=== PATIENT | female | born 1985 | race Caucasian/White ===

== ENCOUNTER → 2016-07-09 | Outpatient (CLI) | payer OTHER ==
[~2016-07-09] MED LIST: HYDR-5688 PO; NAPR1TAB9 PO; PRED20TA PO
[2016-07-09 14:32] LABS: BASO % 0.3 %; BASO ABS # 0.02 K/uL (0-0.2); COMPLETE YES; HEMATOCRIT 37.5 % (37-47); IG% 0.1 %; LYMPH % 30.1 %; LYMPH ABS # 2.18 K/uL (1.2-3.4); MEAN CELL VOLUME 82.8 fL (80-100); MEAN CORPUSCULAR HEMOGLOBIN 26.9 pg (25-34); MEAN CORPUSCULAR HGB CONC 32.5 g/dl (32-36); MEAN PLATELET VOLUME 9.8 fL (7.4-10.4); NEUT % 60.5 %; PLATELET COUNT 395 K/uL (130-400); RED BLOOD COUNT 4.53 M/uL (4.2-5.4); WHITE BLOOD COUNT 7.24 K/uL (4.8-10.8)
[2016-07-09 14:37] LABS: ALT/SGPT 26 U/L (12-78); AST/SGOT 19 U/L (15-37); BLOOD UREA NITROGEN 13 mg/dl (7-18); BUN/CREATININE RATIO 13.8 (10-20); CALCIUM 8.5 mg/dl (8.5-10.1); CARBON DIOXIDE 29 mmol/L (21-32); CHLORIDE 104 mmol/L (98-107); CREATININE 0.93 mg/dl (0.60-1.20); GLUCOSE 109 mg/dl (70-99); SODIUM 140 mmol/L (136-145)
[2016-07-09 14:40] LABS: ALB/GLOB RATIO 0.9 (0.9-2); ALKALINE PHOSPHATASE 74 U/L (45-117); C-REACTIVE PROTEIN 1.16 mg/dl (0-0.29); RHEUMATOID FACTOR < 10.0 U/mL (0-15)
[2016-07-09 19:06] LABS: LYME DISEASE AB IGG NEG (NEG); LYME DISEASE AB IGM NEG (NEG)
== END | disposition home or self-care (01) ==
LOC: C.LABPBG 11:41
PROVIDERS: ATTEND Family Medicine
DX: M25.50 Pain in unspecified joint (principal)

== ENCOUNTER 2021-08-02 03:23 | Observation (INO) ==
[2021-08-02] MEDS ORDERED: CEFEPIME 2,000 MG/20 ML VIAL IV STA (03:31)
--- NOTE | 2021-08-02 03:34 | Emergency Department Note ---
Impression & Plan Endocarditis ADMIT ED Provider Note HPI: The patient is a 35-year-old female with history of anxiety, bipolar disorder, history of recently diagnosed bacterial endocarditis, presents the emergency department complaining of generalized illness, weakness, and shortness of breath that has been worsening over the past 2 days since she left the [facility] AGAINST MEDICAL ADVICE where she was admitted for endocarditis and advised on a 6-week course of IV antibiotic therapy. Patient states that she became very anxious during her inpatient stay, states that she got "dope sick" and then left the hospital so that she could use IV narcotics. On arrival here to the ED the patient is anxious and tearful, she is saturating well on 2 L nasal cannula oxygen. Per EMS she was not hypoxic and this was placed for "comfort". Patient denies any current chest pain or shortness of breath, states that she got "sicker" over the past 2 days. States she was having some generalized body aches and a sensation of hot flash/subjective fever. On arrival here to the ED the patient is hypertensive, mildly tachycardic, she is otherwise in no acute distress on my initial evaluation. ROS: -General: Generalized illness, history of recently diagnosed endocarditis *10 point review systems was conducted and is otherwise negative unless stated above *Outpatient medications and allergy history reviewed PE: General: Alert HEENT: Normocephalic, atraumatic Eyes: Extraocular eye movement is intact, no scleral erythema Pulmonary: Clear to auscultation bilaterally, no wheezing Cardio: Tachycardic rate and regular rhythm GI: Abdomen is soft, nontender : No suprapubic tenderness MSK: No evidence of trauma or malformation of the extremities, no edema Skin: No evidence of rash Neuro: Alert, no focal deficits Psychiatric: Anxious/tearful cooperative cafeteria monitor: - An order was placed for continuous cardiac monitoring - Patient was noted to be in sinus rhythm with rate of 111 EKG: Rate: 102 Rhythm: Sinus tachycardia Intervals: Within normal limits ST changes: No ST elevation Time: 0336 CTA CHEST: Impression: There are small bilateral pleural effusions. Mild bilateral hilar lymphadenopathy Bilateral interlobular septal prominence suggestive of interstitial pulmonary edema 5.5 mm right upper lobe nodule seen on image 79, series 2. Radiologist: Jayme Jensen MD Medical Decision Making: Patient presented to the emergency department via EMS, she is anxious and tearful, states that she has felt unwell over the past 2 days since she signed out of [facility] AGAINST MEDICAL ADVICE where she was admitted for a prolonged course of antibiotics for endocarditis. Patient states that she does have a history of IV drug use, she left the hospital several days ago I do boys because she was feeling the need to use IV narcotics. Patient tells me her last use was earlier today when she used fentanyl via IV injection. On arrival here to the ED the patient is anxious and tearful, she is saturating well on 2 L nasal cannula oxygen. She denies any current chest pain or shortness of breath. IV was established, lab work ordered, IV fluids bolus ordered, patient was given a dose of IV Ativan for her anxiety. Lab work does not show any evidence of a significant leukocytosis, there is evidence of anemia with slightly low MCV at 78, unclear origin, patient denies any recent bleeding episodes, troponin is negative x1, EKG shows sinus tachycardia without acute ischemic changes. CT angiography of the chest does not show any evidence of pulmonary embolism or pulmonary infarct. Patient was initiated on broad-spectrum antibiotics with vancomycin and cefepime, blood cultures were drawn in the ED. Patient was given a liter of IV normal saline and none further secondary to hemodynamic stability. On my reassessment the patient is requesting methadone, this will be deferred to the inpatient service if determined appropriate. She tells me she does not have a prescription for this but she was previously on methadone at her last inpatient stay to [facility] she felt that this helped with her symptoms. I do feel that the patient should be admitted for IV antibiotics, she tells me she did have a diagnosis of endocarditis and had transesophageal echocardiogram that confirmed this at her outside hospital stay. Records will need to be obtained, patient will be admitted to the hospitalist service for IV antibiotics and cardiology consultation for further care. Patient was in agreement to the above plan she was admitted in stable condition. Diagnosis: 1. Endocarditis 2. Microcytic anemia 3. History of IV drug use 4. Anxiety Disposition: Admission Jean Serrato DO Emergency Medicine Past Med/Surg History Medical History (Updated 08/02/21 @ 05:57 by Jean Serrato DO) Anxiety History of bipolar disorder PCOS (polycystic ovarian syndrome) Surgical History History of section History of repair of ACL History of tubal ligation Family History Grandmother (Paternal) Breast cancer Grandfather (Maternal) Myocardial infarction Graves disease Grandfather (Paternal) Myocardial infarction Denies family history of Colon cancer Ovarian cancer Prostate cancer Social History Smoking Status: Current every day smoker packs per day: 1; Hx Alcohol Use: No Hx Substance Use: No marital status: Single Current Living Situation: Family Current Living Situation Comment: w/ children 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 Feels Safe at Home: Yes Dental Care, Regularly: No Physical Activity Frequency: Does not Exercise Seatbelt Use: sometimes Allergies Allergies Allergy/AdvReac Type Severity Reaction Status Date / Time No Known Allergies Allergy Unverified 03/11/19 18:48 Home Meds Home Medications Medication Instructions Recorded Confirmed No Known Home Medications 03/11/19 03/11/19 Results & Data (ED) Vital Signs Vital Signs - 24 hr 08/02/21 03:35 08/02/21 03:37 08/02/21 04:00 Temperature 37 C Temperature Source Oral Pulse Rate 89 101 H 97 H Pulse Rate from SpO2 Sensor 91 H 98 H Respiratory Rate 21 18 18 Respiratory Effort / Characteristics SOB on Exertion Respiratory Depth Shallow Blood Pressure 188/132 H Blood Pressure Mean 150 Pulse Oximetry 99 100 100 Oxygen Delivery Method Nasal Cannula Oxygen Flow Rate 2 Sepsis Recent Fever Within 48 Hours No Sepsis New/Unexplained Change in Mental Status Yes Sepsis Action Taken by Nursing No Action Required 08/02/21 04:30 08/02/21 05:30 08/02/21 05:35 Temperature Temperature Source Pulse Rate 96 H 103 H 107 H Pulse Rate from SpO2 Sensor Respiratory Rate 19 33 H 21 Respiratory Effort / Characteristics Respiratory Depth Blood Pressure 180/119 H Blood Pressure Mean 139 Pulse Oximetry Oxygen Delivery Method Oxygen Flow Rate Sepsis Recent Fever Within 48 Hours Sepsis New/Unexplained Change in Mental Status Sepsis Action Taken by Nursing 08/02/21 05:41 Temperature Temperature Source Pulse Rate Pulse Rate from SpO2 Sensor Respiratory Rate Respiratory Effort / Characteristics SOB on Exertion Respiratory Depth Blood Pressure Blood Pressure Mean Pulse Oximetry Oxygen Delivery Method Oxygen Flow Rate Sepsis Recent Fever Within 48 Hours Sepsis New/Unexplained Change in Mental Status Sepsis Action Taken by Nursing Laboratory Data Result diagrams: 08/02/21 03:30 08/02/21 03:30 Lab Results 08/02/21 08/02/21 08/02/21 Range/Units 03:30 03:30 03:30 WBC 6.53 (4.8-10.8) K/uL RBC 3.71 L (4.2-5.4) M/uL Hgb 8.4 L (12.0-16.0) g/dL Hct 29.2 L (37-47) % MCV 78.7 L (80-100) fL MCH 22.6 L (25-34) pg MCHC 28.8 L (32-36) g/dL RDW Std Deviation 48.5 H (36.4-46.3) fL RDW Coeff of Alexia 16.8 H (11.5-14.5) % Plt Count 525 H (130-400) K/uL MPV 8.8 (7.4-10.4) fL Immature Gran % (Auto) 0.3 % Neut % (Auto) 63.3 % Lymph % (Auto) 27.6 % [place] % (Auto) 5.7 % Eos % (Auto) 2.6 % Baso % (Auto) 0.5 % Neut # (Auto) 4.14 (1.4-6.5) K/uL Lymph # (Auto) 1.80 (1.2-3.4) K/uL [place] # (Auto) 0.37 (0.11-0.59) K/uL Eos # (Auto) 0.17 (0-0.5) K/uL Baso # (Auto) 0.03 (0-0.2) K/uL Immature Gran # (Auto) 0.02 (0.00-0.02) K/uL Hypochromasia Present PT 11.0 (9.0-12.0) Seconds INR 1.1 (0.9-1.1) APTT 21.0 (21.0-31.0) Seconds PTT Ratio 0.8 Sodium 137 (136-145) mmol/L Potassium 3.5 (3.5-5.1) mmol/L Chloride 102 (98-107) mmol/L Carbon Dioxide 28 (21-32) mmol/L Anion Gap 7 (3-11) BUN 17 (6-23) mg/dl Creatinine 0.75 (0.6-1.2) mg/dl Est Cr Clr Drug Dosing 151.1 ml/min Est GFR ( Amer) 120.5 ml/min Est GFR (Non-Af Amer) 104.0 ml/min BUN/Creatinine Ratio 22.7 H (10-20) Glucose 100 H (70-99(Fasting)) mg/dl Lactate (0.4-2.0) mmol/L Calcium 8.6 (8.5-10.1) mg/dl Magnesium 1.9 (1.7-2.4) mg/dl Total Bilirubin 0.5 (0.2-1.0) mg/dl AST 12 L (13-39) U/L ALT 7 (7-52) U/L Alkaline Phosphatase 56 (34-104) U/L Troponin I 0.03 (0-0.04) ng/ml Total Protein 6.7 (6.0-8.3) gm/dl Albumin 2.8 L (3.4-5.0) gm/dl Globulin 3.9 (2.5-4.0) gm/dl Albumin/Globulin Ratio 0.7 L (0.9-2) Procalcitonin (0-0.5) ng/ml SARS-CoV-2, RNA, NAAT (NEGATIVE) 08/02/21 08/02/21 08/02/21 Range/Units 03:30 03:50 04:20 WBC (4.8-10.8) K/uL RBC (4.2-5.4) M/uL Hgb (12.0-16.0) g/dL Hct (37-47) % MCV (80-100) fL MCH (25-34) pg MCHC (32-36) g/dL RDW Std Deviation (36.4-46.3) fL RDW Coeff of Alexia (11.5-14.5) % Plt Count (130-400) K/uL MPV (7.4-10.4) fL Immature Gran % (Auto) % Neut % (Auto) % Lymph % (Auto) % [place] % (Auto) % Eos % (Auto) % Baso % (Auto) % Neut # (Auto) (1.4-6.5) K/uL Lymph # (Auto) (1.2-3.4) K/uL [place] # (Auto) (0.11-0.59) K/uL Eos # (Auto) (0-0.5) K/uL Baso # (Auto) (0-0.2) K/uL Immature Gran # (Auto) (0.00-0.02) K/uL Hypochromasia PT (9.0-12.0) Seconds INR (0.9-1.1) APTT (21.0-31.0) Seconds PTT Ratio Sodium (136-145) mmol/L Potassium (3.5-5.1) mmol/L Chloride (98-107) mmol/L Carbon Dioxide (21-32) mmol/L Anion Gap (3-11) BUN (6-23) mg/dl Creatinine (0.6-1.2) mg/dl Est Cr Clr Drug Dosing ml/min Est GFR ( Amer) ml/min Est GFR (Non-Af Amer) ml/min BUN/Creatinine Ratio (10-20) Glucose (70-99(Fasting)) mg/dl Lactate 0.8 (0.4-2.0) mmol/L Calcium (8.5-10.1) mg/dl Magnesium (1.7-2.4) mg/dl Total Bilirubin (0.2-1.0) mg/dl AST (13-39) U/L ALT (7-52) U/L Alkaline Phosphatase (34-104) U/L Troponin I (0-0.04) ng/ml Total Protein (6.0-8.3) gm/dl Albumin (3.4-5.0) gm/dl Globulin (2.5-4.0) gm/dl Albumin/Globulin Ratio (0.9-2) Procalcitonin 0.19 (0-0.5) ng/ml SARS-CoV-2, RNA, NAAT NEGATIVE (NEGATIVE) Administered Medications Vancomycin HCl 2,000 mg/ (Sodium Chloride) 540 mls @ 200 mls/hr IV ONE STA Stop: 08/02/21 07:23 Last Admin: 08/02/21 05:33 Dose: 200 mls/hr Documented by: [id number] Discontinued Medications Sodium Chloride (Nss 1000ml) 1,000 mls @ 999 mls/hr IV .[id number] SHIRLEY Stop: 08/02/21 04:45 Last Admin: 08/02/21 05:35 Dose: 999 mls/hr Documented by: [id number] Cefepime HCl (Maxipime) 2,000 mg in 20 mls @ 5 mls/min IV NOW STA; Protocol Stop: 08/02/21 03:34 Last Admin: 08/02/21 04:04 Dose: 5 mls/min Documented by: [id number] Lorazepam (Ativan) 1 mg in 2 mls @ 2 mls/min IV NOW STA Stop: 08/02/21 05:21 Last Admin: 08/02/21 05:31 Dose: 2 mls/min Documented by: [id number] Ioversol (Optiray 320 125ml) 119 ml IV ONCE ONE Stop: 08/02/21 05:13 Last Admin: 08/02/21 05:12 Dose: 1 ml Documented by: [id number] Discharge Plan Visit Data Chief Complaint: Infection Stated Complaint: BREATHING DIFFICULTY ED Provider: Jean Serrato Discharge Problem: Endocarditis Forms Stand Alone Forms: [facility] Prescriptions Prescriptions: No Action No Known Home Medications RF: 0 Referrals Referrals: Stacey Arce MD [Primary Care Provider] - Discharge Problem: Endocarditis Qualifiers: Endocarditis type: infective Infective endocarditis organism: unspecified organism Chronicity: subacute Qualified Code(s): I33.0 - Acute and subacute infective endocarditis
[2021-08-02] MEDS ORDERED: SODIUM CHLORIDE 0.9% 1000ML 1,000 ML IV SCH (03:45)
[2021-08-02] MEDS ORDERED: VANCOMYCIN CONSULT ACTIVE PRN (03:52)
[2021-08-02 03:55] LABS: INR 1.1 (0.9-1.1); Partial Thromboplastin Ratio 0.8
[2021-08-02] MEDS ORDERED: VANCOMYCIN HCL 2,000 MG in SODIUM CHLORIDE 0.9% 500 ML IV SCH (04:00)
[2021-08-02 04:05] LABS: Troponin I 0.03 ng/ml (0-0.04)
[2021-08-02 04:16] LABS: Albumin Globulin Ratio 0.7 (0.9-2); Albumin Level 2.8 gm/dl (3.4-5.0); BUN Creatinine Ratio 22.7 (10-20); Bilirubin,Total 0.5 mg/dl (0.2-1.0); Calcium 8.6 mg/dl (8.5-10.1); Creatinine Clr Calc Pharmacy 151.1 ml/min; Est GFR (African American) 120.5 ml/min; Globulin 3.9 gm/dl (2.5-4.0); Magnesium 1.9 mg/dl (1.7-2.4); Total Protein 6.7 gm/dl (6.0-8.3)
[2021-08-02 04:19] LABS: Hematocrit (blood only) 29.2 % (37-47); Hemoglobin 8.4 g/dL (12.0-16.0); Mean Corpuscular Hemoglobin 22.6 pg (25-34); Mean Corpuscular Hgb Conc 28.8 g/dL (32-36); Mean Corpuscular Volume 78.7 fL (80-100); Mean Platelet Volume 8.8 fL (7.4-10.4); Platelet Count 525 K/uL (130-400); RDW Coefficient of Variation 16.8 % (11.5-14.5); RDW Standard Deviation 48.5 fL (36.4-46.3); Red Blood Count 3.71 M/uL (4.2-5.4); White Blood Count 6.53 K/uL (4.8-10.8)
[2021-08-02 04:22] LABS: Basophils # (auto) 0.03 K/uL (0-0.2); Basophils % (auto) 0.5 %; Eosinophils # (auto) 0.17 K/uL (0-0.5); Eosinophils % (auto) 2.6 %; Hypochromasia Present; Immature Granulocytes # (auto) 0.02 K/uL (0.00-0.02); Immature Granulocytes % (auto) 0.3 %; Lymphocytes % (auto) 27.6 %; Monocytes # (auto) 0.37 K/uL (0.11-0.59); Monocytes % (auto) 5.7 %; Neutrophils # (auto) 4.14 K/uL (1.4-6.5); Neutrophils % (auto) 63.3 %
[2021-08-02] MEDS ORDERED: VANCOMYCIN HCL 2,000 MG in SODIUM CHLORIDE 0.9% 500 ML IV STA (04:42)
[2021-08-02 05:01] LABS: Potassium 3.5 mmol/L (3.5-5.1)
[2021-08-02] MEDS ORDERED: OPTIRAY 320 125ml IV ONE (05:12)
[2021-08-02] MEDS ORDERED: LORazepam 1 MG/2 ML VIAL IV STA (05:20)
--- NOTE | 2021-08-02 06:26 | History & Physical Report ---
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 Patient has been to several other healthcare facilities and has left AMA due to opioid withdrawal symptoms. Uncertain at this time when she was first diagnosed and what treatment she has received. No conduction abnormalities. She does present with a complaint of worsening shortness of breath. Does not appear to be in overt cardiac failure. -Admit to medical with telemetry -Maintain contact precautions for presumed MRSA -Follow blood cultures obtained from ER -Check ESR and CRP -Request records from [facility] to better establish timeline of diagnosis and treatments given -Will repeat echocardiogram to assess for valve failure - no murmur, no overt evidence of failure but patient is complaining of significant SOB -Daily EKG to assess for conduction abnormalities that may develop with endocarditis -Vancomycin -ID Consultation to assist with management -Discussed with patient that deferring management of this issue could lead to permanent damage to her heart, valves or . Encouraged her to stay hospitalized as long as necessary to receive appropriate treatment. (2) Opioid withdrawal: Plan: Patient with history of IV Fentanyl use - states she injects every 4 hours. Has left multiple facilities secondary to opioid withdrawal symptoms -May benefit from starting Suboxone or Subutex -Will order Clonidine 0.1mg po BID to assist with withdrawal symptoms (3) Anemia: Plan: Patient with microcytic/hypochromic anemia with Hgb of 8.4, Hct=29.4. She denies active bleeding. Was told at another facility that her blood counts were low - she thought they were 7 at that time. States that her mother has a diagnosis of Thalassemia but she is unaware of any such diagnosis in herself. -Check iron studies -Monitor CBC - transfuse for active bleed, symptomatic anemia or Hgb <7 (4) History of bipolar disorder: Plan: Patient reports feeling anxious and depressed at present. Not on medication -Would benefit from ongoing Psychiatric treatment for dual diagnosis (5) Anxiety: Plan: Presently not on any medication for anxiety -Hydroxyzine 25mg po qid as needed for anxiety Plan: F/E/N - Heplock, monitor electrolytes, regular diet as tolerated Ppx - Lovenox 40 BID for weight, BMI=46 Code - Full per discussion with patient Dispo - Admit to medical with telemetry History of Present Illness Chief Complaint: sickness Primary Care Provider: Stacey Arce MD Michelle Salcido is a 35yo C female with history of IV opiate abuse, recently diagnosed with bacterial endocarditis. She was receiving care at [facility] as well as [facility] for this issue. Unfortunately, she has left the hospital against medical advice on multiple occasions due to feeling symptoms of opioid withdrawal. 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 Is uncertain which valve is involved. She denies WILL, visual changes, rashes, lesions, edema. She does have SOB that has been worsening over the last 2-3 days as well as feeling of weakness. Patient states that her problems began "a while ago" when she injected into her right foot. She developed severe pain in her right foot then her right knee. After that she began having fevers, chills, body aches and fatigue. 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 She was treated with Methadone for 10 years. She stopped her Methadone and started using IV Fentanyl 7 months ago. She reports injecting IV Fentanyl every 3-4 hours. Allergies Allergy/AdvReac Type Severity Reaction Status Date / Time No Known Allergies Allergy Unverified 03/11/19 18:48 Home Medications Medication Instructions Recorded Confirmed Type No Known Home Medications 03/11/19 03/11/19 History Past Med/Surg History Medical History (Updated 08/02/21 @ 06:53 by Leigha Poe DO) Anemia Anxiety History of bipolar disorder PCOS (polycystic ovarian syndrome) Surgical History History of section History of repair of ACL History of tubal ligation Family History Grandmother (Paternal) Breast cancer Grandfather (Maternal) Myocardial infarction Graves disease Grandfather (Paternal) Myocardial infarction Denies family history of Colon cancer Ovarian cancer Prostate cancer Social History Smoking Status: Current every day smoker packs per day: 1; Second Hand Exposure: No; Do You Dip or Chew Tobacco: No; Tobacco Cessation Education Requested by Patient: No Hx Alcohol Use: No Hx Substance Use: Yes Last Used Substance: Days (ago) Last Used Substance Other:: 1 Substance Use Type Other:: fentanyl Preferred Language: Pakistani Communication Ability: Effective Frame Feeder Required: No Beliefs That Will Affect Care: None marital status: Single Current Living Situation: Spouse Current Living Situation Comment: w/ children 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 Resting comfortably Skin: warm, dry, intact, no rashes or lesions, No [place] lesions or [place]ers nodes noted HEENT: NC/AT, PERRL, EOMI, anicteric sclera, conjunctiva without injection, external ear normal to inspection and nontender, nares patent, moist mucus membranes, dentures in place, no oropharyngeal lesions, neck supple, trachea midline, no LAD, no thyromegaly, no JVD Heart: +S1/S2, regular, tachycardic, no m/r/g Lungs: equal air entry bilaterally, no rales/rhonchi/wheezes Abd: +BS, soft, NT/ND, no masses/organomegaly/ascites Ext: warm, 2+ pulses in UE/LE bilaterally, no clubbing/cyanosis or edema Neuro: nonfocal, patient AA&O x 4, speech intact, no facial droop, moving all extremities on command with equal strength 5/5 Results & Data Results & Data ([facility]) Vital Signs (Past 12 Hours) Vital Signs Temp Pulse Resp BP Pulse Ox 08/02/21 05:35 107 H 21 180/119 H 08/02/21 05:30 103 H 33 H 08/02/21 04:30 96 H 19 08/02/21 04:00 97 H 18 100 08/02/21 03:37 37 C 101 H 18 188/132 H 100 08/02/21 03:35 89 21 99 Laboratory Results Laboratory Results WBC 6.53 K/uL (4.8-10.8) 08/02/21 03:30 RBC 3.71 M/uL (4.2-5.4) L 08/02/21 03:30 Hgb 8.4 g/dL (12.0-16.0) L 08/02/21 03:30 Hct 29.2 % (37-47) L 08/02/21 03:30 MCV 78.7 fL (80-100) L 08/02/21 03:30 MCH 22.6 pg (25-34) L 08/02/21 03:30 MCHC 28.8 g/dL (32-36) L 08/02/21 03:30 RDW Std Deviation 48.5 fL (36.4-46.3) H 08/02/21 03:30 RDW Coeff of Alexia 16.8 % (11.5-14.5) H 08/02/21 03:30 Plt Count 525 K/uL (130-400) H 08/02/21 03:30 MPV 8.8 fL (7.4-10.4) 08/02/21 03:30 Immature Gran % (Auto) 0.3 % 08/02/21 03:30 Neut % (Auto) 63.3 % 08/02/21 03:30 Lymph % (Auto) 27.6 % 08/02/21 03:30 [place] % (Auto) 5.7 % 08/02/21 03:30 Eos % (Auto) 2.6 % 08/02/21 03:30 Baso % (Auto) 0.5 % 08/02/21 03:30 Neut # (Auto) 4.14 K/uL (1.4-6.5) 08/02/21 03:30 Lymph # (Auto) 1.80 K/uL (1.2-3.4) 08/02/21 03:30 [place] # (Auto) 0.37 K/uL (0.11-0.59) 08/02/21 03:30 Eos # (Auto) 0.17 K/uL (0-0.5) 08/02/21 03:30 Baso # (Auto) 0.03 K/uL (0-0.2) 08/02/21 03:30 Immature Gran # (Auto) 0.02 K/uL (0.00-0.02) 08/02/21 03:30 Hypochromasia Present 08/02/21 03:30 PT 11.0 Seconds (9.0-12.0) 08/02/21 03:30 INR 1.1 (0.9-1.1) 08/02/21 03:30 APTT 21.0 Seconds (21.0-31.0) 08/02/21 03:30 PTT Ratio 0.8 08/02/21 03:30 Sodium 137 mmol/L (136-145) 08/02/21 03:30 Potassium 3.5 mmol/L (3.5-5.1) 08/02/21 03:30 Chloride 102 mmol/L (98-107) 08/02/21 03:30 Carbon Dioxide 28 mmol/L (21-32) 08/02/21 03:30 Anion Gap 7 (3-11) 08/02/21 03:30 BUN 17 mg/dl (6-23) 08/02/21 03:30 Creatinine 0.75 mg/dl (0.6-1.2) 08/02/21 03:30 Est Cr Clr Drug Dosing 151.1 ml/min 08/02/21 03:30 Est GFR ( Amer) 120.5 ml/min 08/02/21 03:30 Est GFR (Non-Af Amer) 104.0 ml/min 08/02/21 03:30 BUN/Creatinine Ratio 22.7 (10-20) H 08/02/21 03:30 Glucose 100 mg/dl (70-99(Fasting)) H 08/02/21 03:30 Lactate 0.8 mmol/L (0.4-2.0) 08/02/21 03:50 Calcium 8.6 mg/dl (8.5-10.1) 08/02/21 03:30 Magnesium 1.9 mg/dl (1.7-2.4) 08/02/21 03:30 Total Bilirubin 0.5 mg/dl (0.2-1.0) 08/02/21 03:30 AST 12 U/L (13-39) L 08/02/21 03:30 ALT 7 U/L (7-52) 08/02/21 03:30 Alkaline Phosphatase 56 U/L (34-104) 08/02/21 03:30 Troponin I 0.03 ng/ml (0-0.04) 08/02/21 03:30 Total Protein 6.7 gm/dl (6.0-8.3) 08/02/21 03:30 Albumin 2.8 gm/dl (3.4-5.0) L 08/02/21 03:30 Globulin 3.9 gm/dl (2.5-4.0) 08/02/21 03:30 Albumin/Globulin Ratio 0.7 (0.9-2) L 08/02/21 03:30 Procalcitonin 0.19 ng/ml (0-0.5) 08/02/21 03:30 SARS-CoV-2, RNA, NAAT NEGATIVE (NEGATIVE) 08/02/21 04:20 ECG Additional Comments: No conduction abnormality Code Status & VTE Plan VTE Prophylaxis Plan VTE Prophylaxis will be ordered: Yes PG Care Time/CCT Total # of Minutes Spent Total Time Spent with Patient: Total time spent is greater than 50% in coordination of care (as documented) at patient's floor/unit and/or counseling patient: Coding Level of Care Code 02147 Initial Inpt Care Lvl 3 Diagnoses Endocarditis I33.0 Chronicity: subacute Endocarditis type: infective Infective endocarditis organism: unspecified organism Opioid withdrawal F11.23 Anemia D64.9 History of bipolar disorder Z86.59 Anxiety F41.9 (1) Endocarditis Chronicity: subacute Endocarditis type: infective Infective endocarditis organism: unspecified organism Qualified Code(s): I33.0 - Acute and subacute infective endocarditis
--- NOTE | 2021-08-02 08:17 | CT Scan Report ---
CT angio chest PE protocol CLINICAL HISTORY: PE, history of endocarditis TECHNIQUE: Multidetector row helical CT of the chest was performed. Coronal and sagittal reformations were obtained. Coronal and sagittal MIPS were obtained from the axial data set and were submitted fo r review. Automated dose lowering techniques and/or adjustment according to patient size were utiliz ed for this exam. Comparison: None available at the time of this dictation. FINDINGS: Lungs and pleura: Small bilateral pleural effusions. Smooth interlobular septal thickening is seen. I ncidental note is made of a 5 mm nodule in the right upper lobe (series 4 image 195). Heart and pericardium: Heart size is normal. No pericardial effusion. Vessels: No evidence of pulmonary embolism. The pulmonary trunk measures 32 mm in diameter. Mediastinum and garth: Subcentimeter lymph nodes are seen. Chest wall and lower neck: Unremarkable. Abdomen: Unremarkable. Bones: Unremarkable. IMPRESSION: 1. No evidence of pulmonary embolism. 2. Moderate pulmonary edema with interlobular septal thickening and small bilateral pleural effusion s. 3. Enlarged pulmonary trunk compatible with pulmonary hypertension. ACT 112: Negative or not required by law. Electronically signed by: Hiro Santoyo M.D. 08/02/2021 8:16 AM
[2021-08-02] MEDS ORDERED: BUPRENORPHINE/NALOXONE 2/0.5MG 1 TAB PO ONE (08:45)
[2021-08-02] MEDS ORDERED: METHADONE HCL 5 MG TAB PO STA (09:45)
[2021-08-02] MEDS ORDERED: LORazepam 0.5 MG TAB PO PRN (11:26)
--- NOTE | 2021-08-02 16:46 | Med Student Discharge Summary ---
Date of Service August 02, 2021 Admission HPI Per Admitting Provider Michelle Salcido is a 35yo C female with history of IV opiate abuse, recently diagnosed with bacterial endocarditis. She was receiving care at [facility] as well as [facility] for this issue. Unfortunately, she has left the hospital against medical advice on multiple occasions due to feeling symptoms of opioid withdrawal. 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 Is uncertain which valve is involved. She denies WILL, visual changes, rashes, lesions, edema. She does have SOB that has been worsening over the last 2-3 days as well as feeling of weakness. Patient states that her problems began "a while ago" when she injected into her right foot. She developed severe pain in her right foot then her right knee. After that she began having fevers, chills, body aches and fatigue. 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 She was treated with Methadone for 10 years. She stopped her Methadone and started using IV Fentanyl 7 months ago. She reports injecting IV Fentanyl every 3-4 hours. Admission Exam (Per Admitting) Constitutional WD/WN, vitals as above Eyes PERRL, conjunctivae normal, anicteric sclerae Neck trachea midline, no thyromegaly Respiratory + respiratory distress Cardiovascular Rate/Rhythm: + tachycardic Psychiatric Affect: + anxious affect Discharge Data Consultations 08/02/21 05:51 ED Decision to Admit Stat 08/02/21 06:21 Consult Health Information Management Routine Hospital Course (1) Endocarditis: (2) Opioid withdrawal: (3) Anxiety: Michelle is a 35 year old woman with a history of anxiety disorder, bipolar type I, IV fentanyl use, and recent diagnosis of MRSA endocarditis who presented to the emergency department with shortness of breath. Michelle eloped around noon on 08/02/21. When her nurse went to check on her, she was not in her room or bathroom. Security searched the hospital and could not find her. There is concern that she left with her IV line in, charge nurse is aware. Shortness of breath - Chest CTA showed no evidence of PE, moderate pulmonary edema and small bilateral pleural effusions, pulmonary HTN MRSA endocarditis - Per [facility], patient has MRSA endocarditis - Patient was given 1 dose of cefepime/vancomycin Opioid withdrawal symptoms and anxiety - patient was very distressed by her withdrawal symptoms - Patient received 10 mg methadone and 1.5 mg of lorazepam; requested and then refused suboxone Discharge Plan Discharge Items Patient Disposition: Against Medical Advice Reason For Visit: ENDOCARDITIS Follow-up/Referrals: Stacey Arce MD [Primary Care Provider] - Stand-Alone Forms: My [facility] Improve Digital, Smoking Cessation Medications and DC Order Prescriptions: No Action No Known Home Medications RF: 0 Discharge Orders: Left Against Medical Advice (Routine); Ordered 08/02/21 Ordered By: Jean Kingston Admission Data Admit Date/Time: 08/02/21 06:21 Attending Provider: Chika Jensen Admit Provider: Leigha Poe Primary Care Provider: Stacey Arce Other Providers: Leigha Poe Supervising Attestation Medical Student Supervision Note: I was personally present during medical student patient encounter and independently interviewed and examined the patient and verified the rojo history and physical, reviewed labs and image studies, discussed the case with Jon Santiago and agree with the findings and care plan. Shortness of breath - with noted pleural effusion/pulmonary hypertension - ordered EChO - not done before patient eloped. MRSA Infective endocarditis- ? diastolic at tricuspid region. was kept on IV vanco while at the hospital Known h/o Nocturnal hypoxia with snoring - in setting of ?pulmonary HTN - should get sleep study when able. IVDU - Needs helps and aims to get clean but with strong withdrawal symptoms and eloped. Bipolar ds with anxiety - has been on multiple meds in past - didn't help much and some snowed her. Was given lorazepam to help with anxiety Results & Data Laboratory Data Result diagrams: 08/02/21 03:30 08/02/21 03:30 Lab Results 08/02/21 08/02/21 08/02/21 Range/Units 03:30 03:30 03:30 WBC 6.53 (4.8-10.8) K/uL RBC 3.71 L (4.2-5.4) M/uL Hgb 8.4 L (12.0-16.0) g/dL Hct 29.2 L (37-47) % MCV 78.7 L (80-100) fL MCH 22.6 L (25-34) pg MCHC 28.8 L (32-36) g/dL RDW Std Deviation 48.5 H (36.4-46.3) fL RDW Coeff of Alexia 16.8 H (11.5-14.5) % Plt Count 525 H (130-400) K/uL MPV 8.8 (7.4-10.4) fL Immature Gran % (Auto) 0.3 % Neut % (Auto) 63.3 % Lymph % (Auto) 27.6 % Wilkes % (Auto) 5.7 % Eos % (Auto) 2.6 % Baso % (Auto) 0.5 % Neut # (Auto) 4.14 (1.4-6.5) K/uL Lymph # (Auto) 1.80 (1.2-3.4) K/uL Wilkes # (Auto) 0.37 (0.11-0.59) K/uL Eos # (Auto) 0.17 (0-0.5) K/uL Baso # (Auto) 0.03 (0-0.2) K/uL Immature Gran # (Auto) 0.02 (0.00-0.02) K/uL Hypochromasia Present PT 11.0 (9.0-12.0) Seconds INR 1.1 (0.9-1.1) APTT 21.0 (21.0-31.0) Seconds PTT Ratio 0.8 Sodium 137 (136-145) mmol/L Potassium 3.5 (3.5-5.1) mmol/L Chloride 102 (98-107) mmol/L Carbon Dioxide 28 (21-32) mmol/L Anion Gap 7 (3-11) BUN 17 (6-23) mg/dl Creatinine 0.75 (0.6-1.2) mg/dl Est Cr Clr Drug Dosing 151.1 ml/min Est GFR ( Amer) 120.5 ml/min Est GFR (Non-Af Amer) 104.0 ml/min BUN/Creatinine Ratio 22.7 H (10-20) Glucose 100 H (70-99(Fasting)) mg/dl Lactate (0.4-2.0) mmol/L Calcium 8.6 (8.5-10.1) mg/dl Magnesium 1.9 (1.7-2.4) mg/dl Total Bilirubin 0.5 (0.2-1.0) mg/dl AST 12 L (13-39) U/L ALT 7 (7-52) U/L Alkaline Phosphatase 56 (34-104) U/L Troponin I 0.03 (0-0.04) ng/ml B-Natriuretic Peptide (0-100) pg/ml Total Protein 6.7 (6.0-8.3) gm/dl Albumin 2.8 L (3.4-5.0) gm/dl Globulin 3.9 (2.5-4.0) gm/dl Albumin/Globulin Ratio 0.7 L (0.9-2) Procalcitonin (0-0.5) ng/ml SARS-CoV-2, RNA, NAAT (NEGATIVE) 08/02/21 08/02/21 08/02/21 Range/Units 03:30 03:50 04:20 WBC (4.8-10.8) K/uL RBC (4.2-5.4) M/uL Hgb (12.0-16.0) g/dL Hct (37-47) % MCV (80-100) fL MCH (25-34) pg MCHC (32-36) g/dL RDW Std Deviation (36.4-46.3) fL RDW Coeff of Alexia (11.5-14.5) % Plt Count (130-400) K/uL MPV (7.4-10.4) fL Immature Gran % (Auto) % Neut % (Auto) % Lymph % (Auto) % Wilkes % (Auto) % Eos % (Auto) % Baso % (Auto) % Neut # (Auto) (1.4-6.5) K/uL Lymph # (Auto) (1.2-3.4) K/uL Wilkes # (Auto) (0.11-0.59) K/uL Eos # (Auto) (0-0.5) K/uL Baso # (Auto) (0-0.2) K/uL Immature Gran # (Auto) (0.00-0.02) K/uL Hypochromasia PT (9.0-12.0) Seconds INR (0.9-1.1) APTT (21.0-31.0) Seconds PTT Ratio Sodium (136-145) mmol/L Potassium (3.5-5.1) mmol/L Chloride (98-107) mmol/L Carbon Dioxide (21-32) mmol/L Anion Gap (3-11) BUN (6-23) mg/dl Creatinine (0.6-1.2) mg/dl Est Cr Clr Drug Dosing ml/min Est GFR ( Amer) ml/min Est GFR (Non-Af Amer) ml/min BUN/Creatinine Ratio (10-20) Glucose (70-99(Fasting)) mg/dl Lactate 0.8 (0.4-2.0) mmol/L Calcium (8.5-10.1) mg/dl Magnesium (1.7-2.4) mg/dl Total Bilirubin (0.2-1.0) mg/dl AST (13-39) U/L ALT (7-52) U/L Alkaline Phosphatase (34-104) U/L Troponin I (0-0.04) ng/ml B-Natriuretic Peptide (0-100) pg/ml Total Protein (6.0-8.3) gm/dl Albumin (3.4-5.0) gm/dl Globulin (2.5-4.0) gm/dl Albumin/Globulin Ratio (0.9-2) Procalcitonin 0.19 (0-0.5) ng/ml SARS-CoV-2, RNA, NAAT NEGATIVE (NEGATIVE) 08/02/21 Range/Units 11:58 WBC (4.8-10.8) K/uL RBC (4.2-5.4) M/uL Hgb (12.0-16.0) g/dL Hct (37-47) % MCV (80-100) fL MCH (25-34) pg MCHC (32-36) g/dL RDW Std Deviation (36.4-46.3) fL RDW Coeff of Alexia (11.5-14.5) % Plt Count (130-400) K/uL MPV (7.4-10.4) fL Immature Gran % (Auto) % Neut % (Auto) % Lymph % (Auto) % Wilkes % (Auto) % Eos % (Auto) % Baso % (Auto) % Neut # (Auto) (1.4-6.5) K/uL Lymph # (Auto) (1.2-3.4) K/uL Wilkes # (Auto) (0.11-0.59) K/uL Eos # (Auto) (0-0.5) K/uL Baso # (Auto) (0-0.2) K/uL Immature Gran # (Auto) (0.00-0.02) K/uL Hypochromasia PT (9.0-12.0) Seconds INR (0.9-1.1) APTT (21.0-31.0) Seconds PTT Ratio Sodium (136-145) mmol/L Potassium (3.5-5.1) mmol/L Chloride (98-107) mmol/L Carbon Dioxide (21-32) mmol/L Anion Gap (3-11) BUN (6-23) mg/dl Creatinine (0.6-1.2) mg/dl Est Cr Clr Drug Dosing ml/min Est GFR ( Amer) ml/min Est GFR (Non-Af Amer) ml/min BUN/Creatinine Ratio (10-20) Glucose (70-99(Fasting)) mg/dl Lactate (0.4-2.0) mmol/L Calcium (8.5-10.1) mg/dl Magnesium (1.7-2.4) mg/dl Total Bilirubin (0.2-1.0) mg/dl AST (13-39) U/L ALT (7-52) U/L Alkaline Phosphatase (34-104) U/L Troponin I (0-0.04) ng/ml B-Natriuretic Peptide 170 H (0-100) pg/ml Total Protein (6.0-8.3) gm/dl Albumin (3.4-5.0) gm/dl Globulin (2.5-4.0) gm/dl Albumin/Globulin Ratio (0.9-2) Procalcitonin (0-0.5) ng/ml SARS-CoV-2, RNA, NAAT (NEGATIVE) Chest CTA 08/02/21 03:32 CT angio chest PE protocol CLINICAL HISTORY: PE, history of endocarditis TECHNIQUE: Multidetector row helical CT of the chest was performed. Coronal and sagittal reformations were obtained. Coronal and sagittal MIPS were obtained from the axial data set and were submitted for review. Automated dose lowering techniques and/or adjustment according to patient size were utilized for this exam. Comparison: None available at the time of this dictation. FINDINGS: Lungs and pleura: Small bilateral pleural effusions. Smooth interlobular septal thickening is seen. Incidental note is made of a 5 mm nodule in the right upper lobe (series 4 image 195). Heart and pericardium: Heart size is normal. No pericardial effusion. Vessels: No evidence of pulmonary embolism. The pulmonary trunk measures 32 mm in diameter. Mediastinum and garth: Subcentimeter lymph nodes are seen. Chest wall and lower neck: Unremarkable. Abdomen: Unremarkable. Bones: Unremarkable. IMPRESSION: 1. No evidence of pulmonary embolism. 2. Moderate pulmonary edema with interlobular septal thickening and small bilateral pleural effusions. 3. Enlarged pulmonary trunk compatible with pulmonary hypertension. ACT 112: Negative or not required by law. Electronically signed by: Hiro Santoyo M.D. 08/02/2021 8:16 AM Administered Medications Discontinued Medications Buprenorphine/Naloxone (Buprenorphine/Naloxone 2/0.5mg 1 Tab) 2 tab PO 0845 ONE Stop: 08/02/21 08:46 Last Admin: 08/02/21 08:56 Dose: 2 tab Documented by: [id number] Sodium Chloride (Nss 1000ml) 1,000 mls @ 999 mls/hr IV .Q1H1M SHIRLEY Stop: 08/02/21 04:45 Last Infusion: 08/02/21 06:42 Dose: 0 mls/hr Documented by: [id number] Admin: 08/02/21 05:35 Dose: 999 mls/hr Documented by: [id number] Cefepime HCl (Maxipime) 2,000 mg in 20 mls @ 5 mls/min IV NOW STA; Protocol Stop: 08/02/21 03:34 Last Admin: 08/02/21 04:04 Dose: 5 mls/min Documented by: [id number] Vancomycin HCl 2,000 mg/ (Sodium Chloride) 540 mls @ 200 mls/hr IV ONE STA Stop: 08/02/21 07:23 Last Infusion: 08/02/21 06:37 Dose: 0 mls/hr Documented by: [id number] Admin: 08/02/21 05:33 Dose: 200 mls/hr Documented by: [id number] Lorazepam (Ativan) 1 mg in 2 mls @ 2 mls/min IV NOW STA Stop: 08/02/21 05:21 Last Admin: 08/02/21 05:31 Dose: 2 mls/min Documented by: [id number] Ioversol (Optiray 320 125ml) 119 ml IV ONCE ONE Stop: 08/02/21 05:13 Last Admin: 08/02/21 05:12 Dose: 1 ml Documented by: [id number] Lorazepam (Lorazepam 0.5 Mg Tab) 0.5 mg PO TID PRN PRN Reason: Anxiety Stop: 09/01/21 11:25 Last Admin: 08/02/21 11:42 Dose: 0.5 mg Documented by: [id number] Methadone HCl (Methadone Hcl 5 Mg Tab) 10 mg PO NOW STA Stop: 08/02/21 09:46 Last Admin: 08/02/21 09:53 Dose: 10 mg Documented by: [id number] Discharge Exam Constitutional WD/WN, vitals as above Eyes PERRL, conjunctivae normal, anicteric sclerae Neck trachea midline, no thyromegaly Respiratory + respiratory distress Cardiovascular Rate/Rhythm: + tachycardic Psychiatric Affect: + anxious affect
--- NOTE | 2021-08-03 23:50 | Electrocardiogram Report ---
Test Reason : Blood Pressure : / mmHG Vent. Rate : 102 BPM Atrial Rate : 102 BPM P-R Int : 128 ms QRS Dur : 084 ms QT Int : 354 ms P-R-T Axes : 070 058 025 degrees QTc Int : 461 ms Sinus tachycardia Otherwise normal ECG No previous ECGs available Confirmed by Leonard Tovar ([id number]) on 08/03/2021 11:50:44 PM Referred By: REFERRED SELF Confirmed By:Leonard Tovar
== END 2021-08-02 13:55 | disposition left against medical advice (07) ==
LOC: ED 03:23 → EDINP 06:21 → INTOOBSV 06:21 → SUATTDRO 06:21 → EDINP 06:40

== ENCOUNTER 2022-04-18 21:59 | Observation (INO) ==
[2022-04-18] MEDS ORDERED: LORazepam 1 MG TAB PO STA (23:18)
[2022-04-18] MEDS ORDERED: ACETAMINOPHEN 1,000 MG/100 ML VIAL IV STA (23:18)
[2022-04-18 23:31] LABS: Basophils # (auto) 0.06 K/uL (0-0.2); Basophils % (auto) 0.6 %; Eosinophils # (auto) 0.36 K/uL (0-0.50); Eosinophils % (auto) 3.7 %; Hematocrit (blood only) 32.7 % (34.1-44.9); Hemoglobin 9.9 g/dl (12.0-16.0); Immature Granulocytes # (auto) 0.03 K/uL (0.00-0.02); Immature Granulocytes % (auto) 0.3 %; Lymphocytes # (auto) 3.27 K/uL (1.2-3.4); Lymphocytes % (auto) 33.6 %; Mean Corpuscular Hgb Conc 30.3 g/dL (32.0-36.0); Mean Corpuscular Volume 79.4 fL (80.0-100.0); Mean Platelet Volume 8.9 fL (9.4-12.3); Monocytes # (auto) 0.48 K/uL (0.24-0.82); Monocytes % (auto) 4.9 %; Neutrophils # (auto) 5.52 K/uL (1.4-6.5); Neutrophils % (auto) 56.9 %; Platelet Count 623 K/uL (130-400); RDW Standard Deviation 37.2 fL (36.4-46.3); Red Blood Count 4.12 M/uL (3.93-5.22); White Blood Count 9.72 K/ul (4.8-10.8)
[2022-04-18 23:44] LABS: Partial Thromboplastin Time 27.7 Seconds (21.0-31.0); Prothrombin Time 10.4 Seconds (9.0-12.0)
[2022-04-18 23:53] LABS: Alanine Aminotransferase 22 U/L (7-52); Albumin Globulin Ratio 0.8 (0.9-2); Albumin Level 3.6 gm/dl (3.4-5.0); Alkaline Phosphatase 77 U/L (34-104); Anion Gap 6 (3-11); Aspartate Aminotransferase 17 U/L (13-39); BUN Creatinine Ratio 17.7 (10-20); Bilirubin,Total 0.2 mg/dl (0.2-1.0); Blood Urea Nitrogen 14 mg/dl (6-23); C Reactive Protein 3.25 mg/dl (0-0.5); Calcium 9.3 mg/dl (8.5-10.1); Carbon Dioxide 30 mmol/L (21-32); Chloride 101 mmol/L (98-107); Est GFR (African American) 112.4 ml/min; Globulin 4.8 gm/dl (2.5-4.0); Glucose 86 mg/dl (70-99(Fasting)); Sodium 137 mmol/L (136-145); Total Protein 8.4 gm/dl (6.0-8.3)
[2022-04-18] MEDS ORDERED: LORazepam 1 MG/1 ML SYR IV STA (23:54)
[2022-04-18 23:57] LABS: Troponin I High Sensitivity 2.8 pg/ml (0-14)
[2022-04-19 00:12] LABS: Appearance Urine Cloudy (Clear); Bacteria Urine Automated 1+ (Negative); Bilirubin Urine Negative (Negative); Blood Urine Negative (Negative); Color Urine Yellow; Epithelial Cell Urine Auto >30 /lpf (0-5); Glucose Urine UA Negative (Negative); Ketones Urine Trace (Negative); Leukocyte Esterase Urine Negative (Negative); Nitrite Urine Negative (Negative); Protein Urine Negative (Negative); RBC Urine Automated 0-4 /hpf (0-4); Specific Gravity Urine 1.024 (1.000-1.030); Urobilinogen Urine Negative (Negative)
[2022-04-19] MEDS ORDERED: GADOBUTROL 65ML VIAL IV ONE (00:18)
[2022-04-19 00:53] LABS: Amphetamines+Metham, Urine Neg (Neg); Barbiturates, Urine Neg (Neg); Benzodiazepine, Urine Neg (Neg); Cocaine, Urine Neg (Neg); MDMA (Ecstacy), Urine Pos (Neg); Methadone, Urine Pos (Neg); Opiate, Urine Neg (Neg); Phencyclidine, Urine Neg (Neg)
--- NOTE | 2022-04-19 04:41 | History & Physical Report ---
Date of Service April 19, 2022 Assessment & Plan (1) Stroke-like symptoms: Plan: 36 y/o female w/ PMHx of opioid use disorder, MRSA bacteremia and mitral valve endocarditis, pelvic abscess, L5-S1 discitis/osteomyelitis, L inferior cerebellar stroke, splenic abscess, and e faecalis bacteremia who was admitted to [facility] this summer for right MCA CVA 11/11 w/ residual R facial droop and dysarthria, and transferred to [facility], discharged end of December who presented w/ stroke like symptoms (slurred speech and facial droop w/o motor/sensory weakness) evening of 04/17/22. - at admission, no focal neuro deficits noted though patient was sleepy/not full y cooperative; limited exam - hx of bacterial endocarditis w/ CVA from possible septic emboli noted - will cover empirically w/ dapto/zosyn; will adequately cover MRSA and e faecalis. 81.6kg (ED) today vs 134kg 07/2021. repeat weight ordered, consider repeating weight after arrives on PCU floor - check TTE. consider cardiology consult regarding possible FARZANEH if indicated - blood cultures pending - MRI statrad reviewed; concern for superimposed stroke vs infection vs abscess. will f/u official read - patient was treated at [facility] as per HPI for endocarditis, bacteremic, and stroke. dayshift to reach out to [facility] team regarding current presentation (2) Drug abuse and dependence: Plan: - states takes methadone 80mg qam - no records in pdmp - patient states follows [facility] in [place] - pharmacy to verify by calling [facility] before methadone is ordered (3) History of bipolar disorder: Plan: - hold home regimen until mentation is still being assessed (4) Anxiety: Plan: - hold home regimen until mentation is still being assessed Plan FEN/GI: NPO. Maintenance fluids. ppx: scds code: full dispo: pcu History of Present Illness Chief Complaint: stroke-like symptoms Primary Care Provider: Stacey Arce MD 36 y/o female w/ PMHx of opioid use disorder, MRSA bacteremia and mitral valve endocarditis, pelvic abscess, L5-S1 discitis/osteomyelitis, L inferior cerebellar stroke, splenic abscess, and e faecalis bacteremia who was admitted to [facility] this summer for right MCA CVA 11/11 w/ residual R facial droop and dysarthria, and transferred to [facility], discharged end of December who presented w/ stroke like symptoms (slurred speech and facial droop w/o motor/sensory weakness) evening of 04/17/22. She went to [place] ED and had a head CT. The morning overread recommended MRI f/u. Patient had missed her slot at [place] and as a result presents to [facility] for workup. MRI statrad at [facility] shows possible subacute infarct vs infection superimposed on chronic right MCA territory infarct, less likely abscess. Patient complains of bilateral low back pain. History limited: she is a poor historian and is drowsy. She denies other complaints such as fever/chills, chest pain, SOB, or urinary symptoms. She denies recent substance use. She states her speech has improved. She denies headache or weakness. ED course: Ativan 1mg IV. Lorazepam 1mg. BP soft at 88/66 at time of exam. wbc 9.72. Hb 9.9. esr 68. BMP wnl. lactate 1.1. liver panel wnl. procal <0.05. UA 1+ bacteria. uds pos for methadone, mdma. bc pending. Allergies Allergy/AdvReac Type Severity Reaction Status Date / Time No Known Allergies Allergy Unverified 03/25/22 10:10 Home Medications Medication Instructions Recorded Confirmed Type acetaminophen 500 mg tablet 500 mg PO QID PRN 02/05/22 03/25/22 History (Tylenol Extra Strength) furosemide 20 mg tablet (Lasix) 20 mg PO DAILY 02/05/22 03/25/22 History polyethylene glycol 3350 17 17 g PO DAILY 02/05/22 03/25/22 History gram/dose oral powder (Miralax) potassium chloride 20 mEq 20 meq PO DAILY 02/05/22 03/25/22 History tablet,extended release sennosides 8.6 mg tablet 17.2 mg PO BID 02/05/22 03/25/22 History (Evac-U-Gen (sennosides)) Wheelchair (Manual) #1 ea 03/25/22 03/25/22 Rx sertraline 100 mg tablet 150 mg PO DAILY 90 days #135 tabs 03/25/22 03/25/22 Rx magnesium oxide 400 mg (241.3 mg 600 mg PO BID #270 tabs 03/27/22 Rx magnesium) tablet melatonin 3 mg capsule 6 mg PO HS PRN sleep #180 caps 03/27/22 Rx trazodone 50 mg tablet 50 mg PO HS #30 tabs 03/27/22 Rx baclofen 5 mg tablet 5 mg PO TID #90 tabs 04/10/22 Rx gabapentin 300 mg capsule 300 mg PO TID #90 caps 04/17/22 Rx Hospital Bed Homecare (Hospital #1 ea 04/18/22 04/18/22 Rx Bed) Wheelchair (Manual) (Manual #1 ea 04/18/22 04/18/22 Rx Wheelchair) miscellaneous medical supply 1 ea miscellaneous PRN #1 ea 04/18/22 04/18/22 Rx Past Med/Surg History Medical History Anemia Anxiety Drug abuse and dependence 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 History of bipolar disorder PCOS (polycystic ovarian syndrome) Surgical History History of section History of repair of ACL History of tubal ligation Family History Grandmother (Paternal) Breast cancer Grandfather (Maternal) Myocardial infarction Graves disease Grandfather (Paternal) Myocardial infarction Denies family history of Colon cancer Ovarian cancer Prostate cancer Social History Smoking Status: Current every day smoker packs per day: 1; Second Hand Exposure: No; Hx Alcohol Use: No Hx Substance Use: Yes Last Used Substance: Days (ago) Last Used Substance Other:: clean X 9 months per patient Substance Use Type Other:: fentanyl Preferred Language: Occitan Communication Ability: Effective Car Coupler Required: No Beliefs That Will Affect Care: None marital status: Single Current Living Situation: Family Current Living Situation Comment: boyfriend and her 3 daughters current occupational status: employed current occupation: [employer] Feels Safe at Home: Yes Dental Care, Regularly: No Physical Activity Frequency: Does not Exercise Seatbelt Use: sometimes Assistive Devices: Cane, Denture - Upper, Glasses, Walker and Wheelchair Review of Systems Review of Systems: All systems reviewed & are unremarkable except as noted in HPI & below (somewhat limited given sleepiness and lack of cooperation) Physical Exam Physical Exam: General: Grossly A&O. NAD. Droswy, Falls back asleep. HEENT: Atraumatic, normocephalic. Will not open eyes long enough for eye movements. Pupils symmetric in size. Pulm: CTAB. -wheezes, -rales, -rhonchi. No respiratory distress. Cardiac: RRR, no murmur noted. Integ: Poor hygiene. Dandruff noted. Neuro: No facial droop. Facial sensation and motor intact. Speech appears fluent. Normal strength and sensation of extrem. Results & Data Results & Data ([facility]) Vital Signs (Past 12 Hours) Vital Signs Temp Pulse Pulse Resp BP BP Pulse Ox 04/19/22 03:00 76 16 104/59 L 96 04/19/22 02:00 79 14 96/62 L 95 04/19/22 01:00 80 14 101/61 93 04/18/22 22:34 86 22 96 04/18/22 22:04 86 16 95 04/18/22 22:04 04/18/22 22:00 36.1 C L 84 20 124/79 97 O2 Del Method 04/19/22 03:00 Room Air 04/19/22 02:00 Room Air 04/19/22 01:00 Room Air 04/18/22 22:34 Room Air 04/18/22 22:04 04/18/22 22:04 Room Air 04/18/22 22:00 Room Air Laboratory Results Cardiac Enzymes 04/18/22 Range/Units 23:18 AST 17 (13-39) U/L Troponin I High Sens 2.8 (0-14) pg/ml Coagulation 04/18/22 Range/Units 23:18 PT 10.4 (9.0-12.0) Seconds APTT 27.7 (21.0-31.0) Seconds CBC 04/18/22 Range/Units 23:18 WBC 9.72 (4.8-10.8) K/ul RBC 4.12 (3.93-5.22) M/uL Hgb 9.9 L (12.0-16.0) g/dl Hct 32.7 L (34.1-44.9) % Plt Count 623 H (130-400) K/uL Neut # (Auto) 5.52 (1.4-6.5) K/uL Lymph # (Auto) 3.27 (1.2-3.4) K/uL Sherman # (Auto) 0.48 (0.24-0.82) K/uL Eos # (Auto) 0.36 (0-0.50) K/uL Baso # (Auto) 0.06 (0-0.2) K/uL Comprehensive Metabolic Panel 04/18/22 Range/Units 23:18 Sodium 137 (136-145) mmol/L Potassium 4.0 (3.5-5.1) mmol/L Chloride 101 (98-107) mmol/L Carbon Dioxide 30 (21-32) mmol/L BUN 14 (6-23) mg/dl Creatinine 0.79 (0.6-1.2) mg/dl Glucose 86 (70-99(Fasting)) mg/dl Calcium 9.3 (8.5-10.1) mg/dl AST 17 (13-39) U/L ALT 22 (7-52) U/L Alkaline Phosphatase 77 (34-104) U/L Total Protein 8.4 H (6.0-8.3) gm/dl Albumin 3.6 (3.4-5.0) gm/dl Intake and Output 04/18/22 04/18/22 04/19/22 14:59 22:59 06:59 Other: Weight 81.647 kg Patient Weight 04/19/22 06:59 Weight 81.647 kg Diagnostic Findings MRI brain statrad Preliminary Findings Only - See Final Report For Complete Findings Enhancement in right basal ganglia with peripherally enhancing ovoid component measuring 1.0x07x0.9 cm and additional thinner/linear enhancing coponent extending inferiorly. Probably minimal associated diffusion restriction at area of enhancement but not centrally. This is in region of chronic right MCA territory infarct and may represent subacute infarct, but cannot exclude cere britis/infection given history and clinical concern. Lack of central diffusion restriction makes abscess unlikely. Chronic right MCA territory infarct. Radiologist: Horacio Alexander MD. Study ready at 00:46 and initial results transmitted at 01:10. Code Status & VTE Plan Code Status full VTE Prophylaxis Plan VTE Prophylaxis will be ordered: Yes Supervising Physician Co-Signing Physician Notes Attending addendum: I have physically seen this patient, have supervised the medical residents activities, and agree with the H&P unless as otherwise noted. Assessment and Plan: Strokelike symptoms- CT of head neck [facility] reportedly demonstrated concern regarding new CVA with recommendation from that hospital to get MRI Patient's family unable to get patient to [facility] for [facility] and thus presents to the emergency department at [facility] MRI brain shows right basal ganglia infarct, chronic right MCA territory infarct, with subacute infarct versus cerebritis/infection as described History of endocarditis treatment with 8 weeks of antibiotics at [place] Empiric treatment with daptomycin IV and Zosyn IV until further records can be obtained Consult neurology Perform full infectious disease work-up, including echocardiogram and likely need for FARZANEH Daytime hospitalist team coordinate with [facility] History of drug abuse/dependence- She reports that she takes methadone 80 mg every morning Dosing will need to be confirmed with [facility] in [place] Bipolar disorder/anxiety- Will ask for psychiatry input, hold on current medications due to patient's altered mental status Remaining orders and notations as noted Resident Activity Tracking Resident Involvement: Resident Care Provided Care Provided: Adult Hospital Medicine
[2022-04-19] MEDS ORDERED: PIPERACILLIN/TAZOBACTAM 4.5 GM in DEXTROSE 5% 100 ML IV ONE (06:30)
[2022-04-19] MEDS ORDERED: DAPTOmycin 400 MG in SYRINGE 0 ML IV ONE (06:40)
--- NOTE | 2022-04-19 07:21 | Magnetic Resonance Report ---
MRI OF THE BRAIN COMBO CLINICAL HISTORY: History stroke. Headaches. History of IV drug use. Clinical concern for abscess. COMPARISON STUDY: No prior studies are available for comparison at the time of dictation. TECHNIQUE: MRI of the brain was performed utilizing various T1 and T2-weighted sequences in the axial , sagittal, and coronal planes. Contrast-enhanced sequences were acquired following the administratio n of 8 cc of Gadavist. FINDINGS: Brain parenchyma: Right MCA territory encephalomalacia is consistent with a prior infarct. There is n o hemorrhage or mass effect. There is no restricted diffusion typical for acute ischemia. There is a serpiginous focus of enhancement centered in the right basal ganglia. This measures approximately 2.5 x 0.9 x 0.7 cm as seen on axial image #14. No additional enhancing foci are identified on the postco ntrast images. No extra-axial fluid collection is seen. The cerebellar tonsils are normal in configur ation. Ventricles, sulci, and cisterns: Normal in configuration noting ex vacuo dilatation of the right late ral ventricle. Pituitary and sella: Unremarkable. Intracranial vasculature: Normal flow voids are maintained at the skull base. There is loss of the ri ght MCA flow void. Orbits: The bony orbits are grossly intact. Orbital contents are normal in appearance. Sinuses and mastoids: Clear. Calvarium: Unremarkable. Cervical cord: Partially visualized cervical spinal cord is normal in morphology and signal intensity . IMPRESSION: 1. There is no hemorrhage, midline shift, or evidence of acute ischemia. 2. Right MCA territory encephalomalacia is consistent with prior infarct. 3. There is a an indeterminate serpiginous focus of enhancement centered in the right basal ganglia. This is nonspecific, and likely related to subacute ischemia. An enhancing mass lesion or focus of in fection is considered much less likely. There is no restricted diffusion to indicate abscess. Clinica l correlation will be essential. Correlate with CT findings. A follow-up MRI in several weeks' time i s recommended for reassessment. ACT 112: Negative or not required by law. Electronically signed by: Gaudencio Phillips M.D. 04/19/2022 7:18 AM
[2022-04-19] MEDS: SODIUM CHLORIDE 0.9% 1000ML 1,000 ML IV SCH ×2 (08:23→16:04)
[2022-04-19] MEDS ORDERED: DAPTOmycin 250 MG in SYRINGE 0 ML IV STA (09:01)
[2022-04-19] MEDS ORDERED: PHARMACIST DISCHARGE MED REC CONSULT PRN (10:04)
--- NOTE | 2022-04-19 11:30 | Neurology Consultation ---
Date of Consultation April 19, 2022 Assessment & Plan (1) Dysarthria: (2) Homonymous hemianopsia due to recent cerebrovascular accident: (3) Left spastic hemiparesis: (4) Facial droop due to old stroke: (5) 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: (6) Drug abuse and dependence: (7) History of bipolar disorder: Plan this patient had an episode of acute dysarthria on April 17 now back to baseline after a few hours. On examination she has no new symptoms but left over symptoms from her embolic right middle cerebral artery stroke back in November of this year. She has been left with a significant left spastic alycia paresis, left facial droop, left homonymous hemianopsia, and some left-sided sensory deficits requiring gabapentin ( which helps ). She was septic with endocarditis and has a history of IV and other drug abuse , as well as significant psychiatric issues including depression and bipolar disorder. Her MRI shows no new stroke but the enhancement inside the old stroke is likely subacute stroke issues ( not a new stroke, not a hemorrhage, and not consistent with an abscess). Cerebritis or infection cannot totally be excluded. Patient has no fever or elevated white count. She does have an elevated CRP however. Currently, neurologically, she is stable Recommendations: 1. consider addition of 81 milligram aspirin tablet daily to prevent small vessel ischemic disease. even though her stroke was large, she should not be in a bleeding risk with this given the number of months of healing. 2.Consider CT angiography of the head and neck. 3. Consider echocardiogram. 4. control blood pressure, glucose, and lipids as you are doing 5. I will follow but I believe this patient wants to leave today and not stay for additional testing. She follows with Dr. Arce Overall, I spent a total of 90 minutes with this case including review of records, review of MRI films ( including reviewing with Dr. Phillips), direct evaluation the patient at bedside, and discussion of the case with the patient and RN at bedside and Patricia Lino PA-C History of Present Illness Reason for Consultation: Patient is a 36-year-old, who I was asked to see at the request of Dr. Garcia, for neurologic consultation regarding TIA versus stroke. Requesting Physician: Dr. Garcia Attending Physician: Yadiel Romeo MD History of Present Illness This patient started abusing drugs in her late teen years. This continued up until earlier this year when she had a large stroke. She would try to obtain fentanyl but she has done methamphetamine. She has a history of anxiety and depression. She was not on any antiplatelet medication prior to this admission. The patient had a positive echocardiogram earlier this year showing mitral valve vegetation and by October of 2021 she had an episode of left facial droop with slurred speech. Apparently there were infarcts in the left frontal, left temporal, and right insular cortex. In November of 2021, she was again admitted to [facility] with a large right middle cerebral artery stroke secondary to M1 occlusion with left alycia paresis and homonymous hemianopsia. She had MRSA sepsis and endocarditis. There was seating of her L5-S1 disc and she had a splenic infarct. She received 6-8 weeks of antibiotics finishing in January of this year. She has not had any fever or chills since. She was doing fairly well off illicit drugs and on gabapentin for the dysesthesias of the left arm and leg (which helped ) when she woke up on the morning of the , with slurred speech. She denied any new weakness. She went to the [facility] and the symptom cleared up. A CT scan of the head Showed the old right middle cerebral artery infarct but did not show any new infarct Or hemorrhage. There was an area of hypodensity and an abscess or infection could not be excluded. MRI was recommended. She did not want to wait overnight to get the MRI clear field, so she came to [facility]. She has had no further problems with speech, weakness, numbness, confusion, or vision problems. She feels back to her baseline. She is tired and wants to go home. MRI of the brain was obtained with without contrast, and I reviewed this with Dr. Phillips. The old right middle cerebral infarct of a large nature was noted. There was a linear enhancing region in the area of the infarct of uncertain etiology. It is likely left over from the stroke and it does not seem to be consistent with an abscess. Is not a new stroke (There was no evidence for a new stroke). cerebritis/ irritations /infection cannot entirely be excluded but whenever is present, seems old. There is no edema/mass effect. CBC showed anemia and Chem profile was unremarkable. CRP was elevated at 3.25. Urinalysis was unremarkable. urine drug screen was positive for methadone ( which she takes ). She is afebrile at 36.1 and blood pressure is 127/76 with a pulse of 70 some regular. Allergies Allergy/AdvReac Type Severity Reaction Status Date / Time No Known Allergies Allergy Unverified 03/25/22 10:10 Home Medications Medication Instructions Recorded Confirmed Type acetaminophen 500 mg tablet 500 mg PO QID PRN 02/05/22 03/25/22 History (Tylenol Extra Strength) furosemide 20 mg tablet (Lasix) 20 mg PO DAILY 02/05/22 03/25/22 History polyethylene glycol 3350 17 17 g PO DAILY 02/05/22 03/25/22 History gram/dose oral powder (Miralax) potassium chloride 20 mEq 20 meq PO DAILY 02/05/22 03/25/22 History tablet,extended release sennosides 8.6 mg tablet 17.2 mg PO BID 02/05/22 03/25/22 History (Evac-U-Gen (sennosides)) Wheelchair (Manual) #1 ea 03/25/22 03/25/22 Rx sertraline 100 mg tablet 150 mg PO DAILY 90 days #135 tabs 03/25/22 03/25/22 Rx magnesium oxide 400 mg (241.3 mg 600 mg PO BID #270 tabs 03/27/22 Rx magnesium) tablet melatonin 3 mg capsule 6 mg PO HS PRN sleep #180 caps 03/27/22 Rx trazodone 50 mg tablet 50 mg PO HS #30 tabs 03/27/22 Rx baclofen 5 mg tablet 5 mg PO TID #90 tabs 04/10/22 Rx gabapentin 300 mg capsule 300 mg PO TID #90 caps 04/17/22 Rx Hospital Bed Homecare (Hospital #1 ea 04/18/22 04/18/22 Rx Bed) Wheelchair (Manual) (Manual #1 ea 04/18/22 04/18/22 Rx Wheelchair) miscellaneous medical supply 1 ea miscellaneous PRN #1 ea 04/18/22 04/18/22 Rx Patient History Medical History Anemia Anxiety Drug abuse and dependence 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 History of bipolar disorder PCOS (polycystic ovarian syndrome) Surgical History History of section History of repair of ACL History of tubal ligation Family History Grandmother (Paternal) Breast cancer Grandfather (Maternal) Myocardial infarction Graves disease Grandfather (Paternal) Myocardial infarction Denies family history of Colon cancer Ovarian cancer Prostate cancer Social History Smoking Status: Current every day smoker packs per day: 1; Second Hand Exposure: No; Hx Alcohol Use: No Hx Substance Use: Yes Last Used Substance: Days (ago) Last Used Substance Other:: 1 Substance Use Type Other:: fentanyl Preferred Language: Danish Communication Ability: Effective 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 [employer] History Required: No Beliefs That Will Affect Care: None marital status: Single Current Living Situation: Spouse Current Living Situation Comment: w/ children 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 Feels Safe at Home: Yes Dental Care, Regularly: No Physical Activity Frequency: Does not Exercise Seatbelt Use: sometimes Assistive Devices: None Review of Systems Constitutional: + fatigue and + weakness; no fever Eyes: no diplopia, no eye pain and no worsening vision Ear, Nose, Mouth, Throat: no ear pain, no tinnitus, no hearing loss, no dizziness, no snoring, no hoarseness and no dysphagia Respiratory: no cough and no dyspnea Cardiovascular: no chest pain, no palpitations and no lightheadedness Gastrointestinal: no abdominal pain, no nausea and no vomiting Genitourinary: no dysuria, no urinary frequency and no urinary incontinence Musculoskeletal: + back pain; no neck pain, no radicular pain, no joint pain and no myalgia Integumentary: no rash and no lesions Neurologic: + gait abnormality, + localized weakness, + tingling, + numbness and + abnormal speech; no generalized weakness, no tremor(s), no abnormal movements, no headache(s), no confusion and no memory loss Psychiatric: + depression and + anxiety; no irritability, no difficulty concentrating, no confusion and no hallucinations Endocrine: no fatigue and no flushing Hematologic / Lymphatic: no easy bleeding and no easy bruising Allergy / Immunological: no urticaria and no problem reported Exam (Neuro) Physical Exam: The patient is right-handed. The patient is awake, alert, and attentive. Speech is normal without any obvious aphasia or dysarthria. The patient can name objects, repeat phrases, and has normal spontaneous speech. Mentation and thought processes are intact, with orientation to person, place and time, and normal fund of knowledge. Attention and concentration are normal. Mood and affect are normal and appropriate. General appearance and grooming are normal. Short and long-term memory are intact to conversation and testing. The discs are sharp with positive venous pulsations bilaterally. There are no exudates, hemorrhages, or blood vessel changes seen. Pupils are 4 mm bilaterally and reactive to light. Extraocular eye muscles are intact without nystagmus. Visual acuity and visual norwood seem normal grossly to confrontation. There are no deficits to sensation in the face in all 3 distributions of the fifth cranial nerve bilaterally. Corneal reflexes are positive bilaterally. there is a facial droop on the left and she does not move that side as well as the right.. Hearing seems normal bilaterally. Palate moves well without asymmetry. There is normal sternocleidomastoid and trapezius (shoulder shrug) strength bilaterally. Tongue is midline with good strength bilaterally. Neck has a full range of motion without discomfort. Gait Was not tested as she is bed-bound and stance sitting up was poor because of her left-sided weakness With outstretched right arm there is no drift. left upper extremity is very weak and has drift when outstretched. There are no resting, postural, or action tremors bilaterally. There is no ataxia with finger to nose testing On the right. The left had no obvious ataxia but was harder for her to do. the left hand was very clumsy compared to the right which was normal. Motor strength is 5/5 diffusely in the Right arm and leg both proximally and distally. The left arm and leg are 4/5 and spastic diffusely. Sensory examination is intact to touch and pin throughout all 4 limbs diffusely. Reflexes are 3/4 in the Left biceps, triceps, brachioradialis, quadriceps, and Achilles tendons. the right arm and leg reflexes are 1/4. There is no clonus bilaterally. Toes are downgoing with plantar stimulation On the right and upgoing with plantar stimulation on the left. Peripheral pulses are present and of normal quality distally in all 4 limbs. Results & Data ([facility]) Vital Signs (Past 12 Hours) Vital Signs Pulse Resp BP Pulse Ox O2 Del Method 10/28/22 09:00 76 18 127/76 97 Room Air 04/19/22 07:00 83 18 136/94 96 Room Air 04/19/22 05:00 64 16 96/66 L 96 Room Air 04/19/22 03:00 76 16 104/59 L 96 Room Air 04/19/22 02:00 79 14 96/62 L 95 Room Air 04/19/22 01:00 80 14 101/61 93 Room Air PG Care Time/CCT Total # of Minutes Spent Total Time Spent with Patient: Total time spent is greater than 50% in coordination of care (as documented) at patient's floor/unit and/or counseling patient: Coding Level of Care Code 35722 Inpt Consult Level 5 Diagnoses Dysarthria R47.1 Homonymous hemianopsia due to recent cerebrovascular accident I69.398; H53.469 Left spastic hemiparesis G81.14 Facial droop due to old stroke I69.392 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 I63.411 Drug abuse and dependence F19.20 History of bipolar disorder Z86.59 Time Spent (min) 90 Comment add modifiers as able
[2022-04-19] MEDS: ASPIRIN 81 MG ECTAB PO SCH (13:29)
[2022-04-19] MEDS ORDERED: OPTIRAY 320 500ml IV ONE (13:56)
--- NOTE | 2022-04-19 14:12 | CT Scan Report ---
CT ANGIOGRAM OF THE BRAIN CLINICAL HISTORY: Transient ischemic attack COMPARISON STUDY: MRI of the brain dated 04/18/2022. TECHNIQUE: Following the IV administration of 120 cc of Optiray 320, CT angiogram of the brain was pe rformed from the skull base to the vertex. Images are reviewed in the axial, sagittal, and coronal pl anes. 3-D MIPS images are created and assessed. IV contrast was administered without complication. A dose lowering technique was utilized adhering to the principles of ALARA. Note that interpretation i s significantly suboptimal without an unenhanced CT of the brain. CT DOSE: 487.34 mGy.cm FINDINGS: Brain parenchyma: Right MCA territory encephalomalacia is consistent with a previous infarct. There i s nonmass-like serpiginous enhancement in the right basal ganglia. There is no evidence of hemorrhage , mass effect, or acute territorial ischemia routine angiographic phase technique. No extra-axial flu id collection is seen. Ventricles, sulci, and cisterns: Normal in configuration. CT angiogram of the brain: The internal carotid arteries are patent at the skull base, as are the lef t middle cerebral artery and both anterior cerebral arteries. There is occlusion of the right middle cerebral artery. The vertebrobasilar system and posterior cerebral arteries are widely patent. The le ft vertebral artery is dominant. There is no aneurysm, high-grade stenosis, or focal vessel cutoff id entified throughout the intracranial circulation. Dural sinuses: Clear as visualized. Orbits: The bony orbits are intact. The orbital contents are normal as visualized. Sinuses and mastoids: The paranasal sinuses are clear. The mastoid air cells are well pneumatized. Calvarium: Unremarkable. IMPRESSION: 1. Occlusion of the right middle cerebral artery. 2. The remaining intracranial vessels are patent. 3. Right MCA territory encephalomalacia is consistent with a prior infarct. 4. Serpiginous nonmasslike enhancement is again seen in the right basal ganglia. This was better asse ssed on today's MRI of the brain. ACT 112: Negative or not required by law. Electronically signed by: Gaudencio Phillips M.D. 04/19/2022 2:10 PM
[2022-04-19] MEDS: GABAPENTIN 300 MG CAP PO SCH ×2 (14:21→20:47)
--- NOTE | 2022-04-19 14:33 | CT Scan Report ---
CT angio neck with con CLINICAL HISTORY: 36 years-old Female with tia. Acute stroke like symptoms COMPARISON STUDY: CTA head of same day, brain MRI 04/18/2022. TECHNIQUE: Following the IV administration of 1 20 mL of Optiray, CT angiogram of the neck was perfor med from the aortic arch to the skull base. Images are reviewed in the axial, sagittal, and coronal p lanes. 3-D MIPS images are created and assessed. IV contrast was administered without complication. A ll measurements were calculated based on NASCET criteria. A dose lowering technique was utilized adh ering to the principles of ALARA. CT DOSE: 545.11 mGy.cm FINDINGS: Three-vessel morphology of the thoracic aortic arch. There is patency of the innominate and imaged sanderson bclavian arteries. The common and internal carotid arteries are widely patent. There is occlusion of the right middle cerebral artery. Patent and codominant vertebral arteries. Basilar artery is patent. Intralobular septal thickening with groundglass densities of the lungs. No pneumothorax. Unremarkable soft tissues. Degenerative changes of the cervical spine. Chronic right MCA territory infarct. Enhan cement of the right basal ganglia is better characterized on the recent brain MRI. Degenerative galloway es of the cervical spine. IMPRESSION: 1. Unremarkable CTA of the neck. 2. Occlusion of the right MCA with old right MCA infarct. 3. Intralobular septal thickening with groundglass opacities of the lung apices suggestive of pulmona ry edema. ACT 112: Negative or not required by law. The above report was generated using voice recognition software. It may contain grammatical, syntax o r spelling errors. Electronically signed by: Alex Ibarra M.D. 04/19/2022 2:32 PM
--- NOTE | 2022-04-19 15:06 | XCELERA ---
[id number]
--- NOTE | 2022-04-19 15:18 | History & Physical Bridge Note ---
Date of Service April 19, 2022 History & Physical Bridge Note I have visited with patient, reviewed the History & Physical and in the interval since the performance of the History & Physical I have noted the following changes of clinical significance: Pt admitted with stroke-like symptoms. Recent R MCA infarct over the summer secondary to septic emboli, hospitalized at [facility]. Now with plans to have a mitral valve replacement due to endocarditis but specialists are waiting until she is far enough out from her stroke to undergo surgery. MRI showed an area of enhancement centered in the right basal ganglia which is felt to favor findings d/t subacute ischemia. Pt empirically started on Zosyn/Dapto. Neuro consulted, recommended echo, cta head/neck which have been ordered. Limited echo performed but pt refused further images and study was subsequently aborted. Pt currently up in room, she was NOT examined today. She is awake, alert and oriented. Will resume her home medications including her Methadone which was not ordered by admitting team d/t wanting it to be verified by pharmacy prior to ordering. Her other home meds were held until she was more awake/alert and also she was made NPO until swallowing screen completed. At this time, will stop her IVF. Diet ordered. Resume her Trazodone, Melatonin, and Sertraline as well as her Gabapentin and Methadone. Anticipate she should be able to be discharged tomorrow (04/20). D/w Dr. Quach.
[2022-04-19] MEDS ORDERED: MELATONIN 3 MG TAB PO PRN (15:50)
[2022-04-19] MEDS ORDERED: METHADONE ORAL SOLN 2 MG/ML PO SCH (16:00)
--- NOTE | 2022-04-19 20:32 | Communication Note ---
Date of Service: April 19, 2022 Reviewed omer's note. Patient was started on empiric dapto+zosyn at admission by me ~12 hours ago. I am resuming the zosyn as part of empiric coverage.
--- NOTE | 2022-04-19 20:38 | Billing Data ---
Date of Service April 19, 2022 Coding Level of Care Code 23522 Initial Inpt Care Lvl 3
[2022-04-19] MEDS: PIPERACILLIN/TAZOBACTAM 4.5 GM in DEXTROSE 5% 100 ML IV SCH (20:48)
[2022-04-19] MEDS ORDERED: traZODone HCL 50 MG TAB PO SCH (21:00)
--- NOTE | 2022-04-19 21:25 | Emergency Department Note ---
History of Present Illness General Chief complaint: Neuro Symptoms/Deficit Stated complaint: ABSCESS ON BRAIN, EMERGENCY MRI REQUEST Time Seen by Provider: 04/18/22 22:24 History of Present Illness This is a 36-year-old female presenting to the emergency department accompanied by family for evaluation of possible stroke versus brain abscess. The patient has a very complicated past medical history including IV drug abuse, bacterial endocarditis, embolic stroke, and chronic left-sided weakness. The patient's stroke was evaluated at [facility] earlier this year, where she had an extended hospitalization for drug and alcohol rehabilitation, occupational, and physical rehabilitation. Ultimately the patient is now home where she lives in the [place] area with her mother who is the primary caregiver. 2 days ago the patient began feeling unwell and expressed to mom that she had a feeling of impending doom. Family went to [facility] ER yesterday evening where CT scan was performed and was initially read as unremarkable by the overnight radiology team. This was evidently reread earlier today by additional radiology, who were concerned for abscess within the area of her chronic stroke. [facility] did reach out to family around 8 AM to have them come back for MRI services. [place] then reached out at 4:30 PM when this family did not return to the facility. [place] only has MRI available Friday through Friday from 8 AM to 5 PM. Ultimately rather than go to [facility] facility such as [place] where they would have records, mother elected to bring patient here for evaluation. She does have family practice care through [facility], but we do not have any of her old images. The family is essentially here for MRI to evaluate for possible abscess. The patient has not had fevers or chills. She does not have any reports of new deficits. Her discomfort is rated a 1/10. Home Medications Medication Instructions Recorded Confirmed Type acetaminophen 500 mg tablet 500 mg PO QID PRN 02/05/22 03/25/22 History (Tylenol Extra Strength) furosemide 20 mg tablet (Lasix) 20 mg PO DAILY 02/05/22 03/25/22 History polyethylene glycol 3350 17 17 g PO DAILY 02/05/22 03/25/22 History gram/dose oral powder (Miralax) potassium chloride 20 mEq 20 meq PO DAILY 02/05/22 03/25/22 History tablet,extended release sennosides 8.6 mg tablet 17.2 mg PO BID 02/05/22 03/25/22 History (Evac-U-Gen (sennosides)) Wheelchair (Manual) #1 ea 03/25/22 03/25/22 Rx sertraline 100 mg tablet 150 mg PO DAILY 90 days #135 tabs 03/25/22 03/25/22 Rx magnesium oxide 400 mg (241.3 mg 600 mg PO BID #270 tabs 03/27/22 Rx magnesium) tablet melatonin 3 mg capsule 6 mg PO HS PRN sleep #180 caps 03/27/22 Rx trazodone 50 mg tablet 50 mg PO HS #30 tabs 03/27/22 Rx baclofen 5 mg tablet 5 mg PO TID #90 tabs 04/10/22 Rx gabapentin 300 mg capsule 300 mg PO TID #90 caps 04/17/22 Rx Hospital Bed Homecare (Hospital #1 ea 04/18/22 04/18/22 Rx Bed) Wheelchair (Manual) (Manual #1 ea 04/18/22 04/18/22 Rx Wheelchair) miscellaneous medical supply 1 ea miscellaneous PRN #1 ea 04/18/22 04/18/22 Rx Allergies Allergy/AdvReac Type Severity Reaction Status Date / Time No Known Allergies Allergy Unverified 03/25/22 10:10 Past Med/Surg History Medical History Anemia Anxiety Drug abuse and dependence 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 History of bipolar disorder PCOS (polycystic ovarian syndrome) Surgical History History of section History of repair of ACL History of tubal ligation Family History Grandmother (Paternal) Breast cancer Grandfather (Maternal) Myocardial infarction Graves disease Grandfather (Paternal) Myocardial infarction Denies family history of Colon cancer Ovarian cancer Prostate cancer Social History Smoking Status: Current every day smoker packs per day: 1; Second Hand Exposure: No; Hx Alcohol Use: No Hx Substance Use: Yes Last Used Substance: Days (ago) Last Used Substance Other:: clean X 9 months per patient Substance Use Type Other:: fentanyl Preferred Language: Bruneian Communication Ability: Effective Membership Sales Advisor Required: No Beliefs That Will Affect Care: None marital status: Single Current Living Situation: Family Current Living Situation Comment: boyfriend and her 3 daughters current occupational status: employed current occupation: [employer] Feels Safe at Home: Yes Dental Care, Regularly: No Physical Activity Frequency: Does not Exercise Seatbelt Use: sometimes Assistive Devices: Cane, Denture - Upper, Glasses, Walker and Wheelchair Review of Systems A total of 10 systems reviewed and were otherwise negative Physical Exam Vital Signs Vital Signs - 24 hr 04/18/22 22:00 04/18/22 22:04 04/18/22 22:04 Temperature 36.1 C L Temperature Source Temporal Artery Scan Pulse Rate 84 Pulse Rate [Right Finger] 86 Pulse Rhythm Pulse Rhythm [Right Finger] Regular Pulse Strength [Right Finger] Normal Respiratory Rate 20 16 Respiratory Effort / Characteristics Non-Labored Spontaneous Non-Labored Respiratory Depth Normal Normal Respiratory Pattern Blood Pressure 124/79 Blood Pressure [Right Arm] Blood Pressure Mean 94 Blood Pressure Mean [Right Arm] Blood Pressure Position Sitting Pulse Oximetry 97 95 Oxygen Delivery Method Room Air Room Air Sepsis Recent Fever Within 48 Hours No Sepsis New/Unexplained Change in Mental Status N/A Sepsis Action Taken by Nursing No Action Required 04/18/22 22:34 04/19/22 01:00 04/19/22 02:00 Temperature Temperature Source Pulse Rate 86 Pulse Rate [Right Finger] 80 79 Pulse Rhythm Regular Pulse Rhythm [Right Finger] Regular Regular Pulse Strength [Right Finger] Normal Normal Respiratory Rate 22 14 14 Respiratory Effort / Characteristics Non-Labored Non-Labored Respiratory Depth Normal Normal Respiratory Pattern Regular Regular Blood Pressure Blood Pressure [Right Arm] 101/61 96/62 L Blood Pressure Mean Blood Pressure Mean [Right Arm] 74 73 Blood Pressure Position Pulse Oximetry 96 93 95 Oxygen Delivery Method Room Air Room Air Room Air Sepsis Recent Fever Within 48 Hours Sepsis New/Unexplained Change in Mental Status Sepsis Action Taken by Nursing 04/19/22 03:00 04/19/22 05:00 Temperature Temperature Source Pulse Rate Pulse Rate [Right Finger] 76 64 Pulse Rhythm Pulse Rhythm [Right Finger] Regular Regular Pulse Strength [Right Finger] Normal Normal Respiratory Rate 16 16 Respiratory Effort / Characteristics Non-Labored Non-Labored Respiratory Depth Normal Normal Respiratory Pattern Regular Blood Pressure Blood Pressure [Right Arm] 104/59 L 96/66 L Blood Pressure Mean Blood Pressure Mean [Right Arm] 74 76 Blood Pressure Position Pulse Oximetry 96 96 Oxygen Delivery Method Room Air Room Air Sepsis Recent Fever Within 48 Hours Sepsis New/Unexplained Change in Mental Status Sepsis Action Taken by Nursing VITALS: Vitals are noted on the nurse's note and reviewed by myself. Vital signs stable. GENERAL: Morbidly obese chronically ill-appearing white female HEAD: Normocephalic atraumatic. EYES: Pupils equal round and reactive to light and accommodation. Conjunctivae without injection, sclerae without icterus. Extraocular movements intact. NECK: Supple without nuchal rigidity. No lymphadenopathy. No thyromegaly. Cer vical spine is nontender. HEART: Regular rate and rhythm without murmurs gallops or rubs. LUNGS: Clear to auscultation bilaterally without wheezes, rales or rhonchi. No retractions or accessory muscle use. MUSCULOSKELETAL: No muscle atrophy, erythema, or edema noted. Full range of motion in all extremities. NEURO: Patient was alert and oriented to person place and time. GCS 15. Course Administered Medications Aspirin (Aspirin 81 Mg Ectab) 81 mg PO QAM [facility] Stop: 05/19/22 12:29 Last Admin: 04/19/22 13:29 Dose: 81 mg Documented By: JANELLE Gabapentin (Gabapentin 300 Mg Cap) 300 mg PO TID [facility] Stop: 05/19/22 13:59 Last Admin: 04/19/22 20:47 Dose: 300 mg Documented By: Admin: 04/19/22 14:21 Dose: 300 mg Documented By: JANELLE Piperacillin Sod/Tazobactam (Sod 4.5 gm/ Dextrose) 120 mls @ 30 mls/hr IV Q8H [facility]; Protocol Stop: 04/21/22 20:29 Last Admin: 04/19/22 20:48 Dose: 30 mls/hr Documented By: MICHELA Trazodone HCl (Trazodone Hcl 50 Mg Tab) 50 mg PO HS [facility] Stop: 05/19/22 20:59 Last Admin: 04/19/22 20:47 Dose: 50 mg Documented By: MICHELA Discontinued Medications Gadobutrol (Gadobutrol 65ml Vial) 8 ml IV ONCE ONE Stop: 04/19/22 00:19 Last Admin: 04/19/22 00:18 Dose: 8 ml Documented By: POLO Acetaminophen (Ofirmev) 1,000 mg in 100 mls @ 400 mls/hr IV NOW STA Stop: 04/18/22 23:32 Last Infusion: 04/19/22 07:12 Dose: 0 mls/hr Documented By: Admin: 04/18/22 23:26 Dose: 400 mls/hr Documented By: AMANDA Sodium Chloride (Nss 1000ml) 1,000 mls @ 125 mls/hr IV .Q8H [facility] Stop: 04/20/22 06:14 Last Admin: 04/19/22 16:04 Dose: Not Given Documented By: Infusion: 04/19/22 16:04 Dose: 0 mls/hr Documented By: Admin: 04/19/22 08:23 Dose: 125 mls/hr Documented By: MARY Daptomycin 400 mg/ Syringe 8 mls @ 4 mls/min IV ONE ONE; Protocol Stop: 04/19/22 06:41 Last Admin: 04/19/22 08:23 Dose: 4 mls/min Documented By: MARY Piperacillin Sod/Tazobactam (Sod 4.5 gm/ Dextrose) 120 mls @ 200 mls/hr IV NOW ONE; Protocol Stop: 04/19/22 07:05 Last Infusion: 04/19/22 10:33 Dose: 0 mls/hr Documented By: Admin: 04/19/22 08:23 Dose: 200 mls/hr Documented By: MARY Daptomycin 250 mg/ Syringe 5 mls @ 2.5 mls/min IV NOW STA; Protocol Stop: 04/19/22 09:02 Last Admin: 04/19/22 09:55 Dose: 2.5 mls/min Documented By: MARY Ioversol (Optiray 320 500ml) 120 ml IV ONCE ONE Stop: 04/19/22 13:57 Last Admin: 04/19/22 13:53 Dose: 120 ml Documented By: BRM Lorazepam (Lorazepam 1 Mg Tab) 1 mg PO NOW STA Stop: 04/18/22 23:19 Last Admin: 04/18/22 23:25 Dose: 1 mg Documented By: AMANDA Lorazepam (Lorazepam 2 Mg/2 Ml Syr) 1 mg IV NOW STA; Protocol Stop: 04/18/22 23:55 Last Admin: 04/19/22 01:01 Dose: Not Given Documented By: AMANDA Methadone HCl (Methadone Oral Soln 2 Mg/Ml) 80 mg PO TODAY@1630 [facility] Stop: 04/19/22 16:01 Last Admin: 04/19/22 16:15 Dose: 80 mg Documented By: SHON Medical Decision Making Differential Diagnosis Differential includes acute coronary syndrome, myocardial infarction, CVA, TIA, anemia, infection, pneumonia, UTI, pyelonephritis, poor nutrition, dehydration, electrolyte disturbance,hypoglycemia. Laboratory Data Result diagrams: 04/18/22 23:18 04/18/22 23:18 Lab Results 04/18/22 04/18/22 04/18/22 Range/Units 22:34 22:34 22:34 WBC (4.8-10.8) K/ul RBC (3.93-5.22) M/uL Hgb (12.0-16.0) g/dl Hct (34.1-44.9) % MCV (80.0-100.0) fL MCH (25.0-34.0) pg MCHC (32.0-36.0) g/dL RDW Std Deviation (36.4-46.3) fL RDW Coeff of Alexia (11.5-14.5) % Plt Count (130-400) K/uL MPV (9.4-12.3) fL Immature Gran % (Auto) % Neut % (Auto) % Lymph % (Auto) % Gregory % (Auto) % Eos % (Auto) % Baso % (Auto) % Neut # (Auto) (1.4-6.5) K/uL Lymph # (Auto) (1.2-3.4) K/uL Gregory # (Auto) (0.24-0.82) K/uL Eos # (Auto) (0-0.50) K/uL Baso # (Auto) (0-0.2) K/uL Immature Gran # (Auto) (0.00-0.02) K/uL ESR (0-20) mm/hr PT (9.0-12.0) Seconds INR (0.9-1.1) APTT (21.0-31.0) Seconds PTT Ratio Sodium (136-145) mmol/L Potassium (3.5-5.1) mmol/L Chloride (98-107) mmol/L Carbon Dioxide (21-32) mmol/L Anion Gap (3-11) BUN (6-23) mg/dl Creatinine (0.6-1.2) mg/dl Est Cr Clr Drug Dosing Est GFR ( Amer) ml/min Est GFR (Non-Af Amer) ml/min BUN/Creatinine Ratio (10-20) Glucose (70-99(Fasting)) mg/dl Lactate (0.4-2.0) mmol/L Calcium (8.5-10.1) mg/dl Total Bilirubin (0.2-1.0) mg/dl AST (13-39) U/L ALT (7-52) U/L Alkaline Phosphatase (34-104) U/L Troponin I High Sens (0-14) pg/ml C-Reactive Protein (0-0.5) mg/dl Total Protein (6.0-8.3) gm/dl Albumin (3.4-5.0) gm/dl Globulin (2.5-4.0) gm/dl Albumin/Globulin Ratio (0.9-2) Procalcitonin (0-0.5) ng/ml Urine Color Yellow Urine Appearance Cloudy A (Clear) Urine pH 6.0 (4.5-7.5) Ur Specific Alliance 1.024 (1.000-1.030) Urine Protein Negative (Negative) Urine Glucose (UA) Negative (Negative) Urine Ketones Trace H (Negative) Urine Blood Negative (Negative) Urine Nitrite Negative (Negative) Urine Bilirubin Negative (Negative) Urine Urobilinogen Negative (Negative) Ur Leukocyte Esterase Negative (Negative) Urine WBC (Auto) 1-5 (0-5) /hpf Urine RBC (Auto) 0-4 (0-4) /hpf U Hyaline Cast (Auto) 1-5 (0-5) /lpf U Epithel Cells (Auto) >30 H (0-5) /lpf Urine Bacteria (Auto) 1+ H (Negative) POC Ur Test NEG (NEG) Urine Opiates Screen Neg (Neg) Ur Methadone, Qual Pos H (Neg) Urine Barbiturates Neg (Neg) Ur Phencyclidine (PCP) Neg (Neg) U Amphetamin/Meth Scrn Neg (Neg) MDMA (Ecstasy) Screen Pos H (Neg) U Benzodiazepines Scrn Neg (Neg) Ur Cocaine Metabolite Neg (Neg) U Marijuana (THC) Screen Neg (Neg) 04/18/22 04/18/22 04/18/22 Range/Units 23:18 23:18 23:18 WBC 9.72 (4.8-10.8) K/ul RBC 4.12 (3.93-5.22) M/uL Hgb 9.9 L (12.0-16.0) g/dl Hct 32.7 L (34.1-44.9) % MCV 79.4 L (80.0-100.0) fL MCH 24.0 L (25.0-34.0) pg MCHC 30.3 L (32.0-36.0) g/dL RDW Std Deviation 37.2 (36.4-46.3) fL RDW Coeff of Alexia 13.0 (11.5-14.5) % Plt Count 623 H (130-400) K/uL MPV 8.9 L (9.4-12.3) fL Immature Gran % (Auto) 0.3 % Neut % (Auto) 56.9 % Lymph % (Auto) 33.6 % Gregory % (Auto) 4.9 % Eos % (Auto) 3.7 % Baso % (Auto) 0.6 % Neut # (Auto) 5.52 (1.4-6.5) K/uL Lymph # (Auto) 3.27 (1.2-3.4) K/uL Gregory # (Auto) 0.48 (0.24-0.82) K/uL Eos # (Auto) 0.36 (0-0.50) K/uL Baso # (Auto) 0.06 (0-0.2) K/uL Immature Gran # (Auto) 0.03 H (0.00-0.02) K/uL ESR 68 H (0-20) mm/hr PT (9.0-12.0) Seconds INR (0.9-1.1) APTT (21.0-31.0) Seconds PTT Ratio Sodium (136-145) mmol/L Potassium (3.5-5.1) mmol/L Chloride (98-107) mmol/L Carbon Dioxide (21-32) mmol/L Anion Gap (3-11) BUN (6-23) mg/dl Creatinine (0.6-1.2) mg/dl Est Cr Clr Drug Dosing Est GFR ( Amer) ml/min Est GFR (Non-Af Amer) ml/min BUN/Creatinine Ratio (10-20) Glucose (70-99(Fasting)) mg/dl Lactate 1.1 (0.4-2.0) mmol/L Calcium (8.5-10.1) mg/dl Total Bilirubin (0.2-1.0) mg/dl AST (13-39) U/L ALT (7-52) U/L Alkaline Phosphatase (34-104) U/L Troponin I High Sens (0-14) pg/ml C-Reactive Protein (0-0.5) mg/dl Total Protein (6.0-8.3) gm/dl Albumin (3.4-5.0) gm/dl Globulin (2.5-4.0) gm/dl Albumin/Globulin Ratio (0.9-2) Procalcitonin (0-0.5) ng/ml Urine Color Urine Appearance (Clear) Urine pH (4.5-7.5) Ur Specific Alliance (1.000-1.030) Urine Protein (Negative) Urine Glucose (UA) (Negative) Urine Ketones (Negative) Urine Blood (Negative) Urine Nitrite (Negative) Urine Bilirubin (Negative) Urine Urobilinogen (Negative) Ur Leukocyte Esterase (Negative) Urine WBC (Auto) (0-5) /hpf Urine RBC (Auto) (0-4) /hpf U Hyaline Cast (Auto) (0-5) /lpf U Epithel Cells (Auto) (0-5) /lpf Urine Bacteria (Auto) (Negative) POC Ur Test (NEG) Urine Opiates Screen (Neg) Ur Methadone, Qual (Neg) Urine Barbiturates (Neg) Ur Phencyclidine (PCP) (Neg) U Amphetamin/Meth Scrn (Neg) MDMA (Ecstasy) Screen (Neg) U Benzodiazepines Scrn (Neg) Ur Cocaine Metabolite (Neg) U Marijuana (THC) Screen (Neg) 04/18/22 04/18/22 04/18/22 Range/Units 23:18 23:18 23:18 WBC (4.8-10.8) K/ul RBC (3.93-5.22) M/uL Hgb (12.0-16.0) g/dl Hct (34.1-44.9) % MCV (80.0-100.0) fL MCH (25.0-34.0) pg MCHC (32.0-36.0) g/dL RDW Std Deviation (36.4-46.3) fL RDW Coeff of Alexia (11.5-14.5) % Plt Count (130-400) K/uL MPV (9.4-12.3) fL Immature Gran % (Auto) % Neut % (Auto) % Lymph % (Auto) % Gregory % (Auto) % Eos % (Auto) % Baso % (Auto) % Neut # (Auto) (1.4-6.5) K/uL Lymph # (Auto) (1.2-3.4) K/uL Gregory # (Auto) (0.24-0.82) K/uL Eos # (Auto) (0-0.50) K/uL Baso # (Auto) (0-0.2) K/uL Immature Gran # (Auto) (0.00-0.02) K/uL ESR (0-20) mm/hr PT 10.4 (9.0-12.0) Seconds INR 1.0 (0.9-1.1) APTT 27.7 (21.0-31.0) Seconds PTT Ratio 1.0 Sodium 137 (136-145) mmol/L Potassium 4.0 (3.5-5.1) mmol/L Chloride 101 (98-107) mmol/L Carbon Dioxide 30 (21-32) mmol/L Anion Gap 6 (3-11) BUN 14 (6-23) mg/dl Creatinine 0.79 (0.6-1.2) mg/dl Est Cr Clr Drug Dosing Not Reportable Est GFR ( Amer) 112.4 ml/min Est GFR (Non-Af Amer) 97.0 ml/min BUN/Creatinine Ratio 17.7 (10-20) Glucose 86 (70-99(Fasting)) mg/dl Lactate (0.4-2.0) mmol/L Calcium 9.3 (8.5-10.1) mg/dl Total Bilirubin 0.2 (0.2-1.0) mg/dl AST 17 (13-39) U/L ALT 22 (7-52) U/L Alkaline Phosphatase 77 (34-104) U/L Troponin I High Sens 2.8 (0-14) pg/ml C-Reactive Protein 3.25 H (0-0.5) mg/dl Total Protein 8.4 H (6.0-8.3) gm/dl Albumin 3.6 (3.4-5.0) gm/dl Globulin 4.8 H (2.5-4.0) gm/dl Albumin/Globulin Ratio 0.8 L (0.9-2) Procalcitonin < 0.05 (0-0.5) ng/ml Urine Color Urine Appearance (Clear) Urine pH (4.5-7.5) Ur Specific Alliance (1.000-1.030) Urine Protein (Negative) Urine Glucose (UA) (Negative) Urine Ketones (Negative) Urine Blood (Negative) Urine Nitrite (Negative) Urine Bilirubin (Negative) Urine Urobilinogen (Negative) Ur Leukocyte Esterase (Negative) Urine WBC (Auto) (0-5) /hpf Urine RBC (Auto) (0-4) /hpf U Hyaline Cast (Auto) (0-5) /lpf U Epithel Cells (Auto) (0-5) /lpf Urine Bacteria (Auto) (Negative) POC Ur Test (NEG) Urine Opiates Screen (Neg) Ur Methadone, Qual (Neg) Urine Barbiturates (Neg) Ur Phencyclidine (PCP) (Neg) U Amphetamin/Meth Scrn (Neg) MDMA (Ecstasy) Screen (Neg) U Benzodiazepines Scrn (Neg) Ur Cocaine Metabolite (Neg) U Marijuana (THC) Screen (Neg) Imaging Data Radiologist's Impression: Brain MRI 04/18/22 23:12 MRI OF THE BRAIN COMBO CLINICAL HISTORY: History stroke. Headaches. History of IV drug use. Clinical concern for abscess. COMPARISON STUDY: No prior studies are available for comparison at the time of dictation. TECHNIQUE: MRI of the brain was performed utilizing various T1 and T2-weighted sequences in the axial, sagittal, and coronal planes. Contrast-enhanced sequences were acquired following the administration of 8 cc of Gadavist. FINDINGS: Brain parenchyma: Right MCA territory encephalomalacia is consistent with a prior infarct. There is no hemorrhage or mass effect. There is no restricted diffusion typical for acute ischemia. There is a serpiginous focus of enhancement centered in the right basal ganglia. This measures approximately 2.5 x 0.9 x 0.7 cm as seen on axial image #14. No additional enhancing foci are identified on the postcontrast images. No extra-axial fluid collection is seen. The cerebellar tonsils are normal in configuration. Ventricles, sulci, and cisterns: Normal in configuration noting ex vacuo d ilatation of the right lateral ventricle. Pituitary and sella: Unremarkable. Intracranial vasculature: Normal flow voids are maintained at the skull base. There is loss of the right MCA flow void. Orbits: The bony orbits are grossly intact. Orbital contents are normal in appearance. Sinuses and mastoids: Clear. Calvarium: Unremarkable. Cervical cord: Partially visualized cervical spinal cord is normal in morphology and signal intensity. IMPRESSION: 1. There is no hemorrhage, midline shift, or evidence of acute ischemia. 2. Right MCA territory encephalomalacia is consistent with prior infarct. 3. There is a an indeterminate serpiginous focus of enhancement centered in the right basal ganglia. This is nonspecific, and likely related to subacute ischemia. An enhancing mass lesion or focus of infection is considered much less likely. There is no restricted diffusion to indicate abscess. Clinical correlation will be essential. Correlate with CT findings. A follow-up MRI in several weeks' time is recommended for reassessment. ACT 112: Negative or not required by law. Electronically signed by: Gaudencio Phillips M.D. 04/19/2022 7:18 AM ECG Data Additional Comments: Normal sinus rhythm @[address] elevation Prolonged QT Abnormal ECG When compared with ECG of 02-AUG-2021 03:36, No significant change was found MDM Narrative Physical exam and history were performed. Nursing notes, EMR, and Medication List were personally reviewed. Patient appears to have complicated history including IV drug abuse with subsequent embolic stroke. She did have a CT scan at another facility that suggested possibility of abscess. I did reach out to [facility] and was able to get records, and the story does seem accurate from what family is offering today. IV access was established and labs are obtained. Blood cultures were performed. Patient was given Ativan and sent to MRI for further evaluation. An order was placed for continuous cardiac monitoring. The monitor shows a rate of 76 with normal sinus rhythm. Patient's blood work is as above and was reviewed. She does not have a significantly elevated white blood cell count. She is mildly anemic at 9.9. She does not have significant electrolyte imbalance. Sed rate and CRP are both elevated. Lactic is negative with cultures pending. Troponin is negative. Urine is without distinct evidence of infection. Drug abuse screen is positive for methadone, which she takes on a daily basis. It is also positive for MDMA, however she is on mental health medications and this is likely a false positive. COVID is negative. MRI was reviewed by myself and radiology, and does seem to suggest more likely a subacute stroke or possibly cerebritis. I did discuss this with the on-call neurology team and they are comfortable monitoring this here. I did reach out to the on-call hospitalist team who agreed to evaluate the patient here in the ER. Please see their dictation for further patient course, plan, and disposition. The chart was completed utilizing [employer] Voice Recognition Software. Grammatical errors, random word insertions, pronoun errors, and incomplete sentences are an occasional consequence of this system due to software limitatio ns, ambient noise, and hardware issues. Any formal questions or concerns about the content, text, or information contained within the body of this dictation should be directly addressed to the provider for clarification. . 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
[2022-04-20] MEDS ORDERED: METHADONE HCL 10 MG TAB PO SCH
[2022-04-20] MEDS: PIPERACILLIN/TAZOBACTAM 4.5 GM in DEXTROSE 5% 100 ML IV SCH (05:06)
[2022-04-20 06:08] LABS: BUN Creatinine Ratio 21.9 (10-20); Calcium 9.1 mg/dl (8.5-10.1); Chol HDL Ratio 4.9 (0-5); Creatinine Clr Calc Pharmacy 136.7 ml/min; Est GFR (African American) 123.7 ml/min; Est GFR (Non-African American) 106.7 ml/min; Potassium 3.8 mmol/L (3.5-5.1)
[2022-04-20 06:13] LABS: Basophils # (auto) 0.05 K/uL (0-0.2); Basophils % (auto) 0.6 %; Eosinophils % (auto) 2.6 %; Hematocrit (blood only) 32.9 % (34.1-44.9); Hemoglobin 10.2 g/dl (12.0-16.0); Immature Granulocytes # (auto) 0.02 K/uL (0.00-0.02); Immature Granulocytes % (auto) 0.3 %; Lymphocytes # (auto) 2.93 K/uL (1.2-3.4); Lymphocytes % (auto) 37.8 %; Mean Corpuscular Hemoglobin 23.6 pg (25.0-34.0); Monocytes # (auto) 0.43 K/uL (0.24-0.82); Monocytes % (auto) 5.5 %; Neutrophils # (auto) 4.12 K/uL (1.4-6.5); Neutrophils % (auto) 53.2 %; Platelet Count 606 K/uL (130-400); RDW Coefficient of Variation 12.7 % (11.5-14.5); RDW Standard Deviation 34.7 fL (36.4-46.3); Red Blood Count 4.33 M/uL (3.93-5.22); White Blood Count 7.75 K/ul (4.8-10.8)
[2022-04-20] MEDS ORDERED: DAPTOmycin 650 MG in SYRINGE 0 ML IV SCH (07:00)
--- NOTE | 2022-04-20 08:33 | Neurology Progress Note ---
Date of Service April 20, 2022 Assessment & Plan (1) Dysarthria: (2) Homonymous hemianopsia due to recent cerebrovascular accident: (3) Left spastic hemiparesis: (4) Facial droop due to old stroke: (5) 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: (6) Drug abuse and dependence: (7) History of bipolar disorder: Plan This patient had an episode of acute dysarthria on April 17, and then back to baseline after a few hours. This could, overall, be consistent with a transient ischemic attack or nonspecific symptoms of a transient nature. On examination, she had no new symptoms but leftover symptoms from her embolic right middle cerebral artery stroke back in November of this year. She has been left with a significant left spastic alycia paresis, left facial droop, left homonymous hemianopsia, and some left-sided sensory deficits requiring gabapentin ( which helps ). She is unchanged today compared to admission. She was septic with endocarditis and has a history of IV and other drug abuse, as well as significant psychiatric issues including depression and bipolar disorder. Her MRI shows no new stroke but the enhancement inside the old stroke is likely subacute stroke issues ( not a new stroke, not a hemorrhage, and not consistent with an abscess). Cerebritis or infection cannot totally be excluded. Patient has no fever or elevated white count. She does have an elevated CRP however. Currently, neurologically, she is stable Echocardiogram shows some possible vegetations on the mitral valve with mitral regurgitation. CT angiography of the head neck showed only the right middle cerebral artery occlusion and no other vascular stenoses are anomalies. Recommendations: 1. Continue 81 milligram aspirin tablet daily to prevent small vessel ischemic disease. Even though her stroke was large, she should not have increased bleeding risk with this, given the number of months of healing. 2. Patient apparently is being considered for mitral valve replacement. 3. control blood pressure, glucose, and lipids as you are doing 4. I can follow up as an outpatient if needed/desired. She could return in 3-4 weeks with the PA in my office. Overall, I spent a total of 35 minutes with this case including review of records, direct evaluation the patient at bedside, and discussion of the case with the patient and RN at bedside and Patricia Lino PA-C Admission and Anticipated Discharge Date Admission Date: April 19, 2022 Subjective the patient has no new issues overnight. She does not have pain or headache and her speech is back to baseline. She has no vision issues. Nursing reports no incidence overnight. Blood pressure is 112/77. CBC showed an anemia but this was slightly improved compared to previous. Chem profile was unremarkable and lipid profile was normal. She has been in normal sinus rhythm in the 70s and 80s overnight. CT angiography of the head neck was unremarkable without any significant issues except for the right middle cerebral artery occlusion that resulted in her stroke earlier this summer. Echocardiogram shows moderate pulmonary hypertension and some questionable vegetations on the mitral valve with mitral regurgitation. The overall left ventricular size and function was otherwise unremarkable. Results & Data ([facility]) Vital Signs (Past 12 Hours) Vital Signs Temp Pulse Pulse Resp BP Pulse Ox O2 Del Method 04/20/22 08:06 36.5 C 73 16 112/77 94 Room Air 04/20/22 03:31 102/69 04/20/22 02:41 36.7 C 76 14 93/58 L 94 Room Air 04/19/22 22:46 36.3 C L 66 16 100/64 96 Room Air 04/19/22 22:41 71 Exam (Neuro) Physical Exam: She is awake and alert. Speech is without aphasia or dysarthria. Mood is normal and affect is appropriate. She is pleasant and cooperative. she has left-sided spastic alycia paresis as before. She has some left-sided facial droop as before. The right side is strong and there are no abnormal involuntary movements. PG Care Time/CCT Total # of Minutes Spent Total Time Spent with Patient: Total time spent is greater than 50% in coordination of care (as documented) at patient's floor/unit and/or counseling patient: Coding Level of Care Code 46813 Subseq Hosp Care Lvl 3 Diagnoses Dysarthria R47.1 Homonymous hemianopsia due to recent cerebrovascular accident I69.398; H53.469 Left spastic hemiparesis G81.14 Facial droop due to old stroke I69.392 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 I63.411 Drug abuse and dependence F19.20 History of bipolar disorder Z86.59 Time Spent (min) 35
[2022-04-20 08:51] LABS: Estimated Average Glucose 111 mg/dl; Hemoglobin A1C 5.5 % (4.5-5.6)
[2022-04-20] MEDS: GABAPENTIN 300 MG CAP PO SCH (08:53)
[2022-04-20] MEDS ORDERED: METHADONE ORAL SOLN 2 MG/ML PO SCH (09:00)
[2022-04-20] MEDS ORDERED: SERTRALINE HCL 50 MG TABLET PO SCH (09:00)
[2022-04-20] MEDS ORDERED: PATIENT'S OWN CONTROLLED MED 1 SCH (09:00)
[2022-04-20] MEDS ORDERED: hydrOXYzine HCl 25 MG TAB PO STA (09:50)
[2022-04-20] MEDS: ASPIRIN 81 MG ECTAB PO SCH (10:03)
--- NOTE | 2022-04-20 10:15 | Discharge Summary ---
Date of Service April 20, 2022 Admission HPI Per Admitting Provider 36 y/o female w/ PMHx of opioid use disorder, MRSA bacteremia and mitral valve endocarditis, pelvic abscess, L5-S1 discitis/osteomyelitis, L inferior cerebellar stroke, splenic abscess, and e faecalis bacteremia who was admitted to [facility] this summer for right MCA CVA 11/11 w/ residual R facial droop and dysarthria, and transferred to [facility], discharged end of December who presented w/ stroke like symptoms (slurred speech and facial droop w/o motor/sensory weakness) evening of 04/17/22. She went to [place] ED and had a head CT. The morning overread recommended MRI f/u. Patient had missed her slot at [place] and as a result presents to [facility] for workup. MRI statrad at [facility] shows possible subacute infarct vs infection superimposed on chronic right MCA territory infarct, less likely abscess. Patient complains of bilateral low back pain. History limited: she is a poor historian and is drowsy. She denies other complaints such as fever/chills, chest pain, SOB, or urinary symptoms. She denies recent substance use. She states her speech has improved. She denies headache or weakness. ED course: Ativan 1mg IV. Lorazepam 1mg. BP soft at 88/66 at time of exam. wbc 9.72. Hb 9.9. esr 68. BMP wnl. lactate 1.1. liver panel wnl. procal <0.05. UA 1+ bacteria. uds pos for methadone, mdma. bc pending. Principal Diagnosis Dysarthria-acute CVA ruled out Discharge Exam GENERAL: 36 yo Well-developed, well-nourished WF. NAD. LUNGS: Clear to auscultation bilaterally. No accessory muscle use. No W/R/R. CARDIOVASCULAR: Regular rate and rhythm. No M/G/R. No JVD. ABDOMEN: Soft, non-tender and non-distended. No palpable masses. Bowel sounds normoactive x 4 quad. EXTREMITIES: No edema. Non-tender. Peripheral pulses +2/4. NEUROLOGIC: A&O x3. L sided weakness appreciate in UE and LE. Very mild L facial droop. No dysarthria. PSYCHIATRIC: Cooperative. Appropriate mood and affect. SKIN: Warm, dry, intact. No rashes or lesions. Discharge Data Allergies Allergy/AdvReac Type Severity Reaction Status Date / Time No Known Allergies Allergy Unverified 03/25/22 10:10 Consultations 04/19/22 04:26 ED Decision to Admit Stat 04/19/22 10:04 Consult Neurology Routine Ordered Studies Brain MRI 04/18/22 23:12 MRI OF THE BRAIN COMBO CLINICAL HISTORY: History stroke. Headaches. History of IV drug use. Clinical concern for abscess. COMPARISON STUDY: No prior studies are available for comparison at the time of dictation. TECHNIQUE: MRI of the brain was performed utilizing various T1 and T2-weighted sequences in the axial, sagittal, and coronal planes. Contrast-enhanced sequences were acquired following the administration of 8 cc of Gadavist. FINDINGS: Brain parenchyma: Right MCA territory encephalomalacia is consistent with a prior infarct. There is no hemorrhage or mass effect. There is no restricted diffusion typical for acute ischemia. There is a serpiginous focus of enhancement centered in the right basal ganglia. This measures approximately 2.5 x 0.9 x 0.7 cm as seen on axial image #14. No additional enhancing foci are identified on the postcontrast images. No extra-axial fluid collection is seen. The cerebellar tonsils are normal in configuration. Ventricles, sulci, and cisterns: Normal in configuration noting ex vacuo dila tation of the right lateral ventricle. Pituitary and sella: Unremarkable. Intracranial vasculature: Normal flow voids are maintained at the skull base. There is loss of the right MCA flow void. Orbits: The bony orbits are grossly intact. Orbital contents are normal in appearance. Sinuses and mastoids: Clear. Calvarium: Unremarkable. Cervical cord: Partially visualized cervical spinal cord is normal in morphology and signal intensity. IMPRESSION: 1. There is no hemorrhage, midline shift, or evidence of acute ischemia. 2. Right MCA territory encephalomalacia is consistent with prior infarct. 3. There is a an indeterminate serpiginous focus of enhancement centered in the right basal ganglia. This is nonspecific, and likely related to subacute ischemia. An enhancing mass lesion or focus of infection is considered much less likely. There is no restricted diffusion to indicate abscess. Clinical correlation will be essential. Correlate with CT findings. A follow-up MRI in several weeks' time is recommended for reassessment. ACT 112: Negative or not required by law. Electronically signed by: Gaudencio Phillips M.D. 04/19/2022 7:18 AM Head CTA 04/19/22 12:26 CT ANGIOGRAM OF THE BRAIN CLINICAL HISTORY: Transient ischemic attack COMPARISON STUDY: MRI of the brain dated 04/18/2022. TECHNIQUE: Following the IV administration of 120 cc of Optiray 320, CT angiogram of the brain was performed from the skull base to the vertex. Images are reviewed in the axial, sagittal, and coronal planes. 3-D MIPS images are created and assessed. IV contrast was administered without complication. A dose lowering technique was utilized adhering to the principles of ALARA. Note that interpretation is significantly suboptimal without an unenhanced CT of the brain. CT DOSE: 487.34 mGy.cm FINDINGS: Brain parenchyma: Right MCA territory encephalomalacia is consistent with a previous infarct. There is nonmass-like serpiginous enhancement in the right basal ganglia. There is no evidence of hemorrhage, mass effect, or acute territorial ischemia routine angiographic phase technique. No extra-axial fluid collection is seen. Ventricles, sulci, and cisterns: Normal in configuration. CT angiogram of the brain: The internal carotid arteries are patent at the skull base, as are the left middle cerebral artery and both anterior cerebral arteries. There is occlusion of the right middle cerebral artery. The vertebrobasilar system and posterior cerebral arteries are widely patent. The left vertebral artery is dominant. There is no aneurysm, high-grade stenosis, or focal vessel cutoff identified throughout the intracranial circulation. Dural sinuses: Clear as visualized. Orbits: The bony orbits are intact. The orbital contents are normal as visualized. Sinuses and mastoids: The paranasal sinuses are clear. The mastoid air cells are well pneumatized. Calvarium: Unremarkable. IMPRESSION: 1. Occlusion of the right middle cerebral artery. 2. The remaining intracranial vessels are patent. 3. Right MCA territory encephalomalacia is consistent with a prior infarct. 4. Serpiginous nonmasslike enhancement is again seen in the right basal ganglia. This was better assessed on today's MRI of the brain. ACT 112: Negative or not required by law. Electronically signed by: Gaudencio Phillips M.D. 04/19/2022 2:10 PM Neck CTA 04/19/22 12:26 CT angio neck with con CLINICAL HISTORY: 36 years-old Female with tia. Acute stroke like symptoms COMPARISON STUDY: CTA head of same day, brain MRI 04/18/2022. TECHNIQUE: Following the IV administration of 1 20 mL of Optiray, CT angiogram of the neck was performed from the aortic arch to the skull base. Images are re viewed in the axial, sagittal, and coronal planes. 3-D MIPS images are created and assessed. IV contrast was administered without complication. All measurements were calculated based on NASCET criteria. A dose lowering technique was utilized adhering to the principles of ALARA. CT DOSE: 545.11 mGy.cm FINDINGS: Three-vessel morphology of the thoracic aortic arch. There is patency of the innominate and imaged subclavian arteries. The common and internal carotid arteries are widely patent. There is occlusion of the right middle cerebral artery. Patent and codominant vertebral arteries. Basilar artery is patent. Intralobular septal thickening with groundglass densities of the lungs. No pneumothorax. Unremarkable soft tissues. Degenerative changes of the cervical spine. Chronic right MCA territory infarct. Enhancement of the right basal ganglia is better characterized on the recent brain MRI. Degenerative changes of the cervical spine. IMPRESSION: 1. Unremarkable CTA of the neck. 2. Occlusion of the right MCA with old right MCA infarct. 3. Intralobular septal thickening with groundglass opacities of the lung apices suggestive of pulmonary edema. ACT 112: Negative or not required by law. The above report was generated using voice recognition software. It may contain grammatical, syntax or spelling errors. Electronically signed by: Alex Ibarra M.D. 04/19/2022 2:32 PM Hospital Course (1) Stroke-like symptoms: 36 y/o female w/ PMHx of opioid use disorder, MRSA bacteremia and mitral valve endocarditis, pelvic abscess, L5-S1 discitis/osteomyelitis, L inferior cerebellar stroke, splenic abscess, and e faecalis bacteremia who was admitted to [facility] this summer for right MCA CVA 11/11 w/ residual R facial droop and dysarthria, and transferred to [facility], discharged end of December who presented w/ stroke like symptoms (slurred speech and facial droop w/o motor/sensory weakness) evening of 04/17/22. - at admission, no focal neuro deficits noted though patient was sleepy/not fully cooperative; limited exam - hx of bacterial endocarditis w/ CVA from possible septic emboli noted - will cover empirically w/ dapto/zosyn; will adequately cover MRSA and e faecalis. 81.6kg (ED) today vs 134kg 07/2021. repeat weight ordered, consider repeating weight after arrives on PCU floor - Limited echo performed-mildly dilated left ventricle with grossly normal systolic function. EF 65-70%. Ill defined mobile echodensity involving the mitral valve, suspicious for vegetation, possibly significant mitral regurg however not fully investigated. Mod to severe pulm htn. Pt refuses further images. Previous [facility] echo 12/2021 reported MV vegetation with severe MR and moderate pulm htn. - blood cultures pending but thus far NGTD, procal neg, afebile and no leukocytosis - makes acute infection very unlikely, abx can be discontinued - MRI demonstrated area in R basal ganglia, neuro consulted, feels this is subacute related to old stroke - Will add daily ASA 81mg as recommended, no need to add statin given age and normal lipids (2) Drug abuse and dependence: - states takes methadone 80mg qam - no records in [facility] - patient states follows [facility] in [place] - resumed her methadone, will be given one dose to go home with as she will need it for Friday (clinic is closed) and can f/u on Friday (3) History of bipolar disorder: - home meds resumed (4) Anxiety: - home meds resumed (5) Endocarditis: - Was previously treated at [facility] - Will need to f/u with cardiology/cardiothoracic surgery to scheduled mitral valve replacement Plan Patient's dysarthria has resolved. No evidence of new stroke. Plan for d/c home today with only addition to current regimen being aspirin as above. Follow up with PA in neuro clinic in 3-4 weeks. f/u with pcp, [place] [facility], and methadone clinic. Plan d/w Dr. Patel who has also seen and evaluated this patient prior to discharge and agrees with aforementioned. Total Time Total Time Spent Total Time Spent (In Minutes): >30 minutes Discharge Plan Discharge Items Patient Disposition: Home - Self-Care Reason For Visit: STROKE LIKE SYMPTOMS Discharge Diagnosis: stroke-like symptoms, no new stroke Activity: Resume your previous activity Non-emergency contact: Primary Care Provider Call non-emergency contact if: you have any medication questions and your symptoms worsen Follow-up/Referrals: Stacey Arce MD [Primary Care Provider] - Amy Irizarry PA-C [Physician Industrial Machinery Mechanic] - (3-4 weeks) Diet: Heart Healthy Addtl Attending Provider Instructions: You were hospitalized due to stroke-like symptoms including slurred speech. Thankfully, the MRI of your brain did not show any new strokes. There is also no signs to suggest infection, but given your history, you were covered with antibiotics upon admission. Neurology was consulted, and felt that these antibiotics can be safely stopped. It was noted since your last stroke, that you were not started on any medications to help thin out your platelets (which are the part of your blood responsible for clotting) such as Aspirin. It is recommended by neurology that you are started on aspirin immediately and continue to take it once a day (81 mg). It is important that you follow up with your cardiothoracic specialists in [place] regarding your mitral valve which needs replaced sooner rather than later. You will be arranged for a follow up in our neurology clinic in 3-4 weeks. You are being given one dose of Methadone for your scheduled dose on 04/21/22. Please take as directed and follow up with the Methadone clinic that you are established with on Sunday 04/22. If you have any questions or concerns after you leave the hospital, please contact the nonemergency number listed on your discharge paperwork. In the event of a medical emergency, call 911. Pending Studies at Discharge: No Stand-Alone Forms: [facility], Sm[facility] Cessation Medications and DC Order Prescriptions: New aspirin 81 mg Tablet,Delayed Release (Dr/Ec) 81 mg PO QAM Qty: 30 0RF Continued acetaminophen [Tylenol Extra Strength] 500 mg tablet 500 mg PO QID PRN Rx Instructions: [facility] 8 furosemide [Lasix] 20 mg tablet 20 mg PO DAILY Rx Instructions: [facility] 8 polyethylene glycol 3350 [Miralax] 17 gram/dose powder 17 g PO DAILY potassium chloride 20 mEq tablet extended release 20 meq PO DAILY Rx Instructions: [facility] 8 sennosides [Evac-U-Gen (sennosides)] 8.6 mg tablet 17.2 mg PO BID Rx Instructions: [facility] 8 magnesium oxide 400 mg (241.3 mg magnesium) tablet 600 mg PO BID Qty: 270 3RF Rx Instructions: [facility] 815 melatonin 3 mg capsule 6 mg PO HS PRN (Reason: sleep) Qty: 180 3RF Rx Instructions: [facility] 815 trazodone 50 mg tablet 50 mg PO HS Qty: 30 0RF Rx Instructions: [facility] 8/15 baclofen 5 mg tablet 5 mg PO TID Qty: 90 2RF gabapentin 300 mg capsule 300 mg PO TID Qty: 90 3RF sertraline 100 mg tablet 150 mg PO DAILY 90 Days Qty: 135 1RF Rx Instructions: DC [facility] 815 (DME) Wheelchair (Manual) Device See Rx Instructions .Route Qty: 1 0RF Rx Instructions: As [id number] Z86.73 (DME) Hospital Bed Misc See Rx Instructions .Route Qty: 1 0RF Rx Instructions: As directed G81.9, I63.411 miscellaneous medical supply Misc 1 ea miscellaneous PRN Qty: 1 0RF Rx Instructions: "Roho" seat cushion Z86.73 (DME) Manual Wheelchair Device See Rx Instructions .Route Qty: 1 0RF Rx Instructions: alycia drive WC please G81.9 Discharge Orders: Discharge Order (Routine); Ordered 04/20/22 Ordered By: Abbi Lino Admission Data Admit Date/Time: 04/19/22 06:06 Attending Provider: Modesto Quach Admit Provider: Kimo Garcia Primary Care Provider: Stacey Arce Other Providers: Yadiel Romeo ; Cole Sheriff Other Interventions: Discharge Summary Assessment (RN) Last Done: 04/20/22 11:03 Supervising Physician Co-Signing Physician Notes Patient seen and examined, chart reviewed, case discussed with Abbi Lino PA-C and I agree with the assessment and plan as above except as otherwise noted Labs and images reviewed Patient is a 36-year-old female with complex past medical history including drug use, endocarditis, and septic emboli who presented for evaluation of strokelike symptoms. On admission patient did not have focal neuro symptoms, MRI did demonstrate right basal ganglia stroke which was reviewed by neurology who felt this was subacute related to old stroke and did not represent a new event. Aspirin was added daily, no statin was recommended based on age and lipids. MV with known vegetation, previously treated with antibiotic course with ongoing infectious symptoms and negative blood cultures who scheduled for CT surgery follow-up. Patient is on methadone, clinic is closed on Sundays. This was discussed with pharmacy, patient discharged with one-time dose of methadone 80 mg for 04/21 and will resume follow-up with her clinic on Friday. Patient seen at bedside and is very anxious for discharge, does not wish to have any further testing and feels comfortable at her normal level of health and feels her presenting symptoms have resolved. Return precautions discussed, methadone discussed. Patient does have systolic murmur, skin is warm and dry, lungs are clear. Coding Level of Care Code D/C DAY MANAGEMENT >30 MINS Diagnoses Stroke-like symptoms R29.90 Drug abuse and dependence F19.20 History of bipolar disorder Z86.59 Anxiety F41.9 Endocarditis I33.0 Chronicity: subacute Endocarditis type: infective Infective endocarditis organism: unspecified organism
--- NOTE | 2022-04-20 22:53 | Electrocardiogram Report ---
Test Reason : Blood Pressure : / mmHG Vent. Rate : 082 BPM Atrial Rate : 082 BPM P-R Int : 142 ms QRS Dur : 094 ms QT Int : 422 ms P-R-T Axes : 067 063 039 degrees QTc Int : 493 ms Normal sinus rhythm Prolonged QT Abnormal ECG When compared with ECG of 02-AUG-2021 03:36, QT has lengthened Confirmed by Leonard Tovar ([id number]) on 04/20/2022 10:53:09 PM Referred By: Stacey Arce Confirmed By:Leonard Tovar
[2022-04-24 14:01] LABS: MDA negative; MDEA negative; MDMA (Ecstasy) Urine, Confirm negative; Methadone, Ur Metabolite >10000 ng/mL (<100)
== END 2022-04-20 12:31 | disposition home or self-care (01) ==
LOC: ED 21:59 → SUATTDRO 04-19 06:06 → INTOOBSV 04-19 06:06 → EDINP 04-19 06:06 → 2S 04-19 10:03

== ENCOUNTER 2022-09-21 16:16 | Observation (INO) ==
[2022-09-21] MEDS ORDERED: ONDANSETRON INJ 2 MG/ML 2 ML VIAL IV STA (16:40)
[2022-09-21] MEDS ORDERED: SODIUM CHLORIDE 0.9% 1000ML 1,000 ML IV ONE (16:40)
--- NOTE | 2022-09-21 16:44 | Emergency Department Note ---
Impression & Plan Left-sided weakness, History of stroke, Nausea ED Provider Note Provider: Ge Zepeda MD DATE OF SERVICE: 09/21/2022 CHIEF COMPLAINT: Left leg issues HISTORY OF PRESENT ILLNESS: Patient is a 37-year-old female history of bipolar disorder, embolic stroke, PCOS, endocarditis status post mitral valve replacement this past June presenting here today with report of increased issues with her left leg since around 9 PM last night. Patient with an unfortunate history of stroke in November 2021 with resultant left-sided issues. However they state that since 9 PM last night she is having increased difficulty moving and lifting her left leg and is now having some urinary incontinence patient relays some of this is happening when she has been vomiting heart for the last day or 2. Seemed a bit pale and sweaty yesterday. Had some chest pain last evening but denies any today and denies any now. Denies abdominal pain at any point. No falls reported. Leg issues now causing her difficulty to use a couple steps she has to do at home. Reportedly did take her medications. Question if her speech is a little bit off and at times family states she seems to just stare a bit. No generalized seizure activity reported. PAST MEDICAL HISTORY: As noted above MEDICATIONS: Reviewed home medications and includes Elisonidois SOCIAL HISTORY: Lives at home, has home nursing come visit PHYSICAL EXAM: GENERAL: alert and oriented in no acute distress on stretcher Head: normocephalic and atraumatic EYES: No injection, discharge or icterus. PERRL, EOMI. NECK: Trachea midline. Supple. ENT: Mucous membranes pink and moist. LUNGS: Airway patent. No retractions. Breath sounds clear with good air entry bilaterally. HEART: Regular rate and rhythm. No chest wall tenderness ABDOMEN: Soft and non-tender, without guarding or rebound. SKIN: Acyanotic, warm, dry, without rashes EXTREMITIES: Without swelling, tenderness or deformity NEUROLOGICAL: Minimal movement of the left hand. Some slight antigravity of the left leg. Intact sensation left arm and leg as well as the right arm and leg. Good movement of the right arm and leg. Does appear somewhat generally fatigued but answering questions. No obvious severe facial droop or aphasia although occasionally a slight bit slow to respond. No gaze preference noted. Tongue midline. Assist of the toilet here and able to bear weight and transfer from wheelchair to toilet EK bpm normal sinus rhythm. No PVC or PAC. No acute ST segment elevation with a QTc of 396. Some anterior T wave flattening noted. CONTINUOUS CARDIAC MONITORING: was ordered and showed a heart rate of 80s bpm in normal sinus rhythm GCS 15. Patient's laboratory studies and imaging reviewed. Differential includes Infection, dehydration, metabolic abnormality, hypo/hyperglycemia, electrolyte disturbance, anemia, hypoxia, cardiac sources, neurologic, as well as other pathologies. IMPRESSION/MEDICAL DECISION MAKING: Patient with unfortunate history of right MCA CVA with resultant left-sided issues now with some worsening of this since last night and urinary incontinence. No new trauma reported. History of cardiac surgery just over 2 months ago as well. Symptoms reportedly started 9 PM last night 20 hours ago at this time since her last known well and does not candidate for thrombolytics. Unsure if symptoms represents new CVA or possible recrudescence. Will complete CTs and CT angiograms of the head and neck as well as basic blood work and urine sample here today. Not having active chest pain at this point with some last night. Anticoagulated by report. Lower suspicion for PE. Without active chest pain now complete EKG and troponin as well as chest x-ray. Benign abdomen although reports nausea. Does appear somewhat pale and slightly diaphoretic. Question possible infection. Does not report gross seizure activity family reports at times she seems to stare off a bit. Urine symptoms have been developing over the last several days with some urinary incontinence. Again the CT of the head will be completed. We will send cultures as she does have an infectious history distantly for abscesses last year just prior to her stroke. Off antibiotics finishing last week for sternal wound infection that is now healing okay. Blood work here does show a lactate of 2.6. Afebrile upon arrival and not tachycardic. Again does appear somewhat diaphoretic and given some IV fluids. Blood work with stable microcytic anemia and no leukocytosis. No significant electrolyte abnormality or signs of acute hepatitis or troponin elevation. Negative . Lipase sent but does not seem that classic for pancreatitis. No abdominal pain and doubt acute intra-abdominal pathology. Do not feel CT indicated at this time in light of mainly her leg issue. Chest x- ray per my review and radiology questions cardiomegaly and may be mild pulmonary edema state but no evidence of pneumonia or pneumothorax. Urinalysis not indica tive of infection. Discussed with patient and family at bedside findings. Concerns given her increased weakness and difficulty now moving around according to family of the patient. Patient was somewhat hesitant to stay, but discussed safety concerns and that we could still miss a small acute stroke not found on the CT. willing to stay and hospitalist was contacted for evaluation of the patient. Case discussed DIAGNOSIS: Left-sided weakness, history of CVA, nausea DISPOSITION: Hospitalist will evaluate Patient was agreeable with this plan. Past Med/Surg History Medical History (Updated 09/21/22 @ 21:41 by Ge Zepeda M.D.) Anemia Anxiety Bipolar disorder Drug abuse and dependence Endocarditis History of embolic stroke Rt MCA PCOS (polycystic ovarian syndrome) Surgical History (Updated 08/07/22 @ 13:12 by Stacey Arce MD) H/O mitral valve replacement History of section History of open heart surgery History of repair of ACL History of tubal ligation Family History Grandmother (Paternal) Breast cancer Grandfather (Maternal) Myocardial infarction Graves disease Grandfather (Paternal) Myocardial infarction Denies family history of Colon cancer Ovarian cancer Prostate cancer Social History (Updated 08/07/22 @ 12:07 by ROD Diaz) Smoking Status: Never smoker Tobacco Type: Cigarettes packs per day: 1; Second Hand Exposure: No; Hx Alcohol Use: No Hx Substance Use: No Preferred Language: Azerbaijani Communication Ability: Effective Visual Impairment: No Limitations Hearing Ability: Normal Body Mechanic Apprentice Required: No Beliefs That Will Affect Care: None marital status: Single Current Living Situation: Family Current Living Situation Comment: boyfriend and her 3 daughters 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 Feels Safe at Home: Yes Childhood Exposure to Second-Hand Smoke: No Diet Comment: regular Dental Care, Regularly: No Physical Activity Frequency: Does not Exercise Seatbelt Use: sometimes Sunscreen Use: No Assistive Devices: Cane, Denture - Upper, Glasses, Walker and Wheelchair Allergies Allergies Allergy/AdvReac Type Severity Reaction Status Date / Time atorvastatin AdvReac Muscle Pain Verified 09/21/22 18:21 Home Meds Home Medications Medication Instructions Recorded Confirmed acetaminophen 500 mg tablet 500 mg PO QID PRN Pain 02/05/22 09/21/22 (Tylenol Extra Strength) polyethylene glycol 3350 17 17 g PO DAILY PRN constipation 08/09/22 09/21/22 gram/dose oral powder (Miralax) sennosides 8.6 mg tablet 17.2 mg PO BID PRN constipation 08/09/22 09/21/22 (Evac-U-Gen (sennosides)) aripiprazole 15 mg tablet 15 mg PO DAILY 09/21/22 09/21/22 epinephrine 0.3 mg/0.3 mL 0.3 ml IM ONCE PRN Allergic 09/21/22 09/21/22 injection, auto-injector Reaction methadone 10 mg/mL oral concentrate 83 mg PO QAM 09/21/22 09/21/22 Previous Rx's Medication Instructions Recorded Wheelchair (Manual) #1 ea 03/25/22 magnesium oxide 400 mg (241.3 mg 600 mg PO BID #270 tabs 03/27/22 magnesium) tablet Hospital Bed [facility] (Hospital #1 ea 04/18/22 Bed) Wheelchair (Manual) (Manual #1 ea 04/18/22 Wheelchair) baclofen 5 mg tablet 5 mg PO TID #90 tabs 08/07/22 albuterol sulfate 90 mcg/actuation 1 inh inhalation QID PRN shortness 08/09/22 breath activated powder inhaler of breath or wheezing #1 ea furosemide 40 mg tablet 40 mg PO BID #60 tabs 08/09/22 melatonin 5 mg tablet 10 mg PO HS sleep #1 tab 08/09/22 nicotine 21 mg/24 hr daily 1 patch transdermal Q24H 6 weeks 08/09/22 transdermal patch (Nicoderm CQ) #45 ea metoprolol tartrate 50 mg tablet 25 mg PO BID #30 tabs 08/28/22 sertraline 100 mg tablet 200 mg PO DAILY 90 days #180 tabs 08/28/22 clonazepam 0.5 mg tablet 0.5 mg PO PM #30 tabs 09/04/22 gabapentin 600 mg tablet 600 mg PO TID #90 tabs 09/04/22 pantoprazole 40 mg tablet,delayed 40 mg PO DAILY #90 tabs 09/04/22 release potassium chloride 20 mEq 20 meq PO BID #60 tabs 09/04/22 tablet,extended release trazodone 50 mg tablet 50 mg PO HS #30 tabs 09/04/22 apixaban 2.5 mg tablet 2.5 mg PO BID #60 tabs 09/05/22 Results & Data (ED) Vital Signs Vital Signs - 24 hr 09/21/22 16:18 09/21/22 17:08 09/21/22 17:50 Temperature 36.8 C Temperature Source Temporal Artery Scan Pulse Rate 87 85 Pulse Rate [Right Brachial] 83 Pulse Rhythm [Right Brachial] Regular Pulse Strength [Right Brachial] Normal Respiratory Rate 18 18 Respiratory Effort / Characteristics Non-Labored Spontaneous Non-Labored Spontaneous Respiratory Depth Normal Normal Respiratory Pattern Regular Regular Blood Pressure 115/59 L Blood Pressure [Right Arm] 95/53 L Blood Pressure Mean 77 Blood Pressure Mean [Right Arm] 67 Blood Pressure Position [Right Arm] Lying Pulse Oximetry 95 94 Oxygen Delivery Method Room Air Nasal Cannula Oxygen Flow Rate 2 Sepsis Recent Fever Within 48 Hours No Sepsis New/Unexplained Change in Mental Status No Sepsis Action Taken by Nursing No Action Required 09/21/22 17:57 Temperature 36.9 C Temperature Source Oral Pulse Rate Pulse Rate [Right Brachial] 81 Pulse Rhythm [Right Brachial] Regular Pulse Strength [Right Brachial] Normal Respiratory Rate 19 Respiratory Effort / Characteristics Non-Labored Spontaneous Respiratory Depth Normal Respiratory Pattern Regular Blood Pressure Blood Pressure [Right Arm] 95/53 L Blood Pressure Mean Blood Pressure Mean [Right Arm] 67 Blood Pressure Position [Right Arm] Pulse Oximetry 95 Oxygen Delivery Method Room Air Oxygen Flow Rate Sepsis Recent Fever Within 48 Hours Sepsis New/Unexplained Change in Mental Status Sepsis Action Taken by Nursing Laboratory Data 09/21/22 17:02 09/21/22 17:02 Lab Results 09/21/22 09/21/22 09/21/22 Range/Units 03:34 16:32 17:00 WBC (4.8-10.8) K/ul RBC (4.20-5.40) M/uL Hgb (12.0-16.0) g/dl POC Hgb (12.0-16.0) g/dl Hct (37.0-47.0) % POC Hct (37-47) % MCV (80.0-100.0) fL MCH (25.0-34.0) pg MCHC (32.0-36.0) g/dL RDW Std Deviation (36.4-46.3) fL RDW Coeff of Alexia (11.5-14.5) % Plt Count (130-400) K/uL MPV (9.4-12.4) fL Immature Gran % (Auto) % Neut % (Auto) % Lymph % (Auto) % Harrison % (Auto) % Eos % (Auto) % Baso % (Auto) % Neut # (Auto) (1.40-6.50) K/uL Lymph # (Auto) (1.2-3.4) K/uL Harrison # (Auto) (0.11-0.59) K/uL Eos # (Auto) (0-0.50) K/uL Baso # (Auto) (0-0.2) K/uL Immature Gran # (Auto) (0.01-0.20) K/uL PT (9.0-12.0) Seconds INR (0.9-1.1) APTT (21.0-31.0) Seconds PTT Ratio POC Sodium (135-144) mmol/L Sodium (136-145) mmol/L POC Potassium (3.3-5.0) mmol/L Potassium (3.5-5.1) mmol/L POC Chloride (101-112) mmol/L Chloride (98-107) mmol/L Carbon Dioxide (21-32) mmol/L POC Total CO2 (24-31) mmol/L Anion Gap (3-11) POC Anion Gap (16-25) mmol/L POC BUN (7-18) mg/dl BUN (6-23) mg/dl Creatinine (0.6-1.2) mg/dl POC Creatinine (0.6-1.3) mg/dl Est Cr Clr Drug Dosing ml/min Est GFR ( Amer) ml/min Est GFR (Non-Af Amer) ml/min BUN/Creatinine Ratio (10-20) Glucose (70-99(Fasting)) mg/dl POC Glucose 130 H (70-99) mg/dl POC Glucose (other) (70-99) mg/dl Lactate 2.6 H* (0.4-2.0) mmol/L Calcium (8.6-10.3) mg/dl POC Ioniz Calcium Lucia (1.12-1.32) mmol/l Magnesium (1.7-2.4) mg/dl Total Bilirubin (0.2-1.0) mg/dl AST (13-39) U/L ALT (7-52) U/L Alkaline Phosphatase (34-104) U/L Troponin I High Sens (0-14) pg/ml Total Protein (6.0-8.3) gm/dl Albumin (3.4-5.0) gm/dl Globulin (2.5-4.0) gm/dl Albumin/Globulin Ratio (0.9-2) Lipase (11-82) U/L Procalcitonin (0-0.5) ng/ml HCG, Qual (Negative) Urine Color Yellow Urine Appearance Turbid A (Clear) Urine pH 7.5 (4.5-7.5) Ur Specific [place] 1.028 (1.000-1.030) Urine Protein Negative (Negative) Urine Glucose (UA) Negative (Negative) Urine Ketones Negative (Negative) Urine Blood Negative (Negative) Urine Nitrite Negative (Negative) Urine Bilirubin Negative (Negative) Urine Urobilinogen Negative (Negative) Ur Leukocyte Esterase Negative (Negative) Urine WBC (Auto) 1-5 (0-5) /hpf Urine RBC (Auto) 0-4 (0-4) /hpf U Hyaline Cast (Auto) 0 (0-5) /lpf U Epithel Cells (Auto) >30 H (0-5) /lpf Urine Bacteria (Auto) Negative (Negative) SARS-CoV-2, RNA, NAAT (NEGATIVE) Blood Type Antibody Screen 09/21/22 09/21/22 09/21/22 Range/Units 17:02 17:02 17:02 WBC 8.20 (4.8-10.8) K/ul RBC 4.89 (4.20-5.40) M/uL Hgb 10.7 L (12.0-16.0) g/dl POC Hgb (12.0-16.0) g/dl Hct 35.6 L (37.0-47.0) % POC Hct (37-47) % MCV 72.8 L (80.0-100.0) fL MCH 21.9 L (25.0-34.0) pg MCHC 30.1 L (32.0-36.0) g/dL RDW Std Deviation 39.8 (36.4-46.3) fL RDW Coeff of Alexia 15.4 H (11.5-14.5) % Plt Count 511 H (130-400) K/uL MPV 8.8 L (9.4-12.4) fL Immature Gran % (Auto) 0.2 % Neut % (Auto) 65.8 % Lymph % (Auto) 25.6 % Harrison % (Auto) 5.0 % Eos % (Auto) 3.2 % Baso % (Auto) 0.2 % Neut # (Auto) 5.39 (1.40-6.50) K/uL Lymph # (Auto) 2.10 (1.2-3.4) K/uL Harrison # (Auto) 0.41 (0.11-0.59) K/uL Eos # (Auto) 0.26 (0-0.50) K/uL Baso # (Auto) 0.02 (0-0.2) K/uL Immature Gran # (Auto) 0.02 (0.01-0.20) K/uL PT 10.6 (9.0-12.0) Seconds INR 1.0 (0.9-1.1) APTT 28.5 (21.0-31.0) Seconds PTT Ratio 1.0 POC Sodium (135-144) mmol/L Sodium (136-145) mmol/L POC Potassium (3.3-5.0) mmol/L Potassium (3.5-5.1) mmol/L POC Chloride (101-112) mmol/L Chloride (98-107) mmol/L Carbon Dioxide (21-32) mmol/L POC Total CO2 (24-31) mmol/L Anion Gap (3-11) POC Anion Gap (16-25) mmol/L POC BUN (7-18) mg/dl BUN (6-23) mg/dl Creatinine (0.6-1.2) mg/dl POC Creatinine (0.6-1.3) mg/dl Est Cr Clr Drug Dosing ml/min Est GFR ( Amer) ml/min Est GFR (Non-Af Amer) ml/min BUN/Creatinine Ratio (10-20) Glucose (70-99(Fasting)) mg/dl POC Glucose (70-99) mg/dl POC Glucose (other) (70-99) mg/dl Lactate (0.4-2.0) mmol/L Calcium (8.6-10.3) mg/dl POC Ioniz Calcium Lucia (1.12-1.32) mmol/l Magnesium (1.7-2.4) mg/dl Total Bilirubin (0.2-1.0) mg/dl AST (13-39) U/L ALT (7-52) U/L Alkaline Phosphatase (34-104) U/L Troponin I High Sens (0-14) pg/ml Total Protein (6.0-8.3) gm/dl Albumin (3.4-5.0) gm/dl Globulin (2.5-4.0) gm/dl Albumin/Globulin Ratio (0.9-2) Lipase (11-82) U/L Procalcitonin (0-0.5) ng/ml HCG, Qual (Negative) Urine Color Urine Appearance (Clear) Urine pH (4.5-7.5) Ur Specific [place] (1.000-1.030) Urine Protein (Negative) Urine Glucose (UA) (Negative) Urine Ketones (Negative) Urine Blood (Negative) Urine Nitrite (Negative) Urine Bilirubin (Negative) Urine Urobilinogen (Negative) Ur Leukocyte Esterase (Negative) Urine WBC (Auto) (0-5) /hpf Urine RBC (Auto) (0-4) /hpf U Hyaline Cast (Auto) (0-5) /lpf U Epithel Cells (Auto) (0-5) /lpf Urine Bacteria (Auto) (Negative) SARS-CoV-2, RNA, NAAT (NEGATIVE) Blood Type A Positive Antibody Screen NEGATIVE 09/21/22 09/21/22 09/21/22 Range/Units 17:02 17:02 17:02 WBC (4.8-10.8) K/ul RBC (4.20-5.40) M/uL Hgb (12.0-16.0) g/dl POC Hgb (12.0-16.0) g/dl Hct (37.0-47.0) % POC Hct (37-47) % MCV (80.0-100.0) fL MCH (25.0-34.0) pg MCHC (32.0-36.0) g/dL RDW Std Deviation (36.4-46.3) fL RDW Coeff of Alexia (11.5-14.5) % Plt Count (130-400) K/uL MPV (9.4-12.4) fL Immature Gran % (Auto) % Neut % (Auto) % Lymph % (Auto) % Harrison % (Auto) % Eos % (Auto) % Baso % (Auto) % Neut # (Auto) (1.40-6.50) K/uL Lymph # (Auto) (1.2-3.4) K/uL Harrison # (Auto) (0.11-0.59) K/uL Eos # (Auto) (0-0.50) K/uL Baso # (Auto) (0-0.2) K/uL Immature Gran # (Auto) (0.01-0.20) K/uL PT (9.0-12.0) Seconds INR (0.9-1.1) APTT (21.0-31.0) Seconds PTT Ratio POC Sodium (135-144) mmol/L Sodium 135 L (136-145) mmol/L POC Potassium (3.3-5.0) mmol/L Potassium 3.8 (3.5-5.1) mmol/L POC Chloride (101-112) mmol/L Chloride 100 (98-107) mmol/L Carbon Dioxide 28 (21-32) mmol/L POC Total CO2 (24-31) mmol/L Anion Gap 7 (3-11) POC Anion Gap (16-25) mmol/L POC BUN (7-18) mg/dl BUN 23 (6-23) mg/dl Creatinine 0.90 (0.6-1.2) mg/dl POC Creatinine (0.6-1.3) mg/dl Est Cr Clr Drug Dosing 122.0 ml/min Est GFR ( Amer) 95.3 ml/min Est GFR (Non-Af Amer) 82.3 ml/min BUN/Creatinine Ratio 25.6 H (10-20) Glucose 105 H (70-99(Fasting)) mg/dl POC Glucose (70-99) mg/dl POC Glucose (other) (70-99) mg/dl Lactate (0.4-2.0) mmol/L Calcium 9.2 (8.6-10.3) mg/dl POC Ioniz Calcium Lucia (1.12-1.32) mmol/l Magnesium 2.0 (1.7-2.4) mg/dl Total Bilirubin 0.3 (0.2-1.0) mg/dl AST 15 (13-39) U/L ALT 11 (7-52) U/L Alkaline Phosphatase 105 H (34-104) U/L Troponin I High Sens 3.5 (0-14) pg/ml Total Protein 9.0 H (6.0-8.3) gm/dl Albumin 4.0 (3.4-5.0) gm/dl Globulin 5.0 H (2.5-4.0) gm/dl Albumin/Globulin Ratio 0.8 L (0.9-2) Lipase 11 (11-82) U/L Procalcitonin 0.18 (0-0.5) ng/ml HCG, Qual Negative (Negative) Urine Color Urine Appearance (Clear) Urine pH (4.5-7.5) Ur Specific [place] (1.000-1.030) Urine Protein (Negative) Urine Glucose (UA) (Negative) Urine Ketones (Negative) Urine Blood (Negative) Urine Nitrite (Negative) Urine Bilirubin (Negative) Urine Urobilinogen (Negative) Ur Leukocyte Esterase (Negative) Urine WBC (Auto) (0-5) /hpf Urine RBC (Auto) (0-4) /hpf U Hyaline Cast (Auto) (0-5) /lpf U Epithel Cells (Auto) (0-5) /lpf Urine Bacteria (Auto) (Negative) SARS-CoV-2, RNA, NAAT (NEGATIVE) Blood Type Antibody Screen 09/21/22 09/21/22 09/21/22 Range/Units 17:04 19:08 19:25 WBC (4.8-10.8) K/ul RBC (4.20-5.40) M/uL Hgb (12.0-16.0) g/dl POC Hgb 12.9 (12.0-16.0) g/dl Hct (37.0-47.0) % POC Hct 38 (37-47) % MCV (80.0-100.0) fL MCH (25.0-34.0) pg MCHC (32.0-36.0) g/dL RDW Std Deviation (36.4-46.3) fL RDW Coeff of Alexia (11.5-14.5) % Plt Count (130-400) K/uL MPV (9.4-12.4) fL Immature Gran % (Auto) % Neut % (Auto) % Lymph % (Auto) % Harrison % (Auto) % Eos % (Auto) % Baso % (Auto) % Neut # (Auto) (1.40-6.50) K/uL Lymph # (Auto) (1.2-3.4) K/uL Harrison # (Auto) (0.11-0.59) K/uL Eos # (Auto) (0-0.50) K/uL Baso # (Auto) (0-0.2) K/uL Immature Gran # (Auto) (0.01-0.20) K/uL PT (9.0-12.0) Seconds INR (0.9-1.1) APTT (21.0-31.0) Seconds PTT Ratio POC Sodium 138 (135-144) mmol/L Sodium (136-145) mmol/L POC Potassium 3.9 (3.3-5.0) mmol/L Potassium (3.5-5.1) mmol/L POC Chloride 99 L (101-112) mmol/L Chloride (98-107) mmol/L Carbon Dioxide (21-32) mmol/L POC Total CO2 26 (24-31) mmol/L Anion Gap (3-11) POC Anion Gap 18.0 (16-25) mmol/L POC BUN 23 H (7-18) mg/dl BUN (6-23) mg/dl Creatinine (0.6-1.2) mg/dl POC Creatinine 0.9 (0.6-1.3) mg/dl Est Cr Clr Drug Dosing ml/min Est GFR ( Amer) ml/min Est GFR (Non-Af Amer) ml/min BUN/Creatinine Ratio (10-20) Glucose (70-99(Fasting)) mg/dl POC Glucose (70-99) mg/dl POC Glucose (other) 110 H (70-99) mg/dl Lactate 1.8 (0.4-2.0) mmol/L Calcium (8.6-10.3) mg/dl POC Ioniz Calcium Lucia 1.13 (1.12-1.32) mmol/l Magnesium (1.7-2.4) mg/dl Total Bilirubin (0.2-1.0) mg/dl AST (13-39) U/L ALT (7-52) U/L Alkaline Phosphatase (34-104) U/L Troponin I High Sens (0-14) pg/ml Total Protein (6.0-8.3) gm/dl Albumin (3.4-5.0) gm/dl Globulin (2.5-4.0) gm/dl Albumin/Globulin Ratio (0.9-2) Lipase (11-82) U/L Procalcitonin (0-0.5) ng/ml HCG, Qual (Negative) Urine Color Urine Appearance (Clear) Urine pH (4.5-7.5) Ur Specific [place] (1.000-1.030) Urine Protein (Negative) Urine Glucose (UA) (Negative) Urine Ketones (Negative) Urine Blood (Negative) Urine Nitrite (Negative) Urine Bilirubin (Negative) Urine Urobilinogen (Negative) Ur Leukocyte Esterase (Negative) Urine WBC (Auto) (0-5) /hpf Urine RBC (Auto) (0-4) /hpf U Hyaline Cast (Auto) (0-5) /lpf U Epithel Cells (Auto) (0-5) /lpf Urine Bacteria (Auto) (Negative) SARS-CoV-2, RNA, NAAT NEGATIVE (NEGATIVE) Blood Type Antibody Screen Administered Medications Discontinued Medications Sodium Chloride (Nss 1000ml) 1,000 mls @ 999 mls/hr IV .[id number] ONE Stop: 09/21/22 17:40 Last Infusion: 09/21/22 18:25 Dose: 0 mls/hr Documented By: Admin: 09/21/22 16:57 Dose: 999 mls/hr Documented By: ALPA Ioversol (Optiray 320 500ml) 112 ml IV ONCE ONE Stop: 09/21/22 18:57 Last Admin: 09/21/22 18:57 Dose: 112 ml Documented By: TRENA Ondansetron HCl (Ondansetron Inj 2 Mg/Ml 2 Ml Vial) 4 mg IV NOW STA Stop: 09/21/22 16:41 Last Admin: 09/21/22 16:57 Dose: 4 mg Documented By: ALPA Imaging Data Radiologist's Impression: Head CT 09/21/22 16:28 CT angio neck with con, CT angio head w con, CT head/brain wo con CLINICAL HISTORY: neuro deficit, acute stroke suspected L leg weake TECHNIQUE: Contiguous axial CT images of the head were acquired from the base of the skull to the vertex without intravenous contrast administration. CT angiography of the head and neck was performed following intravenous administration of iodinated contrast. Coronal and sagittal MIPS were obtained from the axial data set and were submitted for review. Automated dose lowering techniques and/or adjustment according to patient size were utilized for this examination. All measurements were calculated based on NASCET criteria. CT DOSE: 1498.88 mGy.cm Comparison: Comparison is made to CTA head 04/19/2022 FINDINGS: CT head: Encephalomalacia in the right MCA territory is again seen with compensatory enlargement of the lateral ventricle. No hemorrhage is seen. Pulmonary trunk measures 34 mm in diameter. CTA Neck: A 3 vessel aortic arch is shown. There is no significant atherosclerotic plaque in the aortic arch or the origins of the innominate, left common carotid, and left subclavian arteries. The common carotid, external carotid, cervical segments of the internal carotid arteries, and the cervical segments of the vertebral arteries are patent without hemodynamically significant stenosis. The left vertebral artery is dominant. CTA Head: Again noted is occlusion of the right MCA. A small amount of collateral vasculature is noted. IMPRESSION: 1. 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 No intracranial hemorrhage is seen. 2. No occlusion, hemodynamically significant stenosis, or dissection in the major cervical arteries. Assessment of stenosis of the internal carotid arteries is based on NASCET criteria. ACT 112: Negative or not required by law. Electronically signed by: Hiro Santoyo M.D. 09/21/2022 7:25 PM Head CTA 09/21/22 16:28 CT angio neck with con, CT angio head w con, CT head/brain wo con CLINICAL HISTORY: neuro deficit, acute stroke suspected L leg weake TECHNIQUE: Contiguous axial CT images of the head were acquired from the base of the skull to the vertex without intravenous contrast administration. CT angiography of the head and neck was performed following intravenous administration of iodinated contrast. Coronal and sagittal MIPS were obtained from the axial data set and were submitted for review. Automated dose lowering techniques and/or adjustment according to patient size were utilized for this examination. All measurements were calculated based on NASCET criteria. CT DOSE: 1498.88 mGy.cm Comparison: Comparison is made to CTA head 04/19/2022 FINDINGS: CT head: Encephalomalacia in the right MCA territory is again seen with compensatory enlargement of the lateral ventricle. No hemorrhage is seen. Pulmonary trunk measures 34 mm in diameter. CTA Neck: A 3 vessel aortic arch is shown. There is no significant at herosclerotic plaque in the aortic arch or the origins of the innominate, left common carotid, and left subclavian arteries. The common carotid, external carotid, cervical segments of the internal carotid arteries, and the cervical segments of the vertebral arteries are patent without hemodynamically significant stenosis. The left vertebral artery is dominant. CTA Head: Again noted is occlusion of the right MCA. A small amount of collateral vasculature is noted. IMPRESSION: 1. 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 No intracranial hemorrhage is seen. 2. No occlusion, hemodynamically significant stenosis, or dissection in the major cervical arteries. Assessment of stenosis of the internal carotid arteries is based on NASCET criteria. ACT 112: Negative or not required by law. Electronically signed by: Hiro Santoyo M.D. 09/21/2022 7:25 PM Neck CTA 09/21/22 16:28 CT angio neck with con, CT angio head w con, CT head/brain wo con CLINICAL HISTORY: neuro deficit, acute stroke suspected L leg weake TECHNIQUE: Contiguous axial CT images of the head were acquired from the base of the skull to the vertex without intravenous contrast administration. CT angiography of the head and neck was performed following intravenous administration of iodinated contrast. Coronal and sagittal MIPS were obtained from the axial data set and were submitted for review. Automated dose lowering techniques and/or adjustment according to patient size were utilized for this examination. All measurements were calculated based on NASCET criteria. CT DOSE: 1498.88 mGy.cm Comparison: Comparison is made to CTA head 04/19/2022 FINDINGS: CT head: Encephalomalacia in the right MCA territory is again seen with compensatory enlargement of the lateral ventricle. No hemorrhage is seen. Pulmonary trunk measures 34 mm in diameter. CTA Neck: A 3 vessel aortic arch is shown. There is no significant atherosclerotic plaque in the aortic arch or the origins of the innominate, left common carotid, and left subclavian arteries. The common carotid, external carotid, cervical segments of the internal carotid arteries, and the cervical segments of the vertebral arteries are patent without hemodynamically significant stenosis. The left vertebral artery is dominant. CTA Head: Again noted is occlusion of the right MCA. A small amount of collateral vasculature is noted. IMPRESSION: 1. 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 No intracranial hemorrhage is seen. 2. No occlusion, hemodynamically significant stenosis, or dissection in the major cervical arteries. Assessment of stenosis of the internal carotid arteries is based on NASCET criteria. ACT 112: Negative or not required by law. Electronically signed by: Hiro Santoyo M.D. 09/21/2022 7:25 PM Chest X-Ray 09/21/22 16:41 XR chest 1V portable CLINICAL HISTORY: chest pain, recent valv replacement TECHNIQUE: Single frontal radiograph of the chest was obtained. Comparison: Comparison is made to CT abdomen pelvis 08/02/2021 FINDINGS: Median sternotomy wires are unchanged. Cardiomegaly is noted. Prominence and cephalization of the vasculature is seen. No evidence of pleural effusion or pneumothorax. IMPRESSION: Cardiomegaly and mild pulmonary edema. ACT 112: Negative or not required by law. Electronically signed by: Hiro Santoyo M.D. 09/21/2022 6:05 PM Discharge Plan Visit Data Chief Complaint: Stroke/CVA Symptoms Stated Complaint: UNABLE TO WALK, SLURRED SPEECH, LEFT VISION GONE ED Provider: Ge Zepeda Discharge Problem: Left-sided weakness, History of stroke, Nausea Patient Disposition: Being Evaluated by Hospitalist Forms Stand Alone Forms: [facility] Prescriptions Prescriptions: No Action acetaminophen [Tylenol Extra Strength] 500 mg tablet 500 mg PO QID PRN (Reason: Pain) Rx Instructions: [facility] 02/04 magnesium oxide 400 mg (241.3 mg magnesium) tablet 600 mg PO BID Qty: 270 3RF Rx Instructions: [facility] 02/04 albuterol sulfate 90 mcg/actuation aerosol powdr breath activated 1 inh inhalation QID PRN (Reason: shortness of breath or wheezing) Qty: 1 0RF furosemide 40 mg tablet 40 mg PO BID Qty: 60 2RF polyethylene glycol 3350 [Miralax] 17 gram/dose powder 17 g PO DAILY PRN (Reason: constipation) sennosides [Evac-U-Gen (sennosides)] 8.6 mg tablet 17.2 mg PO BID PRN (Reason: constipation) Rx Instructions: [facility] 8/15 melatonin 5 mg tablet 10 mg PO HS Qty: 1 0RF nicotine [Nicoderm CQ] 21 mg/24 hr patch 24 hour 1 patch transdermal Q24H 42 Days Qty: 45 0RF Rx Instructions: has not started yet metoprolol tartrate 50 mg tablet 25 mg PO BID Qty: 30 2RF sertraline 100 mg tablet 200 mg PO DAILY 90 Days Qty: 180 3RF Rx Instructions: [facility] 8/15 apixaban 2.5 mg tablet 2.5 mg PO BID Qty: 60 1RF gabapentin 600 mg tablet 600 mg PO TID Qty: 90 5RF clonazepam 0.5 mg tablet 0.5 mg PO PM Qty: 30 0RF pantoprazole 40 mg tablet,delayed release (DR/EC) 40 mg PO DAILY Qty: 90 2RF potassium chloride 20 mEq tablet extended release 20 meq PO BID Qty: 60 3RF trazodone 50 mg tablet 50 mg PO HS Qty: 30 5RF (DME) Wheelchair (Manual) Device See Rx Instructions .Route Qty: 1 0RF Rx Instructions: As [id number] Z86.73 (DME) Hospital Bed Mis See Rx Instructions .Route Qty: 1 0RF Rx Instructions: As directed G81.9, I63.411 (DME) Manual Wheelchair Device See Rx Instructions .Route Qty: 1 0RF Rx Instructions: alycia drive WC please G81.9 baclofen 5 mg tablet 5 mg PO TID Qty: 90 2RF epinephrine 0.3 mg/0.3 mL auto-injector 0.3 ml IM ONCE PRN (Reason: Allergic Reaction) aripiprazole 15 mg tablet 15 mg PO DAILY methadone 10 mg/mL concentrate 83 mg PO QAM Rx Instructions: BEING MANAGED BY [facility] [place] Referrals Referrals: Stacey Arce MD [Primary Care Provider] -
[2022-09-21 17:16] LABS: iSTAT Creatinine 0.9 mg/dl (0.6-1.3); iSTAT Hemoglobin 12.9 g/dl (12.0-16.0); iSTAT Ionized Calcium 1.13 mmol/l (1.12-1.32); iSTAT Potassium 3.9 mmol/L (3.3-5.0)
[2022-09-21 17:41] LABS: Basophils # (auto) 0.02 K/uL (0-0.2); Basophils % (auto) 0.2 %; Eosinophils # (auto) 0.26 K/uL (0-0.50); Eosinophils % (auto) 3.2 %; Hematocrit (blood only) 35.6 % (37.0-47.0); Hemoglobin 10.7 g/dl (12.0-16.0); Immature Granulocytes # (auto) 0.02 K/uL (0.01-0.20); Immature Granulocytes % (auto) 0.2 %; Lymphocytes % (auto) 25.6 %; Mean Corpuscular Hemoglobin 21.9 pg (25.0-34.0); Mean Corpuscular Hgb Conc 30.1 g/dL (32.0-36.0); Mean Corpuscular Volume 72.8 fL (80.0-100.0); Mean Platelet Volume 8.8 fL (9.4-12.4); Monocytes # (auto) 0.41 K/uL (0.11-0.59); Neutrophils # (auto) 5.39 K/uL (1.40-6.50); Neutrophils % (auto) 65.8 %; Platelet Count 511 K/uL (130-400); RDW Coefficient of Variation 15.4 % (11.5-14.5); RDW Standard Deviation 39.8 fL (36.4-46.3); Red Blood Count 4.89 M/uL (4.20-5.40)
[2022-09-21 17:57] LABS: Albumin Globulin Ratio 0.8 (0.9-2); BUN Creatinine Ratio 25.6 (10-20); Bilirubin,Total 0.3 mg/dl (0.2-1.0); Calcium 9.2 mg/dl (8.6-10.3); Est GFR (African American) 95.3 ml/min; Est GFR (Non-African American) 82.3 ml/min; Potassium 3.8 mmol/L (3.5-5.1); Pregnancy Test, Serum Negative (Negative)
[2022-09-21 18:04] LABS: Troponin I High Sensitivity 3.5 pg/ml (0-14)
--- NOTE | 2022-09-21 18:06 | XRay Report ---
XR chest 1V portable CLINICAL HISTORY: chest pain, recent valv replacement TECHNIQUE: Single frontal radiograph of the chest was obtained. Comparison: Comparison is made to CT abdomen pelvis 08/02/2021 FINDINGS: Median sternotomy wires are unchanged. Cardiomegaly is noted. Prominence and cephalization of the vas culature is seen. No evidence of pleural effusion or pneumothorax. IMPRESSION: Cardiomegaly and mild pulmonary edema. ACT 112: Negative or not required by law. Electronically signed by: Hiro Santoyo M.D. 09/21/2022 6:05 PM
[2022-09-21 18:07] LABS: Partial Thromboplastin Time 28.5 Seconds (21.0-31.0); Prothrombin Time 10.6 Seconds (9.0-12.0)
[2022-09-21 18:16] LABS: Appearance Urine Turbid (Clear); Bacteria Urine Automated Negative (Negative); Bilirubin Urine Negative (Negative); Blood Urine Negative (Negative); Cast Urine Automated 0 /lpf (0-5); Color Urine Yellow; Epithelial Cell Urine Auto >30 /lpf (0-5); Glucose Urine UA Negative (Negative); Ketones Urine Negative (Negative); Leukocyte Esterase Urine Negative (Negative); Nitrite Urine Negative (Negative); Protein Urine Negative (Negative); RBC Urine Automated 0-4 /hpf (0-4); Specific Gravity Urine 1.028 (1.000-1.030); Urobilinogen Urine Negative (Negative); pH Urine 7.5 (4.5-7.5)
[2022-09-21] MEDS ORDERED: OPTIRAY 320 500ml IV ONE (18:56)
--- NOTE | 2022-09-21 19:27 | CT Scan Report ---
CT angio neck with con, CT angio head w con, CT head/brain wo con CLINICAL HISTORY: neuro deficit, acute stroke suspected L leg weake TECHNIQUE: Contiguous axial CT images of the head were acquired from the base of the skull to the sanjiv sterling without intravenous contrast administration. CT angiography of the head and neck was performed f ollowing intravenous administration of iodinated contrast. Coronal and sagittal MIPS were obtained fr om the axial data set and were submitted for review. Automated dose lowering techniques and/or adjus tment according to patient size were utilized for this examination. All measurements were calculated based on NASCET criteria. CT DOSE: 1498.88 mGy.cm Comparison: Comparison is made to CTA head 04/19/2022 FINDINGS: CT head: Encephalomalacia in the right MCA territory is again seen with compensatory enlargement of t he lateral ventricle. No hemorrhage is seen. Pulmonary trunk measures 34 mm in diameter. CTA Neck: A 3 vessel aortic arch is shown. There is no significant atherosclerotic plaque in the aor tic arch or the origins of the innominate, left common carotid, and left subclavian arteries. The co mmon carotid, external carotid, cervical segments of the internal carotid arteries, and the cervical segments of the vertebral arteries are patent without hemodynamically significant stenosis. The left vertebral artery is dominant. CTA Head: Again noted is occlusion of the right MCA. A small amount of collateral vasculature is note d. IMPRESSION: 1. 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 No intracranial hemorrhage is seen. 2. No occlusion, hemodynamically significant stenosis, or dissection in the major cervical arteries. Assessment of stenosis of the internal carotid arteries is based on NASCET criteria. ACT 112: Negative or not required by law. Electronically signed by: Hiro Santoyo M.D. 09/21/2022 7:25 PM
--- NOTE | 2022-09-21 21:14 | History & Physical Report ---
Date of Service September 21, 2022 Assessment & Plan (1) Chronic right arterial ischemic stroke, MCA (middle cerebral artery): (2) Left-sided weakness: (3) H/O mitral valve replacement: (4) Bipolar disorder: (5) Drug abuse in remission: (6) Homonymous hemianopsia due to recent cerebrovascular accident: (7) Anxiety: (8) Anemia: Plan Chronic left hemiplegia/chronic right MCA embolic CVA- Patient is experiencing gradual worsening of left-sided weakness affecting her ability to ambulate CT head, CTA head neck did not show any acute findings Consult PT/OT, for consideration of rehab inpatient versus outpatient Continue all of her present medications On apixaban for DVT prophylaxis Hypertension- Continue furosemide, metoprolol tartrate and potassium chloride Bipolar disorder- Continue aripiprazole, clonazepam, gabapentin, melatonin, trazodone and sertraline GERD/constipation- Continue pantoprazole, Senokot and MiraLAX Tobacco abuse disorder- Continue NicoDerm History of Present Illness Chief Complaint: The patient was reportedly brought to the emergency department due to concerns regarding some worsening of chronic left leg weakness from previous stroke, since around 9:00 the previous evening. Primary Care Provider: Stacey Arce MD The patient is a 37-year-old female with a past medical history including mitral valve replacement, bipolar disorder, drug abuse in remission, left spastic hemiparesis, homonymous hemianopsia due to CVA, dysphagia, decubitus skin ulcer, history of CVA, anemia, anxiety and morbid obesity. The patient was brought into the emergency department due to concerns regarding more difficulty with ambulation and functioning in general due to some mild worsening of left sided w eakness. However, upon my questioning, patient reports that there has not been and acute change that she can tell, but there has been some gradual weakening, and she has been trying to get PT and OT scheduled for the outpatient setting Allergies Allergy/AdvReac Type Severity Reaction Status Date / Time atorvastatin AdvReac Muscle Pain Verified 09/21/22 18:21 Home Medications Medication Instructions Recorded Confirmed Type acetaminophen 500 mg tablet 500 mg PO QID PRN Pain 02/05/22 09/21/22 History (Tylenol Extra Strength) Wheelchair (Manual) #1 ea 03/25/22 09/21/22 Rx magnesium oxide 400 mg (241.3 mg 600 mg PO BID #270 tabs 03/27/22 09/21/22 Rx magnesium) tablet Hospital Bed Homecare (Hospital #1 ea 04/18/22 09/21/22 Rx Bed) Wheelchair (Manual) (Manual #1 ea 04/18/22 09/21/22 Rx Wheelchair) baclofen 5 mg tablet 5 mg PO TID #90 tabs 08/07/22 09/21/22 Rx albuterol sulfate 90 mcg/actuation 1 inh inhalation QID PRN shortness 08/09/22 09/21/22 Rx breath activated powder inhaler of breath or wheezing #1 ea furosemide 40 mg tablet 40 mg PO BID #60 tabs 08/09/22 09/21/22 Rx melatonin 5 mg tablet 10 mg PO HS sleep #1 tab 08/09/22 09/21/22 Rx nicotine 21 mg/24 hr daily 1 patch transdermal Q24H 6 weeks 08/09/22 09/21/22 Rx transdermal patch (Nicoderm CQ) #45 ea polyethylene glycol 3350 17 17 g PO DAILY PRN constipation 08/09/22 09/21/22 History gram/dose oral powder (Miralax) sennosides 8.6 mg tablet 17.2 mg PO BID PRN constipation 08/09/22 09/21/22 History (Evac-U-Gen (sennosides)) metoprolol tartrate 50 mg tablet 25 mg PO BID #30 tabs 08/28/22 09/21/22 Rx sertraline 100 mg tablet 200 mg PO DAILY 90 days #180 tabs 08/28/22 09/21/22 Rx clonazepam 0.5 mg tablet 0.5 mg PO PM #30 tabs 09/04/22 09/21/22 Rx gabapentin 600 mg tablet 600 mg PO TID #90 tabs 09/04/22 09/21/22 Rx pantoprazole 40 mg tablet,delayed 40 mg PO DAILY #90 tabs 09/04/22 09/21/22 Rx release potassium chloride 20 mEq 20 meq PO BID #60 tabs 09/04/22 09/21/22 Rx tablet,extended release trazodone 50 mg tablet 50 mg PO HS #30 tabs 09/04/22 09/21/22 Rx apixaban 2.5 mg tablet 2.5 mg PO BID #60 tabs 09/05/22 09/21/22 Rx aripiprazole 15 mg tablet 15 mg PO DAILY 09/21/22 09/21/22 History epinephrine 0.3 mg/0.3 mL 0.3 ml IM ONCE PRN Allergic 09/21/22 09/21/22 History injection, auto-injector Reaction methadone 10 mg/mL oral concentrate 83 mg PO QAM 09/21/22 09/21/22 History Past Med/Surg History Medical History (Updated 09/21/22 @ 22:07 by Yadiel Romeo MD) Anemia Anxiety Bipolar disorder Chronic right arterial ischemic stroke, MCA (middle cerebral artery) Drug abuse and dependence Endocarditis History of embolic stroke Rt MCA PCOS (polycystic ovarian syndrome) Surgical History (Updated 08/07/22 @ 13:12 by Stacey Arce MD) H/O mitral valve replacement History of section History of open heart surgery History of repair of ACL History of tubal ligation Family History Grandmother (Paternal) Breast cancer Grandfather (Maternal) Myocardial infarction Graves disease Grandfather (Paternal) Myocardial infarction Denies family history of Colon cancer Ovarian cancer Prostate cancer Social History (Updated 08/07/22 @ 12:07 by ROD Diaz) Smoking Status: Never smoker Tobacco Type: Cigarettes packs per day: 1; Second Hand Exposure: No; Hx Alcohol Use: No Hx Substance Use: No Preferred Language: Slovak Communication Ability: Effective Visual Impairment: No Limitations Hearing Ability: Normal Airplane First Officer Required: No Beliefs That Will Affect Care: None marital status: Single Current Living Situation: Family Current Living Situation Comment: boyfriend and her 3 daughters 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 Feels Safe at Home: Yes Childhood Exposure to Second-Hand Smoke: No Diet Comment: regular Dental Care, Regularly: No Physical Activity Frequency: Does not Exercise Seatbelt Use: sometimes Sunscreen Use: No Assistive Devices: Cane, Denture - Upper, Glasses, Walker and Wheelchair Review of Systems Review of Systems: The patient denies chest pain, palpitations, shortness of breath, dyspnea on exertion, cough, lower extremity swelling, sore throat, fevers, chills, sweats, weight change, fatigue, nausea, vomiting, diarrhea , constipation, abdominal pain, pelvic pain, blood in urine or stool, dysuria, urinary frequency or urgency, lightheadedness, dizziness, headache, memory loss, loss of consciousness, rash, abnormal bruising or bleeding, focal or generalized weakness, numbness or tingling in right arm or leg, generalized arthralgias or myalgias, back or neck pain, or night sweats. The review of systems is otherwise negative other than for that already noted above, and at least 10 systems have been reviewed. Physical Exam Physical Exam: The patient is awake, alert and oriented 3, well developed and well nourished, normocephalic and atraumatic, lying in bed and in no acute distress. HEENT--PERRL, EOMI, mucous membranes and oropharynx dry. Neck--supple. No JVD. No bruits. Thyroid normal, trachea midline, no adenopathy. Heart--normal S1 and S2. No murmurs, rubs or gallops. Lungs--clear bilaterally, no respiratory distress, no accessory muscle use. Abdomen--normal bowel sounds and soft. Nontender. Nondistended, no hernias or masses, no organomegaly. Extremities--left paraplegia, with decreased muscle tone in the left Dermatologic--normal skin turgor, normal color, no abnormal lymph nodes, no rash. Neurologic--cranial nerves II through XII grossly intact. Left paraplegia Rheumatologic--left paraplegia Psychiatric--flat affect. Results & Data Results & Data Vital Signs (Past 12 Hours) Vital Signs Temp Pulse Pulse Resp BP BP Pulse Ox 09/21/22 17:57 36.9 C 81 19 95/53 L 95 09/21/22 17:50 83 18 95/53 L 94 09/21/22 17:08 85 09/21/22 16:18 36.8 C 87 18 115/59 L 95 O2 Del Method O2 Flow Rate 09/21/22 17:57 Room Air 09/21/22 17:50 Nasal Cannula 2 09/21/22 17:08 09/21/22 16:18 Room Air Laboratory Results Laboratory Results WBC 8.20 K/ul (4.8-10.8) 09/21/22 17:02 RBC 4.89 M/uL (4.20-5.40) 09/21/22 17:02 Hgb 10.7 g/dl (12.0-16.0) L 09/21/22 17:02 POC Hgb 12.9 g/dl (12.0-16.0) 09/21/22 17:04 Hct 35.6 % (37.0-47.0) L 09/21/22 17:02 POC Hct 38 % (37-47) 09/21/22 17:04 MCV 72.8 fL (80.0-100.0) L 09/21/22 17:02 MCH 21.9 pg (25.0-34.0) L 09/21/22 17:02 MCHC 30.1 g/dL (32.0-36.0) L 09/21/22 17:02 RDW Std Deviation 39.8 fL (36.4-46.3) 09/21/22 17:02 RDW Coeff of Alexia 15.4 % (11.5-14.5) H 09/21/22 17:02 Plt Count 511 K/uL (130-400) H 09/21/22 17:02 MPV 8.8 fL (9.4-12.4) L 09/21/22 17:02 Immature Gran % (Auto) 0.2 % 09/21/22 17:02 Neut % (Auto) 65.8 % 09/21/22 17:02 Lymph % (Auto) 25.6 % 09/21/22 17:02 Boyle % (Auto) 5.0 % 09/21/22 17:02 Eos % (Auto) 3.2 % 09/21/22 17:02 Baso % (Auto) 0.2 % 09/21/22 17:02 Neut # (Auto) 5.39 K/uL (1.40-6.50) 09/21/22 17:02 Lymph # (Auto) 2.10 K/uL (1.2-3.4) 09/21/22 17:02 Boyle # (Auto) 0.41 K/uL (0.11-0.59) 09/21/22 17:02 Eos # (Auto) 0.26 K/uL (0-0.50) 09/21/22 17:02 Baso # (Auto) 0.02 K/uL (0-0.2) 09/21/22 17:02 Immature Gran # (Auto) 0.02 K/uL (0.01-0.20) 09/21/22 17:02 PT 10.6 Seconds (9.0-12.0) 09/21/22 17:02 INR 1.0 (0.9-1.1) 09/21/22 17:02 APTT 28.5 Seconds (21.0-31.0) 09/21/22 17:02 PTT Ratio 1.0 09/21/22 17:02 POC Sodium 138 mmol/L (135-144) 09/21/22 17:04 Sodium 135 mmol/L (136-145) L 09/21/22 17:02 POC Potassium 3.9 mmol/L (3.3-5.0) 09/21/22 17:04 Potassium 3.8 mmol/L (3.5-5.1) 09/21/22 17:02 POC Chloride 99 mmol/L (101-112) L 09/21/22 17:04 Chloride 100 mmol/L (98-107) 09/21/22 17:02 Carbon Dioxide 28 mmol/L (21-32) 09/21/22 17:02 POC Total CO2 26 mmol/L (24-31) 09/21/22 17:04 Anion Gap 7 (3-11) 09/21/22 17:02 POC Anion Gap 18.0 mmol/L (16-25) 09/21/22 17:04 POC BUN 23 mg/dl (7-18) H 09/21/22 17:04 BUN 23 mg/dl (6-23) 09/21/22 17:02 Creatinine 0.90 mg/dl (0.6-1.2) 09/21/22 17:02 POC Creatinine 0.9 mg/dl (0.6-1.3) 09/21/22 17:04 Est Cr Clr Drug Dosing 122.0 ml/min 09/21/22 17:02 Est GFR ( Amer) 95.3 ml/min 09/21/22 17:02 Est GFR (Non-Af Amer) 82.3 ml/min 09/21/22 17:02 BUN/Creatinine Ratio 25.6 (10-20) H 09/21/22 17:02 Glucose 105 mg/dl (70-99(Fasting)) H 09/21/22 17:02 POC Glucose 130 mg/dl (70-99) H 09/21/22 16:32 POC Glucose (other) 110 mg/dl (70-99) H 09/21/22 17:04 Lactate 1.8 mmol/L (0.4-2.0) 09/21/22 19:08 Calcium 9.2 mg/dl (8.6-10.3) 09/21/22 17:02 POC Ioniz Calcium Lucia 1.13 mmol/l (1.12-1.32) 09/21/22 17:04 Magnesium 2.0 mg/dl (1.7-2.4) 09/21/22 17:02 Total Bilirubin 0.3 mg/dl (0.2-1.0) 09/21/22 17:02 AST 15 U/L (13-39) 09/21/22 17:02 ALT 11 U/L (7-52) 09/21/22 17:02 Alkaline Phosphatase 105 U/L (34-104) H 09/21/22 17:02 Troponin I High Sens 3.5 pg/ml (0-14) 09/21/22 17:02 Total Protein 9.0 gm/dl (6.0-8.3) H 09/21/22 17:02 Albumin 4.0 gm/dl (3.4-5.0) 09/21/22 17:02 Globulin 5.0 gm/dl (2.5-4.0) H 09/21/22 17:02 Albumin/Globulin Ratio 0.8 (0.9-2) L 09/21/22 17:02 Lipase 11 U/L (11-82) 09/21/22 17:02 Procalcitonin 0.18 ng/ml (0-0.5) 09/21/22 17:02 HCG, Qual Negative (Negative) 09/21/22 17:02 Urine Color Yellow 09/21/22 17:00 Urine Appearance Turbid (Clear) A 09/21/22 17:00 Urine pH 7.5 (4.5-7.5) 09/21/22 17:00 Ur Specific Humphrey 1.028 (1.000-1.030) 09/21/22 17:00 Urine Protein Negative (Negative) 09/21/22 17:00 Urine Glucose (UA) Negative (Negative) 09/21/22 17:00 Urine Ketones Negative (Negative) 09/21/22 17:00 Urine Blood Negative (Negative) 09/21/22 17:00 Urine Nitrite Negative (Negative) 09/21/22 17:00 Urine Bilirubin Negative (Negative) 09/21/22 17:00 Urine Urobilinogen Negative (Negative) 09/21/22 17:00 Ur Leukocyte Esterase Negative (Negative) 09/21/22 17:00 Urine WBC (Auto) 1-5 /hpf (0-5) 09/21/22 17:00 Urine RBC (Auto) 0-4 /hpf (0-4) 09/21/22 17:00 U Hyaline Cast (Auto) 0 /lpf (0-5) 09/21/22 17:00 U Epithel Cells (Auto) >30 /lpf (0-5) H 09/21/22 17:00 Urine Bacteria (Auto) Negative (Negative) 09/21/22 17:00 SARS-CoV-2, RNA, NAAT NEGATIVE (NEGATIVE) 09/21/22 19:25 Blood Type A Positive 09/21/22 17:02 Antibody Screen NEGATIVE 09/21/22 17:[address] 09/21/22 16:28 CT angio neck with con, CT angio head w con, CT head/brain wo con CLINICAL HISTORY: neuro deficit, acute stroke suspected L leg weake TECHNIQUE: Contiguous axial CT images of the head were acquired from the base of the skull to the vertex without intravenous contrast administration. CT angiography of the head and neck was performed following intravenous administration of iodinated contrast. Coronal and sagittal MIPS were obtained from the axial data set and were submitted for review. Automated dose lowering techniques and/or adjustment according to patient size were utilized for this examination. All measurements were calculated based on NASCET criteria. CT DOSE: 1498.88 mGy.cm Comparison: Comparison is made to CTA head 04/19/2022 FINDINGS: CT head: Encephalomalacia in the right MCA territory is again seen with compensatory enlargement of the lateral ventricle. No hemorrhage is seen. Pulmonary trunk measures 34 mm in diameter. CTA Neck: A 3 vessel aortic arch is shown. There is no significant atherosclerotic plaque in the aortic arch or the origins of the innominate, left common carotid, and left subclavian arteries. The common carotid, external carotid, cervical segments of the internal carotid arteries, and the cervical segments of the vertebral arteries are patent without hemodynamically significant stenosis. The left vertebral artery is dominant. CTA Head: Again noted is occlusion of the right MCA. A small amount of collateral vasculature is noted. IMPRESSION: 1. 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 No intracranial hemorrhage is seen. 2. No occlusion, hemodynamically significant stenosis, or dissection in the major cervical arteries. Assessment of stenosis of the internal carotid arteries is based on NASCET criteria. ACT 112: Negative or not required by law. Electronically signed by: Hiro Santoyo M.D. 09/21/2022 7:25 PM Head CTA 09/21/22 16:28 CT angio neck with con, CT angio head w con, CT head/brain wo con CLINICAL HISTORY: neuro deficit, acute stroke suspected L leg weake TECHNIQUE: Contiguous axial CT images of the head were acquired from the base of the skull to the vertex without intravenous contrast administration. CT angiography of the head and neck was performed following intravenous administration of iodinated contrast. Coronal and sagittal MIPS were obtained from the axial data set and were submitted for review. Automated dose lowering techniques and/or adjustment according to patient size were utilized for this examination. All measurements were calculated based on NASCET criteria. CT DOSE: 1498.88 mGy.cm Comparison: Comparison is made to CTA head 04/19/2022 FINDINGS: CT head: Encephalomalacia in the right MCA territory is again seen with compensatory enlargement of the lateral ventricle. No hemorrhage is seen. Pulmonary trunk measures 34 mm in diameter. CTA Neck: A 3 vessel aortic arch is shown. There is no significant atherosclerotic plaque in the aortic arch or the origins of the innominate, left common carotid, and left subclavian arteries. The common carotid, external carotid, cervical segments of the internal carotid arteries, and the cervical segments of the vertebral arteries are patent without hemodynamically significant stenosis. The left vertebral artery is dominant. CTA Head: Again noted is occlusion of the right MCA. A small amount of collateral vasculature is noted. IMPRESSION: 1. 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 No intracranial hemorrhage is seen. 2. No occlusion, hemodynamically significant stenosis, or dissection in the major cervical arteries. Assessment of stenosis of the internal carotid arteries is based on NASCET criteria. ACT 112: Negative or not required by law. Electronically signed by: Hiro Santoyo M.D. 09/21/2022 7:25 PM Neck CTA 09/21/22 16:28 CT angio neck with con, CT angio head w con, CT head/brain wo con CLINICAL HISTORY: neuro deficit, acute stroke suspected L leg weake TECHNIQUE: Contiguous axial CT images of the head were acquired from the base of the skull to the vertex without intravenous contrast administration. CT angiography of the head and neck was performed following intravenous administration of iodinated contrast. Coronal and sagittal MIPS were obtained from the axial data set and were submitted for review. Automated dose lowering techniques and/or adjustment according to patient size were utilized for this examination. All measurements were calculated based on NASCET criteria. CT DOSE: 1498.88 mGy.cm Comparison: Comparison is made to CTA head 04/19/2022 FINDINGS: CT head: Encephalomalacia in the right MCA territory is again seen with compensatory enlargement of the lateral ventricle. No hemorrhage is seen. Pulmonary trunk measures 34 mm in diameter. CTA Neck: A 3 vessel aortic arch is shown. There is no significant atherosclerotic plaque in the aortic arch or the origins of the innominate, left common carotid, and left subclavian arteries. The common carotid, external carotid, cervical segments of the internal carotid arteries, and the cervical segments of the vertebral arteries are patent without hemodynamically significant stenosis. The left vertebral artery is dominant. CTA Head: Again noted is occlusion of the right MCA. A small amount of collateral vasculature is noted. IMPRESSION: 1. 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 No intracranial hemorrhage is seen. 2. No occlusion, hemodynamically significant stenosis, or dissection in the major cervical arteries. Assessment of stenosis of the internal carotid arteries is based on NASCET criteria. ACT 112: Negative or not required by law. Electronically signed by: Hiro Santoyo M.D. 09/21/2022 7:25 PM Chest X-Ray 09/21/22 16:41 XR chest 1V portable CLINICAL HISTORY: chest pain, recent valv replacement TECHNIQUE: Single frontal radiograph of the chest was obtained. Comparison: Comparison is made to CT abdomen pelvis 08/02/2021 FINDINGS: Median sternotomy wires are unchanged. Cardiomegaly is noted. Prominence and cephalization of the vasculature is seen. No evidence of pleural effusion or pneumothorax. IMPRESSION: Cardiomegaly and mild pulmonary edema. ACT 112: Negative or not required by law. Electronically signed by: Hiro Santoyo M.D. 09/21/2022 6:05 PM Code Status & VTE Plan Code Status Full code VTE Prophylaxis Plan VTE Prophylaxis will be ordered: Yes PG Care Time/CCT Total # of Minutes Spent Total Time Spent with Patient: Total time spent is greater than 50% in coordination of care (as documented) at patient's floor/unit and/or counseling patient: Coding Level of Care Code 18479 INT INP/OBS CARE 3/75MIN Diagnoses Chronic right arterial ischemic stroke, MCA (middle cerebral artery) I69.30 Left-sided weakness R53.1 H/O mitral valve replacement Z95.2 Bipolar disorder F31.9 Drug abuse in remission F19.11 Homonymous hemianopsia due to recent cerebrovascular accident I69.398; H53.469 Anxiety F41.9 Anemia D64.9
[2022-09-21] MEDS ORDERED: SENNA 8.6 MG TAB PO PRN (22:59)
[2022-09-21] MEDS ORDERED: ONDANSETRON INJ 2 MG/ML 2 ML VIAL IV PRN (22:59)
[2022-09-21] MEDS ORDERED: traZODone HCL 50 MG TAB PO SCH (22:59)
[2022-09-21] MEDS ORDERED: clonazePAM 0.5 MG TAB PO SCH (22:59)
[2022-09-21] MEDS ORDERED: NON-FORMULARY MEDICATION (Melatonin 5 mg tablet) PO SCH (22:59)
[2022-09-21] MEDS ORDERED: FUROSEMIDE 40 MG TAB PO SCH (22:59)
[2022-09-21] MEDS ORDERED: POLYETHYLENE (MIRALAX) 17 GM PACK PO PRN (22:59)
[2022-09-21] MEDS: MAGNESIUM OXIDE 400 MG TAB PO SCH (23:15)
[2022-09-21] MEDS: METOPROLOL TARTRATE 25 MG TAB PO SCH (23:16)
[2022-09-21] MEDS: POTASSIUM CHLORIDE CRTAB 20 MEQ TABCR PO SCH (23:16)
[2022-09-21] MEDS ORDERED: ALBUTEROL HFA 8 GM INHALER INH PRN (23:30)
[2022-09-22] MEDS: BACLOFEN 10 MG TAB PO SCH ×4 (00:04→21:11)
[2022-09-22] MEDS: APIXABAN 2.5 MG TAB PO SCH ×3 (00:05→21:10)
[2022-09-22] MEDS: GABAPENTIN 600 MG TAB PO SCH ×3 (00:05→13:49)
[2022-09-22] MEDS: ARIPiprazole 15 MG TAB PO SCH (08:31)
[2022-09-22] MEDS: SERTRALINE HCL 100 MG TABLET PO SCH (08:32)
[2022-09-22] MEDS: NICOTINE 21 MG/24 HR TDSY TD SCH (08:32)
[2022-09-22] MEDS: POTASSIUM CHLORIDE CRTAB 20 MEQ TABCR PO SCH ×2 (08:33→21:15)
[2022-09-22] MEDS: PANTOprazole 40 MG TAB PO SCH (08:33)
[2022-09-22] MEDS: METOPROLOL TARTRATE 25 MG TAB PO SCH ×2 (08:33→21:14)
[2022-09-22] MEDS: MAGNESIUM OXIDE 400 MG TAB PO SCH ×2 (08:33→22:34)
[2022-09-22] MEDS: PATIENT'S OWN CONTROLLED MED 3 PO SCH (08:35)
--- NOTE | 2022-09-22 08:36 | Electrocardiogram Report ---
Test Reason : Blood Pressure : / mmHG Vent. Rate : 088 BPM Atrial Rate : 088 BPM P-R Int : 144 ms QRS Dur : 090 ms QT Int : 328 ms P-R-T Axes : 046 031 079 degrees QTc Int : 396 ms Normal sinus rhythm Left atrial enlargement Diffuse Minor Nonspecific T wave abnormality Abnormal ECG When compared with ECG of 19-APR-2022 01:28, Nonspecific T wave abnormality now evident in Anterolateral leads QT has shortened Confirmed by Shankar Johnson ([id number]) on 09/22/2022 8:35:48 AM Referred By: REFERRED SELF Confirmed By:Shankar Johnson
[2022-09-22] MEDS: ACETAMINOPHEN 500 MG TAB PO PRN ×2 (08:43→13:50)
--- NOTE | 2022-09-22 09:37 | Hospitalist Progress Note ---
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 eval for metabolic causes at this time urine cultures pending CT head, CTA head neck did not show any acute findings Consult PT/OT, for consideration of rehab inpatient versus outpatient Continue all of her present medications On apixaban for DVT prophylaxis and post valve replacement (2) H/O mitral valve replacement: Plan: chronic stable 07/23/22 33 mm medronic epic, discharged on asa apixiban, amiodarone metoprolol lasix chronic HFpEF, from (3) Bipolar disorder: Plan: chrnoic stable on clonazepam, sertraline and trazasone (4) Drug abuse in remission: Plan: remains on methadone (5) Homonymous hemianopsia due to recent cerebrovascular accident: (6) Anemia: Admission and Anticipated Discharge Date Admission Date: September 21, 2022 Subjective Patient is awake and conversant. She states that she is in her normal state. She does have left-sided weakness and is very sleepy during my exam closing her eyes and resting her eyes during speaking and occasionally tilting her head to the right. No focal distress. Spoke with the patient's mother says that prehospital she is at increasing difficulty with ambulation where normally she is able to assist quite a bit even to the point where she can climb stairs. The patient also has been with increased urination at home Physical Exam Physical Exam: Patient is awake alert falls asleep easily does know where she is she is oriented to person place and time Card exam is regular with a systolic murmur she is a healing sternotomy scar in her mid chest Lungs are clear with diminished at the bases Left hemiplegia is present but this is chronic Results & Data Results & Data Vital Signs (Past 12 Hours) Vital Signs Temp Pulse Pulse Pulse Resp BP Pulse Ox 09/22/22 07:41 80 09/22/22 06:03 75 09/22/22 02:54 98.1 F 83 16 117/75 93 09/21/22 23:17 09/21/22 23:17 83 09/21/22 23:17 98.1 F 86 16 126/72 95 09/21/22 22:17 O2 Del Method O2 Flow Rate 09/22/22 07:41 09/22/22 06:03 09/22/22 02:54 Nasal Cannula 2 09/21/22 23:17 Nasal Cannula 2 09/21/22 23:17 09/21/22 23:17 Nasal Cannula 2 09/21/22 22:17 Room Air PG Care Time/CCT Total # of Minutes Spent Total Time Spent with Patient: Total time spent is greater than 50% in coordination of care (as documented) at patient's floor/unit and/or counseling patient: Coding Level of Care Code 45840 SUB INP/OBS CARE 3/50MIN Diagnoses Chronic right arterial ischemic stroke, MCA (middle cerebral artery) I69.30 H/O mitral valve replacement Z95.2 Bipolar disorder F31.9 Drug abuse in remission F19.11 Homonymous hemianopsia due to recent cerebrovascular accident I69.398; H53.469 Anemia D64.9
[2022-09-22] MEDS: METHADONE ORAL SOLN 2 MG/ML PO SCH (11:07)
[2022-09-22] MEDS: FUROSEMIDE 40 MG TAB PO SCH ×2 (11:41→17:30)
[2022-09-22] MEDS ORDERED: FUROSEMIDE 40 MG/4 ML VIAL IV ONE (16:28)
[2022-09-22] MEDS ORDERED: LORazepam 0.5 MG TAB PO STA (18:35)
--- NOTE | 2022-09-22 20:10 | Magnetic Resonance Report ---
MR brain wo con CLINICAL HISTORY: leg weakness previous stroke TECHNIQUE: Multiplanar and multisequence MR images of the brain were obtained without intravenous con trast. Comparison: Comparison is made to MRI brain 04/18/2022 FINDINGS: No abnormal restricted diffusion is identified. Foci of T2 and FLAIR hyperintensity are noted in the paraventricular areas consistent with chronic small vessel ischemic disease. Right MCA territory ence phalomalacia is seen. Ex vacuo ventriculomegaly and sulcal enlargement is noted compatible with diffu se encephalomalacia. No mass is seen. There is no mass effect or midline shift. There is no evidence of acute intraparenchymal hemorrhage. No extra axial fluid collections are seen. The corpus callosum, pituitary gland, and cerebellar tonsils appear grossly unremarkable. Flow voids of the major intracranial arterial vessels are identified. The imaged portions of the para nasal sinuses, mastoid air cells, and orbits are unremarkable. IMPRESSION: No acute abnormality and in particular no evidence of acute infarct. Right MCA territory encephalomal acia is again noted. ACT 112: Negative or not required by law. Electronically signed by: Hiro Santoyo M.D. 09/22/2022 8:08 PM
[2022-09-22] MEDS ORDERED: MELATONIN 3 MG TAB PO SCH (21:00)
[2022-09-22] MEDS: GABAPENTIN 300 MG CAP PO SCH (21:13)
[2022-09-22] MEDS: MELATONIN 3 MG TAB PO SCH (21:14)
[2022-09-22] MEDS: clonazePAM 0.25 MG TAB PO SCH (21:38)
[2022-09-23] MEDS: ACETAMINOPHEN 500 MG TAB PO PRN (03:29)
[2022-09-23] MEDS: METHADONE ORAL SOLN 2 MG/ML PO SCH (08:51)
[2022-09-23] MEDS: MAGNESIUM OXIDE 400 MG TAB PO SCH ×2 (08:51→20:50)
[2022-09-23] MEDS: POTASSIUM CHLORIDE CRTAB 20 MEQ TABCR PO SCH ×2 (08:51→20:50)
[2022-09-23] MEDS: METOPROLOL TARTRATE 25 MG TAB PO SCH ×2 (08:52→20:50)
[2022-09-23] MEDS: GABAPENTIN 300 MG CAP PO SCH ×2 (08:52→13:49)
[2022-09-23] MEDS: BACLOFEN 10 MG TAB PO SCH ×2 (08:53→20:50)
[2022-09-23] MEDS: APIXABAN 2.5 MG TAB PO SCH ×2 (08:54→20:50)
[2022-09-23] MEDS: NICOTINE 21 MG/24 HR TDSY TD SCH (08:54)
[2022-09-23] MEDS: PANTOprazole 40 MG TAB PO SCH ×2 (08:55→20:50)
[2022-09-23] MEDS: ARIPiprazole 15 MG TAB PO SCH (08:55)
[2022-09-23] MEDS: SERTRALINE HCL 100 MG TABLET PO SCH (08:56)
[2022-09-23] MEDS: PATIENT'S OWN CONTROLLED MED 3 PO SCH (08:56)
[2022-09-23] MEDS: FUROSEMIDE 40 MG TAB PO SCH ×2 (08:56→16:58)
[2022-09-23] MEDS ORDERED: ALUMINUM/MAGNESIUM/SIMETH (MAALOX MAX) 30 ML UDC PO STA (16:07)
[2022-09-23] MEDS ORDERED: ALUMINUM/MAGNESIUM/SIMETH (MAALOX MAX) 30 ML UDC PO PRN (16:07)
--- NOTE | 2022-09-23 16:15 | Hospitalist Progress Note ---
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 eval for metabolic causes at this time urine cultures pending CT head, CTA head neck did not show any acute findings Consult PT/OT, for consideration of rehab inpatient versus outpatient Continue all of her present medications On apixaban for DVT prophylaxis and post valve replacement (2) H/O mitral valve replacement: Plan: chronic stable 07/23/22 33 mm medronic epic, discharged on asa apixiban, amiodarone metoprolol lasix chronic HFpEF, from (3) Bipolar disorder: Plan: chronic stable on clonazepam, sertraline and trazasone , doses will be eval by psychiatry and hopefully reduced (4) Drug abuse in remission: Plan: remains on methadone, pt states she wishes to try to get off of this eventually (5) Homonymous hemianopsia due to recent cerebrovascular accident: (6) Anemia: Admission and Anticipated Discharge Date Admission Date: September 21, 2022 Subjective Patient is awake and conversant. She does admit that she is depressed and is willing to have a medicine overhall. she agrees to speak to psychiatry and pastoral care . She does have left-sided weakness and is very sleepy during my exam closing her eyes and resting her eyes during speaking and occasionally tilting her head to the right. Physical Exam Physical Exam: Patient is awake alert falls asleep easily does know where she is she is oriented to person place and time Card exam is regular with a systolic murmur she is a healing sternotomy scar in her mid chest Lungs are clear with diminished at the bases Left hemiplegia is present but this is chronic Results & Data Results & Data Vital Signs (Past 12 Hours) Vital Signs Temp Pulse Pulse Pulse Resp BP Pulse Ox 09/23/22 15:41 87 18 118/75 95 09/23/22 15:00 97.9 F 97 H 18 109/75 90 09/23/22 14:01 84 09/23/22 11:00 98.4 F 77 18 109/61 90 09/23/22 07:10 09/23/22 07:30 98.6 F 87 20 113/70 94 09/23/22 07:00 86 09/23/22 06:03 76 O2 Del Method 09/23/22 15:41 Room Air 09/23/22 15:00 Room Air 09/23/22 14:01 09/23/22 11:00 Room Air 09/23/22 07:10 Room Air 09/23/22 07:30 Room Air 09/23/22 07:00 09/23/22 06:03 PG Care Time/CCT Total # of Minutes Spent Total Time Spent with Patient: Total time spent is greater than 50% in coordination of care (as documented) at patient's floor/unit and/or counseling patient: Coding Level of Care Code 72580 SUB INP/OBS CARE 235MIN Diagnoses Chronic right arterial ischemic stroke, MCA (middle cerebral artery) I69.30 H/O mitral valve replacement Z95.2 Bipolar disorder F31.9 Drug abuse in remission F19.11 Homonymous hemianopsia due to recent cerebrovascular accident I69.398; H53.469 Anemia D64.9
[2022-09-23] MEDS: clonazePAM 0.25 MG TAB PO SCH (20:50)
[2022-09-23] MEDS: MELATONIN 3 MG TAB PO SCH (20:50)
[2022-09-23] MEDS: GABAPENTIN 100 MG CAP PO SCH (20:50)
[2022-09-24] MEDS: NICOTINE 21 MG/24 HR TDSY TD SCH (09:09)
[2022-09-24] MEDS: MAGNESIUM OXIDE 400 MG TAB PO SCH ×2 (09:10→20:01)
[2022-09-24] MEDS: METOPROLOL TARTRATE 25 MG TAB PO SCH ×2 (09:10→20:02)
[2022-09-24] MEDS: BACLOFEN 10 MG TAB PO SCH ×2 (09:11→20:01)
[2022-09-24] MEDS: POTASSIUM CHLORIDE CRTAB 20 MEQ TABCR PO SCH ×2 (09:12→20:03)
[2022-09-24] MEDS: APIXABAN 2.5 MG TAB PO SCH ×2 (09:12→20:03)
[2022-09-24] MEDS: GABAPENTIN 100 MG CAP PO SCH ×2 (09:12→20:04)
[2022-09-24] MEDS: ARIPiprazole 15 MG TAB PO SCH (09:13)
[2022-09-24] MEDS: PANTOprazole 40 MG TAB PO SCH ×2 (09:13→20:03)
[2022-09-24] MEDS: SERTRALINE HCL 100 MG TABLET PO SCH (09:14)
[2022-09-24] MEDS: FUROSEMIDE 40 MG TAB PO SCH ×2 (09:14→16:42)
[2022-09-24] MEDS: METHADONE ORAL SOLN 2 MG/ML PO SCH (09:18)
[2022-09-24] MEDS: PATIENT'S OWN CONTROLLED MED 3 PO SCH (09:19)
--- NOTE | 2022-09-24 10:34 | Electrocardiogram Report ---
Test Reason : Blood Pressure : / mmHG Vent. Rate : 087 BPM Atrial Rate : 087 BPM P-R Int : 146 ms QRS Dur : 090 ms QT Int : 434 ms P-R-T Axes : 045 033 075 degrees QTc Int : 522 ms Normal sinus rhythm Diffuse Minor Nonspecific T wave abnormality Prolonged QT Abnormal ECG When compared with ECG of 21-SEP-2022 16:35, QT has lengthened Confirmed by Shankar Johnson ([id number]) on 09/24/2022 10:34:02 AM Referred By: REFERRED SELF Confirmed By:Shankar Johnson
--- NOTE | 2022-09-24 11:54 | Psychiatric Consultation ---
Date of Consultation September 24, 2022 Impression / Recommendations Impression 37 yo woman with history of opioid use disorder in sustained remission, s/p ischemic stroke with hemiparesis d/t septic emboli from endocarditis and s/p mitral valve replacement admitted medically for worsening weakness. Psychiatry consulted for depression, anxiety and medication recommendations. Diagnostically consistent with major depressive disorder with anxious distress. She reports history of bipolar affective disorder but no evidence for past episodes of nancy nor emergence of any nancy symptoms while on monotherapy sertraline so suspect BPAD diagnosis is inaccurate. Given excessive sedation during the day and prolonged QTC and history more consistent with MDD would discontinue abilify (and appears she may not have been on this prior to admission). Given her substance use history caution should be used with benzodiazepines however given that her mother manages her medications and worsening of her symptoms reasonable to consider use of BID Klonopin until an alternative SSRI can be tried. Especially since prolonged QTC limits other psychotropic options for anxiety. While she has anxiety symptoms these seem to be largely driven by worsening major depression for which low energy is her biggest compliant so once QTc improves and if felt to be safe from cardiac standpoint would consider augmentation with Wellbutrin XL 150mg daily for major depression. If anxiety worsens could then consider discontinuation and cross-taper from sertraline to escitalopram or fluoxetine. Imminent risk of harm to self is low given denial of SI, future oriented and with strong reasons for living and no history of prior attempts. (1) Major depressive disorder, recurrent episode, moderate with anxious distress: (2) MENDEZ (generalized anxiety disorder): (3) Chronic right arterial ischemic stroke, MCA (middle cerebral artery): (4) Opioid use disorder, severe, in sustained remission: Plan -Discontinue abilify -For anxiety until mood improves would use Klonopin 0.25mg BID prn (with caution for respiratory suppression given concurrent use of Methadone) -Consider reducing sertraline to 100mg daily if elevated QTc persists -Once QTc improves (<500ms) would: * Consider augmentation with Wellbutrin XL 150mg daily if felt to be safe from cardiac standpoint * If Wellbutrin worsens anxiety then would discontinue and cross-taper from sertraline to escitalopram or fluoxetine; if second SSRI trial is ineffective would then try SNRI like duloxetine (given she also experiences nerve pain issues) * Start Vistaril 25mg QID prn for anxiety * Consider use of mirtazapine 7.5mg HS for insomnia and to help with depression and anxiety Psych History Identifying Data 37 yo woman with history of opioid use disorder in sustained remission, s/p ischemic stroke with hemiparesis d/t septic emboli from endocarditis and s/p mitral valve replacement admitted medically for worsening weakness. Psychiatry consulted for depression, anxiety and medication recommendations. Chief Complaint "I've spent the last year of my life in the hospital, that's why I'm depressed and anxious". History of Present Illness Michelle was admitted for worsening weakness and endorsed increased depression and anxiety in recent weeks. Per review of her outpatient PCP notes she was seen in mid-August and expressed severe anxiety and apparently had been calling her mom up to every 5 minutes at times, not sleeping well at night, excessive fatigue during the day and periods of restlessness. She cannot give a full history of her past psychiatric medications or current medications but recalls trials of Geodone in the past (made her tired) and Wellbutrin. For awhile she was on sertraline monotherapy which had been started at [facility] following her stroke. Review of those records notable for history of BPAD, which she reports to me as well, but never with periods of elevated mood or decreased need for sleep not in the context of substance use. For many months was on sertraline monotherapy without any signs of nancy and denies to me any history of nancy or hospitalizations in the family for nancy. Endorses depression and anxiety due to prolonged hospitalizations and medical issues noting to the liason "I am a 36 year old who had a stroke of course I'm depresed". PHQ-9 score of 10 with highest score for low energy and 0 on Q9. Admantly denies any SI, nor history of attempts, and can speak to reasons for living including her daughters and black lab dog and desire to get back home and stay out of the hospital. She feels her anxiety worsens when her depression does. Denies panic attacks but notes she will feel very restless and overwhelmed. No recent substance use. Has an outpatient therapist through [facility]. Medication review: -Klonopin 0.5mg HS added mid august for extreme anxiety with her mother managing this given hx of substance use and abilify discontinued (though unclear when this was started as not listed on prior hospital records or PCP visits) -Seroquel 25mg HS started in Jul for mood stabilization and to help with insomnia and sertraline increased from 150mg daily to 200mg daily Allergies Allergy/AdvReac Type Severity Reaction Status Date / Time atorvastatin AdvReac Muscle Pain Verified 09/21/22 18:21 Home Medications Medication Instructions Recorded Confirmed Type acetaminophen 500 mg tablet 500 mg PO QID PRN Pain 02/05/22 09/21/22 History (Tylenol Extra Strength) Wheelchair (Manual) #1 ea 03/25/22 09/21/22 Rx magnesium oxide 400 mg (241.3 mg 600 mg PO BID #270 tabs 03/27/22 09/21/22 Rx magnesium) tablet Hospital Bed Homecare (Hospital #1 ea 04/18/22 09/21/22 Rx Bed) Wheelchair (Manual) (Manual #1 ea 04/18/22 09/21/22 Rx Wheelchair) baclofen 5 mg tablet 5 mg PO TID #90 tabs 08/07/22 09/21/22 Rx albuterol sulfate 90 mcg/actuation 1 inh inhalation QID PRN shortness 08/09/22 09/21/22 Rx breath activated powder inhaler of breath or wheezing #1 ea furosemide 40 mg tablet 40 mg PO BID #60 tabs 08/09/22 09/21/22 Rx melatonin 5 mg tablet 10 mg PO HS sleep #1 tab 08/09/22 09/21/22 Rx nicotine 21 mg/24 hr daily 1 patch transdermal Q24H 6 weeks 08/09/22 09/21/22 Rx transdermal patch (Nicoderm CQ) #45 ea polyethylene glycol 3350 17 17 g PO DAILY PRN constipation 08/09/22 09/21/22 History gram/dose oral powder (Miralax) sennosides 8.6 mg tablet 17.2 mg PO BID PRN constipation 08/09/22 09/21/22 History (Evac-U-Gen (sennosides)) metoprolol tartrate 50 mg tablet 25 mg PO BID #30 tabs 08/28/22 09/21/22 Rx sertraline 100 mg tablet 200 mg PO DAILY 90 days #180 tabs 08/28/22 09/21/22 Rx clonazepam 0.5 mg tablet 0.5 mg PO PM #30 tabs 03/15/23 04/01/23 Rx gabapentin 600 mg tablet 600 mg PO TID #90 tabs 09/04/22 09/21/22 Rx pantoprazole 40 mg tablet,delayed 40 mg PO DAILY #90 tabs 09/04/22 09/21/22 Rx release potassium chloride 20 mEq 20 meq PO BID #60 tabs 09/04/22 09/21/22 Rx tablet,extended release trazodone 50 mg tablet 50 mg PO HS #30 tabs 09/04/22 09/21/22 Rx apixaban 2.5 mg tablet 2.5 mg PO BID #60 tabs 09/05/22 09/21/22 Rx aripiprazole 15 mg tablet 15 mg PO DAILY 09/21/22 09/21/22 History epinephrine 0.3 mg/0.3 mL 0.3 ml IM ONCE PRN Allergic 09/21/22 09/21/22 History injection, auto-injector Reaction methadone 10 mg/mL oral concentrate 83 mg PO QAM 09/21/22 09/21/22 History Patient History Medical History Anemia Anxiety Bipolar disorder Chronic right arterial ischemic stroke, MCA (middle cerebral artery) Drug abuse and dependence Endocarditis History of embolic stroke Rt MCA PCOS (polycystic ovarian syndrome) Surgical History H/O mitral valve replacement History of section History of open heart surgery History of repair of ACL History of tubal ligation Family History Grandmother (Paternal) Breast cancer Grandfather (Maternal) Myocardial infarction Graves disease Grandfather (Paternal) Myocardial infarction Denies family history of Colon cancer Ovarian cancer Prostate cancer Social History Smoking Status: Current every day smoker Tobacco Type: Cigarettes packs per day: 1; Second Hand Exposure: No; Hx Alcohol Use: No Hx Substance Use: Yes Last Used Substance: Unknown Substance Use Type Other:: fentanyl Preferred Language: Tamaz[place] Communication Ability: Effective Visual Impairment: No Limitations Hearing Ability: Normal Revenue Agent Required: No Beliefs That Will Affect Care: Spiritual marital status: Single Current Living Situation: Alone Current Living Situation Comment: boyfriend and her 3 daughters current occupational status: employed current occupation: [employer] Feels Safe at Home: Yes Childhood Exposure to Second-Hand Smoke: No Diet Comment: regular Dental Care, Regularly: No Physical Activity Frequency: Does not Exercise Seatbelt Use: sometimes Sunscreen Use: No Assistive Devices: Walker and Wheelchair Physical Exam Psychiatric: Orientation: alert and oriented x 3 Apperance: appropriately dressed and appropriately groomed Eye Contact: + fair eye contact Motor Behavior: no abnormal motor movements (lying in bed, has hemiplegia) Speech: normal rate/rhythm/volume of speech Affect: + depressed affect and + constricted affect Mood: + depressed mood and + anxious mood Thought Process: goal directed thought process Thought Content: reality based without delusions Suicidal Thoughts: denies suicidal thoughts Homicidal Thoughts: denies homicidal thoughts Hallucinations: no auditory hallucinations and no visual hallucinations Cognition: attention grossly intact and language grossly intact Estimated Intelligence: consistent with education level Insight: + fair insight Judgment: + limited judgement Vital Signs (Past 24 Hours): Last Vital Signs Temp 37.0 C 09/24/22 11:19 Pulse 94 H 09/24/22 11:19 Resp 20 09/24/22 11:19 BP 113/73 09/24/22 11:19 Pulse Ox 94 09/24/22 11:19 O2 Del Method Room Air 09/24/22 11:19 O2 Flow Rate 2 09/23/22 01:03 Review of Systems All systems reviewed & are unremarkable except as noted in HPI & below Results & Data (PSY) Laboratory Results QTc 522 ms on EKG on 09/23/2022 decreased Na+ 135 Medications Administered Acetaminophen (Acetaminophen 500 Mg Tab) 500 mg PO QID PRN PRN Reason: Pain Stop: 10/21/22 22:58 Last Admin: 09/23/22 03:29 Dose: 500 mg Documented By: Admin: 09/22/22 13:50 Dose: 500 mg Documented By: Admin: 09/22/22 08:43 Dose: 500 mg Documented By: DYANA Apixaban (Apixaban 2.5 Mg Tab) 2.5 mg PO BID [facility] Stop: 10/21/22 22:58 Last Admin: 09/24/22 09:12 Dose: 2.5 mg Documented By: [id number] Admin: 09/23/22 20:50 Dose: 2.5 mg Documented By: Admin: 09/23/22 08:54 Dose: 2.5 mg Documented By: Admin: 09/22/22 21:10 Dose: 2.5 mg Documented By: Admin: 09/22/22 08:31 Dose: 2.5 mg Documented By: Admin: 09/22/22 00:05 Dose: 2.5 mg Documented By: ANTONY Aripiprazole (Aripiprazole 15 Mg Tab) 15 mg PO DAILY [facility] Stop: 10/22/22 08:59 Last Admin: 09/24/22 09:13 Dose: 15 mg Documented By: [id number] Admin: 09/23/22 08:55 Dose: 15 mg Documented By: Admin: 09/22/22 08:31 Dose: 15 mg Documented By: DYANA Baclofen (Baclofen 10 Mg Tab) 5 mg PO BID [facility] Stop: 10/22/22 20:59 Last Admin: 09/24/22 09:11 Dose: 5 mg Documented By: [id number] Admin: 09/23/22 20:50 Dose: 5 mg Documented By: Admin: 09/23/22 08:53 Dose: 5 mg Documented By: Admin: 09/22/22 21:11 Dose: 5 mg Documented By: CJ Clonazepam (Clonazepam 0.25 Mg Tab) 0.25 mg PO PM [facility]LEY Stop: 10/22/22 20:59 Last Admin: 09/23/22 20:50 Dose: 0.25 mg Documented By: Admin: 09/22/22 21:38 Dose: 0.25 mg Documented By: CJ Furosemide (Furosemide 40 Mg Tab) 40 mg PO BID17 [facility] Stop: 10/21/22 22:58 Last Admin: 09/24/22 09:14 Dose: 40 mg Documented By: [id number] Admin: 09/23/22 16:58 Dose: 40 mg Documented By: Admin: 09/23/22 08:56 Dose: 40 mg Documented By: Admin: 09/22/22 17:30 Dose: 40 mg Documented By: Admin: 09/22/22 11:41 Dose: 40 mg Documented By: DYANA Gabapentin (Gabapentin 100 Mg Cap) 200 mg PO BID [facility] Stop: 10/23/22 20:59 Last Admin: 09/24/22 09:12 Dose: 200 mg Documented By: [id number] Admin: 09/23/22 20:50 Dose: 200 mg Documented By: ABHISHEK Magnesium Oxide (Magnesium Oxide 400 Mg Tab) 600 mg PO BID [facility] Stop: 10/21/22 22:58 Last Admin: 09/24/22 09:10 Dose: 600 mg Documented By: [id number] Admin: 09/23/22 20:50 Dose: 600 mg Documented By: Admin: 09/23/22 08:51 Dose: 600 mg Documented By: Admin: 09/22/22 22:34 Dose: 600 mg Documented By: Admin: 09/22/22 08:33 Dose: 600 mg Documented By: Admin: 09/21/22 23:15 Dose: Not Given Documented By: ANTONY Melatonin (Melatonin 3 Mg Tab) 3 mg PO HS [facility] Stop: 10/22/22 20:59 Last Admin: 09/23/22 20:50 Dose: 3 mg Documented By: Admin: 09/22/22 21:14 Dose: 3 mg Documented By: CJ Methadone HCl (Methadone Oral Soln 2 Mg/Ml) [facility] [place] Stop: 10/08/22 08:59 Last Admin: 09/24/22 09:18 Dose: 72 mg Documented By: [id number] Metoprolol Tartrate (Metoprolol Tartrate 25 Mg Tab) 25 mg PO BID [facility] Stop: 10/21/22 22:58 Last Admin: 09/24/22 09:10 Dose: 25 mg Documented By: [id number] Admin: 09/23/22 20:50 Dose: 25 mg Documented By: Admin: 09/23/22 08:52 Dose: 25 mg Documented By: Admin: 09/22/22 21:14 Dose: 25 mg Documented By: Admin: 09/22/22 08:33 Dose: 25 mg Documented By: Admin: 09/21/22 23:16 Dose: Not Given Documented By: ANTONY Miscellaneous (Remove Nicoderm Patch) 1 each N/A DAILY@0859 [facility] Stop: 10/22/22 08:58 Last Admin: 09/24/22 09:09 Dose: 1 each Documented By: [id number] Admin: 09/23/22 08:53 Dose: 1 each Documented By: Admin: 09/22/22 06:49 Dose: Not Given Documented By: DYANA Nicotine (Nicotine 21 Mg/24 Hr Tdsy) 21 mg TD DAILY@0900 [facility] Stop: 10/22/22 08:59 Last Admin: 09/24/22 09:09 Dose: 21 mg Documented By: [id number] Admin: 09/23/22 08:54 Dose: 21 mg Documented By: Admin: 09/22/22 08:32 Dose: 21 mg Documented By: DYANA Non-Formulary Medication (Patient's Own Controlled Med 3) 1 ea PO QAM [facility] Stop: 10/06/22 08:59 Last Admin: 09/24/22 09:19 Dose: 1 each Documented By: [id number] Admin: 09/23/22 08:56 Dose: 1 each Documented By: Admin: 09/22/22 08:35 Dose: Not Given Documented By: DYANA Pantoprazole Sodium (Pantoprazole 40 Mg Tab) 40 mg PO BID [facility] Stop: 10/23/22 20:59 Last Admin: 09/24/22 09:13 Dose: 40 mg Documented By: [id number] Admin: 09/23/22 20:50 Dose: 40 mg Documented By: ABHISHEK Potassium Chloride (Potassium Chloride Crtab 20 Meq Tabcr) 20 meq PO BID [facility] Stop: 10/21/22 22:58 Last Admin: 09/24/22 09:12 Dose: 20 meq Documented By: [id number] Admin: 09/23/22 20:50 Dose: 20 meq Documented By: Admin: 09/23/22 08:51 Dose: 20 meq Documented By: Admin: 09/22/22 21:15 Dose: 20 meq Documented By: Admin: 09/22/22 08:33 Dose: 20 meq Documented By: Admin: 09/21/22 23:16 Dose: Not Given Documented By: ANTONY Sennosides (Senna 8.6 Mg Tab) 17.2 mg PO BID PRN PRN Reason: constipation Stop: 10/21/22 22:58 Last Admin: 09/23/22 08:54 Dose: 17.2 mg Documented By: DYANA Sertraline HCl (Sertraline Hcl 100 Mg Tablet) 200 mg PO DAILY [facility] Stop: 10/22/22 08:59 Last Admin: 09/24/22 09:14 Dose: 200 mg Documented By: [id number] Admin: 09/23/22 08:56 Dose: 200 mg Documented By: Admin: 09/22/22 08:32 Dose: 200 mg Documented By: DYANA Coding Level of Care Code 68545 IN/OBS CONSULT LVL 4,60M Diagnoses Major depressive disorder, recurrent episode, moderate with anxious distress F33.1 MENDEZ (generalized anxiety disorder) F41.1 Chronic right arterial ischemic stroke, MCA (middle cerebral artery) I69.30 Opioid use disorder, severe, in sustained remission F11.21 Time Spent (min) 65
[2022-09-24] MEDS: ACETAMINOPHEN 500 MG TAB PO PRN (13:14)
--- NOTE | 2022-09-24 17:03 | Hospitalist Progress Note ---
Date of Service September 24, 2022 Assessment & Plan (1) Chronic right arterial ischemic stroke, MCA (middle cerebral artery): Plan: acute symptoms with h/o Chronic left hemiplegia/chronic right MCA embolic CVA- moderate risk initial issues were related to ivda enterococcus endocarditis and embolic injury to R MCA eval for metabolic causes at this time urine cultures pending CT head, CTA head neck did not show any acute findings Consult PT/OT, for consideration of rehab inpatient versus outpatient Continue all of her present medications On apixaban for DVT prophylaxis and post valve replacement (2) H/O mitral valve replacement: Plan: chronic stable 07/23/22 33 mm medronic epic, discharged on asa apixiban, amiodarone metoprolol lasix chronic HFpEF, from (3) Bipolar disorder: Plan: Bipolar disorder may be unstable given the fact of complaints of increased depression did agree to a psychiatric evaluation with direct following recommendations Discontinue abilify -For anxiety until mood improves would use Klonopin 0.25mg BID prn (with caution for respiratory suppression given concurrent use of Methadone) -Consider reducing sertraline to 100mg daily if elevated QTc persists -Once QTc improves (<500ms) would: * Consider augmentation with Wellbutrin XL 150mg daily if felt to be safe from cardiac standpoint * If Wellbutrin worsens anxiety then would discontinue and cross-taper from sertraline to escitalopram or fluoxetine; if second SSRI trial is ineffective would then try SNRI like duloxetine (given she also experiences nerve pain issues) * Start Vistaril 25mg QID prn for anxiety * Consider use of mirtazapine 7.5mg HS for insomnia and to help with depression and anxiety * * Will start by discontinuing Abilify using Vistaril as needed and reducing sertraline to 101/10/13 (4) Drug abuse in remission: Plan: remains on methadone, pt states she wishes to try to get off of this eventually Reduced dose of methadone on 09/23/2022 from 83 mg to 72 mg (5) Homonymous hemianopsia due to recent cerebrovascular accident: (6) Anemia: Plan Hopeful placement for rehabilitation Admission and Anticipated Discharge Date Admission Date: September 21, 2022 Subjective Patient is awake and conversant. Seems improved over 09/23 with some medication reductions she does admit that she is depressed and had a good visit with her inpatient psychiatrist and pastoral care counselor Is encouraged to have her medications reconciled . She does have left-sided weakness and is less sleepy today on 09/24/2022 Physical Exam Physical Exam: Patient is awake alert is oriented to person place and time Card exam is regular with a systolic murmur she is a healing sternotomy scar in her mid chest Lungs are clear with diminished at the bases Left hemiplegia is present but this is chronic with worsening performance status per physical and Occupational Therapy evaluations Results & Data Results & Data Vital Signs (Past 12 Hours) Vital Signs Temp Pulse Pulse Resp BP Pulse Ox O2 Del Method 09/24/22 16:51 74 09/24/22 16:51 Room Air 09/24/22 15:53 98.4 F 73 18 114/71 94 Room Air 09/24/22 14:31 Room Air 09/24/22 11:19 98.6 F 94 H 20 113/73 94 Room Air 09/24/22 10:01 79 09/24/22 08:03 97.7 F 82 18 129/71 91 Room Air Laboratory Results Urine culture suggest contaminated specimen PG Care Time/CCT Total # of Minutes Spent Total Time Spent with Patient: Total time spent is greater than 50% in coordination of care (as documented) at patient's floor/unit and/or counseling patient: Coding Level of Care Code 34416 SUB INP/OBS CARE 235MIN Diagnoses Chronic right arterial ischemic stroke, MCA (middle cerebral artery) I69.30 H/O mitral valve replacement Z95.2 Bipolar disorder F31.9 Drug abuse in remission F19.11 Homonymous hemianopsia due to recent cerebrovascular accident I69.398; H53.469 Anemia D64.9
[2022-09-24] MEDS: clonazePAM 0.25 MG TAB PO SCH (20:02)
[2022-09-24] MEDS: MELATONIN 3 MG TAB PO SCH (20:04)
[2022-09-25] MEDS: PANTOprazole 40 MG TAB PO SCH ×2 (09:16→20:49)
[2022-09-25] MEDS: BACLOFEN 10 MG TAB PO SCH ×2 (09:16→20:52)
[2022-09-25] MEDS: METOPROLOL TARTRATE 25 MG TAB PO SCH ×2 (09:17→20:49)
[2022-09-25] MEDS: MAGNESIUM OXIDE 400 MG TAB PO SCH ×2 (09:17→20:53)
[2022-09-25] MEDS: GABAPENTIN 100 MG CAP PO SCH ×2 (09:17→20:49)
[2022-09-25] MEDS: SERTRALINE HCL 100 MG TABLET PO SCH (09:18)
[2022-09-25] MEDS: APIXABAN 2.5 MG TAB PO SCH ×2 (09:18→20:51)
[2022-09-25] MEDS: POTASSIUM CHLORIDE CRTAB 20 MEQ TABCR PO SCH ×2 (09:18→20:51)
[2022-09-25] MEDS: FUROSEMIDE 40 MG TAB PO SCH ×2 (09:20→16:40)
[2022-09-25] MEDS: NICOTINE 21 MG/24 HR TDSY TD SCH (09:20)
[2022-09-25] MEDS: PATIENT'S OWN CONTROLLED MED 3 PO SCH (09:24)
[2022-09-25] MEDS: METHADONE ORAL SOLN 2 MG/ML PO SCH (09:25)
[2022-09-25] MEDS: hydrOXYzine HCl 25 MG TAB PO PRN ×2 (09:25→17:51)
--- NOTE | 2022-09-25 17:25 | Hospitalist Progress Note ---
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 eval for metabolic causes at this time urine cultures pending CT head, CTA head neck did not show any acute findings Consult PT/OT, for consideration of rehab inpatient versus outpatient Continue all of her present medications On apixaban for DVT prophylaxis and post valve replacement (2) H/O mitral valve replacement: Plan: chronic stable 07/23/22 33 mm medronic epic, discharged on asa apixiban, amiodarone metoprolol lasix chronic HFpEF, from (3) Bipolar disorder: Plan: Bipolar disorder may be unstable given the fact of complaints of increased depression did agree to a psychiatric evaluation with direct following recommendations Discontinue abilify -For anxiety until mood improves would use Klonopin 0.25mg BID prn (with caution for respiratory suppression given concurrent use of Methadone) -Consider reducing sertraline to 100mg daily if elevated QTc persists -Once QTc improves (<500ms) would: * Consider augmentation with Wellbutrin XL 150mg daily if felt to be safe from cardiac standpoint * If Wellbutrin worsens anxiety then would discontinue and cross-taper from sertraline to escitalopram or fluoxetine; if second SSRI trial is ineffective would then try SNRI like duloxetine (given she also experiences nerve pain issues) * Start Vistaril 25mg QID prn for anxiety * Consider use of mirtazapine 7.5mg HS for insomnia and to help with depression and anxiety * * Will start by discontinuing Abilify using Vistaril as needed and reducing sertraline to 101/10/13 (4) Drug abuse in remission: Plan: remains on methadone, pt states she wishes to try to get off of this eventually Reduced dose of methadone on 09/23/2022 from 83 mg to 72 mg (5) Homonymous hemianopsia due to recent cerebrovascular accident: (6) Anemia: Plan Patient was denied rehab on a physician to physician appeal on 09/25/2022. Patient wants to go home mother says she can care for her. Mother states she is going to do a family appeal to the insurance company. Patient became completely angry and threw a tray table in her room. At this point time without a good caregiver at home given the patient's dense left hemiparesis we cannot discharge the patient Admission and Anticipated Discharge Date Admission Date: September 21, 2022 Subjective Patient is awake and conversant. Seems improved over 09/23 with some medication reductions she does admit that she is depressed and had a good visit with her inpatient psychiatrist and pastoral care counselor Is encouraged to have her medications reconciled . She does have left-sided weakness and is less sleepy today on 09/24/2022 Physical Exam Physical Exam: Patient is awake alert is oriented to person place and time Card exam is regular with a systolic murmur she is a healing sternotomy scar in her mid chest Lungs are clear with diminished at the bases Left hemiplegia is present but this is chronic with worsening performance status per physical and Occupational Therapy evaluations Results & Data Results & Data Vital Signs (Past 12 Hours) Vital Signs Temp Pulse Pulse Resp BP Pulse Ox O2 Del Method 09/25/22 16:07 88 09/25/22 11:05 97.9 F 79 18 102/69 93 Room Air 09/25/22 09:00 Room Air 09/25/22 06:45 80 09/25/22 07:12 98.2 F 80 16 120/77 99 Room Air PG Care Time/CCT Total # of Minutes Spent Total Time Spent with Patient: Total time spent is greater than 50% in coordination of care (as documented) at patient's floor/unit and/or counseling patient: Coding Level of Care Code 47952 SUB INP/OBS CARE 2/35MIN Diagnoses Chronic right arterial ischemic stroke, MCA (middle cerebral artery) I69.30 H/O mitral valve replacement Z95.2 Bipolar disorder F31.9 Drug abuse in remission F19.11 Homonymous hemianopsia due to recent cerebrovascular accident I69.398; H53.469 Anemia D64.9
[2022-09-25] MEDS: clonazePAM 0.25 MG TAB PO SCH (20:49)
[2022-09-25] MEDS: MELATONIN 3 MG TAB PO SCH (20:50)
[2022-09-26] MEDS: MAGNESIUM OXIDE 400 MG TAB PO SCH ×2 (07:55→20:55)
[2022-09-26] MEDS: BACLOFEN 10 MG TAB PO SCH ×2 (07:56→20:57)
[2022-09-26] MEDS: APIXABAN 2.5 MG TAB PO SCH ×2 (07:56→20:53)
[2022-09-26] MEDS: POTASSIUM CHLORIDE CRTAB 20 MEQ TABCR PO SCH ×2 (07:57→20:53)
[2022-09-26] MEDS: FUROSEMIDE 40 MG TAB PO SCH ×2 (07:57→17:44)
[2022-09-26] MEDS: NICOTINE 21 MG/24 HR TDSY TD SCH (07:57)
[2022-09-26] MEDS: PANTOprazole 40 MG TAB PO SCH ×2 (07:58→20:55)
[2022-09-26] MEDS: SERTRALINE HCL 100 MG TABLET PO SCH (07:58)
[2022-09-26] MEDS: GABAPENTIN 100 MG CAP PO SCH ×2 (07:58→20:54)
[2022-09-26] MEDS: METOPROLOL TARTRATE 25 MG TAB PO SCH ×2 (07:58→20:58)
[2022-09-26] MEDS: PATIENT'S OWN CONTROLLED MED 3 PO SCH (08:04)
[2022-09-26] MEDS: METHADONE ORAL SOLN 2 MG/ML PO SCH (08:04)
[2022-09-26] MEDS: ACETAMINOPHEN 500 MG TAB PO PRN (13:37)
[2022-09-26] MEDS: hydrOXYzine HCl 25 MG TAB PO PRN (17:58)
[2022-09-26] MEDS: clonazePAM 0.25 MG TAB PO SCH (20:54)
[2022-09-26] MEDS: MELATONIN 3 MG TAB PO SCH (20:58)
--- NOTE | 2022-09-26 22:30 | Hospitalist Progress Note ---
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 eval for metabolic causes at this time urine cultures pending CT head, CTA head neck did not show any acute findings Consult PT/OT, for consideration of rehab inpatient versus outpatient Continue all of her present medications On apixaban for DVT prophylaxis and post valve replacement (2) H/O mitral valve replacement: Plan: chronic stable 07/23/22 33 mm medronic epic, discharged on asa apixiban, amiodarone metoprolol lasix chronic HFpEF, from (3) Bipolar disorder: Plan: Bipolar disorder may be unstable given the fact of complaints of increased depression did agree to a psychiatric evaluation with direct following recommendations Discontinue abilify -For anxiety until mood improves would use Klonopin 0.25mg BID prn (with caution for respiratory suppression given concurrent use of Methadone) -Consider reducing sertraline to 100mg daily if elevated QTc persists -Once QTc improves (<500ms) would: * Consider augmentation with Wellbutrin XL 150mg daily if felt to be safe from cardiac standpoint * If Wellbutrin worsens anxiety then would discontinue and cross-taper from sertraline to escitalopram or fluoxetine; if second SSRI trial is ineffective would then try SNRI like duloxetine (given she also experiences nerve pain issues) * Start Vistaril 25mg QID prn for anxiety * Consider use of mirtazapine 7.5mg HS for insomnia and to help with depression and anxiety * * Will start by discontinuing Abilify using Vistaril as needed and reducing sertraline to 101// (4) Drug abuse in remission: Plan: remains on methadone, pt states she wishes to try to get off of this eventually Reduced dose of methadone on 09/23/2022 from 83 mg to 72 mg (5) Homonymous hemianopsia due to recent cerebrovascular accident: (6) Anemia: Plan Patient was denied rehab on a physician to physician appeal on 09/25/2022. Patient wants to go home mother says she can care for her. Mother states she is going to do a family appeal to the insurance company. Family appeal denied. At this point time without a good caregiver at home given the patient's dense left hemiparesis we cannot discharge the patient Plan to discharge on home health on 09/27 Admission and Anticipated Discharge Date Admission Date: September 21, 2022 Subjective Patient is requesting to be discharged. Review of Systems Review of Systems: All systems reviewed & are unremarkable except as noted in HPI & below Physical Exam Physical Exam: Patient is awake alert is oriented to person place and time Card exam is regular with a systolic murmur she is a healing sternotomy scar in her mid chest Lungs are clear with diminished at the bases Left hemiplegia is present but this is chronic with worsening performance status per physical and Occupational Therapy evaluations Results & Data Results & Data Vital Signs (Past 12 Hours) Vital Signs Temp Pulse Pulse Resp BP BP Pulse Ox 09/26/22 20:00 36.6 C 87 20 136/81 98 09/26/22 16:35 36.8 C 84 20 122/68 95 09/26/22 14:16 99 H 09/26/22 12:02 36.8 C 74 20 110/73 91 O2 Del Method 09/26/22 20:00 Room Air 09/26/22 16:35 Room Air 09/26/22 14:16 09/26/22 12:02 Room Air PG Care Time/CCT Total # of Minutes Spent Total Time Spent with Patient: Total time spent is greater than 50% in coordination of care (as documented) at patient's floor/unit and/or counseling patient: Coding Level of Care Code 26034 SUB INP/OBS CARE 2/35MIN Diagnoses Chronic right arterial ischemic stroke, MCA (middle cerebral artery) I69.30 H/O mitral valve replacement Z95.2 Bipolar disorder F31.9 Drug abuse in remission F19.11 Homonymous hemianopsia due to recent cerebrovascular accident I69.398; H53.469 Anemia D64.9
[2022-09-27] MEDS: METOPROLOL TARTRATE 25 MG TAB PO SCH (08:38)
[2022-09-27] MEDS: BACLOFEN 10 MG TAB PO SCH (08:39)
[2022-09-27] MEDS: FUROSEMIDE 40 MG TAB PO SCH (08:40)
[2022-09-27] MEDS: MAGNESIUM OXIDE 400 MG TAB PO SCH (08:41)
[2022-09-27] MEDS: SERTRALINE HCL 100 MG TABLET PO SCH (08:42)
[2022-09-27] MEDS: PANTOprazole 40 MG TAB PO SCH (08:42)
[2022-09-27] MEDS: GABAPENTIN 100 MG CAP PO SCH (08:43)
[2022-09-27] MEDS: POTASSIUM CHLORIDE CRTAB 20 MEQ TABCR PO SCH (08:45)
[2022-09-27] MEDS: APIXABAN 2.5 MG TAB PO SCH (08:45)
[2022-09-27] MEDS: METHADONE ORAL SOLN 2 MG/ML PO SCH (08:55)
[2022-09-27] MEDS: NICOTINE 21 MG/24 HR TDSY TD SCH (08:55)
[2022-09-27] MEDS: PATIENT'S OWN CONTROLLED MED 3 PO SCH (08:56)
--- NOTE | 2022-09-27 13:16 | Discharge Summary ---
Date of Service September 27, 2022 Admission HPI Per Admitting Provider The patient is a 37-year-old female with a past medical history including mitral valve replacement, bipolar disorder, drug abuse in remission, left spastic hemiparesis, homonymous hemianopsia due to CVA, dysphagia, decubitus skin ulcer, history of CVA, anemia, anxiety and morbid obesity. The patient was brought into the emergency department due to concerns regarding more difficulty with ambulation and functioning in general due to some mild worsening of left sided weakness. However, upon my questioning, patient reports that there has not been and acute change that she can tell, but there has been some gradual weakening, and she has been trying to get PT and OT scheduled for the outpatient setting Principal Diagnosis Problem 1 Discharge Exam Patient is awake alert is oriented to person place and time Card exam is regular with a systolic murmur she is a healing sternotomy scar in her mid chest Lungs are clear with diminished at the bases Left hemiplegia is present but this is chronic Discharge Data Allergies Allergy/AdvReac Type Severity Reaction Status Date / Time atorvastatin AdvReac Muscle Pain Verified 09/21/22 18:21 Consultations 09/21/22 19:58 ED Decision to Admit Stat 09/23/22 13:04 Consult Psychiatry Routine Ordered Studies 09/21/22 16:28 CT angio head w con Stat CT angio neck with con Stat CT head/brain wo con Stat 09/22/22 16:33 MRI Brain [MR brain wo con] Routine Hospital Course (1) Chronic right arterial ischemic stroke, MCA (middle cerebral artery): acute symptoms with h/o Chronic left hemiplegia/chronic right MCA embolic CVA- moderate risk initial issues were 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 Continue all of her present medications On apixaban for DVT prophylaxis and post valve replacement (2) H/O mitral valve replacement: chronic stable 07/23/22 33 mm medronic epic, discharged on asa apixiban, amiodarone metoprolol lasix chronic HFpEF, from (3) Bipolar disorder: Major depressive disorder, recurrent, moderate likely the cause of pt's presenting symptoms Bipolar disorder may be unstable given the fact of complaints of increased depression did agree to a psychiatric evaluation with direct following recommendations Discontinue abilify -For anxiety until mood improves would use Klonopin 0.25mg BID prn (with caution for respiratory suppression given concurrent use of Methadone) -Consider reducing sertraline to 100mg daily if elevated QTc persists -Once QTc improves (<500ms) would: * Consider augmentation with Wellbutrin XL 150mg daily if felt to be safe from cardiac standpoint * If Wellbutrin worsens anxiety then would discontinue and cross-taper from sertraline to escitalopram or fluoxetine; if second SSRI trial is ineffective would then try SNRI like duloxetine (given she also experiences nerve pain issues) * Start Vistaril 25mg QID prn for anxiety * Consider use of mirtazapine 7.5mg HS for insomnia and to help with depression and anxiety * * Will start by discontinuing Abilify using Vistaril as needed and reducing sertraline to (4) Drug abuse in remission: remains on methadone, pt states she wishes to try to get off of this eventually Reduced dose of methadone on 09/23/2022 from 83 mg to 72 mg (5) Homonymous hemianopsia due to recent cerebrovascular accident: (6) Anemia: Plan Patient was denied rehab on a physician to physician appeal on 09/25/2022. Patient wants to go home mother says she can care for her. Mother states she is going to do a family appeal to the insurance company. Family appeal denied. At this point time without a good caregiver at home given the patient's dense left hemiparesis we cannot discharge the patient Plan to discharge on home health on 09/27 Total Time Total Time Spent Total Time Spent (In Minutes): 32 Discharge Plan Discharge Items Patient Disposition: Home - Home Health Services Reason For Visit: left side weakness, hemiplegia Discharge Diagnosis: depression Activity: Resume your previous activity Non-emergency contact: Primary Care Provider Call non-emergency contact if: you have any medication questions Follow-up/Referrals: Stacey Arce MD [Primary Care Provider] - 10/04/22 4:00 pm Diet: Regular Addtl Attending Provider Instructions: You have been hospitalized for an acute medical problem. During your stay at [facility], we have made an effort to correct the problem that brought you to the hospital while keeping you as comfortable as possible. Medications were used to bring your condition under control and your discharge instructions will include directions for any medications you should take after leaving the hospital. Please make sure you see your Primary Care Provider as part of your follow up plan. Pending Studies at Discharge: No Stand-Alone Forms: My [facility], Smoking Cessation Medications and DC Order Prescriptions: New hydroxyzine HCl 25 mg Tablet 25 mg PO Q6H PRN (Reason: anxiety or itch) Qty: 30 0RF clonazepam 0.5 mg Tablet 0.25 mg PO BID PRN (Reason: anxiety) Qty: 20 0RF Continued acetaminophen [Tylenol Extra Strength] 500 mg tablet 500 mg PO QID PRN (Reason: Pain) Rx Instructions: [facility] 815 magnesium oxide 400 mg (241.3 mg magnesium) tablet 600 mg PO BID Qty: 270 3RF Rx Instructions: [facility] 8/15 albuterol sulfate 90 mcg/actuation aerosol powdr breath activated 1 inh inhalation QID PRN (Reason: shortness of breath or wheezing) Qty: 1 0RF furosemide 40 mg tablet 40 mg PO BID Qty: 60 2RF polyethylene glycol 3350 [Miralax] 17 gram/dose powder 17 g PO DAILY PRN (Reason: constipation) sennosides [Evac-U-Gen (sennosides)] 8.6 mg tablet 17.2 mg PO BID PRN (Reason: constipation) Rx Instructions: [facility] 815 nicotine [Nicoderm CQ] 21 mg/24 hr patch 24 hour 1 patch transdermal Q24H 42 Days Qty: 45 0RF Rx Instructions: has not started yet metoprolol tartrate 50 mg tablet 25 mg PO BID Qty: 30 2RF apixaban 2.5 mg tablet 2.5 mg PO BID Qty: 60 1RF pantoprazole 40 mg tablet,delayed release (DR/EC) 40 mg PO DAILY Qty: 90 2RF potassium chloride 20 mEq tablet extended release 20 meq PO BID Qty: 60 3RF (DME) Wheelchair (Manual) Device See Rx Instructions .Route Qty: 1 0RF Rx Instructions: As [id number] Z86.73 (DME) Hospital Bed Misc See Rx Instructions .Route Qty: 1 0RF Rx Instructions: As directed G81.9, I63.411 (DME) Manual Wheelchair Device See Rx Instructions .Route Qty: 1 0RF Rx Instructions: [address] WC please G81.9 epinephrine 0.3 mg/0.3 mL auto-injector 0.3 ml IM ONCE PRN (Reason: Allergic Reaction) Changed melatonin 5 mg tablet 5 mg PO HS Qty: 1 0RF baclofen 5 mg tablet 5 mg PO BID Qty: 90 2RF sertraline 100 mg tablet 100 mg PO DAILY 90 Days Qty: 180 3RF Rx Instructions: [facility] 02/04 methadone 10 mg/mL concentrate 72 mg PO QAM Qty: 10 0RF Rx Instructions: BEING MANAGED BY THE [facility] IN [place] [facility] gabapentin 600 mg tablet 600 mg PO TID Qty: 90 5RF clonazepam 0.5 mg tablet 0.5 mg PO PM Qty: 30 0RF trazodone 50 mg tablet 50 mg PO HS Qty: 30 5RF aripiprazole 15 mg tablet 15 mg PO DAILY No Action gabapentin 600 mg tablet 600 mg PO TID Qty: 90 5RF Discharge Orders: Discharge Order (Routine); Ordered 09/27/22 Ordered By: Kvng Monroe Admission Data Admit Date/Time: 09/21/22 21:13 Attending Provider: Kvng Monroe Admit Provider: Yadiel Romeo Primary Care Provider: Stacey Arce Other Providers: Yadiel Romeo ; Carolann Trujillo ; Jocelyne Nagy ; Jean [place] ; [facility] Other Interventions: Discharge Summary Assessment (RN) Last Done: 09/27/22 15:12 Coding Level of Care Code 45928 INP/OBS DISCH >30 MIN Diagnoses Chronic right arterial ischemic stroke, MCA (middle cerebral artery) I69.30 H/O mitral valve replacement Z95.2 Bipolar disorder F31.9 Drug abuse in remission F19.11 Homonymous hemianopsia due to recent cerebrovascular accident I69.398; H53.469 Anemia D64.9
--- NOTE | 2022-09-27 17:12 | Electrocardiogram Report ---
Test Reason : Blood Pressure : / mmHG Vent. Rate : 081 BPM Atrial Rate : 081 BPM P-R Int : 154 ms QRS Dur : 090 ms QT Int : 432 ms P-R-T Axes : 078 064 081 degrees QTc Int : 501 ms Normal sinus rhythm Prolonged QT Abnormal ECG When compared with ECG of 23-SEP-2022 15:43, Nonspecific T wave abnormality no longer evident in Inferior leads Nonspecific T wave abnormality has replaced inverted T waves in Anterior leads Confirmed by Shankar Johnson ([id number] on 09/27/2022 5:12:29 PM Referred By: REFERRED SELF Confirmed By:Shankar Johnson
== END 2022-09-27 15:35 | disposition home health service (06) ==
LOC: ED 16:16 → INTOOBSV 21:13 → 2W 21:13 → SUATTDRO 21:13 → 2W 22:17

== ENCOUNTER 2022-11-19 14:08 | Inpatient (IN) ==
--- NOTE | 2022-11-19 14:39 | Emergency Department Note ---
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 Mother reports that since yesterday the patient has had an extremely foul smell to her urine. She states that she has been having difficulties urinating. She reports that she was incontinent. She reports that she had a fever of Tmax 103. She reports that she has been weak and tired. She reports a cough. Home Medications Medication Instructions Recorded Confirmed Type acetaminophen 500 mg tablet 500 mg PO QID PRN Pain 02/05/22 11/19/22 History (Tylenol Extra Strength) Wheelchair (Manual) #1 ea 03/25/22 11/19/22 Rx magnesium oxide 400 mg (241.3 mg 600 mg PO BID #270 tabs 03/27/22 11/19/22 Rx magnesium) tablet Hospital Bed Homecare (Hospital #1 ea 04/18/22 11/19/22 Rx Bed) Wheelchair (Manual) (Manual #1 ea 04/18/22 11/19/22 Rx Wheelchair) albuterol sulfate 90 mcg/actuation 1 inh inhalation QID PRN shortness 08/09/22 11/19/22 Rx breath activated powder inhaler of breath or wheezing #1 ea polyethylene glycol 3350 17 17 g PO DAILY PRN constipation 08/09/22 11/19/22 History gram/dose oral powder (Miralax) sennosides 8.6 mg tablet 17.2 mg PO BID PRN constipation 08/09/22 11/19/22 History (Evac-U-Gen (sennosides)) metoprolol tartrate 50 mg tablet 25 mg PO BID #30 tabs 08/28/22 11/19/22 Rx potassium chloride 20 mEq 20 meq PO BID #60 tabs 09/04/22 11/19/22 Rx tablet,extended release apixaban 2.5 mg tablet 2.5 mg PO BID #60 tabs 09/05/22 11/19/22 Rx epinephrine 0.3 mg/0.3 mL 0.3 ml IM ONCE PRN Allergic 09/21/22 11/19/22 History injection, auto-injector Reaction baclofen 5 mg tablet 5 mg PO BID #90 tabs 09/27/22 11/19/22 Rx hydroxyzine HCl 25 mg tablet 25 mg PO Q6H PRN anxiety or itch 09/27/22 11/19/22 Rx #30 tabs melatonin 5 mg tablet 5 mg PO HS sleep #1 tab 09/27/22 11/19/22 Rx methadone 10 mg/mL oral concentrate 72 mg (7.2 mL) PO QAM #10 mL 09/27/22 11/19/22 Rx gabapentin 600 mg tablet 600 mg PO TID #90 tabs 09/30/22 11/19/22 Rx cetirizine 10 mg capsule (Zyrtec) 10 mg PO DAILY PRN allergy 10/08/22 11/19/22 Rx symptoms #30 caps Lift Chair #1 ea 10/09/22 11/19/22 Rx miscellaneous medical supply #1 ea 10/16/22 11/19/22 Rx furosemide 40 mg tablet 40 mg PO BID #60 tabs 10/22/22 11/19/22 Rx clonazepam 0.5 mg tablet 0.5 mg PO PM 11/19/22 11/19/22 History ketoconazole 2 % topical cream 1 applic topical BID 4 weeks #15 11/19/22 11/19/22 Rx grams nicotine 21 mg/24 hr daily 1 patch transdermal Q24H PRN at 11/19/22 11/19/22 History transdermal patch (Nicoderm CQ) request pantoprazole 40 mg tablet,delayed 40 mg PO DAILYBB 11/19/22 11/19/22 History release sertraline 100 mg tablet 200 mg PO QAM 11/19/22 11/19/22 History Allergies Allergy/AdvReac Type Severity Reaction Status Date / Time sulfamethoxazole Allergy Severe Anaphylaxis Verified 11/19/22 12:56 [From Bactrim] trimethoprim [From Bactrim] Allergy Severe Anaphylaxis Verified 11/19/22 12:56 atorvastatin AdvReac Muscle Pain Verified 11/19/22 12:56 Past Med/Surg History Medical History Anemia Anxiety Bipolar disorder Chronic right arterial ischemic stroke, MCA (middle cerebral artery) Drug abuse and dependence Endocarditis History of embolic stroke Rt MCA PCOS (polycystic ovarian syndrome) Surgical History H/O mitral valve replacement History of section History of open heart surgery History of repair of ACL History of tubal ligation Family History Grandmother (Paternal) Breast cancer Grandfather (Maternal) Myocardial infarction Graves disease Grandfather (Paternal) Myocardial infarction Denies family history of Colon cancer Ovarian cancer Prostate cancer Social History Smoking Status: Current every day smoker Tobacco Type: Cigarettes packs per day: 1; Second Hand Exposure: No; Do You Dip or Chew Tobacco: No; Hx Alcohol Use: No Hx Substance Use: Yes Last Used Substance: Unknown Substance Use Type Other:: fentanyl Preferred Language: Gu[place]ian Communication Ability: Effective Visual Impairment: No Limitations Hearing Ability: Normal Order Expediter Required: No Beliefs That Will Affect Care: Spiritual marital status: Single Current Living Situation: Alone Current Living Situation Comment: boyfriend and her 3 daughters 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 Feels Safe at Home: Yes Childhood Exposure to Second-Hand Smoke: No Diet: regular Diet Comment: regular Dental Care, Regularly: No Physical Activity Frequency: Does not Exercise Seatbelt Use: sometimes Sunscreen Use: No Assistive Devices: Walker and Wheelchair Physical Exam Vital Signs Vital Signs - 24 hr 11/19/22 14:15 11/19/22 14:32 11/19/22 14:49 Temperature 36.7 C Temperature Source Temporal Artery Scan Pulse Rate 92 H 90 86 Pulse Rate [Apical] Pulse Rate from SpO2 Sensor Respiratory Rate 18 16 Respiratory Effort / Characteristics Non-Labored Respiratory Depth Normal Blood Pressure 123/73 Blood Pressure [Right Arm] Blood Pressure Mean 89 Blood Pressure Mean [Right Arm] Blood Pressure Position Sitting Blood Pressure Position [Right Arm] Pulse Oximetry 95 93 Oxygen Delivery Method Room Air Room Air Oxygen Flow Rate Sepsis Recent Fever Within 48 Hours Yes Sepsis New/Unexplained Change in Mental Status No Sepsis Action Taken by Nursing No Action Required Oxygen Flow Rate - Titration Pulse Oximetry Post Tiitration 11/19/22 15:44 11/19/22 15:55 11/19/22 16:00 Temperature Temperature Source Pulse Rate Pulse Rate [Apical] 83 85 Pulse Rate from SpO2 Sensor Respiratory Rate 18 16 Respiratory Effort / Characteristics Respiratory Depth Blood Pressure Blood Pressure [Right Arm] 93/54 L 81/57 L Blood Pressure Mean Blood Pressure Mean [Right Arm] 67 65 Blood Pressure Position Blood Pressure Position [Right Arm] Lying Lying Pulse Oximetry 96 88 L 97 Oxygen Delivery Method Nasal Cannula Room Air Nasal Cannula Nasal Cannula Oxygen Flow Rate 2 2 Sepsis Recent Fever Within 48 Hours Sepsis New/Unexplained Change in Mental Status Sepsis Action Taken by Nursing Oxygen Flow Rate - Titration 2 Pulse Oximetry Post Tiitration 97 11/19/22 16:45 11/19/22 17:10 11/19/22 18:36 Temperature Temperature Source Pulse Rate 79 Pulse Rate [Apical] 81 81 Pulse Rate from SpO2 Sensor 79 Respiratory Rate 16 18 18 Respiratory Effort / Characteristics Respiratory Depth Blood Pressure 108/65 Blood Pressure [Right Arm] 105/68 83/60 L Blood Pressure Mean 79 Blood Pressure Mean [Right Arm] 80 67 Blood Pressure Position Blood Pressure Position [Right Arm] Lying Lying Pulse Oximetry 98 97 94 Oxygen Delivery Method Nasal Cannula Nasal Cannula Nasal Cannula Oxygen Flow Rate 2 2 2 Sepsis Recent Fever Within 48 Hours Sepsis New/Unexplained Change in Mental Status Sepsis Action Taken by Nursing Oxygen Flow Rate - Titration Pulse Oximetry Post Tiitration 11/19/22 18:36 11/19/22 18:39 11/19/22 18:59 Temperature Temperature Source Pulse Rate 83 Pulse Rate [Apical] 79 Pulse Rate from SpO2 Sensor Respiratory Rate 18 Respiratory Effort / Characteristics Respiratory Depth Blood Pressure Blood Pressure [Right Arm] 93/70 L 98/56 L Blood Pressure Mean Blood Pressure Mean [Right Arm] 77 70 Blood Pressure Position Blood Pressure Position [Right Arm] Lying Pulse Oximetry 97 Oxygen Delivery Method Nasal Cannula Oxygen Flow Rate 2 Sepsis Recent Fever Within 48 Hours Sepsis New/Unexplained Change in Mental Status Sepsis Action Taken by Nursing Oxygen Flow Rate - Titration Pulse Oximetry Post Tiitration 11/19/22 20:01 11/19/22 20:30 11/19/22 21:00 Temperature Temperature Source Pulse Rate Pulse Rate [Apical] 79 78 78 Pulse Rate from SpO2 Sensor Respiratory Rate 18 18 18 Respiratory Effort / Characteristics Respiratory Depth Blood Pressure Blood Pressure [Right Arm] 104/76 97/64 L 101/70 Blood Pressure Mean Blood Pressure Mean [Right Arm] 85 75 80 Blood Pressure Position Blood Pressure Position [Right Arm] Pulse Oximetry 98 98 98 Oxygen Delivery Method Nasal Cannula Nasal Cannula Nasal Cannula Oxygen Flow Rate 2 2 2 Sepsis Recent Fever Within 48 Hours Sepsis New/Unexplained Change in Mental Status Sepsis Action Taken by Nursing Oxygen Flow Rate - Titration Pulse Oximetry Post Tiitration 11/19/22 22:00 11/19/22 22:15 11/19/22 22:27 Temperature Temperature Source Pulse Rate 78 Pulse Rate [Apical] 77 78 Pulse Rate from SpO2 Sensor Respiratory Rate 18 18 Respiratory Effort / Characteristics Respiratory Depth Blood Pressure Blood Pressure [Right Arm] 92/63 L 95/63 L Blood Pressure Mean Blood Pressure Mean [Right Arm] 72 73 Blood Pressure Position Blood Pressure Position [Right Arm] Pulse Oximetry 98 97 Oxygen Delivery Method Nasal Cannula Nasal Cannula Oxygen Flow Rate 2 2 Sepsis Recent Fever Within 48 Hours Sepsis New/Unexplained Change in Mental Status Sepsis Action Taken by Nursing Oxygen Flow Rate - Titration Pulse Oximetry Post Tiitration Physical Exam HENT: Exam performed. -Head: Normocephalic and atraumatic. -Right Ear: External ear normal. No mastoid erythema -Left Ear: External ear normal. No mastoid erythema EYES: Conjunctivae and EOM are normal. Pupils are equal, round, and reactive to light. Right eye exhibits no discharge. Left eye exhibits no discharge. No scleral icterus. NECK: Normal range of motion. Neck supple. No JVD present. No tracheal deviation and normal range of motion present. CV: Normal rate, regular rhythm. Heart murmur present. Intact distal pulses. There is no peripheral edema. Palpable radial pulses bue. PULM/CHEST: Rhonchi bilaterally. ABD: The abdomen is soft and obese there is no tenderness. There is no rebound, no guarding NEURO: Left-sided weakness which is baseline for the patient. Course Course 1421: The patient was evaluated in room C6. A complete history and physical exam was performed Cardiac monitoring: An order was placed for continuous cardiac monitoring. The monitor shows a rate of 90 with sinus rhythm interpreted by me 1600: Patient became hypoxic on room air. Supplemental oxygen was applied which improved the patient's oxygen saturation. 2000: Vital signs stable on supplemental oxygen via nasal cannula. Labs show white blood cell count of 8.82. Hemoglobin 10.8. Coagulation studies within normal limits. Initial lactic acid was 2.3. Patient received 30 cc/kg bolus based off of her ideal body weight which improved her lactic acid to 1.2. Procalcitonin urinalysis negative. CT head chest x-ray negative. MRI of the lumbar spine was an incomplete examination because the patient would not tolerate any more and the results of the MRI did not show any signs spinal cord compression no cauda equina. CT of the abdomen pelvis showed an 11 cm fluid collection/cystic lesion identified within the spleen. It was thought to be pathologically indeterminant but could have represented a complex abscess. An ultrasound was recommended to provide further information. Ultrasound of the spleen was conducted which showed splenomegaly but the appearance of the lesion on ultrasound appeared relatively heterogeneous and isointense with the splenic parenchyma. Patient was treated with broad-spectrum antibiotics Zosyn and vancomycin. Given the patient's history of IVDA and significant comorbidities, it was thought that the patient would be best admitted to the hospital service and continued IV antibiotics until blood cultures come back and until a possible echo could be conducted. Discussed the case with [facility] hospitalist Dr. Haney [phone] who states he will be down to assess the patient. Administered Medications Discontinued Medications Sodium Chloride (Nss 1000ml) 1,000 mls @ 999 mls/hr IV .Q1H1M SHIRLEY Stop: 11/19/22 15:45 Last Infusion: 11/19/22 18:20 Dose: 0 mls/hr Documented By: Admin: 11/19/22 15:36 Dose: 999 mls/hr Documented By: QGV Sodium Chloride (Nss 1000ml) 1,000 mls @ 999 mls/hr IV .Q1H1M ONE Stop: 11/19/22 16:44 Last Infusion: 11/19/22 18:20 Dose: 0 mls/hr Documented By: Admin: 11/19/22 15:51 Dose: 999 mls/hr Documented By: WCS Piperacillin Sod/Tazobactam Sod (Zosyn) 4.5 gm in 120 mls @ 240 mls/hr IV NOW ONE Stop: 11/19/22 20:11 Last Infusion: 11/19/22 20:48 Dose: 0 mls/hr Documented By: Admin: 11/19/22 20:06 Dose: 240 mls/hr Documented By: COREEN Vancomycin HCl 2,750 mg/ (Sodium Chloride) 555 mls @ 200 mls/hr IV NOW ONE Stop: 11/19/22 22:28 Last Admin: 11/19/22 20:06 Dose: 200 mls/hr Documented By: COREEN Ketorolac Tromethamine (Ketorolac Tromethamine 15 Mg/Ml Vial) 15 mg IV NOW STA Stop: 11/19/22 16:15 Last Admin: 11/19/22 16:45 Dose: 15 mg Documented By: ALETA Lorazepam (Lorazepam 2 Mg/1 Ml Vial) 0.5 mg IV NOW STA Stop: 11/19/22 16:15 Last Admin: 11/19/22 17:23 Dose: 0.5 mg Documented By: ALETA Medical Decision Making Laboratory Data Attestation: I reviewed the patient's lab results. 11/19/22 14:49 11/19/22 14:49 Lab Results 11/19/22 11/19/22 11/19/22 Range/Units 14:49 14:49 14:49 WBC 8.82 (4.8-10.8) K/ul RBC 4.96 (4.20-5.40) M/uL Hgb 10.8 L (12.0-16.0) g/dl Hct 36.9 L (37.0-47.0) % MCV 74.4 L (80.0-100.0) fL MCH 21.8 L (25.0-34.0) pg MCHC 29.3 L (32.0-36.0) g/dL RDW Std Deviation 43.1 (36.4-46.3) fL RDW Coeff of Alexia 16.2 H (11.5-14.5) % Plt Count 557 H (130-400) K/uL MPV 9.7 (9.4-12.4) fL Immature Gran % (Auto) 0.3 % Neut % (Auto) 71.9 % Lymph % (Auto) 20.3 % [place] % (Auto) 5.0 % Eos % (Auto) 1.7 % Baso % (Auto) 0.8 % Neut # (Auto) 6.34 (1.40-6.50) K/uL Lymph # (Auto) 1.79 (1.2-3.4) K/uL [place] # (Auto) 0.44 (0.11-0.59) K/uL Eos # (Auto) 0.15 (0-0.50) K/uL Baso # (Auto) 0.07 (0-0.2) K/uL Immature Gran # (Auto) 0.03 (0.01-0.20) K/uL PT 10.6 (9.0-12.0) Seconds INR 1.0 (0.9-1.1) APTT 27.1 (21.0-31.0) Seconds PTT Ratio 1.0 Sodium 136 (136-145) mmol/L Potassium 3.9 (3.5-5.1) mmol/L Chloride 100 (98-107) mmol/L Carbon Dioxide 28 (21-32) mmol/L Anion Gap 8 (3-11) BUN 16 (6-23) mg/dl Creatinine 1.06 (0.6-1.2) mg/dl Est Cr Clr Drug Dosing Not Reportable Est GFR ( Amer) 78.2 ml/min Est GFR (Non-Af Amer) 67.5 ml/min BUN/Creatinine Ratio 15.1 (10-20) Glucose 108 H (70-99(Fasting)) mg/dl Lactate (0.4-2.0) mmol/L Calcium 9.0 (8.6-10.3) mg/dl Magnesium 2.0 (1.7-2.4) mg/dl Total Bilirubin 0.3 (0.2-1.0) mg/dl Direct Bilirubin 0.0 (0-0.2) mg/dl AST 14 (13-39) U/L ALT 15 (7-52) U/L Alkaline Phosphatase 118 H (34-104) U/L Troponin I High Sens 2.4 (0-14) pg/ml Total Protein 9.0 H (6.0-8.3) gm/dl Albumin 3.7 (3.4-5.0) gm/dl Procalcitonin (0-0.5) ng/ml Urine Color Urine Appearance (Clear) Urine pH (4.5-7.5) Ur Specific [place] (1.000-1.030) Urine Protein (Negative) Urine Glucose (UA) (Negative) Urine Ketones (Negative) Urine Blood (Negative) Urine Nitrite (Negative) Urine Bilirubin (Negative) Urine Urobilinogen (Negative) Ur Leukocyte Esterase (Negative) SARS-CoV-2 (PCR) (Negative) Influenza Type A (PCR) (Neg) Influenza Type B (PCR) (Neg) RSV (RT-PCR) (Neg) 11/19/22 11/19/22 11/19/22 Range/Units 14:49 14:49 17:27 WBC (4.8-10.8) K/ul RBC (4.20-5.40) M/uL Hgb (12.0-16.0) g/dl Hct (37.0-47.0) % MCV (80.0-100.0) fL MCH (25.0-34.0) pg MCHC (32.0-36.0) g/dL RDW Std Deviation (36.4-46.3) fL RDW Coeff of Alexia (11.5-14.5) % Plt Count (130-400) K/uL MPV (9.4-12.4) fL Immature Gran % (Auto) % Neut % (Auto) % Lymph % (Auto) % [place] % (Auto) % Eos % (Auto) % Baso % (Auto) % Neut # (Auto) (1.40-6.50) K/uL Lymph # (Auto) (1.2-3.4) K/uL [place] # (Auto) (0.11-0.59) K/uL Eos # (Auto) (0-0.50) K/uL Baso # (Auto) (0-0.2) K/uL Immature Gran # (Auto) (0.01-0.20) K/uL PT (9.0-12.0) Seconds INR (0.9-1.1) APTT (21.0-31.0) Seconds PTT Ratio Sodium (136-145) mmol/L Potassium (3.5-5.1) mmol/L Chloride (98-107) mmol/L Carbon Dioxide (21-32) mmol/L Anion Gap (3-11) BUN (6-23) mg/dl Creatinine (0.6-1.2) mg/dl Est Cr Clr Drug Dosing Est GFR ( Amer) ml/min Est GFR (Non-Af Amer) ml/min BUN/Creatinine Ratio (10-20) Glucose (70-99(Fasting)) mg/dl Lactate 2.3 H* 1.2 (0.4-2.0) mmol/L Calcium (8.6-10.3) mg/dl Magnesium (1.7-2.4) mg/dl Total Bilirubin (0.2-1.0) mg/dl Direct Bilirubin (0-0.2) mg/dl AST (13-39) U/L ALT (7-52) U/L Alkaline Phosphatase (34-104) U/L Troponin I High Sens (0-14) pg/ml Total Protein (6.0-8.3) gm/dl Albumin (3.4-5.0) gm/dl Procalcitonin < 0.05 (0-0.5) ng/ml Urine Color Urine Appearance (Clear) Urine pH (4.5-7.5) Ur Specific [place] (1.000-1.030) Urine Protein (Negative) Urine Glucose (UA) (Negative) Urine Ketones (Negative) Urine Blood (Negative) Urine Nitrite (Negative) Urine Bilirubin (Negative) Urine Urobilinogen (Negative) Ur Leukocyte Esterase (Negative) SARS-CoV-2 (PCR) (Negative) Influenza Type A (PCR) (Neg) Influenza Type B (PCR) (Neg) RSV (RT-PCR) (Neg) 11/19/22 11/19/22 Range/Units 20:15 Unknown WBC (4.8-10.8) K/ul RBC (4.20-5.40) M/uL Hgb (12.0-16.0) g/dl Hct (37.0-47.0) % MCV (80.0-100.0) fL MCH (25.0-34.0) pg MCHC (32.0-36.0) g/dL RDW Std Deviation (36.4-46.3) fL RDW Coeff of Alexia (11.5-14.5) % Plt Count (130-400) K/uL MPV (9.4-12.4) fL Immature Gran % (Auto) % Neut % (Auto) % Lymph % (Auto) % [place] % (Auto) % Eos % (Auto) % Baso % (Auto) % Neut # (Auto) (1.40-6.50) K/uL Lymph # (Auto) (1.2-3.4) K/uL [place] # (Auto) (0.11-0.59) K/uL Eos # (Auto) (0-0.50) K/uL Baso # (Auto) (0-0.2) K/uL Immature Gran # (Auto) (0.01-0.20) K/uL PT (9.0-12.0) Seconds INR (0.9-1.1) APTT (21.0-31.0) Seconds PTT Ratio Sodium (136-145) mmol/L Potassium (3.5-5.1) mmol/L Chloride (98-107) mmol/L Carbon Dioxide (21-32) mmol/L Anion Gap (3-11) BUN (6-23) mg/dl Creatinine (0.6-1.2) mg/dl Est Cr Clr Drug Dosing Est GFR ( Amer) ml/min Est GFR (Non-Af Amer) ml/min BUN/Creatinine Ratio (10-20) Glucose (70-99(Fasting)) mg/dl Lactate (0.4-2.0) mmol/L Calcium (8.6-10.3) mg/dl Magnesium (1.7-2.4) mg/dl Total Bilirubin (0.2-1.0) mg/dl Direct Bilirubin (0-0.2) mg/dl AST (13-39) U/L ALT (7-52) U/L Alkaline Phosphatase (34-104) U/L Troponin I High Sens (0-14) pg/ml Total Protein (6.0-8.3) gm/dl Albumin (3.4-5.0) gm/dl Procalcitonin (0-0.5) ng/ml Urine Color Yellow Urine Appearance Clear (Clear) Urine pH 5.5 (4.5-7.5) Ur Specific [place] 1.012 (1.000-1.030) Urine Protein Negative (Negative) Urine Glucose (UA) Negative (Negative) Urine Ketones Negative (Negative) Urine Blood Negative (Negative) Urine Nitrite Negative (Negative) Urine Bilirubin Negative (Negative) Urine Urobilinogen Negative (Negative) Ur Leukocyte Esterase Negative (Negative) SARS-CoV-2 (PCR) NEGATIVE (Negative) Influenza Type A (PCR) Negative (Neg) Influenza Type B (PCR) Negative (Neg) RSV (RT-PCR) Negative (Neg) Imaging Data Radiologist's Impression: Abdomen/Pelvis CT 11/19/22 14:31 CT SCAN OF THE ABDOMEN AND PELVIS WITHOUT IV CONTRAST CLINICAL HISTORY: Fever. Dysuria. COMPARISON STUDY: Pelvic ultrasound dated 08/27/2012. Chest CT dated 08/02/2021. TECHNIQUE: CT scan of the abdomen and pelvis is performed from the lung bases to the proximal femora. Images are reviewed in the axial, sagittal, and coronal planes. IV contrast was not administered for this examination. A dose lowering technique was utilized adhering to the principles of ALARA. The examination is degraded by large body habitus, and by streak artifact from the body wall abutting the CT gantry. CT DOSE: 1879.99 mGy.cm FINDINGS: Lung bases: The patient is status post midline sternotomy. Question previous mitral valve surgery. The heart is normal in size and without pericardial effusion. The lung bases are clear noting dependent atelectasis. Liver: The unenhanced liver is enlarged, measuring 24 cm in length. The liver demonstrates diffusely diminished attenuation indicating steatosis. Fatty sparing is seen adjacent to the gallbladder fossa. There is no intrahepatic biliary ductal dilatation. Gallbladder: Suspect cholelithiasis. There is no CT evidence of cholecystitis. Spleen: The spleen is enlarged measuring 16.2 cm in length. There is an 11 cm fluid collection versus cystic lesion identified in the spleen. Pancreas: The unenhanced pancreas is mildly atrophic and grossly unremarkable. Adrenal glands: Unremarkable. Kidneys: The unenhanced kidneys are normal in size and without hydronephrosis. There are no renal calculi identified. There is no evidence of contour deforming renal mass lesion. Abdominal vasculature: The abdominal aorta is normal in course and caliber. Bowel: There is no bowel obstruction. The appendix is well-visualized and tanvir l. Peritoneum: There is no intraperitoneal free air or abdominal ascites. There is a fat-containing umbilical hernia. Lymphadenopathy: None. Pelvic viscera: The bladder, uterus, and adnexa are normal as visualized. Skeletal structures: Sclerotic change is noted in the sacroiliac joints. There is mild lumbosacral spondylosis. No lytic or blastic lesions are seen. IMPRESSION: 1. Hepatomegaly and hepatic steatosis. 2. Splenomegaly. 3. There is an 11 cm fluid collection/cystic lesion identified within the spleen. This is pathologically indeterminate, but represents a significant change from a [address] A complex collection such as abscess is not excluded. Clinical correlation will be essential. An ultrasound of the spleen may provide further information. 4. Suspect cholelithiasis. 5. Additional findings as above. ACT 112: Negative or not required by law. Electronically signed by: Gaudencio Phillips M.D. 11/19/2022 4:00 PM Chest X-Ray 11/19/22 14:31 XR chest 1V portable CLINICAL HISTORY: Sepsis. COMPARISON STUDY: Chest CT August 02, 2021. Chest radiograph October 08, 2022. FINDINGS: There are median sternotomy wires. Cardiomediastinal silhouette is stable. No pneumothorax or pleural effusion. Mild interstitial prominence is noted. No definite consolidation to suggest pneumonia. IMPRESSION: Mild interstitial prominence. This may reflect pulmonary vascular congestion. No definite consolidation. ACT 112: Negative or not required by law. Electronically signed by: Justin Valle M.D. 11/19/2022 4:[address] 11/19/22 14:[address] DOSE: 547.75 mGy.cm HISTORY: weakness TECHNIQUE: Multiaxial CT images of the head were performed without the use of intravenous contrast. Automated exposure control was utilized for this study. A dose lowering technique was utilized adhering to the principles of ALARA. Comparison: Head CT 09/21/2022. Findings: The paranasal sinuses and mastoid air cells are clear. No change in the old right MCA territory infarct with ex vacuo dilatation of the right lateral ventricle. There is no mass, hematoma, or acute infarct identified. Right midline shift remains stable. Impression: 1. 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 2. No acute infarct or intracranial hemorrhage identified. ACT 112: Negative or not required by law. Electronically signed by: Mauricio Matos M.D. 11/19/2022 3:38 PM Lumbar Spine MRI 11/19/22 14:54 MRI OF THE LUMBAR SPINE WITHOUT IV CONTRAST CLINICAL HISTORY: Low back pain. Fever. Incontinence. COMPARISON STUDY: Abdominal CT was performed on the same day, 11/19/2022. TECHNIQUE: MRI of the lumbar spine was attempted. Sagittal T2-weighted sequences and axial T2-weighted sequences were obtained. The patient declined further imaging and contrast was not administered. The examination is degraded by large body habitus and motion artifact. FINDINGS: Vertebral body height and alignment are maintained throughout the lumbar spine. Tiny anterior osteophytes are seen throughout. The spinous processes appear intact. There is no evidence of spondylolysis. Chronic degenerative endplate change is noted at L5-S1. There is no marrow edema. Disc desiccation is seen throughout the lumbar spine. There is moderate loss of height at L1-L2 and L5-S1. The imaged spinal cord is normal in morphology and signal intensity. The conus medullaris terminates at the level of L1. The nerve roots of the cauda equina are normal in morphology. The central canal is clear. There is no evidence of high-grade neuroforaminal stenosis throughout the lumbar region. There is fatty atrophy of the paraspinous musculature. The paraspinous soft tissues are otherwise normal in appearance. The visualized retroperitoneal structures are grossly unremarkable but incompletely evaluated. IMPRESSION: 1. Incomplete and degraded examination. The patient declined further imaging or contrast administration. 2. No acute bony abnormality is identified. 3. There is no central canal stenosis. 4. Chronic degenerative endplate change is noted at L5-S1. Dictated: 11/19/2022 6:10 PM Transcribed: 11/19/2022 6:23 PM Jb [id number] [email or web address] Electronically signed by: Gaudencio Phillips M.D. 11/19/2022 7:23 PM Abdomen Ultrasound 11/19/22 16:35 Exam(s): US ABDOMEN LIMITED EXAM: US Abdomen Limited, Right Upper Quadrant CLINICAL HISTORY: Reason for exam: splenic us ro abscess. TECHNIQUE: Real-time ultrasound of the right upper quadrant with image documentation. COMPARISON: CT 11/19/22. FINDINGS: Limited due to body habitus and patient condition. Spleen: Splenomegaly, spleen measures 18.4 cm. The lesion demonstrated on CT is poorly characterized in demonstrated on ultrasound, appears relatively heterogeneous and nearly isointense with the splenic parenchyma, measures roughly 6.1 x 8.4 x 6.8 cm. IMPRESSION: Splenomegaly, spleen measures 18.4 cm. The lesion demonstrated on CT is poorly characterized in demonstrated on ultrasound, appears relatively heterogeneous and nearly isointense with the splenic parenchyma, measures roughly 6.1 x 8.4 x 6.8 cm. Electronically signed by: Job Davis M.D. 11/19/22 19:13 PM ECG Data Attestation: I personally reviewed and interpreted this ECG as follows: Rate (beats per minute): 86 Rhythm: + normal sinus ECG Intervals/blocks: + Normal QRS, + Normal VT and + Normal QT-c ECG ST segments: + Normal ST segments [facility] Narrative 1421: The patient was evaluated in room C6. A complete history and physical exam was performed Cardiac monitoring: An order was placed for continuous cardiac monitoring. The monitor shows a rate of 90 with sinus rhythm interpreted by me 1600: Patient became hypoxic on room air. Supplemental oxygen was applied which improved the patient's oxygen saturation. 2000: Vital signs stable on supplemental oxygen via nasal cannula. Labs show white blood cell count of 8.82. Hemoglobin 10.8. Coagulation studies within normal limits. Initial lactic acid was 2.3. Patient received 30 cc/kg bolus based off of her ideal body weight which improved her lactic acid to 1.2. Procalcitonin urinalysis negative. CT head chest x-ray negative. MRI of the lumbar spine was an incomplete examination because the patient would not tolerate any more and the results of the MRI did not show any signs spinal cord compression no cauda equina. CT of the abdomen pelvis showed an 11 cm fluid collection/cystic lesion identified within the spleen. It was thought to be pathologically indeterminant but could have represented a complex abscess. An ultrasound was recommended to provide further information. Ultrasound of the spleen was conducted which showed splenomegaly but the appearance of the lesion on ultrasound appeared relatively heterogeneous and isointense with the splenic parenchyma. Patient was treated with broad-spectrum antibiotics Zosyn and vancomycin. Given the patient's history of IVDA and significant comorbidities, it was thought that the patient would be best admitted to the hospital service and continued IV antibiotics until blood cultures come back and until a possible echo could be conducted. Discussed the case with [facility] hospitalist Dr. Haney [phone] who states he will be down to assess the patient. Impression & Plan Hypoxia, Lactic acidemia Discharge Plan Visit Data Chief Complaint: Back Injury/Pain Stated Complaint: SEVERE BACK PAIN, UNABLE TO URINATE ED Provider: [place] Discharge Problem: Hypoxia, Lactic acidemia Patient Disposition: Admitted As Inpatient Forms Stand Alone Forms: My [facility] Prescriptions Prescriptions: No Action acetaminophen [Tylenol Extra Strength] 500 mg tablet 500 mg PO QID PRN (Reason: Pain) Rx Instructions: [facility] 02/04 magnesium oxide 400 mg (241.3 mg magnesium) tablet 600 mg PO BID Qty: 270 3RF Rx Instructions: [facility] 02/04 albuterol sulfate 90 mcg/actuation aerosol powdr breath activated 1 inh inhalation QID PRN (Reason: shortness of breath or wheezing) Qty: 1 0RF polyethylene glycol 3350 [Miralax] 17 gram/dose powder 17 g PO DAILY PRN (Reason: constipation) sennosides [Evac-U-Gen (sennosides)] 8.6 mg tablet 17.2 mg PO BID PRN (Reason: constipation) Rx Instructions: [facility] 02/04 metoprolol tartrate 50 mg tablet 25 mg PO BID Qty: 30 2RF apixaban 2.5 mg tablet 2.5 mg PO BID Qty: 60 1RF gabapentin 600 mg tablet 600 mg PO TID Qty: 90 5RF ([facility]) Lift Chair Misc See Rx Instructions .Route Qty: 1 0RF Rx Instructions: As directed ([facility] [place]) miscellaneous medical supply [facility] See Rx Instructions .ROUTE .MEDSUPPLY Qty: 1 0RF Rx Instructions: Left wrist splint Dx: lt spastic hemiparesis furosemide 40 mg tablet 40 mg PO BID Qty: 60 2RF potassium chloride 20 mEq tablet extended release 20 meq PO BID Qty: 60 3RF Zyrtec 10 mg capsule 10 mg PO DAILY PRN (Reason: allergy symptoms) Qty: 30 0RF ([facility] [place]) Wheelchair (Manual) Device See Rx Instructions .Route Qty: 1 0RF Rx Instructions: As [id number] Z86.73 ([facility] [place]) Hospital Bed Misc See Rx Instructions .Route Qty: 1 0RF Rx Instructions: As directed G81.9, I63.411 ([facility] [place]) Manual Wheelchair Device See Rx Instructions .Route Qty: 1 0RF Rx Instructions: [address] WC please G81.9 sertraline 100 mg tablet 200 mg PO QAM Rx Instructions: [facility] 02/04 ketoconazole 2 % cream 1 applic topical BID 28 Days Qty: 15 0RF epinephrine 0.3 mg/0.3 mL auto-injector 0.3 ml IM ONCE PRN (Reason: Allergic Reaction) hydroxyzine HCl 25 mg Tablet 25 mg PO Q6H PRN (Reason: anxiety or itch) Qty: 30 0RF melatonin 5 mg tablet 5 mg PO HS Qty: 1 0RF baclofen 5 mg tablet 5 mg PO BID Qty: 90 2RF methadone 10 mg/mL concentrate 72 mg PO QAM Qty: 10 0RF Rx Instructions: BEING MANAGED BY [facility] IN [place] clonazepam 0.5 mg tablet 0.5 mg PO PM pantoprazole 40 mg tablet,delayed release (DR/EC) 40 mg PO DAILYBB nicotine [Nicoderm CQ] 21 mg/24 hr patch 24 hour 1 patch transdermal Q24H PRN (Reason: at request) Referrals Referrals: Stacey Arce MD [Primary Care Provider] -
[2022-11-19] MEDS ORDERED: SODIUM CHLORIDE 0.9% 1000ML 1,000 ML IV SCH (14:45)
[2022-11-19 15:24] LABS: Basophils # (auto) 0.07 K/uL (0-0.2); Basophils % (auto) 0.8 %; Eosinophils # (auto) 0.15 K/uL (0-0.50); Eosinophils % (auto) 1.7 %; Hematocrit (blood only) 36.9 % (37.0-47.0); Hemoglobin 10.8 g/dl (12.0-16.0); Immature Granulocytes # (auto) 0.03 K/uL (0.01-0.20); Immature Granulocytes % (auto) 0.3 %; Lymphocytes # (auto) 1.79 K/uL (1.2-3.4); Lymphocytes % (auto) 20.3 %; Mean Corpuscular Hemoglobin 21.8 pg (25.0-34.0); Mean Corpuscular Hgb Conc 29.3 g/dL (32.0-36.0); Mean Corpuscular Volume 74.4 fL (80.0-100.0); Mean Platelet Volume 9.7 fL (9.4-12.4); Monocytes # (auto) 0.44 K/uL (0.11-0.59); Neutrophils # (auto) 6.34 K/uL (1.40-6.50); Neutrophils % (auto) 71.9 %; Platelet Count 557 K/uL (130-400); RDW Coefficient of Variation 16.2 % (11.5-14.5); RDW Standard Deviation 43.1 fL (36.4-46.3); Red Blood Count 4.96 M/uL (4.20-5.40); White Blood Count 8.82 K/ul (4.8-10.8)
[2022-11-19 15:35] LABS: Alanine Aminotransferase 15 U/L (7-52); Albumin Level 3.7 gm/dl (3.4-5.0); Alkaline Phosphatase 118 U/L (34-104); Anion Gap 8 (3-11); Aspartate Aminotransferase 14 U/L (13-39); BUN Creatinine Ratio 15.1 (10-20); Bilirubin,Total 0.3 mg/dl (0.2-1.0); Blood Urea Nitrogen 16 mg/dl (6-23); Carbon Dioxide 28 mmol/L (21-32); Chloride 100 mmol/L (98-107); Est GFR (African American) 78.2 ml/min; Est GFR (Non-African American) 67.5 ml/min; Glucose 108 mg/dl (70-99(Fasting)); Potassium 3.9 mmol/L (3.5-5.1); Sodium 136 mmol/L (136-145)
--- NOTE | 2022-11-19 15:39 | CT Scan Report ---
HEAD CT NONCONTRAST CT DOSE: 547.75 mGy.cm HISTORY: weakness TECHNIQUE: Multiaxial CT images of the head were performed without the use of intravenous contrast. A utomated exposure control was utilized for this study. A dose lowering technique was utilized adheri ng to the principles of ALARA. Comparison: Head CT 09/21/2022. Findings: The paranasal sinuses and mastoid air cells are clear. No change in the old right MCA brad tory infarct with ex vacuo dilatation of the right lateral ventricle. There is no mass, hematoma, or acute infarct identified. Right midline shift remains stable. Impression: 1. 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 2. No acute infarct or intracranial hemorrhage identified. ACT 112: Negative or not required by law. Electronically signed by: Mauricio Matos M.D. 11/19/2022 3:38 PM
[2022-11-19 15:42] LABS: Troponin I High Sensitivity 2.4 pg/ml (0-14)
[2022-11-19] MEDS ORDERED: SODIUM CHLORIDE 0.9% 1000ML 1,000 ML IV ONE (15:44)
[2022-11-19 15:59] LABS: Partial Thromboplastin Time 27.1 Seconds (21.0-31.0); Prothrombin Time 10.6 Seconds (9.0-12.0)
--- NOTE | 2022-11-19 16:02 | CT Scan Report ---
CT SCAN OF THE ABDOMEN AND PELVIS WITHOUT IV CONTRAST CLINICAL HISTORY: Fever. Dysuria. COMPARISON STUDY: Pelvic ultrasound dated 08/27/2012. Chest CT dated 08/02/2021. TECHNIQUE: CT scan of the abdomen and pelvis is performed from the lung bases to the proximal femora. Images are reviewed in the axial, sagittal, and coronal planes. IV contrast was not administered for this examination. A dose lowering technique was utilized adhering to the principles of ALARA. The ex amination is degraded by large body habitus, and by streak artifact from the body wall abutting the C T gantry. CT DOSE: 1879.99 mGy.cm FINDINGS: Lung bases: The patient is status post midline sternotomy. Question previous mitral valve surgery. Th e heart is normal in size and without pericardial effusion. The lung bases are clear noting dependent atelectasis. Liver: The unenhanced liver is enlarged, measuring 24 cm in length. The liver demonstrates diffusely diminished attenuation indicating steatosis. Fatty sparing is seen adjacent to the gallbladder fossa. There is no intrahepatic biliary ductal dilatation. Gallbladder: Suspect cholelithiasis. There is no CT evidence of cholecystitis. Spleen: The spleen is enlarged measuring 16.2 cm in length. There is an 11 cm fluid collection versus cystic lesion identified in the spleen. Pancreas: The unenhanced pancreas is mildly atrophic and grossly unremarkable. Adrenal glands: Unremarkable. Kidneys: The unenhanced kidneys are normal in size and without hydronephrosis. There are no renal inga culi identified. There is no evidence of contour deforming renal mass lesion. Abdominal vasculature: The abdominal aorta is normal in course and caliber. Bowel: There is no bowel obstruction. The appendix is well-visualized and normal. Peritoneum: There is no intraperitoneal free air or abdominal ascites. There is a fat-containing umbi lical hernia. Lymphadenopathy: None. Pelvic viscera: The bladder, uterus, and adnexa are normal as visualized. Skeletal structures: Sclerotic change is noted in the sacroiliac joints. There is mild lumbosacral sp ondylosis. No lytic or blastic lesions are seen. IMPRESSION: 1. Hepatomegaly and hepatic steatosis. 2. Splenomegaly. 3. There is an 11 cm fluid collection/cystic lesion identified within the spleen. This is pathologica lly indeterminate, but represents a significant change from a [address] A complex collection suc h as abscess is not excluded. Clinical correlation will be essential. An ultrasound of the spleen may provide further information. 4. Suspect cholelithiasis. 5. Additional findings as above. ACT 112: Negative or not required by law. Electronically signed by: Gaudencio Phillips M.D. 11/19/2022 4:00 PM
[2022-11-19] MEDS ORDERED: LORazepam 2 MG/1 ML VIAL IV STA (16:14)
[2022-11-19] MEDS ORDERED: KETOROLAC TROMETHAMINE 15 MG/ML VIAL IV STA (16:14)
--- NOTE | 2022-11-19 16:18 | Electrocardiogram Report ---
Test Reason : Blood Pressure : / mmHG Vent. Rate : 086 BPM Atrial Rate : 086 BPM P-R Int : 152 ms QRS Dur : 088 ms QT Int : 414 ms P-R-T Axes : 055 054 070 degrees QTc Int : 495 ms Normal sinus rhythm Low voltage QRS Diffuse Minor Nonspecific T wave abnormality Abnormal ECG When compared with ECG of 27-SEP-2022 14:08, Nonspecific T wave abnormality now evident in Inferior leads Confirmed by Shankar Johnson ([id number]) on 11/19/2022 4:17:46 PM Referred By: Stacey Arce Confirmed By:Shankar Johnson
--- NOTE | 2022-11-19 16:21 | XRay Report ---
XR chest 1V portable CLINICAL HISTORY: Sepsis. COMPARISON STUDY: Chest CT August 02, 2021. Chest radiograph October 08, 2022. FINDINGS: There are median sternotomy wires. Cardiomediastinal silhouette is stable. No pneumothorax or pleural effusion. Mild interstitial prominence is noted. No definite consolidation to suggest pneu monia. IMPRESSION: Mild interstitial prominence. This may reflect pulmonary vascular congestion. No definite consolidation. ACT 112: Negative or not required by law. Electronically signed by: Justin Valle M.D. 11/19/2022 4:19 PM
[2022-11-19 16:27] LABS: Appearance Urine Clear (Clear); Bilirubin Urine Negative (Negative); Blood Urine Negative (Negative); Color Urine Yellow; Glucose Urine UA Negative (Negative); Ketones Urine Negative (Negative); Leukocyte Esterase Urine Negative (Negative); Nitrite Urine Negative (Negative); Protein Urine Negative (Negative); Specific Gravity Urine 1.012 (1.000-1.030); Urobilinogen Urine Negative (Negative); pH Urine 5.5 (4.5-7.5)
--- NOTE | 2022-11-19 19:14 | Ultrasound Report ---
Exam(s): US ABDOMEN LIMITED EXAM: US Abdomen Limited, Right Upper Quadrant CLINICAL HISTORY: Reason for exam: splenic us ro abscess. TECHNIQUE: Real-time ultrasound of the right upper quadrant with image documentation. COMPARISON: CT 11/19/22. FINDINGS: Limited due to body habitus and patient condition. Spleen: Splenomegaly, spleen measures 18.4 cm. The lesion demonstrated on CT is poorly characterized in demonstrated on ultrasound, appears relatively heterogeneous and nearly isointense with the splenic parenchyma, measures roughly 6.1 x 8.4 x 6.8 cm. IMPRESSION: Splenomegaly, spleen measures 18.4 cm. The lesion demonstrated on CT is poorly characterized in demonstrated on ultrasound, appears relatively heterogeneous and nearly isointense with the splenic parenchyma, measures roughly 6.1 x 8.4 x 6.8 cm. Electronically signed by: Job Davis M.D. 11/19/22 19:13 PM
--- NOTE | 2022-11-19 19:25 | Magnetic Resonance Report ---
MRI OF THE LUMBAR SPINE WITHOUT IV CONTRAST CLINICAL HISTORY: Low back pain. Fever. Incontinence. COMPARISON STUDY: Abdominal CT was performed on the same day, 11/19/2022. TECHNIQUE: MRI of the lumbar spine was attempted. Sagittal T2-weighted sequences and axial T2-weighte d sequences were obtained. The patient declined further imaging and contrast was not administered. Th e examination is degraded by large body habitus and motion artifact. FINDINGS: Vertebral body height and alignment are maintained throughout the lumbar spine. Tiny anteri or osteophytes are seen throughout. The spinous processes appear intact. There is no evidence of spon dylolysis. Chronic degenerative endplate change is noted at L5-S1. There is no marrow edema. Disc kendal iccation is seen throughout the lumbar spine. There is moderate loss of height at L1-L2 and L5-S1. Th e imaged spinal cord is normal in morphology and signal intensity. The conus medullaris terminates at the level of L1. The nerve roots of the cauda equina are normal in morphology. The central canal is clear. There is no evidence of high-grade neuroforaminal stenosis throughout the lumbar region. There is fatty atrophy of the paraspinous musculature. The paraspinous soft tissues are otherwise normal i n appearance. The visualized retroperitoneal structures are grossly unremarkable but incompletely teddy luated. IMPRESSION: 1. Incomplete and degraded examination. The patient declined further imaging or contrast administrati on. 2. No acute bony abnormality is identified. 3. There is no central canal stenosis. 4. Chronic degenerative endplate change is noted at L5-S1. Dictated: 11/19/2022 6:10 PM Transcribed: 11/19/2022 6:23 PM Jb [id number] [email or web address] Electronically signed by: Gaudencio Phillips M.D. 11/19/2022 7:23 PM
[2022-11-19] MEDS ORDERED: VANCOMYCIN HCL 2,750 MG in SODIUM CHLORIDE 0.9% 500 ML IV ONE (19:42)
[2022-11-19] MEDS ORDERED: VANCOMYCIN CONSULT ACTIVE PRN (19:42)
[2022-11-19] MEDS ORDERED: PIPERACILLIN/TAZOBACTAM 4.5 GM/120 ML BAG IV ONE (19:42)
[2022-11-19 21:15] LABS: Influenza A virus by PCR Negative (Neg); Influenza B virus by PCR Negative (Neg); RSV by PCR Negative (Neg); SARS CoV2 RNA(COVID-19) Ceph NEGATIVE (Negative)
[2022-11-19] MEDS ORDERED: SODIUM CHLORIDE 0.9% 1000ML 1,000 ML IV STA (23:56)
[2022-11-20] MEDS ORDERED: SODIUM CHLORIDE 0.9% 1000ML 1,000 ML IV SCH (01:09)
[2022-11-20] MEDS ORDERED: ACETAMINOPHEN 500 MG TAB PO PRN (01:09)
[2022-11-20] MEDS ORDERED: POLYETHYLENE (MIRALAX) 17 GM PACK PO PRN (01:09)
[2022-11-20] MEDS ORDERED: NICOTINE 21 MG/24 HR TDSY TD PRN (01:09)
[2022-11-20] MEDS ORDERED: ALBUTEROL HFA 8 GM INHALER INH PRN (01:24)
[2022-11-20] MEDS: MELATONIN 3 MG TAB PO PRN (01:56)
[2022-11-20 05:21] LABS: A calco-baum cmplx NotReported Not Detected (NotDetected); Bact fragilis Not Reported Not Detected (NotDetected); C auris Not Reported Not Detected (NotDetected); Calbicans Not Reported Not Detected (NotDetected); Candida glabrata Not Reported Not Detected (NotDetected); Candida krusei Not Reported Not Detected (NotDetected); Cneoformans/gatti Not Reported Not Detected (NotDetected); Cparapsilosis Not Reported Not Detected (NotDetected); Ctropicalis Not Reported Not Detected (NotDetected); E cloacae compx Not Reported Not Detected (NotDetected); Efaecalis Not Reported Not Detected (NotDetected); Efaecium Not Reported Not Detected (NotDetected); Enterobacterales Not Reported Not Detected (NotDetected); Escherichia coli Not Reported Not Detected (NotDetected); H influenzae Not Reported Not Detected (NotDetected); K aerogenes Not Reported Not Detected (NotDetected); Koxytoca Not Reported Not Detected (NotDetected); Kpneumoniae grp Not Reported Not Detected (NotDetected); Lmonocyt Not Reported Not Detected (NotDetected); N meningitidis Not Reported Not Detected (NotDetected); P aeruginosa Not Reported Not Detected (NotDetected); Proteus spp Not Reported Not Detected (NotDetected); Salmonella spp Not Reported Not Detected (NotDetected); Smarcescens Not Reported Not Detected (NotDetected); Staph lugdunensis Not Reported Not Detected (NotDetected); Staph spp. Not Reported Not Detected (NotDetected); Staphaureus Not Reported Not Detected (NotDetected); Staphepi Not Reported Not Detected (NotDetected); Stenmaltophilia Not Reported Not Detected (NotDetected); Strep agal(GrpB) Not Reported Not Detected (NotDetected); Strep pneum Not Reported Not Detected (NotDetected); Strep pyog (GrpA) Not Reported Not Detected (NotDetected); Strep spp Not Reported Not Detected (NotDetected)
--- NOTE | 2022-11-20 05:53 | History & Physical Report ---
Date of Service November 19, 2022 Assessment & Plan (1) Lactic acidemia: Plan: Patient presents to ED with initial lactic acid level of 2.3 and reported subjective fever. Patient had reported increasing generalized weakness associated fever and foul- smelling urine. Initial hemodynamic evaluation reveals systolic blood pressure in the 90s. Patient was given IV fluid boluses in the ED at a rate of 30 cc/kg bolus based on ideal body weight and subsequent lactic acid had improved to 1.2 in the ED. Continue IV fluid boluses with close monitoring of hemodynamics CT of the abdomen shows 11 cm fluid collection/cystic lesion that was reported to be pathologically indeterminant and suspected to be a complex abscess but a further ultrasound showed splenomegaly and The mass was described as relatively heterogeneous and isointense within the spleen parenchyma. Patient started on IV antibiotic therapy with Zosyn and vancomycin in the ED. Blood culture sent prior to IV antibiotics will need to be followed to adjust IV antibiotics based on sensitivity studies. Patient has a prior history of IVDA with infective endocarditis and hence obtain transthoracic echo to rule out vegetations. (2) Urinary retention with incomplete bladder emptying: Plan: Patient presents with urinary incontinence alternating with urinary retention symptoms. Patient is a prior history of CVA reported as well and Monique catheter placed draining clear urine in the ED. Further imaging including CT of the head shows no evidence of acute ischemia or bleed. MRI of the lumbar spine did not show any evidence of spinal cord compression or cauda equina symptoms. CT of the abdomen shows 11 cm fluid collection/cystic lesion that was reported to be pathologically indeterminant and suspected to be a complex abscess but a further ultrasound showed splenomegaly and The mass was described as relatively heterogeneous and isointense within the spleen parenchyma. (3) Hypoxia: Plan: Patient hypoxic upon initial presentation requiring oxygen supplementation in the ED. Chest x-ray does not show any infiltrates. Continue pulse oximetry monitoring with oxygen supplementation to keep sats over 90 (4) Chronic right arterial ischemic stroke, MCA (middle cerebral artery): Plan: Patient has a prior history of CVA with residual hemiparesis. CT of the head shows no acute bleed or infarction. MRI of the lumbar spine does not show any evidence of cord compression. Neurology input (5) Drug abuse in remission: Plan: patient's home medications reveal methadone but given patient's lethargy we will hold off on any opioids at this time Reassess need for opiate supplementation once mental status improves (6) Bipolar disorder: Plan: Continue home dose of sertraline 100 mg daily Admission and Anticipated Discharge Date Admission Date: November 19, 2022 History of Present Illness Chief Complaint: Patient brought into ED with complaints of worsening back pain and urinary retention Primary Care Provider: Stacey Arce MD This is a 37-year-old female with past medical history significant history of IV drug abuse presently on remission on methadone history of bipolar disorder, history of MCA ischemic stroke with facial droop and residual left-sided hemiparalysis, 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 Patient was reported to have complaints of urinary incontinence alternating with urinary retention symptoms. As per mother who provided majority of the history patient has also been having foul-smelling urine and has been having worsening back pain and has been less responsive. Patient is a very challenging historian majority history is obtained from mother and chart review. Patient was reported to have low systolic blood pressure in the 90s upon initial arrival and was given IV boluses in the ED. initial labs that showed that her lactic acid was elevated and patient was also reported to be hypoxic requiring oxygen supplementation. Patient had a Monique catheter placed in the ED. Patient reports feeling weak and also has back pain and reports that she has been laying in the bed for extended periods of time. Patient also has been evaluated about a month ago for complaints of progressive generalized weakness and had a neurology work-up at that time as well. Allergies Allergy/AdvReac Type Severity Reaction Status Date / Time sulfamethoxazole Allergy Severe Anaphylaxis Verified 11/19/22 12:56 [From Bactrim] trimethoprim [From Bactrim] Allergy Severe Anaphylaxis Verified 11/19/22 12:56 atorvastatin AdvReac Muscle Pain Verified 11/19/22 12:56 Home Medications Medication Instructions Recorded Confirmed Type acetaminophen 500 mg tablet 500 mg PO QID PRN Pain 02/05/22 11/19/22 History (Tylenol Extra Strength) Wheelchair (Manual) #1 ea 03/25/22 11/19/22 Rx magnesium oxide 400 mg (241.3 mg 600 mg PO BID #270 tabs 03/27/22 11/19/22 Rx magnesium) tablet Hospital Bed Homecare (Hospital #1 ea 04/18/22 11/19/22 Rx Bed) Wheelchair (Manual) (Manual #1 ea 04/18/22 11/19/22 Rx Wheelchair) albuterol sulfate 90 mcg/actuation 1 inh inhalation QID PRN shortness 08/09/22 11/19/22 Rx breath activated powder inhaler of breath or wheezing #1 ea polyethylene glycol 3350 17 17 g PO DAILY PRN constipation 08/09/22 11/19/22 History gram/dose oral powder (Miralax) sennosides 8.6 mg tablet 17.2 mg PO BID PRN constipation 08/09/22 11/19/22 History (Evac-U-Gen (sennosides)) metoprolol tartrate 50 mg tablet 25 mg PO BID #30 tabs 08/28/22 11/19/22 Rx potassium chloride 20 mEq 20 meq PO BID #60 tabs 09/04/22 11/19/22 Rx tablet,extended release apixaban 2.5 mg tablet 2.5 mg PO BID #60 tabs 09/05/22 11/19/22 Rx epinephrine 0.3 mg/0.3 mL 0.3 ml IM ONCE PRN Allergic 09/21/22 11/19/22 History injection, auto-injector Reaction baclofen 5 mg tablet 5 mg PO BID #90 tabs 09/27/22 11/19/22 Rx hydroxyzine HCl 25 mg tablet 25 mg PO Q6H PRN anxiety or itch 09/27/22 11/19/22 Rx #30 tabs melatonin 5 mg tablet 5 mg PO HS sleep #1 tab 09/27/22 11/19/22 Rx methadone 10 mg/mL oral concentrate 72 mg (7.2 mL) PO QAM #10 mL 09/27/22 11/19/22 Rx gabapentin 600 mg tablet 600 mg PO TID #90 tabs 09/30/22 11/19/22 Rx cetirizine 10 mg capsule (Zyrtec) 10 mg PO DAILY PRN allergy 10/08/22 11/19/22 Rx symptoms #30 caps Lift Chair #1 ea 10/09/22 11/19/22 Rx miscellaneous medical supply #1 ea 10/16/22 11/19/22 Rx furosemide 40 mg tablet 40 mg PO BID #60 tabs 10/22/22 11/19/22 Rx clonazepam 0.5 mg tablet 0.5 mg PO PM 11/19/22 11/19/22 History ketoconazole 2 % topical cream 1 applic topical BID 4 weeks #15 11/19/22 11/19/22 Rx grams nicotine 21 mg/24 hr daily 1 patch transdermal Q24H PRN at 11/19/22 11/19/22 History transdermal patch (Nicoderm CQ) request pantoprazole 40 mg tablet,delayed 40 mg PO DAILYBB 11/19/22 11/19/22 History release sertraline 100 mg tablet 200 mg PO QAM 11/19/22 11/19/22 History Past Med/Surg History Medical History Anemia Anxiety Bipolar disorder Chronic right arterial ischemic stroke, MCA (middle cerebral artery) Drug abuse and dependence Endocarditis History of embolic stroke Rt MCA PCOS (polycystic ovarian syndrome) Surgical History H/O mitral valve replacement History of section History of open heart surgery History of repair of ACL History of tubal ligation Family History Grandmother (Paternal) Breast cancer Grandfather (Maternal) Myocardial infarction Graves disease Grandfather (Paternal) Myocardial infarction Denies family history of Colon cancer Ovarian cancer Prostate cancer Social History Smoking Status: Current every day smoker Tobacco Type: Cigarettes packs per day: 1; Second Hand Exposure: No; Do You Dip or Chew Tobacco: No; Tobacco Cessation Education Requested by Patient: No Hx Alcohol Use: No Hx Substance Use: Yes Last Used Substance: Unknown Substance Use Type Other:: clean for 10 months Preferred Language: Russian Communication Ability: Effective Visual Impairment: No Limitations Hearing Ability: Normal Commercial Lease Administrator Required: No Beliefs That Will Affect Care: None marital status: Single Current Living Situation: Alone Current Living Situation Comment: boyfriend and her 3 daughters 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 Feels Safe at Home: Yes Safety Concerns: Feels Safe At This Time Childhood Exposure to Second-Hand Smoke: No Diet: regular Diet Comment: regular Dental Care, Regularly: No Physical Activity Frequency: Does not Exercise Seatbelt Use: sometimes Sunscreen Use: No Assistive Devices: Cane, Hospital Bed, Lift Chair, Mechanical Lift, Walker and Wheelchair Review of Systems Review of Systems: ROS obtained from mother and ED report Constitutional- pt reported to have fever ENT- no epistaxis Respiratory- No wheezing Cardiac- no chest pain, GI-no vomiting, - pt presents with urinary retention and urinary incontinence Physical Exam Physical Exam: Head and ENT no thyroid enlargement trachea midline Cardiovascular S1-S2 are normal no S3 Lungs bilateral air entry decreased at bases no wheezing Abdomen soft nondistended positive bowel sounds no rebound tenderness Monique placed in the ED Extremity shows trace edema Neurologically-patient is with residual left-sided hemiparesis, gait not tested due to lack of patient cooperation Skin shows no cyanosis Results & Data Results & Data Vital Signs (Past 12 Hours) Vital Signs Temp Pulse Pulse Resp BP Pulse Ox O2 Del Method 11/20/22 03:39 36.7 C 77 18 106/67 97 Room Air 11/20/22 02:00 78 11/20/22 01:36 Nasal Cannula 11/20/22 01:21 36.7 C 79 20 103/70 95 Nasal Cannula 11/20/22 00:00 76 18 92/69 L 99 Nasal Cannula 11/19/22 23:31 76 18 84/56 L 98 Nasal Cannula 11/19/22 23:16 77 16 89/56 L 98 Nasal Cannula 11/19/22 22:27 78 11/19/22 22:15 78 18 95/63 L 97 Nasal Cannula 11/19/22 22:00 77 18 92/63 L 98 Nasal Cannula 11/19/22 21:00 78 18 101/70 98 Nasal Cannula 11/19/22 20:30 78 18 97/64 L 98 Nasal Cannula 11/19/22 20:01 79 18 104/76 98 Nasal Cannula 11/19/22 18:59 79 18 98/56 L 97 Nasal Cannula 11/19/22 18:39 93/70 L 11/19/22 18:36 83 11/19/22 18:36 81 18 83/60 L 94 Nasal Cannula O2 Flow Rate 11/20/22 03:39 11/20/22 02:00 11/20/22 01:36 3 11/20/22 01:21 3 11/20/22 00:00 2 11/19/22 23:31 2 11/19/22 23:16 2 11/19/22 22:27 11/19/22 22:15 2 11/19/22 22:00 2 11/19/22 21:00 2 11/19/22 20:30 2 11/19/22 20:01 2 11/19/22 18:59 2 11/19/22 18:39 11/19/22 18:36 11/19/22 18:36 2 Laboratory Results Short CBC 11/19/22 Range/Units 14:49 WBC 8.82 (4.8-10.8) K/ul Hgb 10.8 L (12.0-16.0) g/dl Hct 36.9 L (37.0-47.0) % Plt Count 557 H (130-400) K/uL BMP 11/19/22 14:49 Sodium 136 Potassium 3.9 Chloride 100 Carbon Dioxide 28 BUN 16 Creatinine 1.06 Glucose 108 H Calcium 9.0 Liver Function 11/19/22 Range/Units 14:49 Total Bilirubin 0.3 (0.2-1.0) mg/dl Direct Bilirubin 0.0 (0-0.2) mg/dl AST 14 (13-39) U/L ALT 15 (7-52) U/L Alkaline Phosphatase 118 H (34-104) U/L Albumin 3.7 (3.4-5.0) gm/dl Urine 11/19/22 Range/Units Unknown Urine Color Yellow Urine Appearance Clear (Clear) Urine pH 5.5 (4.5-7.5) Ur Specific Sproul 1.012 (1.000-1.030) Urine Protein Negative (Negative) Urine Glucose (UA) Negative (Negative) Diagnostic Findings Abdomen/Pelvis CT 11/19/22 14:31 CT SCAN OF THE ABDOMEN AND PELVIS WITHOUT IV CONTRAST CLINICAL HISTORY: Fever. Dysuria. COMPARISON STUDY: Pelvic ultrasound dated 08/27/2012. Chest CT dated 08/02/2021. TECHNIQUE: CT scan of the abdomen and pelvis is performed from the lung bases to the proximal femora. Images are reviewed in the axial, sagittal, and coronal planes. IV contrast was not administered for this examination. A dose lowering technique was utilized adhering to the principles of ALARA. The examination is degraded by large body habitus, and by streak artifact from the body wall abutting the CT gantry. CT DOSE: 1879.99 mGy.cm FINDINGS: Lung bases: The patient is status post midline sternotomy. Question previous mitral valve surgery. The heart is normal in size and without pericardial effusion. The lung bases are clear noting dependent atelectasis. Liver: The unenhanced liver is enlarged, measuring 24 cm in length. The liver demonstrates diffusely diminished attenuation indicating steatosis. Fatty sparing is seen adjacent to the gallbladder fossa. There is no intrahepatic biliary ductal dilatation. Gallbladder: Suspect cholelithiasis. There is no CT evidence of cholecystitis. Spleen: The spleen is enlarged measuring 16.2 cm in length. There is an 11 cm fluid collection versus cystic lesion identified in the spleen. Pancreas: The unenhanced pancreas is mildly atrophic and grossly unremarkable. Adrenal glands: Unremarkable. Kidneys: The unenhanced kidneys are normal in size and without hydronephrosis. There are no renal calculi identified. There is no evidence of contour deforming renal mass lesion. Abdominal vasculature: The abdominal aorta is normal in course and caliber. Bowel: There is no bowel obstruction. The appendix is well-visualized and normal. Peritoneum: There is no intraperitoneal free air or abdominal ascites. There is a fat-containing umbilical hernia. Lymphadenopathy: None. Pelvic viscera: The bladder, uterus, and adnexa are normal as visualized. Skeletal structures: Sclerotic change is noted in the sacroiliac joints. There is mild lumbosacral spondylosis. No lytic or blastic lesions are seen. IMPRESSION: 1. Hepatomegaly and hepatic steatosis. 2. Splenomegaly. 3. There is an 11 cm fluid collection/cystic lesion identified within the spleen. This is pathologically indeterminate, but represents a significant change from a [address] A complex collection such as abscess is not excluded. Clinical correlation will be essential. An ultrasound of the spleen may provide further information. 4. Suspect cholelithiasis. 5. Additional findings as above. ACT 112: Negative or not required by law. Electronically signed by: Gaudencio Phillips M.D. 11/19/2022 4:00 PM Chest X-Ray 11/19/22 14:31 XR chest 1V portable CLINICAL HISTORY: Sepsis. COMPARISON STUDY: Chest CT August 02, 2021. Chest radiograph October 08, 2022. FINDINGS: There are median sternotomy wires. Cardiomediastinal silhouette is stable. No pneumothorax or pleural effusion. Mild interstitial prominence is noted. No definite consolidation to suggest pneumonia. IMPRESSION: Mild interstitial prominence. This may reflect pulmonary vascular congestion. No definite consolidation. ACT 112: Negative or not required by law. Electronically signed by: Justin Valle M.D. 11/19/2022 4:[address] 11/19/22 14:[address] DOSE: 547.75 mGy.cm HISTORY: weakness TECHNIQUE: Multiaxial CT images of the head were performed without the use of intravenous contrast. Automated exposure control was utilized for this study. A dose lowering technique was utilized adhering to the principles of ALARA. Comparison: Head CT 09/21/2022. Findings: The paranasal sinuses and mastoid air cells are clear. No change in the old right MCA territory infarct with ex vacuo dilatation of the right latera l ventricle. There is no mass, hematoma, or acute infarct identified. Right midline shift remains stable. Impression: 1. 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 2. No acute infarct or intracranial hemorrhage identified. ACT 112: Negative or not required by law. Electronically signed by: Mauricio Matos M.D. 11/19/2022 3:38 PM Lumbar Spine MRI 11/19/22 14:54 MRI OF THE LUMBAR SPINE WITHOUT IV CONTRAST CLINICAL HISTORY: Low back pain. Fever. Incontinence. COMPARISON STUDY: Abdominal CT was performed on the same day, 11/19/2022. TECHNIQUE: MRI of the lumbar spine was attempted. Sagittal T2-weighted sequences and axial T2-weighted sequences were obtained. The patient declined further imaging and contrast was not administered. The examination is degraded by large body habitus and motion artifact. FINDINGS: Vertebral body height and alignment are maintained throughout the lumbar spine. Tiny anterior osteophytes are seen throughout. The spinous processes appear intact. There is no evidence of spondylolysis. Chronic degenerative endplate change is noted at L5-S1. There is no marrow edema. Disc desiccation is seen throughout the lumbar spine. There is moderate loss of height at L1-L2 and L5-S1. The imaged spinal cord is normal in morphology and signal intensity. The conus medullaris terminates at the level of L1. The nerve roots of the cauda equina are normal in morphology. The central canal is clear. There is no evidence of high-grade neuroforaminal stenosis throughout the lumbar region. There is fatty atrophy of the paraspinous musculature. The paraspinous soft tissues are otherwise normal in appearance. The visualized retroperitoneal structures are grossly unremarkable but incompletely evaluated. IMPRESSION: 1. Incomplete and degraded examination. The patient declined further imaging or contrast administration. 2. No acute bony abnormality is identified. 3. There is no central canal stenosis. 4. Chronic degenerative endplate change is noted at L5-S1. Dictated: 11/19/2022 6:10 PM Transcribed: 11/19/2022 6:23 PM [id number] Electronically signed by: Gaudencio Phillips M.D. 11/19/2022 7:23 PM Abdomen Ultrasound 11/19/22 16:35 Exam(s): US ABDOMEN LIMITED EXAM: US Abdomen Limited, Right Upper Quadrant CLINICAL HISTORY: Reason for exam: splenic us ro abscess. TECHNIQUE: Real-time ultrasound of the right upper quadrant with image documentation. COMPARISON: CT 11/19/22. FINDINGS: Limited due to body habitus and patient condition. Spleen: Splenomegaly, spleen measures 18.4 cm. The lesion demonstrated on CT is poorly characterized in demonstrated on ultrasound, appears relatively heterogeneous and nearly isointense with the splenic parenchyma, measures roughly 6.1 x 8.4 x 6.8 cm. IMPRESSION: Splenomegaly, spleen measures 18.4 cm. The lesion demonstrated on CT is poorly characterized in demonstrated on ultrasound, appears relatively heterogeneous and nearly isointense with the splenic parenchyma, measures roughly 6.1 x 8.4 x 6.8 cm. Electronically signed by: Job Davis M.D. 11/19/22 19:13 PM Code Status & VTE Plan VTE Prophylaxis Plan VTE Prophylaxis will be ordered: Yes PG Care Time/CCT Total # of Minutes Spent Total Time Spent with Patient: Total time spent is greater than 50% in coordination of care (as documented) at patient's floor/unit and/or counseling patient: Coding Level of Care Code None Diagnoses Lactic acidemia E87.20 Urinary retention with incomplete bladder emptying R33.9 Hypoxia R09.02 Chronic right arterial ischemic stroke, MCA (middle cerebral artery) I69.30 Drug abuse in remission F19.11 Bipolar disorder F31.9
[2022-11-20] MEDS: PANTOprazole 40 MG TAB PO SCH (06:13)
--- NOTE | 2022-11-20 08:11 | Hospitalist Progress Note ---
Date of Service November 20, 2022 Assessment & Plan (1) Splenomegaly: Plan Ms. Salcido is a 37 y/o F with PMHX of MCA stroke with residual L-sided hemiparesis, IVDU on methadone, infective endocarditis s/p MV repair, anxiety and bipolar disorder who presented to the ED with 1-day history of L-sided flank pain and urinary incontinence. #back pain, left flank #splenomegaly #splenic mass Workup: Afebrile without leukocytosis, hypotensive on presentation, required fluid resuscitation in ED CRP 2.37, procalcitonin <0.05 Blood cx pending, urine culture pending CT abd/pelvis without contrast and abd US: splenomegaly 18.4cm. Splenic mass is 11cm, poorly see on US but heterogeneous and isointense compared to spleen. On empiric vancomycin, Pip/Tazo Impression: etiology unclear at this point, spoke to radiology, recommend f/u CT with contrast #family history thalassemia Iron studies revealed microcytic, hypochromic anemia. Brings into question if there is underlying thalassemia contributing to splenomegaly. Hgb 9.5, Hct 33.1, MCV 75.7, MCHC 28.7, MCH 21.7, iron 40, TIBC 383, ferritin 13.1, Mother has thalassemia and is s/p splenectomy, she is unsure what type #history of bacterial endocarditis BNP 49 TTE: new MV prosthesis, no new vegetation on mitral valve, severe MR no longer present, moderate pulm HTN resolved, EF 55-60% #urinary retention, acute Alternated between 1 episode of urinary incontinence and now urinary retention No dysuria, improved with Monique catheter in place UA initially clean, repeat showed dark cloudy urine with trace leukocyte esterase, negative nitrite, RBC >30, WBC >30, hyaline casts and epithelial cells Urine cx pending #hypoxia, acute 1 episode of SpO2 at 88%, she is without SOB Saturating well on nasal cannula 3.0 L No oxygen requirement at home CXR no consolidation with mild interstitial prominence #history of MCA stroke Residual left-sided hemiparesis and facial droop No new deficits Head CT noncontrast was stable with no acute infarct or hemorrhage #history of IVDU on methadone No recreational drug use in past 10 months Methadone dosage is 7.2mg Methadone clinic: [facility] in [place]. #bipolar disorder Sertraline 200mg po qam SUE: heart healthy, carb consistent, NSS DVT ppx: at-home Eliquis 2.5 mg PO BID Full code Admission and Anticipated Discharge Date Admission Date: November 19, 2022 Supervising Physician Co-Signing Physician Notes Medical Student Supervision Note: I was personally present during medical student patient encounter and independently interviewed and examined the patient and verified the rojo history and physical, reviewed labs and image studies, discussed the case with Modesto Chavez and agree with the findings and care plan. Left flank pain with abnormal UA and possible early sepsis - Follow cultures and continue IV antibiotics. Splenomegaly with area of heterogenicity - consulted surgery. has h/o abscess drainage Subjective Ms. Salcido reports L-sided back/flank pain and the inability to urinate for 1 day. At worse her back pain was 8-9/10, currently it's 4/10. Prior to her inability to urinate she had 1 episode of incontinence with foul-smelling urine. She lives at home with help from her mother. No urinary catheter use at home. She ambulates with a wheelchair and walker. No loss of sensation to the genital region. She does not have fevers or chills. During my interview she was eating her breakfast without issues. Yesterday she had a bowel movement without diarrhea. She has not used any IV recreational drugs in 10 months and she is on MAT (methadone). Review of Systems Review of Systems: All systems reviewed & are unremarkable except as noted in HPI & below Physical Exam Physical Exam: Appearance: sitting upright in bed with nasal cannula, NAD Respiratory: on 3L nasal cannula, no conversational dyspnea, decreased air entry BL, no r ales/rhonchi/wheezing Cardiovascular: normal S1, S2, no appreciable murmurs Gastrointestinal (Abdomen): normal bowel sounds, +splenomegaly, no tenderness to palpation to abdominal quadrants, no rebound/guarding Neurologic: Answering questions appropriately but did appear fatigued during our interview. Closed eyes occasionally mid-conversation Left-sided hemiparesis, head turned to the right side Results & Data Results & Data Vital Signs (Past 12 Hours) Vital Signs Temp Pulse Pulse Resp BP Pulse Ox O2 Del Method 11/20/22 08:07 36.6 C 80 20 119/72 97 Nasal Cannula 11/20/22 03:39 36.7 C 77 18 106/67 97 Room Air 11/20/22 02:00 78 11/20/22 01:36 Nasal Cannula 11/20/22 01:21 36.7 C 79 20 103/70 95 Nasal Cannula 11/20/22 00:00 76 18 92/69 L 99 Nasal Cannula 11/19/22 23:31 76 18 84/56 L 98 Nasal Cannula 11/19/22 23:16 77 16 89/56 L 98 Nasal Cannula 11/19/22 22:27 78 11/19/22 22:15 78 18 95/63 L 97 Nasal Cannula 11/19/22 22:00 77 18 92/63 L 98 Nasal Cannula 11/19/22 21:00 78 18 101/70 98 Nasal Cannula 11/19/22 20:30 78 18 97/64 L 98 Nasal Cannula O2 Flow Rate 11/20/22 08:07 3.0 11/20/22 03:39 11/20/22 02:00 11/20/22 01:36 3 11/20/22 01:21 3 11/20/22 00:00 2 11/19/22 23:31 2 11/19/22 23:16 2 11/19/22 22:27 11/19/22 22:15 2 11/19/22 22:00 2 11/19/22 21:00 2 11/19/22 20:30 2 Laboratory Results Laboratory Results WBC 5.41 K/ul (4.8-10.8) 11/20/22 08:03 RBC 4.37 M/uL (4.20-5.40) 11/20/22 08:03 Hgb 9.5 g/dl (12.0-16.0) L 11/20/22 08:03 Hct 33.1 % (37.0-47.0) L 11/20/22 08:03 MCV 75.7 fL (80.0-100.0) L 11/20/22 08:03 MCH 21.7 pg (25.0-34.0) L 11/20/22 08:03 MCHC 28.7 g/dL (32.0-36.0) L 11/20/22 08:03 RDW Std Deviation 44.2 fL (36.4-46.3) 11/20/22 08:03 RDW Coeff of Alexia 16.2 % (11.5-14.5) H 11/20/22 08:03 Plt Count 430 K/uL (130-400) H 11/20/22 08:03 MPV 9.2 fL (9.4-12.4) L 11/20/22 08:03 Immature Gran % (Auto) 0.2 % 11/20/22 08:03 Neut % (Auto) 63.9 % 11/20/22 08:03 Lymph % (Auto) 25.0 % 11/20/22 08:03 Hitchcock % (Auto) 5.5 % 11/20/22 08:03 Eos % (Auto) 4.8 % 11/20/22 08:03 Baso % (Auto) 0.6 % 11/20/22 08:03 Neut # (Auto) 3.46 K/uL (1.40-6.50) 11/20/22 08:03 Lymph # (Auto) 1.35 K/uL (1.2-3.4) 11/20/22 08:03 Hitchcock # (Auto) 0.30 K/uL (0.11-0.59) 11/20/22 08:03 Eos # (Auto) 0.26 K/uL (0-0.50) 11/20/22 08:03 Baso # (Auto) 0.03 K/uL (0-0.2) 11/20/22 08:03 Immature Gran # (Auto) 0.01 K/uL (0.01-0.20) 11/20/22 08:03 Polychromasia 1+ 11/20/22 08:03 Tear Drop Cells 1+ 11/20/22 08:03 Ovalocytes 1+ 11/20/22 08:03 PT 10.6 Seconds (9.0-12.0) 11/19/22 14:49 INR 1.0 (0.9-1.1) 11/19/22 14:49 APTT 27.1 Seconds (21.0-31.0) 11/19/22 14:49 PTT Ratio 1.0 11/19/22 14:49 Sodium 136 mmol/L (136-145) 11/19/22 14:49 Potassium 3.9 mmol/L (3.5-5.1) 11/19/22 14:49 Chloride 100 mmol/L (98-107) 11/19/22 14:49 Carbon Dioxide 28 mmol/L (21-32) 11/19/22 14:49 Anion Gap 8 (3-11) 11/19/22 14:49 BUN 16 mg/dl (6-23) 11/19/22 14:49 Creatinine 1.06 mg/dl (0.6-1.2) 11/19/22 14:49 Est Cr Clr Drug Dosing Not Reportable 11/19/22 14:49 Est GFR ( Amer) 78.2 ml/min 11/19/22 14:49 Est GFR (Non-Af Amer) 67.5 ml/min 11/19/22 14:49 BUN/Creatinine Ratio 15.1 (10-20) 11/19/22 14:49 Glucose 108 mg/dl (70-99(Fasting)) H 11/19/22 14:49 Lactate 0.9 mmol/L (0.4-2.0) 11/20/22 08:03 Calcium 9.0 mg/dl (8.6-10.3) 11/19/22 14:49 Magnesium 2.0 mg/dl (1.7-2.4) 11/19/22 14:49 Iron 40 mcg/dl (35-150) 11/20/22 08:03 TIBC 383 mcg/dl (250-450) 11/20/22 08:03 Unsaturated IBC 343 mcg/dl (155-355) 11/20/22 08:03 Transferrin % Sat 10 % (15-50) L 11/20/22 08:03 Total Bilirubin 0.3 mg/dl (0.2-1.0) 11/19/22 14:49 Direct Bilirubin 0.0 mg/dl (0-0.2) 11/19/22 14:49 AST 14 U/L (13-39) 11/19/22 14:49 ALT 15 U/L (7-52) 11/19/22 14:49 Alkaline Phosphatase 118 U/L (34-104) H 11/19/22 14:49 Troponin I High Sens 2.4 pg/ml (0-14) 11/19/22 14:49 C-Reactive Protein 2.37 mg/dl (0-0.5) H 11/20/22 08:03 Total Protein 9.0 gm/dl (6.0-8.3) H 11/19/22 14:49 Albumin 3.7 gm/dl (3.4-5.0) 11/19/22 14:49 Vitamin B12 193 pg/ml (180-914) 11/20/22 08:15 Folate 16.37 ng/ml (>5.38) 11/20/22 08:15 Procalcitonin < 0.05 ng/ml (0-0.5) 11/20/22 08:15 Urine Color Yellow 11/19/22 Unknown Urine Appearance Clear (Clear) 11/19/22 Unknown Urine pH 5.5 (4.5-7.5) 11/19/22 Unknown Ur Specific Start 1.012 (1.000-1.030) 11/19/22 Unknown Urine Protein Negative (Negative) 11/19/22 Unknown Urine Glucose (UA) Negative (Negative) 11/19/22 Unknown Urine Ketones Negative (Negative) 11/19/22 Unknown Urine Blood Negative (Negative) 11/19/22 Unknown Urine Nitrite Negative (Negative) 11/19/22 Unknown Urine Bilirubin Negative (Negative) 11/19/22 Unknown Urine Urobilinogen Negative (Negative) 11/19/22 Unknown Ur Leukocyte Esterase Negative (Negative) 11/19/22 Unknown SARS-CoV-2 (PCR) NEGATIVE (Negative) 11/19/22 20:15 Influenza Type A (PCR) Negative (Neg) 11/19/22 20:15 Influenza Type B (PCR) Negative (Neg) 11/19/22 20:15 RSV (RT-PCR) Negative (Neg) 11/19/22 20:15 Bld Cult ID Panel PCR PCR Panel Negative (NotDetected) 11/19/22 15:07 Impressions Abdomen/Pelvis CT 11/19/22 14:31 CT SCAN OF THE ABDOMEN AND PELVIS WITHOUT IV CONTRAST CLINICAL HISTORY: Fever. Dysuria. COMPARISON STUDY: Pelvic ultrasound dated 08/27/2012. Chest CT dated 08/02/2021. TECHNIQUE: CT scan of the abdomen and pelvis is performed from the lung bases to the proximal femora. Images are reviewed in the axial, sagittal, and coronal planes. IV contrast was not administered for this examination. A dose lowering technique was utilized adhering to the principles of ALARA. The examination is degraded by large body habitus, and by streak artifact from the body wall abutting the CT gantry. CT DOSE: 1879.99 mGy.cm FINDINGS: Lung bases: The patient is status post midline sternotomy. Question previous mitral valve surgery. The heart is normal in size and without pericardial effusion. The lung bases are clear noting dependent atelectasis. Liver: The unenhanced liver is enlarged, measuring 24 cm in length. The liver demonstrates diffusely diminished attenuation indicating steatosis. Fatty sparing is seen adjacent to the gallbladder fossa. There is no intrahepatic biliary ductal dilatation. Gallbladder: Suspect cholelithiasis. There is no CT evidence of cholecystitis. Spleen: The spleen is enlarged measuring 16.2 cm in length. There is an 11 cm fluid collection versus cystic lesion identified in the spleen. Pancreas: The unenhanced pancreas is mildly atrophic and grossly unremarkable. Adrenal glands: Unremarkable. Kidneys: The unenhanced kidneys are normal in size and without hydronephrosis. There are no renal calculi identified. There is no evidence of contour deforming renal mass lesion. Abdominal vasculature: The abdominal aorta is normal in course and caliber. Bowel: There is no bowel obstruction. The appendix is well-visualized and normal. Peritoneum: There is no intraperitoneal free air or abdominal ascites. There is a fat-containing umbilical hernia. Lymphadenopathy: None. Pelvic viscera: The bladder, uterus, and adnexa are normal as visualized. Skeletal structures: Sclerotic change is noted in the sacroiliac joints. There is mild lumbosacral spondylosis. No lytic or blastic lesions are seen. IMPRESSION: 1. Hepatomegaly and hepatic steatosis. 2. Splenomegaly. 3. There is an 11 cm fluid collection/cystic lesion identified within the spleen. This is pathologically indeterminate, but represents a significant change from a [address] A complex collection such as abscess is not excluded. Clinical correlation will be essential. An ultrasound of the spleen may provide further information. 4. Suspect cholelithiasis. 5. Additional findings as above. ACT 112: Negative or not required by law. Electronically signed by: Gaudencio Phillips M.D. 11/19/2022 4:00 PM Chest X-Ray 11/19/22 14:31 XR chest 1V portable CLINICAL HISTORY: Sepsis. COMPARISON STUDY: Chest CT August 02, 2021. Chest radiograph October 08, 2022. FINDINGS: There are median sternotomy wires. Cardiomediastinal silhouette is stable. No pneumothorax or pleural effusion. Mild interstitial prominence is noted. No definite consolidation to suggest pneumonia. IMPRESSION: Mild interstitial prominence. This may reflect pulmonary vascular congestion. No definite consolidation. ACT 112: Negative or not required by law. Electronically signed by: Justin Valle M.D. 11/19/2022 4:[address] 11/19/22 14:[address] DOSE: 547.75 mGy.cm HISTORY: weakness TECHNIQUE: Multiaxial CT images of the head were performed without the use of intravenous contrast. Automated exposure control was utilized for this study. A dose lowering technique was utilized adhering to the principles of ALARA. Comparison: Head CT 09/21/2022. Findings: The paranasal sinuses and mastoid air cells are clear. No change in the old right MCA territory infarct with ex vacuo dilatation of the right lateral ventricle. There is no mass, hematoma, or acute infarct identified. Right midline shift remains stable. Impression: 1. 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 2. No acute infarct or intracranial hemorrhage identified. ACT 112: Negative or not required by law. Electronically signed by: Mauricio Matos M.D. 11/19/2022 3:38 PM Lumbar Spine MRI 11/19/22 14:54 MRI OF THE LUMBAR SPINE WITHOUT IV CONTRAST CLINICAL HISTORY: Low back pain. Fever. Incontinence. COMPARISON STUDY: Abdominal CT was performed on the same day, 11/19/2022. TECHNIQUE: MRI of the lumbar spine was attempted. Sagittal T2-weighted sequences and axial T2-weighted sequences were obtained. The patient declined further imaging and contrast was not administered. The examination is degraded by large body habitus and motion artifact. FINDINGS: Vertebral body height and alignment are maintained throughout the lumbar spine. Tiny anterior osteophytes are seen throughout. The spinous processes appear intact. There is no evidence of spondylolysis. Chronic degenerative endplate change is noted at L5-S1. There is no marrow edema. Disc desiccation is seen throughout the lumbar spine. There is moderate loss of h eight at L1-L2 and L5-S1. The imaged spinal cord is normal in morphology and signal intensity. The conus medullaris terminates at the level of L1. The nerve roots of the cauda equina are normal in morphology. The central canal is clear. There is no evidence of high-grade neuroforaminal stenosis throughout the lumbar region. There is fatty atrophy of the paraspinous musculature. The paraspinous soft tissues are otherwise normal in appearance. The visualized retroperitoneal structures are grossly unremarkable but incompletely evaluated. IMPRESSION: 1. Incomplete and degraded examination. The patient declined further imaging or contrast administration. 2. No acute bony abnormality is identified. 3. There is no central canal stenosis. 4. Chronic degenerative endplate change is noted at L5-S1. Dictated: 11/19/2022 6:10 PM Transcribed: 11/19/2022 6:23 PM [id number] Electronically signed by: Gaudencio Phillips M.D. 11/19/2022 7:23 PM Abdomen Ultrasound 11/19/22 16:35 Exam(s): US ABDOMEN LIMITED EXAM: US Abdomen Limited, Right Upper Quadrant CLINICAL HISTORY: Reason for exam: splenic us ro abscess. TECHNIQUE: Real-time ultrasound of the right upper quadrant with image documentation. COMPARISON: CT 11/19/22. FINDINGS: Limited due to body habitus and patient condition. Spleen: Splenomegaly, spleen measures 18.4 cm. The lesion demonstrated on CT is poorly characterized in demonstrated on ultrasound, appears relatively heterogeneous and nearly isointense with the splenic parenchyma, measures roughly 6.1 x 8.4 x 6.8 cm. IMPRESSION: Splenomegaly, spleen measures 18.4 cm. The lesion demonstrated on CT is poorly characterized in demonstrated on ultrasound, appears relatively heterogeneous and nearly isointense with the splenic parenchyma, measures roughly 6.1 x 8.4 x 6.8 cm. Electronically signed by: Job Davis M.D. 11/19/22 19:13 PM Medications Administered Current Inpatient Medications Acetaminophen (Acetaminophen 500 Mg Tab) 500 mg PO QID PRN PRN Reason: Pain Stop: 12/20/22 01:08 Albuterol (Albuterol Hfa 8 Gm Inhaler) 1 puffs INH QID PRN PRN Reason: shortness of breath or wheezing Stop: 12/20/22 01:23 Apixaban (Apixaban 2.5 Mg Tab) 2.5 mg PO BID [facility] Stop: 12/20/22 08:59 Last Admin: 11/20/22 08:32 Dose: 2.5 mg Gabapentin (Gabapentin 600 Mg Tab) 600 mg PO TID [facility] Stop: 12/20/22 08:59 Last Admin: 11/20/22 08:30 Dose: 600 mg Vancomycin HCl 1,250 mg/ (Sodium Chloride) 275 mls @ 200 mls/hr IV Q12H [facility]; Protocol Stop: 11/22/22 08:59 Last Admin: 11/20/22 08:30 Dose: 200 mls/hr Melatonin (Melatonin 3 Mg Tab) 6 mg PO HSZ PRN PRN Reason: Sleep Stop: 12/20/22 01:21 Last Admin: 11/20/22 01:56 Dose: 6 mg Metoprolol Tartrate (Metoprolol Tartrate 25 Mg Tab) 25 mg PO BID [facility] Stop: 12/20/22 08:59 Last Admin: 11/20/22 08:31 Dose: 25 mg Miscellaneous (Remove Nicoderm Patch) 1 each N/A DAILY@0859 [facility] Stop: 12/20/22 08:58 Last Admin: 11/20/22 08:48 Dose: Not Given Miscellaneous Information (Vancomycin Consult Active) 1 each N/A UD PRN PRN Reason: Consult Stop: 12/19/22 19:41 Nicotine (Nicotine 21 Mg/24 Hr Tdsy) 21 mg TD Q24H PRN PRN Reason: at request Stop: 12/20/22 01:08 Pantoprazole Sodium (Pantoprazole 40 Mg Tab) 40 mg PO DAILYBB [facility] Stop: 12/20/22 06:29 Last Admin: 11/20/22 06:13 Dose: 40 mg Polyethylene Glycol (Polyethylene (Miralax) 17 Gm Pack) 17 gm PO DAILY PRN PRN Reason: constipation Stop: 12/20/22 01:08 Sertraline HCl (Sertraline Hcl 100 Mg Tablet) 200 mg PO QAM [facility] Stop: 12/20/22 08:59 Last Admin: 11/20/22 08:31 Dose: 200 mg
[2022-11-20] MEDS: VANCOMYCIN HCL 1,250 MG in SODIUM CHLORIDE 0.9% 250 ML IV SCH ×2 (08:30→21:08)
[2022-11-20] MEDS: GABAPENTIN 600 MG TAB PO SCH ×3 (08:30→20:55)
[2022-11-20] MEDS: SERTRALINE HCL 100 MG TABLET PO SCH (08:31)
[2022-11-20] MEDS: APIXABAN 2.5 MG TAB PO SCH ×2 (08:32→20:54)
[2022-11-20 08:58] LABS: Hematocrit (blood only) 33.1 % (37.0-47.0); Hemoglobin 9.5 g/dl (12.0-16.0); Mean Corpuscular Hemoglobin 21.7 pg (25.0-34.0); Mean Corpuscular Hgb Conc 28.7 g/dL (32.0-36.0); Mean Corpuscular Volume 75.7 fL (80.0-100.0); Mean Platelet Volume 9.2 fL (9.4-12.4); Platelet Count 430 K/uL (130-400); RDW Coefficient of Variation 16.2 % (11.5-14.5); RDW Standard Deviation 44.2 fL (36.4-46.3); Red Blood Count 4.37 M/uL (4.20-5.40); White Blood Count 5.41 K/ul (4.8-10.8)
[2022-11-20 08:59] LABS: Basophils # (auto) 0.03 K/uL (0-0.2); Basophils % (auto) 0.6 %; Eosinophils # (auto) 0.26 K/uL (0-0.50); Eosinophils % (auto) 4.8 %; Immature Granulocytes # (auto) 0.01 K/uL (0.01-0.20); Immature Granulocytes % (auto) 0.2 %; Lymphocytes # (auto) 1.35 K/uL (1.2-3.4); Monocytes % (auto) 5.5 %; Neutrophils # (auto) 3.46 K/uL (1.40-6.50); Neutrophils % (auto) 63.9 %; Ovalocytes 1+; Polychromasia 1+; Tear Drop Cells 1+
[2022-11-20] MEDS ORDERED: METOPROLOL TARTRATE 25 MG TAB PO SCH (09:00)
[2022-11-20] MEDS ORDERED: ASPIRIN 81 MG ECTAB PO SCH (09:00)
[2022-11-20 09:06] LABS: C Reactive Protein 2.37 mg/dl (0-0.5)
[2022-11-20 11:12] LABS: Creatinine Clr Calc Pharmacy 116.4 ml/min; Est GFR (African American) 77.3 ml/min; Est GFR (Non-African American) 66.7 ml/min
[2022-11-20] MEDS: SODIUM CHLORIDE 0.9% 1000ML 1,000 ML IV SCH (11:20)
[2022-11-20 11:33] LABS: Ferritin 13.1 ng/ml (8-388)
[2022-11-20] MEDS ORDERED: METHADONE ORAL SOLN 2 MG/ML PO SCH ×2 (12:30→12:45)
--- NOTE | 2022-11-20 13:38 | XCELERA ---
[id number]
[2022-11-20] MEDS: PATIENT'S OWN CONTROLLED MED 1 PO SCH (14:00)
--- NOTE | 2022-11-20 14:08 | Pharmacy Report ---
Pharmacy PK ABX Note - Date of Service November 20, 2022 - Assessment and Plan Assessment 37 year old F receiving empiric vancomycin for treatment of febrile illness in context of prior infective endocarditis. Patient with complicated PMH including IV drug abuse, history of MCA ischemic stroke, history of endocarditis w/ history of mitral valve replacement. TTE does not reveal vegetation. Blood cultures x 2 ordered/pending. No overt leukocytosis, negative procalcitonin, afebrile over past 24 hours. Day # 2 of antimicrobial therapy. Plan Vancomycin * Loading dose: 2750 mg IV x 1 * Maintenance dose: 1250 mg IV every 12 hours * Regimen is predicted to achieve target AUC/SHEREE of 400-600 mg/L.hr * Will obtain random level once at steady-state if patient remains on vancomycin Pharmacy will continue to follow and will adjust dose/frequency as necessary. Thank you. Pharmacy has transitioned to AUC monitoring for vancomycin. AUC/SHEREE is the preferred PK/PD target and is associated with decreased risk of nephrotoxicity compared to traditional trough targets.
[2022-11-20 15:54] LABS: Appearance Urine Cloudy (Clear); Bacteria Urine Automated Negative (Negative); Bilirubin Urine Negative (Negative); Blood Urine 3+ (Negative); Color Urine Dark Yellow; Epithelial Cell Urine Auto >30 /lpf (0-5); Glucose Urine UA Negative (Negative); Ketones Urine Trace (Negative); Leukocyte Esterase Urine Trace (Negative); Nitrite Urine Negative (Negative); Protein Urine 1+ (Negative); RBC Urine Automated >30 /hpf (0-4); Specific Gravity Urine 1.035 (1.000-1.030); Urobilinogen Urine Negative (Negative); WBC Urine Automated >30 /hpf (0-5)
[2022-11-20] MEDS ORDERED: OPTIRAY 320 500ml IV ONE (16:08)
[2022-11-20 16:26] LABS: Amphetamines+Metham, Urine Neg (Neg); Barbiturates, Urine Neg (Neg); Benzodiazepine, Urine Pos (Neg); Cocaine, Urine Neg (Neg); MDMA (Ecstacy), Urine Neg (Neg); Methadone, Urine Pos (Neg); Opiate, Urine Neg (Neg); Phencyclidine, Urine Neg (Neg)
--- NOTE | 2022-11-20 16:33 | CT Scan Report ---
ABDOMEN AND PELVIS CT WITH IV CONTRAST CT DOSE: 2091.85 mGy.cm HISTORY: splenic mass, difficult to characterize on CTAP/US TECHNIQUE: Multiaxial CT images of the abdomen and pelvis were performed following the use of intrave nous contrast. A dose lowering technique was utilized adhering to the principles of ALARA. COMPARISON STUDY: Abdomen and pelvis CT 11/19/2022. Abdominal ultrasound 11/19/2022. FINDINGS: There is again noted 11 x 9 cm hypodense splenic lesion. And compared to the noncontrast st udy this may demonstrate diffuse subtle enhancement. However, this could be artifactual. Mild hepatic steatosis. The main portal vein and splenic vein appear patent. Normal gallbladder and adrenal gland s. No hydronephrosis. Normal pancreas. Subcentimeter retroperitoneal lymph nodes remain stable. The s pleen is enlarged measuring 18 cm in length. This remains unchanged. No pelvic free fluid. The bladde r is decompressed by Monique catheter. The uterus and adnexa are unremarkable. No bowel wall thickening or obstruction. Normal appendix. Mild dependent changes seen at the lung bases. No pneumoperitoneum. No pneumatosis. No suspicious lytic or blastic osseous lesions. The liver remains mildly enlarged. A mitral valve ring is noted. IMPRESSION: 1. Redemonstration of the 11 x 9 cm hypodense splenic lesion. This appears to demonstrate mild diffus e enhancement. However, this could be artifactual. Therefore, this lesion remains indeterminate. A de dicated abdominal MRI should be considered for definitive diagnosis. 2. Hepatomegaly and hepatic steatosis again noted. 3. Stable splenomegaly. ACT 112: Negative or not required by law. Electronically signed by: Mauricio Matos M.D. 11/20/2022 4:31 PM
[2022-11-20] MEDS ORDERED: PIPERACILLIN/TAZOBACTAM 4.5 GM in DEXTROSE 5% 100 ML IV ONE (16:45)
[2022-11-20] MEDS ORDERED: IRON SUCROSE 200 MG in 0.9 % SODIUM CHLORIDE 100 ML IV ONE (16:45)
--- NOTE | 2022-11-20 16:46 | Communication Note ---
Date of Service: November 20, 2022 Went up to see and evaluate patient earlier this afternoon. Also spoke w/ Mom. BPs continue on the softer side, but peripheral perfusion is good, other VSS. Held metoprolol. She c/o ongoing LEFT flank pain, more anterior around the midaxillary line, with appreciable splenomegaly. She shared with me that her mother had an idiopathic splenic rupture. Mom later informed me that both she and her have thalassemia, though type unclear at this time. Nursing also informed me that her urine has been dark, pus-like. About 200cc out over the last 8 hours. Bladder scan negative for retention. Repeat UA ordered, demonstrating notable >30 WBCs, >30 RBCs, 5-10 hyaline casts in the setting of trace LE and mild proteinuria. Supplemental Update re/ A&P UTI / Pyuria / Hematuria -- Notable hematuria and pyuria on urine microscopy despite receiving nearly 4000cc since arrival. Bladder scan negative. Send for culture. -- CT-A/P with contrast above will give better visualization of the kidneys compared to prior, special attention on left near splenic mass -- Continue ABX for now Hypotension -- Noted since arrival. Cause for this is still somewhat unclear, though reassuringly her perfusion is good on exam. Her metoprolol has now been discontinued while admitted and is likely contributing to some degree. Suspect there is also a good degree of hypovolemia contributing too. Otherwise: she does have a concerning UA and symptoms for UTI for which ABX are ongoing, though work-up otherwise really doesn't seem to form a septic-like picture at this time; will await BCX. Her TTE was normal. She has no clinical signs of a PE and she is on chronic AC. -- Continue mIVF, can bolus with 500cc PRN Non-Transfusion Dependent Thalassemia, Iron Deficiency Anemia -- Per Mom, patient holds formal diagnosis. Type/subtype unknown at this time. -- Iron panel and CBC consistent with concurrent iron-deficiency pattern; Venofer 200mg IV x 1 ordered, will require recheck in ~6 weeks as an outpatient and consider more Splenomegaly (Mom's history of idiopathic splenic rupture noted) -- Discussed US and nCT-A/P with radiology, will pursue CT-A/P with contrast to further characterize splenomegaly and lesion initially seen on CT-A/P. -- On further questioning - Has h/o spleen abscess drainage. Likely during admission at [facility]. Will discuss further with general surgery and follow -- Will likely require activity precautions moving forward / after discharge -- Continue ABX until situation clarifies
[2022-11-20] MEDS ORDERED: SODIUM CHLORIDE 0.9% 1000ML 500 ML IV ONE (18:11)
[2022-11-20] MEDS ORDERED: LORazepam 2 MG/1 ML VIAL IV PRN (18:20)
--- NOTE | 2022-11-20 20:43 | Surgery Consultation ---
Date of Consultation November 20, 2022 Assessment & Plan (1) Splenomegaly: assessment: pt is a 37 year-old female who was admitted to hospital for 2 weeks history left back pain and urine retention with low bp 90, pt's BP is better after iv fluid. CT scan and U/S- splenomegaly, spleen fluid collection 11cm, pt had spleen drainage at other hospital last year. Plan, based on pt's H/P, labs and CT scans, U/S study, no spleen rupture signs now, no emergent surgery indication now, recommend to transfer to [facility] for further diagnosis and treatment, D/W benefits, risks and alternatives of the transfer, pt understood, pt wants to transfer to [facility]. D/W hospitalist. 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 pt's mother brought pt to Er yesterday for 2 weeks history left back pain with weakness and urine retention, foul- smelling urine. with low bp 90, with iv fluid, pt's bp above 100mmhg. pt denies fever, no dizziness, no diarrhea, pt had mitral valve replacement at [facility] early this year. pt has family history for splenomegaly. now pt said she feels much better, less left back pain, no abdominal pain, HGb stable 10.3 to 9.5, WBC 5.4. pt is on Eliquis. pt had CT scan ( 11/19/22, and today)IMPRESSION: 1. Redemonstration of the 11 x 9 cm hypodense splenic lesion. This appears to demonstrate mild diffuse enhancement. However, this could be artifactual. Therefore, this lesion remains indeterminate. A dedicated abdominal MRI should be considered for definitive diagnosis. 2. Hepatomegaly and hepatic steatosis again noted. 3. Stable splenomegaly. Allergies Allergy/AdvReac Type Severity Reaction Status Date / Time sulfamethoxazole Allergy Severe Anaphylaxis Verified 11/19/22 12:56 [From Bactrim] trimethoprim [From Bactrim] Allergy Severe Anaphylaxis Verified 11/19/22 12:56 atorvastatin AdvReac Muscle Pain Verified 11/19/22 12:56 Home Medications Medication Instructions Recorded Confirmed Type acetaminophen 500 mg tablet 500 mg PO QID PRN Pain 02/05/22 11/19/22 History (Tylenol Extra Strength) Wheelchair (Manual) #1 ea 03/25/22 11/19/22 Rx magnesium oxide 400 mg (241.3 mg 600 mg PO BID #270 tabs 03/27/22 11/19/22 Rx magnesium) tablet Hospital Bed Homecare (Hospital #1 ea 04/18/22 11/19/22 Rx Bed) Wheelchair (Manual) (Manual #1 ea 04/18/22 11/19/22 Rx Wheelchair) albuterol sulfate 90 mcg/actuation 1 inh inhalation QID PRN shortness 08/09/22 11/19/22 Rx breath activated powder inhaler of breath or wheezing #1 ea polyethylene glycol 3350 17 17 g PO DAILY PRN constipation 08/09/22 11/19/22 History gram/dose oral powder (Miralax) sennosides 8.6 mg tablet 17.2 mg PO BID PRN constipation 08/09/22 11/19/22 History (Evac-U-Gen (sennosides)) metoprolol tartrate 50 mg tablet 25 mg PO BID #30 tabs 08/28/22 11/19/22 Rx potassium chloride 20 mEq 20 meq PO BID #60 tabs 09/04/22 11/19/22 Rx tablet,extended release apixaban 2.5 mg tablet 2.5 mg PO BID #60 tabs 09/05/22 11/19/22 Rx epinephrine 0.3 mg/0.3 mL 0.3 ml IM ONCE PRN Allergic 09/21/22 11/19/22 History injection, auto-injector Reaction baclofen 5 mg tablet 5 mg PO BID #90 tabs 09/27/22 11/19/22 Rx hydroxyzine HCl 25 mg tablet 25 mg PO Q6H PRN anxiety or itch 09/27/22 11/19/22 Rx #30 tabs melatonin 5 mg tablet 5 mg PO HS sleep #1 tab 09/27/22 11/19/22 Rx methadone 10 mg/mL oral concentrate 72 mg (7.2 mL) PO QAM #10 mL 09/27/22 11/19/22 Rx gabapentin 600 mg tablet 600 mg PO TID #90 tabs 09/30/22 11/19/22 Rx cetirizine 10 mg capsule (Zyrtec) 10 mg PO DAILY PRN allergy 10/08/22 11/19/22 Rx symptoms #30 caps Lift Chair #1 ea 10/09/22 11/19/22 Rx miscellaneous medical supply #1 ea 10/16/22 11/19/22 Rx furosemide 40 mg tablet 40 mg PO BID #60 tabs 10/22/22 11/19/22 Rx clonazepam 0.5 mg tablet 0.5 mg PO PM 11/19/22 11/19/22 History ketoconazole 2 % topical cream 1 applic topical BID 4 weeks #15 11/19/22 11/19/22 Rx grams nicotine 21 mg/24 hr daily 1 patch transdermal Q24H PRN at 11/19/22 11/19/22 History transdermal patch (Nicoderm CQ) request pantoprazole 40 mg tablet,delayed 40 mg PO DAILYBB 11/19/22 11/19/22 History release sertraline 100 mg tablet 200 mg PO QAM 11/19/22 11/19/22 History Patient History Medical History Anemia Anxiety Bipolar disorder Chronic right arterial ischemic stroke, MCA (middle cerebral artery) Drug abuse and dependence Endocarditis History of embolic stroke Rt MCA PCOS (polycystic ovarian syndrome) Surgical History H/O mitral valve replacement History of section History of open heart surgery History of repair of ACL History of tubal ligation Family History (Updated 11/20/22 @ 16:28 by Modesto Chavez) Grandmother (Paternal) Breast cancer Grandfather (Maternal) Myocardial infarction Graves disease Grandfather (Paternal) Myocardial infarction Other Thalassemia Denies family history of Colon cancer Ovarian cancer Prostate cancer Social History Smoking Status: Current every day smoker Tobacco Type: Cigarettes packs per day: 1; Second Hand Exposure: No; Do You Dip or Chew Tobacco: No; Tobacco Cessation Education Requested by Patient: No Hx Alcohol Use: No Hx Substance Use: Yes Last Used Substance: Unknown Substance Use Type Other:: clean for 10 months Preferred Language: Montenegrin Communication Ability: Effective Visual Impairment: No Limitations Hearing Ability: Normal Director Sales Support Required: No Beliefs That Will Affect Care: None marital status: Single Current Living Situation: Alone Current Living Situation Comment: boyfriend and her 3 daughters 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 Feels Safe at Home: Yes Safety Concerns: Feels Safe At This Time Childhood Exposure to Second-Hand Smoke: No Diet: regular Diet Comment: regular Dental Care, Regularly: No Physical Activity Frequency: Does not Exercise Seatbelt Use: sometimes Sunscreen Use: No Assistive Devices: Cane, Hospital Bed, Lift Chair, Mechanical Lift, Walker and Wheelchair Review of Systems Constitutional: as per Subjective / HPI no distress Eyes: as per Subjective / HPI Respiratory: as per Subjective / HPI Cardiovascular: Additional Comments: MVR Gastrointestinal: as per Subjective / HPI Genitourinary: as per Subjective / HPI Neurologic: CVA, left paralyzed Psychiatric: major depression, bipolar disorder Endocrine: as per Subjective / HPI Hematologic / Lymphatic: splenomegaly Physical Exam Constitutional: WD/WN, vitals as above no distress Eyes: PERRL, conjunctivae normal, anicteric sclerae Neck: trachea midline, no thyromegaly Respiratory: normal respiratory effort, lungs clear to auscultation Cardiovascular: RRR, no murmur, no edema Gastrointestinal (Abdomen): soft, mild tenderness at LUQ, no rebound pain, no distend, BS +. Musculoskeletal: left paralyzed Neurologic: patellar DTR's 2+ bilat, sensation intact Psychiatric: A+Ox3, euthymic affect Results & Data Vital Signs (Past 12 Hours) Vital Signs Temp Pulse Pulse Resp BP Pulse Ox Pulse Ox 11/20/22 19:43 36.9 C 76 18 109/71 97 11/20/22 14:15 80 11/20/22 14:49 36.3 C L 75 18 96/54 L 96 11/20/22 14:31 97 11/20/22 10:53 36.8 C 76 18 94/55 L 96 11/20/22 08:49 O2 Del Method O2 Del Method O2 Flow Rate 11/20/22 19:43 Nasal Cannula 2 11/20/22 14:15 11/20/22 14:49 Room Air 11/20/22 14:31 Room Air 11/20/22 10:53 Nasal Cannula 3.0 11/20/22 08:49 Nasal Cannula 3 Laboratory Results Abnormal lab results 11/20/22 11/20/22 11/20/22 Range/Units 08:03 08:03 14:43 Hgb 9.5 L (12.0-16.0) g/dl Hct 33.1 L (37.0-47.0) % MCV 75.7 L (80.0-100.0) fL MCH 21.7 L (25.0-34.0) pg MCHC 28.7 L (32.0-36.0) g/dL RDW Coeff of Alexia 16.2 H (11.5-14.5) % Plt Count 430 H (130-400) K/uL MPV 9.2 L (9.4-12.4) fL Transferrin % Sat 10 L (15-50) % C-Reactive Protein 2.37 H (0-0.5) mg/dl Urine Appearance (Clear) Ur Specific [place] (1.000-1.030) Urine Protein (Negative) Urine Ketones (Negative) Urine Blood (Negative) Ur Leukocyte Esterase (Negative) Urine WBC (Auto) (0-5) /hpf Urine RBC (Auto) (0-4) /hpf U Hyaline Cast (Auto) (0-5) /lpf U Epithel Cells (Auto) (0-5) /lpf Ur Methadone, Qual Pos H (Neg) U Benzodiazepines Scrn Pos H (Neg) 11/20/22 Range/Units 14:43 Hgb (12.0-16.0) g/dl Hct (37.0-47.0) % MCV (80.0-100.0) fL MCH (25.0-34.0) pg MCHC (32.0-36.0) g/dL RDW Coeff of Alexia (11.5-14.5) % Plt Count (130-400) K/uL MPV (9.4-12.4) fL Transferrin % Sat (15-50) % C-Reactive Protein (0-0.5) mg/dl Urine Appearance Cloudy A (Clear) Ur Specific [place] 1.035 H (1.000-1.030) Urine Protein 1+ H (Negative) Urine Ketones Trace H (Negative) Urine Blood 3+ H (Negative) Ur Leukocyte Esterase Trace H (Negative) Urine WBC (Auto) >30 H (0-5) /hpf Urine RBC (Auto) >30 H (0-4) /hpf U Hyaline Cast (Auto) 5-10 H (0-5) /lpf U Epithel Cells (Auto) >30 H (0-5) /lpf Ur Methadone, Qual (Neg) U Benzodiazepines Scrn (Neg) Diagnostic Findings ABDOMEN AND PELVIS CT WITH IV CONTRAST CT DOSE: 2091.85 mGy.cm HISTORY: splenic mass, difficult to characterize on CTAP/US TECHNIQUE: Multiaxial CT images of the abdomen and pelvis were performed fo llowing the use of intravenous contrast. A dose lowering technique was utilized adhering to the principles of ALARA. COMPARISON STUDY: Abdomen and pelvis CT 11/19/2022. Abdominal ultrasound 11/19/2022. FINDINGS: There is again noted 11 x 9 cm hypodense splenic lesion. And compared to the noncontrast study this may demonstrate diffuse subtle enhancement. However, this could be artifactual. Mild hepatic steatosis. The main portal vein and splenic vein appear patent. Normal gallbladder and adrenal glands. No hydronephrosis. Normal pancreas. Subcentimeter retroperitoneal lymph nodes remain stable. The spleen is enlarged measuring 18 cm in length. This remains unchanged. No pelvic free fluid. The bladder is decompressed by Monique catheter. The uterus and adnexa are unremarkable. No bowel wall thickening or obstruction. Normal appendix. Mild dependent changes seen at the lung bases. No pneumoperitoneum. No pneumatosis. No suspicious lytic or blastic osseous lesions. The liver remains mildly enlarged. A mitral valve ring is noted. IMPRESSION: 1. Redemonstration of the 11 x 9 cm hypodense splenic lesion. This appears to demonstrate mild diffuse enhancement. However, this could be artifactual. Therefore, this lesion remains indeterminate. A dedicated abdominal MRI should be considered for definitive diagnosis. 2. Hepatomegaly and hepatic steatosis again noted. 3. Stable splenomegaly. Exam(s): US ABDOMEN LIMITED EXAM: US Abdomen Limited, Right Upper Quadrant CLINICAL HISTORY: Reason for exam: splenic us ro abscess. TECHNIQUE: Real-time ultrasound of the right upper quadrant with image documentation. COMPARISON: CT 11/19/22. FINDINGS: Limited due to body habitus and patient condition. Spleen: Splenomegaly, spleen measures 18.4 cm. The lesion demonstrated on CT is poorly characterized in demonstrated on ultrasound, appears relatively heterogeneous and nearly isointense with the splenic parenchyma, measures roughly 6.1 x 8.4 x 6.8 cm. IMPRESSION: Splenomegaly, spleen measures 18.4 cm. The lesion demonstrated on CT is poorly characterized in demonstrated on ultrasound, appears relatively heterogeneous and nearly isointense with the splenic parenchyma, measures roughly 6.1 x 8.[address] SCAN OF THE ABDOMEN AND PELVIS WITHOUT IV CONTRAST CLINICAL HISTORY: Fever. Dysuria. COMPARISON STUDY: Pelvic ultrasound dated 08/27/2012. Chest CT dated 08/02/2021. TECHNIQUE: CT scan of the abdomen and pelvis is performed from the lung bases to the proximal femora. Images are reviewed in the axial, sagittal, and coronal planes. IV contrast was not administered for this examination. A dose lowering technique was utilized adhering to the principles of ALARA. The examination is degraded by large body habitus, and by streak artifact from the body wall abutting the CT gantry. CT DOSE: 1879.99 mGy.cm FINDINGS: Lung bases: The patient is status post midline sternotomy. Question previous mitral valve surgery. The heart is normal in size and without pericardial effusion. The lung bases are clear noting dependent atelectasis. Liver: The unenhanced liver is enlarged, measuring 24 cm in length. The liver demonstrates diffusely diminished attenuation indicating steatosis. Fatty sparing is seen adjacent to the gallbladder fossa. There is no intrahepatic biliary ductal dilatation. Gallbladder: Suspect cholelithiasis. There is no CT evidence of cholecystitis. Spleen: The spleen is enlarged measuring 16.2 cm in length. There is an 11 cm fluid collection versus cystic lesion identified in the spleen. Pancreas: The unenhanced pancreas is mildly atrophic and grossly unremarkable. Adrenal glands: Unremarkable. Kidneys: The unenhanced kidneys are normal in size and without hydronephrosis. There are no renal calculi identified. There is no evidence of contour deforming renal mass lesion. Abdominal vasculature: The abdominal aorta is normal in course and caliber. Bowel: There is no bowel obstruction. The appendix is well-visualized and normal. Peritoneum: There is no intraperitoneal free air or abdominal ascites. There is a fat-containing umbilical hernia. Lymphadenopathy: None. Pelvic viscera: The bladder, uterus, and adnexa are normal as visualized. Skeletal structures: Sclerotic change is noted in the sacroiliac joints. There is mild lumbosacral spondylosis. No lytic or blastic lesions are seen. IMPRESSION: 1. Hepatomegaly and hepatic steatosis. 2. Splenomegaly. 3. There is an 11 cm fluid collection/cystic lesion identified within the spleen. This is pathologically indeterminate, but represents a significant change from a [address] A complex collection such as abscess is not excluded. Clinical correlation will be essential. An ultrasound of the spleen may provide further information. 4. Suspect cholelithiasis. 5. Additional findings as above.
[2022-11-20] MEDS: BACLOFEN 10 MG TAB PO SCH (20:55)
[2022-11-20] MEDS: clonazePAM 0.5 MG TAB PO SCH (21:29)
[2022-11-20] MEDS: PIPERACILLIN/TAZOBACTAM 4.5 GM in DEXTROSE 5% 100 ML IV SCH (23:00)
--- NOTE | 2022-11-20 23:02 | Communication Note ---
Date of Service: November 20, 2022 After my discussion with consulted general surgeon Dr. Mcclain, the decision was made to pursue transfer to tertiary care facility for potential IR percutaneous drainage of suspected splenic abscess. The pt did express a desire to be transferred to [facility] where she had previously undergone splenic abscess drainage and mitral valve repair. I contacted [facility] to facilitate transfer and pt was accepted for transfer under the care of accepting physician Dr. Sin Ray MD. Bed availability pending at this time, transfer paperwork otherwise complete.
[2022-11-21] MEDS: SODIUM CHLORIDE 0.9% 1000ML 1,000 ML IV SCH ×3 (01:00→20:25)
[2022-11-21] MEDS: PANTOprazole 40 MG TAB PO SCH (05:38)
[2022-11-21] MEDS: PIPERACILLIN/TAZOBACTAM 4.5 GM in DEXTROSE 5% 100 ML IV SCH ×3 (05:38→22:30)
--- NOTE | 2022-11-21 07:05 | Discharge Summary ---
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 Patient was reported to have complaints of urinary incontinence alternating with urinary retention symptoms. As per mother who provided majority of the history patient has also been having foul-smelling urine and has been having worsening back pain and has been less responsive. Patient is a very challenging historian majority history is obtained from mother and chart review. Patient was reported to have low systolic blood pressure in the 90s upon initial arrival and was gi sena IV boluses in the ED. initial labs that showed that her lactic acid was elevated and patient was also reported to be hypoxic requiring oxygen supplementation. Patient had a Monique catheter placed in the ED. Patient reports feeling weak and also has back pain and reports that she has been laying in the bed for extended periods of time. Patient also has been evaluated about a month ago for comp laints of progressive generalized weakness and had a neurology work-up at that time as well. Admission Exam Per Admitting Provider Head and ENT no thyroid enlargement trachea midline Cardiovascular S1-S2 are normal no S3 Lungs bilateral air entry decreased at bases no wheezing Abdomen soft nondistended positive bowel sounds no rebound tenderness Monique placed in the ED Extremity shows trace edema Neurologically-patient is with residual left-sided hemiparesis, gait not tested due to lack of patient cooperation Skin shows no cyanosis Principal Diagnosis suspected splenic abscess Discharge Exam as per HPI Discharge Data Allergies Allergy/AdvReac Type Severity Reaction Status Date / Time sulfamethoxazole Allergy Severe Anaphylaxis Verified 11/19/22 12:56 [From Bactrim] trimethoprim [From Bactrim] Allergy Severe Anaphylaxis Verified 11/19/22 12:56 atorvastatin AdvReac Muscle Pain Verified 11/19/22 12:56 Consultations 11/19/22 19:35 ED Decision to Admit Stat 11/20/22 18:11 Consult General Surgery Routine -- Excerpted from Dr. Mcclain on 11/20/22 "assessment: pt is a 37 year-old female who was admitted to hospital for 2 weeks history left back pain and urine retention with low bp 90, pt's BP is better after iv fluid. CT scan and U/S- splenomegaly, spleen fluid collection 11cm, pt had spleen drainage at other hospital last year. Plan, based on pt's H/P, labs and CT scans, U/S study, no spleen rupture signs now, no emergent surgery indication now, recommend to transfer to higher level care [facility] for further diagnosis and treatment, D/W benefits, risks and alternatives of the transfer, pt understood, pt wants to transfer to [facility]. D/W hospitalist." Ordered Studies 11/19/22 14:31 CT abd pelvis wo con Stat "CT SCAN OF THE ABDOMEN AND PELVIS WITHOUT IV CONTRAST CLINICAL HISTORY: Fever. Dysuria. COMPARISON STUDY: Pelvic ultrasound dated 08/27/2012. Chest CT dated 08/02/2021. TECHNIQUE: CT scan of the abdomen and pelvis is performed from the lung bases to the proximal femora. Images are reviewed in the axial, sagittal, and coronal planes. IV contrast was not administered for this examination. A dose lowering technique was utilized adhering to the principles of ALARA. The examination is degraded by large body habitus, and by streak artifact from the body wall abutting the CT gantry. CT DOSE: 1879.99 mGy.cm FINDINGS: Lung bases: The patient is status post midline sternotomy. Question previous mitral valve surgery. The heart is normal in size and without pericardial effusion. The lung bases are clear noting dependent atelectasis. Liver: The unenhanced liver is enlarged, measuring 24 cm in length. The liver demonstrates diffusely diminished attenuation indicating steatosis. Fatty sparing is seen adjacent to the gallbladder fossa. There is no intrahepatic biliary ductal dilatation. Gallbladder: Suspect cholelithiasis. There is no CT evidence of cholecystitis. Spleen: The spleen is enlarged measuring 16.2 cm in length. There is an 11 cm fluid collection versus cystic lesion identified in the spleen. Pancreas: The unenhanced pancreas is mildly atrophic and grossly unremarkable. Adrenal glands: Unremarkable. Kidneys: The unenhanced kidneys are normal in size and without hydronephrosis. There are no renal calculi identified. There is no evidence of contour deforming renal mass lesion. Abdominal vasculature: The abdominal aorta is normal in course and caliber. Bowel: There is no bowel obstruction. The appendix is well-visualized and normal. Peritoneum: There is no intraperitoneal free air or abdominal ascites. There is a fat-containing umbilical hernia. Lymphadenopathy: None. Pelvic viscera: The bladder, uterus, and adnexa are normal as visualized. Skeletal structures: Sclerotic change is noted in the sacroiliac joints. There is mild lumbosacral spondylosis. No lytic or blastic lesions are seen. IMPRESSION: 1. Hepatomegaly and hepatic steatosis. 2. Splenomegaly. 3. There is an 11 cm fluid collection/cystic lesion identified within the spleen. This is pathologically indeterminate, but represents a significant change from a [address] A complex collection such as abscess is not excluded. Clinical correlation will be essential. An ultrasound of the spleen may provide further information. 4. Suspect cholelithiasis." 11/19/22 14:32 CT head/brain wo con Stat "HEAD CT NONCONTRAST CT DOSE: 547.75 mGy.cm HISTORY: weakness TECHNIQUE: Multiaxial CT images of the head were performed without the use of intravenous contrast. Automated exposure control was utilized for this study. A dose lowering technique was utilized adhering to the principles of ALARA. Comparison: Head CT 09/21/2022. Findings: The paranasal sinuses and mastoid air cells are clear. No change in the old right MCA territory infarct with ex vacuo dilatation of the right lateral ventricle. There is no mass, hematoma, or acute infarct identified. Right midline shift remains stable. Impression: 1. 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 2. No acute infarct or intracranial hemorrhage identified." 11/19/22 14:54 MR lumbar spine wo con Stat "MRI OF THE LUMBAR SPINE WITHOUT IV CONTRAST CLINICAL HISTORY: Low back pain. Fever. Incontinence. COMPARISON STUDY: Abdominal CT was performed on the same day, 11/19/2022. TECHNIQUE: MRI of the lumbar spine was attempted. Sagittal T2-weighted sequences and axial T2-weighted sequences were obtained. The patient declined further imaging and contrast was not administered. The examination is degraded by large body habitus and motion artifact. FINDINGS: Vertebral body height and alignment are maintained throughout the lumbar spine. Tiny anterior osteophytes are seen throughout. The spinous processes appear intact. There is no evidence of spondylolysis. Chronic degenerative endplate change is noted at L5-S1. There is no marrow edema. Disc desiccation is seen throughout the lumbar spine. There is moderate loss of height at L1-L2 and L5-S1. The imaged spinal cord is normal in morphology and signal intensity. The conus medullaris terminates at the level of L1. The nerve roots of the cauda equina are normal in morphology. The central canal is clear. There is no evidence of high-grade neuroforaminal stenosis throughout the lumbar region. There is fatty atrophy of the paraspinous musculature. The paraspinous soft tissues are otherwise normal in appearance. The visualized retroperitoneal structures are grossly unremarkable but incompletely evaluated. IMPRESSION: 1. Incomplete and degraded examination. The patient declined further imaging or contrast administration. 2. No acute bony abnormality is identified. 3. There is no central canal stenosis. 4. Chronic degenerative endplate change is noted at L5-S1." 11/19/22 16:35 US abdomen limited Stat "Exam(s): US ABDOMEN LIMITED EXAM: US Abdomen Limited, Right Upper Quadrant CLINICAL HISTORY: Reason for exam: splenic us ro abscess. TECHNIQUE: Real-time ultrasound of the right upper quadrant with image documentation. COMPARISON: CT 11/19/22. FINDINGS: Limited due to body habitus and patient condition. Spleen: Splenomegaly, spleen measures 18.4 cm. The lesion demonstrated on CT is poorly characterized in demonstrated on ultrasound, appears relatively heterogeneous and nearly isointense with the splenic parenchyma, measures roughly 6.1 x 8.4 x 6.8 cm. IMPRESSION: Splenomegaly, spleen measures 18.4 cm. The lesion demonstrated on CT is poorly characterized in demonstrated on ultrasound, appears relatively heterogeneous and nearly isointense with the splenic parenchyma, measures roughly 6.1 x 8.4 x 6.8 cm." 11/20/22 14:47 CT Abd and Pelvis [CT abd pelvis IV con only] Routine "ABDOMEN AND PELVIS CT WITH IV CONTRAST CT DOSE: 2091.85 mGy.cm HISTORY: splenic mass, difficult to characterize on CTAP/US TECHNIQUE: Multiaxial CT images of the abdomen and pelvis were performed following the use of intravenous contrast. A dose lowering technique was utilized adhering to the principles of ALARA. COMPARISON STUDY: Abdomen and pelvis CT 11/19/2022. Abdominal ultrasound 11/19/2022. FINDINGS: There is again noted 11 x 9 cm hypodense splenic lesion. And compared to the noncontrast study this may demonstrate diffuse subtle enhancement. However, this could be artifactual. Mild hepatic steatosis. The main portal vein and splenic vein appear patent. Normal gallbladder and adrenal glands. No hydronephrosis. Normal pancreas. Subcentimeter retroperitoneal lymph nodes remain stable. The spleen is enlarged measuring 18 cm in length. This remains unchanged. No pelvic free fluid. The bladder is decompressed by Monique catheter. The uterus and adnexa are unremarkable. No bowel wall thickening or obstruction. Normal appendix. Mild dependent changes seen at the lung bases. No pneumoperit oneum. No pneumatosis. No suspicious lytic or blastic osseous lesions. The liver remains mildly enlarged. A mitral valve ring is noted. IMPRESSION: 1. Redemonstration of the 11 x 9 cm hypodense splenic lesion. This appears to demonstrate mild diffuse enhancement. However, this could be artifactual. Therefore, this lesion remains indeterminate. A dedicated abdominal MRI should be considered for definitive diagnosis. 2. Hepatomegaly and hepatic steatosis again noted. 3. Stable splenomegaly. " 11/20/22 18:17 MRI Abdomen [MR abdomen wo/w con] Routine Hospital Course (1) Splenic abscess: Ms. Salcido is a 37 y/o F with PMHX of prior splenic abscess requiring >2L drainage at [facility] in 11/2021, thalassemia, MCA stroke with residual L-sided hemiparesis, OUD w/ prior IVDU on methadone, infective endocarditis s/p MV repair, anxiety, bipolar disorder who presented to the ED with 1 week of fevers at home (Tm 103), progressive weakness, L flank pain, and urinary retention, subsequently found to have an 11x9 splenic collection most concerning for an abscess, as well as abnormal UA without CT-A/P urological findings. She requires transfer for further monitoring in the setting of her splenic findings, and possible drainage of her abscess vs. splenectomy. #Splenic Mass, Concerning for Recurrent Abscess -- s/p drainage at [facility] in 11/2021 per family - Presented with 1 week of fevers at home (Tm 103), L flank pain, progressive weakness, as wel as urinary findings - Workup: Patient with noted history of thalassemia (+strong family history) Has h/o bacterial endocarditis. H/O splenic abscess requiring drainage in 11/2021 BCX demonstrating NGx24h as of AM of 11/21 Hypotensive on arrival with concurrent lactic acidosis requiring >3L fluid resuscitation to maintain MAPs >65 Interestingly, afebrile w/o leukocytosis, admitting PCT <0.05, CRP 2.37 CT-A/P and US demonstratinx9cm mildly, but diffusely enhancing splenic mass - Evaluated by Surgery: Concern for abscess, recommending transfer to tertiary facility for drainage evaluation vs. splenectomy - Maintained on Zosyn/Vanc while here #Hypotension - Presented with systolic BPs in 80s, no concurrent tachycardia though on metoprolol - In context of fevers at home, weakness, abdominal pain, ?oliguria/anuria vs. retention - Unclear etiology. Suspect component of hypovolemia and possibly infectious contribution (see above), though laboratory work-up is surprisingly bland for this - Otherwise: TTE without failure, not hypervolemic. No obvious findings to suggest PE and on Eliquis b.i.d. CT-H without acute findings, no new neurologic deficits - Received >30cc/kg while here in resuscitation, continued mIVF alongside ABX - Hold metoprolol #Non-transfusion Dependent Thalassemia, Concurrent Iron Deficiency Anemia - Strong family history of thalassemia, patient has been formally diagnosed/worked-up - Iron studies here demonstrating microcytic anemia with concurrent iron deficiency - Given Venofer 200mg x 1 while here prior to transfer #History of Bacterial Endocarditis, Mitral Valve Repair - In context of former IVDU, now in remission - No evidence of hypervolemia while here. BNP 49. Repeat TTE (11/20) with stable MV prosthesis, resolved pHTN, LVEF 55-60% - Continue Eliquis 2.5mg b.i.d. - Continue metoprolol #Reported Urinary Retention vs. Oliguria/Anuria - Reported several days' worth of poor UOP, difficult to elucidate retention vs. oliguria/anuria -- says she was able to void some, but was not producing much urine - Monique catheter placed on arrival: UA demonstrating dark cloudy urine with trace leukocyte esterase, negative nitrite, RBC >30, WBC >30, hyaline casts and epithelial cells --> initial UA was "clean", however, appearance of urine since admission (and reports of urine at home) raise question if there may have been a lab error; this UCX is negative but considered unreliable given this concern - Repeat UCX pending as of AM 11/21 - Possible this may be contributing to her admitting symptoms -- however, given normal CT-A/P with and without contrast without any pyelo or cystitis-like findings, the severity of her reported symptoms seem to fit better with suspecte d splenic abscess, as above - Limited spinal imaging (lumbar MRI -- could not tolerate full scan) without acute findings to suggest neurogenic etiology - ABX ongoing, as above #Desaturation / Transient Hypoxia - Intermittent episodes of brief desaturations noted while here - Mild prominence of vasculature on CXR; no overt hypervolemia. No e/o PNA. On Eliquis. - Monitor. Consider outpatient CARINA work-up. #History of MCA CVA - Residual left-sided hemiparesis and facial droop -- no changes on admission - Head CT noncontrast was stable with no acute infarct or hemorrhage # OUD with History of IVDU on Methadone - Has remained abstinent of substance use for >10 months -- commended her while here - Home methadone dosing is 72mg/qAM (confirmed with [employer]) - Continue #Bipolar disorder, Anxiety - Sertraline 200mg po qam - Klonopin 0.5mg qHS continued Code: FULL CODE (2) Splenomegaly: (3) S/P mitral valve replacement with bioprosthetic valve: (4) Urinary retention with incomplete bladder emptying: (5) Opioid use disorder, severe, in sustained remission: (6) Chronic right arterial ischemic stroke, MCA (middle cerebral artery): (7) Left-sided weakness: (8) H/O mitral valve replacement: (9) Drug abuse in remission: Total Time Total Time Spent Total Time Spent (In Minutes): 35 Discharge Plan Discharge Items Patient Disposition: Transfer Acute Care Hospital Reason For Visit: URINARY RETENTION Discharge Diagnosis: suspected splenic abscess Activity: Per Instructions section Non-emergency contact: Primary Care Provider Call non-emergency contact if: your symptoms worsen, your pain is worsening, your pain is unusual for you and your temperature is above 101 Follow-up/Referrals: Stacey Arce MD [Primary Care Provider] - Diet: Regular Addtl Attending Provider Instructions: Ms. Salcido is a 37 y/o F with PMHX of prior splenic abscess requiring >2L drainage at [facility] in 11/2021, thalassemia, MCA stroke with residual L-sided hemiparesis, OUD w/ prior IVDU on methadone, infective endocarditis s/p MV repair, anxiety, bipolar disorder who presented to the ED with 1 week of fevers at home (Tm 103), progressive weakness, L flank pain, and urinary retention, subsequently found to have an 11x9 splenic collection most concerning for an abscess, as well as abnormal UA without CT-A/P urological findings. She requires transfer for further monitoring in the setting of her splenic findings, and possible drainage of her abscess vs. splenectomy. #Splenic Mass, Concerning for Recurrent Abscess -- s/p drainage at [facility] in 11/2021 per family - Presented with 1 week of fevers at home (Tm 103), L flank pain, progressive weakness, as wel as urinary findings - Workup: Patient with noted history of thalassemia (+strong family history) H/O splenic abscess requiring drainage in 11/2021 BCX demonstrating NGx24h as of AM of 11/21 Hypotensive on arrival with concurrent lactic acidosis requiring >3L fluid resuscitation to maintain MAPs >65 Interestingly, afebrile w/o leukocytosis, admitting PCT <0.05, CRP 2.37 CT-A/P and US demonstratinx9cm mildly, but diffusely enhancing splenic mass - Evaluated by Surgery: Concern for abscess, recommending transfer to tertiary facility for drainage evaluation vs. splenectomy - Maintained on Zosyn/Vanc while here #Hypotension - Presented with systolic BPs in 80s, no concurrent tachycardia though on metoprolol - In context of fevers at home, weakness, abdominal pain, ?oliguria/anuria vs. retention - Unclear etiology. Suspect component of hypovolemia and possibly infectious contribution (see above), though laboratory work-up is surprisingly bland for this - Otherwise: TTE without failure, not hypervolemic. No obvious findings to suggest PE and on Eliquis b.i.d. CT-H without acute findings, no new neurologic deficits - Received >30cc/kg while here in resuscitation, continued mIVF alongside ABX - Hold metoprolol #Non-transfusion Dependent Thalassemia, Concurrent Iron Deficiency Anemia - Strong family history of thalassemia, patient has been formally diagnosed/worked-up - Iron studies here demonstrating microcytic anemia with concurrent iron deficiency - Given Venofer 200mg x 1 while here prior to transfer #History of Bacterial Endocarditis, Mitral Valve Repair - In context of former IVDU, now in remission - No evidence of hypervolemia while here. BNP 49. Repeat TTE (05/31) with stable MV prosthesis, resolved pHTN, LVEF 55-60% - Continue Eliquis 2.5mg b.i.d. - Continue metoprolol #Reported Urinary Retention vs. Oliguria/Anuria - Reported several days' worth of poor UOP, difficult to elucidate retention vs. oliguria/anuria -- says she was able to void some, but was not producing much urine - Monique catheter placed on arrival: UA demonstrating dark cloudy urine with trace leukocyte esterase, negative nitrite, RBC >30, WBC >30, hyaline casts and epithelial cells --> initial UA was "clean", however, appearance of urine since admission (and reports of urine at home) raise question if there may have been a lab error; this UCX is negative but considered unreliable given this concern - Repeat UCX pending as of AM 11/21 - Possible this may be contributing to her admitting symptoms -- however, given normal CT-A/P with and without contrast without any pyelo or cystitis-like findings, the severity of her reported symptoms seem to fit better with suspected splenic abscess, as above - Limited spinal imaging (lumbar MRI -- could not tolerate full scan) without acute findings to suggest neurogenic etiology - ABX ongoing, as above #Desaturation / Transient Hypoxia - Intermittent episodes of brief desaturations noted while here - Mild prominence of vasculature on CXR; no overt hypervolemia. No e/o PNA. On Eliquis. - Monitor. Consider outpatient CARINA work-up. #History of MCA CVA - Residual left-sided hemiparesis and facial droop -- no changes on admission - Head CT noncontrast was stable with no acute infarct or hemorrhage # OUD with History of IVDU on Methadone - Has remained abstinent of substance use for >10 months -- commended her while here - Home methadone dosing is 72mg/qAM (confirmed with [employer]) - Continue #Bipolar disorder, Anxiety - Sertraline 200mg po qam - Klonopin 0.5mg qHS continued Code: FULL CODE Pending Studies at Discharge: No (unable to perform abdominal MRI (liver combo protocol) prior to d/c) Stand-Alone Forms: My [facility] Skilled Items Patient informed of condition?: Yes DNR: No Discharge Level of Care: Other Communicable Disease: No Discharge Prognosis: Stable Lines: Peripheral IV Urinary Catheter: Yes Medications and DC Order Prescriptions: Continued acetaminophen [Tylenol Extra Strength] 500 mg tablet 500 mg PO QID PRN (Reason: Pain) Rx Instructions: [facility] 02/04 magnesium oxide 400 mg (241.3 mg magnesium) tablet 600 mg PO BID Qty: 270 3RF Rx Instructions: [facility] 02/04 albuterol sulfate 90 mcg/actuation aerosol powdr breath activated 1 inh inhalation QID PRN (Reason: shortness of breath or wheezing) Qty: 1 0RF polyethylene glycol 3350 [Miralax] 17 gram/dose powder 17 g PO DAILY PRN (Reason: constipation) sennosides [Evac-U-Gen (sennosides)] 8.6 mg tablet 17.2 mg PO BID PRN (Reason: constipation) Rx Instructions: [facility] 02/04 metoprolol tartrate 50 mg tablet 25 mg PO BID Qty: 30 2RF apixaban 2.5 mg tablet 2.5 mg PO BID Qty: 60 1RF gabapentin 600 mg tablet 600 mg PO TID Qty: 90 5RF ([facility] [place]) Lift Chair Misc See Rx Instructions .Route Qty: 1 0RF Rx Instructions: As directed (DME) miscellaneous medical supply Misc See Rx Instructions .ROUTE .MEDSUPPLY Qty: 1 0RF Rx Instructions: Left wrist splint Dx: lt spastic hemiparesis furosemide 40 mg tablet 40 mg PO BID Qty: 60 2RF potassium chloride 20 mEq tablet extended release 20 meq PO BID Qty: 60 3RF Zyrtec 10 mg capsule 10 mg PO DAILY PRN (Reason: allergy symptoms) Qty: 30 0RF (DME) Wheelchair (Manual) Device See Rx Instructions .Route Qty: 1 0RF Rx Instructions: As [id number] Z86.73 (DME) Hospital Bed Misc See Rx Instructions .Route Qty: 1 0RF Rx Instructions: As directed G81.9, I63.411 (DME) Manual Wheelchair Device See Rx Instructions .Route Qty: 1 0RF Rx Instructions: [address] drive WC please G81.9 sertraline 100 mg tablet 200 mg PO QAM Rx Instructions: [facility] 02/04 ketoconazole 2 % cream 1 applic topical BID 28 Days Qty: 15 0RF epinephrine 0.3 mg/0.3 mL auto-injector 0.3 ml IM ONCE PRN (Reason: Allergic Reaction) hydroxyzine HCl 25 mg Tablet 25 mg PO Q6H PRN (Reason: anxiety or itch) Qty: 30 0RF melatonin 5 mg tablet 5 mg PO HS Qty: 1 0RF baclofen 5 mg tablet 5 mg PO BID Qty: 90 2RF methadone 10 mg/mL concentrate 72 mg PO QAM Qty: 10 0RF Rx Instructions: BEING MANAGED BY [facility] IN [place] clonazepam 0.5 mg tablet 0.5 mg PO PM pantoprazole 40 mg tablet,delayed release (DR/EC) 40 mg PO DAILYBB nicotine [Nicoderm CQ] 21 mg/24 hr patch 24 hour 1 patch transdermal Q24H PRN (Reason: at request) Admission Data Admit Date/Time: 11/19/22 23:42 Attending Provider: Chika Jensen Admit Provider: Franck Diamond Primary Care Provider: Stacey Arce Other Providers: Franck Diamond ; Kostas Patel ; Sagar Bryant Supervising Physician Co-Signing Physician Notes Resident Physician Supervision Note: I independently interviewed and examined the patient and verified the rojo history and physical, reviewed labs and image studies and agree with resident findings and care plan. Resident Activity Tracking Resident Involvement: Resident Care Provided Care Provided: Adult Hospital Medicine
[2022-11-21 07:40] LABS: Basophils # (auto) 0.03 K/uL (0-0.2); Basophils % (auto) 0.6 %; Eosinophils # (auto) 0.26 K/uL (0-0.50); Eosinophils % (auto) 5.2 %; Hematocrit (blood only) 30.5 % (37.0-47.0); Hemoglobin 8.9 g/dl (12.0-16.0); Immature Granulocytes # (auto) 0.01 K/uL (0.01-0.20); Immature Granulocytes % (auto) 0.2 %; Lymphocytes # (auto) 1.77 K/uL (1.2-3.4); Lymphocytes % (auto) 35.3 %; Mean Corpuscular Hemoglobin 21.5 pg (25.0-34.0); Mean Corpuscular Hgb Conc 29.2 g/dL (32.0-36.0); Mean Corpuscular Volume 73.8 fL (80.0-100.0); Mean Platelet Volume 9.6 fL (9.4-12.4); Monocytes # (auto) 0.32 K/uL (0.11-0.59); Monocytes % (auto) 6.4 %; Neutrophils # (auto) 2.63 K/uL (1.40-6.50); Neutrophils % (auto) 52.3 %; Platelet Count 410 K/uL (130-400); RDW Coefficient of Variation 15.9 % (11.5-14.5); RDW Standard Deviation 42.7 fL (36.4-46.3); Red Blood Count 4.13 M/uL (4.20-5.40); White Blood Count 5.02 K/ul (4.8-10.8)
[2022-11-21 08:06] LABS: Albumin Globulin Ratio 0.7 (0.9-2); Albumin Level 3.1 gm/dl (3.4-5.0); BUN Creatinine Ratio 14.4 (10-20); Bilirubin,Total 0.2 mg/dl (0.2-1.0); C Reactive Protein 2.4 mg/dl (0-0.5); Calcium 8.6 mg/dl (8.6-10.3); Creatinine Clr Calc Pharmacy 128.4 ml/min; Est GFR (African American) 87.1 ml/min; Est GFR (Non-African American) 75.1 ml/min; Globulin 4.2 gm/dl (2.5-4.0); Potassium 3.7 mmol/L (3.5-5.1); Total Protein 7.3 gm/dl (6.0-8.3)
[2022-11-21] MEDS ORDERED: METHADONE ORAL SOLN 2 MG/ML PO SCH (09:00)
[2022-11-21] MEDS: APIXABAN 2.5 MG TAB PO SCH ×2 (09:17→20:26)
[2022-11-21] MEDS: BACLOFEN 10 MG TAB PO SCH ×2 (09:17→20:26)
[2022-11-21] MEDS: SERTRALINE HCL 100 MG TABLET PO SCH (09:17)
[2022-11-21] MEDS: GABAPENTIN 600 MG TAB PO SCH ×3 (09:17→20:26)
[2022-11-21] MEDS: PATIENT'S OWN CONTROLLED MED 1 PO SCH (09:33)
[2022-11-21] MEDS: METHADONE ORAL SOLN 2 MG/ML PO SCH (09:33)
[2022-11-21] MEDS: VANCOMYCIN HCL 1,250 MG in SODIUM CHLORIDE 0.9% 250 ML IV SCH ×2 (10:20→20:26)
--- NOTE | 2022-11-21 18:15 | Hospitalist Progress Note ---
Date of Service November 21, 2022 Assessment & Plan (1) Splenic abscess: Plan: Ms. Salcido is a 37 y/o F with PMHX of prior splenic abscess requiring >2L drainage at [facility] in 11/2021, thalassemia, MCA stroke with residual L-sided hemiparesis, OUD w/ prior IVDU on methadone, infective endocarditis s/p MV repair, anxiety, bipolar disorder who presented to the ED with 1 week of fevers at home (Tm 103), progressive weakness, L flank pain, and urinary retention, subsequently found to have an 11x9 splenic collection most concerning for an abscess, as well as abnormal UA without CT-A/P urological findings. She requires transfer for further monitoring in the setting of her splenic findings, and possible drainage of her abscess vs. splenectomy. #Splenic Mass, Concerning for Recurrent Abscess -- s/p drainage at [facility] in 11/2021 per family - Presented with 1 week of fevers at home (Tm 103), L flank pain, progressive weakness, as wel as urinary findings - Workup: Patient with noted history of thalassemia (+strong family history) Has h/o bacterial endocarditis. H/O splenic abscess requiring drainage in 11/2021 BCX demonstrating NGx24h as of AM of 11/21 Hypotensive on arrival with concurrent lactic acidosis requiring >3L fluid resuscitation to maintain MAPs >65 Interestingly, afebrile w/o leukocytosis, admitting PCT <0.05, CRP 2.37 CT-A/P and US demonstratinx9cm mildly, but diffusely enhancing splenic mass - Evaluated by Surgery: Concern for abscess, recommending transfer to tertiary facility for drainage evaluation vs. splenectomy - Maintained on Zosyn/Vanc while here #Hypotension - Presented with systolic BPs in 80s, no concurrent tachycardia though on metoprolol - In context of fevers at home, weakness, abdominal pain, ?oliguria/anuria vs. retention - Unclear etiology. Suspect component of hypovolemia and possibly infectious contribution (see above), though laboratory work-up is surprisingly bland for this - Otherwise: TTE without failure, not hypervolemic. No obvious findings to suggest PE and on Eliquis b.i.d. CT-H without acute findings, no new neurologic deficits - Received >30cc/kg while here in resuscitation, continued mIVF alongside ABX - Hold metoprolol #Non-transfusion Dependent Thalassemia, Concurrent Iron Deficiency Anemia - Strong family history of thalassemia, patient has been formally diagnosed/worked-up - Iron studies here demonstrating microcytic anemia with concurrent iron deficiency - Given Venofer 200mg x 1 while here prior to transfer #History of Bacterial Endocarditis, Mitral Valve Repair - In context of former IVDU, now in remission - No evidence of hypervolemia while here. BNP 49. Repeat TTE (11/20) with stable MV prosthesis, resolved pHTN, LVEF 55-60% - Continue Eliquis 2.5mg b.i.d. - Continue metoprolol #Reported Urinary Retention vs. Oliguria/Anuria - Reported several days' worth of poor UOP, difficult to elucidate retention vs. oliguria/anuria -- says she was able to void some, but was not producing much urine - Monique catheter placed on arrival: UA demonstrating dark cloudy urine with trace leukocyte esterase, negative nitrite, RBC >30, WBC >30, hyaline casts and epithelial cells --> initial UA was "clean", however, appearance of urine since admission (and reports of urine at home) raise question if there may have been a lab error; this UCX is negative but considered unreliable given this concern - Repeat UCX pending as of AM 11/21 - Possible this may be contributing to her admitting symptoms -- however, given normal CT-A/P with and without contrast without any pyelo or cystitis-like findings, the severity of her reported symptoms seem to fit better with suspected splenic abscess, as above - Limited spinal imaging (lumbar MRI -- could not tolerate full scan) without acute findings to suggest neurogenic etiology - ABX ongoing, as above #Desaturation / Transient Hypoxia - Intermittent episodes of brief desaturations noted while here - Mild prominence of vasculature on CXR; no overt hypervolemia. No e/o PNA. On Eliquis. - Monitor. Consider outpatient CARINA work-up. #History of MCA CVA - Residual left-sided hemiparesis and facial droop -- no changes on admission - Head CT noncontrast was stable with no acute infarct or hemorrhage # OUD with History of IVDU on Methadone - Has remained abstinent of substance use for >10 months -- commended her while here - Home methadone dosing is 72mg/qAM (confirmed with [employer]) - Continue #Bipolar disorder, Anxiety - Sertraline 200mg po qam - Klonopin 0.5mg qHS continued Code: FULL CODE (2) Splenomegaly: (3) S/P mitral valve replacement with bioprosthetic valve: (4) Urinary retention with incomplete bladder emptying: (5) Opioid use disorder, severe, in sustained remission: (6) Chronic right arterial ischemic stroke, MCA (middle cerebral artery): (7) Left-sided weakness: (8) H/O mitral valve replacement: (9) Drug abuse in remission: Admission and Anticipated Discharge Date Admission Date: November 19, 2022 Supervising Physician Co-Signing Physician Notes Resident Physician Supervision Note: I independently interviewed and examined the patient and verified the rojo history and physical, reviewed labs and image studies and agree with resident findings and care plan. Subjective 11/21: Patient seen and examined at bedside. No acute events overnight. Patient states she is feeling "fine" today, has been eating and drinking without issue. Denies chest pain, shortness of breath, abdominal pain or urinary symptoms. Denies dizziness or lightheadedness. Notes an occasional dry cough. Patient is in agreement with plan to transfer to [facility]. Review of Systems Review of Systems: As per above Physical Exam Constitutional: + obese; no acute distress Eyes: Anicteric sclerae ENMT: External nose and ears normal. Moist mucous membranes Respiratory: normal respiratory effort, lungs clear to auscultation Cardiovascular: Rate/Rhythm: regular rate and regular rhythm No lower extremtiy edema. Gastrointestinal (Abdomen): Inspection/Auscultation: abdomen not distended +Bowel sounds Musculoskeletal: Moves limbs independently, left side with residual deficits Skin: no rashes, warm and dry Psychiatric: A+Ox3, euthymic affect Results & Data Results & Data Vital Signs (Past 12 Hours) Vital Signs Temp Pulse Pulse Resp BP Pulse Ox O2 Del Method 11/21/22 15:09 36.7 C 74 18 120/74 96 Room Air 11/21/22 16:37 67 11/21/22 08:00 70 11/21/22 11:22 36.7 C 78 16 106/66 97 Room Air 11/21/22 08:00 70 11/21/22 07:22 36.7 C 74 16 125/77 95 Nasal Cannula O2 Flow Rate 11/21/22 15:09 11/21/22 16:37 11/21/22 08:00 11/21/22 11:22 11/21/22 08:00 11/21/22 07:22 1.0 Resident Activity Tracking Resident Involvement: Resident Care Provided Care Provided: Adult Hospital Medicine
[2022-11-21] MEDS: clonazePAM 0.5 MG TAB PO SCH (20:26)
[2022-11-21] MEDS: MELATONIN 3 MG TAB PO PRN (20:39)
[2022-11-22] MEDS ORDERED: diphenhydrAMINE Capsule 25 MG CAP PO ONE (05:32)
[2022-11-22] MEDS: PANTOprazole 40 MG TAB PO SCH (05:39)
[2022-11-22] MEDS: PIPERACILLIN/TAZOBACTAM 4.5 GM in DEXTROSE 5% 100 ML IV SCH (05:39)
[2022-11-22 06:16] LABS: Basophils # (auto) 0.04 K/uL (0-0.2); Basophils % (auto) 0.7 %; Eosinophils # (auto) 0.23 K/uL (0-0.50); Eosinophils % (auto) 4.1 %; Hematocrit (blood only) 30.6 % (37.0-47.0); Immature Granulocytes # (auto) 0.02 K/uL (0.01-0.20); Immature Granulocytes % (auto) 0.4 %; Lymphocytes # (auto) 2.11 K/uL (1.2-3.4); Lymphocytes % (auto) 37.9 %; Mean Corpuscular Hemoglobin 21.5 pg (25.0-34.0); Mean Corpuscular Hgb Conc 29.4 g/dL (32.0-36.0); Mean Corpuscular Volume 73.2 fL (80.0-100.0); Mean Platelet Volume 9.4 fL (9.4-12.4); Monocytes % (auto) 7.2 %; Neutrophils # (auto) 2.77 K/uL (1.40-6.50); Neutrophils % (auto) 49.7 %; Platelet Count 390 K/uL (130-400); RDW Coefficient of Variation 16.1 % (11.5-14.5); RDW Standard Deviation 41.6 fL (36.4-46.3); Red Blood Count 4.18 M/uL (4.20-5.40); White Blood Count 5.57 K/ul (4.8-10.8)
[2022-11-22 06:36] LABS: BUN Creatinine Ratio 11.8 (10-20); Calcium 8.9 mg/dl (8.6-10.3); Creatinine Clr Calc Pharmacy 137.8 ml/min; Est GFR (African American) 91.6 ml/min; Est GFR (Non-African American) 79.1 ml/min
--- NOTE | 2022-11-22 07:16 | Hospitalist Progress Note ---
Date of Service November 22, 2022 Assessment & Plan (1) Splenic abscess: Plan: Ms. Salcido is a 37 y/o F with PMHX of prior splenic abscess requiring >2L drainage at [facility] in 11/2021, thalassemia, MCA stroke with residual L-sided hemiparesis, OUD w/ prior IVDU on methadone, infective endocarditis s/p MV repair, anxiety, bipolar disorder who presented to the ED with 1 week of fevers at home (Tm 103), progressive weakness, L flank pain, and urinary retention, subsequently found to have an 11x9 splenic collection most concerning for an abscess, as well as abnormal UA without CT-A/P urological findings. She requires transfer for further monitoring in the setting of her splenic findings, and possible drainage of her abscess vs. splenectomy. #Splenic Mass, Concerning for Recurrent Abscess -- s/p drainage at [facility] in 11/2021 per family - Presented with 1 week of fevers at home (Tm 103), L flank pain, progressive weakness, as wel as urinary findings - Workup: Patient with noted history of thalassemia (+strong family history) Has h/o bacterial endocarditis. H/O splenic abscess requiring drainage in 11/2021 BCX demonstrating NGx24h as of AM of 11/21 Hypotensive on arrival with concurrent lactic acidosis requiring >3L fluid resuscitation to maintain MAPs >65 Interestingly, afebrile w/o leukocytosis, admitting PCT <0.05, CRP 2.37 CT-A/P and US demonstratinx9cm mildly, but diffusely enhancing splenic mass - Evaluated by Surgery: Concern for abscess, recommending transfer to tertiary facility for drainage evaluation vs. splenectomy - Maintained on Zosyn/Vanc while here #Hypotension - Presented with systolic BPs in 80s, no concurrent tachycardia though on metoprolol - In context of fevers at home, weakness, abdominal pain, ?oliguria/anuria vs. retention - Unclear etiology. Suspect component of hypovolemia and possibly infectious contribution (see above), though laboratory work-up is surprisingly bland for this - Otherwise: TTE without failure, not hypervolemic. No obvious findings to suggest PE and on Eliquis b.i.d. CT-H without acute findings, no new neurologic deficits - Received >30cc/kg while here in resuscitation, continued mIVF alongside ABX - Hold metoprolol #Non-transfusion Dependent Thalassemia, Concurrent Iron Deficiency Anemia - Strong family history of thalassemia, patient has been formally diagnosed/worked-up - Iron studies here demonstrating microcytic anemia with concurrent iron deficiency - Given Venofer 200mg x 1 while here prior to transfer #History of Bacterial Endocarditis, Mitral Valve Repair - In context of former IVDU, now in remission - No evidence of hypervolemia while here. BNP 49. Repeat TTE (11/20) with stable MV prosthesis, resolved pHTN, LVEF 55-60% - Continue Eliquis 2.5mg b.i.d. - Continue metoprolol #Reported Urinary Retention vs. Oliguria/Anuria - Reported several days' worth of poor UOP, difficult to elucidate retention vs. oliguria/anuria -- says she was able to void some, but was not producing much urine - Monique catheter placed on arrival: UA demonstrating dark cloudy urine with trace leukocyte esterase, negative nitrite, RBC >30, WBC >30, hyaline casts and epithelial cells --> initial UA was "clean", however, appearance of urine since admission (and reports of urine at home) raise question if there may have been a lab error; this UCX is negative but considered unreliable given this concern - Repeat UCX pending as of AM 11/21 - Possible this may be contributing to her admitting symptoms -- however, given normal CT-A/P with and without contrast without any pyelo or cystitis-like findings, the severity of her reported symptoms seem to fit better with suspected splenic abscess, as above - Limited spinal imaging (lumbar MRI -- could not tolerate full scan) without acute findings to suggest neurogenic etiology - ABX ongoing, as above #Desaturation / Transient Hypoxia - Intermittent episodes of brief desaturations noted while here - Mild prominence of vasculature on CXR; no overt hypervolemia. No e/o PNA. On Eliquis. - Monitor. Consider outpatient CARINA work-up. #History of MCA CVA - Residual left-sided hemiparesis and facial droop -- no changes on admission - Head CT noncontrast was stable with no acute infarct or hemorrhage # OUD with History of IVDU on Methadone - Has remained abstinent of substance use for >10 months -- commended her while here - Home methadone dosing is 72mg/qAM (confirmed with [email or web address]) - Continue #Bipolar disorder, Anxiety - Sertraline 200mg po qam - Klonopin 0.5mg qHS continued Code: FULL CODE (2) Splenomegaly: (3) S/P mitral valve replacement with bioprosthetic valve: (4) Urinary retention with incomplete bladder emptying: (5) Opioid use disorder, severe, in sustained remission: (6) Chronic right arterial ischemic stroke, MCA (middle cerebral artery): (7) Left-sided weakness: (8) H/O mitral valve replacement: (9) Drug abuse in remission: Admission and Anticipated Discharge Date Admission Date: November 19, 2022 Review of Systems Review of Systems: As per above Physical Exam Constitutional: + obese; no acute distress Respiratory: normal respiratory effort, lungs clear to auscultation Cardiovascular: Rate/Rhythm: regular rate and regular rhythm Gastrointestinal (Abdomen): Inspection/Auscultation: abdomen not distended Skin: no rashes, warm and dry Psychiatric: A+Ox3, euthymic affect Results & Data Results & Data Vital Signs (Past 12 Hours) Vital Signs Temp Pulse Pulse Resp BP Pulse Ox O2 Del Method 11/22/22 03:14 36.9 C 84 16 135/74 93 Room Air 11/21/22 23:59 77 11/21/22 23:12 36.6 C 69 16 120/79 98 Room Air 11/21/22 19:44 36.7 C 84 20 122/76 96 Room Air 11/21/22 19:37 Room Air Resident Activity Tracking Resident Involvement: Resident Care Provided Care Provided: Adult Hospital Medicine
[2022-11-22] MEDS ORDERED: VANCOMYCIN HCL 1,500 MG in SODIUM CHLORIDE 0.9% 500 ML IV SCH (08:00)
[2022-11-22] MEDS: GABAPENTIN 600 MG TAB PO SCH (08:40)
[2022-11-22] MEDS: APIXABAN 2.5 MG TAB PO SCH (08:40)
[2022-11-22] MEDS: SERTRALINE HCL 100 MG TABLET PO SCH (08:40)
[2022-11-22] MEDS: BACLOFEN 10 MG TAB PO SCH (08:40)
[2022-11-22] MEDS: METHADONE ORAL SOLN 2 MG/ML PO SCH (08:44)
[2022-11-22] MEDS: SODIUM CHLORIDE 0.9% 1000ML 1,000 ML IV SCH (08:46)
[2022-11-22] MEDS: PATIENT'S OWN CONTROLLED MED 1 PO SCH (08:47)
--- NOTE | 2022-11-22 10:42 | Pharmacy Report ---
Pharmacy PK ABX Note - Date of Service November 22, 2022 - Assessment and Plan Assessment 11/22: - Patient is pending transfer to Replaced by [facility] for potential IR percutaneous drainage of suspected splenic abscess - Continues on empiric broad-spectrum vancomycin/Zosyn - Blood cultures show no growth at 48 hours, patient remains afebrile w/ no overt leukocytosis 11/20: - 37 year old F receiving empiric vancomycin for treatment of febrile illness in context of prior infective endocarditis. Patient with complicated PMH including IV drug abuse, history of MCA ischemic stroke, history of endocarditis w/ history of mitral valve replacement. TTE does not reveal vegetation. Blood cultures x 2 ordered/pending. No overt leukocytosis, negative procalcitonin, afebrile over past 24 hours. Day # 4 of antimicrobial therapy. Plan Vancomycin * Current regimen: 1250 mg IV every 12 hours * Random level obtained 11/22/22 resulted as 15.3 mcg/mL. This is predicted to achieve target AUC/SHEREE of 400-600 mg/L.hr. However, will increase regimen to increase probability of AUC/SHEREE target attainment * Change to 1500 mg IV every 12 hours * Will repeat level in the next 48-72 hours if therapy is continued and/or change in patient clinical status Zosyn * 4.5 g IV q8h - appropriate, no change Pharmacy will continue to follow and will adjust dose/frequency as necessary. Thank you. Pharmacy has transitioned to AUC monitoring for vancomycin. AUC/SHEREE is the preferred PK/PD target and is associated with decreased risk of nephrotoxicity compared to traditional trough targets.
[2022-11-23 13:53] LABS: 7-Aminoclonaz, Confirm 850 ng/mL (<25); Hydro-Alp Ur, GC/MS NEGATIVE ng/mL (<25); Hydroxyethylflurazepam, Conf NEGATIVE ng/mL (<50); Hydroxymidazolam Ur, GC/MS NEGATIVE ng/mL (<50); Hydroxytriazolam NEGATIVE ng/mL (<50); Lorazepam, Ur GC/MS 161 ng/mL (<50); Methadone, Ur Metabolite >10000 ng/mL (<100); Nordiazepam, Confirm NEGATIVE ng/mL (<50); Oxazepam Ur, GC/MS NEGATIVE ng/mL (<50); Temazepam, Confirm NEGATIVE ng/mL (<50)
== END 2022-11-22 12:30 | disposition short-term general hospital (02) | DRG 872 ==
LOC: ED 14:08 → 2S 23:42 → SUATTDRO 23:42 → 2S 11-20 00:23

== ENCOUNTER 2022-12-16 15:38 | Inpatient (IN) ==
[2022-12-16 17:06] LABS: Basophils # (auto) 0.04 K/uL (0-0.2); Basophils % (auto) 0.7 %; Eosinophils # (auto) 0.29 K/uL (0-0.50); Eosinophils % (auto) 5.2 %; Hematocrit (blood only) 30.6 % (37.0-47.0); Hemoglobin 9.1 g/dl (12.0-16.0); Immature Granulocytes # (auto) 0.01 K/uL (0.01-0.20); Immature Granulocytes % (auto) 0.2 %; Lymphocytes # (auto) 2.13 K/uL (1.2-3.4); Lymphocytes % (auto) 38.1 %; Mean Corpuscular Hemoglobin 22.9 pg (25.0-34.0); Mean Corpuscular Hgb Conc 29.7 g/dL (32.0-36.0); Mean Corpuscular Volume 76.9 fL (80.0-100.0); Mean Platelet Volume 8.8 fL (9.4-12.4); Monocytes # (auto) 0.38 K/uL (0.11-0.59); Monocytes % (auto) 6.8 %; Neutrophils # (auto) 2.74 K/uL (1.40-6.50); Platelet Count 381 K/uL (130-400); RDW Coefficient of Variation 17.5 % (11.5-14.5); RDW Standard Deviation 49.1 fL (36.4-46.3); Red Blood Count 3.98 M/uL (4.20-5.40); White Blood Count 5.59 K/ul (4.8-10.8)
--- NOTE | 2022-12-16 17:16 | Emergency Department Note ---
Impression & Plan Edema, peripheral, Generalized muscle weakness ED Provider Note NAME: TWILA RADER AGE: 37 SEX: F : 1985 ARRIVES VIA: Ambulance INFORMANT: Patient, ED PROVIDER(S): Marco Pappas DO CHIEF COMPLAINT: Altered mental status HPI: The patient is a 37-year-old female who presented to the emergency department by ambulance for an evaluation of altered mental status. The patient has a long past medical history that includes history of IV drug abuse. She currently takes methadone as well as benzodiazepines prescribed. She had a problem with a cardiac valve infection. She had a stroke because of this. She also has a history of a splenic abscess. She was transferred to [facility] for this. She was discharged and went through [facility] for rehab. She is currently not taking any antibiotics. Over the last 3 to 4 days her mother is noticed that she has had lower extremity swelling and decreased mental status. She is also had decrease in her activity. She has noticed decreased urine output. She has been diaphoretic. She is also felt very warm but she had no fever. The patient's been compliant with her outpatient medications. Her mother has been giving her extra Lasix because of the lower extremity swelling. ROS: See above HPI for pertinent positives & negatives. A total of 10 systems reviewed and were otherwise negative. PAST MEDICAL HISTORY: See Below PAST SURGICAL HISTORY: See Below FAMILY HISTORY: See Below SOCIAL HISTORY: See Below HOME MEDICATIONS: See Below ALLERGIES: See Below VITALS: See Below PHYSICAL EXAMINATION: GENERAL: The patient is listless. She responds to verbal commands but goes asleep easily after that. She does follow commands slowly. EYES: The conjunctivae are clear. The pupils are dilated and reactive. EARS, NOSE, MOUTH AND THROAT: The nose is without any evidence of any deformity. Mucous membranes are dry NECK: The neck is nontender and supple. RESPIRATORY: Shallow respirations were noted. Diminished breath sounds are noted throughout. CARDIOVASCULAR: Regular rate and rhythm noted there no murmurs rubs or gallops normal S1 normal S2. GASTROINTESTINAL: The abdomen is soft. Abdomen is nontender. MUSCULOSKELETAL/EXTREMITIES: There is no evidence of gross deformity full range of motion is noted in the hips and shoulders. SKIN: The skin was warm and dry. Pedal edema was noted bilaterally. There is erythema in both lower extremities. NEUROLOGIC: Patient is awake to verbal commands. She is oriented to person and place. She recognizes her family members. Strength was symmetric but diminished bilaterally. MEDICAL DECISION MAKING: The patient is a 37-year-old female who presented to the emergency department for an evaluation of lower extremity swelling and altered mental status. The patient has a history of IV drug abuse in the past. She also has a history of a cerebral infarct as well as valve replacement. The patient also had most recently an abscess in her spleen which was treated with antibiotics. She recently was a patient at inpatient rehab. She has been home being cared for by her family. The patient presented to the emergency department today with multiple complaints including peripheral edema. The patient has a history of valve replacement. I discussed the patient's laboratory and radiographic studies with her. This does not appear to be consistent with infection based on the patient's laboratory studies. She was observed in the emergency department and on reevaluation her mental status was significantly improved. I am unsure if she is having reactions to her medications. Given her overall condition I would like to discuss her condition with the on-call hospitalist. Triage Nursing notes reviewed. Prior medical records reviewed Vital Signs: reviewed and remarkable for hypotension. Differential diagnosis: Infection, hypoglycemia, electrolyte abnormalities, overdose, toxicologic, cardiac sources, intracerebral event, neurologic, trauma, as well as other pa thologies. ER treatment provided: See below Diagnostics interpreted by me: ECG: EKG was obtained in the emergency department. My interpretation is normal sinus rhythm at 80 bpm. There is no ectopy. There is no acute ST segment abnormalities noted. This was compared to a tracing from November 19, 2022. No changes were noted. Cardiac Monitoring: An order was placed for continuous cardiac monitoring. The monitor shows a rate of 79 bpm with sinus rhythm. Laboratory studies: As stated above and show below. Imaging studies: See below. Radiographic imaging was reviewed by myself Consultation(s): Dr. Poe with the [facility] hospitalist group was notified about the patient. Past Med/Surg History Medical History Anemia Anxiety Bipolar disorder Chronic right arterial ischemic stroke, MCA (middle cerebral artery) Drug abuse and dependence Endocarditis History of embolic stroke Rt MCA PCOS (polycystic ovarian syndrome) Surgical History H/O mitral valve replacement History of section History of open heart surgery History of repair of ACL History of tubal ligation Family History Grandmother (Paternal) Breast cancer Grandfather (Maternal) Myocardial infarction Graves disease Grandfather (Paternal) Myocardial infarction Other Thalassemia Denies family history of Colon cancer Ovarian cancer Prostate cancer Social History Smoking Status: Current every day smoker Tobacco Type: Cigarettes packs per day: 1; Second Hand Exposure: No; Do You Dip or Chew Tobacco: No; Hx Alcohol Use: No Hx Substance Use: Yes Last Used Substance: Unknown Substance Use Type Other:: clean for 10 months Preferred Language: Burkinan Communication Ability: Effective Visual Impairment: No Limitations Hearing Ability: Normal General Production Manager Required: No Beliefs That Will Affect Care: None marital status: Single Current Living Situation: Alone Current Living Situation Comment: boyfriend and her 3 daughters 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 Feels Safe at Home: Yes Childhood Exposure to Second-Hand Smoke: No Diet: regular Diet Comment: regular Dental Care, Regularly: No Physical Activity Frequency: Does not Exercise Seatbelt Use: sometimes Sunscreen Use: No Assistive Devices: Cane, Hospital Bed, Lift Chair, Mechanical Lift, Walker and Wheelchair Allergies Allergies Allergy/AdvReac Type Severity Reaction Status Date / Time sulfamethoxazole Allergy Severe Anaphylaxis Verified 12/16/22 17:56 [From Bactrim] trimethoprim [From Bactrim] Allergy Severe Anaphylaxis Verified 12/16/22 17:56 atorvastatin AdvReac Intermediate Muscle Pain Verified 12/16/22 17:56 Home Meds Home Medications Medication Instructions Recorded Confirmed aspirin 81 mg chewable tablet 81 mg PO DAILY 12/16/22 12/16/22 baclofen 10 mg tablet 10 mg PO BID 12/16/22 12/16/22 clonazepam 0.5 mg tablet 0.5 mg PO 12/16/22 12/16/22 gabapentin 600 mg tablet 600 mg PO Q8H 12/16/22 12/16/22 ipratropium 20 mcg-albuterol 100 1 puff inhalation TID 12/16/22 12/16/22 mcg/actuation mist for inhalation (Combivent Respimat) melatonin 3 mg tablet 3 mg PO 12/16/22 12/16/22 methadone 10 mg tablet 10 mg PO DAILY 12/16/22 12/16/22 multivitamin with minerals 1 tab PO DAILY 12/16/22 12/16/22 sertraline 100 mg tablet 100 mg PO QAM 12/16/22 12/16/22 Previous Rx's Medication Instructions Recorded Wheelchair (Manual) #1 ea 03/25/22 Hospital Bed Home[facility] (Hospital #1 ea 04/18/22 Bed) Wheelchair (Manual) (Manual #1 ea 04/18/22 Wheelchair) Lift Chair #1 ea 10/09/22 miscellaneous medical supply #1 ea 10/16/22 ketoconazole 2 % topical cream 1 applic topical BID 4 weeks #15 11/19/22 grams apixaban 5 mg tablet 5 mg PO BID #30 tabs 12/13/22 furosemide 40 mg tablet 40 mg PO BID #60 tabs 12/13/22 fluticasone propionate 100 1 inh inhalation BID #60 ea 12/16/22 mcg/actuation blister powder for inhalation (Flovent Diskus) metoprolol tartrate 50 mg tablet 25 mg PO BID #30 tabs 12/16/22 trazodone 50 mg tablet 50 mg PO HS #30 tabs 12/16/22 Results & Data (ED) Vital Signs Vital Signs - 24 hr 12/16/22 15:40 12/16/22 15:40 12/16/22 15:54 Temperature 37.1 C 37.1 C Temperature Source Oral Oral Pulse Rate 82 82 Pulse Rate [Apical] 82 Pulse Rhythm [Apical] Pulse Strength [Apical] Respiratory Rate 18 Respiratory Effort / Characteristics Respiratory Depth Blood Pressure 106/42 L Blood Pressure [Right Radial Artery] 106/42 L Blood Pressure Mean 63 Blood Pressure Mean [Right Radial Artery] 63 Blood Pressure Position Lying Blood Pressure Position [Right Radial Artery] Lying Pulse Oximetry 95 Oxygen Delivery Method Room Air Sepsis Recent Fever Within 48 Hours No Sepsis New/Unexplained Change in Mental Status No Sepsis Action Taken by Nursing No Action Required 12/16/22 18:17 Temperature Temperature Source Pulse Rate Pulse Rate [Apical] 79 Pulse Rhythm [Apical] Regular Pulse Strength [Apical] Normal Respiratory Rate 20 Respiratory Effort / Characteristics Non-Labored Spontaneous Respiratory Depth Normal Blood Pressure Blood Pressure [Right Radial Artery] 101/57 L Blood Pressure Mean Blood Pressure Mean [Right Radial Artery] 71 Blood Pressure Position Blood Pressure Position [Right Radial Artery] Pulse Oximetry 95 Oxygen Delivery Method Room Air Sepsis Recent Fever Within 48 Hours Sepsis New/Unexplained Change in Mental Status Sepsis Action Taken by [facility] Medications Current Medication List: was personally reviewed by me Laboratory Data Attestation: I reviewed the patient's lab results. 12/16/22 16:13 12/16/22 16:13 Lab Results 12/16/22 12/16/22 12/16/22 Range/Units 16:13 16:13 16:13 WBC 5.59 (4.8-10.8) K/ul RBC 3.98 L (4.20-5.40) M/uL Hgb 9.1 L (12.0-16.0) g/dl Hct 30.6 L (37.0-47.0) % MCV 76.9 L (80.0-100.0) fL MCH 22.9 L (25.0-34.0) pg MCHC 29.7 L (32.0-36.0) g/dL RDW Std Deviation 49.1 H (36.4-46.3) fL RDW Coeff of Alexia 17.5 H (11.5-14.5) % Plt Count 381 (130-400) K/uL MPV 8.8 L (9.4-12.4) fL Immature Gran % (Auto) 0.2 % Neut % (Auto) 49.0 % Lymph % (Auto) 38.1 % [place] % (Auto) 6.8 % Eos % (Auto) 5.2 % Baso % (Auto) 0.7 % Neut # (Auto) 2.74 (1.40-6.50) K/uL Lymph # (Auto) 2.13 (1.2-3.4) K/uL [place] # (Auto) 0.38 (0.11-0.59) K/uL Eos # (Auto) 0.29 (0-0.50) K/uL Baso # (Auto) 0.04 (0-0.2) K/uL Immature Gran # (Auto) 0.01 (0.01-0.20) K/uL PT 10.7 (9.0-12.0) Seconds INR 1.0 (0.9-1.1) APTT 29.0 (21.0-31.0) Seconds PTT Ratio 1.0 VBG pH (7.36-7.41) VBG pCO2 (38-50) mmHg VBG pO2 mmHg VBG HCO3 mmol/L VBG O2 Saturation % VBG Base Excess mEq/L Sodium 138 (136-145) mmol/L Potassium 3.9 (3.5-5.1) mmol/L Chloride 102 (98-107) mmol/L Carbon Dioxide 31 (21-32) mmol/L Anion Gap 5 (3-11) BUN 12 (6-23) mg/dl Creatinine 0.94 (0.6-1.2) mg/dl Est Cr Clr Drug Dosing 138.2 ml/min Est GFR ( Amer) 90.5 ml/min Est GFR (Non-Af Amer) 78.1 ml/min BUN/Creatinine Ratio 12.8 (10-20) Glucose 78 (70-99(Fasting)) mg/dl Lactate (0.4-2.0) mmol/L Calcium 8.5 L (8.6-10.3) mg/dl Magnesium 1.8 (1.7-2.4) mg/dl Total Bilirubin 0.2 (0.2-1.0) mg/dl AST 14 (13-39) U/L ALT 10 (7-52) U/L Alkaline Phosphatase 82 (34-104) U/L Ammonia (18-72) umol/L Troponin I High Sens 2.4 (0-14) pg/ml C-Reactive Protein 1.76 H (0-0.5) mg/dl B-Natriuretic Peptide (0-100) pg/ml Total Protein 7.6 (6.0-8.3) gm/dl Albumin 3.3 L (3.4-5.0) gm/dl Globulin 4.3 H (2.5-4.0) gm/dl Albumin/Globulin Ratio 0.8 L (0.9-2) Procalcitonin (0-0.5) ng/ml HCG, Qual (Negative) Urine Color Urine Appearance (Clear) Urine pH (4.5-7.5) Ur Specific [place] (1.000-1.030) Urine Protein (Negative) Urine Glucose (UA) (Negative) Urine Ketones (Negative) Urine Blood (Negative) Urine Nitrite (Negative) Urine Bilirubin (Negative) Urine Urobilinogen (Negative) Ur Leukocyte Esterase (Negative) 12/16/22 12/16/22 12/16/22 Range/Units 16:13 16:13 16:13 WBC (4.8-10.8) K/ul RBC (4.20-5.40) M/uL Hgb (12.0-16.0) g/dl Hct (37.0-47.0) % MCV (80.0-100.0) fL MCH (25.0-34.0) pg MCHC (32.0-36.0) g/dL RDW Std Deviation (36.4-46.3) fL RDW Coeff of Alexia (11.5-14.5) % Plt Count (130-400) K/uL MPV (9.4-12.4) fL Immature Gran % (Auto) % Neut % (Auto) % Lymph % (Auto) % [place] % (Auto) % Eos % (Auto) % Baso % (Auto) % Neut # (Auto) (1.40-6.50) K/uL Lymph # (Auto) (1.2-3.4) K/uL [place] # (Auto) (0.11-0.59) K/uL Eos # (Auto) (0-0.50) K/uL Baso # (Auto) (0-0.2) K/uL Immature Gran # (Auto) (0.01-0.20) K/uL PT (9.0-12.0) Seconds INR (0.9-1.1) APTT (21.0-31.0) Seconds PTT Ratio VBG pH (7.36-7.41) VBG pCO2 (38-50) mmHg VBG pO2 mmHg VBG HCO3 mmol/L VBG O2 Saturation % VBG Base Excess mEq/L Sodium (136-145) mmol/L Potassium (3.5-5.1) mmol/L Chloride (98-107) mmol/L Carbon Dioxide (21-32) mmol/L Anion Gap (3-11) BUN (6-23) mg/dl Creatinine (0.6-1.2) mg/dl Est Cr Clr Drug Dosing ml/min Est GFR ( Amer) ml/min Est GFR (Non-Af Amer) ml/min BUN/Creatinine Ratio (10-20) Glucose (70-99(Fasting)) mg/dl Lactate (0.4-2.0) mmol/L Calcium (8.6-10.3) mg/dl Magnesium (1.7-2.4) mg/dl Total Bilirubin (0.2-1.0) mg/dl AST (13-39) U/L ALT (7-52) U/L Alkaline Phosphatase (34-104) U/L Ammonia (18-72) umol/L Troponin I High Sens (0-14) pg/ml C-Reactive Protein (0-0.5) mg/dl B-Natriuretic Peptide 53 (0-100) pg/ml Total Protein (6.0-8.3) gm/dl Albumin (3.4-5.0) gm/dl Globulin (2.5-4.0) gm/dl Albumin/Globulin Ratio (0.9-2) Procalcitonin < 0.05 (0-0.5) ng/ml HCG, Qual Negative (Negative) Urine Color Urine Appearance (Clear) Urine pH (4.5-7.5) Ur Specific [place] (1.000-1.030) Urine Protein (Negative) Urine Glucose (UA) (Negative) Urine Ketones (Negative) Urine Blood (Negative) Urine Nitrite (Negative) Urine Bilirubin (Negative) Urine Urobilinogen (Negative) Ur Leukocyte Esterase (Negative) 12/16/22 12/16/22 12/16/22 Range/Units 17:10 17:10 17:10 WBC (4.8-10.8) K/ul RBC (4.20-5.40) M/uL Hgb (12.0-16.0) g/dl Hct (37.0-47.0) % MCV (80.0-100.0) fL MCH (25.0-34.0) pg MCHC (32.0-36.0) g/dL RDW Std Deviation (36.4-46.3) fL RDW Coeff of Alexia (11.5-14.5) % Plt Count (130-400) K/uL MPV (9.4-12.4) fL Immature Gran % (Auto) % Neut % (Auto) % Lymph % (Auto) % [place] % (Auto) % Eos % (Auto) % Baso % (Auto) % Neut # (Auto) (1.40-6.50) K/uL Lymph # (Auto) (1.2-3.4) K/uL [place] # (Auto) (0.11-0.59) K/uL Eos # (Auto) (0-0.50) K/uL Baso # (Auto) (0-0.2) K/uL Immature Gran # (Auto) (0.01-0.20) K/uL PT (9.0-12.0) Seconds INR (0.9-1.1) APTT (21.0-31.0) Seconds PTT Ratio VBG pH 7.41 (7.36-7.41) VBG pCO2 51 H (38-50) mmHg VBG pO2 57 mmHg VBG HCO3 32 mmol/L VBG O2 Saturation 90.2 % VBG Base Excess 6.3 mEq/L Sodium (136-145) mmol/L Potassium (3.5-5.1) mmol/L Chloride (98-107) mmol/L Carbon Dioxide (21-32) mmol/L Anion Gap (3-11) BUN (6-23) mg/dl Creatinine (0.6-1.2) mg/dl Est Cr Clr Drug Dosing ml/min Est GFR ( Amer) ml/min Est GFR (Non-Af Amer) ml/min BUN/Creatinine Ratio (10-20) Glucose (70-99(Fasting)) mg/dl Lactate 1.3 (0.4-2.0) mmol/L Calcium (8.6-10.3) mg/dl Magnesium (1.7-2.4) mg/dl Total Bilirubin (0.2-1.0) mg/dl AST (13-39) U/L ALT (7-52) U/L Alkaline Phosphatase (34-104) U/L Ammonia 29.0 (18-72) umol/L Troponin I High Sens (0-14) pg/ml C-Reactive Protein (0-0.5) mg/dl B-Natriuretic Peptide (0-100) pg/ml Total Protein (6.0-8.3) gm/dl Albumin (3.4-5.0) gm/dl Globulin (2.5-4.0) gm/dl Albumin/Globulin Ratio (0.9-2) Procalcitonin (0-0.5) ng/ml HCG, Qual (Negative) Urine Color Urine Appearance (Clear) Urine pH (4.5-7.5) Ur Specific [place] (1.000-1.030) Urine Protein (Negative) Urine Glucose (UA) (Negative) Urine Ketones (Negative) Urine Blood (Negative) Urine Nitrite (Negative) Urine Bilirubin (Negative) Urine Urobilinogen (Negative) Ur Leukocyte Esterase (Negative) 12/16/22 Range/Units 18:15 WBC (4.8-10.8) K/ul RBC (4.20-5.40) M/uL Hgb (12.0-16.0) g/dl Hct (37.0-47.0) % MCV (80.0-100.0) fL MCH (25.0-34.0) pg MCHC (32.0-36.0) g/dL RDW Std Deviation (36.4-46.3) fL RDW Coeff of Alexia (11.5-14.5) % Plt Count (130-400) K/uL MPV (9.4-12.4) fL Immature Gran % (Auto) % Neut % (Auto) % Lymph % (Auto) % [place] % (Auto) % Eos % (Auto) % Baso % (Auto) % Neut # (Auto) (1.40-6.50) K/uL Lymph # (Auto) (1.2-3.4) K/uL [place] # (Auto) (0.11-0.59) K/uL Eos # (Auto) (0-0.50) K/uL Baso # (Auto) (0-0.2) K/uL Immature Gran # (Auto) (0.01-0.20) K/uL PT (9.0-12.0) Seconds INR (0.9-1.1) APTT (21.0-31.0) Seconds PTT Ratio VBG pH (7.36-7.41) VBG pCO2 (38-50) mmHg VBG pO2 mmHg VBG HCO3 mmol/L VBG O2 Saturation % VBG Base Excess mEq/L Sodium (136-145) mmol/L Potassium (3.5-5.1) mmol/L Chloride (98-107) mmol/L Carbon Dioxide (21-32) mmol/L Anion Gap (3-11) BUN (6-23) mg/dl Creatinine (0.6-1.2) mg/dl Est Cr Clr Drug Dosing ml/min Est GFR ( Amer) ml/min Est GFR (Non-Af Amer) ml/min BUN/Creatinine Ratio (10-20) Glucose (70-99(Fasting)) mg/dl Lactate (0.4-2.0) mmol/L Calcium (8.6-10.3) mg/dl Magnesium (1.7-2.4) mg/dl Total Bilirubin (0.2-1.0) mg/dl AST (13-39) U/L ALT (7-52) U/L Alkaline Phosphatase (34-104) U/L Ammonia (18-72) umol/L Troponin I High Sens (0-14) pg/ml C-Reactive Protein (0-0.5) mg/dl B-Natriuretic Peptide (0-100) pg/ml Total Protein (6.0-8.3) gm/dl Albumin (3.4-5.0) gm/dl Globulin (2.5-4.0) gm/dl Albumin/Globulin Ratio (0.9-2) Procalcitonin (0-0.5) ng/ml HCG, Qual (Negative) Urine Color Dark Yellow Urine Appearance Clear (Clear) Urine pH 6.0 (4.5-7.5) Ur Specific [place] 1.028 (1.000-1.030) Urine Protein Negative (Negative) Urine Glucose (UA) Negative (Negative) Urine Ketones Trace H (Negative) Urine Blood Negative (Negative) Urine Nitrite Negative (Negative) Urine Bilirubin Negative (Negative) Urine Urobilinogen Negative (Negative) Ur Leukocyte Esterase Negative (Negative) Imaging Data Attestation: I personally reviewed and interpreted this imaging study as follows: My Impression: 1 view chest x-ray was obtained in the emergency department. My interpretation is no free air or definite for trait, final report below. Radiologist's Impression: Chest X-Ray 12/16/22 16:50 XR chest 1V portable CLINICAL HISTORY: Dyspnea TECHNIQUE: Single frontal radiograph of the chest was obtained. Comparison: Comparison is made to chest radiograph 11/19/2022 FINDINGS: Exam is limited by underpenetration. Cardiomegaly is noted. Prominence and cephalization of the vasculature is seen. No evidence of pleural effusion or pneumothorax. IMPRESSION: Cardiomegaly and mild pulmonary edema. ACT 112: Negative or not required by law. Electronically signed by: Hiro Santoyo M.D. 12/16/2022 6:[address] 12/16/22 18:05 CT head/brain wo con CLINICAL HISTORY: ams Technique: Contiguous axial CT images of the head were acquired from the base of the skull to the vertex without intravenous contrast administration. Images were viewed in brain, subdural and bone windows. Automated dose lowering techniques and/or adjustment according to patient size were utilized for this exam. Comparison: Comparison is made to CT head 533 Findings: The ventricles, basal cisterns, and cerebral sulci are normal. There is no acute intracranial hemorrhage or evidence of acute territorial infarction. Neither mass effect, shift of the midline structures, nor abnormal extra-axial fluid collections are shown. Chronic encephalomalacia from old right MCA infarct is unchanged in appearance. Imaged portions of the paranasal sinuses and mastoid air cells are clear. The orbits appear normal. There are no acute fractures of the calvaria or scalp swelling. Impression: No acute intracranial hemorrhage, no evidence of acute territorial infarction or other acute intracranial disease process. ACT 112: Negative or not required by law. Electronically signed by: Hiro Santoyo M.D. 12/16/2022 6:54 PM Discharge Plan Visit Data Chief Complaint: Swelling/Edema to Extremity Stated Complaint: INCREASED SWELLING, DECREASED OUTPUT ED Provider: Marco Pappas Discharge Problem: Edema, peripheral, Generalized muscle weakness Patient Disposition: Being Evaluated by Hospitalist Forms Stand Alone Forms: [facility] Prescriptions Prescriptions: No Action (DME) Lift Chair Misc See Rx Instructions .Route Qty: 1 0RF Rx Instructions: As directed (DME) miscellaneous medical supply Misc See Rx Instructions .ROUTE .MEDSUPPLY Qty: 1 0RF Rx Instructions: Left wrist splint Dx: lt spastic hemiparesis furosemide 40 mg tablet 40 mg PO BID Qty: 60 2RF apixaban 5 mg tablet 5 mg PO BID Qty: 30 1RF metoprolol tartrate 50 mg tablet 25 mg PO BID Qty: 30 2RF Flovent Diskus 100 mcg/actuation blister with device 1 inh inhalation BID Qty: 60 2RF trazodone 50 mg tablet 50 mg PO HS Qty: 30 2RF (DME) Wheelchair (Manual) Device See Rx Instructions .Route Qty: 1 0RF Rx Instructions: As [id number] Z86.73 (DME) Hospital Bed Mis See Rx Instructions .Route Qty: 1 0RF Rx Instructions: As directed G81.9, I63.411 (DME) Manual Wheelchair Device See Rx Instructions .Route Qty: 1 0RF Rx Instructions: aly[address] drive WC please G81.9 ketoconazole 2 % cream 1 applic topical BID 28 Days Qty: 15 0RF methadone 10 mg Tablet 10 mg PO DAILY melatonin 3 mg Tablet 3 mg PO HS baclofen 10 mg tablet 10 mg PO BID aspirin 81 mg Tablet,Chewable 81 mg PO DAILY multivitamin with minerals Tablet 1 tab PO DAILY Combivent Respimat 20-100 mcg/actuation Mist 1 puff INHALATION TID gabapentin 600 mg tablet 600 mg PO Q8H clonazepam 0.5 mg tablet 0.5 mg PO HS sertraline 100 mg tablet 100 mg PO QAM Referrals Referrals: Stacey Arce MD [Primary Care Provider] -
[2022-12-16 17:20] LABS: Pregnancy Test, Serum Negative (Negative)
[2022-12-16 17:22] LABS: Albumin Globulin Ratio 0.8 (0.9-2); Albumin Level 3.3 gm/dl (3.4-5.0); BUN Creatinine Ratio 12.8 (10-20); Bilirubin,Total 0.2 mg/dl (0.2-1.0); C Reactive Protein 1.76 mg/dl (0-0.5); Calcium 8.5 mg/dl (8.6-10.3); Creatinine Clr Calc Pharmacy 138.2 ml/min; Est GFR (African American) 90.5 ml/min; Est GFR (Non-African American) 78.1 ml/min; Globulin 4.3 gm/dl (2.5-4.0); Magnesium 1.8 mg/dl (1.7-2.4); Potassium 3.9 mmol/L (3.5-5.1); Total Protein 7.6 gm/dl (6.0-8.3)
[2022-12-16 17:22] LABS: Base Excess VBG 6.3 mEq/L; HCO3 VBG 32 mmol/L; Oxygen Saturation VBG 90.2 %; PCO2 VBG 51 mmHg (38-50); PO2 VBG 57 mmHg; pH VBG 7.41 (7.36-7.41)
[2022-12-16 17:28] LABS: Troponin I High Sensitivity 2.4 pg/ml (0-14)
[2022-12-16 17:35] LABS: Prothrombin Time 10.7 Seconds (9.0-12.0)
[2022-12-16 18:32] LABS: Appearance Urine Clear (Clear); Bilirubin Urine Negative (Negative); Blood Urine Negative (Negative); Color Urine Dark Yellow; Glucose Urine UA Negative (Negative); Ketones Urine Trace (Negative); Leukocyte Esterase Urine Negative (Negative); Nitrite Urine Negative (Negative); Protein Urine Negative (Negative); Specific Gravity Urine 1.028 (1.000-1.030); Urobilinogen Urine Negative (Negative)
--- NOTE | 2022-12-16 18:40 | XRay Report ---
XR chest 1V portable CLINICAL HISTORY: Dyspnea TECHNIQUE: Single frontal radiograph of the chest was obtained. Comparison: Comparison is made to chest radiograph 11/19/2022 FINDINGS: Exam is limited by underpenetration. Cardiomegaly is noted. Prominence and cephalization of the vascu lature is seen. No evidence of pleural effusion or pneumothorax. IMPRESSION: Cardiomegaly and mild pulmonary edema. ACT 112: Negative or not required by law. Electronically signed by: Hiro Santoyo M.D. 12/16/2022 6:38 PM
--- NOTE | 2022-12-16 18:55 | CT Scan Report ---
CT head/brain wo con CLINICAL HISTORY: ams Technique: Contiguous axial CT images of the head were acquired from the base of the skull to the sanjiv sterling without intravenous contrast administration. Images were viewed in brain, subdural and bone windo ws. Automated dose lowering techniques and/or adjustment according to patient size were utilized for this exam. Comparison: Comparison is made to CT head 533 Findings: The ventricles, basal cisterns, and cerebral sulci are normal. There is no acute intracranial hemorrh age or evidence of acute territorial infarction. Neither mass effect, shift of the midline structures , nor abnormal extra-axial fluid collections are shown. Chronic encephalomalacia from old right MCA i nfarct is unchanged in appearance. Imaged portions of the paranasal sinuses and mastoid air cells are clear. The orbits appear normal. There are no acute fractures of the calvaria or scalp swelling. Impression: No acute intracranial hemorrhage, no evidence of acute territorial infarction or other acute intracra nial disease process. ACT 112: Negative or not required by law. Electronically signed by: Hiro Santoyo M.D. 12/16/2022 6:54 PM
[2022-12-16 19:07] LABS: Amphetamines+Metham, Urine Neg (Neg); Barbiturates, Urine Neg (Neg); Benzodiazepine, Urine Pos (Neg); Cocaine, Urine Neg (Neg); MDMA (Ecstacy), Urine Pos (Neg); Methadone, Urine Pos (Neg); Opiate, Urine Neg (Neg); Phencyclidine, Urine Neg (Neg)
[2022-12-16] MEDS ORDERED: FUROSEMIDE 40 MG/4 ML VIAL IV ONE (20:00)
[2022-12-16 20:09] LABS: Influenza A virus by PCR Negative (Neg); Influenza B virus by PCR Negative (Neg); RSV by PCR Negative (Neg); SARS CoV2 RNA(COVID-19) Ceph NEGATIVE (Negative)
--- NOTE | 2022-12-16 20:13 | History & Physical Report ---
Date of Service December 16, 2022 Assessment & Plan (1) Edema, peripheral: Plan: 37yo female presenting with 4 days of progressive bilateral LE edema as well as reported swelling of her hands and feet. Patient denies cough, SOB or worsening orthopnea. She is 96% on room air. Possibly dependent edema? She has been at [facility] since 11/29/22 - likely sleeping in a bed? She reports she has been sleeping in her recliner chair upon returning home. Her renal function, liver appear at baseline. No proteinuria on UA. -Observation to medical with telemetry -Check TSH -Check 2D echo - confirm appropriate MV position and function -Lasix 40mg IV x 1 now - monitor output -Continue Lasix 40mg po BID -Daily weights -Monitor I/Os -PT/OT evaluation for possible home PT (2) S/P mitral valve replacement with bioprosthetic valve: Plan: Noted. Patient had Medtronic valve placed 07/23/22 -Check 2D echo -Continue Apixaban (3) Opioid use disorder, severe, in sustained remission: Plan: Patient with opioid use disorder in remission x > 10 months. She is on chronic methadone therapy which she receives from [facility] -Continue Methadone 10mg po daily (4) MENDEZ (generalized anxiety disorder): Plan: Chronic. Controlled -Continue Clonazepam -Continue Sertraline -Continue Trazodone (5) Anemia: Plan: With history of thalassemia. H/H near baseline. No active bleed -Monitor F/E/N - Heplock. Electrolytes WNL. 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 Patient was admitted to [facility] on 11/19/22 after presenting with fever and generalized weakness as well as fever and urinary retention. Patient found to have an 11cm heterogenous fluid collection in the spleen concerning for cyst vs abscess. She was treated with Vancomycin and Zosyn. Patient was transferred to [facility] on 11/22/22 for further evaluation and possible drainage of her splenic collection. At [facility] she was evaluated by General Surgery. No surgical intervention was performed as patient was afebrile, stable and did not appear to have an infection. Her blood cultures were POSITIVE for staph hemolyticus consistent with contamination. She was discharged on Augmentin x 7 days. She was discharged to [facility] facility on 11/29/22. Patient reports she did well at [facility]. Steady gains in therapy noted. She was able to walk 100 feet with minimal assistance. She was discharged home on 12/12/22. Since being home, patient reports she has not been doing well. She reports progressive edema involving her bilateral LE as well as thighs, abdominal wall, hands and face. She reports she can only walk 5 feet at home and her mobility is limited secondary to her edema as well as pain and weakness in her legs and feet. She also states that her legs turn purple if they are left down. She denies fever, chills, cough, SOB, palpitations, dizziness or syncope. Denies abdominal pain, nausea, vomiting, diarrhea or constipation. She reports decrease in UOP - she has been taking Lasix twice daily with minimal UOP. No dysuria or hematuria noted. No flank pain. She reports stable orthopnea since having her valvular surgery in June 2022. Unchanged. She sleeps in a recliner chair. In the ER she is afebrile, HD stable. ER Course: Cultres obtained Allergies Allergy/AdvReac Type Severity Reaction Status Date / Time sulfamethoxazole Allergy Severe Anaphylaxis Verified 12/16/22 17:56 [From Bactrim] trimethoprim [From Bactrim] Allergy Severe Anaphylaxis Verified 12/16/22 17:56 atorvastatin AdvReac Intermediate Muscle Pain Verified 12/16/22 17:56 Home Medications Medication Instructions Recorded Confirmed Type Wheelchair (Manual) #1 ea 03/25/22 12/13/22 Rx Hospital Bed Homecare (Hospital #1 ea 04/18/22 12/13/22 Rx Bed) Wheelchair (Manual) (Manual #1 ea 04/18/22 12/13/22 Rx Wheelchair) Lift Chair #1 ea 10/09/22 12/13/22 Rx miscellaneous medical supply #1 ea 10/16/22 12/13/22 Rx ketoconazole 2 % topical cream 1 applic topical BID 4 weeks #15 11/19/22 12/16/22 Rx grams apixaban 5 mg tablet 5 mg PO BID #30 tabs 12/13/22 12/16/22 Rx furosemide 40 mg tablet 40 mg PO BID #60 tabs 12/13/22 12/16/22 Rx aspirin 81 mg chewable tablet 81 mg PO DAILY 12/16/22 12/16/22 History baclofen 10 mg tablet 10 mg PO BID 12/16/22 12/16/22 History clonazepam 0.5 mg tablet 0.5 mg PO HS 12/16/22 12/16/22 History fluticasone propionate 100 1 inh inhalation BID #60 ea 12/16/22 12/16/22 Rx mcg/actuation blister powder for inhalation (Flovent Diskus) gabapentin 600 mg tablet 600 mg PO Q8H 12/16/22 12/16/22 History ipratropium 20 mcg-albuterol 100 1 puff inhalation TID 12/16/22 12/16/22 History mcg/actuation mist for inhalation (Combivent Respimat) melatonin 3 mg tablet 3 mg PO HS 12/16/22 12/16/22 History methadone 10 mg tablet 10 mg PO DAILY 12/16/22 12/16/22 History metoprolol tartrate 50 mg tablet 25 mg PO BID #30 tabs 12/16/22 12/16/22 Rx multivitamin with minerals 1 tab PO DAILY 12/16/22 12/16/22 History sertraline 100 mg tablet 100 mg PO QAM 12/16/22 12/16/22 History trazodone 50 mg tablet 50 mg PO HS #30 tabs 12/16/22 12/16/22 Rx Past Med/Surg History Medical History (Updated 12/16/22 @ 20:08 by Leigha Poe DO) Anemia Anxiety Bipolar disorder Chronic right arterial ischemic stroke, MCA (middle cerebral artery) Drug abuse and dependence Endocarditis History of embolic stroke Rt MCA PCOS (polycystic ovarian syndrome) Splenic abscess Thalassemia Surgical History (Updated 12/16/22 @ 20:08 by Leigha Poe DO) H/O mitral valve replacement History of section History of repair of ACL History of tubal ligation Family History Grandmother (Paternal) Breast cancer Grandfather (Maternal) Myocardial infarction Graves disease Grandfather (Paternal) Myocardial infarction Other Thalassemia Denies family history of Colon cancer Ovarian cancer Prostate cancer Social History Smoking Status: Current every day smoker Tobacco Type: Cigarettes packs per day: 1; Second Hand Exposure: No; Do You Dip or Chew Tobacco: No; Hx Alcohol Use: No Hx Substance Use: Yes Last Used Substance: Unknown Substance Use Type Other:: clean for 10 months Preferred Language: Niuean Communication Ability: Effective Visual Impairment: No Limitations Hearing Ability: Normal Coal Trammer Required: No Beliefs That Will Affect Care: None marital status: Single Current Living Situation: Alone Current Living Situation Comment: boyfriend and her 3 daughters 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 Feels Safe at Home: Yes Childhood Exposure to Second-Hand Smoke: No Diet: regular Diet Comment: regular Dental Care, Regularly: No Physical Activity Frequency: Does not Exercise Seatbelt Use: sometimes Sunscreen Use: No Assistive Devices: Cane, Hospital Bed, Lift Chair, Mechanical Lift, Walker and Wheelchair Review of Systems Review of Systems: All systems reviewed & are unremarkable except as noted in HPI & below Physical Exam Physical Exam: General: obese female patient resting comfortably, NAD, non-toxic in appearance, AA&O x 4, chronically ill in appearance Skin: warm, dry, intact, no rashes or lesions HEENT: NC/AT, PERRL, EOMI, anicteric sclera, conjunctiva without injection, external ear normal to inspection and nontender, nares patent, moist mucus membranes, dentition intact, no oropharyngeal lesions, neck supple, trachea midline, no LAD, no thyromegaly, no JVD Heart: +S1/S2, regular, no m/r/g Lungs: equal air entry bilaterally, no rales/rhonchi/wheezes Abd: +BS, soft, NT/ND, no masses/organomegaly/ascites Ext: warm, 2+ pulses in UE/LE bilaterally, no clubbing/cyanosis, +edema, non-pitting - hands and bilateral LE to thighs Neuro: chronic left sided spastic paresis Results & Data Results & Data Vital Signs (Past 12 Hours) Vital Signs Temp Pulse Pulse Resp BP BP BP 12/16/22 19:07 76 14 110/59 L 12/16/22 18:17 79 20 101/57 L 12/16/22 15:54 82 12/16/22 15:40 37.1 C 82 106/42 L 12/16/22 15:40 37.1 C 82 18 106/42 L Pulse Ox O2 Del Method 12/16/22 19:07 96 Room Air 12/16/22 18:17 95 Room Air 12/16/22 15:54 12/16/22 15:40 12/16/22 15:40 95 Room Air Laboratory Results Laboratory Results WBC 5.59 K/ul (4.8-10.8) 12/16/22 16:13 RBC 3.98 M/uL (4.20-5.40) L 12/16/22 16:13 Hgb 9.1 g/dl (12.0-16.0) L 12/16/22 16:13 Hct 30.6 % (37.0-47.0) L 12/16/22 16:13 MCV 76.9 fL (80.0-100.0) L 12/16/22 16:13 MCH 22.9 pg (25.0-34.0) L 12/16/22 16:13 MCHC 29.7 g/dL (32.0-36.0) L 12/16/22 16:13 RDW Std Deviation 49.1 fL (36.4-46.3) H 12/16/22 16:13 RDW Coeff of Alexia 17.5 % (11.5-14.5) H 12/16/22 16:13 Plt Count 381 K/uL (130-400) 12/16/22 16:13 MPV 8.8 fL (9.4-12.4) L 12/16/22 16:13 Immature Gran % (Auto) 0.2 % 12/16/22 16:13 Neut % (Auto) 49.0 % 12/16/22 16:13 Lymph % (Auto) 38.1 % 12/16/22 16:13 Walsh % (Auto) 6.8 % 12/16/22 16:13 Eos % (Auto) 5.2 % 12/16/22 16:13 Baso % (Auto) 0.7 % 12/16/22 16:13 Neut # (Auto) 2.74 K/uL (1.40-6.50) 12/16/22 16:13 Lymph # (Auto) 2.13 K/uL (1.2-3.4) 12/16/22 16:13 Walsh # (Auto) 0.38 K/uL (0.11-0.59) 12/16/22 16:13 Eos # (Auto) 0.29 K/uL (0-0.50) 12/16/22 16:13 Baso # (Auto) 0.04 K/uL (0-0.2) 12/16/22 16:13 Immature Gran # (Auto) 0.01 K/uL (0.01-0.20) 12/16/22 16:13 PT 10.7 Seconds (9.0-12.0) 12/16/22 16:13 INR 1.0 (0.9-1.1) 12/16/22 16:13 APTT 29.0 Seconds (21.0-31.0) 12/16/22 16:13 PTT Ratio 1.0 12/16/22 16:13 VBG pH 7.41 (7.36-7.41) 12/16/22 17:10 VBG pCO2 51 mmHg (38-50) H 12/16/22 17:10 VBG pO2 57 mmHg 12/16/22 17:10 VBG HCO3 32 mmol/L 12/16/22 17:10 VBG O2 Saturation 90.2 % 12/16/22 17:10 VBG Base Excess 6.3 mEq/L 12/16/22 17:10 Sodium 138 mmol/L (136-145) 12/16/22 16:13 Potassium 3.9 mmol/L (3.5-5.1) 12/16/22 16:13 Chloride 102 mmol/L (98-107) 12/16/22 16:13 Carbon Dioxide 31 mmol/L (21-32) 12/16/22 16:13 Anion Gap 5 (3-11) 12/16/22 16:13 BUN 12 mg/dl (6-23) 12/16/22 16:13 Creatinine 0.94 mg/dl (0.6-1.2) 12/16/22 16:13 Est Cr Clr Drug Dosing 138.2 ml/min 12/16/22 16:13 Est GFR ( Amer) 90.5 ml/min 12/16/22 16:13 Est GFR (Non-Af Amer) 78.1 ml/min 12/16/22 16:13 BUN/Creatinine Ratio 12.8 (10-20) 12/16/22 16:13 Glucose 78 mg/dl (70-99(Fasting)) 12/16/22 16:13 Lactate 1.3 mmol/L (0.4-2.0) 12/16/22 17:10 Calcium 8.5 mg/dl (8.6-10.3) L 12/16/22 16:13 Magnesium 1.8 mg/dl (1.7-2.4) 12/16/22 16:13 Total Bilirubin 0.2 mg/dl (0.2-1.0) 12/16/22 16:13 AST 14 U/L (13-39) 12/16/22 16:13 ALT 10 U/L (7-52) 12/16/22 16:13 Alkaline Phosphatase 82 U/L (34-104) 12/16/22 16:13 Ammonia 29.0 umol/L (18-72) 12/16/22 17:10 Troponin I High Sens 2.4 pg/ml (0-14) 12/16/22 16:13 C-Reactive Protein 1.76 mg/dl (0-0.5) H 12/16/22 16:13 B-Natriuretic Peptide 53 pg/ml (0-100) 12/16/22 16:13 Total Protein 7.6 gm/dl (6.0-8.3) 12/16/22 16:13 Albumin 3.3 gm/dl (3.4-5.0) L 12/16/22 16:13 Globulin 4.3 gm/dl (2.5-4.0) H 12/16/22 16:13 Albumin/Globulin Ratio 0.8 (0.9-2) L 12/16/22 16:13 Procalcitonin < 0.05 ng/ml (0-0.5) 12/16/22 16:13 HCG, Qual Negative (Negative) 12/16/22 16:13 Urine Color Dark Yellow 12/16/22 18:15 Urine Appearance Clear (Clear) 12/16/22 18:15 Urine pH 6.0 (4.5-7.5) 12/16/22 18:15 Ur Specific [place] 1.028 (1.000-1.030) 12/16/22 18:15 Urine Protein Negative (Negative) 12/16/22 18:15 Urine Glucose (UA) Negative (Negative) 12/16/22 18:15 Urine Ketones Trace (Negative) H 12/16/22 18:15 Urine Blood Negative (Negative) 12/16/22 18:15 Urine Nitrite Negative (Negative) 12/16/22 18:15 Urine Bilirubin Negative (Negative) 12/16/22 18:15 Urine Urobilinogen Negative (Negative) 12/16/22 18:15 Ur Leukocyte Esterase Negative (Negative) 12/16/22 18:15 Urine Opiates Screen Neg (Neg) 12/16/22 18:15 Ur Methadone, Qual Pos (Neg) H 12/16/22 18:15 Urine Barbiturates Neg (Neg) 12/16/22 18:15 Ur Phencyclidine (PCP) Neg (Neg) 12/16/22 18:15 U Amphetamin/Meth Scrn Neg (Neg) 12/16/22 18:15 MDMA (Ecstasy) Screen Pos (Neg) H 12/16/22 18:15 U Benzodiazepines Scrn Pos (Neg) H 12/16/22 18:15 Ur Cocaine Metabolite Neg (Neg) 12/16/22 18:15 U Marijuana (THC) Screen Neg (Neg) 12/16/22 18:15 SARS-CoV-2 (PCR) NEGATIVE (Negative) 12/16/22 19:20 Influenza Type A (PCR) Negative (Neg) 12/16/22 19:20 Influenza Type B (PCR) Negative (Neg) 12/16/22 19:20 RSV (RT-PCR) Negative (Neg) 12/16/22 19:20 Impressions Chest X-Ray 12/16/22 16:50 XR chest 1V portable CLINICAL HISTORY: Dyspnea TECHNIQUE: Single frontal radiograph of the chest was obtained. Comparison: Comparison is made to chest radiograph 11/19/2022 FINDINGS: Exam is limited by underpenetration. Cardiomegaly is noted. Prominence and cephalization of the vasculature is seen. No evidence of pleural effusion or pneumothorax. IMPRESSION: Cardiomegaly and mild pulmonary edema. ACT 112: Negative or not required by law. Electronically signed by: Hiro Santoyo M.D. 12/16/2022 6:[address] 12/16/22 18:05 CT head/brain wo con CLINICAL HISTORY: ams Technique: Contiguous axial CT images of the head were acquired from the base of the skull to the vertex without intravenous contrast administration. Images were viewed in brain, subdural and bone windows. Automated dose lowering techniques and/or adjustment according to patient size were utilized for this exam. Comparison: Comparison is made to CT head 533 Findings: The ventricles, basal cisterns, and cerebral sulci are normal. There is no acute intracranial hemorrhage or evidence of acute territorial infarction. Neither mass effect, shift of the midline structures, nor abnormal extra-axial fluid collections are shown. Chronic encephalomalacia from old right MCA infarct is unchanged in appearance. Imaged portions of the paranasal sinuses and mastoid air cells are clear. The orbits appear normal. There are no acute fractures of the calvaria or scalp swe lling. Impression: No acute intracranial hemorrhage, no evidence of acute territorial infarction or other acute intracranial disease process. ACT 112: Negative or not required by law. Electronically signed by: Hiro Santoyo M.D. 12/16/2022 6:54 PM Code Status & VTE Plan VTE Prophylaxis Plan VTE Prophylaxis will be ordered: Yes PG Care Time/CCT Total # of Minutes Spent Total Time Spent with Patient: Total time spent is greater than 50% in coordination of care (as documented) at patient's floor/unit and/or counseling patient: Coding Level of Care Code 27783 INT INP/OBS CARE 3/75MIN Diagnoses Edema, peripheral R60.9 S/P mitral valve replacement with bioprosthetic valve Z95.3 Opioid use disorder, severe, in sustained remission F11.21 MENDEZ (generalized anxiety disorder) F41.1 Anemia D64.9
--- NOTE | 2022-12-16 20:54 | Pharmacy Report ---
Pharmacy Progress Note - Date of Service December 16, 2022 - Progress Note Methadone Dose Clarification: Patient receives methadone from [facility] - Dose: 72 mg daily - Last clinic visit: 12/13/22 - Additional doses obtained from clinic: two for 12/14 and 12/15 - Next clinic visit: 12/16/22 Thank you for engaging the clinical pharmacy consult service in the care of this patient. Please let us know if we can be of further assistance.
[2022-12-16] MEDS ORDERED: METHADONE ORAL SOLN 2 MG/ML PO STA ×2 (21:02→21:58)
[2022-12-16] MEDS ORDERED: PATIENT'S OWN CONTROLLED MED 1 PO SCH (21:30)
[2022-12-16] MEDS ORDERED: IPRATROPIUM BROMIDE/ALBUTEROL respimat INH INH SCH (21:36)
[2022-12-16] MEDS ORDERED: METHADONE HCL 10 MG TAB PO SCH (21:36)
[2022-12-16] MEDS ORDERED: ONDANSETRON INJ 2 MG/ML 2 ML VIAL IV PRN (21:36)
[2022-12-16] MEDS ORDERED: PATIENT'S OWN CONTROLLED MED 1 PO STA (21:58)
[2022-12-16] MEDS: traZODone HCL 50 MG TAB PO SCH (22:55)
[2022-12-16] MEDS: clonazePAM 0.5 MG TAB PO SCH (22:55)
[2022-12-16] MEDS: MELATONIN 3 MG TAB PO SCH (22:55)
[2022-12-16] MEDS: KETOCONAZOLE 2% CR 15 GM TUBE EXT SCH (22:55)
[2022-12-16] MEDS: APIXABAN 5 MG TABLET PO SCH (22:56)
[2022-12-16] MEDS: GABAPENTIN 600 MG TAB PO SCH (22:56)
[2022-12-16] MEDS: BACLOFEN 10 MG TAB PO SCH (22:56)
[2022-12-16] MEDS: METOPROLOL TARTRATE 25 MG TAB PO SCH (22:57)
[2022-12-16] MEDS: NICOTINE 7 MG/24 HR TDSY TD SCH (22:58)
[2022-12-16] MEDS: Albuterol HFA 8 GM Inhaler (Combivent Respimat P&T Subs) INH SCH (23:24)
[2022-12-16] MEDS: Ipratropium HFA Inhaler (Combivent Respimat P&T Subs) INH SCH (23:24)
[2022-12-17] MEDS: GABAPENTIN 600 MG TAB PO SCH ×3 (05:49→20:57)
[2022-12-17] MEDS: ACETAMINOPHEN 325 MG TAB PO PRN (05:51)
[2022-12-17] MEDS ORDERED: PERFLUTREN LIPID MICROSPHERE (DEFINITY) IV ONE (07:02)
[2022-12-17] MEDS: Ipratropium HFA Inhaler (Combivent Respimat P&T Subs) INH SCH ×3 (07:25→19:26)
[2022-12-17] MEDS: Albuterol HFA 8 GM Inhaler (Combivent Respimat P&T Subs) INH SCH ×3 (07:25→19:25)
[2022-12-17 08:07] LABS: Hematocrit (blood only) 34.7 % (37.0-47.0); Hemoglobin 9.8 g/dl (12.0-16.0); Mean Corpuscular Hemoglobin 22.8 pg (25.0-34.0); Mean Corpuscular Hgb Conc 28.2 g/dL (32.0-36.0); Mean Corpuscular Volume 80.9 fL (80.0-100.0); Mean Platelet Volume 8.9 fL (9.4-12.4); Platelet Count 378 K/uL (130-400); RDW Coefficient of Variation 17.5 % (11.5-14.5); Red Blood Count 4.29 M/uL (4.20-5.40); White Blood Count 4.88 K/ul (4.8-10.8)
[2022-12-17 08:18] LABS: Calcium 8.7 mg/dl (8.6-10.3); Potassium 4.1 mmol/L (3.5-5.1)
[2022-12-17 08:24] LABS: BUN Creatinine Ratio 13.3 (10-20); Est GFR (Non-African American) 74.2 ml/min
[2022-12-17 08:55] LABS: Thyroid Stimulating Hormone 8.846 uIu/ml (0.300-4.500)
[2022-12-17 08:59] LABS: T4 Free Thyroxine 0.6 ng/dl (0.61-1.60)
[2022-12-17] MEDS ORDERED: FUROSEMIDE 40 MG TAB PO SCH (09:00)
--- NOTE | 2022-12-17 09:12 | XCELERA ---
[id number]
[2022-12-17] MEDS: FUROSEMIDE 40 MG/4 ML VIAL IV SCH ×2 (10:18→20:55)
[2022-12-17] MEDS: ASPIRIN 81 MG ECTAB PO SCH (10:19)
[2022-12-17] MEDS: KETOCONAZOLE 2% CR 15 GM TUBE EXT SCH ×2 (10:19→20:55)
[2022-12-17] MEDS: SERTRALINE HCL 100 MG TABLET PO SCH (10:19)
[2022-12-17] MEDS: BACLOFEN 10 MG TAB PO SCH ×2 (10:20→20:55)
[2022-12-17] MEDS: APIXABAN 5 MG TABLET PO SCH ×2 (10:20→20:55)
[2022-12-17] MEDS: ' INH SCH (10:20)
[2022-12-17] MEDS: NICOTINE 7 MG/24 HR TDSY TD SCH (10:22)
[2022-12-17] MEDS: METOPROLOL TARTRATE 25 MG TAB PO SCH ×2 (10:22→20:56)
--- NOTE | 2022-12-17 10:51 | Electrocardiogram Report ---
Test Reason : Blood Pressure : / mmHG Vent. Rate : 080 BPM Atrial Rate : 080 BPM P-R Int : 146 ms QRS Dur : 090 ms QT Int : 412 ms P-R-T Axes : 056 052 046 degrees QTc Int : 475 ms Normal sinus rhythm Low voltage QRS Borderline ECG When compared with ECG of 19-NOV-2022 15:41, No significant change was found Confirmed by Shankar Johnson ([id number]) on 12/17/2022 10:51:31 AM Referred By: REFERRED SELF Confirmed By:Shankar Johnson
--- NOTE | 2022-12-17 12:10 | Hospitalist Progress Note ---
Date of Service December 17, 2022 Assessment & Plan (1) Edema, peripheral: Plan: This appears to be due to acute diastolic CHF. She is now on intravenous Lasix. Cardiac echo will be repeated and is pending. She had a previous cardiac echo done November 20 which revealed normal ejection fraction. She has a known bioprosthetic mitral valve replacement due to previous endocarditis and is now on Eliquis therapy. She has been admitted from observation. (2) S/P mitral valve replacement with bioprosthetic valve: Plan: Patient had Medtronic valve placed 07/23/22. Check 2D echo. Continue Apixaban (3) Opioid use disorder, severe, in sustained remission: Plan: Patient with opioid use disorder in remission x > 10 months. She is on chronic methadone therapy which she receives from [facility]. Continue Methadone 10mg po daily (4) MENDEZ (generalized anxiety disorder): Plan: Chronic. Controlled. Continue Clonazepam, Sertraline, Trazodone (5) Anemia: Plan: With history of thalassemia. H/H near baseline. No active bleed. Serial labs (6) Primary hypothyroidism: Plan: TSH is elevated and free T4 is low. Thyroid replacement therapy has been started Plan She will probably need to return to [facility] at discharge. OT and PT evaluations have been ordered Admission and Anticipated Discharge Date Admission Date: December 17, 2022 Subjective Alert and oriented. No acute distress. She appears to have acute diastolic CHF. She is now on parenteral Lasix therapy. Echo will be repeated. We will repeat chest x-ray again tomorrow, December 18. She appears to have primary hypothyroidism and levothyroxine has been started. She probably will need to return to [facility] at discharge Review of Systems Review of Systems: Constitutional-no fever or chills ENT-no blurred vision, no double vision, no epistaxis, no sore throat Respiratory-no cough, no wheezing. Shortness of breath with exertion Cardiac-no palpitations, no chest pain, no syncope GI-no nausea, vomiting, diarrhea, melena, hematochezia -no urinary retention, no urinary incontinence, no dysuria, no hematuria Musculoskeletal-significant edema bilateral lower extremities below the knees Skin-no bruising, no rashes, no pruritus Neuro-no isolated weakness, no paresthesia Psych-flat affect Physical Exam Physical Exam: General-alert and oriented x3, no fevers, no chills. Morbidly obese HEENT-head atraumatic and normocephalic, pupils equal and reactive to light, extraocular muscles intact Neck-no lymphadenopathy or thyromegaly, trachea midline Chest-bibasilar inspiratory rales. No wheezing Cardiac-regular rate and rhythm, normal S1 and S2, distant heart tones Abdomen-normal bowel sounds, nontender, no hepatosplenomegaly Extremities-2+ pitting edema bilateral lower extremities below the knees Neuro-cranial nerves II through XII intact, chronic left hemiparesis from previous CVA Psych-flat affect Results & Data Results & Data Vital Signs (Past 12 Hours) Vital Signs Temp Pulse Pulse Resp BP BP Pulse Ox 12/17/22 11:25 36.5 C 83 18 103/61 94 12/17/22 10:23 108/76 12/17/22 08:13 12/17/22 08:09 36.8 C 67 16 90/61 L 105/61 97 12/17/22 07:27 78 16 90 12/17/22 06:00 79 12/17/22 03:36 36.7 C 90 18 135/85 93 O2 Del Method 12/17/22 11:25 Room Air 12/17/22 10:23 12/17/22 08:13 Room Air 12/17/22 08:09 Room Air 12/17/22 07:27 Room Air 12/17/22 06:00 12/17/22 03:36 Room Air PG Care Time/CCT Total # of Minutes Spent Total Time Spent with Patient: Total time spent is greater than 50% in coordination of care (as documented) at patient's floor/unit and/or counseling patient: Coding Level of Care Code 85183 SUB INP/OBS CARE 3/50MIN Diagnoses Edema, peripheral R60.9 S/P mitral valve replacement with bioprosthetic valve Z95.3 Opioid use disorder, severe, in sustained remission F11.21 MENDEZ (generalized anxiety disorder) F41.1 Anemia D64.9 Primary hypothyroidism E03.9
[2022-12-17] MEDS: LEVOTHYROXINE SODIUM 100 MCG TABLET PO SCH (12:18)
[2022-12-17 12:48] LABS: A calco-baum cmplx NotReported Not Detected (NotDetected); Bact fragilis Not Reported Not Detected (NotDetected); C auris Not Reported Not Detected (NotDetected); Calbicans Not Reported Not Detected (NotDetected); Candida glabrata Not Reported Not Detected (NotDetected); Candida krusei Not Reported Not Detected (NotDetected); Cneoformans/gatti Not Reported Not Detected (NotDetected); Cparapsilosis Not Reported Not Detected (NotDetected); Ctropicalis Not Reported Not Detected (NotDetected); E cloacae compx Not Reported Not Detected (NotDetected); Efaecalis Not Reported Not Detected (NotDetected); Efaecium Not Reported Not Detected (NotDetected); Enterobacterales Not Reported Not Detected (NotDetected); Escherichia coli Not Reported Not Detected (NotDetected); H influenzae Not Reported Not Detected (NotDetected); K aerogenes Not Reported Not Detected (NotDetected); Koxytoca Not Reported Not Detected (NotDetected); Kpneumoniae grp Not Reported Not Detected (NotDetected); Lmonocyt Not Reported Not Detected (NotDetected); N meningitidis Not Reported Not Detected (NotDetected); P aeruginosa Not Reported Not Detected (NotDetected); Proteus spp Not Reported Not Detected (NotDetected); Salmonella spp Not Reported Not Detected (NotDetected); Smarcescens Not Reported Not Detected (NotDetected); Staph lugdunensis Not Reported Not Detected (NotDetected); Staph spp. Not Reported DETECTED (NotDetected); Staphaureus Not Reported Not Detected (NotDetected); Staphepi Not Reported DETECTED (NotDetected); Staphylococcus spp. DETECTED (NotDetected); Stenmaltophilia Not Reported Not Detected (NotDetected); Strep agal(GrpB) Not Reported Not Detected (NotDetected); Strep pneum Not Reported Not Detected (NotDetected); Strep pyog (GrpA) Not Reported Not Detected (NotDetected); Strep spp Not Reported Not Detected (NotDetected); mecAC Resistant Gene Not Detected (NotDetected)
[2022-12-17 12:56] LABS: Staphylococcus epidermidis DETECTED (NotDetected)
[2022-12-17] MEDS: hydrOXYzine HCl 25 MG TAB PO PRN (16:29)
[2022-12-17] MEDS: clonazePAM 0.5 MG TAB PO SCH (20:55)
[2022-12-17] MEDS: METHADONE ORAL SOLN 2 MG/ML PO SCH (20:56)
[2022-12-17] MEDS: MELATONIN 3 MG TAB PO SCH (20:56)
[2022-12-17] MEDS: PATIENT'S OWN CONTROLLED MED 1 PO SCH (20:56)
[2022-12-17] MEDS: traZODone HCL 50 MG TAB PO SCH (20:57)
[2022-12-18] MEDS: LEVOTHYROXINE SODIUM 100 MCG TABLET PO SCH (06:07)
[2022-12-18] MEDS: GABAPENTIN 600 MG TAB PO SCH ×3 (06:07→21:27)
--- NOTE | 2022-12-18 07:25 | XRay Report ---
XR chest 1V portable CLINICAL HISTORY: Congestive heart failure. COMPARISON STUDY: Chest radiograph December 16, 2022. FINDINGS: There are median sternotomy wires. Mild enlargement of the cardiac silhouette is unchanged. There is pulmonary vascular congestion with possible mild pulmonary edema. This is unchanged. Consol idation to suggest pneumonia. There is no pneumothorax or pleural effusion. IMPRESSION: No significant change in pulmonary vascular congestion with possible mild pulmonary deepa a. ACT 112: Negative or not required by law. Electronically signed by: Justin Valle M.D. 12/18/2022 7:24 AM
[2022-12-18] MEDS: Ipratropium HFA Inhaler (Combivent Respimat P&T Subs) INH SCH ×3 (07:34→19:40)
[2022-12-18] MEDS: Albuterol HFA 8 GM Inhaler (Combivent Respimat P&T Subs) INH SCH ×3 (07:35→19:40)
[2022-12-18] MEDS: KETOCONAZOLE 2% CR 15 GM TUBE EXT SCH ×2 (08:02→21:26)
[2022-12-18 08:08] LABS: BUN Creatinine Ratio 16.5 (10-20); Calcium 9.1 mg/dl (8.6-10.3); Creatinine Clr Calc Pharmacy 107.5 ml/min; Est GFR (African American) 75.6 ml/min; Est GFR (Non-African American) 65.3 ml/min; Potassium 3.9 mmol/L (3.5-5.1)
[2022-12-18] MEDS: ' INH SCH (08:12)
[2022-12-18] MEDS: NICOTINE 7 MG/24 HR TDSY TD SCH ×2 (08:12→08:16)
[2022-12-18] MEDS: APIXABAN 5 MG TABLET PO SCH ×2 (08:12→21:26)
[2022-12-18] MEDS: FUROSEMIDE 40 MG/4 ML VIAL IV SCH ×2 (08:12→21:28)
[2022-12-18] MEDS: METOPROLOL TARTRATE 25 MG TAB PO SCH ×2 (08:12→21:27)
[2022-12-18] MEDS: ASPIRIN 81 MG ECTAB PO SCH (08:13)
[2022-12-18] MEDS: SERTRALINE HCL 100 MG TABLET PO SCH (08:13)
[2022-12-18] MEDS: BACLOFEN 10 MG TAB PO SCH ×2 (08:13→21:25)
[2022-12-18] MEDS: ACETAMINOPHEN 325 MG TAB PO PRN (11:47)
[2022-12-18] MEDS: hydrOXYzine HCl 25 MG TAB PO PRN (11:49)
--- NOTE | 2022-12-18 14:44 | Hospitalist Progress Note ---
Date of Service December 18, 2022 Assessment & Plan (1) S/P mitral valve replacement with bioprosthetic valve: Plan: Stable. Continue Eliquis therapy (2) Opioid use disorder, severe, in sustained remission: Plan: Stable. Continue current medical management (3) MENDEZ (generalized anxiety disorder): Plan: Stable. Continue current medical management (4) Anemia: Plan: Chronic. Known history of thalassemia. No evidence of GI bleeding (5) Primary hypothyroidism: Plan: New diagnosis. She is now on Synthroid replacement therapy (6) Acute diastolic CHF (congestive heart failure): Plan: Continue Lasix diuresis. Monitor intake and output. Serial chest x-ray (7) Morbid obesity: Plan: BMI greater than 40. Weight loss recommended (8) Thalassemia: Plan: Causing chronic anemia. Plan Case management working on swing bed placement. Parenteral Lasix will be switched to oral dosing at the time of discharge Admission and Anticipated Discharge Date Admission Date: December 17, 2022 Subjective Somnolent at the time of my rounds but easily awakened and oriented. Good diuretic response with parenteral Lasix. Recent cardiac echo reveals normal ejection fraction. Placement is becoming a problem. She was denied at [facility]. Case management is pursuing swing bed placement at [facility]. She is now on room air Review of Systems Review of Systems: Constitutional-no fever or chills ENT-no blurred vision, no double vision, no epistaxis, no sore throat Respiratory-no cough, no wheezing, no shortness of breath Cardiac-no palpitations, no chest pain, no syncope GI-no nausea, vomiting, diarrhea, melena, hematochezia -no urinary retention, no urinary incontinence, no dysuria, no hematuria Musculoskeletal-no joint pain, no muscle tenderness Skin-no bruising, no rashes, no pruritus Neuro-no isolated weakness, no paresthesia, no weakness Psych-no depression, no anxiety Physical Exam Physical Exam: General-alert and oriented x3, no fevers, no chills. Morbidly obese HEENT-head atraumatic and normocephalic, pupils equal and reactive to light, extraocular muscles intact Neck-no lymphadenopathy or thyromegaly, trachea midline Chest-diminished breath sounds bilaterally. No wheezing or rhonchi Cardiac-regular rate and rhythm, normal S1 and S2 Abdomen-normal bowel sounds, nontender, no hepatosplenomegaly Extremities-no cyanosis, clubbing Neuro-cranial nerves II through XII intact, motor and sensory function within normal limits, strength symmetrical , no focal deficits Psych-flat affect Results & Data Results & Data Vital Signs (Past 12 Hours) Vital Signs Temp Pulse Pulse Resp BP Pulse Ox O2 Del Method 12/18/22 12:15 84 18 Room Air 12/18/22 12:01 37.4 C 84 18 103/70 93 Room Air 12/18/22 11:52 37.4 C 84 18 103/70 93 Room Air 12/18/22 13:03 37.2 C 12/18/22 07:54 36.9 C 85 20 111/75 92 Room Air 12/18/22 07:35 16 94 Room Air 12/18/22 05:57 83 12/18/22 03:00 36.8 C 77 14 102/63 92 Room Air Laboratory Results 12/17/22 07:46 12/18/22 06:44 PG Care Time/CCT Total # of Minutes Spent Total Time Spent with Patient: Total time spent is greater than 50% in coordination of care (as documented) at patient's floor/unit and/or counseling patient: Coding Level of Care Code 50400 SUB INP/OBS CARE 3/50MIN Diagnoses S/P mitral valve replacement with bioprosthetic valve Z95.3 Opioid use disorder, severe, in sustained remission F11.21 MENDEZ (generalized anxiety disorder) F41.1 Anemia D64.9 Primary hypothyroidism E03.9 Acute diastolic CHF (congestive heart failure) I50.31 Morbid obesity E66.01 Thalassemia D56.9
[2022-12-18] MEDS: METHADONE ORAL SOLN 2 MG/ML PO SCH (21:25)
[2022-12-18] MEDS: clonazePAM 0.5 MG TAB PO SCH (21:25)
[2022-12-18] MEDS: traZODone HCL 50 MG TAB PO SCH (21:26)
[2022-12-18] MEDS: MELATONIN 3 MG TAB PO SCH (21:26)
[2022-12-18] MEDS: PATIENT'S OWN CONTROLLED MED 1 PO SCH (21:27)
[2022-12-19] MEDS: LEVOTHYROXINE SODIUM 100 MCG TABLET PO SCH (05:40)
[2022-12-19] MEDS: GABAPENTIN 600 MG TAB PO SCH ×3 (05:40→22:22)
[2022-12-19] MEDS: FUROSEMIDE 40 MG/4 ML VIAL IV SCH ×2 (07:36→22:22)
[2022-12-19] MEDS: APIXABAN 5 MG TABLET PO SCH ×2 (07:37→20:17)
[2022-12-19] MEDS: ASPIRIN 81 MG ECTAB PO SCH (07:37)
[2022-12-19] MEDS: SERTRALINE HCL 100 MG TABLET PO SCH (07:37)
[2022-12-19] MEDS: ' INH SCH (07:38)
[2022-12-19] MEDS: NICOTINE 7 MG/24 HR TDSY TD SCH (07:38)
[2022-12-19] MEDS: KETOCONAZOLE 2% CR 15 GM TUBE EXT SCH ×2 (07:38→20:16)
[2022-12-19] MEDS: BACLOFEN 10 MG TAB PO SCH ×2 (07:41→20:17)
[2022-12-19] MEDS: Albuterol HFA 8 GM Inhaler (Combivent Respimat P&T Subs) INH SCH ×3 (08:10→19:05)
[2022-12-19] MEDS: Ipratropium HFA Inhaler (Combivent Respimat P&T Subs) INH SCH ×3 (08:11→19:06)
[2022-12-19 08:34] LABS: BUN Creatinine Ratio 17.9 (10-20); Blood Urea Nitrogen 19 mg/dl (6-23); Carbon Dioxide 30 mmol/L (21-32); Chloride 99 mmol/L (98-107); Creatinine Clr Calc Pharmacy 114.6 ml/min; Est GFR (African American) 78.2 ml/min; Est GFR (Non-African American) 67.5 ml/min; Glucose 81 mg/dl (70-99(Fasting))
[2022-12-19] MEDS: METOPROLOL TARTRATE 25 MG TAB PO SCH ×2 (09:59→20:18)
[2022-12-19 10:24] LABS: Potassium 3.6 mmol/L (3.5-5.1)
--- NOTE | 2022-12-19 12:55 | Hospitalist Progress Note ---
Date of Service December 19, 2022 Assessment & Plan (1) S/P mitral valve replacement with bioprosthetic valve: Plan: Stable. Continue Eliquis therapy (2) Opioid use disorder, severe, in sustained remission: Plan: Stable. Continue current medical management (3) MENDEZ (generalized anxiety disorder): Plan: Stable. Continue current medical management (4) Anemia: Plan: Chronic. Known history of thalassemia. No evidence of GI bleeding (5) Primary hypothyroidism: Plan: New diagnosis. She is now on Synthroid replacement therapy (6) Acute diastolic CHF (congestive heart failure): Plan: Continue Lasix diuresis. Monitor intake and output. Serial chest x-ray (7) Morbid obesity: Plan: BMI greater than 40. Weight loss recommended (8) Thalassemia: Plan: Causing chronic anemia. Plan Case management working on swing bed placement. Parenteral Lasix will be switched to oral dosing at the time of discharge Admission and Anticipated Discharge Date Admission Date: December 17, 2022 Subjective No distress. Flat affect. She remains on low-flow oxygen. Continued brisk diuresis with IV Lasix. We will repeat chest x-ray again tomorrow Review of Systems Review of Systems: Constitutional-no fever or chills ENT-no blurred vision, no double vision, no epistaxis, no sore throat Respiratory-no cough, no wheezing, no shortness of breath Cardiac-no palpitations, no chest pain, no syncope GI-no nausea, vomiting, diarrhea, melena, hematochezia -no urinary retention, no urinary incontinence, no dysuria, no hematuria Musculoskeletal-no joint pain, no muscle tenderness Skin-no bruising, no rashes, no pruritus Neuro-no isolated weakness, no paresthesia, no weakness Psych-no depression, no anxiety Physical Exam Physical Exam: General-alert and oriented x3, no fevers, no chills. Morbidly obese HEENT-head atraumatic and normocephalic, pupils equal and reactive to light, extraocular muscles intact Neck-no lymphadenopathy or thyromegaly, trachea midline Chest-diminished breath sounds bilaterally. No wheezing or rhonchi Cardiac-regular rate and rhythm, normal S1 and S2 Abdomen-normal bowel sounds, nontender, no hepatosplenomegaly Extremities-no cyanosis, clubbing Neuro-cranial nerves II through XII intact, motor and sensory function within normal limits, strength symmetrical , no focal deficits Psych-flat affect Results & Data Results & Data Vital Signs (Past 12 Hours) Vital Signs Temp Pulse Resp BP Pulse Ox O2 Del Method O2 Flow Rate 12/19/22 08:00 Nasal Cannula 2 12/19/22 08:04 36.7 C 78 18 95/58 L 92 Room Air 12/19/22 08:03 75 18 98 Nasal Cannula 2 12/19/22 08:12 98 Nasal Cannula 2 12/19/22 05:01 36.6 C 80 20 105/66 95 Room Air Laboratory Results 12/17/22 07:46 12/19/22 09:40 PG Care Time/CCT Total # of Minutes Spent Total Time Spent with Patient: Total time spent is greater than 50% in coordination of care (as documented) at patient's floor/unit and/or counseling patient: Coding Level of Care Code 89973 SUB INP/OBS CARE 3/50MIN Diagnoses S/P mitral valve replacement with bioprosthetic valve Z95.3 Opioid use disorder, severe, in sustained remission F11.21 MENDEZ (generalized anxiety disorder) F41.1 Anemia D64.9 Primary hypothyroidism E03.9 Acute diastolic CHF (congestive heart failure) I50.31 Morbid obesity E66.01 Thalassemia D56.9
[2022-12-19] MEDS: NICOTINE POLACRILEX 2 MG GUM MT PRN (16:44)
[2022-12-19] MEDS: clonazePAM 0.5 MG TAB PO SCH (20:16)
[2022-12-19] MEDS: MELATONIN 3 MG TAB PO SCH (20:17)
[2022-12-19] MEDS: METHADONE ORAL SOLN 2 MG/ML PO SCH (20:17)
[2022-12-19] MEDS: traZODone HCL 50 MG TAB PO SCH (20:18)
[2022-12-19] MEDS: PATIENT'S OWN CONTROLLED MED 1 PO SCH (20:20)
[2022-12-20] MEDS: LEVOTHYROXINE SODIUM 100 MCG TABLET PO SCH (06:09)
[2022-12-20] MEDS: GABAPENTIN 600 MG TAB PO SCH ×3 (06:09→21:53)
[2022-12-20] MEDS: Ipratropium HFA Inhaler (Combivent Respimat P&T Subs) INH SCH ×3 (07:25→19:25)
[2022-12-20] MEDS: Albuterol HFA 8 GM Inhaler (Combivent Respimat P&T Subs) INH SCH ×3 (07:26→19:25)
[2022-12-20 07:46] LABS: BUN Creatinine Ratio 21.1 (10-20); Calcium 9.1 mg/dl (8.6-10.3); Creatinine Clr Calc Pharmacy 115.9 ml/min; Est GFR (African American) 75.6 ml/min; Est GFR (Non-African American) 65.3 ml/min; Potassium 3.8 mmol/L (3.5-5.1)
--- NOTE | 2022-12-20 07:50 | XRay Report ---
XR chest 1V portable CLINICAL HISTORY: Congestive heart failure. COMPARISON STUDY: Chest radiograph December 18, 2022. FINDINGS: Cardiomegaly and median sternotomy wires are noted. Interstitial thickening has slightly in creased. No consolidation is identified. No pneumothorax or pleural effusion is identified. IMPRESSION: Mild interstitial pulmonary edema, slightly increased since prior study. ACT 112: Negative or not required by law. Electronically signed by: Justin Valle M.D. 12/20/2022 7:49 AM
[2022-12-20] MEDS: BACLOFEN 10 MG TAB PO SCH ×2 (09:06→20:19)
[2022-12-20] MEDS: ASPIRIN 81 MG ECTAB PO SCH (09:06)
[2022-12-20] MEDS: METOPROLOL TARTRATE 25 MG TAB PO SCH ×2 (09:06→20:20)
[2022-12-20] MEDS: ' INH SCH (09:07)
[2022-12-20] MEDS: SERTRALINE HCL 100 MG TABLET PO SCH (09:07)
[2022-12-20] MEDS: NICOTINE 7 MG/24 HR TDSY TD SCH (09:08)
[2022-12-20] MEDS: APIXABAN 5 MG TABLET PO SCH ×2 (09:08→20:19)
[2022-12-20] MEDS: FUROSEMIDE 40 MG/4 ML VIAL IV SCH ×2 (09:08→20:19)
[2022-12-20] MEDS: KETOCONAZOLE 2% CR 15 GM TUBE EXT SCH ×2 (09:09→20:20)
[2022-12-20] MEDS: NICOTINE POLACRILEX 2 MG GUM MT PRN (09:19)
--- NOTE | 2022-12-20 12:14 | Hospitalist Progress Note ---
Date of Service December 20, 2022 Assessment & Plan (1) S/P mitral valve replacement with bioprosthetic valve: Plan: Stable. Continue Eliquis therapy (2) Opioid use disorder, severe, in sustained remission: Plan: Stable. Continue current medical management (3) MENDEZ (generalized anxiety disorder): Plan: Stable. Continue current medical management (4) Anemia: Plan: Chronic. Known history of thalassemia. No evidence of GI bleeding (5) Primary hypothyroidism: Plan: New diagnosis. She is now on Synthroid replacement therapy (6) Acute diastolic CHF (congestive heart failure): Plan: Continue Lasix diuresis. Monitor intake and output. Serial chest x-ray (7) Morbid obesity: Plan: BMI greater than 40. Weight loss recommended (8) Thalassemia: Plan: Causing chronic anemia. Plan Case management working on swing bed placement. Parenteral Lasix will be switched to oral dosing at the time of discharge Admission and Anticipated Discharge Date Admission Date: December 17, 2022 Subjective Alert. Flat affect. No new problems. She continues on intravenous Lasix. Chest x-ray today, December 20, was read as mild pulmonary edema. She is on room air. We will continue IV Lasix while hospitalized then switch to oral dosing at discharge Review of Systems Review of Systems: Constitutional-no fever or chills ENT-no blurred vision, no double vision, no epistaxis, no sore throat Respiratory-no cough, no wheezing, no shortness of breath Cardiac-no palpitations, no chest pain, no syncope GI-no nausea, vomiting, diarrhea, melena, hematochezia -no urinary retention, no urinary incontinence, no dysuria, no hematuria Musculoskeletal-no joint pain, no muscle tenderness Skin-no bruising, no rashes, no pruritus Neuro-no isolated weakness, no paresthesia, no weakness Psych-no depression, no anxiety Physical Exam Physical Exam: General-alert and oriented x3, no fevers, no chills. Morbidly obese HEENT-head atraumatic and normocephalic, pupils equal and reactive to light, extraocular muscles intact Neck-no lymphadenopathy or thyromegaly, trachea midline Chest-diminished breath sounds bilaterally. No wheezing or rhonchi Cardiac-regular rate and rhythm, normal S1 and S2 Abdomen-normal bowel sounds, nontender, no hepatosplenomegaly Extremities-no cyanosis, clubbing Neuro-cranial nerves II through XII intact, motor and sensory function within normal limits, strength symmetrical , no focal deficits Psych-flat affect Results & Data Results & Data Vital Signs (Past 12 Hours) Vital Signs Temp Pulse Pulse Resp BP Pulse Ox O2 Del Method 12/20/22 11:48 36.8 C 77 18 97/58 L 92 Room Air 12/20/22 08:00 Room Air 12/20/22 08:00 79 12/20/22 07:29 36.7 C 83 20 116/79 94 Room Air 12/20/22 07:26 85 18 97 Room Air 12/20/22 02:32 36.7 C 76 18 110/69 91 Room Air Laboratory Results 12/17/22 07:46 12/20/22 07:02 PG Care Time/CCT Total # of Minutes Spent Total Time Spent with Patient: Total time spent is greater than 50% in coordination of care (as documented) at patient's floor/unit and/or counseling patient: Coding Level of Care Code 40585 SUB INP/OBS CARE 2/35MIN Diagnoses S/P mitral valve replacement with bioprosthetic valve Z95.3 Opioid use disorder, severe, in sustained remission F11.21 MENDEZ (generalized anxiety disorder) F41.1 Anemia D64.9 Primary hypothyroidism E03.9 Acute diastolic CHF (congestive heart failure) I50.31 Morbid obesity E66.01 Thalassemia D56.9
[2022-12-20] MEDS: hydrOXYzine HCl 25 MG TAB PO PRN (18:28)
[2022-12-20] MEDS: clonazePAM 0.5 MG TAB PO SCH (20:19)
[2022-12-20] MEDS: MELATONIN 3 MG TAB PO SCH (20:20)
[2022-12-20] MEDS: METHADONE ORAL SOLN 2 MG/ML PO SCH (20:20)
[2022-12-20] MEDS: PATIENT'S OWN CONTROLLED MED 1 PO SCH (20:21)
[2022-12-20] MEDS: traZODone HCL 50 MG TAB PO SCH (20:21)
[2022-12-21] MEDS: GABAPENTIN 600 MG TAB PO SCH ×3 (05:22→23:21)
[2022-12-21] MEDS: LEVOTHYROXINE SODIUM 100 MCG TABLET PO SCH (05:35)
[2022-12-21 07:27] LABS: BUN Creatinine Ratio 21.6 (10-20); Calcium 9.1 mg/dl (8.6-10.3); Creatinine Clr Calc Pharmacy 118.1 ml/min; Est GFR (Non-African American) 70.7 ml/min; Potassium 3.3 mmol/L (3.5-5.1)
[2022-12-21] MEDS: Albuterol HFA 8 GM Inhaler (Combivent Respimat P&T Subs) INH SCH ×3 (07:27→19:19)
[2022-12-21] MEDS: Ipratropium HFA Inhaler (Combivent Respimat P&T Subs) INH SCH ×3 (07:28→19:20)
[2022-12-21] MEDS: ASPIRIN 81 MG ECTAB PO SCH (08:44)
[2022-12-21] MEDS: ' INH SCH (08:44)
[2022-12-21] MEDS: NICOTINE 7 MG/24 HR TDSY TD SCH (08:44)
[2022-12-21] MEDS: BACLOFEN 10 MG TAB PO SCH ×2 (08:59→20:44)
[2022-12-21] MEDS: APIXABAN 5 MG TABLET PO SCH ×2 (08:59→20:44)
[2022-12-21] MEDS: METOPROLOL TARTRATE 25 MG TAB PO SCH ×2 (08:59→20:45)
[2022-12-21] MEDS: SERTRALINE HCL 100 MG TABLET PO SCH (08:59)
[2022-12-21] MEDS: KETOCONAZOLE 2% CR 15 GM TUBE EXT SCH ×2 (09:00→20:45)
[2022-12-21] MEDS: FUROSEMIDE 40 MG/4 ML VIAL IV SCH ×2 (09:00→20:44)
[2022-12-21] MEDS: POTASSIUM CHLORIDE 10 MEQ TABCR PO SCH ×2 (10:49→20:46)
--- NOTE | 2022-12-21 12:52 | Hospitalist Progress Note ---
Date of Service December 21, 2022 Assessment & Plan (1) S/P mitral valve replacement with bioprosthetic valve: Plan: Stable. Continue Eliquis therapy (2) Opioid use disorder, severe, in sustained remission: Plan: Stable. Continue current medical management (3) MENDEZ (generalized anxiety disorder): Plan: Stable. Continue current medical management (4) Anemia: Plan: Chronic. Known history of thalassemia. No evidence of GI bleeding (5) Primary hypothyroidism: Plan: New diagnosis. She is now on Synthroid replacement therapy (6) Acute diastolic CHF (congestive heart failure): Plan: Continue Lasix diuresis. Monitor intake and output. Serial chest x-ray (7) Morbid obesity: Plan: BMI greater than 40. Weight loss recommended (8) Thalassemia: Plan: Causing chronic anemia. (9) Hypokalemia: Plan: Oral replacement ordered. Serial labs Plan Case management working on swing bed placement. [facility] remains a possibility. Parenteral Lasix will be switched to oral dosing at the time of discharge Admission and Anticipated Discharge Date Admission Date: December 17, 2022 Subjective Awake and alert. No new problems. Placement at [facility] remains a possibility. Oral potassium supplementation started for hypokalemia. Review of Systems Review of Systems: Constitutional-no fever or chills. Morbidly obese ENT-no blurred vision, no double vision, no epistaxis, no sore throat Respiratory-no cough, no wheezing, no shortness of breath Cardiac-no palpitations, no chest pain, no syncope GI-no nausea, vomiting, diarrhea, melena, hematochezia -no urinary retention, no urinary incontinence, no dysuria, no hematuria Musculoskeletal-no joint pain, no muscle tenderness Skin-no bruising, no rashes, no pruritus Neuro-no isolated weakness, no paresthesia, no weakness Psych-no depression, no anxiety Physical Exam Physical Exam: General-alert and oriented x3, no fevers, no chills. Morbidly obese HEENT-head atraumatic and normocephalic, pupils equal and reactive to light, extraocular muscles intact Neck-no lymphadenopathy or thyromegaly, trachea midline Chest-diminished breath sounds bilaterally. No wheezing or rhonchi Cardiac-regular rate and rhythm, normal S1 and S2 Abdomen-normal bowel sounds, nontender, no hepatosplenomegaly Extremities-no cyanosis, clubbing Neuro-cranial nerves II through XII intact, motor and sensory function within normal limits, strength symmetrical , no focal deficits Psych-flat affect Results & Data Results & Data Vital Signs (Past 12 Hours) Vital Signs Temp Pulse Pulse Resp BP Pulse Ox O2 Del Method 12/21/22 11:39 36.4 C L 73 18 96/61 L 96 Room Air 12/21/22 09:53 Room Air 12/21/22 07:35 36.8 C 73 20 108/67 95 Room Air 12/21/22 07:42 85 12/21/22 07:29 83 16 94 Room Air 12/21/22 03:09 36.6 C 64 18 128/74 93 Room Air 12/21/22 01:11 Room Air 12/21/22 01:11 79 Laboratory Results 12/17/22 07:46 12/21/22 06:49 PG Care Time/CCT Total # of Minutes Spent Total Time Spent with Patient: Total time spent is greater than 50% in coordination of care (as documented) at patient's floor/unit and/or counseling patient: Coding Level of Care Code 14448 SUB INP/OBS CARE 3/50MIN Diagnoses S/P mitral valve replacement with bioprosthetic valve Z95.3 Opioid use disorder, severe, in sustained remission F11.21 MENDEZ (generalized anxiety disorder) F41.1 Anemia D64.9 Primary hypothyroidism E03.9 Acute diastolic CHF (congestive heart failure) I50.31 Morbid obesity E66.01 Thalassemia D56.9 Hypokalemia E87.6
[2022-12-21] MEDS: hydrOXYzine HCl 25 MG TAB PO PRN (13:32)
[2022-12-21] MEDS: clonazePAM 0.5 MG TAB PO SCH (20:44)
[2022-12-21] MEDS: METHADONE ORAL SOLN 2 MG/ML PO SCH (20:45)
[2022-12-21] MEDS: MELATONIN 3 MG TAB PO SCH (20:45)
[2022-12-21] MEDS: PATIENT'S OWN CONTROLLED MED 1 PO SCH (20:46)
[2022-12-21] MEDS: traZODone HCL 50 MG TAB PO SCH (20:46)
[2022-12-22] MEDS: GABAPENTIN 600 MG TAB PO SCH ×3 (05:28→21:31)
[2022-12-22] MEDS: LEVOTHYROXINE SODIUM 100 MCG TABLET PO SCH (05:30)
[2022-12-22 07:26] LABS: BUN Creatinine Ratio 21.7 (10-20); Calcium 9.1 mg/dl (8.6-10.3); Creatinine Clr Calc Pharmacy 113.7 ml/min; Est GFR (African American) 78.2 ml/min; Est GFR (Non-African American) 67.5 ml/min; Potassium 3.4 mmol/L (3.5-5.1)
[2022-12-22] MEDS: Albuterol HFA 8 GM Inhaler (Combivent Respimat P&T Subs) INH SCH ×3 (07:28→19:18)
[2022-12-22] MEDS: Ipratropium HFA Inhaler (Combivent Respimat P&T Subs) INH SCH ×3 (07:28→19:18)
[2022-12-22] MEDS: KETOCONAZOLE 2% CR 15 GM TUBE EXT SCH ×2 (08:30→21:29)
[2022-12-22] MEDS: BACLOFEN 10 MG TAB PO SCH ×2 (08:33→21:29)
[2022-12-22] MEDS: METOPROLOL TARTRATE 25 MG TAB PO SCH ×2 (08:34→21:30)
[2022-12-22] MEDS: ASPIRIN 81 MG ECTAB PO SCH (08:34)
[2022-12-22] MEDS: APIXABAN 5 MG TABLET PO SCH ×2 (08:34→21:29)
[2022-12-22] MEDS: FUROSEMIDE 40 MG/4 ML VIAL IV SCH (08:34)
[2022-12-22] MEDS: POTASSIUM CHLORIDE 10 MEQ TABCR PO SCH ×2 (08:34→21:30)
[2022-12-22] MEDS: ' INH SCH (08:35)
[2022-12-22] MEDS: NICOTINE 7 MG/24 HR TDSY TD SCH (08:35)
[2022-12-22] MEDS: SERTRALINE HCL 100 MG TABLET PO SCH (08:35)
[2022-12-22] MEDS: hydrOXYzine HCl 25 MG TAB PO PRN (13:15)
--- NOTE | 2022-12-22 15:07 | Hospitalist Progress Note ---
Date of Service December 22, 2022 Assessment & Plan (1) S/P mitral valve replacement with bioprosthetic valve: Plan: Stable. Continue Eliquis therapy (2) Opioid use disorder, severe, in sustained remission: Plan: Stable. Continue current medical management (3) MENDEZ (generalized anxiety disorder): Plan: Stable. Continue current medical management (4) Anemia: Plan: Chronic. Known history of thalassemia. No evidence of GI bleeding (5) Primary hypothyroidism: Plan: New diagnosis. She is now on Synthroid replacement therapy (6) Acute diastolic CHF (congestive heart failure): Plan: Continue Lasix diuresis. Switched from parenteral to oral dosing today, December 22 . Monitor intake and output. Serial chest x-ray (7) Morbid obesity: Plan: BMI greater than 40. Weight loss recommended (8) Thalassemia: Plan: Causing chronic anemia. (9) Hypokalemia: Plan: Oral replacement ordered. Serial labs Plan Case management working on swing bed placement. [facility] remains a poss ibility. Admission and Anticipated Discharge Date Admission Date: December 17, 2022 Subjective Awake and alert. Talkative this morning. Parenteral Lasix switched to oral dosing. Potassium improved to 3.4. She remains on room air. Review of Systems Review of Systems: Constitutional-no fever or chills. Morbidly obese ENT-no blurred vision, no double vision, no epistaxis, no sore throat Respiratory-no cough, no wheezing, no shortness of breath Cardiac-no palpitations, no chest pain, no syncope GI-no nausea, vomiting, diarrhea, melena, hematochezia -no urinary retention, no urinary incontinence, no dysuria, no hematuria Musculoskeletal-no joint pain, no muscle tenderness Skin-no bruising, no rashes, no pruritus Neuro-no isolated weakness, no paresthesia, no weakness Psych-no depression, no anxiety Physical Exam Physical Exam: General-alert and oriented x3, no fevers, no chills. Morbidly obese HEENT-head atraumatic and normocephalic, pupils equal and reactive to light, ex traocular muscles intact Neck-no lymphadenopathy or thyromegaly, trachea midline Chest-diminished breath sounds bilaterally. No wheezing or rhonchi Cardiac-regular rate and rhythm, normal S1 and S2 Abdomen-normal bowel sounds, nontender, no hepatosplenomegaly Extremities-no cyanosis, clubbing Neuro-cranial nerves II through XII intact, motor and sensory function within normal limits, strength symmetrical , no focal deficits Psych-flat affect Results & Data Results & Data Vital Signs (Past 12 Hours) Vital Signs Temp Pulse Pulse Pulse Resp BP Pulse Ox 12/22/22 15:01 37.4 C 77 20 109/57 L 94 12/22/22 13:33 72 16 96 12/22/22 11:08 36.7 C 75 17 122/73 91 12/22/22 09:18 12/22/22 07:46 36.6 C 79 18 110/68 92 12/22/22 07:29 80 16 93 12/22/22 07:14 80 O2 Del Method 12/22/22 15:01 Room Air 12/22/22 13:33 Room Air 12/22/22 11:08 Room Air 12/22/22 09:18 Room Air 12/22/22 07:46 Room Air 12/22/22 07:29 Room Air 12/22/22 07:14 Laboratory Results 12/17/22 07:46 12/22/22 06:43 PG Care Time/CCT Total # of Minutes Spent Total Time Spent with Patient: Total time spent is greater than 50% in coordination of care (as documented) at patient's floor/unit and/or counseling patient: Coding Level of Care Code 85528 SUB INP/OBS CARE 2/35MIN Diagnoses S/P mitral valve replacement with bioprosthetic valve Z95.3 Opioid use disorder, severe, in sustained remission F11.21 MENDEZ (generalized anxiety disorder) F41.1 Anemia D64.9 Primary hypothyroidism E03.9 Acute diastolic CHF (congestive heart failure) I50.31 Morbid obesity E66.01 Thalassemia D56.9 Hypokalemia E87.6
[2022-12-22] MEDS: FUROSEMIDE 40 MG TAB PO SCH (16:53)
[2022-12-22] MEDS: MELATONIN 3 MG TAB PO SCH (21:29)
[2022-12-22] MEDS: clonazePAM 0.5 MG TAB PO SCH (21:29)
[2022-12-22] MEDS: PATIENT'S OWN CONTROLLED MED 1 PO SCH (21:30)
[2022-12-22] MEDS: METHADONE ORAL SOLN 2 MG/ML PO SCH (21:30)
[2022-12-22] MEDS: traZODone HCL 50 MG TAB PO SCH (21:31)
[2022-12-23] MEDS: GABAPENTIN 600 MG TAB PO SCH ×3 (06:24→19:52)
[2022-12-23] MEDS: LEVOTHYROXINE SODIUM 100 MCG TABLET PO SCH (06:24)
[2022-12-23] MEDS: Albuterol HFA 8 GM Inhaler (Combivent Respimat P&T Subs) INH SCH ×4 (07:28→20:06)
[2022-12-23] MEDS: Ipratropium HFA Inhaler (Combivent Respimat P&T Subs) INH SCH ×4 (07:28→20:06)
[2022-12-23] MEDS: METOPROLOL TARTRATE 25 MG TAB PO SCH ×2 (08:02→19:52)
[2022-12-23] MEDS: BACLOFEN 10 MG TAB PO SCH ×2 (08:02→19:51)
[2022-12-23] MEDS: ASPIRIN 81 MG ECTAB PO SCH (08:02)
[2022-12-23] MEDS: FUROSEMIDE 40 MG TAB PO SCH ×2 (08:03→16:47)
[2022-12-23] MEDS: APIXABAN 5 MG TABLET PO SCH ×2 (08:06→19:53)
[2022-12-23] MEDS: POTASSIUM CHLORIDE 10 MEQ TABCR PO SCH ×2 (08:06→19:53)
[2022-12-23] MEDS: KETOCONAZOLE 2% CR 15 GM TUBE EXT SCH ×2 (08:07→19:50)
[2022-12-23] MEDS: NICOTINE 7 MG/24 HR TDSY TD SCH (08:07)
[2022-12-23] MEDS: SERTRALINE HCL 100 MG TABLET PO SCH (08:07)
[2022-12-23] MEDS: ' INH SCH (08:07)
[2022-12-23 08:46] LABS: Calcium 9.1 mg/dl (8.6-10.3); Creatinine Clr Calc Pharmacy 119.9 ml/min; Est GFR (African American) 79.1 ml/min; Est GFR (Non-African American) 68.3 ml/min; Potassium 3.7 mmol/L (3.5-5.1)
[2022-12-23 09:33] LABS: 7-Aminoclonaz, Confirm 699 ng/mL (<25); Hydro-Alp Ur, GC/MS NEGATIVE ng/mL (<25); Hydroxyethylflurazepam, Conf NEGATIVE ng/mL (<50); Hydroxymidazolam Ur, GC/MS NEGATIVE ng/mL (<50); Hydroxytriazolam NEGATIVE ng/mL (<50); Lorazepam, Ur GC/MS NEGATIVE ng/mL (<50); MDA negative; MDEA negative; MDMA (Ecstasy) Urine, Confirm negative; Methadone, Ur Metabolite >10000 ng/mL (<100); Nordiazepam, Confirm NEGATIVE ng/mL (<50); Oxazepam Ur, GC/MS NEGATIVE ng/mL (<50); Temazepam, Confirm NEGATIVE ng/mL (<50)
[2022-12-23] MEDS: ACETAMINOPHEN 325 MG TAB PO PRN (10:44)
--- NOTE | 2022-12-23 12:55 | Hospitalist Progress Note ---
Date of Service December 23, 2022 Assessment & Plan (1) S/P mitral valve replacement with bioprosthetic valve: Plan: Stable. Continue Eliquis therapy (2) Opioid use disorder, severe, in sustained remission: Plan: Stable. Continue current medical management (3) MENDEZ (generalized anxiety disorder): Plan: Stable. Continue current medical management (4) Anemia: Plan: Chronic. Known history of thalassemia. No evidence of GI bleeding (5) Primary hypothyroidism: Plan: New diagnosis. She is now on Synthroid replacement therapy (6) Acute diastolic CHF (congestive heart failure): Plan: Continue Lasix diuresis. Switched from parenteral to oral dosing on December 22 . Monitor intake and output. Serial chest x-ray (7) Morbid obesity: Plan: BMI greater than 40. Weight loss recommended (8) Thalassemia: Plan: Causing chronic anemia. (9) Hypokalemia: Plan: Oral replacement ordered. Now corrected. Serial labs Plan The patient states that she now just wants to go home with her mother. Admission and Anticipated Discharge Date Admission Date: December 17, 2022 Subjective Alert and oriented. She now states that she might just go home with her mother rather than to wait for placement. Hypokalemia has been corrected. Synthroid is new for newly diagnosed primary hypothyroidism. She is now on oral Lasix therapy. Review of Systems Review of Systems: Constitutional-no fever or chills. Morbidly obese ENT-no blurred vision, no double vision, no epistaxis, no sore throat Respiratory-no cough, no wheezing, no shortness of breath Cardiac-no palpitations, no chest pain, no syncope GI-no nausea, vomiting, diarrhea, melena, hematochezia -no urinary retention, no urinary incontinence, no dysuria, no hematuria Musculoskeletal-no joint pain, no muscle tenderness Skin-no bruising, no rashes, no pruritus Neuro-no isolated weakness, no paresthesia, no weakness Psych-no depression, no anxiety Physical Exam 2 Physical Exam: General-alert and oriented x3, no fevers, no chills. Morbidly obese HEENT-head atraumatic and normocephalic, pupils equal and reactive to light, extraocular muscles intact Neck-no lymphadenopathy or thyromegaly, trachea midline Chest-diminished breath sounds bilaterally. No wheezing or rhonchi Cardiac-regular rate and rhythm, normal S1 and S2 Abdomen-normal bowel sounds, nontender, no hepatosplenomegaly Extremities-no cyanosis, clubbing Neuro-cranial nerves II through XII intact, motor and sensory function within normal limits, strength symmetrical , no focal deficits Psych-flat affect Results & Data Results & Data Vital Signs (Past 12 Hours) Vital Signs Temp Pulse Pulse Resp BP Pulse Ox O2 Del Method 12/23/22 10:55 36.4 C L 83 20 113/67 96 Room Air 12/23/22 08:59 Room Air 12/23/22 08:13 36.6 C 70 17 116/71 98 Room Air 12/23/22 07:29 84 16 92 Room Air 12/23/22 07:15 72 12/23/22 04:42 36.6 C 71 18 98/65 L 96 Room Air Laboratory Results 12/17/22 07:46 12/23/22 07:31 PG Care Time/CCT Total # of Minutes Spent Total Time Spent with Patient: Total time spent is greater than 50% in coordination of care (as documented) at patient's floor/unit and/or counseling patient: Coding Level of Care Code 01573 SUB INP/OBS CARE 2/35MIN Diagnoses S/P mitral valve replacement with bioprosthetic valve Z95.3 Opioid use disorder, severe, in sustained remission F11.21 MENDEZ (generalized anxiety disorder) F41.1 Anemia D64.9 Primary hypothyroidism E03.9 Acute diastolic CHF (congestive heart failure) I50.31 Morbid obesity E66.01 Thalassemia D56.9 Hypokalemia E87.6
[2022-12-23 17:16] LABS: Appearance Urine Cloudy (Clear); Bacteria Urine Automated 2+ (Negative); Bilirubin Urine Negative (Negative); Blood Urine 1+ (Negative); Color Urine Yellow; Epithelial Cell Urine Auto 20-30 /lpf (0-5); Glucose Urine UA Negative (Negative); Ketones Urine Trace (Negative); Leukocyte Esterase Urine 2+ (Negative); Nitrite Urine Negative (Negative); Protein Urine Negative (Negative); RBC Urine Automated 0-4 /hpf (0-4); Specific Gravity Urine 1.021 (1.000-1.030); Urobilinogen Urine Negative (Negative); WBC Urine Automated >30 /hpf (0-5)
[2022-12-23] MEDS: METHADONE ORAL SOLN 2 MG/ML PO SCH (19:47)
[2022-12-23] MEDS: clonazePAM 0.5 MG TAB PO SCH (19:48)
[2022-12-23] MEDS: MELATONIN 3 MG TAB PO SCH (19:51)
[2022-12-23] MEDS: traZODone HCL 50 MG TAB PO SCH (19:52)
[2022-12-23] MEDS: CIPROFLOXACIN 500 MG TAB PO SCH (19:55)
[2022-12-23] MEDS: PATIENT'S OWN CONTROLLED MED 1 PO SCH (19:56)
[2022-12-24] MEDS: GABAPENTIN 600 MG TAB PO SCH ×3 (05:54→22:18)
[2022-12-24] MEDS: LEVOTHYROXINE SODIUM 100 MCG TABLET PO SCH (05:54)
[2022-12-24] MEDS: Ipratropium HFA Inhaler (Combivent Respimat P&T Subs) INH SCH ×3 (07:27→20:02)
[2022-12-24] MEDS: Albuterol HFA 8 GM Inhaler (Combivent Respimat P&T Subs) INH SCH ×3 (07:27→20:01)
[2022-12-24] MEDS: APIXABAN 5 MG TABLET PO SCH ×2 (08:12→20:18)
[2022-12-24] MEDS: ' INH SCH (08:13)
[2022-12-24] MEDS: BACLOFEN 10 MG TAB PO SCH ×2 (08:13→20:19)
[2022-12-24] MEDS: SERTRALINE HCL 100 MG TABLET PO SCH (08:13)
[2022-12-24] MEDS: FUROSEMIDE 40 MG TAB PO SCH ×2 (08:13→16:44)
[2022-12-24] MEDS: NICOTINE 7 MG/24 HR TDSY TD SCH (08:14)
[2022-12-24] MEDS: CIPROFLOXACIN 500 MG TAB PO SCH ×2 (08:14→20:19)
[2022-12-24] MEDS: ASPIRIN 81 MG ECTAB PO SCH (08:14)
[2022-12-24] MEDS: METOPROLOL TARTRATE 25 MG TAB PO SCH ×2 (08:14→20:20)
[2022-12-24] MEDS: KETOCONAZOLE 2% CR 15 GM TUBE EXT SCH ×2 (08:15→20:20)
[2022-12-24] MEDS: POTASSIUM CHLORIDE 10 MEQ TABCR PO SCH ×2 (08:21→20:21)
[2022-12-24] MEDS: CYANOCOBALAMIN (B-12) 500 MCG TABLET PO SCH (09:18)
[2022-12-24 09:43] LABS: BUN Creatinine Ratio 21.6 (10-20); Blood Urea Nitrogen 22 mg/dl (6-23); Calcium 9.3 mg/dl (8.6-10.3); Carbon Dioxide 29 mmol/L (21-32); Chloride 100 mmol/L (98-107); Creatinine Clr Calc Pharmacy 124.8 ml/min; Est GFR (Non-African American) 70.7 ml/min; Glucose 197 mg/dl (70-99(Fasting))
[2022-12-24 10:09] LABS: Magnesium 1.9 mg/dl (1.7-2.4)
[2022-12-24 11:15] LABS: Appearance Urine Cloudy (Clear); Bilirubin Urine Negative (Negative); Blood Urine 3+ (Negative); Color Urine Yellow; Epithelial Cell Urine Auto >30 /lpf (0-5); Glucose Urine UA Negative (Negative); Ketones Urine Negative (Negative); Leukocyte Esterase Urine Trace (Negative); Nitrite Urine Negative (Negative); Protein Urine Negative (Negative); Specific Gravity Urine 1.021 (1.000-1.030); Urobilinogen Urine Negative (Negative); pH Urine 5.5 (4.5-7.5)
[2022-12-24 11:30] LABS: RBC Urine Automated >30 /hpf (0-4)
[2022-12-24 11:31] LABS: Bacteria Urine Automated 1+ (Negative)
[2022-12-24] MEDS: clonazePAM 0.5 MG TAB PO SCH (20:19)
[2022-12-24] MEDS: METHADONE ORAL SOLN 2 MG/ML PO SCH (20:20)
[2022-12-24] MEDS: MELATONIN 3 MG TAB PO SCH (20:20)
[2022-12-24] MEDS: traZODone HCL 50 MG TAB PO SCH (20:21)
[2022-12-24] MEDS: PATIENT'S OWN CONTROLLED MED 1 PO SCH (20:21)
--- NOTE | 2022-12-24 20:35 | Hospitalist Progress Note ---
Date of Service December 24, 2022 Assessment & Plan (1) Edema: Plan: Possibly 2nd to hypothyroidism (new diagnosis). Albumin 3.3 thus hypoalbuminemia causing such unlikely. u/a without proteinuria. no cirrhosis. Echo wnl with normal valve function and preserved EF; doubt her edema was due to diastolic dysfunction. Abilify + gabapentin can cause edema as well. Edema much improved s/p IV/PO lasix. Cont lasix 40mg BID. Trend BMP to ensure no over-diuresis. (2) S/P mitral valve replacement with bioprosthetic valve: Plan: Stable. Echo this admission with normal valve function. (3) Opioid use disorder, severe, in sustained remission: Plan: Cont methadone 72mg daily. (4) MENDEZ (generalized anxiety disorder): Plan: Cont usual meds (5) Anemia: Plan: Known history of thalassemia. No evidence of GI bleeding (6) Primary hypothyroidism: Plan: New diagnosis. TSH 8-11. FT4 is low. start synthroid 50mcg daily. repeat TSH 6 weeks. could have been contributing to edema. (7) Morbid obesity: Plan: BMI 57 (8) Thalassemia: Plan: with resulting chronic anemia. no Rx. (9) Hypokalemia: Plan: replaced resolved (10) Splenic abscess: Plan: Dx 11/19/22 after presenting with fever and generalized weakness to [facility]. CT a/p - 11cm heterogenous fluid collection in the spleen concerning for cyst vs abscess. She was treated with Vancomycin and Zosyn. [facility]. At [facility] she was evaluated by General Surgery. No surgical intervention was performed She was discharged on Augmentin x 7 days on 11/29/22; went to [facility] following Critical access hospital. No abdominal complaints today. No fevers. 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 will confirm with social work Admission and Anticipated Discharge Date Admission Date: December 17, 2022 Subjective patient reports that she ultimately will live with her mother but they need a ramp to be built as there is a steep set of steps to get into the home apparently a gentleman came to evaluate the house/property - going to build the ramp next 1-2 weeks??? she would be ok with rehab while awaiting the ramp to be built no other acute issues overnight tele overnight wnl she reports her edema is better moving bowels eating well Review of Systems Review of Systems: gen - no fevers cv - no chest pain pulm - no dyspnea GI - no pain Physical Exam Physical Exam: gen - morbidly obese, NAD neck - no obvious JVD mouth - MMM heart - RRR, s1 s2, no obvious murmur lungs - CTA b/l, decreased BS bases abd - soft NT ND BS+ ext - 1+ edema LLE; trace edema RLE; dependent edema left arm/hand; pulses feet 2+ b/l neuro - hemiparesis of LUE/LLE Results & Data Results & Data Vital Signs (Past 12 Hours) Vital Signs Temp Pulse Pulse Resp BP Pulse Ox O2 Del Method 12/24/22 19:29 36.9 C 88 16 110/69 94 Room Air 12/24/22 20:04 86 18 96 Room Air 12/24/22 15:39 78 12/24/22 15:28 36.5 C 77 18 110/68 97 Room Air 12/24/22 13:38 76 18 95 Room Air 12/24/22 11:18 36.4 C L 76 20 101/64 96 Room Air Laboratory Results Laboratory Results - last 48 hr 12/16/22 12/23/22 12/24/22 18:15 Unknown 08:42 Sodium TNP Potassium TNP Chloride 100 Carbon Dioxide 29 Anion Gap TNP BUN 22 Creatinine 1.02 Est Cr Clr Drug Dosing 124.8 Est GFR ( Amer) 82.0 Est GFR (Non-Af Amer) 70.7 BUN/Creatinine Ratio 21.6 H Glucose 197 H Calcium 9.3 Magnesium TNP Urine Color Yellow Urine Appearance Cloudy A Urine pH 7.0 Ur Specific [place] 1.021 Urine Protein Negative Urine Glucose (UA) Negative Urine Ketones Trace H Urine Blood 1+ H Urine Nitrite Negative Urine Bilirubin Negative Urine Urobilinogen Negative Ur Leukocyte Esterase 2+ H Urine WBC (Auto) >30 H Urine RBC (Auto) 0-4 U Hyaline Cast (Auto) 1-5 U Epithel Cells (Auto) 20-30 H Urine Bacteria (Auto) 2+ H U Methadone Metabolites >54210 H Ur Methadone Confirm 5320 H Urine MDEA negative MDMA negative Urine MDMA negative U OH-Alprazolam Confrm NEGATIVE 7-Amino Clonazepam 699 H Ur Nordiazepam Confirm NEGATIVE U OH-ethylflurazepam NEGATIVE U Lorazepam Cnf GC/MS NEGATIVE U Oxazepam Confm GC/MS NEGATIVE Ur Temazepam Confirm NEGATIVE U OH-Triazolam Confirm NEGATIVE U OH-Midazolam Confirm NEGATIVE Drug Screen Comment SEE NOTE 12/24/22 12/24/22 09:45 11:00 Sodium 139 Potassium 4.0 Chloride Carbon Dioxide Anion Gap BUN Creatinine Est Cr Clr Drug Dosing Est GFR ( Amer) Est GFR (Non-Af Amer) BUN/Creatinine Ratio Glucose Calcium Magnesium 1.9 Urine Color Yellow Urine Appearance Cloudy A Urine pH 5.5 Ur Specific [place] 1.021 Urine Protein Negative Urine Glucose (UA) Negative Urine Ketones Negative Urine Blood 3+ H Urine Nitrite Negative Urine Bilirubin Negative Urine Urobilinogen Negative Ur Leukocyte Esterase Trace H Urine WBC (Auto) 5-10 H Urine RBC (Auto) >30 H U Hyaline Cast (Auto) 1-5 U Epithel Cells (Auto) >30 H Urine Bacteria (Auto) 1+ H U Methadone Metabolites Ur Methadone Confirm Urine MDEA MDMA Urine MDMA U OH-Alprazolam Confrm 7-Amino Clonazepam Ur Nordiazepam Confirm U OH-ethylflurazepam U Lorazepam Cnf GC/MS U Oxazepam Confm GC/MS Ur Temazepam Confirm U OH-Triazolam Confirm U OH-Midazolam Confirm Drug Screen Comment PG Care Time/CCT Total # of Minutes Spent Total Time Spent with Patient: Total time spent is greater than 50% in coordination of care (as documented) at patient's floor/unit and/or counseling patient: Coding Level of Care Code 38930 SUB INP/OBS CARE 3/50MIN Diagnoses Edema R60.9 S/P mitral valve replacement with bioprosthetic valve Z95.3 Opioid use disorder, severe, in sustained remission F11.21 MENDEZ (generalized anxiety disorder) F41.1 Anemia D64.9 Primary hypothyroidism E03.9 Morbid obesity E66.01 Thalassemia D56.9 Hypokalemia E87.6 Splenic abscess D73.3 History of embolic stroke Z86.73 Bipolar disorder F31.9 Left spastic hemiparesis G81.14 B12 deficiency E53.8 Tobacco dependence F17.200 UTI (urinary tract infection) N39.0
[2022-12-25] MEDS: GABAPENTIN 600 MG TAB PO SCH ×3 (05:55→21:08)
[2022-12-25] MEDS: LEVOTHYROXINE SODIUM 50 MCG TABLET PO SCH (05:55)
[2022-12-25] MEDS: Albuterol HFA 8 GM Inhaler (Combivent Respimat P&T Subs) INH SCH ×3 (07:12→19:07)
[2022-12-25] MEDS: Ipratropium HFA Inhaler (Combivent Respimat P&T Subs) INH SCH ×3 (07:12→19:08)
[2022-12-25 07:37] LABS: BUN Creatinine Ratio 18.5 (10-20); Calcium 8.9 mg/dl (8.6-10.3); Creatinine Clr Calc Pharmacy 117.2 ml/min; Est GFR (African American) 76.5 ml/min; Potassium 3.6 mmol/L (3.5-5.1)
[2022-12-25] MEDS: APIXABAN 5 MG TABLET PO SCH ×2 (08:12→21:08)
[2022-12-25] MEDS: METOPROLOL TARTRATE 25 MG TAB PO SCH ×2 (08:12→21:07)
[2022-12-25] MEDS: FUROSEMIDE 40 MG TAB PO SCH ×2 (08:12→17:11)
[2022-12-25] MEDS: ASPIRIN 81 MG ECTAB PO SCH (08:12)
[2022-12-25] MEDS: CYANOCOBALAMIN (B-12) 500 MCG TABLET PO SCH (08:12)
[2022-12-25] MEDS: SERTRALINE HCL 100 MG TABLET PO SCH (08:12)
[2022-12-25] MEDS: POTASSIUM CHLORIDE 10 MEQ TABCR PO SCH ×2 (08:12→21:08)
[2022-12-25] MEDS: BACLOFEN 10 MG TAB PO SCH ×2 (08:13→21:08)
[2022-12-25] MEDS: ' INH SCH (08:13)
[2022-12-25] MEDS: CIPROFLOXACIN 500 MG TAB PO SCH (08:13)
[2022-12-25] MEDS: KETOCONAZOLE 2% CR 15 GM TUBE EXT SCH ×2 (08:20→21:09)
[2022-12-25] MEDS: NICOTINE 7 MG/24 HR TDSY TD SCH (08:22)
[2022-12-25 09:31] LABS: Estimated Average Glucose 114 mg/dl; Hemoglobin A1C 5.6 % (4.5-5.6)
[2022-12-25] MEDS ORDERED: ARIPiprazole 15 MG TAB PO SCH (09:45)
[2022-12-25] MEDS: ACETAMINOPHEN 325 MG TAB PO PRN (12:45)
[2022-12-25] MEDS: hydrOXYzine HCl 25 MG TAB PO PRN (12:48)
[2022-12-25] MEDS: AMOXICILLIN 500 MG CAP PO SCH (21:07)
[2022-12-25] MEDS: MELATONIN 3 MG TAB PO SCH (21:07)
[2022-12-25] MEDS: traZODone HCL 50 MG TAB PO SCH (21:07)
--- NOTE | 2022-12-25 21:10 | Hospitalist Progress Note ---
Date of Service December 25, 2022 Assessment & Plan (1) Edema: Plan: Possibly 2nd to hypothyroidism (new diagnosis). Albumin 3.3 thus hypoalbuminemia causing such unlikely. u/a without proteinuria. no cirrhosis. Echo wnl with normal valve function and preserved EF; doubt her edema was due to diastolic dysfunction. Abilify + gabapentin can cause edema as well. Edema much improved s/p IV/PO lasix. Cont lasix 40mg BID. Trend BMP to ensure no over-diuresis. (2) S/P mitral valve replacement with bioprosthetic valve: Plan: Stable. Echo this admission with normal valve function. (3) Opioid use disorder, severe, in sustained remission: Plan: Cont methadone 72mg daily. This is chronic and confirmed per pharmacy. (4) MENDEZ (generalized anxiety disorder): Plan: Cont usual meds (5) Anemia: Plan: Known history of thalassemia. No evidence of GI bleeding (6) Primary hypothyroidism: Plan: New diagnosis. TSH 8-11. FT4 is low. start synthroid 50mcg daily. repeat TSH 6 weeks. could have been contributing to edema. (7) Morbid obesity: Plan: BMI 57 (8) Thalassemia: Plan: with resulting chronic anemia. no Rx. (9) Hypokalemia: Plan: replaced resolved (10) Splenic abscess: Plan: Dx 11/19/22 after presenting with fever and generalized weakness to [facility]. CT a/p - 11cm heterogenous fluid collection in the spleen concerning for cyst vs abscess. She was treated with Vancomycin and Zosyn. Transferred to [facility] on 11/22/22. At [facility] she was evaluated by General Surgery. No surgical intervention was performed She was discharged on Augmentin x 7 days on 11/29/22; went to [facility] following [facility]. No abdominal complaints again today. 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 (12) Bipolar disorder: Plan: was supposed to be on abilify 15mg daily per records last refill was early November 2022 will resume this am cont gabapentin 600mg TID (13) Left spastic hemiparesis: Plan: 2nd to R MCA territory CVA in the past PT, OT (14) B12 deficiency: Plan: recent level <200 start oral b12 1000mcg daily (15) Tobacco dependence: Plan: nicoderm patch (16) UTI (urinary tract infection): Plan: lactobacillus usually I would not Rx such but she is symptomatic (Dysuria, etc) stop cipro start amoxicillin 500mg TID x 3 days then stop all abx Plan DVT proph - eliquis 5mg BID dispo - SNF for rehab then home with mother ultimately ?? Admission and Anticipated Discharge Date Admission Date: December 17, 2022 Subjective patient w/o any complaints except mild dysuria eating well no dyspnea no issues with edema she states that her mother told her today that the ramp at her mother's house will take 2 months to build still agreeable to rehab Review of Systems Review of Systems: pulm - no cough gi - no pain or nausea cv - no chest pain Physical Exam Physical Exam: gen - morbidly obese, NAD, sitting in recliner chair neck - no obvious JVD mouth - MMM heart - RRR, s1 s2, no murmur lungs - CTA b/l, decreased BS bases abd - soft NT ND BS+ ext - <1+ edema LLE; no edema RLE; dependent edema left arm/hand improved today; pulses feet 2+ b/l neuro - hemiparesis of LUE/LLE - strength about 3/5 LUE/LLE Results & Data Results & Data Vital Signs (Past 12 Hours) Vital Signs Temp Pulse Pulse Resp BP Pulse Ox O2 Del Method 12/25/22 19:37 36.5 C 79 18 100/64 95 Room Air 12/25/22 19:08 78 18 92 Room Air 12/25/22 17:18 77 12/25/22 15:43 36.9 C 71 18 101/64 93 Room Air 12/25/22 11:39 37.0 C 77 18 104/60 98 Room Air Laboratory Results Laboratory Results - last 24 hr 12/25/22 12/25/22 07:05 07:05 Sodium 139 Potassium 3.6 Chloride 101 Carbon Dioxide 34 H Anion Gap 4 BUN 20 Creatinine 1.08 Est Cr Clr Drug Dosing 117.2 Est GFR ( Amer) 76.5 Est GFR (Non-Af Amer) 66.0 BUN/Creatinine Ratio 18.5 Glucose 126 H Estimat Average Glucose 114 Hemoglobin A1c 5.6 Calcium 8.9 PG Care Time/CCT Total # of Minutes Spent Total Time Spent with Patient: Total time spent is greater than 50% in coordination of care (as documented) at patient's floor/unit and/or counseling patient: Coding Level of Care Code 18300 SUB INP/OBS CARE 2/35MIN Diagnoses Edema R60.9 S/P mitral valve replacement with bioprosthetic valve Z95.3 Opioid use disorder, severe, in sustained remission F11.21 MENDEZ (generalized anxiety disorder) F41.1 Anemia D64.9 Primary hypothyroidism E03.9 Morbid obesity E66.01 Thalassemia D56.9 Hypokalemia E87.6 Splenic abscess D73.3 History of embolic stroke Z86.73 Bipolar disorder F31.9 Left spastic hemiparesis G81.14 B12 deficiency E53.8 Tobacco dependence F17.200 UTI (urinary tract infection) N39.0
[2022-12-25] MEDS: clonazePAM 0.5 MG TAB PO SCH (21:12)
[2022-12-25] MEDS: METHADONE ORAL SOLN 2 MG/ML PO SCH (21:13)
[2022-12-25] MEDS: PATIENT'S OWN CONTROLLED MED 1 PO SCH (21:15)
[2022-12-26] MEDS: LEVOTHYROXINE SODIUM 50 MCG TABLET PO SCH (05:31)
[2022-12-26] MEDS: GABAPENTIN 600 MG TAB PO SCH ×3 (05:31→21:14)
[2022-12-26] MEDS ORDERED: HYDROCORTISONE 1% CRM 30 GM TUBE EXT PRN (06:30)
[2022-12-26] MEDS: Ipratropium HFA Inhaler (Combivent Respimat P&T Subs) INH SCH ×3 (07:16→19:37)
[2022-12-26] MEDS: Albuterol HFA 8 GM Inhaler (Combivent Respimat P&T Subs) INH SCH ×3 (07:16→19:37)
[2022-12-26] MEDS: ACETAMINOPHEN 325 MG TAB PO PRN (07:59)
[2022-12-26] MEDS: AMOXICILLIN 500 MG CAP PO SCH ×3 (09:14→21:15)
[2022-12-26] MEDS: POTASSIUM CHLORIDE 10 MEQ TABCR PO SCH ×2 (09:14→21:14)
[2022-12-26] MEDS: BACLOFEN 10 MG TAB PO SCH ×2 (09:14→21:15)
[2022-12-26] MEDS: APIXABAN 5 MG TABLET PO SCH (09:14)
[2022-12-26] MEDS: METOPROLOL TARTRATE 25 MG TAB PO SCH ×2 (09:15→21:18)
[2022-12-26] MEDS: KETOCONAZOLE 2% CR 15 GM TUBE EXT SCH ×2 (09:16→21:13)
[2022-12-26 09:17] LABS: BUN Creatinine Ratio 24.2 (10-20); Creatinine Clr Calc Pharmacy 133.2 ml/min; Est GFR (African American) 89.3 ml/min; Est GFR (Non-African American) 77.1 ml/min; Potassium 4.2 mmol/L (3.5-5.1)
[2022-12-26] MEDS: FUROSEMIDE 40 MG TAB PO SCH ×2 (09:17→17:03)
[2022-12-26] MEDS: ASPIRIN 81 MG ECTAB PO SCH (09:17)
[2022-12-26] MEDS: CYANOCOBALAMIN (B-12) 500 MCG TABLET PO SCH (09:17)
[2022-12-26] MEDS: ARIPiprazole 15 MG TAB PO SCH (09:17)
[2022-12-26] MEDS: SERTRALINE HCL 100 MG TABLET PO SCH (09:18)
[2022-12-26] MEDS: NICOTINE 7 MG/24 HR TDSY TD SCH (09:18)
[2022-12-26] MEDS: ' INH SCH (09:19)
[2022-12-26] MEDS ORDERED: MICONAZOLE NITRATE POWDER 85 GM EXT PRN (10:46)
[2022-12-26] MEDS: METHADONE ORAL SOLN 2 MG/ML PO SCH (21:13)
[2022-12-26] MEDS: clonazePAM 0.5 MG TAB PO SCH (21:13)
[2022-12-26] MEDS: MELATONIN 3 MG TAB PO SCH (21:14)
[2022-12-26] MEDS: traZODone HCL 50 MG TAB PO SCH (21:14)
[2022-12-26] MEDS: APIXABAN 2.5 MG TAB PO SCH (21:15)
[2022-12-26] MEDS: PATIENT'S OWN CONTROLLED MED 1 PO SCH (21:16)
--- NOTE | 2022-12-26 23:45 | Hospitalist Progress Note ---
Date of Service December 26, 2022 Assessment & Plan (1) Edema: Plan: Possibly 2nd to hypothyroidism (new diagnosis). Albumin 3.3 thus hypoalbuminemia causing such unlikely. u/a without proteinuria. no cirrhosis. Echo wnl with normal valve function and preserved EF; doubt her edema was due to diastolic dysfunction but can't rule it out 100%. Was she off her eliquis recently because of splenic abscess? Uncertain. Abilify + gabapentin can cause edema as well. Could patient have had DVT(s) in either leg? Will obtain venous duplex study of each leg. Edema much improved s/p IV/PO lasix this admission. Cont lasix 40mg BID. BMPs remain stable. (2) S/P mitral valve replacement with bioprosthetic valve: Plan: Stable. Echo this admission with normal valve function. (3) Opioid use disorder, severe, in sustained remission: Plan: Cont methadone 72mg daily. This is chronic and confirmed per pharmacy. (4) MENDEZ (generalized anxiety disorder): Plan: Cont usual meds (5) Anemia: Plan: Known history of thalassemia. No evidence of GI bleeding Last Hb was on 12/17 - 9.8. Repeat CBC am. Recheck a ferritin in am - give IV iron if needed. Replace low B12. (6) Primary hypothyroidism: Plan: New diagnosis. TSH 8-11. FT4 is low. started synthroid 50mcg daily. repeat TSH 6 weeks. could have been contributing to edema. (7) Morbid obesity: Plan: BMI 57 (8) Thalassemia: Plan: with resulting chronic anemia. no Rx. (9) Hypokalemia: Plan: replaced resolved (10) Splenic abscess: Plan: Dx 11/19/22 after presenting with fever and generalized weakness to [facility]. CT a/p - 11cm heterogenous fluid collection in the spleen concerning for cyst vs abscess. She was treated with Vancomycin and Zosyn. Transferred to [facility] on 11/22/22. At [facility] she was evaluated by General Surgery. No surgical intervention was performed She was discharged on Augmentin x 7 days on 11/29/22; went to [facility] following [facility]. Still No abdominal complaints. 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 (12) Bipolar disorder: Plan: cont abilify 15mg daily cont gabapentin 600mg TID (13) Left spastic hemiparesis: Plan: 2nd to R MCA territory CVA in the past PT, OT (14) B12 deficiency: Plan: recent level <200 start oral b12 1000mcg daily (15) Tobacco dependence: Plan: nicoderm patch (16) UTI (urinary tract infection): Plan: lactobacillus day #2 of 3 of amoxicillin 500mg TID (17) Iron deficiency: Plan: previous ferritin was very low at 13 (11/20/22) repeat a ferritin in am; give additional IV venofer if needed (18) Snoring: Plan: history highly concerning for severe CARINA will give 2 L NC O2 at HS while here - but needs formal sleep study after d/c Plan DVT proph - eliquis 2.5mg BID dispo - SNF for rehab then home with mother ultimately (but mom's house needs a ramp built) pt's mother updated at bedside Admission and Anticipated Discharge Date Admission Date: December 17, 2022 Subjective no issues overnight main complaint is that of severe fatigue this has been a problem for some time pt's mother was at bedside during the visit pt's mother reports that Michelle snores VERY LOUDLY every night and indeed has apneas never has had sleep study she wakes up each am feeling exhausted despite sleeping 8+ hours Review of Systems Review of Systems: cv - no chest pain, no orthopnea GI - no abd pain, no N/V pulm - no dyspnea at rest Physical Exam Physical Exam: gen - morbidly obese, NAD, laying in bed, very tired neck - noJVD mouth - MMM heart - RRR, s1 s2, 2/6 systolic murmur lungs - CTA b/l abd - soft NT ND BS+ ext - trace edema LLE; no edema RLE; dependent edema left arm/hand improved; pulses feet 2+ b/l neuro - hemiparesis of LUE/LLE Results & Data Results & Data Vital Signs (Past 12 Hours) Vital Signs Temp Pulse Pulse Resp BP Pulse Ox O2 Del Method 12/26/22 22:52 36.8 C 77 18 113/75 94 Room Air 12/26/22 21:59 Room Air 12/26/22 21:18 73 105/68 12/26/22 19:38 73 16 95 Room Air 12/26/22 19:27 36.9 C 76 16 95/63 L 96 Room Air 12/26/22 15:35 69 12/26/22 14:52 36.4 C L 69 18 116/72 96 Room Air 12/26/22 13:30 68 16 91 Room Air Laboratory Results Laboratory Results - last 24 hr 12/26/22 08:23 Sodium 138 Potassium 4.2 Chloride 103 Carbon Dioxide 30 Anion Gap 5 BUN 23 Creatinine 0.95 Est Cr Clr Drug Dosing 133.2 Est GFR ( Amer) 89.3 Est GFR (Non-Af Amer) 77.1 BUN/Creatinine Ratio 24.2 H Glucose 137 H Calcium 9.0 PG Care Time/CCT Total # of Minutes Spent Total Time Spent with Patient: Total time spent is greater than 50% in coordination of care (as documented) at patient's floor/unit and/or counseling patient: Coding Level of Care Code 08646 SUB INP/OBS CARE 3/50MIN Diagnoses Edema R60.9 S/P mitral valve replacement with bioprosthetic valve Z95.3 Opioid use disorder, severe, in sustained remission F11.21 MENDEZ (generalized anxiety disorder) F41.1 Anemia D64.9 Primary hypothyroidism E03.9 Morbid obesity E66.01 Thalassemia D56.9 Hypokalemia E87.6 Splenic abscess D73.3 History of embolic stroke Z86.73 Bipolar disorder F31.9 Left spastic hemiparesis G81.14 B12 deficiency E53.8 Tobacco dependence F17.200 UTI (urinary tract infection) N39.0 Iron deficiency E61.1 Snoring R06.83
[2022-12-27] MEDS: LEVOTHYROXINE SODIUM 50 MCG TABLET PO SCH (05:55)
[2022-12-27] MEDS: GABAPENTIN 600 MG TAB PO SCH ×3 (05:56→20:35)
[2022-12-27 07:10] LABS: Hematocrit (blood only) 32.5 % (37.0-47.0); Hemoglobin 9.6 g/dl (12.0-16.0); Mean Corpuscular Hemoglobin 22.6 pg (25.0-34.0); Mean Corpuscular Hgb Conc 29.5 g/dL (32.0-36.0); Mean Corpuscular Volume 76.7 fL (80.0-100.0); Platelet Count 493 K/uL (130-400); RDW Coefficient of Variation 15.9 % (11.5-14.5); RDW Standard Deviation 44.7 fL (36.4-46.3); Red Blood Count 4.24 M/uL (4.20-5.40); White Blood Count 5.78 K/ul (4.8-10.8)
[2022-12-27 07:30] LABS: BUN Creatinine Ratio 21.6 (10-20); Calcium 8.9 mg/dl (8.6-10.3); Creatinine Clr Calc Pharmacy 130.5 ml/min; Est GFR (African American) 87.1 ml/min; Est GFR (Non-African American) 75.1 ml/min; Potassium 3.9 mmol/L (3.5-5.1)
[2022-12-27] MEDS: Ipratropium HFA Inhaler (Combivent Respimat P&T Subs) INH SCH ×3 (07:31→19:14)
[2022-12-27] MEDS: Albuterol HFA 8 GM Inhaler (Combivent Respimat P&T Subs) INH SCH ×3 (07:32→19:15)
--- NOTE | 2022-12-27 07:42 | Ultrasound Report ---
BILATERAL LOWER EXTREMITY VENOUS DOPPLER CLINICAL HISTORY: edema, immobility; evaluate for DVT COMPARISON STUDY: No previous studies for comparison. TECHNIQUE: Sonography of the deep venous system of the bilateral lower extremities was performed. Co mpression and augmentation were evaluated. FINDINGS: This exam is compromised due to suboptimal penetration. The bilateral common femoral, supe rficial femoral and popliteal veins were compressible. Augmentation was normal. Flow was shown within the deep calf vessels. IMPRESSION: Technically compromised exam but no evidence of deep venous thrombus within the bilateral lower extremities. ACT 112: Negative or not required by law. Electronically signed by: Justin Valle M.D. 12/27/2022 7:40 AM
[2022-12-27 07:50] LABS: Ferritin 138.9 ng/ml (8-388)
[2022-12-27] MEDS: METOPROLOL TARTRATE 25 MG TAB PO SCH ×2 (08:17→20:35)
[2022-12-27] MEDS: ' INH SCH (08:17)
[2022-12-27] MEDS: POTASSIUM CHLORIDE 10 MEQ TABCR PO SCH ×2 (08:18→20:35)
[2022-12-27] MEDS: BACLOFEN 10 MG TAB PO SCH ×2 (08:18→20:36)
[2022-12-27] MEDS: AMOXICILLIN 500 MG CAP PO SCH ×3 (08:18→20:36)
[2022-12-27] MEDS: APIXABAN 2.5 MG TAB PO SCH ×2 (08:18→20:35)
[2022-12-27] MEDS: ASPIRIN 81 MG ECTAB PO SCH (08:19)
[2022-12-27] MEDS: ARIPiprazole 15 MG TAB PO SCH (08:19)
[2022-12-27] MEDS: CYANOCOBALAMIN (B-12) 500 MCG TABLET PO SCH (08:19)
[2022-12-27] MEDS: FUROSEMIDE 40 MG TAB PO SCH ×2 (08:19→17:25)
[2022-12-27] MEDS: SERTRALINE HCL 100 MG TABLET PO SCH (08:20)
[2022-12-27] MEDS: NICOTINE 7 MG/24 HR TDSY TD SCH (08:23)
[2022-12-27] MEDS: clonazePAM 0.5 MG TAB PO SCH (20:34)
[2022-12-27] MEDS: METHADONE ORAL SOLN 2 MG/ML PO SCH (20:34)
[2022-12-27] MEDS: MELATONIN 3 MG TAB PO SCH (20:35)
[2022-12-27] MEDS: traZODone HCL 50 MG TAB PO SCH (20:35)
[2022-12-27] MEDS: PATIENT'S OWN CONTROLLED MED 1 PO SCH (20:36)
--- NOTE | 2022-12-27 21:31 | Hospitalist Progress Note ---
Date of Service December 27, 2022 Assessment & Plan (1) Edema: Plan: Possibly 2nd to hypothyroidism (new diagnosis). Albumin 3.3 thus hypoalbuminemia causing such unlikely. u/a without proteinuria. no cirrhosis. Echo wnl with normal valve function and preserved EF; doubt her edema was due to diastolic dysfunction but can't rule it out 100%. No DVT on b/l LE dopplers. Abilify + gabapentin can cause edema as well. Edema much improved s/p IV/PO lasix this admission. IV stopped; now on PO lasix 40mg BID and doing well on such with stable creatinine. Cont K supplementation BID. (2) S/P mitral valve replacement with bioprosthetic valve: Plan: Stable. Echo this admission with normal valve function. (3) Opioid use disorder, severe, in sustained remission: Plan: Cont methadone 72mg daily. This is chronic and confirmed per pharmacy. (4) MENDEZ (generalized anxiety disorder): Plan: Cont usual meds (5) Anemia: Plan: Known history of thalassemia. No evidence of GI bleeding Hb on 12/17 - 9.8. Today - 9.6 - stable. Baseline Hb 9-10 range? Rechecked ferritin today - 138. No iron replacement needed at this time. Replace low B12. (6) Primary hypothyroidism: Plan: New diagnosis. TSH 8-11. FT4 is low. started synthroid 50mcg daily. repeat TSH 6 weeks. could have been contributing to edema. (7) Morbid obesity: Plan: BMI 57 (8) Thalassemia: Plan: with resulting chronic anemia. no Rx. (9) Hypokalemia: Plan: replaced resolved cont K supplementation due to chronic lasix use (10) Splenic abscess: Plan: Dx 11/19/22 after presenting with fever and generalized weakness to [facility]. CT a/p - 11cm heterogenous fluid collection in the spleen concerning for cyst vs abscess. She was treated with Vancomycin and Zosyn. Transferred to [facility] on 11/22/22. At [facility] she was evaluated by General Surgery. No surgical intervention was performed She was discharged on Augmentin x 7 days on 11/29/22; went to [facility] following [facility]. Still No abdominal complaints. clinically resolved. etiology of this issue uncertain. 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 (12) Bipolar disorder: Plan: cont abilify 15mg daily cont gabapentin 600mg TID (13) Left spastic hemiparesis: Plan: 2nd to R MCA territory CVA in the past PT, OT (14) B12 deficiency: Plan: recent level <200 cont oral b12 1000mcg daily x 6 months (15) Tobacco dependence: Plan: nicoderm patch (16) UTI (urinary tract infection): Plan: lactobacillus day #3 of 3 of amoxicillin 500mg TID symptoms resolved (17) Iron deficiency: Plan: previous ferritin was very low at 13 (11/20/22) now >100 H/H stable (18) Snoring: Plan: history highly concerning for severe CARINA will give 2 L NC O2 at HS while here - but needs formal sleep study after d/c Plan DVT proph - eliquis 2.5mg BID dispo - SNF for rehab then home with mother ultimately (but mom's house needs a ramp built) pt's mother updated at bedside yesterday appreciate social work assistance Admission and Anticipated Discharge Date Admission Date: December 17, 2022 Subjective tele overnight wnl LE venous dopplers legs neg pt w/o any new complaints today was watching cartoons on TV during the visit eating well we discussed that case management has numerous referrals out to rehab facilities for post-d/c Review of Systems Review of Systems: gen - feels well cv - no cp pulm - no dyspnea GI - moving bowels Physical Exam Physical Exam: gen - morbidly obese, NAD, laying in bed, watching TV neck - no JVD mouth - MMM heart - RRR, s1 s2, 1-2/6 systolic murmur LUSB lungs - CTA b/l abd - soft NT ND BS+ ext - trace edema LLE; no edema RLE; dependent edema left arm/hand same as yesterday; pulses feet 2+ b/l neuro - hemiparesis of LUE/LLE - baseline psych - a/o x 3 Results & Data Results & Data Vital Signs (Past 12 Hours) Vital Signs Temp Pulse Pulse Resp BP Pulse Ox O2 Del Method 12/27/22 19:34 36.7 C 77 20 118/73 94 Room Air 12/27/22 19:15 76 17 89 L Room Air 12/27/22 16:46 72 12/27/22 15:28 36.9 C 72 20 103/61 93 Room Air 12/27/22 13:19 73 16 98 Room Air 12/27/22 11:10 36.9 C 69 20 107/65 96 Room Air Laboratory Results Laboratory Results - last 24 hr 12/27/22 12/27/22 06:51 06:51 WBC 5.78 RBC 4.24 Hgb 9.6 L Hct 32.5 L MCV 76.7 L MCH 22.6 L MCHC 29.5 L RDW Std Deviation 44.7 RDW Coeff of Alexia 15.9 H Plt Count 493 H MPV 9.0 L Sodium 138 Potassium 3.9 Chloride 101 Carbon Dioxide 32 Anion Gap 5 BUN 21 Creatinine 0.97 Est Cr Clr Drug Dosing 130.5 Est GFR ( Amer) 87.1 Est GFR (Non-Af Amer) 75.1 BUN/Creatinine Ratio 21.6 H Glucose 137 H Calcium 8.9 Ferritin 138.9 Diagnostic Findings Venous Doppler Study 12/26/22 19:16 BILATERAL LOWER EXTREMITY VENOUS DOPPLER CLINICAL HISTORY: edema, immobility; evaluate for DVT COMPARISON STUDY: No previous studies for comparison. TECHNIQUE: Sonography of the deep venous system of the bilateral lower extremities was performed. Compression and augmentation were evaluated. FINDINGS: This exam is compromised due to suboptimal penetration. The bilateral common femoral, superficial femoral and popliteal veins were compressible. Augmentation was normal. Flow was shown within the deep calf vessels. IMPRESSION: Technically compromised exam but no evidence of deep venous thrombus within the bilateral lower extremities. ACT 112: Negative or not required by law. Electronically signed by: Justin Valle M.D. 12/27/2022 7:40 AM PG Care Time/CCT Total # of Minutes Spent Total Time Spent with Patient: Total time spent is greater than 50% in coordination of care (as documented) at patient's floor/unit and/or counseling patient: Coding Level of Care Code 91953 SUB INP/OBS CARE 1/25MIN Diagnoses Edema R60.9 S/P mitral valve replacement with bioprosthetic valve Z95.3 Opioid use disorder, severe, in sustained remission F11.21 MENDEZ (generalized anxiety disorder) F41.1 Anemia D64.9 Primary hypothyroidism E03.9 Morbid obesity E66.01 Thalassemia D56.9 Hypokalemia E87.6 Splenic abscess D73.3 History of embolic stroke Z86.73 Bipolar disorder F31.9 Left spastic hemiparesis G81.14 B12 deficiency E53.8 Tobacco dependence F17.200 UTI (urinary tract infection) N39.0 Iron deficiency E61.1 Snoring R06.83
[2022-12-28] MEDS: GABAPENTIN 600 MG TAB PO SCH ×3 (05:22→20:19)
[2022-12-28] MEDS: LEVOTHYROXINE SODIUM 50 MCG TABLET PO SCH (05:22)
[2022-12-28] MEDS: ACETAMINOPHEN 325 MG TAB PO PRN ×3 (05:43→17:06)
[2022-12-28] MEDS: Albuterol HFA 8 GM Inhaler (Combivent Respimat P&T Subs) INH SCH ×3 (07:07→19:20)
[2022-12-28] MEDS: Ipratropium HFA Inhaler (Combivent Respimat P&T Subs) INH SCH ×4 (07:08→19:20)
[2022-12-28] MEDS: NICOTINE 7 MG/24 HR TDSY TD SCH (08:13)
[2022-12-28] MEDS: ARIPiprazole 15 MG TAB PO SCH (08:14)
[2022-12-28] MEDS: METOPROLOL TARTRATE 25 MG TAB PO SCH ×2 (08:14→20:19)
[2022-12-28] MEDS: ASPIRIN 81 MG ECTAB PO SCH (08:14)
[2022-12-28] MEDS: CYANOCOBALAMIN (B-12) 500 MCG TABLET PO SCH (08:14)
[2022-12-28] MEDS: SERTRALINE HCL 100 MG TABLET PO SCH (08:14)
[2022-12-28] MEDS: FUROSEMIDE 40 MG TAB PO SCH ×2 (08:15→17:06)
[2022-12-28] MEDS: BACLOFEN 10 MG TAB PO SCH ×2 (08:15→20:18)
[2022-12-28] MEDS: AMOXICILLIN 500 MG CAP PO SCH ×2 (08:15→13:51)
[2022-12-28] MEDS: APIXABAN 2.5 MG TAB PO SCH ×2 (08:15→20:18)
[2022-12-28] MEDS: POTASSIUM CHLORIDE 10 MEQ TABCR PO SCH ×2 (08:15→20:17)
[2022-12-28] MEDS: ' INH SCH (09:49)
[2022-12-28] MEDS: NICOTINE POLACRILEX 2 MG GUM MT PRN (12:17)
[2022-12-28] MEDS: MELATONIN 3 MG TAB PO SCH (20:17)
[2022-12-28] MEDS: clonazePAM 0.5 MG TAB PO SCH (20:17)
[2022-12-28] MEDS: METHADONE ORAL SOLN 2 MG/ML PO SCH (20:17)
[2022-12-28] MEDS: PATIENT'S OWN CONTROLLED MED 1 PO SCH (20:17)
[2022-12-28] MEDS: traZODone HCL 50 MG TAB PO SCH (20:18)
--- NOTE | 2022-12-28 21:42 | Hospitalist Progress Note ---
Date of Service December 28, 2022 Assessment & Plan (1) Edema: Plan: Possibly 2nd to hypothyroidism (new diagnosis). Albumin 3.3 thus hypoalbuminemia causing such unlikely. u/a without proteinuria. no cirrhosis. Echo wnl with normal valve function and preserved EF; doubt her edema was due to diastolic dysfunction but can't rule it out 100%. No DVT on b/l LE dopplers. Abilify + gabapentin can cause edema as well. Edema much improved s/p IV/PO lasix this admission. IV stopped; now on PO lasix 40mg BID and doing well on such with stable creatinine on 12/28 Cont K supplementation BID. (2) S/P mitral valve replacement with bioprosthetic valve: Plan: Stable. Echo this admission with normal valve function. (3) Opioid use disorder, severe, in sustained remission: Plan: Cont methadone 72mg daily. This is chronic and confirmed per pharmacy. (4) MENDEZ (generalized anxiety disorder): Plan: Cont usual meds (5) Anemia: Plan: Known history of thalassemia. No evidence of GI bleeding Hb on 12/17 - 9.8. Today - 9.6 - stable. Baseline Hb 9-10 range? Rechecked ferritin today - 138. No iron replacement needed at this time. Replaced low B12. (6) Primary hypothyroidism: Plan: New diagnosis. TSH 8-11. FT4 is low. started synthroid 50mcg daily. repeat TSH 6 weeks. could have been contributing to edema. (7) Morbid obesity: Plan: BMI 57 (8) Thalassemia: Plan: with resulting chronic anemia. no Rx. (9) Hypokalemia: Plan: replaced resolved cont K supplementation due to chronic lasix use (10) Splenic abscess: Plan: Dx 11/19/22 after presenting with fever and generalized weakness to [facility]. CT a/p - 11cm heterogenous fluid collection in the spleen concerning for cyst vs abscess. She was treated with Vancomycin and Zosyn. Transferred to [facility] on 11/22/22. At [facility] she was evaluated by General Surgery. No surgical intervention was performed She was discharged on Augmentin x 7 days on 11/29/22; went to [facility] following [facility]. Still No abdominal complaints. clinically resolved. etiology of this issue uncertain. 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 (12) Bipolar disorder: Plan: cont abilify 15mg daily cont gabapentin 600mg TID (13) Left spastic hemiparesis: Plan: 2nd to R MCA territory CVA in the past PT, OT (14) B12 deficiency: Plan: recent level <200 cont oral b12 1000mcg daily x 6 months (15) Tobacco dependence: Plan: nicoderm patch (16) UTI (urinary tract infection): Plan: lactobacillus day #3 of 3 of amoxicillin 500mg TID symptoms resolved (17) Iron deficiency: Plan: previous ferritin was very low at 13 (11/20/22) now >100 H/H stable (18) Snoring: Plan: history highly concerning for severe CARINA will give 2 L NC O2 at HS while here - but needs formal sleep study after d/c Plan DVT proph - eliquis 2.5mg BID dispo - SNF for rehab then home with mother ultimately (but mom's house needs a ramp built) appreciate social work assistance Admission and Anticipated Discharge Date Admission Date: December 17, 2022 Subjective 37 yo female Review of Systems Review of Systems: All systems reviewed & are unremarkable except as noted in HPI & below Physical Exam Physical Exam: gen - morbidly obese, NAD, laying in bed, watching TV neck - no JVD mouth - MMM heart - RRR, s1 s2, 1-2/6 systolic murmur LUSB lungs - CTA b/l abd - soft NT ND BS+ ext - trace edema LLE; no edema RLE; dependent edema left arm/hand same as yesterday; pulses feet 2+ b/l neuro - hemiparesis of LUE/LLE - baseline psych - a/o x 3 Results & Data Results & Data Vital Signs (Past 12 Hours) Vital Signs Temp Pulse Pulse Resp BP Pulse Ox O2 Del Method 12/28/22 19:43 36.8 C 73 20 110/63 97 Room Air 12/28/22 19:21 102 H 18 94 Room Air 12/28/22 15:31 36.7 C 69 20 99/62 L 95 Room Air 12/28/22 14:52 73 12/28/22 12:27 71 18 95 Room Air 12/28/22 11:07 36.6 C 67 20 96/67 L 93 Room Air PG Care Time/CCT Total # of Minutes Spent Total Time Spent with Patient: Total time spent is greater than 50% in coordination of care (as documented) at patient's floor/unit and/or counseling patient: Coding Level of Care Code 52519 SUB INP/OBS CARE 2/35MIN Diagnoses Edema R60.9 S/P mitral valve replacement with bioprosthetic valve Z95.3 Opioid use disorder, severe, in sustained remission F11.21 MENDEZ (generalized anxiety disorder) F41.1 Anemia D64.9 Primary hypothyroidism E03.9 Morbid obesity E66.01 Thalassemia D56.9 Hypokalemia E87.6 Splenic abscess D73.3 History of embolic stroke Z86.73 Bipolar disorder F31.9 Left spastic hemiparesis G81.14 B12 deficiency E53.8 Tobacco dependence F17.200 UTI (urinary tract infection) N39.0 Iron deficiency E61.1 Snoring R06.83
[2022-12-29] MEDS: LEVOTHYROXINE SODIUM 50 MCG TABLET PO SCH (05:43)
[2022-12-29] MEDS: GABAPENTIN 600 MG TAB PO SCH ×3 (05:43→20:23)
[2022-12-29] MEDS: ACETAMINOPHEN 325 MG TAB PO PRN (05:45)
[2022-12-29] MEDS: Ipratropium HFA Inhaler (Combivent Respimat P&T Subs) INH SCH ×3 (07:04→19:31)
[2022-12-29] MEDS: Albuterol HFA 8 GM Inhaler (Combivent Respimat P&T Subs) INH SCH ×3 (07:04→19:31)
[2022-12-29] MEDS: NICOTINE 7 MG/24 HR TDSY TD SCH (08:03)
[2022-12-29] MEDS: FUROSEMIDE 40 MG TAB PO SCH ×2 (08:03→15:47)
[2022-12-29] MEDS: ASPIRIN 81 MG ECTAB PO SCH (08:03)
[2022-12-29] MEDS: SERTRALINE HCL 100 MG TABLET PO SCH (08:03)
[2022-12-29] MEDS: ARIPiprazole 15 MG TAB PO SCH (08:04)
[2022-12-29] MEDS: APIXABAN 2.5 MG TAB PO SCH ×2 (08:04→20:24)
[2022-12-29] MEDS: BACLOFEN 10 MG TAB PO SCH ×2 (08:04→20:22)
[2022-12-29] MEDS: METOPROLOL TARTRATE 25 MG TAB PO SCH ×2 (08:04→20:22)
[2022-12-29] MEDS: CYANOCOBALAMIN (B-12) 500 MCG TABLET PO SCH (08:04)
[2022-12-29] MEDS: POTASSIUM CHLORIDE 10 MEQ TABCR PO SCH ×2 (08:04→20:21)
[2022-12-29] MEDS: ' INH SCH (08:05)
--- NOTE | 2022-12-29 08:10 | Hospitalist Progress Note ---
Date of Service December 29, 2022 Assessment & Plan (1) Edema: Plan: Possibly 2nd to hypothyroidism (new diagnosis). Albumin 3.3 thus hypoalbuminemia causing such unlikely. u/a without proteinuria. no cirrhosis. Echo wnl with normal valve function and preserved EF; doubt her edema was due to diastolic dysfunction but can't rule it out 100%. No DVT on b/l LE dopplers. Abilify + gabapentin can cause edema as well. Edema much improved s/p IV/PO lasix this admission. IV stopped; now on PO lasix 40mg BID and doing well on such with stable creatinine on 12/28 Cont K supplementation BID. (2) S/P mitral valve replacement with bioprosthetic valve: Plan: Stable. Echo this admission with normal valve function. (3) Opioid use disorder, severe, in sustained remission: Plan: Cont methadone 72mg daily. This is chronic and confirmed per pharmacy. (4) MENDEZ (generalized anxiety disorder): Plan: Cont usual meds (5) Anemia: Plan: Known history of thalassemia. No evidence of GI bleeding Hb on 12/17 - 9.8. Today - 9.6 - stable. Baseline Hb 9-10 range? Rechecked ferritin today - 138. No iron replacement needed at this time. Replaced low B12. (6) Primary hypothyroidism: Plan: New diagnosis. TSH 8-11. FT4 is low. started synthroid 50mcg daily. repeat TSH 6 weeks. could have been contributing to edema. (7) Morbid obesity: Plan: BMI 57 (8) Thalassemia: Plan: with resulting chronic anemia. no Rx. (9) Hypokalemia: Plan: replaced resolved cont K supplementation due to chronic lasix use (10) Splenic abscess: Plan: Dx 11/19/22 after presenting with fever and generalized weakness to [facility]. CT a/p - 11cm heterogenous fluid collection in the spleen concerning for cyst vs abscess. She was treated with Vancomycin and Zosyn. Transferred to [facility] on 11/22/22. At [facility] she was evaluated by General Surgery. No surgical intervention was performed She was discharged on Augmentin x 7 days on 11/29/22; went to [facility] following [facility]. Still No abdominal complaints. clinically resolved. etiology of this issue uncertain. 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 (12) Bipolar disorder: Plan: cont abilify 15mg daily cont gabapentin 600mg TID (13) Left spastic hemiparesis: Plan: 2nd to R MCA territory CVA in the past PT, OT (14) B12 deficiency: Plan: recent level <200 cont oral b12 1000mcg daily x 6 months (15) Tobacco dependence: Plan: nicoderm patch (16) UTI (urinary tract infection): Plan: lactobacillus day #3 of 3 of amoxicillin 500mg TID symptoms resolved (17) Iron deficiency: Plan: previous ferritin was very low at 13 (11/20/22) now >100 H/H stable (18) Snoring: Plan: history highly concerning for severe CARINA will give 2 L NC O2 at HS while here - but needs formal sleep study after d/c Plan DVT proph - eliquis 2.5mg BID dispo - SNF for rehab then home with mother ultimately (but mom's house needs a ramp built) appreciate social work assistance Awaiting placement. Admission and Anticipated Discharge Date Admission Date: December 17, 2022 Subjective Patient reports no new symptoms. Review of Systems Review of Systems: All systems reviewed & are unremarkable except as noted in HPI & below Physical Exam Physical Exam: gen - morbidly obese, NAD, sitting in chair, watching TV neck - no JVD mouth - MMM heart - RRR, s1 s2, 1-2/6 systolic murmur LUSB lungs - CTA b/l abd - soft NT ND BS+ ext - trace edema LLE; no edema RLE; dependent edema left arm/hand same as yesterday; pulses feet 2+ b/l neuro - hemiparesis of LUE/LLE - baseline psych - a/o x 3 Results & Data Results & Data Vital Signs (Past 12 Hours) Vital Signs Temp Pulse Pulse Resp BP Pulse Ox O2 Del Method 12/29/22 07:50 36.4 C L 87 20 112/72 98 Room Air 12/29/22 07:05 78 18 96 Room Air 12/29/22 06:54 74 12/29/22 02:31 36.6 C 72 20 108/67 95 Room Air 12/29/22 01:26 75 07/08/23 23:21 36.7 C 76 18 118/74 94 Room Air 12/28/22 21:36 Room Air PG Care Time/CCT Total # of Minutes Spent Total Time Spent with Patient: Total time spent is greater than 50% in coordination of care (as documented) at patient's floor/unit and/or counseling patient: Coding Level of Care Code 37601 SUB INP/OBS CARE 07/17MIN Diagnoses Edema R60.9 S/P mitral valve replacement with bioprosthetic valve Z95.3 Opioid use disorder, severe, in sustained remission F11.21 MENDEZ (generalized anxiety disorder) F41.1 Anemia D64.9 Primary hypothyroidism E03.9 Morbid obesity E66.01 Thalassemia D56.9 Hypokalemia E87.6 Splenic abscess D73.3 History of embolic stroke Z86.73 Bipolar disorder F31.9 Left spastic hemiparesis G81.14 B12 deficiency E53.8 Tobacco dependence F17.200 UTI (urinary tract infection) N39.0 Iron deficiency E61.1 Snoring R06.83
[2022-12-29] MEDS: hydrOXYzine HCl 25 MG TAB PO PRN (17:30)
[2022-12-29] MEDS: MELATONIN 3 MG TAB PO SCH (20:23)
[2022-12-29] MEDS: traZODone HCL 50 MG TAB PO SCH (20:23)
[2022-12-29] MEDS: PATIENT'S OWN CONTROLLED MED 1 PO SCH (20:26)
[2022-12-29] MEDS: METHADONE ORAL SOLN 2 MG/ML PO SCH (20:26)
[2022-12-29] MEDS: clonazePAM 0.5 MG TAB PO SCH (20:26)
[2022-12-30] MEDS ORDERED: POLYETHYLENE (MIRALAX) 17 GM PACK PO PRN (04:49)
[2022-12-30] MEDS: LEVOTHYROXINE SODIUM 50 MCG TABLET PO SCH (06:14)
[2022-12-30] MEDS: GABAPENTIN 600 MG TAB PO SCH ×2 (06:14→13:52)
[2022-12-30] MEDS: Ipratropium HFA Inhaler (Combivent Respimat P&T Subs) INH SCH ×3 (07:20→19:15)
[2022-12-30] MEDS: Albuterol HFA 8 GM Inhaler (Combivent Respimat P&T Subs) INH SCH ×3 (07:21→19:15)
[2022-12-30] MEDS: FUROSEMIDE 40 MG TAB PO SCH (08:24)
[2022-12-30] MEDS: METOPROLOL TARTRATE 25 MG TAB PO SCH ×2 (08:24→20:42)
[2022-12-30] MEDS: SERTRALINE HCL 100 MG TABLET PO SCH (08:25)
[2022-12-30] MEDS: NICOTINE 7 MG/24 HR TDSY TD SCH (08:25)
[2022-12-30] MEDS: APIXABAN 2.5 MG TAB PO SCH ×2 (08:25→20:37)
[2022-12-30] MEDS: ASPIRIN 81 MG ECTAB PO SCH (08:25)
[2022-12-30] MEDS: CYANOCOBALAMIN (B-12) 500 MCG TABLET PO SCH (08:25)
[2022-12-30] MEDS: ARIPiprazole 15 MG TAB PO SCH (08:25)
[2022-12-30] MEDS: POTASSIUM CHLORIDE 10 MEQ TABCR PO SCH ×2 (08:25→20:37)
[2022-12-30] MEDS: BACLOFEN 10 MG TAB PO SCH ×2 (08:25→20:38)
[2022-12-30] MEDS: ' INH SCH (08:26)
[2022-12-30] MEDS: hydrOXYzine HCl 25 MG TAB PO PRN (14:50)
[2022-12-30] MEDS ORDERED: FUROSEMIDE 40 MG/4 ML VIAL IV ONE (14:50)
[2022-12-30] MEDS: ACETAMINOPHEN 325 MG TAB PO PRN (15:07)
--- NOTE | 2022-12-30 18:26 | Hospitalist Progress Note ---
Date of Service December 30, 2022 Assessment & Plan (1) Edema: Plan: Possibly 2nd to hypothyroidism (new diagnosis), but also could be side effect of recently increased dose of gabapentin She also likely received copious IV fluids during admission 1 month ago for sepsis Albumin 3.3 thus hypoalbuminemia causing such unlikely. u/a without proteinuria. no cirrhosis. Echo wnl with normal valve function and preserved EF; doubt her edema was due to diastolic dysfunction but can't rule it out 100%. No DVT on b/l LE dopplers. Edema previously improved s/p IV/PO lasix this admission, However on 12/30 is significantly increased and her weight is up -Restart Lasix 40 Mg IV twice daily -Monitor for improvement of edema -Decrease gabapentin to 400 Mg p.o. 3 times daily as increased leg swelling seem to come on with increased dose of gabapentin -Cont K supplementation BID. -check BMP in the morning (2) S/P mitral valve replacement with bioprosthetic valve: Plan: Stable. Echo this admission with normal valve function. (3) Opioid use disorder, severe, in sustained remission: Plan: Cont methadone 72mg daily. This is chronic and confirmed per pharmacy. (4) MENDEZ (generalized anxiety disorder): Plan: Her sertraline is supposed to be 200 mg daily and has been getting 100 mg daily here-increase back to 200 mg daily Continue hydroxyzine as needed (5) Anemia: Plan: Known history of thalassemia. No evidence of GI bleeding Hb- 9.6 - stable. Baseline Hb 9-10 range Rechecked ferritin 138. No iron replacement needed at this time. Replaced low B12. (6) Primary hypothyroidism: Plan: New diagnosis. TSH 8-11. FT4 is low. started synthroid 50mcg daily. repeat TSH 6 weeks. could have been contributing to edema. (7) Morbid obesity: Plan: BMI 58 (8) Thalassemia: Plan: with resulting chronic anemia. no Rx. (9) Hypokalemia: Plan: replaced resolved cont K supplementation due to chronic lasix use (10) Splenic abscess: Plan: Dx 11/19/22 after presenting with fever and generalized weakness to [facility]. CT a/p - 11cm heterogenous fluid collection in the spleen concerning for cyst vs abscess. She was treated with Vancomycin and Zosyn. Transferred to [facility] on 11/22/22. At [facility] she was evaluated by General Surgery. No surgical intervention was performed She was discharged on Augmentin x 7 days on 11/29/22; went to [facility] following [facility] [place]. Still No abdominal complaints. clinically resolved. etiology of this issue uncertain. 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 3 times daily Her baclofen dose is supposed to only be 5 Mg p.o. twice daily-was ordered here as 10 mg twice daily-decrease back to 5 Mg and this may be causing her current drowsiness Continue Eliquis at preventative dose 2.5 Mg p.o. twice daily --of note, she does not recall ever having atrial fibrillation. Her stroke was caused by septic emboli but she reports she is on Eliquis as a preventative (12) Bipolar disorder: Plan: cont abilify 15mg daily cont gabapentin for reduced dose to 400mg TID (13) Left spastic hemiparesis: Plan: 2nd to R MCA territory CVA in the past PT, OT (14) B12 deficiency: Plan: recent level <200 cont oral b12 1000mcg daily x 6 months (15) Tobacco dependence: Plan: nicoderm patch (16) UTI (urinary tract infection): Plan: lactobacillus Completed 3 days of amoxicillin 500mg TID symptoms resolved (17) Iron deficiency: Plan: previous ferritin was very low at 13 (11/20/22) now >100 H/H stable (18) Snoring: Plan: history highly concerning for severe CARINA will give 2 L NC O2 at HS while here - but needs formal sleep study after d/c Plan DVT proph - eliquis 2.5mg BID dispo - SNF for rehab then home with mother ultimately (but mom's house needs a ramp built)-awaiting placement discussed care with mother on the phone on 12/30 Admission and Anticipated Discharge Date Admission Date: December 17, 2022 Subjective Patient reports significant increase in leg swelling. Denies shortness of breath. Feels very drowsy. She is moving her bowels and eating. I discussed her care with her mother on the phone and clarified her medication list-her sertraline and baclofen doses were incorrect. Patient and her mother report that her gabapentin dose was increased to 600 mg 3 times daily about 2 or 3 months ago but then was decreased for a month during her last admission but then recently increased back again to 600 mg. Physical Exam Constitutional: WD/WN, vitals as above Neck: trachea midline, no thyromegaly Respiratory: normal respiratory effort, lungs clear to auscultation Cardiovascular: Rate/Rhythm: regular rate and regular rhythm Heart Sounds: + murmur (2/6 systolic at the apex) Extremities: + edema (2-3+ pitting edema to the knees bilaterally) Chest (Breasts): Chest: + abnormal inspection of chest (Incisional sternotomy scar) Gastrointestinal (Abdomen): normal bowel sounds, soft, nontender, no hepatosplenomegaly Musculoskeletal: Extremities: no cyanosis and no clubbing Skin: no rashes, warm and dry Neurologic: moves all extremities and awake; no focal motor deficits Psychiatric: A+Ox3, euthymic affect Results & Data Results & Data Vital Signs (Past 12 Hours) Vital Signs Temp Pulse Resp BP Pulse Ox O2 Del Method 12/30/22 15:08 36.5 C 84 20 99/63 L 95 Room Air 12/30/22 13:00 82 18 93 Room Air 12/30/22 07:22 104 H 20 97 Room Air 12/30/22 07:00 36.4 C L 74 16 117/73 98 Room Air PG Care Time/CCT Total # of Minutes Spent Total Time Spent with Patient: Total time spent is greater than 50% in coordination of care (as documented) at patient's floor/unit and/or counseling patient: Coding Level of Care Code 27727 SUB INP/OBS CARE 3/50MIN Diagnoses Edema R60.9 S/P mitral valve replacement with bioprosthetic valve Z95.3 Opioid use disorder, severe, in sustained remission F11.21 MENDEZ (generalized anxiety disorder) F41.1 Anemia D64.9 Primary hypothyroidism E03.9 Morbid obesity E66.01 Thalassemia D56.9 Hypokalemia E87.6 Splenic abscess D73.3 History of embolic stroke Z86.73 Bipolar disorder F31.9 Left spastic hemiparesis G81.14 B12 deficiency E53.8 Tobacco dependence F17.200 UTI (urinary tract infection) N39.0 Iron deficiency E61.1 Snoring R06.83
[2022-12-30] MEDS: PATIENT'S OWN CONTROLLED MED 1 PO SCH (20:36)
[2022-12-30] MEDS: METHADONE ORAL SOLN 2 MG/ML PO SCH (20:36)
[2022-12-30] MEDS: clonazePAM 0.5 MG TAB PO SCH (20:37)
[2022-12-30] MEDS: traZODone HCL 50 MG TAB PO SCH (20:37)
[2022-12-30] MEDS: MELATONIN 3 MG TAB PO SCH (20:38)
[2022-12-30] MEDS: GABAPENTIN 400 MG CAP PO SCH (20:38)
[2022-12-31] MEDS: GABAPENTIN 400 MG CAP PO SCH ×3 (06:32→21:00)
[2022-12-31] MEDS: LEVOTHYROXINE SODIUM 50 MCG TABLET PO SCH (06:32)
[2022-12-31] MEDS: Ipratropium HFA Inhaler (Combivent Respimat P&T Subs) INH SCH ×3 (07:16→19:11)
[2022-12-31] MEDS: Albuterol HFA 8 GM Inhaler (Combivent Respimat P&T Subs) INH SCH ×3 (07:16→19:11)
[2022-12-31 07:32] LABS: Basophils # (auto) 0.06 K/uL (0-0.2); Basophils % (auto) 1.1 %; Eosinophils # (auto) 0.36 K/uL (0-0.50); Eosinophils % (auto) 6.3 %; Hemoglobin 9.7 g/dl (12.0-16.0); Immature Granulocytes # (auto) 0.01 K/uL (0.01-0.20); Immature Granulocytes % (auto) 0.2 %; Lymphocytes # (auto) 2.18 K/uL (1.2-3.4); Lymphocytes % (auto) 38.2 %; Mean Corpuscular Hemoglobin 22.7 pg (25.0-34.0); Mean Corpuscular Hgb Conc 29.4 g/dL (32.0-36.0); Mean Corpuscular Volume 77.3 fL (80.0-100.0); Mean Platelet Volume 8.9 fL (9.4-12.4); Monocytes # (auto) 0.33 K/uL (0.11-0.59); Monocytes % (auto) 5.8 %; Neutrophils # (auto) 2.77 K/uL (1.40-6.50); Neutrophils % (auto) 48.4 %; Platelet Count 512 K/uL (130-400); RDW Coefficient of Variation 15.8 % (11.5-14.5); RDW Standard Deviation 43.8 fL (36.4-46.3); Red Blood Count 4.27 M/uL (4.20-5.40); White Blood Count 5.71 K/ul (4.8-10.8)
[2022-12-31 07:56] LABS: BUN Creatinine Ratio 20.2 (10-20); Calcium 8.9 mg/dl (8.6-10.3); Creatinine Clr Calc Pharmacy 123.6 ml/min; Est GFR (Non-African American) 69.1 ml/min; Magnesium 1.9 mg/dl (1.7-2.4); Potassium 3.5 mmol/L (3.5-5.1)
[2022-12-31] MEDS: SERTRALINE HCL 100 MG TABLET PO SCH (08:00)
[2022-12-31] MEDS: POTASSIUM CHLORIDE 10 MEQ TABCR PO SCH ×2 (08:00→21:01)
[2022-12-31] MEDS: APIXABAN 2.5 MG TAB PO SCH ×2 (08:00→21:01)
[2022-12-31] MEDS: BACLOFEN 10 MG TAB PO SCH ×2 (08:01→21:00)
[2022-12-31] MEDS: METOPROLOL TARTRATE 25 MG TAB PO SCH ×2 (08:01→21:01)
[2022-12-31] MEDS: CYANOCOBALAMIN (B-12) 500 MCG TABLET PO SCH (08:02)
[2022-12-31] MEDS: ARIPiprazole 15 MG TAB PO SCH (08:02)
[2022-12-31] MEDS: NICOTINE 7 MG/24 HR TDSY TD SCH (08:02)
[2022-12-31] MEDS: ASPIRIN 81 MG ECTAB PO SCH (08:02)
[2022-12-31] MEDS: ' INH SCH (08:03)
[2022-12-31] MEDS: FUROSEMIDE 40 MG/4 ML VIAL IV SCH ×2 (08:04→16:32)
[2022-12-31] MEDS: PATIENT'S OWN CONTROLLED MED 1: Methadone PO SCH (21:00)
[2022-12-31] MEDS: METHADONE ORAL SOLN 2 MG/ML PO SCH (21:00)
[2022-12-31] MEDS: MELATONIN 3 MG TAB PO SCH (21:00)
[2022-12-31] MEDS: traZODone HCL 50 MG TAB PO SCH (21:00)
[2022-12-31] MEDS: clonazePAM 0.5 MG TAB PO SCH (21:02)
[2022-12-31] MEDS ORDERED: NON-FORMULARY PATIENT'S OWN MED SCH (21:50)
--- NOTE | 2022-12-31 22:39 | Hospitalist Progress Note ---
Date of Service December 31, 2022 Assessment & Plan (1) Edema: Plan: Possibly 2nd to hypothyroidism (new diagnosis), but also could be side effect of recently increased dose of gabapentin She also likely received copious IV fluids during admission 1 month ago for sepsis Albumin 3.3 thus hypoalbuminemia causing such unlikely. u/a without proteinuria. no cirrhosis. Echo wnl with normal valve function and preserved EF; doubt her edema was due to diastolic dysfunction but can't rule it out 100%. No DVT on b/l LE dopplers. Edema previously improved s/p IV/PO lasix this admission, However on 12/30 is significantly increased and her weight is up -Restart Lasix 40 Mg IV twice daily -Monitor for improvement of edema -Decrease gabapentin to 400 Mg p.o. 3 times daily as increased leg swelling seem to come on with increased dose of gabapentin -Cont K supplementation BID. (2) S/P mitral valve replacement with bioprosthetic valve: Plan: Stable. Echo this admission with normal valve function. (3) Opioid use disorder, severe, in sustained remission: Plan: Cont methadone 72mg daily. This is chronic and confirmed per pharmacy. (4) MENDEZ (generalized anxiety disorder): Plan: Her sertraline is supposed to be 200 mg daily and has been getting 100 mg daily here-increase back to 200 mg daily Continue hydroxyzine as needed (5) Anemia: Plan: Known history of thalassemia. No evidence of GI bleeding Hb- 9.6 - stable. Baseline Hb 9-10 range Rechecked ferritin 138. No iron replacement needed at this time. Replaced low B12. (6) Primary hypothyroidism: Plan: New diagnosis. TSH 8-11. FT4 is low. started synthroid 50mcg daily. repeat TSH 6 weeks. could have been contributing to edema. (7) Morbid obesity: Plan: BMI 58 (8) Thalassemia: Plan: with resulting chronic anemia. no Rx. (9) Hypokalemia: Plan: replaced resolved cont K supplementation due to chronic lasix use (10) Splenic abscess: Plan: Dx 11/19/22 after presenting with fever and generalized weakness to [facility]. CT a/p - 11cm heterogenous fluid collection in the spleen concerning for cyst vs abscess. She was treated with Vancomycin and Zosyn. Transferred to [facility] on 11/22/22. At [facility] she was evaluated by General Surgery. No surgical intervention was performed She was discharged on Augmentin x 7 days on 11/29/22; went to [facility] following [facility]. Still No abdominal complaints. clinically resolved. etiology of this issue uncertain. 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 3 times daily Her baclofen dose is supposed to only be 5 Mg p.o. twice daily-was ordered here as 10 mg twice daily-decrease back to 5 Mg and this may be causing her current drowsiness Continue Eliquis at preventative dose 2.5 Mg p.o. twice daily --of note, she does not recall ever having atrial fibrillation. Her stroke was caused by septic emboli but she reports she is on Eliquis as a preventative (12) Bipolar disorder: Plan: cont abilify 15mg daily cont gabapentin for reduced dose to 400mg TID (13) Left spastic hemiparesis: Plan: 2nd to R MCA territory CVA in the past PT, OT left lower extremity edema: will place lisa wrap on leg. DVT imaging negative, has been ongoing since admission. (14) B12 deficiency: Plan: recent level <200 cont oral b12 1000mcg daily x 6 months (15) Tobacco dependence: Plan: nicoderm patch (16) UTI (urinary tract infection): Plan: lactobacillus Completed 3 days of amoxicillin 500mg TID symptoms resolved (17) Iron deficiency: Plan: previous ferritin was very low at 13 (11/20/22) now >100 H/H stable (18) Snoring: Plan: history highly concerning for severe CARINA will give 2 L NC O2 at HS while here - but needs formal sleep study after d/c Plan DVT proph - eliquis 2.5mg BID dispo - SNF for rehab then home with mother ultimately (but mom's house needs a ramp built)-awaiting placement Admission and Anticipated Discharge Date Admission Date: December 17, 2022 Subjective 37 yo female reports no new symptoms. Review of Systems Review of Systems: All systems reviewed & are unremarkable except as noted in HPI & below Physical Exam Physical Exam: gen - morbidly obese, NAD, sitting in chair, watching TV neck - no JVD mouth - MMM heart - RRR, s1 s2, 1-2/6 systolic murmur LUSB lungs - CTA b/l abd - soft NT ND BS+ ext - trace edema LLE; no edema RLE; dependent edema left arm/hand same as yesterday; pulses feet 2+ b/l neuro - hemiparesis of LUE/LLE - baseline psych - a/o x 3 Results & Data Results & Data Vital Signs (Past 12 Hours) Vital Signs Temp Pulse Resp BP Pulse Ox O2 Del Method 12/31/22 19:12 81 16 93 Room Air 12/31/22 16:24 37.1 C 79 16 104/67 97 Room Air 12/31/22 13:35 73 16 96 Room Air PG Care Time/CCT Total # of Minutes Spent Total Time Spent with Patient: Total time spent is greater than 50% in coordination of care (as documented) at patient's floor/unit and/or counseling patient: Coding Level of Care Code 06153 SUB INP/OBS CARE 2/35MIN Diagnoses Edema R60.9 S/P mitral valve replacement with bioprosthetic valve Z95.3 Opioid use disorder, severe, in sustained remission F11.21 MENDEZ (generalized anxiety disorder) F41.1 Anemia D64.9 Primary hypothyroidism E03.9 Morbid obesity E66.01 Thalassemia D56.9 Hypokalemia E87.6 Splenic abscess D73.3 History of embolic stroke Z86.73 Bipolar disorder F31.9 Left spastic hemiparesis G81.14 B12 deficiency E53.8 Tobacco dependence F17.200 UTI (urinary tract infection) N39.0 Iron deficiency E61.1 Snoring R06.83
[2023-01-01] MEDS: GABAPENTIN 400 MG CAP PO SCH ×3 (05:56→21:55)
[2023-01-01] MEDS: LEVOTHYROXINE SODIUM 50 MCG TABLET PO SCH (05:56)
[2023-01-01] MEDS: Ipratropium HFA Inhaler (Combivent Respimat P&T Subs) INH SCH ×3 (07:09→19:21)
[2023-01-01] MEDS: Albuterol HFA 8 GM Inhaler (Combivent Respimat P&T Subs) INH SCH ×3 (07:09→19:21)
[2023-01-01] MEDS: BACLOFEN 10 MG TAB PO SCH ×2 (08:08→21:54)
[2023-01-01] MEDS: SERTRALINE HCL 100 MG TABLET PO SCH (08:08)
[2023-01-01] MEDS: METOPROLOL TARTRATE 25 MG TAB PO SCH ×2 (08:10→21:56)
[2023-01-01] MEDS: ARIPiprazole 15 MG TAB PO SCH (08:10)
[2023-01-01] MEDS: APIXABAN 2.5 MG TAB PO SCH ×2 (08:10→21:56)
[2023-01-01] MEDS: POTASSIUM CHLORIDE 10 MEQ TABCR PO SCH ×2 (08:10→21:55)
[2023-01-01] MEDS: CYANOCOBALAMIN (B-12) 500 MCG TABLET PO SCH (08:11)
[2023-01-01] MEDS: ASPIRIN 81 MG ECTAB PO SCH (08:11)
[2023-01-01] MEDS: FUROSEMIDE 40 MG/4 ML VIAL IV SCH ×2 (08:11→16:14)
[2023-01-01] MEDS: NICOTINE 7 MG/24 HR TDSY TD SCH (08:11)
[2023-01-01] MEDS: ' INH SCH (12:11)
--- NOTE | 2023-01-01 16:01 | Hospitalist Progress Note ---
Date of Service January 01, 2023 Assessment & Plan (1) Edema: Plan: Related to morbid obesity and associated chronic venous insufficiency and a component of diastolic CHF. Continue Lasix diuresis. Monitor intake and output. No DVT on b/l LE dopplers. (2) S/P mitral valve replacement with bioprosthetic valve: Plan: Stable. Echo this admission with normal valve function. History of bacterial endocarditis prompted mitral valve replacement (3) Opioid use disorder, severe, in sustained remission: Plan: Cont methadone 72mg daily. (4) MENDEZ (generalized anxiety disorder): Plan: Her sertraline is supposed to be 200 mg daily and had been getting 100 mg daily here- increased back to 200 mg daily. Continue hydroxyzine as needed (5) Anemia: Plan: Known history of thalassemia. No evidence of GI bleeding. Serial labs (6) Primary hypothyroidism: Plan: New diagnosis. TSH 8-11. FT4 is low. Now on synthroid 50mcg daily. Repeat TSH 6 weeks. (7) Morbid obesity: Plan: BMI 58. Significant weight loss recommended (8) Thalassemia: Plan: with resulting chronic anemia. No intervention necessary at this time (9) Hypokalemia: Plan: Oral replacement. Serial labs (10) Splenic abscess: Plan: Dx 11/19/22 after presenting with fever and generalized weakness to [facility]. CT a/p - 11cm heterogenous fluid collection in the spleen concerning for cyst vs abscess. She was treated with Vancomycin and Zosyn. Transferred to [facility] on 11/22/22. At [facility] she was evaluated by General Surgery. No surgical intervention was performed. She was discharged on Augmentin x 7 days on 11/29/22; went to [facility] following [facility]. Clinically resolved. 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 Stable. Medical management (12) Bipolar disorder: Plan: cont abilify 15mg daily . Cont gabapentin (13) Left spastic hemiparesis: Plan: 2nd to R MCA territory CVA in the past . Med management. Stable (14) B12 deficiency: Plan: recent level <200. Cont oral b12 1000mcg daily x 6 months (15) Tobacco dependence: Plan: nicoderm patch. Smoking cessation recommended (16) UTI (urinary tract infection): Plan: lactobacillus isolated. Completed 3 days of amoxicillin 500mg TID (17) Iron deficiency: Plan: previous ferritin was very low at 13 (11/20/22). Now >100. H/H stable (18) Snoring: Plan: Possible CARINA. Consider formal sleep study after d/c Plan DVT proph - eliquis 2.5mg BID dispo - SNF for rehab then home with mother ultimately (but mom's house needs a ramp built)-awaiting placement Admission and Anticipated Discharge Date Admission Date: December 17, 2022 Subjective Alert and oriented. No new problems. She is on room air. Will check potassium level again tomorrow, January 02. She remains on parenteral Lasix therapy Review of Systems Review of Systems: Constitutional-no fever or chills. Morbidly obese ENT-no blurred vision, no double vision, no epistaxis, no sore throat Respiratory-no cough, no wheezing. Easily short of breath with exertion Cardiac-no palpitations, no chest pain, no syncope GI-no nausea, vomiting, diarrhea, melena, hematochezia -no urinary retention, no urinary incontinence, no dysuria, no hematuria Musculoskeletal-no joint pain, no muscle tenderness Skin-no bruising, no rashes, no pruritus Neuro-no isolated weakness, no paresthesia, no weakness Psych-no depression, no anxiety Physical Exam Physical Exam: General-alert and oriented x3, no fevers, no chills. Morbidly obese HEENT-head atraumatic and normocephalic, pupils equal and reactive to light, extraocular muscles intact Neck-no lymphadenopathy or thyromegaly, trachea midline Chest-diminished breath sounds bilaterally. No wheezing or rhonchi Cardiac-regular rate and rhythm, normal S1 and S2 Abdomen-normal bowel sounds, nontender, no hepatosplenomegaly Extremities-no cyanosis, clubbing. Neuro-cranial nerves II through XII intact, motor and sensory function within normal limits, strength symmetrical , no focal deficits Psych-flat affect Results & Data Results & Data Vital Signs (Past 12 Hours) Vital Signs Temp Pulse Resp BP Pulse Ox O2 Del Method 01/01/23 15:16 36.3 C L 73 20 108/71 93 Room Air 01/01/23 11:41 69 18 90 Room Air 01/01/23 08:00 Room Air 01/01/23 07:49 36.6 C 73 20 104/70 91 Room Air 01/01/23 07:10 72 16 90 Room Air Laboratory Results 12/31/22 07:07 12/31/22 07:07 PG Care Time/CCT Total # of Minutes Spent Total Time Spent with Patient: Total time spent is greater than 50% in coordination of care (as documented) at patient's floor/unit and/or counseling patient: Coding Level of Care Code 59867 SUB INP/OBS CARE 3/50MIN Diagnoses Edema R60.9 S/P mitral valve replacement with bioprosthetic valve Z95.3 Opioid use disorder, severe, in sustained remission F11.21 MENDEZ (generalized anxiety disorder) F41.1 Anemia D64.9 Primary hypothyroidism E03.9 Morbid obesity E66.01 Thalassemia D56.9 Hypokalemia E87.6 Splenic abscess D73.3 History of embolic stroke Z86.73 Bipolar disorder F31.9 Left spastic hemiparesis G81.14 B12 deficiency E53.8 Tobacco dependence F17.200 UTI (urinary tract infection) N39.0 Iron deficiency E61.1 Snoring R06.83
[2023-01-01] MEDS ORDERED: METHADONE HCL 5 MG TAB PO SCH (21:00)
[2023-01-01] MEDS: clonazePAM 0.5 MG TAB PO SCH (21:53)
[2023-01-01] MEDS: METHADONE ORAL SOLN 2 MG/ML PO SCH (21:53)
[2023-01-01] MEDS: MELATONIN 3 MG TAB PO SCH (21:54)
[2023-01-01] MEDS: traZODone HCL 50 MG TAB PO SCH (21:55)
[2023-01-01] MEDS: PATIENT'S OWN CONTROLLED MED 1: Methadone PO SCH (21:55)
[2023-01-02] MEDS: LEVOTHYROXINE SODIUM 50 MCG TABLET PO SCH (06:11)
[2023-01-02] MEDS: GABAPENTIN 400 MG CAP PO SCH ×2 (06:11→14:42)
[2023-01-02] MEDS: Albuterol HFA 8 GM Inhaler (Combivent Respimat P&T Subs) INH SCH ×3 (07:10→19:46)
[2023-01-02] MEDS: Ipratropium HFA Inhaler (Combivent Respimat P&T Subs) INH SCH ×3 (07:10→19:46)
[2023-01-02] MEDS: SERTRALINE HCL 100 MG TABLET PO SCH (08:52)
[2023-01-02] MEDS: POTASSIUM CHLORIDE 10 MEQ TABCR PO SCH ×2 (08:52→22:24)
[2023-01-02] MEDS: NICOTINE 7 MG/24 HR TDSY TD SCH (08:52)
[2023-01-02] MEDS: METOPROLOL TARTRATE 25 MG TAB PO SCH ×2 (08:52→22:29)
[2023-01-02] MEDS: CYANOCOBALAMIN (B-12) 500 MCG TABLET PO SCH (08:52)
[2023-01-02] MEDS: ASPIRIN 81 MG ECTAB PO SCH (08:52)
[2023-01-02] MEDS: FUROSEMIDE 40 MG/4 ML VIAL IV SCH (08:52)
[2023-01-02] MEDS: APIXABAN 2.5 MG TAB PO SCH ×2 (08:52→22:27)
[2023-01-02] MEDS: ' INH SCH (08:52)
[2023-01-02] MEDS: BACLOFEN 10 MG TAB PO SCH ×2 (08:52→22:27)
[2023-01-02] MEDS: ARIPiprazole 15 MG TAB PO SCH (08:52)
[2023-01-02 09:28] LABS: BUN Creatinine Ratio 23.8 (10-20); Creatinine Clr Calc Pharmacy 122.4 ml/min; Est GFR (African American) 79.1 ml/min; Est GFR (Non-African American) 68.3 ml/min; Potassium 3.6 mmol/L (3.5-5.1)
--- NOTE | 2023-01-02 14:17 | Hospitalist Progress Note ---
Date of Service January 02, 2023 Assessment & Plan (1) Edema: Plan: Related to morbid obesity and associated chronic venous insufficiency and a component of diastolic CHF. Continue Lasix diuresis. IV Lasix switched to oral dosing today, January 02 . Monitor intake and output. No DVT on b/l LE dopplers. (2) S/P mitral valve replacement with bioprosthetic valve: Plan: Stable. Echo this admission with normal valve function. History of bacterial endocarditis prompted mitral valve replacement (3) Opioid use disorder, severe, in sustained remission: Plan: Cont methadone 72mg daily. (4) MENDEZ (generalized anxiety disorder): Plan: Her sertraline is supposed to be 200 mg daily and had been getting 100 mg daily here- increased back to 200 mg daily. Continue hydroxyzine as needed (5) Anemia: Plan: Known history of thalassemia. No evidence of GI bleeding. Serial labs (6) Primary hypothyroidism: Plan: New diagnosis. TSH 8-11. FT4 is low. Now on synthroid 50mcg daily. Repeat TSH 6 weeks. (7) Morbid obesity: Plan: BMI 58. Significant weight loss recommended (8) Thalassemia: Plan: with resulting chronic anemia. No intervention necessary at this time (9) Hypokalemia: Plan: Oral replacement. Serial labs (10) Splenic abscess: Plan: Dx 11/19/22 after presenting with fever and generalized weakness to [facility]. CT a/p - 11cm heterogenous fluid collection in the spleen concerning for cyst vs abscess. She was treated with Vancomycin and Zosyn. Transferred to [facility] on 11/22/22. At [facility] she was evaluated by General Surgery. No surgical intervention was performed. She was discharged on Augmentin x 7 days on 11/29/22; went to [facility] following [facility]. Clinically resolved. 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 Stable. Medical management (12) Bipolar disorder: Plan: cont abilify 15mg daily . Cont gabapentin . Gabapentin dosage uptitrated to her usual home dosage on January 02 (13) Left spastic hemiparesis: Plan: 2nd to R MCA territory CVA in the past . Med management. Stable (14) B12 deficiency: Plan: recent level <200. Cont oral b12 1000mcg daily x 6 months (15) Tobacco dependence: Plan: nicoderm patch. Smoking cessation recommended (16) UTI (urinary tract infection): Plan: lactobacillus isolated. Completed 3 days of amoxicillin 500mg TID (17) Iron deficiency: Plan: previous ferritin was very low at 13 (11/20/22). Now >100. H/H stable (18) Snoring: Plan: Possible CARINA. Consider formal sleep study after d/c Plan DVT proph - eliquis 2.5mg BID dispo - placement pending Admission and Anticipated Discharge Date Admission Date: December 17, 2022 Subjective Alert and oriented. The patient has requested her gabapentin be returned to her usual 600 mg 3 times a day dosage. Parenteral Lasix switched to oral Lasix today. Potassium 3.6. Stable overall Review of Systems Review of Systems: Constitutional-no fever or chills. Morbidly obese ENT-no blurred vision, no double vision, no epistaxis, no sore throat Respiratory-no cough, no wheezing. Easily short of breath with exertion Cardiac-no palpitations, no chest pain, no syncope GI-no nausea, vomiting, diarrhea, melena, hematochezia -no urinary retention, no urinary incontinence, no dysuria, no hematuria Musculoskeletal-no joint pain, no muscle tenderness Skin-no bruising, no rashes, no pruritus Neuro-no isolated weakness, no paresthesia, no weakness Psych-no depression, no anxiety Physical Exam Physical Exam: General-alert and oriented x3, no fevers, no chills. Morbidly obese HEENT-head atraumatic and normocephalic, pupils equal and reactive to light, extraocular muscles intact Neck-no lymphadenopathy or thyromegaly, trachea midline Chest-diminished breath sounds bilaterally. No wheezing or rhonchi Cardiac-regular rate and rhythm, normal S1 and S2 Abdomen-normal bowel sounds, nontender, no hepatosplenomegaly Extremities-no cyanosis, clubbing. Neuro-cranial nerves II through XII intact, motor and sensory function within normal limits, strength symmetrical , no focal deficits Psych-flat affect Results & Data Results & Data Vital Signs (Past 12 Hours) Vital Signs Temp Pulse Resp BP Pulse Ox O2 Del Method 01/02/23 12:50 78 16 96 Room Air 01/02/23 11:26 36.4 C L 77 18 106/67 96 Room Air 01/02/23 07:48 36.4 C L 73 18 125/74 95 Room Air 01/02/23 07:10 68 16 94 Room Air Laboratory Results 12/31/22 07:07 01/02/23 08:30 PG Care Time/CCT Total # of Minutes Spent Total Time Spent with Patient: Total time spent is greater than 50% in coordination of care (as documented) at patient's floor/unit and/or counseling patient: Coding Level of Care Code 43158 SUB INP/OBS CARE 3/50MIN Diagnoses Edema R60.9 S/P mitral valve replacement with bioprosthetic valve Z95.3 Opioid use disorder, severe, in sustained remission F11.21 MENDEZ (generalized anxiety disorder) F41.1 Anemia D64.9 Primary hypothyroidism E03.9 Morbid obesity E66.01 Thalassemia D56.9 Hypokalemia E87.6 Splenic abscess D73.3 History of embolic stroke Z86.73 Bipolar disorder F31.9 Left spastic hemiparesis G81.14 B12 deficiency E53.8 Tobacco dependence F17.200 UTI (urinary tract infection) N39.0 Iron deficiency E61.1 Snoring R06.83
[2023-01-02] MEDS: FUROSEMIDE 80 MG TAB PO SCH (17:14)
[2023-01-02] MEDS: GABAPENTIN 300 MG CAP PO SCH (22:26)
[2023-01-02] MEDS: clonazePAM 0.5 MG TAB PO SCH (22:27)
[2023-01-02] MEDS: METHADONE ORAL SOLN 2 MG/ML PO SCH (22:27)
[2023-01-02] MEDS: traZODone HCL 50 MG TAB PO SCH (22:27)
[2023-01-02] MEDS: PATIENT'S OWN CONTROLLED MED 1: Methadone PO SCH (22:29)
[2023-01-02] MEDS: MELATONIN 3 MG TAB PO SCH (22:29)
[2023-01-03] MEDS: LEVOTHYROXINE SODIUM 50 MCG TABLET PO SCH ×2 (06:32→07:30)
[2023-01-03] MEDS: GABAPENTIN 300 MG CAP PO SCH ×4 (06:33→21:06)
[2023-01-03] MEDS: Albuterol HFA 8 GM Inhaler (Combivent Respimat P&T Subs) INH SCH ×3 (06:58→19:52)
[2023-01-03] MEDS: Ipratropium HFA Inhaler (Combivent Respimat P&T Subs) INH SCH ×3 (06:59→19:52)
[2023-01-03] MEDS: ASPIRIN 81 MG ECTAB PO SCH (08:18)
[2023-01-03] MEDS: FUROSEMIDE 80 MG TAB PO SCH ×2 (08:18→16:23)
[2023-01-03] MEDS: BACLOFEN 10 MG TAB PO SCH ×2 (08:18→21:08)
[2023-01-03] MEDS: CYANOCOBALAMIN (B-12) 500 MCG TABLET PO SCH (08:18)
[2023-01-03] MEDS: ARIPiprazole 15 MG TAB PO SCH (08:18)
[2023-01-03] MEDS: APIXABAN 2.5 MG TAB PO SCH ×2 (08:18→21:07)
[2023-01-03] MEDS: NICOTINE 7 MG/24 HR TDSY TD SCH (08:19)
[2023-01-03] MEDS: SERTRALINE HCL 100 MG TABLET PO SCH (08:19)
[2023-01-03] MEDS: METOPROLOL TARTRATE 25 MG TAB PO SCH ×2 (08:19→21:04)
[2023-01-03] MEDS: POTASSIUM CHLORIDE 10 MEQ TABCR PO SCH ×2 (08:19→21:05)
[2023-01-03] MEDS: ' INH SCH (09:15)
--- NOTE | 2023-01-03 12:51 | Hospitalist Progress Note ---
Date of Service January 03, 2023 Assessment & Plan (1) Edema: Plan: Related to morbid obesity and associated chronic venous insufficiency and a component of diastolic CHF. Continue Lasix diuresis. IV Lasix switched to oral dosing on January 02 . Monitor intake and output. No DVT on b/l LE dopplers. (2) S/P mitral valve replacement with bioprosthetic valve: Plan: Stable. Echo this admission with normal valve function. History of bacterial endocarditis prompted mitral valve replacement (3) Opioid use disorder, severe, in sustained remission: Plan: Cont methadone 72mg daily. (4) MENDEZ (generalized anxiety disorder): Plan: Her sertraline is supposed to be 200 mg daily and had been getting 100 mg daily here- increased back to 200 mg daily. Continue hydroxyzine as needed (5) Anemia: Plan: Known history of thalassemia. No evidence of GI bleeding. Serial labs (6) Primary hypothyroidism: Plan: New diagnosis. TSH 8-11. FT4 is low. Now on synthroid 50mcg daily. Repeat TSH 6 weeks. (7) Morbid obesity: Plan: BMI 58. Significant weight loss recommended (8) Thalassemia: Plan: with resulting chronic anemia. No intervention necessary at this time (9) Hypokalemia: Plan: Oral replacement. Serial labs (10) Splenic abscess: Plan: Dx 11/19/22 after presenting with fever and generalized weakness to [facility]. CT a/p - 11cm heterogenous fluid collection in the spleen concerning for cyst vs abscess. She was treated with Vancomycin and Zosyn. [facility] At [facility] she was evaluated by General Surgery. No surgical intervention was performed. She was discharged on Augmentin x 7 days on 11/29/22; [facility]. Clinically resolved. 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 Stable. Medical management (12) Bipolar disorder: Plan: cont abilify 15mg daily . Cont gabapentin . Gabapentin dosage uptitrated to her usual home dosage on January 02 (13) Left spastic hemiparesis: Plan: 2nd to R MCA territory CVA in the past . Med management. Stable (14) B12 deficiency: Plan: recent level <200. Cont oral b12 1000mcg daily x 6 months (15) Tobacco dependence: Plan: nicoderm patch. Smoking cessation recommended (16) UTI (urinary tract infection): Plan: lactobacillus isolated. Completed 3 days of amoxicillin 500mg TID (17) Iron deficiency: Plan: previous ferritin was very low at 13 (11/20/22). Now >100. H/H stable (18) Snoring: Plan: Possible CARINA. Consider formal sleep study after d/c Plan DVT proph - eliquis 2.5mg BID dispo -plan discharge to [facility] in [facility] tomorrow, January 04 Admission and Anticipated Discharge Date Admission Date: December 17, 2022 Subjective Alert and oriented. Sitting in a chair. She is feeling better overall she says. Case management has arranged for her to go to [facility] in [facility]. The patient is hesitant to go that far away but there is really no other choice because she is on methadone which limits her ability to go anywhere else. Overall, she is clinically stable and should be able to leave this hospital tomorrow, January 04 Review of Systems Review of Systems: Constitutional-no fever or chills. Morbidly obese ENT-no blurred vision, no double vision, no epistaxis, no sore throat Respiratory-no cough, no wheezing. Easily short of breath with exertion Cardiac-no palpitations, no chest pain, no syncope GI-no nausea, vomiting, diarrhea, melena, hematochezia -no urinary retention, no urinary incontinence, no dysuria, no hematuria Musculoskeletal-no joint pain, no muscle tenderness Skin-no bruising, no rashes, no pruritus Neuro-no isolated weakness, no paresthesia, no weakness Psych-no depression, no anxiety Physical Exam Physical Exam: General-alert and oriented x3, no fevers, no chills. Morbidly obese HEENT-head atraumatic and normocephalic, pupils equal and reactive to light, extraocular muscles intact Neck-no lymphadenopathy or thyromegaly, trachea midline Chest-diminished breath sounds bilaterally. No wheezing or rhonchi Cardiac-regular rate and rhythm, normal S1 and S2 Abdomen-normal bowel sounds, nontender, no hepatosplenomegaly Extremities-no cyanosis, clubbing. Neuro-cranial nerves II through XII intact, motor and sensory function within normal limits, strength symmetrical , no focal deficits Psych-flat affect Results & Data Results & Data Vital Signs (Past 12 Hours) Vital Signs Temp Pulse Resp BP Pulse Ox O2 Del Method 01/03/23 11:46 36.6 C 74 18 104/66 95 Room Air 01/03/23 09:49 Room Air 01/03/23 08:00 36.7 C 79 18 119/80 94 Room Air 01/03/23 07:02 70 16 92 Room Air Laboratory Results 12/31/22 07:07 01/02/23 08:30 PG Care Time/CCT Total # of Minutes Spent Total Time Spent with Patient: Total time spent is greater than 50% in coordination of care (as documented) at patient's floor/unit and/or counseling patient: Coding Level of Care Code 01187 SUB INP/OBS CARE 2/35MIN Diagnoses Edema R60.9 S/P mitral valve replacement with bioprosthetic valve Z95.3 Opioid use disorder, severe, in sustained remission F11.21 MENDEZ (generalized anxiety disorder) F41.1 Anemia D64.9 Primary hypothyroidism E03.9 Morbid obesity E66.01 Thalassemia D56.9 Hypokalemia E87.6 Splenic abscess D73.3 History of embolic stroke Z86.73 Bipolar disorder F31.9 Left spastic hemiparesis G81.14 B12 deficiency E53.8 Tobacco dependence F17.200 UTI (urinary tract infection) N39.0 Iron deficiency E61.1 Snoring R06.83
[2023-01-03] MEDS: clonazePAM 0.5 MG TAB PO SCH (21:02)
[2023-01-03] MEDS: METHADONE ORAL SOLN 2 MG/ML PO SCH (21:03)
[2023-01-03] MEDS: MELATONIN 3 MG TAB PO SCH (21:04)
[2023-01-03] MEDS: traZODone HCL 50 MG TAB PO SCH (21:05)
[2023-01-03] MEDS: PATIENT'S OWN CONTROLLED MED 1: Methadone PO SCH (21:09)
[2023-01-04] MEDS: GABAPENTIN 300 MG CAP PO SCH ×3 (06:29→21:57)
[2023-01-04] MEDS: LEVOTHYROXINE SODIUM 50 MCG TABLET PO SCH ×2 (06:30→08:03)
[2023-01-04] MEDS: Albuterol HFA 8 GM Inhaler (Combivent Respimat P&T Subs) INH SCH ×3 (07:30→19:32)
[2023-01-04] MEDS: Ipratropium HFA Inhaler (Combivent Respimat P&T Subs) INH SCH ×3 (07:30→19:32)
[2023-01-04] MEDS: CYANOCOBALAMIN (B-12) 500 MCG TABLET PO SCH (08:04)
[2023-01-04] MEDS: BACLOFEN 10 MG TAB PO SCH ×2 (08:04→21:53)
[2023-01-04] MEDS: APIXABAN 2.5 MG TAB PO SCH ×2 (08:04→21:55)
[2023-01-04] MEDS: ARIPiprazole 15 MG TAB PO SCH (08:04)
[2023-01-04] MEDS: FUROSEMIDE 80 MG TAB PO SCH ×2 (08:04→17:05)
[2023-01-04] MEDS: ASPIRIN 81 MG ECTAB PO SCH (08:04)
[2023-01-04] MEDS: METOPROLOL TARTRATE 25 MG TAB PO SCH ×2 (08:05→21:59)
[2023-01-04] MEDS: ' INH SCH (08:05)
[2023-01-04] MEDS: POTASSIUM CHLORIDE 10 MEQ TABCR PO SCH ×2 (08:05→21:57)
[2023-01-04] MEDS: SERTRALINE HCL 100 MG TABLET PO SCH (08:05)
[2023-01-04] MEDS: NICOTINE 7 MG/24 HR TDSY TD SCH (08:05)
--- NOTE | 2023-01-04 11:44 | Hospitalist Progress Note ---
Date of Service January 04, 2023 Assessment & Plan (1) Edema: Plan: Related to morbid obesity and associated chronic venous insufficiency and a component of diastolic CHF. Continue Lasix diuresis. IV Lasix switched to oral dosing on January 02 . Monitor intake and output. No DVT on b/l LE dopplers. (2) S/P mitral valve replacement with bioprosthetic valve: Plan: Stable. Echo this admission with normal valve function. History of bacterial endocarditis prompted mitral valve replacement (3) Opioid use disorder, severe, in sustained remission: Plan: Cont methadone 72mg daily. (4) MENDEZ (generalized anxiety disorder): Plan: Her sertraline is supposed to be 200 mg daily and had been getting 100 mg daily here- increased back to 200 mg daily. Continue hydroxyzine as needed (5) Anemia: Plan: Known history of thalassemia. No evidence of GI bleeding. Serial labs (6) Primary hypothyroidism: Plan: New diagnosis. TSH 8-11. FT4 is low. Now on synthroid 50mcg daily. Repeat TSH 6 weeks. (7) Morbid obesity: Plan: BMI 58. Significant weight loss recommended (8) Thalassemia: Plan: with resulting chronic anemia. No intervention necessary at this time (9) Hypokalemia: Plan: Oral replacement. Serial labs (10) Splenic abscess: Plan: Dx 11/19/22 after presenting with fever and generalized weakness to [facility]. CT a/p - 11cm heterogenous fluid collection in the spleen concerning for cyst vs abscess. She was treated with Vancomycin and Zosyn. Transferred to [facility] on 11/22/22. At [facility] she was evaluated by General Surgery. No surgical intervention was performed. She was discharged on Augmentin x 7 days on 11/29/22; went to [facility] following [facility]. Clinically resolved. 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 Stable. Medical management (12) Bipolar disorder: Plan: cont abilify 15mg daily . Cont gabapentin . Gabapentin dosage uptitrated to her usual home dosage on January 02 (13) Left spastic hemiparesis: Plan: 2nd to R MCA territory CVA in the past . Med management. Stable (14) B12 deficiency: Plan: recent level <200. Cont oral b12 1000mcg daily x 6 months (15) Tobacco dependence: Plan: nicoderm patch. Smoking cessation recommended (16) UTI (urinary tract infection): Plan: lactobacillus isolated. Completed 3 days of amoxicillin 500mg TID (17) Iron deficiency: Plan: previous ferritin was very low at 13 (11/20/22). Now >100. H/H stable (18) Snoring: Plan: Possible CARINA. Consider formal sleep study after d/c Plan DVT proph - eliquis 2.5mg BID dispo -plan to discharge to either to [facility] rehabilitation in [facility] or to home. Case management will clarify the matter with the patient's mother Admission and Anticipated Discharge Date Admission Date: December 17, 2022 Subjective Stable overall. The patient is stating that she is going to go home this coming Friday and her mother is in agreement. Case management is trying to reach the mother to confirm this. No new problems at this time. Continue current medical management Review of Systems Review of Systems: Constitutional-no fever or chills. Morbidly obese ENT-no blurred vision, no double vision, no epistaxis, no sore throat Respiratory-no cough, no wheezing. Easily short of breath with exertion Cardiac-no palpitations, no chest pain, no syncope GI-no nausea, vomiting, diarrhea, melena, hematochezia -no urinary retention, no urinary incontinence, no dysuria, no hematuria Musculoskeletal-no joint pain, no muscle tenderness Skin-no bruising, no rashes, no pruritus Neuro-no isolated weakness, no paresthesia, no weakness Psych-no depression, no anxiety Physical Exam Physical Exam: General-alert and oriented x3, no fevers, no chills. Morbidly obese HEENT-head atraumatic and normocephalic, pupils equal and reactive to light, extraocular muscles intact Neck-no lymphadenopathy or thyromegaly, trachea midline Chest-diminished breath sounds bilaterally. No wheezing or rhonchi Cardiac-regular rate and rhythm, normal S1 and S2 Abdomen-normal bowel sounds, nontender, no hepatosplenomegaly Extremities-no cyanosis, clubbing. Neuro-cranial nerves II through XII intact, motor and sensory function within normal limits, strength symmetrical , no focal deficits Psych-flat affect Results & Data Results & Data Vital Signs (Past 12 Hours) Vital Signs Temp Pulse Resp BP Pulse Ox O2 Del Method FiO2 07/15/23 08:10 36.6 C 84 16 124/75 96 Room Air 01/04/23 07:21 79 16 91 Room Air 21 Laboratory Results 12/31/22 07:07 01/02/23 08:30 PG Care Time/CCT Total # of Minutes Spent Total Time Spent with Patient: Total time spent is greater than 50% in coordination of care (as documented) at patient's floor/unit and/or counseling patient: Coding Level of Care Code 40561 SUB INP/OBS CARE 2/35MIN Diagnoses Edema R60.9 S/P mitral valve replacement with bioprosthetic valve Z95.3 Opioid use disorder, severe, in sustained remission F11.21 MENDEZ (generalized anxiety disorder) F41.1 Anemia D64.9 Primary hypothyroidism E03.9 Morbid obesity E66.01 Thalassemia D56.9 Hypokalemia E87.6 Splenic abscess D73.3 History of embolic stroke Z86.73 Bipolar disorder F31.9 Left spastic hemiparesis G81.14 B12 deficiency E53.8 Tobacco dependence F17.200 UTI (urinary tract infection) N39.0 Iron deficiency E61.1 Snoring R06.83
[2023-01-04] MEDS: clonazePAM 0.5 MG TAB PO SCH (21:53)
[2023-01-04] MEDS: MELATONIN 3 MG TAB PO SCH (21:53)
[2023-01-04] MEDS: traZODone HCL 50 MG TAB PO SCH (21:53)
[2023-01-04] MEDS: METHADONE ORAL SOLN 2 MG/ML PO SCH (21:53)
[2023-01-04] MEDS: PATIENT'S OWN CONTROLLED MED 1: Methadone PO SCH (21:54)
[2023-01-05] MEDS: GABAPENTIN 300 MG CAP PO SCH ×3 (06:05→22:06)
[2023-01-05] MEDS: LEVOTHYROXINE SODIUM 50 MCG TABLET PO SCH (06:05)
[2023-01-05] MEDS: Ipratropium HFA Inhaler (Combivent Respimat P&T Subs) INH SCH ×3 (07:25→20:07)
[2023-01-05] MEDS: Albuterol HFA 8 GM Inhaler (Combivent Respimat P&T Subs) INH SCH ×3 (07:25→20:07)
[2023-01-05] MEDS: APIXABAN 2.5 MG TAB PO SCH ×2 (08:09→20:43)
[2023-01-05] MEDS: BACLOFEN 10 MG TAB PO SCH ×2 (08:10→20:52)
[2023-01-05] MEDS: CYANOCOBALAMIN (B-12) 500 MCG TABLET PO SCH (08:10)
[2023-01-05] MEDS: ARIPiprazole 15 MG TAB PO SCH (08:10)
[2023-01-05] MEDS: FUROSEMIDE 80 MG TAB PO SCH ×2 (08:10→17:16)
[2023-01-05] MEDS: NICOTINE 7 MG/24 HR TDSY TD SCH (08:10)
[2023-01-05] MEDS: ASPIRIN 81 MG ECTAB PO SCH (08:10)
[2023-01-05] MEDS: METOPROLOL TARTRATE 25 MG TAB PO SCH ×2 (08:10→20:43)
[2023-01-05] MEDS: ' INH SCH (08:10)
[2023-01-05] MEDS: SERTRALINE HCL 100 MG TABLET PO SCH (08:10)
[2023-01-05] MEDS: POTASSIUM CHLORIDE 10 MEQ TABCR PO SCH ×2 (08:16→22:06)
--- NOTE | 2023-01-05 14:29 | Hospitalist Progress Note ---
Date of Service January 05, 2023 Assessment & Plan (1) Edema: Plan: Related to morbid obesity and associated chronic venous insufficiency and a component of diastolic CHF. Continue Lasix diuresis. IV Lasix switched to oral dosing on January 02 . Monitor intake and output. No DVT on b/l LE dopplers. (2) S/P mitral valve replacement with bioprosthetic valve: Plan: Stable. Echo this admission with normal valve function. History of bacterial endocarditis prompted mitral valve replacement (3) Opioid use disorder, severe, in sustained remission: Plan: Cont methadone 72mg daily. (4) MENDEZ (generalized anxiety disorder): Plan: Stable on sertraline. Continue hydroxyzine as needed (5) Anemia: Plan: Known history of thalassemia. No evidence of GI bleeding. Serial labs (6) Primary hypothyroidism: Plan: New diagnosis. TSH 8-11. FT4 is low. Now on synthroid 50mcg daily. Repeat TSH 6 weeks. (7) Morbid obesity: Plan: BMI 58. Significant weight loss recommended (8) Thalassemia: Plan: with resulting chronic anemia. No intervention necessary at this time (9) Hypokalemia: Plan: Oral replacement. Serial labs . Corrected (10) Splenic abscess: Plan: Dx 11/19/22 after presenting with fever and generalized weakness to [facility]. CT a/p - 11cm heterogenous fluid collection in the spleen concerning for cyst vs abscess. She was treated with Vancomycin and Zosyn. Transferred to [facility] on 11/22/22. At [facility] she was evaluated by General Surgery. No surgical intervention was performed. She was discharged on Augmentin x 7 days on 11/29/22; went to [facility] following [facility]. Clinically resolved. 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 Stable. Medical management (12) Bipolar disorder: Plan: cont abilify 15mg daily . Cont gabapentin . Gabapentin dosage uptitrated to her usual home dosage on January 02 (13) Left spastic hemiparesis: Plan: 2nd to R MCA territory CVA in the past . Med management. Stable (14) B12 deficiency: Plan: recent level <200. Cont oral b12 1000mcg daily x 6 months (15) Tobacco dependence: Plan: nicoderm patch. Smoking cessation recommended (16) UTI (urinary tract infection): Plan: lactobacillus isolated. Completed 3 days of amoxicillin 500mg TID (17) Iron deficiency: Plan: previous ferritin was very low at 13 (11/20/22). Now >100. H/H stable (18) Snoring: Plan: Possible CARINA. Consider formal sleep study after d/c Plan DVT proph - eliquis 2.5mg BID dispo -plan to discharge to either to [facility] or to home. Case management will clarify the matter with the patient's mother on January 06 Admission and Anticipated Discharge Date Admission Date: December 17, 2022 Subjective Alert. No new problems. She continues to states she is going home this Friday. Case management will discuss discharge plans with the patient's mother on Friday, tomorrow Review of Systems Review of Systems: Constitutional-no fever or chills. Morbidly obese ENT-no blurred vision, no double vision, no epistaxis, no sore throat Respiratory-no cough, no wheezing. Easily short of breath with exertion Cardiac-no palpitations, no chest pain, no syncope GI-no nausea, vomiting, diarrhea, melena, hematochezia -no urinary retention, no urinary incontinence, no dysuria, no hematuria Musculoskeletal-no joint pain, no muscle tenderness Skin-no bruising, no rashes, no pruritus Neuro-no isolated weakness, no paresthesia, no weakness Psych-no depression, no anxiety Physical Exam Physical Exam: General-alert and oriented x3, no fevers, no chills. Morbidly obese HEENT-head atraumatic and normocephalic, pupils equal and reactive to light, extraocular muscles intact Neck-no lymphadenopathy or thyromegaly, trachea midline Chest-diminished breath sounds bilaterally. No wheezing or rhonchi Cardiac-regular rate and rhythm, normal S1 and S2 Abdomen-normal bowel sounds, nontender, no hepatosplenomegaly Extremities-no cyanosis, clubbing. Neuro-cranial nerves II through XII intact, motor and sensory function within normal limits, strength symmetrical , no focal deficits Psych-flat affect Results & Data Results & Data Vital Signs (Past 12 Hours) Vital Signs Temp Pulse Resp BP Pulse Ox O2 Del Method FiO2 01/05/23 13:15 83 14 93 Room Air 21 01/05/23 08:00 Room Air 01/05/23 07:30 36.8 C 92 H 16 115/71 97 Room Air 01/05/23 07:25 88 15 97 Room Air 21 Laboratory Results 12/31/22 07:07 01/02/23 08:30 PG Care Time/CCT Total # of Minutes Spent Total Time Spent with Patient: Total time spent is greater than 50% in coordination of care (as documented) at patient's floor/unit and/or counseling patient: Coding Level of Care Code 83793 SUB INP/OBS CARE 2/35MIN Diagnoses Edema R60.9 S/P mitral valve replacement with bioprosthetic valve Z95.3 Opioid use disorder, severe, in sustained remission F11.21 MENDEZ (generalized anxiety disorder) F41.1 Anemia D64.9 Primary hypothyroidism E03.9 Morbid obesity E66.01 Thalassemia D56.9 Hypokalemia E87.6 Splenic abscess D73.3 History of embolic stroke Z86.73 Bipolar disorder F31.9 Left spastic hemiparesis G81.14 B12 deficiency E53.8 Tobacco dependence F17.200 UTI (urinary tract infection) N39.0 Iron deficiency E61.1 Snoring R06.83
[2023-01-05] MEDS: PATIENT'S OWN CONTROLLED MED 1: Methadone PO SCH (20:52)
[2023-01-05] MEDS: METHADONE ORAL SOLN 2 MG/ML PO SCH (20:52)
[2023-01-05] MEDS: traZODone HCL 50 MG TAB PO SCH (20:52)
[2023-01-05] MEDS: clonazePAM 0.5 MG TAB PO SCH (20:52)
[2023-01-05] MEDS: MELATONIN 3 MG TAB PO SCH (20:52)
[2023-01-06] MEDS: LEVOTHYROXINE SODIUM 50 MCG TABLET PO SCH (05:29)
[2023-01-06] MEDS: GABAPENTIN 300 MG CAP PO SCH ×3 (05:30→21:49)
[2023-01-06] MEDS: Albuterol HFA 8 GM Inhaler (Combivent Respimat P&T Subs) INH SCH ×3 (07:31→19:21)
[2023-01-06] MEDS: Ipratropium HFA Inhaler (Combivent Respimat P&T Subs) INH SCH ×3 (07:31→19:22)
[2023-01-06] MEDS: APIXABAN 2.5 MG TAB PO SCH ×2 (08:41→21:48)
[2023-01-06] MEDS: CYANOCOBALAMIN (B-12) 500 MCG TABLET PO SCH (08:41)
[2023-01-06] MEDS: METOPROLOL TARTRATE 25 MG TAB PO SCH ×2 (08:41→21:49)
[2023-01-06] MEDS: ASPIRIN 81 MG ECTAB PO SCH (08:42)
[2023-01-06] MEDS: FUROSEMIDE 80 MG TAB PO SCH ×2 (08:42→16:52)
[2023-01-06] MEDS: SERTRALINE HCL 100 MG TABLET PO SCH (08:42)
[2023-01-06] MEDS: NICOTINE 7 MG/24 HR TDSY TD SCH (08:43)
[2023-01-06] MEDS: ARIPiprazole 15 MG TAB PO SCH (08:43)
[2023-01-06] MEDS: ' INH SCH (08:44)
[2023-01-06] MEDS: BACLOFEN 10 MG TAB PO SCH ×2 (08:51→21:48)
[2023-01-06] MEDS: POTASSIUM CHLORIDE 10 MEQ TABCR PO SCH ×2 (08:51→21:51)
--- NOTE | 2023-01-06 11:25 | Hospitalist Progress Note ---
Date of Service January 06, 2023 Assessment & Plan (1) Edema: Plan: Related to morbid obesity and associated chronic venous insufficiency and a component of diastolic CHF. Continue Lasix diuresis. IV Lasix switched to oral dosing on January 02 . Monitor intake and output. No DVT on b/l LE dopplers. (2) S/P mitral valve replacement with bioprosthetic valve: Plan: Stable. Echo this admission with normal valve function. History of bacterial endocarditis prompted mitral valve replacement (3) Opioid use disorder, severe, in sustained remission: Plan: Cont methadone 72mg daily. (4) MENDEZ (generalized anxiety disorder): Plan: Stable on sertraline. Continue hydroxyzine as needed (5) Anemia: Plan: Known history of thalassemia. No evidence of GI bleeding. Serial labs (6) Primary hypothyroidism: Plan: New diagnosis. TSH 8-11. FT4 is low. Now on synthroid 50mcg daily. Repeat TSH 6 weeks. (7) Morbid obesity: Plan: BMI 58. Significant weight loss recommended (8) Thalassemia: Plan: with resulting chronic anemia. No intervention necessary at this time (9) Hypokalemia: Plan: Oral replacement. Serial labs . Corrected (10) Splenic abscess: Plan: Dx 11/19/22 after presenting with fever and generalized weakness to [facility]. CT a/p - 11cm heterogenous fluid collection in the spleen concerning for cyst vs abscess. She was treated with Vancomycin and Zosyn. Transferred to [facility] on 11/22/22. At [facility] she was evaluated by General Surgery. No surgical intervention was performed. She was discharged on Augmentin x 7 days on 11/29/22; went to [facility] following [facility]. Clinically resolved. 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 Stable. Medical management (12) Bipolar disorder: Plan: cont abilify 15mg daily . Cont gabapentin . Gabapentin dosage uptitrated to her usual home dosage on January 02 (13) Left spastic hemiparesis: Plan: 2nd to R MCA territory CVA in the past . Med management. Stable (14) B12 deficiency: Plan: recent level <200. Cont oral b12 1000mcg daily x 6 months (15) Tobacco dependence: Plan: nicoderm patch. Smoking cessation recommended (16) UTI (urinary tract infection): Plan: lactobacillus isolated. Completed 3 days of amoxicillin 500mg TID (17) Iron deficiency: Plan: previous ferritin was very low at 13 (11/20/22). Now >100. H/H stable (18) Snoring: Plan: Possible CARINA. Consider formal sleep study after d/c Plan DVT proph - eliquis 2.5mg BID dispo -anticipate discharge to home on January 08 . Discharged to [facility] is no longer an option due to i nsurance non-coverage Admission and Anticipated Discharge Date Admission Date: December 17, 2022 Subjective Alert and oriented. No new problems. Case management states that her insurance did not cover placement at [facility]. Apparently she will be discharged to her home on Friday this week Review of Systems Review of Systems: Constitutional-no fever or chills. Morbidly obese ENT-no blurred vision, no double vision, no epistaxis, no sore throat Respiratory-no cough, no wheezing. Easily short of breath with exertion Cardiac-no palpitations, no chest pain, no syncope GI-no nausea, vomiting, diarrhea, melena, hematochezia -no urinary retention, no urinary incontinence, no dysuria, no hematuria Musculoskeletal-no joint pain, no muscle tenderness Skin-no bruising, no rashes, no pruritus Neuro-no isolated weakness, no paresthesia, no weakness Psych-no depression, no anxiety Physical Exam Physical Exam: General-alert and oriented x3, no fevers, no chills. Morbidly obese HEENT-head atraumatic and normocephalic, pupils equal and reactive to light, extraocular muscles intact Neck-no lymphadenopathy or thyromegaly, trachea midline Chest-diminished breath sounds bilaterally. No wheezing or rhonchi Cardiac-regular rate and rhythm, normal S1 and S2 Abdomen-normal bowel sounds, nontender, no hepatosplenomegaly Extremities-no cyanosis, clubbing. Neuro-cranial nerves II through XII intact, motor and sensory function within normal limits, strength symmetrical , no focal deficits Psych-flat affect Results & Data Results & Data Vital Signs (Past 12 Hours) Vital Signs Temp Pulse Resp BP Pulse Ox O2 Del Method FiO2 01/06/23 07:32 71 15 91 Room Air 21 01/06/23 07:27 36.7 C 76 18 101/63 93 Room Air 01/06/23 05:37 74 18 95 Room Air Laboratory Results 12/31/22 07:07 01/02/23 08:30 PG Care Time/CCT Total # of Minutes Spent Total Time Spent with Patient: Total time spent is greater than 50% in coordination of care (as documented) at patient's floor/unit and/or counseling patient: Coding Level of Care Code 47027 SUB INP/OBS CARE 2/35MIN Diagnoses Edema R60.9 S/P mitral valve replacement with bioprosthetic valve Z95.3 Opioid use disorder, severe, in sustained remission F11.21 MENDEZ (generalized anxiety disorder) F41.1 Anemia D64.9 Primary hypothyroidism E03.9 Morbid obesity E66.01 Thalassemia D56.9 Hypokalemia E87.6 Splenic abscess D73.3 History of embolic stroke Z86.73 Bipolar disorder F31.9 Left spastic hemiparesis G81.14 B12 deficiency E53.8 Tobacco dependence F17.200 UTI (urinary tract infection) N39.0 Iron deficiency E61.1 Snoring R06.83
[2023-01-06] MEDS: hydrOXYzine HCl 25 MG TAB PO PRN (14:37)
[2023-01-06] MEDS: METHADONE ORAL SOLN 2 MG/ML PO SCH (21:48)
[2023-01-06] MEDS: MELATONIN 3 MG TAB PO SCH (21:48)
[2023-01-06] MEDS: clonazePAM 0.5 MG TAB PO SCH (21:48)
[2023-01-06] MEDS: PATIENT'S OWN CONTROLLED MED 1: Methadone PO SCH (21:49)
[2023-01-06] MEDS: traZODone HCL 50 MG TAB PO SCH (21:49)
[2023-01-07] MEDS: LEVOTHYROXINE SODIUM 50 MCG TABLET PO SCH (06:19)
[2023-01-07] MEDS: GABAPENTIN 300 MG CAP PO SCH ×3 (06:19→22:05)
[2023-01-07] MEDS: Albuterol HFA 8 GM Inhaler (Combivent Respimat P&T Subs) INH SCH ×3 (07:27→18:28)
[2023-01-07] MEDS: Ipratropium HFA Inhaler (Combivent Respimat P&T Subs) INH SCH ×3 (07:27→18:28)
[2023-01-07] MEDS: NICOTINE 7 MG/24 HR TDSY TD SCH (08:49)
[2023-01-07] MEDS: ' INH SCH (08:51)
[2023-01-07] MEDS: METOPROLOL TARTRATE 25 MG TAB PO SCH ×2 (08:51→20:21)
[2023-01-07] MEDS: ARIPiprazole 15 MG TAB PO SCH (08:51)
[2023-01-07] MEDS: APIXABAN 2.5 MG TAB PO SCH ×2 (08:51→20:19)
[2023-01-07] MEDS: SERTRALINE HCL 100 MG TABLET PO SCH (08:51)
[2023-01-07] MEDS: ASPIRIN 81 MG ECTAB PO SCH (08:52)
[2023-01-07] MEDS: FUROSEMIDE 80 MG TAB PO SCH ×2 (08:52→17:50)
[2023-01-07] MEDS: CYANOCOBALAMIN (B-12) 500 MCG TABLET PO SCH (08:52)
[2023-01-07] MEDS: POTASSIUM CHLORIDE 10 MEQ TABCR PO SCH (09:01)
[2023-01-07] MEDS: BACLOFEN 10 MG TAB PO SCH ×2 (09:01→20:18)
[2023-01-07] MEDS: NICOTINE POLACRILEX 2 MG GUM MT PRN ×2 (09:41→17:50)
[2023-01-07] MEDS ORDERED: clonazePAM 0.5 MG TAB PO STA (09:52)
[2023-01-07 10:32] LABS: Hematocrit (blood only) 32.3 % (37.0-47.0); Hemoglobin 9.8 g/dl (12.0-16.0); Mean Corpuscular Hemoglobin 22.4 pg (25.0-34.0); Mean Corpuscular Hgb Conc 30.3 g/dL (32.0-36.0); Mean Corpuscular Volume 73.7 fL (80.0-100.0); Platelet Count 580 K/uL (130-400); RDW Standard Deviation 39.9 fL (36.4-46.3); Red Blood Count 4.38 M/uL (4.20-5.40); White Blood Count 6.78 K/ul (4.8-10.8)
[2023-01-07 10:45] LABS: BUN Creatinine Ratio 23.2 (10-20); Calcium 9.1 mg/dl (8.6-10.3); Creatinine Clr Calc Pharmacy 133.8 ml/min; Est GFR (African American) 89.3 ml/min; Est GFR (Non-African American) 77.1 ml/min; Magnesium 1.8 mg/dl (1.7-2.4); Potassium 3.1 mmol/L (3.5-5.1)
[2023-01-07] MEDS ORDERED: POTASSIUM CHLORIDE CRTAB 20 MEQ TABCR PO STA (11:39)
[2023-01-07] MEDS: POTASSIUM CHLORIDE CRTAB 20 MEQ TABCR PO SCH ×2 (13:58→20:18)
--- NOTE | 2023-01-07 19:05 | Hospitalist Progress Note ---
Date of Service January 07, 2023 Assessment & Plan (1) Edema: Plan: Possibly 2nd to hypothyroidism (new diagnosis). Albumin 3.3 thus hypoalbuminemia causing such unlikely. u/a without proteinuria. no cirrhosis. Echo wnl with normal valve function and preserved EF; doubt her edema was due to diastolic dysfunction but can't rule it out 100%. No DVT on b/l LE dopplers. Abilify + gabapentin can cause edema and weight gain. untreated CARINA may be contributing to edema as well (see below). was taking lasix 40mg BID at home this dose did not keep edema at bay was increased to 80mg BID last week edema now improved BUN and Cr remain stable with increased dose of lasix supplement/replace K repeat BMP in am if she goes home on 80mg BID will need to watch her labs & volume status cautiously (2) S/P mitral valve replacement with bioprosthetic valve: Plan: Stable. Echo this admission with normal valve function. (3) Opioid use disorder, severe, in sustained remission: Plan: Cont methadone 72mg daily. This is chronic and confirmed per our pharmacy. (4) MENDEZ (generalized anxiety disorder): Plan: Cont usual meds she requested an additional klonipin today - gave 0.5mg po x 1 this am (5) Anemia: Plan: Known history of thalassemia. No evidence of GI bleeding Hb on 12/17 - 9.8. Today - 9.8 - stable. Baseline Hb 9-10 range? Recent ferritin - 138. No iron replacement needed at this time. Replace low B12. (6) Primary hypothyroidism: Plan: New diagnosis. TSH 8-11. FT4 is low. started synthroid 50mcg daily. replacement started in late November. thus, repeat TSH in early January and adjust as needed. could have been contributing to edema. (7) Morbid obesity: Plan: BMI 57 (8) Thalassemia: Plan: with resulting chronic anemia. no Rx. (9) Hypokalemia: Plan: replaced resolved now low again due to increased lasix dose increase K supplementation to 20meq TID repeat BMP am mag level wnl (10) Splenic abscess: Plan: Dx 11/19/22 after presenting with fever and generalized weakness to [facility]. CT a/p - 11cm heterogenous fluid collection in the spleen concerning for cyst vs abscess. She was treated with Vancomycin and Zosyn. Transferred to [facility] on 11/22/22. At [facility] she was evaluated by General Surgery. No surgical intervention was performed She was discharged on Augmentin x 7 days on 11/29/22; went to [facility] following [facility]. Still No abdominal complaints. clinically resolved. etiology of this issue was uncertain. 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 (12) Bipolar disorder: Plan: cont abilify 15mg daily cont gabapentin 600mg TID stable (13) Left spastic hemiparesis: Plan: 2nd to R MCA territory CVA in the past PT, OT (14) B12 deficiency: Plan: recent level <200 cont oral b12 1000mcg daily x 6 months (15) Tobacco dependence: Plan: nicoderm patch (16) UTI (urinary tract infection): Plan: 2nd lactobacillus s/p abx resolved (17) Iron deficiency: Plan: previous ferritin was very low at 13 (11/20/22) now >100 H/H stable (18) Snoring: Plan: history highly concerning for severe CARINA overnight oximetry study tonight NC O2 at d/c if she qualifies then needs formal sleep study as outpatient could be contributing to edema issues Plan DVT proph - eliquis 2.5mg BID dispo - home with mother tomorrow Admission and Anticipated Discharge Date Admission Date: December 17, 2022 Subjective no issues overnight anxious for d/c home tomorrow the ramp at her mother's house has not been built, but the rest of her home has been modified to accommodate her staff report ongoing desats and witnessed apneas with sleep edema resolved she feels well Review of Systems Review of Systems: cv - no cp pulm - no dyspnea GI - no abd pain, no diarrhea, no constipation Physical Exam Physical Exam: gen - morbidly obese, NAD, laying in bed, watching TV neck - no JVD mouth - MMM heart - RRR, s1 s2, 1-2/6 systolic murmur LUSB lungs - CTA b/l; modestly decreased BS bases abd - soft NT ND BS+ ext - no edema b/l legs; pulses feet 2+ b/l neuro - hemiparesis of LUE/LLE - baseline psych - a/o x 3 Results & Data Results & Data Vital Signs (Past 12 Hours) Vital Signs Temp Pulse Resp BP Pulse Ox O2 Del Method 01/07/23 18:29 78 16 93 Room Air 01/07/23 17:52 111/78 01/07/23 16:20 36.6 C 77 16 98/53 L 94 Room Air 01/07/23 11:59 80 16 95 Nasal Cannula 01/07/23 07:25 Room Air 01/07/23 07:25 36.6 C 83 18 115/71 96 Room Air 01/07/23 07:30 82 16 92 Room Air Laboratory Results Laboratory Results - last 24 hr 01/07/23 01/07/23 10:04 10:04 WBC 6.78 RBC 4.38 Hgb 9.8 L Hct 32.3 L MCV 73.7 L MCH 22.4 L MCHC 30.3 L RDW Std Deviation 39.9 RDW Coeff of Alexia 15.0 H Plt Count 580 H MPV 9.0 L Sodium 136 Potassium 3.1 L Chloride 98 Carbon Dioxide 31 Anion Gap 7 BUN 22 Creatinine 0.95 Est Cr Clr Drug Dosing 133.8 Est GFR ( Amer) 89.3 Est GFR (Non-Af Amer) 77.1 BUN/Creatinine Ratio 23.2 H Glucose 147 H Calcium 9.1 Magnesium 1.8 PG Care Time/CCT Total # of Minutes Spent Total Time Spent with Patient: Total time spent is greater than 50% in coordination of care (as documented) at patient's floor/unit and/or counseling patient: Coding Level of Care Code 04892 SUB INP/OBS CARE 2/35MIN Diagnoses Edema R60.9 S/P mitral valve replacement with bioprosthetic valve Z95.3 Opioid use disorder, severe, in sustained remission F11.21 MENDEZ (generalized anxiety disorder) F41.1 Anemia D64.9 Primary hypothyroidism E03.9 Morbid obesity E66.01 Thalassemia D56.9 Hypokalemia E87.6 Splenic abscess D73.3 History of embolic stroke Z86.73 Bipolar disorder F31.9 Left spastic hemiparesis G81.14 B12 deficiency E53.8 Tobacco dependence F17.200 UTI (urinary tract infection) N39.0 Iron deficiency E61.1 Snoring R06.83
[2023-01-07] MEDS: PATIENT'S OWN CONTROLLED MED 1: Methadone PO SCH (20:17)
[2023-01-07] MEDS: METHADONE ORAL SOLN 2 MG/ML PO SCH (20:28)
[2023-01-07] MEDS: clonazePAM 0.5 MG TAB PO SCH (20:28)
[2023-01-07] MEDS: traZODone HCL 50 MG TAB PO SCH (20:28)
[2023-01-07] MEDS: MELATONIN 3 MG TAB PO SCH (20:28)
[2023-01-08] MEDS: GABAPENTIN 300 MG CAP PO SCH (06:10)
[2023-01-08] MEDS: LEVOTHYROXINE SODIUM 50 MCG TABLET PO SCH (06:10)
[2023-01-08] MEDS: Ipratropium HFA Inhaler (Combivent Respimat P&T Subs) INH SCH (07:12)
[2023-01-08] MEDS: Albuterol HFA 8 GM Inhaler (Combivent Respimat P&T Subs) INH SCH (07:13)
[2023-01-08] MEDS: BACLOFEN 10 MG TAB PO SCH (08:46)
[2023-01-08] MEDS: ARIPiprazole 15 MG TAB PO SCH (08:46)
[2023-01-08] MEDS: SERTRALINE HCL 100 MG TABLET PO SCH (08:47)
[2023-01-08] MEDS: NICOTINE 7 MG/24 HR TDSY TD SCH (08:47)
[2023-01-08] MEDS: METOPROLOL TARTRATE 25 MG TAB PO SCH (08:51)
[2023-01-08] MEDS: ASPIRIN 81 MG ECTAB PO SCH (08:52)
[2023-01-08] MEDS: FUROSEMIDE 80 MG TAB PO SCH (08:52)
[2023-01-08] MEDS: POTASSIUM CHLORIDE CRTAB 20 MEQ TABCR PO SCH (08:52)
[2023-01-08] MEDS: CYANOCOBALAMIN (B-12) 500 MCG TABLET PO SCH (08:53)
[2023-01-08] MEDS: APIXABAN 2.5 MG TAB PO SCH (08:53)
[2023-01-08] MEDS: ' INH SCH (08:54)
[2023-01-08] MEDS: NICOTINE POLACRILEX 2 MG GUM MT PRN (08:55)
[2023-01-08 09:07] LABS: BUN Creatinine Ratio 23.5 (10-20); Calcium 9.4 mg/dl (8.6-10.3); Creatinine Clr Calc Pharmacy 129.1 ml/min; Est GFR (Non-African American) 74.2 ml/min; Potassium 3.6 mmol/L (3.5-5.1)
--- NOTE | 2023-01-08 11:03 | Discharge Summary ---
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 Patient was admitted to [facility] on 11/19/22 after presenting with fever and generalized weakness as well as fever and urinary retention. Patient found to have an 11cm heterogenous fluid collection in the spleen concerning for cyst vs abscess. She was treated with Vancomycin and Zosyn. Patient was transferred to [facility] on 11/22/22 for further evaluation and possible drainage of her splenic collection. At [facility] she was evaluated by General Surgery. No surgical intervention was performed as patient was afebrile, stable and did not appear to have an infection. Her blood cultures were POSITIVE for staph hemolyticus consistent with contamination. She was discharged on Augmentin x 7 days. She was discharged to [facility] facility on 11/29/22. Patient reports she did well at [facility]. Steady gains in therapy noted. She was able to walk 100 feet with minimal assistance. She was discharged home on 12/12/22. Since being home, patient reports she has not been doing well. She reports progressive edema involving her bilateral LE as well as thighs, abdominal wall, hands and face. She reports she can only walk 5 feet at home and her mobility is limited secondary to her edema as well as pain and weakness in her legs and feet. She also states that her legs turn purple if they are left down. She denies fever, chills, cough, SOB, palpitations, dizziness or syncope. Denies abdominal pain, nausea, vomiting, diarrhea or constipation. She reports decrease in UOP - she has been taking Lasix twice daily with minimal UOP. No dysuria or hematuria noted. No flank pain. She reports stable orthopnea since having her valvular surgery in June 2022. Unchanged. She sleeps in a recliner chair. In the ER she is afebrile, HD stable. ER Course: Cultres obtained Discharge Exam gen - morbidly obese, NAD, sitting in chair, watching TV neck - no JVD mouth - MMM heart - RRR, s1 s2, 1-2/6 systolic murmur LUSB lungs - CTA b/l abd - soft NT ND BS+ ext - trace edema LLE; no edema RLE; dependent edema left arm/hand same as yesterday; pulses feet 2+ b/l neuro - hemiparesis of LUE/LLE - baseline psych - a/o x 3 Discharge Data Allergies Allergy/AdvReac Type Severity Reaction Status Date / Time sulfamethoxazole Allergy Severe Anaphylaxis Verified 12/16/22 17:56 [From Bactrim] trimethoprim [From Bactrim] Allergy Severe Anaphylaxis Verified 12/16/22 17:56 atorvastatin AdvReac Intermediate Muscle Pain Verified 12/16/22 17:56 Consultations 12/16/22 19:05 ED Decision to Admit Stat Ordered Studies 12/16/22 18:05 CT head/brain wo con Stat 12/26/22 19:16 US venous doppler LE BI Routine Hospital Course (1) Edema: Possibly 2nd to hypothyroidism (new diagnosis). Albumin 3.3 thus hypoalbuminemia causing such unlikely. u/a without proteinuria. no cirrhosis. Echo wnl with normal valve function and preserved EF; doubt her edema was due to diastolic dysfunction but can't rule it out 100%. No DVT on b/l LE dopplers. Abilify + gabapentin can cause edema and weight gain. untreated CARINA may be contributing to edema as well (see below). was taking lasix 40mg BID at home this dose did not keep edema at bay was increased to 80mg BID last week edema now improved BUN and Cr remain stable with increased dose of lasix supplement/replace K repeat BMP in am if she goes home on 80mg BID will need to watch her labs & volume status cautiously (2) S/P mitral valve replacement with bioprosthetic valve: Stable. Echo this admission with normal valve function. (3) Opioid use disorder, severe, in sustained remission: Cont methadone 72mg daily. This is chronic and confirmed per our pharmacy. (4) MENDEZ (generalized anxiety disorder): Cont usual meds she requested an additional klonipin today - gave 0.5mg po x 1 this am (5) Anemia: Known history of thalassemia. No evidence of GI bleeding Hb on 12/17 - 9.8. Today - 9.8 - stable. Baseline Hb 9-10 range? Recent ferritin - 138. No iron replacement needed at this time. Replace low B12. (6) Primary hypothyroidism: New diagnosis. TSH 8-11. FT4 is low. started synthroid 50mcg daily. replacement started in late November. thus, repeat TSH in early January and adjust as needed. could have been contributing to edema. (7) Morbid obesity: BMI 57 (8) Thalassemia: with resulting chronic anemia. no Rx. (9) Hypokalemia: replaced resolved now low again due to increased lasix dose increase K supplementation to 20meq TID repeat BMP am mag level wnl (10) Splenic abscess: Dx 11/19/22 after presenting with fever and generalized weakness to [facility]. CT a/p - 11cm heterogenous fluid collection in the spleen concerning for cyst vs abscess. She was treated with Vancomycin and Zosyn. Transferred to [facility] on 11/22/22. At [facility] she was evaluated by General Surgery. No surgical intervention was performed She was discharged on Augmentin x 7 days on 11/29/22; went to [facility] following [facility]. Still No abdominal complaints. clinically resolved. etiology of this issue was uncertain. 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 (12) Bipolar disorder: cont abilify 15mg daily cont gabapentin 600mg TID stable (13) Left spastic hemiparesis: 2nd to R MCA territory CVA in the past PT, OT (14) B12 deficiency: recent level <200 cont oral b12 1000mcg daily x 6 months (15) Tobacco dependence: nicoderm patch (16) UTI (urinary tract infection): 2nd lactobacillus s/p abx resolved (17) Iron deficiency: previous ferritin was very low at 13 (11/20/22) now >100 H/H stable (18) Snoring: history highly concerning for severe CARINA overnight oximetry study tonight NC O2 at d/c if she qualifies then needs formal sleep study as outpatient could be contributing to edema issues Plan DVT proph - eliquis 2.5mg BID dispo - home with mother tomorrow Discharge Plan Discharge Items Patient Disposition: Home - Home Health Services Reason For Visit: EDEMA, WEAKNESS Discharge Diagnosis: 1. edema - likely due to combination of new-onset hypothyroidism, side effects from medications, undiagnosed/untreated sleep apnea, etc 2. hypothyroidism 3. snoring; concern for undiagnosed sleep apnea 4. vitamin B12 deficiency 5. chronic methadone use Activity: Resume your previous activity Non-emergency contact: Primary Care Provider Call non-emergency contact if: you have any medication questions and your symptoms worsen Follow-up/Referrals: Stacey Arce MD [Primary Care Provider] - (within 1 week) Diet: Low Sodium (2gm) Fluids: 1800ml (7 cups) Addtl Attending Provider Instructions: Ms Salcido, You were hospitalized due to worsening edema/fluid retention. You received IV diuretics (furosemide) during your stay for the fluid retention with good results. We performed various tests to determine the cause of your edema. Your heart ultrasound (echocardiogram) was normal. Your artificial valve is working well. Dopplers of your legs did not show any DVT blood clots. We did discover that you have hypothyroidism, or underactive thyroid (see handout). This can worsen edema issues. It is also possible that some of your medications (gabapentin, aripiprazole) are worsening your edema & leading to weight gain. Further, we are very suspicious for undiagnosed sleep apnea. Untreated sleep apnea can theoretically cause increased swelling. You have been started on thyroid medication for the hypothyroidism. We have also increase your diuretic - furosemide - to 80mg twice daily. Previously you took 40mg twice daily. During the stay you were noted to have anemia. Your red cell number, or hemoglobin, runs about 9-10. By report you have an inherited form of anemia called thalaseemia. There is nothing to do for thalaseemia. You previously had low iron levels and your iron stores were replenished with IV iron. Your most recent iron levels were normal. We discovered that you have low Vitamin B12 levels. Your B12 level was 193. Most young people have B12 levels in the 400-500 range. Recommendations - 1. INCREASE your furosemide to 80mg twice daily. Take your morning dose about 8am and your evening dose about 4-5pm. This is your diuretic to keep the fluid/edema off. The larger dose prescription was sent to [facility] 2. Take a potassium supplement twice daily. This prescription was sent to [facility] 3. Take a magnesium supplement daily. This prescription was sent to [facility] 4. Take thyroid medication. This is called levothyroxine. Take 50mcg each morning on empty stomach. Prescription sent to [facility] for you. 5. Take an dnbc-set-upjfwfk vitamin B12 supplement daily x 6 months. Take 1000mcg (1mg) each day. 6. If you wish to remain smoke-free please use nicoderm patch 7mg once a day for 30 additional days. If you go back to smoking please discontinue the patch right away. Prescription sent to [facility] for you. 7. If possible check your weight each morning upon awakening. If you notice any weight gain of more than 3 pounds over 1-2 days this may be a sign of fluid weight gain. If you are noticing progressive weight gains please contact your doctors right away. In most cases we can manage this via phone or in the office by making adjustments to your diuretics. Again check your weight each day on the same scale. Keep a tally of your weights in a notebook. 8. Please talk to your family doctor about getting a formal sleep study to diagnose sleep apnea. Pending Studies at Discharge: No Stand-Alone Forms: My [facility], Smoking Cessation Medications and DC Order Prescriptions: New nicotine 7 mg/24 hr Patch 24 Hour 7 mg transdermal QAM Qty: 30 0RF aripiprazole [Abilify] 15 mg Tablet 15 mg PO DAILY Qty: 30 0RF levothyroxine [Synthroid] 50 mcg Tablet 50 mcg PO DAILYBB Qty: 30 2RF cyanocobalamin (vitamin B-12) 1,000 mcg tablet 1,000 mcg PO DAILY Qty: 90 1RF Rx Instructions: purchase [id number]. potassium chloride 20 mEq tablet extended release 20 meq PO BID Qty: 60 2RF magnesium oxide 400 mg (241.3 mg magnesium) tablet 400 mg PO DAILY Qty: 30 2RF Continued (DME) Lift Chair Misc See Rx Instructions .Route Qty: 1 0RF Rx Instructions: As directed (DME) miscellaneous medical supply Misc See Rx Instructions .ROUTE .MEDSUPPLY Qty: 1 0RF Rx Instructions: Left wrist splint Dx: lt spastic hemiparesis metoprolol tartrate 50 mg tablet 25 mg PO BID Qty: 30 2RF Flovent Diskus 100 mcg/actuation blister with device 1 inh inhalation BID Qty: 60 2RF trazodone 50 mg tablet 50 mg PO HS Qty: 30 2RF sertraline 100 mg tablet 200 mg PO DAILY Qty: 60 2RF epinephrine 0.3 mg/0.3 mL auto-injector 0.3 mg IM .COMPLEX PRN (Reason: anaphylaxis) Qty: 2 1RF Rx Instructions: 0.3 mg intramuscularly once but repeat dose x1 in 5-15min if needed PRN; After first injection, proceed to the ER (DME) Wheelchair (Manual) Device See Rx Instructions .Route Qty: 1 0RF Rx Instructions: As [id number] Z86.73 (DME) Hospital Bed Misc See Rx Instructions .Route Qty: 1 0RF Rx Instructions: As directed G81.9, I63.411 (DME) Manual Wheelchair Device See Rx Instructions .Route Qty: 1 0RF Rx Instructions: [address] drive WC please G81.9 ketoconazole 2 % cream 1 applic topical BID 28 Days Qty: 15 0RF methadone 10 mg Tablet 72 mg PO DAILY Rx Instructions: confirmed via patients clinic melatonin 3 mg Tablet 3 mg PO HS aspirin 81 mg Tablet,Chewable 81 mg PO DAILY multivitamin with minerals Tablet 1 tab PO DAILY Combivent Respimat 20-100 mcg/actuation Mist 1 puff INHALATION TID gabapentin 600 mg tablet 600 mg PO Q8H clonazepam 0.5 mg tablet 0.5 mg PO HS Changed furosemide 80 mg tablet 80 mg PO BID Qty: 60 2RF Rx Instructions: take in AM and about 4-5pm each day. apixaban 2.5 mg tablet 2.5 mg PO BID Qty: 60 0RF baclofen 10 mg tablet 10 mg PO BID Qty: 60 0RF Discharge Orders: Discharge Order (Routine); Ordered 01/08/23 Ordered By: Kvng Schwab/Other Patient Handouts: ED Hypothyroidism Admission Data Admit Date/Time: 12/17/22 08:09 Attending Provider: Kvng Monroe Admit Provider: Leigha Peo Primary Care Provider: Stacey Arce Other Providers: Leigha Poe Coding Diagnoses Edema R60.9 S/P mitral valve replacement with bioprosthetic valve Z95.3 Opioid use disorder, severe, in sustained remission F11.21 MENDEZ (generalized anxiety disorder) F41.1 Anemia D64.9 Primary hypothyroidism E03.9 Morbid obesity E66.01 Thalassemia D56.9 Hypokalemia E87.6 Splenic abscess D73.3 History of embolic stroke Z86.73 Bipolar disorder F31.9 Left spastic hemiparesis G81.14 B12 deficiency E53.8 Tobacco dependence F17.200 UTI (urinary tract infection) N39.0 Iron deficiency E61.1 Snoring R06.83
== END 2023-01-08 12:06 | disposition home health service (06) | DRG 643 ==
LOC: 2N 15:38 → ED 15:38 → SUATTDRO 19:42 → 2N 20:49 → SUATTDRO 12-17 08:09 → 3W 01-03 21:36

== ENCOUNTER 2023-01-17 14:45 | Inpatient (IN) ==
[2023-01-17 16:01] LABS: Basophils # (auto) 0.04 K/uL (0-0.2); Basophils % (auto) 0.5 %; Eosinophils # (auto) 0.25 K/uL (0-0.50); Eosinophils % (auto) 3.3 %; Hematocrit (blood only) 31.9 % (37.0-47.0); Hemoglobin 9.4 g/dl (12.0-16.0); Immature Granulocytes # (auto) 0.02 K/uL (0.01-0.20); Immature Granulocytes % (auto) 0.3 %; Lymphocytes # (auto) 1.41 K/uL (1.2-3.4); Lymphocytes % (auto) 18.5 %; Mean Corpuscular Hemoglobin 22.4 pg (25.0-34.0); Mean Corpuscular Hgb Conc 29.5 g/dL (32.0-36.0); Mean Corpuscular Volume 76.1 fL (80.0-100.0); Mean Platelet Volume 9.4 fL (9.4-12.4); Monocytes # (auto) 0.45 K/uL (0.11-0.59); Monocytes % (auto) 5.9 %; Neutrophils # (auto) 5.46 K/uL (1.40-6.50); Neutrophils % (auto) 71.5 %; Platelet Count 394 K/uL (130-400); RDW Coefficient of Variation 14.5 % (11.5-14.5); RDW Standard Deviation 39.4 fL (36.4-46.3); Red Blood Count 4.19 M/uL (4.20-5.40); White Blood Count 7.63 K/ul (4.8-10.8)
--- NOTE | 2023-01-17 16:06 | Electrocardiogram Report ---
Test Reason : Blood Pressure : / mmHG Vent. Rate : 097 BPM Atrial Rate : 097 BPM P-R Int : 148 ms QRS Dur : 092 ms QT Int : 398 ms P-R-T Axes : 053 037 035 degrees QTc Int : 505 ms Normal sinus rhythm Low voltage QRS Prolonged QT Abnormal ECG When compared with ECG of 16-DEC-2022 15:47, No significant change was found Confirmed by Shankar Johnson ([id number]) on 01/17/2023 4:06:19 PM Referred By: Confirmed By:Shankar Johnson
[2023-01-17 16:19] LABS: Alanine Aminotransferase 8 U/L (7-52); Albumin Globulin Ratio 0.8 (0.9-2); Albumin Level 3.8 gm/dl (3.4-5.0); Alkaline Phosphatase 104 U/L (34-104); Anion Gap 8 (3-11); Aspartate Aminotransferase 13 U/L (13-39); Bilirubin,Total 0.2 mg/dl (0.2-1.0); Blood Urea Nitrogen 13 mg/dl (6-23); Carbon Dioxide 32 mmol/L (21-32); Chloride 100 mmol/L (98-107); Creatinine Clr Calc Pharmacy 143.9 ml/min; Est GFR (African American) 91.6 ml/min; Est GFR (Non-African American) 79.1 ml/min; Globulin 4.5 gm/dl (2.5-4.0); Glucose 87 mg/dl (70-99(Fasting)); Magnesium 2.2 mg/dl (1.7-2.4); Potassium 4.1 mmol/L (3.5-5.1); Sodium 140 mmol/L (136-145); Total Protein 8.3 gm/dl (6.0-8.3)
[2023-01-17 16:24] LABS: Troponin I High Sensitivity < 2.3 pg/ml (0-14)
--- NOTE | 2023-01-17 17:00 | XRay Report ---
XR chest 1V portable HISTORY: Dyspnea COMPARISON: Chest 12/20/2022. FINDINGS: No pneumothorax. No pleural effusions. There are poststernotomy changes. The heart remains mildly enlarged. There is mild central pulmonary vascular congestion without overt edema. No new foca l lung consolidations to suggest pneumonia. IMPRESSION: Cardiomegaly with mild congestive change. This has slightly improved. ACT 112: Negative or not required by law. Electronically signed by: Mauricio Matos M.D. 01/17/2023 4:59 PM
[2023-01-17] MEDS ORDERED: FUROSEMIDE 40 MG/4 ML VIAL IV ONE (17:21)
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
[2023-01-17] MEDS ORDERED: NICOTINE 14 MG/24 HR PATCH TD PRN (19:55)
[2023-01-17 20:11] LABS: Appearance Urine Clear (Clear); Bilirubin Urine Negative (Negative); Blood Urine Negative (Negative); Color Urine Yellow; Glucose Urine UA Negative (Negative); Ketones Urine Negative (Negative); Leukocyte Esterase Urine Negative (Negative); Nitrite Urine Negative (Negative); Protein Urine Negative (Negative); Specific Gravity Urine 1.011 (1.000-1.030); Urobilinogen Urine Negative (Negative)
[2023-01-17] MEDS ORDERED: APIXABAN 2.5 MG TAB PO STA (20:59)
[2023-01-17] MEDS ORDERED: METOPROLOL TARTRATE 25 MG TAB PO STA (20:59)
[2023-01-17] MEDS ORDERED: clonazePAM 0.5 MG TAB PO STA (21:00)
[2023-01-17] MEDS ORDERED: traZODone HCL 50 MG TAB PO STA (21:02)
[2023-01-17] MEDS ORDERED: METHADONE ORAL SOLN 2 MG/ML PO STA (21:26)
[2023-01-17] MEDS ORDERED: IPRATROPIUM BROMIDE/ALBUTEROL respimat INH INH SCH (22:10)
--- NOTE | 2023-01-17 22:12 | Communication Note ---
Date of Service: January 17, 2023 Patient seen by behavioral health liaison. Overall appears to be more with depression and adjustment, and thoughts of wanting her illness to be over and fr ustration but does not have current active SI, has not had plan or herself behavior, and overall while appears acutely depressed lowmoderate risk for SI. Patient reports feels she would reach out if thoughts of suicide worsen or become active will switch to q15-30 minute checks with direct line of sight
--- NOTE | 2023-01-17 22:14 | Emergency Department Note ---
Impression & Plan History of stroke, Hypoxia, Left-sided weakness ED Provider Note CHIEF COMPLAINT: Shortness of breath HISTORY OF PRESENT ILLNESS: This 37-year-old female patient past medical history of depression, morbid obesity, congestive heart failure, hepatitis C, splenic abscess, thalassemia, right MCA stroke with residual left-sided weakness, opioid use disorder mitral valve replacement, hypothyroidism presents to the emergency department by ambulance for complaints of a sore throat and shortness of breath. The patient states her mother called the ambulance today she is not sure why. In discussions with the patient's mother and aunt at the bedside, the patient has been much less mobile lately. She is refusing to ambulate at home and they take a two-person lift to get her onto the bedside commode. Last night the patient mention to her mother that she should just "let her go." She has not been able to make her outpatient appointments for both the splenic abscess, PCP and the methadone clinic. REVIEW OF SYSTEMS: A review of systems was performed with positives and pertinent negatives listed in the history of present illness. 10 systems were reviewed and are otherwise negative. ALLERGIES: see below MEDICATIONS: see below PMH: see below SOCIAL HISTORY: see below DDx:Reactive airway disease, pneumonia, obesity related CO2 retention, CHF, cardiac ischemia, pulmonary embolism, musculoskeletal, gastrointestinal, as well as other pathologies. PHYSICAL EXAM: Vital signs reviewed. General: Chronically ill appearing 37-year-old female, in no significant distress. HEENT: No scleral icterus, PERRLA, neck supple. Posterior oropharynx is clear, no erythema Cardiovascular: Regular rate and rhythm, no extra sounds. Pulmonary: Clear to auscultation bilaterally, normal work of breathing. On room air. Abdomen: Soft, obese, nontender, nondistended, positive bowel sounds. Musculoskeletal: Atraumatic, 1-2+ peripheral edema. Neurologic: Patient awake alert and oriented x 3, speech is clear. Left upper and lower extremity hemiplegia Skin: Warm, dry, no rash EMERGENCY DEPARTMENT COURSE/MDM: This patient was evaluated and appeared to be in no significant distress. External medical records were reviewed. IV access was obtained and laboratory work was drawn. 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 Chest x-ray was performed and reveals posterior anatomy changes, cardiomegaly and mild congestion. Patient was on nasal cannula oxygen. Laboratory work is fairly reassuring. UA is negative for infection. I did reevaluate the patient and order an ambulatory trial. Per nursing staff, the patient does not have significant motivation and does require assistance. I did discuss the disposition with the patient's aunt who is at the bedside. Her mother then arrived in the emergency department and stated she did not feel she could take the patient home. She is concerned about the patient's lack of motivation for living. She does have 3 daughters that live with them. Given the mother's concerns about taking her home and her ability to care for her, patient was discussed with the hospitalist service who will evaluate her for further management. MONITORING: An order for cardiac monitoring was placed and the patient is noted to be in a NSR 96 beats per minute. RADIOLOGY: Chest x-ray to my interpretation reveals poststernotomy changes, cardiomegaly with congestive change. Otherwise defer to radiology EKG: To my interpretation reveals normal sinus rhythm at 97 bpm. Low voltage QRS, prolonged QTC at 505. No PVC, no PAC. Normal ST segments. No significant change was found from previous dated December 16, 2022 DISPOSITION: Admission Past Med/Surg History Medical History (Updated 01/21/23 @ 20:52 by Ines Fan MD) Anemia Anxiety Bipolar disorder Chronic right arterial ischemic stroke, MCA (middle cerebral artery) Drug abuse and dependence Endocarditis History of embolic stroke Rt MCA Hypoxia PCOS (polycystic ovarian syndrome) Splenic abscess Thalassemia Surgical History (Updated 12/16/22 @ 20:08 by Leigha Poe DO) H/O mitral valve replacement History of section History of repair of ACL History of tubal ligation Family History Grandmother (Paternal) Breast cancer Grandfather (Maternal) Myocardial infarction Graves disease Grandfather (Paternal) Myocardial infarction Other Thalassemia Denies family history of Colon cancer Ovarian cancer Prostate cancer Social History Smoking Status: Current every day smoker Tobacco Type: Cigarettes packs per day: 1; Second Hand Exposure: Yes; Do You Dip or Chew Tobacco: No; Hx Alcohol Use: No Hx Substance Use: No Preferred Language: Estonian Communication Ability: Effective Visual Impairment: No Limitations Hearing Ability: Normal Crop Duster Helper Required: No Beliefs That Will Affect Care: Spiritual marital status: Single Current Living Situation: Parent Current Living Situation Comment: boyfriend and her 3 daughters 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 Feels Safe at Home: Yes Childhood Exposure to Second-Hand Smoke: No Diet: regular Diet Comment: regular Dental Care, Regularly: No Physical Activity Frequency: Does not Exercise Seatbelt Use: sometimes Sunscreen Use: No Assistive Devices: None Allergies Allergies Allergy/AdvReac Type Severity Reaction Status Date / Time sulfamethoxazole Allergy Severe Anaphylaxis Verified 12/16/22 17:56 [From Bactrim] trimethoprim [From Bactrim] Allergy Severe Anaphylaxis Verified 12/16/22 17:56 atorvastatin AdvReac Intermediate Muscle Pain Verified 12/16/22 17:56 Home Meds Home Medications Medication Instructions Recorded Confirmed aspirin 81 mg chewable tablet 81 mg PO DAILY 12/16/22 01/17/23 gabapentin 600 mg tablet 600 mg PO TID 12/16/22 01/17/23 ipratropium 20 mcg-albuterol 100 1 puff inhalation TID 12/16/22 01/17/23 mcg/actuation mist for inhalation (Combivent Respimat) melatonin 3 mg tablet 3 mg PO HS 12/16/22 01/17/23 methadone 10 mg tablet 72 mg PO DAILY 12/16/22 01/17/23 multivitamin with minerals 1 tab PO DAILY 12/16/22 01/17/23 Previous Rx's Medication Instructions Recorded Wheelchair (Manual) #1 ea 03/25/22 Hospital Bed Home[facility] (Hospital #1 ea 04/18/22 Bed) Wheelchair (Manual) (Manual #1 ea 04/18/22 Wheelchair) Lift Chair #1 ea 10/09/22 miscellaneous medical supply #1 ea 10/16/22 ketoconazole 2 % topical cream 1 applic topical BID 4 weeks #15 11/19/22 grams fluticasone propionate 100 1 inh inhalation BID #60 ea 12/16/22 mcg/actuation blister powder for inhalation (Flovent Diskus) metoprolol tartrate 50 mg tablet 25 mg PO BID #30 tabs 12/16/22 trazodone 50 mg tablet 50 mg PO HS #30 tabs 12/16/22 sertraline 100 mg tablet 200 mg PO DAILY #60 tabs 12/17/22 epinephrine 0.3 mg/0.3 mL 0.3 mg (0.3 mL) IM .COMPLEX PRN 12/26/22 injection, auto-injector anaphylaxis #2 ea apixaban 2.5 mg tablet 2.5 mg PO BID #60 tabs 01/08/23 aripiprazole 15 mg tablet (Abilify) 15 mg PO DAILY #30 tabs 01/08/23 baclofen 10 mg tablet 10 mg PO BID #60 tabs 01/08/23 clonazepam 0.5 mg tablet 0.5 mg PO HS #30 tabs 01/08/23 cyanocobalamin (vitamin B-12) 1,000 mcg PO DAILY #90 tabs 01/08/23 1,000 mcg tablet furosemide 80 mg tablet 80 mg PO BID #60 tabs 01/08/23 levothyroxine 50 mcg tablet 50 mcg PO DAILYBB #30 tabs 01/08/23 (Synthroid) magnesium oxide 400 mg (241.3 mg 400 mg PO DAILY #30 tabs 01/08/23 magnesium) tablet nicotine 7 mg/24 hr daily 7 mg transdermal QAM #30 ea 01/08/23 transdermal patch potassium chloride 20 mEq 20 meq PO BID #60 tabs 01/08/23 tablet,extended release Results & Data (ED) Vital Signs Vital Signs - 24 hr 01/17/23 15:02 01/17/23 14:55 01/17/23 14:55 Temperature 37.1 C Temperature Source Oral Pulse Rate 98 H Pulse Rate [Finger] Respiratory Rate 22 Respiratory Effort / Characteristics Non-Labored Non-Labored Spontaneous Respiratory Depth Normal Normal Respiratory Pattern Regular Regular Blood Pressure 117/77 Blood Pressure [Right Arm] Blood Pressure Mean 90 Blood Pressure Mean [Right Arm] Blood Pressure Position Lying Pulse Oximetry 93 Oxygen Delivery Method Room Air Room Air Room Air Sepsis Recent Fever Within 48 Hours No Sepsis New/Unexplained Change in Mental Status N/A Sepsis Action Taken by Nursing No Action Required 01/17/23 14:55 01/17/23 16:32 01/17/23 18:32 Temperature Temperature Source Pulse Rate Pulse Rate [Finger] 86 Respiratory Rate 23 22 Respiratory Effort / Characteristics Non-Labored Non-Labored Spontaneous Respiratory Depth Normal Normal Respiratory Pattern Regular Regular Blood Pressure Blood Pressure [Right Arm] 130/77 130/71 Blood Pressure Mean Blood Pressure Mean [Right Arm] 94 90 Blood Pressure Position Pulse Oximetry 93 92 96 Oxygen Delivery Method Room Air Room Air Sepsis Recent Fever Within 48 Hours Sepsis New/Unexplained Change in Mental Status Sepsis Action Taken by Retirement Medications Current Medication List: was personally reviewed by me Laboratory Data Attestation: I reviewed the patient's lab results. 01/17/23 15:33 01/17/23 15:33 Lab Results 01/17/23 01/17/23 01/17/23 Range/Units 15:22 15:33 15:33 WBC 7.63 (4.8-10.8) K/ul RBC 4.19 L (4.20-5.40) M/uL Hgb 9.4 L (12.0-16.0) g/dl Hct 31.9 L (37.0-47.0) % MCV 76.1 L (80.0-100.0) fL MCH 22.4 L (25.0-34.0) pg MCHC 29.5 L (32.0-36.0) g/dL RDW Std Deviation 39.4 (36.4-46.3) fL RDW Coeff of Alexia 14.5 (11.5-14.5) % Plt Count 394 (130-400) K/uL MPV 9.4 (9.4-12.4) fL Immature Gran % (Auto) 0.3 % Neut % (Auto) 71.5 % Lymph % (Auto) 18.5 % [place] % (Auto) 5.9 % Eos % (Auto) 3.3 % Baso % (Auto) 0.5 % Neut # (Auto) 5.46 (1.40-6.50) K/uL Lymph # (Auto) 1.41 (1.2-3.4) K/uL [place] # (Auto) 0.45 (0.11-0.59) K/uL Eos # (Auto) 0.25 (0-0.50) K/uL Baso # (Auto) 0.04 (0-0.2) K/uL Immature Gran # (Auto) 0.02 (0.01-0.20) K/uL Sodium 140 (136-145) mmol/L Potassium 4.1 (3.5-5.1) mmol/L Chloride 100 (98-107) mmol/L Carbon Dioxide 32 (21-32) mmol/L Anion Gap 8 (3-11) BUN 13 (6-23) mg/dl Creatinine 0.93 (0.6-1.2) mg/dl Est Cr Clr Drug Dosing 143.9 ml/min Est GFR ( Amer) 91.6 ml/min Est GFR (Non-Af Amer) 79.1 ml/min BUN/Creatinine Ratio 14.0 (10-20) Glucose 87 (70-99(Fasting)) mg/dl Calcium 9.0 (8.6-10.3) mg/dl Magnesium 2.2 (1.7-2.4) mg/dl Total Bilirubin 0.2 (0.2-1.0) mg/dl AST 13 (13-39) U/L ALT 8 (7-52) U/L Alkaline Phosphatase 104 (34-104) U/L Troponin I High Sens < 2.3 (0-14) pg/ml Total Protein 8.3 (6.0-8.3) gm/dl Albumin 3.8 (3.4-5.0) gm/dl Globulin 4.5 H (2.5-4.0) gm/dl Albumin/Globulin Ratio 0.8 L (0.9-2) Urine Color Urine Appearance (Clear) Urine pH (4.5-7.5) Ur Specific [place] (1.000-1.030) Urine Protein (Negative) Urine Glucose (UA) (Negative) Urine Ketones (Negative) Urine Blood (Negative) Urine Nitrite (Negative) Urine Bilirubin (Negative) Urine Urobilinogen (Negative) Ur Leukocyte Esterase (Negative) SARS-CoV-2, RNA, NAAT NEGATIVE (NEGATIVE) 01/17/23 Range/Units 19:35 WBC (4.8-10.8) K/ul RBC (4.20-5.40) M/uL Hgb (12.0-16.0) g/dl Hct (37.0-47.0) % MCV (80.0-100.0) fL MCH (25.0-34.0) pg MCHC (32.0-36.0) g/dL RDW Std Deviation (36.4-46.3) fL RDW Coeff of Alexia (11.5-14.5) % Plt Count (130-400) K/uL MPV (9.4-12.4) fL Immature Gran % (Auto) % Neut % (Auto) % Lymph % (Auto) % [place] % (Auto) % Eos % (Auto) % Baso % (Auto) % Neut # (Auto) (1.40-6.50) K/uL Lymph # (Auto) (1.2-3.4) K/uL [place] # (Auto) (0.11-0.59) K/uL Eos # (Auto) (0-0.50) K/uL Baso # (Auto) (0-0.2) K/uL Immature Gran # (Auto) (0.01-0.20) K/uL Sodium (136-145) mmol/L Potassium (3.5-5.1) mmol/L Chloride (98-107) mmol/L Carbon Dioxide (21-32) mmol/L Anion Gap (3-11) BUN (6-23) mg/dl Creatinine (0.6-1.2) mg/dl Est Cr Clr Drug Dosing ml/min Est GFR ( Amer) ml/min Est GFR (Non-Af Amer) ml/min BUN/Creatinine Ratio (10-20) Glucose (70-99(Fasting)) mg/dl Calcium (8.6-10.3) mg/dl Magnesium (1.7-2.4) mg/dl Total Bilirubin (0.2-1.0) mg/dl AST (13-39) U/L ALT (7-52) U/L Alkaline Phosphatase (34-104) U/L Troponin I High Sens (0-14) pg/ml Total Protein (6.0-8.3) gm/dl Albumin (3.4-5.0) gm/dl Globulin (2.5-4.0) gm/dl Albumin/Globulin Ratio (0.9-2) Urine Color Yellow Urine Appearance Clear (Clear) Urine pH 8.0 H (4.5-7.5) Ur Specific [place] 1.011 (1.000-1.030) Urine Protein Negative (Negative) Urine Glucose (UA) Negative (Negative) Urine Ketones Negative (Negative) Urine Blood Negative (Negative) Urine Nitrite Negative (Negative) Urine Bilirubin Negative (Negative) Urine Urobilinogen Negative (Negative) Ur Leukocyte Esterase Negative (Negative) SARS-CoV-2, RNA, NAAT (NEGATIVE) Administered Medications Acetaminophen (Acetaminophen 325 Mg Tab) 650 mg PO Q4H PRN PRN Reason: Pain or Fever Stop: 02/16/23 22:09 Last Admin: 01/19/23 12:35 Dose: 650 mg Documented By: Admin: 01/18/23 16:15 Dose: 650 mg Documented By: JESSIE Albuterol (Albuterol Hfa 8 Gm Inhaler (Combivent Respimat P&T Subs)) 1 puffs INH TIDR SHIRLEY; Protocol Stop: 02/17/23 06:59 Last Admin: 01/21/23 12:57 Dose: 1 puffs Documented By: EAAbiola Admin: 01/21/23 07:36 Dose: 1 puffs Documented By: Admin: 01/20/23 19:32 Dose: 1 puffs Documented By: Admin: 01/20/23 14:10 Dose: 1 puffs Documented By: Admin: 01/20/23 07:03 Dose: 1 puffs Documented By: Admin: 01/19/23 19:30 Dose: 1 puffs Documented By: Admin: 01/19/23 13:08 Dose: 1 puffs Documented By: Admin: 01/19/23 07:38 Dose: 1 puffs Documented By: Admin: 01/18/23 18:10 Dose: 1 puffs Documented By: Admin: 01/18/23 13:21 Dose: 1 puffs Documented By: ОЛЬГА Admin: 01/18/23 06:40 Dose: 1 puffs Documented By: ОЛЬГА Albuterol (Albut/Ipratrop 3mg/0.5mg Neb 3 Ml Vial) 3 ml NEB QIDR SHIRLEY; Protocol Stop: 02/20/23 18:59 Last Admin: 01/21/23 19:44 Dose: 3 ml Documented By: GABO Apixaban (Apixaban 2.5 Mg Tab) 2.5 mg PO BID SH[facility] Stop: 02/17/23 08:59 Last Admin: 01/21/23 20:24 Dose: 2.5 mg Documented By: Admin: 01/21/23 08:37 Dose: 2.5 mg Documented By: Admin: 01/20/23 21:14 Dose: 2.5 mg Documented By: Admin: 01/20/23 09:58 Dose: 2.5 mg Documented By: Admin: 01/19/23 21:53 Dose: 2.5 mg Documented By: Admin: 01/19/23 07:29 Dose: 2.5 mg Documented By: Admin: 01/18/23 21:00 Dose: 2.5 mg Documented By: Admin: 01/18/23 08:19 Dose: 2.5 mg Documented By: AWA Aripiprazole (Aripiprazole 15 Mg Tab) 15 mg PO DAILY SH[facility]LEY Stop: 02/17/23 08:59 Last Admin: 01/21/23 08:36 Dose: 15 mg Documented By: Admin: 01/20/23 09:57 Dose: 15 mg Documented By: Admin: 01/19/23 07:31 Dose: 15 mg Documented By: Admin: 01/18/23 08:19 Dose: 15 mg Documented By: AWA Aspirin (Aspirin 81 Mg Ectab) 81 mg PO DAILY [facility] Stop: 02/17/23 08:59 Last Admin: 01/21/23 08:37 Dose: 81 mg Documented By: Admin: 01/20/23 09:55 Dose: 81 mg Documented By: Admin: 01/19/23 07:27 Dose: 81 mg Documented By: Admin: 01/18/23 08:18 Dose: 81 mg Documented By: AWA Baclofen (Baclofen 10 Mg Tab) 10 mg PO BID SH[facility]LEY Stop: 02/16/23 22:09 Last Admin: 01/21/23 20:28 Dose: 10 mg Documented By: TarikG Admin: 01/21/23 08:37 Dose: 10 mg Documented By: Admin: 01/20/23 21:11 Dose: 10 mg Documented By: Admin: 01/20/23 09:56 Dose: 10 mg Documented By: Admin: 01/19/23 21:52 Dose: 10 mg Documented By: Admin: 01/19/23 07:29 Dose: 10 mg Documented By: Admin: 01/18/23 20:59 Dose: 10 mg Documented By: Admin: 01/18/23 08:20 Dose: 10 mg Documented By: Admin: 01/18/23 00:16 Dose: 10 mg Documented By: ALB Clonazepam (Clonazepam 0.5 Mg Tab) 0.5 mg PO HS SH[facility]LEY Stop: 02/17/23 20:59 Last Admin: 01/21/23 20:22 Dose: 0.5 mg Documented By: Admin: 01/20/23 21:12 Dose: 0.5 mg Documented By: Admin: 01/19/23 21:50 Dose: 0.5 mg Documented By: Admin: 01/18/23 20:59 Dose: 0.5 mg Documented By: YAMIL Clonazepam (Clonazepam 0.5 Mg Tab) 0.5 mg PO Q8 PRN PRN Reason: Anxiety or restless Stop: 02/18/23 14:52 Last Admin: 01/19/23 15:05 Dose: 0.5 mg Documented By: JESSIE Cyanocobalamin (Cyanocobalamin (B-12) 500 Mcg Tablet) 1,000 mcg PO DAILY SH[facility]LEY Stop: 02/17/23 08:59 Last Admin: 01/21/23 08:37 Dose: 1,000 mcg Documented By: Admin: 01/20/23 09:57 Dose: 1,000 mcg Documented By: Admin: 01/19/23 07:31 Dose: 1,000 mcg Documented By: Admin: 01/18/23 08:20 Dose: 1,000 mcg Documented By: AWA Furosemide (Furosemide Inj 20 Mg/2 Ml Vial) 60 mg IV BID17 [facility] Stop: 02/17/23 08:59 Last Admin: 01/21/23 16:59 Dose: 60 mg Documented By: Admin: 01/21/23 08:37 Dose: 60 mg Documented By: Admin: 01/20/23 17:59 Dose: 60 mg Documented By: Admin: 01/20/23 09:55 Dose: 60 mg Documented By: Admin: 01/19/23 17:38 Dose: 60 mg Documented By: Admin: 01/19/23 07:30 Dose: 60 mg Documented By: Admin: 01/18/23 16:43 Dose: 60 mg Documented By: Admin: 01/18/23 09:00 Dose: 60 mg Documented By: AWA Gabapentin (Gabapentin 600 Mg Tab) 600 mg PO TID SH[facility] Stop: 02/16/23 22:09 Last Admin: 01/21/23 20:23 Dose: 600 mg Documented By: Admin: 01/21/23 14:07 Dose: 600 mg Documented By: Admin: 01/21/23 08:37 Dose: 600 mg Documented By: Admin: 01/20/23 21:14 Dose: 600 mg Documented By: Admin: 01/20/23 14:11 Dose: 600 mg Documented By: Admin: 01/20/23 09:57 Dose: 600 mg Documented By: Admin: 01/19/23 21:52 Dose: 600 mg Documented By: Admin: 01/19/23 14:45 Dose: 600 mg Documented By: Admin: 01/19/23 07:29 Dose: 600 mg Documented By: Admin: 01/18/23 21:00 Dose: 600 mg Documented By: Admin: 01/18/23 13:29 Dose: 600 mg Documented By: JOSE J Admin: 01/18/23 08:20 Dose: 600 mg Documented By: Admin: 01/18/23 00:16 Dose: 600 mg Documented By: ALB Guaifenesin (Guaifenesin 600 Mg Tabcr) 1,200 mg PO Q12 [facility] Stop: 02/20/23 20:59 Last Admin: 01/21/23 20:24 Dose: 1,200 mg Documented By: QG Methylprednisolone 40 mg/ (Syringe) 0.64 mls @ 1.5 mls/min IV Q12H [facility] Stop: 02/20/23 17:59 Last Admin: 01/21/23 18:46 Dose: 1.5 mls/min Documented By: NNEKA Ipratropium Jeannette (Ipratropium Hfa Inhaler (Combivent Respimat P&T Subs)) 1 puffs INH TIDR SHIRLEY; Protocol Stop: 02/17/23 06:59 Last Admin: 01/21/23 12:57 Dose: 1 puffs Documented By: Admin: 01/21/23 07:36 Dose: 1 puffs Documented By: Admin: 01/20/23 19:32 Dose: 1 puffs Documented By: Admin: 01/20/23 14:08 Dose: 1 puffs Documented By: Admin: 01/20/23 07:02 Dose: 1 puffs Documented By: Admin: 01/19/23 19:30 Dose: 1 puffs Documented By: Admin: 01/19/23 13:08 Dose: 1 puffs Documented By: Admin: 01/19/23 07:38 Dose: 1 puffs Documented By: Admin: 01/18/23 18:10 Dose: 1 puffs Documented By: Admin: 01/18/23 13:21 Dose: 1 puffs Documented By: ОЛЬГА Admin: 01/18/23 06:40 Dose: 1 puffs Documented By: ОЛЬГА Magnesium Oxide (Magnesium Oxide 400 Mg Tab) 400 mg PO DAILY [facility] Stop: 02/17/23 08:59 Last Admin: 01/21/23 08:37 Dose: 400 mg Documented By: Admin: 01/20/23 09:57 Dose: 400 mg Documented By: Admin: 01/19/23 07:30 Dose: 400 mg Documented By: Admin: 01/18/23 08:21 Dose: 400 mg Documented By: AWA Melatonin (Melatonin 3 Mg Tab) 3 mg PO HS [facility] Stop: 02/16/23 22:09 Last Admin: 01/21/23 20:22 Dose: 3 mg Documented By: Admin: 01/20/23 21:11 Dose: 3 mg Documented By: Admin: 01/19/23 21:50 Dose: 3 mg Documented By: Admin: 01/18/23 20:59 Dose: 3 mg Documented By: Admin: 01/18/23 00:16 Dose: 3 mg Documented By: ALB Methadone HCl (Methadone Oral Soln 2 Mg/Ml) 72 mg PO HS SH[facility]LEY Stop: 02/01/23 20:59 Last Admin: 01/21/23 20:22 Dose: 72 mg Documented By: Admin: 01/20/23 21:11 Dose: 72 mg Documented By: Admin: 01/19/23 21:51 Dose: 72 mg Documented By: Admin: 01/18/23 20:59 Dose: 72 mg Documented By: YAMIL Metoprolol Tartrate (Metoprolol Tartrate 25 Mg Tab) 25 mg PO BID SH[facility]LEY Stop: 02/17/23 08:59 Last Admin: 01/21/23 20:23 Dose: 25 mg Documented By: Admin: 01/21/23 08:37 Dose: 25 mg Documented By: Admin: 01/20/23 21:18 Dose: Not Given Documented By: Admin: 01/20/23 10:03 Dose: 25 mg Documented By: Admin: 01/19/23 21:52 Dose: Not Given Documented By: Admin: 01/19/23 07:32 Dose: 25 mg Documented By: Admin: 01/18/23 21:46 Dose: Not Given Documented By: Admin: 01/18/23 08:17 Dose: 25 mg Documented By: AWA Miscellaneous (Remove Nicoderm Patch) 1 each N/A DAILY@0859 [facility] Stop: 02/17/23 08:58 Last Admin: 01/21/23 08:37 Dose: 1 each Documented By: Admin: 01/20/23 09:55 Dose: 1 each Documented By: Admin: 01/19/23 07:27 Dose: 1 each Documented By: Admin: 01/18/23 13:29 Dose: Not Given Documented By: CAW Non-Formulary Medication (Patient's Own Controlled Med 1) 1 each PO HS SHIRLEY Stop: 02/01/23 20:59 Last Admin: 01/21/23 20:24 Dose: 1 btl Documented By: Admin: 01/20/23 21:15 Dose: 1 btl Documented By: Admin: 01/19/23 21:53 Dose: Not Given Documented By: Admin: 01/18/23 21:01 Dose: 1 btl Documented By: YAMIL Potassium Chloride (Potassium Chloride Crtab 20 Meq Tabcr) 20 meq PO TID SH[facility]LEY Stop: 02/20/23 13:59 Last Admin: 01/21/23 20:22 Dose: 20 meq Documented By: Admin: 01/21/23 14:07 Dose: 20 meq Documented By: NNEKA Sertraline HCl (Sertraline Hcl 100 Mg Tablet) 200 mg PO DAILY [facility] Stop: 02/17/23 08:59 Last Admin: 01/21/23 08:37 Dose: 200 mg Documented By: Admin: 01/20/23 09:56 Dose: 200 mg Documented By: Admin: 01/19/23 07:28 Dose: 200 mg Documented By: Admin: 01/18/23 08:22 Dose: 200 mg Documented By: AWA Trazodone HCl (Trazodone Hcl 50 Mg Tab) 50 mg PO HS SH[facility]LEY Stop: 02/17/23 20:59 Last Admin: 01/21/23 20:28 Dose: 50 mg Documented By: Admin: 01/20/23 21:18 Dose: 50 mg Documented By: Admin: 01/19/23 21:50 Dose: 50 mg Documented By: Admin: 01/18/23 20:59 Dose: 50 mg Documented By: JHONB Discontinued Medications Apixaban (Apixaban 2.5 Mg Tab) 2.5 mg PO ONE STA Stop: 01/17/23 21:00 Last Admin: 01/17/23 21:58 Dose: 2.5 mg Documented By: ALB Bisacodyl (Bisacodyl 10 Mg Supp) 10 mg SD NOW STA Stop: 01/20/23 14:38 Last Admin: 01/20/23 15:10 Dose: Not Given Documented By: KJL Clonazepam (Clonazepam 0.5 Mg Tab) 0.5 mg PO ONE STA Stop: 01/17/23 21:01 Last Admin: 01/17/23 21:57 Dose: 0.5 mg Documented By: ALB Furosemide (Furosemide 40 Mg/4 Ml Vial) 60 mg IV ONE ONE Stop: 01/17/23 17:22 Last Admin: 01/17/23 18:47 Dose: 60 mg Documented By: NMS Levothyroxine Sodium (Levothyroxine Sodium 50 Mcg Tablet) 50 mcg PO DAILYBB [facility] Stop: 02/17/23 06:29 Last Admin: 01/21/23 05:35 Dose: 50 mcg Documented By: Admin: 01/20/23 06:18 Dose: 50 mcg Documented By: Admin: 01/19/23 06:30 Dose: 50 mcg Documented By: Admin: 01/18/23 06:37 Dose: 50 mcg Documented By: ALB Methadone HCl (Methadone Oral Soln 2 Mg/Ml) 72 mg PO ONE STA Stop: 01/17/23 21:27 Last Admin: 01/17/23 22:04 Dose: 72 mg Documented By: ALB Metoprolol Tartrate (Metoprolol Tartrate 25 Mg Tab) 25 mg PO ONE STA Stop: 01/17/23 21:00 Last Admin: 01/17/23 21:57 Dose: 25 mg Documented By: ALB Potassium Chloride (Potassium Chloride Crtab 20 Meq Tabcr) 20 meq PO BID SH[facility]LEY Stop: 02/16/23 22:09 Last Admin: 01/21/23 08:37 Dose: 20 meq Documented By: Admin: 01/20/23 21:18 Dose: 20 meq Documented By: Admin: 01/20/23 09:56 Dose: 20 meq Documented By: Admin: 01/19/23 21:50 Dose: 20 meq Documented By: Admin: 01/19/23 07:28 Dose: 20 meq Documented By: Admin: 01/18/23 21:01 Dose: 20 meq Documented By: Admin: 01/18/23 08:22 Dose: 20 meq Documented By: Admin: 01/18/23 00:16 Dose: 20 meq Documented By: ALB Trazodone HCl (Trazodone Hcl 50 Mg Tab) 50 mg PO ONE STA Stop: 01/17/23 21:03 Last Admin: 01/17/23 21:58 Dose: 50 mg Documented By: ALB Imaging Data Radiologist's Impression: Chest X-Ray 01/17/23 00:00 XR chest 1V portable HISTORY: Dyspnea COMPARISON: Chest 12/20/2022. FINDINGS: No pneumothorax. No pleural effusions. There are poststernotomy changes. The heart remains mildly enlarged. There is mild central pulmonary vascular congestion without overt edema. No new focal lung consolidations to suggest pneumonia. IMPRESSION: Cardiomegaly with mild congestive change. This has slightly improved. ACT 112: Negative or not required by law. Electronically signed by: Mauricio Matos M.D. 01/17/2023 4:59 PM Discharge Plan Visit Data Chief Complaint: Shortness of Breath/Dyspnea ED Provider: Ines Fan Discharge Problem: History of stroke, Hypoxia, Left-sided weakness Patient Disposition: Admitted As Inpatient Discharge Instructions Interventions: ED Discharge Assessment Last Done: 01/18/23 15:12
[2023-01-18] MEDS: GABAPENTIN 600 MG TAB PO SCH ×4 (00:16→21:00)
[2023-01-18] MEDS: BACLOFEN 10 MG TAB PO SCH ×3 (00:16→20:59)
[2023-01-18] MEDS: MELATONIN 3 MG TAB PO SCH ×2 (00:16→20:59)
[2023-01-18] MEDS: POTASSIUM CHLORIDE CRTAB 20 MEQ TABCR PO SCH ×3 (00:16→21:01)
[2023-01-18 05:39] LABS: Basophils # (auto) 0.04 K/uL (0-0.2); Basophils % (auto) 0.5 %; Eosinophils # (auto) 0.44 K/uL (0-0.50); Hematocrit (blood only) 31.2 % (37.0-47.0); Hemoglobin 9.2 g/dl (12.0-16.0); Immature Granulocytes # (auto) 0.02 K/uL (0.01-0.20); Immature Granulocytes % (auto) 0.2 %; Lymphocytes # (auto) 1.52 K/uL (1.2-3.4); Lymphocytes % (auto) 17.1 %; Mean Corpuscular Hemoglobin 22.3 pg (25.0-34.0); Mean Corpuscular Hgb Conc 29.5 g/dL (32.0-36.0); Mean Corpuscular Volume 75.7 fL (80.0-100.0); Monocytes # (auto) 0.59 K/uL (0.11-0.59); Monocytes % (auto) 6.7 %; Neutrophils # (auto) 6.26 K/uL (1.40-6.50); Neutrophils % (auto) 70.5 %; Platelet Count 382 K/uL (130-400); RDW Coefficient of Variation 14.5 % (11.5-14.5); RDW Standard Deviation 39.7 fL (36.4-46.3); Red Blood Count 4.12 M/uL (4.20-5.40); White Blood Count 8.87 K/ul (4.8-10.8)
[2023-01-18 05:58] LABS: Albumin Globulin Ratio 0.8 (0.9-2); Albumin Level 3.6 gm/dl (3.4-5.0); BUN Creatinine Ratio 13.3 (10-20); Bilirubin,Total 0.3 mg/dl (0.2-1.0); Calcium 9.1 mg/dl (8.6-10.3); Creatinine Clr Calc Pharmacy 127.5 ml/min; Est GFR (African American) 79.1 ml/min; Est GFR (Non-African American) 68.3 ml/min; Globulin 4.5 gm/dl (2.5-4.0); Total Protein 8.1 gm/dl (6.0-8.3)
[2023-01-18] MEDS: LEVOTHYROXINE SODIUM 50 MCG TABLET PO SCH (06:37)
[2023-01-18] MEDS: Albuterol HFA 8 GM Inhaler (Combivent Respimat P&T Subs) INH SCH ×3 (06:40→18:10)
[2023-01-18] MEDS: Ipratropium HFA Inhaler (Combivent Respimat P&T Subs) INH SCH ×3 (06:40→18:10)
[2023-01-18] MEDS: METOPROLOL TARTRATE 25 MG TAB PO SCH ×2 (08:17→21:46)
[2023-01-18] MEDS: ASPIRIN 81 MG ECTAB PO SCH (08:18)
[2023-01-18] MEDS: ARIPiprazole 15 MG TAB PO SCH (08:19)
[2023-01-18] MEDS: APIXABAN 2.5 MG TAB PO SCH ×2 (08:19→21:00)
[2023-01-18] MEDS: CYANOCOBALAMIN (B-12) 500 MCG TABLET PO SCH (08:20)
[2023-01-18] MEDS: MAGNESIUM OXIDE 400 MG TAB PO SCH (08:21)
[2023-01-18] MEDS: SERTRALINE HCL 100 MG TABLET PO SCH (08:22)
[2023-01-18] MEDS ORDERED: METHADONE HCL 10 MG TAB PO SCH (09:00)
[2023-01-18] MEDS: FUROSEMIDE INJ 20 MG/2 ML VIAL IV SCH ×2 (09:00→16:43)
[2023-01-18] MEDS: ACETAMINOPHEN 325 MG TAB PO PRN (16:15)
[2023-01-18] MEDS: traZODone HCL 50 MG TAB PO SCH (20:59)
[2023-01-18] MEDS: METHADONE ORAL SOLN 2 MG/ML PO SCH (20:59)
[2023-01-18] MEDS: clonazePAM 0.5 MG TAB PO SCH (20:59)
[2023-01-18] MEDS: PATIENT'S OWN CONTROLLED MED 1 PO SCH (21:01)
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
--- NOTE | 2023-01-19 05:52 | Hospitalist Progress Note ---
Date of Service January 18, 2023 DOS 01/18/2023 late entry technical Assessment & Plan (1) Depression: Plan: Edema, ?AoC CHFpEF - 15lbs weight gain over 4 days, no dietary salt loads per pt. Chest x-ray: Cardiomegaly with mild congestive change slightly improved from p rior. Central pulmonary vascular congestion without overt edema is noted, no consolidations EKG: Normal sinus rhythm, QT is prolonged at 505 Due to extreme weight gain with alternative explanation and no prior diastolic dysfunction noted we will repeat limited echo for wall motion assess Clinically volume overloaded on admit No leukocytosis Hemoglobin 9.4, baseline 910.8 MCV 76 Sodium, potassium normal Creatinine 0.93 on admission Magnesium 2.2 High sensitive troponin is undetectable Depression. Multifactorial with underlying depression/anxiety and adjustment disorder with burden of chronic illness Patient reports that she wanted to "just be done with everything "and be DNR/DNI so she could go home. She feels like she might drown in her lung fluid, and feels hopeless and like she will never make it out of the hospital for any length of time. Denies active SI/plan/HI Would not make DNR/DNI in the setting of absence of future oriented thoughts, depression episode, concern for methadone withdrawal. 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 Patient has not taken this in 5 days, likely some element of tachycardia and sweating from withdrawal. Resumed on admission MENDEZ Continue home medications Anemia, history of thalassemia Hypothyroidism With recent undertreatment suspected to contribute to her edema Continue Synthroid History of splenic abscess Diagnosed 11/19/2022. Was transferred to [place] 11/22/2022 and was discharged on 7 days of oral antibiotics, surgical intervention was not performed/recommended. 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 Paco while inpatient History of snoring, suspected occult CARINA CPAP nightly as needed DVT prophylaxis: Continue Eliquis Diet: Heart healthy, low-salt Disposition: Medical/surgical;'s suicide precaution CODE STATUS:Patient has been full code on prior admits. Currently with suicidal ideation, full code is continued (2) Iron deficiency: (3) History of embolic stroke: (4) Acute diastolic CHF (congestive heart failure): (5) Morbid obesity: (6) S/P mitral valve replacement with bioprosthetic valve: (7) Left spastic hemiparesis: Admission and Anticipated Discharge Date Admission Date: January 17, 2023 Subjective Patient seen on hospitalist rounds following her admission to the medical service last night. She had a discussion with the ER at attending and staff regarding wanting to be downgraded to DNR/DNI. Insomuch as she is being treated for depression, there is a concern that this may be a way of her saying that I do not want to live. Now appearing to floor she is a full code but it appears to be appropriate based on what she is telling me now. She is saying that I do not want to be paralyzed and debilitated and incapacitated if I have another stroke. So in essence she is saying that I would want to be a DNR if I have another stroke that is debilitating and incapacitating. Otherwise it is okay to treat me for other problems. This brings us back to the fact that she is a full code. Up Here on the floor she already feels better with diuresis and she has a pure wick external catheter. Physical Exam Physical Exam: Appears ill Constitutional: Mildly diaphoretic but not febrile Eyes: PERRL, conjunctivae normal, anicteric sclerae ENMT: external ear and nose normal, oropharynx normal Neck: trachea midline, no thyromegaly Respiratory: Good inspiration expiration sounds Cardiovascular: Regular Gastrointestinal (Abdomen): Positive bowel sounds Neurologic: Left somatic deficit Psychiatric: Thought processes and communication well intact Her mother Merary Ortiz is her power of tourist information assistant Results & Data Results & Data Vital Signs (Past 12 Hours) Vital Signs Temp Pulse Pulse Resp BP Pulse Ox O2 Del Method 01/19/23 04:04 36.6 C 80 20 136/82 99 Nasal Cannula 01/18/23 21:59 105 H 01/19/23 00:16 37.8 C H 102 H 20 116/72 92 Nasal Cannula 01/18/23 20:00 Nasal Cannula 01/18/23 19:55 37.4 C 103 H 20 102/57 L 92 Nasal Cannula 01/18/23 18:11 103 H 18 90 Nasal Cannula O2 Flow Rate 01/19/23 04:04 2 01/18/23 21:59 01/19/23 00:16 2 01/18/23 20:00 5 01/18/23 19:55 2 01/18/23 18:11 5 PG Care Time/CCT Total # of Minutes Spent Total Time Spent with Patient: Total time spent is greater than 50% in coordination of care (as documented) at patient's floor/unit and/or counseling patient: Coding Level of Care Code 30770 SUB INP/OBS CARE 2/35MIN Diagnoses Depression F32.A Iron deficiency E61.1 History of embolic stroke Z86.73 Acute diastolic CHF (congestive heart failure) I50.31 Morbid obesity E66.01 S/P mitral valve replacement with bioprosthetic valve Z95.3 Left spastic hemiparesis G81.14 Time Spent (min) 35
[2023-01-19 06:23] LABS: Basophils # (auto) 0.05 K/uL (0-0.2); Basophils % (auto) 0.6 %; Eosinophils # (auto) 0.41 K/uL (0-0.50); Eosinophils % (auto) 4.7 %; Hematocrit (blood only) 33.5 % (37.0-47.0); Hemoglobin 9.7 g/dl (12.0-16.0); Immature Granulocytes # (auto) 0.02 K/uL (0.01-0.20); Immature Granulocytes % (auto) 0.2 %; Lymphocytes # (auto) 1.12 K/uL (1.2-3.4); Lymphocytes % (auto) 12.7 %; Mean Corpuscular Hemoglobin 22.1 pg (25.0-34.0); Mean Corpuscular Volume 76.3 fL (80.0-100.0); Mean Platelet Volume 9.2 fL (9.4-12.4); Monocytes # (auto) 0.47 K/uL (0.11-0.59); Monocytes % (auto) 5.3 %; Neutrophils # (auto) 6.73 K/uL (1.40-6.50); Neutrophils % (auto) 76.5 %; Platelet Count 373 K/uL (130-400); RDW Coefficient of Variation 14.6 % (11.5-14.5); RDW Standard Deviation 40.2 fL (36.4-46.3); Red Blood Count 4.39 M/uL (4.20-5.40)
[2023-01-19] MEDS: LEVOTHYROXINE SODIUM 50 MCG TABLET PO SCH (06:30)
[2023-01-19] MEDS: ASPIRIN 81 MG ECTAB PO SCH (07:27)
[2023-01-19] MEDS: SERTRALINE HCL 100 MG TABLET PO SCH (07:28)
[2023-01-19] MEDS: POTASSIUM CHLORIDE CRTAB 20 MEQ TABCR PO SCH ×2 (07:28→21:50)
[2023-01-19] MEDS: GABAPENTIN 600 MG TAB PO SCH ×3 (07:29→21:52)
[2023-01-19] MEDS: APIXABAN 2.5 MG TAB PO SCH ×2 (07:29→21:53)
[2023-01-19] MEDS: BACLOFEN 10 MG TAB PO SCH ×2 (07:29→21:52)
[2023-01-19] MEDS: MAGNESIUM OXIDE 400 MG TAB PO SCH (07:30)
[2023-01-19] MEDS: FUROSEMIDE INJ 20 MG/2 ML VIAL IV SCH ×2 (07:30→17:38)
[2023-01-19] MEDS: CYANOCOBALAMIN (B-12) 500 MCG TABLET PO SCH (07:31)
[2023-01-19] MEDS: ARIPiprazole 15 MG TAB PO SCH (07:31)
[2023-01-19] MEDS: METOPROLOL TARTRATE 25 MG TAB PO SCH ×2 (07:32→21:52)
[2023-01-19] MEDS: Ipratropium HFA Inhaler (Combivent Respimat P&T Subs) INH SCH ×3 (07:38→19:30)
[2023-01-19] MEDS: Albuterol HFA 8 GM Inhaler (Combivent Respimat P&T Subs) INH SCH ×3 (07:38→19:30)
[2023-01-19] MEDS: ACETAMINOPHEN 325 MG TAB PO PRN (12:35)
[2023-01-19] MEDS: clonazePAM 0.5 MG TAB PO PRN (15:05)
[2023-01-19] MEDS: traZODone HCL 50 MG TAB PO SCH (21:50)
[2023-01-19] MEDS: clonazePAM 0.5 MG TAB PO SCH (21:50)
[2023-01-19] MEDS: MELATONIN 3 MG TAB PO SCH (21:50)
[2023-01-19] MEDS: METHADONE ORAL SOLN 2 MG/ML PO SCH (21:51)
[2023-01-19] MEDS: PATIENT'S OWN CONTROLLED MED 1 PO SCH ×2 (21:53)
--- NOTE | 2023-01-20 00:01 | Hospitalist Progress Note ---
Date of Service January 19, 2023 DOS December Assessment & Plan (1) Depression: (2) Iron deficiency: (3) History of embolic stroke: (4) Acute diastolic CHF (congestive heart failure): (5) Morbid obesity: (6) S/P mitral valve replacement with bioprosthetic valve: (7) Left spastic hemiparesis: Admission and Anticipated Discharge Date Admission Date: January 17, 2023 Subjective Today no complaints. She is witnessed to be coughing, sounds productive No sample has been obtained. Previously, patient seen on hospitalist rounds following her admission to the medical service last night. She had a discussion with the ER at attending and staff regarding wanting to be downgraded to DNR/DNI. Insomuch as she is being treated for depression, there is a concern that this may be a way of her saying that I do not want to live. Now appearing to floor she is a full code but it appears to be appropriate based on what she is telling me now. She is saying that I do not want to be paralyzed and debilitated and incapacitated if I have another stroke. So in essence she is saying that I would want to be a DNR if I have another stroke that is debilitating and incapacitating. Otherwise it is okay to treat me for other problems. This brings us back to the fact that she is a full code. Up Here on the floor she already feels better with diuresis and she has a pure wick external catheter. Physical Exam Constitutional: WD/WN, vitals as above Eyes: PERRL, conjunctivae normal, anicteric sclerae Respiratory: normal respiratory effort, lungs clear to auscultation Cardiovascular: RRR, no murmur, no edema Gastrointestinal (Abdomen): normal bowel sounds, soft, nontender, no hepatosplenomegaly Results & Data Results & Data Vital Signs (Past 12 Hours) Vital Signs Temp Pulse Pulse Resp BP Pulse Ox O2 Del Method 01/19/23 21:59 92 H 01/19/23 23:43 36.9 C 86 18 96/60 L 97 Nasal Cannula 01/19/23 19:34 85 18 95 Nasal Cannula 01/19/23 19:13 36.8 C 81 16 98/67 L 99 Nasal Cannula 01/19/23 16:17 98 H 01/19/23 16:12 37.3 C 86 18 112/77 92 Nasal Cannula 01/19/23 13:51 98 01/19/23 13:08 100 H 18 95 Nasal Cannula 01/19/23 12:25 37.8 C H 100 H 18 113/80 96 Nasal Cannula O2 Flow Rate 01/19/23 21:59 01/19/23 23:43 3 01/19/23 19:34 3 01/19/23 19:13 5 01/19/23 16:17 01/19/23 16:12 5 01/19/23 13:51 01/19/23 13:08 5 01/19/23 12:25 5 PG Care Time/CCT Total # of Minutes Spent Total Time Spent with Patient: Total time spent is greater than 50% in coordination of care (as documented) at patient's floor/unit and/or counseling patient: Coding Level of Care Code 26039 SUB INP/OBS CARE 2/35MIN Diagnoses Depression F32.A Iron deficiency E61.1 History of embolic stroke Z86.73 Acute diastolic CHF (congestive heart failure) I50.31 Morbid obesity E66.01 S/P mitral valve replacement with bioprosthetic valve Z95.3 Left spastic hemiparesis G81.14 Time Spent (min) 35
[2023-01-20] MEDS: LEVOTHYROXINE SODIUM 50 MCG TABLET PO SCH (06:18)
[2023-01-20] MEDS: Ipratropium HFA Inhaler (Combivent Respimat P&T Subs) INH SCH ×3 (07:02→19:32)
[2023-01-20] MEDS: Albuterol HFA 8 GM Inhaler (Combivent Respimat P&T Subs) INH SCH ×3 (07:03→19:32)
[2023-01-20] MEDS: ASPIRIN 81 MG ECTAB PO SCH (09:55)
[2023-01-20] MEDS: FUROSEMIDE INJ 20 MG/2 ML VIAL IV SCH ×2 (09:55→17:59)
[2023-01-20] MEDS: POTASSIUM CHLORIDE CRTAB 20 MEQ TABCR PO SCH ×2 (09:56→21:18)
[2023-01-20] MEDS: BACLOFEN 10 MG TAB PO SCH ×2 (09:56→21:11)
[2023-01-20] MEDS: SERTRALINE HCL 100 MG TABLET PO SCH (09:56)
[2023-01-20] MEDS: ARIPiprazole 15 MG TAB PO SCH (09:57)
[2023-01-20] MEDS: GABAPENTIN 600 MG TAB PO SCH ×3 (09:57→21:14)
[2023-01-20] MEDS: CYANOCOBALAMIN (B-12) 500 MCG TABLET PO SCH (09:57)
[2023-01-20] MEDS: MAGNESIUM OXIDE 400 MG TAB PO SCH (09:57)
[2023-01-20] MEDS: APIXABAN 2.5 MG TAB PO SCH ×2 (09:58→21:14)
[2023-01-20] MEDS: METOPROLOL TARTRATE 25 MG TAB PO SCH ×2 (10:03→21:18)
[2023-01-20 12:10] LABS: Hematocrit (blood only) 32.6 % (37.0-47.0); Hemoglobin 9.4 g/dl (12.0-16.0); Mean Corpuscular Hemoglobin 22.1 pg (25.0-34.0); Mean Corpuscular Hgb Conc 28.8 g/dL (32.0-36.0); Mean Corpuscular Volume 76.7 fL (80.0-100.0); Mean Platelet Volume 9.4 fL (9.4-12.4); Platelet Count 371 K/uL (130-400); RDW Coefficient of Variation 14.4 % (11.5-14.5); RDW Standard Deviation 39.9 fL (36.4-46.3); Red Blood Count 4.25 M/uL (4.20-5.40); White Blood Count 7.09 K/ul (4.8-10.8)
[2023-01-20 12:11] LABS: Basophils # (auto) 0.04 K/uL (0-0.2); Basophils % (auto) 0.6 %; Eosinophils # (auto) 0.51 K/uL (0-0.50); Eosinophils % (auto) 7.2 %; Immature Granulocytes # (auto) 0.02 K/uL (0.01-0.20); Immature Granulocytes % (auto) 0.3 %; Lymphocytes # (auto) 1.32 K/uL (1.2-3.4); Lymphocytes % (auto) 18.6 %; Monocytes # (auto) 0.45 K/uL (0.11-0.59); Monocytes % (auto) 6.3 %; Neutrophils # (auto) 4.75 K/uL (1.40-6.50); Polychromasia 1+
[2023-01-20] MEDS ORDERED: POLYETHYLENE (MIRALAX) 17 GM PACK PO PRN (14:36)
[2023-01-20] MEDS ORDERED: bisacodyL 10 MG SUPP PR STA (14:37)
[2023-01-20] MEDS ORDERED: bisacodyL 10 MG SUPP PR PRN (18:12)
[2023-01-20] MEDS: METHADONE ORAL SOLN 2 MG/ML PO SCH (21:11)
[2023-01-20] MEDS: MELATONIN 3 MG TAB PO SCH (21:11)
[2023-01-20] MEDS: clonazePAM 0.5 MG TAB PO SCH (21:12)
[2023-01-20] MEDS: PATIENT'S OWN CONTROLLED MED 1 PO SCH (21:15)
[2023-01-20] MEDS: traZODone HCL 50 MG TAB PO SCH (21:18)
[2023-01-21] MEDS: LEVOTHYROXINE SODIUM 50 MCG TABLET PO SCH (05:35)
[2023-01-21] MEDS: Ipratropium HFA Inhaler (Combivent Respimat P&T Subs) INH SCH ×2 (07:36→12:57)
[2023-01-21] MEDS: Albuterol HFA 8 GM Inhaler (Combivent Respimat P&T Subs) INH SCH ×2 (07:36→12:57)
[2023-01-21] MEDS: ARIPiprazole 15 MG TAB PO SCH (08:36)
[2023-01-21] MEDS: POTASSIUM CHLORIDE CRTAB 20 MEQ TABCR PO SCH ×3 (08:37→20:22)
[2023-01-21] MEDS: BACLOFEN 10 MG TAB PO SCH ×2 (08:37→20:28)
[2023-01-21] MEDS: SERTRALINE HCL 100 MG TABLET PO SCH (08:37)
[2023-01-21] MEDS: APIXABAN 2.5 MG TAB PO SCH ×2 (08:37→20:24)
[2023-01-21] MEDS: MAGNESIUM OXIDE 400 MG TAB PO SCH (08:37)
[2023-01-21] MEDS: METOPROLOL TARTRATE 25 MG TAB PO SCH ×2 (08:37→20:23)
[2023-01-21] MEDS: ASPIRIN 81 MG ECTAB PO SCH (08:37)
[2023-01-21] MEDS: FUROSEMIDE INJ 20 MG/2 ML VIAL IV SCH ×2 (08:37→16:59)
[2023-01-21] MEDS: GABAPENTIN 600 MG TAB PO SCH ×3 (08:37→20:23)
[2023-01-21] MEDS: CYANOCOBALAMIN (B-12) 500 MCG TABLET PO SCH (08:37)
[2023-01-21 10:44] LABS: BUN Creatinine Ratio 22.7 (10-20); Calcium 9.6 mg/dl (8.6-10.3); Creatinine Clr Calc Pharmacy 148.9 ml/min; Est GFR (Non-African American) 84.5 ml/min; Magnesium 2.1 mg/dl (1.7-2.4); Potassium 3.5 mmol/L (3.5-5.1)
--- NOTE | 2023-01-21 13:04 | Hospitalist Progress Note ---
Date of Service January 20, 2023 DOS is 01/20/2023 Assessment & Plan (1) Depression: (2) Iron deficiency: (3) History of embolic stroke: (4) Acute diastolic CHF (congestive heart failure): (5) Morbid obesity: (6) S/P mitral valve replacement with bioprosthetic valve: (7) Left spastic hemiparesis: Admission and Anticipated Discharge Date Admission Date: January 17, 2023 Subjective Today no complaints. No new problems. She is witnessed to be coughing, sounds productive No sample has been obtained. Previously, patient seen on hospitalist rounds following her admission to the medical service last night. She had a discussion with the ER at attending and staff regarding wanting to be downgraded to DNR/DNI. Insomuch as she is being treated for depression, there is a concern that this may be a way of her saying that I do not want to live. Now appearing to floor she is a full code but it appears to be appropriate based on what she is telling me now. She is saying that I do not want to be paralyzed and debilitated and incapacitated if I have another stroke. So in essence she is saying that I would want to be a DNR if I have another stroke that is debilitating and incapacitating. Otherwise it is okay to treat me for other problems. This brings us back to the fact that she is a full code. Up Here on the floor she already feels better with diuresis and she has a pure wick external catheter. Results & Data Results & Data Vital Signs (Past 12 Hours) Vital Signs Temp Pulse Resp BP Pulse Ox O2 Del Method O2 Flow Rate 01/21/23 12:57 77 16 94 Nasal Cannula 01/21/23 10:49 Nasal Cannula 3 01/21/23 08:07 36.4 C L 83 18 114/74 95 Nasal Cannula 3 01/21/23 07:36 74 15 95 Nasal Cannula 3 01/21/23 03:00 36.7 C 68 18 104/67 95 Nasal Cannula 3 PG Care Time/CCT Total # of Minutes Spent Total Time Spent with Patient: Total time spent is greater than 50% in coordination of care (as documented) at patient's floor/unit and/or counseling patient: Coding Level of Care Code 86876 SUB INP/OBS CARE 25MIN Diagnoses Depression F32.A Iron deficiency E61.1 History of embolic stroke Z86.73 Acute diastolic CHF (congestive heart failure) I50.31 Morbid obesity E66.01 S/P mitral valve replacement with bioprosthetic valve Z95.3 Left spastic hemiparesis G81.14
--- NOTE | 2023-01-21 15:15 | Cardiology Consultation ---
Date of Consultation January 21, 2023 Assessment & Plan (1) Acute on chronic heart failure with preserved ejection fraction (HFpEF): (2) Edema: (3) Hypervolemia: (4) S/P mitral valve replacement with bioprosthetic valve: (5) Tobacco dependence: Plan ASSESSMENT/PLAN: 1. Hypervolemia/edema: Based on her description, consistent with heart failure with preserved EF. BNP was ordered and remains negative, although BNP can be artificially low in the setting of obesity. Regardless, she is improving with diuretics. Continue current diuretic. Continue net negative fluid balance given that her BUN and creatinine remained stable. Monitor electrolytes carefully. Strict I's and O's while hospitalized. Daily weights. Less than 2000 mg of sodium daily. Recommend heart failure program. High risk for readmission as she has been admitted several times this year and according to some available records, has demonstrated noncompliance in the past (although this may have been while still abusing IV drugs). Given high dose of Lasix leading up to this hospitalization, on discharge, would consider Bumex (2 or 3 mg twice daily depending on clinical course). 2. 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 She has had multiple limited echoes recently. Slightly elevated transvalvular gradient in November 2022. SBE prophylaxis. Monitor as an outpatient. 3. Depression: As per primary hospitalist service. 4. Anticoagulation: No cardiac indication for chronic anticoagulation therapy known at this time. According to records, was initiated in July 2022 when discharged from mitral valve replacement hospitalization for DVT prophylaxis. Will defer ongoing use to primary hospitalist service. 5. Tobacco abuse: Recommend smoking cessation. 6. Disposition: Cardiology will continue to follow along. Patient care discussed earlier in the day with Dr. Taylor of the primary hospitalist service. She requested that when she is discharged, that she follow with [facility] cardiology. We will help arrange. She was agreeable to be entered into the heart failure program. Close follow-up very important given multiple readmissions. Highly complex medical issues. Thank you for allowing me to participate in the care of your patient. Please call for any other questions or concerns. Sincerely, Jayy Tovar M.D. History of Present Illness Reason for Consultation: Question acute/chronic CHF; history of mitral valve replacement Requesting Physician: Kurt Taylor MD Attending Physician: Kurt Taylor MD History of Present Illness Ms. 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 She has had the following studies/procedures: 1. Echo 04/19/2022: Mildly dilated LV. EF 65 to 70%. LV not fully visualized. Ill-defined mobile echodensity involving the mitral valve, suspicious for vegetation and possibly significant MR, but not fully investigated on this limited echo. Moderate to severe pulmonary hypertension (RVSP > 55 mmHg). Patient refused further images. 2. Mitral valve replacement 07/23/2022 [facility]: Performed due to mitral valve endocarditis and severe mitral regurgitation. Underwent #33 epic Biocor porcine bioprosthesis. Exclusion of the left atrial appendage. She had been seen/followed with [facility] cardiology in the [place] area. She reports that she has not been seen recently by [facility] cardiology and does not know of any follow-up pending. She was admitted here on 01/17/2023 with increased edema and approximately 15 pound weight gain. She has been hospitalized frequently in 2022, including mitral valve replacement with [facility] on 07/23/2022. She also was discharged on 01/08/2023 from this facility after being treated for edema. According to the discharge summary, her home dose of Lasix was increased from 40 mg twice daily to 80 mg daily on discharge. Despite more aggressive diuresis, her renal function remained stable. She was also newly diagnosed with hypothyroidism and there was concern that untreated sleep apnea was contributing to her edema by the hospitalist service. Medical therapy was also considered (Abilify and gabapentin). After returning home, she gained approximately 15 pounds over the next 4 to 10 days and noted increased lower extremity edema. She also developed a cough that is productive of green sputum over the past 3 to 4 days, but this is now improving. She denies shortness of breath initially. She then stated that she has had orthopnea since mitral valve replacement and has been sleeping in a recliner. She mostly uses a wheelchair but is able to walk very short distances following her stroke. While sitting, throughout most of the day, she states that she does elevate legs. She does not add salt to food and her mother prepares food. She states that her mother typically prepares frozen or fresh food, keeping with a low-sodium diet. She also weighs herself daily. She has been using supplemental oxygen 2 L via nasal cannula nightly and when she was seen this morning, she was using 3 L. While here she has been receiving Lasix 60 mg IV twice daily and has been diuresing. She has noted improvement in her lower extremity edema. She denies angina, syncope, near syncope, palpitations, melena, hematochezia, or hematuria. Review of systems: As above. Review of systems otherwise negative/unremarkable. Family history: Grandfathers had PA. Social history: She had smoked for approximately 16 pack years and is now vaping in an attempt to quit using cigarettes. History of IV drug abuse but none for the past 10 months (2021). Denies alcohol abuse. Lives at home with her mother and 3 daughters. She was unaccompanied in her hospital room. Allergies Allergy/AdvReac Type Severity Reaction Status Date / Time sulfamethoxazole Allergy Severe Anaphylaxis Verified 12/16/22 17:56 [From Bactrim] trimethoprim [From Bactrim] Allergy Severe Anaphylaxis Verified 12/16/22 17:56 atorvastatin AdvReac Intermediate Muscle Pain Verified 12/16/22 17:56 Home Medications Medication Instructions Recorded Confirmed Type Wheelchair (Manual) #1 ea 03/25/22 01/17/23 Rx Hospital Bed Homecare (Hospital #1 ea 04/18/22 01/17/23 Rx Bed) Wheelchair (Manual) (Manual #1 ea 04/18/22 01/17/23 Rx Wheelchair) Lift Chair #1 ea 10/09/22 01/17/23 Rx miscellaneous medical supply #1 ea 10/16/22 01/17/23 Rx ketoconazole 2 % topical cream 1 applic topical BID 4 weeks #15 11/19/22 Rx grams aspirin 81 mg chewable tablet 81 mg PO DAILY 12/16/22 01/17/23 History fluticasone propionate 100 1 inh inhalation BID #60 ea 12/16/22 01/17/23 Rx mcg/actuation blister powder for inhalation (Flovent Diskus) gabapentin 600 mg tablet 600 mg PO TID 12/16/22 01/17/23 History ipratropium 20 mcg-albuterol 100 1 puff inhalation TID 12/16/22 01/17/23 History mcg/actuation mist for inhalation (Combivent Respimat) melatonin 3 mg tablet 3 mg PO HS 12/16/22 01/17/23 History methadone 10 mg tablet 72 mg PO DAILY 12/16/22 01/17/23 History metoprolol tartrate 50 mg tablet 25 mg PO BID #30 tabs 12/16/22 01/17/23 Rx multivitamin with minerals 1 tab PO DAILY 12/16/22 01/17/23 History trazodone 50 mg tablet 50 mg PO HS #30 tabs 12/16/22 01/17/23 Rx sertraline 100 mg tablet 200 mg PO DAILY #60 tabs 12/17/22 01/17/23 Rx epinephrine 0.3 mg/0.3 mL 0.3 mg (0.3 mL) IM .COMPLEX PRN 12/26/22 01/17/23 Rx injection, auto-injector anaphylaxis #2 ea apixaban 2.5 mg tablet 2.5 mg PO BID #60 tabs 01/08/23 01/17/23 Rx aripiprazole 15 mg tablet (Abilify) 15 mg PO DAILY #30 tabs 01/08/23 01/17/23 Rx baclofen 10 mg tablet 10 mg PO BID #60 tabs 01/08/23 01/17/23 Rx clonazepam 0.5 mg tablet 0.5 mg PO HS #30 tabs 01/08/23 01/17/23 Rx cyanocobalamin (vitamin B-12) 1,000 mcg PO DAILY #90 tabs 01/08/23 01/17/23 Rx 1,000 mcg tablet furosemide 80 mg tablet 80 mg PO BID #60 tabs 01/08/23 01/17/23 Rx levothyroxine 50 mcg tablet 50 mcg PO DAILYBB #30 tabs 01/08/23 01/17/23 Rx (Synthroid) magnesium oxide 400 mg (241.3 mg 400 mg PO DAILY #30 tabs 01/08/23 01/17/23 Rx magnesium) tablet nicotine 7 mg/24 hr daily 7 mg transdermal QAM #30 ea 01/08/23 01/17/23 Rx transdermal patch potassium chloride 20 mEq 20 meq PO BID #60 tabs 01/08/23 01/17/23 Rx tablet,extended release Patient History Medical History Anemia Anxiety Bipolar disorder Chronic right arterial ischemic stroke, MCA (middle cerebral artery) Drug abuse and dependence Endocarditis History of embolic stroke Rt MCA Hypoxia PCOS (polycystic ovarian syndrome) Splenic abscess Thalassemia Surgical History H/O mitral valve replacement History of section History of repair of ACL History of tubal ligation Family History Grandmother (Paternal) Breast cancer Grandfather (Maternal) Myocardial infarction Graves disease Grandfather (Paternal) Myocardial infarction Other Thalassemia Denies family history of Colon cancer Ovarian cancer Prostate cancer Social History Smoking Status: Current every day smoker Tobacco Type: Cigarettes packs per day: 1; Second Hand Exposure: Yes; Do You Dip or Chew Tobacco: No; Hx Alcohol Use: No Hx Substance Use: No Preferred Language: German Communication Ability: Effective Visual Impairment: No Limitations Hearing Ability: Normal Director [employer] Required: No Beliefs That Will Affect Care: Spiritual marital status: Single Current Living Situation: Parent Current Living Situation Comment: boyfriend and her 3 daughters 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 Alert. HEENT: Anicteric sclera. Neck: Thick neck. No bruits. Normal carotid upstrokes bilaterally. Cardiac: No ventricular heave. Regular. Distant S1-S2. No murmurs, rubs, or gallops. Pulmonary: Coarse breath signs bilaterally. Abdomen: Soft, nontender, nondistended, with normoactive bowel sounds. No bruits noted. Extremities: 2+ radial pulses bilaterally. 2+ posterior tibialis pulses bilaterally. No sniffing and pitting edema or cyanosis. Results & Data Vital Signs (Past 12 Hours) Vital Signs Temp Pulse Resp BP Pulse Ox O2 Del Method O2 Flow Rate 01/21/23 12:57 77 16 94 Nasal Cannula 01/21/23 10:49 Nasal Cannula 3 01/21/23 08:07 36.4 C L 83 18 114/74 95 Nasal Cannula 3 01/21/23 07:36 74 15 95 Nasal Cannula 3 01/21/23 03:00 36.7 C 68 18 104/67 95 Nasal Cannula 3 Intake & Output 01/19/23 01/20/23 01/21/23 01/22/23 06:59 06:59 06:59 06:59 Intake Total 600 / 600 2120 / 2120 600 / 600 Output Total 1425 / 1425 900 / 900 1102 / 1102 Balance -825 / -825 1220 / 1220 -502 / -502 Weight 375 lb 14.21 oz 376 lb 12.32 oz 376 lb 15.847 oz Laboratory Results Laboratory Results - last 24 hr 01/21/23 01/21/23 01/21/23 10:00 10:00 11:07 Sodium 137 Potassium 3.5 Chloride 94 L Carbon Dioxide 34 H Anion Gap 9 BUN 20 Creatinine 0.88 Est Cr Clr Drug Dosing 148.9 Est GFR ( Amer) 98.0 Est GFR (Non-Af Amer) 84.5 BUN/Creatinine Ratio 22.7 H Glucose 122 H Calcium 9.6 Magnesium 2.1 B-Natriuretic Peptide 44 TSH 7.463 H SARS-CoV-2 (PCR) Influenza Type A (PCR) Influenza Type B (PCR) RSV (RT-PCR) 01/21/23 Unknown Sodium Potassium Chloride Carbon Dioxide Anion Gap BUN Creatinine Est Cr Clr Drug Dosing Est GFR ( Amer) Est GFR (Non-Af Amer) BUN/Creatinine Ratio Glucose Calcium Magnesium B-Natriuretic Peptide TSH SARS-CoV-2 (PCR) NEGATIVE Influenza Type A (PCR) Negative Influenza Type B (PCR) Negative RSV (RT-PCR) Negative Diagnostic Findings Echo images reviewed personally from 12/17/2022 and 01/18/2023: Normal LV systolic function. There appears to be mild mitral regurgitation involving the bioprosthetic mitral valve. On the 12/17/2022 study, the mean gradient was slightly elevated at 6 mmHg at a heart rate of 75 bpm. Echo 01/18/2023 report: Normal LV systolic function. No regional wall motion abnormalities. At least mild mitral regurgitation. Telemetry personally reviewed sinus rhythm. No significant arrhythmia. ECG personally reviewed 01/18/2023: Sinus rhythm 97 bpm. Chest x-ray 01/17/2023: Mild central pulmonary vascular congestion per radiology, without overt edema. Venous Doppler 12/26/2022: No DVT bilateral lower extremities. Medications Administered Current Inpatient Medications Acetaminophen (Acetaminophen 325 Mg Tab) 650 mg PO Q4H PRN PRN Reason: Pain or Fever Stop: 02/16/23 22:09 Last Admin: 01/19/23 12:35 Dose: 650 mg Albuterol (Albuterol Hfa 8 Gm Inhaler (Combivent Respimat P&T Subs)) 1 puffs INH TIDR [facility]; Protocol Stop: 02/17/23 06:59 Last Admin: 01/21/23 12:57 Dose: 1 puffs Albuterol (Albut/Ipratrop 3mg/0.5mg Neb 3 Ml Vial) 3 ml NEB QIDR [facility]; Protocol Stop: 02/20/23 18:59 Last Admin: 01/21/23 19:44 Dose: 3 ml Apixaban (Apixaban 2.5 Mg Tab) 2.5 mg PO BID [facility] Stop: 02/17/23 08:59 Last Admin: 01/21/23 20:24 Dose: 2.5 mg Aripiprazole (Aripiprazole 15 Mg Tab) 15 mg PO DAILY [facility] Stop: 02/17/23 08:59 Last Admin: 01/21/23 08:36 Dose: 15 mg Aspirin (Aspirin 81 Mg Ectab) 81 mg PO DAILY [facility] Stop: 02/17/23 08:59 Last Admin: 01/21/23 08:37 Dose: 81 mg Baclofen (Baclofen 10 Mg Tab) 10 mg PO BID [facility] Stop: 02/16/23 22:09 Last Admin: 01/21/23 20:28 Dose: 10 mg Bisacodyl (Bisacodyl 10 Mg Supp) 10 mg MT DAILY PRN PRN Reason: Constipation Stop: 02/19/23 18:11 Clonazepam (Clonazepam 0.5 Mg Tab) 0.5 mg PO HS [facility] Stop: 02/17/23 20:59 Last Admin: 01/21/23 20:22 Dose: 0.5 mg Clonazepam (Clonazepam 0.5 Mg Tab) 0.5 mg PO Q8 PRN PRN Reason: Anxiety or restless Stop: 02/18/23 14:52 Last Admin: 01/19/23 15:05 Dose: 0.5 mg Cyanocobalamin (Cyanocobalamin (B-12) 500 Mcg Tablet) 1,000 mcg PO DAILY [facility] Stop: 02/17/23 08:59 Last Admin: 01/21/23 08:37 Dose: 1,000 mcg Furosemide (Furosemide Inj 20 Mg/2 Ml Vial) 60 mg IV BID17 [facility] Stop: 02/17/23 08:59 Last Admin: 01/21/23 16:59 Dose: 60 mg Gabapentin (Gabapentin 600 Mg Tab) 600 mg PO TID [facility] Stop: 02/16/23 22:09 Last Admin: 01/21/23 20:23 Dose: 600 mg Guaifenesin (Guaifenesin 600 Mg Tabcr) 1,200 mg PO Q12 [facility] Stop: 02/20/23 20:59 Last Admin: 01/21/23 20:24 Dose: 1,200 mg Methylprednisolone 40 mg/ (Syringe) 0.64 mls @ 1.5 mls/min IV Q12H [facility] Stop: 02/20/23 17:59 Last Admin: 01/21/23 18:46 Dose: 1.5 mls/min Ipratropium [place] (Ipratropium Hfa Inhaler (Combivent Respimat P&T Subs)) 1 puffs INH TIDR [facility]; Protocol Stop: 02/17/23 06:59 Last Admin: 01/21/23 12:57 Dose: 1 puffs Levothyroxine Sodium (Levothyroxine Sodium 75 Mcg Tablet) 75 mcg PO DAILYBB [facility] Stop: 02/21/23 06:29 Magnesium Oxide (Magnesium Oxide 400 Mg Tab) 400 mg PO DAILY [facility] Stop: 02/17/23 08:59 Last Admin: 01/21/23 08:37 Dose: 400 mg Melatonin (Melatonin 3 Mg Tab) 3 mg PO HS [facility] Stop: 02/16/23 22:09 Last Admin: 01/21/23 20:22 Dose: 3 mg Methadone HCl (Methadone Oral Soln 2 Mg/Ml) 72 mg PO HS [facility] Stop: 02/01/23 20:59 Last Admin: 01/21/23 20:22 Dose: 72 mg Metoprolol Tartrate (Metoprolol Tartrate 25 Mg Tab) 25 mg PO BID [facility] Stop: 02/17/23 08:59 Last Admin: 01/21/23 20:23 Dose: 25 mg Miscellaneous (Remove Nicoderm Patch) 1 each N/A DAILY@0859 [facility] Stop: 02/17/23 08:58 Last Admin: 01/21/23 08:37 Dose: 1 each Nicotine (Nicotine 14 Mg/24 Hr Patch) 7 mg TD QAM PRN PRN Reason: craving Stop: 02/16/23 19:59 Non-Formulary Medication (Patient's Own Controlled Med 1) 1 each PO HS [facility] Stop: 02/01/23 20:59 Last Admin: 01/21/23 20:24 Dose: 1 btl Polyethylene Glycol (Polyethylene (Miralax) 17 Gm Pack) 17 gm PO DAILY PRN PRN Reason: Constipation Stop: 02/19/23 14:35 Potassium Chloride (Potassium Chloride Crtab 20 Meq Tabcr) 20 meq PO TID [facility] Stop: 02/20/23 13:59 Last Admin: 01/21/23 20:22 Dose: 20 meq Sertraline HCl (Sertraline Hcl 100 Mg Tablet) 200 mg PO DAILY [facility] Stop: 02/17/23 08:59 Last Admin: 01/21/23 08:37 Dose: 200 mg Trazodone HCl (Trazodone Hcl 50 Mg Tab) 50 mg PO [facility] Stop: 02/17/23 20:59 Last Admin: 01/21/23 20:28 Dose: 50 mg PG Care Time/CCT Total # of Minutes Spent Total Time Spent with Patient: Total time spent is greater than 50% in coordination of care (as documented) at patient's floor/unit and/or counseling patient: Coding Level of Care Code 53075 INT INP/OBS CARE 3/75MIN Diagnoses Acute on chronic heart failure with preserved ejection fraction (HFpEF) I50.33 Edema R60.9 Hypervolemia E87.70 S/P mitral valve replacement with bioprosthetic valve Z95.3 Tobacco dependence F17.200
[2023-01-21] MEDS: methylPREDNISolone 40 MG in SYRINGE 0 ML IV SCH (18:46)
[2023-01-21] MEDS: ALBUT/IPRATROP 3MG/0.5MG NEB 3 ML VIAL NEB SCH (19:44)
[2023-01-21] MEDS: METHADONE ORAL SOLN 2 MG/ML PO SCH (20:22)
[2023-01-21] MEDS: clonazePAM 0.5 MG TAB PO SCH (20:22)
[2023-01-21] MEDS: MELATONIN 3 MG TAB PO SCH (20:22)
[2023-01-21] MEDS: PATIENT'S OWN CONTROLLED MED 1 PO SCH (20:24)
[2023-01-21] MEDS: guaiFENesin 600 MG TABCR PO SCH (20:24)
[2023-01-21 20:27] LABS: Influenza A virus by PCR Negative (Neg); Influenza B virus by PCR Negative (Neg); RSV by PCR Negative (Neg); SARS CoV2 RNA(COVID-19) Ceph NEGATIVE (Negative)
[2023-01-21] MEDS: traZODone HCL 50 MG TAB PO SCH (20:28)
[2023-01-22] MEDS: methylPREDNISolone 40 MG in SYRINGE 0 ML IV SCH ×2 (05:59→19:32)
[2023-01-22] MEDS: LEVOTHYROXINE SODIUM 75 MCG TABLET PO SCH (05:59)
[2023-01-22 06:41] LABS: Calcium 9.7 mg/dl (8.6-10.3); Potassium 4.6 mmol/L (3.5-5.1)
[2023-01-22 06:46] LABS: BUN Creatinine Ratio 27.5 (10-20); Est GFR (African American) 94.1 ml/min; Est GFR (Non-African American) 81.2 ml/min
[2023-01-22] MEDS: ALBUT/IPRATROP 3MG/0.5MG NEB 3 ML VIAL NEB SCH ×4 (07:05→19:36)
[2023-01-22] MEDS: APIXABAN 2.5 MG TAB PO SCH ×2 (09:37→21:21)
[2023-01-22] MEDS: METOPROLOL TARTRATE 25 MG TAB PO SCH ×2 (09:38→21:21)
[2023-01-22] MEDS: GABAPENTIN 600 MG TAB PO SCH ×3 (09:38→21:22)
[2023-01-22] MEDS: guaiFENesin 600 MG TABCR PO SCH ×2 (09:38→21:21)
[2023-01-22] MEDS: POTASSIUM CHLORIDE CRTAB 20 MEQ TABCR PO SCH ×2 (09:38→21:23)
[2023-01-22] MEDS: ASPIRIN 81 MG ECTAB PO SCH (09:38)
[2023-01-22] MEDS: CYANOCOBALAMIN (B-12) 500 MCG TABLET PO SCH (09:38)
[2023-01-22] MEDS: ARIPiprazole 15 MG TAB PO SCH (09:38)
[2023-01-22] MEDS: MAGNESIUM OXIDE 400 MG TAB PO SCH (09:38)
--- NOTE | 2023-01-22 09:38 | Hospitalist Progress Note ---
Date of Service January 21, 2023 Assessment & Plan (1) Acute diastolic CHF (congestive heart failure): Plan: during previous admission was volume overloaded and diuresed her volume overload was thought to be 2nd to new-onset hypothyroidism, medications, untreated CARINA, etc returns with volume overload cardiology consulted - they feel that this is indeed diastolic CHF will treat as such cont IV lasix BID salt restriction BMP daily treat hypothyroidism CHF clinic post-d/c (2) Depression: Plan: cont all previous outpatient meds (3) Iron deficiency: Plan: s/p venofer last admission H/H stable has known h/o thalaseemia as well (4) History of embolic stroke: (5) Morbid obesity: Plan: BMI >50 (6) S/P mitral valve replacement with bioprosthetic valve: Plan: serial echos 2022 with intact valve function (7) Left spastic hemiparesis: Plan: 2nd to prior stroke previous stroke likely was due to left-sided endocarditis remains on aspirin for secondary prophylaxis (8) Primary hypothyroidism: Plan: started on synthroid about 6 weeks ago TSH still high titrate synthroid to 75mcg daily repeat TSH again 6 weeks (9) Acute bronchitis: Plan: likely viral in etiology COVID/flu/RSV negative add solumedrol scheduled duonebs QID mucinex flutter valve O2 as needed suspect underlying COPD from chronic tobacco use Plan DVT proph - eliquis 2.5mg BID appreciate cardiology eval Admission and Anticipated Discharge Date Admission Date: January 17, 2023 Subjective pt reports cough, congestion, wheezing, some sputum her daughter was recently sick with URI pt reports getting "bronchitis" frequently with URIs dyspnea is improved from time of admission eating ok did have fever at home prior to coming to hospital but none here does confirm when she fell her left leg "went behind her" but she denies any pain in either leg Review of Systems Review of Systems: cv - no chest pain or tightness pulm - dyspnea improved GI - no abd pain/nausea/vomiting Physical Exam Physical Exam: gen - morbidly obese, NAD, bronchial cough present neck - difficult to assess JVD due to neck size mouth - MMM heart - RRR, s1 s2, no murmur lungs - diffuse wheezing ant and posteriorly; rales bases; no increased work of breathing abd - soft NT ND BS+ ext - 1+ edema b/l legs, mild edema left arm, none on right arm; pulses feet 2+ b/l Results & Data Results & Data Vital Signs (Past 12 Hours) Vital Signs Temp Pulse Pulse Pulse Resp BP Pulse Ox 01/21/23 15:42 36.6 C 73 18 114/65 97 01/21/23 12:57 77 16 94 01/21/23 10:49 O2 Del Method O2 Flow Rate 01/21/23 15:42 Nasal Cannula 3 01/21/23 12:57 Nasal Cannula 01/21/23 10:49 Nasal Cannula 3 Laboratory Results Laboratory Results - last 48 hr 01/20/23 01/21/23 01/21/23 11:11 10:00 10:00 WBC 7.09 RBC 4.25 Hgb 9.4 L Hct 32.6 L MCV 76.7 L MCH 22.1 L MCHC 28.8 L RDW Std Deviation 39.9 RDW Coeff of Alexia 14.4 Plt Count 371 MPV 9.4 Immature Gran % (Auto) 0.3 Neut % (Auto) 67.0 Lymph % (Auto) 18.6 [place] % (Auto) 6.3 Eos % (Auto) 7.2 Baso % (Auto) 0.6 Neut # (Auto) 4.75 Lymph # (Auto) 1.32 [place] # (Auto) 0.45 Eos # (Auto) 0.51 H Baso # (Auto) 0.04 Immature Gran # (Auto) 0.02 Polychromasia 1+ Sodium 137 Potassium 3.5 Chloride 94 L Carbon Dioxide 34 H Anion Gap 9 BUN 20 Creatinine 0.88 Est Cr Clr Drug Dosing 148.9 Est GFR ( Amer) 98.0 Est GFR (Non-Af Amer) 84.5 BUN/Creatinine Ratio 22.7 H Glucose 122 H Calcium 9.6 Magnesium 2.1 B-Natriuretic Peptide TSH 7.463 H SARS-CoV-2 (PCR) Influenza Type A (PCR) Influenza Type B (PCR) RSV (RT-PCR) 01/21/23 01/21/23 11:07 Unknown WBC RBC Hgb Hct MCV MCH MCHC RDW Std Deviation RDW Coeff of Alexia Plt Count MPV Immature Gran % (Auto) Neut % (Auto) Lymph % (Auto) [place] % (Auto) Eos % (Auto) Baso % (Auto) Neut # (Auto) Lymph # (Auto) [place] # (Auto) Eos # (Auto) Baso # (Auto) Immature Gran # (Auto) Polychromasia Sodium Potassium Chloride Carbon Dioxide Anion Gap BUN Creatinine Est Cr Clr Drug Dosing Est GFR ( Amer) Est GFR (Non-Af Amer) BUN/Creatinine Ratio Glucose Calcium Magnesium B-Natriuretic Peptide 44 TSH SARS-CoV-2 (PCR) NEGATIVE Influenza Type A (PCR) Negative Influenza Type B (PCR) Negative RSV (RT-PCR) Negative PG Care Time/CCT Total # of Minutes Spent Total Time Spent with Patient: Total time spent is greater than 50% in coordination of care (as documented) at patient's floor/unit and/or counseling patient: Coding Level of Care Code 47261 SUB INP/OBS CARE 3/50MIN Diagnoses Acute diastolic CHF (congestive heart failure) I50.31 Depression F32.A Iron deficiency E61.1 History of embolic stroke Z86.73 Morbid obesity E66.01 S/P mitral valve replacement with bioprosthetic valve Z95.3 Left spastic hemiparesis G81.14 Primary hypothyroidism E03.9 Acute bronchitis J20.9
[2023-01-22] MEDS: BACLOFEN 10 MG TAB PO SCH ×2 (09:39→21:22)
[2023-01-22] MEDS: FUROSEMIDE INJ 20 MG/2 ML VIAL IV SCH (09:39)
[2023-01-22] MEDS: SERTRALINE HCL 100 MG TABLET PO SCH (09:39)
--- NOTE | 2023-01-22 12:02 | Cardiology Progress Note ---
Date of Service January 22, 2023 Assessment & Plan (1) Acute on chronic heart failure with preserved ejection fraction (HFpEF): (2) Edema: (3) Hypervolemia: (4) S/P mitral valve replacement with bioprosthetic valve: (5) Tobacco dependence: Plan ASSESSMENT/PLAN: 1. Hypervolemia/edema: Based on her description, consistent with heart failure with preserved EF. BNP was ordered and remains negative, although BNP can be artificially low in the setting of obesity. BUN trending upward, suggesting mild azotemia. We will discontinue intravenous Lasix. Start Bumex 2 mg p.o. twice daily. Monitor electrolytes carefully. Strict I's and O's while hospitalized. Daily weights. Less than 2000 mg of sodium daily. Recommend heart failure program. High risk for readmission as she has been admitted several times this year and according to some available records, has demonstrat ed noncompliance in the past (although this may have been while still abusing IV drugs). 2. 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 Slightly elevated transvalvular gradient in November 2022. SBE prophylaxis. Monitor as an outpatient. 3. Depression: As per primary hospitalist service. 4. Anticoagulation: No cardiac indication for chronic anticoagulation therapy known at this time. According to records, was initiated in July 2022 when discharged from mitral valve replacement hospitalization for DVT prophylaxis. Will defer ongoing use to primary hospitalist service. 5. Tobacco abuse: Smoke cessation. 6. Disposition: Cardiology will continue to follow along. Patient care discussed with Dr. Taylor of the primary hospitalist service. She requested that when she is discharged, that she follow with [facility]. We will help arrange. She was agreeable to be entered into the heart failure program. Close follow-up very important given multiple readmissions. Admission and Anticipated Discharge Date Admission Date: January 17, 2023 Subjective She is feeling better overall today. She denies shortness of breath. She has been weaned off of supplemental oxygen. She denies chest pain. Coughing has improved with nebulizer treatments and steroids. Her daughter had recent upper respiratory infection as well. She denies syncope, near syncope, palpitations. Edema has improved. She was seated at the bedside in a chair. She expressed motivation in managing her volume status from home to hopefully avoid recurrent hospitalization. She was alone in her hospital room. Physical Exam Physical Exam: Gen.: No acute distress. Alert. HEENT: Anicteric sclera. Neck: Thick neck. Cardiac: No ventricular heave. Regular. Distant S1-S2. 1/6 systolic murmur. No rubs or gallops. Pulmonary: Significantly improved breath sounds. Occasional coarse breath sound but otherwise clear bilaterally. Abdomen: Soft, nontender, nondistended, with normoactive bowel sounds. No bruits noted. Extremities: 2+ radial pulses bilaterally. 2+ posterior tibialis pulses bilaterally. No significant pitting edema. No cyanosis. Results & Data Vital Signs (Past 12 Hours) Vital Signs Temp Pulse Pulse Resp BP Pulse Ox O2 Del Method 01/22/23 10:52 86 18 92 Room Air 01/22/23 08:04 36.8 C 81 15 116/74 92 Room Air 01/22/23 07:06 68 18 93 Room Air Intake & Output 01/20/23 01/21/23 01/22/23 01/23/23 06:59 06:59 06:59 06:59 Intake Total 2120 / 2120 600 / 600 300 / 300 Output Total 900 / 900 1102 / 1102 Balance 1220 / 1220 -502 / -502 300 / 300 Weight 376 lb 12.32 oz 376 lb 15.847 oz There are reported unmeasured voids as well to factor into intake and output. Laboratory Results Laboratory Results - last 24 hr 01/21/23 01/22/23 Unknown 06:03 Sodium 137 Potassium 4.6 D Chloride 96 L Carbon Dioxide 35 H Anion Gap 6 BUN 25 H Creatinine 0.91 Est Cr Clr Drug Dosing 144.0 Est GFR ( Amer) 94.1 Est GFR (Non-Af Amer) 81.2 BUN/Creatinine Ratio 27.5 H Glucose 123 H Calcium 9.7 SARS-CoV-2 (PCR) NEGATIVE Influenza Type A (PCR) Negative Influenza Type B (PCR) Negative RSV (RT-PCR) Negative Diagnostic Findings Telemetry personally reviewed: Sinus rhythm. No arrhythmia. Labs reviewed and notable for normal potassium, stable renal function but BUN slightly trending upward. Medications Administered Current Inpatient Medications Acetaminophen (Acetaminophen 325 Mg Tab) 650 mg PO Q4H PRN PRN Reason: Pain or Fever Stop: 02/16/23 22:09 Last Admin: 01/19/23 12:35 Dose: 650 mg Albuterol (Albuterol Hfa 8 Gm Inhaler (Combivent Respimat P&T Subs)) 1 puffs INH TIDR [facility]; Protocol Stop: 02/17/23 06:59 Last Admin: 01/21/23 12:57 Dose: 1 puffs Albuterol (Albut/Ipratrop 3mg/0.5mg Neb 3 Ml Vial) 3 ml NEB QIDR [facility]; Protocol Stop: 02/20/23 18:59 Last Admin: 01/22/23 10:52 Dose: 3 ml Apixaban (Apixaban 2.5 Mg Tab) 2.5 mg PO BID [facility] Stop: 02/17/23 08:59 Last Admin: 01/22/23 09:37 Dose: 2.5 mg Aripiprazole (Aripiprazole 15 Mg Tab) 15 mg PO DAILY [facility] Stop: 02/17/23 08:59 Last Admin: 01/22/23 09:38 Dose: 15 mg Aspirin (Aspirin 81 Mg Ectab) 81 mg PO DAILY [facility] Stop: 02/17/23 08:59 Last Admin: 01/22/23 09:38 Dose: 81 mg Baclofen (Baclofen 10 Mg Tab) 10 mg PO BID [facility] Stop: 02/16/23 22:09 Last Admin: 01/22/23 09:39 Dose: 10 mg Bisacodyl (Bisacodyl 10 Mg Supp) 10 mg [place] DAILY PRN PRN Reason: Constipation Stop: 02/19/23 18:11 Clonazepam (Clonazepam 0.5 Mg Tab) 0.5 mg PO HS [facility] Stop: 02/17/23 20:59 Last Admin: 01/21/23 20:22 Dose: 0.5 mg Clonazepam (Clonazepam 0.5 Mg Tab) 0.5 mg PO Q8 PRN PRN Reason: Anxiety or restless Stop: 02/18/23 14:52 Last Admin: 01/19/23 15:05 Dose: 0.5 mg Cyanocobalamin (Cyanocobalamin (B-12) 500 Mcg Tablet) 1,000 mcg PO DAILY [facility] Stop: 02/17/23 08:59 Last Admin: 01/22/23 09:38 Dose: 1,000 mcg Furosemide (Furosemide Inj 20 Mg/2 Ml Vial) 60 mg IV BID17 [facility] Stop: 02/17/23 08:59 Last Admin: 01/22/23 09:39 Dose: 60 mg Gabapentin (Gabapentin 600 Mg Tab) 600 mg PO TID [facility] Stop: 02/16/23 22:09 Last Admin: 01/22/23 09:38 Dose: 600 mg Guaifenesin (Guaifenesin 600 Mg Tabcr) 1,200 mg PO Q12 [facility] Stop: 02/20/23 20:59 Last Admin: 01/22/23 09:38 Dose: 1,200 mg Methylprednisolone 40 mg/ (Syringe) 0.64 mls @ 1.5 mls/min IV Q12H [facility] Stop: 02/20/23 17:59 Last Admin: 01/22/23 05:59 Dose: 1.5 mls/min Ipratropium [place] (Ipratropium Hfa Inhaler (Combivent Respimat P&T Subs)) 1 puffs INH TIDR [facility]; Protocol Stop: 02/17/23 06:59 Last Admin: 01/21/23 12:57 Dose: 1 puffs Levothyroxine Sodium (Levothyroxine Sodium 75 Mcg Tablet) 75 mcg PO DAILYBB [facility] Stop: 02/21/23 06:29 Last Admin: 01/22/23 05:59 Dose: 75 mcg Magnesium Oxide (Magnesium Oxide 400 Mg Tab) 400 mg PO DAILY [facility] Stop: 02/17/23 08:59 Last Admin: 01/22/23 09:38 Dose: 400 mg Melatonin (Melatonin 3 Mg Tab) 3 mg PO [facility] Stop: 02/16/23 22:09 Last Admin: 01/21/23 20:22 Dose: 3 mg Methadone HCl (Methadone Oral Soln 2 Mg/Ml) 72 mg PO [facility] Stop: 02/01/23 20:59 Last Admin: 01/21/23 20:22 Dose: 72 mg Metoprolol Tartrate (Metoprolol Tartrate 25 Mg Tab) 25 mg PO BID [facility] Stop: 02/17/23 08:59 Last Admin: 01/22/23 09:38 Dose: 25 mg Miscellaneous (Remove Nicoderm Patch) 1 each N/A DAILY@0859 [facility] Stop: 02/17/23 08:58 Last Admin: 01/22/23 09:39 Dose: Not Given Nicotine (Nicotine 14 Mg/24 Hr Patch) 7 mg TD QAM PRN PRN Reason: craving Stop: 02/16/23 19:59 Non-Formulary Medication (Patient's Own Controlled Med 1) 1 each PO HS [facility] Stop: 02/01/23 20:59 Last Admin: 01/21/23 20:24 Dose: 1 btl Polyethylene Glycol (Polyethylene (Miralax) 17 Gm Pack) 17 gm PO DAILY PRN PRN Reason: Constipation Stop: 02/19/23 14:35 Potassium Chloride (Potassium Chloride Crtab 20 Meq Tabcr) 20 meq PO BID [facility] Stop: 02/21/23 20:59 Sertraline HCl (Sertraline Hcl 100 Mg Tablet) 200 mg PO DAILY [facility] Stop: 02/17/23 08:59 Last Admin: 01/22/23 09:39 Dose: 200 mg Trazodone HCl (Trazodone Hcl 50 Mg Tab) 50 mg PO HS [facility] Stop: 02/17/23 20:59 Last Admin: 01/21/23 20:28 Dose: 50 mg PG Care Time/CCT Total # of Minutes Spent Total Time Spent with Patient: Total time spent is greater than 50% in coordination of care (as documented) at patient's floor/unit and/or counseling patient: Coding Level of Care Code 97913 SUB INP/OBS CARE 3/50MIN Diagnoses Acute on chronic heart failure with preserved ejection fraction (HFpEF) I50.33 Edema R60.9 Hypervolemia E87.70 S/P mitral valve replacement with bioprosthetic valve Z95.3 Tobacco dependence F17.200
--- NOTE | 2023-01-22 20:48 | Hospitalist Progress Note ---
Date of Service January 22, 2023 Assessment & Plan (1) Acute diastolic CHF (congestive heart failure): Plan: during previous admission was volume overloaded and diuresed her volume overload was thought to be 2nd to new-onset hypothyroidism, medications, untreated [facility], etc returns with volume overload cardiology consulted - they feel that this is indeed diastolic CHF volume status much improved lasix d/c today changing to bumex 2mg BID salt restriction BMP daily treat hypothyroidism CHF clinic with Ms Emy Malone post-d/c (2) Depression: Plan: cont all previous outpatient meds (3) Iron deficiency: Plan: s/p venofer last admission H/H stable has known h/o thalaseemia as well (4) History of embolic stroke: Plan: 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 with resulting left sided hemiparesis (5) Morbid obesity: Plan: BMI >50 (6) S/P mitral valve replacement with bioprosthetic valve: Plan: serial echos 2022 with intact valve function (7) Left spastic hemiparesis: Plan: 2nd to prior stroke previous stroke likely was due to left-sided endocarditis remains on aspirin for secondary prophylaxis (8) Primary hypothyroidism: Plan: started on synthroid about 6 weeks ago TSH still high titrated synthroid to 75mcg daily this admission repeat TSH again 6 weeks (9) Acute bronchitis: Plan: improved today likely viral in etiology COVID/flu/RSV negative on BID IV solumedrol and scheduled duonebs QID mucinex flutter valve stop solumedrol; change to PO prednisone 40mg daily starting in am then taper over 5-7 days defer on abx for now suspect underlying COPD from chronic tobacco use Plan DVT proph - eliquis 2.5mg BID appreciate cardiology eval home next 1-2 days Admission and Anticipated Discharge Date Admission Date: January 17, 2023 Subjective patient feeling MUCH better today can take deeper breaths wheezing/cough improved dyspnea resolved edema improving she was out to the chair during the visit family was visiting she offered no new complaints Review of Systems Review of Systems: gen - no fevers, no chills cv - no chest pain pulm - all symptoms improved GI - no nausea/emesis/pain Physical Exam Physical Exam: gen - morbidly obese, NAD, sitting in chair, looks much better today neck - no JVD mouth - MMM heart - RRR, s1 s2, 1/6 systolic murmur LUSB lungs - wheezing significantly improved today; just scattered wheezes post eriorly; no rales; no increased work of breathing abd - soft NT ND BS+ ext - <1+ edema b/l legs, edema left arm improved, none on right arm; pulses feet 2+ b/l Results & Data Results & Data Vital Signs (Past 12 Hours) Vital Signs Temp Pulse Pulse Pulse Resp BP BP 01/22/23 20:00 36.8 C 92 H 20 136/76 01/22/23 19:36 73 16 01/22/23 14:02 79 01/22/23 15:32 36.7 C 83 18 112/68 01/22/23 14:33 88 16 01/22/23 13:21 01/22/23 11:19 36.7 C 86 18 97/66 L 01/22/23 10:52 86 18 Pulse Ox O2 Del Method 01/22/23 20:00 92 Room Air 01/22/23 19:36 94 Room Air 01/22/23 14:02 01/22/23 15:32 95 Room Air 01/22/23 14:33 96 Room Air 01/22/23 13:21 Room Air 01/22/23 11:19 93 Room Air 01/22/23 10:52 92 Room Air Laboratory Results Laboratory Results - last 24 hr 01/22/23 06:03 Sodium 137 Potassium 4.6 D Chloride 96 L Carbon Dioxide 35 H Anion Gap 6 BUN 25 H Creatinine 0.91 Est Cr Clr Drug Dosing 144.0 Est GFR ( Amer) 94.1 Est GFR (Non-Af Amer) 81.2 BUN/Creatinine Ratio 27.5 H Glucose 123 H Calcium 9.7 PG Care Time/CCT Total # of Minutes Spent Total Time Spent with Patient: Total time spent is greater than 50% in coordination of care (as documented) at patient's floor/unit and/or counseling patient: Coding Level of Care Code 89530 SUB INP/OBS CARE 2/35MIN Diagnoses Acute diastolic CHF (congestive heart failure) I50.31 Depression F32.A Iron deficiency E61.1 History of embolic stroke Z86.73 Morbid obesity E66.01 S/P mitral valve replacement with bioprosthetic valve Z95.3 Left spastic hemiparesis G81.14 Primary hypothyroidism E03.9 Acute bronchitis J20.9
[2023-01-22] MEDS: BUMETANIDE 1 MG TAB PO SCH (21:21)
[2023-01-22] MEDS: METHADONE ORAL SOLN 2 MG/ML PO SCH (21:22)
[2023-01-22] MEDS: MELATONIN 3 MG TAB PO SCH (21:22)
[2023-01-22] MEDS: traZODone HCL 50 MG TAB PO SCH (21:22)
[2023-01-22] MEDS: PATIENT'S OWN CONTROLLED MED 1 PO SCH (21:23)
[2023-01-22] MEDS: clonazePAM 0.5 MG TAB PO SCH (21:25)
[2023-01-23] MEDS: LEVOTHYROXINE SODIUM 75 MCG TABLET PO SCH (06:34)
[2023-01-23] MEDS: ALBUT/IPRATROP 3MG/0.5MG NEB 3 ML VIAL NEB SCH ×4 (06:58→19:27)
[2023-01-23] MEDS: POTASSIUM CHLORIDE CRTAB 20 MEQ TABCR PO SCH ×2 (07:51→21:13)
[2023-01-23] MEDS: guaiFENesin 600 MG TABCR PO SCH ×2 (07:51→21:12)
[2023-01-23] MEDS: APIXABAN 2.5 MG TAB PO SCH ×2 (07:52→21:11)
[2023-01-23] MEDS: BUMETANIDE 1 MG TAB PO SCH ×2 (07:52→21:15)
[2023-01-23] MEDS: predniSONE 20 MG TAB PO SCH (07:52)
[2023-01-23] MEDS: GABAPENTIN 600 MG TAB PO SCH ×3 (07:52→21:13)
[2023-01-23] MEDS: ARIPiprazole 15 MG TAB PO SCH (07:53)
[2023-01-23] MEDS: SERTRALINE HCL 100 MG TABLET PO SCH (07:53)
[2023-01-23] MEDS: ASPIRIN 81 MG ECTAB PO SCH (07:53)
[2023-01-23] MEDS: MAGNESIUM OXIDE 400 MG TAB PO SCH (07:53)
[2023-01-23] MEDS: METOPROLOL TARTRATE 25 MG TAB PO SCH ×2 (07:53→21:12)
[2023-01-23] MEDS: CYANOCOBALAMIN (B-12) 500 MCG TABLET PO SCH (07:53)
[2023-01-23] MEDS: BACLOFEN 10 MG TAB PO SCH ×2 (07:54→21:17)
[2023-01-23 12:14] LABS: BUN Creatinine Ratio 26.6 (10-20); Calcium 9.5 mg/dl (8.6-10.3); Creatinine Clr Calc Pharmacy 139.4 ml/min; Est GFR (African American) 90.5 ml/min; Est GFR (Non-African American) 78.1 ml/min; Potassium 3.9 mmol/L (3.5-5.1)
--- NOTE | 2023-01-23 12:58 | Cardiology Progress Note ---
Date of Service January 23, 2023 Assessment & Plan (1) Acute on chronic heart failure with preserved ejection fraction (HFpEF): (2) Edema: (3) Hypervolemia: (4) S/P mitral valve replacement with bioprosthetic valve: (5) Tobacco dependence: (6) Sleep apnea: Plan ASSESSMENT/PLAN: 1. Heart failure with preserved EF: Based on her description, consistent with heart failure with preserved EF. BNP was negative, although BNP can be artificially low in the setting of obesity. Continue Bumex 2 mg p.o. twice daily. Monitor electrolytes carefully. Strict I's and O's while hospitalized. Daily weights. Less than 2000 mg of sodium daily. Recommend heart failure program. High risk for readmission as she has been admitted several times this year and according to some available records, has demonstrated noncompliance in the past (although this may have been while still abusing IV drugs). SGLT2 inhibitor not initiated due to history of recurrent UTI. 2. 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 Slightly elevated transvalvular gradient in November 2022. SBE prophylaxis. Monitor as an outpatient. 3. Depression: As per primary hospitalist service. 4. Anticoagulation: No cardiac indication for chronic anticoagulation therapy known at this time. According to records, was initiated in July 2022 when discharged from mitral valve replacement hospitalization for DVT prophylaxis. Will defer ongoing use to primary hospitalist service. 5. Tobacco abuse: Smoke cessation. 6. Sleep apnea/somnolence: During visit this morning, she was easily arousable to verbal stimuli but would fall asleep at times. Apnea was witnessed while asleep. Recommend formal sleep study and treatment as appropriate. 7. Disposition: From a cardiac perspective, can be discharged when other issues appropriate for discharge from hospitalist perspective. Patient care communicated with Dr. Taylor of the primary hospitalist service. She met Margie Malone today of the heart failure program. Close follow-up very important given multiple readmissions. Admission and Anticipated Discharge Date Admission Date: January 17, 2023 Subjective Patient seen this morning. She denies shortness of breath. Her edema and cough has improved. She feels sleepy today. She denies chest pain, syncope, or palpitations. She was alone in her hospital room. Physical Exam Physical Exam: Gen.: No acute distress. Somnolent but easily arousable with verbal stimuli. HEENT: Anicteric sclera. Neck: Thick neck. No appreciable JVD. Cardiac: No ventricular heave. Regular. Distant S1-S2. No audible murmur. No rubs or gallops. Pulmonary: Relatively clear to auscultation bilaterally. Abdomen: Soft, nontender, nondistended, with normoactive bowel sounds. No bruits noted. Extremities: 2+ radial pulses bilaterally. 2+ posterior tibialis pulses bilaterally. No significant pitting edema. No cyanosis. Results & Data Vital Signs (Past 12 Hours) Vital Signs Temp Pulse Pulse Pulse Resp BP Pulse Ox 01/23/23 11:11 70 16 94 01/23/23 11:06 36.5 C 73 16 140/80 95 01/23/23 07:00 75 01/23/23 08:00 01/23/23 07:43 36.5 C 79 16 138/79 94 01/23/23 07:00 76 18 92 01/23/23 04:04 36.7 C 70 18 124/72 98 O2 Del Method O2 Flow Rate 01/23/23 11:11 Room Air 01/23/23 11:06 Room Air 01/23/23 07:00 01/23/23 08:00 Room Air 01/23/23 07:43 Room Air 01/23/23 07:00 Room Air 01/23/23 04:04 Nasal Cannula 2 Intake & Output 01/21/23 01/22/23 01/23/23 01/24/23 06:59 06:59 06:59 06:59 Intake Total 600 / 600 300 / 300 865 / 865 Output Total 1102 / 1102 Balance -502 / -502 300 / 300 865 / 865 Weight 376 lb 15.847 oz 376 lb 15.847 oz Laboratory Results Laboratory Results - last 24 hr 01/23/23 11:15 Sodium 137 Potassium 3.9 Chloride 96 L Carbon Dioxide 33 H Anion Gap 8 BUN 25 H Creatinine 0.94 Est Cr Clr Drug Dosing 139.4 Est GFR ( Amer) 90.5 Est GFR (Non-Af Amer) 78.1 BUN/Creatinine Ratio 26.6 H Glucose 111 H Calcium 9.5 Diagnostic Findings Telemetry personally reviewed: Sinus rhythm. No arrhythmia. Labs reviewed and notable for normal potassium, stable renal function. Medications Administered Current Inpatient Medications Acetaminophen (Acetaminophen 325 Mg Tab) 650 mg PO Q4H PRN PRN Reason: Pain or Fever Stop: 02/16/23 22:09 Last Admin: 01/19/23 12:35 Dose: 650 mg Albuterol (Albuterol Hfa 8 Gm Inhaler (Combivent Respimat P&T Subs)) 1 puffs INH TIDR [facility]; Protocol Stop: 02/17/23 06:59 Last Admin: 01/21/23 12:57 Dose: 1 puffs Albuterol (Albut/Ipratrop 3mg/0.5mg Neb 3 Ml Vial) 3 ml NEB QIDR [facility]; Protocol Stop: 02/20/23 18:59 Last Admin: 01/23/23 11:10 Dose: 3 ml Apixaban (Apixaban 2.5 Mg Tab) 2.5 mg PO BID [facility] Stop: 02/17/23 08:59 Last Admin: 01/23/23 07:52 Dose: 2.5 mg Aripiprazole (Aripiprazole 15 Mg Tab) 15 mg PO DAILY [facility] Stop: 02/17/23 08:59 Last Admin: 01/23/23 07:53 Dose: 15 mg Aspirin (Aspirin 81 Mg Ectab) 81 mg PO DAILY [facility] Stop: 02/17/23 08:59 Last Admin: 01/23/23 07:53 Dose: 81 mg Baclofen (Baclofen 10 Mg Tab) 10 mg PO BID [facility] Stop: 02/16/23 22:09 Last Admin: 01/23/23 07:54 Dose: 10 mg Bisacodyl (Bisacodyl 10 Mg Supp) 10 mg [place] DAILY PRN PRN Reason: Constipation Stop: 02/19/23 18:11 Bumetanide (Bumetanide 1 Mg Tab) 2 mg PO BID [facility] Stop: 02/21/23 20:59 Last Admin: 01/23/23 07:52 Dose: 2 mg Clonazepam (Clonazepam 0.5 Mg Tab) 0.5 mg PO HS [facility] Stop: 02/17/23 20:59 Last Admin: 01/22/23 21:25 Dose: 0.5 mg Clonazepam (Clonazepam 0.5 Mg Tab) 0.5 mg PO Q8 PRN PRN Reason: Anxiety or restless Stop: 02/18/23 14:52 Last Admin: 01/19/23 15:05 Dose: 0.5 mg Cyanocobalamin (Cyanocobalamin (B-12) 500 Mcg Tablet) 1,000 mcg PO DAILY [facility] Stop: 02/17/23 08:59 Last Admin: 01/23/23 07:53 Dose: 1,000 mcg Gabapentin (Gabapentin 600 Mg Tab) 600 mg PO TID [facility] Stop: 02/16/23 22:09 Last Admin: 01/23/23 07:52 Dose: 600 mg Guaifenesin (Guaifenesin 600 Mg Tabcr) 1,200 mg PO Q12 [facility] Stop: 02/20/23 20:59 Last Admin: 01/23/23 07:51 Dose: 1,200 mg Ipratropium [place] (Ipratropium Hfa Inhaler (Combivent Respimat P&T Subs)) 1 puffs INH TIDR [facility]; Protocol Stop: 02/17/23 06:59 Last Admin: 01/21/23 12:57 Dose: 1 puffs Levothyroxine Sodium (Levothyroxine Sodium 75 Mcg Tablet) 75 mcg PO DAILYBB [facility] Stop: 02/21/23 06:29 Last Admin: 01/23/23 06:34 Dose: 75 mcg Magnesium Oxide (Magnesium Oxide 400 Mg Tab) 400 mg PO DAILY [facility] Stop: 02/17/23 08:59 Last Admin: 01/23/23 07:53 Dose: 400 mg Melatonin (Melatonin 3 Mg Tab) 3 mg PO [facility] Stop: 02/16/23 22:09 Last Admin: 01/22/23 21:22 Dose: 3 mg Methadone HCl (Methadone Oral Soln 2 Mg/Ml) 72 mg PO [facility] Stop: 02/01/23 20:59 Last Admin: 01/22/23 21:22 Dose: 72 mg Metoprolol Tartrate (Metoprolol Tartrate 25 Mg Tab) 25 mg PO BID [facility] Stop: 02/17/23 08:59 Last Admin: 01/23/23 07:53 Dose: 25 mg Miscellaneous (Remove Nicoderm Patch) 1 each N/A DAILY@0859 [facility] Stop: 02/17/23 08:58 Last Admin: 01/23/23 07:24 Dose: Not Given Nicotine (Nicotine 14 Mg/24 Hr Patch) 7 mg TD QAM PRN PRN Reason: craving Stop: 02/16/23 19:59 Non-Formulary Medication (Patient's Own Controlled Med 1) 1 each PO HS [facility] Stop: 02/01/23 20:59 Last Admin: 01/22/23 21:23 Dose: Not Given Polyethylene Glycol (Polyethylene (Miralax) 17 Gm Pack) 17 gm PO DAILY PRN PRN Reason: Constipation Stop: 02/19/23 14:35 Potassium Chloride (Potassium Chloride Crtab 20 Meq Tabcr) 20 meq PO BID [facility] Stop: 02/21/23 20:59 Last Admin: 01/23/23 07:51 Dose: 20 meq Prednisone (Prednisone 20 Mg Tab) 40 mg PO QAM [facility] Stop: 02/22/23 08:59 Last Admin: 01/23/23 07:52 Dose: 40 mg Sertraline HCl (Sertraline Hcl 100 Mg Tablet) 200 mg PO DAILY [facility] Stop: 02/17/23 08:59 Last Admin: 01/23/23 07:53 Dose: 200 mg Trazodone HCl (Trazodone Hcl 50 Mg Tab) 50 mg PO HS [facility] Stop: 02/17/23 20:59 Last Admin: 01/22/23 21:22 Dose: 50 mg PG Care Time/CCT Total # of Minutes Spent Total Time Spent with Patient: Total time spent is greater than 50% in coordination of care (as documented) at patient's floor/unit and/or counseling patient: Coding Level of Care Code 89603 SUB INP/OBS CARE 3/50MIN Diagnoses Acute on chronic heart failure with preserved ejection fraction (HFpEF) I50.33 Edema R60.9 Hypervolemia E87.70 S/P mitral valve replacement with bioprosthetic valve Z95.3 Tobacco dependence F17.200 Sleep apnea G47.30
--- NOTE | 2023-01-23 21:04 | Hospitalist Progress Note ---
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 on asa/eliquis for secondary prevention (5) Morbid obesity: Plan: BMI >50 staff to attempt a standing scale weight today for better accuracy (6) S/P mitral valve replacement with bioprosthetic valve: Plan: serial echos 2022 with intact valve function (7) Left spastic hemiparesis: Plan: 2nd to prior stroke previous stroke likely was due to left-sided endocarditis remains on aspirin for secondary prophylaxis (8) Primary hypothyroidism: Plan: started on synthroid about 6 weeks ago TSH still high at 7.4 titrated synthroid to 75mcg daily this admission repeat TSH again 6 weeks (9) Acute bronchitis: Plan: cont to improve likely viral in etiology COVID/flu/RSV negative cont PO prednisone 40mg daily taper every 48 hours cont nebs cont pulmonary toilet suspect underlying COPD from chronic tobacco use Plan DVT proph - eliquis 2.5mg BID no discharge today given the concerns from Michelle's mother regarding their home, not enough caregivers in place, etc social work assisting with this complicated situation Michelle aware there is not discharge to home today Admission and Anticipated Discharge Date Admission Date: January 17, 2023 Subjective patient lying in bed during the visit she had a good night she feels well she is eating well has some stuffy nose but cough/wheezing improved no dyspnea pt's mother called into the hospital and spoke with social work mother expressed multiple concerns - it is very, very difficult to get Michelle into the house through the main doorway; she is alone for much of the day while the mom works; very difficult to get Michelle to the methadone clinic on daily basis; etc mother did not feel she could come home at this time they are attempting to arrange caregivers and also equip the house to ensure Michelle can get in safely (ramp, etc) patient aware of the above Review of Systems Review of Systems: cv - no cp, no orthopnea pulm - all symptoms improved; no sputum GI - no pain/nausea - voiding w/o difficulty Physical Exam Physical Exam: gen - morbidly obese, NAD, looks good, affect full today neck - no JVD mouth - MMM heart - RRR, s1 s2, 1/6 systolic murmur LUSB lungs - occasional scattered wheeze b/l; airation fair-good; no rales; no increased work of breathing abd - soft NT ND BS+ ext - trace edema b/l legs, edema left arm at baseline; pulses feet 2+ b/l psych - affect full today Results & Data Results & Data Vital Signs (Past 12 Hours) Vital Signs Temp Pulse Pulse Pulse Resp BP Pulse Ox 01/23/23 20:10 36.6 C 80 18 114/67 93 01/23/23 19:28 52 L 18 92 01/23/23 15:47 36.7 C 84 17 105/57 L 93 01/23/23 15:22 73 18 97 01/23/23 15:15 88 01/23/23 11:11 70 16 94 01/23/23 11:06 36.5 C 73 16 140/80 95 O2 Del Method 01/23/23 20:10 Room Air 01/23/23 19:28 Room Air 01/23/23 15:47 Room Air 01/23/23 15:22 Room Air 01/23/23 15:15 01/23/23 11:11 Room Air 01/23/23 11:06 Room Air Laboratory Results Laboratory Results - last 24 hr 01/23/23 11:15 Sodium 137 Potassium 3.9 Chloride 96 L Carbon Dioxide 33 H Anion Gap 8 BUN 25 H Creatinine 0.94 Est Cr Clr Drug Dosing 139.4 Est GFR ( Amer) 90.5 Est GFR (Non-Af Amer) 78.1 BUN/Creatinine Ratio 26.6 H Glucose 111 H Calcium 9.5 PG Care Time/CCT Total # of Minutes Spent Total Time Spent with Patient: Total time spent is greater than 50% in coordination of care (as documented) at patient's floor/unit and/or counseling patient: Coding Level of Care Code 03696 SUB INP/OBS CARE 2/35MIN Diagnoses Acute diastolic CHF (congestive heart failure) I50.31 Depression F32.A Iron deficiency E61.1 History of embolic stroke Z86.73 Morbid obesity E66.01 S/P mitral valve replacement with bioprosthetic valve Z95.3 Left spastic hemiparesis G81.14 Primary hypothyroidism E03.9 Acute bronchitis J20.9
[2023-01-23] MEDS: clonazePAM 0.5 MG TAB PO SCH (21:10)
[2023-01-23] MEDS: MELATONIN 3 MG TAB PO SCH (21:10)
[2023-01-23] MEDS: METHADONE ORAL SOLN 2 MG/ML PO SCH (21:10)
[2023-01-23] MEDS: traZODone HCL 50 MG TAB PO SCH (21:10)
[2023-01-23] MEDS: PATIENT'S OWN CONTROLLED MED 1 PO SCH (21:10)
[2023-01-24] MEDS: LEVOTHYROXINE SODIUM 75 MCG TABLET PO SCH (05:22)
[2023-01-24] MEDS: ALBUT/IPRATROP 3MG/0.5MG NEB 3 ML VIAL NEB SCH ×4 (06:59→19:45)
[2023-01-24] MEDS: SERTRALINE HCL 100 MG TABLET PO SCH (08:38)
[2023-01-24] MEDS: POTASSIUM CHLORIDE CRTAB 20 MEQ TABCR PO SCH ×2 (08:39→21:18)
[2023-01-24] MEDS: METOPROLOL TARTRATE 25 MG TAB PO SCH ×2 (08:39→21:19)
[2023-01-24] MEDS: ASPIRIN 81 MG ECTAB PO SCH (08:39)
[2023-01-24] MEDS: predniSONE 20 MG TAB PO SCH (08:39)
[2023-01-24] MEDS: MAGNESIUM OXIDE 400 MG TAB PO SCH (08:39)
[2023-01-24] MEDS: BUMETANIDE 1 MG TAB PO SCH ×2 (08:39→21:40)
[2023-01-24] MEDS: CYANOCOBALAMIN (B-12) 500 MCG TABLET PO SCH (08:39)
[2023-01-24] MEDS: BACLOFEN 10 MG TAB PO SCH ×2 (08:39→21:35)
[2023-01-24] MEDS: GABAPENTIN 600 MG TAB PO SCH ×3 (08:39→21:19)
[2023-01-24] MEDS: ARIPiprazole 15 MG TAB PO SCH (08:39)
[2023-01-24] MEDS: guaiFENesin 600 MG TABCR PO SCH ×2 (08:39→21:20)
[2023-01-24] MEDS: APIXABAN 2.5 MG TAB PO SCH ×2 (08:40→21:22)
--- NOTE | 2023-01-24 10:52 | Cardiology Progress Note ---
Date of Service January 24, 2023 Assessment & Plan (1) Acute on chronic heart failure with preserved ejection fraction (HFpEF): (2) Edema: (3) Hypervolemia: (4) S/P mitral valve replacement with bioprosthetic valve: (5) Tobacco dependence: (6) Sleep apnea: Plan ASSESSMENT/PLAN: 1. Heart failure with preserved EF: Based on her description, consistent with heart failure with preserved EF. BNP was negative, although BNP can be artificially low in the setting of obesity. She has been stable on oral Bumex for the past 2 days, but did refuse a dose according to EMR. Continue Bumex 2 mg p.o. twice daily. Monitor electrolytes carefully. Strict I's and O's while hospitalized. Daily weights. Less than 2000 mg of sodium daily. Recommend heart failure program. High risk for readmission as she has been admitted several times this year and according to some available records, has demonstrated noncompliance in the past (although this may have been while still abusing IV drugs). SGLT2 inhibitor not initiated due to history of recurrent UTI. 2. 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 Slightly elevated transvalvular gradient in November 2022. SBE prophylaxis. Monitor as an outpatient. 3. Depression: As per primary hospitalist service. 4. Anticoagulation: No cardiac indication for chronic anticoagulation therapy known at this time. According to records, was initiated in July 2022 when discharged from mitral valve replacement hospitalization for DVT prophylaxis. Will defer ongoing use to primary hospitalist service. 5. Tobacco abuse: Smoke cessation. 6. Sleep apnea/somnolence: Next sleep apnea earlier this hospital stay while at the bedside. Recommend formal evaluation as an outpatient and treatment as appropriate. 7. Disposition: From a cardiac perspective, can be discharged when other issues appropriate for discharge from hospitalist perspective. Cardiology will sign off at this time. Please call on-call silverlight developer for any questions or concerns. Patient care communicated with Dr. Taylor of the primary hospitalist service. Follow-up in the heart failure program next week. Admission and Anticipated Discharge Date Admission Date: January 17, 2023 Subjective Patient was seen this morning. She denies shortness of breath, chest pain, syncope, near syncope, or bleeding. She has not noted any worsening edema and overall feels well. She states that she is likely going home in the next couple of days when arrangements are made at home for her. She was alone in her hospital room. Physical Exam Physical Exam: Gen.: No acute distress. Alert. HEENT: Anicteric sclera. Neck: Thick neck. No appreciable JVD. Cardiac: No ventricular heave. Regular. Distant S1-S2. No audible murmur. No rubs or gallops. Pulmonary: Clear to auscultation bilaterally. Abdomen: Soft, nontender, nondistended, with normoactive bowel sounds. No bruits noted. Extremities: 2+ radial pulses bilaterally. 2+ posterior tibialis pulses bilaterally. No significant pitting edema. No cyanosis. Results & Data Vital Signs (Past 12 Hours) Vital Signs Temp Pulse Resp BP Pulse Ox O2 Del Method O2 Flow Rate 01/24/23 08:13 36.3 C L 69 20 122/72 96 Room Air 01/24/23 06:59 67 18 91 Room Air 01/24/23 04:58 36.9 C 67 18 117/72 93 Nasal Cannula 2 01/23/23 23:28 36.9 C 70 18 97/60 L 96 Nasal Cannula 2 Intake & Output 01/22/23 01/23/23 01/24/23 01/25/23 06:59 06:59 06:59 06:59 Intake Total 300 / 300 865 / 865 Output Total 1400 / 1400 Balance 300 / 300 865 / 865 -1400 / -1400 Weight 376 lb 15.847 oz 367 lb 15.224 oz Laboratory Results Laboratory Results - last 24 hr 01/23/23 11:15 Sodium 137 Potassium 3.9 Chloride 96 L Carbon Dioxide 33 H Anion Gap 8 BUN 25 H Creatinine 0.94 Est Cr Clr Drug Dosing 139.4 Est GFR ( Amer) 90.5 Est GFR (Non-Af Amer) 78.1 BUN/Creatinine Ratio 26.6 H Glucose 111 H Calcium 9.5 Diagnostic Findings Telemetry personally reviewed: Sinus rhythm. No arrhythmia. Hospitalist note from 01/23/2023 reviewed. Medications Administered Current Inpatient Medications Acetaminophen (Acetaminophen 325 Mg Tab) 650 mg PO Q4H PRN PRN Reason: Pain or Fever Stop: 02/16/23 22:09 Last Admin: 01/19/23 12:35 Dose: 650 mg Albuterol (Albuterol Hfa 8 Gm Inhaler (Combivent Respimat P&T Subs)) 1 puffs INH TIDR [facility]; Protocol Stop: 02/17/23 06:59 Last Admin: 01/21/23 12:57 Dose: 1 puffs Albuterol (Albut/Ipratrop 3mg/0.5mg Neb 3 Ml Vial) 3 ml NEB QIDR [facility]; Protocol Stop: 02/20/23 18:59 Last Admin: 01/24/23 06:59 Dose: 3 ml Apixaban (Apixaban 2.5 Mg Tab) 2.5 mg PO BID [facility] Stop: 02/17/23 08:59 Last Admin: 01/24/23 08:40 Dose: 2.5 mg Aripiprazole (Aripiprazole 15 Mg Tab) 15 mg PO DAILY [facility] Stop: 02/17/23 08:59 Last Admin: 01/24/23 08:39 Dose: 15 mg Aspirin (Aspirin 81 Mg Ectab) 81 mg PO DAILY [facility] Stop: 02/17/23 08:59 Last Admin: 01/24/23 08:39 Dose: 81 mg Baclofen (Baclofen 10 Mg Tab) 10 mg PO BID [facility] Stop: 02/16/23 22:09 Last Admin: 01/24/23 08:39 Dose: 10 mg Bisacodyl (Bisacodyl 10 Mg Supp) 10 mg UT DAILY PRN PRN Reason: Constipation Stop: 02/19/23 18:11 Bumetanide (Bumetanide 1 Mg Tab) 2 mg PO BID [facility] Stop: 02/21/23 20:59 Last Admin: 01/24/23 08:39 Dose: 2 mg Clonazepam (Clonazepam 0.5 Mg Tab) 0.5 mg PO HS [facility] Stop: 02/17/23 20:59 Last Admin: 01/23/23 21:10 Dose: 0.5 mg Clonazepam (Clonazepam 0.5 Mg Tab) 0.5 mg PO Q8 PRN PRN Reason: Anxiety or restless Stop: 02/18/23 14:52 Last Admin: 01/19/23 15:05 Dose: 0.5 mg Cyanocobalamin (Cyanocobalamin (B-12) 500 Mcg Tablet) 1,000 mcg PO DAILY [facility] Stop: 02/17/23 08:59 Last Admin: 01/24/23 08:39 Dose: 1,000 mcg Gabapentin (Gabapentin 600 Mg Tab) 600 mg PO TID [facility] Stop: 02/16/23 22:09 Last Admin: 01/24/23 08:39 Dose: 600 mg Guaifenesin (Guaifenesin 600 Mg Tabcr) 1,200 mg PO Q12 [facility] Stop: 02/20/23 20:59 Last Admin: 01/24/23 08:39 Dose: 1,200 mg Ipratropium [place] (Ipratropium Hfa Inhaler (Combivent Respimat P&T Subs)) 1 puffs INH TIDR [facility]; Protocol Stop: 02/17/23 06:59 Last Admin: 01/21/23 12:57 Dose: 1 puffs Levothyroxine Sodium (Levothyroxine Sodium 75 Mcg Tablet) 75 mcg PO DAILYBB [facility] Stop: 02/21/23 06:29 Last Admin: 01/24/23 05:22 Dose: 75 mcg Magnesium Oxide (Magnesium Oxide 400 Mg Tab) 400 mg PO DAILY [facility] Stop: 02/17/23 08:59 Last Admin: 01/24/23 08:39 Dose: 400 mg Melatonin (Melatonin 3 Mg Tab) 3 mg PO [facility] Stop: 02/16/23 22:09 Last Admin: 01/23/23 21:10 Dose: 3 mg Methadone HCl (Methadone Oral Soln 2 Mg/Ml) 72 mg PO [facility] Stop: 02/01/23 20:59 Last Admin: 01/23/23 21:10 Dose: 72 mg Metoprolol Tartrate (Metoprolol Tartrate 25 Mg Tab) 25 mg PO BID [facility] Stop: 02/17/23 08:59 Last Admin: 01/24/23 08:39 Dose: 25 mg Miscellaneous (Remove Nicoderm Patch) 1 each N/A DAILY@0859 [facility] Stop: 02/17/23 08:58 Last Admin: 01/24/23 08:40 Dose: 1 each Nicotine (Nicotine 14 Mg/24 Hr Patch) 7 mg TD QAM PRN PRN Reason: craving Stop: 02/16/23 19:59 Non-Formulary Medication (Patient's Own Controlled Med 1) 1 each PO HS [facility] Stop: 02/01/23 20:59 Last Admin: 01/23/23 21:10 Dose: 1 btl Polyethylene Glycol (Polyethylene (Miralax) 17 Gm Pack) 17 gm PO DAILY PRN PRN Reason: Constipation Stop: 02/19/23 14:35 Last Admin: 01/24/23 05:27 Dose: 17 gm Potassium Chloride (Potassium Chloride Crtab 20 Meq Tabcr) 20 meq PO BID [facility] Stop: 02/21/23 20:59 Last Admin: 01/24/23 08:39 Dose: 20 meq Prednisone (Prednisone 20 Mg Tab) 40 mg PO QAM [facility] Stop: 02/22/23 08:59 Last Admin: 01/24/23 08:39 Dose: 40 mg Sertraline HCl (Sertraline Hcl 100 Mg Tablet) 200 mg PO DAILY [facility] Stop: 02/17/23 08:59 Last Admin: 01/24/23 08:38 Dose: 200 mg Trazodone HCl (Trazodone Hcl 50 Mg Tab) 50 mg PO HS [facility] Stop: 02/17/23 20:59 Last Admin: 01/23/23 21:10 Dose: 50 mg PG Care Time/CCT Total # of Minutes Spent Total Time Spent with Patient: Total time spent is greater than 50% in coordination of care (as documented) at patient's floor/unit and/or counseling patient: Coding Level of Care Code 20487 SUB INP/OBS CARE 2/35MIN Diagnoses Acute on chronic heart failure with preserved ejection fraction (HFpEF) I50.33 Edema R60.9 Hypervolemia E87.70 S/P mitral valve replacement with bioprosthetic valve Z95.3 Tobacco dependence F17.200 Sleep apnea G47.30
[2023-01-24] MEDS: clonazePAM 0.5 MG TAB PO PRN (12:37)
--- NOTE | 2023-01-24 21:07 | Hospitalist Progress Note ---
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 with resulting left sided hemiparesis on asa/eliquis for secondary prevention (5) Morbid obesity: Plan: BMI >50 (6) S/P mitral valve replacement with bioprosthetic valve: Plan: serial echos in 2022 with intact valve function (7) Left spastic hemiparesis: Plan: 2nd to prior stroke previous stroke likely was due to mitral valve endocarditis remains on aspirin for secondary prophylaxis (8) Primary hypothyroidism: Plan: started on synthroid about 6 weeks ago TSH still high at 7.4 titrated synthroid to 75mcg daily this admission repeat TSH again 6 weeks (9) Acute bronchitis: Plan: cont to improve likely viral in etiology COVID/flu/RSV negative cont PO prednisone 40mg today and tomorrow, then wean to 30mg after that cont nebs cont pulmonary toilet add tessalon pearles cont mucinex suspect underlying COPD from chronic tobacco use Plan DVT proph - eliquis 2.5mg BID modifications to Michelle's home to allow safe passage into the house apparently will happen tomorrow once those structural changes occur she can d/c home Admission and Anticipated Discharge Date Admission Date: January 17, 2023 Subjective pt states that someone is coming to her home tomorrow to build a structure to allow her to get into the main door into the home she is hoping to be home by Friday? c/o cough but no dyspnea mild wheeze no dyspnea eating well denies any other complaints Review of Systems Review of Systems: gen - no fevers cv - no cp pulm - no dyspnea GI - no abd pain Physical Exam Physical Exam: gen - morbidly obese, NAD neck - no JVD mouth - MMM heart - RRR, s1 s2, 1/6 systolic murmur LUSB lungs - scattered wheezes b/l; airation wnl; no rales; no increased work of breathing abd - soft NT ND BS+ ext - trace edema b/l legs, trace edema left arm at baseline; pulses feet 2+ b/l Results & Data Results & Data Vital Signs (Past 12 Hours) Vital Signs Temp Pulse Pulse Pulse Resp BP Pulse Ox 01/24/23 19:47 36.7 C 73 20 107/69 97 01/24/23 19:45 80 18 93 01/24/23 18:00 83 01/24/23 16:00 72 01/24/23 14:10 83 01/24/23 15:22 77 16 93 01/24/23 14:37 36.7 C 79 18 118/68 95 01/24/23 11:20 72 18 93 O2 Del Method 01/24/23 19:47 Room Air 01/24/23 19:45 Room Air 01/24/23 18:00 01/24/23 16:00 01/24/23 14:10 01/24/23 15:22 Room Air 01/24/23 14:37 Room Air 01/24/23 11:20 Room Air PG Care Time/CCT Total # of Minutes Spent Total Time Spent with Patient: Total time spent is greater than 50% in coordination of care (as documented) at patient's floor/unit and/or counseling patient: Coding Level of Care Code 92198 SUB INP/OBS CARE 25MIN Diagnoses Acute diastolic CHF (congestive heart failure) I50.31 Depression F32.A Iron deficiency E61.1 History of embolic stroke Z86.73 Morbid obesity E66.01 S/P mitral valve replacement with bioprosthetic valve Z95.3 Left spastic hemiparesis G81.14 Primary hypothyroidism E03.9 Acute bronchitis J20.9
[2023-01-24] MEDS: BENZONATATE 100 MG CAPSULE PO SCH (21:18)
[2023-01-24] MEDS: clonazePAM 0.5 MG TAB PO SCH (21:18)
[2023-01-24] MEDS: MELATONIN 3 MG TAB PO SCH (21:18)
[2023-01-24] MEDS: traZODone HCL 50 MG TAB PO SCH (21:18)
[2023-01-24] MEDS: METHADONE ORAL SOLN 2 MG/ML PO SCH (21:42)
[2023-01-24] MEDS: PATIENT'S OWN CONTROLLED MED 2 PO SCH (21:42)
[2023-01-25] MEDS: LEVOTHYROXINE SODIUM 75 MCG TABLET PO SCH (05:51)
[2023-01-25] MEDS: ALBUT/IPRATROP 3MG/0.5MG NEB 3 ML VIAL NEB SCH ×4 (07:15→19:18)
[2023-01-25 08:14] LABS: BUN Creatinine Ratio 25.5 (10-20); Calcium 9.6 mg/dl (8.6-10.3); Est GFR (African American) 90.5 ml/min; Est GFR (Non-African American) 78.1 ml/min; Potassium 3.4 mmol/L (3.5-5.1)
[2023-01-25] MEDS: predniSONE 20 MG TAB PO SCH (09:15)
[2023-01-25] MEDS: SERTRALINE HCL 100 MG TABLET PO SCH (09:15)
[2023-01-25] MEDS: GABAPENTIN 600 MG TAB PO SCH ×3 (09:15→20:30)
[2023-01-25] MEDS: APIXABAN 2.5 MG TAB PO SCH ×2 (09:15→20:29)
[2023-01-25] MEDS: ARIPiprazole 15 MG TAB PO SCH (09:16)
[2023-01-25] MEDS: POTASSIUM CHLORIDE CRTAB 20 MEQ TABCR PO SCH ×2 (09:16→20:32)
[2023-01-25] MEDS: BUMETANIDE 1 MG TAB PO SCH ×2 (09:16→18:33)
[2023-01-25] MEDS: guaiFENesin 600 MG TABCR PO SCH ×2 (09:16→20:31)
[2023-01-25] MEDS: METOPROLOL TARTRATE 25 MG TAB PO SCH ×2 (09:16→20:29)
[2023-01-25] MEDS: ASPIRIN 81 MG ECTAB PO SCH (09:16)
[2023-01-25] MEDS: CYANOCOBALAMIN (B-12) 500 MCG TABLET PO SCH (09:17)
[2023-01-25] MEDS: MAGNESIUM OXIDE 400 MG TAB PO SCH (09:17)
[2023-01-25] MEDS: BENZONATATE 100 MG CAPSULE PO SCH ×3 (09:20→20:29)
[2023-01-25] MEDS: BACLOFEN 10 MG TAB PO SCH ×2 (10:57→20:28)
[2023-01-25] MEDS: clonazePAM 0.5 MG TAB PO PRN (14:23)
--- NOTE | 2023-01-25 19:43 | Hospitalist Progress Note ---
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 with resulting left sided hemiparesis on asa/eliquis for secondary prevention (5) Morbid obesity: Plan: BMI >50 (6) S/P mitral valve replacement with bioprosthetic valve: Plan: serial echos in 2022 with intact valve function (7) Left spastic hemiparesis: Plan: 2nd to prior stroke previous stroke likely was due to mitral valve endocarditis remains on aspirin for secondary prophylaxis (8) Primary hypothyroidism: Plan: started on synthroid about 6 weeks ago TSH still high at 7.4 this admission titrated synthroid to 75mcg daily repeat TSH again 6 weeks (9) Acute bronchitis: Plan: cont to improve likely viral in etiology COVID/flu/RSV negative cont PO prednisone - 40mg today, then wean to 30mg tomorrow wean every 3 days cont nebs cont pulmonary toilet cont tessalon pearles cont mucinex suspect underlying COPD from chronic tobacco use would benefit from PFTs she also has elevated eosinophils - eosinophilic asthma? other etiology? Plan DVT proph - eliquis 2.5mg BID modifications to Michelle's home to allow safe passage into the house did occur today she should be ready for d/c home on Friday left message for Michelle's mother on her voicemail this evening Admission and Anticipated Discharge Date Admission Date: January 17, 2023 Subjective pt with mild cough/wheeze but no worse than prior eating well sat in chair today was able to get on the standing scale for a weight making copious urine Michelle confirms that the work done on the front steps into her mother's home was completed today and that her mom can bring her home tomorrow no other new issues Review of Systems Review of Systems: pulm - no dyspnea at rest GI - no N/V CV - no chest pain Physical Exam Physical Exam: gen - morbidly obese, NAD, laying comfortably in bed neck - no JVD mouth - MMM heart - RRR, s1 s2, 1/6 systolic murmur LUSB lungs - CTA b/l today; no wheezes or rales today; no increased work of breathing abd - soft NT ND BS+ ext - trace edema b/l legs, trace edema left arm at baseline; pulses feet 2+ b/l psych - a/o x 3 Results & Data Results & Data Vital Signs (Past 12 Hours) Vital Signs Temp Pulse Pulse Pulse Resp BP Pulse Ox 01/25/23 16:10 80 01/25/23 15:49 36.8 C 83 19 135/73 95 01/25/23 15:11 83 16 95 01/25/23 11:46 36.7 C 71 19 114/70 95 01/25/23 11:03 74 18 95 01/25/23 08:00 68 01/25/23 08:04 36.6 C 72 18 145/92 H 92 O2 Del Method O2 Flow Rate 01/25/23 16:10 01/25/23 15:49 Room Air 01/25/23 15:11 Room Air 01/25/23 11:46 Nasal Cannula 1 01/25/23 11:03 Room Air 01/25/23 08:00 01/25/23 08:04 Room Air Laboratory Results Laboratory Results 01/25/23 06:57 Sodium 136 Potassium 3.4 L Chloride 96 L Carbon Dioxide 34 H Anion Gap 6 BUN 24 H Creatinine 0.94 Est Cr Clr Drug Dosing 138.0 Est GFR ( Amer) 90.5 Est GFR (Non-Af Amer) 78.1 BUN/Creatinine Ratio 25.5 H Glucose 77 Calcium 9.6 PG Care Time/CCT Total # of Minutes Spent Total Time Spent with Patient: Total time spent is greater than 50% in coordination of care (as documented) at patient's floor/unit and/or counseling patient: Coding Level of Care Code 58324 SUB INP/OBS CARE 2/35MIN Diagnoses Acute diastolic CHF (congestive heart failure) I50.31 Depression F32.A Iron deficiency E61.1 History of embolic stroke Z86.73 Morbid obesity E66.01 S/P mitral valve replacement with bioprosthetic valve Z95.3 Left spastic hemiparesis G81.14 Primary hypothyroidism E03.9 Acute bronchitis J20.9
[2023-01-25] MEDS: MELATONIN 3 MG TAB PO SCH (20:28)
[2023-01-25] MEDS: clonazePAM 0.5 MG TAB PO SCH (20:28)
[2023-01-25] MEDS: METHADONE ORAL SOLN 2 MG/ML PO SCH (20:28)
[2023-01-25] MEDS: traZODone HCL 50 MG TAB PO SCH (20:28)
[2023-01-25] MEDS: PATIENT'S OWN CONTROLLED MED 2 PO SCH (20:32)
[2023-01-26] MEDS: LEVOTHYROXINE SODIUM 75 MCG TABLET PO SCH (06:15)
[2023-01-26 07:39] LABS: Hematocrit (blood only) 31.2 % (37.0-47.0); Hemoglobin 8.9 g/dl (12.0-16.0); Mean Corpuscular Hgb Conc 28.5 g/dL (32.0-36.0); Mean Platelet Volume 9.2 fL (9.4-12.4); Platelet Count 486 K/uL (130-400); RDW Coefficient of Variation 14.6 % (11.5-14.5); RDW Standard Deviation 40.1 fL (36.4-46.3); Red Blood Count 4.05 M/uL (4.20-5.40); White Blood Count 10.86 K/ul (4.8-10.8)
[2023-01-26] MEDS: ALBUT/IPRATROP 3MG/0.5MG NEB 3 ML VIAL NEB SCH ×2 (07:41→11:42)
[2023-01-26 07:55] LABS: BUN Creatinine Ratio 26.6 (10-20); Calcium 8.9 mg/dl (8.6-10.3); Creatinine Clr Calc Pharmacy 142.7 ml/min; Est GFR (African American) 90.5 ml/min; Est GFR (Non-African American) 78.1 ml/min; Magnesium 2.2 mg/dl (1.7-2.4); Potassium 3.9 mmol/L (3.5-5.1)
[2023-01-26] MEDS: CYANOCOBALAMIN (B-12) 500 MCG TABLET PO SCH (08:48)
[2023-01-26] MEDS: BUMETANIDE 1 MG TAB PO SCH (08:49)
[2023-01-26] MEDS: SERTRALINE HCL 100 MG TABLET PO SCH (08:49)
[2023-01-26] MEDS: GABAPENTIN 600 MG TAB PO SCH (08:49)
[2023-01-26] MEDS: ARIPiprazole 15 MG TAB PO SCH (08:49)
[2023-01-26] MEDS: BENZONATATE 100 MG CAPSULE PO SCH (08:49)
[2023-01-26] MEDS: METOPROLOL TARTRATE 25 MG TAB PO SCH (08:49)
[2023-01-26] MEDS: APIXABAN 2.5 MG TAB PO SCH (08:49)
[2023-01-26] MEDS: guaiFENesin 600 MG TABCR PO SCH (08:50)
[2023-01-26] MEDS: ASPIRIN 81 MG ECTAB PO SCH (08:50)
[2023-01-26] MEDS: POTASSIUM CHLORIDE CRTAB 20 MEQ TABCR PO SCH (08:50)
[2023-01-26] MEDS: MAGNESIUM OXIDE 400 MG TAB PO SCH (08:50)
[2023-01-26] MEDS ORDERED: predniSONE 10 MG TABLET PO SCH (09:00)
[2023-01-26] MEDS: BACLOFEN 10 MG TAB PO SCH (11:38)
--- NOTE | 2023-01-26 13:32 | Discharge Summary ---
Date of Service January 26, 2023 Discharge Exam gen - morbidly obese, NAD, laying comfortably in bed neck - no JVD mouth - MMM heart - RRR, s1 s2, 1/6 systolic murmur LUSB lungs - CTA b/l today; no wheezes or rales today; no increased work of breathing abd - soft NT ND BS+ ext - trace edema b/l legs, trace edema left arm at baseline; pulses feet 2+ b/l psych - a/o x 3 Discharge Data Allergies Allergy/AdvReac Type Severity Reaction Status Date / Time sulfamethoxazole Allergy Severe Anaphylaxis Verified 12/16/22 17:56 [From Bactrim] trimethoprim [From Bactrim] Allergy Severe Anaphylaxis Verified 12/16/22 17:56 atorvastatin AdvReac Intermediate Muscle Pain Verified 12/16/22 17:56 Consultations 01/17/23 19:47 Consult Behavioral Health Liaison Routine 01/21/23 09:26 Consult Cardiology Routine Hospital Course (1) Acute diastolic CHF (congestive heart failure): decompensation resolved appreciate [facility] assistance cont bumex 2mg BID cont salt restriction BMP today wnl replace mildly low K patient will establish care with CHF clinic - Ms Emy Malone - post-d/c cont daily standing scale weights, etc (2) Depression: cont all previous outpatient meds (3) Iron deficiency: s/p venofer last admission H/H stable has known h/o thalaseemia as well repeat cbc am (4) 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 on asa/eliquis for secondary prevention (5) Morbid obesity: BMI >50 (6) S/P mitral valve replacement with bioprosthetic valve: serial echos in 2022 with intact valve function (7) Left spastic hemiparesis: 2nd to prior stroke previous stroke likely was due to mitral valve endocarditis remains on aspirin for secondary prophylaxis (8) Primary hypothyroidism: started on synthroid about 6 weeks ago TSH still high at 7.4 this admission titrated synthroid to 75mcg daily repeat TSH again 6 weeks (9) Acute bronchitis: cont to improve likely viral in etiology COVID/flu/RSV negative cont PO prednisone - 40mg today, then wean to 30mg tomorrow wean every 3 days cont nebs cont pulmonary toilet cont tessalon pearles cont mucinex suspect underlying COPD from chronic tobacco use would benefit from PFTs she also has elevated eosinophils - eosinophilic asthma? other etiology? Plan DVT proph - eliquis 2.5mg BID modifications to Michelle's home to allow safe passage into the house did occur today she should be ready for d/c home on Friday left message for Michelle's mother on her voicemail this evening Home Health Attestation I certify that this patient is under my care and that I, or a physicians housing assistant property manager working with me, had a face to-face encounter that meets the home health [id number] encounter requirements with this patient. The encounter with the patient was in whole, or in part, for the following medical condition, which is the primary reason for home health care (list medical condition): I certify that, based on my findings, the following services are medically necessary home health services: My clinical findings support the need for the above services because: Further, I certify that my clinical findings support that this patient is homebound (i.e. absences from home require considerable and taxing effort and are for medical reasons or mandaeism services or infrequently or of short dur ation when for other reasons) because: Certification for Home Health Services: Based on the above findings, I certify that this patient is confined to the home and needs intermittent long term care, physical therapy and/or speech therapy or continues to need occupational therapy. The patient is under my care, and I have initiated the establishment of the plan of care. This patient will be followed by a physician who will periodically review the plan of care. Discharge Plan Discharge Items Patient Disposition: Home - Home Health Services Reason For Visit: EDEMA/FLUID RETENTION Discharge Diagnosis: 1. edema/fluid retention - due to "diastolic dysfunction" or "diastolic congestive heart failure" ("stiff heart") - much improved 2. acute bronchitis 3. hypothyroidism 4. asthma 5. suspected sleep apnea Activity: Resume your previous activity Non-emergency contact: Primary Care Provider Call non-emergency contact if: you have any medication questions, your symptoms worsen and you have a fever Follow-up/Referrals: Stacey Arce MD [Primary Care Provider] - 02/04/23 10:20 am (1 week) Margie Malone PA-C [Physician Promotional Model] - 01/28/23 2:00 pm (Congestive Heart Failure Program Appointment Information Early follow up is essential to managing your heart failure. An appointment has been scheduled for you with the [facility] within 7 days of discharge. Anticipate this visit to be 30-60 minutes long. Please expect a brim curler phone call from one of our nurses approximately 48 hours from discharge. They will also be placing an order for lab work to be completed 1-2 days prior to your heart failure follow up appointment. Please be sure to have this done so we can go over the results when you come in. Office Location The cardiology office building is located in front of the hospital at [address] Bring the following with you to your follow-up doctor appointments: Please bring your daily weight log any discharge paperwork all of your medication bottles with you to this visit. ) Diet: Low Sodium (2gm) Fluids: 1800ml (7 cups) Addtl Attending Provider Instructions: Michelle, You were hospitalized for fluid retention and bronchitis. The fluid retention improved with IV diuretics. [facility] saw you in consult and did diagnose you with diastolic dysfunction or diastolic congestive heart failure (CHF). Various things can cause the fluid retention when you have diastolic dysfunction including too much salt in the diet, too much fluid, high blood pressure, untreated sleep apnea, and a host of other factors. The bronchitis was treated with IV then oral steroids along with breathing treatments. About 90-95% of bronchitis cases are caused by viruses. We found that your thyroid levels are improving but you still need a bit more thyroid medication. Therefore, we increased your thyroid medication from 50mcg to 75mcg every day. When the thyroid levels are off this can contribute to fluid retention as well. Recommendations - 1. discontinue your furosemide. 2. change to bumetanide diuretic - 2mg every morning and 2mg each afternoon. Take your first dose upon arrival home today. 3. check your weight every morning on the same scale. Call your doctors right away if you are seeing fluid weight gains (see below). 4. for bronchitis - * prednisone taper - start this tomorrow, 01/27/23; remember that prednisone can sometimes cause fluid retention * benzonatate pearles - 100mg every 8 hours as needed for cough * for the next 4-5 days please use the nebulizer treatments I have prescribed (albuterol-ipratropium bromide) -- take 1 treatment 4 times a day * after 4-5 days you can start to use these neb treatments on an as needed basis * know that these neb treatments are the SAME thing as Combivent inhaler - thus, do not take both at the same time * continue your flutter valve that we gave you for a few more days * you can also take [id number] Mucinex up to 1200mg twice daily; this helps with cough and congestion 5. continue your oxygen 2 liters any time you sleep. 6. we have increased your thyroid pill to 75mcg daily. Start this tomorrow morning. You will need a repeat blood test for your thyroid in about 4-6 weeks. 7. limit total salt intake to no more than 2000mg in a 24 hour period; see handouts. 8. limit total fluid intake to no more than 1800-2000ml in a 24 hour period. 9. ask your family doctor about a sleep study to diagnose and treat the sleep apnea. 10. ask you family doctor about a referral to see a lung doctor (teacher aide) due to you long-standing asthma. Follow-up - see separate section Return to [facility] if - * you have fevers over 100 degrees * you have worsening shortness of breath * you have severe fluid weight gain * any other concerns It was our pleasure to care for you! -Dr Taylor Addtl Ton Container Filler Provider Instructions: Call your cloth doffer or primary care doctor if any of the following symptoms or problems start or get worse: * Shortness of breath or difficulty breathing * Wake up at night short of breath * Chest pain * Cough * Swelling of your hands, feet, or legs * More fatigued or tired with your normal activity * Palpitations - sudden fast heart beats WEIGHT * Weigh yourself every morning after using the bathroom. * Use the same scale. * Wear the same amount of clothing. * Write your weight down on a chart. * Call your doctor if you gain more than 3 pounds in 1-2 days. This is usually the first sign of fluid retention from heart problems. MEDICATIONS * Use this discharge instruction sheet for medication instructions. * Take your medications at the time your doctor ordered. * Do not skip a dose of your medicines. * If you miss a dose of medicine, take it as soon as possible, but DO NOT DOUBLE A DOSE. * Read your medicine information when you get home. * Know all of the side effects of your medicine. If in doubt, ask your pharmacist * Call your Primary Care doctor's office if you have any side effects. * Be sure all of your doctors know what medicine and herbs you take (including cold, flu, and herbal medicine). Take the following with you to your follow-up doctor appointments: * Weight Chart * Medication List * List of questions Do not drink excessive alcohol, beer or wine. Pending Studies at Discharge: No Stand-Alone Forms: [facility], Smoking Cessation Medications and DC Order Prescriptions: New ipratropium-albuterol 0.5 mg-3 mg(2.5 mg base)/3 mL Solution For Nebulization 3 ml NEB Q6H PRN (Reason: cough/wheezing/shortness of breath) Qty: 1 0RF Rx Instructions: dx: J45.901 benzonatate 100 mg Capsule 100 mg PO TID PRN (Reason: cough) Qty: 20 0RF bumetanide 2 mg tablet 2 mg PO BID Qty: 60 2RF Rx Instructions: take at 7am and 4pm. prednisone 10 mg tablet 10 mg PO DIRECTED Qty: 12 0RF Rx Instructions: start 01/27/23, take w/ food. 3 tabs PO QD x 2 days; 2 tabs PO QD x 2 days; 1 tab PO QD x 2 days. (DME) Oxygen Home Liters Per Minute See Rx Instructions .ROUTE .MEDSUPPLY Qty: 1 0RF Rx Instructions: 2 liters NC O2 with sleep. Continued (DME) Lift Chair Misc See Rx Instructions .Route Qty: 1 0RF Rx Instructions: As directed (DME) miscellaneous medical [facility] See Rx Instructions .ROUTE .MEDSUPPLY Qty: 1 0RF Rx Instructions: Left wrist splint Dx: lt spastic hemiparesis metoprolol tartrate 50 mg tablet 25 mg PO BID Qty: 30 2RF Flovent Diskus 100 mcg/actuation blister with device 1 inh inhalation BID Qty: 60 2RF trazodone 50 mg tablet 50 mg PO HS Qty: 30 2RF sertraline 100 mg tablet 200 mg PO DAILY Qty: 60 2RF epinephrine 0.3 mg/0.3 mL auto-injector 0.3 mg IM .COMPLEX PRN (Reason: anaphylaxis) Qty: 2 1RF Rx Instructions: 0.3 mg intramuscularly once but repeat dose x1 in 5-15min if needed PRN; After first injection, proceed to the ER clonazepam 0.5 mg tablet 0.5 mg PO HS Qty: 30 0RF aripiprazole [Abilify] 15 mg tablet 15 mg PO DAILY Qty: 30 0RF (DME) Wheelchair (Manual) Device See Rx Instructions .Route Qty: 1 0RF Rx Instructions: As [id number] Z86.73 (DME) Hospital Bed Misc See Rx Instructions .Route Qty: 1 0RF Rx Instructions: As directed G81.9, I63.411 (DME) Manual Wheelchair Device See Rx Instructions .Route Qty: 1 0RF Rx Instructions: [address] drive WC please G81.9 ketoconazole 2 % cream 1 applic topical BID 28 Days Qty: 15 0RF methadone 10 mg Tablet 72 mg PO DAILY melatonin 3 mg Tablet 3 mg PO HS aspirin 81 mg Tablet,Chewable 81 mg PO DAILY multivitamin with minerals Tablet 1 tab PO DAILY gabapentin 600 mg tablet 600 mg PO TID nicotine 7 mg/24 hr Patch 24 Hour 7 mg transdermal QAM Qty: 30 0RF cyanocobalamin (vitamin B-12) 1,000 mcg tablet 1,000 mcg PO DAILY Qty: 90 1RF Rx Instructions: purchase timp-[id number]. baclofen 10 mg tablet 10 mg PO BID Qty: 60 0RF potassium chloride 20 mEq tablet extended release 20 meq PO BID Qty: 60 2RF magnesium oxide 400 mg (241.3 mg magnesium) tablet 400 mg PO DAILY Qty: 30 2RF apixaban 2.5 mg tablet 2.5 mg PO BID Qty: 60 0RF Changed levothyroxine 75 mcg capsule 75 mcg PO DAILY Qty: 30 2RF Rx Instructions: note increased dose Combivent Respimat 20-100 mcg/actuation Mist 1 puff INHALATION TID PRN (Reason: cough/wheezing/shortness of breath) Qty: 1 0RF Discontinued furosemide 80 mg tablet 80 mg PO BID Qty: 60 2RF Rx Instructions: take in AM and about 4-5pm each day. Discharge Orders: Discharge Order (Routine); Ordered 01/26/23 Ordered By: Kurt Schwab/Other Patient Handouts: Tips for Using Less Salt, Low-Salt Choices, ED Low-Salt Diet Admission Data Admit Date/Time: 01/17/23 20:10 Attending Provider: Kurt Taylor Admit Provider: Kostas Patel Primary Care Provider: Stacey Arce Other Providers: Leonard Tovar Coding Diagnoses Acute diastolic CHF (congestive heart failure) I50.31 Depression F32.A Iron deficiency E61.1 History of embolic stroke Z86.73 Morbid obesity E66.01 S/P mitral valve replacement with bioprosthetic valve Z95.3 Left spastic hemiparesis G81.14 Primary hypothyroidism E03.9 Acute bronchitis J20.9
== END 2023-01-26 13:49 | disposition home health service (06) | DRG 292 ==
LOC: ED 14:45 → EDINP 20:10 → SUATTDRO 20:10 → 2W 01-18 15:12 → 2N 01-24 15:16

== ENCOUNTER 2023-02-18 10:54 | Observation (INO) ==
--- NOTE | 2023-02-18 11:10 | Emergency Department Note ---
Impression & Plan Acute on chronic heart failure with preserved ejection fraction (HFpEF), History of stroke, Left-sided weakness, Lethargy ED Provider Note NAME: TWILA RADER AGE: 37 SEX: F : 1985 ARRIVES VIA: Ambulance INFORMANT: Patient, ED PROVIDER(S): Toi Paez MD CHIEF COMPLAINT: Confusion, shortness of breath MEDICAL DECISION MAKING: Patient presents with the above symptoms. The patient does have a complicated past medical history. IV was established and blood work is obtained along with a CT of the head chest x-ray urinalysis procalcitonin and CXR. Patient supportive care kidney function which showed a normal potassium. The patient was ordered IV Bumex 4 mg. Patient has a normal white count chronic and stable anemia hemoglobin 9.3. Platelet count is slightly elevated at 427 although the patient has had thrombocytosis in the past. Patient's VBG shows normal VBG pH with chronic hypercarbia with a PCO2 of 66. This is consistent with the patient's bicarb of 33. Electrolytes are otherwise unremarkable. Troponin and BNP are not elevated. The patient did have a pneumonia completed which was not elevated. Procalcitonin is not elevated. Urinalysis without evidence of obvious infection. COVID-negative CT of the head shows prior right MCA territory infarct. Chest x-ray shows possible mild right basilar opacity which could be atelectatic versus pneumonia. The patient has not had cough and has a normal white count. CT lumbar spine does not show any acute fracture. I did speak the on-call hospitalist service Amelia Powell PA-C and the patient was admitted by Dr. Ortez. Prior /Outside records reviewed: I did review most recent heart failure visit from Margie madison. The patient does have a known history of acute on chronic heart failure with preserved ejection fraction and mitral valve replacement tobacco dependence. Patient reportedly at the time of this visit was having increased coughing and fatigue. Chest x-ray showed mild pulmonary edema and trace pleural effusions. Patient was advised to increase her Bumex to 4 mg twice daily. Patient's dry weight is 370 pounds Differential diagnosis: Reactive airway disease, pneumonia, pneumothorax, pneumonitis, COPD, CHF, infect ions, ACS, pulmonary embolism, musculoskeletal as well as other pathologies were considered. Diagnostics, as interpreted by me: ECG: Normal sinus rhythm, rate 75, normal CT and QRS, normal axis, prolonged QT. Cardiac monitoring: An order was placed for continuous cardiac monitoring. The monitor shows a rate of 72 with sinus rhythm. Patient was placed on pulse oximetry Medical decision rules: Heart score Imaging studies: See below I informally reviewed the patient's CT of the head which does show encephalomalacia in the right hemisphere. No obvious ICH. HPI: Patient presents due to concern for confusion as well as associated shortness of breath. The patient does have a known history of CHF and does follow with Margie madison. Patient has some low back pain. Patient denies any cough or fever. The patient is wearing off 4 L of oxygen at nighttime. The patient did not take her medication this morning. Patient denies any falls or trauma. No headache. The patient does have a history of CVA for which she does take the Eliquis per patient the patient does have left lower extremity and left upper extremity deficits. Patient states that she does walk with assistance. Patient does complain of some lower back discomfort. No dysuria or hematuria. The patient denies any falls or trauma. PAST MEDICAL HISTORY: See Below PAST SURGICAL HISTORY: See Below SOCIAL HISTORY: See Below HOME MEDICATIONS: See Below ALLERGIES: See Below VITALS: See Below PHYSICAL EXAMINATION: GENERAL: NAD, non-toxic. EYE EXAM: Normal conjunctiva. PERRL, no anisocoria and EOM's grossly intact w/o pain. OROPHARYNX: Moist mucus membranes, grossly normal dentition. NECK: Supple, no nuchal rigidity, no adenopathy, non-tender. No signs of meningismus. FROM of the neck with good chin to chest and neck extension. No stridor. Chest: Midline incisional scar well-healed LUNGS: Clear to auscultation. Normal chest wall mechanics. HEART: NSR, no MRG. ABDOMEN: Abdomen soft, non-tender, no masses, no rebound or guarding. BACK: No CVA TTP. SKIN: No rashes and no bruising. UPPER EXTREMITIES: Upper extremities are grossly normal. LOWER EXTREMITIES: Grossly normal, nonpitting lower extremity edema noted NEURO EXAM: GCS of 14, opens eyes to voice, cranial nerves II-XII grossly intact, normal speech, weakness of the left upper and left lower extremity Past Med/Surg History Medical History Anemia Anxiety B12 deficiency Bipolar disorder Chronic right arterial ischemic stroke, MCA (middle cerebral artery) Drug abuse and dependence Edema, peripheral Endocarditis MENDEZ (generalized anxiety disorder) History of embolic stroke Rt MCA Hypokalemia Hypoxia Iron deficiency Left spastic hemiparesis Morbid obesity Opioid use disorder, severe, in sustained remission on maintenance therapy Methadone PCOS (polycystic ovarian syndrome) Primary hypothyroidism Snoring Splenic abscess Thalassemia Tobacco dependence Surgical History H/O mitral valve replacement History of section History of repair of ACL History of tubal ligation S/P mitral valve replacement with bioprosthetic valve (06/2022) Family History Grandmother (Paternal) Breast cancer Grandfather (Maternal) Myocardial infarction Graves disease Grandfather (Paternal) Myocardial infarction Other Thalassemia Denies family history of Colon cancer Ovarian cancer Prostate cancer Social History Smoking Status: Current every day smoker Tobacco Type: Cigarettes packs per day: 1; Second Hand Exposure: Yes; Do You Dip or Chew Tobacco: No; Hx Alcohol Use: No Hx Substance Use: No Preferred Language: Czech Communication Ability: Effective Visual Impairment: No Limitations Hearing Ability: Normal Consignee Required: No Beliefs That Will Affect Care: Spiritual marital status: Single Current Living Situation: Parent Current Living Situation Comment: boyfriend and her 3 daughters 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 Feels Safe at Home: Yes Childhood Exposure to Second-Hand Smoke: No Diet: regular Diet Comment: regular Dental Care, Regularly: No Physical Activity Frequency: Does not Exercise Seatbelt Use: sometimes Sunscreen Use: No Assistive Devices: None Allergies Allergies Allergy/AdvReac Type Severity Reaction Status Date / Time sulfamethoxazole Allergy Severe Anaphylaxis Verified 02/18/23 15:02 [From Bactrim] trimethoprim [From Bactrim] Allergy Severe Anaphylaxis Verified 02/18/23 15:02 atorvastatin AdvReac Intermediate Muscle Pain Verified 02/18/23 15:02 Home Meds Home Medications Medication Instructions Recorded Confirmed aspirin 81 mg chewable tablet 81 mg PO DAILY 12/16/22 02/18/23 gabapentin 600 mg tablet 600 mg PO TID 12/16/22 02/18/23 melatonin 3 mg tablet 3 mg PO HS 12/16/22 02/18/23 methadone 10 mg tablet 72 mg PO DAILY 12/16/22 02/18/23 multivitamin with minerals 1 tab PO DAILY 12/16/22 02/18/23 levothyroxine 75 mcg tablet 75 mcg PO DAILY 01/27/23 02/18/23 Previous Rx's Medication Instructions Recorded Wheelchair (Manual) #1 ea 03/25/22 Hospital Bed Homecare (Hospital #1 ea 04/18/22 Bed) Wheelchair (Manual) (Manual #1 ea 04/18/22 Wheelchair) Lift Chair #1 ea 10/09/22 miscellaneous medical supply #1 ea 10/16/22 ketoconazole 2 % topical cream 1 applic topical BID 4 weeks #15 11/19/22 grams fluticasone propionate 100 1 inh inhalation BID #60 ea 12/16/22 mcg/actuation blister powder for inhalation (Flovent Diskus) metoprolol tartrate 50 mg tablet 25 mg PO BID #30 tabs 12/16/22 trazodone 50 mg tablet 50 mg PO HS #30 tabs 12/16/22 sertraline 100 mg tablet 200 mg PO DAILY #60 tabs 12/17/22 epinephrine 0.3 mg/0.3 mL 0.3 mg (0.3 mL) IM .COMPLEX PRN 12/26/22 injection, auto-injector anaphylaxis #2 ea apixaban 2.5 mg tablet 2.5 mg PO BID #60 tabs 01/08/23 cyanocobalamin (vitamin B-12) 1,000 mcg PO DAILY #90 tabs 01/08/23 1,000 mcg tablet magnesium oxide 400 mg (241.3 mg 400 mg PO DAILY #30 tabs 01/08/23 magnesium) tablet nicotine 7 mg/24 hr daily 7 mg transdermal QAM #30 ea 01/08/23 transdermal patch potassium chloride 20 mEq 20 meq PO BID #60 tabs 01/08/23 tablet,extended release aripiprazole 15 mg tablet (Abilify) 15 mg PO DAILY #30 tabs 01/24/23 Oxygen Home #1 ea 01/26/23 benzonatate 100 mg capsule 100 mg PO TID PRN cough #20 caps 01/26/23 ipratropium 0.5 mg-albuterol 3 mg 3 ml NEB Q6H PRN 01/26/23 (2.5 mg base)/3 mL nebulization cough/wheezing/shortness of breath soln #1 box ipratropium 20 mcg-albuterol 100 1 puff inhalation TID PRN 01/26/23 mcg/actuation mist for inhalation cough/wheezing/shortness of breath (Combivent Respimat) #1 g clonazepam 0.5 mg tablet 0.5 mg PO HS #30 tabs 02/10/23 bumetanide 2 mg tablet 4 mg PO BID #120 tabs 02/11/23 baclofen 10 mg tablet 10 mg PO BID #60 tabs 02/12/23 Results & Data (ED) Vital Signs Vital Signs - 24 hr 02/18/23 11:05 02/18/23 11:10 02/18/23 11:27 Temperature 37.1 C Temperature Source Oral Pulse Rate 77 79 Pulse Rate [Apical] 73 Pulse Rate from SpO2 Sensor Pulse Rhythm [Apical] Regular Respiratory Rate 16 18 Blood Pressure 120/74 Blood Pressure [Right Arm] Blood Pressure Mean 89 Blood Pressure Mean [Right Arm] Blood Pressure Position [Right Arm] Pulse Oximetry 97 98 Oxygen Delivery Method Nasal Cannula Nasal Cannula Oxygen Flow Rate 2 2 Sepsis Recent Fever Within 48 Hours No Sepsis New/Unexplained Change in Mental Status No Sepsis Action Taken by Nursing No Action Required 02/18/23 11:58 02/18/23 13:38 02/18/23 15:30 Temperature Temperature Source Pulse Rate 73 Pulse Rate [Apical] 79 Pulse Rate from SpO2 Sensor Pulse Rhythm [Apical] Respiratory Rate 20 Blood Pressure Blood Pressure [Right Arm] 135/90 Blood Pressure Mean Blood Pressure Mean [Right Arm] 105 Blood Pressure Position [Right Arm] Lying Pulse Oximetry 98 97 Oxygen Delivery Method Nasal Cannula Room Air Oxygen Flow Rate 2 Sepsis Recent Fever Within 48 Hours Sepsis New/Unexplained Change in Mental Status Sepsis Action Taken by Nursing 02/18/23 11:00 02/18/23 12:30 02/18/23 13:30 Temperature Temperature Source Pulse Rate 78 79 80 Pulse Rate [Apical] Pulse Rate from SpO2 Sensor Pulse Rhythm [Apical] Respiratory Rate 16 16 16 Blood Pressure 120/74 128/81 135/90 Blood Pressure [Right Arm] Blood Pressure Mean 89 96 105 Blood Pressure Mean [Right Arm] Blood Pressure Position [Right Arm] Pulse Oximetry 96 96 96 Oxygen Delivery Method Nasal Cannula Nasal Cannula Nasal Cannula Oxygen Flow Rate 2 2 2 Sepsis Recent Fever Within 48 Hours Sepsis New/Unexplained Change in Mental Status Sepsis Action Taken by Nursing 02/18/23 15:00 02/18/23 15:30 02/18/23 16:00 Temperature Temperature Source Pulse Rate 71 75 74 Pulse Rate [Apical] Pulse Rate from SpO2 Sensor Pulse Rhythm [Apical] Respiratory Rate 22 16 16 Blood Pressure 122/67 128/86 154/66 H Blood Pressure [Right Arm] Blood Pressure Mean 85 100 95 Blood Pressure Mean [Right Arm] Blood Pressure Position [Right Arm] Pulse Oximetry 93 97 97 Oxygen Delivery Method Nasal Cannula Nasal Cannula Nasal Cannula Oxygen Flow Rate 2 2 2 Sepsis Recent Fever Within 48 Hours Sepsis New/Unexplained Change in Mental Status Sepsis Action Taken by Nursing 02/18/23 16:40 02/18/23 18:45 Temperature Temperature Source Pulse Rate 81 Pulse Rate [Apical] Pulse Rate from SpO2 Sensor 81 Pulse Rhythm [Apical] Respiratory Rate 12 Blood Pressure Blood Pressure [Right Arm] Blood Pressure Mean Blood Pressure Mean [Right Arm] Blood Pressure Position [Right Arm] Pulse Oximetry 95 Oxygen Delivery Method Nasal Cannula Oxygen Flow Rate 2 Sepsis Recent Fever Within 48 Hours Sepsis New/Unexplained Change in Mental Status Sepsis Action Taken by [facility] Medications Current Medication List: was personally reviewed by me Laboratory Data Attestation: I reviewed the patient's lab results. 02/18/23 11:48 02/18/23 11:48 Lab Results 02/18/23 02/18/23 02/18/23 Range/Units 11:48 11:48 11:48 WBC 6.01 (4.8-10.8) K/ul RBC 4.40 (4.20-5.40) M/uL Hgb 9.3 L (12.0-16.0) g/dl POC Hgb (12.0-16.0) g/dl Hct 32.5 L (37.0-47.0) % POC Hct (37-47) % MCV 73.9 L (80.0-100.0) fL MCH 21.1 L (25.0-34.0) pg MCHC 28.6 L (32.0-36.0) g/dL RDW Std Deviation 38.2 (36.4-46.3) fL RDW Coeff of Alexia 14.1 (11.5-14.5) % Plt Count 427 H (130-400) K/uL MPV 9.2 L (9.4-12.4) fL Immature Gran % (Auto) 0.3 % Neut % (Auto) 64.2 % Lymph % (Auto) 23.5 % [place] % (Auto) 6.0 % Eos % (Auto) 5.2 % Baso % (Auto) 0.8 % Neut # (Auto) 3.86 (1.40-6.50) K/uL Lymph # (Auto) 1.41 (1.20-3.40) K/uL [place] # (Auto) 0.36 (0.11-0.59) K/uL Eos # (Auto) 0.31 (0.00-0.50) K/uL Baso # (Auto) 0.05 (0.00-0.20) K/uL Immature Gran # (Auto) 0.02 (0.01-0.20) K/uL RBC Morphology Unremarkable ABG pH (7.35-7.45) ABG pCO2 (35-46) mmHg ABG pO2 (80-95) mmHg ABG HCO3 (19-24) mmol/L ABG O2 Saturation (90-95) % ABG Base Excess (-9-1.8) mEq/L Mike Test (Pos) VBG pH (7.36-7.41) VBG pCO2 (38-50) mmHg VBG pO2 mmHg VBG HCO3 mmol/L VBG O2 Saturation % VBG Base Excess mEq/L Oxygen Given POC Sodium (135-144) mmol/L Sodium 138 (136-145) mmol/L POC Potassium (3.3-5.0) mmol/L Potassium 3.8 (3.5-5.1) mmol/L POC Chloride (101-112) mmol/L Chloride 98 (98-107) mmol/L Carbon Dioxide 33 H (21-32) mmol/L POC Total CO2 (24-31) mmol/L Anion Gap 7 (3-11) POC Anion Gap (16-25) mmol/L POC BUN (7-18) mg/dl BUN 12 (6-23) mg/dl Creatinine 0.90 (0.6-1.2) mg/dl POC Creatinine (0.6-1.3) mg/dl Est Cr Clr Drug Dosing Not Reportable Est GFR ( Amer) 95.3 ml/min Est GFR (Non-Af Amer) 82.3 ml/min BUN/Creatinine Ratio 13.3 (10-20) Glucose 90 (70-99(Fasting)) mg/dl POC Glucose (other) (70-99) mg/dl Calcium 9.3 (8.6-10.3) mg/dl POC Ioniz Calcium Lucia (1.12-1.32) mmol/l Magnesium 2.1 (1.7-2.4) mg/dl Total Bilirubin 0.2 (0.2-1.0) mg/dl AST 13 (13-39) U/L ALT 9 (7-52) U/L Alkaline Phosphatase 108 H (34-104) U/L Ammonia 36.0 (18-72) umol/L Troponin I High Sens 2.5 (0-14) pg/ml B-Natriuretic Peptide (0-100) pg/ml Total Protein 8.1 (6.0-8.3) gm/dl Albumin 3.7 (3.4-5.0) gm/dl Globulin 4.4 H (2.5-4.0) gm/dl Albumin/Globulin Ratio 0.8 L (0.9-2) Procalcitonin (0-0.5) ng/ml TSH (0.300-4.500) uIu/ml Free T4 (0.61-1.60) ng/dl Urine Color Urine Appearance (Clear) Urine pH (4.5-7.5) Ur Specific [place] (1.000-1.030) Urine Protein (Negative) Urine Glucose (UA) (Negative) Urine Ketones (Negative) Urine Blood (Negative) Urine Nitrite (Negative) Urine Bilirubin (Negative) Urine Urobilinogen (Negative) Ur Leukocyte Esterase (Negative) Lyme Disease IgG Ab (Negative) Lyme Disease IgM Ab (Negative) SARS-CoV-2, RNA, NAAT (NEGATIVE) 02/18/23 02/18/23 02/18/23 Range/Units 11:48 11:48 11:48 WBC (4.8-10.8) K/ul RBC (4.20-5.40) M/uL Hgb (12.0-16.0) g/dl POC Hgb (12.0-16.0) g/dl Hct (37.0-47.0) % POC Hct (37-47) % MCV (80.0-100.0) fL MCH (25.0-34.0) pg MCHC (32.0-36.0) g/dL RDW Std Deviation (36.4-46.3) fL RDW Coeff of Alexia (11.5-14.5) % Plt Count (130-400) K/uL MPV (9.4-12.4) fL Immature Gran % (Auto) % Neut % (Auto) % Lymph % (Auto) % [place] % (Auto) % Eos % (Auto) % Baso % (Auto) % Neut # (Auto) (1.40-6.50) K/uL Lymph # (Auto) (1.20-3.40) K/uL [place] # (Auto) (0.11-0.59) K/uL Eos # (Auto) (0.00-0.50) K/uL Baso # (Auto) (0.00-0.20) K/uL Immature Gran # (Auto) (0.01-0.20) K/uL RBC Morphology ABG pH (7.35-7.45) ABG pCO2 (35-46) mmHg ABG pO2 (80-95) mmHg ABG HCO3 (19-24) mmol/L ABG O2 Saturation (90-95) % ABG Base Excess (-9-1.8) mEq/L Mike Test (Pos) VBG pH 7.37 (7.36-7.41) VBG pCO2 66 H (38-50) mmHg VBG pO2 39 mmHg VBG HCO3 38 mmol/L VBG O2 Saturation 68.0 % VBG Base Excess 10.2 mEq/L Oxygen Given POC Sodium (135-144) mmol/L Sodium (136-145) mmol/L POC Potassium (3.3-5.0) mmol/L Potassium (3.5-5.1) mmol/L POC Chloride (101-112) mmol/L Chloride (98-107) mmol/L Carbon Dioxide (21-32) mmol/L POC Total CO2 (24-31) mmol/L Anion Gap (3-11) POC Anion Gap (16-25) mmol/L POC BUN (7-18) mg/dl BUN (6-23) mg/dl Creatinine (0.6-1.2) mg/dl POC Creatinine (0.6-1.3) mg/dl Est Cr Clr Drug Dosing Est GFR ( Amer) ml/min Est GFR (Non-Af Amer) ml/min BUN/Creatinine Ratio (10-20) Glucose (70-99(Fasting)) mg/dl POC Glucose (other) (70-99) mg/dl Calcium (8.6-10.3) mg/dl POC Ioniz Calcium Lucia (1.12-1.32) mmol/l Magnesium (1.7-2.4) mg/dl Total Bilirubin (0.2-1.0) mg/dl AST (13-39) U/L ALT (7-52) U/L Alkaline Phosphatase (34-104) U/L Ammonia (18-72) umol/L Troponin I High Sens (0-14) pg/ml B-Natriuretic Peptide 71 (0-100) pg/ml Total Protein (6.0-8.3) gm/dl Albumin (3.4-5.0) gm/dl Globulin (2.5-4.0) gm/dl Albumin/Globulin Ratio (0.9-2) Procalcitonin (0-0.5) ng/ml TSH 6.711 H (0.300-4.500) uIu/ml Free T4 0.62 (0.61-1.60) ng/dl Urine Color Urine Appearance (Clear) Urine pH (4.5-7.5) Ur Specific [place] (1.000-1.030) Urine Protein (Negative) Urine Glucose (UA) (Negative) Urine Ketones (Negative) Urine Blood (Negative) Urine Nitrite (Negative) Urine Bilirubin (Negative) Urine Urobilinogen (Negative) Ur Leukocyte Esterase (Negative) Lyme Disease IgG Ab (Negative) Lyme Disease IgM Ab (Negative) SARS-CoV-2, RNA, NAAT (NEGATIVE) 02/18/23 02/18/23 02/18/23 Range/Units 11:48 12:10 12:18 WBC (4.8-10.8) K/ul RBC (4.20-5.40) M/uL Hgb (12.0-16.0) g/dl POC Hgb 12.6 (12.0-16.0) g/dl Hct (37.0-47.0) % POC Hct 37 (37-47) % MCV (80.0-100.0) fL MCH (25.0-34.0) pg MCHC (32.0-36.0) g/dL RDW Std Deviation (36.4-46.3) fL RDW Coeff of Alexia (11.5-14.5) % Plt Count (130-400) K/uL MPV (9.4-12.4) fL Immature Gran % (Auto) % Neut % (Auto) % Lymph % (Auto) % [place] % (Auto) % Eos % (Auto) % Baso % (Auto) % Neut # (Auto) (1.40-6.50) K/uL Lymph # (Auto) (1.20-3.40) K/uL [place] # (Auto) (0.11-0.59) K/uL Eos # (Auto) (0.00-0.50) K/uL Baso # (Auto) (0.00-0.20) K/uL Immature Gran # (Auto) (0.01-0.20) K/uL RBC Morphology ABG pH (7.35-7.45) ABG pCO2 (35-46) mmHg ABG pO2 (80-95) mmHg ABG HCO3 (19-24) mmol/L ABG O2 Saturation (90-95) % ABG Base Excess (-9-1.8) mEq/L Mike Test (Pos) VBG pH (7.36-7.41) VBG pCO2 (38-50) mmHg VBG pO2 mmHg VBG HCO3 mmol/L VBG O2 Saturation % VBG Base Excess mEq/L Oxygen Given POC Sodium 140 (135-144) mmol/L Sodium (136-145) mmol/L POC Potassium 4.1 (3.3-5.0) mmol/L Potassium (3.5-5.1) mmol/L POC Chloride 96 L (101-112) mmol/L Chloride (98-107) mmol/L Carbon Dioxide (21-32) mmol/L POC Total CO2 33 H (24-31) mmol/L Anion Gap (3-11) POC Anion Gap 16.0 (16-25) mmol/L POC BUN 12 (7-18) mg/dl BUN (6-23) mg/dl Creatinine (0.6-1.2) mg/dl POC Creatinine 1.0 (0.6-1.3) mg/dl Est Cr Clr Drug Dosing Est GFR ( Amer) ml/min Est GFR (Non-Af Amer) ml/min BUN/Creatinine Ratio (10-20) Glucose (70-99(Fasting)) mg/dl POC Glucose (other) 94 (70-99) mg/dl Calcium (8.6-10.3) mg/dl POC Ioniz Calcium Lucia 1.15 (1.12-1.32) mmol/l Magnesium (1.7-2.4) mg/dl Total Bilirubin (0.2-1.0) mg/dl AST (13-39) U/L ALT (7-52) U/L Alkaline Phosphatase (34-104) U/L Ammonia (18-72) umol/L Troponin I High Sens (0-14) pg/ml B-Natriuretic Peptide (0-100) pg/ml Total Protein (6.0-8.3) gm/dl Albumin (3.4-5.0) gm/dl Globulin (2.5-4.0) gm/dl Albumin/Globulin Ratio (0.9-2) Procalcitonin < 0.05 (0-0.5) ng/ml TSH (0.300-4.500) uIu/ml Free T4 (0.61-1.60) ng/dl Urine Color Urine Appearance (Clear) Urine pH (4.5-7.5) Ur Specific [place] (1.000-1.030) Urine Protein (Negative) Urine Glucose (UA) (Negative) Urine Ketones (Negative) Urine Blood (Negative) Urine Nitrite (Negative) Urine Bilirubin (Negative) Urine Urobilinogen (Negative) Ur Leukocyte Esterase (Negative) Lyme Disease IgG Ab (Negative) Lyme Disease IgM Ab (Negative) SARS-CoV-2, RNA, NAAT NEGATIVE (NEGATIVE) 02/18/23 02/18/23 02/18/23 Range/Units 16:53 16:53 17:09 WBC (4.8-10.8) K/ul RBC (4.20-5.40) M/uL Hgb (12.0-16.0) g/dl POC Hgb (12.0-16.0) g/dl Hct (37.0-47.0) % POC Hct (37-47) % MCV (80.0-100.0) fL MCH (25.0-34.0) pg MCHC (32.0-36.0) g/dL RDW Std Deviation (36.4-46.3) fL RDW Coeff of Alexia (11.5-14.5) % Plt Count (130-400) K/uL MPV (9.4-12.4) fL Immature Gran % (Auto) % Neut % (Auto) % Lymph % (Auto) % [place] % (Auto) % Eos % (Auto) % Baso % (Auto) % Neut # (Auto) (1.40-6.50) K/uL Lymph # (Auto) (1.20-3.40) K/uL [place] # (Auto) (0.11-0.59) K/uL Eos # (Auto) (0.00-0.50) K/uL Baso # (Auto) (0.00-0.20) K/uL Immature Gran # (Auto) (0.01-0.20) K/uL RBC Morphology ABG pH 7.44 (7.35-7.45) ABG pCO2 52 H (35-46) mmHg ABG pO2 84 (80-95) mmHg ABG HCO3 35 H (19-24) mmol/L ABG O2 Saturation 97.6 H (90-95) % ABG Base Excess 9.4 H (-9-1.8) mEq/L Mike Test Pos (Pos) VBG pH (7.36-7.41) VBG pCO2 (38-50) mmHg VBG pO2 mmHg VBG HCO3 mmol/L VBG O2 Saturation % VBG Base Excess mEq/L Oxygen Given 2 POC Sodium (135-144) mmol/L Sodium (136-145) mmol/L POC Potassium (3.3-5.0) mmol/L Potassium (3.5-5.1) mmol/L POC Chloride (101-112) mmol/L Chloride (98-107) mmol/L Carbon Dioxide (21-32) mmol/L POC Total CO2 (24-31) mmol/L Anion Gap (3-11) POC Anion Gap (16-25) mmol/L POC BUN (7-18) mg/dl BUN (6-23) mg/dl Creatinine (0.6-1.2) mg/dl POC Creatinine (0.6-1.3) mg/dl Est Cr Clr Drug Dosing Est GFR ( Amer) ml/min Est GFR (Non-Af Amer) ml/min BUN/Creatinine Ratio (10-20) Glucose (70-99(Fasting)) mg/dl POC Glucose (other) (70-99) mg/dl Calcium (8.6-10.3) mg/dl POC Ioniz Calcium Lucia (1.12-1.32) mmol/l Magnesium (1.7-2.4) mg/dl Total Bilirubin (0.2-1.0) mg/dl AST (13-39) U/L ALT (7-52) U/L Alkaline Phosphatase (34-104) U/L Ammonia 40.0 (18-72) umol/L Troponin I High Sens (0-14) pg/ml B-Natriuretic Peptide (0-100) pg/ml Total Protein (6.0-8.3) gm/dl Albumin (3.4-5.0) gm/dl Globulin (2.5-4.0) gm/dl Albumin/Globulin Ratio (0.9-2) Procalcitonin (0-0.5) ng/ml TSH (0.300-4.500) uIu/ml Free T4 (0.61-1.60) ng/dl Urine Color Urine Appearance (Clear) Urine pH (4.5-7.5) Ur Specific [place] (1.000-1.030) Urine Protein (Negative) Urine Glucose (UA) (Negative) Urine Ketones (Negative) Urine Blood (Negative) Urine Nitrite (Negative) Urine Bilirubin (Negative) Urine Urobilinogen (Negative) Ur Leukocyte Esterase (Negative) Lyme Disease IgG Ab Negative (Negative) Lyme Disease IgM Ab Negative (Negative) SARS-CoV-2, RNA, NAAT (NEGATIVE) 02/18/23 Range/Units 18:30 WBC (4.8-10.8) K/ul RBC (4.20-5.40) M/uL Hgb (12.0-16.0) g/dl POC Hgb (12.0-16.0) g/dl Hct (37.0-47.0) % POC Hct (37-47) % MCV (80.0-100.0) fL MCH (25.0-34.0) pg MCHC (32.0-36.0) g/dL RDW Std Deviation (36.4-46.3) fL RDW Coeff of Alexia (11.5-14.5) % Plt Count (130-400) K/uL MPV (9.4-12.4) fL Immature Gran % (Auto) % Neut % (Auto) % Lymph % (Auto) % [place] % (Auto) % Eos % (Auto) % Baso % (Auto) % Neut # (Auto) (1.40-6.50) K/uL Lymph # (Auto) (1.20-3.40) K/uL [place] # (Auto) (0.11-0.59) K/uL Eos # (Auto) (0.00-0.50) K/uL Baso # (Auto) (0.00-0.20) K/uL Immature Gran # (Auto) (0.01-0.20) K/uL RBC Morphology ABG pH (7.35-7.45) ABG pCO2 (35-46) mmHg ABG pO2 (80-95) mmHg ABG HCO3 (19-24) mmol/L ABG O2 Saturation (90-95) % ABG Base Excess (-9-1.8) mEq/L Mike Test (Pos) VBG pH (7.36-7.41) VBG pCO2 (38-50) mmHg VBG pO2 mmHg VBG HCO3 mmol/L VBG O2 Saturation % VBG Base Excess mEq/L Oxygen Given POC Sodium (135-144) mmol/L Sodium (136-145) mmol/L POC Potassium (3.3-5.0) mmol/L Potassium (3.5-5.1) mmol/L POC Chloride (101-112) mmol/L Chloride (98-107) mmol/L Carbon Dioxide (21-32) mmol/L POC Total CO2 (24-31) mmol/L Anion Gap (3-11) POC Anion Gap (16-25) mmol/L POC BUN (7-18) mg/dl BUN (6-23) mg/dl Creatinine (0.6-1.2) mg/dl POC Creatinine (0.6-1.3) mg/dl Est Cr Clr Drug Dosing Est GFR ( Amer) ml/min Est GFR (Non-Af Amer) ml/min BUN/Creatinine Ratio (10-20) Glucose (70-99(Fasting)) mg/dl POC Glucose (other) (70-99) mg/dl Calcium (8.6-10.3) mg/dl POC Ioniz Calcium Lucia (1.12-1.32) mmol/l Magnesium (1.7-2.4) mg/dl Total Bilirubin (0.2-1.0) mg/dl AST (13-39) U/L ALT (7-52) U/L Alkaline Phosphatase (34-104) U/L Ammonia (18-72) umol/L Troponin I High Sens (0-14) pg/ml B-Natriuretic Peptide (0-100) pg/ml Total Protein (6.0-8.3) gm/dl Albumin (3.4-5.0) gm/dl Globulin (2.5-4.0) gm/dl Albumin/Globulin Ratio (0.9-2) Procalcitonin (0-0.5) ng/ml TSH (0.300-4.500) uIu/ml Free T4 (0.61-1.60) ng/dl Urine Color Yellow Urine Appearance Clear (Clear) Urine pH 8.0 H (4.5-7.5) Ur Specific [place] 1.009 (1.000-1.030) Urine Protein Negative (Negative) Urine Glucose (UA) Negative (Negative) Urine Ketones Negative (Negative) Urine Blood Negative (Negative) Urine Nitrite Negative (Negative) Urine Bilirubin Negative (Negative) Urine Urobilinogen Negative (Negative) Ur Leukocyte Esterase Negative (Negative) Lyme Disease IgG Ab (Negative) Lyme Disease IgM Ab (Negative) SARS-CoV-2, RNA, NAAT (NEGATIVE) Administered Medications Discontinued Medications Aspirin (Aspirin 81 Mg Ectab) 81 mg PO NOW STA Stop: 02/18/23 15:06 Last Admin: 02/18/23 15:43 Dose: 81 mg Documented By: ARNOLD Bumetanide 4 mg/ Syringe 16 mls @ 4 mls/min IV ONE ONE Stop: 02/18/23 12:25 Last Admin: 02/18/23 14:33 Dose: 4 mls/min Documented By: SLChristian Levalbuterol HCl (Levalbuterol 1.25 Mg/3 Ml Neb) 1.25 mg NEB NOW STA; Protocol Stop: 02/18/23 11:17 Last Admin: 02/18/23 11:53 Dose: 1.25 mg Documented By: YAMIL Metoprolol Tartrate (Metoprolol Tartrate 25 Mg Tab) 25 mg PO NOW STA Stop: 02/18/23 15:10 Last Admin: 02/18/23 15:43 Dose: 25 mg Documented By: ARNOLD Imaging Data Radiologist's Impression: Chest X-Ray 02/18/23 11:16 XR chest 1V portable CLINICAL HISTORY: weakness COMPARISON STUDY: Chest radiograph February 11, 2023. FINDINGS: There are median sternotomy wires. Mild cardiomegaly is unchanged. Pulmonary vascular congestion is similar to prior exam. There may be mild right basilar opacity. There is no pneumothorax or pleural effusion. IMPRESSION: 1. Stable cardiomegaly and pulmonary vascular congestion. 2. Possible mild right basilar opacity. This could reflect atelectasis or a focus of pneumonia. ACT 112: Negative or not required by law. Electronically signed by: Justin Valle M.D. 02/18/2023 11:[address] 02/18/23 11:16 CT SCAN OF THE BRAIN WITHOUT IV CONTRAST CLINICAL HISTORY: Change in mental status. COMPARISON STUDY: CT of the brain dated 12/16/2022. TECHNIQUE: Unenhanced axial CT scan of the brain is performed from the vertex to the skull base. A dose lowering technique was utilized adhering to the principles of ALARA. FINDINGS: Brain parenchyma: Right MCA territory encephalomalacia is consistent with a remote infarct. There is ex vacuo dilatation of the right lateral ventricle. Wallerian degeneration is noted in the right aspect of the marlon. There is no hemorrhage, mass effect, or evidence of acute territorial ischemia by CT criteria. Ch-white matter differentiation is preserved. No extra-axial fluid collection is seen. Ventricles, sulci, cisterns: Normal in configuration. Intracranial vasculature: The visualized intracranial vasculature at the skull base is normal in appearance. Calvarium: Unremarkable. Sinuses and mastoids: The visualized paranasal sinuses are clear. The mastoid air cells are well pneumatized. Orbits: The bony orbits are grossly intact. IMPRESSION: 1. There is no hemorrhage, mass effect, or evidence of acute territorial ischemia by CT criteria. 2. Remote right MCA territory infarct. ACT 112: Negative or not required by law. Electronically signed by: Gaudencio Phillips M.D. 02/18/2023 1:[address] 02/18/23 11:16 CT OF THE LUMBAR SPINE CLINICAL HISTORY: Low back pain. COMPARISON STUDY: Lumbar spine MRI and CT of the abdomen and pelvis November 19, 2022. TECHNIQUE: Helical axial images of the lumbar spine were obtained. Sagittal and coronal reconstructions were viewed. Automated exposure control was utilized for the study. A dose lowering technique was utilized adhering to the principles of ALARA. FINDINGS: Alignment of the lumbar spine is anatomic. Slight concavity of the superior endplate of L1 is unchanged. No lumbar spine fracture is present. No osseous lesions are identified. There is moderate disc space narrowing with mild osteophytosis at L5-S1. This is unchanged since prior CT. Facet joints are intact. There is mild to moderate multilevel facet arthrosis. Mild multilevel degenerative disc disease is present. Central canal and neural foramen are suboptimally assessed given CT technique. No central canal stenosis is identified. IMPRESSION: No acute lumbar spine fracture or subluxation. No significant change in appearance of the lumbar spine. ACT 112: Negative or not required by law. Electronically signed by: Justin Valle M.D. 02/18/2023 1:[address] 02/18/23 17:03 CT SCAN OF THE CHEST WITHOUT IV CONTRAST CLINICAL HISTORY: Dyspnea. Hypoxia. COMPARISON STUDY: Chest x-ray dated 02/18/2023. Chest CT dated 08/02/2021. Abdominal CT dated 11/20/2022. TECHNIQUE: CT scan of the thorax was performed from the thoracic inlet to the upper abdomen. Images are reviewed in the axial, sagittal, and coronal planes. IV contrast was not administered for this examination as per the referring clinician. A dose lowering technique was utilized adhering to the principles of ALARA. The examination is degraded by large body habitus, and by streak artifact from the body wall abutting the CT gantry. There is also motion artifact. CT DOSE: 1216.68 mGy.cm FINDINGS: Thyroid: Imaged portions of the thyroid gland are normal in size and attenuation. Thoracic aorta: The thoracic aorta is normal in caliber and demonstrates standard 3-vessel arch anatomy. Heart: The patient is status post midline sternotomy. There is evidence of previous mitral valve surgery appear The heart is top normal in size and without pericardial effusion. Lungs and pleural spaces: Evaluation of the lung parenchyma is degraded by motion artifact. Foci of linear scarring/atelectasis are seen throughout both lungs, greatest in the right upper lobe and at both lung bases. There is no airspace consolidation typical for pneumonia or pleural effusion. Minimal secretions are noted in the trachea. There is mild intralobular septal thicken ing. Mediastinum: There is no mediastinal lymphadenopathy. Rylie: Not well assessed without IV contrast. Axillae: There is no axillary lymphadenopathy. Upper abdomen: The spleen is enlarged measuring 14.6 cm in length. A 6.5 cm cystic lesion in the spleen seen on image #211 is indeterminate. This is unchanged from 11/20/2022 but new from 08/02/2021. The liver appears enlarged and steatotic. Skeletal structures: No lytic or blastic bony lesions are seen. IMPRESSION: 1. There is no airspace consolidation typical for pneumonia or pleural effusion. 2. Mild intralobular septal thickening could represent acute versus chronic congestive change. Clinical correlation will be required. 3. Splenomegaly. 4. An indeterminate 6.5 cm cystic lesion in the spleen is unchanged from 11/20/2022 but new from 08/02/2021. 5. Additional findings as above. ACT 112: Negative or not required by law. Electronically signed by: Gaudencio Phillips M.D. 02/18/2023 6:43 PM Discharge Plan Visit Data Chief Complaint: Illness ED Provider: Toi Paez Discharge Problem: Acute on chronic heart failure with preserved ejection fraction (HFpEF), History of stroke, Left-sided weakness, Lethargy Patient Disposition: Admitted As Inpatient Discharge Instructions Interventions: ED Discharge Assessment Last Done: 02/18/23 18:45 Prescriptions Prescriptions: No Action (DME) Lift Chair Misc See Rx Instructions .Route Qty: 1 0RF Rx Instructions: As directed (DME) miscellaneous medical supply Misc See Rx Instructions .ROUTE .MEDSUPPLY Qty: 1 0RF Rx Instructions: Left wrist splint Dx: lt spastic hemiparesis metoprolol tartrate 50 mg tablet 25 mg PO BID Qty: 30 2RF Flovent Diskus 100 mcg/actuation blister with device 1 inh inhalation BID Qty: 60 2RF trazodone 50 mg tablet 50 mg PO HS Qty: 30 2RF sertraline 100 mg tablet 200 mg PO DAILY Qty: 60 2RF epinephrine 0.3 mg/0.3 mL auto-injector 0.3 mg IM .COMPLEX PRN (Reason: anaphylaxis) Qty: 2 1RF Rx Instructions: 0.3 mg intramuscularly once but repeat dose x1 in 5-15min if needed PRN; After first injection, proceed to the ER aripiprazole [Abilify] 15 mg tablet 15 mg PO DAILY Qty: 30 0RF clonazepam 0.5 mg tablet 0.5 mg PO HS Qty: 30 0RF bumetanide 2 mg tablet 4 mg PO BID Qty: 120 2RF baclofen 10 mg tablet 10 mg PO BID Qty: 60 0RF levothyroxine 75 mcg tablet 75 mcg PO DAILY (DME) Wheelchair (Manual) Device See Rx Instructions .Route Qty: 1 0RF Rx Instructions: As [id number] Z86.73 (DME) Hospital Bed [facility] [place] See Rx Instructions .Route Qty: 1 0RF Rx Instructions: As directed G81.9, I63.411 (DME) Manual Wheelchair Device See Rx Instructions .Route Qty: 1 0RF Rx Instructions: [address] drive WC please G81.9 ketoconazole 2 % cream 1 applic topical BID 28 Days Qty: 15 0RF methadone 10 mg Tablet 72 mg PO DAILY melatonin 3 mg Tablet 3 mg PO HS aspirin 81 mg Tablet,Chewable 81 mg PO DAILY multivitamin with minerals Tablet 1 tab PO DAILY gabapentin 600 mg tablet 600 mg PO TID nicotine 7 mg/24 hr Patch 24 Hour 7 mg transdermal QAM Qty: 30 0RF cyanocobalamin (vitamin B-12) 1,000 mcg tablet 1,000 mcg PO DAILY Qty: 90 1RF Rx Instructions: purchase [id number]. potassium chloride 20 mEq tablet extended release 20 meq PO BID Qty: 60 2RF magnesium oxide 400 mg (241.3 mg magnesium) tablet 400 mg PO DAILY Qty: 30 2RF apixaban 2.5 mg tablet 2.5 mg PO BID Qty: 60 0RF ipratropium-albuterol 0.5 mg-3 mg(2.5 mg base)/3 mL Solution For Nebulization 3 ml NEB Q6H PRN (Reason: cough/wheezing/shortness of breath) Qty: 1 0RF Rx Instructions: dx: J45.901 benzonatate 100 mg Capsule 100 mg PO TID PRN (Reason: cough) Qty: 20 0RF Combivent Respimat 20-100 mcg/actuation Mist 1 puff INHALATION TID PRN (Reason: cough/wheezing/shortness of breath) Qty: 1 0RF (DME) Oxygen Home Liters Per Minute See Rx Instructions .ROUTE .MEDSUPPLY Qty: 1 0RF Rx Instructions: 2 liters NC O2 with sleep.
[2023-02-18] MEDS ORDERED: LEVALBUTEROL 1.25 MG/3 ML NEB NEB STA (11:16)
--- NOTE | 2023-02-18 11:44 | XRay Report ---
XR chest 1V portable CLINICAL HISTORY: weakness COMPARISON STUDY: Chest radiograph February 11, 2023. FINDINGS: There are median sternotomy wires. Mild cardiomegaly is unchanged. Pulmonary vascular conge stion is similar to prior exam. There may be mild right basilar opacity. There is no pneumothorax or pleural effusion. IMPRESSION: 1. Stable cardiomegaly and pulmonary vascular congestion. 2. Possible mild right basilar opacity. This could reflect atelectasis or a focus of pneumonia. ACT 112: Negative or not required by law. Electronically signed by: Justin Valle M.D. 02/18/2023 11:43 AM
[2023-02-18] MEDS ORDERED: BUMETANIDE 4 MG in SYRINGE 0 ML IV ONE (12:22)
[2023-02-18 12:30] LABS: iSTAT Hemoglobin 12.6 g/dl (12.0-16.0); iSTAT Ionized Calcium 1.15 mmol/l (1.12-1.32); iSTAT Potassium 4.1 mmol/L (3.3-5.0)
[2023-02-18 12:38] LABS: Troponin I High Sensitivity 2.5 pg/ml (0-14)
[2023-02-18 12:49] LABS: Basophils # (auto) 0.05 K/uL (0.00-0.20); Basophils % (auto) 0.8 %; Eosinophils # (auto) 0.31 K/uL (0.00-0.50); Eosinophils % (auto) 5.2 %; Hematocrit (blood only) 32.5 % (37.0-47.0); Hemoglobin 9.3 g/dl (12.0-16.0); Immature Granulocytes # (auto) 0.02 K/uL (0.01-0.20); Immature Granulocytes % (auto) 0.3 %; Lymphocytes # (auto) 1.41 K/uL (1.20-3.40); Lymphocytes % (auto) 23.5 %; Mean Corpuscular Hemoglobin 21.1 pg (25.0-34.0); Mean Corpuscular Hgb Conc 28.6 g/dL (32.0-36.0); Mean Corpuscular Volume 73.9 fL (80.0-100.0); Mean Platelet Volume 9.2 fL (9.4-12.4); Monocytes # (auto) 0.36 K/uL (0.11-0.59); Neutrophils # (auto) 3.86 K/uL (1.40-6.50); Neutrophils % (auto) 64.2 %; Platelet Count 427 K/uL (130-400); RBC Morphology Unremarkable; RDW Coefficient of Variation 14.1 % (11.5-14.5); RDW Standard Deviation 38.2 fL (36.4-46.3); White Blood Count 6.01 K/ul (4.8-10.8)
[2023-02-18 12:56] LABS: Albumin Level 3.7 gm/dl (3.4-5.0); Anion Gap 7 (3-11); Bilirubin,Total 0.2 mg/dl (0.2-1.0); Calcium 9.3 mg/dl (8.6-10.3); Carbon Dioxide 33 mmol/L (21-32); Chloride 98 mmol/L (98-107); Magnesium 2.1 mg/dl (1.7-2.4); Potassium 3.8 mmol/L (3.5-5.1); Sodium 138 mmol/L (136-145)
[2023-02-18 13:02] LABS: Alanine Aminotransferase 9 U/L (7-52); Albumin Globulin Ratio 0.8 (0.9-2); Alkaline Phosphatase 108 U/L (34-104); Aspartate Aminotransferase 13 U/L (13-39); BUN Creatinine Ratio 13.3 (10-20); Blood Urea Nitrogen 12 mg/dl (6-23); Est GFR (African American) 95.3 ml/min; Est GFR (Non-African American) 82.3 ml/min; Globulin 4.4 gm/dl (2.5-4.0); Glucose 90 mg/dl (70-99(Fasting)); Total Protein 8.1 gm/dl (6.0-8.3)
[2023-02-18 13:16] LABS: Base Excess VBG 10.2 mEq/L; HCO3 VBG 38 mmol/L; PCO2 VBG 66 mmHg (38-50); PO2 VBG 39 mmHg; pH VBG 7.37 (7.36-7.41)
--- NOTE | 2023-02-18 13:17 | CT Scan Report ---
CT OF THE LUMBAR SPINE CLINICAL HISTORY: Low back pain. COMPARISON STUDY: Lumbar spine MRI and CT of the abdomen and pelvis November 19, 2022. TECHNIQUE: Helical axial images of the lumbar spine were obtained. Sagittal and coronal reconstruct ions were viewed. Automated exposure control was utilized for the study. A dose lowering technique was utilized adhering to the principles of ALARA. FINDINGS: Alignment of the lumbar spine is anatomic. Slight concavity of the superior endplate of L1 is unchanged. No lumbar spine fracture is present. No osseous lesions are identified. There is modera te disc space narrowing with mild osteophytosis at L5-S1. This is unchanged since prior CT. Facet hugo nts are intact. There is mild to moderate multilevel facet arthrosis. Mild multilevel degenerative di sc disease is present. Central canal and neural foramen are suboptimally assessed given CT technique. No central canal stenosis is identified. IMPRESSION: No acute lumbar spine fracture or subluxation. No significant change in appearance of the lumbar spine. ACT 112: Negative or not required by law. Electronically signed by: Justin Valle M.D. 02/18/2023 1:16 PM
--- NOTE | 2023-02-18 13:20 | CT Scan Report ---
CT SCAN OF THE BRAIN WITHOUT IV CONTRAST CLINICAL HISTORY: Change in mental status. COMPARISON STUDY: CT of the brain dated 12/16/2022. TECHNIQUE: Unenhanced axial CT scan of the brain is performed from the vertex to the skull base. A d ose lowering technique was utilized adhering to the principles of ALARA. FINDINGS: Brain parenchyma: Right MCA territory encephalomalacia is consistent with a remote infarct. There is ex vacuo dilatation of the right lateral ventricle. Wallerian degeneration is noted in the right aspe ct of the marlon. There is no hemorrhage, mass effect, or evidence of acute territorial ischemia by CT criteria. Ch-white matter differentiation is preserved. No extra-axial fluid collection is seen. Ventricles, sulci, cisterns: Normal in configuration. Intracranial vasculature: The visualized intracranial vasculature at the skull base is normal in appe arance. Calvarium: Unremarkable. Sinuses and mastoids: The visualized paranasal sinuses are clear. The mastoid air cells are well pneu matized. Orbits: The bony orbits are grossly intact. IMPRESSION: 1. There is no hemorrhage, mass effect, or evidence of acute territorial ischemia by CT criteria. 2. Remote right MCA territory infarct. ACT 112: Negative or not required by law. Electronically signed by: Gaudencio Phillips M.D. 02/18/2023 1:19 PM
[2023-02-18 13:23] LABS: Thyroid Stimulating Hormone 6.711 uIu/ml (0.300-4.500)
[2023-02-18 14:12] LABS: T4 Free Thyroxine 0.62 ng/dl (0.61-1.60)
[2023-02-18] MEDS ORDERED: ASPIRIN 81 MG ECTAB PO STA (15:05)
[2023-02-18] MEDS ORDERED: METOPROLOL TARTRATE 25 MG TAB PO STA (15:09)
--- NOTE | 2023-02-18 15:14 | History & Physical Report ---
Date of Service February 18, 2023 Assessment & Plan (1) Lethargy: Plan: recent admissions for similar episodes, however possible UTI vs PNA on top of acute on chronic heart failure with preserved ejection fraction Admit PCU, monitor on telemetry -suspect combination CO2 retention in setting of untreated sleep apnea and progressive weight gain in patient with acute on chronic CHF and recently switched to bumex and increased to 4mg BID with continued weight gain VBG w/ elevated CO2 Will obtain ABG, RT to place on BiPAP for elevated CO2, suspect contributing to lethargy, also medications can be contributing, ESPECIALLY sedating meds/clonazepam/trazodone in setting of untreated sleep apnea Can check ABG in AM on BiPAP/see if qualify for such at discharge if able to tolerate Hold PM trazodone for tonight, will continue clonazepam as she will be on BiPAP. Will hold baclofen to prevent sedation as well. Consultation w/ psych to see about adjustment of meds/likely depression Unclear if home oxygen unit not working -- mom reports yellow light on, getting new unit. Also working on getting patient moved with her permanently Check ammonia, lyme, b1 (start replacement tomorrow given hx) CHF/possible pneumonia * CXR noting mild right basilar opacity, possible pneumonia vs atelectasis * Duonebs as needed, hypertonic saline/Mucinex for mucus congestion * Incentive spirometer/flutter valve * Check blood cultures, then ordered Rocephin/Azithro. check MRSA nares * Check CT Chest for further eval * Bumex 4mg IV BID for now, monitor I&O, AHA diet with 1500mL fluid restriction * Cardiology consulted, appreciate assistance * ?switching to metoprolol succinate, addition of SGLT2i Also consulted nephrology for assistance w/ diuresis given continued issues despite uptitration, mom reports patient has been compliant w/ medications at home ?bumex gtt Urinary Symptoms - reports of foul smelling urine/incontinence. CT lumbar spine without acute process checked by ER provider - blood cultures as above - check UA/cx, abx as above *Of note, internal med note from [facility] during her formerly [facility] hospitalization notes splenic collection concerning for abscess however eval by surgery and felt stable/improved from prior and felt less likely infectious and decision for no intervention adn was dc on Augmentin x 7 days to [facility] for rehab. Noting if symptoms recurred, reasonable to have IR aspirate lesion. Noting hx of thalassemia listed. ?contributing to overall picture. check LDH/retic/haptoglobin/peripheral smear. consider c/w hematology (2) Acute on chronic heart failure with preserved ejection fraction (HFpEF): Plan: Progressive weight gain despite increase in outpatient diuretic regimen to bumex 4mg BID, weight 393lb (dry weight "370lb"). Noting Abilify and gabapentin can also cause edema Continue metoprolol BID , ?switching to succinate Continue ASA 81mg daily also appears on reduced dose eliquis 2.5mg BID, likely for DVT proph in immobilized state/hx CVA Given bumex 4mg IV, will continue IV BID. Consider switching to bumex gtt. Monitor weights/I&Os Nephrology consulted for diuretic assistance as well as cardiology Last A1c 5.6, however suspect benefit from SGLT2 in morbidly obese patient (3) Hypothyroidism: Plan: Recently started thyroid replacement this summer, currently on 75mcg daily. Reports compliance and takes in AM on empty stomach TSH remains elevated, Ft4 wnl but low normal --> will increase to 88mcg daily. repeat TFT in 6 weeks w/ PCP. (4) Sleep apnea: Plan: suspected, not treated. uses 4L HS outpt sleep study should be arranged (5) Hypervolemia: Plan: IV diuretics as above (6) Chronic right arterial ischemic stroke, MCA (middle cerebral artery): Plan: hx of such from endocarditis (from IVDU), on eliquis/aspirin for secondary prevention CT head noting remote infarct but not acute monitor response to abx/diuresis as above, can consider MRI brain if needed (7) Left-sided weakness: Plan: from hx CVA as above, continue eliquis/aspirin (8) H/O mitral valve replacement: Plan: noted, 2nd to IVDU/endocarditis. continue home meds of note, hx lists Hep C, ?ever treated likely needing outpt f/u. no prior hx cirrhosis noted (9) Anxiety: Plan: home meds clonazepam 0,5mg HS, gabapentin 600mg TID, sertraline 200mg daily, trazodone 50mg HS. hx bipolar in chart holding baclofen, gabapentin reduce to 300mg TID to prevent over sedation methadone 72mg daily, nicotine patch consult psych for assistance/possible changes to medications to prevent sedation (10) Iron deficiency: Plan: hx thalassemia, prior IV venofer infusions. Hgb stable compared to priors at 9.3. Check iron labs/replacement as indicated, can check LDH/retic/haptoglobin w/ AM labs/consult hematology if needed. Splenomegaly on imaging, ?sphreocytosis CBC in AM/monitor for any bleeding Plan DVT proph: continues on low dose eliquis 2.5mg BID History of Present Illness Primary Care Provider: Stacey Arce MD 37yo female with PMHx significant for endocarditis (prior IVDU hx), s/p mitral valve replacement, hx CVA (MCA region) from embolic CVA 2nd to endocarditis (L sided hemiparesis, ASA/Eliquis for 2ndary prevention, hypothyroidism, thalassemia, snoring, MENDEZ, bipolar, anxiety presented with complaints of shortness of breath. Recent hospitalization for such last month with 15lb weight gain, where she was recently diagnosed with hypothyroidism as well as possibility underlying untreated sleep apnea. Per CHF note, after discharge, weight gain 15lb in 4-10 days with increased LE edema and was switched to Bumex 2mg BID and increased to 4mg BID most recently. Patient evaluated in B3B, mom and daughter at bedside. Patient very sleep/fatigued, will open eyes, answering questions quickly, falling back asleep. Denies chest pain, abdominal pain/nausea. Wanting something to drink/eat, fatigue/sleepy appearing. Per mom, reports patient yesterday starting more fatigue/sleepy, not much of an appetite for dinner. Ate another bite during evening but fell back asleep.Reports feeling off/in a daze, eyes rolling in back of head on occasion. Sleeps in recliner chair in the living room, and mom stays up with her. Has been very fatigued/sleepy over the past couple of days. Typically wears O2, 2L HS. Having period of apnea on exam. Reports doesn't get good sleep. Per mom, home unit oxygen had yellow light, unclear if was actually using. Complaints of sinus congestion/dry mouth with oxygen, does not use humidification. Mom is working on getting new unit at home Mom reports this morning, patient went to bathroom this morning and said she didn't pee, but family noticied she had. Reports darkened yellow in color/foul smelling reported by daughter at bedside. Patient states she does not want to get up to go to the bathroom at present, assisted nursing w/ purewick for now. Discussed possible purewick at home if needed. Reports compliance with the bumex. Regarding her hypothyroidism, mother reports she had been compliant with her Synthroid, taking on empty stomach before eating. TSH elevated and will adjust/increase. Regarding suspected sleep apnea, mom states she had been working on more pertinent issues w/ edema/swelling and not arranged formal sleep study yet outpatient. They are in the middle of getting patient moved back into their house so someone is with her all the time. Volume overloaded on exam with recorded weight 179kg (393lb) , dry weight to be "370lb for now" per CHF notes. Prior discussion about possible starting SGLT2i in the future and likely benefit from such. Discussed w/ mom, clonazepam not ideal w/ untreated CARINA/sedation/hypercapnea. CXR w/ cardiomegaly/pulmonary vascular congestion. Does note possible mild R basilar opacity could reflect atelectasis vs focus of pneumonia Given bumex 4mg IV x 1, On 2L presently, wet/moist cough, difficulty bringing up phlegm but appears to have mucus. Will order nebs/hypertonic saline. Patient on methadone, 72mg at night - per mom, will need tonight Allergies Allergy/AdvReac Type Severity Reaction Status Date / Time sulfamethoxazole Allergy Severe Anaphylaxis Verified 02/18/23 15:02 [From Bactrim] trimethoprim [From Bactrim] Allergy Severe Anaphylaxis Verified 02/18/23 15:02 atorvastatin AdvReac Intermediate Muscle Pain Verified 02/18/23 15:02 Home Medications Medication Instructions Recorded Confirmed Type Wheelchair (Manual) #1 ea 03/25/22 02/11/23 Rx Hospital Bed Homecare (Hospital #1 ea 04/18/22 02/11/23 Rx Bed) Wheelchair (Manual) (Manual #1 ea 04/18/22 02/11/23 Rx Wheelchair) Lift Chair #1 ea 10/09/22 02/11/23 Rx miscellaneous medical supply #1 ea 10/16/22 02/11/23 Rx ketoconazole 2 % topical cream 1 applic topical BID 4 weeks #15 11/19/22 02/18/23 Rx grams aspirin 81 mg chewable tablet 81 mg PO DAILY 12/16/22 02/18/23 History fluticasone propionate 100 1 inh inhalation BID #60 ea 12/16/22 02/18/23 Rx mcg/actuation blister powder for inhalation (Flovent Diskus) gabapentin 600 mg tablet 600 mg PO TID 12/16/22 02/18/23 History melatonin 3 mg tablet 3 mg PO HS 12/16/22 02/18/23 History methadone 10 mg tablet 72 mg PO DAILY 12/16/22 02/18/23 History metoprolol tartrate 50 mg tablet 25 mg PO BID #30 tabs 12/16/22 02/18/23 Rx multivitamin with minerals 1 tab PO DAILY 12/16/22 02/18/23 History trazodone 50 mg tablet 50 mg PO HS #30 tabs 12/16/22 02/18/23 Rx sertraline 100 mg tablet 200 mg PO DAILY #60 tabs 12/17/22 02/18/23 Rx epinephrine 0.3 mg/0.3 mL 0.3 mg (0.3 mL) IM .COMPLEX PRN 12/26/22 02/18/23 Rx injection, auto-injector anaphylaxis #2 ea apixaban 2.5 mg tablet 2.5 mg PO BID #60 tabs 01/08/23 02/18/23 Rx cyanocobalamin (vitamin B-12) 1,000 mcg PO DAILY #90 tabs 01/08/23 02/18/23 Rx 1,000 mcg tablet magnesium oxide 400 mg (241.3 mg 400 mg PO DAILY #30 tabs 01/08/23 02/18/23 Rx magnesium) tablet nicotine 7 mg/24 hr daily 7 mg transdermal QAM #30 ea 01/08/23 02/18/23 Rx transdermal patch potassium chloride 20 mEq 20 meq PO BID #60 tabs 01/08/23 02/18/23 Rx tablet,extended release aripiprazole 15 mg tablet (Abilify) 15 mg PO DAILY #30 tabs 01/24/23 02/18/23 Rx Oxygen Home #1 ea 01/26/23 02/11/23 Rx benzonatate 100 mg capsule 100 mg PO TID PRN cough #20 caps 01/26/23 02/18/23 Rx ipratropium 0.5 mg-albuterol 3 mg 3 ml NEB Q6H PRN 01/26/23 02/18/23 Rx (2.5 mg base)/3 mL nebulization cough/wheezing/shortness of breath soln #1 box ipratropium 20 mcg-albuterol 100 1 puff inhalation TID PRN 01/26/23 02/18/23 Rx mcg/actuation mist for inhalation cough/wheezing/shortness of breath (Combivent Respimat) #1 g levothyroxine 75 mcg tablet 75 mcg PO DAILY 01/27/23 02/18/23 History clonazepam 0.5 mg tablet 0.5 mg PO HS #30 tabs 02/10/23 02/18/23 Rx bumetanide 2 mg tablet 4 mg PO BID #120 tabs 02/11/23 02/18/23 Rx baclofen 10 mg tablet 10 mg PO BID #60 tabs 02/12/23 02/18/23 Rx Past Med/Surg History Medical History Anemia Anxiety B12 deficiency Bipolar disorder Chronic right arterial ischemic stroke, MCA (middle cerebral artery) Drug abuse and dependence Edema, peripheral Endocarditis MENDEZ (generalized anxiety disorder) History of embolic stroke Rt MCA Hypokalemia Hypoxia Iron deficiency Left spastic hemiparesis Morbid obesity Opioid use disorder, severe, in sustained remission on maintenance therapy Methadone PCOS (polycystic ovarian syndrome) Primary hypothyroidism Snoring Splenic abscess Thalassemia Tobacco dependence Surgical History H/O mitral valve replacement History of section History of repair of ACL History of tubal ligation S/P mitral valve replacement with bioprosthetic valve (06/2022) Family History Grandmother (Paternal) Breast cancer Grandfather (Maternal) Myocardial infarction Graves disease Grandfather (Paternal) Myocardial infarction Other Thalassemia Denies family history of Colon cancer Ovarian cancer Prostate cancer Social History Smoking Status: Current every day smoker Tobacco Type: Cigarettes packs per day: 1; Second Hand Exposure: Yes; Do You Dip or Chew Tobacco: No; Tobacco Cessation Education Requested by Patient: No Hx Alcohol Use: Yes Hx Substance Use: Yes Last Used Substance: Days (ago) Substance Use Type Other:: clean for 10 months Preferred Language: Qatari Communication Ability: Effective Visual Impairment: No Limitations Hearing Ability: Normal Social Media Marketer Required: No Beliefs That Will Affect Care: None marital status: Single Current Living Situation: Parent Current Living Situation Comment: boyfriend and her 3 daughters 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 Other Information That Helps Us Care for You: No Feels Safe at Home: Yes Safety Concerns: Feels Safe At This Time Childhood Exposure to Second-Hand Smoke: No Diet: regular Diet Comment: regular Dental Care, Regularly: No Physical Activity Frequency: Does not Exercise Seatbelt Use: sometimes Sunscreen Use: No Assistive Devices: Hospital Bed and Oxygen - Continuous Review of Systems Review of Systems: All systems reviewed & are unremarkable except as noted in HPI & below Physical Exam Physical Exam: General: chronically ill appearing, morbidly obese female sleepy/lethargic in bed, opens eyes to stimuli/name, answering questions at times/falling back asleep quickly, NAD, wet cough HEENT: head atraumatic, ?thrush appearance to tongue, lips cracked but mm not significantly dry, trachea midline, THICK NECK, +JVD Resp: no tachypnea, periods of apnea witnessed on 2L NC, coarse breath sounds throughout, expiratory wheezing, rales to mid/upper lung [place], on 2L NC CV: regular rhythm/rates in the 70s, +murmur, bilateral LE edema, not significantly pitting, pulses palpable but difficult due to body habitus GI: +BS, obese, large pannus, no overt tenderness to palpable, : no horowitz -- purewick now in place MSK/Neuro: chronic L hemiparesis from prior stroke, following commands as able but very sleepy/difficult exam. pupils equal in size/reactive Psych: alert to person, knows in hospital, very drowsy Results & Data Results & Data Vital Signs (Past 12 Hours) Vital Signs Temp Pulse Pulse Resp BP BP Pulse Ox 02/18/23 13:38 79 20 135/90 97 02/18/23 11:58 98 02/18/23 11:27 79 02/18/23 11:10 73 18 98 02/18/23 11:05 37.1 C 77 16 120/74 97 O2 Del Method O2 Flow Rate 02/18/23 13:38 Room Air 02/18/23 11:58 Nasal Cannula 2 02/18/23 11:27 02/18/23 11:10 Nasal Cannula 2 02/18/23 11:05 Nasal Cannula 2 Laboratory Results 02/18/23 02/18/23 02/18/23 Range/Units 12:18 12:10 11:48 WBC (4.8-10.8) K/ul RBC (4.20-5.40) M/uL Hgb (12.0-16.0) g/dl POC Hgb 12.6 (12.0-16.0) g/dl Hct (37.0-47.0) % POC Hct 37 (37-47) % MCV (80.0-100.0) fL MCH (25.0-34.0) pg MCHC (32.0-36.0) g/dL RDW Std Deviation (36.4-46.3) fL RDW Coeff of Alexia (11.5-14.5) % Plt Count (130-400) K/uL MPV (9.4-12.4) fL Immature Gran % (Auto) % Neut % (Auto) % Lymph % (Auto) % [place] % (Auto) % Eos % (Auto) % Baso % (Auto) % Neut # (Auto) (1.40-6.50) K/uL Lymph # (Auto) (1.20-3.40) K/uL [place] # (Auto) (0.11-0.59) K/uL Eos # (Auto) (0.00-0.50) K/uL Baso # (Auto) (0.00-0.20) K/uL Immature Gran # (Auto) (0.01-0.20) K/uL RBC Morphology VBG pH (7.36-7.41) VBG pCO2 (38-50) mmHg VBG pO2 mmHg VBG HCO3 mmol/L VBG O2 Saturation % VBG Base Excess mEq/L POC Sodium 140 (135-144) mmol/L Sodium (136-145) mmol/L POC Potassium 4.1 (3.3-5.0) mmol/L Potassium (3.5-5.1) mmol/L POC Chloride 96 L (101-112) mmol/L Chloride (98-107) mmol/L Carbon Dioxide (21-32) mmol/L POC Total CO2 33 H (24-31) mmol/L Anion Gap (3-11) POC Anion Gap 16.0 (16-25) mmol/L POC BUN 12 (7-18) mg/dl BUN (6-23) mg/dl Creatinine (0.6-1.2) mg/dl POC Creatinine 1.0 (0.6-1.3) mg/dl Est Cr Clr Drug Dosing Est GFR ( Amer) ml/min Est GFR (Non-Af Amer) ml/min BUN/Creatinine Ratio (10-20) Glucose (70-99(Fasting)) mg/dl POC Glucose (other) 94 (70-99) mg/dl Calcium (8.6-10.3) mg/dl POC Ioniz Calcium Lucia 1.15 (1.12-1.32) mmol/l Magnesium (1.7-2.4) mg/dl Total Bilirubin (0.2-1.0) mg/dl AST (13-39) U/L ALT (7-52) U/L Alkaline Phosphatase (34-104) U/L Ammonia (18-72) umol/L Troponin I High Sens (0-14) pg/ml B-Natriuretic Peptide (0-100) pg/ml Total Protein (6.0-8.3) gm/dl Albumin (3.4-5.0) gm/dl Globulin (2.5-4.0) gm/dl Albumin/Globulin Ratio (0.9-2) Procalcitonin < 0.05 (0-0.5) ng/ml TSH (0.300-4.500) uIu/ml Free T4 (0.61-1.60) ng/dl SARS-CoV-2, RNA, NAAT NEGATIVE (NEGATIVE) 02/18/23 02/18/23 02/18/23 Range/Units 11:48 11:48 11:48 WBC (4.8-10.8) K/ul RBC (4.20-5.40) M/uL Hgb (12.0-16.0) g/dl POC Hgb (12.0-16.0) g/dl Hct (37.0-47.0) % POC Hct (37-47) % MCV (80.0-100.0) fL MCH (25.0-34.0) pg MCHC (32.0-36.0) g/dL RDW Std Deviation (36.4-46.3) fL RDW Coeff of Alexia (11.5-14.5) % Plt Count (130-400) K/uL MPV (9.4-12.4) fL Immature Gran % (Auto) % Neut % (Auto) % Lymph % (Auto) % [place] % (Auto) % Eos % (Auto) % Baso % (Auto) % Neut # (Auto) (1.40-6.50) K/uL Lymph # (Auto) (1.20-3.40) K/uL [place] # (Auto) (0.11-0.59) K/uL Eos # (Auto) (0.00-0.50) K/uL Baso # (Auto) (0.00-0.20) K/uL Immature Gran # (Auto) (0.01-0.20) K/uL RBC Morphology VBG pH 7.37 (7.36-7.41) VBG pCO2 66 H (38-50) mmHg VBG pO2 39 mmHg VBG HCO3 38 mmol/L VBG O2 Saturation 68.0 % VBG Base Excess 10.2 mEq/L POC Sodium (135-144) mmol/L Sodium (136-145) mmol/L POC Potassium (3.3-5.0) mmol/L Potassium (3.5-5.1) mmol/L POC Chloride (101-112) mmol/L Chloride (98-107) mmol/L Carbon Dioxide (21-32) mmol/L POC Total CO2 (24-31) mmol/L Anion Gap (3-11) POC Anion Gap (16-25) mmol/L POC BUN (7-18) mg/dl BUN (6-23) mg/dl Creatinine (0.6-1.2) mg/dl POC Creatinine (0.6-1.3) mg/dl Est Cr Clr Drug Dosing Est GFR ( Amer) ml/min Est GFR (Non-Af Amer) ml/min BUN/Creatinine Ratio (10-20) Glucose (70-99(Fasting)) mg/dl POC Glucose (other) (70-99) mg/dl Calcium (8.6-10.3) mg/dl POC Ioniz Calcium Lucia (1.12-1.32) mmol/l Magnesium (1.7-2.4) mg/dl Total Bilirubin (0.2-1.0) mg/dl AST (13-39) U/L ALT (7-52) U/L Alkaline Phosphatase (34-104) U/L Ammonia (18-72) umol/L Troponin I High Sens (0-14) pg/ml B-Natriuretic Peptide 71 (0-100) pg/ml Total Protein (6.0-8.3) gm/dl Albumin (3.4-5.0) gm/dl Globulin (2.5-4.0) gm/dl Albumin/Globulin Ratio (0.9-2) Procalcitonin (0-0.5) ng/ml TSH 6.711 H (0.300-4.500) uIu/ml Free T4 0.62 (0.61-1.60) ng/dl SARS-CoV-2, RNA, NAAT (NEGATIVE) 02/18/23 02/18/23 02/18/23 Range/Units 11:48 11:48 11:48 WBC 6.01 (4.8-10.8) K/ul RBC 4.40 (4.20-5.40) M/uL Hgb 9.3 L (12.0-16.0) g/dl POC Hgb (12.0-16.0) g/dl Hct 32.5 L (37.0-47.0) % POC Hct (37-47) % MCV 73.9 L (80.0-100.0) fL MCH 21.1 L (25.0-34.0) pg MCHC 28.6 L (32.0-36.0) g/dL RDW Std Deviation 38.2 (36.4-46.3) fL RDW Coeff of Alexia 14.1 (11.5-14.5) % Plt Count 427 H (130-400) K/uL MPV 9.2 L (9.4-12.4) fL Immature Gran % (Auto) 0.3 % Neut % (Auto) 64.2 % Lymph % (Auto) 23.5 % [place] % (Auto) 6.0 % Eos % (Auto) 5.2 % Baso % (Auto) 0.8 % Neut # (Auto) 3.86 (1.40-6.50) K/uL Lymph # (Auto) 1.41 (1.20-3.40) K/uL [place] # (Auto) 0.36 (0.11-0.59) K/uL Eos # (Auto) 0.31 (0.00-0.50) K/uL Baso # (Auto) 0.05 (0.00-0.20) K/uL Immature Gran # (Auto) 0.02 (0.01-0.20) K/uL RBC Morphology Unremarkable VBG pH (7.36-7.41) VBG pCO2 (38-50) mmHg VBG pO2 mmHg VBG HCO3 mmol/L VBG O2 Saturation % VBG Base Excess mEq/L POC Sodium (135-144) mmol/L Sodium 138 (136-145) mmol/L POC Potassium (3.3-5.0) mmol/L Potassium 3.8 (3.5-5.1) mmol/L POC Chloride (101-112) mmol/L Chloride 98 (98-107) mmol/L Carbon Dioxide 33 H (21-32) mmol/L POC Total CO2 (24-31) mmol/L Anion Gap 7 (3-11) POC Anion Gap (16-25) mmol/L POC BUN (7-18) mg/dl BUN 12 (6-23) mg/dl Creatinine 0.90 (0.6-1.2) mg/dl POC Creatinine (0.6-1.3) mg/dl Est Cr Clr Drug Dosing Not Reportable Est GFR ( Amer) 95.3 ml/min Est GFR (Non-Af Amer) 82.3 ml/min BUN/Creatinine Ratio 13.3 (10-20) Glucose 90 (70-99(Fasting)) mg/dl POC Glucose (other) (70-99) mg/dl Calcium 9.3 (8.6-10.3) mg/dl POC Ioniz Calcium Lucia (1.12-1.32) mmol/l Magnesium 2.1 (1.7-2.4) mg/dl Total Bilirubin 0.2 (0.2-1.0) mg/dl AST 13 (13-39) U/L ALT 9 (7-52) U/L Alkaline Phosphatase 108 H (34-104) U/L Ammonia 36.0 (18-72) umol/L Troponin I High Sens 2.5 (0-14) pg/ml B-Natriuretic Peptide (0-100) pg/ml Total Protein 8.1 (6.0-8.3) gm/dl Albumin 3.7 (3.4-5.0) gm/dl Globulin 4.4 H (2.5-4.0) gm/dl Albumin/Globulin Ratio 0.8 L (0.9-2) Procalcitonin (0-0.5) ng/ml TSH (0.300-4.500) uIu/ml Free T4 (0.61-1.60) ng/dl SARS-CoV-2, RNA, NAAT (NEGATIVE) Diagnostic Findings Chest X-Ray 02/18/23 11:16 XR chest 1V portable CLINICAL HISTORY: weakness COMPARISON STUDY: Chest radiograph February 11, 2023. FINDINGS: There are median sternotomy wires. Mild cardiomegaly is unchanged. Pulmonary vascular congestion is similar to prior exam. There may be mild right basilar opacity. There is no pneumothorax or pleural effusion. IMPRESSION: 1. Stable cardiomegaly and pulmonary vascular congestion. 2. Possible mild right basilar opacity. This could reflect atelectasis or a f ocus of pneumonia. ACT 112: Negative or not required by law. Electronically signed by: Justin Valle M.D. 02/18/2023 11:[address] 02/18/23 11:16 CT SCAN OF THE BRAIN WITHOUT IV CONTRAST CLINICAL HISTORY: Change in mental status. COMPARISON STUDY: CT of the brain dated 12/16/2022. TECHNIQUE: Unenhanced axial CT scan of the brain is performed from the vertex to the skull base. A dose lowering technique was utilized adhering to the principles of ALARA. FINDINGS: Brain parenchyma: Right MCA territory encephalomalacia is consistent with a r emote infarct. There is ex vacuo dilatation of the right lateral ventricle. Wallerian degeneration is noted in the right aspect of the marlon. There is no hemorrhage, mass effect, or evidence of acute territorial ischemia by CT criteria. Ch-white matter differentiation is preserved. No extra-axial fluid collection is seen. Ventricles, sulci, cisterns: Normal in configuration. Intracranial vasculature: The visualized intracranial vasculature at the skull base is normal in appearance. Calvarium: Unremarkable. Sinuses and mastoids: The visualized paranasal sinuses are clear. The mastoid a ir cells are well pneumatized. Orbits: The bony orbits are grossly intact. IMPRESSION: 1. There is no hemorrhage, mass effect, or evidence of acute territorial ischemia by CT criteria. 2. Remote right MCA territory infarct. ACT 112: Negative or not required by law. Electronically signed by: Gaudencio Phillips M.D. 02/18/2023 1:[address] 02/18/23 11:16 CT OF THE LUMBAR SPINE CLINICAL HISTORY: Low back pain. COMPARISON STUDY: Lumbar spine MRI and CT of the abdomen and pelvis November 19, 2022. TECHNIQUE: Helical axial images of the lumbar spine were obtained. Sagittal and coronal reconstructions were viewed. Automated exposure control was utilized for the study. A dose lowering technique was utilized adhering to the principles of ALARA. FINDINGS: Alignment of the lumbar spine is anatomic. Slight concavity of the superior endplate of L1 is unchanged. No lumbar spine fracture is present. No osseous lesions are identified. There is moderate disc space narrowing with mild osteophytosis at L5-S1. This is unchanged since prior CT. Facet joints are intact. There is mild to moderate multilevel facet arthrosis. Mild multilevel degenerative disc disease is present. Central canal and neural foramen are suboptimally assessed given CT technique. No central canal stenosis is identified. IMPRESSION: No acute lumbar spine fracture or subluxation. No significant change in appearance of the lumbar spine. ACT 112: Negative or not required by law. Electronically signed by: Justin Valle M.D. 02/18/2023 1:16 PM Supervising Physician Co-Signing Physician Notes I personally saw and examined the patient. I verified all rojo points and agree with Amelia Kapadia PA-C with the following exceptions and/or additions: 37 year old female with complex history as noted above. Presents to the ER with weight gain, shortness of breath, lower extremity edema and altered mental state. O/E Chronically ill appearing, morbidly obese, using accessory muscles, HS RRR, systolic murmur loudest in apex, rhonchi b/l, no wheezing, Abdomen SNT A/P Acute on chronic heart failure with preserved ejection fraction - Bumex 4mg IV BID, strict I&Os, daily weights, Low Na diet Altered mental state - unclear how far from her baseline she is. No acute intracranial abnormality on CT head. Possible polypharmacy. No definitive infective etiology found but will cover for pneumonia empirically, likely can be discontinue if procalcitonin does not increase as suspect CT findings more likely pulmonary edema alone. UA does not appear infected. No cellulitis seen on exam. PG Care Time/CCT Total # of Minutes Spent Total Time Spent with Patient: Total time spent is greater than 50% in coordination of care (as documented) at patient's floor/unit and/or counseling patient: Coding Level of Care Code 46577 INT INP/OBS CARE 3/75MIN Diagnoses Lethargy R53.83 Acute on chronic heart failure with preserved ejection fraction (HFpEF) I50.33 Hypothyroidism E03.9 Sleep apnea G47.30 Hypervolemia E87.70 Chronic right arterial ischemic stroke, MCA (middle cerebral artery) I69.30 Left-sided weakness R53.1 H/O mitral valve replacement Z95.2 Anxiety F41.9 Iron deficiency E61.1
[2023-02-18 17:19] LABS: Base Excess ABG 9.4 mEq/L (-9-1.8); HCO3 ABG 35 mmol/L (19-24); Oxygen Saturation ABG 97.6 % (90-95); PCO2 ABG 52 mmHg (35-46); PO2 ABG 84 mmHg (80-95); pH ABG 7.44 (7.35-7.45)
[2023-02-18 17:41] LABS: Allen Test Pos (Pos)
[2023-02-18 17:52] LABS: Lyme Ab IgG w/WB Rflx Negative (Negative)
[2023-02-18 18:34] LABS: Lyme Ab IgM w/WB Rflx Negative (Negative)
--- NOTE | 2023-02-18 18:44 | CT Scan Report ---
CT SCAN OF THE CHEST WITHOUT IV CONTRAST CLINICAL HISTORY: Dyspnea. Hypoxia. COMPARISON STUDY: Chest x-ray dated 02/18/2023. Chest CT dated 08/02/2021. Abdominal CT dated 3. TECHNIQUE: CT scan of the thorax was performed from the thoracic inlet to the upper abdomen. Images are reviewed in the axial, sagittal, and coronal planes. IV contrast was not administered for this ex amination as per the referring clinician. A dose lowering technique was utilized adhering to the juliana pablo of [employer]. The examination is degraded by large body habitus, and by streak artifact from the body wall abutting the CT gantry. There is also motion artifact. CT DOSE: 1216.68 mGy.cm FINDINGS: Thyroid: Imaged portions of the thyroid gland are normal in size and attenuation. Thoracic aorta: The thoracic aorta is normal in caliber and demonstrates standard 3-vessel arch anato my. Heart: The patient is status post midline sternotomy. There is evidence of previous mitral valve surg malina appear The heart is top normal in size and without pericardial effusion. Lungs and pleural spaces: Evaluation of the lung parenchyma is degraded by motion artifact. Foci of l inear scarring/atelectasis are seen throughout both lungs, greatest in the right upper lobe and at farzaneh th lung bases. There is no airspace consolidation typical for pneumonia or pleural effusion. Minimal secretions are noted in the trachea. There is mild intralobular septal thickening. Mediastinum: There is no mediastinal lymphadenopathy. Rylie: Not well assessed without IV contrast. Axillae: There is no axillary lymphadenopathy. Upper abdomen: The spleen is enlarged measuring 14.6 cm in length. A 6.5 cm cystic lesion in the sple en seen on image #211 is indeterminate. This is unchanged from 11/20/2022 but new from 08/02/2021. The liver appears enlarged and steatotic. Skeletal structures: No lytic or blastic bony lesions are seen. IMPRESSION: 1. There is no airspace consolidation typical for pneumonia or pleural effusion. 2. Mild intralobular septal thickening could represent acute versus chronic congestive change. Clinic al correlation will be required. 3. Splenomegaly. 4. An indeterminate 6.5 cm cystic lesion in the spleen is unchanged from 11/20/2022 but new from 2021. 5. Additional findings as above. ACT 112: Negative or not required by law. Electronically signed by: Gaudencio Phillips M.D. 02/18/2023 6:43 PM
[2023-02-18 18:50] LABS: Appearance Urine Clear (Clear); Bilirubin Urine Negative (Negative); Blood Urine Negative (Negative); Color Urine Yellow; Glucose Urine UA Negative (Negative); Ketones Urine Negative (Negative); Leukocyte Esterase Urine Negative (Negative); Nitrite Urine Negative (Negative); Protein Urine Negative (Negative); Specific Gravity Urine 1.009 (1.000-1.030); Urobilinogen Urine Negative (Negative)
[2023-02-18] MEDS ORDERED: MAGNESIUM HYDROXIDE SUSP 30 ML UDC PO PRN (19:44)
[2023-02-18] MEDS ORDERED: AZITHROMYCIN 500 MG in DEXTROSE 5% 250 ML IV SCH (19:44)
[2023-02-18] MEDS ORDERED: ALBUT/IPRATROP 3MG/0.5MG NEB 3 ML VIAL NEB PRN (19:44)
[2023-02-18] MEDS ORDERED: ACETAMINOPHEN 325 MG TAB PO PRN (19:44)
[2023-02-18] MEDS ORDERED: ALUMINUM/MAGNESIUM SUSP 30 ML UDC PO PRN (19:44)
[2023-02-18] MEDS: SODIUM CHLOR 7% 4 ML NEB NEB SCH (20:22)
[2023-02-18] MEDS: BUMETANIDE 4 MG in SYRINGE 0 ML IV SCH (20:52)
[2023-02-18] MEDS ORDERED: METHADONE HCL 10 MG TAB PO SCH (21:00)
[2023-02-18] MEDS: cefTRIAXone SODIUM 2,000 MG in DEXTROSE 5% 50 ML IV SCH (21:30)
[2023-02-18] MEDS: DOXYCYCLINE HYCLATE 100 MG in DEXTROSE 5% 100 ML IV SCH (21:30)
[2023-02-18] MEDS: APIXABAN 2.5 MG TAB PO SCH (21:37)
[2023-02-18] MEDS: guaiFENesin 600 MG TABCR PO SCH (21:38)
[2023-02-18] MEDS: GABAPENTIN 300 MG CAP PO SCH (21:38)
[2023-02-18] MEDS: FLUTICASONE FUROATE 100MCG 14 PUFFS/INHALER INH SCH (21:38)
[2023-02-18] MEDS: clonazePAM 0.5 MG TAB PO SCH (21:38)
[2023-02-18] MEDS: MELATONIN 3 MG TAB PO SCH (21:39)
[2023-02-18] MEDS: POTASSIUM CHLORIDE CRTAB 20 MEQ TABCR PO SCH (21:41)
[2023-02-18] MEDS: traZODone HCL 50 MG TAB PO SCH (21:41)
[2023-02-18] MEDS: NYSTATIN SUSP 500,000 U/5 ML UDC PO SCH (21:41)
[2023-02-18] MEDS: METOPROLOL TARTRATE 25 MG TAB PO SCH (21:48)
[2023-02-19] MEDS ORDERED: MELATONIN 3 MG TAB PO ONE (02:28)
[2023-02-19] MEDS: LEVOTHYROXINE SODIUM 88 MCG TABLET PO SCH (06:10)
[2023-02-19 06:56] LABS: Basophils # (auto) 0.04 K/uL (0.00-0.20); Basophils % (auto) 0.6 %; Eosinophils # (auto) 0.36 K/uL (0.00-0.50); Eosinophils % (auto) 5.4 %; Hematocrit (blood only) 31.2 % (37.0-47.0); Hemoglobin 9.1 g/dl (12.0-16.0); Immature Granulocytes # (auto) 0.02 K/uL (0.01-0.20); Immature Granulocytes % (auto) 0.3 %; Lymphocytes # (auto) 2.03 K/uL (1.20-3.40); Lymphocytes % (auto) 30.6 %; Mean Corpuscular Hemoglobin 21.3 pg (25.0-34.0); Mean Corpuscular Hgb Conc 29.2 g/dL (32.0-36.0); Mean Corpuscular Volume 72.9 fL (80.0-100.0); Mean Platelet Volume 9.5 fL (9.4-12.4); Monocytes # (auto) 0.44 K/uL (0.11-0.59); Monocytes % (auto) 6.6 %; Neutrophils # (auto) 3.74 K/uL (1.40-6.50); Neutrophils % (auto) 56.5 %; Platelet Count 433 K/uL (130-400); RDW Coefficient of Variation 14.3 % (11.5-14.5); Red Blood Count 4.28 M/uL (4.20-5.40); Reticulocyte % 1.7 % (0.5-2.0); Reticulocytes # 0.07 10^6/uL (0.02-0.10); White Blood Count 6.63 K/ul (4.8-10.8)
[2023-02-19 07:06] LABS: Albumin Globulin Ratio 0.8 (0.9-2); Albumin Level 3.6 gm/dl (3.4-5.0); BUN Creatinine Ratio 15.3 (10-20); Bilirubin,Total 0.3 mg/dl (0.2-1.0); Calcium 9.2 mg/dl (8.6-10.3); Creatinine Clr Calc Pharmacy 138.2 ml/min; Est GFR (Non-African American) 74.2 ml/min; Globulin 4.3 gm/dl (2.5-4.0); Potassium 3.6 mmol/L (3.5-5.1); Total Protein 7.9 gm/dl (6.0-8.3)
--- OUTSIDE RECORDS SUMMARY | 2023-02-19 07:12 | External Medical Summary ---
Author Name Unknown Address Unknown Organization [id number][facility] [address] [place] [address] Laboratory Report Ordering Provider Test Date Status MYA PEÑA 12/01/2022 07:13:55 Final Observation Date Value Abnormality Reference (Units ) Status WBC, Total 12/01/2022 07:13:55 6.68 4.00-10.8 0 (K/uL) Final RBC 12/01/2022 07:13:55 4.33 3.85-5.15 (M/uL) Final Hemoglobin 12/01/2022 07:13:55 9.8 Below low normal 12 .0-15.3 (g/dL) Final HCT 12/01/2022 07:13:55 33.5 Below low normal 36. 0-45.2 (%) Final MCV 12/01/2022 07:13:55 77.4 81.5-97.5 (fL) Final MCH 12/01/2022 07:13:55 22.6 27.0-34.0 (pg) Final MCHC 12/01/2022 07:13:55 29.3 32.0-36.0 (g/dL) Final RDW 12/01/2022 07:13:55 18.0 11.5-15.5 (%) Final Platelets 12/01/2022 07:13:55 471 Above high normal 14 0-400 (K/uL) Final MPV 12/01/2022 07:13:55 9.2 6.6-11.1 ( fL) Final Performing Location [facility] [address] [place] [id number]
--- OUTSIDE RECORDS SUMMARY | 2023-02-19 07:12 | External Medical Summary | Summary of Care ---
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 Name Role Phone Stacey Arce MD Primary Care Provider Encounter Details Date Type Department Care Team Description 04/25/2021 Scan Encounter Family Medicine [address] [phone] Caitlin Lloyd PA-C [address] [place] [address] [place] [address] <No scans attached> Allergies No Known Active Allergiesdocumented as of this encounter (statuses as of 04/26/2021) Medications Medication Sig Dispensed Refills Start Date End Date Status TRAMADOL HCL 50 MG PO TABSIndications:Carpal tunnel syndrome one pill 4 times a day as needed 100 0 02/24/2009 Active SULINDAC 200 MG PO TABSIndications:Backac he,Myalgia and myositis,Joint pain, knee one pill two times daily 60 5 03/16/2009 Active documented as of this encounter (statuses as of 04/26/2021) Active Problems Problem Noted Date Backache 03/16/2009 Carpal tunnel syndrome 01/07/2009 Bipolar I disorder, most recent episode mixed, moderate 04/10/2007 Major depressive disorder Overview: ICD-10 update of inactive term documented as of this encounter (statuses as of 04/26/2021) Resolved Problems Problem Noted Date Resolved Date Routine child health exam 12/06/20022008 documented as of this encounter (statuses as of 04/26/2021) Immunizations Name Administration Dates Next Due Hepatitis B, 0-19 yrs 02/12/1999,05/16/1998 Pneumococcal Polysaccharide PPV23 (Pneumovax) 02/03/2009(Deferred: Patient Refused) TD - Tetanus/Diptheria (ADULT) 02/12/1999 Varicella Vaccine (Chicken Pox) 05/16/1998 documented as of this encounter Social History Tobacco Use Types Packs/Day Years Used Date Current Every Day Smoker Cigarettes 1.5 7 Comments:age 16 Alcohol Use Drinks/Week oz/Week Comments Yes occasionally Sex Assigned at Date Recorded Not on file Job Start Date Occupation Industry Not on file Not on file Not on file documented as of this encounter Plan of Treatment Upcoming Encounters Date Type Specialty Care Team Description 04/26/2021 Office Visit Family Medicine Caitlin Lloyd, PAAnuradha [address] [place] [address] ISATU Kauffman [phone] Health Maintenance Due Date Last Done Comments Pneumococcal Vaccine: Pediatrics (0 to 5 Years) and At-Risk Patients (6 to 64 Years) (1 of 2 - PPSV23) 1992 DTaP,Tdap,and Td Vaccines (2 - Tdap) 1997 02/12/1999 COVID-19 Vaccine (1) 1998 PAP SMEAR-EVERY 3 YRS,AGES 21-65 06/20/2011 06/20/2008, 10/22/2007 (Done elsewhere) Influenza Vaccine (FLU shot) (#1) 2021 MENINGOCOCCAL (MENACTRA/MENVEO) Aged Out No longer eligible b ased on patient's age to complete this topic documented as of this encounter Implants Not on filedocumented as of this encounter Advance Directives Documents on File Type Date Recorded 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
--- OUTSIDE RECORDS SUMMARY | 2023-02-19 07:12 | External Medical Summary ---
Author Name Unknown Address Unknown Organization [id number]:[facility] [place] [address] Laboratory Report Ordering Provider Test Date Status JOE ESCAMILLA 12/10/2022 05:50:00 Final Observation Date Value Abnormality Reference (Units ) Status BUN 12/10/2022 05:50:00 13 6-20 (mg/dL) Final Creatinine 12/10/2022 05:50:00 0.9 0.5-1.0 (mg/dL) Final Glomerular filtration rate/1.73 sq M.predicted [Volume Rate/Area] in Serum, Plasma or Blood by Creatinine-based formula (CKD-EPI) 12/10/2022 05:50:00 87 >=60 (mL/min) Final Performing Location [facility] [place] [address]
--- OUTSIDE RECORDS SUMMARY | 2023-02-19 07:12 | External Medical Summary ---
Author Name Unknown Address Unknown Organization [id number]:[facility] [address] [place] [address] Laboratory Report Ordering Provider Test Date Status MYA PEÑA 12/01/2022 07:13:55 Final Observation Date Value Abnormality Reference (Units ) Status BUN 12/01/2022 07:13:55 19 6-20 (mg/dL) Final Creatinine 12/01/2022 07:13:55 1.0 0.5-1.0 (mg/dL) Final Glomerular filtration rate/1.73 sq M.predicted [Volume Rate/Area] in Serum, Plasma or Blood by Creatinine-based formula (CKD-EPI) 12/01/2022 07:13:55 72 >=60 (mL/min) Final Performing Location [facility] [address] [place] [id number]
[2023-02-19 07:22] LABS: Polychromasia 1+; Tear Drop Cells 1+
[2023-02-19 07:24] LABS: Ferritin 12.8 ng/ml (8-388)
[2023-02-19] MEDS: SODIUM CHLOR 7% 4 ML NEB NEB SCH ×2 (07:47→19:14)
[2023-02-19] MEDS ORDERED: NICOTINE 14 MG/24 HR PATCH TD SCH (09:00)
[2023-02-19] MEDS: METOPROLOL TARTRATE 25 MG TAB PO SCH ×2 (09:10→20:41)
[2023-02-19] MEDS: THIAMINE HCL 100 MG TAB PO SCH ×2 (09:13→20:42)
[2023-02-19] MEDS: MULTIVITAMIN TAB PO SCH (09:13)
[2023-02-19] MEDS: ASPIRIN 81 MG CHEW PO SCH (09:13)
[2023-02-19] MEDS: MAGNESIUM OXIDE 400 MG TAB PO SCH (09:13)
[2023-02-19] MEDS: ARIPiprazole 15 MG TAB PO SCH (09:13)
[2023-02-19] MEDS: FLUTICASONE FUROATE 100MCG 14 PUFFS/INHALER INH SCH (09:13)
[2023-02-19] MEDS: POTASSIUM CHLORIDE CRTAB 20 MEQ TABCR PO SCH ×2 (09:13→20:41)
[2023-02-19] MEDS: SERTRALINE HCL 100 MG TABLET PO SCH (09:13)
[2023-02-19] MEDS: guaiFENesin 600 MG TABCR PO SCH ×2 (09:14→20:39)
[2023-02-19] MEDS: GABAPENTIN 300 MG CAP PO SCH ×3 (09:14→20:39)
[2023-02-19] MEDS: APIXABAN 2.5 MG TAB PO SCH ×2 (09:14→20:38)
[2023-02-19] MEDS: NYSTATIN SUSP 500,000 U/5 ML UDC PO SCH ×4 (09:14→20:41)
[2023-02-19] MEDS: BUMETANIDE 4 MG in SYRINGE 0 ML IV SCH ×2 (09:14→16:14)
[2023-02-19] MEDS: NICOTINE 7 MG/24 HR TDSY TD SCH (09:15)
[2023-02-19] MEDS: DOXYCYCLINE HYCLATE 100 MG in DEXTROSE 5% 100 ML IV SCH ×2 (09:17→20:29)
[2023-02-19 09:40] LABS: Creatinine Clr Calc Pharmacy 138.2 ml/min; Est GFR (Non-African American) 74.2 ml/min
--- NOTE | 2023-02-19 17:19 | Cardiology Consultation ---
Date of Consultation February 19, 2023 Assessment & Plan (1) Acute on chronic heart failure with preserved ejection fraction (HFpEF): (2) Edema: (3) Hypervolemia: (4) S/P mitral valve replacement with bioprosthetic valve: (5) Tobacco dependence: Plan ASSESSMENT/PLAN: 1. Heart failure with preserved EF: Likely acute on chronic. Difficult exam but improved with diuresis. Continue current regimen. Monitor renal function and electrolytes. Noncompliance likely playing a role as she missed doses of Bumex as an outpatient. We discussed the importance of very close follow-up as she is high risk for continued hospitalization. She is agreeable to weekly meetings (every other in person alternating weekly with telehealth). Continue net negative fluid balance. Strict I's and O's while hospitalized. Daily weights. Less than 2000 mg of sodium daily. Continue heart failure program. High risk for readmission as she has been admitted several times this year and according to some available records, has demonstrated noncompliance. In regards to admitting note, beta-jyoti is not part of HFpEF therapy and therefore no need for metoprolol succinate. Also, SGLT2 inhibitor has not been initiated due to issues with recurrent UTI. 2. 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 She has had multiple limited echoes recently. Slightly elevated transvalvular gradient in November 2022. SBE prophylaxis. Monitor as an outpatient. 3. Depression: Have correspondence from home health nursing requesting for comfort measures, reportedly coming from patient in the outpatient setting. She does not recall this. Psychiatric consultation is pending. As per primary hospitalist service. 4. Anticoagulation: No cardiac indication for chronic anticoagulation therapy k nown at this time. According to records, was initiated in July 2022 when discharged from mitral valve replacement hospitalization for DVT prophylaxis. Will defer ongoing use to primary hospitalist service. 5. Tobacco abuse: Recommend smoking cessation. 6. Disposition: Cardiology will continue to follow along. Patient care discussed earlier in the day with Dr. Taylor of the primary hospitalist service. History of Present Illness Reason for Consultation: HF Requesting Physician: Amelia Kapadia Attending Physician: Kurt Taylor MD History of Present Illness Ms. Salcido is a pleasant 37-year-old female with a history significant for mitral valve endocarditis (diagnosed July 2021) and IV drug abuse, severe mitral regurgitation (diagnosed November 2021) s/p bioprosthetic mitral valve replacement (07/23/2022 [facility]), stroke (septic emboli October 2021) with left hemiparesis, thalassemia, splenic abscess drainage, bipolar disorder, and polycystic ovarian syndrome. She has had the following studies/procedures: 1. Echo 04/19/2022: Mildly dilated LV. EF 65-70%. LV not fully visualized. Ill-defined mobile echodensity involving the mitral valve, suspicious for vegetation and possibly significant MR, but not fully investigated on this limited echo. Moderate to severe pulmonary hypertension (RVSP > 55 mmHg). Patient refused further images. 2. Mitral valve replacement 07/23/2022 [facility]: Performed due to mitral valve endocarditis and severe mitral regurgitation. Underwent #33 epic Biocor porcine bioprosthesis. Exclusion of the left atrial appendage. 3. Echo 01/18/2023 [facility]: Limited study. Normal left ventricular size and systolic function. No obvious regional wall motion abnormalities. RV probably normal in size with hypokinesis. At least mild MR. She was admitted on 02/18/2023 after presenting to the emergency department for confusion and shortness of breath. She has been followed in the heart failure program but unfortunately is not able to come on a weekly basis due to difficulty with travel per her report. She has had episodes of significant fatigue and states that she has been disoriented. She admits that she has not been compliant with Bumex on a regular basis and has missed a few doses. Had received a message in the outpatient setting that home health nurses on 02/13/2023 stating that she had been more fatigued, falling as leep during eating but her blood pressure and heart rate were normal. There was no increase in edema and that she was refusing to go back to the emergency department and was requesting comfort measures. I refused to write for comfort measures as she had not been seen in the office by me and when last evaluated, there have been concerns for depression. When discussing this today, she does not recall requesting comfort measures. She does not have a scale at home that suits her with her hemiparesis but she states that her mother has ordered 1. She had noted increased edema and worsening shortness of breath. She maintains a low-sodium diet. She states that she felt feverish just before she presented. Since here, she has received IV Bumex 4 mg x 3 doses. She has diuresed approximately 2 L net negative fluid balance. She feels much better. She believes that her shortness of breath is significantly improved but not yet back to baseline. She denies chest pain, syncope, palpitations, melena, hematochezia, or hematuria. Review of systems:As above. Review of systems otherwise negative/unremarkable. Family history:Grandfathers had MS. Social history: Smoking 2 cigarettes daily while trying to quit completely. She had smoked for approximately 16 pack years. History of IV drug abuse but sober since 2021. Denies alcohol abuse. Lives at home with her mother and 3 daughters. She was unaccompanied in her hospital room. Allergies Allergy/AdvReac Type Severity Reaction Status Date / Time sulfamethoxazole Allergy Severe Anaphylaxis Verified 02/18/23 15:02 [From Bactrim] trimethoprim [From Bactrim] Allergy Severe Anaphylaxis Verified 02/18/23 15:02 atorvastatin AdvReac Intermediate Muscle Pain Verified 02/18/23 15:02 Home Medications Medication Instructions Recorded Confirmed Type Wheelchair (Manual) #1 ea 03/25/22 02/11/23 Rx Hospital Bed Homecare (Hospital #1 ea 04/18/22 02/11/23 Rx Bed) Wheelchair (Manual) (Manual #1 ea 04/18/22 02/11/23 Rx Wheelchair) Lift Chair #1 ea 10/09/22 02/11/23 Rx miscellaneous medical supply #1 ea 10/16/22 02/11/23 Rx ketoconazole 2 % topical cream 1 applic topical BID 4 weeks #15 11/19/22 Rx grams aspirin 81 mg chewable tablet 81 mg PO DAILY 12/16/22 02/18/23 History fluticasone propionate 100 1 inh inhalation BID #60 ea 12/16/22 02/18/23 Rx mcg/actuation blister powder for inhalation (Flovent Diskus) gabapentin 600 mg tablet 600 mg PO TID 12/16/22 02/18/23 History melatonin 3 mg tablet 3 mg PO HS 12/16/22 02/18/23 History methadone 10 mg tablet 72 mg PO DAILY 12/16/22 02/18/23 History metoprolol tartrate 50 mg tablet 25 mg PO BID #30 tabs 12/16/22 02/18/23 Rx multivitamin with minerals 1 tab PO DAILY 12/16/22 02/18/23 History trazodone 50 mg tablet 50 mg PO HS #30 tabs 12/16/22 02/18/23 Rx sertraline 100 mg tablet 200 mg PO DAILY #60 tabs 12/17/22 02/18/23 Rx epinephrine 0.3 mg/0.3 mL 0.3 mg (0.3 mL) IM .COMPLEX PRN 12/26/22 02/18/23 Rx injection, auto-injector anaphylaxis #2 ea apixaban 2.5 mg tablet 2.5 mg PO BID #60 tabs 01/08/23 02/18/23 Rx cyanocobalamin (vitamin B-12) 1,000 mcg PO DAILY #90 tabs 01/08/23 02/18/23 Rx 1,000 mcg tablet magnesium oxide 400 mg (241.3 mg 400 mg PO DAILY #30 tabs 01/08/23 02/18/23 Rx magnesium) tablet nicotine 7 mg/24 hr daily 7 mg transdermal QAM #30 ea 01/08/23 02/18/23 Rx transdermal patch potassium chloride 20 mEq 20 meq PO BID #60 tabs 01/08/23 02/18/23 Rx tablet,extended release aripiprazole 15 mg tablet (Abilify) 15 mg PO DAILY #30 tabs 01/24/23 02/18/23 Rx Oxygen Home #1 ea 01/26/23 02/11/23 Rx benzonatate 100 mg capsule 100 mg PO TID PRN cough #20 caps 01/26/23 02/18/23 Rx ipratropium 0.5 mg-albuterol 3 mg 3 ml NEB Q6H PRN 01/26/23 02/18/23 Rx (2.5 mg base)/3 mL nebulization cough/wheezing/shortness of breath soln #1 box ipratropium 20 mcg-albuterol 100 1 puff inhalation TID PRN 01/26/23 02/18/23 Rx mcg/actuation mist for inhalation cough/wheezing/shortness of breath (Combivent Respimat) #1 g levothyroxine 75 mcg tablet 75 mcg PO DAILY 01/27/23 02/18/23 History clonazepam 0.5 mg tablet 0.5 mg PO HS #30 tabs 02/10/23 02/18/23 Rx bumetanide 2 mg tablet 4 mg PO BID #120 tabs 02/11/23 02/18/23 Rx baclofen 10 mg tablet 10 mg PO BID #60 tabs 02/12/23 02/18/23 Rx Patient History Medical History Anemia Anxiety B12 deficiency Bipolar disorder Chronic right arterial ischemic stroke, MCA (middle cerebral artery) Drug abuse and dependence Edema, peripheral Endocarditis MENDEZ (generalized anxiety disorder) History of embolic stroke Rt MCA Hypokalemia Hypoxia Iron deficiency Left spastic hemiparesis Morbid obesity Opioid use disorder, severe, in sustained remission on maintenance therapy Methadone PCOS (polycystic ovarian syndrome) Primary hypothyroidism Snoring Splenic abscess Thalassemia Tobacco dependence Surgical History H/O mitral valve replacement History of section History of repair of ACL History of tubal ligation S/P mitral valve replacement with bioprosthetic valve (06/2022) Family History Grandmother (Paternal) Breast cancer Grandfather (Maternal) Myocardial infarction Graves disease Grandfather (Paternal) Myocardial infarction Other Thalassemia Denies family history of Colon cancer Ovarian cancer Prostate cancer Social History Smoking Status: Current every day smoker Tobacco Type: Cigarettes packs per day: 1; Second Hand Exposure: Yes; Do You Dip or Chew Tobacco: No; Tobacco Cessation Education Requested by Patient: No Hx Alcohol Use: Yes Hx Substance Use: Yes Last Used Substance: Days (ago) Substance Use Type Other:: clean for 10 months Preferred Language: Georgian Communication Ability: Effective Visual Impairment: No Limitations Hearing Ability: Normal Ointment Mill Tender Required: No Beliefs That Will Affect Care: None marital status: Single Current Living Situation: Parent Current Living Situation Comment: boyfriend and her 3 daughters 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 Alert. HEENT: Anicteric sclera. Neck: Thick neck. No appreciable JVD. Cardiac: No ventricular heave. Regular. No ectopy. Normal S1-S2. No audible murmur. No rubs or gallops. Pulmonary: Clear to auscultation bilaterally. Abdomen: Soft, nontender, nondistended, with normoactive bowel sounds. No bruits noted. Extremities: 2+ radial pulses bilaterally. 2+ posterior tibialis pulses bilaterally. No significant pitting edema. No cyanosis. Results & Data Vital Signs (Past 12 Hours) Vital Signs Temp Pulse Pulse Resp BP Pulse Ox O2 Del Method 02/19/23 16:47 81 02/19/23 16:10 36.8 C 74 19 124/79 97 Nasal Cannula 02/19/23 11:30 37.0 C 71 20 99/68 L 95 Nasal Cannula 02/19/23 09:00 71 02/19/23 09:00 Nasal Cannula 02/19/23 09:10 76 97/63 L 02/19/23 07:48 74 18 96 Nasal Cannula 02/19/23 07:44 37.0 C 72 20 91/62 L 96 Nasal Cannula O2 Flow Rate 02/19/23 16:47 02/19/23 16:10 2 02/19/23 11:30 2 02/19/23 09:00 02/19/23 09:00 1.5 02/19/23 09:10 02/19/23 07:48 1.5 02/19/23 07:44 Intake & Output 02/17/23 02/18/23 02/19/23 02/20/23 06:59 06:59 06:59 06:59 Intake Total 610 / 610 590 / 590 Output Total 2200 / 2200 1000 / 1000 Balance -1590 / -1590 -410 / -410 Weight 396 lb 13.313 oz Laboratory Results Laboratory Results - last 24 hr 02/18/23 02/18/23 02/18/23 16:53 17:09 18:30 WBC RBC Hgb Hct MCV MCH MCHC RDW Std Deviation RDW Coeff of Alexia Plt Count MPV Immature Gran % (Auto) Neut % (Auto) Lymph % (Auto) [place] % (Auto) Eos % (Auto) Baso % (Auto) Reticulocyte % (Auto) Neut # (Auto) Lymph # (Auto) [place] # (Auto) Eos # (Auto) Baso # (Auto) Reticulocyte # Immature Gran # (Auto) Polychromasia Tear Drop Cells Peripher Smr Path Cons Haptoglobin Mike Test Pos Oxygen Given 2 Sodium Potassium Chloride Carbon Dioxide Anion Gap BUN Creatinine Est Cr Clr Drug Dosing Est GFR ( Amer) Est GFR (Non-Af Amer) BUN/Creatinine Ratio Glucose Calcium Magnesium Iron TIBC Unsaturated IBC Transferrin % Sat Ferritin Total Bilirubin AST ALT Alkaline Phosphatase Lactate Dehydrogenase Total Protein Albumin Globulin Albumin/Globulin Ratio Vitamin B1 Urine Color Yellow Urine Appearance Clear Urine pH 8.0 H Ur Specific [place] 1.009 Urine Protein Negative Urine Glucose (UA) Negative Urine Ketones Negative Urine Blood Negative Urine Nitrite Negative Urine Bilirubin Negative Urine Urobilinogen Negative Ur Leukocyte Esterase Negative Nasal Screen MRSA (PCR) Lyme Disease IgG Ab Negative Lyme Disease IgM Ab Negative 02/18/23 02/19/23 02/19/23 22:50 05:49 05:49 WBC 6.63 RBC 4.28 Hgb 9.1 L Hct 31.2 L MCV 72.9 L MCH 21.3 L MCHC 29.2 L RDW Std Deviation 38.0 RDW Coeff of Alexia 14.3 Plt Count 433 H MPV 9.5 Immature Gran % (Auto) 0.3 Neut % (Auto) 56.5 Lymph % (Auto) 30.6 [place] % (Auto) 6.6 Eos % (Auto) 5.4 Baso % (Auto) 0.6 Reticulocyte % (Auto) 1.7 Neut # (Auto) 3.74 Lymph # (Auto) 2.03 [place] # (Auto) 0.44 Eos # (Auto) 0.36 Baso # (Auto) 0.04 Reticulocyte # 0.07 Immature Gran # (Auto) 0.02 Polychromasia 1+ Tear Drop Cells 1+ Peripher Smr Path Cons Haptoglobin Pending Mike Test Oxygen Given Sodium Potassium Chloride Carbon Dioxide Anion Gap BUN Creatinine Est Cr Clr Drug Dosing Est GFR ( Amer) Est GFR (Non-Af Amer) BUN/Creatinine Ratio Glucose Calcium Magnesium Iron TIBC Unsaturated IBC Transferrin % Sat Ferritin Total Bilirubin AST ALT Alkaline Phosphatase Lactate Dehydrogenase Total Protein Albumin Globulin Albumin/Globulin Ratio Vitamin B1 Pending Urine Color Urine Appearance Urine pH Ur Specific [place] Urine Protein Urine Glucose (UA) Urine Ketones Urine Blood Urine Nitrite Urine Bilirubin Urine Urobilinogen Ur Leukocyte Esterase Nasal Screen MRSA (PCR) Negative Lyme Disease IgG Ab Lyme Disease IgM Ab 02/19/23 02/19/23 05:49 08:57 WBC RBC Hgb Hct MCV MCH MCHC RDW Std Deviation RDW Coeff of Alexia Plt Count MPV Immature Gran % (Auto) Neut % (Auto) Lymph % (Auto) [place] % (Auto) Eos % (Auto) Baso % (Auto) Reticulocyte % (Auto) Neut # (Auto) Lymph # (Auto) [place] # (Auto) Eos # (Auto) Baso # (Auto) Reticulocyte # Immature Gran # (Auto) Polychromasia Tear Drop Cells Peripher Smr Path Cons Haptoglobin Mike Test Oxygen Given Sodium 136 Potassium 3.6 Chloride 95 L Carbon Dioxide 33 H Anion Gap 8 BUN 15 Creatinine 0.98 0.98 Est Cr Clr Drug Dosing 138.2 138.2 Est GFR ( Amer) 86.0 86.0 Est GFR (Non-Af Amer) 74.2 74.2 BUN/Creatinine Ratio 15.3 Glucose 97 Calcium 9.2 Magnesium 2.0 Iron 35 TIBC 383 Unsaturated IBC 348 Transferrin % Sat 9 L Ferritin 12.8 Total Bilirubin 0.3 AST 13 ALT 8 Alkaline Phosphatase 100 Lactate Dehydrogenase 231 Total Protein 7.9 Albumin 3.6 Globulin 4.3 H Albumin/Globulin Ratio 0.8 L Vitamin B1 Urine Color Urine Appearance Urine pH Ur Specific [place] Urine Protein Urine Glucose (UA) Urine Ketones Urine Blood Urine Nitrite Urine Bilirubin Urine Urobilinogen Ur Leukocyte Esterase Nasal Screen MRSA (PCR) Lyme Disease IgG Ab Lyme Disease IgM Ab Diagnostic Findings History and physical report reviewed. Labs reviewed and notable for chronic and stable anemia, normal renal function, normal potassium, normal BNP, normal high-sensitivity troponin. Telemetry personally reviewed: Sinus rhythm. CT chest noncontrast 02/18/2023: No airspace consolidation typical for pneumonia. Mild intralobular septal thickening. Splenomegaly. 6.5 cm cystic lesion in th e spleen unchanged from 11/20/2022. Medications Administered Current Inpatient Medications Acetaminophen (Acetaminophen 325 Mg Tab) 650 mg PO Q4H PRN PRN Reason: Pain or Fever Stop: 03/20/23 19:43 Al Hydrox/Mg Hydrox/Simethicone (Aluminum/Magnesium Susp 30 Ml Udc) 15 ml PO Q4H PRN PRN Reason: Dyspepsia Stop: 03/20/23 19:43 Albuterol (Albut/Ipratrop 3mg/0.5mg Neb 3 Ml Vial) 3 ml NEB Q4H PRN; Protocol PRN Reason: cough/wheezing/shortness of breath Stop: 03/20/23 19:43 Last Admin: 02/18/23 20:19 Dose: 3 ml Apixaban (Apixaban 2.5 Mg Tab) 2.5 mg PO BID [facility] Stop: 03/20/23 20:59 Last Admin: 02/19/23 09:14 Dose: 2.5 mg Aripiprazole (Aripiprazole 15 Mg Tab) 15 mg PO DAILY SHIRLEY Stop: 03/21/23 08:59 Last Admin: 02/19/23 09:13 Dose: 15 mg Aspirin (Aspirin 81 Mg Chew) 81 mg PO DAILY SHIRLEY Stop: 03/21/23 08:59 Last Admin: 02/19/23 09:13 Dose: 81 mg Clonazepam (Clonazepam 0.5 Mg Tab) 0.5 mg PO HS SHIRLEY Stop: 03/20/23 20:59 Last Admin: 02/18/23 21:38 Dose: 0.5 mg Fluticasone Furoate (Fluticasone Furoate 100mcg 14 Puffs/Inhaler) 1 puffs INH DAILY [facility]; Protocol Stop: 03/20/23 20:59 Last Admin: 02/19/23 09:13 Dose: 1 puffs Gabapentin (Gabapentin 300 Mg Cap) 300 mg PO TID SHIRLEY Stop: 03/20/23 20:59 Last Admin: 02/19/23 13:16 Dose: 300 mg Guaifenesin (Guaifenesin 600 Mg Tabcr) 600 mg PO Q12 [facility]LEY Stop: 03/20/23 20:59 Last Admin: 02/19/23 09:14 Dose: 600 mg Ceftriaxone Sodium 2,000 mg/ (Dextrose) 70 mls @ 100 mls/hr IV Q24H SHIRLEY; Protocol Stop: 02/25/23 20:14 Last Infusion: 02/18/23 22:26 Dose: Infused Bumetanide 4 mg/ Syringe 16 mls @ 4 mls/min IV BID@0900,1700 SHIRLEY Stop: 03/20/23 19:43 Last Admin: 02/19/23 16:14 Dose: 4 mls/min Doxycycline Hyclate 100 mg/ (Dextrose) 110 mls @ 55 mls/hr IV Q12H SH[facility]LEY Stop: 02/25/23 20:29 Last Infusion: 02/19/23 11:17 Dose: Infused Levothyroxine Sodium (Levothyroxine Sodium 88 Mcg Tablet) 88 mcg PO DAILYBB SH[facility]LEY Stop: 03/21/23 06:29 Last Admin: 02/19/23 06:10 Dose: 88 mcg Magnesium Hydroxide (Magnesium Hydroxide Susp 30 Ml Udc) 30 ml PO Q12H PRN PRN Reason: Constipation Stop: 03/20/23 19:43 Magnesium Oxide (Magnesium Oxide 400 Mg Tab) 400 mg PO DAILY SHIRLEY Stop: 03/21/23 08:59 Last Admin: 02/19/23 09:13 Dose: 400 mg Melatonin (Melatonin 3 Mg Tab) 3 mg PO HS SHIRLEY Stop: 03/20/23 20:59 Last Admin: 02/18/23 21:39 Dose: 3 mg Methadone HCl (Methadone Oral Soln 2 Mg/Ml) 72 mg PO QPM SH[facility]LEY Stop: 03/05/23 20:59 Metoprolol Tartrate (Metoprolol Tartrate 25 Mg Tab) 25 mg PO BID SH[facility]LEY Stop: 03/20/23 20:59 Last Admin: 02/19/23 09:10 Dose: Not Given Miscellaneous (Remove Nicoderm Patch) 1 each N/A DAILY@0859 SH[facility]LEY Stop: 03/21/23 08:58 Last Admin: 02/19/23 09:15 Dose: Not Given Multivitamins (Multivitamin Tab) 1 tab PO DAILY SHIRLEY Stop: 03/21/23 08:59 Last Admin: 02/19/23 09:13 Dose: 1 tab Nicotine (Nicotine 7 Mg/24 Hr Tdsy) 7 mg TD QAM [facility]LEY Stop: 03/21/23 08:59 Last Admin: 02/19/23 09:15 Dose: Not Given Non-Formulary Medication (Patient's Own Controlled Med 3) 1 ea PO QPM SHIRLEY Stop: 03/05/23 20:59 Nystatin (Nystatin Susp 500,000 U/5 Ml Udc) 5 ml PO QID SHIRLEY Stop: 02/28/23 20:59 Last Admin: 08/30/23 16:14 Dose: 5 ml Potassium Chloride (Potassium Chloride Crtab 20 Meq Tabcr) 20 meq PO BID SH[facility]LEY Stop: 03/20/23 20:59 Last Admin: 02/19/23 09:13 Dose: 20 meq Sertraline HCl (Sertraline Hcl 100 Mg Tablet) 200 mg PO DAILY SH[facility]LEY Stop: 03/21/23 08:59 Last Admin: 02/19/23 09:13 Dose: 200 mg Sodium Chloride (Sodium Chlor 7% 4 Ml Neb) 4 ml NEB BIDR SHIRLEY Stop: 03/20/23 18:59 Last Admin: 02/19/23 07:47 Dose: 4 ml Thiamine HCl (Thiamine Hcl 100 Mg Tab) 200 mg PO BID [facility]LEY Stop: 03/21/23 06:59 Last Admin: 02/19/23 09:13 Dose: 200 mg Trazodone HCl (Trazodone Hcl 50 Mg Tab) 50 mg PO HS [facility] Stop: 03/20/23 20:59 Last Admin: 02/18/23 21:41 Dose: 50 mg PG Care Time/CCT Total # of Minutes Spent Total Time Spent with Patient: Total time spent is greater than 50% in coordination of care (as documented) at patient's floor/unit and/or counseling patient: Coding Level of Care Code 03100 INT INP/OBS CARE 3/75MIN Diagnoses Acute on chronic heart failure with preserved ejection fraction (HFpEF) I50.33 Edema R60.9 Hypervolemia E87.70 S/P mitral valve replacement with bioprosthetic valve Z95.3 Tobacco dependence F17.200
[2023-02-19] MEDS: cefTRIAXone SODIUM 2,000 MG in DEXTROSE 5% 50 ML IV SCH (20:29)
[2023-02-19] MEDS: clonazePAM 0.5 MG TAB PO SCH (20:39)
[2023-02-19] MEDS: MELATONIN 3 MG TAB PO SCH (20:39)
[2023-02-19] MEDS: METHADONE ORAL SOLN 2 MG/ML PO SCH (20:40)
[2023-02-19] MEDS: traZODone HCL 50 MG TAB PO SCH (20:42)
[2023-02-19] MEDS ORDERED: KETOROLAC 30 MG/ML VIAL IV ONE (20:44)
--- NOTE | 2023-02-19 20:48 | Hospitalist Progress Note ---
Date of Service February 19, 2023 Assessment & Plan (1) Acute on chronic heart failure with preserved ejection fraction (HFpEF): Plan: she is about 12kg in weight higher than the prior hospitalization in early January 2023. cont bumex 4mg IV BID. appreciate cardiology consultation and recs. noncompliance with diuretics at home? noncompliance with diet? hypothyroidism contributing to decompensation? does she have underlying cirrhosis due to known HepC infection? cont diuresis. liver u/s. BMP am. (2) Sleep apnea: Plan: highly suspected to have such likely severe qualified for nocturnal O2 on prior hospital overnight oximetry study cont NC O2 2 liters needs formal sleep study in future (3) Hypothyroidism: Plan: TSH slowly improving but not at goal Increase synthroid to 88mcg daily with repeat TSH 6 weeks (4) Iron deficiency: Plan: Fe studies this admission c/w iron deficiency. consider IV venofer. Despite the low Fe her H/H are stable. (5) Hepatitis C: Plan: previous HepC testing was positive. check liver u/s - r/o cirrhosis - contributing to volume issues. (6) Depression: Plan: cont all home meds she denies any current depression (7) Splenomegaly: Plan: 2nd to cirrhosis? other etiology? 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 Looking less and less like infection but rather CHF/inflammation. can likely d/c abx tomorrow if no signs of pneumonia or clinical worsening. Admission and Anticipated Discharge Date Admission Date: February 18, 2023 Subjective tele overnight - NSR pt resting comfortably in bed during the visit states breathing is better in comparison to yesterday when she arrived some cough appetite fair c/o back pain denies feeling depressed I offered psych to see her in consult - declined such Review of Systems Review of Systems: gen - no fevers; very weak, fatigued prior to coming in hospital cv - no chest pain pulm - cough/congestion/wheeze GI - no abd pain Physical Exam Physical Exam: gen - morbidly obese, NAD, lying nearly flat in bed today mouth - MMM neck - no obvious JVD heart - RRR, s1 s2, 1/6 VARGAS LUSB lungs - mild rales bases abd - soft, mildly distended, BS+, NT, no HSM ext - 1+ edema b/l, pulses 2+ b/l psych - I have seen Michelle on multiple past admissions and her affect & mentation are similar to previous visits neuro - left sided hemiplegia Results & Data Results & Data Vital Signs (Past 12 Hours) Vital Signs Temp Pulse Pulse Resp BP Pulse Ox O2 Del Method 02/19/23 19:36 36.6 C 78 18 106/70 95 Nasal Cannula 02/19/23 19:17 76 16 95 Nasal Cannula 02/19/23 16:47 81 02/19/23 16:10 36.8 C 74 19 124/79 97 Nasal Cannula 02/19/23 11:30 37.0 C 71 20 99/68 L 95 Nasal Cannula 02/19/23 09:00 71 02/19/23 09:00 Nasal Cannula 02/19/23 09:10 76 97/63 L O2 Flow Rate 02/19/23 19:36 2 02/19/23 19:17 2 02/19/23 16:47 02/19/23 16:10 2 02/19/23 11:30 2 02/19/23 09:00 02/19/23 09:00 1.5 02/19/23 09:10 Laboratory Results Laboratory Results - last 24 hr 02/19/23 02/19/23 02/19/23 05:49 05:49 05:49 WBC 6.63 RBC 4.28 Hgb 9.1 L Hct 31.2 L MCV 72.9 L MCH 21.3 L MCHC 29.2 L RDW Std Deviation 38.0 RDW Coeff of Alexia 14.3 Plt Count 433 H MPV 9.5 Immature Gran % (Auto) 0.3 Neut % (Auto) 56.5 Lymph % (Auto) 30.6 Mclennan % (Auto) 6.6 Eos % (Auto) 5.4 Baso % (Auto) 0.6 Reticulocyte % (Auto) 1.7 Neut # (Auto) 3.74 Lymph # (Auto) 2.03 Mclennan # (Auto) 0.44 Eos # (Auto) 0.36 Baso # (Auto) 0.04 Reticulocyte # 0.07 Immature Gran # (Auto) 0.02 Polychromasia 1+ Tear Drop Cells 1+ Peripher Smr Path Cons Haptoglobin Pending Sodium 136 Potassium 3.6 Chloride 95 L Carbon Dioxide 33 H Anion Gap 8 BUN 15 Creatinine 0.98 Est Cr Clr Drug Dosing 138.2 Est GFR ( Amer) 86.0 Est GFR (Non-Af Amer) 74.2 BUN/Creatinine Ratio 15.3 Glucose 97 Calcium 9.2 Magnesium 2.0 Iron 35 TIBC 383 Unsaturated IBC 348 Transferrin % Sat 9 L Ferritin 12.8 Total Bilirubin 0.3 AST 13 ALT 8 Alkaline Phosphatase 100 Lactate Dehydrogenase 231 Total Protein 7.9 Albumin 3.6 Globulin 4.3 H Albumin/Globulin Ratio 0.8 L Vitamin B1 Pending 02/19/23 08:57 WBC RBC Hgb Hct MCV MCH MCHC RDW Std Deviation RDW Coeff of Alexia Plt Count MPV Immature Gran % (Auto) Neut % (Auto) Lymph % (Auto) Mclennan % (Auto) Eos % (Auto) Baso % (Auto) Reticulocyte % (Auto) Neut # (Auto) Lymph # (Auto) Mclennan # (Auto) Eos # (Auto) Baso # (Auto) Reticulocyte # Immature Gran # (Auto) Polychromasia Tear Drop Cells Peripher Smr Path Cons Haptoglobin Sodium Potassium Chloride Carbon Dioxide Anion Gap BUN Creatinine 0.98 Est Cr Clr Drug Dosing 138.2 Est GFR ( Amer) 86.0 Est GFR (Non-Af Amer) 74.2 BUN/Creatinine Ratio Glucose Calcium Magnesium Iron TIBC Unsaturated IBC Transferrin % Sat Ferritin Total Bilirubin AST ALT Alkaline Phosphatase Lactate Dehydrogenase Total Protein Albumin Globulin Albumin/Globulin Ratio Vitamin B1 PG Care Time/CCT Total # of Minutes Spent Total Time Spent with Patient: Total time spent is greater than 50% in coordination of care (as documented) at patient's floor/unit and/or counseling patient: Coding Level of Care Code 40668 SUB INP/OBS CARE 2/35MIN Diagnoses Acute on chronic heart failure with preserved ejection fraction (HFpEF) I50.33 Sleep apnea G47.30 Hypothyroidism E03.9 Iron deficiency E61.1 Hepatitis C B19.20 Depression F32.A Splenomegaly R16.1 H/O mitral valve replacement Z95.2 History of stroke Z86.73 Back pain M54.9
[2023-02-19] MEDS: PATIENT'S OWN CONTROLLED MED 3 PO SCH (20:57)
[2023-02-19] MEDS: ACETAMINOPHEN 500 MG TAB PO SCH (21:02)
[2023-02-20] MEDS: ACETAMINOPHEN 500 MG TAB PO SCH ×3 (05:50→21:33)
[2023-02-20] MEDS: LEVOTHYROXINE SODIUM 88 MCG TABLET PO SCH (05:51)
[2023-02-20] MEDS: SODIUM CHLOR 7% 4 ML NEB NEB SCH ×2 (07:46→19:11)
[2023-02-20 08:15] LABS: Anion Gap 11 (3-11); BUN Creatinine Ratio 13.1 (10-20); Blood Urea Nitrogen 27 mg/dl (6-23); Calcium 9.4 mg/dl (8.6-10.3); Carbon Dioxide 28 mmol/L (21-32); Chloride 96 mmol/L (98-107); Creatinine Clr Calc Pharmacy 65.7 ml/min; Est GFR (Non-African American) 30.2 ml/min; Glucose 75 mg/dl (70-99(Fasting)); Sodium 135 mmol/L (136-145)
--- NOTE | 2023-02-20 09:00 | Ultrasound Report ---
ULTRASOUND RIGHT UPPER QUADRANT ABDOMEN CLINICAL HISTORY: Hepatitis C. COMPARISON STUDY: Abdominal CT dated 11/20/2022. TECHNIQUE: Real-time, grayscale, and color flow sonography of the right upper quadrant of the abdomen was performed. Images are reviewed in the transverse and longitudinal planes. FINDINGS: Liver: The liver is enlarged, measuring 27 cm in length. The liver demonstrates heterogeneously incre ased echotexture indicating steatosis. Nodularity of the surface contour suggests early morphologic c hange of cirrhosis. Fatty sparing is seen adjacent to gallbladder fossa. There is no intrahepatic beverley iary ductal dilatation. The main portal vein is patent. Gallbladder: There are shadowing calcified gallstones. There is no gallbladder wall thickening or per icholecystic fluid. A sonographic Chavez's sign is reportedly absent. The common bile duct measures u p to 0.7 cm in diameter. Pancreas: Visualized portions of the pancreatic head and body are normal in appearance. The splenic v ein is patent. Right kidney: Survey images of the right kidney demonstrate normal size and echotexture. There is no hydronephrosis. Ascites: None. IMPRESSION: 1. The liver is enlarged and steatotic. 2. Nodularity of the hepatic surface contour suggests early morphologic change of cirrhosis. 3. Cholelithiasis without sonographic evidence of acute cholecystitis. ACT 112: Negative or not required by law. Electronically signed by: Gaudencio Phillips M.D. 02/20/2023 8:59 AM
[2023-02-20] MEDS: DOXYCYCLINE HYCLATE 100 MG in DEXTROSE 5% 100 ML IV SCH ×2 (09:04→20:22)
[2023-02-20] MEDS: BUMETANIDE 4 MG in SYRINGE 0 ML IV SCH (09:04)
[2023-02-20] MEDS: THIAMINE HCL 100 MG TAB PO SCH ×2 (09:04→20:23)
[2023-02-20] MEDS: POTASSIUM CHLORIDE CRTAB 20 MEQ TABCR PO SCH ×2 (09:04→20:24)
[2023-02-20] MEDS: ASPIRIN 81 MG CHEW PO SCH (09:05)
[2023-02-20] MEDS: NYSTATIN SUSP 500,000 U/5 ML UDC PO SCH ×4 (09:05→20:22)
[2023-02-20] MEDS: MULTIVITAMIN TAB PO SCH (09:05)
[2023-02-20] MEDS: ARIPiprazole 15 MG TAB PO SCH (09:05)
[2023-02-20] MEDS: APIXABAN 2.5 MG TAB PO SCH ×2 (09:05→20:23)
[2023-02-20] MEDS: MAGNESIUM OXIDE 400 MG TAB PO SCH (09:05)
[2023-02-20] MEDS: METOPROLOL TARTRATE 25 MG TAB PO SCH ×2 (09:05→20:24)
[2023-02-20] MEDS: guaiFENesin 600 MG TABCR PO SCH ×2 (09:05→20:25)
[2023-02-20] MEDS: FLUTICASONE FUROATE 100MCG 14 PUFFS/INHALER INH SCH (09:05)
[2023-02-20] MEDS: GABAPENTIN 300 MG CAP PO SCH ×3 (09:05→20:24)
[2023-02-20] MEDS: NICOTINE 7 MG/24 HR TDSY TD SCH (10:09)
--- NOTE | 2023-02-20 10:27 | Cardiology Progress Note ---
Date of Service February 20, 2023 Assessment & Plan (1) Acute on chronic heart failure with preserved ejection fraction (HFpEF): (2) Edema: (3) Hypervolemia: (4) S/P mitral valve replacement with bioprosthetic valve: (5) Tobacco dependence: Plan ASSESSMENT/PLAN: 1. Heart failure with preserved EF: Likely acute on chronic. Much better clinically and labs suggest azotemia. Discontinued Bumex for now. Monitor renal function and electrolytes. Noncompliance likely playing a role as she missed doses of Bumex as an outpatient. We discussed the importance of very close follow-up as she is high risk for continued hospitalization. She is agreeable to weekly meetings (every other in person alternating weekly with telehealth). Strict I's and O's while hospitalized. Daily weights. Less than 2000 mg of sodium daily. Continue heart failure program. High risk for readmi ssion as she has been admitted several times this year and according to some available records, has demonstrated noncompliance. SGLT2 inhibitor has not been initiated due to issues with recurrent UTI. 2. 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 She has had multiple limited echoes 2022. Slightly elevated transvalvular gradient in November 2022. SBE prophylaxis. Monitor as an outpatient. 3. Depression: Have correspondence from home health nursing requesting for comfort measures, reportedly coming from patient in the outpatient setting. She does not recall this. Psychiatric consultation is pending. As per primary hospitalist service. 4. Anticoagulation: No cardiac indication for chronic anticoagulation therapy known at this time. According to records, was initiated in July 2022 when discharged from mitral valve replacement hospitalization for DVT prophylaxis. Will defer ongoing use to primary hospitalist service. 5. Tobacco abuse: Smoking cessation. 6. Disposition: Cardiology will continue to follow along. Patient care communicated with Dr. Taylor of the primary hospitalist service. Admission and Anticipated Discharge Date Admission Date: February 18, 2023 Subjective Patient seen this afternoon. She denies chest pain, shortness of breath, syncope, near syncope, palpitations. She was hoping to go home soon. She was alone in her hospital room. Physical Exam Physical Exam: Gen.: No acute distress. Alert. HEENT: Anicteric sclera. Neck: Thick neck. No appreciable JVD. Cardiac: No ventricular heave. Regular. No ectopy. Normal S1-S2. No audible murmur. No rubs or gallops. Pulmonary: Clear to auscultation bilaterally. Abdomen: Soft, nontender, nondistended, with normoactive bowel sounds. No bruits noted. Extremities: 2+ radial pulses bilaterally. 2+ posterior tibialis pulses bilaterally. No pitting edema. No cyanosis. Results & Data Vital Signs (Past 12 Hours) Vital Signs Temp Pulse Pulse Resp BP Pulse Ox O2 Del Method 02/20/23 08:12 36.9 C 85 18 115/75 97 Room Air 02/20/23 07:00 66 02/19/23 22:30 76 02/20/23 02:28 36.8 C 70 18 102/59 L 98 Nasal Cannula 02/19/23 22:36 36.6 C 80 18 102/59 L 98 Nasal Cannula O2 Flow Rate 02/20/23 08:12 02/20/23 07:00 02/19/23 22:30 02/20/23 02:28 2 02/19/23 22:36 Intake & Output 02/18/23 02/19/23 02/20/23 02/21/23 06:59 06:59 06:59 06:59 Intake Total 610 / 610 890 / 890 Output Total 2200 / 2200 2400 / 2400 Balance -1590 / -1590 -1510 / -1510 Weight 396 lb 13.313 oz 396 lb 6.258 oz Laboratory Results Laboratory Results - last 24 hr 02/19/23 02/20/23 05:49 07:14 Peripher Smr Path Cons Sodium 135 L Potassium TNP Chloride 96 L Carbon Dioxide 28 Anion Gap 11 BUN 27 H Creatinine 2.06 H D Est Cr Clr Drug Dosing 65.7 Est GFR ( Amer) 35.0 Est GFR (Non-Af Amer) 30.2 BUN/Creatinine Ratio 13.1 Glucose 75 Calcium 9.4 Diagnostic Findings Labs reviewed and notable for abnormal renal function, suggesting azotemia. Telemetry personally reviewed: Sinus rhythm. No arrhythmia. Medications Administered Current Inpatient Medications Acetaminophen (Acetaminophen 500 Mg Tab) 1,000 mg PO Q8 [facility] Stop: 03/21/23 20:59 Last Admin: 02/20/23 05:50 Dose: 1,000 mg Al Hydrox/Mg Hydrox/Simethicone (Aluminum/Magnesium Susp 30 Ml Udc) 15 ml PO Q4H PRN PRN Reason: Dyspepsia Stop: 03/20/23 19:43 Albuterol (Albut/Ipratrop 3mg/0.5mg Neb 3 Ml Vial) 3 ml NEB Q4H PRN; Protocol PRN Reason: cough/wheezing/shortness of breath Stop: 03/20/23 19:43 Last Admin: 02/18/23 20:19 Dose: 3 ml Apixaban (Apixaban 2.5 Mg Tab) 2.5 mg PO BID [facility] Stop: 03/20/23 20:59 Last Admin: 02/20/23 09:05 Dose: 2.5 mg Aripiprazole (Aripiprazole 15 Mg Tab) 15 mg PO DAILY [facility] Stop: 03/21/23 08:59 Last Admin: 02/20/23 09:05 Dose: 15 mg Aspirin (Aspirin 81 Mg Chew) 81 mg PO DAILY [facility] Stop: 03/21/23 08:59 Last Admin: 02/20/23 09:05 Dose: 81 mg Clonazepam (Clonazepam 0.5 Mg Tab) 0.5 mg PO HS [facility] Stop: 03/20/23 20:59 Last Admin: 02/19/23 20:39 Dose: 0.5 mg Fluticasone Furoate (Fluticasone Furoate 100mcg 14 Puffs/Inhaler) 1 puffs INH DAILY [facility]; Protocol Stop: 03/20/23 20:59 Last Admin: 02/20/23 09:05 Dose: 1 puffs Gabapentin (Gabapentin 300 Mg Cap) 300 mg PO TID [facility] Stop: 03/20/23 20:59 Last Admin: 02/20/23 09:05 Dose: 300 mg Guaifenesin (Guaifenesin 600 Mg Tabcr) 600 mg PO Q12 [facility] Stop: 03/20/23 20:59 Last Admin: 02/20/23 09:05 Dose: 600 mg Ceftriaxone Sodium 2,000 mg/ (Dextrose) 70 mls @ 100 mls/hr IV Q24H [facility]; Protocol Stop: 02/25/23 20:14 Last Infusion: 02/19/23 21:53 Dose: Infused Bumetanide 4 mg/ Syringe 16 mls @ 4 mls/min IV BID@0900,1700 [facility] Stop: 03/20/23 19:43 Last Admin: 02/20/23 09:04 Dose: 4 mls/min Doxycycline Hyclate 100 mg/ (Dextrose) 110 mls @ 55 mls/hr IV Q12H [facility] Stop: 02/25/23 20:29 Last Admin: 02/20/23 09:04 Dose: 55 mls/hr Levothyroxine Sodium (Levothyroxine Sodium 88 Mcg Tablet) 88 mcg PO DAILYBB [facility] Stop: 03/21/23 06:29 Last Admin: 02/20/23 05:51 Dose: 88 mcg Magnesium Hydroxide (Magnesium Hydroxide Susp 30 Ml Udc) 30 ml PO Q12H PRN PRN Reason: Constipation Stop: 03/20/23 19:43 Magnesium Oxide (Magnesium Oxide 400 Mg Tab) 400 mg PO DAILY [facility] Stop: 03/21/23 08:59 Last Admin: 02/20/23 09:05 Dose: 400 mg Melatonin (Melatonin 3 Mg Tab) 3 mg PO HS [facility] Stop: 03/20/23 20:59 Last Admin: 02/19/23 20:39 Dose: 3 mg Methadone HCl (Methadone Oral Soln 2 Mg/Ml) 72 mg PO QPM [facility] Stop: 03/05/23 20:59 Last Admin: 02/19/23 20:40 Dose: 72 mg Metoprolol Tartrate (Metoprolol Tartrate 25 Mg Tab) 25 mg PO BID [facility] Stop: 03/20/23 20:59 Last Admin: 02/20/23 09:05 Dose: 25 mg Miscellaneous (Remove Nicoderm Patch) 1 each N/A DAILY@0859 [facility] Stop: 03/21/23 08:58 Last Admin: 02/20/23 09:06 Dose: Not Given Multivitamins (Multivitamin Tab) 1 tab PO DAILY [facility] Stop: 03/21/23 08:59 Last Admin: 02/20/23 09:05 Dose: 1 tab Nicotine (Nicotine 7 Mg/24 Hr Tdsy) 7 mg TD QAM [facility] Stop: 03/21/23 08:59 Last Admin: 02/20/23 10:09 Dose: Not Given Non-Formulary Medication (Patient's Own Controlled Med 3) 1 ea PO QPM [facility] Stop: 03/05/23 20:59 Last Admin: 02/19/23 20:57 Dose: Not Given Nystatin (Nystatin Susp 500,000 U/5 Ml Udc) 5 ml PO QID [facility] Stop: 02/28/23 20:59 Last Admin: 02/20/23 09:05 Dose: 5 ml Potassium Chloride (Potassium Chloride Crtab 20 Meq Tabcr) 20 meq PO BID [facility] Stop: 03/20/23 20:59 Last Admin: 02/20/23 09:04 Dose: 20 meq Sertraline HCl (Sertraline Hcl 100 Mg Tablet) 200 mg PO DAILY [facility] Stop: 03/21/23 08:59 Last Admin: 02/19/23 09:13 Dose: 200 mg Sodium Chloride (Sodium Chlor 7% 4 Ml Neb) 4 ml NEB BIDR [facility] Stop: 03/20/23 18:59 Last Admin: 02/20/23 07:46 Dose: Not Given Thiamine HCl (Thiamine Hcl 100 Mg Tab) 200 mg PO BID [facility] Stop: 03/21/23 06:59 Last Admin: 02/20/23 09:04 Dose: 200 mg Trazodone HCl (Trazodone Hcl 50 Mg Tab) 50 mg PO HS [facility] Stop: 03/20/23 20:59 Last Admin: 02/19/23 20:42 Dose: 50 mg PG Care Time/CCT Total # of Minutes Spent Total Time Spent with Patient: Total time spent is greater than 50% in coordination of care (as documented) at patient's floor/unit and/or counseling patient: Coding Level of Care Code 54843 SUB INP/OBS CARE 2/35MIN Diagnoses Acute on chronic heart failure with preserved ejection fraction (HFpEF) I50.33 Edema R60.9 Hypervolemia E87.70 S/P mitral valve replacement with bioprosthetic valve Z95.3 Tobacco dependence F17.200
--- NOTE | 2023-02-20 10:35 | Psychiatric Consultation ---
Date of Consultation February 20, 2023 Impression / Recommendations Impression 37 y/o F with a history of mood disorder (previously characterized as bipolar disorder but Dr. Trujillo found no evidence of a history of nancy), anxiety, opioid use disorder on methadone who had a right MCA ischemic stroke and takes multiple potentially-sedating drugs. While it cannot be ruled out that some of her lethargy might represent depressive symptoms despite her report that she doesn't feel depressed, she has so many clear medical contributors and potentially sedating medications that in my opinion this would not be a fruitful avenue to explore. I'm very concerned about the untreated sleep apnea. This is not only likely to cause lethargy but also is likely to impair cognition and alter mood. Blowing oxygen on her face if she's not actually breathing it (as is essentially the case with her use of oxygen without xPAP while sleeping) isn't very likely to do much good in terms of oxygenating end organs including her brain. Some of her sedating medications probably cannot be stopped due to medical necessity. Others probably should not be stopped due to a high risk of relapse of significant problems, such as the methadone. Some, such as the aripiprazole, are being used for reasons that aren't entirely clear and possibly could be stopped. It's likely pt has reported depression to whomever prescribed it, but her ability to function is impaired by her degree of somnolence likely to a g reater degree than it might be by depression. Like you, I'm very concerned about the use of clonazepam at night in a patient with untreated sleep apnea. (1) Major depressive disorder, recurrent episode, moderate with anxious distress: (2) Opioid use disorder, severe, in sustained remission: Plan * I recommend stopping clonazepam, which seems to pose a disproportionate risk of harm vs. benefit. * It would appear highly advisable for pt to treat her sleep apnea, though it's by no means clear that she will do this. * I really am not convinced that she needs the aripiprazole enough to warrant the sedation risk and recommend it be stopped. * I believe the methadone must be continued despite sedation risk due to near- certain withdrawal risk if stopped. Psych History Identifying Data TWILA RADER is a 37-year-old F with a history of thrombotic right MCA stroke, admitted on 02/18/2023 for lethargy. Consult is by the hospitalist service for "lethargy, recs for med changes". Chief Complaint "I'm actually not depressed". History of Present Illness As part of a thorough review of the available medical records, I have read and confirmed the following note by the ED physician: "Patient presents due to concern for confusion as well as associated shortness of breath. The patient does have a known history of CHF and does follow with Margie madison. Patient has some low back pain. Patient denies any cough or fever. The patient is wearing off 4 L of oxygen at nighttime. The patient did not take her medication this morning. Patient denies any falls or trauma. No headache. The patient does have a history of CVA for which she does take the Eliquis per patient the patient does have left lower extremity and left upper extremity deficits. Patient states that she does walk with assistance. Patient does complain of some lower back discomfort. No dysuria or hematuria. 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 Recent hospitalization for such last month with 15lb weight gain, where she was recently diagnosed with hypothyroidism as well as possibility underlying untreated sleep apnea. Per CHF note, after discharge, weight gain 15lb in 4-10 days with increased LE edema and was switched to Bumex 2mg BID and increased to 4mg BID most recently. Patient evaluated in B3B, mom and daughter at bedside. Patient very sleep/fatigued, will open eyes, answering questions quickly, falling back asleep. Denies chest pain, abdominal pain/nausea. Wanting something to drink/eat, fatigue/sleepy appearing. Per mom, reports patient yesterday starting more fatigue/sleepy, not much of an appetite for dinner. Ate another bite during evening but fell back asleep.Reports feeling off/in a daze, eyes rolling in back of head on occasion. Sleeps in recliner chair in the living room, and mom stays up with her. Has been very fatigued/sleepy over the past couple of days. Typically wears O2, 2L HS. Having period of apnea on exam. Reports doesn't get good sleep. Per mom, home unit oxygen had yellow light, unclear if was actually using. Complaints of sinus congestion/dry mouth with oxygen, does not use humidification. Mom is working on getting new unit at home Mom reports this morning, patient went to bathroom this morning and said she didn't pee, but family noticied she had. Reports darkened yellow in color/foul smelling reported by daughter at bedside. Patient states she does not want to get up to go to the bathroom at present, assisted nursing w/ purewick for now. Discussed possible purewick at home if needed. Reports compliance with the bumex. Regarding her hypothyroidism, mother reports she had been compliant with her Synthroid, taking on empty stomach before eating. TSH elevated and will adjust/increase. Regarding suspected sleep apnea, mom states she had been working on more pertinent issues w/ edema/swelling and not arranged formal sleep study yet outpatient. They are in the middle of getting patient moved back into their house so someone is with her all the time. Volume overloaded on exam with recorded weight 179kg (393lb) , dry weight to be "370lb for now" per CHF notes. Prior discussion about possible starting SGLT2i in the future and likely benefit from such. Discussed w/ mom, clonazepam not ideal w/ untreated CARINA/sedation/hypercapnea." Review of the medical record reveals a previous psychiatric consultation by Dr. Trujillo in September of this year with similar concerns. Among other recommendations she suggested stopping aripiprazole. Pt. carries diagnosis of major depression, opioid use disorder. Complicated medical problems including right MCA ischemic stroke, untreated sleep apnea, heart failure, hypothyroidism. She is on multiple potentially- sedating drugs including aripiprazole, clonazepam, gabapentin, and methadone. Dose of aripiprazole appears to have trebled to 15 mg from the 5 mg she was taking in September and which Dr. Trujillo recommended be stop, but reasons for this are unclear. Pt says she's not feeling depressed recently but is often tired. We discussed her untreated sleep apnea (for which, according to her, she's never had a sleep medicine consult or sleep study). She is pleasant and cooperative with very constricted affect and little spontaneous movement. Allergies Allergy/AdvReac Type Severity Reaction Status Date / Time sulfamethoxazole Allergy Severe Anaphylaxis Verified 02/18/23 15:02 [From Bactrim] trimethoprim [From Bactrim] Allergy Severe Anaphylaxis Verified 02/18/23 15:02 atorvastatin AdvReac Intermediate Muscle Pain Verified 02/18/23 15:02 Home Medications Medication Instructions Recorded Confirmed Type Wheelchair (Manual) #1 ea 03/25/22 02/11/23 Rx Hospital Bed Homecare (Hospital #1 ea 04/18/22 02/11/23 Rx Bed) Wheelchair (Manual) (Manual #1 ea 04/18/22 02/11/23 Rx Wheelchair) Lift Chair #1 ea 10/09/22 02/11/23 Rx miscellaneous medical supply #1 ea 10/16/22 02/11/23 Rx ketoconazole 2 % topical cream 1 applic topical BID 4 weeks #15 11/19/22 02/18/23 Rx grams aspirin 81 mg chewable tablet 81 mg PO DAILY 12/16/22 02/18/23 History fluticasone propionate 100 1 inh inhalation BID #60 ea 12/16/22 02/18/23 Rx mcg/actuation blister powder for inhalation (Flovent Diskus) gabapentin 600 mg tablet 600 mg PO TID 12/16/22 02/18/23 History melatonin 3 mg tablet 3 mg PO HS 12/16/22 02/18/23 History methadone 10 mg tablet 72 mg PO DAILY 12/16/22 02/18/23 History metoprolol tartrate 50 mg tablet 25 mg PO BID #30 tabs 12/16/22 02/18/23 Rx multivitamin with minerals 1 tab PO DAILY 12/16/22 02/18/23 History trazodone 50 mg tablet 50 mg PO HS #30 tabs 12/16/22 02/18/23 Rx sertraline 100 mg tablet 200 mg PO DAILY #60 tabs 12/17/22 02/18/23 Rx epinephrine 0.3 mg/0.3 mL 0.3 mg (0.3 mL) IM .COMPLEX PRN 12/26/22 02/18/23 Rx injection, auto-injector anaphylaxis #2 ea apixaban 2.5 mg tablet 2.5 mg PO BID #60 tabs 01/08/23 02/18/23 Rx cyanocobalamin (vitamin B-12) 1,000 mcg PO DAILY #90 tabs 01/08/23 02/18/23 Rx 1,000 mcg tablet magnesium oxide 400 mg (241.3 mg 400 mg PO DAILY #30 tabs 01/08/23 02/18/23 Rx magnesium) tablet nicotine 7 mg/24 hr daily 7 mg transdermal QAM #30 ea 01/08/23 02/18/23 Rx transdermal patch potassium chloride 20 mEq 20 meq PO BID #60 tabs 01/08/23 02/18/23 Rx tablet,extended release aripiprazole 15 mg tablet (Abilify) 15 mg PO DAILY #30 tabs 01/24/23 02/18/23 Rx Oxygen Home #1 ea 01/26/23 02/11/23 Rx benzonatate 100 mg capsule 100 mg PO TID PRN cough #20 caps 01/26/23 02/18/23 Rx ipratropium 0.5 mg-albuterol 3 mg 3 ml NEB Q6H PRN 01/26/23 02/18/23 Rx (2.5 mg base)/3 mL nebulization cough/wheezing/shortness of breath soln #1 box ipratropium 20 mcg-albuterol 100 1 puff inhalation TID PRN 01/26/23 02/18/23 Rx mcg/actuation mist for inhalation cough/wheezing/shortness of breath (Combivent Respimat) #1 g levothyroxine 75 mcg tablet 75 mcg PO DAILY 01/27/23 02/18/23 History clonazepam 0.5 mg tablet 0.5 mg PO HS #30 tabs 02/10/23 02/18/23 Rx bumetanide 2 mg tablet 4 mg PO BID #120 tabs 02/11/23 02/18/23 Rx baclofen 10 mg tablet 10 mg PO BID #60 tabs 02/12/23 02/18/23 Rx Patient History Medical History (Updated 02/20/23 @ 22:30 by Jean Washington MD) Anemia Anxiety B12 deficiency Bipolar disorder Chronic right arterial ischemic stroke, MCA (middle cerebral artery) Drug abuse and dependence Edema, peripheral Endocarditis MENDEZ (generalized anxiety disorder) History of embolic stroke Rt MCA Hypokalemia Hypoxia Iron deficiency Left spastic hemiparesis Morbid obesity Opioid use disorder, severe, in sustained remission on maintenance therapy Methadone PCOS (polycystic ovarian syndrome) Primary hypothyroidism Snoring Splenic abscess Thalassemia Tobacco dependence Surgical History H/O mitral valve replacement History of section History of repair of ACL History of tubal ligation S/P mitral valve replacement with bioprosthetic valve (06/2022) Family History Grandmother (Paternal) Breast cancer Grandfather (Maternal) Myocardial infarction Graves disease Grandfather (Paternal) Myocardial infarction Other Thalassemia Denies family history of Colon cancer Ovarian cancer Prostate cancer Social History Smoking Status: Current every day smoker Tobacco Type: Cigarettes packs per day: 1; Second Hand Exposure: Yes; Do You Dip or Chew Tobacco: No; Tobacco Cessation Education Requested by Patient: No Hx Alcohol Use: Yes Hx Substance Use: Yes Last Used Substance: Days (ago) Substance Use Type Other:: clean for 10 months Preferred Language: Greenlandic Communication Ability: Effective Visual Impairment: No Limitations Hearing Ability: Normal Texture Artist Required: No Beliefs That Will Affect Care: None marital status: Single Current Living Situation: Parent Current Living Situation Comment: boyfriend and her 3 daughters 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 Other Information That Helps Us Care for You: No Feels Safe at Home: Yes Safety Concerns: Feels Safe At This Time Childhood Exposure to Second-Hand Smoke: No Diet: regular Diet Comment: regular Dental Care, Regularly: No Physical Activity Frequency: Does not Exercise Seatbelt Use: sometimes Sunscreen Use: No Assistive Devices: Oxygen - at Night and Wheelchair Physical Exam Psychiatric: Orientation: alert, oriented to person, oriented to place, oriented to time and cooperative Apperance: appropriately dressed and appro priately groomed Eye Contact: + fair eye contact Motor Behavior: + psychomotor retardation Speech: normal rate/rhythm/volume of speech Affect: + constricted affect Mood: + anxious mood Thought Process: linear/logical thought process and thought association intact Thought Content: reality based without delusions and + loneliness Suicidal Thoughts: denies suicidal thoughts, denies suicidal plan and denies suicidal intent Homicidal Thoughts: denies homicidal thoughts Hallucinations: no auditory hallucinations and no visual hallucinations Cognition: recent memory grossly intact, remote memory grossly intact, attention grossly intact and language grossly intact Estimated Intelligence: average estimated intelligence Insight: + fair insight Judgment: + fair judgement Vital Signs (Past 24 Hours): Last Vital Signs Temp 36.9 C 02/20/23 08:12 Pulse 85 02/20/23 08:12 Resp 18 02/20/23 08:12 BP 115/75 02/20/23 08:12 Pulse Ox 97 02/20/23 08:12 O2 Del Method Room Air 02/20/23 08:12 O2 Flow Rate 2 02/20/23 02:28 Review of Systems Psychiatric: + anhedonia, + abnormal sleep pattern and + anxiety; no depression, no hopelessness, no suicidal ideation and no hallucinations Results & Data (PSY) Medications Administered Acetaminophen (Acetaminophen 500 Mg Tab) 1,000 mg PO Q8 SHIRLEY Stop: 03/21/23 20:59 Last Admin: 02/20/23 05:50 Dose: 1,000 mg Documented By: Admin: 02/19/23 21:02 Dose: 1,000 mg Documented By: MAEGAN Albuterol (Albut/Ipratrop 3mg/0.5mg Neb 3 Ml Vial) 3 ml NEB Q4H PRN; Protocol PRN Reason: cough/wheezing/shortness of breath Stop: 03/20/23 19:43 Last Admin: 02/18/23 20:19 Dose: 3 ml Documented By: JAROCHO Apixaban (Apixaban 2.5 Mg Tab) 2.5 mg PO BID SHIRLEY Stop: 03/20/23 20:59 Last Admin: 02/20/23 09:05 Dose: 2.5 mg Documented By: Admin: 02/19/23 20:38 Dose: 2.5 mg Documented By: Admin: 02/19/23 09:14 Dose: 2.5 mg Documented By: Admin: 02/18/23 21:37 Dose: 2.5 mg Documented By: MAEGAN Aripiprazole (Aripiprazole 15 Mg Tab) 15 mg PO DAILY SHIRLEY Stop: 03/21/23 08:59 Last Admin: 02/20/23 09:05 Dose: 15 mg Documented By: Admin: 02/19/23 09:13 Dose: 15 mg Documented By: ROSARIO Aspirin (Aspirin 81 Mg Chew) 81 mg PO DAILY SHIRLEY Stop: 03/21/23 08:59 Last Admin: 02/20/23 09:05 Dose: 81 mg Documented By: Admin: 02/19/23 09:13 Dose: 81 mg Documented By: DLF Clonazepam (Clonazepam 0.5 Mg Tab) 0.5 mg PO HS SHIRLEY Stop: 03/20/23 20:59 Last Admin: 02/19/23 20:39 Dose: 0.5 mg Documented By: Admin: 02/18/23 21:38 Dose: 0.5 mg Documented By: CLC Fluticasone Furoate (Fluticasone Furoate 100mcg 14 Puffs/Inhaler) 1 puffs INH DAILY SHIRLEY; Protocol Stop: 03/20/23 20:59 Last Admin: 02/20/23 09:05 Dose: 1 puffs Documented By: Admin: 02/19/23 09:13 Dose: 1 puffs Documented By: Admin: 02/18/23 21:38 Dose: 1 puffs Documented By: MAEGAN Gabapentin (Gabapentin 300 Mg Cap) 300 mg PO TID SHIRLEY Stop: 03/20/23 20:59 Last Admin: 02/20/23 09:05 Dose: 300 mg Documented By: Admin: 02/19/23 20:39 Dose: 300 mg Documented By: Admin: 02/19/23 13:16 Dose: 300 mg Documented By: Admin: 02/19/23 09:14 Dose: 300 mg Documented By: Admin: 02/18/23 21:38 Dose: 300 mg Documented By: MAEGAN Guaifenesin (Guaifenesin 600 Mg Tabcr) 600 mg PO Q12 SHIRLEY Stop: 03/20/23 20:59 Last Admin: 02/20/23 09:05 Dose: 600 mg Documented By: Admin: 02/19/23 20:39 Dose: 600 mg Documented By: Admin: 02/19/23 09:14 Dose: 600 mg Documented By: Admin: 02/18/23 21:38 Dose: 600 mg Documented By: MAEGAN Ceftriaxone Sodium 2,000 mg/ (Dextrose) 70 mls @ 100 mls/hr IV Q24H SHIRLEY; Protocol Stop: 02/25/23 20:14 Last Infusion: 02/19/23 21:53 Dose: 0 mls/hr Documented By: Admin: 02/19/23 20:29 Dose: 100 mls/hr Documented By: Infusion: 02/18/23 22:26 Dose: 0 mls/hr Documented By: Admin: 02/18/23 21:30 Dose: 100 mls/hr Documented By: CLC Bumetanide 4 mg/ Syringe 16 mls @ 4 mls/min IV BID@0900,1700 SHIRLEY Stop: 03/20/23 19:43 Last Admin: 02/20/23 09:04 Dose: 4 mls/min Documented By: Admin: 02/19/23 16:14 Dose: 4 mls/min Documented By: Admin: 02/19/23 09:14 Dose: 4 mls/min Documented By: Admin: 02/18/23 20:52 Dose: 4 mls/min Documented By: CLC Doxycycline Hyclate 100 mg/ (Dextrose) 110 mls @ 55 mls/hr IV Q12H SHIRLEY Stop: 02/25/23 20:29 Last Admin: 02/20/23 09:04 Dose: 55 mls/hr Documented By: Infusion: 02/19/23 22:34 Dose: 0 mls/hr Documented By: Admin: 02/19/23 20:29 Dose: 55 mls/hr Documented By: Infusion: 02/19/23 11:17 Dose: 0 mls/hr Documented By: Admin: 02/19/23 09:17 Dose: 55 mls/hr Documented By: Infusion: 02/18/23 23:43 Dose: 0 mls/hr Documented By: Admin: 02/18/23 21:30 Dose: 55 mls/hr Documented By: CLC Levothyroxine Sodium (Levothyroxine Sodium 88 Mcg Tablet) 88 mcg PO DAILYBB SHIRLEY Stop: 03/21/23 06:29 Last Admin: 02/20/23 05:51 Dose: 88 mcg Documented By: Admin: 02/19/23 06:10 Dose: 88 mcg Documented By: CLC Magnesium Oxide (Magnesium Oxide 400 Mg Tab) 400 mg PO DAILY SHIRLEY Stop: 03/21/23 08:59 Last Admin: 02/20/23 09:05 Dose: 400 mg Documented By: Admin: 02/19/23 09:13 Dose: 400 mg Documented By: DLF Melatonin (Melatonin 3 Mg Tab) 3 mg PO HS SHIRLEY Stop: 03/20/23 20:59 Last Admin: 02/19/23 20:39 Dose: 3 mg Documented By: Admin: 02/18/23 21:39 Dose: 3 mg Documented By: CLC Methadone HCl (Methadone Oral Soln 2 Mg/Ml) 72 mg PO QPM SHIRLEY Stop: 03/05/23 20:59 Last Admin: 02/19/23 20:40 Dose: 72 mg Documented By: CLC Metoprolol Tartrate (Metoprolol Tartrate 25 Mg Tab) 25 mg PO BID SHIRLEY Stop: 03/20/23 20:59 Last Admin: 02/20/23 09:05 Dose: 25 mg Documented By: Admin: 02/19/23 20:41 Dose: 25 mg Documented By: Admin: 02/19/23 09:10 Dose: Not Given Documented By: Admin: 02/18/23 21:48 Dose: 25 mg Documented By: MAEGAN Miscellaneous (Remove Nicoderm Patch) 1 each N/A DAILY@0859 SHIRLEY Stop: 03/21/23 08:58 Last Admin: 02/20/23 09:06 Dose: Not Given Documented By: Admin: 02/19/23 09:15 Dose: Not Given Documented By: ROSARIO Multivitamins (Multivitamin Tab) 1 tab PO DAILY SHIRLEY Stop: 03/21/23 08:59 Last Admin: 02/20/23 09:05 Dose: 1 tab Documented By: Admin: 02/19/23 09:13 Dose: 1 tab Documented By: DLZoe Nicotine (Nicotine 7 Mg/24 Hr Tdsy) 7 mg TD QAM SHIRLEY Stop: 03/21/23 08:59 Last Admin: 02/20/23 10:09 Dose: Not Given Documented By: Admin: 02/19/23 09:15 Dose: Not Given Documented By: DLF Non-Formulary Medication (Patient's Own Controlled Med 3) 1 ea PO QPM SHIRLEY Stop: 03/05/23 20:59 Last Admin: 02/19/23 20:57 Dose: Not Given Documented By: MAEGAN Nystatin (Nystatin Susp 500,000 U/5 Ml Udc) 5 ml PO QID SHIRLEY Stop: 02/28/23 20:59 Last Admin: 02/20/23 09:05 Dose: 5 ml Documented By: Admin: 02/19/23 20:41 Dose: 5 ml Documented By: Admin: 02/19/23 16:14 Dose: 5 ml Documented By: Admin: 02/19/23 13:16 Dose: 5 ml Documented By: Admin: 02/19/23 09:14 Dose: 5 ml Documented By: Admin: 02/18/23 21:41 Dose: 5 ml Documented By: CLC Potassium Chloride (Potassium Chloride Crtab 20 Meq Tabcr) 20 meq PO BID SHIRLEY Stop: 03/20/23 20:59 Last Admin: 02/20/23 09:04 Dose: 20 meq Documented By: Admin: 02/19/23 20:41 Dose: 20 meq Documented By: Admin: 02/19/23 09:13 Dose: 20 meq Documented By: Admin: 02/18/23 21:41 Dose: 20 meq Documented By: CLC Sertraline HCl (Sertraline Hcl 100 Mg Tablet) 200 mg PO DAILY SHIRLEY Stop: 03/21/23 08:59 Last Admin: 02/19/23 09:13 Dose: 200 mg Documented By: ROSARIO Sodium Chloride (Sodium Chlor 7% 4 Ml Neb) 4 ml NEB BIDR SHIRLEY Stop: 03/20/23 18:59 Last Admin: 02/20/23 07:46 Dose: Not Given Documented By: Admin: 02/19/23 19:14 Dose: 4 ml Documented By: Admin: 02/19/23 07:47 Dose: 4 ml Documented By: EAAbiola Admin: 02/18/23 20:22 Dose: 4 ml Documented By: JAROCHO Thiamine HCl (Thiamine Hcl 100 Mg Tab) 200 mg PO BID SHIRLEY Stop: 03/21/23 06:59 Last Admin: 02/20/23 09:04 Dose: 200 mg Documented By: Admin: 02/19/23 20:42 Dose: 200 mg Documented By: Admin: 02/19/23 09:13 Dose: 200 mg Documented By: ORSARIO Trazodone HCl (Trazodone Hcl 50 Mg Tab) 50 mg PO HS SHIRLEY Stop: 03/20/23 20:59 Last Admin: 02/19/23 20:42 Dose: 50 mg Documented By: Admin: 02/18/23 21:41 Dose: 50 mg Documented By: MAEGAN Coding Level of Care Code 37328 U Intl Hosp Care Lvl 3 Diagnoses Major depressive disorder, recurrent episode, moderate with anxious distress F33.1 Opioid use disorder, severe, in sustained remission F11.21 Time Spent (min) 81
[2023-02-20] MEDS: SERTRALINE HCL 100 MG TABLET PO SCH (10:52)
[2023-02-20 11:35] LABS: BUN Creatinine Ratio 14.5 (10-20); Calcium 9.4 mg/dl (8.6-10.3); Creatinine Clr Calc Pharmacy 70.1 ml/min; Est GFR (African American) 37.9 ml/min; Est GFR (Non-African American) 32.7 ml/min; Potassium 3.7 mmol/L (3.5-5.1)
--- NOTE | 2023-02-20 12:18 | Hospitalist Progress Note ---
Date of Service February 20, 2023 Assessment & Plan (1) Acute on chronic heart failure with preserved ejection fraction (HFpEF): Plan: per the chart she is about 11-12kg in weight higher than the prior hospitalization in early January 2023. she had escalating doses of bumex in the outpatient setting and despite such continued with weight gain. she is now on bumex 4mg IV BID. this am she has evidence of ANTWAN presumably due to over-diuresis. bumex placed on hold after this am's dose was given. noncompliance with diet? hypothyroidism contributing to decompensation? other factors? does have very mild cirrhosis on liver u/s today but doubt it is playing a large role in her volume status. appreciate cardiology consultation. hold bumex due to ANTWAN. serial BMPs. (2) ANTWAN (acute kidney injury): Plan: over-diuresis the likely culprit place bumex on hold repeat BMP later in the day shows creatinine is already coming down was 2, then 1.9, now 1.6 BMP in am obviously no obstruction given the presence of her horowitz (3) Sleep apnea: Plan: highly suspected to have such likely severe qualified for nocturnal O2 on prior hospital overnight oximetry study cont NC O2 2 liters needs formal sleep study in future - will contact Dr Escamilla with [facility] to see if we can fast-track a nocturnal split study yusra (4) Hypothyroidism: Plan: TSH slowly improving but not at goal Increased synthroid to 88mcg daily with repeat TSH 6 weeks (5) Iron deficiency: Plan: Fe studies this admission c/w iron deficiency. will give 300mg of IV venofer tomorrow. Despite the low Fe her H/H are stable. (6) Hepatitis C: Plan: previous HepC testing was positive. liver u/s with evidence of severe fatty liver and some anatomical features of early cirrhosis. but doubt it is contributing heavily to volume issues. given the early cirrhotic findings will refer to ID post-discharge for consideration of Rx of the HepC. consider vitamin E for fatty liver. 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 remains on asa 81mg daily for secondary prevention (11) Back pain: Plan: no complaints of such today (12) Fatty liver: Plan: see #6 above consider Vitamin E supplementation (13) Cirrhosis: Plan: see #6 above Plan DVT proph - Eliquis 2.5mg BID Pt is on rocephin/doxy blood cx's neg no evidence of pulmonary infection d/c abx PT,OT evals when she is out of bed try to obtain standing scale weight pt's mother extensively updated by phone late this evening care d/w cardiology as well Admission and Anticipated Discharge Date Admission Date: February 18, 2023 Subjective tele overnight wnl saw Michelle mid-morning she was sleeping soundly when I arrived as usual was hard to get her awake but ultimately, once awake, was able to answer questions she asked about her liver u/s she reported her dyspnea was essentially resolved having issues with constipation - last BM was at home and was very, very hard and she had to strain has not been out of bed in 5+ days Review of Systems Review of Systems: gen - no fevers cv - no chest pain, no orthopnea pulm - no cough GI - bloated; but no nausea or emesis Physical Exam Physical Exam: gen - morbidly obese, NAD, very sleepy - fell asleep multiple times during the visit mouth - MMM neck - no obvious JVD heart - RRR, s1 s2, 1/6 VARGAS LUSB lungs - no wheeze, essentially resolved rales bases, mildly decreased BS bases abd - soft, mildly distended, BS+, NT, no HSM ext - trace edema b/l, pulses 2+ b/l neuro - left sided hemiplegia - baseline Results & Data Results & Data Vital Signs (Past 12 Hours) Vital Signs Temp Pulse Pulse Resp BP Pulse Ox O2 Del Method 02/20/23 08:12 36.9 C 85 18 115/75 97 Room Air 02/20/23 07:00 66 02/20/23 02:28 36.8 C 70 18 102/59 L 98 Nasal Cannula O2 Flow Rate 02/20/23 08:12 02/20/23 07:00 02/20/23 02:28 2 Laboratory Results Laboratory Results - last 24 hr 02/19/23 02/20/23 02/20/23 05:49 07:14 10:30 Peripher Smr Path Cons Sodium 135 L 137 Potassium TNP 3.7 Chloride 96 L 94 L Carbon Dioxide 28 35 H Anion Gap 11 8 BUN 27 H 28 H Creatinine 2.06 H D 1.93 H Est Cr Clr Drug Dosing 65.7 70.1 Est GFR ( Amer) 35.0 37.9 Est GFR (Non-Af Amer) 30.2 32.7 BUN/Creatinine Ratio 13.1 14.5 Glucose 75 95 Calcium 9.4 9.4 Diagnostic Findings Liver Ultrasound 02/20/23 00:00 ULTRASOUND RIGHT UPPER QUADRANT ABDOMEN CLINICAL HISTORY: Hepatitis C. COMPARISON STUDY: Abdominal CT dated 11/20/2022. TECHNIQUE: Real-time, grayscale, and color flow sonography of the right upper quadrant of the abdomen was performed. Images are reviewed in the transverse and longitudinal planes. FINDINGS: Liver: The liver is enlarged, measuring 27 cm in length. The liver demonstrates heterogeneously increased echotexture indicating steatosis. Nodularity of the surface contour suggests early morphologic change of cirrhosis. Fatty sparing is seen adjacent to gallbladder fossa. There is no intrahepatic biliary ductal dila tation. The main portal vein is patent. Gallbladder: There are shadowing calcified gallstones. There is no gallbladder wall thickening or pericholecystic fluid. A sonographic Chavez's sign is report edly absent. The common bile duct measures up to 0.7 cm in diameter. Pancreas: Visualized portions of the pancreatic head and body are normal in appearance. The splenic vein is patent. Right kidney: Survey images of the right kidney demonstrate normal size and echotexture. There is no hydronephrosis. Ascites: None. IMPRESSION: 1. The liver is enlarged and steatotic. 2. Nodularity of the hepatic surface contour suggests early morphologic change of cirrhosis. 3. Cholelithiasis without sonographic evidence of acute cholecystitis. ACT 112: Negative or not required by law. Electronically signed by: Gaudencio Phillips M.D. 02/20/2023 8:59 AM PG Care Time/CCT Total # of Minutes Spent Total Time Spent with Patient: Total time spent is greater than 50% in coordination of care (as documented) at patient's floor/unit and/or counseling patient: Coding Level of Care Code 21703 SUB INP/OBS CARE 3/50MIN Diagnoses Acute on chronic heart failure with preserved ejection fraction (HFpEF) I50.33 ANTWAN (acute kidney injury) N17.9 Sleep apnea G47.30 Hypothyroidism E03.9 Iron deficiency E61.1 Hepatitis C B19.20 Depression F32.A Splenomegaly R16.1 H/O mitral valve replacement Z95.2 History of stroke Z86.73 Back pain M54.9 Fatty liver K76.0 Cirrhosis K74.60
[2023-02-20 16:06] LABS: Potassium 4.1 mmol/L (3.5-5.1)
[2023-02-20 16:11] LABS: Est GFR (African American) 47.6 ml/min
[2023-02-20 16:12] LABS: BUN Creatinine Ratio 18.1 (10-20); Creatinine Clr Calc Pharmacy 84.6 ml/min
[2023-02-20] MEDS: clonazePAM 0.5 MG TAB PO SCH (20:22)
[2023-02-20] MEDS: cefTRIAXone SODIUM 2,000 MG in DEXTROSE 5% 50 ML IV SCH (20:22)
[2023-02-20] MEDS: METHADONE ORAL SOLN 2 MG/ML PO SCH (20:23)
[2023-02-20] MEDS: MELATONIN 3 MG TAB PO SCH (20:24)
[2023-02-20] MEDS: traZODone HCL 50 MG TAB PO SCH (20:24)
[2023-02-20] MEDS: PATIENT'S OWN CONTROLLED MED 3 PO SCH ×2 (20:25→21:33)
[2023-02-21] MEDS: ACETAMINOPHEN 500 MG TAB PO SCH ×3 (06:09→21:11)
[2023-02-21] MEDS: LEVOTHYROXINE SODIUM 88 MCG TABLET PO SCH (06:10)
[2023-02-21] MEDS ORDERED: bisacodyL 5 MG TABEC PO ONE (07:08)
[2023-02-21] MEDS ORDERED: IRON SUCROSE 300 MG in SODIUM CHLORIDE 0.9% 250 ML IV ONE (07:24)
[2023-02-21] MEDS: SODIUM CHLOR 7% 4 ML NEB NEB SCH ×2 (07:31→19:27)
[2023-02-21] MEDS: ASPIRIN 81 MG CHEW PO SCH (08:42)
[2023-02-21] MEDS: POLYETHYLENE (MIRALAX) 17 GM PACK PO SCH ×2 (08:42→21:08)
[2023-02-21] MEDS: FLUTICASONE FUROATE 100MCG 14 PUFFS/INHALER INH SCH (08:43)
[2023-02-21] MEDS: guaiFENesin 600 MG TABCR PO SCH ×2 (08:43→21:09)
[2023-02-21] MEDS: POTASSIUM CHLORIDE CRTAB 20 MEQ TABCR PO SCH ×2 (08:43→21:10)
[2023-02-21] MEDS: GABAPENTIN 300 MG CAP PO SCH ×3 (08:43→21:11)
[2023-02-21] MEDS: THIAMINE HCL 100 MG TAB PO SCH ×2 (08:43→21:08)
[2023-02-21] MEDS: APIXABAN 2.5 MG TAB PO SCH ×2 (08:43→21:10)
[2023-02-21] MEDS: SERTRALINE HCL 100 MG TABLET PO SCH (08:43)
[2023-02-21] MEDS: MAGNESIUM OXIDE 400 MG TAB PO SCH (08:43)
[2023-02-21] MEDS: MULTIVITAMIN TAB PO SCH (08:43)
[2023-02-21] MEDS: METOPROLOL TARTRATE 25 MG TAB PO SCH ×2 (08:43→21:09)
[2023-02-21] MEDS: NICOTINE 7 MG/24 HR TDSY TD SCH (08:44)
[2023-02-21] MEDS: NYSTATIN SUSP 500,000 U/5 ML UDC PO SCH ×4 (08:44→21:11)
[2023-02-21 13:48] LABS: BUN Creatinine Ratio 24.8 (10-20); Blood Urea Nitrogen 31 mg/dl (6-23); Carbon Dioxide 27 mmol/L (21-32); Chloride 96 mmol/L (98-107); Creatinine Clr Calc Pharmacy 108.3 ml/min; Est GFR (African American) 64.1 ml/min; Est GFR (Non-African American) 55.3 ml/min; Glucose 77 mg/dl (70-99(Fasting))
[2023-02-21 15:22] LABS: Potassium 4.3 mmol/L (3.5-5.1)
--- NOTE | 2023-02-21 15:31 | Cardiology Progress Note ---
Date of Service February 21, 2023 Assessment & Plan (1) Acute on chronic heart failure with preserved ejection fraction (HFpEF): (2) Edema: (3) Hypervolemia: (4) S/P mitral valve replacement with bioprosthetic valve: (5) Tobacco dependence: Plan ASSESSMENT/PLAN: 1. Heart failure with preserved EF: Likely acute on chronic. Significant improvement after approximately -3 L, but then became azotemic. Start Bumex 2 mg p.o. twice daily tomorrow. If weight trends up or other signs or symptoms of heart failure, would increase to 3 mg twice daily. Monitor renal function and electrolytes. Noncompliance likely playing a role in presentation as she missed doses of Bumex as an outpatient. We discussed the importance of very close follow-up as she is high risk for continued hospitalization. She is agreeable to weekly meetings (every other in person alternating weekly with telehealth). Strict I's and O's while hospitalized. Daily weights. Less than 2000 mg of sodium daily. Continue heart failure program. High risk for readmission as she has been admitted several times this year and according to some available records, has demonstrated noncompliance. SGLT2 inhibitor has not been initiated due to issues with recurrent UTI. 2. 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 She has had multiple limited echoes 2022. Slightly elevated transvalvular gradient in November 2022. SBE prophylaxis. Monitor as an outpatient. 3. Anticoagulation: No cardiac indication for chronic anticoagulation therapy known at this time. According to records, was initiated in July 2022 when discharged from mitral valve replacement hospitalization for DVT prophylaxis. Will defer ongoing use to primary hospitalist service. 4. Tobacco abuse: Smoking cessation. 5. Disposition: Cardiology will sign off at this time. Please call with any further questions or concerns. Patient care communicated with Dr. Taylor of the primary hospitalist service. Follow-up in 1 week with heart failure program. Admission and Anticipated Discharge Date Admission Date: February 18, 2023 Subjective Patient was seen this afternoon. She denies shortness of breath, chest pain, syncope, near syncope, palpitations, edema, or bleeding. She is hoping to go ho me soon. She was alone in her hospital room. Physical Exam Physical Exam: Gen.: No acute distress. Alert. HEENT: Anicteric sclera. Neck: Thick neck. No appreciable JVD. Cardiac: No ventricular heave. Regular without ectopy. Normal S1-S2. No audible murmur. No rubs or gallops. Pulmonary: Clear to auscultation bilaterally. Abdomen: Soft, nontender, nondistended, with normoactive bowel sounds. No bruits noted. Extremities: 2+ radial pulses bilaterally. 2+ posterior tibialis pulses bilaterally. No pitting edema. No cyanosis. Results & Data Vital Signs (Past 12 Hours) Vital Signs Temp Pulse Pulse Resp BP Pulse Ox O2 Del Method 02/21/23 11:52 36.8 C 75 17 109/67 95 Nasal Cannula 02/21/23 08:28 36.4 C L 61 18 107/66 95 Nasal Cannula 02/21/23 07:00 62 02/21/23 07:32 87 16 95 Nasal Cannula O2 Flow Rate 02/21/23 11:52 1.0 02/21/23 08:28 1.0 02/21/23 07:00 02/21/23 07:32 1 Intake & Output 02/19/23 02/20/23 02/21/23 02/22/23 06:59 06:59 06:59 06:59 Intake Total 610 / 610 890 / 890 490 / 490 665 / 665 Output Total 2200 / 2200 2400 / 2400 950 / 950 600 / 600 Balance -1590 / -1590 -1510 / -1510 -460 / -460 65 / 65 Weight 396 lb 13.313 oz 396 lb 6.258 oz 396 lb 6.258 oz Laboratory Results Laboratory Results - last 24 hr 02/20/23 02/21/23 02/21/23 15:15 07:47 14:43 Sodium 136 TNP 135 L Potassium 4.1 TNP 4.3 Chloride 97 L 96 L Carbon Dioxide 32 27 Anion Gap 7 TNP BUN 29 H 31 H Creatinine 1.60 H D 1.25 H D Est Cr Clr Drug Dosing 84.6 108.3 Est GFR ( Amer) 47.6 64.1 Est GFR (Non-Af Amer) 41.0 55.3 BUN/Creatinine Ratio 18.1 24.8 H Glucose 105 H 77 Calcium 9.0 9.0 Diagnostic Findings Telemetry personally reviewed: Sinus rhythm. No arrhythmia. Labs reviewed and notable for improving renal function, nearly to baseline. Medications Administered Current Inpatient Medications Acetaminophen (Acetaminophen 500 Mg Tab) 1,000 mg PO Q8 SHIRLEY Stop: 03/21/23 20:59 Last Admin: 02/21/23 15:15 Dose: 1,000 mg Al Hydrox/Mg Hydrox/Simethicone (Aluminum/Magnesium Susp 30 Ml Udc) 15 ml PO Q4H PRN PRN Reason: Dyspepsia Stop: 03/20/23 19:43 Albuterol (Albut/Ipratrop 3mg/0.5mg Neb 3 Ml Vial) 3 ml NEB Q4H PRN; Protocol PRN Reason: cough/wheezing/shortness of breath Stop: 03/20/23 19:43 Last Admin: 02/18/23 20:19 Dose: 3 ml Apixaban (Apixaban 2.5 Mg Tab) 2.5 mg PO BID SHIRLEY Stop: 03/20/23 20:59 Last Admin: 02/21/23 08:43 Dose: 2.5 mg Aripiprazole (Aripiprazole 15 Mg Tab) 15 mg PO DAILY SHIRLEY Stop: 03/21/23 08:59 Last Admin: 02/20/23 09:05 Dose: 15 mg Aspirin (Aspirin 81 Mg Chew) 81 mg PO DAILY SHIRLEY Stop: 03/21/23 08:59 Last Admin: 02/21/23 08:42 Dose: 81 mg Clonazepam (Clonazepam 0.25 Mg Tab) 0.25 mg PO HS SHIRLEY Stop: 03/23/23 20:59 Fluticasone Furoate (Fluticasone Furoate 100mcg 14 Puffs/Inhaler) 1 puffs INH DAILY SHIRLEY; Protocol Stop: 03/20/23 20:59 Last Admin: 02/21/23 08:43 Dose: 1 puffs Gabapentin (Gabapentin 300 Mg Cap) 300 mg PO TID SHIRLEY Stop: 03/20/23 20:59 Last Admin: 02/21/23 15:15 Dose: 300 mg Guaifenesin (Guaifenesin 600 Mg Tabcr) 600 mg PO Q12 SHIRLEY Stop: 03/20/23 20:59 Last Admin: 02/21/23 08:43 Dose: 600 mg Bumetanide 4 mg/ Syringe 16 mls @ 4 mls/min IV BID@0900,1700 SHIRLEY Stop: 03/20/23 19:43 Last Admin: 02/20/23 09:04 Dose: 4 mls/min Levothyroxine Sodium (Levothyroxine Sodium 88 Mcg Tablet) 88 mcg PO DAILYBB SHIRLEY Stop: 03/21/23 06:29 Last Admin: 02/21/23 06:10 Dose: 88 mcg Magnesium Hydroxide (Magnesium Hydroxide Susp 30 Ml Udc) 30 ml PO Q12H PRN PRN Reason: Constipation Stop: 03/20/23 19:43 Magnesium Oxide (Magnesium Oxide 400 Mg Tab) 400 mg PO DAILY SHIRLEY Stop: 03/21/23 08:59 Last Admin: 02/21/23 08:43 Dose: 400 mg Melatonin (Melatonin 3 Mg Tab) 3 mg PO HS SHIRLEY Stop: 03/20/23 20:59 Last Admin: 02/20/23 20:24 Dose: 3 mg Methadone HCl (Methadone Oral Soln 2 Mg/Ml) 72 mg PO QPM SHIRLEY Stop: 03/05/23 20:59 Last Admin: 02/20/23 20:23 Dose: 72 mg Metoprolol Tartrate (Metoprolol Tartrate 25 Mg Tab) 25 mg PO BID SHIRLEY Stop: 03/20/23 20:59 Last Admin: 02/21/23 08:43 Dose: 25 mg Miscellaneous (Remove Nicoderm Patch) 1 each N/A DAILY@0859 [facility] Stop: 03/21/23 08:58 Last Admin: 02/21/23 08:44 Dose: Not Given Multivitamins (Multivitamin Tab) 1 tab PO DAILY SHIRLEY Stop: 03/21/23 08:59 Last Admin: 02/21/23 08:43 Dose: 1 tab Nicotine (Nicotine 7 Mg/24 Hr Tdsy) 7 mg TD QAM SHIRLEY Stop: 03/21/23 08:59 Last Admin: 02/21/23 08:44 Dose: Not Given Non-Formulary Medication (Patient's Own Controlled Med 3) 1 ea PO QPM SHIRLEY Stop: 03/05/23 20:59 Last Admin: 02/20/23 21:33 Dose: Not Given Nystatin (Nystatin Susp 500,000 U/5 Ml Udc) 5 ml PO QID SHIRLEY Stop: 02/28/23 20:59 Last Admin: 02/21/23 14:07 Dose: Not Given Polyethylene Glycol (Polyethylene (Miralax) 17 Gm Pack) 17 gm PO BID SHIRLEY Stop: 03/23/23 08:59 Last Admin: 02/21/23 08:42 Dose: 17 gm Potassium Chloride (Potassium Chloride Crtab 20 Meq Tabcr) 20 meq PO BID SHIRLEY Stop: 03/20/23 20:59 Last Admin: 02/21/23 08:43 Dose: 20 meq Sertraline HCl (Sertraline Hcl 100 Mg Tablet) 200 mg PO DAILY SHIRLEY Stop: 03/21/23 08:59 Last Admin: 02/21/23 08:43 Dose: 200 mg Sodium Chloride (Sodium Chlor 7% 4 Ml Neb) 4 ml NEB BIDR SHIRLEY Stop: 03/20/23 18:59 Last Admin: 02/21/23 07:31 Dose: 4 ml Thiamine HCl (Thiamine Hcl 100 Mg Tab) 200 mg PO BID SHIRLEY Stop: 03/21/23 06:59 Last Admin: 02/21/23 08:43 Dose: 200 mg Trazodone HCl (Trazodone Hcl 50 Mg Tab) 50 mg PO HS SHIRLEY Stop: 03/20/23 20:59 Last Admin: 02/20/23 20:24 Dose: 50 mg PG Care Time/CCT Total # of Minutes Spent Total Time Spent with Patient: Total time spent is greater than 50% in coordination of care (as documented) at patient's floor/unit and/or counseling patient: Coding Level of Care Code 10863 SUB INP/OBS CARE 2/35MIN Diagnoses Acute on chronic heart failure with preserved ejection fraction (HFpEF) I50.33 Edema R60.9 Hypervolemia E87.70 S/P mitral valve replacement with bioprosthetic valve Z95.3 Tobacco dependence F17.200
[2023-02-21] MEDS: traZODone HCL 50 MG TAB PO SCH (21:09)
--- NOTE | 2023-02-21 21:11 | Hospitalist Progress Note ---
Date of Service February 21, 2023 Assessment & Plan (1) Acute on chronic heart failure with preserved ejection fraction (HFpEF): Plan: per the chart she is about 11-12kg in weight higher than the prior hospitalization in early January 2023. she had escalating doses of bumex in the outpatient setting and despite such continued with weight gain. she was diuresed with bumex 4mg IV BID and developed ANTWAN with such. bumex now on hold. fortunately ANTWAN is just about resolved. Spoke with Dr Tovar - will resume bumex tomorrow but at lower dose of 2mg BID. noncompliance with diet? hypothyroidism contributing to decompensation? other factors? does have very mild cirrhosis on liver u/s but doubt it is playing a large role in her volume status. appreciate cardiology consultation. recheck BMP am. (2) ANTWAN (acute kidney injury): Plan: cause - over-diuresis cont to hold bumex peak Cr 2 now 1.2 resume bumex tomorrow bmp am (3) Sleep apnea: Plan: highly suspected to have such likely severe qualified for nocturnal O2 on prior hospital overnight oximetry study cont NC O2 2 liters needs formal sleep study in future - I contacted Dr Escamilla with [facility] who will try to see her after d/c yusra will ask nurse navigator to set f/u appt with Dr Escamilla (4) Hypothyroidism: Plan: TSH slowly improving but not at goal Increased synthroid to 88mcg daily with repeat TSH 6 weeks (5) Iron deficiency: Plan: Fe studies this admission c/w iron deficiency. will give 300mg of IV venofer today then repeat again tomorrow. plan 3 doses in total. ferritin - 12.8. check fecal occult. if negative consider celiac testing. (6) Hepatitis C: Plan: previous HepC testing was positive. liver u/s with evidence of severe fatty liver and some anatomical features of early cirrhosis. but doubt it is contributing heavily to volume issues at this time. given the early cirrhotic findings will refer to ID post-discharge for consideration of Rx of the HepC. consider vitamin E for fatty liver. (7) Depression: Plan: appreciate psych consultation. they recommend d/c of abilify. I spoke with Michelle about her comfort level with that and she is ok with discontinuation of abilify. psych also advised weaning off klonipin. to that end will cut dose to 0.25mg at HS and wean over next couple of weeks. 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 remains on asa 81mg daily for secondary prevention (11) Back pain: Plan: chronic toradol x 1 again today (12) Fatty liver: Plan: see #6 above consider Vitamin E supplementation (13) Cirrhosis: Plan: see #6 above (14) Morbid obesity: Plan: BMI 60 (15) Opioid use disorder, severe, in sustained remission: Plan: cont methadone 72mg daily she follows with local methadone clinic for such Plan DVT proph - Eliquis 2.5mg BID PT,OT evals when she is out of bed try to obtain standing scale weight pt's mother extensively updated by phone yesterday evening care d/w cardiology constipation - dulcolax PO x 1 today cont miralax BID patient to remain hospitalized until Friday due to needing her home O2 machine fixed, etc Admission and Anticipated Discharge Date Admission Date: February 18, 2023 Subjective no events overnight she is breathing comfortably no dyspnea sleeping ok tele overnight wnl has some back pain - chronic eating well minimal cough heard from pt's mother that the home oxygen supplier needs to come to their house to fix the oxygen machine Review of Systems Review of Systems: gen - no fever or chills cv - no chest pain pulm - no wheezing GI - ongoing constipation Physical Exam Physical Exam: gen - morbidly obese, NAD, looks better today mouth - MMM neck - no obvious JVD heart - RRR, s1 s2, 1/6 VARGAS LUSB lungs - mildly decreased BS bases; otherwise CTA b/l; no rales; no wheeze abd - soft, mildly distended, BS+, NT, no HSM, hernia present R abdomen - reducible ext - no edema b/l, pulses 2+ b/l neuro - left sided hemiplegia - baseline psych - flat affect Results & Data Results & Data Vital Signs (Past 12 Hours) Vital Signs Temp Pulse Resp BP Pulse Ox O2 Del Method O2 Flow Rate 02/21/23 19:56 36.8 C 76 18 108/66 98 Room Air 02/21/23 19:27 76 16 95 Room Air 02/21/23 15:37 36.8 C 83 17 109/57 L 93 Room Air 02/21/23 11:52 36.8 C 75 17 109/67 95 Nasal Cannula 1.0 Laboratory Results Laboratory Results - last 24 hr 02/21/23 02/21/23 07:47 14:43 Sodium TNP 135 L Potassium TNP 4.3 Chloride 96 L Carbon Dioxide 27 Anion Gap TNP BUN 31 H Creatinine 1.25 H D Est Cr Clr Drug Dosing 108.3 Est GFR ( Amer) 64.1 Est GFR (Non-Af Amer) 55.3 BUN/Creatinine Ratio 24.8 H Glucose 77 Calcium 9.0 PG Care Time/CCT Total # of Minutes Spent Total Time Spent with Patient: Total time spent is greater than 50% in coordination of care (as documented) at patient's floor/unit and/or counseling patient: Coding Level of Care Code 85569 SUB INP/OBS CARE 3/50MIN Diagnoses Acute on chronic heart failure with preserved ejection fraction (HFpEF) I50.33 ANTWAN (acute kidney injury) N17.9 Sleep apnea G47.30 Hypothyroidism E03.9 Iron deficiency E61.1 Hepatitis C B19.20 Depression F32.A Splenomegaly R16.1 H/O mitral valve replacement Z95.2 History of stroke Z86.73 Back pain M54.9 Fatty liver K76.0 Cirrhosis K74.60 Morbid obesity E66.01 Opioid use disorder, severe, in sustained remission F11.21
[2023-02-21] MEDS: PATIENT'S OWN CONTROLLED MED 3 PO SCH (21:13)
[2023-02-21] MEDS: METHADONE ORAL SOLN 2 MG/ML PO SCH (21:13)
[2023-02-21] MEDS: MELATONIN 3 MG TAB PO SCH (21:14)
[2023-02-21] MEDS: clonazePAM 0.25 MG TAB PO SCH (21:24)
[2023-02-22] MEDS: ACETAMINOPHEN 500 MG TAB PO SCH ×3 (05:42→21:19)
[2023-02-22] MEDS: LEVOTHYROXINE SODIUM 88 MCG TABLET PO SCH (05:42)
[2023-02-22 06:32] LABS: Hematocrit (blood only) 32.4 % (37.0-47.0); Hemoglobin 9.4 g/dl (12.0-16.0); Mean Corpuscular Hemoglobin 21.4 pg (25.0-34.0); Mean Corpuscular Volume 73.6 fL (80.0-100.0); Mean Platelet Volume 9.7 fL (9.4-12.4); Nucleated RBC % (auto) 1.4 %; Platelet Count 500 K/uL (130-400); RDW Coefficient of Variation 14.4 % (11.5-14.5); White Blood Count 7.22 K/ul (4.8-10.8)
[2023-02-22 07:10] LABS: Calcium 9.1 mg/dl (8.6-10.3); Potassium 4.5 mmol/L (3.5-5.1)
--- NOTE | 2023-02-22 07:10 | Electrocardiogram Report ---
Test Reason : Blood Pressure : / mmHG Vent. Rate : 075 BPM Atrial Rate : 075 BPM P-R Int : 160 ms QRS Dur : 086 ms QT Int : 430 ms P-R-T Axes : 053 044 031 degrees QTc Int : 480 ms Normal sinus rhythm Prolonged QT Abnormal ECG When compared with ECG of 17-JAN-2023 14:57, No significant change was found Confirmed by Leonard Tovar ([id number]) on 02/22/2023 7:10:21 AM Referred By: REFERRED SELF Confirmed By:Leonard Tovar
[2023-02-22 07:16] LABS: BUN Creatinine Ratio 25.3 (10-20); Creatinine Clr Calc Pharmacy 136.7 ml/min; Est GFR (Non-African American) 73.3 ml/min
[2023-02-22] MEDS: SODIUM CHLOR 7% 4 ML NEB NEB SCH ×2 (07:16→19:34)
[2023-02-22] MEDS ORDERED: BUMETANIDE 1 MG TAB PO SCH (09:00)
[2023-02-22] MEDS: SERTRALINE HCL 100 MG TABLET PO SCH (09:35)
[2023-02-22] MEDS: POLYETHYLENE (MIRALAX) 17 GM PACK PO SCH ×2 (09:35→20:12)
[2023-02-22] MEDS: POTASSIUM CHLORIDE CRTAB 20 MEQ TABCR PO SCH ×2 (09:36→20:21)
[2023-02-22] MEDS: MULTIVITAMIN TAB PO SCH (09:36)
[2023-02-22] MEDS: APIXABAN 2.5 MG TAB PO SCH ×2 (09:36→20:20)
[2023-02-22] MEDS: METOPROLOL TARTRATE 25 MG TAB PO SCH ×2 (09:36→20:20)
[2023-02-22] MEDS: ASPIRIN 81 MG CHEW PO SCH (09:36)
[2023-02-22] MEDS: MAGNESIUM OXIDE 400 MG TAB PO SCH (09:36)
[2023-02-22] MEDS: NYSTATIN SUSP 500,000 U/5 ML UDC PO SCH ×5 (09:37→20:21)
[2023-02-22] MEDS: THIAMINE HCL 100 MG TAB PO SCH ×2 (09:37→20:20)
[2023-02-22] MEDS: guaiFENesin 600 MG TABCR PO SCH ×2 (09:37→20:12)
[2023-02-22] MEDS: GABAPENTIN 300 MG CAP PO SCH ×3 (09:37→20:19)
[2023-02-22] MEDS: NICOTINE 7 MG/24 HR TDSY TD SCH (09:37)
[2023-02-22] MEDS: FLUTICASONE FUROATE 100MCG 14 PUFFS/INHALER INH SCH (09:38)
[2023-02-22] MEDS ORDERED: IRON SUCROSE 300 MG in SODIUM CHLORIDE 0.9% 250 ML IV ONE (10:29)
[2023-02-22] MEDS ORDERED: hydrOXYzine HCl 25 MG TAB PO STA (14:22)
[2023-02-22] MEDS: BUMETANIDE 1 MG TAB PO SCH (18:03)
[2023-02-22] MEDS: MELATONIN 3 MG TAB PO SCH (20:19)
[2023-02-22] MEDS: clonazePAM 0.25 MG TAB PO SCH (20:19)
[2023-02-22] MEDS: traZODone HCL 50 MG TAB PO SCH (20:20)
[2023-02-22] MEDS: METHADONE ORAL SOLN 2 MG/ML PO SCH (20:35)
[2023-02-22] MEDS: PATIENT'S OWN CONTROLLED MED 3 PO SCH (20:35)
--- NOTE | 2023-02-22 21:28 | Hospitalist Progress Note ---
Date of Service February 22, 2023 Assessment & Plan (1) Acute on chronic heart failure with preserved ejection fraction (HFpEF): Plan: decompensation resolved. ANTWAN (due to over-diuresis) resolved. resume bumex at lower dose of 2mg BID. still need a standing scale weight. cause of decompensation at time of admission -- noncompliance with diet? hypothyroidism contributing to decompensation? other factors? does have very mild cirrhosis on liver u/s but doubt it is playing a large role in her volume status. appreciate cardiology consultation. recheck BMP am. (2) ANTWAN (acute kidney injury): Plan: cause - over-diuresis peak Cr 2 now 0.99 resolved resume bumex today - 2mg BID bmp am (3) Sleep apnea: Plan: highly suspected to have such likely severe qualified for nocturnal O2 on prior hospital overnight oximetry study cont NC O2 2 liters while awaiting a formal sleep study nurse velma for out team working on referral for sleep study (4) Hypothyroidism: Plan: TSH slowly improving but not at goal Increased synthroid to 88mcg daily with repeat TSH 6 weeks (5) Iron deficiency: Plan: Fe studies this admission c/w iron deficiency. s/p venofer 300mg IV x 1 02/21 will give 2nd dose today then another dose tomorrow ferritin - 12.8. check fecal occult. if negative consider celiac testing. (6) Hepatitis C: Plan: previous HepC testing was positive. liver u/s with evidence of severe fatty liver and some anatomical features of early cirrhosis. but doubt it is contributing heavily to volume issues at this time. given the early cirrhotic findings will refer to ID post-discharge for consideration of Rx of the HepC. consider vitamin E for fatty liver. (7) Depression: Plan: appreciate psych consultation. they recommend d/c of abilify. I spoke with Michelle about her comfort level with that and she is ok with discontinuation of abilify. psych also advised weaning off klonipin. to that end have changed klonipin to 0.25mg at HS and wean over next couple of weeks. 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 remains on asa 81mg daily for secondary prevention (11) Back pain: Plan: chronic no issues today (12) Fatty liver: Plan: see #6 above consider Vitamin E supplementation (13) Cirrhosis: Plan: see #6 above (14) Morbid obesity: Plan: BMI 60 (15) Opioid use disorder, severe, in sustained remission: Plan: cont methadone 72mg daily she follows with local methadone clinic for such (16) Right knee pain: Plan: 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 as well as DJD from morbid obesity start voltaren gel 4gm QID Plan DVT proph - Eliquis 2.5mg BID PT,OT when able when she is out of bed try to obtain standing scale weight pt's mother extensively updated by phone late last week constipation - cont miralax BID patient to remain hospitalized until Friday due to needing her home O2 machine fixed, etc Admission and Anticipated Discharge Date Admission Date: February 18, 2023 Subjective had anxiety this afternoon requiring a dose of atarax this was effective for her anxiety she also c/o right knee pain chronic had torn ACL while in high school - s/p repair has had pain ever since has never tried voltaren gel for such breathing comfortably no other complaints Review of Systems Review of Systems: gen - no fever cv - no chest pain or orthopnea pulm - no dyspnea at rest GI - no abd pain Physical Exam Physical Exam: gen - morbidly obese, NAD, looks good mouth - MMM neck - no obvious JVD heart - RRR, s1 s2, 1/6 VARGAS LUSB lungs - CTA b/l today abd - soft, ND, BS+, NT, no HSM, hernia present R abdomen - reducible ext - no edema b/l, pulses 2+ b/l neuro - left sided hemiplegia - baseline psych - flat affect Results & Data Results & Data Vital Signs (Past 12 Hours) Vital Signs Temp Pulse Resp BP Pulse Ox O2 Del Method O2 Del Method 02/22/23 19:56 Nasal Cannula 02/22/23 19:56 Nasal Cannula 02/22/23 19:19 36.5 C 69 19 108/67 100 Nasal Cannula 02/22/23 10:59 36.8 C 74 18 102/64 96 Nasal Cannula O2 Flow Rate O2 Flow Rate 02/22/23 19:56 1 02/22/23 19:56 1 02/22/23 19:19 2 02/22/23 10:59 2.0 Laboratory Results Laboratory Results - last 24 hr 02/22/23 02/22/23 05:48 06:19 WBC 7.22 RBC 4.40 Hgb 9.4 L Hct 32.4 L MCV 73.6 L MCH 21.4 L MCHC 29.0 L RDW Std Deviation 38.0 RDW Coeff of Alexia 14.4 Plt Count 500 H MPV 9.7 Absolute Nucleated RBC 0.10 Nucleated RBC % (auto) 1.4 Sodium 136 Potassium 4.5 Chloride 101 Carbon Dioxide 27 Anion Gap 8 BUN 25 H Creatinine 0.99 Est Cr Clr Drug Dosing 136.7 Est GFR ( Amer) 85.0 Est GFR (Non-Af Amer) 73.3 BUN/Creatinine Ratio 25.3 H Glucose 92 Calcium 9.1 PG Care Time/CCT Total # of Minutes Spent Total Time Spent with Patient: Total time spent is greater than 50% in coordination of care (as documented) at patient's floor/unit and/or counseling patient: Coding Level of Care Code 20875 SUB INP/OBS CARE 2/35MIN Diagnoses Acute on chronic heart failure with preserved ejection fraction (HFpEF) I50.33 ANTWAN (acute kidney injury) N17.9 Sleep apnea G47.30 Hypothyroidism E03.9 Iron deficiency E61.1 Hepatitis C B19.20 Depression F32.A Splenomegaly R16.1 H/O mitral valve replacement Z95.2 History of stroke Z86.73 Back pain M54.9 Fatty liver K76.0 Cirrhosis K74.60 Morbid obesity E66.01 Opioid use disorder, severe, in sustained remission F11.21 Right knee pain M25.561
[2023-02-22] MEDS: DICLOFENAC SOD 1% GEL 100 GM TUBE EXT SCH (21:41)
[2023-02-23] MEDS: LEVOTHYROXINE SODIUM 88 MCG TABLET PO SCH (06:02)
[2023-02-23] MEDS: ACETAMINOPHEN 500 MG TAB PO SCH ×3 (06:02→21:31)
[2023-02-23 08:08] LABS: Calcium 9.3 mg/dl (8.6-10.3); Potassium 4.3 mmol/L (3.5-5.1)
[2023-02-23 08:14] LABS: BUN Creatinine Ratio 21.3 (10-20); Creatinine Clr Calc Pharmacy 147.4 ml/min; Est GFR (African American) 96.6 ml/min; Est GFR (Non-African American) 83.4 ml/min
[2023-02-23] MEDS: BUMETANIDE 1 MG TAB PO SCH ×2 (08:23→16:30)
[2023-02-23] MEDS: NYSTATIN SUSP 500,000 U/5 ML UDC PO SCH ×4 (08:23→20:11)
[2023-02-23] MEDS: POTASSIUM CHLORIDE CRTAB 20 MEQ TABCR PO SCH ×2 (08:24→20:09)
[2023-02-23] MEDS: THIAMINE HCL 100 MG TAB PO SCH ×2 (08:24→20:10)
[2023-02-23] MEDS: GABAPENTIN 300 MG CAP PO SCH ×3 (08:24→20:10)
[2023-02-23] MEDS: POLYETHYLENE (MIRALAX) 17 GM PACK PO SCH ×2 (08:24→20:05)
[2023-02-23] MEDS: APIXABAN 2.5 MG TAB PO SCH ×2 (08:24→20:12)
[2023-02-23] MEDS: SERTRALINE HCL 100 MG TABLET PO SCH (08:24)
[2023-02-23] MEDS: NICOTINE 7 MG/24 HR TDSY TD SCH (08:25)
[2023-02-23] MEDS: guaiFENesin 600 MG TABCR PO SCH ×2 (08:25→20:05)
[2023-02-23] MEDS: ASPIRIN 81 MG CHEW PO SCH (08:25)
[2023-02-23] MEDS: METOPROLOL TARTRATE 25 MG TAB PO SCH ×2 (08:25→20:13)
[2023-02-23] MEDS: MAGNESIUM OXIDE 400 MG TAB PO SCH (08:25)
[2023-02-23] MEDS: MULTIVITAMIN TAB PO SCH (08:25)
[2023-02-23] MEDS: FLUTICASONE FUROATE 100MCG 14 PUFFS/INHALER INH SCH (08:26)
[2023-02-23] MEDS: DICLOFENAC SOD 1% GEL 100 GM TUBE EXT SCH ×4 (08:26→20:05)
[2023-02-23 08:30] LABS: Basophils # (auto) 0.05 K/uL (0.00-0.20); Basophils % (auto) 0.7 %; Eosinophils # (auto) 0.36 K/uL (0.00-0.50); Eosinophils % (auto) 5.2 %; Hematocrit (blood only) 36.1 % (37.0-47.0); Hemoglobin 10.6 g/dl (12.0-16.0); Immature Granulocytes # (auto) 0.05 K/uL (0.01-0.20); Immature Granulocytes % (auto) 0.7 %; Lymphocytes # (auto) 2.36 K/uL (1.20-3.40); Lymphocytes % (auto) 34.3 %; Mean Corpuscular Hemoglobin 21.5 pg (25.0-34.0); Mean Corpuscular Hgb Conc 29.4 g/dL (32.0-36.0); Mean Corpuscular Volume 73.1 fL (80.0-100.0); Mean Platelet Volume 9.7 fL (9.4-12.4); Monocytes # (auto) 0.39 K/uL (0.11-0.59); Monocytes % (auto) 5.7 %; Neutrophils # (auto) 3.67 K/uL (1.40-6.50); Neutrophils % (auto) 53.4 %; Platelet Count 465 K/uL (130-400); RDW Coefficient of Variation 14.7 % (11.5-14.5); RDW Standard Deviation 38.1 fL (36.4-46.3); Red Blood Count 4.94 M/uL (4.20-5.40); White Blood Count 6.88 K/ul (4.8-10.8)
[2023-02-23] MEDS ORDERED: IRON SUCROSE 300 MG in SODIUM CHLORIDE 0.9% 250 ML IV ONE (09:00)
[2023-02-23] MEDS ORDERED: hydrOXYzine HCl 25 MG TAB PO STA (16:16)
[2023-02-23] MEDS: clonazePAM 0.25 MG TAB PO SCH (20:09)
[2023-02-23] MEDS: METHADONE ORAL SOLN 2 MG/ML PO SCH (20:09)
[2023-02-23] MEDS: PATIENT'S OWN CONTROLLED MED 3 PO SCH (20:11)
[2023-02-23] MEDS: MELATONIN 3 MG TAB PO SCH (20:11)
[2023-02-23] MEDS: traZODone HCL 50 MG TAB PO SCH (20:12)
[2023-02-23] MEDS ORDERED: TRIAMCINOLONE ACET 0.025% CR 15 GM TUBE EXT PRN (20:12)
--- NOTE | 2023-02-23 21:16 | Hospitalist Progress Note ---
Date of Service February 23, 2023 Assessment & Plan (1) Acute on chronic heart failure with preserved ejection fraction (HFpEF): Plan: decompensation resolved. ANTWAN (due to over-diuresis) resolved. cont bumex 2mg BID. consider low-dose aldactone. standing scale weight today is near baseline dry weight. cause of decompensation at time of admission -- noncompliance with diet? hypothyroidism contributing to decompensation? other factors? does have very mild cirrhosis on liver u/s but doubt it is playing a large role in her volume status. appreciate cardiology consultation. recheck BMP am for stability. (2) ANTWAN (acute kidney injury): Plan: cause - over-diuresis peak Cr 2 now 0.89 resolved bmp am (3) Sleep apnea: Plan: highly suspected to have such likely severe qualified for nocturnal O2 on prior hospital overnight oximetry study cont NC O2 2 liters while awaiting a formal sleep study nurse velma for out team working on referral for sleep study (4) Hypothyroidism: Plan: TSH slowly improving but not at goal Increased synthroid to 88mcg daily with repeat TSH 6 weeks (5) Iron deficiency: Plan: Fe studies this admission c/w iron deficiency. s/p venofer 300mg IV x 3 doses - 3rd dose today. tolerated each w/o difficulty. ferritin - 12.8. check fecal occult. if negative consider celiac testing. (6) Hepatitis C: Plan: previous HepC testing was positive. liver u/s with evidence of severe fatty liver and some anatomical features of early cirrhosis. but doubt it is contributing heavily to volume issues at this time. given the early cirrhotic findings will refer to ID post-discharge for consideration of Rx of the HepC. consider vitamin E for fatty liver. (7) Depression: Plan: appreciate psych consultation. they recommend d/c of abilify. I spoke with Michelle about her comfort level with that and she is ok with disc ontinuation of abilify. psych also advised weaning off klonipin. to that end have changed klonipin to 0.25mg at HS and wean over next couple of weeks. 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 remains on asa 81mg daily for secondary prevention (11) Back pain: Plan: chronic no issues today she did not mention any pain to met during the visit (12) Fatty liver: Plan: see #6 above consider Vitamin E supplementation (13) Cirrhosis: Plan: see #6 above consider adding low-dose aldactone in addition to bumex (14) Morbid obesity: Plan: BMI 57 (15) Opioid use disorder, severe, in sustained remission: Plan: cont methadone 72mg daily she follows with local methadone clinic for such (16) Right knee pain: Plan: 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 as well as DJD from morbid obesity voltaren gel 4gm QID Plan DVT proph - Eliquis 2.5mg BID PT,OT constipation - cont miralax BID and add senna d/c home tomorrow w/ her mother Admission and Anticipated Discharge Date Admission Date: February 18, 2023 Subjective tele wnl overnight feeling well offered to take horowitz out - she was agreeable was out of bed today did a little walking eating well had some anxiety requiring hydroxyzine which was effective anxious to get home tomorrow - mother coming in AM with her wheelchair Review of Systems Review of Systems: gen - feels good, chronic fatigue/sleepiness unchanged cv - no chest pain, no orthopnea pulm - occasional cough; no dyspnea at rest; no GUZMAN today GI - no N/V Physical Exam Physical Exam: gen - morbidly obese, NAD, looks good again today mouth - MMM neck - no obvious JVD heart - RRR, s1 s2, 1/6 VARGAS LUSB lungs - CTA b/l today; no rales; no wheeze abd - soft, ND, BS+, NT, no HSM, hernia present R abdomen - reducible ext - no edema b/l, pulses 2+ b/l neuro - left sided hemiplegia - baseline / unchanged psych - affect slightly more full today Results & Data Results & Data Vital Signs (Past 12 Hours) Vital Signs Temp Pulse Resp BP Pulse Ox O2 Del Method 02/23/23 20:14 36.7 C 77 16 116/69 93 Room Air 02/23/23 19:38 Room Air 02/23/23 16:36 36.7 C 69 18 111/64 96 Room Air 02/23/23 10:51 37.0 C 69 18 119/71 94 Room Air Laboratory Results Laboratory Results - last 24 hr 02/23/23 02/23/23 07:44 07:44 WBC 6.88 RBC 4.94 Hgb 10.6 L Hct 36.1 L MCV 73.1 L MCH 21.5 L MCHC 29.4 L RDW Std Deviation 38.1 RDW Coeff of Alexia 14.7 H Plt Count 465 H MPV 9.7 Immature Gran % (Auto) 0.7 Neut % (Auto) 53.4 Lymph % (Auto) 34.3 Burke % (Auto) 5.7 Eos % (Auto) 5.2 Baso % (Auto) 0.7 Neut # (Auto) 3.67 Lymph # (Auto) 2.36 Burke # (Auto) 0.39 Eos # (Auto) 0.36 Baso # (Auto) 0.05 Immature Gran # (Auto) 0.05 Sodium 136 Potassium 4.3 Chloride 102 Carbon Dioxide 28 Anion Gap 6 BUN 19 Creatinine 0.89 Est Cr Clr Drug Dosing 147.4 Est GFR ( Amer) 96.6 Est GFR (Non-Af Amer) 83.4 BUN/Creatinine Ratio 21.3 H Glucose 94 Calcium 9.3 PG Care Time/CCT Total # of Minutes Spent Total Time Spent with Patient: Total time spent is greater than 50% in coordination of care (as documented) at patient's floor/unit and/or counseling patient: Coding Level of Care Code 92846 SUB INP/OBS CARE 2/35MIN Diagnoses Acute on chronic heart failure with preserved ejection fraction (HFpEF) I50.33 ANTWAN (acute kidney injury) N17.9 Sleep apnea G47.30 Hypothyroidism E03.9 Iron deficiency E61.1 Hepatitis C B19.20 Depression F32.A Splenomegaly R16.1 H/O mitral valve replacement Z95.2 History of stroke Z86.73 Back pain M54.9 Fatty liver K76.0 Cirrhosis K74.60 Morbid obesity E66.01 Opioid use disorder, severe, in sustained remission F11.21 Right knee pain M25.561
[2023-02-24] MEDS: ACETAMINOPHEN 500 MG TAB PO SCH (06:01)
[2023-02-24] MEDS: LEVOTHYROXINE SODIUM 88 MCG TABLET PO SCH (06:01)
[2023-02-24 06:41] LABS: Calcium 8.9 mg/dl (8.6-10.3); Potassium 4.4 mmol/L (3.5-5.1)
[2023-02-24 06:47] LABS: Creatinine Clr Calc Pharmacy 138.2 ml/min; Est GFR (African American) 89.3 ml/min; Est GFR (Non-African American) 77.1 ml/min
[2023-02-24] MEDS ORDERED: SENNA 8.6 MG TAB PO SCH (09:00)
[2023-02-24] MEDS: NICOTINE 7 MG/24 HR TDSY TD SCH (09:21)
[2023-02-24] MEDS: ASPIRIN 81 MG CHEW PO SCH (09:33)
[2023-02-24] MEDS: APIXABAN 2.5 MG TAB PO SCH (09:33)
[2023-02-24] MEDS: GABAPENTIN 300 MG CAP PO SCH (09:34)
[2023-02-24] MEDS: DICLOFENAC SOD 1% GEL 100 GM TUBE EXT SCH ×2 (09:34→13:07)
[2023-02-24] MEDS: BUMETANIDE 1 MG TAB PO SCH (09:34)
[2023-02-24] MEDS: FLUTICASONE FUROATE 100MCG 14 PUFFS/INHALER INH SCH (09:34)
[2023-02-24] MEDS: POLYETHYLENE (MIRALAX) 17 GM PACK PO SCH (09:35)
[2023-02-24] MEDS: MULTIVITAMIN TAB PO SCH (09:35)
[2023-02-24] MEDS: MAGNESIUM OXIDE 400 MG TAB PO SCH (09:35)
[2023-02-24] MEDS: NYSTATIN SUSP 500,000 U/5 ML UDC PO SCH ×2 (09:35→13:07)
[2023-02-24] MEDS: guaiFENesin 600 MG TABCR PO SCH (09:35)
[2023-02-24] MEDS: METOPROLOL TARTRATE 25 MG TAB PO SCH (09:35)
[2023-02-24] MEDS: THIAMINE HCL 100 MG TAB PO SCH (09:36)
[2023-02-24] MEDS: SERTRALINE HCL 100 MG TABLET PO SCH (09:36)
[2023-02-24] MEDS: POTASSIUM CHLORIDE CRTAB 20 MEQ TABCR PO SCH (09:36)
--- NOTE | 2023-02-24 13:04 | Discharge Summary ---
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 Recent hospitalization for such last month with 15lb weight gain, where she was recently diagnosed with hypothyroidism as well as possibility underlying untreated sleep apnea. Per CHF note, after discharge, weight gain 15lb in 4-10 days with increased LE edema and was switched to Bumex 2mg BID and increased to 4mg BID most recently. Patient evaluated in B3B, mom and daughter at bedside. Patient very sleep/fatigued, will open eyes, answering questions quickly, falling back asleep. Denies chest pain, abdominal pain/nausea. Wanting something to drink/eat, fatigue/sleepy appearing. Per mom, reports patient yesterday starting more fatigue/sleepy, not much of an appetite for dinner. Ate another bite during evening but fell back asleep.Reports feeling off/in a daze, eyes rolling in back of head on occasion. Sleeps in recliner chair in the living room, and mom stays up with her. Has been very fatigued/sleepy over the past couple of days. Typically wears O2, 2L HS. Having period of apnea on exam. Reports doesn't get good sleep. Per mom, home unit oxygen had yellow light, unclear if was actually using. Complaints of sinus congestion/dry mouth with oxygen, does not use humidification. Mom is working on getting new unit at home Mom reports this morning, patient went to bathroom this morning and said she didn't pee, but family noticied she had. Reports darkened yellow in color/foul smelling reported by daughter at bedside. Patient states she does not want to get up to go to the bathroom at present, assisted nursing w/ purewick for now. Discussed possible purewick at home if needed. Reports compliance with the bumex. Regarding her hypothyroidism, mother reports she had been compliant with her Synthroid, taking on empty stomach before eating. TSH elevated and will adjust/increase. Regarding suspected sleep apnea, mom states she had been working on more pertinent issues w/ edema/swelling and not arranged formal sleep study yet outpatient. They are in the middle of getting patient moved back into their house so someone is with her all the time. Volume overloaded on exam with recorded weight 179kg (393lb) , dry weight to be "370lb for now" per CHF notes. Prior discussion about possible starting SGLT2i in the future and likely benefit from such. Discussed w/ mom, clonazepam not ideal w/ untreated CARINA/sedation/hypercapnea. CXR w/ cardiomegaly/pulmonary vascular congestion. Does note possible mild R basilar opacity could reflect atelectasis vs focus of pneumonia Given bumex 4mg IV x 1, On 2L presently, wet/moist cough, difficulty bringing up phlegm but appears to have mucus. Will order nebs/hypertonic saline. Patient on methadone, 72mg at night - per mom, will need tonight Discharge Exam gen - morbidly obese, NAD, looks good again today mouth - MMM neck - no obvious JVD heart - RRR, s1 s2, 1/6 VARGAS LUSB lungs - CTA b/l today; no rales; no wheeze abd - soft, ND, BS+, NT, no HSM, hernia present R abdomen - reducible ext - no edema b/l, pulses 2+ b/l neuro - left sided hemiplegia - baseline / unchanged psych - affect slightly more full today Discharge Data Allergies Allergy/AdvReac Type Severity Reaction Status Date / Time sulfamethoxazole Allergy Severe Anaphylaxis Verified 02/18/23 15:02 [From Bactrim] trimethoprim [From Bactrim] Allergy Severe Anaphylaxis Verified 02/18/23 15:02 atorvastatin AdvReac Intermediate Muscle Pain Verified 02/18/23 15:02 Consultations 02/18/23 13:35 ED Decision to Admit Stat 02/18/23 19:44 Consult Cardiology Routine Consult Psychiatry Routine [facility] CHF Program Referral Routine Ordered Studies 02/18/23 11:16 CT head/brain wo con Stat CT lumbar spine wo con Stat 02/18/23 17:03 CT chest diagnostic wo con Urgent 02/20/23 US liver Routine Hospital Course (1) Acute on chronic heart failure with preserved ejection fraction (HFpEF): decompensation resolved. ANTWAN (due to over-diuresis) resolved. cont bumex 2mg BID. consider low-dose aldactone. standing scale weight today is near baseline dry weight. cause of decompensation at time of admission -- noncompliance with diet? hypothyroidism contributing to decompensation? other factors? does have very mild cirrhosis on liver u/s but doubt it is playing a large role in her volume status. appreciate cardiology consultation. recheck BMP am for stability. (2) ANTWAN (acute kidney injury): cause - over-diuresis peak Cr 2 now 0.89 resolved bmp am (3) Sleep apnea: highly suspected to have such likely severe qualified for nocturnal O2 on prior hospital overnight oximetry study cont NC O2 2 liters while awaiting a formal sleep study nurse velma for out team working on referral for sleep study (4) Hypothyroidism: TSH slowly improving but not at goal Increased synthroid to 88mcg daily with repeat TSH 6 weeks (5) Iron deficiency: Fe studies this admission c/w iron deficiency. s/p venofer 300mg IV x 3 doses - 3rd dose today. tolerated each w/o difficulty. ferritin - 12.8. check fecal occult. if negative consider celiac testing. (6) Hepatitis C: previous HepC testing was positive. liver u/s with evidence of severe fatty liver and some anatomical features of early cirrhosis. but doubt it is contributing heavily to volume issues at this time. given the early cirrhotic findings will refer to ID post-discharge for consideration of Rx of the HepC. consider vitamin E for fatty liver. (7) Depression: appreciate psych consultation. they recommend d/c of abilify. I spoke with Michelle about her comfort level with that and she is ok with discontinuation of abilify. psych also advised weaning off klonipin. to that end have changed klonipin to 0.25mg at HS and wean over next couple of weeks. (8) Splenomegaly: suspect 2nd to early cirrhosis (9) H/O mitral valve replacement: bioprosthetic, and most recent echos with preserved function of her MV replacement (10) History of stroke: 2nd to endocarditis with resulting severe left-side hemiplegia remains on asa 81mg daily for secondary prevention (11) Back pain: chronic no issues today she did not mention any pain to met during the visit (12) Fatty liver: see #6 above consider Vitamin E supplementation (13) Cirrhosis: see #6 above consider adding low-dose aldactone in addition to bumex (14) Morbid obesity: BMI 57 (15) Opioid use disorder, severe, in sustained remission: cont methadone 72mg daily she follows with local methadone clinic for such (16) Right knee pain: 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 The encounter with the patient was in whole, or in part, for the following medical condition, which is the primary reason for home health care (list medical condition): volume overload-lethargy I certify that, based on my findings, the following services are medically necessary home health services: My clinical findings support the need for the above services because: OT Assess ADL Status and Restore Function w ADLs PT Assessment for Endurance / Balance / Strength PT Eval for Safety and Mobility PT Eval for Safety, Gait Training, Assistive Devices PT Gait and Balance Training, Strengthening and Safety Further, I certify that my clinical findings support that this patient is homebound (i.e. absences from home require considerable and taxing effort and are for medical reasons or evangelical services or infrequently or of short duration when for other reasons) because: Supportive Aid - Wheelchair Transportation Assistance/Unable to Leave Home Unassisted Certification for Home Health Services: Based on the above findings, I certify that this patient is confined to the home and needs intermittent mcfp care, physical therapy and/or speech therapy or continues to need occupational therapy. The patient is under my care, and I have initiated the establishment of the plan of care. This patient will be followed by a physician who will periodically review the plan of care. Discharge Plan Discharge Items Patient Disposition: Home - Home Health Services Reason For Visit: VOLUME OVERLOAD, LETHARGY Discharge Diagnosis: 1. edema/fluid retention - due to diastolic congestive heart failure - much improved; discharge weight 378 pounds 2. iron deficiency anemia - 3 iron infusions given - follow-up with your family doctor needed for this 3. hypothyroidism - dose adjustment of your medication performed 4. asthma 5. suspected sleep apnea - sleep study needed 6. early cirrhosis of the liver 7. hepatitis C 8. history of stroke 9. chronic back pain 10. chronic right knee pain 11. lethargy - sleepiness - due to multiple problems including sleep apnea, various medications (methadone, Abilify, gabapentin, others), etc Activity: Resume your previous activity Non-emergency contact: Primary Care Provider and Metal Finish Inspector Call non-emergency contact if: you have any medication questions and your symptoms worsen Follow-up/Referrals: Canelo Escamilla MD [Physician] - (we will help to set up an appointment for you to address the sleep apnea) Stacey Arce MD [Primary Care Provider] - (1-2 weeks) Margie Malone PA-C [Physician Parts Counter Associate] - 03/03/23 1:00 pm (Congestive heart failure clinic ) Nikhil Shearer DO [Physician] - (Dr Shearer is an infectious disease doctor who may be able to treat the hepatitis C. She has an office in [employer]. We will try to set up an appointment for you. ) Diet: Heart Healthy Fluids: 1800ml (7 cups) Addtl Attending Provider Instructions: Ms Loly, You were hospitalized for fluid in the lungs as a result of your diastolic congestive heart failure/diastolic heart dysfunction. You received IV bumex with good results. Your weight came down nicely with the bumex and is approaching your baseline or "dry" weight. You required oxygen during the daytime and as the fluid in the lungs improved the daytime oxygen was no longer needed. [facility] assisted in your care while here. Additionally, you were very sleepy/lethargic when you came to the hospital. This was due to a combination of factors including medication side effects, elevated carbon dioxide levels from your suspected sleep apnea, and other causes. The lethargy improved. Psychiatry saw you in consult and made a variety of recommendations to help with the sleepiness. Finally, we performed a liver ultrasound and this shows the very beginnings of cirrhosis. Since you have hepatitis C this should be treated to prevent any further damage to the liver from hepC. You also have fatty liver which could be contributing to the early cirrhosis. Recommendations - 1. resume your bumetanide diuretic - take 2 mg each morning, and 2 mg each afternoon. 2. weigh yourself every morning on the same scale. Do this after you have voided in the toilet upon awakening. Write your weights down on paper so you can track it. if you gain more than 3 pounds over 1-2 days please let Ms Malone know from the CHF clinic with [facility]. 3. INCREASE your thyroid medication to 88mcg once daily. Start this tomorrow, 02/25/23. new prescription sent to your pharmacy for you. You will need a repeat thyroid level in 6 weeks. 4. psychiatry recommended the following - * STOP your aripiprazole * REDUCE your gabapentin from 600mg three times daily to 300mg three times daily * REDUCE your clonazepm from 0.5mg at bedtime to 0.25mg at bedtime; ultimately it would be best to wean fully off of this medication but, for now, just reduce the dose and stay on that 0.25mg dose until you follow-up with your family doctor, etc * CHANGE your baclofen to NEEDED use rather than taking it twice daily scheduled; baclofen can cause significant sedation / tiredness 5. for constipation please take both of the following to keep your bowels regular - * senna/senokot - 2 tablets daily * miralax once daily * both medications are hrmi-fsz-nnxrixr 6. for back pain you can take - * tylenol kfdr-lgc-memtqsx 650mg every 8 hours as needed * diclofenac gel - 4gm to the back (or right knee) up to 4 times a day as needed 7. limit total salt intake to no more than 2000mg in a 24 hour period 8. limit total fluid intake to about 1800ml in a 24 hour period 9. continue your oxygen with sleep as previous 10. follow-up appointments - see separate section Return to [facility] if * you have worsening shortness of breath * you have chest pains * you have fevers over 100 degrees * any other concerns Take care! -Dr Taylor Pending Studies at Discharge: Yes Studies:: vitamin B1 level Stand-Alone Forms: My [employer], Smoking Cessation Medications and DC Order Prescriptions: New diclofenac sodium [Voltaren Arthritis Pain] 1 % Gel 4 g EXT QID PRN (Reason: right knee pain OR back pain) Qty: 1 0RF Rx Instructions: this can be purchased mteh-kyr-ktmicws sennosides [Senokot] 8.6 mg Tablet 17.2 mg PO QAM Qty: 60 0RF Rx Instructions: qijc-gjd-nwyqwuu polyethylene glycol 3350 [Miralax] 17 gram Powder In Packet 17 g PO DAILY Qty: 30 0RF Rx Instructions: you can purchase daily, individual packets OR a bottle; both are oxxa-dbl-hrlxkxd. acetaminophen [Tylenol 8 Hour] 650 mg tablet extended release 650 mg PO Q8H PRN (Reason: fever or pain) Qty: 1 0RF Rx Instructions: roza-xdb-rkoghaz Continued (DME) Lift Chair [facility] See Rx Instructions .Route Qty: 1 0RF Rx Instructions: As directed ([facility] [place]) miscellaneous medical supply [facility] See Rx Instructions .ROUTE .MEDSUPPLY Qty: 1 0RF Rx Instructions: Left wrist splint Dx: lt spastic hemiparesis metoprolol tartrate 50 mg tablet 25 mg PO BID Qty: 30 2RF Flovent Diskus 100 mcg/actuation blister with device 1 inh inhalation BID Qty: 60 2RF trazodone 50 mg tablet 50 mg PO HS Qty: 30 2RF sertraline 100 mg tablet 200 mg PO DAILY Qty: 60 2RF epinephrine 0.3 mg/0.3 mL auto-injector 0.3 mg IM .COMPLEX PRN (Reason: anaphylaxis) Qty: 2 1RF Rx Instructions: 0.3 mg intramuscularly once but repeat dose x1 in 5-15min if needed PRN; After first injection, proceed to the ER (DME) Wheelchair (Manual) Device See Rx Instructions .Route Qty: 1 0RF Rx Instructions: As [id number] Z86.73 (DME) Hospital Bed [facility] [place] [facility] See Rx Instructions .Route Qty: 1 0RF Rx Instructions: As directed G81.9, I63.411 (DME) Manual Wheelchair Device See Rx Instructions .Route Qty: 1 0RF Rx Instructions: [address] drive WC please G81.9 ketoconazole 2 % cream 1 applic topical BID 28 Days Qty: 15 0RF methadone 10 mg Tablet 72 mg PO DAILY melatonin 3 mg Tablet 3 mg PO HS aspirin 81 mg Tablet,Chewable 81 mg PO DAILY multivitamin with minerals Tablet 1 tab PO DAILY nicotine 7 mg/24 hr Patch 24 Hour 7 mg transdermal QAM Qty: 30 0RF cyanocobalamin (vitamin B-12) 1,000 mcg tablet 1,000 mcg PO DAILY Qty: 90 1RF Rx Instructions: purchase eape-lfr-aaxekyd. potassium chloride 20 mEq tablet extended release 20 meq PO BID Qty: 60 2RF magnesium oxide 400 mg (241.3 mg magnesium) tablet 400 mg PO DAILY Qty: 30 2RF apixaban 2.5 mg tablet 2.5 mg PO BID Qty: 60 0RF ipratropium-albuterol 0.5 mg-3 mg(2.5 mg base)/3 mL Solution For Nebulization 3 ml NEB Q6H PRN (Reason: cough/wheezing/shortness of breath) Qty: 1 0RF Rx Instructions: dx: J45.901 Combivent Respimat 20-100 mcg/actuation Mist 1 puff INHALATION TID PRN (Reason: cough/wheezing/shortness of breath) Qty: 1 0RF (DME) Oxygen Home Liters Per Minute See Rx Instructions .ROUTE .MEDSUPPLY Qty: 1 0RF Rx Instructions: 2 liters NC O2 with sleep. Changed gabapentin 600 mg tablet 300 mg PO TID Qty: 1 0RF bumetanide 2 mg tablet 2 mg PO BID Qty: 120 2RF Rx Instructions: take 7-8am each morning and about 3-4pm in the afternoon every day. clonazepam 0.5 mg tablet 0.25 mg PO HS Qty: 30 0RF baclofen 10 mg tablet 10 mg PO BID PRN (Reason: muscle stiffness/spasm) Qty: 60 0RF levothyroxine 88 mcg capsule 88 mcg PO DAILY Qty: 30 1RF Discontinued aripiprazole [Abilify] 15 mg tablet 15 mg PO DAILY Qty: 30 0RF benzonatate 100 mg Capsule 100 mg PO TID PRN (Reason: cough) Qty: 20 0RF Discharge Orders: Discharge Order (Routine); Ordered 02/24/23 Ordered By: Kurt Taylor Admission Data Admit Date/Time: 02/18/23 16:02 Attending Provider: Kurt Taylor Admit Provider: Kurt Ortez Primary Care Provider: Stacey Arce Other Providers: Kurt Ortez ; Leonard Tovar ; Carolann Trujillo ; Jocelyne Nagy ; Jean Washington ; Margie Malone Coding Diagnoses Acute on chronic heart failure with preserved ejection fraction (HFpEF) I50.33 ANTWAN (acute kidney injury) N17.9 Sleep apnea G47.30 Hypothyroidism E03.9 Iron deficiency E61.1 Hepatitis C B19.20 Depression F32.A Splenomegaly R16.1 H/O mitral valve replacement Z95.2 History of stroke Z86.73 Back pain M54.9 Fatty liver K76.0 Cirrhosis K74.60 Morbid obesity E66.01 Opioid use disorder, severe, in sustained remission F11.21 Right knee pain M25.561
[2023-02-24] MEDS ORDERED: Nursing to Pharmacy Communication SCH (13:30)
[2023-02-24] MEDS: METHADONE ORAL SOLN 2 MG/ML PO SCH (14:09)
[2023-02-24 17:07] LABS: Haptoglobin 247 mg/dL (43-212)
== END 2023-02-24 14:29 | disposition home health service (06) ==
LOC: ED 10:54 → INTOOBSV 16:02 → SUATTDRO 16:02 → 4W 16:02

== ENCOUNTER 2023-05-01 11:17 | Inpatient (IN) ==
--- NOTE | 2023-05-01 11:33 | Emergency Department Note ---
Impression & Plan CHF (congestive heart failure), Acute dyspnea, Leg swelling, Anemia ED Provider Note NAME: TWILA RADER AGE: 37 SEX: F : 1985 ARRIVES VIA: Ambulance INFORMANT: Patient, ED PROVIDER(S): Toi Paez MD CHIEF COMPLAINT: Shortness of breath, leg swelling MEDICAL DECISION MAKING: Patient presents to the above symptoms in the known setting of known history of CHF. The patient does feel as though her legs have gotten more swollen and is compliant with her medications. IV was established blood work was obtained along with an EKG chest x-ray BNP. Patient's weight is increased approximate 20 kg from last visit. Chest x-ray does show cardiomegaly with ill-defined left lung opacities could be from summation density versus asymmetric pulmonary edema. Blood work shows a normal white count with mild anemia which is proved from prior. Platelet count of 433 kidney function unremarkable with troponin normal BNP normal. Given the patient's weight gain and prior history of concerned about CHF. Patient was ordered IV Bumex 2 mg. I subsequently did speak with the on-call hospitalist Dr. Patel and the patient was admitted to the medicine service Discussion w/ other healthcare providers: Dr. Patel inpatient medicine service Prior /Outside records reviewed: I reviewed a heart failure visit for Margie Malone PA-C from March 10, 2023. Patient has a known history of mitral valve replacement with bioprosthetic valve sleep apnea and CHF. Patient does have a preserved ejection fraction. Patient is to be on Bumex 4 mg twice daily. Patient was advised to notify heart failure program if she has a 2+ pound weight gain overnight or 5 pounds in 1 week recommended low-sodium diet. Patient also with known history of MENDEZ. Also history of stroke. Differential diagnosis: Reactive airway disease, pneumonia, pneumothorax, COPD, CHF, ACS, pulmonary embolism, musculoskeletal, GERD as well as other pathologies were considered. Diagnostics, as interpreted by me: ECG: Sinus rhythm, rate of 79, normal intervals, normal axis no obvious ST elevations T wave flattening noted. Cardiac monitoring: An order was placed for continuous cardiac monitoring. The monitor shows a rate of 82 with sinus rhythm. Patient was placed on pulse oximetry Medical decision rules: Heart score Imaging studies: I informally interpreted the patient's chest x-ray which shows possible pulmonary edema without evidence of pneumothorax with formal report to follow. Of note sternotomy wires noted HPI: Patient presents due to concern for shortness of breath lower extremity swelling. The patient believes that her bilateral lower extremities have an worsening associated edema to where it is causing ambulatory dysfunction. The patient believes that she has had decreased urine output even though she states she is taking her medications. Patient did take her Bumex 4 mg this morning. The patient does have worsening GUZMAN. The patient does suffer from orthopnea which is chronic but may be worse. Patient states that she can never lie flat. Patient denies any falls or trauma. Patient does believe that her left lower extremity may be slightly larger than the right but that this is typical for her to have the left be slightly larger. Patient is anticoagulated on blood thinners. The patient denies any falls or trauma. Patient does have some cough but believes that this is related to fluid buildup. The patient does wear oxygen as needed. Patient does not use any processed food and does not use any salt in any cooking at her mother did provide some additional history. The patient does occasionally use Mrs. Lin. PAST MEDICAL HISTORY: See Below PAST SURGICAL HISTORY: See Below SOCIAL HISTORY: See Below HOME MEDICATIONS: See Below ALLERGIES: See Below VITALS: See Below PHYSICAL EXAMINATION: GENERAL: NAD, non-toxic. Nasal cannula in place EYE EXAM: Normal conjunctiva. PERRL, no anisocoria and EOM's grossly intact w/o pain. OROPHARYNX: Moist mucus membranes, grossly normal dentition. NECK: Supple, no nuchal rigidity, no adenopathy, non-tender. No signs of meningismus. FROM of the neck with good chin to chest and neck extension. No stridor. LUNGS: Clear to auscultation. Normal chest wall mechanics. HEART: NSR, no MRG. ABDOMEN: Abdomen soft, non-tender, no masses, no rebound or guarding. BACK: No CVA TTP. SKIN: No rashes and no bruising. UPPER EXTREMITIES: Upper extremities are grossly normal. LOWER EXTREMITIES: Grossly normal, bilateral lower extremity edema without obvious pitting. No calf pain. NEURO EXAM: A&O x3, cranial nerves II-XII grossly intact, normal speech, moves all 4 extremities. Past Med/Surg History Medical History Sleep apnea Primary hypothyroidism Hepatitis C Left spastic hemiparesis Right knee pain Cirrhosis Fatty liver ANTWAN (acute kidney injury) Back pain Hypothyroidism Acute on chronic heart failure with preserved ejection fraction (HFpEF) Snoring Iron deficiency Tobacco dependence B12 deficiency Hypokalemia Morbid obesity Thalassemia Edema, peripheral Splenic abscess Splenomegaly Hypoxia Opioid use disorder, severe, in sustained remission on maintenance therapy Methadone MENDEZ (generalized anxiety disorder) Major depressive disorder, recurrent episode, moderate with anxious distress Chronic right arterial ischemic stroke, MCA (middle cerebral artery) Left-sided weakness Bipolar disorder History of embolic stroke Rt MCA History of stroke Drug abuse and dependence Anemia Endocarditis Anxiety PCOS (polycystic ovarian syndrome) Surgical History S/P mitral valve replacement with bioprosthetic valve (06/2022) H/O mitral valve replacement History of repair of ACL History of section History of tubal ligation Family History Grandmother (Paternal) Breast cancer Grandfather (Maternal) Myocardial infarction Graves disease Grandfather (Paternal) Myocardial infarction Other Thalassemia Denies family history of Colon cancer Ovarian cancer Prostate cancer Social History Smoking Status: Current every day smoker Tobacco Type: Cigarettes packs per day: 1; Second Hand Exposure: Yes; Do You Dip or Chew Tobacco: No; Hx Alcohol Use: Yes Hx Substance Use: Yes Last Used Substance: Days (ago) Substance Use Type Other:: clean for 10 months Preferred Language: Korean Communication Ability: Effective Visual Impairment: No Limitations Hearing Ability: Normal Manager Office Required: No Beliefs That Will Affect Care: None marital status: Single Current Living Situation: Parent Current Living Situation Comment: boyfriend and her 3 daughters 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 Feels Safe at Home: Yes Childhood Exposure to Second-Hand Smoke: No Diet: regular Diet Comment: regular Dental Care, Regularly: No Physical Activity Frequency: Does not Exercise Seatbelt Use: sometimes Sunscreen Use: No Assistive Devices: Oxygen - at Night and Wheelchair Allergies Allergies Allergy/AdvReac Type Severity Reaction Status Date / Time sulfamethoxazole Allergy Severe Anaphylaxis Verified 04/01/23 13:35 [From Bactrim] trimethoprim [From Bactrim] Allergy Severe Anaphylaxis Verified 04/01/23 13:35 atorvastatin AdvReac Intermediate Muscle Pain Verified 04/01/23 13:35 Home Meds Home Medications Medication Instructions Recorded Confirmed aspirin 81 mg chewable tablet 81 mg PO DAILY 12/16/22 04/01/23 melatonin 3 mg tablet 3 mg PO HS 12/16/22 04/01/23 methadone 10 mg tablet 72 mg PO DAILY 12/16/22 04/01/23 multivitamin with minerals 1 tab PO DAILY 12/16/22 04/01/23 Previous Rx's Medication Instructions Recorded Wheelchair (Manual) #1 ea 03/25/22 Hospital Bed Homecare (Hospital #1 ea 04/18/22 Bed) Wheelchair (Manual) (Manual #1 ea 04/18/22 Wheelchair) Lift Chair #1 ea 10/09/22 miscellaneous medical supply #1 ea 10/16/22 ketoconazole 2 % topical cream 1 applic topical BID 4 weeks #15 11/19/22 grams fluticasone propionate 100 1 inh inhalation BID #60 ea 12/16/22 mcg/actuation blister powder for inhalation (Flovent Diskus) epinephrine 0.3 mg/0.3 mL 0.3 mg (0.3 mL) IM .COMPLEX PRN 12/26/22 injection, auto-injector anaphylaxis #2 ea magnesium oxide 400 mg (241.3 mg 400 mg PO DAILY #30 tabs 01/08/23 magnesium) tablet Oxygen Home #1 ea 01/26/23 ipratropium 0.5 mg-albuterol 3 mg 3 ml NEB Q6H PRN 01/26/23 (2.5 mg base)/3 mL nebulization cough/wheezing/shortness of breath soln #1 box ipratropium 20 mcg-albuterol 100 1 puff inhalation TID PRN 01/26/23 mcg/actuation mist for inhalation cough/wheezing/shortness of breath (Combivent Respimat) #1 g acetaminophen 650 mg 650 mg PO Q8H PRN fever or pain #1 02/24/23 tablet,extended release (Tylenol 8 tab Hour) diclofenac sodium 1 % topical gel 4 g EXT QID PRN right knee pain OR 02/24/23 (Voltaren Arthritis Pain) back pain #1 tube levothyroxine 88 mcg capsule 88 mcg PO DAILY #30 caps 02/24/23 polyethylene glycol 3350 17 gram 17 g PO DAILY #30 packets 02/24/23 oral powder packet (Miralax) sennosides 8.6 mg tablet (Senokot) 17.2 mg (2 x 8.6 mg) PO QAM #60 02/24/23 tabs bumetanide 2 mg tablet 4 mg (2 x 2 mg) PO BID #120 tabs 03/06/23 baclofen 10 mg tablet 10 mg PO BID PRN muscle 03/10/23 stiffness/spasm #60 tabs apixaban 2.5 mg tablet 2.5 mg PO BID #60 tabs 03/19/23 metoprolol tartrate 50 mg tablet 25 mg (1/2 x 50 mg) PO BID #30 tabs 03/19/23 potassium chloride 20 mEq 20 meq PO BID #60 tabs 03/19/23 tablet,extended release sertraline 100 mg tablet 200 mg (2 x 100 mg) PO DAILY #60 03/19/23 tabs trazodone 50 mg tablet 50 mg PO HS #30 tabs 03/19/23 gabapentin 600 mg tablet 600 mg PO TID #90 tabs 03/31/23 nitrofurantoin 100 mg PO Q12H 7 days #14 caps 04/01/23 monohydrate/macrocrystals 100 mg capsule (Macrobid) prednisone 10 mg tablet See Rx Instructions PO DAILY #30 04/01/23 tabs clonazepam 0.5 mg tablet 0.5 mg PO HS #30 tabs 04/16/23 Results & Data (ED) Vital Signs Vital Signs - 24 hr 05/01/23 11:15 05/01/23 11:20 05/01/23 12:00 Temperature 37.0 C Temperature Source Oral Pulse Rate 79 79 Pulse Rate from SpO2 Sensor Respiratory Rate 22 Respiratory Effort / Characteristics Non-Labored Spontaneous SOB on Exertion Respiratory Depth Normal Respiratory Pattern Regular Blood Pressure 109/62 Blood Pressure Mean 77 Pulse Oximetry 87 L 94 Oxygen Delivery Method Room Air Nasal Cannula Oxygen Flow Rate 3 Sepsis Recent Fever Within 48 Hours No Sepsis New/Unexplained Change in Mental Status No Sepsis Action Taken by Nursing No Action Required 05/01/23 13:56 05/01/23 14:00 05/01/23 15:20 Temperature Temperature Source Pulse Rate 74 71 69 Pulse Rate from SpO2 Sensor 74 Respiratory Rate 16 13 Respiratory Effort / Characteristics Respiratory Depth Respiratory Pattern Blood Pressure 97/66 L 96/62 L Blood Pressure Mean 76 73 Pulse Oximetry 97 94 Oxygen Delivery Method Nasal Cannula Oxygen Flow Rate Sepsis Recent Fever Within 48 Hours Sepsis New/Unexplained Change in Mental Status Sepsis Action Taken by Nursing 05/01/23 15:30 Temperature Temperature Source Pulse Rate 70 Pulse Rate from SpO2 Sensor Respiratory Rate 12 Respiratory Effort / Characteristics Respiratory Depth Respiratory Pattern Blood Pressure 96/63 L Blood Pressure Mean 74 Pulse Oximetry 98 Oxygen Delivery Method Nasal Cannula Oxygen Flow Rate Sepsis Recent Fever Within 48 Hours Sepsis New/Unexplained Change in Mental Status Sepsis Action Taken by Jail Medications Current Medication List: was personally reviewed by me Laboratory Data Attestation: I reviewed the patient's lab results. 05/01/23 12:00 05/01/23 12:00 Lab Results 05/01/23 05/01/23 Range/Units 12:00 12:25 WBC 6.30 (4.8-10.8) K/ul RBC 4.73 (4.20-5.40) M/uL Hgb 11.1 L (12.0-16.0) g/dl Hct 36.7 L (37.0-47.0) % MCV 77.6 L (80.0-100.0) fL MCH 23.5 L (25.0-34.0) pg MCHC 30.2 L (32.0-36.0) g/dL RDW Std Deviation 49.6 H (36.4-46.3) fL RDW Coeff of Alexia 17.5 H (11.5-14.5) % Plt Count 433 H (130-400) K/uL MPV 9.1 L (9.4-12.4) fL Immature Gran % (Auto) 0.2 % Neut % (Auto) 60.4 % Lymph % (Auto) 27.3 % Granite % (Auto) 7.3 % Eos % (Auto) 4.0 % Baso % (Auto) 0.8 % Neut # (Auto) 3.81 (1.40-6.50) K/uL Lymph # (Auto) 1.72 (1.20-3.40) K/uL Granite # (Auto) 0.46 (0.11-0.59) K/uL Eos # (Auto) 0.25 (0.00-0.50) K/uL Baso # (Auto) 0.05 (0.00-0.20) K/uL Immature Gran # (Auto) 0.01 (0.01-0.20) K/uL PT 10.5 (9.0-12.0) Seconds INR 1.0 (0.9-1.1) APTT 28.2 (21.0-31.0) Seconds PTT Ratio 1.0 Sodium 137 (136-145) mmol/L Potassium 4.0 (3.5-5.1) mmol/L Chloride 98 (98-107) mmol/L Carbon Dioxide 32 (21-32) mmol/L Anion Gap 7 (3-11) BUN 13 (6-23) mg/dl Creatinine 1.03 (0.6-1.2) mg/dl Est Cr Clr Drug Dosing 132.8 ml/min Est GFR ( Amer) 81.0 ml/min Est GFR (Non-Af Amer) 69.9 ml/min BUN/Creatinine Ratio 12.6 (10-20) Glucose 109 H (70-99(Fasting)) mg/dl Calcium 9.2 (8.6-10.3) mg/dl Magnesium 2.2 (1.7-2.4) mg/dl Total Bilirubin 0.3 (0.2-1.0) mg/dl AST 17 (13-39) U/L ALT 13 (7-52) U/L Alkaline Phosphatase 102 (34-104) U/L Troponin I High Sens < 2.3 (0-14) pg/ml B-Natriuretic Peptide 21 (0-100) pg/ml Total Protein 8.6 H (6.0-8.3) gm/dl Albumin 4.0 (3.4-5.0) gm/dl Globulin 4.6 H (2.5-4.0) gm/dl Albumin/Globulin Ratio 0.9 (0.9-2) Adenovirus (PCR) Not Detected (NotDetected) B. pertussis DNA (PCR) Not Detected (NotDetected) B.parapertussis DNA PCR Not Detected (NotDetected) C. pneumoniae DNA (PCR) Not Detected (NotDetected) Coronavirus OC43 (PCR) Not Detected (NotDetected) Coronavirus HKU1 (PCR) Not Detected (NotDetected) Coronavirus 229E (PCR) Not Detected (NotDetected) SARS-CoV-2 (PCR) Not Detected (NotDetected) Coronavirus NL63 (PCR) Not Detected (NotDetected) Human Metapneumovir PCR Not Detected (NotDetected) Influenza Type A (PCR) Not Detected (NotDetected) Influenza Type B (PCR) Not Detected (NotDetected) M. pneumoniae (PCR) Not Detected (NotDetected) Parainfluenza 1 (PCR) Not Detected (NotDetected) Parainfluenza 2 (PCR) Not Detected (NotDetected) Parainfluenza 3 (PCR) Not Detected (NotDetected) Parainfluenza 4 (PCR) Not Detected (NotDetected) RSV (PCR) Not Detected (NotDetected) Entero/Rhino (PCR) Not Detected (NotDetected) Administered Medications Discontinued Medications Bumetanide 2 mg/ Syringe 8 mls @ 4 mls/min IV ONE ONE Stop: 05/01/23 13:36 Last Admin: 05/01/23 15:44 Dose: 4 mls/min Documented By: ANG Imaging Data Radiologist's Impression: Chest X-Ray 05/01/23 11:55 XR chest 1V portable HISTORY: 37 years-old Female Dyspnea acute shortness of breath COMPARISON: Chest CT 02/18/2023 TECHNIQUE: AP view of the chest FINDINGS: Cardiac silhouette is enlarged. Sternotomy wires are redemonstrated. The right lung is clear. No pneumothorax. Ill-defined left midlung and left basilar opacities. IMPRESSION: Cardiomegaly with ill-defined left lung opacities. Differential considerations include summation density from overlying breast tissue versus asymmetric pulmonary edema. Correlation could be made with PA and lateral views of the chest. ACT 112: Negative or not required by law. The above report was generated using voice recognition software. It may contain grammatical, syntax or spelling errors. Electronically signed by: Alex Ibarra M.D. 05/01/2023 12:52 PM Discharge Plan Visit Data Chief Complaint: Swelling/Edema to Extremity ED Provider: Toi Paez Discharge Problem: CHF (congestive heart failure), Acute dyspnea, Leg swelling, Anemia Forms Stand Alone Forms: [facility] Prescriptions Prescriptions: No Action (DME) Lift Chair [facility] See Rx Instructions .Route Qty: 1 0RF Rx Instructions: As directed (DME) miscellaneous medical supply Replaced By [facility] See Rx Instructions .ROUTE .MEDSUPPLY Qty: 1 0RF Rx Instructions: Left wrist splint Dx: lt spastic hemiparesis Flovent Diskus 100 mcg/actuation blister with device 1 inh inhalation BID Qty: 60 2RF epinephrine 0.3 mg/0.3 mL auto-injector 0.3 mg IM .COMPLEX PRN (Reason: anaphylaxis) Qty: 2 1RF Rx Instructions: 0.3 mg intramuscularly once but repeat dose x1 in 5-15min if needed PRN; After first injection, proceed to the ER bumetanide 2 mg tablet 4 mg PO BID Qty: 120 2RF Rx Instructions: take 7-8am each morning and about 3-4pm in the afternoon every day. baclofen 10 mg tablet 10 mg PO BID PRN (Reason: muscle stiffness/spasm) Qty: 60 5RF gabapentin 600 mg tablet 600 mg PO TID Qty: 90 2RF clonazepam 0.5 mg tablet 0.5 mg PO HS Qty: 30 0RF apixaban 2.5 mg tablet 2.5 mg PO BID Qty: 60 5RF metoprolol tartrate 50 mg tablet 25 mg PO BID Qty: 30 5RF trazodone 50 mg tablet 50 mg PO HS Qty: 30 5RF sertraline 100 mg tablet 200 mg PO DAILY Qty: 60 5RF potassium chloride 20 mEq tablet extended release 20 meq PO BID Qty: 60 5RF (DME) Wheelchair (Manual) Device See Rx Instructions .Route Qty: 1 0RF Rx Instructions: As [id number] Z86.73 (DME) Hospital Bed [facility] See Rx Instructions .Route Qty: 1 0RF Rx Instructions: As directed G81.9, I63.411 (DME) Manual Wheelchair Device See Rx Instructions .Route Qty: 1 0RF Rx Instructions: [address] drive WC please G81.9 ketoconazole 2 % cream 1 applic topical BID 28 Days Qty: 15 0RF nitrofurantoin monohyd/m-cryst [Macrobid] 100 mg capsule 100 mg PO Q12H 7 Days Qty: 14 0RF Rx Instructions: must administer with a meal/food prednisone 10 mg tablet See Rx Instructions PO DAILY Qty: 30 0RF Rx Instructions: 4 tabs for 3 days, then 3 tabs for 3 days, then 2 tabs for 3 days, then 1 tab for 3 days. PO DAILY; methadone 10 mg Tablet 72 mg PO DAILY melatonin 3 mg Tablet 3 mg PO HS aspirin 81 mg Tablet,Chewable 81 mg PO DAILY multivitamin with minerals Tablet 1 tab PO DAILY magnesium oxide 400 mg (241.3 mg magnesium) tablet 400 mg PO DAILY Qty: 30 2RF ipratropium-albuterol 0.5 mg-3 mg(2.5 mg base)/3 mL Solution For Nebulization 3 ml NEB Q6H PRN (Reason: cough/wheezing/shortness of breath) Qty: 1 0RF Rx Instructions: dx: J45.901 Combivent Respimat 20-100 mcg/actuation Mist 1 puff INHALATION TID PRN (Reason: cough/wheezing/shortness of breath) Qty: 1 0RF (DME) Oxygen Home Liters Per Minute See Rx Instructions .ROUTE .MEDSUPPLY Qty: 1 0RF Rx Instructions: 2 liters NC O2 with sleep. diclofenac sodium [Voltaren Arthritis Pain] 1 % Gel 4 g EXT QID PRN (Reason: right knee pain OR back pain) Qty: 1 0RF Rx Instructions: this can be purchased [id number] sennosides [Senokot] 8.6 mg Tablet 17.2 mg PO QAM Qty: 60 0RF Rx Instructions: [id number] polyethylene glycol 3350 [Miralax] 17 gram Powder In Packet 17 g PO DAILY Qty: 30 0RF Rx Instructions: you can purchase daily, individual packets OR a bottle; both are [id number]-[id number]. levothyroxine 88 mcg capsule 88 mcg PO DAILY Qty: 30 1RF acetaminophen [Tylenol 8 Hour] 650 mg tablet extended release 650 mg PO Q8H PRN (Reason: fever or pain) Qty: 1 0RF Rx Instructions: [id number] Referrals Referrals: Stacey Arce MD [Primary Care Provider] - Discharge Problem: CHF (congestive heart failure) Qualifiers: Heart failure type: unspecified Heart failure chronicity: acute on chronic Q ualified Code(s): I50.9 - Heart failure, unspecified Anemia Qualifiers: Anemia type: unspecified type Qualified Code(s): D64.9 - Anemia, unspecified
[2023-05-01 12:17] LABS: Basophils # (auto) 0.05 K/uL (0.00-0.20); Basophils % (auto) 0.8 %; Eosinophils # (auto) 0.25 K/uL (0.00-0.50); Hematocrit (blood only) 36.7 % (37.0-47.0); Hemoglobin 11.1 g/dl (12.0-16.0); Immature Granulocytes # (auto) 0.01 K/uL (0.01-0.20); Immature Granulocytes % (auto) 0.2 %; Lymphocytes # (auto) 1.72 K/uL (1.20-3.40); Lymphocytes % (auto) 27.3 %; Mean Corpuscular Hemoglobin 23.5 pg (25.0-34.0); Mean Corpuscular Hgb Conc 30.2 g/dL (32.0-36.0); Mean Corpuscular Volume 77.6 fL (80.0-100.0); Mean Platelet Volume 9.1 fL (9.4-12.4); Monocytes # (auto) 0.46 K/uL (0.11-0.59); Monocytes % (auto) 7.3 %; Neutrophils # (auto) 3.81 K/uL (1.40-6.50); Neutrophils % (auto) 60.4 %; Platelet Count 433 K/uL (130-400); RDW Coefficient of Variation 17.5 % (11.5-14.5); RDW Standard Deviation 49.6 fL (36.4-46.3); Red Blood Count 4.73 M/uL (4.20-5.40)
[2023-05-01 12:43] LABS: Alanine Aminotransferase 13 U/L (7-52); Albumin Globulin Ratio 0.9 (0.9-2); Alkaline Phosphatase 102 U/L (34-104); Anion Gap 7 (3-11); Aspartate Aminotransferase 17 U/L (13-39); BUN Creatinine Ratio 12.6 (10-20); Bilirubin,Total 0.3 mg/dl (0.2-1.0); Blood Urea Nitrogen 13 mg/dl (6-23); Calcium 9.2 mg/dl (8.6-10.3); Carbon Dioxide 32 mmol/L (21-32); Chloride 98 mmol/L (98-107); Creatinine Clr Calc Pharmacy 132.8 ml/min; Est GFR (Non-African American) 69.9 ml/min; Globulin 4.6 gm/dl (2.5-4.0); Glucose 109 mg/dl (70-99(Fasting)); Magnesium 2.2 mg/dl (1.7-2.4); Sodium 137 mmol/L (136-145); Total Protein 8.6 gm/dl (6.0-8.3)
[2023-05-01 12:46] LABS: Partial Thromboplastin Time 28.2 Seconds (21.0-31.0); Prothrombin Time 10.5 Seconds (9.0-12.0)
[2023-05-01 12:47] LABS: Troponin I High Sensitivity < 2.3 pg/ml (0-14)
--- NOTE | 2023-05-01 12:54 | XRay Report ---
XR chest 1V portable HISTORY: 37 years-old Female Dyspnea acute shortness of breath COMPARISON: Chest CT 02/18/2023 TECHNIQUE: AP view of the chest FINDINGS: Cardiac silhouette is enlarged. Sternotomy wires are redemonstrated. The right lung is clear. No pneu mothorax. Ill-defined left midlung and left basilar opacities. IMPRESSION: Cardiomegaly with ill-defined left lung opacities. Differential considerations include sanderson mmation density from overlying breast tissue versus asymmetric pulmonary edema. Correlation could be made with PA and lateral views of the chest. ACT 112: Negative or not required by law. The above report was generated using voice recognition software. It may contain grammatical, syntax o r spelling errors. Electronically signed by: Alex Ibarra M.D. 05/01/2023 12:52 PM
[2023-05-01 13:29] LABS: Adenovirus PCR Not Detected (NotDetected); Bordetella parapertussis PCR Not Detected (NotDetected); Bordetella pertussis PCR Not Detected (NotDetected); Chlamydia pneumoniae PCR Not Detected (NotDetected); Coronavirus 229E PCR Not Detected (NotDetected); Coronavirus CoV-2 (COVID19)PCR Not Detected (NotDetected); Coronavirus HKU1 PCR Not Detected (NotDetected); Coronavirus NL63 PCR Not Detected (NotDetected); Coronavirus OC43PCR Not Detected (NotDetected); Human Metapneumovirus PCR Not Detected (NotDetected); Influenza A PCR Not Detected (NotDetected); Influenza B PCR Not Detected (NotDetected); Mycoplasma pneumoniae PCR Not Detected (NotDetected); Parainfluenza Virus 1 PCR Not Detected (NotDetected); Parainfluenza Virus 2 PCR Not Detected (NotDetected); Parainfluenza Virus 3 PCR Not Detected (NotDetected); Parainfluenza Virus 4 PCR Not Detected (NotDetected); Respiratory Syncytial VirusPCR Not Detected (NotDetected); Rhinovirus/Enterovirus PCR Not Detected (NotDetected)
[2023-05-01] MEDS ORDERED: BUMETANIDE 2 MG in SYRINGE 0 ML IV ONE (13:35)
--- NOTE | 2023-05-01 14:01 | History & Physical Report ---
Date of Service May 01, 2023 Assessment & Plan (1) (HFpEF) heart failure with preserved ejection fraction: Plan: Acute on chronic heart failure with preserved ejection fraction IV Bumex twice daily, strict ins and outs, target net 2 L negative per day Previous dry weight around 370 pounds, [id number]. 186.2 kg on admission Last saw heart failure clinic 03/10. BNP has been negative with heart failure, this was suspected to be artificially low due to severe obesity Recieved Bumex 2 mg IV while in the ER. Home regimen is Bumex 2 mg p.o. twice daily. IV - Prior exacerbations w/ diet noncompliance, reportedly no medication or diet noncompliance in the last - diet - SGLT deferred 2/2 hx UTIs Lower extremity edema suspect due to acute on chronic CHF, patient noticed that she had a preceding left lower extremity pain and swelling which is both disproportionate swelling and pain compared to her prior admits. She is on Eliquis however this is a 2.5 mg twice daily dose and with an extremely elevated BMI at risk for subtherapeutic protection, will order DVT of the left lower extremity to R/oh DVT. (2) Chronic right arterial ischemic stroke, MCA (middle cerebral artery): Plan: History of right MCA ischemic stroke - With residual left-sided weakness Due to endocarditis in the setting of IV drug abuse, now in remission Continue aspirin/Eliquis No new stroke deficit (3) Sleep apnea: Plan: Sleep apnea Severe, with comorbid obesity hypoventilation syndrome CPAP nightly (4) Primary hypothyroidism: Plan: Hypothyroidism Continue Synthroid (5) Hepatitis C: Plan: Hepatitis C, early cirrhosis Patient with history of hep C positive test, and history of fatty liver with early cirrhosis. Patient is pending follow-up with infectious disease as an outpatient, she has intake labs scheduled for this weekend. No transaminitis, low suspicion for hepatic decompensation at this time Plan Chronic Issues: History of opioid abuse disorder in remission. Methadone continued on admission Depression/anxiety.Continue clonazepam nightly, patient weaning as outpatient Mitral valve replacement: Bioprosthetic, noted Anticoagulation: Pt is on eliquis 2.5mg BID for DVT ppx due to stasis. THi sis not required for her artificial valve, and she has no history of Afib or DVT/PE. Limited data that apixaban does have plasma reduction in obese patients that does not require dose adjustment; however pt is at the extreme end of BMI. Goals of care: Patient has expressed desire to be DNR/DNI to outpatient prov iders and does not not want to return to the hospital, her mother does not agree with this and has had disagreement on how best to manage exacerbations as an outpatient. Was pending care planning with PCP/palliative care as outpatient. I did discuss this with patient and her mother at bedside. She reports that at this time she would be interested in assistive palliative measures to help manage for chronic discomfort and comorbidities but is not interested in any type of hospice or comfort measure oriented planning. Her and her mother's goal are currently to extend her life as much as possible with any and all available treatments. Neelima reports that she has expressed a desire in the past to be DNR/DNI and avoid hospitalization; however at this time agrees with full code measures. DVT PPx: eliquis Diet: HH/1200cc fluid restriction CODE: Full Dispo: PCU History of Present Illness Primary Care Provider: Stacey Arce MD Michelle is a 37-year-old female with past medical history of obesity hypoventilation, bipolar disorder, drug abuse in remission, endocarditis, right MCA stroke with homonymous hemianopsia and residual left spastic hemiparesis, heart failure with preserved ejection fraction, hepatitis C who presents for weight gain, leg swelling and he was suspected to have acute on chronic diastolic CHF Per ER patient with history of mitral valve replacement and bioprosthetic valve, sleep apnea, CHF. EF is normal. +severe weight gain in the last week. Pt is seen with his motherpresent. Michelle is somnolent but easily arousable and answers direct questioning, falls asleep easily and defers much of collateral hx to her mother who is at bedside. PEr pt and her mother has not had dietary indiscretion and has been taking bumex as directed but in week started to have swelling in the legs. Normally takes bumex 1 AM/PM, has not been taking bumex 1am/2pm but has still had decreased UOP and progressive swelling. Michelle was changed and bumex has bene increased approximately 1 month ago. She is pending followup with infectious disease for Hepatitis C. She has a referral to see [facility] Infectious disease. Was pending intake blood work at [place] this weekend for myles tappt, but came in due to swelling an dsuspected CHF. Has been more sweaty than normal, but denies fever/chills/night sweats. Left leg and calf is much more painful than normla, including prior CHF exacerbations. Home weight 382 Medical History: Reviewed Medications: Reviewed Surgical History: Reviewed Family history: Reviewed Allergies: Reviewed Social History: REviewed Code Status:Full Allergies Allergy/AdvReac Type Severity Reaction Status Date / Time sulfamethoxazole Allergy Severe Anaphylaxis Verified 04/01/23 13:35 [From Bactrim] trimethoprim [From Bactrim] Allergy Severe Anaphylaxis Verified 04/01/23 13:35 atorvastatin AdvReac Intermediate Muscle Pain Verified 04/01/23 13:35 Home Medications Medication Instructions Recorded Confirmed Type Wheelchair (Manual) #1 ea 03/25/22 04/01/23 Rx Hospital Bed Homecare (Hospital #1 ea 04/18/22 04/01/23 Rx Bed) Wheelchair (Manual) (Manual #1 ea 04/18/22 04/01/23 Rx Wheelchair) Lift Chair #1 ea 10/09/22 04/01/23 Rx miscellaneous medical supply #1 ea 10/16/22 04/01/23 Rx ketoconazole 2 % topical cream 1 applic topical BID 4 weeks #15 11/19/22 04/01/23 Rx grams aspirin 81 mg chewable tablet 81 mg PO DAILY 12/16/22 04/01/23 History fluticasone propionate 100 1 inh inhalation BID #60 ea 12/16/22 04/01/23 Rx mcg/actuation blister powder for inhalation (Flovent Diskus) melatonin 3 mg tablet 3 mg PO HS 12/16/22 04/01/23 History methadone 10 mg tablet 72 mg PO DAILY 12/16/22 04/01/23 History multivitamin with minerals 1 tab PO DAILY 12/16/22 04/01/23 History epinephrine 0.3 mg/0.3 mL 0.3 mg (0.3 mL) IM .COMPLEX PRN 12/26/22 04/01/23 Rx injection, auto-injector anaphylaxis #2 ea magnesium oxide 400 mg (241.3 mg 400 mg PO DAILY #30 tabs 01/08/23 04/01/23 Rx magnesium) tablet Oxygen Home #1 ea 01/26/23 04/01/23 Rx ipratropium 0.5 mg-albuterol 3 mg 3 ml NEB Q6H PRN 01/26/23 04/01/23 Rx (2.5 mg base)/3 mL nebulization cough/wheezing/shortness of breath soln #1 box ipratropium 20 mcg-albuterol 100 1 puff inhalation TID PRN 01/26/23 04/01/23 Rx mcg/actuation mist for inhalation cough/wheezing/shortness of breath (Combivent Respimat) #1 g acetaminophen 650 mg 650 mg PO Q8H PRN fever or pain #1 02/24/23 04/01/23 Rx tablet,extended release (Tylenol 8 tab Hour) diclofenac sodium 1 % topical gel 4 g EXT QID PRN right knee pain OR 02/24/23 04/01/23 Rx (Voltaren Arthritis Pain) back pain #1 tube levothyroxine 88 mcg capsule 88 mcg PO DAILY #30 caps 02/24/23 04/01/23 Rx polyethylene glycol 3350 17 gram 17 g PO DAILY #30 packets 02/24/23 04/01/23 Rx oral powder packet (Miralax) sennosides 8.6 mg tablet (Senokot) 17.2 mg (2 x 8.6 mg) PO QAM #60 02/24/23 04/01/23 Rx tabs bumetanide 2 mg tablet 4 mg (2 x 2 mg) PO BID #120 tabs 03/06/23 04/01/23 Rx baclofen 10 mg tablet 10 mg PO BID PRN muscle 03/10/23 04/01/23 Rx stiffness/spasm #60 tabs apixaban 2.5 mg tablet 2.5 mg PO BID #60 tabs 03/19/23 04/01/23 Rx metoprolol tartrate 50 mg tablet 25 mg (1/2 x 50 mg) PO BID #30 tabs 03/19/23 04/01/23 Rx potassium chloride 20 mEq 20 meq PO BID #60 tabs 03/19/23 04/01/23 Rx tablet,extended release sertraline 100 mg tablet 200 mg (2 x 100 mg) PO DAILY #60 03/19/23 04/01/23 Rx tabs trazodone 50 mg tablet 50 mg PO HS #30 tabs 03/19/23 04/01/23 Rx gabapentin 600 mg tablet 600 mg PO TID #90 tabs 03/31/23 04/01/23 Rx nitrofurantoin 100 mg PO Q12H 7 days #14 caps 04/01/23 04/01/23 Rx monohydrate/macrocrystals 100 mg capsule (Macrobid) prednisone 10 mg tablet See Rx Instructions PO DAILY #30 04/01/23 04/01/23 Rx tabs clonazepam 0.5 mg tablet 0.5 mg PO HS #30 tabs 04/16/23 Rx Past Med/Surg History Medical History (Updated 05/01/23 @ 15:31 by Kostas Patel MD) Sleep apnea Primary hypothyroidism Hepatitis C Left spastic hemiparesis Right knee pain Cirrhosis Fatty liver ANTWAN (acute kidney injury) Back pain Hypothyroidism Acute on chronic heart failure with preserved ejection fraction (HFpEF) Snoring Iron deficiency Tobacco dependence B12 deficiency Hypokalemia Morbid obesity Thalassemia Edema, peripheral Splenic abscess Splenomegaly Hypoxia Opioid use disorder, severe, in sustained remission on maintenance therapy Methadone MENDEZ (generalized anxiety disorder) Major depressive disorder, recurrent episode, moderate with anxious distress Chronic right arterial ischemic stroke, MCA (middle cerebral artery) Left-sided weakness Bipolar disorder History of embolic stroke Rt MCA History of stroke Drug abuse and dependence Anemia Endocarditis Anxiety PCOS (polycystic ovarian syndrome) Surgical History S/P mitral valve replacement with bioprosthetic valve (06/2022) H/O mitral valve replacement History of repair of ACL History of section History of tubal ligation Family History Grandmother (Paternal) Breast cancer Grandfather (Maternal) Myocardial infarction Graves disease Grandfather (Paternal) Myocardial infarction Other Thalassemia Denies family history of Colon cancer Ovarian cancer Prostate cancer Social History Smoking Status: Current every day smoker Tobacco Type: Cigarettes packs per day: 1; Second Hand Exposure: Yes; Do You Dip or Chew Tobacco: No; Hx Alcohol Use: Yes Hx Substance Use: Yes Last Used Substance: Days (ago) Substance Use Type Other:: clean for 10 months Preferred Language: Indian Communication Ability: Effective Visual Impairment: No Limitations Hearing Ability: Normal Palaeontologist Required: No Beliefs That Will Affect Care: None marital status: Single Current Living Situation: Parent Current Living Situation Comment: boyfriend and her 3 daughters 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 NAD. Cooperative. HEENT: Atraumatic, normocephalic. Trace L facial droop on smile. EOM intact. Vision/hearing grossly intact Pulm: CTAB A&P. -wheezes, -rales, -rhonchi. Symmetrical chest rise. No increased work of breathing. No respiratory distress. Cardiac: RRR, +sm. -rg. Midline well healed sternal inscision. Radial pulses intact and symmetrical. JVD 1cm above clavicle. Abdominal:Softly distended/obsese, NT BS present. Ext: Bilateral LE swelling, 1-2+ pitting edema bilat. Tibco Developer strength, elbow flexion 4-/5 L, 5/5 R. Hip flexion 3/5 L, 5/5 R. Ankle dorsi/plantarflexion 4-/5 L, 5/5 R. Sensation intact to soft touch in extremities bilaterally but qualitatively decreased L compared to R. Results & Data Results & Data Vital Signs (Past 12 Hours) Vital Signs Temp Pulse Resp BP Pulse Ox O2 Del Method O2 Flow Rate 05/01/23 12:00 79 05/01/23 11:20 94 Nasal Cannula 3 05/01/23 11:15 37.0 C 79 22 109/62 87 L Room Air PG Care Time/CCT Total # of Minutes Spent Total Time Spent with Patient: Total time spent is greater than 50% in coordination of care (as documented) at patient's floor/unit and/or counseling patient: Coding Level of Care Code 54609 INT INP/OBS CARE 375MIN Diagnoses (HFpEF) heart failure with preserved ejection fraction I50.30 Chronic right arterial ischemic stroke, MCA (middle cerebral artery) I69.30 Sleep apnea G47.30 Primary hypothyroidism E03.9 Hepatitis C B19.20
[2023-05-01] MEDS ORDERED: IPRATROPIUM BROMIDE/ALBUTEROL respimat INH INH PRN (18:08)
[2023-05-01] MEDS ORDERED: ALBUTEROL HFA 8 GM INHALER INH PRN (18:20)
[2023-05-01] MEDS ORDERED: IPRATROPIUM BROMIDE HFA INHALER INH PRN (18:20)
[2023-05-01] MEDS: METOPROLOL TARTRATE 25 MG TAB PO SCH (21:45)
[2023-05-01] MEDS: MELATONIN 3 MG TAB PO SCH (21:45)
[2023-05-01] MEDS: traZODone HCL 50 MG TAB PO SCH (21:45)
[2023-05-01] MEDS: clonazePAM 0.5 MG TAB PO SCH (21:45)
[2023-05-01] MEDS: APIXABAN 2.5 MG TAB PO SCH (21:45)
[2023-05-01] MEDS: GABAPENTIN 600 MG TAB PO SCH (21:45)
[2023-05-01] MEDS ORDERED: MICONAZOLE NITRATE POWDER 85 GM EXT PRN (22:56)
--- NOTE | 2023-05-01 23:23 | Ultrasound Report ---
ULTRASOUND LEFT LOWER EXTREMITY VENOUS CLINICAL HISTORY: Dyspnea. Left leg swelling. COMPARISON STUDY: Bilateral lower extremity venous ultrasound dated 12/26/2022. TECHNIQUE: Real-time, grayscale, and color Doppler sonography of the deep veins of the left lower ext remity was performed from the inguinal crease to the calf. Compression and augmentation were utilized . FINDINGS: There is no sonographic evidence of deep venous thrombosis identified in the left lower ext remity. The common femoral, superficial femoral, and popliteal veins are patent and normally compress ible. The greater saphenous vein and the profunda femoris vein at the junction with the common femora l vein are clear. The visualized calf veins are patent. IMPRESSION: There is no sonographic evidence of deep venous thrombosis identified in the left lower e xtremity. ACT 112: Negative or not required by law. Electronically signed by: Gaudencio Phillips M.D. 05/01/2023 11:20 PM
[2023-05-02 00:28] LABS: Appearance Urine Clear (Clear); Bilirubin Urine Negative (Negative); Blood Urine Negative (Negative); Color Urine Yellow; Glucose Urine UA Negative (Negative); Ketones Urine Negative (Negative); Leukocyte Esterase Urine Negative (Negative); Nitrite Urine Negative (Negative); Protein Urine Negative (Negative); Specific Gravity Urine 1.016 (1.000-1.030); Urobilinogen Urine Negative (Negative); pH Urine 5.5 (4.5-7.5)
[2023-05-02 06:37] LABS: Basophils # (auto) 0.05 K/uL (0.00-0.20); Basophils % (auto) 0.8 %; Eosinophils # (auto) 0.27 K/uL (0.00-0.50); Eosinophils % (auto) 4.2 %; Hematocrit (blood only) 35.7 % (37.0-47.0); Hemoglobin 10.6 g/dl (12.0-16.0); Immature Granulocytes # (auto) 0.01 K/uL (0.01-0.20); Immature Granulocytes % (auto) 0.2 %; Lymphocytes # (auto) 1.94 K/uL (1.20-3.40); Lymphocytes % (auto) 30.2 %; Mean Corpuscular Hemoglobin 23.1 pg (25.0-34.0); Mean Corpuscular Hgb Conc 29.7 g/dL (32.0-36.0); Mean Corpuscular Volume 77.9 fL (80.0-100.0); Mean Platelet Volume 9.2 fL (9.4-12.4); Monocytes % (auto) 7.8 %; Neutrophils # (auto) 3.65 K/uL (1.40-6.50); Neutrophils % (auto) 56.8 %; Platelet Count 416 K/uL (130-400); RDW Coefficient of Variation 17.3 % (11.5-14.5); RDW Standard Deviation 49.1 fL (36.4-46.3); Red Blood Count 4.58 M/uL (4.20-5.40); White Blood Count 6.42 K/ul (4.8-10.8)
[2023-05-02 06:40] LABS: BUN Creatinine Ratio 14.6 (10-20); Calcium 8.9 mg/dl (8.6-10.3); Creatinine Clr Calc Pharmacy 132.9 ml/min; Est GFR (Non-African American) 69.9 ml/min; Potassium 3.6 mmol/L (3.5-5.1)
[2023-05-02] MEDS ORDERED: METHADONE ORAL SOLN 2 MG/ML PO SCH (09:00)
[2023-05-02] MEDS: BUMETANIDE 2 MG in SYRINGE 0 ML IV SCH ×2 (09:59→17:44)
[2023-05-02] MEDS: SERTRALINE HCL 100 MG TABLET PO SCH (09:59)
[2023-05-02] MEDS: METOPROLOL TARTRATE 25 MG TAB PO SCH ×2 (09:59→20:57)
[2023-05-02] MEDS: POLYETHYLENE (MIRALAX) 17 GM PACK PO SCH (10:00)
[2023-05-02] MEDS: APIXABAN 2.5 MG TAB PO SCH ×2 (10:00→20:57)
[2023-05-02] MEDS: FLUTICASONE FUROATE 100MCG 14 PUFFS/INHALER INH SCH ×2 (10:00→20:58)
[2023-05-02] MEDS: GABAPENTIN 600 MG TAB PO SCH ×3 (10:00→20:57)
[2023-05-02] MEDS: ASPIRIN 81 MG ECTAB PO SCH (10:00)
[2023-05-02] MEDS: METHADONE ORAL SOLN 2 MG/ML PO SCH (10:58)
[2023-05-02] MEDS: [UNRECOGNIZED DRUG - OTHER] SCH (10:59)
--- NOTE | 2023-05-02 12:43 | Electrocardiogram Report ---
Test Reason : Blood Pressure : / mmHG Vent. Rate : 079 BPM Atrial Rate : 079 BPM P-R Int : 156 ms QRS Dur : 076 ms QT Int : 402 ms P-R-T Axes : 042 039 070 degrees QTc Int : 460 ms Sinus rhythm Low voltage QRS Nonspecific T wave abnormality Abnormal ECG When compared with ECG of 18-FEB-2023 11:09, Nonspecific T wave abnormality, worse in Anterolateral leads Confirmed by Marco Crawley ([id number]) on 05/02/2023 12:43:12 PM Referred By: REFERRED SELF Confirmed By:Marco Crawley
--- NOTE | 2023-05-02 18:07 | Hospitalist Progress Note ---
Date of Service May 02, 2023 Assessment & Plan (1) (HFpEF) heart failure with preserved ejection fraction: Plan: Acute on chronic heart failure with preserved ejection fraction IV Bumex twice daily, strict ins and outs, target net 2 L negative per day Previous dry weight around 370 pounds, [id number]. 186.2 kg on admission Last saw heart failure clinic 03/10. BNP has been negative with heart failure, this was suspected to be artificially low due to severe obesity Recieved Bumex 2 mg IV while in the ER. Home regimen is Bumex 2 mg p.o. twice daily. IV -The patient has no idea of what triggered CHF exacerbation, stating that he follows diet and take his medication accordingly - HH diet - SGLT deferred 2/2 hx UTIs Lower extremity edema suspect due to acute on chronic CHF, patient noticed that she had a preceding left lower extremity pain and swelling which is both disproportionate swelling and pain compared to her prior admits. She is on Eliquis however this is a 2.5 mg twice daily dose and with an extremely elevated BMI at risk for subtherapeutic protection, will order DVT of the left lower extremity to R/oh DVT. (2) Chronic right arterial ischemic stroke, MCA (middle cerebral artery): Plan: History of right MCA ischemic stroke - With residual left-sided weakness Due to endocarditis in the setting of IV drug abuse, now in remission Continue aspirin/Eliquis No new stroke deficit (3) Sleep apnea: Plan: Sleep apnea Severe, with comorbid obesity hypoventilation syndrome CPAP nightly (4) Primary hypothyroidism: Plan: Hypothyroidism Continue Synthroid (5) Hepatitis C: Plan: Hepatitis C, early cirrhosis Patient with history of hep C positive test, and history of fatty liver with early cirrhosis. Patient is pending follow-up with infectious disease as an outpatient, she has intake labs scheduled for this weekend. No transaminitis, low suspicion for hepatic decompensation at this time Plan Chronic Issues: History of opioid abuse disorder in remission. Methadone continued on admission Depression/anxiety.Continue clonazepam nightly, patient weaning as outpatient Mitral valve replacement: Bioprosthetic, noted Anticoagulation: Pt is on eliquis 2.5mg BID for DVT ppx due to stasis. THi sis not required for her artificial valve, and she has no history of Afib or DVT/PE. Limited data that apixaban does have plasma reduction in obese patients that does not require dose adjustment; however pt is at the extreme end of BMI. Goals of care: Patient has expressed desire to be DNR/DNI to outpatient providers and does not not want to return to the hospital, her mother does not agree with this and has had disagreement on how best to manage exacerbations as an outpatient. Was pending care planning with PCP/palliative care as outpatient. I did discuss this with patient and her mother at bedside. She reports that at this time she would be interested in assistive palliative m easures to help manage for chronic discomfort and comorbidities but is not interested in any type of hospice or comfort measure oriented planning. Her and her mother's goal are currently to extend her life as much as possible with any and all available treatments. Neelima reports that she has expressed a desire in the past to be DNR/DNI and avoid hospitalization; however at this time agrees with full code measures. DVT PPx: eliquis Diet: HH/1200cc fluid restriction CODE: Full Dispo: PCU Admission and Anticipated Discharge Date Admission Date: May 01, 2023 Subjective Feels better today, continue Bumex 2 mg IV twice daily, Results & Data Results & Data Vital Signs (Past 12 Hours) Vital Signs Temp Pulse Pulse Resp BP Pulse Ox O2 Del Method 05/02/23 16:39 36.5 C 69 15 94/52 L 95 Nasal Cannula 05/02/23 11:41 37.1 C 75 18 122/66 98 Room Air 05/02/23 08:00 84 05/02/23 08:00 Nasal Cannula 05/02/23 07:31 37.0 C 86 15 169/101 H 90 Nasal Cannula O2 Flow Rate 05/02/23 16:39 1 05/02/23 11:41 05/02/23 08:00 05/02/23 08:00 2 05/02/23 07:31 2 PG Care Time/CCT Total # of Minutes Spent Total Time Spent with Patient: Total time spent is greater than 50% in coordination of care (as documented) at patient's floor/unit and/or counseling patient: Coding Level of Care Code 29337 SUB INP/OBS CARE 3/50MIN Diagnoses (HFpEF) heart failure with preserved ejection fraction I50.30 Chronic right arterial ischemic stroke, MCA (middle cerebral artery) I69.30 Sleep apnea G47.30 Primary hypothyroidism E03.9 Hepatitis C B19.20
[2023-05-02] MEDS: clonazePAM 0.5 MG TAB PO SCH (20:57)
[2023-05-02] MEDS: MELATONIN 3 MG TAB PO SCH (20:57)
[2023-05-02] MEDS: traZODone HCL 50 MG TAB PO SCH (20:57)
[2023-05-03] MEDS: [UNRECOGNIZED DRUG - OTHER] SCH (08:28)
[2023-05-03] MEDS: GABAPENTIN 600 MG TAB PO SCH ×3 (08:28→20:28)
[2023-05-03] MEDS: SERTRALINE HCL 100 MG TABLET PO SCH (08:28)
[2023-05-03] MEDS: APIXABAN 2.5 MG TAB PO SCH ×2 (08:28→20:28)
[2023-05-03] MEDS: BUMETANIDE 2 MG in SYRINGE 0 ML IV SCH ×2 (08:28→16:58)
[2023-05-03] MEDS: METOPROLOL TARTRATE 25 MG TAB PO SCH ×2 (08:28→20:28)
[2023-05-03] MEDS: ASPIRIN 81 MG ECTAB PO SCH (08:28)
[2023-05-03] MEDS: POLYETHYLENE (MIRALAX) 17 GM PACK PO SCH (08:28)
[2023-05-03] MEDS: METHADONE ORAL SOLN 2 MG/ML PO SCH (08:30)
[2023-05-03 09:25] LABS: Basophils # (auto) 0.07 K/uL (0.00-0.20); Basophils % (auto) 1.3 %; Eosinophils % (auto) 3.8 %; Hematocrit (blood only) 34.2 % (37.0-47.0); Hemoglobin 10.3 g/dl (12.0-16.0); Immature Granulocytes # (auto) 0.01 K/uL (0.01-0.20); Immature Granulocytes % (auto) 0.2 %; Lymphocytes # (auto) 1.67 K/uL (1.20-3.40); Lymphocytes % (auto) 31.6 %; Mean Corpuscular Hemoglobin 23.3 pg (25.0-34.0); Mean Corpuscular Hgb Conc 30.1 g/dL (32.0-36.0); Mean Corpuscular Volume 77.2 fL (80.0-100.0); Mean Platelet Volume 9.4 fL (9.4-12.4); Monocytes # (auto) 0.45 K/uL (0.11-0.59); Monocytes % (auto) 8.5 %; Neutrophils # (auto) 2.88 K/uL (1.40-6.50); Neutrophils % (auto) 54.6 %; Platelet Count 399 K/uL (130-400); RDW Coefficient of Variation 17.1 % (11.5-14.5); RDW Standard Deviation 47.7 fL (36.4-46.3); Red Blood Count 4.43 M/uL (4.20-5.40); White Blood Count 5.28 K/ul (4.8-10.8)
[2023-05-03 09:26] LABS: BUN Creatinine Ratio 16.5 (10-20); Calcium 9.3 mg/dl (8.6-10.3); Creatinine Clr Calc Pharmacy 141.7 ml/min; Est GFR (African American) 87.1 ml/min; Est GFR (Non-African American) 75.1 ml/min
--- NOTE | 2023-05-03 19:17 | Hospitalist Progress Note ---
Date of Service May 03, 2023 Assessment & Plan (1) (HFpEF) heart failure with preserved ejection fraction: Plan: Acute on chronic heart failure with preserved ejection fraction -Cumulative fluid balance of 12 is negative at 2200, add metolazone, similar weight to go, elevate IV Bumex twice daily, strict ins and outs, target net 2 L negative per day Previous dry weight around 370 pounds, [id number]. 186.2 kg on admission Last saw heart failure clinic 03/10. BNP has been negative with heart failure, this was suspected to be artificially low due to severe obesity -The patient has no idea of what triggered CHF exacerbation, stating that he follows diet and take his medication accordingly - HH diet - SGLT deferred 2/2 hx UTIs She is on Eliquis however this is a 2.5 mg twice daily dose and with an extremely elevated BMI at risk for subtherapeutic protection, will order DVT of the left lower extremity to R/oh DVT. (2) Chronic right arterial ischemic stroke, MCA (middle cerebral artery): Plan: History of right MCA ischemic stroke - With residual left-sided weakness Due to endocarditis in the setting of IV drug abuse, now in remission Continue aspirin/Eliquis No new stroke deficit -History of opioid abuse disorder in remission. Methadone continued on admission -Depression/anxiety.Continue clonazepam nightly, patient weaning as outpatient -Mitral valve replacement: Bioprosthetic, noted -Anticoagulation: Pt is on eliquis 2.5mg BID for DVT ppx due to stasis. THi sis not required for her artificial valve, and she has no history of Afib or DVT/PE. Limited data that apixaban does have plasma reduction in obese patients that does not require dose adjustment; however pt is at the extreme end of BMI. (3) Sleep apnea: Plan: Sleep apnea Severe, with comorbid obesity hypoventilation syndrome CPAP nightly (4) Primary hypothyroidism: Plan: Hypothyroidism Continue Synthroid (5) Hepatitis C: Plan: Hepatitis C, early cirrhosis Patient with history of hep C positive test, and history of fatty liver with early cirrhosis. Patient is pending follow-up with infectious disease as an outpatient, she has intake labs scheduled for this weekend. No transaminitis, low suspicion for hepatic decompensation at this time Plan Continue Bumex IV twice daily, add metolazone, daily weight, strict LEE's, downg rade to telemetry bed s: Goals of care: Patient has expressed desire to be DNR/DNI to outpatient providers and does not not want to return to the hospital, her mother does not agree with this and has had disagreement on how best to manage exacerbations as an outpatient. Was pending care planning with PCP/palliative care as outpatient. I did discuss this with patient and her mother at bedside. She reports that at this time she would be interested in assistive palliative measures to help manage for chronic discomfort and comorbidities but is not interested in any type of hospice or comfort measure oriented planning. Her and her mother's goal are currently to extend her life as much as possible with any and all available treatments. Neelima reports that she has expressed a desire in the past to be DNR/DNI and avoid hospitalization; however at this time agrees with full code measures. DVT PPx: eliquis Diet: HH/1200cc fluid restriction CODE: Full Dispo: PCU Admission and Anticipated Discharge Date Admission Date: May 01, 2023 Subjective Feels better today, continue Bumex 2 mg IV twice daily, Results & Data Results & Data Vital Signs (Past 12 Hours) Vital Signs Temp Pulse Pulse Resp BP Pulse Ox O2 Del Method 05/03/23 15:54 37.0 C 70 20 94 Nasal Cannula 05/03/23 15:39 71 05/03/23 11:49 36.9 C 69 19 103/63 93 Nasal Cannula 05/03/23 09:00 Nasal Cannula 05/03/23 08:15 71 05/03/23 07:36 37.0 C 72 18 110/62 96 Room Air O2 Flow Rate 05/03/23 15:54 1 05/03/23 15:39 05/03/23 11:49 1 05/03/23 09:00 2 05/03/23 08:15 05/03/23 07:36 PG Care Time/CCT Total # of Minutes Spent Total Time Spent with Patient: Total time spent is greater than 50% in coordination of care (as documented) at patient's floor/unit and/or counseling patient: Coding Level of Care Code 94982 SUB INP/OBS CARE 3/50MIN Diagnoses (HFpEF) heart failure with preserved ejection fraction I50.30 Chronic right arterial ischemic stroke, MCA (middle cerebral artery) I69.30 Sleep apnea G47.30 Primary hypothyroidism E03.9 Hepatitis C B19.20
[2023-05-03] MEDS: clonazePAM 0.5 MG TAB PO SCH (20:27)
[2023-05-03] MEDS: MELATONIN 3 MG TAB PO SCH (20:27)
[2023-05-03] MEDS: traZODone HCL 50 MG TAB PO SCH (20:27)
[2023-05-03] MEDS: metOLazone 5 MG TABLET PO SCH (21:28)
[2023-05-04] MEDS: BUMETANIDE 2 MG in SYRINGE 0 ML IV SCH ×2 (08:22→17:58)
[2023-05-04] MEDS: FLUTICASONE FUROATE 100MCG 14 PUFFS/INHALER INH SCH (08:22)
[2023-05-04] MEDS: METOPROLOL TARTRATE 25 MG TAB PO SCH ×2 (08:22→21:32)
[2023-05-04] MEDS: ASPIRIN 81 MG ECTAB PO SCH (08:22)
[2023-05-04] MEDS: GABAPENTIN 600 MG TAB PO SCH ×3 (08:22→21:31)
[2023-05-04] MEDS: APIXABAN 2.5 MG TAB PO SCH (08:22)
[2023-05-04] MEDS: metOLazone 5 MG TABLET PO SCH (08:22)
[2023-05-04] MEDS: SERTRALINE HCL 100 MG TABLET PO SCH (08:23)
[2023-05-04] MEDS: [UNRECOGNIZED DRUG - OTHER] SCH (08:23)
[2023-05-04] MEDS: POLYETHYLENE (MIRALAX) 17 GM PACK PO SCH (08:23)
[2023-05-04] MEDS: METHADONE ORAL SOLN 2 MG/ML PO SCH (08:24)
[2023-05-04 08:54] LABS: Basophils # (auto) 0.05 K/uL (0.00-0.20); Basophils % (auto) 0.7 %; Eosinophils % (auto) 4.5 %; Hematocrit (blood only) 35.1 % (37.0-47.0); Hemoglobin 10.6 g/dl (12.0-16.0); Immature Granulocytes # (auto) 0.01 K/uL (0.01-0.20); Immature Granulocytes % (auto) 0.1 %; Lymphocytes # (auto) 1.79 K/uL (1.20-3.40); Lymphocytes % (auto) 26.7 %; Mean Corpuscular Hemoglobin 23.9 pg (25.0-34.0); Mean Corpuscular Hgb Conc 30.2 g/dL (32.0-36.0); Mean Corpuscular Volume 79.1 fL (80.0-100.0); Mean Platelet Volume 9.1 fL (9.4-12.4); Monocytes # (auto) 0.48 K/uL (0.11-0.59); Monocytes % (auto) 7.2 %; Neutrophils # (auto) 4.08 K/uL (1.40-6.50); Neutrophils % (auto) 60.8 %; Platelet Count 391 K/uL (130-400); RDW Coefficient of Variation 16.7 % (11.5-14.5); RDW Standard Deviation 47.8 fL (36.4-46.3); Red Blood Count 4.44 M/uL (4.20-5.40); White Blood Count 6.71 K/ul (4.8-10.8)
[2023-05-04 09:26] LABS: Anion Gap 5 (3-11); BUN Creatinine Ratio 17.9 (10-20); Blood Urea Nitrogen 17 mg/dl (6-23); Calcium 9.6 mg/dl (8.6-10.3); Carbon Dioxide 36 mmol/L (21-32); Chloride 94 mmol/L (98-107); Creatinine Clr Calc Pharmacy 144.8 ml/min; Est GFR (African American) 89.3 ml/min; Est GFR (Non-African American) 77.1 ml/min; Glucose 108 mg/dl (70-99(Fasting)); Sodium 135 mmol/L (136-145)
[2023-05-04] MEDS: ACETAMINOPHEN 325 MG TAB PO PRN (13:43)
--- NOTE | 2023-05-04 16:46 | Hospitalist Progress Note ---
Date of Service May 04, 2023 Assessment & Plan (1) (HFpEF) heart failure with preserved ejection fraction: Plan: Acute on chronic heart failure with preserved ejection fraction -Cumulative fluid balance negative of 7 liters, continue metolazone, continue Bumex, IV Bumex twice daily, strict ins and outs, target net 2 L negative per day Previous dry weight around 370 pounds, [id number]. 186.2 kg on admission, she has about 18 kg to lose, this is important given patient has suffering from DJD, morbid obesity, right-sided weakness due to stroke, losing extra volume help her to be ambulatory Last saw heart failure clinic 03/10. BNP has been negative with heart failure, this was suspected to be artificially low due to severe obesity -The patient has no idea of what triggered CHF exacerbation, stating that he follows diet and take his medication accordingly - HH diet - SGLT deferred 2/2 hx UTIs She is on Eliquis however this is a 2.5 mg twice daily dose and with an extremely elevated BMI at risk for subtherapeutic protection, will order DVT of the left lower extremity to R/oh DVT. 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 Methadone continued on admission -Depression/anxiety.Continue clonazepam nightly, patient weaning as outpatient -Mitral valve replacement: Bioprosthetic, noted -Anticoagulation: Pt is on eliquis 2.5mg BID for DVT ppx due to stasis. THi sis not required for her artificial valve, and she has no history of Afib or DVT/PE. Limited data that apixaban does have plasma reduction in obese patients that does not require dose adjustment; however pt is at the extreme end of BMI. (4) Sleep apnea: Plan: Sleep apnea Severe, with comorbid obesity hypoventilation syndrome CPAP nightly (5) Primary hypothyroidism: Plan: Hypothyroidism Continue Synthroid (6) Hepatitis C: Plan: Hepatitis C, early cirrhosis Patient with history of hep C positive test, and history of fatty liver with early cirrhosis. Patient is pending follow-up with infectious disease as an outpatient, she has intake labs scheduled for this weekend. No transaminitis, low suspicion for hepatic decompensation at this time Plan Continue Bumex and metolazone, patient gained about 18 kg, patient is responding very well to diuresis, it is important especially for her case given excessive weight made her nonambulatory, she is morbidly obese she has right-sided weakness she has DJD, losing weight can make her again ambulatory, so far she lost about 7 kg Hold Eliquis for possible intra-articular steroid Goals of care: Patient has expressed desire to be DNR/DNI to outpatient providers and does not not want to return to the hospital, her mother does not agree with this and has had disagreement on how best to manage exacerbations as an outpatient. Was pending care planning with PCP/palliative care as outpatient. I did discuss this with patient and her mother at bedside. She reports that at this time she would be interested in assistive palliative measures to help manage for chronic discomfort and comorbidities but is not interested in any type of hospice or comfort measure oriented planning. Her and her mother's goal are currently to extend her life as much as possible with any and all available treatments. Neelima reports that she has expressed a desire in the past to be DNR/DNI and avoid hospitalization; however at this time agrees with full code measures. DVT PPx: eliquis Diet: HH/1200cc fluid restriction CODE: Full Dispo: PCU Admission and Anticipated Discharge Date Admission Date: May 01, 2023 Subjective Feels better today, continue Bumex 2 mg IV twice daily, Physical Exam Physical Exam: General: A&Ox3. NAD. Cooperative. HEENT: Atraumatic, normocephalic. Trace L facial droop on smile. EOM intact. Vision/hearing grossly intact Pulm: CTAB A&P. -wheezes, -rales, -rhonchi. Symmetrical chest rise. No increased work of breathing. No respiratory distress. Cardiac: RRR, +sm. -rg. Midline well healed sternal inscision. Radial pulses intact and symmetrical. JVD 1cm above clavicle. Abdominal:Softly distended/obsese, NT BS present. Ext: Bilateral LE swelling, 1-2+ pitting edema bilat. Senior Validation Engineer strength, elbow flexion 4-/5 L, 5/5 R. Hip flexion 3/5 L, 5/5 R. Ankle dorsi/plantarflexion 4-/5 L, 5/5 R. Sensation intact to soft touch in extremities bilaterally but qualitatively decreased L compared to R. Results & Data Results & Data Vital Signs (Past 12 Hours) Vital Signs Temp Pulse Pulse Resp BP Pulse Ox O2 Del Method 05/04/23 15:29 36.8 C 72 20 112/57 L 96 Room Air 05/04/23 11:29 36.9 C 70 19 121/64 96 Room Air 05/04/23 08:30 Nasal Cannula 05/04/23 07:47 70 05/04/23 07:40 36.5 C 71 20 115/69 90 Room Air O2 Flow Rate 05/04/23 15:29 05/04/23 11:29 05/04/23 08:30 2 05/04/23 07:47 05/04/23 07:40 PG Care Time/CCT Total # of Minutes Spent Total Time Spent with Patient: Total time spent is greater than 50% in coordination of care (as documented) at patient's floor/unit and/or counseling patient: Coding Level of Care Code 05007 SUB INP/OBS CARE 3/50MIN Diagnoses (HFpEF) heart failure with preserved ejection fraction I50.30 Knee arthropathy M17.10 Chronic right arterial ischemic stroke, MCA (middle cerebral artery) I69.30 Sleep apnea G47.30 Primary hypothyroidism E03.9 Hepatitis C B19.20
[2023-05-04] MEDS: clonazePAM 0.5 MG TAB PO SCH (21:31)
[2023-05-04] MEDS: traZODone HCL 50 MG TAB PO SCH (21:31)
[2023-05-04] MEDS: MELATONIN 3 MG TAB PO SCH (21:33)
[2023-05-04] MEDS ORDERED: DOCUSATE SODIUM SYRUP 100 MG/10 ML UDC PO STA (21:50)
[2023-05-05 06:35] LABS: BUN Creatinine Ratio 16.7 (10-20); Calcium 9.6 mg/dl (8.6-10.3); Creatinine Clr Calc Pharmacy 120.8 ml/min; Est GFR (African American) 71.6 ml/min; Est GFR (Non-African American) 61.8 ml/min
[2023-05-05] MEDS ORDERED: POTASSIUM CHLORIDE CRTAB 20 MEQ TABCR PO STA (07:53)
[2023-05-05] MEDS: BUMETANIDE 2 MG in SYRINGE 0 ML IV SCH ×2 (08:05→16:39)
[2023-05-05] MEDS: metOLazone 5 MG TABLET PO SCH (08:05)
[2023-05-05] MEDS: SERTRALINE HCL 100 MG TABLET PO SCH (08:05)
[2023-05-05] MEDS: FLUTICASONE FUROATE 100MCG 14 PUFFS/INHALER INH SCH (08:06)
[2023-05-05] MEDS: GABAPENTIN 600 MG TAB PO SCH ×3 (08:06→21:20)
[2023-05-05] MEDS: METOPROLOL TARTRATE 25 MG TAB PO SCH (08:06)
[2023-05-05] MEDS: METHADONE ORAL SOLN 2 MG/ML PO SCH (08:14)
[2023-05-05] MEDS: [UNRECOGNIZED DRUG - OTHER] SCH (08:15)
--- OUTSIDE RECORDS SUMMARY | 2023-05-05 08:59 | External Medical Summary ---
Author Name Unknown Address Unknown Organization K09:[facility] [place] [address] Laboratory Report Ordering Provider Test Date Status JOE ESCAMILLA 12/10/2022 05:50:00 Final Observation Date Value Abnormality Reference (Units ) Status WBC, Total 12/10/2022 05:50:00 7.61 4.00-10.8 0 (K/uL) Final RBC 12/10/2022 05:50:00 4.32 3.85-5.15 (M/uL) Final Hemoglobin 12/10/2022 05:50:00 10.2 Below low normal 12 .0-15.3 (g/dL) Final HCT 12/10/2022 05:50:00 34.7 Below low normal 36. 0-45.2 (%) Final MCV 12/10/2022 05:50:00 80.3 81.5-97.5 (fL) Final MCH 12/10/2022 05:50:00 23.6 27.0-34.0 (pg) Final MCHC 12/10/2022 05:50:00 29.4 32.0-36.0 (g/dL) Final RDW 12/10/2022 05:50:00 19.1 11.5-15.5 (%) Final Platelets 12/10/2022 05:50:00 478 Above high normal 14 0-400 (K/uL) Final MPV 12/10/2022 05:50:00 10.0 6.6-11.1 ( fL) Final Performing Location [facility] [place] [address]
[2023-05-05] MEDS: POLYETHYLENE (MIRALAX) 17 GM PACK PO SCH (10:11)
--- NOTE | 2023-05-05 12:31 | Hospitalist Progress Note ---
Date of Service May 05, 2023 Assessment & Plan (1) (HFpEF) heart failure with preserved ejection fraction: Plan: Acute on chronic heart failure with preserved ejection fraction -Patient is making good urine, states shortness of breath is much improved We will continue IV Bumex twice daily, strict ins and outs, target net 2 L negative per day Previous dry weight around 370 pounds, [id number]. 186.2 kg on admission, she has about 18 kg to lose, Last saw heart failure clinic 03/10. BNP has been negative with heart failure, this was suspected to be artificially low due to severe obesity -Patient claims she is compliant with her meds at home - SGLT deferred / hx UTIs She is on Eliquis however this is a 2.5 mg twice daily dose and with an extremely elevated BMI at risk for subtherapeutic protection, will order DVT of the left lower extremity to R/oh DVT. 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 Methadone continued on admission -Depression/anxiety.Continue clonazepam nightly, patient weaning as outpatient -Mitral valve replacement: Bioprosthetic, noted -Anticoagulation: Pt is on eliquis 2.5mg BID for DVT ppx due to stasis. THi sis not required for her artificial valve, and she has no history of Afib or DVT/PE. Limited data that apixaban does have plasma reduction in obese patients that does not require dose adjustment; however pt is at the extreme end of BMI. (4) Sleep apnea: Plan: Sleep apnea Severe, with comorbid obesity hypoventilation syndrome CPAP nightly (5) Primary hypothyroidism: Plan: Hypothyroidism Continue Synthroid (6) Hepatitis C: Plan: Hepatitis C, early cirrhosis Patient with history of hep C positive test, and history of fatty liver with early cirrhosis. Patient is pending follow-up with infectious disease as an outpatient, she has intake labs scheduled for this weekend. No transaminitis, low suspicion for hepatic decompensation at this time Plan Goals of care: Patient has expressed desire to be DNR/DNI to outpatient providers and does not not want to return to the hospital, her mother does not agree with this and has had disagreement on how best to manage exacerbations as an outpatient. Was pending care planning with PCP/palliative care as outpatient. I did discuss this with patient and her mother at bedside. She reports that at this time she would be interested in assistive palliative measures to help manage for chronic discomfort and comorbidities but is not interested in any type of hospice or comfort measure oriented planning. Her and her mother's goal are currently to extend her life as much as possible with any and all available treatments. Neelima reports that she has expressed a desire in the past to be DNR/DNI and avoid hospitalization; however at this time agrees with full code measures. DVT PPx: eliquis Diet: HH/1200cc fluid restriction CODE: Full Dispo: PCU Admission and Anticipated Discharge Date Admission Date: May 01, 2023 Subjective Patient seen and examined today, states shortness of breath is much better and also leg swelling Review of Systems Review of Systems: All systems reviewed are negative, apart from the ones contained in the history. Physical Exam Physical Exam: The patient is awake, alert and oriented 3, well developed and well nourished, normocephalic and atraumatic, lying in bed and in no acute distress. HEENT--PERRL, EOMI, mucous membranes and oropharynx mildly dry Neck--supple. No JVD. No bruits. Thyroid normal, trachea midline, no adenopathy. Heart--normal S1 and S2. No murmurs, rubs or gallops. Lungs--clear bilaterally, no respiratory distress, no accessory muscle use. Abdomen--normal bowel sounds and soft. Mild epigastric and left sided abdominal pain Extremities--no cyanosis or clubbing. No edema. Dermatologic--normal skin turgor, normal color, no abnormal lymph nodes, no rash. Neurologic--cranial nerves II through XII grossly intact. Rheumatologic--normal range of motion. Psychiatric--normal affect. Results & Data Results & Data Vital Signs (Past 12 Hours) Vital Signs Temp Pulse Pulse Resp BP Pulse Ox O2 Del Method 05/05/23 12:11 98.7 F 79 105/79 95 Room Air 05/05/23 11:33 97.9 F 81 18 106/67 94 Room Air 05/05/23 09:00 77 05/05/23 09:00 Room Air 05/05/23 08:10 97.7 F 78 20 101/62 97 Room Air 05/05/23 03:37 97.7 F 83 15 112/59 L 93 Nasal Cannula 05/05/23 00:38 97.7 F 85 16 98/67 L 96 Nasal Cannula O2 Flow Rate 05/05/23 12:11 05/05/23 11:33 05/05/23 09:00 05/05/23 09:00 05/05/23 08:10 05/05/23 03:37 1.5 05/05/23 00:38 1.5 PG Care Time/CCT Total # of Minutes Spent Total Time Spent with Patient: Total time spent is greater than 50% in coordination of care (as documented) at patient's floor/unit and/or counseling patient: Coding Level of Care Code 40936 SUB INP/OBS CARE 2/35MIN Diagnoses (HFpEF) heart failure with preserved ejection fraction I50.30 Knee arthropathy M17.10 Chronic right arterial ischemic stroke, MCA (middle cerebral artery) I69.30 Sleep apnea G47.30 Primary hypothyroidism E03.9 Hepatitis C B19.20 Time Spent (min) 35
--- NOTE | 2023-05-05 14:50 | Orthopedic Consultation ---
Date of Service May 05, 2023 Assessment & Plan (1) Knee arthropathy: At this point, I would like to obtain an x-ray of the right knee to rule out any osseous abnormalities prior to doing a joint injection. She has not had an x- ray that I can review in the system of the right knee. Conservative treatment was discussed in full with the patient in which she verbalized understanding and wishes to proceed with a corticosteroid injection into the right knee if the x- rays are negative. If x-rays are negative, patient will undergo a steroid injection tomorrow morning to her right knee. Orders were placed for both the x-ray as well as steroid injection in anticipation that the x-rays will be negative. She may still be weightbearing as tolerated to the right lower extremity. Medical management per primary. We will wait for the x-ray to be completed today in the next step in her orthopedic care. History of Present Illness Reason for Consultation: . RIGHT KNEE OA Requesting Physician: . Attending Physician: Lynda Torres MD . Patient is a 37-year-old female with a significant medical history who we were asked to evaluate today on consultation for right knee pain/osteoarthritic changes. She states that over the last couple days, she was having increasing knee pain which has been causing her to be nonambulatory at this present moment. She does note that she has seen an orthopedic surgeon in the past but they denied doing a total knee arthroplasty due to her BMI being above 60 at this present time. She does note that she has been trying to lose weight but she is currently going through congestive heart failure which is making her retain more fluid. She denies any low back pain, proximal/distal extremity pain, numbness/tingling, or paresthesias. She denies any other concerns at this point. Allergies Allergy/AdvReac Type Severity Reaction Status Date / Time sulfamethoxazole Allergy Severe Anaphylaxis Verified 04/01/23 13:35 [From Bactrim] trimethoprim [From Bactrim] Allergy Severe Anaphylaxis Verified 04/01/23 13:35 atorvastatin AdvReac Intermediate Muscle Pain Verified 04/01/23 13:35 Home Medications Medication Instructions Recorded Confirmed Type Wheelchair (Manual) #1 ea 03/25/22 04/01/23 Rx Hospital Bed Homecare (Hospital #1 ea 04/18/22 04/01/23 Rx Bed) Wheelchair (Manual) (Manual #1 ea 04/18/22 04/01/23 Rx Wheelchair) Lift Chair #1 ea 10/09/22 04/01/23 Rx miscellaneous medical supply #1 ea 10/16/22 04/01/23 Rx ketoconazole 2 % topical cream 1 applic topical BID 4 weeks #15 11/19/22 11/0 03/15 Rx grams aspirin 81 mg chewable tablet 81 mg PO DAILY 12/16/22 05/01/23 History fluticasone propionate 100 1 inh inhalation BID #60 ea 12/16/22 05/01/23 Rx mcg/actuation blister powder for inhalation (Flovent Diskus) melatonin 3 mg tablet 3 mg PO HS 12/16/22 05/01/23 History methadone 10 mg tablet 72 mg PO DAILY 12/16/22 05/01/23 History multivitamin with minerals 1 tab PO DAILY 12/16/22 05/01/23 History epinephrine 0.3 mg/0.3 mL 0.3 mg (0.3 mL) IM .COMPLEX PRN 12/26/22 05/01/23 Rx injection, auto-injector anaphylaxis #2 ea magnesium oxide 400 mg (241.3 mg 400 mg PO DAILY #30 tabs 01/08/23 05/01/23 Rx magnesium) tablet Oxygen Home #1 ea 01/26/23 04/01/23 Rx ipratropium 20 mcg-albuterol 100 1 puff inhalation TID PRN 01/26/23 05/01/23 Rx mcg/actuation mist for inhalation cough/wheezing/shortness of breath (Combivent Respimat) #1 g acetaminophen 650 mg 650 mg PO Q8H PRN fever or pain #1 02/24/23 05/01/23 Rx tablet,extended release (Tylenol 8 tab Hour) diclofenac sodium 1 % topical gel 4 g EXT QID PRN right knee pain OR 02/24/23 05/01/23 Rx (Voltaren Arthritis Pain) back pain #1 tube levothyroxine 88 mcg capsule 88 mcg PO DAILY #30 caps 02/24/23 05/01/23 Rx bumetanide 2 mg tablet 4 mg (2 x 2 mg) PO BID #120 tabs 03/06/23 05/01/23 Rx baclofen 10 mg tablet 10 mg PO BID PRN muscle 03/10/23 05/01/23 Rx stiffness/spasm #60 tabs apixaban 2.5 mg tablet 2.5 mg PO BID #60 tabs 03/19/23 05/01/23 Rx metoprolol tartrate 50 mg tablet 25 mg (1/2 x 50 mg) PO BID #30 tabs 03/19/23 05/01/23 Rx potassium chloride 20 mEq 20 meq PO BID #60 tabs 03/19/23 05/01/23 Rx tablet,extended release sertraline 100 mg tablet 200 mg (2 x 100 mg) PO DAILY #60 03/19/23 05/01/23 Rx tabs trazodone 50 mg tablet 50 mg PO HS #30 tabs 03/19/23 05/01/23 Rx gabapentin 600 mg tablet 600 mg PO TID #90 tabs 03/31/23 05/01/23 Rx clonazepam 0.5 mg tablet 0.5 mg PO HS #30 tabs 04/16/23 05/01/23 Rx pantoprazole 40 mg tablet,delayed 40 mg PO DAILY 05/01/23 05/01/23 History release polyethylene glycol 3350 17 gram 17 g PO DAILY PRN Constipation 05/01/23 05/01/23 History oral powder packet (Miralax) Past Med/Surg History Medical History Sleep apnea Primary hypothyroidism Hepatitis C Left spastic hemiparesis Right knee pain Cirrhosis Fatty liver ANTWAN (acute kidney injury) Back pain Hypothyroidism Acute on chronic heart failure with preserved ejection fraction (HFpEF) Snoring Iron deficiency Tobacco dependence B12 deficiency Hypokalemia Morbid obesity Thalassemia Edema, peripheral Splenic abscess Splenomegaly Hypoxia Opioid use disorder, severe, in sustained remission on maintenance therapy Methadone MENDEZ (generalized anxiety disorder) Major depressive disorder, recurrent episode, moderate with anxious distress Chronic right arterial ischemic stroke, MCA (middle cerebral artery) Left-sided weakness Bipolar disorder History of embolic stroke Rt MCA History of stroke Drug abuse and dependence Anemia Endocarditis Anxiety PCOS (polycystic ovarian syndrome) Surgical History S/P mitral valve replacement with bioprosthetic valve (06/2022) H/O mitral valve replacement History of repair of ACL History of section History of tubal ligation Family History Grandmother (Paternal) Breast cancer Grandfather (Maternal) Myocardial infarction Graves disease Grandfather (Paternal) Myocardial infarction Other Thalassemia Denies family history of Colon cancer Ovarian cancer Prostate cancer Social History Smoking Status: Current every day smoker Tobacco Type: Cigarettes packs per day: 1; Second Hand Exposure: Yes; Do You Dip or Chew Tobacco: No; Tobacco Cessation Education Requested by Patient: No Hx Alcohol Use: No Hx Substance Use: Yes Last Used Substance: Days (ago) Last Used Substance Other:: "13 months ago" Substance Use Type Other:: clean for 10 months Preferred Language: Kinyarwanda Communication Ability: Effective Visual Impairment: No Limitations Hearing Ability: Normal Security Incident Handler Required: No Beliefs That Will Affect Care: None marital status: Single Current Living Situation: Parent Current Living Situation Comment: Mother assists 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 Physical Exam The patient is awake, alert and oriented 3, well developed and well nourished, normocephalic and atraumatic, lying in bed and in no acute distress. HEENT--PERRL, EOMI, mucous membranes and oropharynx mildly dry Neck--supple. No JVD. No bruits. Thyroid normal, trachea midline, no adenopathy. Heart--normal S1 and S2. No murmurs, rubs or gallops. Lungs--clear bilaterally, no respiratory distress, no accessory muscle use. Abdomen--normal bowel sounds and soft. Mild epigastric and left sided abdominal pain Dermatologic--normal skin turgor, normal color, no abnormal lymph nodes, no rash. Neurologic--cranial nerves II through XII grossly intact. Psychiatric--normal affect. Musculoskeletal Focused exam of the right lower extremity reveals bilateral pitting edema diffusely throughout with right knee joint effusion. Slight tenderness to palpation to the medial aspect of the right knee. Limited range of motion and strength in all planes with flexion extension due to subjective discomfort. Calf soft nontender to palpation. Less than 2-second capillary refill. Normal sensation. Neurovascular intact. Results & Data Results & Data Laboratory Results . Diagnostic Findings . PG Care Time/CCT Total # of Minutes Spent Total Time Spent with Patient: Total time spent is greater than 50% in coordination of care (as documented) at patient's floor/unit and/or counseling patient: Coding Level of Care Code 97755 OFFICE CONSULT LVL M Diagnoses Knee arthropathy M17.10
[2023-05-05] MEDS ORDERED: BUPIVACAINE/EPINEPHRINE 0.25% 1:200,000 30 ML VIAL INFIL ONE (15:00)
[2023-05-05] MEDS ORDERED: TRIAMCINOLONE ACET 40 MG/ML VIAL IA ONE (15:00)
--- NOTE | 2023-05-05 16:01 | XRay Report ---
XR knee RT 1 or 2V routine HISTORY: 37 years-old Female Knee Pain acute right knee pain COMPARISON: 02/05/2016 TECHNIQUE: 2 views of the right knee FINDINGS: Cam and screw. Proximal tibial metaphysis. Progressive osteoarthritis of the knee, severe within the medial and patellofemoral compartments and moderate within the lateral compartment. No acute fracture or dislocation. Mild medial subluxation of the distal femur in relation to the proximal tibia which has progressed and appears chronic. Trace joint effusion suggested. Mild soft tissue swelling is most pronounced laterally. IMPRESSION: 1. No acute fracture or dislocation. 2. Progressive tricompartmental osteoarthritis, severe within the medial compartment. ACT 112: Negative or not required by law. The above report was generated using voice recognition software. It may contain grammatical, syntax o r spelling errors. Electronically signed by: Alex Ibarra M.D. 05/05/2023 4:00 PM
[2023-05-05] MEDS: MELATONIN 3 MG TAB PO SCH (21:20)
[2023-05-05] MEDS: traZODone HCL 50 MG TAB PO SCH (21:20)
[2023-05-05] MEDS: clonazePAM 0.5 MG TAB PO SCH (21:20)
[2023-05-06] MEDS: METOPROLOL TARTRATE 25 MG TAB PO SCH ×3 (01:34→21:30)
[2023-05-06 07:15] LABS: Calcium 9.9 mg/dl (8.6-10.3); Creatinine Clr Calc Pharmacy 130.9 ml/min; Est GFR (African American) 79.1 ml/min; Est GFR (Non-African American) 68.3 ml/min; Potassium 2.7 mmol/L (3.5-5.1)
[2023-05-06] MEDS ORDERED: POTASSIUM CHLORIDE CRTAB 20 MEQ TABCR PO STA (07:46)
--- NOTE | 2023-05-06 09:39 | Orthopedic Progress Note ---
Date of Service May 06, 2023 Assessment & Plan (1) Right knee DJD: At this time, I feel that she would benefit from a corticosteroid injection to the right knee. Please refer to procedure note below. Postinjection instructions were given to the patient for signs symptoms to look out for involving injection site infections. She is aware that she may be sore for the next 24 to 48 hours. She does state this she had immediate relief after the injection was administered. She is aware that she can get an injection every 3 months into the right knee if needed. She can follow-up with us as an outpatient if needed. Please [place] text or reach out to [facility] orthopedics if the patient's status changes during her stay. Procedure: Right knee intra-articular steroid injection. The right knee was prepped using aseptic technique. Site was marked and prepped with Betadine and alcohol swabs. Injection of 80 mg of Kenalog and 5 cc of half percent Marcaine with epinephrine was administered using a 10 cc syringe with a 20-gauge needle. A Band-Aid was placed over the injection site. She tolerated the procedure well and noted immediate relief. Subjective . Michelle was seen today at bedside resting comfortably in bed in no apparent distress. She does note that her right knee has still been giving her some issues overnight and wishes to proceed with a corticosteroid injection. I did review the x-rays which revealed no acute osseous abnormalities but does reveal tricompartmental osteoarthritis to the right knee most predominantly in the medial compartment. She denies any other concerns today. She has a nondiabetic. Review of Systems All systems reviewed & are unremarkable except as noted in HPI & below. Physical Exam . Focused exam of the right lower extremity reveals bilateral pitting edema diffusely throughout with right knee joint effusion. Slight tenderness to palpation to the medial aspect the right knee. Limited range of motion and strength in all planes with flexion extension due to subjective discomfort. Calf soft nontender to palpation. Less than 2-second capillary refill. Normal sensation. Neurovascular intact. Results & Data Results & Data Laboratory Results . Diagnostic Findings . PG Care Time/CCT Total # of Minutes Spent Total Time Spent with Patient: Total time spent is greater than 50% in coordination of care (as documented) at patient's floor/unit and/or counseling patient: Coding Level of Care Code 84609 SUB INP/OBS CARE 2/35MIN Diagnoses Right knee DJD M17.11
[2023-05-06] MEDS: metOLazone 5 MG TABLET PO SCH (10:22)
[2023-05-06] MEDS: SERTRALINE HCL 100 MG TABLET PO SCH (10:23)
[2023-05-06] MEDS: GABAPENTIN 600 MG TAB PO SCH ×3 (10:23→21:31)
[2023-05-06] MEDS: BUMETANIDE 2 MG in SYRINGE 0 ML IV SCH ×2 (10:24→18:47)
[2023-05-06] MEDS: FLUTICASONE FUROATE 100MCG 14 PUFFS/INHALER INH SCH (10:25)
[2023-05-06] MEDS: METHADONE ORAL SOLN 2 MG/ML PO SCH (10:34)
[2023-05-06] MEDS: [UNRECOGNIZED DRUG - OTHER] SCH (10:59)
[2023-05-06] MEDS: POTASSIUM CHLORIDE CRTAB 20 MEQ TABCR PO SCH ×2 (11:43→21:31)
--- NOTE | 2023-05-06 12:07 | Hospitalist Progress Note ---
Date of Service May 06, 2023 Assessment & Plan (1) (HFpEF) heart failure with preserved ejection fraction: Plan: Acute on chronic heart failure with preserved ejection fraction -Patient is making good urine, states shortness of breath is much improved We will continue IV Bumex twice daily, strict ins and outs, target net 2 L negative per day Previous dry weight around 370 pounds, [id number] 186.2 kg on admission, she has about 18 kg to lose, Last saw heart failure clinic 03/10. BNP has been negative with heart failure, this was suspected to be artificially low due to severe obesity -Patient claims she is compliant with her meds at home - SGLT deferred 2/ hx UTIs She is on Eliquis however this is a 2.5 mg twice daily dose and with an extremely elevated BMI at risk for subtherapeutic protection, will order DVT of the left lower extremity to R/oh DVT. 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 Methadone continued on admission -Depression/anxiety.Continue clonazepam nightly, patient weaning as outpatient -Mitral valve replacement: Bioprosthetic, noted -Anticoagulation: Pt is on eliquis 2.5mg BID for DVT ppx due to stasis. THi sis not required for her artificial valve, and she has no history of Afib or DVT/PE. Limited data that apixaban does have plasma reduction in obese patients that does not require dose adjustment; however pt is at the extreme end of BMI. (4) Sleep apnea: Plan: Sleep apnea Severe, with comorbid obesity hypoventilation syndrome CPAP nightly (5) Primary hypothyroidism: Plan: Hypothyroidism Continue Synthroid (6) Hepatitis C: Plan: Hepatitis C, early cirrhosis Patient with history of hep C positive test, and history of fatty liver with early cirrhosis. Patient is pending follow-up with infectious disease as an outpatient, she has intake labs scheduled for this weekend. No transaminitis, low suspicion for hepatic decompensation at this time Plan Patient insists she wants to go home, although currently she is a 2 person assist Goals of care: Patient has expressed desire to be DNR/DNI to outpatient providers and does not not want to return to the hospital, her mother does not agree with this and has had disagreement on how best to manage exacerbations as an outpatient. Was pending care planning with PCP/palliative care as outpatient. I did discuss this with patient and her mother at bedside. She reports that at this time she would be interested in assistive palliative measures to help manage for chronic discomfort and comorbidities but is not interested in any type of hospice or comfort measure oriented planning. Her and her mother's goal are currently to extend her life as much as possible with any and all available treatments. Neelima reports that she has expressed a desire in the past to be DNR/DNI and avoid hospitalization; however at this time agrees with full code measures. DVT PPx: eliquis Diet: HH/1200cc fluid restriction CODE: Full Dispo: PCU Admission and Anticipated Discharge Date Admission Date: May 01, 2023 Subjective Patient seen and examined today, states shortness of breath is much better and also leg swelling, wants to go home Review of Systems Review of Systems: All systems reviewed are negative, apart from the ones contained in the history. Physical Exam Physical Exam: The patient is awake, alert and oriented 3, well developed and well nourished, normocephalic and atraumatic, lying in bed and in no acute distress. HEENT--PERRL, EOMI, mucous membranes and oropharynx mildly dry Neck--supple. No JVD. No bruits. Thyroid normal, trachea midline, no adenopathy. Heart--normal S1 and S2. No murmurs, rubs or gallops. Lungs--clear bilaterally, no respiratory distress, no accessory muscle use. Abdomen--normal bowel sounds and soft. Mild epigastric and left sided abdominal pain Extremities--no cyanosis or clubbing. No edema. Dermatologic--normal skin turgor, normal color, no abnormal lymph nodes, no rash. Neurologic--cranial nerves II through XII grossly intact. Rheumatologic--normal range of motion. Psychiatric--normal affect. Results & Data Results & Data Vital Signs (Past 12 Hours) Vital Signs Temp Pulse Pulse Resp BP Pulse Ox O2 Del Method 05/06/23 11:17 97.3 F L 80 19 112/66 96 Nasal Cannula 05/06/23 09:00 78 05/06/23 07:52 97.5 F L 72 20 100/66 96 Nasal Cannula 05/06/23 03:09 97.7 F 70 20 119/69 96 Nasal Cannula O2 Flow Rate 05/06/23 11:17 1 05/06/23 09:00 05/06/23 07:52 1 05/06/23 03:09 1 PG Care Time/CCT Total # of Minutes Spent Total Time Spent with Patient: Total time spent is greater than 50% in coordination of care (as documented) at patient's floor/unit and/or counseling patient: Coding Level of Care Code 76612 SUB INP/OBS CARE 2/35MIN Diagnoses (HFpEF) heart failure with preserved ejection fraction I50.30 Knee arthropathy M17.10 Chronic right arterial ischemic stroke, MCA (middle cerebral artery) I69.30 Sleep apnea G47.30 Primary hypothyroidism E03.9 Hepatitis C B19.20 Time Spent (min) 35
[2023-05-06] MEDS: POLYETHYLENE (MIRALAX) 17 GM PACK PO SCH (18:48)
[2023-05-06] MEDS: APIXABAN 2.5 MG TAB PO SCH (21:33)
[2023-05-06] MEDS: MELATONIN 3 MG TAB PO SCH (21:36)
[2023-05-06] MEDS: traZODone HCL 50 MG TAB PO SCH (21:36)
[2023-05-06] MEDS: clonazePAM 0.5 MG TAB PO SCH (21:36)
[2023-05-07] MEDS ORDERED: LORazepam 3 MG in SYRINGE 1.5 ML IV ONE (05:30)
[2023-05-07 06:43] LABS: BUN Creatinine Ratio 24.6 (10-20); Blood Urea Nitrogen 28 mg/dl (6-23); Calcium 10.1 mg/dl (8.6-10.3); Carbon Dioxide 40 mmol/L (21-32); Chloride 86 mmol/L (98-107); Creatinine Clr Calc Pharmacy 119.9 ml/min; Est GFR (African American) 71.6 ml/min; Est GFR (Non-African American) 61.8 ml/min; Glucose 99 mg/dl (70-99(Fasting))
[2023-05-07] MEDS: metOLazone 5 MG TABLET PO SCH (10:19)
[2023-05-07] MEDS: BUMETANIDE 2 MG in SYRINGE 0 ML IV SCH ×2 (10:19→17:32)
[2023-05-07] MEDS: METHADONE ORAL SOLN 2 MG/ML PO SCH (10:19)
[2023-05-07] MEDS: FLUTICASONE FUROATE 100MCG 14 PUFFS/INHALER INH SCH (10:20)
[2023-05-07] MEDS: GABAPENTIN 600 MG TAB PO SCH ×3 (10:20→21:03)
[2023-05-07] MEDS: APIXABAN 2.5 MG TAB PO SCH ×2 (10:21→21:03)
[2023-05-07] MEDS: [UNRECOGNIZED DRUG - OTHER] SCH (10:21)
[2023-05-07] MEDS: METOPROLOL TARTRATE 25 MG TAB PO SCH ×2 (10:22→21:02)
[2023-05-07] MEDS: POLYETHYLENE (MIRALAX) 17 GM PACK PO SCH (10:22)
[2023-05-07] MEDS: POTASSIUM CHLORIDE CRTAB 20 MEQ TABCR PO SCH ×2 (10:23→21:02)
[2023-05-07] MEDS: SERTRALINE HCL 100 MG TABLET PO SCH (10:23)
[2023-05-07] MEDS ORDERED: POTASSIUM CHLORIDE CRTAB 20 MEQ TABCR PO STA (11:56)
--- NOTE | 2023-05-07 12:10 | Hospitalist Progress Note ---
Date of Service May 07, 2023 Assessment & Plan (1) (HFpEF) heart failure with preserved ejection fraction: Plan: Acute on chronic heart failure with preserved ejection fraction -Patient is making good urine, states shortness of breath is much improved We will continue IV Bumex twice daily, strict ins and outs, target net 2 L negative per day Previous dry weight around 370 pounds, [id number] 186.2 kg on admission, she has about 18 kg to lose, Last saw heart failure clinic 03/10. BNP has been negative with heart failure, this was suspected to be artificially low due to severe obesity -Patient claims she is compliant with her meds at home - SGLT deferred 2/ hx UTIs She is on Eliquis however this is a 2.5 mg twice daily dose and with an extremely elevated BMI at risk for subtherapeutic protection, will order DVT of the left lower extremity to R/oh DVT. 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 Methadone continued on admission -Depression/anxiety.Continue clonazepam nightly, patient weaning as outpatient -Mitral valve replacement: Bioprosthetic, noted -Anticoagulation: Pt is on eliquis 2.5mg BID for DVT ppx due to stasis. THi sis not required for her artificial valve, and she has no history of Afib or DVT/PE. Limited data that apixaban does have plasma reduction in obese patients that does not require dose adjustment; however pt is at the extreme end of BMI. (4) Sleep apnea: Plan: Sleep apnea Severe, with comorbid obesity hypoventilation syndrome CPAP nightly (5) Primary hypothyroidism: Plan: Hypothyroidism Continue Synthroid (6) Hepatitis C: Plan: Hepatitis C, early cirrhosis Patient with history of hep C positive test, and history of fatty liver with early cirrhosis. Patient is pending follow-up with infectious disease as an outpatient, she has intake labs scheduled for this weekend. No transaminitis, low suspicion for hepatic decompensation at this time (7) Physical deconditioning: Plan: patient is a 2 person assist has not gotten out of bed Worsened by her left sided weakness from her stroke would benefit from rehab, but patient insists on going home Plan Patient insists she wants to go home, although currently she is a 2 person assist Goals of care: Patient has expressed desire to be DNR/DNI to outpatient providers and does not not want to return to the hospital, her mother does not agree with this and has had disagreement on how best to manage exacerbations as an outpatient. Was pending care planning with PCP/palliative care as outpatient. I did discuss this with patient and her mother at bedside. She reports that at this time she would be interested in assistive palliative measures to help manage for chronic discomfort and comorbidities but is not interested in any type of hospice or comfort measure oriented planning. Her and her mother's goal are currently to extend her life as much as possible with any and all available treatments. Neelima reports that she has expressed a desire in the past to be DNR/DNI and avoid hospitalization; however at this time agrees with full code measures. DVT PPx: eliquis Diet: HH/1200cc fluid restriction CODE: Full Dispo: PCU Admission and Anticipated Discharge Date Admission Date: May 01, 2023 Subjective Patient seen and examined today, states shortness of breath is much better and also leg swelling, wants to go home, although has not gotten out of bed Review of Systems Review of Systems: All systems reviewed are negative, apart from the ones contained in the history. Physical Exam Physical Exam: The patient is awake, alert and oriented 3, well developed and well nourished, normocephalic and atraumatic, lying in bed and in no acute distress. HEENT--PERRL, EOMI, mucous membranes and oropharynx mildly dry Neck--supple. No JVD. No bruits. Thyroid normal, trachea midline, no adenopa thy. Heart--normal S1 and S2. No murmurs, rubs or gallops. Lungs--clear bilaterally, no respiratory distress, no accessory muscle use. Abdomen--normal bowel sounds and soft. Mild epigastric and left sided abdominal pain Extremities--no cyanosis or clubbing. No edema. Dermatologic--normal skin turgor, normal color, no abnormal lymph nodes, no rash. Neurologic--cranial nerves II through XII grossly intact. Rheumatologic--normal range of motion. Psychiatric--normal affect. Results & Data Results & Data Vital Signs (Past 12 Hours) Vital Signs Temp Pulse Pulse Resp BP Pulse Ox O2 Del Method 05/07/23 08:17 73 05/07/23 03:06 99.3 F 72 18 106/63 95 Nasal Cannula O2 Flow Rate 05/07/23 08:17 05/07/23 03:06 2 PG Care Time/CCT Total # of Minutes Spent Total Time Spent with Patient: Total time spent is greater than 50% in coordination of care (as documented) at patient's floor/unit and/or counseling patient: Coding Level of Care Code 21332 SUB INP/OBS CARE 2/35MIN Diagnoses (HFpEF) heart failure with preserved ejection fraction I50.30 Knee arthropathy M17.10 Chronic right arterial ischemic stroke, MCA (middle cerebral artery) I69.30 Sleep apnea G47.30 Primary hypothyroidism E03.9 Hepatitis C B19.20 Physical deconditioning R53.81 Time Spent (min) 35
[2023-05-07] MEDS: MELATONIN 3 MG TAB PO SCH (21:02)
[2023-05-07] MEDS: traZODone HCL 50 MG TAB PO SCH (21:02)
[2023-05-07] MEDS: clonazePAM 0.5 MG TAB PO SCH (21:02)
[2023-05-08 06:22] LABS: BUN Creatinine Ratio 27.7 (10-20); Calcium 9.9 mg/dl (8.6-10.3); Creatinine Clr Calc Pharmacy 121.7 ml/min; Est GFR (African American) 73.2 ml/min; Est GFR (Non-African American) 63.1 ml/min; Potassium 2.9 mmol/L (3.5-5.1)
[2023-05-08] MEDS ORDERED: POTASSIUM CHLORIDE CRTAB 20 MEQ TABCR PO STA (07:36)
[2023-05-08] MEDS: FLUTICASONE FUROATE 100MCG 14 PUFFS/INHALER INH SCH (08:51)
[2023-05-08] MEDS: metOLazone 5 MG TABLET PO SCH (08:52)
[2023-05-08] MEDS: SERTRALINE HCL 100 MG TABLET PO SCH (08:52)
[2023-05-08] MEDS: GABAPENTIN 600 MG TAB PO SCH ×3 (08:52→20:55)
[2023-05-08] MEDS: POTASSIUM CHLORIDE CRTAB 20 MEQ TABCR PO SCH ×2 (08:52→20:54)
[2023-05-08] MEDS: APIXABAN 2.5 MG TAB PO SCH ×2 (08:52→20:54)
[2023-05-08] MEDS: BUMETANIDE 2 MG in SYRINGE 0 ML IV SCH (08:53)
[2023-05-08] MEDS: METHADONE ORAL SOLN 2 MG/ML PO SCH (10:26)
[2023-05-08] MEDS: [UNRECOGNIZED DRUG - OTHER] SCH (10:27)
[2023-05-08] MEDS: METOPROLOL TARTRATE 25 MG TAB PO SCH ×2 (10:27→20:56)
[2023-05-08] MEDS: POLYETHYLENE (MIRALAX) 17 GM PACK PO SCH (10:27)
--- NOTE | 2023-05-08 11:51 | Hospitalist Progress Note ---
Date of Service May 08, 2023 Assessment & Plan (1) (HFpEF) heart failure with preserved ejection fraction: Plan: Acute on chronic heart failure with preserved ejection fraction -Patient is making good urine, states shortness of breath is much improved We will continue IV Bumex twice daily, strict ins and outs, target net 2 L negative per day Previous dry weight around 370 pounds, [id number]. 186.2 kg on admission, she has about 18 kg to lose, Last saw heart failure clinic 03/10. 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 Methadone continued on admission -Depression/anxiety.Continue clonazepam nightly, patient weaning as outpatient -Mitral valve replacement: Bioprosthetic, noted -Anticoagulation: Pt is on eliquis 2.5mg BID for DVT ppx due to stasis. THi sis not required for her artificial valve, and she has no history of Afib or DVT/PE. Limited data that apixaban does have plasma reduction in obese patients that does not require dose adjustment; however pt is at the extreme end of BMI. (4) Sleep apnea: Plan: Sleep apnea Severe, with comorbid obesity hypoventilation syndrome CPAP nightly (5) Primary hypothyroidism: Plan: Hypothyroidism Continue Synthroid (6) Hepatitis C: Plan: Hepatitis C, early cirrhosis Patient with history of hep C positive test, and history of fatty liver with early cirrhosis. Patient is pending follow-up with infectious disease as an outpatient, she has intake labs scheduled for this weekend. No transaminitis, low suspicion for hepatic decompensation at this time (7) Physical deconditioning: Plan: patient is a 2 person assist has not gotten out of bed Worsened by her left sided weakness from her stroke would benefit from rehab, patient now agreeable to a few days of rehab PT/OT Plan Patient insists she wants to go home, although currently she is a 2 person assist Goals of care: Patient has expressed desire to be DNR/DNI to outpatient providers and does not not want to return to the hospital, her mother does not agree with this and has had disagreement on how best to manage exacerbations as an outpatient. Was pending care planning with PCP/palliative care as outpatient. I did discuss this with patient and her mother at bedside. She reports that at this time she would be interested in assistive palliative measures to help manage for chronic discomfort and comorbidities but is not interested in any type of hospice or comfort measure oriented planning. Her and her mother's goal are currently to extend her life as much as possible with any and all available treatments. Neelima reports that she has expressed a desire in the past to be DNR/DNI and avoid hospitalization; however at this time agrees with full code measures. DVT PPx: eliquis Diet: HH/1200cc fluid restriction CODE: Full Dispo: PCU Admission and Anticipated Discharge Date Admission Date: May 01, 2023 Subjective Patient seen and examined today, states shortness of breath is much better and a lso leg swelling, initially wanted to go home, but now agreeable to a few days of rehab, still not participating in PT, has not gotten out of bed Review of Systems Review of Systems: All systems reviewed are negative, apart from the ones contained in the history. Physical Exam Physical Exam: The patient is awake, alert and oriented 3, well developed and well nourished, normocephalic and atraumatic, lying in bed and in no acute distress. HEENT--PERRL, EOMI, mucous membranes and oropharynx mildly dry Neck--supple. No JVD. No bruits. Thyroid normal, trachea midline, no adenopathy. Heart--normal S1 and S2. No murmurs, rubs or gallops. Lungs--clear bilaterally, no respiratory distress, no accessory muscle use. Abdomen--normal bowel sounds and soft. Mild epigastric and left sided abdominal pain Extremities--no cyanosis or clubbing. No edema. Dermatologic--normal skin turgor, normal color, no abnormal lymph nodes, no rash. Neurologic--cranial nerves II through XII grossly intact. Rheumatologic--normal range of motion. Psychiatric--normal affect. Results & Data Results & Data Vital Signs (Past 12 Hours) Vital Signs Temp Pulse Pulse Resp BP Pulse Ox O2 Del Method 05/08/23 07:59 98.2 F 77 18 90/66 L 96 Nasal Cannula 05/08/23 03:55 98.1 F 66 16 95/64 L 94 Nasal Cannula 05/08/23 00:07 80 O2 Flow Rate 05/08/23 07:59 2 05/08/23 03:55 2 05/08/23 00:07 PG Care Time/CCT Total # of Minutes Spent Total Time Spent with Patient: Total time spent is greater than 50% in coordination of care (as documented) at patient's floor/unit and/or counseling patient: Coding Level of Care Code 81685 SUB INP/OBS CARE 2/35MIN Diagnoses (HFpEF) heart failure with preserved ejection fraction I50.30 Knee arthropathy M17.10 Chronic right arterial ischemic stroke, MCA (middle cerebral artery) I69.30 Sleep apnea G47.30 Primary hypothyroidism E03.9 Hepatitis C B19.20 Physical deconditioning R53.81 Time Spent (min) 35
--- NOTE | 2023-05-08 16:17 | CT Scan Report ---
CT abd pelvis wo con CLINICAL HISTORY: follow up for splenic lesion TECHNIQUE: Helical axial images of the abdomen and pelvis were obtained. Automated dose lowering tech niques and/or adjustment according to patient size were utilized for this exam. This exam was perfor med without intravenous contrast. CT DOSE: 2077.3 mGy.cm COMPARISON: Comparison is made to CT abdomen pelvis 11/20/2022 FINDINGS: Lower chest: Bibasilar atelectasis versus scarring is seen. Mitral annular calcification is seen. Liver: Hepatic steatosis is noted. Gallbladder and biliary tree: Cholelithiasis is seen without evidence of cholecystitis. No intra- or extrahepatic biliary ductal dilation. Pancreas: Unremarkable, no focal lesions. Spleen: Splenic cystic lesion now measures 61 mm in diameter compared to 98 mm in the prior exam. Adrenals: Unremarkable. Kidneys and ureters: Unremarkable. Bladder: Monique catheter is seen. Reproductive organs: Unremarkable. Bowel: The appendix is normal. Lymph nodes Retroperitoneal: Subcentimeter lymph nodes are noted. Pelvic: Unremarkable. Mesenteric: Unremarkable. Peritoneum: Normal. Vessels: Unremarkable. Abdominal wall: A fat-containing umbilical hernia is seen. Bones: Minimal degenerative changes are seen. IMPRESSION: Interval decrease in size of splenic cystic lesion which likely represents a benign lesion such as a cyst, less likely abscess. ACT 112: Negative or not required by law. Electronically signed by: Hiro Santoyo M.D. 05/08/2023 4:15 PM
[2023-05-08] MEDS: traZODone HCL 50 MG TAB PO SCH (21:00)
[2023-05-08] MEDS: clonazePAM 0.5 MG TAB PO SCH (21:00)
[2023-05-08] MEDS: MELATONIN 3 MG TAB PO SCH (21:01)
[2023-05-09] MEDS: BUMETANIDE 2 MG in SYRINGE 0 ML IV SCH ×3 (07:26→17:03)
[2023-05-09 09:38] LABS: Hematocrit (blood only) 36.3 % (37.0-47.0); Hemoglobin 11.1 g/dl (12.0-16.0); Mean Corpuscular Hemoglobin 23.3 pg (25.0-34.0); Mean Corpuscular Hgb Conc 30.6 g/dL (32.0-36.0); Mean Corpuscular Volume 76.3 fL (80.0-100.0); Mean Platelet Volume 9.1 fL (9.4-12.4); Platelet Count 435 K/uL (130-400); RDW Standard Deviation 44.6 fL (36.4-46.3); Red Blood Count 4.76 M/uL (4.20-5.40); White Blood Count 7.51 K/ul (4.8-10.8)
[2023-05-09 09:57] LABS: Albumin Level 4.2 gm/dl (3.4-5.0); Bilirubin,Total 0.3 mg/dl (0.2-1.0); Calcium 9.8 mg/dl (8.6-10.3); Creatinine Clr Calc Pharmacy 123.9 ml/min; Est GFR (African American) 77.3 ml/min; Est GFR (Non-African American) 66.7 ml/min; Total Protein 8.9 gm/dl (6.0-8.3)
[2023-05-09] MEDS: METHADONE ORAL SOLN 2 MG/ML PO SCH (10:04)
[2023-05-09] MEDS: SERTRALINE HCL 100 MG TABLET PO SCH (10:05)
[2023-05-09] MEDS: POTASSIUM CHLORIDE CRTAB 20 MEQ TABCR PO SCH ×2 (10:05→20:32)
[2023-05-09] MEDS: metOLazone 5 MG TABLET PO SCH (10:05)
[2023-05-09] MEDS: APIXABAN 2.5 MG TAB PO SCH ×2 (10:06→20:32)
[2023-05-09] MEDS: GABAPENTIN 600 MG TAB PO SCH ×3 (10:06→20:31)
[2023-05-09] MEDS: METOPROLOL TARTRATE 25 MG TAB PO SCH ×2 (10:07→20:32)
[2023-05-09] MEDS: [UNRECOGNIZED DRUG - OTHER] SCH (10:08)
[2023-05-09] MEDS: FLUTICASONE FUROATE 100MCG 14 PUFFS/INHALER INH SCH (10:08)
[2023-05-09] MEDS ORDERED: POTASSIUM CHLORIDE CRTAB 20 MEQ TABCR PO ONE (13:00)
[2023-05-09] MEDS: POLYETHYLENE (MIRALAX) 17 GM PACK PO SCH (13:21)
[2023-05-09] MEDS: MELATONIN 3 MG TAB PO SCH (20:33)
[2023-05-09] MEDS: clonazePAM 0.5 MG TAB PO SCH (20:33)
[2023-05-09] MEDS: traZODone HCL 50 MG TAB PO SCH (20:33)
--- NOTE | 2023-05-09 21:32 | Hospitalist Progress Note ---
Date of Service May 09, 2023 Assessment & Plan (1) (HFpEF) heart failure with preserved ejection fraction: Plan: Acute on chronic heart failure with preserved ejection fraction -Patient is making good urine, states shortness of breath is much improved We will continue IV Bumex twice daily, strict ins and outs, target net 2 L negative per day Previous dry weight around 370 pounds, [id number] 186.2 kg on admission, she has about 18 kg to lose, Last saw heart failure clinic 03/10. BNP has been negative with heart failure, this was suspected to be artificially low due to severe obesity -Patient claims she is compliant with her meds at home - SGLT deferred 2/2 hx UTIs She is on Eliquis 2.5mg BId, which may be sub optimal given her Obesity Continue above diuretics. Continue to moniotr renal function. Patient remains 1-2 liters negative each day. 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 Methadone continued on admission -Depression/anxiety.Continue clonazepam nightly, patient weaning as outpatient -Mitral valve replacement: Bioprosthetic, noted -Anticoagulation: Pt is on eliquis 2.5mg BID for DVT ppx due to stasis. THi sis not required for her artificial valve, and she has no history of Afib or DVT/PE. Limited data that apixaban does have plasma reduction in obese patients that does not require dose adjustment; however pt is at the extreme end of BMI. (4) Sleep apnea: Plan: Sleep apnea Severe, with comorbid obesity hypoventilation syndrome CPAP nightly (5) Primary hypothyroidism: Plan: Hypothyroidism Continue Synthroid (6) Hepatitis C: Plan: Hepatitis C, early cirrhosis Patient with history of hep C positive test, and history of fatty liver with early cirrhosis. Patient is pending follow-up with infectious disease as an outpatient, she has intake labs scheduled for this weekend. No transaminitis, low suspicion for hepatic decompensation at this time (7) Physical deconditioning: Plan: patient is a 2 person assist has not gotten out of bed Worsened by her left sided weakness from her stroke would benefit from rehab, patient now agreeable to a few days of rehab PT/OT Plan Patient insists she wants to go home, although currently she is a 2 person assist Goals of care: Patient has expressed desire to be DNR/DNI to outpatient providers and does not not want to return to the hospital, her mother does not agree with this and has had disagreement on how best to manage exacerbations as an outpatient. Was pending care planning with PCP/palliative care as outpatient. I did discuss this with patient and her mother at bedside. She reports that at this time she would be interested in assistive palliative measures to help manage for chronic discomfort and comorbidities but is not interested in any type of hospice or comfort measure oriented planning. Her and her mother's goal are currently to extend her life as much as possible with any and all available treatments. Neelima reports that she has expressed a desire in the past to be DNR/DNI and avoid hospitalization; however at this time agrees with full code measures. DVT PPx: eliquis Diet: HH/1200cc fluid restriction CODE: Full Dispo: PCU Admission and Anticipated Discharge Date Admission Date: May 01, 2023 Subjective Patient reports breathing better. Review of Systems Review of Systems: All systems reviewed & are unremarkable except as noted in HPI & below Physical Exam Physical Exam: The patient is awake, alert and oriented 3, well developed and well nourished, normocephalic and atraumatic, lying in bed and in no acute distress. HEENT--PERRL, EOMI Neck--supple. No JVD. No bruits. Thyroid normal, trachea midline, no adenopathy. Heart--normal S1 and S2. No murmurs, rubs or gallops. Lungs--clear bilaterally, no respiratory distress, no accessory muscle use. Abdomen--normal bowel sounds and soft. Mild epigastric and left sided abdominal pain Extremities--no cyanosis or clubbing. No edema. Dermatologic--normal skin turgor, normal color, no abnormal lymph nodes, no rash. Neurologic--cranial nerves II through XII grossly intact. Rheumatologic--normal range of motion. Psychiatric--normal affect. Results & Data Results & Data Vital Signs (Past 12 Hours) Vital Signs Temp Pulse Resp BP Pulse Ox O2 Del Method O2 Flow Rate 05/09/23 20:51 Room Air 05/09/23 19:42 36.6 C 74 16 93/68 L 96 Nasal Cannula 2.0 05/09/23 15:46 36.7 C 70 18 120/71 94 Room Air 05/09/23 11:23 37.0 C 67 19 100/59 L 97 Nasal Cannula 2 PG Care Time/CCT Total # of Minutes Spent Total Time Spent with Patient: Total time spent is greater than 50% in coordination of care (as documented) at patient's floor/unit and/or counseling patient: Coding Level of Care Code 75398 SUB INP/OBS CARE 2/35MIN Diagnoses (HFpEF) heart failure with preserved ejection fraction I50.30 Knee arthropathy M17.10 Chronic right arterial ischemic stroke, MCA (middle cerebral artery) I69.30 Sleep apnea G47.30 Primary hypothyroidism E03.9 Hepatitis C B19.20 Physical deconditioning R53.81
[2023-05-10 06:23] LABS: Hemoglobin 11.3 g/dl (12.0-16.0); Mean Corpuscular Hemoglobin 23.8 pg (25.0-34.0); Mean Corpuscular Hgb Conc 30.5 g/dL (32.0-36.0); Mean Corpuscular Volume 77.9 fL (80.0-100.0); Mean Platelet Volume 8.8 fL (9.4-12.4); Platelet Count 433 K/uL (130-400); RDW Standard Deviation 45.3 fL (36.4-46.3); Red Blood Count 4.75 M/uL (4.20-5.40); White Blood Count 9.17 K/ul (4.8-10.8)
[2023-05-10 07:27] LABS: Calcium 9.8 mg/dl (8.6-10.3); Potassium 2.9 mmol/L (3.5-5.1)
[2023-05-10 07:32] LABS: BUN Creatinine Ratio 30.3 (10-20); Creatinine Clr Calc Pharmacy 134.4 ml/min; Est GFR (Non-African American) 73.3 ml/min
[2023-05-10] MEDS: BUMETANIDE 2 MG in SYRINGE 0 ML IV SCH ×2 (09:54→17:32)
[2023-05-10] MEDS: FLUTICASONE FUROATE 100MCG 14 PUFFS/INHALER INH SCH (09:54)
[2023-05-10] MEDS: APIXABAN 2.5 MG TAB PO SCH ×2 (09:54→22:04)
[2023-05-10] MEDS: METOPROLOL TARTRATE 25 MG TAB PO SCH ×2 (09:55→22:03)
[2023-05-10] MEDS: POTASSIUM CHLORIDE CRTAB 20 MEQ TABCR PO SCH ×2 (09:55→22:03)
[2023-05-10] MEDS: SERTRALINE HCL 100 MG TABLET PO SCH (09:55)
[2023-05-10] MEDS: METHADONE ORAL SOLN 2 MG/ML PO SCH (09:56)
[2023-05-10] MEDS: GABAPENTIN 600 MG TAB PO SCH ×3 (09:56→22:04)
[2023-05-10] MEDS: ACETAMINOPHEN 325 MG TAB PO PRN ×2 (09:57→15:37)
[2023-05-10] MEDS: metOLazone 5 MG TABLET PO SCH (09:57)
[2023-05-10] MEDS: [UNRECOGNIZED DRUG - OTHER] SCH (09:58)
[2023-05-10] MEDS: POLYETHYLENE (MIRALAX) 17 GM PACK PO SCH (09:59)
[2023-05-10] MEDS ORDERED: POTASSIUM CHLORIDE CRTAB 20 MEQ TABCR PO STA (14:59)
[2023-05-10] MEDS ORDERED: diphenhydrAMINE Capsule 25 MG CAP PO ONE (17:31)
[2023-05-10] MEDS: MELATONIN 3 MG TAB PO SCH (22:03)
[2023-05-10] MEDS: clonazePAM 0.5 MG TAB PO SCH (22:03)
[2023-05-10] MEDS: traZODone HCL 50 MG TAB PO SCH (22:04)
--- NOTE | 2023-05-10 22:39 | Hospitalist Progress Note ---
Date of Service May 10, 2023 Assessment & Plan (1) (HFpEF) heart failure with preserved ejection fraction: Plan: Acute on chronic heart failure with preserved ejection fraction -Patient is making good urine, states shortness of breath is much improved We will continue IV Bumex twice daily, strict ins and outs, target net 2 L negative per day Previous dry weight around 370 pounds, [id number]. 186.2 kg on admission, she has about 18 kg to lose, Last saw heart failure clinic 03/10. BNP has been negative with heart failure, this was suspected to be artificially low due to severe obesity -Patient claims she is compliant with her meds at home - SGLT deferred 2/ hx UTIs She is on Eliquis 2.5mg BId, which may be sub optimal given her Obesity Continue above diuretics. Continue to moniotr renal function. Patient remains 1-2 liters negative each day as of 05/10 renal function is stable. 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 Methadone continued on admission -Depression/anxiety.Continue clonazepam nightly, patient weaning as outpatient -Mitral valve replacement: Bioprosthetic, noted -Anticoagulation: Pt is on eliquis 2.5mg BID for DVT ppx due to stasis. THi sis not required for her artificial valve, and she has no history of Afib or DVT/PE. Limited data that apixaban does have plasma reduction in obese patients that does not require dose adjustment; however pt is at the extreme end of BMI. (4) Sleep apnea: Plan: Sleep apnea Severe, with comorbid obesity hypoventilation syndrome CPAP nightly (5) Primary hypothyroidism: Plan: Hypothyroidism Continue Synthroid (6) Hepatitis C: Plan: Hepatitis C, early cirrhosis Patient with history of hep C positive test, and history of fatty liver with early cirrhosis. Patient is pending follow-up with infectious disease as an outpatient, she has intake labs scheduled for this weekend. No transaminitis, low suspicion for hepatic decompensation at this time (7) Physical deconditioning: Plan: patient is a 2 person assist has not gotten out of bed Worsened by her left sided weakness from her stroke would benefit from rehab, patient now agreeable to a few days of rehab PT/OT Plan Patient insists she wants to go home, although currently she is a 2 person assist Goals of care: Patient has expressed desire to be DNR/DNI to outpatient providers and does not not want to return to the hospital, her mother does not agree with this and has had disagreement on how best to manage exacerbations as an outpatient. Was pending care planning with PCP/palliative care as outpatient. I did discuss this with patient and her mother at bedside. She reports that at this time she would be interested in assistive palliative measures to help manage for chronic discomfort and comorbidities but is not interested in any type of hospice or comfort measure oriented planning. Her and her mother's goal are currently to extend her life as much as possible with any and all available treatments. Neelima reports that she has expressed a desire in the past to be DNR/DNI and avoid hospitalization; however at this time agrees with full code measures. DVT PPx: eliquis Diet: HH/1200cc fluid restriction CODE: Full Dispo: PCU Admission and Anticipated Discharge Date Admission Date: May 01, 2023 Subjective 37 yo female reports no new symptoms. Review of Systems Review of Systems: All systems reviewed & are unremarkable except as noted in HPI & below Physical Exam Physical Exam: The patient is awake, alert and oriented 3, well developed and well nourished, normocephalic and atraumatic, lying in bed and in no acute distress. HEENT--PERRL, EOMI Neck--supple. No JVD. No bruits. Thyroid normal, trachea midline, no adenopathy. Heart--normal S1 and S2. No murmurs, rubs or gallops. Lungs--clear bilaterally, no respiratory distress, no accessory muscle use. Abdomen--normal bowel sounds and soft. Mild epigastric and left sided abdominal pain Extremities--no cyanosis or clubbing. No edema. Results & Data Results & Data Vital Signs (Past 12 Hours) Vital Signs Temp Pulse Resp BP Pulse Ox O2 Del Method O2 Flow Rate 05/10/23 19:43 36.5 C 76 20 129/74 95 Nasal Cannula 2 05/10/23 18:39 36.5 C 76 17 126/69 91 Room Air 05/10/23 15:27 37.0 C 74 18 103/64 93 Nasal Cannula 2.0 05/10/23 11:55 37.0 C 76 19 114/65 95 Nasal Cannula 2.0 PG Care Time/CCT Total # of Minutes Spent Total Time Spent with Patient: Total time spent is greater than 50% in coordination of care (as documented) at patient's floor/unit and/or counseling patient: Coding Level of Care Code 28676 SUB INP/OBS CARE 235MIN Diagnoses (HFpEF) heart failure with preserved ejection fraction I50.30 Knee arthropathy M17.10 Chronic right arterial ischemic stroke, MCA (middle cerebral artery) I69.30 Sleep apnea G47.30 Primary hypothyroidism E03.9 Hepatitis C B19.20 Physical deconditioning R53.81
[2023-05-11 05:53] LABS: BUN Creatinine Ratio 30.4 (10-20); Calcium 10.4 mg/dl (8.6-10.3); Creatinine Clr Calc Pharmacy 130.6 ml/min; Est GFR (Non-African American) 70.7 ml/min; Magnesium 2.6 mg/dl (1.7-2.4); Potassium 4.4 mmol/L (3.5-5.1)
[2023-05-11 06:01] LABS: Hematocrit (blood only) 40.1 % (37.0-47.0); Hemoglobin 12.7 g/dl (12.0-16.0); Mean Corpuscular Hemoglobin 23.9 pg (25.0-34.0); Mean Corpuscular Hgb Conc 31.7 g/dL (32.0-36.0); Mean Corpuscular Volume 75.5 fL (80.0-100.0); Mean Platelet Volume 9.5 fL (9.4-12.4); Nucleated RBC # (auto) 0.16 K/uL (0.00-0.12); Nucleated RBC % (auto) 1.3 %; Platelet Count 494 K/uL (130-400); RDW Coefficient of Variation 16.2 % (11.5-14.5); Red Blood Count 5.31 M/uL (4.20-5.40)
[2023-05-11] MEDS: POTASSIUM CHLORIDE CRTAB 20 MEQ TABCR PO SCH ×2 (09:36→20:02)
[2023-05-11] MEDS: metOLazone 5 MG TABLET PO SCH (09:36)
[2023-05-11] MEDS: METOPROLOL TARTRATE 25 MG TAB PO SCH ×2 (09:37→19:54)
[2023-05-11] MEDS: SERTRALINE HCL 100 MG TABLET PO SCH (09:37)
[2023-05-11] MEDS: BUMETANIDE 2 MG in SYRINGE 0 ML IV SCH ×2 (09:38→18:15)
[2023-05-11] MEDS: APIXABAN 2.5 MG TAB PO SCH ×2 (09:38→20:02)
[2023-05-11] MEDS: FLUTICASONE FUROATE 100MCG 14 PUFFS/INHALER INH SCH (09:38)
[2023-05-11] MEDS: GABAPENTIN 600 MG TAB PO SCH ×3 (09:38→20:03)
[2023-05-11] MEDS: POLYETHYLENE (MIRALAX) 17 GM PACK PO SCH (09:40)
[2023-05-11] MEDS: METHADONE ORAL SOLN 2 MG/ML PO SCH (09:49)
[2023-05-11] MEDS: [UNRECOGNIZED DRUG - OTHER] SCH (09:50)
--- NOTE | 2023-05-11 16:01 | Hospitalist Progress Note ---
Date of Service May 11, 2023 Assessment & Plan (1) (HFpEF) heart failure with preserved ejection fraction: Plan: Acute on chronic heart failure with preserved ejection fraction -Patient is making good urine, states shortness of breath is much improved We will continue IV Bumex twice daily, strict ins and outs, target net 2 L negative per day Previous dry weight around 370 pounds, [id number]. 186.2 kg on admission, she has about 18 kg to lose, Last saw heart failure clinic 03/10. BNP has been negative with heart failure, this was suspected to be artificially low due to severe obesity -Patient claims she is compliant with her meds at home - SGLT deferred 2/ hx UTIs She is on Eliquis 2.5mg BId, which may be sub optimal given her Obesity Continue above diuretics. Continue to moniotr renal function. Patient remains 1-2 liters negative each day as of 05/11 renal function is stable, but creat is trending upward, will decrease bumex. 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 Methadone continued on admission -Depression/anxiety.Continue clonazepam nightly, patient weaning as outpatient -Mitral valve replacement: Bioprosthetic, noted -Anticoagulation: Pt is on eliquis 2.5mg BID for DVT ppx due to stasis. THi sis not required for her artificial valve, and she has no history of Afib or DVT/PE. Limited data that apixaban does have plasma reduction in obese patients that does not require dose adjustment; however pt is at the extreme end of BMI. (4) Sleep apnea: Plan: Sleep apnea Severe, with comorbid obesity hypoventilation syndrome CPAP nightly (5) Primary hypothyroidism: Plan: Hypothyroidism Continue Synthroid (6) Hepatitis C: Plan: Hepatitis C, early cirrhosis Patient with history of hep C positive test, and history of fatty liver with early cirrhosis. Patient is pending follow-up with infectious disease as an outpatient, she has intake labs scheduled for this weekend. No transaminitis, low suspicion for hepatic decompensation at this time (7) Physical deconditioning: Plan: patient is a 2 person assist has not gotten out of bed Worsened by her left sided weakness from her stroke would benefit from rehab, patient now agreeable to a few days of rehab PT/OT Plan Patient insists she wants to go home, although currently she is a 2 person assist Goals of care: Patient has expressed desire to be DNR/DNI to outpatient providers and does not not want to return to the hospital, her mother does not agree with this and has had disagreement on how best to manage exacerbations as an outpatient. Was pending care planning with PCP/palliative care as outpatient. I did discuss this with patient and her mother at bedside. She reports that at this time she would be interested in assistive palliative measures to help manage for chronic discomfort and comorbidities but is not interested in any type of hospice or comfort measure oriented planning. Her and her mother's goal are currently to extend her life as much as possible with any and all available treatments. Neelima reports that she has expressed a desire in the past to be DNR/DNI and avoid hospitalization; however at this time agrees with full code measures. DVT PPx: eliquis Diet: HH/1200cc fluid restriction CODE: Full Dispo: PCU Admission and Anticipated Discharge Date Admission Date: May 01, 2023 Subjective Patient reports doing well. Review of Systems Review of Systems: All systems reviewed & are unremarkable except as noted in HPI & below Physical Exam Physical Exam: The patient is awake, alert and oriented 3, well developed and well nourished, normocephalic and atraumatic, lying in bed and in no acute distress. HEENT--PERRL, EOMI Neck--supple. No JVD. No bruits. Thyroid normal, trachea midline, no adenopathy. Heart--normal S1 and S2. No murmurs, rubs or gallops. Lungs--clear bilaterally, no respiratory distress, no accessory muscle use. Abdomen--normal bowel sounds and soft. Mild epigastric and left sided abdominal pain Extremities--no cyanosis or clubbing. No edema. No rash noted. Results & Data Results & Data Vital Signs (Past 12 Hours) Vital Signs Temp Pulse Pulse Resp BP Pulse Ox O2 Del Method 05/11/23 15:40 80 05/11/23 12:15 37 C 72 20 96/56 L 94 Nasal Cannula 05/11/23 08:00 Nasal Cannula 05/11/23 07:59 37 C 93 H 22 94/58 L 93 Room Air 05/11/23 07:56 75 O2 Flow Rate 05/11/23 15:40 05/11/23 12:15 2 05/11/23 08:00 2 05/11/23 07:59 05/11/23 07:56 PG Care Time/CCT Total # of Minutes Spent Total Time Spent with Patient: Total time spent is greater than 50% in coordination of care (as documented) at patient's floor/unit and/or counseling patient: Coding Level of Care Code 15515 SUB INP/OBS CARE 235MIN Diagnoses (HFpEF) heart failure with preserved ejection fraction I50.30 Knee arthropathy M17.10 Chronic right arterial ischemic stroke, MCA (middle cerebral artery) I69.30 Sleep apnea G47.30 Primary hypothyroidism E03.9 Hepatitis C B19.20 Physical deconditioning R53.81
[2023-05-11] MEDS: traZODone HCL 50 MG TAB PO SCH (20:02)
[2023-05-11] MEDS: ACETAMINOPHEN 325 MG TAB PO PRN (20:02)
[2023-05-11] MEDS: MELATONIN 3 MG TAB PO SCH (20:02)
[2023-05-11] MEDS: clonazePAM 0.5 MG TAB PO SCH (20:03)
[2023-05-12] MEDS: BUMETANIDE 2 MG in SYRINGE 0 ML IV SCH ×2 (08:47→20:18)
[2023-05-12] MEDS: POLYETHYLENE (MIRALAX) 17 GM PACK PO SCH (08:48)
[2023-05-12] MEDS: SERTRALINE HCL 100 MG TABLET PO SCH (09:46)
[2023-05-12] MEDS: GABAPENTIN 600 MG TAB PO SCH ×3 (09:46→20:18)
[2023-05-12] MEDS: METHADONE ORAL SOLN 2 MG/ML PO SCH (09:46)
[2023-05-12] MEDS: [UNRECOGNIZED DRUG - OTHER] SCH (09:47)
[2023-05-12] MEDS: FLUTICASONE FUROATE 100MCG 14 PUFFS/INHALER INH SCH (09:47)
[2023-05-12] MEDS: APIXABAN 2.5 MG TAB PO SCH ×2 (09:47→20:18)
[2023-05-12] MEDS: metOLazone 5 MG TABLET PO SCH (09:48)
[2023-05-12] MEDS: METOPROLOL TARTRATE 25 MG TAB PO SCH ×2 (09:49→20:18)
[2023-05-12] MEDS: POTASSIUM CHLORIDE CRTAB 20 MEQ TABCR PO SCH ×2 (09:56→20:24)
[2023-05-12 13:31] LABS: Basophils # (auto) 0.04 K/uL (0.00-0.20); Basophils % (auto) 0.4 %; Eosinophils # (auto) 0.16 K/uL (0.00-0.50); Eosinophils % (auto) 1.5 %; Hemoglobin 12.3 g/dl (12.0-16.0); Immature Granulocytes # (auto) 0.06 K/uL (0.01-0.20); Immature Granulocytes % (auto) 0.6 %; Lymphocytes # (auto) 1.43 K/uL (1.20-3.40); Lymphocytes % (auto) 13.8 %; Mean Corpuscular Hemoglobin 23.8 pg (25.0-34.0); Mean Corpuscular Hgb Conc 30.8 g/dL (32.0-36.0); Mean Corpuscular Volume 77.4 fL (80.0-100.0); Mean Platelet Volume 9.3 fL (9.4-12.4); Monocytes # (auto) 0.56 K/uL (0.11-0.59); Monocytes % (auto) 5.4 %; Neutrophils # (auto) 8.08 K/uL (1.40-6.50); Neutrophils % (auto) 78.3 %; Platelet Count 499 K/uL (130-400); RDW Coefficient of Variation 15.7 % (11.5-14.5); RDW Standard Deviation 44.3 fL (36.4-46.3); Red Blood Count 5.17 M/uL (4.20-5.40); White Blood Count 10.33 K/ul (4.8-10.8)
[2023-05-12 13:44] LABS: Calcium 10.1 mg/dl (8.6-10.3); Creatinine Clr Calc Pharmacy 134.4 ml/min; Est GFR (African American) 83.9 ml/min; Est GFR (Non-African American) 72.4 ml/min; Potassium 2.8 mmol/L (3.5-5.1)
[2023-05-12] MEDS ORDERED: POTASSIUM CHLORIDE CRTAB 20 MEQ TABCR PO STA (14:03)
[2023-05-12] MEDS ORDERED: SENNA 8.6 MG TAB PO PRN (20:16)
[2023-05-12] MEDS: clonazePAM 0.5 MG TAB PO SCH (20:18)
[2023-05-12] MEDS: MELATONIN 3 MG TAB PO SCH (20:24)
[2023-05-12] MEDS: traZODone HCL 50 MG TAB PO SCH (20:24)
[2023-05-12] MEDS ORDERED: POLYETHYLENE (MIRALAX) 17 GM PACK PO ONE (20:27)
--- NOTE | 2023-05-12 22:21 | Hospitalist Progress Note ---
Date of Service May 12, 2023 Assessment & Plan (1) (HFpEF) heart failure with preserved ejection fraction: Plan: Acute on chronic heart failure with preserved ejection fraction -Patient is making good urine, states shortness of breath is much improved We will continue IV Bumex twice daily, strict ins and outs, target net 2 L negative per day Previous dry weight around 370 pounds, [id number]. 186.2 kg on admission, she has about 18 kg to lose, Last saw heart failure clinic 03/10. BNP has been negative with heart failure, this was suspected to be artificially low due to severe obesity -Patient claims she is compliant with her meds at home - SGLT deferred / hx UTIs She is on Eliquis 2.5mg BId, which may be sub optimal given her Obesity Continue above diuretics. Continue to moniotr renal function. Patient remains 1-2 liters negative each day as of 05/11 renal function is stable, but creat is trending upward, will decrease bumex. Anticipate discharge soon but patient needs rehab. Patient is only 37 yo and she is motivated to get stronger and is willing participate in therapy for 3 hours. I anticipate she will make significant progress in 7-14 days of therapy. 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 Methadone continued on admission -Depression/anxiety.Continue clonazepam nightly, patient weaning as outpatient -Mitral valve replacement: Bioprosthetic, noted -Anticoagulation: Pt is on eliquis 2.5mg BID for DVT ppx due to stasis. THi sis not required for her artificial valve, and she has no history of Afib or DVT/PE. Limited data that apixaban does have plasma reduction in obese patients that does not require dose adjustment; however pt is at the extreme end of BMI. (4) Sleep apnea: Plan: Sleep apnea Severe, with comorbid obesity hypoventilation syndrome CPAP nightly (5) Primary hypothyroidism: Plan: Hypothyroidism Continue Synthroid (6) Hepatitis C: Plan: Hepatitis C, early cirrhosis Patient with history of hep C positive test, and history of fatty liver with early cirrhosis. Patient is pending follow-up with infectious disease as an outpatient, she has intake labs scheduled for this weekend. No transaminitis, low suspicion for hepatic decompensation at this time (7) Physical deconditioning: Plan: patient is a 2 person assist has not gotten out of bed Worsened by her left sided weakness from her stroke would benefit from rehab, patient now agreeable to a few days of rehab PT/OT Plan Patient insists she wants to go home, although currently she is a 2 person assist Goals of care: Patient has expressed desire to be DNR/DNI to outpatient providers and does not not want to return to the hospital, her mother does not agree with this and has had disagreement on how best to manage exacerbations as an outpatient. Was pending care planning with PCP/palliative care as outpatient. I did discuss this with patient and her mother at bedside. She reports that at this time she would be interested in assistive palliative measures to help manage for chronic discomfort and comorbidities but is not interested in any type of hospice or comfort measure oriented planning. Her and her mother's goal are currently to extend her life as much as possible with any and all available treatments. Neelima reports that she has expressed a desire in the past to be DNR/DNI and avoid hospitalization; however at this time agrees with full code measures. DVT PPx: eliquis Diet: HH/1200cc fluid restriction CODE: Full Dispo: PCU Admission and Anticipated Discharge Date Admission Date: May 01, 2023 Subjective Patient reports feeling better. Review of Systems Review of Systems: All systems reviewed & are unremarkable except as noted in HPI & below Physical Exam Physical Exam: The patient is awake, alert and oriented 3, well developed and well nourished, normocephalic and atraumatic, lying in bed and in no acute distress. HEENT--PERRL, EOMI Neck--supple. No JVD. No bruits. Thyroid normal, trachea midline, no adenopathy. Heart--normal S1 and S2. No murmurs, rubs or gallops. Lungs--clear bilaterally, no respiratory distress, no accessory muscle use. Abdomen--normal bowel sounds and soft. Mild epigastric and left sided abdominal pain Extremities--no cyanosis or clubbing. No edema. No rash noted. Results & Data Results & Data Vital Signs (Past 12 Hours) Vital Signs Temp Pulse Pulse Resp BP Pulse Ox O2 Del Method 05/12/23 19:52 37.1 C 84 20 95/64 L 96 Nasal Cannula 05/12/23 15:25 72 05/12/23 15:19 36.7 C 73 20 96/62 L 96 Nasal Cannula 05/12/23 11:45 36.3 C L 85 20 121/75 91 Nasal Cannula O2 Flow Rate 05/12/23 19:52 2 05/12/23 15:25 05/12/23 15:19 2 05/12/23 11:45 2 PG Care Time/CCT Total # of Minutes Spent Total Time Spent with Patient: Total time spent is greater than 50% in coordination of care (as documented) at patient's floor/unit and/or counseling patient: Coding Level of Care Code 53963 SUB INP/OBS CARE 2/35MIN Diagnoses (HFpEF) heart failure with preserved ejection fraction I50.30 Knee arthropathy M17.10 Chronic right arterial ischemic stroke, MCA (middle cerebral artery) I69.30 Sleep apnea G47.30 Primary hypothyroidism E03.9 Hepatitis C B19.20 Physical deconditioning R53.81
[2023-05-13 06:46] LABS: Calcium 9.9 mg/dl (8.6-10.3)
[2023-05-13 06:52] LABS: BUN Creatinine Ratio 30.6 (10-20); Creatinine Clr Calc Pharmacy 120.9 ml/min; Est GFR (Non-African American) 63.8 ml/min
[2023-05-13] MEDS ORDERED: BUMETANIDE 2 MG in SYRINGE 0 ML IV SCH (09:00)
[2023-05-13 09:25] LABS: Hematocrit (blood only) 39.2 % (37.0-47.0); Hemoglobin 12.2 g/dl (12.0-16.0); Mean Corpuscular Hemoglobin 23.7 pg (25.0-34.0); Mean Corpuscular Hgb Conc 31.1 g/dL (32.0-36.0); Mean Corpuscular Volume 76.3 fL (80.0-100.0); Mean Platelet Volume 9.8 fL (9.4-12.4); Nucleated RBC # (auto) 0.05 K/uL (0.00-0.12); Nucleated RBC % (auto) 0.5 %; Platelet Count 467 K/uL (130-400); RDW Coefficient of Variation 15.5 % (11.5-14.5); RDW Standard Deviation 42.8 fL (36.4-46.3); Red Blood Count 5.14 M/uL (4.20-5.40); White Blood Count 10.65 K/ul (4.8-10.8)
[2023-05-13] MEDS: METHADONE ORAL SOLN 2 MG/ML PO SCH (09:46)
[2023-05-13] MEDS: BUMETANIDE 2 MG in SYRINGE 0 ML IV SCH (09:46)
[2023-05-13] MEDS: APIXABAN 2.5 MG TAB PO SCH ×2 (09:47→20:31)
[2023-05-13] MEDS: GABAPENTIN 600 MG TAB PO SCH ×3 (09:47→20:31)
[2023-05-13] MEDS: FLUTICASONE FUROATE 100MCG 14 PUFFS/INHALER INH SCH (09:47)
[2023-05-13] MEDS: METOPROLOL TARTRATE 25 MG TAB PO SCH ×2 (09:48→20:31)
[2023-05-13] MEDS: SERTRALINE HCL 100 MG TABLET PO SCH (09:48)
[2023-05-13] MEDS: metOLazone 5 MG TABLET PO SCH (09:49)
[2023-05-13] MEDS: [UNRECOGNIZED DRUG - OTHER] SCH (09:49)
[2023-05-13] MEDS: POTASSIUM CHLORIDE CRTAB 20 MEQ TABCR PO SCH ×2 (09:53→20:31)
[2023-05-13] MEDS: POLYETHYLENE (MIRALAX) 17 GM PACK PO SCH (13:09)
[2023-05-13] MEDS ORDERED: POTASSIUM CHLORIDE CRTAB 20 MEQ TABCR PO STA (16:03)
[2023-05-13] MEDS: BUMETANIDE 1 MG TAB PO SCH (17:24)
[2023-05-13] MEDS: clonazePAM 0.5 MG TAB PO SCH (20:31)
[2023-05-13] MEDS: MELATONIN 3 MG TAB PO SCH (20:31)
[2023-05-13] MEDS: traZODone HCL 50 MG TAB PO SCH (20:31)
[2023-05-13] MEDS ORDERED: BUMETANIDE 1 MG TAB PO SCH (21:00)
--- NOTE | 2023-05-13 22:08 | Electrocardiogram Report ---
Test Reason : Blood Pressure : / mmHG Vent. Rate : 077 BPM Atrial Rate : 077 BPM P-R Int : 154 ms QRS Dur : 106 ms QT Int : 472 ms P-R-T Axes : 062 053 014 degrees QTc Int : 535 ms Normal sinus rhythm Prolonged QT Abnormal ECG When compared with ECG of 01-MAY-2023 11:24, Criteria for Anterior infarct are no longer Present Inverted T waves have replaced nonspecific T wave abnormality in Anterior leads QT has lengthened Confirmed by Leonard Tovar ([id number]) on 05/13/2023 10:08:02 PM Referred By: REFERRED SELF Confirmed By:Leonard Tovar
--- NOTE | 2023-05-13 22:19 | Hospitalist Progress Note ---
Date of Service May 13, 2023 Assessment & Plan (1) (HFpEF) heart failure with preserved ejection fraction: Plan: Acute on chronic heart failure with preserved ejection fraction -Patient is making good urine, states shortness of breath is much improved We will continue IV Bumex twice daily, strict ins and outs, target net 2 L negative per day Previous dry weight around 370 pounds, [id number]. 186.2 kg on admission, she has about 18 kg to lose, Last saw heart failure clinic 03/10. BNP has been negative with heart failure, this was suspected to be artificially low due to severe obesity -Patient claims she is compliant with her meds at home - SGLT deferred / hx UTIs She is on Eliquis 2.5mg BId, which may be sub optimal given her Obesity Continue above diuretics. Continue to moniotr renal function. Patient remains 1-2 liters negative each day as of 05/13 renal function is stable, but creat is trending upward, will decrease bumex. Anticipate discharge soon but patient needs rehab. Patient is only 37 yo and she is motivated to get stronger and is willing participate in therapy for 3 hours. I anticipate she will make significant progress in 7-14 days of therapy. 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 Methadone continued on admission -Depression/anxiety.Continue clonazepam nightly, patient weaning as outpatient -Mitral valve replacement: Bioprosthetic, noted -Anticoagulation: Pt is on eliquis 2.5mg BID for DVT ppx due to stasis. THi sis not required for her artificial valve, and she has no history of Afib or DVT/PE. Limited data that apixaban does have plasma reduction in obese patients that does not require dose adjustment; however pt is at the extreme end of BMI. (4) Sleep apnea: Plan: Sleep apnea Severe, with comorbid obesity hypoventilation syndrome CPAP nightly (5) Primary hypothyroidism: Plan: Hypothyroidism Continue Synthroid (6) Hepatitis C: Plan: Hepatitis C, early cirrhosis Patient with history of hep C positive test, and history of fatty liver with early cirrhosis. Patient is pending follow-up with infectious disease as an outpatient, she has intake labs scheduled for this weekend. No transaminitis, low suspicion for hepatic decompensation at this time (7) Physical deconditioning: Plan: patient is a 2 person assist has not gotten out of bed Worsened by her left sided weakness from her stroke would benefit from rehab, patient now agreeable to a few days of rehab PT/OT Plan Patient insists she wants to go home, although currently she is a 2 person assist Goals of care: Patient has expressed desire to be DNR/DNI to outpatient providers and does not not want to return to the hospital, her mother does not agree with this and has had disagreement on how best to manage exacerbations as an outpatient. Was pending care planning with PCP/palliative care as outpatient. I did discuss this with patient and her mother at bedside. She reports that at this time she would be interested in assistive palliative measures to help manage for chronic discomfort and comorbidities but is not interested in any type of hospice or comfort measure oriented planning. Her and her mother's goal are currently to extend her life as much as possible with any and all available treatments. Neelima reports that she has expressed a desire in the past to be DNR/DNI and avoid hospitalization; however at this time agrees with full code measures. DVT PPx: eliquis Diet: HH/1200cc fluid restriction CODE: Full Dispo: PCU Admission and Anticipated Discharge Date Admission Date: May 01, 2023 Subjective Patient reports no new symptoms. Review of Systems Review of Systems: All systems reviewed & are unremarkable except as noted in HPI & below Physical Exam Physical Exam: The patient is awake, alert and oriented 3, well developed and well nourished, normocephalic and atraumatic, lying in bed and in no acute distress. HEENT--PERRL, EOMI Neck--supple. No JVD. No bruits. Thyroid normal, trachea midline, no adenopathy. Heart--normal S1 and S2. No murmurs, rubs or gallops. Lungs--clear bilaterally, no respiratory distress, no accessory muscle use. Abdomen--normal bowel sounds and soft. Mild epigastric and left sided abdominal pain Extremities--no cyanosis or clubbing. No edema. No rash noted. Results & Data Results & Data Vital Signs (Past 12 Hours) Vital Signs Temp Pulse Pulse Resp BP Pulse Ox O2 Del Method 05/13/23 21:04 Nasal Cannula 05/13/23 20:02 37.2 C 79 20 104/71 97 Nasal Cannula 05/13/23 15:42 82 05/13/23 15:26 36.6 C 77 20 105/69 97 Nasal Cannula 05/13/23 11:35 36.6 C 84 20 120/74 93 Nasal Cannula O2 Flow Rate 05/13/23 21:04 2 05/13/23 20:02 2 05/13/23 15:42 05/13/23 15:26 2 05/13/23 11:35 2 PG Care Time/CCT Total # of Minutes Spent Total Time Spent with Patient: Total time spent is greater than 50% in coordination of care (as documented) at patient's floor/unit and/or counseling patient: Coding Level of Care Code 90387 SUB INP/OBS CARE 2/35MIN Diagnoses (HFpEF) heart failure with preserved ejection fraction I50.30 Knee arthropathy M17.10 Chronic right arterial ischemic stroke, MCA (middle cerebral artery) I69.30 Sleep apnea G47.30 Primary hypothyroidism E03.9 Hepatitis C B19.20 Physical deconditioning R53.81
[2023-05-14 08:07] VITALS: RESP 18
[2023-05-14 09:27] LABS: Hematocrit (blood only) 41.4 % (37.0-47.0); Hemoglobin 12.6 g/dl (12.0-16.0); Mean Corpuscular Hemoglobin 23.5 pg (25.0-34.0); Mean Corpuscular Hgb Conc 30.4 g/dL (32.0-36.0); Mean Corpuscular Volume 77.1 fL (80.0-100.0); Mean Platelet Volume 9.1 fL (9.4-12.4); Platelet Count 530 K/uL (130-400); RDW Coefficient of Variation 15.6 % (11.5-14.5); RDW Standard Deviation 43.1 fL (36.4-46.3); Red Blood Count 5.37 M/uL (4.20-5.40); White Blood Count 9.16 K/ul (4.8-10.8)
[2023-05-14 09:35] LABS: BUN Creatinine Ratio 36.7 (10-20); Calcium 10.3 mg/dl (8.6-10.3); Creatinine Clr Calc Pharmacy 122.2 ml/min; Est GFR (African American) 75.6 ml/min; Est GFR (Non-African American) 65.3 ml/min
[2023-05-14] MEDS: GABAPENTIN 600 MG TAB PO SCH (09:55)
[2023-05-14] MEDS: BUMETANIDE 1 MG TAB PO SCH (09:56)
[2023-05-14] MEDS: METOPROLOL TARTRATE 25 MG TAB PO SCH (09:56)
[2023-05-14] MEDS: SERTRALINE HCL 100 MG TABLET PO SCH (09:57)
[2023-05-14] MEDS: FLUTICASONE FUROATE 100MCG 14 PUFFS/INHALER INH SCH (09:57)
[2023-05-14] MEDS: APIXABAN 2.5 MG TAB PO SCH (09:57)
[2023-05-14] MEDS: metOLazone 5 MG TABLET PO SCH (09:58)
[2023-05-14] MEDS: POLYETHYLENE (MIRALAX) 17 GM PACK PO SCH (10:00)
[2023-05-14] MEDS: POTASSIUM CHLORIDE CRTAB 20 MEQ TABCR PO SCH (10:10)
[2023-05-14] MEDS: [UNRECOGNIZED DRUG - OTHER] SCH (10:11)
[2023-05-14] MEDS: METHADONE ORAL SOLN 2 MG/ML PO SCH (10:12)
[2023-05-14 11:31] VITALS: BP 107/71; PULSE 75; TEMP 98.2; O2SAT 97
[2023-05-14] MEDS ORDERED: POTASSIUM CHLORIDE CRTAB 20 MEQ TABCR PO STA (12:40)
--- NOTE | 2023-05-16 09:35 | Discharge Summary ---
Date of Service May 14, 2023 Admission HPI Per Admitting Provider Michelle is a 37-year-old female with past medical history of obesity hypoventilation, bipolar disorder, drug abuse in remission, endocarditis, right MCA stroke with homonymous hemianopsia and residual left spastic hemiparesis, heart failure with preserved ejection fraction, hepatitis C who presents for weight gain, leg swelling and he was suspected to have acute on chronic diastolic CHF Per ER patient with history of mitral valve replacement and bioprosthetic valve, sleep apnea, CHF. EF is normal. +severe weight gain in the last week. Pt is seen with his motherpresent. Michelle is somnolent but easily arousable and answers direct questioning, falls asleep easily and defers much of collateral hx to her mother who is at bedside. PEr pt and her mother has not had dietary indiscretion and has been taking bumex as directed but in week started to have swelling in the legs. Normally takes bumex 1 AM/PM, has not been taking bumex 1am/2pm but has still had decreased UOP and progressive swelling. Michelle was changed and bumex has bene increased approximately 1 month ago. She is pending followup with infectious disease for Hepatitis C. She has a referral to see [facility] Infectious disease. Was pending intake blood work at [facility] this weekend for myles tappt, but came in due to swelling an dsuspected CHF. Has been more sweaty than normal, but denies fever/chills/night sweats. Left leg and calf is much more painful than normla, including prior CHF exacerbations. Home weight 382 Medical History: Reviewed Medications: Reviewed Surgical History: Reviewed Family history: Reviewed Allergies: Reviewed Social History: REviewed Code Status:Full Discharge Exam The patient is awake, alert and oriented 3, well developed and well nourished, normocephalic and atraumatic, lying in bed and in no acute distress. HEENT--PERRL, EOMI Neck--supple. No JVD. No bruits. Thyroid normal, trachea midline, no adenopathy. Heart--normal S1 and S2. No murmurs, rubs or gallops. Lungs--clear bilaterally, no respiratory distress, no accessory muscle use. Abdomen--normal bowel sounds and soft. Mild epigastric and left sided abdominal pain Extremities--no cyanosis or clubbing. No edema. No rash noted. Discharge Data Allergies Allergy/AdvReac Type Severity Reaction Status Date / Time sulfamethoxazole Allergy Severe Anaphylaxis Verified 04/01/23 13:35 [From Bactrim] trimethoprim [From Bactrim] Allergy Severe Anaphylaxis Verified 04/01/23 13:35 atorvastatin AdvReac Intermediate Muscle Pain Verified 04/01/23 13:35 Consultations 05/01/23 13:35 ED Decision to Admit Stat 05/01/23 13:46 ED Decision to Admit Stat 05/03/23 19:22 Consult Orthopedic Surgery Routine Ordered Studies 05/01/23 15:20 US venous doppler LE LT Stat 05/08/23 13:02 CT Abd and Pelvis [CT abd pelvis wo con] Routine Hospital Course (1) (HFpEF) heart failure with preserved ejection fraction: Acute on chronic heart failure with preserved ejection fraction -Patient is making good urine, states shortness of breath is much improved We will continue IV Bumex twice daily, strict ins and outs, target net 2 L negative per day Previous dry weight around 370 pounds, [id number]. 186.2 kg on admission, she has about 18 kg to lose, Last saw heart failure clinic 03/10. BNP has been negative with heart failure, this was suspected to be artificially low due to severe obesity -Patient claims she is compliant with her meds at home - SGLT deferred 2/2 hx UTIs She is on Eliquis 2.5mg BId, which may be sub optimal given her Obesity Continue above diuretics. Continue to moniotr renal function. Patient remains 1-2 liters negative each day as of 05/13 renal function is stable, but creat is trending upward, will decrease bumex. Anticipate discharge soon but patient needs rehab. Patient is only 37 yo and she is motivated to get stronger and is willing participate in therapy for 3 hours. I anticipate she will make significant progress in 7-14 days of therapy. 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 Methadone continued on admission -Depression/anxiety.Continue clonazepam nightly, patient weaning as outpatient -Mitral valve replacement: Bioprosthetic, noted -Anticoagulation: Pt is on eliquis 2.5mg BID for DVT ppx due to stasis. THi sis not required for her artificial valve, and she has no history of Afib or DVT/PE. Limited data that apixaban does have plasma reduction in obese patients that does not require dose adjustment; however pt is at the extreme end of BMI. (4) Sleep apnea: Sleep apnea Severe, with comorbid obesity hypoventilation syndrome CPAP nightly (5) Primary hypothyroidism: Hypothyroidism Continue Synthroid (6) Hepatitis C: Hepatitis C, early cirrhosis Patient with history of hep C positive test, and history of fatty liver with early cirrhosis. Patient is pending follow-up with infectious disease as an outpatient, she has intake labs scheduled for this weekend. No transaminitis, low suspicion for hepatic decompensation at this time (7) Physical deconditioning: patient is a 2 person assist has not gotten out of bed Worsened by her left sided weakness from her stroke would benefit from rehab, patient now agreeable to a few days of rehab PT/OT Plan Patient insists she wants to go home, although currently she is a 2 person assist Goals of care: Patient has expressed desire to be DNR/DNI to outpatient providers and does not not want to return to the hospital, her mother does not agree with this and has had disagreement on how best to manage exacerbations as an outpatient. Was pending care planning with PCP/palliative care as outpatient. I did discuss this with patient and her mother at bedside. She reports that at this time she would be interested in assistive palliative measures to help manage for chronic discomfort and comorbidities but is not interested in any type of hospice or comfort measure oriented planning. Her and her mother's goal are currently to extend her life as much as possible with any and all available treatments. Neelima reports that she has expressed a desire in the past to be DNR/DNI and avoid hospitalization; however at this time agrees with full code measures. DVT PPx: eliquis Diet: HH/1200cc fluid restriction CODE: Full Dispo: PCU Discharge Plan Discharge Items Patient Disposition: Home - Home Health Services Reason For Visit: [id number] Discharge Diagnosis: CHF Activity: Resume your previous activity Non-emergency contact: Primary Care Provider Call non-emergency contact if: you have any medication questions Follow-up/Referrals: Stacey Arce MD [Primary Care Provider] - 05/23/23 10:20 am Margie Malone PA-C [Physician Stabilizing Machine Operator] - 05/19/23 3:00 pm Diet: Low Sodium (2gm) Fluids: 1200ml (5 cups) Addtl Attending Provider Instructions: please followup with CHF clinic Emy Malone as above. Please get blood work completed on Friday. Call your Primary Care doctor if any of the following symptoms or problems start or get worse: * Shortness of breath or difficulty breathing * Wake up at night short of breath * Chest pain * Cough * Swelling of your hands, feet, or legs * More fatigued or tired with your normal activity * Palpitations - sudden fast heart beats WEIGHT * Weigh yourself every morning after using the bathroom. * Use the same scale. * Wear the same amount of clothing. * Write your weight down on a chart. * Call your Primary Care doctor if you gain more than 2-3 pounds in 1-2 days. MEDICATIONS * Use this discharge instruction sheet for medication instructions. * Take your medications at the time your doctor ordered. * Do not skip a dose of your medicines. * If you miss a dose of medicine, take it as soon as possible, but DO NOT DOUBLE A DOSE. * Read your medicine information when you get home. * Know all of the side effects of your medicine. If in doubt, ask your pharmacist * Call your Primary Care doctor's office if you have any side effects. * Be sure all of your doctors know what medicine and herbs you take (including cold, flu, and herbal medicine). Take the following with you to your follow-up doctor appointments: * Weight Chart * Medication List * List of questions Do not drink excessive alcohol, beer or wine. Pending Studies at Discharge: No Stand-Alone Forms: My [employer], Smoking Cessation Medications and DC Order Prescriptions: Continued (DME) Lift Chair Misc See Rx Instructions .Route Qty: 1 0RF Rx Instructions: As directed (DME) miscellaneous medical supply Misc See Rx Instructions .ROUTE .MEDSUPPLY Qty: 1 0RF Rx Instructions: Left wrist splint Dx: lt spastic hemiparesis Flovent Diskus 100 mcg/actuation blister with device 1 inh inhalation BID Qty: 60 2RF epinephrine 0.3 mg/0.3 mL auto-injector 0.3 mg IM .COMPLEX PRN (Reason: anaphylaxis) Qty: 2 1RF Rx Instructions: 0.3 mg intramuscularly once but repeat dose x1 in 5-15min if needed PRN; After first injection, proceed to the ER bumetanide 2 mg tablet 4 mg PO BID Qty: 120 2RF Rx Instructions: take 7-8am each morning and about 3-4pm in the afternoon every day. baclofen 10 mg tablet 10 mg PO BID PRN (Reason: muscle stiffness/spasm) Qty: 60 5RF gabapentin 600 mg tablet 600 mg PO TID Qty: 90 2RF clonazepam 0.5 mg tablet 0.5 mg PO HS Qty: 30 0RF apixaban 2.5 mg tablet 2.5 mg PO BID Qty: 60 5RF metoprolol tartrate 50 mg tablet 25 mg PO BID Qty: 30 5RF trazodone 50 mg tablet 50 mg PO HS Qty: 30 5RF sertraline 100 mg tablet 200 mg PO DAILY Qty: 60 5RF potassium chloride 20 mEq tablet extended release 20 meq PO BID Qty: 60 5RF (DME) Wheelchair (Manual) Device See Rx Instructions .Route Qty: 1 0RF Rx Instructions: As [id number] Z86.73 (DME) Hospital Bed [facility] See Rx Instructions .Route Qty: 1 0RF Rx Instructions: As directed G81.9, I63.411 (DME) Manual Wheelchair Device See Rx Instructions .Route Qty: 1 0RF Rx Instructions: aly[address] drive WC please G81.9 ketoconazole 2 % cream 1 applic topical BID 28 Days Qty: 15 0RF methadone 10 mg Tablet 72 mg PO DAILY melatonin 3 mg Tablet 3 mg PO HS aspirin 81 mg Tablet,Chewable 81 mg PO DAILY multivitamin with minerals Tablet 1 tab PO DAILY magnesium oxide 400 mg (241.3 mg magnesium) tablet 400 mg PO DAILY Qty: 30 2RF Combivent Respimat 20-100 mcg/actuation Mist 1 puff INHALATION TID PRN (Reason: cough/wheezing/shortness of breath) Qty: 1 0RF (DME) Oxygen Home Liters Per Minute See Rx Instructions .ROUTE .MEDSUPPLY Qty: 1 0RF Rx Instructions: 2 liters NC O2 with sleep. diclofenac sodium [Voltaren Arthritis Pain] 1 % Gel 4 g EXT QID PRN (Reason: right knee pain OR back pain) Qty: 1 0RF levothyroxine 88 mcg capsule 88 mcg PO DAILY Qty: 30 1RF acetaminophen [Tylenol 8 Hour] 650 mg tablet extended release 650 mg PO Q8H PRN (Reason: fever or pain) Qty: 1 0RF polyethylene glycol 3350 [Miralax] 17 gram powder in packet 17 g PO DAILY PRN (Reason: Constipation) Rx Instructions: you can purchase daily, individual packets OR a bottle; both are [id number]. pantoprazole 40 mg tablet,delayed release (DR/EC) 40 mg PO DAILY Discharge Orders: Discharge Order- CHF (Routine); Ordered 05/14/23 Ordered By: Kvng Monroe Admission Data Admit Date/Time: 05/01/23 15:25 Attending Provider: Kvng Monroe Admit Provider: Kostas Patel Primary Care Provider: Stacey Arce Other Providers: Kostas Patel; Alex Hernandez; [facility] Other Interventions: Discharge Summary Assessment (RN) Last Done: 05/14/23 13:02 Coding Diagnoses (HFpEF) heart failure with preserved ejection fraction I50.30 Knee arthropathy M17.10 Chronic right arterial ischemic stroke, MCA (middle cerebral artery) I69.30 Sleep apnea G47.30 Primary hypothyroidism E03.9 Hepatitis C B19.20 Physical deconditioning R53.81
== END 2023-05-14 14:25 | disposition home health service (06) | DRG 292 ==
LOC: ED 11:17 → SUATTDRO 15:25 → EDINP 15:25 → 2E 17:41 → 2N 05-10 18:35 → 2W 05-10 20:13
DX: B19.20 Unspecified viral hepatitis C without hepatic coma; F31.9 Bipolar disorder, unspecified; E03.9 Hypothyroidism, unspecified; Z95.2 Presence of prosthetic heart valve; M17.11 Unilateral primary osteoarthritis, right knee; D73.4 Cyst of spleen; Z88.8 Allergy status to other drugs, medicaments and biological substances; F17.210 Nicotine dependence, cigarettes, uncomplicated; F41.9 Anxiety disorder, unspecified; K74.60 Unspecified cirrhosis of liver; Z68.43 Body mass index [BMI] 50.0-59.9, adult; I50.33 Acute on chronic diastolic (congestive) heart failure; D64.9 Anemia, unspecified; Z79.82 Long term (current) use of aspirin; F11.20 Opioid dependence, uncomplicated; I69.398 Other sequelae of cerebral infarction; Z66 Do not resuscitate; Z88.2 Allergy status to sulfonamides; F32.A Depression, unspecified; Z79.890 Hormone replacement therapy; E66.2 Morbid (severe) obesity with alveolar hypoventilation; I69.354 Hemiplegia and hemiparesis following cerebral infarction affecting left non-dominant side; Z79.01 Long term (current) use of anticoagulants

== ENCOUNTER 2023-08-08 18:12 | Observation (INO) ==
--- NOTE | 2023-08-08 18:24 | Emergency Department Note ---
Impression & Plan Hypotension, Hypokalemia ED Provider Note NAME: TWILA RADER AGE: 37 SEX: F : 1985 ARRIVES VIA: Ambulance INFORMANT: Patient ED PROVIDER(S): Modesto De Luna DO CHIEF COMPLAINT: shortness of breath HPI: Patient is a 37-year-old female who presents to the ER with a past medical history of drug abuse, bipolar disorder, mitral valve replacement which is bioprosthetic and history of CHF who presents to the ER for shortness of breath which has been present for the past 2 weeks. She notes she weighs herself daily and she weighs about 380 pounds. She notes that has not changed recently. She had a chest x-ray performed as an outpatient and her PCP referred her in as she was concerned for heart failure. Patient notes she has been taking all of her meds. She has not missed any doses of her blood thinners. She admits to a cough which is unchanged for the past month. No fevers. No chest pain. No belly pain. No nausea, vomiting, or diarrhea. She notes that she has been wearing her oxygen which she is just supposed to wear at night during the day. ADDITIONAL HISTORY OBTAINED: Per HPI Chronic Medical/Social Conditions Affecting Care: Per HPI PAST MEDICAL HISTORY:See Below PAST SURGICAL HISTORY:See Below FAMILY HISTORY:See Below SOCIAL HISTORY:See Below HOME MEDICATIONS:See Below ALLERGIES:See Below VITALS:See Below PHYSICAL EXAMINATION: GENERAL: Sitting up in bed, alert, morbidly obese, disheveled EYE EXAM: normal conjunctiva. OROPHARYNX: mucous membranes are moist NECK: supple, no nuchal rigidity, no adenopathy, non-tender LUNGS: Clear to auscultation. Normal chest wall mechanics HEART: no murmurs, S1 normal and S2 normal ABDOMEN: abdomen soft, non-tender, normo-active bowel sounds, no masses, no rebound or guarding. BACK: Back is symmetrical on inspection and there is no deformity, no midline tenderness, no CVA tenderness. SKIN: no rashes and no bruising UPPER EXTREMITIES: upper extremities are grossly normal. LOWER EXTREMITIES: No pitting edema. NEURO EXAM: Normal sensorium, cranial nerves II-XII grossly intact, normal speech, no gross weakness of arms, no gross weakness of legs. MEDICAL DECISION MAKING: Patient is a 37-year-old female with a past medical history of drug abuse, mitral valve replacement and CHF who presents the ER for shortness of breath. IVs were established blood work was obtained. Labs show no significant leukocytosis. Mild anemia 11.5. BMP with mild hypokalemia 3.3. LFTs bilirubin were unremarkable. Troponin was negative. Lipase were unremarkable. Chest x- ray with subtle signs of CHF. Her weight is actually down in the 170s as opposed to 180kg which she was previously. She did drop her blood pressure several times. She was given a bolus IV fluids. Did respond. Discussed the case with the hospitalist for observation as I question if she has been overdiuresed. No overt signs of infection. She denies all complaints other than some mild shortness of breath. Potassium was repleted orally. Consults/Care Managements Discussions: Per [facility] Triage Nursing notes reviewed. Limited review of prior medical records performed Vital Signs: reviewed and remarkable for no significant abnormalities Differential diagnosis: Differential diagnoses includes but is not limited to pneumonia, bronchitis, COPD/Asthma exacerbation, pneumothorax, pulmonary embolism, congestive heart failure, acute coronary syndrome ER treatment provided: See below Diagnostics interpreted by me include EKG and cardiac monitoring as listed below: -Cardiac Monitoring: An order was placed for continuous cardiac monitoring. The monitor shows a rate of 70 with sinus rhythm. -ECG: Sinus rhythm rate 83 Normal axis No PVCs QTc 493 -Laboratory studies:Interpreted by me as stated above in MDM and shown below. Imaging studies: Xrays: As interpreted by me: Portable AP upright 1 view of the chest shows no large focal infiltrate CTs show: none Procedures:none Critical Care: None Past Med/Surg History Medical History (Updated 08/08/23 @ 23:07 by Modesto De Luna DO) Tobacco dependence Hypokalemia Sleep apnea Primary hypothyroidism Hepatitis C Left spastic hemiparesis Right knee pain Cirrhosis Fatty liver ANTWAN (acute kidney injury) Back pain Hypothyroidism Acute on chronic heart failure with preserved ejection fraction (HFpEF) Snoring Iron deficiency B12 deficiency Morbid obesity Thalassemia Edema, peripheral Splenic abscess Splenomegaly Hypoxia Opioid use disorder, severe, in sustained remission on maintenance therapy Methadone MENDEZ (generalized anxiety disorder) Major depressive disorder, recurrent episode, moderate with anxious distress Chronic right arterial ischemic stroke, MCA (middle cerebral artery) Left-sided weakness Bipolar disorder History of embolic stroke Rt MCA History of stroke Drug abuse and dependence Anemia Endocarditis Anxiety PCOS (polycystic ovarian syndrome) Surgical History (Updated 06/30/23 @ 13:37 by Leonard Tovar MD) S/P mitral valve replacement with bioprosthetic valve (06/2022) H/O mitral valve replacement History of repair of ACL History of section History of tubal ligation Family History Grandmother (Paternal) Breast cancer Grandfather (Maternal) Myocardial infarction Graves disease Grandfather (Paternal) Myocardial infarction Other Thalassemia Denies family history of Colon cancer Ovarian cancer Prostate cancer Social History Smoking Status: Former smoker Tobacco Type: Cigarettes packs per day: 1; Second Hand Exposure: Yes; Do You Dip or Chew Tobacco: No; Hx Alcohol Use: No Hx Substance Use: Yes Last Used Substance: Days (ago) Last Used Substance Other:: "13 months ago" Substance Use Type Other:: clean for 10 months Preferred Language: Khmer Communication Ability: Effective Visual Impairment: No Limitations Hearing Ability: Normal Tour Operator Required: No Beliefs That Will Affect Care: None marital status: Single Current Living Situation: Parent Current Living Situation Comment: Mother assists 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 Feels Safe at Home: Yes Childhood Exposure to Second-Hand Smoke: No Diet: regular Diet Comment: regular Dental Care, Regularly: No Physical Activity Frequency: Does not Exercise Seatbelt Use: sometimes Sunscreen Use: No Assistive Devices: Oxygen - at Night and Wheelchair Allergies Allergies Allergy/AdvReac Type Severity Reaction Status Date / Time sulfamethoxazole Allergy Severe Anaphylaxis Verified 08/08/23 21:52 [From Bactrim] trimethoprim [From Bactrim] Allergy Severe Anaphylaxis Verified 08/08/23 21:52 atorvastatin AdvReac Intermediate Muscle Pain Verified 08/08/23 21:52 Home Meds Home Medications Medication Instructions Recorded Confirmed aspirin 81 mg chewable tablet 81 mg PO DAILY 12/16/22 08/08/23 melatonin 3 mg tablet 3 mg PO HS 12/16/22 08/08/23 methadone 10 mg tablet 72 mg PO DAILY 12/16/22 08/08/23 multivitamin with minerals 1 tab PO DAILY 12/16/22 08/08/23 pantoprazole 40 mg tablet,delayed 40 mg PO DAILY 11/09/23 02/16/24 release polyethylene glycol 3350 17 gram 17 g PO DAILY PRN Constipation 05/01/23 08/08/23 oral powder packet (Miralax) fluticasone propionate 100 1 inh inhalation BID 08/08/23 08/08/23 mcg/actuation blister powder for inhalation metolazone 2.5 mg tablet 2.5 mg PO Q OTHER DAY 08/08/23 08/08/23 Previous Rx's Medication Instructions Recorded Wheelchair (Manual) #1 ea 03/25/22 Hospital Bed [facility] (Hospital #1 ea 04/18/22 Bed) Wheelchair (Manual) (Manual #1 ea 04/18/22 Wheelchair) Lift Chair #1 ea 10/09/22 miscellaneous medical supply #1 ea 10/16/22 ketoconazole 2 % topical cream 1 applic topical BID 4 weeks #15 11/19/22 grams epinephrine 0.3 mg/0.3 mL 0.3 mg (0.3 mL) IM .COMPLEX PRN 12/26/22 injection, auto-injector anaphylaxis #2 ea magnesium oxide 400 mg (241.3 mg 400 mg PO DAILY #30 tabs 01/08/23 magnesium) tablet Oxygen Home E0424 #1 ea 01/26/23 ipratropium 20 mcg-albuterol 100 1 puff inhalation TID PRN 01/26/23 mcg/actuation mist for inhalation cough/wheezing/shortness of breath (Combivent Respimat) #1 g acetaminophen 650 mg 650 mg PO Q8H PRN fever or pain #1 02/24/23 tablet,extended release (Tylenol 8 tab Hour) diclofenac sodium 1 % topical gel 4 g EXT QID PRN right knee pain OR 02/24/23 (Voltaren Arthritis Pain) back pain #1 tube levothyroxine 88 mcg capsule 88 mcg PO DAILY #30 caps 02/24/23 bumetanide 2 mg tablet 4 mg (2 x 2 mg) PO BID #120 tabs 03/06/23 baclofen 10 mg tablet 10 mg PO BID PRN muscle 03/10/23 stiffness/spasm #60 tabs apixaban 2.5 mg tablet 2.5 mg PO BID #60 tabs 03/19/23 metoprolol tartrate 50 mg tablet 25 mg (1/2 x 50 mg) PO BID #30 tabs 03/19/23 sertraline 100 mg tablet 200 mg (2 x 100 mg) PO DAILY #60 03/19/23 tabs trazodone 50 mg tablet 50 mg PO HS #30 tabs 03/19/23 gabapentin 600 mg tablet 600 mg PO TID #90 tabs 03/31/23 Powered Wheelchair #1 ea 05/27/23 potassium chloride 20 mEq 40 meq (2 x 20 mEq) PO BID #120 06/05/23 tablet,extended release tabs spironolactone 25 mg tablet 25 mg PO DAILY #30 tabs 06/30/23 clonazepam 0.5 mg tablet 0.5 mg PO HS #30 tabs 07/28/23 Results & Data (ED) Vital Signs Vital Signs - 24 hr 08/08/23 18:31 08/08/23 18:33 08/08/23 18:33 Temperature 36.8 C Temperature Source Oral Pulse Rate 82 82 Pulse Rate [Apical] Pulse Rate from SpO2 Sensor Respiratory Rate 14 Respiratory Effort / Characteristics Respiratory Depth Respiratory Pattern Blood Pressure 115/69 Blood Pressure [Right Arm] Blood Pressure Mean 84 Blood Pressure Mean [Right Arm] Pulse Oximetry 92 92 Oxygen Delivery Method Room Air Room Air Oxygen Flow Rate Sepsis Recent Fever Within 48 Hours No Sepsis New/Unexplained Change in Mental Status N/A Sepsis Action Taken by Nursing No Action Required 08/08/23 21:04 08/08/23 21:13 08/08/23 21:13 Temperature Temperature Source Pulse Rate 71 Pulse Rate [Apical] 70 Pulse Rate from SpO2 Sensor 71 Respiratory Rate 18 13 Respiratory Effort / Characteristics Non-Labored Spontaneous Respiratory Depth Normal Respiratory Pattern Regular Blood Pressure 90/60 L Blood Pressure [Right Arm] 91/68 L Blood Pressure Mean 65 Blood Pressure Mean [Right Arm] 75 Pulse Oximetry 97 94 Oxygen Delivery Method Room Air Nasal Cannula Oxygen Flow Rate 3 Sepsis Recent Fever Within 48 Hours Sepsis New/Unexplained Change in Mental Status Sepsis Action Taken by Nursing 08/08/23 21:20 08/08/23 21:27 08/08/23 21:27 Temperature Temperature Source Pulse Rate 77 71 Pulse Rate [Apical] Pulse Rate from SpO2 Sensor 72 70 Respiratory Rate 19 17 Respiratory Effort / Characteristics Respiratory Depth Respiratory Pattern Blood Pressure 85/55 L Blood Pressure [Right Arm] Blood Pressure Mean 61 Blood Pressure Mean [Right Arm] Pulse Oximetry 93 91 Oxygen Delivery Method Oxygen Flow Rate Sepsis Recent Fever Within 48 Hours Sepsis New/Unexplained Change in Mental Status Sepsis Action Taken by Nursing 08/08/23 21:28 08/08/23 22:09 08/08/23 22:10 Temperature Temperature Source Pulse Rate Pulse Rate [Apical] Pulse Rate from SpO2 Sensor 84 79 Respiratory Rate Respiratory Effort / Characteristics Respiratory Depth Respiratory Pattern Blood Pressure Blood Pressure [Right Arm] 90/60 L Blood Pressure Mean Blood Pressure Mean [Right Arm] 70 Pulse Oximetry 98 97 Oxygen Delivery Method Oxygen Flow Rate Sepsis Recent Fever Within 48 Hours Sepsis New/Unexplained Change in Mental Status Sepsis Action Taken by Nursing Laboratory Data 08/08/23 20:01 08/08/23 20:01 Lab Results 08/08/23 Range/Units 20:01 WBC 7.69 (4.8-10.8) K/ul RBC 4.63 (4.20-5.40) M/uL Hgb 11.5 L (12.0-16.0) g/dl Hct 36.7 L (37.0-47.0) % MCV 79.3 L (80.0-100.0) fL MCH 24.8 L (25.0-34.0) pg MCHC 31.3 L (32.0-36.0) g/dL RDW Std Deviation 42.7 (36.4-46.3) fL RDW Coeff of Alexia 15.0 H (11.5-14.5) % Plt Count 433 H (130-400) K/uL MPV 9.2 L (9.4-12.4) fL Immature Gran % (Auto) 0.4 % Neut % (Auto) 60.6 % Lymph % (Auto) 29.5 % [place] % (Auto) 5.6 % Eos % (Auto) 3.1 % Baso % (Auto) 0.8 % Neut # (Auto) 4.66 (1.40-6.50) K/uL Lymph # (Auto) 2.27 (1.20-3.40) K/uL [place] # (Auto) 0.43 (0.11-0.59) K/uL Eos # (Auto) 0.24 (0.00-0.50) K/uL Baso # (Auto) 0.06 (0.00-0.20) K/uL Immature Gran # (Auto) 0.03 (0.01-0.20) K/uL Sodium 135 L (136-145) mmol/L Potassium 3.3 L (3.5-5.1) mmol/L Chloride 96 L (98-107) mmol/L Carbon Dioxide 30 (21-32) mmol/L Anion Gap 9 (3-11) BUN 12 (6-23) mg/dl Creatinine 1.02 (0.6-1.2) mg/dl Est Cr Clr Drug Dosing 129.4 ml/min Est GFR ( Amer) 82.0 ml/min Est GFR (Non-Af Amer) 70.7 ml/min BUN/Creatinine Ratio 11.8 (10-20) Glucose 105 H (70-99(Fasting)) mg/dl Calcium 9.2 (8.6-10.3) mg/dl Total Bilirubin 0.3 (0.2-1.0) mg/dl AST 19 (13-39) U/L ALT 12 (7-52) U/L Alkaline Phosphatase 103 (34-104) U/L Troponin I High Sens < 2.3 (0-14) pg/ml B-Natriuretic Peptide 35 (0-100) pg/ml Total Protein 8.4 H (6.0-8.3) gm/dl Albumin 3.8 (3.4-5.0) gm/dl Globulin 4.6 H (2.5-4.0) gm/dl Albumin/Globulin Ratio 0.8 L (0.9-2) Lipase 38 (11-82) U/L Administered Medications Discontinued Medications Sodium Chloride (Nss) 500 mls @ 999 mls/hr IV .Q31M ONE Stop: 08/08/23 21:47 Last Admin: 08/08/23 21:50 Dose: 999 mls/hr Documented By: ARI Potassium Chloride (Potassium Chloride Crtab 20 Meq Tabcr) 40 meq PO NOW STA Stop: 08/08/23 21:07 Last Admin: 08/08/23 21:50 Dose: 40 meq Documented By: ARI Imaging Data Radiologist's Impression: Chest X-Ray 08/08/23 18:20 XR chest 1V portable HISTORY: Chest pain, nonspecific COMPARISON: Chest 08/06/2023. FINDINGS: No pneumothorax. No pleural effusions. There are low lung volumes. The heart remains mildly enlarged. There is mild central pulmonary vascular congestion without overt edema. There are poststernotomy changes. No acute fractures. IMPRESSION: Cardiomegaly and mild central pulmonary vascular congestion without overt edema. ACT 112: Negative or not required by law. Electronically signed by: Mauricio Matos M.D. 08/08/2023 6:48 PM Discharge Plan Visit Data Chief Complaint: Edema To Extremity Stated Complaint: EDEMA, REFERRED BY PCP ED Provider: Modesto De Luna Discharge Problem: Hypotension, Hypokalemia Forms Stand Alone Forms: [facility] bookjam Prescriptions Prescriptions: No Action (DME) Lift Chair Misc See Rx Instructions .Route Qty: 1 0RF Rx Instructions: As directed (DME) miscellaneous medical supply Misc See Rx Instructions .ROUTE .MEDSUPPLY Qty: 1 0RF Rx Instructions: Left wrist splint Dx: lt spastic hemiparesis epinephrine 0.3 mg/0.3 mL auto-injector 0.3 mg IM .COMPLEX PRN (Reason: anaphylaxis) Qty: 2 1RF Rx Instructions: 0.3 mg intramuscularly once but repeat dose x1 in 5-15min if needed PRN; After first injection, proceed to the ER bumetanide 2 mg tablet 4 mg PO BID Qty: 120 2RF Rx Instructions: take 7-8am each morning and about 3-4pm in the afternoon every day. baclofen 10 mg tablet 10 mg PO BID PRN (Reason: muscle stiffness/spasm) Qty: 60 5RF gabapentin 600 mg tablet 600 mg PO TID Qty: 90 2RF potassium chloride 20 mEq tablet extended release 40 meq PO BID Qty: 120 5RF clonazepam 0.5 mg tablet 0.5 mg PO HS Qty: 30 0RF spironolactone 25 mg tablet 25 mg PO DAILY Qty: 30 5RF (DME) Powered Wheelchair Misc See Rx Instructions .Route Qty: 1 0RF Rx Instructions: As directed ICD-10: G81.14, M17.11 apixaban 2.5 mg tablet 2.5 mg PO BID Qty: 60 5RF metoprolol tartrate 50 mg tablet 25 mg PO BID Qty: 30 5RF trazodone 50 mg tablet 50 mg PO HS Qty: 30 5RF sertraline 100 mg tablet 200 mg PO DAILY Qty: 60 5RF (DME) Wheelchair (Manual) Device See Rx Instructions .Route Qty: 1 0RF Rx Instructions: As [id number] Z86.73 (DME) Hospital Bed [facility] [place] See Rx Instructions .Route Qty: 1 0RF Rx Instructions: As directed G81.9, I63.411 (DME) Manual Wheelchair Device See Rx Instructions .Route Qty: 1 0RF Rx Instructions: [address] drive WC please G81.9 ketoconazole 2 % cream 1 applic topical BID 28 Days Qty: 15 0RF methadone 10 mg Tablet 72 mg PO DAILY melatonin 3 mg Tablet 3 mg PO HS aspirin 81 mg Tablet,Chewable 81 mg PO DAILY multivitamin with minerals Tablet 1 tab PO DAILY magnesium oxide 400 mg (241.3 mg magnesium) tablet 400 mg PO DAILY Qty: 30 2RF Combivent Respimat 20-100 mcg/actuation Mist 1 puff INHALATION TID PRN (Reason: cough/wheezing/shortness of breath) Qty: 1 0RF (DME) Oxygen Home E0424 Liters Per Minute See Rx Instructions .ROUTE .MEDSUPPLY Qty: 1 0RF Rx Instructions: 2 liters NC O2 with sleep. diclofenac sodium [Voltaren Arthritis Pain] 1 % Gel 4 g EXT QID PRN (Reason: right knee pain OR back pain) Qty: 1 0RF levothyroxine 88 mcg capsule 88 mcg PO DAILY Qty: 30 1RF acetaminophen [Tylenol 8 Hour] 650 mg tablet extended release 650 mg PO Q8H PRN (Reason: fever or pain) Qty: 1 0RF polyethylene glycol 3350 [Miralax] 17 gram powder in packet 17 g PO DAILY PRN (Reason: Constipation) Rx Instructions: you can purchase daily, individual packets OR a bottle; both are [id number]. pantoprazole 40 mg tablet,delayed release (DR/EC) 40 mg PO DAILY fluticasone propionate [Flovent Diskus] 100 mcg/actuation Blister With Device 1 inh INHALATION BID metolazone 2.5 mg tablet 2.5 mg PO Q OTHER DAY Referrals Referrals: Stacey Arce MD [Primary Care Provider] - Discharge Problem: Hypotension Qualifiers: Hypotension type: unspecified hypotension type Qualified Code(s): I95.9 - Hypotension, unspecified
--- NOTE | 2023-08-08 18:51 | XRay Report ---
XR chest 1V portable HISTORY: Chest pain, nonspecific COMPARISON: Chest 08/06/2023. FINDINGS: No pneumothorax. No pleural effusions. There are low lung volumes. The heart remains mildly enlarged. There is mild central pulmonary vascular congestion without overt edema. There are postste rnotomy changes. No acute fractures. IMPRESSION: Cardiomegaly and mild central pulmonary vascular congestion without overt edema. ACT 112: Negative or not required by law. Electronically signed by: Mauricio Matos M.D. 08/08/2023 6:48 PM
[2023-08-08 20:13] LABS: Basophils # (auto) 0.06 K/uL (0.00-0.20); Basophils % (auto) 0.8 %; Eosinophils # (auto) 0.24 K/uL (0.00-0.50); Eosinophils % (auto) 3.1 %; Hematocrit (blood only) 36.7 % (37.0-47.0); Hemoglobin 11.5 g/dl (12.0-16.0); Immature Granulocytes # (auto) 0.03 K/uL (0.01-0.20); Immature Granulocytes % (auto) 0.4 %; Lymphocytes # (auto) 2.27 K/uL (1.20-3.40); Lymphocytes % (auto) 29.5 %; Mean Corpuscular Hemoglobin 24.8 pg (25.0-34.0); Mean Corpuscular Hgb Conc 31.3 g/dL (32.0-36.0); Mean Corpuscular Volume 79.3 fL (80.0-100.0); Mean Platelet Volume 9.2 fL (9.4-12.4); Monocytes # (auto) 0.43 K/uL (0.11-0.59); Monocytes % (auto) 5.6 %; Neutrophils # (auto) 4.66 K/uL (1.40-6.50); Neutrophils % (auto) 60.6 %; Platelet Count 433 K/uL (130-400); RDW Standard Deviation 42.7 fL (36.4-46.3); Red Blood Count 4.63 M/uL (4.20-5.40); White Blood Count 7.69 K/ul (4.8-10.8)
[2023-08-08 20:30] LABS: Albumin Level 3.8 gm/dl (3.4-5.0); Anion Gap 9 (3-11); Bilirubin,Total 0.3 mg/dl (0.2-1.0); Calcium 9.2 mg/dl (8.6-10.3); Carbon Dioxide 30 mmol/L (21-32); Chloride 96 mmol/L (98-107); Potassium 3.3 mmol/L (3.5-5.1); Sodium 135 mmol/L (136-145)
[2023-08-08 20:36] LABS: Alanine Aminotransferase 12 U/L (7-52); Albumin Globulin Ratio 0.8 (0.9-2); Alkaline Phosphatase 103 U/L (34-104); Aspartate Aminotransferase 19 U/L (13-39); BUN Creatinine Ratio 11.8 (10-20); Blood Urea Nitrogen 12 mg/dl (6-23); Creatinine Clr Calc Pharmacy 129.4 ml/min; Est GFR (Non-African American) 70.7 ml/min; Globulin 4.6 gm/dl (2.5-4.0); Glucose 105 mg/dl (70-99(Fasting)); Lipase 38 U/L (11-82); Total Protein 8.4 gm/dl (6.0-8.3)
[2023-08-08 20:40] LABS: Troponin I High Sensitivity < 2.3 pg/ml (0-14)
[2023-08-08] MEDS: POTASSIUM CHLORIDE CRTAB 20 MEQ TABCR PO STA (21:50)
[2023-08-08] MEDS: SODIUM CHLORIDE 0.9% 500 ML IV ONE (21:50)
--- NOTE | 2023-08-09 00:07 | History & Physical Report ---
Date of Service August 09, 2023 Assessment & Plan (1) Hypotension: Plan: Suspect medication effects from diuretic medications. -Gentle IVF with LR at 80mL/hr x 1L -Hold diuretics -Monitor I/Os, daily weights -Monitor for infection (2) CHF (congestive heart failure): Plan: Apears dry on exam -Hold diuretics as above -Gentle IVF (3) Primary hypothyroidism: Plan: Chronic -Continue Synthroid (4) Left spastic hemiparesis: Plan: From prior CVA -Continue Baclofen -Continue Clonazepam -Continue Gabapentin -Continue home Methadone (5) Anxiety: Plan: Chronic -Continue Sertraline -Continue Clonazepam -Continue Trazodone F/E/N - LR at 80mL/hr, monitor electrolytes and replete as needed, heart healthy diet as tolerated Ppx - patient is on low dose Apixaban, continue Code - Full Dispo - Admit to medical History of Present Illness Chief Complaint: hypotension Primary Care Provider: Stacey Arce MD Michelle Salcido is a 37yo female with history of mitral valve endocarditis s/p bioprosthetic mitral valve replacement in June 2022, HFpEF presenting with hypotension. Patient is on three diuretics at home - Bumex and Spironolactone daily and Metolazone every other day. She presents today with low blood pressure. She was checking it at home and states that it has been 80's/40's. Also with dry cough. She thinks she has worsening bilateral LE edema as well. Stable baseline SOB. No vomiting or diarrhea On 3L home O2 continuous In the ER she is afebrile. Low blood pressure readings - of note, BP being checked on left forearm ER Course: KCL NSS Allergies Allergy/AdvReac Type Severity Reaction Status Date / Time sulfamethoxazole Allergy Severe Anaphylaxis Verified 08/08/23 21:52 [From Bactrim] trimethoprim [From Bactrim] Allergy Severe Anaphylaxis Verified 08/08/23 21:52 atorvastatin AdvReac Intermediate Muscle Pain Verified 08/08/23 21:52 Home Medications Medication Instructions Recorded Confirmed Type Wheelchair (Manual) #1 ea 03/25/22 06/30/23 Rx Hospital Bed Homecare (Hospital #1 ea 04/18/22 06/30/23 Rx Bed) Wheelchair (Manual) (Manual #1 ea 04/18/22 06/30/23 Rx Wheelchair) Lift Chair #1 ea 10/09/22 06/30/23 Rx miscellaneous medical supply #1 ea 10/16/22 06/30/23 Rx ketoconazole 2 % topical cream 1 applic topical BID 4 weeks #15 11/19/22 08/08/23 Rx grams aspirin 81 mg chewable tablet 81 mg PO DAILY 12/16/22 08/08/23 History melatonin 3 mg tablet 3 mg PO HS 12/16/22 08/08/23 History methadone 10 mg tablet 72 mg PO DAILY 12/16/22 08/08/23 History multivitamin with minerals 1 tab PO DAILY 12/16/22 08/08/23 History epinephrine 0.3 mg/0.3 mL 0.3 mg (0.3 mL) IM .COMPLEX PRN 12/26/22 08/08/23 Rx injection, auto-injector anaphylaxis #2 ea magnesium oxide 400 mg (241.3 mg 400 mg PO DAILY #30 tabs 01/08/23 08/08/23 Rx magnesium) tablet Oxygen Home E0424 #1 ea 01/26/23 06/30/23 Rx ipratropium 20 mcg-albuterol 100 1 puff inhalation TID PRN 01/26/23 08/08/23 Rx mcg/actuation mist for inhalation cough/wheezing/shortness of breath (Combivent Respimat) #1 g acetaminophen 650 mg 650 mg PO Q8H PRN fever or pain #1 02/24/23 08/08/23 Rx tablet,extended release (Tylenol 8 tab Hour) diclofenac sodium 1 % topical gel 4 g EXT QID PRN right knee pain OR 02/24/23 08/08/23 Rx (Voltaren Arthritis Pain) back pain #1 tube levothyroxine 88 mcg capsule 88 mcg PO DAILY #30 caps 02/24/23 08/08/23 Rx bumetanide 2 mg tablet 4 mg (2 x 2 mg) PO BID #120 tabs 03/06/23 08/08/23 Rx baclofen 10 mg tablet 10 mg PO BID PRN muscle 03/10/23 08/08/23 Rx stiffness/spasm #60 tabs apixaban 2.5 mg tablet 2.5 mg PO BID #60 tabs 03/19/23 08/08/23 Rx metoprolol tartrate 50 mg tablet 25 mg (1/2 x 50 mg) PO BID #30 tabs 03/19/23 08/08/23 Rx sertraline 100 mg tablet 200 mg (2 x 100 mg) PO DAILY #60 03/19/23 08/08/23 Rx tabs trazodone 50 mg tablet 50 mg PO HS #30 tabs 03/19/23 08/08/23 Rx gabapentin 600 mg tablet 600 mg PO TID #90 tabs 03/31/23 08/08/23 Rx pantoprazole 40 mg tablet,delayed 40 mg PO DAILY 05/01/23 08/08/23 History release polyethylene glycol 3350 17 gram 17 g PO DAILY PRN Constipation 05/01/23 08/08/23 History oral powder packet (Miralax) Powered Wheelchair #1 ea 05/27/23 06/30/23 Rx potassium chloride 20 mEq 40 meq (2 x 20 mEq) PO BID #120 06/05/23 08/08/23 Rx tablet,extended release tabs spironolactone 25 mg tablet 25 mg PO DAILY #30 tabs 06/30/23 08/08/23 Rx clonazepam 0.5 mg tablet 0.5 mg PO HS #30 tabs 07/28/23 08/08/23 Rx fluticasone propionate 100 1 inh inhalation BID 08/08/23 08/08/23 History mcg/actuation blister powder for inhalation metolazone 2.5 mg tablet 2.5 mg PO Q OTHER DAY 08/08/23 08/08/23 History Past Med/Surg History Medical History Tobacco dependence Hypokalemia Sleep apnea Primary hypothyroidism Hepatitis C Left spastic hemiparesis Right knee pain Cirrhosis Fatty liver ANTWAN (acute kidney injury) Back pain Hypothyroidism Acute on chronic heart failure with preserved ejection fraction (HFpEF) Snoring Iron deficiency B12 deficiency Morbid obesity Thalassemia Edema, peripheral Splenic abscess Splenomegaly Hypoxia Opioid use disorder, severe, in sustained remission on maintenance therapy Methadone MENDEZ (generalized anxiety disorder) Major depressive disorder, recurrent episode, moderate with anxious distress Chronic right arterial ischemic stroke, MCA (middle cerebral artery) Left-sided weakness Bipolar disorder History of embolic stroke Rt MCA History of stroke Drug abuse and dependence Anemia Endocarditis Anxiety PCOS (polycystic ovarian syndrome) Surgical History S/P mitral valve replacement with bioprosthetic valve (06/2022) H/O mitral valve replacement History of repair of ACL History of section History of tubal ligation Family History Grandmother (Paternal) Breast cancer Grandfather (Maternal) Myocardial infarction Graves disease Grandfather (Paternal) Myocardial infarction Other Thalassemia Denies family history of Colon cancer Ovarian cancer Prostate cancer Social History Smoking Status: Former smoker Tobacco Type: Cigarettes packs per day: 1; Second Hand Exposure: Yes; Do You Dip or Chew Tobacco: No; Hx Alcohol Use: No Hx Substance Use: Yes Last Used Substance: Days (ago) Last Used Substance Other:: "13 months ago" Substance Use Type Other:: clean for 10 months Preferred Language: Estonian Communication Ability: Effective Visual Impairment: No Limitations Hearing Ability: Normal Digital Imaging Specialist Required: No Beliefs That Will Affect Care: None marital status: Single Current Living Situation: Parent Current Living Situation Comment: Mother assists current occupational status: employed current occupation: [employer] Feels Safe at Home: Yes Childhood Exposure to Second-Hand Smoke: No Diet: regular Diet Comment: regular Dental Care, Regularly: No Physical Activity Frequency: Does not Exercise Seatbelt Use: sometimes Sunscreen Use: No Assistive Devices: Oxygen - at Night and Wheelchair Review of Systems Review of Systems: All systems reviewed & are unremarkable except as noted in HPI & below Physical Exam Physical Exam: General: morbidly obese female patient resting comfortably, NAD, non-toxic in appearance, AA&O x 4 Skin: warm, dry, intact, no rashes or lesions HEENT: NC/AT, PERRL, EOMI, anicteric sclera, conjunctiva without injection, external ear normal to inspection and nontender, nares patent, moist mucus membranes, dentition intact, no oropharyngeal lesions, neck supple, trachea mid line, no LAD, no thyromegaly, no JVD Heart: +S1/S2, regular, no m/r/g Lungs: equal air entry bilaterally, no rales/rhonchi/wheezes Abd: +BS, soft, NT/ND, no masses/organomegaly/ascites Ext: warm, 2+ pulses in UE/LE bilaterally, no clubbing/cyanosis or edema Neuro: left sided deficit from prior CVA, left facial droop Results & Data Results & Data Vital Signs (Past 12 Hours) Vital Signs Temp Pulse Pulse Resp BP BP Pulse Ox 08/08/23 23:31 70 16 84/59 L 98 08/08/23 22:10 97 08/08/23 22:09 98 08/08/23 21:28 90/60 L 08/08/23 21:27 71 17 91 08/08/23 21:27 85/55 L 08/08/23 21:20 77 19 93 08/08/23 21:13 90/60 L 08/08/23 21:13 71 13 94 08/08/23 21:04 70 18 91/68 L 97 08/08/23 18:33 92 08/08/23 18:33 36.8 C 82 14 115/69 92 08/08/23 18:31 82 O2 Del Method O2 Flow Rate 08/08/23 23:31 Room Air 08/08/23 22:10 08/08/23 22:09 08/08/23 21:28 08/08/23 21:27 08/08/23 21:27 08/08/23 21:20 08/08/23 21:13 08/08/23 21:13 Nasal Cannula 3 08/08/23 21:04 Room Air 08/08/23 18:33 Room Air 08/08/23 18:33 Room Air 08/08/23 18:31 Laboratory Results Laboratory Results WBC 7.69 K/ul (4.8-10.8) 08/08/23 20:01 RBC 4.63 M/uL (4.20-5.40) 08/08/23 20:01 Hgb 11.5 g/dl (12.0-16.0) L 08/08/23 20:01 Hct 36.7 % (37.0-47.0) L 08/08/23 20:01 MCV 79.3 fL (80.0-100.0) L 08/08/23 20:01 MCH 24.8 pg (25.0-34.0) L 08/08/23 20:01 MCHC 31.3 g/dL (32.0-36.0) L 08/08/23 20:01 RDW Std Deviation 42.7 fL (36.4-46.3) 08/08/23 20: RDW Coeff of Alexia 15.0 % (11.5-14.5) H 08/08/23 20: Plt Count 433 K/uL (130-400) H 08/08/23 20:01 MPV 9.2 fL (9.4-12.4) L 08/08/23 20: Immature Gran % (Auto) 0.4 % 08/08/23 20: Neut % (Auto) 60.6 % 08/08/23 20: Lymph % (Auto) 29.5 % 08/08/23 20:01 [place] % (Auto) 5.6 % 08/08/23 20: Eos % (Auto) 3.1 % 08/08/23 20:01 Baso % (Auto) 0.8 % 08/08/23 20:01 Neut # (Auto) 4.66 K/uL (1.40-6.50) 08/08/23 20: Lymph # (Auto) 2.27 K/uL (1.20-3.40) 08/08/23 20:01 [place] # (Auto) 0.43 K/uL (0.11-0.59) 08/08/23 20:01 Eos # (Auto) 0.24 K/uL (0.00-0.50) 08/08/23 20:01 Baso # (Auto) 0.06 K/uL (0.00-0.20) 08/08/23 20: Immature Gran # (Auto) 0.03 K/uL (0.01-0.20) 08/08/23 20:01 Sodium 135 mmol/L (136-145) L 08/08/23 20:01 Potassium 3.3 mmol/L (3.5-5.1) L 08/08/23 20:01 Chloride 96 mmol/L (98-107) L 08/08/23 20:01 Carbon Dioxide 30 mmol/L (21-32) 08/08/23 20:01 Anion Gap 9 (3-11) 08/08/23 20:01 BUN 12 mg/dl (6-23) 08/08/23 20:01 Creatinine 1.02 mg/dl (0.6-1.2) 08/08/23 20:01 Est Cr Clr Drug Dosing 129.4 ml/min 08/08/23 20:01 Est GFR ( Amer) 82.0 ml/min 08/08/23 20:01 Est GFR (Non-Af Amer) 70.7 ml/min 08/08/23 20:01 BUN/Creatinine Ratio 11.8 (10-20) 08/08/23 20:01 Glucose 105 mg/dl (70-99(Fasting)) H 08/08/23 20:01 Calcium 9.2 mg/dl (8.6-10.3) 08/08/23 20:01 Total Bilirubin 0.3 mg/dl (0.2-1.0) 08/08/23 20:01 AST 19 U/L (13-39) 08/08/23 20:01 ALT 12 U/L (7-52) 08/08/23 20:01 Alkaline Phosphatase 103 U/L (34-104) 08/08/23 20:01 Troponin I High Sens < 2.3 pg/ml (0-14) 08/08/23 20:01 B-Natriuretic Peptide 35 pg/ml (0-100) 08/08/23 20:01 Total Protein 8.4 gm/dl (6.0-8.3) H 08/08/23 20:01 Albumin 3.8 gm/dl (3.4-5.0) 08/08/23 20:01 Globulin 4.6 gm/dl (2.5-4.0) H 08/08/23 20:01 Albumin/Globulin Ratio 0.8 (0.9-2) L 08/08/23 20: Lipase 38 U/L (11-82) 08/08/23 20:01 Impressions Chest X-Ray 08/08/23 18:20 XR chest 1V portable HISTORY: Chest pain, nonspecific COMPARISON: Chest 08/06/2023. FINDINGS: No pneumothorax. No pleural effusions. There are low lung volumes. The heart remains mildly enlarged. There is mild central pulmonary vascular congestion without overt edema. There are poststernotomy changes. No acute fractures. IMPRESSION: Cardiomegaly and mild central pulmonary vascular congestion without overt edema. ACT 112: Negative or not required by law. Electronically signed by: Mauricio Matos M.D. 08/08/2023 6:48 PM Code Status & VTE Plan VTE Prophylaxis Plan VTE Prophylaxis will be ordered: Yes PG Care Time/CCT Total # of Minutes Spent Total Time Spent with Patient: Total time spent is greater than 50% in coordination of care (as documented) at patient's floor/unit and/or counseling patient: Coding Level of Care Code 87394 INT INP/OBS CARE 2/55MIN Diagnoses Hypotension I95.9 Hypotension type: unspecified hypotension type CHF (congestive heart failure) I50.9 Primary hypothyroidism E03.9 Left spastic hemiparesis G81.14 Anxiety F41.9 (1) Hypotension Hypotension type: unspecified hypotension type Qualified Code(s): I95.9 - Hypotension, unspecified
[2023-08-09] MEDS: clonazePAM 0.5 MG TAB PO STA (01:44)
[2023-08-09] MEDS: MELATONIN 3 MG TAB PO ONE (01:44)
[2023-08-09] MEDS: APIXABAN 2.5 MG TAB PO STA (01:44)
[2023-08-09] MEDS: LACTATED RINGER'S 500 ML IV ONE (01:44)
[2023-08-09] MEDS: traZODone HCL 50 MG TAB PO ONE (01:45)
[2023-08-09] MEDS ORDERED: ACETAMINOPHEN 325 MG TAB PO PRN (01:55)
[2023-08-09] MEDS ORDERED: IPRATROPIUM BROMIDE/ALBUTEROL respimat INH INH PRN (01:55)
[2023-08-09] MEDS ORDERED: ONDANSETRON INJ 2 MG/ML 2 ML VIAL IV PRN (01:55)
[2023-08-09] MEDS ORDERED: BACLOFEN 10 MG TAB PO PRN (01:55)
[2023-08-09] MEDS ORDERED: DICLOFENAC SOD 1% GEL 100 GM TUBE EXT PRN (01:55)
[2023-08-09] MEDS ORDERED: POLYETHYLENE (MIRALAX) 17 GM PACK PO PRN (01:55)
[2023-08-09] MEDS: LACTATED RINGER'S 1,000 ML IV SCH (02:24)
[2023-08-09] MEDS: LEVOTHYROXINE SODIUM 88 MCG TABLET PO SCH (07:13)
[2023-08-09] MEDS ORDERED: PATIENT'S OWN CONTROLLED MED 1 PO PRN (07:30)
[2023-08-09] MEDS: APIXABAN 2.5 MG TAB PO SCH (08:04)
[2023-08-09] MEDS: ASPIRIN 81 MG CHEW PO SCH (08:04)
[2023-08-09] MEDS: PANTOprazole 40 MG TAB PO SCH (08:04)
[2023-08-09] MEDS: GABAPENTIN 600 MG TAB PO SCH (08:04)
[2023-08-09] MEDS: SERTRALINE HCL 100 MG TABLET PO SCH (08:05)
[2023-08-09] MEDS: POTASSIUM CHLORIDE CRTAB 20 MEQ TABCR PO SCH (08:05)
[2023-08-09] MEDS: FLUTICASONE FUROATE 100MCG 14 PUFFS/INHALER INH SCH (08:06)
[2023-08-09] MEDS: METHADONE ORAL SOLN 2 MG/ML PO SCH (13:32)
--- NOTE | 2023-08-09 15:44 | History & Physical Bridge Note ---
Date of Service August 09, 2023 History & Physical Bridge Note I have examined the patient, reviewed the History & Physical and in the interval since the performance of the History & Physical I have noted the following changes of clinical significance: Pt feeling better, less lethargic, not SOB. Had trouble getting blood drawn this AM and now feels she is ready to dry again-hard stick Vitals reviewed Obese, anasarca RRR no mgr diminished BS at bases, clear to auscultation Ext 3+ pitting edema in all four ext Skin no rashes Neuro LUE and LLE weakness 37 yo female here with hypotension and likely from overdiuresis continue to hold diuretics for now, reassess tomorrow received 1 L IVFs follow up BMP
--- NOTE | 2023-08-09 17:12 | Electrocardiogram Report ---
Test Reason : Blood Pressure : / mmHG Vent. Rate : 083 BPM Atrial Rate : 083 BPM P-R Int : 160 ms QRS Dur : 090 ms QT Int : 420 ms P-R-T Axes : 048 029 021 degrees QTc Int : 493 ms Normal sinus rhythm Nonspecific ST and T wave abnormality Abnormal ECG When compared with ECG of 06-AUG-2023 12:22, Minimal criteria for Anterior infarct are no longer Present Nonspecific T wave abnormality no longer evident in Lateral leads Confirmed by Chapo Austin ([id number]) on 08/09/2023 5:11:37 PM Referred By: Stacey Arce Confirmed By:Chapo Austin
[2023-08-09 18:05] LABS: Calcium 8.9 mg/dl (8.6-10.3); Magnesium 2.2 mg/dl (1.7-2.4); Potassium 4.3 mmol/L (3.5-5.1)
[2023-08-09 18:12] LABS: BUN Creatinine Ratio 13.5 (10-20); Creatinine Clr Calc Pharmacy 148.3 ml/min; Est GFR (African American) 96.6 ml/min; Est GFR (Non-African American) 83.4 ml/min
[2023-08-09] MEDS: MELATONIN 3 MG TAB PO SCH (20:32)
[2023-08-09] MEDS: clonazePAM 0.5 MG TAB PO SCH (20:32)
[2023-08-09] MEDS: traZODone HCL 50 MG TAB PO SCH (20:34)
[2023-08-10 09:44] LABS: Basophils # (auto) 0.04 K/uL (0.00-0.20); Basophils % (auto) 0.6 %; Eosinophils # (auto) 0.31 K/uL (0.00-0.50); Eosinophils % (auto) 4.3 %; Hematocrit (blood only) 36.4 % (37.0-47.0); Hemoglobin 10.9 g/dl (12.0-16.0); Immature Granulocytes # (auto) 0.02 K/uL (0.01-0.20); Immature Granulocytes % (auto) 0.3 %; Lymphocytes # (auto) 2.06 K/uL (1.20-3.40); Lymphocytes % (auto) 28.5 %; Mean Corpuscular Hemoglobin 24.7 pg (25.0-34.0); Mean Corpuscular Hgb Conc 29.9 g/dL (32.0-36.0); Mean Corpuscular Volume 82.4 fL (80.0-100.0); Mean Platelet Volume 8.9 fL (9.4-12.4); Monocytes # (auto) 0.33 K/uL (0.11-0.59); Monocytes % (auto) 4.6 %; Neutrophils # (auto) 4.47 K/uL (1.40-6.50); Neutrophils % (auto) 61.7 %; Platelet Count 434 K/uL (130-400); RDW Coefficient of Variation 14.8 % (11.5-14.5); RDW Standard Deviation 44.6 fL (36.4-46.3); Red Blood Count 4.42 M/uL (4.20-5.40); White Blood Count 7.23 K/ul (4.8-10.8)
[2023-08-10 09:59] LABS: BUN Creatinine Ratio 12.2 (10-20); Calcium 9.2 mg/dl (8.6-10.3); Est GFR (African American) 95.3 ml/min; Est GFR (Non-African American) 82.3 ml/min; Magnesium 2.1 mg/dl (1.7-2.4); Potassium 3.6 mmol/L (3.5-5.1)
[2023-08-10] MEDS: MAGNESIUM OXIDE 400 MG TAB PO SCH (10:12)
[2023-08-10] MEDS: METOPROLOL TARTRATE 50 MG TAB PO SCH (10:12)
[2023-08-10] MEDS: BUMETANIDE 1 MG TAB PO SCH (10:12)
--- NOTE | 2023-08-10 14:21 | Discharge Summary ---
Discharge Summary Date of Service August 10, 2023 Notes For Next Care Provider Needs close f/u with CHF clinic Medication Changes From Visit Decreased metoprolol to 12.5mg po bid HOLD metolazone Admission HPI Per Admitting Provider Michelle Salcido is a 37yo female with history of mitral valve endocarditis s/p bioprosthetic mitral valve replacement in June 2022, HFpEF presenting with hypotension. Patient is on three diuretics at home - Bumex and Spironolactone daily and Metolazone every other day. She presents today with low blood pressure. She was checking it at home and states that it has been 80's/40's. Also with dry cough. She thinks she has worsening bilateral LE edema as well. Stable baseline SOB. No vomiting or diarrhea On 3L home O2 continuous In the ER she is afebrile. Low blood pressure readings - of note, BP being checked on left forearm ER Course: [facility] Principal Dx & Hospital Course #1 = Principal Diagnosis (1) Hypotension: BPs 80s/40s at home and in ER, felt very weak and lethargic Suspect medication effects from diuretic medications. No evidence of sepsis or infection Was admitted and was gentle IVF with LR at 80mL/hr x 1L, had all diuretics held for one day Volume status difficult due to anasarca but intravascular volume depletion BPs improved to her baseline 90s/50s Resumed Bumex 4mg po bid dose and lowered metoprolol dose to 12.5mg po bid Ok to resume aldactone the day after discharge but advised to HOLD metolazone un til further notice follow BPs and weights at home f/u with CHF clinic-,shankar sent to [facility] [place] as she was discharged over the weekend. (2) CHF (congestive heart failure): Chronic HFpEF med changes as above f/u with CHF clinic (3) Primary hypothyroidism: Chronic -Continue Synthroid TSH recently normal (4) Left spastic hemiparesis: From prior CVA -Continue Baclofen -Continue Clonazepam -Continue Gabapentin (5) Anxiety: Chronic -Continue Sertraline -Continue Clonazepam -Continue Trazodone (6) Hypokalemia: replaced (7) Anemia: hgb slowly trending downward, MCV low has a h/o thalassemia and also Fe deficiency with likely reactive thrombocytosis to iron deficiency recommend outpt f/u with PCP and Fe testing, may need repeat IV iron infusions recommend celiac testing and GI follow up (8) Drug abuse in remission: continue methadone Plan Dispo-dc to home Discharge Exam Constitutional WD/WN, vitals as above + obese Respiratory no labored breathing diminished throughout due to body habitus Cardiovascular Rate/Rhythm: regular rate and regular rhythm Extremities: + edema (3+ pitting edema all extremities) Chest (Breasts) Chest: normal inspection of chest Gastrointestinal (Abdomen) normal bowel sounds, soft, nontender, no hepatosplenomegaly Skin no rashes, warm and dry Neurologic LUE 3/5 strength Psychiatric A+Ox3, euthymic affect Updated Medication List Medication Instructions Recorded Confirmed Type Wheelchair (Manual) #1 ea 03/25/22 06/30/23 Rx Hospital Bed Homecare (Hospital #1 ea 04/18/22 06/30/23 Rx Bed) Wheelchair (Manual) (Manual #1 ea 04/18/22 06/30/23 Rx Wheelchair) Lift Chair #1 ea 10/09/22 06/30/23 Rx miscellaneous medical supply #1 ea 10/16/22 06/30/23 Rx ketoconazole 2 % topical cream 1 applic topical BID 4 weeks #15 11/19/22 08/08/23 Rx grams aspirin 81 mg chewable tablet 81 mg PO DAILY 12/16/22 08/08/23 History melatonin 3 mg tablet 3 mg PO HS 12/16/22 08/08/23 History methadone 10 mg tablet 72 mg PO DAILY 12/16/22 08/08/23 History multivitamin with minerals 1 tab PO DAILY 12/16/22 08/08/23 History epinephrine 0.3 mg/0.3 mL 0.3 mg (0.3 mL) IM .COMPLEX PRN 12/26/22 08/08/23 Rx injection, auto-injector anaphylaxis #2 ea magnesium oxide 400 mg (241.3 mg 400 mg PO DAILY #30 tabs 01/08/23 08/08/23 Rx magnesium) tablet Oxygen Home E0424 #1 ea 01/26/23 06/30/23 Rx ipratropium 20 mcg-albuterol 100 1 puff inhalation TID PRN 01/26/23 08/08/23 Rx mcg/actuation mist for inhalation cough/wheezing/shortness of breath (Combivent Respimat) #1 g acetaminophen 650 mg 650 mg PO Q8H PRN fever or pain #1 02/24/23 08/08/23 Rx tablet,extended release (Tylenol 8 tab Hour) diclofenac sodium 1 % topical gel 4 g EXT QID PRN right knee pain OR 02/24/23 08/08/23 Rx (Voltaren Arthritis Pain) back pain #1 tube levothyroxine 88 mcg capsule 88 mcg PO DAILY #30 caps 02/24/23 08/08/23 Rx bumetanide 2 mg tablet 4 mg (2 x 2 mg) PO BID #120 tabs 03/06/23 08/08/23 Rx baclofen 10 mg tablet 10 mg PO BID PRN muscle 03/10/23 08/08/23 Rx stiffness/spasm #60 tabs apixaban 2.5 mg tablet 2.5 mg PO BID #60 tabs 03/19/23 08/08/23 Rx metoprolol tartrate 50 mg tablet 25 mg (1/2 x 50 mg) PO BID #30 tabs 03/19/23 08/08/23 Rx sertraline 100 mg tablet 200 mg (2 x 100 mg) PO DAILY #60 03/19/23 08/08/23 Rx tabs trazodone 50 mg tablet 50 mg PO HS #30 tabs 03/19/23 08/08/23 Rx gabapentin 600 mg tablet 600 mg PO TID #90 tabs 03/31/23 08/08/23 Rx pantoprazole 40 mg tablet,delayed 40 mg PO DAILY 05/01/23 08/08/23 History release polyethylene glycol 3350 17 gram 17 g PO DAILY PRN Constipation 05/01/23 08/08/23 History oral powder packet (Miralax) Powered Wheelchair #1 ea 05/27/23 06/30/23 Rx potassium chloride 20 mEq 40 meq (2 x 20 mEq) PO BID #120 06/05/23 08/08/23 Rx tablet,extended release tabs spironolactone 25 mg tablet 25 mg PO DAILY #30 tabs 06/30/23 08/08/23 Rx clonazepam 0.5 mg tablet 0.5 mg PO HS #30 tabs 07/28/23 08/08/23 Rx fluticasone propionate 100 1 inh inhalation BID 08/08/23 08/08/23 History mcg/actuation blister powder for inhalation metolazone 2.5 mg tablet 2.5 mg PO Q OTHER DAY 08/08/23 08/08/23 History metoprolol tartrate 25 mg tablet 12.5 mg (1/2 x 25 mg) PO BID #30 08/10/23 Rx tabs Hospital Stay Data Consultations 08/08/23 21:37 ED Decision to Admit Stat Pending Results Patient Have Any Pending Studies at Discharge: No Discharge Instructions Given to Patient (Per Discharging Provider) You were admitted with low blood pressures likely from too much diuresis. You were given 1 liter of fluids and had improvement. You can resume your bumex and spironolactone, but remain off your metolazone for now. I have notified Ms. Margie Kira of the CHF clinic and she should be in touch with you to help determine when to put you back on the metolazone. I also lowered your metoprolol dose to 12.5mg twice a day. Total Time Total Time Spent Total Time Spent (In Minutes): 35 min Coding Level of Care Code 59150 INP/OBS DISCH >30 MIN Diagnoses Hypotension I95.9 Hypotension type: unspecified hypotension type CHF (congestive heart failure) I50.9 Primary hypothyroidism E03.9 Left spastic hemiparesis G81.14 Anxiety F41.9 Hypokalemia E87.6 Anemia D64.9 Anemia type: unspecified type Drug abuse in remission F19.11
== END 2023-08-10 15:31 | disposition home or self-care (01) ==
LOC: ED 18:12 → INTOOBSV 08-09 00:06 → SUATTDRO 08-09 00:06 → EDINP 08-09 00:06 → 2N 08-09 02:00

== ENCOUNTER 2023-09-24 11:04 | Inpatient (IN) ==
--- NOTE | 2023-09-24 12:00 | Emergency Department Note ---
Impression & Plan Shortness of breath, Failure of outpatient treatment ED Provider Note ED Provider Note NAME: TWILA RADER AGE:38 SEX: Female : 1985 ARRIVES VIA: EMS INFORMANT: Patient ED PROVIDER(s): Sol Bradley DO CHIEF COMPLAINT: Increased shortness of breath, "feeling up with fluid" HPI: This is a 38-year-old female who presents emerged department due to concern for increased shortness of breath and "filling up with fluid. 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 She states she has been clean for approximately 3 years. She states she does wear 4 L/min of oxygen at home chronically. She states she has had a worsening cough over the course of the last month. She states she did see Dr. Tovar and Emy Malone at the CHF clinic last week. She states her metolazone was increased from twice a week to every other day. No other changes to her diuretics or other medications. She states she is taking her medications as prescribed. She denies any known sick contacts. She states her cough is intermittently productive of dark green sputum. She denies fevers or chills. PAST MEDICAL HISTORY:See Below PAST SURGICAL HISTORY:See Below FAMILY HISTORY:See Below SOCIAL HISTORY:See Below HOME MEDICATIONS:See Below ALLERGIES:See Below VITALS:See Below PHYSICAL EXAMINATION: GENERAL: alert, unwell appearing, well nourished, no distress, non-toxic, BMI 63, NC in place EYE EXAM: normal conjunctiva, PERRL and EOM's grossly intact OROPHARYNX: no exudate, no erythema, lips, buccal mucosa, and tongue normal and mucous membranes are moist NECK: supple, no nuchal rigidity, no adenopathy, non-tender LUNGS: Decreased to auscultation. Normal chest wall mechanics, no w/r/r HEART: no murmurs, S1 normal and S2 normal, midline sternotomy scar noted ABDOMEN: abdomen soft, non-tender, normo-active bowel sounds, no masses, no rebound or guarding. BACK: Back is symmetrical on inspection and there is no deformity, no midline tenderness, no CVA tenderness. SKIN: no rashes, petechiae, orbruising UPPER EXTREMITIES: upper extremities are grossly normal. FROM, nml pulses b/l. LOWER EXTREMITIES: No pitting edema. FROM, nml pulses b/l. NEURO EXAM: Normal sensorium, cranial nerves II-XII grossly intact, normal speech, no facial droop,nogross weakness of arms, no gross weakness of legs. Gross sensation intact. No ataxia. Vital Signs: reviewed and remarkable Differential Diagnosis: pneumonia, bronchitis, COPD/Asthma exacerbation, pneumothorax, pulmonary embolism, congestive heart failure, acute coronary syndrome, as well as others were considered MEDICAL DECISION MAKING: This is a 38-year-old female who presents emergency department due to concern for increased shortness of breath. Patient with significant cardiac history, wears oxygen daily, follows with the CHF clinic, does perform home weights, and is on daily diuretics. Patient voices worsening symptoms despite recent cardiology visit and adjustment to one of her diuretics. She was afebrile vital signs stable on arrival. She was maintaining her oxygen saturation on 6 L/min via nasal cannula which is increased from her usual for per her report. Labs drawn and sent, IV established, EKG and chest ray performed bedside interpreted by me and patient monitored on telemetry. There was some difficulty obtaining blood work due to difficult IV access. Case discussed with [facility] cardiology and additional IV Bumex was given per their recommendation. Case discussed with [facility] hospitalist team for additional evaluation and management. No evidence at this time for evolving pneumonia or URI. Given timeframe of which symptoms have slowly evolved, I suspect PE less likely, patient also takes aspirin and low-dose apixaban daily. Patient does admit to ongoing vaping use, and history of smoking. Consultation(s): 1555: Discussed with Dr. Ortez, [facility] hospitalist team, for additional evaluation and management 1557: Discussed with Dr. Austin, [facility] cardiology. ER Treatment Provided: See below Diagnostics Interpreted By Me: -ECG: Normal sinus at 76, normal axis, normal QRS, prolonged QTc, nonspecific ST/T wave changes -Cardiac Monitoring: An order was placed for continuous cardiac monitoring. The monitor shows a rate of 72 with normal sinus rhythm. -Laboratory studies: As stated above and show below. -Imaging studies: X-ray Chest: A single view study of the chest was reviewed and was negative for focal infiltrate, effusion, or wide mediastinum. Sternotomy wires noted, positive cardiomegaly, possible bilateral evolving edema Triage Nursing Note Reviewed Prior/Outside Records Reviewed -prior cardiology visit reviewed Past Med/Surg History Medical History (Updated 09/24/23 @ 21:04 by Sol Bradley DO) Acute on chronic heart failure with preserved ejection fraction (HFpEF) Tobacco dependence Sleep apnea Primary hypothyroidism Hepatitis C Left spastic hemiparesis Right knee pain Cirrhosis Fatty liver ANTWAN (acute kidney injury) Back pain Hypothyroidism Snoring Iron deficiency B12 deficiency Morbid obesity Thalassemia Edema, peripheral Splenic abscess Splenomegaly Hypoxia Opioid use disorder, severe, in sustained remission on maintenance therapy Methadone MENDEZ (generalized anxiety disorder) Major depressive disorder, recurrent episode, moderate with anxious distress Chronic right arterial ischemic stroke, MCA (middle cerebral artery) Left-sided weakness Bipolar disorder History of embolic stroke Rt MCA History of stroke Drug abuse and dependence Anemia Endocarditis Anxiety PCOS (polycystic ovarian syndrome) Surgical History S/P mitral valve replacement with bioprosthetic valve (06/2022) H/O mitral valve replacement History of repair of ACL History of section History of tubal ligation Family History Grandmother (Paternal) Breast cancer Grandfather (Maternal) Myocardial infarction Graves disease Grandfather (Paternal) Myocardial infarction Other Thalassemia Denies family history of Colon cancer Ovarian cancer Prostate cancer Social History Smoking Status: Former smoker Tobacco Type: Cigarettes packs per day: 1; Second Hand Exposure: No; Do You Dip or Chew Tobacco: No; Tobacco Cessation Education Requested by Patient: No Hx Alcohol Use: No Hx Substance Use: No Preferred Language: Ukrainian Communication Ability: Effective Visual Impairment: No Limitations Hearing Ability: Normal [employer] Operator Required: No Beliefs That Will Affect Care: None marital status: Single Current Living Situation: Family Current Living Situation Comment: home with daughter and mom 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 Other Information That Helps Us Care for You: No Feels Safe at Home: Yes Safety Concerns: Feels Safe At This Time Childhood Exposure to Second-Hand Smoke: No Diet: regular Diet Comment: regular Dental Care, Regularly: No Physical Activity Frequency: Does not Exercise Seatbelt Use: sometimes Sunscreen Use: No Assistive Devices: Oxygen - Continuous and Wheelchair Allergies Allergies Allergy/AdvReac Type Severity Reaction Status Date / Time sulfamethoxazole Allergy Severe Anaphylaxis Verified 08/26/23 13:34 [From Bactrim] trimethoprim [From Bactrim] Allergy Severe Anaphylaxis Verified 08/26/23 13:34 atorvastatin AdvReac Intermediate Muscle Pain Verified 08/26/23 13:34 Home Meds Home Medications Medication Instructions Recorded Confirmed aspirin 81 mg chewable tablet 81 mg PO QAM 12/16/22 09/24/23 melatonin 3 mg tablet 3 mg PO HS 12/16/22 09/24/23 methadone 10 mg tablet 72 mg PO QAM 12/16/22 09/24/23 multivitamin with minerals 1 tab PO QAM 12/16/22 09/24/23 polyethylene glycol 3350 17 gram 17 g PO DAILY PRN Constipation 05/01/23 09/24/23 oral powder packet (Miralax) fluticasone propionate 100 1 inh inhalation BID 08/08/23 09/24/23 mcg/actuation blister powder for inhalation metolazone 2.5 mg tablet 2.5 mg PO Q OTHER DAY 08/08/23 09/24/23 levothyroxine 75 mcg tablet 75 mcg PO DAILYBB 09/24/23 09/24/23 magnesium oxide 400 mg (241.3 mg 400 mg PO HS 09/24/23 09/24/23 magnesium) tablet metoprolol tartrate 50 mg tablet 25 mg PO BID 09/24/23 09/24/23 pantoprazole 40 mg tablet,delayed 40 mg PO [facility] 09/24/23 09/24/23 release sertraline 100 mg tablet 200 mg PO QA 09/24/23 09/24/23 spironolactone 25 mg tablet 25 mg PO QAM 09/24/23 09/24/23 Previous Rx's Medication Instructions Recorded Wheelchair (Manual) #1 ea 03/25/22 Hospital Bed Homecare (Hospital #1 ea 04/18/22 Bed) Wheelchair (Manual) (Manual #1 ea 04/18/22 Wheelchair) Lift Chair #1 ea 10/09/22 miscellaneous medical supply #1 ea 10/16/22 ketoconazole 2 % topical cream 1 applic topical BID 4 weeks #15 11/19/22 grams epinephrine 0.3 mg/0.3 mL 0.3 mg (0.3 mL) IM .COMPLEX PRN 12/26/22 injection, auto-injector anaphylaxis #2 ea Oxygen Home [id number] #1 ea 01/26/23 acetaminophen 650 mg 650 mg PO Q8H PRN fever or pain #1 02/24/23 tablet,extended release (Tylenol 8 tab Hour) diclofenac sodium 1 % topical gel 4 g EXT QID PRN right knee pain OR 02/24/23 (Voltaren Arthritis Pain) back pain #1 tube bumetanide 2 mg tablet 4 mg (2 x 2 mg) PO BID #120 tabs 03/06/23 gabapentin 600 mg tablet 600 mg PO TID #90 tabs 03/31/23 Powered Wheelchair #1 ea 05/27/23 potassium chloride 20 mEq 40 meq (2 x 20 mEq) PO BID #120 06/05/23 tablet,extended release tabs clonazepam 0.5 mg tablet 0.5 mg PO HS #30 tabs 09/01/23 apixaban 2.5 mg tablet 2.5 mg PO BID #60 tabs 09/09/23 baclofen 10 mg tablet 10 mg PO BID PRN muscle 09/19/23 stiffness/spasm #60 tabs trazodone 50 mg tablet 50 mg PO HS #30 tabs 09/19/23 Results & Data (ED) Vital Signs Vital Signs - 24 hr 09/24/23 11:18 09/24/23 11:30 09/24/23 12:00 Temperature 37.1 C Temperature Source Oral Pulse Rate 77 72 71 Pulse Rate from SpO2 Sensor 71 Respiratory Rate 17 13 13 Respiratory Effort / Characteristics Short of Breath Respiratory Depth Normal Respiratory Pattern Regular Blood Pressure 120/70 120/70 Blood Pressure Mean 86 86 Pulse Oximetry 96 97 96 Oxygen Delivery Method Nasal Cannula Nasal Cannula Oxygen Flow Rate 5 6 Sepsis Recent Fever Within 48 Hours No Sepsis New/Unexplained Change in Mental Status No Sepsis Action Taken by Nursing No Action Required Pulse Oximetry Post Tiitration 09/24/23 12:02 09/24/23 12:13 09/24/23 12:30 Temperature Temperature Source Pulse Rate 69 69 Pulse Rate from SpO2 Sensor 69 Respiratory Rate 16 Respiratory Effort / Characteristics Respiratory Depth Respiratory Pattern Blood Pressure Blood Pressure Mean Pulse Oximetry 90 97 Oxygen Delivery Method Nasal Cannula Nasal Cannula Oxygen Flow Rate 6 6 Sepsis Recent Fever Within 48 Hours Sepsis New/Unexplained Change in Mental Status Sepsis Action Taken by Nursing Pulse Oximetry Post Tiitration 96 04/03/24 13:00 09/24/23 13:30 09/24/23 14:00 Temperature Temperature Source Pulse Rate 69 68 72 Pulse Rate from SpO2 Sensor 69 68 73 Respiratory Rate 14 12 20 Respiratory Effort / Characteristics Respiratory Depth Respiratory Pattern Blood Pressure 118/68 116/80 Blood Pressure Mean 84 92 Pulse Oximetry 97 97 98 Oxygen Delivery Method Nasal Cannula Nasal Cannula Nasal Cannula Oxygen Flow Rate 6 6 5 Sepsis Recent Fever Within 48 Hours Sepsis New/Unexplained Change in Mental Status Sepsis Action Taken by Nursing Pulse Oximetry Post Tiitration 09/24/23 14:30 09/24/23 15:00 09/24/23 15:00 Temperature Temperature Source Pulse Rate 75 70 Pulse Rate from SpO2 Sensor 77 71 Respiratory Rate 14 12 Respiratory Effort / Characteristics Respiratory Depth Respiratory Pattern Blood Pressure 93/76 L Blood Pressure Mean 78 Pulse Oximetry 99 98 Oxygen Delivery Method Nasal Cannula Oxygen Flow Rate 5 Sepsis Recent Fever Within 48 Hours Sepsis New/Unexplained Change in Mental Status Sepsis Action Taken by Nursing Pulse Oximetry Post Tiitration 09/24/23 15:30 09/24/23 15:30 09/24/23 16:00 Temperature Temperature Source Pulse Rate 74 76 Pulse Rate from SpO2 Sensor 75 76 Respiratory Rate 14 Respiratory Effort / Characteristics Respiratory Depth Respiratory Pattern Blood Pressure 129/85 Blood Pressure Mean 103 Pulse Oximetry 99 98 Oxygen Delivery Method Oxygen Flow Rate Sepsis Recent Fever Within 48 Hours Sepsis New/Unexplained Change in Mental Status Sepsis Action Taken by Nursing Pulse Oximetry Post Tiitration 09/24/23 16:01 09/24/23 16:01 09/24/23 16:17 Temperature Temperature Source Pulse Rate 77 73 Pulse Rate from SpO2 Sensor 78 Respiratory Rate 15 Respiratory Effort / Characteristics Respiratory Depth Respiratory Pattern Blood Pressure 144/99 H Blood Pressure Mean 119 Pulse Oximetry 97 Oxygen Delivery Method Oxygen Flow Rate Sepsis Recent Fever Within 48 Hours Sepsis New/Unexplained Change in Mental Status Sepsis Action Taken by Nursing Pulse Oximetry Post Tiitration 09/24/23 16:30 Temperature Temperature Source Pulse Rate 75 Pulse Rate from SpO2 Sensor 75 Respiratory Rate 14 Respiratory Effort / Characteristics Respiratory Depth Respiratory Pattern Blood Pressure Blood Pressure Mean Pulse Oximetry 97 Oxygen Delivery Method Oxygen Flow Rate Sepsis Recent Fever Within 48 Hours Sepsis New/Unexplained Change in Mental Status Sepsis Action Taken by Nursing Pulse Oximetry Post Tiitration Laboratory Data 09/24/23 13:08 09/24/23 13:08 Lab Results 09/24/23 09/24/23 09/24/23 Range/Units 11:58 13:08 16:31 WBC 8.28 (4.8-10.8) K/ul RBC 4.55 (4.20-5.40) M/uL Hgb 10.9 L (12.0-16.0) g/dl Hct 35.0 L (37.0-47.0) % MCV 76.9 L (80.0-100.0) fL MCH 24.0 L (25.0-34.0) pg MCHC 31.1 L (32.0-36.0) g/dL RDW Std Deviation 39.6 (36.4-46.3) fL RDW Coeff of Alexia 14.3 (11.5-14.5) % Plt Count 510 H (130-400) K/uL MPV 9.2 L (9.4-12.4) fL Immature Gran % (Auto) 0.4 % Neut % (Auto) 71.9 % Lymph % (Auto) 17.9 % [place] % (Auto) 6.3 % Eos % (Auto) 2.7 % Baso % (Auto) 0.8 % Neut # (Auto) 5.96 (1.40-6.50) K/uL Lymph # (Auto) 1.48 (1.20-3.40) K/uL [place] # (Auto) 0.52 (0.11-0.59) K/uL Eos # (Auto) 0.22 (0.00-0.50) K/uL Baso # (Auto) 0.07 (0.00-0.20) K/uL Immature Gran # (Auto) 0.03 (0.01-0.20) K/uL PT 10.9 (9.0-12.0) Seconds INR 1.0 (0.9-1.1) Sodium 135 L (136-145) mmol/L Potassium 3.0 L (3.5-5.1) mmol/L Chloride 91 L (98-107) mmol/L Carbon Dioxide 36 H (21-32) mmol/L Anion Gap 8 (3-11) BUN 10 (6-23) mg/dl Creatinine 0.84 (0.6-1.2) mg/dl Est Cr Clr Drug Dosing 160.5 ml/min Est GFR ( Amer) 102.9 ml/min Est GFR (Non-Af Amer) 88.8 ml/min BUN/Creatinine Ratio 11.9 (10-20) Glucose 113 H (70-99(Fasting)) mg/dl Calcium 9.4 (8.6-10.3) mg/dl Magnesium 1.8 (1.7-2.4) mg/dl Total Bilirubin 0.3 (0.2-1.0) mg/dl AST 26 (13-39) U/L ALT 21 (7-52) U/L Alkaline Phosphatase 103 (34-104) U/L Troponin I High Sens 2.7 (0-14) pg/ml B-Natriuretic Peptide 39 (0-100) pg/ml Total Protein 8.6 H (6.0-8.3) gm/dl Albumin 3.9 (3.4-5.0) gm/dl Globulin 4.7 H (2.5-4.0) gm/dl Albumin/Globulin Ratio 0.8 L (0.9-2) Lipase 29 (11-82) U/L Procalcitonin < 0.02 (0-0.5) ng/ml TSH 2.000 (0.300-4.500) uIu/ml Adenovirus (PCR) Not Detected (NotDetected) B. pertussis DNA (PCR) Not Detected (NotDetected) B.parapertussis DNA PCR Not Detected (NotDetected) C. pneumoniae DNA (PCR) Not Detected (NotDetected) Coronavirus OC43 (PCR) Not Detected (NotDetected) Coronavirus HKU1 (PCR) Not Detected (NotDetected) Coronavirus 229E (PCR) Not Detected (NotDetected) SARS-CoV-2 (PCR) Not Detected (NotDetected) Coronavirus NL63 (PCR) Not Detected (NotDetected) Human Metapneumovir PCR Not Detected (NotDetected) Influenza Type A (PCR) Not Detected (NotDetected) Influenza Type B (PCR) Not Detected (NotDetected) M. pneumoniae (PCR) Not Detected (NotDetected) Parainfluenza 1 (PCR) Not Detected (NotDetected) Parainfluenza 2 (PCR) Not Detected (NotDetected) Parainfluenza 3 (PCR) Not Detected (NotDetected) Parainfluenza 4 (PCR) Not Detected (NotDetected) RSV (PCR) Not Detected (NotDetected) Entero/Rhino (PCR) Not Detected (NotDetected) Administered Medications Discontinued Medications Bumetanide 2 mg/ Syringe 8 mls @ 4 mls/min IV ONE ONE Stop: 09/24/23 15:56 Last Admin: 09/24/23 16:39 Dose: 4 mls/min Documented By: LIYAH Potassium Chloride (Potassium Chloride Crtab 20 Meq Tabcr) 40 meq PO NOW STA Stop: 09/24/23 14:33 Last Admin: 09/24/23 14:47 Dose: 40 meq Documented By: CECILIO Imaging Data Radiologist's Impression: Chest X-Ray 09/24/23 11:56 XR chest 1V portable CLINICAL HISTORY: sob, cough TECHNIQUE: Single frontal radiograph of the chest was obtained. Comparison: Comparison is made to chest radiograph 08/08/2023 FINDINGS: Median sternotomy wires are unchanged. Cardiomegaly is noted. Atelectasis is seen in the right midlung. No evidence of pleural effusion or pneumothorax. IMPRESSION: No acute abnormalities and in particular no radiographic evidence of pneumonia. ACT 112: Negative or not required by law. Electronically signed by: Hiro Santoyo M.D. 09/24/2023 12:26 PM Discharge Plan Visit Data Chief Complaint: Shortness of Breath/Dyspnea Stated Complaint: SOB, EDEMA, HYPOTENSION ED Provider: Sol Bradley Discharge Problem: Shortness of breath, Failure of outpatient treatment Patient Disposition: Admitted As Inpatient Discharge Instructions Interventions: ED Discharge Assessment Last Done: 09/24/23 17:13
--- NOTE | 2023-09-24 12:27 | XRay Report ---
XR chest 1V portable CLINICAL HISTORY: sob, cough TECHNIQUE: Single frontal radiograph of the chest was obtained. Comparison: Comparison is made to chest radiograph 08/08/2023 FINDINGS: Median sternotomy wires are unchanged. Cardiomegaly is noted. Atelectasis is seen in the right midlun g. No evidence of pleural effusion or pneumothorax. IMPRESSION: No acute abnormalities and in particular no radiographic evidence of pneumonia. ACT 112: Negative or not required by law. Electronically signed by: Hiro Santoyo M.D. 09/24/2023 12:26 PM
[2023-09-24 13:01] LABS: Adenovirus PCR Not Detected (NotDetected); Bordetella parapertussis PCR Not Detected (NotDetected); Bordetella pertussis PCR Not Detected (NotDetected); Chlamydia pneumoniae PCR Not Detected (NotDetected); Coronavirus 229E PCR Not Detected (NotDetected); Coronavirus CoV-2 (COVID19)PCR Not Detected (NotDetected); Coronavirus HKU1 PCR Not Detected (NotDetected); Coronavirus NL63 PCR Not Detected (NotDetected); Coronavirus OC43PCR Not Detected (NotDetected); Human Metapneumovirus PCR Not Detected (NotDetected); Influenza A PCR Not Detected (NotDetected); Influenza B PCR Not Detected (NotDetected); Mycoplasma pneumoniae PCR Not Detected (NotDetected); Parainfluenza Virus 1 PCR Not Detected (NotDetected); Parainfluenza Virus 2 PCR Not Detected (NotDetected); Parainfluenza Virus 3 PCR Not Detected (NotDetected); Parainfluenza Virus 4 PCR Not Detected (NotDetected); Respiratory Syncytial VirusPCR Not Detected (NotDetected); Rhinovirus/Enterovirus PCR Not Detected (NotDetected)
[2023-09-24 13:35] LABS: Basophils # (auto) 0.07 K/uL (0.00-0.20); Basophils % (auto) 0.8 %; Eosinophils # (auto) 0.22 K/uL (0.00-0.50); Eosinophils % (auto) 2.7 %; Hemoglobin 10.9 g/dl (12.0-16.0); Immature Granulocytes # (auto) 0.03 K/uL (0.01-0.20); Immature Granulocytes % (auto) 0.4 %; Lymphocytes # (auto) 1.48 K/uL (1.20-3.40); Lymphocytes % (auto) 17.9 %; Mean Corpuscular Hgb Conc 31.1 g/dL (32.0-36.0); Mean Corpuscular Volume 76.9 fL (80.0-100.0); Mean Platelet Volume 9.2 fL (9.4-12.4); Monocytes # (auto) 0.52 K/uL (0.11-0.59); Monocytes % (auto) 6.3 %; Neutrophils # (auto) 5.96 K/uL (1.40-6.50); Neutrophils % (auto) 71.9 %; Platelet Count 510 K/uL (130-400); RDW Coefficient of Variation 14.3 % (11.5-14.5); RDW Standard Deviation 39.6 fL (36.4-46.3); Red Blood Count 4.55 M/uL (4.20-5.40); White Blood Count 8.28 K/ul (4.8-10.8)
[2023-09-24 13:42] LABS: Prothrombin Time 10.9 Seconds (9.0-12.0)
[2023-09-24 13:47] LABS: Albumin Globulin Ratio 0.8 (0.9-2); Albumin Level 3.9 gm/dl (3.4-5.0); BUN Creatinine Ratio 11.9 (10-20); Bilirubin,Total 0.3 mg/dl (0.2-1.0); Calcium 9.4 mg/dl (8.6-10.3); Creatinine Clr Calc Pharmacy 160.5 ml/min; Est GFR (African American) 102.9 ml/min; Est GFR (Non-African American) 88.8 ml/min; Globulin 4.7 gm/dl (2.5-4.0); Magnesium 1.8 mg/dl (1.7-2.4); Total Protein 8.6 gm/dl (6.0-8.3)
[2023-09-24 13:53] LABS: Troponin I High Sensitivity 2.7 pg/ml (0-14)
[2023-09-24] MEDS: POTASSIUM CHLORIDE CRTAB 20 MEQ TABCR PO STA ×2 (14:47→22:38)
--- NOTE | 2023-09-24 16:13 | History & Physical Report ---
Date of Service September 24, 2023 Assessment & Plan (1) Acute on chronic heart failure with preserved ejection fraction (HFpEF): Plan: Outpatient regimen bumex 4mg PO BID, metolazone on hold due to hypotension previously Start with Bumex 4mg IV BID just to see if IV dosing improves diuresis but likely to need to switch to IV drip depending on output tomorrow (will avoid currently due to hypokalemia Strict I&Os Daily weights Consult [facility] (2) Shortness of breath: Plan: Suspected secondary to acute HFpEF, if not improving would consider CT for PE to rule this out however timeline and increased weight fit well with HF diagnosis (3) Dysuria: Plan: UA pending (4) Rash: Plan: Right upper extremity. Appears to be excoriation owen from intense itching. Picture taken on admission for comparison. Low suspicion of cellulitis at time of admission but should be closely monitored Emollient cream BID (5) Hypokalemia: Plan: Potassium chloride 40 meq given in ER. Usually on 40 meq PO BID, will give total of 120 meq today and resume her usual dosing tomorrow (6) Chronic right arterial ischemic stroke, MCA (middle cerebral artery): Plan: Residual left sided UE > LE weakness with left facial droop (7) Anxiety: Plan: Continue sertraline, trazodone HS (8) Anemia: Plan: At baseline, continue to monitor (9) Primary hypothyroidism: Plan: TSH WNL Continue levothyroxine Plan VTE prophylaxis - Eliquis Diet - Low Na, heart healthy Disposition - admit to med/tele Admission and Anticipated Discharge Date Admission Date: September 24, 2023 History of Present Illness Chief Complaint: Shortness of breath Primary Care Provider: Stacey Arce MD Michelle Salcido is a 38 year old female with prior CVA, chronic CHF who presents to the ER with increased weight, shortness of breath, leg swelling. She reports slow progressive symptoms over the last month in absence of chest pain. Associated dry cough. No fever or chills. Baseline oxygen requirement of 2LPM O2 but recently she has had to increase this to 4LPM. She was advised to go to the ER as already taking 4mg Bumex PO BID and prior metolazone use led to hypotension in July this year requiring overnight IV fluids. She notably has also had dysuria for the last 2 days in absence of other urinary symptoms. Allergies Allergy/AdvReac Type Severity Reaction Status Date / Time sulfamethoxazole Allergy Severe Anaphylaxis Verified 08/26/23 13:34 [From Bactrim] trimethoprim [From Bactrim] Allergy Severe Anaphylaxis Verified 08/26/23 13:34 atorvastatin AdvReac Intermediate Muscle Pain Verified 08/26/23 13:34 Home Medications Medication Instructions Recorded Confirmed Type Wheelchair (Manual) #1 ea 03/25/22 09/24/23 Rx Hospital Bed Homecare (Hospital #1 ea 04/18/22 09/24/23 Rx Bed) Wheelchair (Manual) (Manual #1 ea 04/18/22 09/24/23 Rx Wheelchair) Lift Chair #1 ea 10/09/22 09/24/23 Rx miscellaneous medical supply #1 ea 10/16/22 09/24/23 Rx ketoconazole 2 % topical cream 1 applic topical BID 4 weeks #15 11/19/22 09/24/23 Rx grams aspirin 81 mg chewable tablet 81 mg PO QAM 12/16/22 09/24/23 History melatonin 3 mg tablet 3 mg PO HS 12/16/22 09/24/23 History methadone 10 mg tablet 72 mg PO QAM 12/16/22 09/24/23 History multivitamin with minerals 1 tab PO QAM 12/16/22 09/24/23 History epinephrine 0.3 mg/0.3 mL 0.3 mg (0.3 mL) IM .COMPLEX PRN 12/26/22 09/24/23 Rx injection, auto-injector anaphylaxis #2 ea Oxygen Home E0424 #1 ea 01/26/23 09/24/23 Rx acetaminophen 650 mg 650 mg PO Q8H PRN fever or pain #1 02/24/23 09/24/23 Rx tablet,extended release (Tylenol 8 tab Hour) diclofenac sodium 1 % topical gel 4 g EXT QID PRN right knee pain OR 02/24/23 09/24/23 Rx (Voltaren Arthritis Pain) back pain #1 tube bumetanide 2 mg tablet 4 mg (2 x 2 mg) PO BID #120 tabs 03/06/23 09/24/23 Rx gabapentin 600 mg tablet 600 mg PO TID #90 tabs 03/31/23 09/24/23 Rx polyethylene glycol 3350 17 gram 17 g PO DAILY PRN Constipation 05/01/23 09/24/23 History oral powder packet (Miralax) Powered Wheelchair #1 ea 05/27/23 09/24/23 Rx potassium chloride 20 mEq 40 meq (2 x 20 mEq) PO BID #120 06/05/23 09/24/23 Rx tablet,extended release tabs fluticasone propionate 100 1 inh inhalation BID 08/08/23 09/24/23 History mcg/actuation blister powder for inhalation metolazone 2.5 mg tablet 2.5 mg PO Q OTHER DAY 08/08/23 09/24/23 History clonazepam 0.5 mg tablet 0.5 mg PO HS #30 tabs 09/01/23 09/24/23 Rx apixaban 2.5 mg tablet 2.5 mg PO BID #60 tabs 09/09/23 09/24/23 Rx baclofen 10 mg tablet 10 mg PO BID PRN muscle 09/19/23 09/24/23 Rx stiffness/spasm #60 tabs trazodone 50 mg tablet 50 mg PO HS #30 tabs 09/19/23 09/24/23 Rx levothyroxine 75 mcg tablet 75 mcg PO DAILYBB 09/24/23 09/24/23 History magnesium oxide 400 mg (241.3 mg 400 mg PO HS 09/24/23 09/24/23 History magnesium) tablet metoprolol tartrate 50 mg tablet 25 mg PO BID 09/24/23 09/24/23 History pantoprazole 40 mg tablet,delayed 40 mg PO QAM 09/24/23 09/24/23 History release sertraline 100 mg tablet 200 mg PO QAM 09/24/23 09/24/23 History spironolactone 25 mg tablet 25 mg PO QAM 09/24/23 09/24/23 History Past Med/Surg History Medical History (Updated 09/25/23 @ 07:08 by Kurt Ortez MD) Acute on chronic heart failure with preserved ejection fraction (HFpEF) Tobacco dependence Sleep apnea Primary hypothyroidism Hepatitis C Left spastic hemiparesis Right knee pain Cirrhosis Fatty liver ANTWAN (acute kidney injury) Back pain Hypothyroidism Snoring Iron deficiency B12 deficiency Morbid obesity Thalassemia Edema, peripheral Splenic abscess Splenomegaly Hypoxia Opioid use disorder, severe, in sustained remission on maintenance therapy Methadone MENDEZ (generalized anxiety disorder) Major depressive disorder, recurrent episode, moderate with anxious distress Chronic right arterial ischemic stroke, MCA (middle cerebral artery) Left-sided weakness Bipolar disorder History of embolic stroke Rt MCA History of stroke Drug abuse and dependence Anemia Endocarditis Anxiety PCOS (polycystic ovarian syndrome) Surgical History S/P mitral valve replacement with bioprosthetic valve (06/2022) H/O mitral valve replacement History of repair of ACL History of section History of tubal ligation Family History Grandmother (Paternal) Breast cancer Grandfather (Maternal) Myocardial infarction Graves disease Grandfather (Paternal) Myocardial infarction Other Thalassemia Denies family history of Colon cancer Ovarian cancer Prostate cancer Social History Smoking Status: Former smoker Tobacco Type: Cigarettes packs per day: 1; Second Hand Exposure: No; Do You Dip or Chew Tobacco: No; Tobacco Cessation Education Requested by Patient: No Hx Alcohol Use: No Hx Substance Use: No Preferred Language: Cambodian Communication Ability: Effective Visual Impairment: No Limitations Hearing Ability: Normal Electronic Installer Required: No Beliefs That Will Affect Care: None marital status: Single Current Living Situation: Family Current Living Situation Comment: home with daughter and mom 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 Other Information That Helps Us Care for You: No Feels Safe at Home: Yes Safety Concerns: Feels Safe At This Time Childhood Exposure to Second-Hand Smoke: No Diet: regular Diet Comment: regular Dental Care, Regularly: No Physical Activity Frequency: Does not Exercise Seatbelt Use: sometimes Sunscreen Use: No Assistive Devices: Oxygen - Continuous and Wheelchair Review of Systems 2 Review of Systems: All systems reviewed & are unremarkable except as noted in HPI & below Physical Exam 2 Constitutional: WD/WN, vitals as above Eyes: PERRL, conjunctivae normal, anicteric sclerae ENMT: external ear and nose normal, oropharynx normal Respiratory: normal respiratory effort; no respiratory distress A uscultation: + breath sounds absent (bibasal); no crackles and no wheezes Cardiovascular: Rate/Rhythm: regular rate and regular rhythm Heart Sounds: no murmur Extremities: normal capillary refill and + pedal edema (2+ pitting b/l equal); no calf tenderness Gastrointestinal (Abdomen): Inspection/Auscultation: abdomen normal to inspection; abdomen not distended Percussion/Palpation: + abdomen tender (LLQ (mild on deep palpation only)) and abdomen soft; no guarding and abdomen not rigid Skin: Neurologic: + focal motor deficit (reduced movement of proximal > distal UE > LE left sided) and awake; + does not move all extremities and not confused C ranial Nerves: + abnormal facial strength (left sided facial droop) Psychiatric: Orientation: alert and oriented x 3 Results & Data Results & Data Vital Signs (Past 12 Hours) Vital Signs Temp Pulse Resp BP Pulse Ox O2 Del Method O2 Flow Rate 09/24/23 14:30 75 14 99 Nasal Cannula 5 09/24/23 14:00 72 20 116/80 98 Nasal Cannula 5 09/24/23 13:30 68 12 118/68 97 Nasal Cannula 6 09/24/23 13:00 69 14 97 Nasal Cannula 6 09/24/23 12:30 69 16 97 Nasal Cannula 6 09/24/23 12:13 69 09/24/23 12:02 90 Nasal Cannula 6 09/24/23 12:00 71 13 96 09/24/23 11:30 72 13 120/70 97 Nasal Cannula 6 09/24/23 11:18 37.1 C 77 17 120/70 96 Nasal Cannula 5 Laboratory Results Abnormal lab results 09/24/23 Range/Units 13:08 Hgb 10.9 L (12.0-16.0) g/dl Hct 35.0 L (37.0-47.0) % MCV 76.9 L (80.0-100.0) fL MCH 24.0 L (25.0-34.0) pg MCHC 31.1 L (32.0-36.0) g/dL Plt Count 510 H (130-400) K/uL MPV 9.2 L (9.4-12.4) fL Sodium 135 L (136-145) mmol/L Potassium 3.0 L (3.5-5.1) mmol/L Chloride 91 L (98-107) mmol/L Carbon Dioxide 36 H (21-32) mmol/L Glucose 113 H (70-99(Fasting)) mg/dl Total Protein 8.6 H (6.0-8.3) gm/dl Globulin 4.7 H (2.5-4.0) gm/dl Albumin/Globulin Ratio 0.8 L (0.9-2) Diagnostic Findings XR chest 1V portable CLINICAL HISTORY: sob, cough TECHNIQUE: Single frontal radiograph of the chest was obtained. Comparison: Comparison is made to chest radiograph 08/08/2023 FINDINGS: Median sternotomy wires are unchanged. Cardiomegaly is noted. Atelectasis is seen in the right midlung. No evidence of pleural effusion or pneumothorax. IMPRESSION: No acute abnormalities and in particular no radiographic evidence of pneumonia. Medications Administered ER medications given: Potassium chloride 40 mEq p.o. Bumex 2 mg IV ECG Rate (beats per minute): 76 Rhythm: normal sinus Findings: no acute ischemic change Comparison ECG Date: from (Aug 08, 2023) Change: no significant change Code Status & VTE Plan Code Status Full VTE Prophylaxis Plan VTE Prophylaxis will be ordered: Yes PG Care Time/CCT Total # of Minutes Spent Total Time Spent with Patient: Total time spent is greater than 50% in coordination of care (as documented) at patient's floor/unit and/or counseling patient: Coding Level of Care Code 89428 INT INP/OBS CARE 375MIN Diagnoses Acute on chronic heart failure with preserved ejection fraction (HFpEF) I50.33 Shortness of breath R06.02 Dysuria R30.0 Rash R21 Hypokalemia E87.6 Chronic right arterial ischemic stroke, MCA (middle cerebral artery) I69.30 Anxiety F41.9 Anemia D64.9 Anemia type: unspecified type Primary hypothyroidism E03.9 (8) Anemia Anemia type: unspecified type Qualified Code(s): D64.9 - Anemia, unspecified
[2023-09-24] MEDS: BUMETANIDE 2 MG in SYRINGE 0 ML IV ONE ×2 (16:39→21:17)
[2023-09-24 18:41] LABS: Appearance Urine Clear (Clear); Bilirubin Urine Negative (Negative); Blood Urine Negative (Negative); Color Urine Yellow; Glucose Urine UA Negative (Negative); Ketones Urine Negative (Negative); Leukocyte Esterase Urine Negative (Negative); Nitrite Urine Negative (Negative); Protein Urine Negative (Negative); Urobilinogen Urine Negative (Negative)
[2023-09-24] MEDS ORDERED: POLYETHYLENE (MIRALAX) 17 GM PACK PO PRN (19:40)
[2023-09-24] MEDS ORDERED: BACLOFEN 10 MG TAB PO PRN (19:40)
[2023-09-24] MEDS: METOPROLOL TARTRATE 25 MG TAB PO SCH (21:17)
[2023-09-24] MEDS: MAGNESIUM OXIDE 400 MG TAB PO SCH (21:18)
[2023-09-24] MEDS: APIXABAN 2.5 MG TAB PO SCH (21:18)
[2023-09-24] MEDS: clonazePAM 0.5 MG TAB PO SCH (21:18)
[2023-09-24] MEDS: traZODone HCL 50 MG TAB PO SCH (21:18)
[2023-09-24] MEDS: MELATONIN 3 MG TAB PO SCH (21:18)
[2023-09-24] MEDS: KETOCONAZOLE 2% CR 15 GM TUBE EXT SCH (21:18)
[2023-09-24] MEDS: GABAPENTIN 600 MG TAB PO SCH (21:18)
[2023-09-24] MEDS: POTASSIUM CHLORIDE CRTAB 20 MEQ TABCR PO SCH (21:18)
[2023-09-24] MEDS: MAGNESIUM SULFATE / D5W 1 GM/100 ML BAG IV ONE (22:38)
[2023-09-25] MEDS: LEVOTHYROXINE SODIUM 75 MCG TABLET PO SCH (06:03)
[2023-09-25] MEDS: FLUTICASONE FUROATE 100MCG 14 PUFFS/INHALER INH SCH (09:11)
[2023-09-25] MEDS: ACETAMINOPHEN 325 MG TAB PO PRN (09:11)
[2023-09-25] MEDS: SERTRALINE HCL 100 MG TABLET PO SCH (09:12)
[2023-09-25] MEDS: PANTOprazole 40 MG TAB PO SCH (09:12)
[2023-09-25] MEDS: SPIRONOLACTONE 25 MG TAB PO SCH (09:12)
[2023-09-25] MEDS: ASPIRIN 81 MG CHEW PO SCH (09:13)
[2023-09-25] MEDS: CEROVITE ADV FORMULA TAB PO SCH (09:13)
[2023-09-25] MEDS: METHADONE ORAL SOLN 2 MG/ML PO SCH (09:15)
[2023-09-25] MEDS: BUMETANIDE 4 MG in SYRINGE 0 ML IV SCH (09:20)
[2023-09-25] MEDS: PATIENT'S OWN CONTROLLED MED 3 PO SCH (09:21)
[2023-09-25 10:04] LABS: Calcium 9.3 mg/dl (8.6-10.3); Creatinine Clr Calc Pharmacy 150.2 ml/min; Est GFR (African American) 92.2 ml/min; Est GFR (Non-African American) 79.5 ml/min; Magnesium 2.1 mg/dl (1.7-2.4); Potassium 3.6 mmol/L (3.5-5.1)
--- NOTE | 2023-09-25 15:07 | Heart Failure Consultation ---
Date of Consultation September 25, 2023 Assessment & Plan (1) Acute on chronic heart failure with preserved ejection fraction (HFpEF): (2) Physical deconditioning: (3) Shortness of breath: (4) S/P mitral valve replacement with bioprosthetic valve: (5) Volume overload: (6) Morbid obesity: Plan 1. Heart failure with preserved EF: She is having symptoms of increasing volume overload. Suspect this is multifactorial. Kidney function stable. Continue Bumex 4 mg IV BID. Continue Spironolactone 25 mg daily. She was hypotensive with Metolazone QOD requiring hospitalization in the past. However with her worsening symptoms she had resumed this as outpatient. Despite escalation of diuretic therapy she continues to develop worsening symptoms. Also admits to dietary indiscretion. Recommend daily standing weights- she's having difficulty with this at home. Dry weight 370 lb for now. Recently 401 lb on the office scale. Notify the HF program of 2+ lb overnight or 5+ lb in 1 week. Low sodium diet recommended. Strict I&Os. We discussed the nature of heart failure and the goals of the program. She is agreeable to ongoing participation however has often disengaged. She has been difficult to reach by phone and has multiple no shows in the chart. They would like to recommit to more consistent follow up and have improved in recent weeks. If she is able to maintain consistent follow up- we can hopefully be more aggressive with her regimen if needed. Consider SGLT2i however due to recurrent UTIs this has not been started. 2. 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 Slightly elevated transvalvular gradient in November 2022. SBE prophylaxis. Monitor as an outpatient. Full echocardiogram has been recommended at the hospital. Plan to repeat this admission. 3. Depression: She sees a therapist. Continue medical management. Continue ongoing management with PCP. 4. Anticoagulation: No cardiac indication for chronic anticoagulation therapy k nown at this time. According to records, was initiated in July 2022 when discharged from mitral valve replacement hospitalization for DVT prophylaxis. 5. Tobacco abuse: Smoke cessation. 6. Sleep apnea/somnolence: Recommend formal evaluation as an outpatient and treatment as appropriate. According to the patient this has been delayed multiple times. Would try to make this a priority as I think eval and treatment would significantly improve her status. 7. Hypokalemia: Improved with supplementation. Defer to primary service. Disposition: Will continue to follow during hospitalization. Continue close outpatient follow up with the heart failure program- within 7 days of discharge. Follow up with Dr. Tovar in September as scheduled. History of Present Illness Attending Physician: Agueda Sands MD History of Present Illness Ms. Salcido is a pleasant 37-year-old female with a history significant for mitral valve endocarditis (diagnosed July 2021) and IV drug abuse, severe mitral regurgitation (diagnosed November 2021) s/p bioprosthetic mitral valve replacement (07/23/2022 [facility]), stroke (septic emboli October 2021) with left hemiparesis, thalassemia, splenic abscess drainage, bipolar disorder, and polycystic ovarian syndrome, HFpEF, suspected OHS/CARINA. Dr. Tovar is her primary electrician master. She has had the following studies/procedures: 1. Echo 04/19/2022: Mildly dilated LV. EF 65 to 70%. LV not fully visualized. Ill-defined mobile echodensity involving the mitral valve, suspicious for vegetation and possibly significant MR, but not fully investigated on this limited echo. Moderate to severe pulmonary hypertension (RVSP > 55 mmHg). Patient refused further images. 2. Mitral valve replacement 07/23/2022 [facility]: Performed due to mitral valve endocarditis and severe mitral regurgitation. Underwent #33 epic Biocor porcine bioprosthesis. Exclusion of the left atrial appendage. 3. 01/18/23 Echo: Limited study. Lv normal size with normal function. Abnormal septal motion. No obvious WMA. RV normal size but appears hypokinetic. Aortic valve is trileaflet. Well seated bioprosthetic mitral valve. Mild MR. She is well known to the heart failure program. She was most recently evaluated on 08/26/23. She was having increased fluid retention and weight gain. Continue Bumex 4 mg BID, Spironolactone. Labs stable. Metolazone increased to every other day. Patient presented to the ED on 09/24/23 for progressive fluid retention despite escalation of her outpatient regimen, shortness of breath, and hypotension. CXR without abnormalities. BNP 39. She was mildly hypokalemic. She was treated with IV Bumex 4 mg BID. Patient reports feeling a bit improved today compared to yesterday. BP has been stable through the day. She continues on supplemental O2 4L. She has been minimally ambulatory but notes GUZMAN. She slept well with her head elevated. She has nonpitting lower extremity edema. Edema also noted in her face and UE as well. She's net negative 1.2 L so far this admission. Weight is 405 lb per bed scale. She denies chest pain, palpitations, or signs of bleeding. Allergies Allergy/AdvReac Type Severity Reaction Status Date / Time sulfamethoxazole Allergy Severe Anaphylaxis Verified 08/26/23 13:34 [From Bactrim] trimethoprim [From Bactrim] Allergy Severe Anaphylaxis Verified 08/26/23 13:34 atorvastatin AdvReac Intermediate Muscle Pain Verified 08/26/23 13:34 Home Medications Medication Instructions Recorded Confirmed Type Wheelchair (Manual) #1 ea 03/25/22 09/24/23 Rx Hospital Bed Homecare (Hospital #1 ea 04/18/22 09/24/23 Rx Bed) Wheelchair (Manual) (Manual #1 ea 04/18/22 09/24/23 Rx Wheelchair) Lift Chair #1 ea 10/09/22 09/24/23 Rx miscellaneous medical supply #1 ea 10/16/22 09/24/23 Rx ketoconazole 2 % topical cream 1 applic topical BID 4 weeks #15 11/19/22 09/24/23 Rx grams aspirin 81 mg chewable tablet 81 mg PO QAM 12/16/22 09/24/23 History melatonin 3 mg tablet 3 mg PO HS 12/16/22 09/24/23 History methadone 10 mg tablet 72 mg PO QAM 12/16/22 09/24/23 History multivitamin with minerals 1 tab PO QAM 12/16/22 09/24/23 History epinephrine 0.3 mg/0.3 mL 0.3 mg (0.3 mL) IM .COMPLEX PRN 12/26/22 09/24/23 Rx injection, auto-injector anaphylaxis #2 ea Oxygen Home E0424 #1 ea 01/26/23 09/24/23 Rx acetaminophen 650 mg 650 mg PO Q8H PRN fever or pain #1 02/24/23 09/24/23 Rx tablet,extended release (Tylenol 8 tab Hour) diclofenac sodium 1 % topical gel 4 g EXT QID PRN right knee pain OR 02/24/23 09/24/23 Rx (Voltaren Arthritis Pain) back pain #1 tube bumetanide 2 mg tablet 4 mg (2 x 2 mg) PO BID #120 tabs 03/06/23 09/24/23 Rx gabapentin 600 mg tablet 600 mg PO TID #90 tabs 03/31/23 09/24/23 Rx polyethylene glycol 3350 17 gram 17 g PO DAILY PRN Constipation 05/01/23 09/24/23 History oral powder packet (Miralax) Powered Wheelchair #1 ea 05/27/23 09/24/23 Rx potassium chloride 20 mEq 40 meq (2 x 20 mEq) PO BID #120 06/05/23 09/24/23 Rx tablet,extended release tabs fluticasone propionate 100 1 inh inhalation BID 08/08/23 09/24/23 History mcg/actuation blister powder for inhalation metolazone 2.5 mg tablet 2.5 mg PO Q OTHER DAY 08/08/23 09/24/23 History clonazepam 0.5 mg tablet 0.5 mg PO HS #30 tabs 09/01/23 09/24/23 Rx apixaban 2.5 mg tablet 2.5 mg PO BID #60 tabs 09/09/23 09/24/23 Rx baclofen 10 mg tablet 10 mg PO BID PRN muscle 09/19/23 09/24/23 Rx stiffness/spasm #60 tabs trazodone 50 mg tablet 50 mg PO HS #30 tabs 09/19/23 09/24/23 Rx levothyroxine 75 mcg tablet 75 mcg PO DAILYBB 09/24/23 09/24/23 History magnesium oxide 400 mg (241.3 mg 400 mg PO HS 09/24/23 09/24/23 History magnesium) tablet metoprolol tartrate 50 mg tablet 25 mg PO BID 09/24/23 09/24/23 History pantoprazole 40 mg tablet,delayed 40 mg PO QAM 09/24/23 09/24/23 History release sertraline 100 mg tablet 200 mg PO QAM 09/24/23 09/24/23 History spironolactone 25 mg tablet 25 mg PO QAM 09/24/23 09/24/23 History Patient History Medical History (Updated 09/25/23 @ 15:18 by Margie Malone PA-C) Morbid obesity Acute on chronic heart failure with preserved ejection fraction (HFpEF) Tobacco dependence Sleep apnea Primary hypothyroidism Hepatitis C Left spastic hemiparesis Right knee pain Cirrhosis Fatty liver ANTWAN (acute kidney injury) Back pain Hypothyroidism Snoring Iron deficiency B12 deficiency Thalassemia Edema, peripheral Splenic abscess Splenomegaly Hypoxia Opioid use disorder, severe, in sustained remission on maintenance therapy Methadone MENDEZ (generalized anxiety disorder) Major depressive disorder, recurrent episode, moderate with anxious distress Chronic right arterial ischemic stroke, MCA (middle cerebral artery) Left-sided weakness Bipolar disorder History of embolic stroke Rt MCA History of stroke Drug abuse and dependence Anemia Endocarditis Anxiety PCOS (polycystic ovarian syndrome) Surgical History S/P mitral valve replacement with bioprosthetic valve (06/2022) H/O mitral valve replacement History of repair of ACL History of section History of tubal ligation Family History Grandmother (Paternal) Breast cancer Grandfather (Maternal) Myocardial infarction Graves disease Grandfather (Paternal) Myocardial infarction Other Thalassemia Denies family history of Colon cancer Ovarian cancer Prostate cancer Social History Smoking Status: Former smoker Tobacco Type: Cigarettes packs per day: 1; Second Hand Exposure: No; Do You Dip or Chew Tobacco: No; Tobacco Cessation Education Requested by Patient: No Hx Alcohol Use: No Hx Substance Use: No Preferred Language: Hungarian Communication Ability: Effective Visual Impairment: No Limitations Hearing Ability: Normal District Attorney Required: No Beliefs That Will Affect Care: None marital status: Single Current Living Situation: Family Current Living Situation Comment: home with daughter and mom 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 Alert. Conversive today. HEENT: Anicteric sclera. Neck: Thick neck. No appreciable JVD but difficult exam. Cardiac: No ventricular heave. Regular without ectopy. Normal S1-S2. No audible murmur. No rubs or gallops. Pulmonary: Clear to auscultation bilaterally. Abdomen: Soft, nontender, nondistended, with normoactive bowel sounds. No bruits noted. Extremities: 2+ radial pulses bilaterally. 2+ posterior tibialis pulses bilaterally. Trace to 1+ bilateral lower extremity edema. 1+ edema in her upper extremities. No cyanosis. Results & Data Vital Signs (Past 12 Hours) Vital Signs Temp Pulse Pulse Resp BP Pulse Ox Pulse Ox 09/25/23 11:58 98.1 F 78 14 139/82 96 09/25/23 08:00 95 09/25/23 08:00 98.2 F 69 16 102/66 95 09/25/23 07:43 67 09/25/23 03:58 99/65 L 09/25/23 03:54 97.7 F 68 18 88/59 L 94 O2 Del Method O2 Del Method O2 Flow Rate O2 Flow Rate 09/25/23 11:58 Nasal Cannula 4 09/25/23 08:00 Nasal Cannula 4 09/25/23 08:00 Nasal Cannula 4 09/25/23 07:43 09/25/23 03:58 09/25/23 03:54 Nasal Cannula 4 Coding Level of Care Code 66211 INT INP/OBS CARE 3/75MIN Diagnoses Acute on chronic heart failure with preserved ejection fraction (HFpEF) I50.33 Physical deconditioning R53.81 Shortness of breath R06.02 S/P mitral valve replacement with bioprosthetic valve Z95.3 Volume overload E87.70 Morbid obesity E66.01
--- NOTE | 2023-09-25 15:21 | Hospitalist Progress Note ---
Date of Service September 25, 2023 Assessment & Plan (1) Acute on chronic heart failure with preserved ejection fraction (HFpEF): Plan: Michelle Salcido is a 37yo female with history of mitral valve endocarditis s/p bioprosthetic mitral valve replacement in June 2022, HFpEF presenting with acute on chronic heart failure Outpatient regimen bumex 4mg PO BID, metolazone on hold due to hypotension previously. Per clinic notes dry weight 380, trending up to 401 recently in clinic, 405 today Baseline 2L home O2 for chronic hypoxic respiratory failure Suspected to have CARINA but getting sleep study arranged has been challenging -Continue Bumex 4mg IV BID, increase potassium replacement to 40 tid (home is bid). cont spironolactone -TTE -I/O, daily weight, AM BMP and mag -does not appear to have pneumonia, CRP elevated so will repeat procal in AM. presentation not very suspicious for PE. will assess response to diuresis -discussed with HF program Emy Malone (2) Dysuria: Plan: UA normal (3) Rash: Plan: Right upper extremity. Appears to be excoriation owen from intense itching. Picture taken on admission for comparison. Low suspicion of cellulitis at time of admission but should be closely monitored Emollient cream BID (4) Hypokalemia: Plan: replaced, increased see above (5) Chronic right arterial ischemic stroke, MCA (middle cerebral artery): Plan: Residual left sided UE > LE weakness with left facial droop (6) Anxiety: Plan: Continue sertraline, trazodone HS (7) Anemia: Plan: At baseline, continue to monitor (8) Primary hypothyroidism: Plan: TSH WNL Continue levothyroxine Plan VTE prophylaxis - Eliquis Diet - Low Na, heart healthy Admission and Anticipated Discharge Date Admission Date: September 24, 2023 Subjective Dyspnea persists but improved a little, no chest pain, back/buttock pain due to bed wants different bed Not sure if leg edema is any different Has trouble getting weights at home Physical Exam 2 Physical Exam: PHYSICAL EXAMINATION Last 24h vital signs reviewed, see documentation in flowsheet General: sitting on EOB HEENT: Normocephalic, atraumatic, pupils round and equal, sclerae anicteric, no conjunctival injection, moist mucus membranes Lungs: Normal respiratory effort. diminished bilaterally. Heart: Regular rate and rhythm, syst M. Can't see JVP sitting upright Abdomen: Soft, nontender, nondistended. Bowel sounds present. Extremities: Warm, dry, well-perfused. 3+ extremity edema. Neuro: Alert and oriented x 4, face symmetric, moves 4 extremities well Psych: Normal affect and behavior Results & Data Results & Data Vital Signs (Past 12 Hours) Vital Signs Temp Pulse Pulse Resp BP Pulse Ox Pulse Ox 09/25/23 11:58 36.7 C 78 14 139/82 96 09/25/23 08:00 95 09/25/23 08:00 36.8 C 69 16 102/66 95 09/25/23 07:43 67 09/25/23 03:58 99/65 L 09/25/23 03:54 36.5 C 68 18 88/59 L 94 O2 Del Method O2 Del Method O2 Flow Rate O2 Flow Rate 09/25/23 11:58 Nasal Cannula 4 09/25/23 08:00 Nasal Cannula 4 09/25/23 08:00 Nasal Cannula 4 09/25/23 07:43 09/25/23 03:58 09/25/23 03:54 Nasal Cannula 4 Laboratory Results 09/24/23 13:08 09/25/23 09:10 PG Care Time/CCT Total # of Minutes Spent Total Time Spent with Patient: Total time spent is greater than 50% in coordination of care (as documented) at patient's floor/unit and/or counseling patient: Coding Level of Care Code 43399 SUB INP/OBS CARE 3/50MIN Diagnoses Acute on chronic heart failure with preserved ejection fraction (HFpEF) I50.33 Dysuria R30.0 Rash R21 Hypokalemia E87.6 Chronic right arterial ischemic stroke, MCA (middle cerebral artery) I69.30 Anxiety F41.9 Anemia D64.9 Anemia type: unspecified type Primary hypothyroidism E03.9 (7) Anemia Anemia type: unspecified type Qualified Code(s): D64.9 - Anemia, unspecified
[2023-09-25] MEDS: POTASSIUM CHLORIDE CRTAB 20 MEQ TABCR PO SCH (16:22)
[2023-09-26 07:03] LABS: Calcium 9.1 mg/dl (8.6-10.3); Creatinine Clr Calc Pharmacy 143.5 ml/min; Est GFR (African American) 92.2 ml/min; Est GFR (Non-African American) 79.5 ml/min; Potassium 3.2 mmol/L (3.5-5.1)
[2023-09-26] MEDS: POTASSIUM CHLORIDE CRTAB 20 MEQ TABCR PO STA (09:13)
[2023-09-26] MEDS: DICLOFENAC SOD 1% GEL 100 GM TUBE EXT PRN (09:14)
[2023-09-26 09:31] LABS: A calco-baum cmplx NotReported Not Detected (NotDetected); Bact fragilis Not Reported Not Detected (NotDetected); Blood Culture Id Panel See PCR Comment (NotDetected); C auris Not Reported Not Detected (NotDetected); Calbicans Not Reported Not Detected (NotDetected); Candida glabrata Not Reported Not Detected (NotDetected); Candida krusei Not Reported Not Detected (NotDetected); Cneoformans/gatti Not Reported Not Detected (NotDetected); Cparapsilosis Not Reported Not Detected (NotDetected); E cloacae compx Not Reported Not Detected (NotDetected); Efaecalis Not Reported Not Detected (NotDetected); Efaecium Not Reported Not Detected (NotDetected); Enterobacterales Not Reported Not Detected (NotDetected); Escherichia coli Not Reported Not Detected (NotDetected); H influenzae Not Reported Not Detected (NotDetected); K aerogenes Not Reported Not Detected (NotDetected); Koxytoca Not Reported Not Detected (NotDetected); Kpneumoniae grp Not Reported Not Detected (NotDetected); Lmonocyt Not Reported Not Detected (NotDetected); N meningitidis Not Reported Not Detected (NotDetected); P aeruginosa Not Reported Not Detected (NotDetected); Proteus spp Not Reported Not Detected (NotDetected); Salmonella spp Not Reported Not Detected (NotDetected); Smarcescens Not Reported Not Detected (NotDetected); Staph lugdunensis Not Reported Not Detected (NotDetected); Staph spp. Not Reported DETECTED (NotDetected); Staphaureus Not Reported Not Detected (NotDetected); Staphepi Not Reported DETECTED (NotDetected); Staphylococcus spp. DETECTED (NotDetected); Stenmaltophilia Not Reported Not Detected (NotDetected); Strep agal(GrpB) Not Reported Not Detected (NotDetected); Strep pneum Not Reported Not Detected (NotDetected); Strep pyog (GrpA) Not Reported Not Detected (NotDetected); Strep spp Not Reported Not Detected (NotDetected); mecAC Resistant Gene DETECTED (NotDetected)
[2023-09-26 09:39] LABS: Staphylococcus epidermidis DETECTED (NotDetected)
[2023-09-26] MEDS ORDERED: PROCHLORPERAZINE 5 MG in SYRINGE 4 ML IV PRN (11:28)
--- NOTE | 2023-09-26 14:44 | Heart Failure Progress Note ---
Date of Service September 26, 2023 Assessment & Plan (1) Acute on chronic heart failure with preserved ejection fraction (HFpEF): (2) Physical deconditioning: (3) Shortness of breath: (4) S/P mitral valve replacement with bioprosthetic valve: (5) Volume overload: (6) Morbid obesity: Plan 1. Heart failure with preserved EF: She is having symptoms of increasing volume overload. Suspect this is multifactorial. Kidney function stable. Echo repeated today- normal LV size/function, EF 50-55%, RV normal size/function, normal PA pressures. Suspect her edema is non-cardiac. Continue Bumex 4 mg IV BID. Continue Spironolactone- could increase to 50 mg daily to help with hypokalemia and volume. She was hypotensive with Metolazone QOD requiring hospitalization in the past. However with her worsening symptoms she had resumed this as outpatient. Despite escalation of diuretic therapy she continues to develop worsening symptoms. Also admits to dietary indiscretion. Recommend daily standing weights- she's having difficulty with this at home. Dry weight 370 lb for now? Unclear if this is still accurate. Recently 401 lb on the office scale. She's 394 lb today standing. Notify the HF program of 2+ lb overnight or 5+ lb in 1 week. Low sodium diet recommended. Strict I&Os. We d iscussed the nature of heart failure and the goals of the program. She is agreeable to ongoing participation however has often disengaged. She has been difficult to reach by phone and has multiple no shows in the chart. They would like to recommit to more consistent follow up and have improved in recent weeks. If she is able to maintain consistent follow up- we can hopefully be more aggressive with her regimen if needed. Consider SGLT2i however due to recurrent UTIs this has not been started. 2. Mitral valve endocarditis s/p bioprosthetic mitral valve replacement (June 2022): Appears to be functioning reasonably well based on recent echocardiogram. Slightly elevated transvalvular gradient in November 2022. SBE prophylaxis. Monitor as an outpatient. 3. Depression: She sees a therapist. Continue medical management. Continue ongoing management with PCP. 4. Anticoagulation: No cardiac indication for chronic anticoagulation therapy known at this time. According to records, was initiated in July 2022 when discharged from mitral valve replacement hospitalization for DVT prophylaxis. 5. Tobacco abuse: Smoke cessation. 6. Sleep apnea/somnolence: Recommend formal evaluation as an outpatient and treatment as appropriate. According to the patient this has been delayed multiple times. Would try to make this a priority as I think eval and treatment would significantly improve her status. 7. Hypokalemia: Improved with supplementation. Defer to primary service. Disposition: Will continue to follow during hospitalization. Continue close outpatient follow up with the heart failure program- within 7 days of discharge. Follow up with Dr. Tovar in September as scheduled. Admission and Anticipated Discharge Date Admission Date: September 24, 2023 Subjective Patient reports feeling improved today. She is sitting in her recliner with her feet elevated. She slept better with a different bed last night. Minimal lower extremity pitting edema. She's net negative 1.7L and her standing weight is 394 lb today. BPs improved today and is now elevated. Physical Exam Physical Exam: Gen.: No acute distress. Alert. Conversive today. HEENT: Anicteric sclera. Neck: Thick neck. No appreciable JVD but difficult exam. Cardiac: No ventricular heave. Regular without ectopy. Normal S1-S2. No audible murmur. No rubs or gallops. Pulmonary: Clear to auscultation bilaterally. Abdomen: Soft, nontender, nondistended, with normoactive bowel sounds. No bruits noted. Extremities: 2+ radial pulses bilaterally. 2+ posterior tibialis pulses bilaterally. Trace to 1+ bilateral lower extremity edema. 1+ edema in her upper extremities. No cyanosis. Results & Data Vital Signs (Past 12 Hours) Vital Signs Temp Pulse Pulse Resp BP Pulse Ox O2 Del Method 09/26/23 12:26 Nasal Cannula 09/26/23 10:58 98.2 F 89 19 153/83 H 93 Nasal Cannula 09/26/23 07:41 61 09/26/23 07:40 97.5 F L 64 20 114/66 94 Nasal Cannula 09/26/23 02:59 97.5 F L 62 18 96/60 L 97 Nasal Cannula O2 Flow Rate 09/26/23 12:26 2 09/26/23 10:58 2 09/26/23 07:41 09/26/23 07:40 4 09/26/23 02:59 4 PG Care Time/CCT Total # of Minutes Spent Total Time Spent with Patient: Total time spent is greater than 50% in coordination of care (as documented) at patient's floor/unit and/or counseling patient: Coding Diagnoses Acute on chronic heart failure with preserved ejection fraction (HFpEF) I50.33 Physical deconditioning R53.81 Shortness of breath R06.02 S/P mitral valve replacement with bioprosthetic valve Z95.3 Volume overload E87.70 Morbid obesity E66.01
--- NOTE | 2023-09-26 15:13 | XCELERA ---
[id number] \\[id number]
--- NOTE | 2023-09-26 17:13 | Hospitalist Progress Note ---
Date of Service September 26, 2023 Assessment & Plan (1) Acute on chronic heart failure with preserved ejection fraction (HFpEF): Plan: Michelle Salcido is a 37yo female with history of mitral valve endocarditis s/p bioprosthetic mitral valve replacement in June 2022, HFpEF presenting with acute on chronic heart failure Outpatient regimen bumex 4mg PO BID, metolazone on hold due to hypotension previously. Per clinic notes dry weight 380, trending up to 401 recently in clinic, 405 today Baseline 2L home O2 for chronic hypoxic respiratory failure Suspected to have CARINA but getting sleep study arranged has been challenging -Continue Bumex 4mg IV BID, increase potassium replacement to 40 tid (home is bid). probably oral diuretics tomorrow -TTE reviewed - unchanged from prior 6 mo ago. E F50-55%, bioprosthetic MV functioning well, nl RV function -I/O, daily weight, AM BMP and mag -does not appear to have pneumonia, CRP elevated but serial procal negative. presentation not very suspicious for PE. has had good response to diuresis with respect to dyspnea now on baseline home O2 -discussed with HF program Emy Malone 4/5 - will increase spironolactone to 50 mg to help with volume status and potassium balance (2) Dysuria: Plan: UA normal (3) Rash: Plan: Right upper extremity. No cellulitis. Looks like keratosis pilaris Emollient cream BID (4) Hypokalemia: Plan: again low 4/5 replaced, increased replacement to tid see above mag 2.0 (5) Chronic right arterial ischemic stroke, MCA (middle cerebral artery): Plan: Residual left sided UE > LE weakness with left facial droop (6) Anxiety: Plan: Continue sertraline, trazodone HS (7) Anemia: Plan: At baseline, continue to monitor (8) Primary hypothyroidism: Plan: TSH WNL Continue levothyroxine Plan VTE prophylaxis - Eliquis Diet - Low Na, heart healthy I updated her mother by phone in the room today Admission and Anticipated Discharge Date Admission Date: September 24, 2023 Subjective Breathing much better and interested in getting home soon Leg edema unchanged but no pitting Physical Exam 2 Physical Exam: PHYSICAL EXAMINATION Last 24h vital signs reviewed, see documentation in flowsheet General: sitting in chair HEENT: Normocephalic, atraumatic, pupils round and equal, sclerae anicteric, no conjunctival injection, moist mucus membranes Lungs: Normal respiratory effort. crackles in bases posteriorly Heart: Regular rate and rhythm, no mrg. Can't see JVP sitting upright Abdomen: Soft, nontender, nondistended. Bowel sounds present. Extremities: Warm, dry, well-perfused. LE are large but no pitting edema today Neuro: Alert and oriented x 4, face symmetric, L facial droop and LUE>LLE weakness unchanged Psych: Normal affect and behavior Results & Data Results & Data Vital Signs (Past 12 Hours) Vital Signs Temp Pulse Pulse Resp BP Pulse Ox O2 Del Method 09/26/23 15:51 71 09/26/23 15:02 36.2 C L 75 20 96/62 L 99 Nasal Cannula 09/26/23 12:26 Nasal Cannula 09/26/23 10:58 36.8 C 89 19 153/83 H 93 Nasal Cannula 09/26/23 07:41 61 09/26/23 07:40 36.4 C L 64 20 114/66 94 Nasal Cannula O2 Flow Rate 09/26/23 15:51 09/26/23 15:02 2 09/26/23 12:26 2 09/26/23 10:58 2 09/26/23 07:41 09/26/23 07:40 4 Laboratory Results 09/24/23 13:08 09/26/23 06:05 PG Care Time/CCT Total # of Minutes Spent Total Time Spent with Patient: Total time spent is greater than 50% in coordination of care (as documented) at patient's floor/unit and/or counseling patient: Coding Level of Care Code 69764 SUB INP/OBS CARE 2/35MIN Diagnoses Acute on chronic heart failure with preserved ejection fraction (HFpEF) I50.33 Dysuria R30.0 Rash R21 Hypokalemia E87.6 Chronic right arterial ischemic stroke, MCA (middle cerebral artery) I69.30 Anxiety F41.9 Anemia D64.9 Anemia type: unspecified type Primary hypothyroidism E03.9 (7) Anemia Anemia type: unspecified type Qualified Code(s): D64.9 - Anemia, unspecified
--- NOTE | 2023-09-27 00:40 | Electrocardiogram Report ---
Test Reason : Blood Pressure : / mmHG Vent. Rate : 076 BPM Atrial Rate : 076 BPM P-R Int : 150 ms QRS Dur : 088 ms QT Int : 510 ms P-R-T Axes : 036 029 031 degrees QTc Int : 573 ms Normal sinus rhythm Cannot rule out Inferior infarct , age undetermined Abnormal ECG When compared with ECG of 08-AUG-2023 18:23, No significant change Confirmed by Chapo Austin ([id number]) on 09/27/2023 12:39:31 AM Referred By: Confirmed By:Chapo Austin
[2023-09-27] MEDS: SPIRONOLACTONE 25 MG TAB PO SCH (08:55)
[2023-09-27 09:49] LABS: Calcium 8.9 mg/dl (8.6-10.3); Creatinine Clr Calc Pharmacy 143.9 ml/min; Est GFR (Non-African American) 78.5 ml/min; Potassium 3.2 mmol/L (3.5-5.1)
[2023-09-27] MEDS: POTASSIUM CHLORIDE CRTAB 20 MEQ TABCR PO STA (12:50)
--- NOTE | 2023-09-27 17:06 | Hospitalist Progress Note ---
Date of Service September 27, 2023 Assessment & Plan (1) Acute on chronic heart failure with preserved ejection fraction (HFpEF): Plan: Michelle Salcido is a 37yo female with history of mitral valve endocarditis s/p bioprosthetic mitral valve replacement in June 2022, HFpEF presenting with acute on chronic heart failure Outpatient regimen bumex 4mg PO BID, metolazone on hold due to hypotension previously. Per clinic notes dry weight 380, trending up to 401 recently in clinic, 405 today Baseline 2L home O2 for chronic hypoxic respiratory failure Suspected to have CARINA but getting sleep study arranged has been challenging Does not appear to have pneumonia, CRP elevated but serial procal negative. presentation not very suspicious for PE. has had good response to diuresis with respect to dyspnea now on baseline home O2 -diuresed with Bumex 4mg IV BID, change to oral bumex this afternoon. appears euvolemic -increased potassium replacement - 40 tid and extra dose of 40 today -increased spironolactone to 50 -TTE reviewed - unchanged from prior 6 mo ago. E F50-55%, bioprosthetic MV functioning well, nl RV function -I/O, daily weight, AM BMP and mag -discussed with HF program Emy Malone 09/25 -anticipate discharge tomorrow (2) Dysuria: Plan: UA normal (3) Rash: Plan: Right upper extremity. No cellulitis. Looks like keratosis pilaris recommended emollient cream BID, exfoliating (4) Hypokalemia: Plan: again low / replacing (5) Chronic right arterial ischemic stroke, MCA (middle cerebral artery): Plan: Residual left sided UE > LE weakness with left facial droop (6) Anxiety: Plan: Continue sertraline, trazodone HS (7) Anemia: Plan: At baseline, continue to monitor (8) Primary hypothyroidism: Plan: TSH WNL Continue levothyroxine Plan VTE prophylaxis - Eliquis Diet - Low Na, heart healthy I updated her mother by phone in the room 09/25. Shes aware of dc plan for 09/27 Admission and Anticipated Discharge Date Admission Date: September 24, 2023 Subjective Breathing and edema much better Feels about back to baseline with shortness of breath and leg swelling Physical Exam 2 Physical Exam: PHYSICAL EXAMINATION Last 24h vital signs reviewed, see documentation in flowsheet General: sitting in bed HEENT: Normocephalic, atraumatic, pupils round and equal, sclerae anicteric, no conjunctival injection, moist mucus membranes Lungs: Normal respiratory effort. CTAB Heart: Regular rate and rhythm, no mrg. Abdomen: Soft, nontender, nondistended. Bowel sounds present. Extremities: Warm, dry, well-perfused. LE are large but no edema, at least no pitting edema Neuro: Alert and oriented x 4, face symmetric, L facial droop and LUE>LLE weakness unchanged Psych: Normal affect and behavior Results & Data Results & Data Vital Signs (Past 12 Hours) Vital Signs Temp Pulse Pulse Resp BP Pulse Ox O2 Del Method 09/27/23 15:18 36.2 C L 64 20 100/66 97 Nasal Cannula 09/27/23 11:16 36.4 C L 58 L 20 95/59 L 94 Nasal Cannula 09/27/23 09:00 Nasal Cannula 09/27/23 09:00 09/27/23 07:35 36.5 C 62 20 116/71 96 Nasal Cannula 09/27/23 06:01 57 L O2 Del Method O2 Flow Rate O2 Flow Rate 09/27/23 15:18 4 09/27/23 11:16 4 09/27/23 09:00 2 09/27/23 09:00 Nasal Cannula 2 09/27/23 07:35 4 09/27/23 06:01 Laboratory Results 09/24/23 13:08 09/27/23 08:42 PG Care Time/CCT Total # of Minutes Spent Total Time Spent with Patient: Total time spent is greater than 50% in coordination of care (as documented) at patient's floor/unit and/or counseling patient: Coding Level of Care Code 86685 SUB INP/OBS CARE 2/35MIN Diagnoses Acute on chronic heart failure with preserved ejection fraction (HFpEF) I50.33 Dysuria R30.0 Rash R21 Hypokalemia E87.6 Chronic right arterial ischemic stroke, MCA (middle cerebral artery) I69.30 Anxiety F41.9 Anemia D64.9 Anemia type: unspecified type Primary hypothyroidism E03.9 (7) Anemia Anemia type: unspecified type Qualified Code(s): D64.9 - Anemia, unspecified
[2023-09-27] MEDS: BUMETANIDE 1 MG TAB PO SCH (17:45)
[2023-09-28 08:59] LABS: BUN Creatinine Ratio 17.4 (10-20); Calcium 9.2 mg/dl (8.6-10.3); Creatinine Clr Calc Pharmacy 145.4 ml/min; Est GFR (African American) 92.2 ml/min; Est GFR (Non-African American) 79.5 ml/min; Magnesium 1.9 mg/dl (1.7-2.4); Potassium 4.6 mmol/L (3.5-5.1)
--- NOTE | 2023-09-28 18:22 | Discharge Summary ---
Date of Service September 28, 2023 Admission HPI Per Admitting Provider Michelle Salcido is a 38 year old female with prior CVA, chronic CHF who presents to the ER with increased weight, shortness of breath, leg swelling. She reports slow progressive symptoms over the last month in absence of chest pain. Associated dry cough. No fever or chills. Baseline oxygen requirement of 2LPM O2 but recently she has had to increase this to 4LPM. She was advised to go to the ER as already taking 4mg Bumex PO BID and prior metolazone use led to hypotension in July this year requiring overnight IV fluids. She notably has also had dysuria for the last 2 days in absence of other urinary symptoms. Principal Diagnosis Acute on chronic diastolic heart failure Discharge Exam PHYSICAL EXAMINATION Last 24h vital signs reviewed, see documentation in flowsheet General: sitting in bed HEENT: Normocephalic, atraumatic, pupils round and equal, sclerae anicteric, no conjunctival injection, moist mucus membranes Lungs: Normal respiratory effort. CTAB Heart: Regular rate and rhythm, no mrg. Abdomen: Soft, nontender, nondistended. Bowel sounds present. Extremities: Warm, dry, well-perfused. LE are large but no edema, at least no pitting edema Neuro: Alert and oriented x 4, face symmetric, L facial droop and LUE>LLE weakness unchanged Psych: Normal affect and behavior Discharge Data Allergies Allergy/AdvReac Type Severity Reaction Status Date / Time sulfamethoxazole Allergy Severe Anaphylaxis Verified 08/26/23 13:34 [From Bactrim] trimethoprim [From Bactrim] Allergy Severe Anaphylaxis Verified 08/26/23 13:34 atorvastatin AdvReac Intermediate Muscle Pain Verified 08/26/23 13:34 Consultations 09/24/23 22:01 [facility] [place] CHF Program Referral Routine Hospital Course (1) Acute on chronic heart failure with preserved ejection fraction (HFpEF): Michelle Salcido is a 37yo female with history of mitral valve endocarditis s/p bioprosthetic mitral valve replacement in June 2022, HFpEF presenting with acute on chronic heart failure Outpatient regimen bumex 4mg PO BID, metolazone on hold due to hypotension previously. Per clinic notes dry weight 380, trending up to 401 recently in clinic, 405 pounds on HD 2 Baseline 2L home O2 for chronic hypoxic respiratory failure Suspected to have [place] but getting sleep study arranged has been challenging Does not appear to have pneumonia, CRP elevated but serial procal negative. presentation not very suspicious for PE. has had good response to diuresis with respect to dyspnea now on baseline home O2 This episode was precipitated by eating out at a [place] food buffet for her birthday. Typically her mother has her on a strict low salt and fluid restriction at home. -diuresed with Bumex 4mg IV BID, changed to oral bumex afternoon of 09/26. appears euvolemic -TTE obtained - unchanged from prior 6 mo ago. E F50-55%, bioprosthetic MV functioning well, nl RV function -increased spironolactone to 50 mg -discussed with HF program Emy Malone on 09/25 - has follow up scheduled with clinic within 2 weeks and has cardiology appt with Dr. Tovar late September (2) Dysuria: UA normal (3) Rash: Right upper extremity. No cellulitis. Looks like keratosis pilaris recommended emollient cream BID, exfoliating (4) Hypokalemia: replaced. spironolactone was increased (5) Chronic right arterial ischemic stroke, MCA (middle cerebral artery): Residual left sided UE > LE weakness with left facial droop (6) Anxiety: Continue sertraline, trazodone HS (7) Anemia: At baseline, continue to monitor (8) Primary hypothyroidism: TSH WNL Continue levothyroxine Plan Chronic respiratory failure with hypoxia - remains on 2L nasal cannula at time of discharge, which is her baseline home O2 Encouraged sleep apnea testing - she is unable to do sleep lab study because she is not independently mobile with her L hemiparesis but they are actively working on getting a home sleep study arranged Total Time Total Time Spent Total Time Spent (In Minutes): 25 minutes Discharge Plan Discharge Items Patient Disposition: Home - Self-Care Reason For Visit: ACUTE ON CHRONIC HEART FAILURE WITH PRESERVED EJEC Discharge Diagnosis: Acute on chronic diastolic heart failure Activity: Resume your previous activity Non-emergency contact: Primary Care Provider and Subscription Agent Call non-emergency contact if: you have any medication questions and your symptoms worsen Follow-up/Referrals: Stacey Arce MD [Primary Care Provider] - Margie Malone [facility] [Physician [facility] [facility]] - 10/03/23 10:30 am Diet: Heart Healthy and Low Sodium (2gm) Fluids: 1500ml (6 cups) Addtl Attending Provider Instructions: Continue your fluid and salt restriction This episode was precipitated by fluid overload related to the [place] food We increased your spironolactone from 25 mg to 50 mg. This will give you some gentle increase in diuretic effect and help your potassium level stay up Your Echo was unchanged from this summer - that is good news. Left ventricle ejection fraction remains normal and unchanged and your mitral valve is working well. Your right sided heart squeeze was also normal. Follow up in heart failure clinic and with home sleep apnea testing Pending Studies at Discharge: No Stand-Alone Forms: My [facility] [employer] Smoking Cessation Medications and DC Order Prescriptions: New spironolactone 25 mg Tablet 50 mg PO QAM Qty: 60 0RF Continued (DME) Lift Chair Misc See Rx Instructions .Route Qty: 1 0RF Rx Instructions: As directed (DME) miscellaneous medical supply Misc See Rx Instructions .ROUTE .MEDSUPPLY Qty: 1 0RF Rx Instructions: Left wrist splint Dx: lt spastic hemiparesis epinephrine 0.3 mg/0.3 mL auto-injector 0.3 mg IM .COMPLEX PRN (Reason: anaphylaxis) Qty: 2 1RF Rx Instructions: 0.3 mg intramuscularly once but repeat dose x1 in 5-15min if needed PRN; After first injection, proceed to the ER bumetanide 2 mg tablet 4 mg PO BID Qty: 120 2RF Rx Instructions: take 7-8am each morning and about 3-4pm in the afternoon every day. gabapentin 600 mg tablet 600 mg PO TID Qty: 90 2RF potassium chloride 20 mEq tablet extended release 40 meq PO BID Qty: 120 5RF clonazepam 0.5 mg tablet 0.5 mg PO HS Qty: 30 0RF apixaban 2.5 mg tablet 2.5 mg PO BID Qty: 60 5RF baclofen 10 mg tablet 10 mg PO BID PRN (Reason: muscle stiffness/spasm) Qty: 60 5RF trazodone 50 mg tablet 50 mg PO HS Qty: 30 5RF (DME) Powered Wheelchair Misc See Rx Instructions .Route Qty: 1 0RF Rx Instructions: As directed ICD-10: G81.14, M17.11 (DME) Wheelchair (Manual) Device See Rx Instructions .Route Qty: 1 0RF Rx Instructions: As [id number] Z86.73 (DME) Hospital Bed Misc See Rx Instructions .Route Qty: 1 0RF Rx Instructions: As directed G81.9, I63.411 (DME) Manual Wheelchair Device See Rx Instructions .Route Qty: 1 0RF Rx Instructions: aly[address] drive WC please G81.9 ketoconazole 2 % cream 1 applic topical BID 28 Days Qty: 15 0RF Rx Instructions: apply to face methadone 10 mg Tablet 72 mg PO QAM melatonin 3 mg Tablet 3 mg PO HS aspirin 81 mg Tablet,Chewable 81 mg PO QAM multivitamin with minerals Tablet 1 tab PO QAM (DME) Oxygen Home E0424 Liters Per Minute See Rx Instructions .ROUTE .MEDSUPPLY Qty: 1 0RF Rx Instructions: 2 liters NC O2 with sleep. diclofenac sodium [Voltaren Arthritis Pain] 1 % Gel 4 g EXT QID PRN (Reason: right knee pain OR back pain) Qty: 1 0RF acetaminophen [Tylenol 8 Hour] 650 mg tablet extended release 650 mg PO Q8H PRN (Reason: fever or pain) Qty: 1 0RF polyethylene glycol 3350 [Miralax] 17 gram powder in packet 17 g PO DAILY PRN (Reason: Constipation) Rx Instructions: you can purchase daily, individual packets OR a bottle; both are [id number]. fluticasone propionate 100 mcg/actuation Blister With Device 1 inh INHALATION BID metolazone 2.5 mg tablet 2.5 mg PO Q OTHER DAY Hold Instructions: Resume on 08/17/23. levothyroxine 75 mcg tablet 75 mcg PO DAILYBB metoprolol tartrate 50 mg tablet 25 mg PO BID magnesium oxide 400 mg (241.3 mg magnesium) tablet 400 mg PO HS pantoprazole 40 mg tablet,delayed release (DR/EC) 40 mg PO QAM sertraline 100 mg tablet 200 mg PO QAM Discontinued spironolactone 25 mg tablet 25 mg PO QAM Discharge Orders: Discharge Order (Routine); Ordered 09/28/23 Ordered By: Agueda Sands Admission Data Admit Date/Time: 09/24/23 16:35 Attending Provider: Agueda Sands Admit Provider: Kurt Ortez Primary Care Provider: Stacey Arce Other Providers: Margie Malone Other Interventions: Discharge Summary Assessment (RN) Last Done: 09/28/23 11:42 Coding Level of Care Code 80036 IN/OBS DISCH 30 MIN/LESS Diagnoses Acute on chronic heart failure with preserved ejection fraction (HFpEF) I50.33 Dysuria R30.0 Rash R21 Hypokalemia E87.6 Chronic right arterial ischemic stroke, MCA (middle cerebral artery) I69.30 Anxiety F41.9 Anemia D64.9 Anemia type: unspecified type Primary hypothyroidism E03.9
== END 2023-09-28 14:00 | disposition home or self-care (01) | DRG 292 ==
LOC: ED 11:04 → SUATTDRO 16:35 → EDINP 16:35 → 2N 17:13

== ENCOUNTER 2023-11-12 17:24 | Observation (INO) ==
--- NOTE | 2023-11-12 17:40 | ED Triage Note ---
Date of Service November 12, 2023 Provider in Triage Author: Bruce Marcus History of Present Illness This patient was briefly evaluated while in triage. An abbreviated physical exam was performed. This patient is a 38-year-old Female, history of CHF and bioprosthetic mitral valve replacement, who presents to the ED for evaluation of chest pain radiating into the throat and jaw arm. Patient reports that she is also currently in congestive heart failure. Patient had a mitral valve replaced last year in [place]. Physical Exam CONSTITUTIONAL: Healthy and well nourished. Patient does not appear in any acute respiratory distress. HEENT: No scleral icterus or conjunctival injection. LYMPHATICS: No cervical chain adenopathy. RESPIRATORY: Lung sounds are distant without obvious wheezing, crackles, rhonchi or stridor. CARDIOVASCULAR: Regular rate and rhythm with no murmurs, rubs or gallops. MUSCULOSKELETAL: The patient does have peripheral edema. INTEGUMENTARY: No rash or other significant dermatologic conditions noted. HEMATOLOGIC: No ecchymosis or petechiae. PSYCHIATRIC: Positive affect. NEUROLOGIC: No focal neurologic deficits noted. Initial orders for labs and / or imaging were placed and patient was placed in the waiting area until a bed is available. Please see further documentation for the full ED course.
[2023-11-12 19:38] LABS: Basophils # (auto) 0.05 K/uL (0.00-0.20); Basophils % (auto) 0.6 %; Eosinophils # (auto) 0.38 K/uL (0.00-0.50); Eosinophils % (auto) 4.2 %; Hematocrit (blood only) 37.7 % (37.0-47.0); Hemoglobin 11.1 g/dl (12.0-16.0); Immature Granulocytes # (auto) 0.03 K/uL (0.01-0.20); Immature Granulocytes % (auto) 0.3 %; Lymphocytes # (auto) 2.19 K/uL (1.20-3.40); Lymphocytes % (auto) 24.5 %; Mean Corpuscular Hemoglobin 23.8 pg (25.0-34.0); Mean Corpuscular Hgb Conc 29.4 g/dL (32.0-36.0); Mean Corpuscular Volume 80.7 fL (80.0-100.0); Mean Platelet Volume 9.5 fL (9.4-12.4); Monocytes # (auto) 0.46 K/uL (0.11-0.59); Monocytes % (auto) 5.1 %; Neutrophils # (auto) 5.84 K/uL (1.40-6.50); Neutrophils % (auto) 65.3 %; Platelet Count 524 K/uL (130-400); RDW Coefficient of Variation 14.8 % (11.5-14.5); RDW Standard Deviation 43.1 fL (36.4-46.3); Red Blood Count 4.67 M/uL (4.20-5.40); White Blood Count 8.95 K/ul (4.8-10.8)
[2023-11-12 19:49] LABS: Alanine Aminotransferase 23 U/L (7-52); Albumin Globulin Ratio 0.8 (0.9-2); Alkaline Phosphatase 88 U/L (34-104); Anion Gap 10 (3-11); Aspartate Aminotransferase 29 U/L (13-39); BUN Creatinine Ratio 14.7 (10-20); Bilirubin,Total 0.4 mg/dl (0.2-1.0); Blood Urea Nitrogen 14 mg/dl (6-23); Calcium 9.1 mg/dl (8.6-10.3); Carbon Dioxide 33 mmol/L (21-32); Chloride 93 mmol/L (98-107); Est GFR (African American) 88.7 ml/min; Est GFR (Non-African American) 76.5 ml/min; Glucose 108 mg/dl (70-99(Fasting)); Lipase 20 U/L (11-82); Potassium 3.2 mmol/L (3.5-5.1); Sodium 136 mmol/L (136-145)
[2023-11-12 19:55] LABS: Troponin I High Sensitivity 2.7 pg/ml (0-14)
[2023-11-12 20:01] LABS: Partial Thromboplastin Ratio 1.1; Partial Thromboplastin Time 30 Seconds (21-31); Prothrombin Time 10.6 Seconds (9.0-12.0)
[2023-11-12 21:12] LABS: D Dimer 610 ug/L FEU (0-500)
--- NOTE | 2023-11-12 21:21 | History & Physical Report ---
Date of Service November 12, 2023 Assessment & Plan (1) Chest pain: Plan: Two episodes of substernal chest pain with radiation to the jaw/neck on 11/10 and 11/11 Episodes last several minutes at a time; initially patient thought it was GERD, but then developed "throbbing" pain in her chest Patient reports taking low-dose Eliquis 2.5mg BID for DVT PPx However, given acute onset of symptoms, (+) D-dimer, and hemoptysis x 1 episode, will order chest CTA for PE r/o Patient also notes that her household is currently sick with flulike symptoms Biofire ordered, pending Patient is chest pain-free at time of admission Troponin WNL on arrival; will obtain AM troponin EKG showed NSR at 92 bpm; QTc 504 Broad DDx: symptoms suggestive of GERD, however PE, viral illness, mitral valve infection, and unstable angina (among other etiologies) can not be ruled out at this time Continuous telemetry monitoring A.m. CBC, BMP, Mag, Troponin (2) Acute on chronic heart failure with preserved ejection fraction (HFpEF): Plan: Patient follows with heart failure clinic Patient reports that her shortness of breath is both at rest and with exertion, but it is not greatly different from her baseline Continue Bumex, metolazone, and spironolactone as prescribed AHA, low-sodium diet Daily weights Last Echo on 09/26/23 revealed LV EF at 50-55% (3) Chronic respiratory failure with hypoxia: Plan: Patient is on 4L NC supplemental oxygen at baseline Titrate supplemental oxygen as needed to maintain SpO2 >94% Continuous pulse oximetry (4) S/P mitral valve replacement with bioprosthetic valve: Plan: In Jun 2022 Echocardiogram ordered for morning of 11/12 (5) Hypokalemia: Plan: Chronic; K 3.2 on arrival Likely secondary to diuretic use Additional K 40mEq given Continue potassium supplementation BID Follow AM BMP (6) Chronic right arterial ischemic stroke, MCA (middle cerebral artery): Plan: CVA in 2019 With residual left-sided hemiparesis (7) Morbid obesity: Plan: BMI 66.0 Bariatric bed (8) GERD (gastroesophageal reflux disease): Plan: Continue pantoprazole Will add on famotidine 20mg IV daily (9) Drug abuse in remission: Plan: Continue methadone (10) Tobacco dependence: Plan: Patient denies tobacco use at time of admission (11) Sleep apnea: Plan: Patient denies CPAP use (12) Bipolar disorder: (13) Hepatitis C: Plan Disposition: Admit to [facility] [place] telemetry Full code AHA, low-sodium diet VTE PPx: Continue Eliquis (patient takes reduced dose, 2.5mg BID for DVT PPx) History of Present Illness Chief Complaint: Chest pain Primary Care Provider: Stacey Arce MD Michelle is a 38-year-old female with PMH of CVA in 2019 with left hemiparesis, HFpEF, hepatitis C, opioid use disorder in remission, endocarditis s/p mitral valve replacement with bioprosthetic valve, primary hypothyroidism, dysphagia, CARINA, bipolar disorder, and anxiety. She presented via EMS for chest pain with radiation into her throat and jaw on 11/11. Has had 2 episodes of this chest pain over the past couple days. The chest pain is substernal, and she initially thought it was gastric reflux, but then her heart with throbbing pain. The pain lasts for several minutes at a time. It radiates up to her neck and jaw, and slightly to the shoulders bilaterally. No radiation down the arms. Patient took all of her regular morning medications today; no recent change in medications. She reports good compliance with taking her Eliquis. Patient medications are managed by her mother, who fills her medicine container monthly. She reports that she was given aspirin 324 mg in the ambulance. No history of DVT/PE to her knowledge. Patient is on 4 L NC supplemental oxygen at baseline, but she sometimes comes up to 5 L as needed. She denies CPAP use at night. She has mild SOB with exertion and at rest at baseline ever since her stroke in 2019; she denies any change from her baseline. She also notes that she has had a rash on her face for the past month, which she initially thought to be psoriasis. She does have a history of GERD, but this does not feel like past episodes according to her. Her family members (mom, stepdad, and daughter are all sick with flulike symptoms). She denies recent smoking, alcohol use, and recreational drug use. She is chest pain-free at time of admission. Patient was mildly hypotensive at about 116/58, and mildly tachycardic at 95 bpm on arrival; patient's vitals are stable at time of admission; SpO2 96% on 4L NC. ED course: ROS: Patient endorses increased fatigue, chest pain, productive cough (dark malhotra/green x 1 mo), and hemoptysis x1 episode last week. Patient denies fever, chills, night-sweats, WILL, dizzy, lightheadedness, confusion, SOB, pleuritic CP, chest palpitations, abdominal pain, N/V, or changes in urinary/bowel habits. Please see Dr. Poe's attestation for any changes to treatment plan. Allergies Allergy/AdvReac Type Severity Reaction Status Date / Time sulfamethoxazole Allergy Severe Anaphylaxis Verified 11/12/23 21:45 [From Bactrim] trimethoprim [From Bactrim] Allergy Severe Anaphylaxis Verified 11/12/23 21:45 atorvastatin AdvReac Intermediate Muscle Pain Verified 11/12/23 21:45 Home Medications Medication Instructions Recorded Confirmed Type Wheelchair (Manual) #1 ea 03/25/22 09/24/23 Rx Hospital Bed Homecare (Hospital #1 ea 04/18/22 09/24/23 Rx Bed) Wheelchair (Manual) (Manual #1 ea 04/18/22 09/24/23 Rx Wheelchair) Lift Chair #1 ea 10/09/22 09/24/23 Rx miscellaneous medical supply #1 ea 10/16/22 09/24/23 Rx aspirin 81 mg chewable tablet 81 mg PO QAM 12/16/22 11/12/23 History melatonin 3 mg tablet 3 mg PO HS 12/16/22 11/12/23 History methadone 10 mg tablet 72 mg PO QAM 12/16/22 11/12/23 History multivitamin with minerals 1 tab PO QAM 12/16/22 11/12/23 History epinephrine 0.3 mg/0.3 mL 0.3 mg (0.3 mL) IM .COMPLEX PRN 12/26/22 11/12/23 Rx injection, auto-injector anaphylaxis #2 ea Oxygen Home #1 ea 01/26/23 09/24/23 Rx acetaminophen 650 mg 650 mg PO Q8H PRN fever or pain #1 02/24/23 11/12/23 Rx tablet,extended release (Tylenol 8 tab Hour) diclofenac sodium 1 % topical gel 4 g EXT QID PRN right knee pain OR 02/24/23 11/12/23 Rx (Voltaren Arthritis Pain) back pain #1 tube bumetanide 2 mg tablet 4 mg (2 x 2 mg) PO BID #120 tabs 03/06/23 11/12/23 Rx polyethylene glycol 3350 17 gram 17 g PO DAILY PRN Constipation 05/01/23 11/12/23 History oral powder packet (Miralax) Powered Wheelchair #1 ea 05/27/23 09/24/23 Rx potassium chloride 20 mEq 40 meq (2 x 20 mEq) PO BID #120 06/05/23 11/12/23 Rx tablet,extended release tabs fluticasone propionate 100 1 inh inhalation BID 08/08/23 11/12/23 History mcg/actuation blister powder for inhalation metolazone 2.5 mg tablet 2.5 mg PO Q OTHER DAY 08/08/23 11/12/23 History apixaban 2.5 mg tablet 2.5 mg PO BID #60 tabs 09/09/23 11/12/23 Rx baclofen 10 mg tablet 10 mg PO BID PRN muscle 09/19/23 11/12/23 Rx stiffness/spasm #60 tabs trazodone 50 mg tablet 50 mg PO HS #30 tabs 09/19/23 11/12/23 Rx levothyroxine 75 mcg tablet 75 mcg PO DAILYBB 09/24/23 11/12/23 History magnesium oxide 400 mg (241.3 mg 400 mg PO HS 09/24/23 11/12/23 History magnesium) tablet pantoprazole 40 mg tablet,delayed 40 mg PO QAM 09/24/23 11/12/23 History release sertraline 100 mg tablet 200 mg PO QAM 09/24/23 11/12/23 History spironolactone 25 mg tablet 50 mg (2 x 25 mg) PO QAM #60 tabs 09/28/23 11/12/23 Rx gabapentin 600 mg tablet 600 mg PO TID #90 tabs 09/29/23 11/12/23 Rx metoprolol tartrate 50 mg tablet 25 mg (1/2 x 50 mg) PO BID #30 tabs 10/10/23 11/12/23 Rx clonazepam 0.5 mg tablet 0.5 mg PO HS #30 tabs 10/28/23 11/12/23 Rx ketoconazole 2 % topical cream 1 applic topical BID PRN NEEDED 11/12/23 11/12/23 History Past Med/Surg History Problem List (Updated 11/13/23 @ 14:39 by Elisabeth Torres PA-C) Constipation GERD (gastroesophageal reflux disease) Chronic respiratory failure with hypoxia Chest pain (Acute) Acute on chronic respiratory failure with hypoxia Morbid obesity Acute on chronic heart failure with preserved ejection fraction (HFpEF) Hypokalemia (Acute) Tobacco dependence S/P mitral valve replacement with bioprosthetic valve (Acute 06/2022) Physical deconditioning Right knee DJD Knee arthropathy Leg swelling (Acute) Primary hypothyroidism Sleep apnea (Acute) Left spastic hemiparesis Hepatitis C Anxiety Anemia (Acute) (HFpEF) heart failure with preserved ejection fraction Nocturnal hypoxemia Obstructive sleep apnea Obesity hypoventilation syndrome Bipolar disorder Constipation due to pain medication Chronic right arterial ischemic stroke, MCA (middle cerebral artery) Ambulatory dysfunction Seborrheic dermatitis Urinary retention with incomplete bladder emptying Drug abuse in remission Facial droop due to old stroke Homonymous hemianopsia due to recent cerebrovascular accident (Acute) Dysphagia Medical History Right knee pain Cirrhosis Fatty liver ANTWAN (acute kidney injury) Back pain Hypothyroidism Snoring Iron deficiency B12 deficiency Thalassemia Edema, peripheral Splenic abscess Splenomegaly Hypoxia Opioid use disorder, severe, in sustained remission on maintenance therapy Methadone MENDEZ (generalized anxiety disorder) Major depressive disorder, recurrent episode, moderate with anxious distress Left-sided weakness History of embolic stroke Rt MCA History of stroke Drug abuse and dependence Endocarditis PCOS (polycystic ovarian syndrome) Surgical History H/O mitral valve replacement History of repair of ACL History of section History of tubal ligation Family History Grandmother (Paternal) Breast cancer Grandfather (Maternal) Myocardial infarction Graves disease Grandfather (Paternal) Myocardial infarction Other Thalassemia Denies family history of Colon cancer Ovarian cancer Prostate cancer Social History Smoking Status: Former smoker Tobacco Type: Cigarettes packs per day: 1; Second Hand Exposure: No; Do You Dip or Chew Tobacco: No; Hx Alcohol Use: No Hx Substance Use: No Preferred Language: Estonian Communication Ability: Effective Visual Impairment: No Limitations Hearing Ability: Normal Automobile And Property Underwriter Required: No Beliefs That Will Affect Care: None marital status: Single Current Living Situation: Family Current Living Situation Comment: home with daughter and mom current occupational status: employed current occupation: [employer] Feels Safe at Home: Yes Childhood Exposure to Second-Hand Smoke: No Diet: regular Diet Comment: regular Dental Care, Regularly: No Physical Activity Frequency: Does not Exercise Seatbelt Use: sometimes Sunscreen Use: No Assistive Devices: Oxygen - Continuous, Walker and Wheelchair Review of Systems Review of Systems: See HPI above Physical Exam Physical Exam: General: Diaphoretic; lethargic; non-toxic appearing; cooperative; SpO2 96% on 4L NC HEENT: normocephalic, atraumatic; no scleral icterus; PERRLA; moist mucus membrane; vision and hearing intact Neck: supple; no lymphadenopathy; trachea midline Skin: Superficial rash on face and right arm; warm, without signs of tenting; no cyanosis; no bruising, or lesions noted CV: chest wall NTP; RRR; S1/S2 normal; no murmurs/rubs/gallops; pulses intact and symmetric at radial, DP, and PT Lungs: Mild respiratory distress; symmetrical chest wall expansion; clear breath sounds across all lung [place] w/o adventitious sounds; no wheezing ABD: Soft, NTP; BS present; no rebound/guarding; suboptimal exam secondary to patient's body habitus MSK: no tics or fasciculations; significant +2 pitting edema edema noted in the LEs b/l, nonerythematous; residual deficit in left upper extremity; however, patient demonstrates ability to wiggle toes bilaterally Neuro: A&Ox3; normal mood and affect; slurred speech; left-sided facial droop; patient reports intact and symmetric sensation in the lower extremities bilaterally Results & Data Results & Data Vital Signs (Past 12 Hours) Vital Signs Temp Pulse Pulse Resp BP BP Pulse Ox 11/12/23 19:53 89 18 102/71 96 11/12/23 17:35 36.5 C 95 H 18 116/58 L 94 O2 Del Method O2 Flow Rate 11/12/23 19:53 Nasal Cannula 4 11/12/23 17:35 Nasal Cannula 4 Laboratory Results Abnormal lab results 11/12/23 Range/Units 18:51 Hgb 11.1 L (12.0-16.0) g/dl MCH 23.8 L (25.0-34.0) pg MCHC 29.4 L (32.0-36.0) g/dL RDW Coeff of Alexia 14.8 H (11.5-14.5) % Plt Count 524 H (130-400) K/uL D-Dimer 610 H* (0-500) ug/L FEU Potassium 3.2 L (3.5-5.1) mmol/L Chloride 93 L (98-107) mmol/L Carbon Dioxide 33 H (21-32) mmol/L Glucose 108 H (70-99(Fasting)) mg/dl Total Protein 9.0 H (6.0-8.3) gm/dl Globulin 5.0 H (2.5-4.0) gm/dl Albumin/Globulin Ratio 0.8 L (0.9-2) ECG Additional Comments: ECG revealed NSR at 92 bpm; QTc 504 Code Status & VTE Plan Code Status Full code VTE Prophylaxis Plan VTE Prophylaxis will be ordered: Yes Supervising Physician Co-Signing Physician Notes Patient seen and examined, chart reviewed, case discussed with RUTH Mckeon and I agree with the assessment and plan as above. After admission patient refused testing -CTA and doppler. Stated that she was too tired to have anything else done tonight Remainder as above PG Care Time/CCT Total # of Minutes Spent Total Time Spent with Patient: Total time spent is greater than 50% in coordination of care (as documented) at patient's floor/unit and/or counseling patient: C[place] [address] INT INP/OBS CARE 3/75MIN Patient Type Established Medical Decision Making High Complexity Diagnoses Chest pain R07.9 Acute on chronic heart failure with preserved ejection fraction (HFpEF) I50.33 Chronic respiratory failure with hypoxia J96.11 S/P mitral valve replacement with bioprosthetic valve Z95.3 Hypokalemia E87.6 Chronic right arterial ischemic stroke, MCA (middle cerebral artery) I69.30 Morbid obesity E66.01 GERD (gastroesophageal reflux disease) K21.9 Drug abuse in remission F19.11 Tobacco dependence F17.200 Sleep apnea G47.30 Sleep apnea type: unspecified type Bipolar disorder F31.9 Hepatitis C B19.20 (11) Sleep apnea Sleep apnea type: unspecified type Qualified Code(s): G47.30 - Sleep apnea, unspecified
[2023-11-12] MEDS: FAMOTIDINE 20MG IV PUSH 20 MG/5 ML SYR IV ONE (22:44)
[2023-11-12] MEDS: POTASSIUM CHLORIDE CRTAB 20 MEQ TABCR PO STA (22:44)
--- NOTE | 2023-11-12 23:17 | Emergency Department Note ---
History of Present Illness General Chief Complaint: Chest Pain Stated Complaint: CHEST PAIN Time Seen by Provider: 11/12/23 20:51 History of Present Illness Provider Complaint: chest pain Onset (ago): day(s) 4 Duration: intermittent Onset: during rest Pain Location: substernal Maximum Pain Intensity: 0 Quality: + aching Relieved By: + nothing Exacerbated By: + nothing Context: no recent illness, no recent surgery, no recent immobilization, no recent travel, no trauma/injury or no new medications Associated symptoms: + dyspnea; no diaphoresis, no syncope, no palpitations or no cough Home Medications Medication Instructions Recorded Confirmed Type Wheelchair (Manual) #1 ea 03/25/22 09/24/23 Rx Hospital Bed Homecare (Hospital #1 ea 04/18/22 09/24/23 Rx Bed) Wheelchair (Manual) (Manual #1 ea 04/18/22 09/24/23 Rx Wheelchair) Lift Chair #1 ea 10/09/22 09/24/23 Rx miscellaneous medical supply #1 ea 10/16/22 09/24/23 Rx aspirin 81 mg chewable tablet 81 mg PO QAM 12/16/22 11/12/23 History melatonin 3 mg tablet 3 mg PO HS 12/16/22 11/12/23 History methadone 10 mg tablet 72 mg PO QAM 12/16/22 11/12/23 History multivitamin with minerals 1 tab PO QAM 12/16/22 11/12/23 History epinephrine 0.3 mg/0.3 mL 0.3 mg (0.3 mL) IM .COMPLEX PRN 12/26/22 11/12/23 Rx injection, auto-injector anaphylaxis #2 ea Oxygen Home #1 ea 01/26/23 09/24/23 Rx acetaminophen 650 mg 650 mg PO Q8H PRN fever or pain #1 02/24/23 11/12/23 Rx tablet,extended release (Tylenol 8 tab Hour) diclofenac sodium 1 % topical gel 4 g EXT QID PRN right knee pain OR 02/24/23 11/12/23 Rx (Voltaren Arthritis Pain) back pain #1 tube bumetanide 2 mg tablet 4 mg (2 x 2 mg) PO BID #120 tabs 03/06/23 11/12/23 Rx polyethylene glycol 3350 17 gram 17 g PO DAILY PRN Constipation 05/01/23 11/12/23 History oral powder packet (Miralax) Powered Wheelchair #1 ea 05/27/23 09/24/23 Rx potassium chloride 20 mEq 40 meq (2 x 20 mEq) PO BID #120 06/05/23 11/12/23 Rx tablet,extended release tabs fluticasone propionate 100 1 inh inhalation BID 08/08/23 11/12/23 History mcg/actuation blister powder for inhalation metolazone 2.5 mg tablet 2.5 mg PO Q OTHER DAY 08/08/23 11/12/23 History apixaban 2.5 mg tablet 2.5 mg PO BID #60 tabs 09/09/23 11/12/23 Rx baclofen 10 mg tablet 10 mg PO BID PRN muscle 09/19/23 11/12/23 Rx stiffness/spasm #60 tabs trazodone 50 mg tablet 50 mg PO HS #30 tabs 09/19/23 11/12/23 Rx levothyroxine 75 mcg tablet 75 mcg PO DAILYBB 09/24/23 11/12/23 History magnesium oxide 400 mg (241.3 mg 400 mg PO HS 09/24/23 11/12/23 History magnesium) tablet pantoprazole 40 mg tablet,delayed 40 mg PO QAM 09/24/23 11/12/23 History release sertraline 100 mg tablet 200 mg PO QAM 09/24/23 11/12/23 History spironolactone 25 mg tablet 50 mg (2 x 25 mg) PO QAM #60 tabs 09/28/23 11/12/23 Rx gabapentin 600 mg tablet 600 mg PO TID #90 tabs 09/29/23 11/12/23 Rx metoprolol tartrate 50 mg tablet 25 mg (1/2 x 50 mg) PO BID #30 tabs 10/10/23 11/12/23 Rx clonazepam 0.5 mg tablet 0.5 mg PO HS #30 tabs 10/28/23 11/12/23 Rx ketoconazole 2 % topical cream 1 applic topical BID PRN NEEDED 11/12/23 11/12/23 History Allergies Allergy/AdvReac Type Severity Reaction Status Date / Time sulfamethoxazole Allergy Severe Anaphylaxis Verified 11/12/23 21:45 [From Bactrim] trimethoprim [From Bactrim] Allergy Severe Anaphylaxis Verified 11/12/23 21:45 atorvastatin AdvReac Intermediate Muscle Pain Verified 11/12/23 21:45 Past Med/Surg History Problem List (Updated 11/12/23 @ 23:23 by [place] MD) GERD (gastroesophageal reflux disease) Chronic respiratory failure with hypoxia Chest pain (Acute) Acute on chronic respiratory failure with hypoxia Morbid obesity Acute on chronic heart failure with preserved ejection fraction (HFpEF) Hypokalemia (Acute) Tobacco dependence S/P mitral valve replacement with bioprosthetic valve (Acute 06/2022) Physical deconditioning Right knee DJD Knee arthropathy Leg swelling (Acute) Primary hypothyroidism Sleep apnea (Acute) Left spastic hemiparesis Hepatitis C Anxiety Anemia (Acute) (HFpEF) heart failure with preserved ejection fraction Nocturnal hypoxemia Obstructive sleep apnea Obesity hypoventilation syndrome Bipolar disorder Constipation due to pain medication Chronic right arterial ischemic stroke, MCA (middle cerebral artery) Ambulatory dysfunction Seborrheic dermatitis Urinary retention with incomplete bladder emptying Drug abuse in remission Facial droop due to old stroke Homonymous hemianopsia due to recent cerebrovascular accident (Acute) Dysphagia Medical History Right knee pain Cirrhosis Fatty liver ANTWAN (acute kidney injury) Back pain Hypothyroidism Snoring Iron deficiency B12 deficiency Thalassemia Edema, peripheral Splenic abscess Splenomegaly Hypoxia Opioid use disorder, severe, in sustained remission on maintenance therapy Methadone MENDEZ (generalized anxiety disorder) Major depressive disorder, recurrent episode, moderate with anxious distress Left-sided weakness History of embolic stroke Rt MCA History of stroke Drug abuse and dependence Endocarditis PCOS (polycystic ovarian syndrome) Surgical History H/O mitral valve replacement History of repair of ACL History of section History of tubal ligation Family History Grandmother (Paternal) Breast cancer Grandfather (Maternal) Myocardial infarction Graves disease Grandfather (Paternal) Myocardial infarction Other Thalassemia Denies family history of Colon cancer Ovarian cancer Prostate cancer Social History Smoking Status: Former smoker Tobacco Type: Cigarettes packs per day: 1; Second Hand Exposure: No; Do You Dip or Chew Tobacco: No; Hx Alcohol Use: No Hx Substance Use: No Preferred Language: Japanese Communication Ability: Effective Visual Impairment: No Limitations Hearing Ability: Normal Pecan Grower Required: No Beliefs That Will Affect Care: None marital status: Single Current Living Situation: Family Current Living Situation Comment: home with daughter and mom 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 Feels Safe at Home: Yes Childhood Exposure to Second-Hand Smoke: No Diet: regular Diet Comment: regular Dental Care, Regularly: No Physical Activity Frequency: Does not Exercise Seatbelt Use: sometimes Sunscreen Use: No Assistive Devices: Oxygen - Continuous, Walker and Wheelchair Physical Exam Vital Signs Vital Signs - 24 hr 11/12/23 17:35 11/12/23 17:40 11/12/23 19:53 Temperature 36.5 C Temperature Source Temporal Artery Scan Pulse Rate 95 H Pulse Rate [Right Finger] 89 Pulse Rate from SpO2 Sensor Pulse Rhythm Regular Pulse Strength Normal Respiratory Rate 18 18 Respiratory Effort / Characteristics Non-Labored Non-Labored Respiratory Depth Normal Normal Respiratory Pattern Regular Regular Blood Pressure 116/58 L Blood Pressure [Right Arm] 102/71 Blood Pressure Mean 77 Blood Pressure Mean [Right Arm] 81 Blood Pressure Position Sitting Pulse Oximetry 94 98 96 Oxygen Delivery Method Nasal Cannula Nasal Cannula Nasal Cannula Oxygen Flow Rate 4 4 4 Sepsis Recent Fever Within 48 Hours No Sepsis New/Unexplained Change in Mental Status No Sepsis Action Taken by Nursing No Action Required 11/12/23 20:57 11/12/23 21:00 11/12/23 21:00 Temperature Temperature Source Pulse Rate 85 80 Pulse Rate [Right Finger] Pulse Rate from SpO2 Sensor 85 80 Pulse Rhythm Pulse Strength Respiratory Rate 19 15 Respiratory Effort / Characteristics Respiratory Depth Respiratory Pattern Blood Pressure 104/64 Blood Pressure [Right Arm] Blood Pressure Mean 72 Blood Pressure Mean [Right Arm] Blood Pressure Position Pulse Oximetry 97 96 Oxygen Delivery Method Oxygen Flow Rate Sepsis Recent Fever Within 48 Hours Sepsis New/Unexplained Change in Mental Status Sepsis Action Taken by Nursing 11/12/23 21:10 11/12/23 21:19 11/12/23 21:20 Temperature Temperature Source Pulse Rate 78 86 77 Pulse Rate [Right Finger] Pulse Rate from SpO2 Sensor 79 77 Pulse Rhythm Pulse Strength Respiratory Rate 16 12 Respiratory Effort / Characteristics Respiratory Depth Respiratory Pattern Blood Pressure Blood Pressure [Right Arm] Blood Pressure Mean Blood Pressure Mean [Right Arm] Blood Pressure Position Pulse Oximetry 97 97 Oxygen Delivery Method Oxygen Flow Rate Sepsis Recent Fever Within 48 Hours Sepsis New/Unexplained Change in Mental Status Sepsis Action Taken by Nursing 11/12/23 21:30 11/12/23 21:30 11/12/23 21:40 Temperature Temperature Source Pulse Rate 76 78 Pulse Rate [Right Finger] Pulse Rate from SpO2 Sensor 76 78 Pulse Rhythm Pulse Strength Respiratory Rate 15 14 Respiratory Effort / Characteristics Respiratory Depth Respiratory Pattern Blood Pressure 109/60 Blood Pressure [Right Arm] Blood Pressure Mean 78 Blood Pressure Mean [Right Arm] Blood Pressure Position Pulse Oximetry 98 96 Oxygen Delivery Method Oxygen Flow Rate Sepsis Recent Fever Within 48 Hours Sepsis New/Unexplained Change in Mental Status Sepsis Action Taken by Nursing 11/12/23 21:50 11/12/23 22:00 11/12/23 22:00 Temperature 37 C Temperature Source Oral Pulse Rate 78 83 Pulse Rate [Right Finger] Pulse Rate from SpO2 Sensor 80 83 Pulse Rhythm Pulse Strength Respiratory Rate 13 18 Respiratory Effort / Characteristics Respiratory Depth Respiratory Pattern Blood Pressure Blood Pressure [Right Arm] Blood Pressure Mean Blood Pressure Mean [Right Arm] Blood Pressure Position Pulse Oximetry 96 92 Oxygen Delivery Method Oxygen Flow Rate Sepsis Recent Fever Within 48 Hours Sepsis New/Unexplained Change in Mental Status Sepsis Action Taken by Nursing 11/12/23 22:00 11/12/23 22:10 11/12/23 22:20 Temperature Temperature Source Pulse Rate 78 76 Pulse Rate [Right Finger] Pulse Rate from SpO2 Sensor 78 77 Pulse Rhythm Pulse Strength Respiratory Rate 12 14 Respiratory Effort / Characteristics Respiratory Depth Respiratory Pattern Blood Pressure 117/66 Blood Pressure [Right Arm] Blood Pressure Mean 72 Blood Pressure Mean [Right Arm] Blood Pressure Position Pulse Oximetry 98 96 Oxygen Delivery Method Oxygen Flow Rate Sepsis Recent Fever Within 48 Hours Sepsis New/Unexplained Change in Mental Status Sepsis Action Taken by Nursing 11/12/23 22:30 11/12/23 22:30 11/13/23 00:27 Temperature Temperature Source Pulse Rate 76 Pulse Rate [Right Finger] 73 Pulse Rate from SpO2 Sensor 76 Pulse Rhythm Pulse Strength Respiratory Rate 16 18 Respiratory Effort / Characteristics Non-Labored Respiratory Depth Normal Respiratory Pattern Regular Blood Pressure 113/65 Blood Pressure [Right Arm] 102/64 Blood Pressure Mean 76 Blood Pressure Mean [Right Arm] 76 Blood Pressure Position Pulse Oximetry 96 99 Oxygen Delivery Method Oxygen Flow Rate Sepsis Recent Fever Within 48 Hours Sepsis New/Unexplained Change in Mental Status Sepsis Action Taken by Nursing Physical Exam EYES: Conjunctivae and EOM are normal. Pupils are equal, round, and reactive to light. Right eye exhibits no discharge. Left eye exhibits no discharge. No scleral icterus. NECK: Normal range of motion. Neck supple. No JVD present. CV: Normal rate, regular rhythm, normal heart sounds and intact distal pulses. Palpable radial pulses bue. PULM/CHEST: Effort normal and breath sounds normal. No respiratory distress. No stridor. She has no wheezes. She has no rales. ABD: The abdomen is soft morbidly obese. NEURO: Left-sided hemiparesis at baseline. Course Course 2050: The patient was evaluated in room C8. A complete history and physical exam was performed Administered Medications Discontinued Medications Famotidine (Pepcid 20mg Iv Push) 20 mg in 5 mls @ 2.5 mls/min IV NOW ONE Stop: 11/12/23 22:28 Last Admin: 11/12/23 22:44 Dose: 2.5 mls/min Documented By: [facility] Potassium Chloride (Potassium Chloride Crtab 20 Meq Tabcr) 40 meq PO NOW STA Stop: 11/12/23 21:59 Last Admin: 11/12/23 22:44 Dose: 40 meq Documented By: [facility] Medical Decision Making Laboratory Data Attestation: I reviewed the patient's lab results. 11/12/23 18:51 11/12/23 18:51 Labs: Lab Results 11/12/23 11/12/23 Range/Units 18:51 22:49 WBC 8.95 (4.8-10.8) K/ul RBC 4.67 (4.20-5.40) M/uL Hgb 11.1 L (12.0-16.0) g/dl Hct 37.7 (37.0-47.0) % MCV 80.7 (80.0-100.0) fL MCH 23.8 L (25.0-34.0) pg MCHC 29.4 L (32.0-36.0) g/dL RDW Std Deviation 43.1 (36.4-46.3) fL RDW Coeff of Alexia 14.8 H (11.5-14.5) % Plt Count 524 H (130-400) K/uL MPV 9.5 (9.4-12.4) fL Immature Gran % (Auto) 0.3 % Neut % (Auto) 65.3 % Lymph % (Auto) 24.5 % [place] % (Auto) 5.1 % Eos % (Auto) 4.2 % Baso % (Auto) 0.6 % Neut # (Auto) 5.84 (1.40-6.50) K/uL Lymph # (Auto) 2.19 (1.20-3.40) K/uL [place] # (Auto) 0.46 (0.11-0.59) K/uL Eos # (Auto) 0.38 (0.00-0.50) K/uL Baso # (Auto) 0.05 (0.00-0.20) K/uL Immature Gran # (Auto) 0.03 (0.01-0.20) K/uL PT 10.6 (9.0-12.0) Seconds INR 1.0 (0.9-1.1) APTT 30 (21-31) Seconds PTT Ratio 1.1 D-Dimer 610 H* (0-500) ug/L FEU Sodium 136 (136-145) mmol/L Potassium 3.2 L (3.5-5.1) mmol/L Chloride 93 L (98-107) mmol/L Carbon Dioxide 33 H (21-32) mmol/L Anion Gap 10 (3-11) BUN 14 (6-23) mg/dl Creatinine 0.95 (0.6-1.2) mg/dl Est Cr Clr Drug Dosing Not Reportable Est GFR ( Amer) 88.7 ml/min Est GFR (Non-Af Amer) 76.5 ml/min BUN/Creatinine Ratio 14.7 (10-20) Glucose 108 H (70-99(Fasting)) mg/dl Calcium 9.1 (8.6-10.3) mg/dl Total Bilirubin 0.4 (0.2-1.0) mg/dl AST 29 (13-39) U/L ALT 23 (7-52) U/L Alkaline Phosphatase 88 (34-104) U/L Troponin I High Sens 2.7 (0-14) pg/ml B-Natriuretic Peptide 43 (0-100) pg/ml Total Protein 9.0 H (6.0-8.3) gm/dl Albumin 4.0 (3.4-5.0) gm/dl Globulin 5.0 H (2.5-4.0) gm/dl Albumin/Globulin Ratio 0.8 L (0.9-2) Lipase 20 (11-82) U/L Adenovirus (PCR) Not Detected (NotDetected) B. pertussis DNA (PCR) Not Detected (NotDetected) B.parapertussis DNA PCR Not Detected (NotDetected) C. pneumoniae DNA (PCR) Not Detected (NotDetected) Coronavirus OC43 (PCR) Not Detected (NotDetected) Coronavirus HKU1 (PCR) Not Detected (NotDetected) Coronavirus 229E (PCR) Not Detected (NotDetected) SARS-CoV-2 (PCR) Not Detected (NotDetected) Coronavirus NL63 (PCR) Not Detected (NotDetected) Human Metapneumovir PCR Not Detected (NotDetected) Influenza Type A (PCR) Not Detected (NotDetected) Influenza Type B (PCR) Not Detected (NotDetected) M. pneumoniae (PCR) Not Detected (NotDetected) Parainfluenza 1 (PCR) Not Detected (NotDetected) Parainfluenza 2 (PCR) Not Detected (NotDetected) Parainfluenza 3 (PCR) Not Detected (NotDetected) Parainfluenza 4 (PCR) Not Detected (NotDetected) RSV (PCR) Not Detected (NotDetected) Entero/Rhino (PCR) Not Detected (NotDetected) Imaging Data Chest x-ray: Attestation: I personally reviewed and interpreted this imaging study as follows: My impression: Chest x-ray negative. Airway clear. No pneumothorax. No consolidation. No cardiomegaly or cephalization.. No free air under the diaphragm. No fractures of the skeletal structures. ECG Data Attestation: I personally reviewed and interpreted this ECG as follows: Rate (beats per minute): 92 Rhythm: normal sinus Findings: no ST depression or no ST elevation Additional Comments: QTc 504 MDM Narrative Cardiac monitoring: An order was placed for continuous cardiac monitoring. The monitor shows a rate of 90 with sinus rhythm interpreted by me Patient was seen during a time of extreme volume and extreme acuity. Nursing triage protocols were initiated labs and imaging was conducted by protocol in the triage area. Vital signs stable. Troponin and BNP and chest x-ray within normal limits. Patient does have an elevated D-dimer from the order that was placed in triage. Patient states she is compliant with her Eliquis. Patient be admitted to the [facility] hospitalist team, accepted the patient is very unlikely to have a pulmonary embolus given the fact that she is on Eliquis. Discussed case with Dr. Poe [facility] hospitalist who states she will evaluate the patient for admission. Impression & Plan Chest pain Discharge Plan Visit Data Chief Complaint: Chest Pain Stated Complaint: CHEST PAIN ED Provider: [place] Discharge Problem: Chest pain Patient Disposition: Being Evaluated by Hospitalist Forms Stand Alone Forms: My [facility] Prescriptions Prescriptions: No Action (DME) Lift Chair Misc See Rx Instructions .Route Qty: 1 0RF Rx Instructions: As directed (DME) miscellaneous medical supply Misc See Rx Instructions .ROUTE .MEDSUPPLY Qty: 1 0RF Rx Instructions: Left wrist splint Dx: lt spastic hemiparesis epinephrine 0.3 mg/0.3 mL auto-injector 0.3 mg IM .COMPLEX PRN (Reason: anaphylaxis) Qty: 2 1RF Rx Instructions: 0.3 mg intramuscularly once but repeat dose x1 in 5-15min if needed PRN; After first injection, proceed to the ER bumetanide 2 mg tablet 4 mg PO BID Qty: 120 2RF Rx Instructions: take 7-8am each morning and about 3-4pm in the afternoon every day. potassium chloride 20 mEq tablet extended release 40 meq PO BID Qty: 120 5RF apixaban 2.5 mg tablet 2.5 mg PO BID Qty: 60 5RF baclofen 10 mg tablet 10 mg PO BID PRN (Reason: muscle stiffness/spasm) Qty: 60 5RF trazodone 50 mg tablet 50 mg PO HS Qty: 30 5RF gabapentin 600 mg tablet 600 mg PO TID Qty: 90 2RF metoprolol tartrate 50 mg tablet 25 mg PO BID Qty: 30 0RF clonazepam 0.5 mg tablet 0.5 mg PO HS Qty: 30 0RF (DME) Powered Wheelchair Misc See Rx Instructions .Route Qty: 1 0RF Rx Instructions: As directed ICD-10: G81.14, M17.11 (DME) Wheelchair (Manual) Device See Rx Instructions .Route Qty: 1 0RF Rx Instructions: As [id number] Z86.73 (DME) Hospital Bed Misc See Rx Instructions .Route Qty: 1 0RF Rx Instructions: As directed G81.9, I63.411 (DME) Manual Wheelchair Device See Rx Instructions .Route Qty: 1 0RF Rx Instructions: aly[address] drive WC please G81.9 methadone 10 mg Tablet 72 mg PO QAM melatonin 3 mg Tablet 3 mg PO HS aspirin 81 mg Tablet,Chewable 81 mg PO QAM multivitamin with minerals Tablet 1 tab PO QAM (DME) Oxygen Home Liters Per Minute See Rx Instructions .ROUTE .MEDSUPPLY Qty: 1 0RF Rx Instructions: 2 liters NC O2 with sleep. diclofenac sodium [Voltaren Arthritis Pain] 1 % Gel 4 g EXT QID PRN (Reason: right knee pain OR back pain) Qty: 1 0RF acetaminophen [Tylenol 8 Hour] 650 mg tablet extended release 650 mg PO Q8H PRN (Reason: fever or pain) Qty: 1 0RF polyethylene glycol 3350 [Miralax] 17 gram powder in packet 17 g PO DAILY PRN (Reason: Constipation) Rx Instructions: you can purchase daily, individual packets OR a bottle; both are [id number]. fluticasone propionate 100 mcg/actuation Blister With Device 1 inh INHALATION BID metolazone 2.5 mg tablet 2.5 mg PO Q OTHER DAY Hold Instructions: Resume on 08/17/23. levothyroxine 75 mcg tablet 75 mcg PO DAILYBB magnesium oxide 400 mg (241.3 mg magnesium) tablet 400 mg PO HS pantoprazole 40 mg tablet,delayed release (DR/EC) 40 mg PO QAM sertraline 100 mg tablet 200 mg PO QAM spironolactone 25 mg Tablet 50 mg PO QAM Qty: 60 0RF ketoconazole 2 % cream 1 applic topical BID PRN (Reason: NEEDED) Rx Instructions: apply to face Referrals Referrals: Stacey Arce MD [Primary Care Provider] -
[2023-11-13] LABS: Adenovirus PCR Not Detected (NotDetected); Bordetella parapertussis PCR Not Detected (NotDetected); Bordetella pertussis PCR Not Detected (NotDetected); Chlamydia pneumoniae PCR Not Detected (NotDetected); Coronavirus 229E PCR Not Detected (NotDetected); Coronavirus CoV-2 (COVID19)PCR Not Detected (NotDetected); Coronavirus HKU1 PCR Not Detected (NotDetected); Coronavirus NL63 PCR Not Detected (NotDetected); Coronavirus OC43PCR Not Detected (NotDetected); Human Metapneumovirus PCR Not Detected (NotDetected); Influenza A PCR Not Detected (NotDetected); Influenza B PCR Not Detected (NotDetected); Mycoplasma pneumoniae PCR Not Detected (NotDetected); Parainfluenza Virus 1 PCR Not Detected (NotDetected); Parainfluenza Virus 2 PCR Not Detected (NotDetected); Parainfluenza Virus 3 PCR Not Detected (NotDetected); Parainfluenza Virus 4 PCR Not Detected (NotDetected); Respiratory Syncytial VirusPCR Not Detected (NotDetected); Rhinovirus/Enterovirus PCR Not Detected (NotDetected)
[2023-11-13] MEDS ORDERED: BACLOFEN 10 MG TAB PO PRN (01:28)
[2023-11-13] MEDS ORDERED: POLYETHYLENE (MIRALAX) 17 GM PACK PO PRN (01:28)
[2023-11-13] MEDS ORDERED: ACETAMINOPHEN 325 MG TAB PO PRN (01:28)
[2023-11-13] MEDS ORDERED: DICLOFENAC SOD 1% GEL 100 GM TUBE EXT PRN (01:28)
[2023-11-13] MEDS ORDERED: EPINEPHrine INJ 1 MG/ML AMP IM PRN (02:15)
[2023-11-13] MEDS: BUMETANIDE 1 MG TAB PO SCH (02:25)
[2023-11-13] MEDS: traZODone HCL 50 MG TAB PO SCH (02:25)
[2023-11-13] MEDS: LEVOTHYROXINE SODIUM 75 MCG TABLET PO SCH (06:25)
--- NOTE | 2023-11-13 07:01 | XRay Report ---
XR chest 2V PA/lateral CLINICAL HISTORY: Chest pain, nonspecific TECHNIQUE: 2 views of the chest were obtained. Comparison: Comparison is made to chest radiograph 09/24/2023 FINDINGS: Median sternotomy wires are unchanged. Cardiomegaly is noted. Prominence and cephalization of the vas culature is seen. No evidence of pleural effusion or pneumothorax. IMPRESSION: Cardiomegaly and mild pulmonary edema. ACT 112: Negative or not required by law. Electronically signed by: Hiro Santoyo M.D. 11/13/2023 6:59 AM
[2023-11-13] MEDS: APIXABAN 2.5 MG TAB PO SCH (09:02)
[2023-11-13] MEDS: ASPIRIN 81 MG ECTAB PO SCH (09:03)
[2023-11-13] MEDS: FAMOTIDINE 20MG IV PUSH 20 MG/5 ML SYR IV SCH (09:03)
[2023-11-13] MEDS: GABAPENTIN 600 MG TAB PO SCH (09:04)
[2023-11-13] MEDS: metOLazone 2.5 MG TABLET PO SCH (09:04)
[2023-11-13] MEDS: PANTOprazole 40 MG TAB PO SCH (09:05)
[2023-11-13] MEDS: METOPROLOL TARTRATE 25 MG TAB PO SCH (09:05)
[2023-11-13] MEDS: POTASSIUM CHLORIDE CRTAB 20 MEQ TABCR PO SCH (09:05)
[2023-11-13] MEDS: SERTRALINE HCL 100 MG TABLET PO SCH (09:06)
[2023-11-13] MEDS: SPIRONOLACTONE 25 MG TAB PO SCH (09:07)
[2023-11-13] MEDS: FLUTICASONE FUROATE 100MCG 14 PUFFS/INHALER INH SCH (09:08)
[2023-11-13] MEDS: METHADONE ORAL SOLN 2 MG/ML PO SCH (09:25)
[2023-11-13 12:04] LABS: Basophils # (auto) 0.06 K/uL (0.00-0.20); Basophils % (auto) 0.7 %; Eosinophils # (auto) 0.28 K/uL (0.00-0.50); Eosinophils % (auto) 3.3 %; Hematocrit (blood only) 36.3 % (37.0-47.0); Hemoglobin 10.8 g/dl (12.0-16.0); Immature Granulocytes # (auto) 0.03 K/uL (0.01-0.20); Immature Granulocytes % (auto) 0.4 %; Lymphocytes # (auto) 1.48 K/uL (1.20-3.40); Lymphocytes % (auto) 17.7 %; Mean Corpuscular Hemoglobin 23.5 pg (25.0-34.0); Mean Corpuscular Hgb Conc 29.8 g/dL (32.0-36.0); Mean Corpuscular Volume 79.1 fL (80.0-100.0); Mean Platelet Volume 9.4 fL (9.4-12.4); Monocytes # (auto) 0.52 K/uL (0.11-0.59); Monocytes % (auto) 6.2 %; Neutrophils # (auto) 6.01 K/uL (1.40-6.50); Neutrophils % (auto) 71.7 %; Platelet Count 459 K/uL (130-400); RDW Coefficient of Variation 14.8 % (11.5-14.5); RDW Standard Deviation 42.3 fL (36.4-46.3); Red Blood Count 4.59 M/uL (4.20-5.40); White Blood Count 8.38 K/ul (4.8-10.8)
[2023-11-13] MEDS: ONDANSETRON INJ 2 MG/ML 2 ML VIAL IV PRN (12:10)
[2023-11-13 12:16] LABS: BUN Creatinine Ratio 14.3 (10-20); Calcium 9.1 mg/dl (8.6-10.3); Creatinine Clr Calc Pharmacy 154.7 ml/min; Est GFR (African American) 93.4 ml/min; Est GFR (Non-African American) 80.6 ml/min; Magnesium 1.6 mg/dl (1.7-2.4); Potassium 2.5 mmol/L (3.5-5.1)
[2023-11-13 12:22] LABS: Troponin I High Sensitivity 2.4 pg/ml (0-14)
--- NOTE | 2023-11-13 12:45 | XCELERA ---
[id number]
[2023-11-13] MEDS ORDERED: GABAPENTIN 600 MG TAB PO ONE (13:12)
[2023-11-13] MEDS: MAGNESIUM SULFATE / D5W 1 GM/100 ML BAG IV SCH (13:39)
[2023-11-13] MEDS: POTASSIUM CHLORIDE / WTR 10 MEQ/100 ML PLCT IV SCH (13:40)
[2023-11-13] MEDS: POLYETHYLENE (MIRALAX) 17 GM PACK PO SCH (13:50)
[2023-11-13] MEDS: APIXABAN 2.5 MG TAB PO ONE (13:53)
[2023-11-13] MEDS: SPIRONOLACTONE 25 MG TAB PO ONE (13:53)
[2023-11-13] MEDS: SERTRALINE HCL 100 MG TABLET PO ONE (13:54)
--- NOTE | 2023-11-13 14:26 | Ultrasound Report ---
BILATERAL LOWER EXTREMITY VENOUS DOPPLER HISTORY: Acute pain and swelling of the right lower leg ?DVT COMPARISON STUDY: None. FINDINGS: There is normal compressibility, flow, and augmentation within the bilateral lower extremit y deep venous systems. Distal popliteal veins are not not well-visualized secondary to patient positi oning. IMPRESSION: No DVT within the right or left lower extremity. ACT 112: Negative or not required by law. Electronically signed by: Alex Ibarra M.D. 11/13/2023 2:25 PM
[2023-11-13] MEDS ORDERED: bisacodyL 10 MG SUPP PR PRN (14:40)
[2023-11-13] MEDS ORDERED: SOD PHOSPHATE/SOD BIPHOSPHATE ENEMA 132 ML BTL PR PRN (14:40)
--- NOTE | 2023-11-13 14:43 | Hospitalist Progress Note ---
Date of Service November 13, 2023 Assessment & Plan (1) Chest pain: Plan: Two episodes of substernal chest pain with radiation to the jaw/neck on 11/10 and 11/11 - episodes lasting several minutes at a time Patient reports taking low-dose Eliquis 2.5mg BID for DVT PPx However, given acute onset of symptoms, (+) D-dimer, and hemoptysis x 1 episode, will order chest CTA for PE r/o - patient continues to decline this - agreeable to lower extremity Dopplers: These are negative for acute DVT Biofire negative. troponin negative x 2 patient remains chest pain-free, and is more concerned about her constipation. Continue to replete electrolytes - K replace p.o. and IV - Mag replaced IV (chronic p.o. supplementation) AM CBC, BMP, mag (2) Acute on chronic heart failure with preserved ejection fraction (HFpEF): Plan: Patient follows with heart failure clinic - however has not been seen out patient since August and has had an admission for CHF since. Documentation of missed appointments/difficulty reaching Chronically on 4 L O2 Weight at discharge 09/27: 182 kg, weight on admission admission 197 kg Continue Bumex, metolazone, and spironolactone as prescribed - patient spit out a.m. pills today, reordered later in the afternoon. Metolazone not reordered given patient's current potassium. will hold off on more aggressive diuresis until sputum cultures are normal echo with no significant change from 09/2023, EF 65-70 no regional wall motion abnormalities. (3) Chronic respiratory failure with hypoxia: Plan: Patient is on 4L NC supplemental oxygen at baseline Titrate supplemental oxygen as needed to maintain SpO2 >94% Continuous pulse oximetry (4) S/P mitral valve replacement with bioprosthetic valve: Plan: In Jun 2022 Echo revealed prosthetic mitral valve is well-seated (5) Hypokalemia: Plan: Chronic; baseline 40 mill equivalent twice daily supplementation K 3.2 on arrival, down to 2.5 with repeat labs p.o. 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 (7) Morbid obesity: Plan: BMI 66.0 Bariatric bed (8) GERD (gastroesophageal reflux disease): Plan: Continue pantoprazole Will add on famotidine 20mg IV daily (9) Constipation: Plan: likely exacerbated by her methadone use, reports no bowel movement at least a week - daily senna and MiraLAX no signs of obstruction currently prn enema and suppository Plan chronic stable medical conditions: * Sleep apneapatient declined CPAP * drug abuse and remission - continue methadone * history of hepatitis C * bipolar disorder Disposition: continued inpatient stay replating electrolytes and monitoring fluid balance VTE PPx: Continue Eliquis (patient takes reduced dose, 2.5mg BID for DVT PPx) Admission and Anticipated Discharge Date Admission Date: November 12, 2023 Supervising Physician Co-Signing Physician Notes Attending Attestation - Chart reviewed, care plan d/w ISATU Torres. I agree w/ the rojo components of her documentation. I know Ms Salcido well from prior hospitalizations. If she continues to spit out pills, refuse testing, etc consider psych consult. She has h/o bipolar d/o vs mood d/o - on abilify in the past - and psych has seen her before. Kurt Taylor MD Subjective patient seen while holding in the ED, resting in bed. States that she is willing to do the Dopplers of her legs but she is unwilling to do her CTA because she does not want to get on that CT table. Is already asking to go home states she feels slightly better than when she came in, her main concern is that she has not pooped in 1 week. No further episodes of chest pain since she came to the ER. States she has been taking all of her medications, discussed with 30 pound weight gain in the last 6 weeks she states "she drinks a lot of water" Review of Systems Review of Systems: All systems reviewed & are unremarkable except as noted in Subjective Physical Exam Physical Exam: General: NAD, morbidly obese, chronically ill VS as above Resp: normal respiratory effort, lungs diminished in the bases CV: RRR, no murmur, Abd: normal bowel sounds, mild diffuse tenderness, Extremities: residual left-sided weakness from prior stroke Neuro: A&O x3, Results & Data Results & Data Vital Signs (Past 12 Hours) Vital Signs Pulse Pulse Resp BP Pulse Ox O2 Del Method O2 Flow Rate 11/13/23 13:19 113 H 20 124/94 96 Nasal Cannula 4 11/13/23 09:00 Nasal Cannula 4 11/13/23 07:31 74 11/13/23 06:34 77 18 97/72 L 96 Nasal Cannula 4 11/13/23 05:24 66 18 100/70 97 Nasal Cannula 4 11/13/23 02:39 74 18 102/70 99 Nasal Cannula 4 Laboratory Results CBC, chemistry, mag, troponin reviewed PG Care Time/CCT Total # of Minutes Spent Total Time Spent with Patient: Total time spent is greater than 50% in coordination of care (as documented) at patient's floor/unit and/or counseling patient: Coding Level of Care Code 80486 SUB INP/OBS CARE 3/50MIN Diagnoses Chest pain R07.9 Acute on chronic heart failure with preserved ejection fraction (HFpEF) I50.33 Chronic respiratory failure with hypoxia J96.11 S/P mitral valve replacement with bioprosthetic valve Z95.3 Hypokalemia E87.6 Chronic right arterial ischemic stroke, MCA (middle cerebral artery) I69.30 Morbid obesity E66.01 GERD (gastroesophageal reflux disease) K21.9 Constipation K59.00
[2023-11-13] MEDS: BUMETANIDE 4 MG in SYRINGE 0 ML IV ONE (15:18)
--- NOTE | 2023-11-13 15:18 | Electrocardiogram Report ---
Test Reason : Blood Pressure : / mmHG Vent. Rate : 092 BPM Atrial Rate : 092 BPM P-R Int : 144 ms QRS Dur : 088 ms QT Int : 408 ms P-R-T Axes : 046 036 013 degrees QTc Int : 504 ms Normal sinus rhythm Poor R wave progression, consider anterior HI vs. lead placement vs. LVH Abnormal ECG When compared with ECG of 24-SEP-2023 11:15, Minimal criteria for Anterior infarct are now Present QT has shortened Confirmed by Marco Crawley ([id number]) on 11/13/2023 3:18:45 PM Referred By: Stacey Arce Confirmed By:Marco Crawley
[2023-11-13] MEDS: SENNA 8.6 MG TAB PO SCH (15:19)
[2023-11-13] MEDS: POTASSIUM CHLORIDE CRTAB 20 MEQ TABCR PO STA (15:19)
[2023-11-13] MEDS: PANTOprazole 40 MG in SYRINGE 0 ML IV ONE (17:33)
[2023-11-13 21:46] LABS: Calcium 8.8 mg/dl (8.6-10.3); Potassium 2.9 mmol/L (3.5-5.1)
[2023-11-13 21:52] LABS: Creatinine Clr Calc Pharmacy 140.8 ml/min; Est GFR (African American) 83.4 ml/min; Est GFR (Non-African American) 71.9 ml/min
[2023-11-13] MEDS: clonazePAM 0.5 MG TAB PO SCH (21:56)
[2023-11-13] MEDS: MAGNESIUM OXIDE 400 MG TAB PO SCH (21:57)
[2023-11-13] MEDS: MELATONIN 3 MG TAB PO SCH (21:57)
[2023-11-13] MEDS: PROCHLORPERAZINE 10 MG in SYRINGE 8 ML IV PRN (21:58)
[2023-11-14 07:45] LABS: Basophils # (auto) 0.05 K/uL (0.00-0.20); Basophils % (auto) 0.8 %; Eosinophils # (auto) 0.27 K/uL (0.00-0.50); Eosinophils % (auto) 4.2 %; Hematocrit (blood only) 35.2 % (37.0-47.0); Hemoglobin 10.6 g/dl (12.0-16.0); Immature Granulocytes # (auto) 0.01 K/uL (0.01-0.20); Immature Granulocytes % (auto) 0.2 %; Lymphocytes # (auto) 1.67 K/uL (1.20-3.40); Lymphocytes % (auto) 26.2 %; Mean Corpuscular Hemoglobin 24.1 pg (25.0-34.0); Mean Corpuscular Hgb Conc 30.1 g/dL (32.0-36.0); Mean Corpuscular Volume 80.2 fL (80.0-100.0); Mean Platelet Volume 9.2 fL (9.4-12.4); Monocytes # (auto) 0.54 K/uL (0.11-0.59); Monocytes % (auto) 8.5 %; Neutrophils # (auto) 3.84 K/uL (1.40-6.50); Neutrophils % (auto) 60.1 %; Platelet Count 413 K/uL (130-400); RDW Coefficient of Variation 14.6 % (11.5-14.5); RDW Standard Deviation 42.4 fL (36.4-46.3); Red Blood Count 4.39 M/uL (4.20-5.40); White Blood Count 6.38 K/ul (4.8-10.8)
[2023-11-14 08:01] LABS: BUN Creatinine Ratio 12.3 (10-20); Calcium 8.7 mg/dl (8.6-10.3); Creatinine Clr Calc Pharmacy 123.5 ml/min; Est GFR (African American) 71.1 ml/min; Est GFR (Non-African American) 61.4 ml/min; Magnesium 2.2 mg/dl (1.7-2.4); Potassium 3.3 mmol/L (3.5-5.1)
[2023-11-14] MEDS: POTASSIUM CHLORIDE / WTR 10 MEQ/100 ML PLCT IV SCH (08:49)
[2023-11-14] MEDS: metOLazone 2.5 MG TABLET PO ONE (09:10)
--- NOTE | 2023-11-14 15:14 | Hospitalist Progress Note ---
Date of Service November 14, 2023 Assessment & Plan (1) Chest pain: Plan: Two episodes of substernal chest pain with radiation to the jaw/neck on 11/10 and 11/11 - episodes lasting several minutes at a time Patient reports taking low-dose Eliquis 2.5mg BID for DVT PPx However, given acute onset of symptoms, (+) D-dimer, and hemoptysis x 1 episode, will order chest CTA for PE r/o - patient continues to decline this - agreeable to lower extremity Dopplers: These are negative for acute DVT Biofire negative. troponin negative x 2 patient remains chest pain-free, and is more concerned about her constipation. Continue to replete electrolytes - K replace p.o. and IV - Mag replaced IV (chronic p.o. supplementation) AM CBC, BMP, mag (2) Constipation: Plan: likely exacerbated by her methadone use, reports no bowel movement at least a week - daily senna and MiraLAX BID no signs of obstruction currently prn enema and suppository (3) Acute on chronic heart failure with preserved ejection fraction (HFpEF): Plan: Patient follows with heart failure clinic - however has not been seen out patient since August and has had an admission for CHF since. Documentation of missed appointments/difficulty reaching Chronically on 4 L O2 Weight at discharge 09/27: 182 kg, weight on admission admission 197 kg - awaiting standing weight Continue Bumex, metolazone, and spironolactone as prescribed echo with no significant change from 09/2023, EF 65-70 no regional wall motion abnormalities. (4) Chronic respiratory failure with hypoxia: Plan: Patient is on 4L NC supplemental oxygen at baseline Titrate supplemental oxygen as needed to maintain SpO2 >94% Continuous pulse oximetry (5) S/P mitral valve replacement with bioprosthetic valve: Plan: In Jun 2022 Echo revealed prosthetic mitral valve is well-seated (6) Hypokalemia: Plan: Chronic; baseline 40 mill equivalent twice daily supplementation K 3.2 on arrival, down to 2.5 with repeat labs improving (7) Chronic right arterial ischemic stroke, MCA (middle cerebral artery): Plan: CVA in 2019 With residual left-sided hemiparesis (8) Morbid obesity: Plan: BMI 66.0 Bariatric bed (9) GERD (gastroesophageal reflux disease): Plan: Continue pantoprazole Will add on famotidine 20mg IV daily Plan chronic stable medical conditions: * Sleep apneapatient declined CPAP * drug abuse and remission - continue methadone * history of hepatitis C * bipolar disorder Disposition: continued inpatient stay replating electrolytes and monitoring fluid balance VTE PPx: Continue Eliquis (patient takes reduced dose, 2.5mg BID for DVT PPx) Admission and Anticipated Discharge Date Admission Date: November 12, 2023 Supervising Physician Co-Signing Physician Notes Attending Attestation - Chart reviewed, care plan d/w ISATU Torres. I agree w/ the rojo components of her documentation. Pt well known to me from prior hospital stays. Kurt Taylor MD Subjective Patient lying in bed - has not been out of bed today still has not had a BM breathing is baseline Does not feel like her legs look worse than baseline Tele SR 70s Review of Systems Review of Systems: All systems reviewed & are unremarkable except as noted in Subjective Physical Exam Physical Exam: General: NAD, morbidly obese, chronically ill VS as above Resp: normal respiratory effort, lungs diminished in the bases CV: RRR, no murmur, Abd: normal bowel sounds, mild diffuse tenderness, Extremities: residual left-sided weakness from prior stroke, no pitting edema LE Neuro: A&O x3, Results & Data Results & Data Vital Signs (Past 12 Hours) Vital Signs Temp Pulse Pulse Resp BP Pulse Ox O2 Del Method 11/14/23 11:21 36.6 C 70 18 110/71 92 Nasal Cannula 11/14/23 09:04 75 11/14/23 07:34 Nasal Cannula 11/14/23 07:27 36.7 C 73 16 104/67 91 Nasal Cannula O2 Flow Rate 11/14/23 11:21 4 11/14/23 09:04 11/14/23 07:34 4 11/14/23 07:27 4 Laboratory Results Chemistry and mag reviewed PG Care Time/CCT Total # of Minutes Spent Total Time Spent with Patient: Total time spent is greater than 50% in coordination of care (as documented) at patient's floor/unit and/or counseling patient: Coding Level of Care Code 95150 SUB INP/OBS CARE 2/35MIN Diagnoses Chest pain R07.9 Constipation K59.00 Acute on chronic heart failure with preserved ejection fraction (HFpEF) I50.33 Chronic respiratory failure with hypoxia J96.11 S/P mitral valve replacement with bioprosthetic valve Z95.3 Hypokalemia E87.6 Chronic right arterial ischemic stroke, MCA (middle cerebral artery) I69.30 Morbid obesity E66.01 GERD (gastroesophageal reflux disease) K21.9
[2023-11-14] MEDS: POLYETHYLENE (MIRALAX) 17 GM PACK PO SCH (20:50)
[2023-11-15 07:57] LABS: Basophils # (auto) 0.06 K/uL (0.00-0.20); Basophils % (auto) 0.8 %; Eosinophils # (auto) 0.28 K/uL (0.00-0.50); Eosinophils % (auto) 3.9 %; Hematocrit (blood only) 37.5 % (37.0-47.0); Hemoglobin 11.1 g/dl (12.0-16.0); Immature Granulocytes # (auto) 0.02 K/uL (0.01-0.20); Immature Granulocytes % (auto) 0.3 %; Mean Corpuscular Hemoglobin 23.6 pg (25.0-34.0); Mean Corpuscular Hgb Conc 29.6 g/dL (32.0-36.0); Mean Corpuscular Volume 79.8 fL (80.0-100.0); Mean Platelet Volume 9.5 fL (9.4-12.4); Monocytes # (auto) 0.58 K/uL (0.11-0.59); Monocytes % (auto) 8.2 %; Neutrophils # (auto) 3.96 K/uL (1.40-6.50); Neutrophils % (auto) 55.8 %; Platelet Count 451 K/uL (130-400); RDW Coefficient of Variation 14.6 % (11.5-14.5); RDW Standard Deviation 42.3 fL (36.4-46.3)
[2023-11-15 08:19] LABS: Anion Gap 10 (3-11); BUN Creatinine Ratio 13.5 (10-20); Blood Urea Nitrogen 17 mg/dl (6-23); Calcium 9.2 mg/dl (8.6-10.3); Carbon Dioxide 40 mmol/L (21-32); Chloride 88 mmol/L (98-107); Creatinine Clr Calc Pharmacy 105.5 ml/min; Est GFR (Non-African American) 54.4 ml/min; Glucose 104 mg/dl (70-99(Fasting)); Magnesium 2.1 mg/dl (1.7-2.4); Sodium 138 mmol/L (136-145)
[2023-11-15] MEDS: METHYLNALTREXONE BROMIDE 12 MG/0.6 ML VIAL SQ ONE (09:10)
[2023-11-15] MEDS: POTASSIUM CHLORIDE / WTR 10 MEQ/100 ML PLCT IV SCH (10:30)
[2023-11-15] MEDS: POTASSIUM CHLORIDE CRTAB 20 MEQ TABCR PO ONE (12:17)
--- NOTE | 2023-11-15 13:07 | Hospitalist Progress Note ---
Date of Service November 15, 2023 Assessment & Plan (1) Chest pain: Plan: Two episodes of substernal chest pain with radiation to the jaw/neck on 11/10 and 11/11 - episodes lasting several minutes at a time Patient reports taking low-dose Eliquis 2.5mg BID for DVT PPx However, given acute onset of symptoms, (+) D-dimer, and hemoptysis x 1 episode, will order chest CTA for PE r/o - patient continues to decline this - agreeable to lower extremity Dopplers: These are negative for acute DVT Biofire negative. troponin negative x 2 patient remains chest pain-free, and is more concerned about her constipation. Continue to replete electrolytes - K replace p.o. and IV 11/13,11/14 - Mag replaced IV (chronic p.o. supplementation) 11/13 AM BMP (2) Constipation: Plan: likely exacerbated by her methadone use, reports no bowel movement at least a week - daily senna and MiraLAX BID no signs of obstruction currently excellent response to Relistor (3) Acute on chronic heart failure with preserved ejection fraction (HFpEF): Plan: Patient follows with heart failure clinic - however has not been seen out patient since August and has had an admission for CHF since. Documentation of missed appointments/difficulty reaching Chronically on 4 L O2 Weight at discharge 09/27: 182 kg, weight on admission admission 197 kg (bed weight) - standing weight 178.9kg --> pt not in CHF exacerbation, no edema, no increased O2 needs and weight is at baseline Continue Bumex, metolazone, and spironolactone as prescribed echo with no significant change from 09/2023, EF 65-70 no regional wall motion abnormalities. (4) Chronic respiratory failure with hypoxia: Plan: Patient is on 4L NC supplemental oxygen at baseline Titrate supplemental oxygen as needed to maintain SpO2 >94% Currently stable on 2L (5) S/P mitral valve replacement with bioprosthetic valve: Plan: In Jun 2022 Echo revealed prosthetic mitral valve is well-seated (6) Hypokalemia: Plan: Chronic; baseline 40 mill equivalent twice daily supplementation K 3.2 on arrival, down to 2.5 with repeat labs required PO and IV supplementation again today, 11/14 recheck AM (7) Chronic right arterial ischemic stroke, MCA (middle cerebral artery): Plan: CVA in 2020 With residual left-sided hemiparesis (8) Morbid obesity: Plan: BMI 66.0 Bariatric bed (9) GERD (gastroesophageal reflux disease): Plan: Continue pantoprazole Will add on famotidine 20mg IV daily Plan chronic stable medical conditions: * Sleep apneapatient declined CPAP * drug abuse and remission - continue methadone * history of hepatitis C * bipolar disorder Disposition: continued inpatient stay repeating electrolytes a VTE PPx: Continue Eliquis (patient takes reduced dose, 2.5mg BID for DVT PPx) spoke with mother who is the primary caregiver for Michelle over the phone - her mother is acutely ill and likely heading to the ER today, unable to crop picker or care for Michelle today. hopeful for discharge tomorrow Admission and Anticipated Discharge Date Admission Date: November 12, 2023 Supervising Physician Co-Signing Physician Notes Attending Attestation - Chart reviewed, care plan d/w ISATU Torres. I agree w/ the rojo components of her documentation. Kurt Taylor MD Subjective Patient seen resting in bed feels like she is at her functional baseline excellent respone to Relistor no events on tele Review of Systems Review of Systems: All systems reviewed & are unremarkable except as noted in Subjective Physical Exam Physical Exam: General: NAD, morbidly obese, chronically ill VS as above Resp: normal respiratory effort, lungs diminished in the bases CV: RRR, no murmur, Abd: normal bowel sounds, nontender Extremities: residual left-sided weakness from prior stroke, no pitting edema LE Neuro: A&O x3, Results & Data Results & Data Vital Signs (Past 12 Hours) Vital Signs Temp Pulse Pulse Resp BP Pulse Ox O2 Del Method 11/15/23 11:41 36.7 C 70 18 134/76 95 Nasal Cannula 11/15/23 07:40 36.5 C 73 20 98/65 L 96 Room Air 11/15/23 07:29 65 11/15/23 07:18 Nasal Cannula 11/15/23 03:52 36.7 C 70 16 94/56 L 95 Nasal Cannula O2 Flow Rate 11/15/23 11:41 2 11/15/23 07:40 11/15/23 07:29 11/15/23 07:18 4 11/15/23 03:52 4 Laboratory Results CBC and chemistry reviewed PG Care Time/CCT Total # of Minutes Spent Total Time Spent with Patient: Total time spent is greater than 50% in coordination of care (as documented) at patient's floor/unit and/or counseling patient: Coding Level of Care Code 79829 SUB INP/OBS CARE 2/35MIN Diagnoses Chest pain R07.9 Constipation K59.00 Acute on chronic heart failure with preserved ejection fraction (HFpEF) I50.33 Chronic respiratory failure with hypoxia J96.11 S/P mitral valve replacement with bioprosthetic valve Z95.3 Hypokalemia E87.6 Chronic right arterial ischemic stroke, MCA (middle cerebral artery) I69.30 Morbid obesity E66.01 GERD (gastroesophageal reflux disease) K21.9
--- NOTE | 2023-11-16 10:13 | Discharge Summary ---
Discharge Summary Date of Service November 16, 2023 Principal Dx & Hospital Course #1 = Principal Diagnosis (1) Chest pain: Two episodes of substernal chest pain with radiation to the jaw/neck on 11/10 and 11/11 - episodes lasting several minutes at a time Patient reports taking low-dose Eliquis 2.5mg BID for DVT PPx However, given acute onset of symptoms, (+) D-dimer, and hemoptysis x 1 episode, will order chest CTA for PE r/o - patient continues to decline this - agreeable to lower extremity Dopplers: These are negative for acute DVT Biofire negative. troponin negative x 2 patient remains chest pain-free, and is more concerned about her constipation. Continue to replete electrolytes - K replace p.o. and IV 11/13,11/14 - Mag replaced IV (chronic p.o. supplementation) 11/13 resolved. No further episodes of chest pain during admission (2) Constipation: likely exacerbated by her methadone use, reports no bowel movement at least a week - daily senna and MiraLAX BID no signs of obstruction currently excellent response to Relistor - consider GI follow-up for Movantik (3) Acute on chronic heart failure with preserved ejection fraction (HFpEF): Patient follows with heart failure clinic - however has not been seen out patient since August and has had an admission for CHF since. Documentation of missed appointments/difficulty reaching Chronically on 4 L O2 Weight at discharge 09/27: 182 kg, weight on admission admission 197 kg (bedweight) - standing weight 178.9kg --> pt not in CHF exacerbation, no edema, no increased O2 needs and weight is at baseline Continue Bumex, metolazone, and spironolactone as prescribed echo with no significant change from 09/2023, EF 65-70 no regional wall motion abnormalities. 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 concerns for CHf exacerbation, but once weighed on standing scale patient was at dry weight. Constipation improved with relistor, may be candidate for Movantik at discharge patient complained of chronic cough for 2 to 3 months, consider pulmonology outpatient Medication Changes From Visit None Admission HPI Per Admitting Provider Michelle is a 38-year-old female with PMH of CVA in 2019 with left hemiparesis, HFpEF, hepatitis C, opioid use disorder in remission, endocarditis s/p mitral valve replacement with bioprosthetic valve, primary hypothyroidism, dysphagia, CARINA, bipolar disorder, and anxiety. She presented via EMS for chest pain with radiation into her throat and jaw on 11/11. Has had 2 episodes of this chest pain over the past couple days. The chest pain is substernal, and she initially thought it was gastric reflux, but then her heart with throbbing pain. The pain lasts for several minutes at a time. It radiates up to her neck and jaw, and slightly to the shoulders bilaterally. No radiation down the arms. Patient took all of her regular morning medications today; no recent change in medications. She reports good compliance with taking her Eliquis. Patient medications are managed by her mother, who fills her medicine container monthly. She reports that she was given aspirin 324 mg in the ambulance. No history of DVT/PE to her knowledge. Patient is on 4 L NC supplemental oxygen at baseline, but she sometimes comes up to 5 L as needed. She denies CPAP use at night. She has mild SOB with exertion and at rest at baseline ever since her stroke in 2019; she denies any change from her baseline. She also notes that she has had a rash on her face for the past month, which she initially thought to be psoriasis. She does have a history of GERD, but this does not feel like past episodes according to her. Her family members (mom, stepdad, and daughter are all sick with flulike symptoms). She denies recent smoking, alcohol use, and recreational drug use. She is chest pain-free at time of admission. Patient was mildly hypotensive at about 116/58, and mildly tachycardic at 95 bpm on arrival; patient's vitals are stable at time of admission; SpO2 96% on 4L NC. ED course: ROS: Patient endorses increased fatigue, chest pain, productive cough (dark malhotra/green x 1 mo), and hemoptysis x1 episode last week. Patient denies fever, chills, night-sweats, WILL, dizzy, lightheadedness, confusion, SOB, pleuritic CP, chest palpitations, abdominal pain, N/V, or changes in urinary/bowel habits. Discharge Exam General: NAD, morbidly obese, chronically ill VS as above Resp: normal respiratory effort, lungs diminished in the bases CV: RRR, no murmur, Abd: normal bowel sounds, nontender Extremities: residual left-sided weakness from prior stroke, no pitting edema LE Neuro: A&O x3, Updated Medication List Medication Instructions Recorded Confirmed Type Wheelchair (Manual) #1 ea 03/25/22 09/24/23 Rx Hospital Bed Homecare (Hospital #1 ea 04/18/22 09/24/23 Rx Bed) Wheelchair (Manual) (Manual #1 ea 04/18/22 09/24/23 Rx Wheelchair) Lift Chair #1 ea 10/09/22 09/24/23 Rx miscellaneous medical supply #1 ea 10/16/22 09/24/23 Rx aspirin 81 mg chewable tablet 81 mg PO QAM 12/16/22 11/12/23 History melatonin 3 mg tablet 3 mg PO HS 12/16/22 11/12/23 History methadone 10 mg tablet 72 mg PO QAM 12/16/22 11/12/23 History multivitamin with minerals 1 tab PO QAM 12/16/22 11/12/23 History epinephrine 0.3 mg/0.3 mL 0.3 mg (0.3 mL) IM .COMPLEX PRN 12/26/22 11/12/23 Rx injection, auto-injector anaphylaxis #2 ea Oxygen Home #1 ea 01/26/23 09/24/23 Rx acetaminophen 650 mg 650 mg PO Q8H PRN fever or pain #1 09/04/23 05/22/24 Rx tablet,extended release (Tylenol 8 tab Hour) diclofenac sodium 1 % topical gel 4 g EXT QID PRN right knee pain OR 02/24/23 11/12/23 Rx (Voltaren Arthritis Pain) back pain #1 tube bumetanide 2 mg tablet 4 mg (2 x 2 mg) PO BID #120 tabs 03/06/23 11/12/23 Rx polyethylene glycol 3350 17 gram 17 g PO DAILY PRN Constipation 05/01/23 11/12/23 History oral powder packet (Miralax) Powered Wheelchair #1 ea 05/27/23 09/24/23 Rx potassium chloride 20 mEq 40 meq (2 x 20 mEq) PO BID #120 06/05/23 11/12/23 Rx tablet,extended release tabs fluticasone propionate 100 1 inh inhalation BID 08/08/23 11/12/23 History mcg/actuation blister powder for inhalation metolazone 2.5 mg tablet 2.5 mg PO Q OTHER DAY 08/08/23 11/12/23 History apixaban 2.5 mg tablet 2.5 mg PO BID #60 tabs 09/09/23 11/12/23 Rx baclofen 10 mg tablet 10 mg PO BID PRN muscle 09/19/23 11/12/23 Rx stiffness/spasm #60 tabs trazodone 50 mg tablet 50 mg PO HS #30 tabs 09/19/23 11/12/23 Rx levothyroxine 75 mcg tablet 75 mcg PO DAILYBB 09/24/23 11/12/23 History magnesium oxide 400 mg (241.3 mg 400 mg PO HS 09/24/23 11/12/23 History magnesium) tablet pantoprazole 40 mg tablet,delayed 40 mg PO QAM 09/24/23 11/12/23 History release sertraline 100 mg tablet 200 mg PO QAM 09/24/23 11/12/23 History spironolactone 25 mg tablet 50 mg (2 x 25 mg) PO QAM #60 tabs 09/28/23 11/12/23 Rx gabapentin 600 mg tablet 600 mg PO TID #90 tabs 09/29/23 11/12/23 Rx metoprolol tartrate 50 mg tablet 25 mg (1/2 x 50 mg) PO BID #30 tabs 10/10/23 11/12/23 Rx clonazepam 0.5 mg tablet 0.5 mg PO HS #30 tabs 10/28/23 11/12/23 Rx ketoconazole 2 % topical cream 1 applic topical BID PRN NEEDED 11/12/23 11/12/23 History Hospital Stay Data Consultations 11/12/23 21:14 ED Decision to Admit Stat Diagnostic Imagining Performed Chest X-Ray 11/12/23 17:40 XR chest 2V PA/lateral CLINICAL HISTORY: Chest pain, nonspecific TECHNIQUE: 2 views of the chest were obtained. Comparison: Comparison is made to chest radiograph 09/24/2023 FINDINGS: Median sternotomy wires are unchanged. Cardiomegaly is noted. Prominence and cephalization of the vasculature is seen. No evidence of pleural effusion or pneumothorax. IMPRESSION: Cardiomegaly and mild pulmonary edema. ACT 112: Negative or not required by law. Electronically signed by: Hiro Santoyo M.D. 11/13/2023 6:59 AM Venous Doppler Study 11/13/23 00:08 BILATERAL LOWER EXTREMITY VENOUS DOPPLER HISTORY: Acute pain and swelling of the right lower leg ?DVT COMPARISON STUDY: None. FINDINGS: There is normal compressibility, flow, and augmentation within the bilateral lower extremity deep venous systems. Distal popliteal veins are not not well-visualized secondary to patient positioning. IMPRESSION: No DVT within the right or left lower extremity. ACT 112: Negative or not required by law. Electronically signed by: Alex Ibarra M.D. 11/13/2023 2:25 PM Pending Results Patient Have Any Pending Studies at Discharge: No Discharge Instructions Given to Patient (Per Discharging Provider) Ms. Salcido, you were hospitalized after having some episodes of chest pain at home. Thankfully, those have not recurred while you were here. Your troponin (heart enzyme test) was normal multiple times and there was no blood clot in your legs. You were also constipated that responded nicely to relistor. if you struggle with constipation at baseline (which is likely from your Methadone) you should talk to yur PCP about being put on Movantik. I have also attached the information about the GI doctors above. If there are concerns about chronic cough - would recommend outpatient pulomonology follow up. Your heart failure is well controlled and you should continue your medications at home. You are due for the next dose of you metolazone tomorrow, 11/16. Make sure you are taking your potassium supplement. Activity: You can do normal everyday activities as your body allows. Take rest breaks if you feel tired. Do not overexert. Stop activity if you have pain, shortness of breath or feel dizzy. Follow-up appointments: Make an appointment with your primary care physician within one week of discharge. A copy of this summary will be sent to them. Every time you see your primary care physician, or any other doctor, bring your medication list, and a list of questions. CONTACT YOUR PRIMARY CARE PROVIDER if you experience any of the following: Shortness of breath or difficulty breathing Fevers or chills Feeling tired with normal activity or experiencing dizziness or fainting Difficulty following your treatment plan, or difficulty taking medications CALL 911 OR GO TO THE EMERGENCY DEPARTMENT if you experience any of the following: Severe abdominal pain or nausea/vomiting Severe chest pain, or chest pain that radiates (moves) to your jaw or arm Sudden, severe shortness of breath or difficulty breathing Thank you for allowing us to participate in your care. Total Time Total Time Spent Total Time Spent (In Minutes): Time spend day of discharge 33 minutes including direct patient care, medication reconciliation, documentation, review of labs and images, and coordination of care. Supervising Physician Co-Signing Physician Notes Attending Attestation and Discharge Note: Pt seen/examined, chart reviewed, discharge care plan d/w ISATU Torres. I agree w/ the rojo components of her discharge documentation. 38yo female with chronic left-sided hemiparesis due to prior stroke, chronic diastolic CHF, chronic hypoxic respiratory failure, and chronic narcotic dependence presented with episodes of chest pain with radiation to the throat/neck. Troponins were negative. EKG w/o ischemic changes. Echo with preserved EF and normal LV wall motion. Bioprosthetic mitral valve showed no rmal function. CTA chest was recommended in light of presenting chest pain but she declined the CT multiple times. Stay complicated by opiated-induced constipation -- improved with relistor. Other chronic medical problems were stable. Discharge exam - gen - lying in bed comfortably, NAD neck - no JVD mouth - MMM heart - RRR, s1 s2, no murmur lungs - CTA B/l abd - soft NT ND BS+ ext - mild edema of b/l feet and ankles, worse on left; pulses 2+ b/l feet; mild edema of left arm due to left-sided hemiparesis Kurt Taylor MD Coding Level of Care Code 38695 INP/OBS DISCH >30 MIN Diagnoses Chest pain R07.9 Constipation K59.00 Acute on chronic heart failure with preserved ejection fraction (HFpEF) I50.33 Chronic respiratory failure with hypoxia J96.11 S/P mitral valve replacement with bioprosthetic valve Z95.3 Hypokalemia E87.6 Chronic right arterial ischemic stroke, MCA (middle cerebral artery) I69.30 Morbid obesity E66.01 GERD (gastroesophageal reflux disease) K21.9
== END 2023-11-16 15:24 | disposition home or self-care (01) | DRG 313 ==
LOC: ED 17:24 → SUATTDRO 23:00 → INTOOBSV 23:00 → EDINP 23:00 → 2W 11-13 01:28

== ENCOUNTER 2024-03-14 14:56 | Inpatient (IN) ==
--- NOTE | 2024-03-14 16:30 | XRay Report ---
XR chest 1V not portable CLINICAL HISTORY: Chest pain, nonspecific COMPARISON STUDY: Chest CT February 18, 2023. Chest radiograph November 12, 2023. FINDINGS: Status post median sternotomy. No pneumothorax or pleural effusion is present. There is mod erate enlargement of the cardiac silhouette. This is increased since prior exam, possibly technical. Interstitial thickening is present. No consolidation is identified to suggest pneumonia. IMPRESSION: 1. Moderate enlargement of the cardiac silhouette, increased since prior exam, possibly technical. 2. Pulmonary vascular congestion with possible mild pulmonary edema. ACT 112: Negative or not required by law. Electronically signed by: Justin Valle M.D. 03/14/2024 4:28 PM
--- NOTE | 2024-03-14 17:24 | Emergency Department Note ---
Impression & Plan SOB (shortness of breath), CHF (congestive heart failure), Fluid overload, Pedal edema, Hypokalemia ED Provider Note NAME: TWILA RADER AGE: 38 SEX: F : 1985 ARRIVES VIA: Ambulance INFORMANT: [Patient][mother] ED PROVIDER(S): [Gaudencio Brunner MD] CHIEF COMPLAINT: Edema HISTORY OF PRESENT ILLNESS: The patient is a 38-year-old female with history of fluid overload. She has had a week of increasing shortness of breath and has needed to wear her 5 L of oxygen during the day, not just at night. She is pale and ashen in color with any exertion. Her legs are quite a bit larger in size. Despite her diuretics, she is not making a good amount of urine. She was referred to the ER for IV diuresis. PMHx/PSHx/Social Hx: See Below PHYSICAL EXAM: GENERAL: Patient is in no acute distress. HEENT: No acute trauma, normocephalic atraumatic, mucous membranes moist, no nasal congestion. NECK: No stridor, no adenopathy, no meningismus, trachea is midline. LUNGS: Clear to auscultation bilaterally when listening anterior, no wheeze, no rhonchi, breath sounds equal. HEART: Without murmurs gallops or rubs, regular rate and rhythm. Heart tones distant. ABDOMEN: Soft, nontender, no peritonitis. Obese. EXTREMITIES: No cyanosis, full range of motion of all the joints without pain or difficulty. Significant bilateral pedal edema. NEUROLOGIC: Oriented x 3, no acute motor or sensory deficits, no focal weakness. SKIN: No jaundice, no diaphoresis. DIFFERENTIAL DIAGNOSIS: CHF, fluid overload, renal failure, electrolyte imbalance, anemia, UTI, among others. EMERGENCY DEPARTMENT PROCEDURES: MEDICAL DECISION MAKING: There is no leukocytosis. The patient is anemic however, this is a known diagnosis. Platelet count somewhat elevated at 477. No coagulopathy. Potassium low at 2.9. No renal failure. No worrisome liver enzyme elevation. BNP was not elevated making CHF less likely. ECG showed a normal sinus rhythm, no acute ischemia. Cardiac enzyme testing x 1 was not consistent with acute cardiac injury. Urinalysis did not show infection. Chest film shows cardiomegaly and what appears to be some fluid overload/CHF. On exam, the patient was quite edematous. The patient was given 4 mg of IV Bumex. A Monique catheter was placed. She was ordered for oral and IV potassium, she refused the IV potassium. The patient was sent to our hospital for hospitalization and IV diuresis. This seems appropriate given the circumstances, especially, given her increasing shortness of breath. I spoke with the patient and family, I spoke with case management. The on-call hospitalist was consulted. Prior/Outside records/notes reviewed: None ECG per my interpretation: Indication was shortness of breath. The ECG shows a normal sinus rhythm with a rate of 72. There is some nonspecific ST change. There is no acute ST elevation, no PVCs. The QTc is 492. Continuous Cardiac Monitoring per my interpretation: An order was placed for continuous cardiac monitoring. The monitor shows a rate of 65 with normal sinus rhythm. Imaging/x-ray results per my interpretation: Chest x-ray shows cardiomegaly and heart failure. Chronic Medical/Social conditions affecting care: History of nightly O2 nasal cannula requirement. Care/Management discussed with: Case management, the on-call hospitalist. Level of care consideration(s): After review of the information above and other included data: --I believe the patient requires escalation of care to admission DISPOSITION: Admission Past Med/Surg History Problem List (Updated 03/14/24 @ 21:03 by Gaudencio Brunner MD) Hypokalemia (Acute) Pedal edema (Acute) Fluid overload (Acute) CHF (congestive heart failure) (Acute) SOB (shortness of breath) (Acute) Chronic constipation Acute on chronic respiratory failure with hypoxia Hypokalemia (Acute) S/P mitral valve replacement with bioprosthetic valve (Acute 06/2022) Physical deconditioning Right knee DJD Knee arthropathy Leg swelling (Acute) Primary hypothyroidism Sleep apnea (Acute) Left spastic hemiparesis Hepatitis C Anxiety Anemia (Acute) (HFpEF) heart failure with preserved ejection fraction Nocturnal hypoxemia Obstructive sleep apnea Obesity hypoventilation syndrome Bipolar disorder Constipation due to pain medication Chronic right arterial ischemic stroke, MCA (middle cerebral artery) Ambulatory dysfunction Seborrheic dermatitis Urinary retention with incomplete bladder emptying Drug abuse in remission Facial droop due to old stroke Homonymous hemianopsia due to recent cerebrovascular accident (Acute) Dysphagia Medical History GERD (gastroesophageal reflux disease) Chronic respiratory failure with hypoxia Tobacco dependence Morbid obesity Right knee pain Cirrhosis Fatty liver ANTWAN (acute kidney injury) Back pain Hypothyroidism Snoring Iron deficiency B12 deficiency Thalassemia Edema, peripheral Splenic abscess Splenomegaly Hypoxia Opioid use disorder, severe, in sustained remission on maintenance therapy Methadone MENDEZ (generalized anxiety disorder) Major depressive disorder, recurrent episode, moderate with anxious distress Left-sided weakness History of embolic stroke Rt MCA History of stroke Drug abuse and dependence Endocarditis PCOS (polycystic ovarian syndrome) Surgical History H/O mitral valve replacement History of repair of ACL History of section History of tubal ligation Family History Grandmother (Paternal) Breast cancer Grandfather (Maternal) Myocardial infarction Graves disease Grandfather (Paternal) Myocardial infarction Other Thalassemia Denies family history of Colon cancer Ovarian cancer Prostate cancer Social History Smoking Status: Former smoker Tobacco Type: Cigarettes packs per day: 1; Second Hand Exposure: No; Do You Dip or Chew Tobacco: No; Hx Alcohol Use: No Hx Substance Use: No Preferred Language: Persian Communication Ability: Effective Visual Impairment: No Limitations Hearing Ability: Normal Light Industrial Supervisor Required: No Beliefs That Will Affect Care: None marital status: Single Current Living Situation: Family Current Living Situation Comment: home with daughter and mom 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 Feels Safe at Home: Yes Childhood Exposure to Second-Hand Smoke: No Diet: regular Diet Comment: regular Dental Care, Regularly: No Physical Activity Frequency: Does not Exercise Seatbelt Use: sometimes Sunscreen Use: No Assistive Devices: Oxygen - Continuous, Walker and Wheelchair Allergies Allergies Allergy/AdvReac Type Severity Reaction Status Date / Time sulfamethoxazole Allergy Severe Anaphylaxis Verified 02/02/24 11:51 [From Bactrim] trimethoprim [From Bactrim] Allergy Severe Anaphylaxis Verified 02/02/24 11:51 atorvastatin AdvReac Intermediate Muscle Pain Verified 02/02/24 11:51 Home Meds Home Medications Medication Instructions Recorded Confirmed aspirin 81 mg chewable tablet 81 mg PO QAM 12/16/22 03/14/24 melatonin 3 mg tablet 3 mg PO HS 12/16/22 03/14/24 methadone 10 mg tablet 72 mg PO QAM 12/16/22 03/14/24 multivitamin with minerals 1 tab PO QAM 12/16/22 03/14/24 polyethylene glycol 3350 17 gram 17 g PO DAILY PRN Constipation 05/01/23 03/14/24 oral powder packet (Miralax) magnesium oxide 400 mg (241.3 mg 400 mg PO HS 09/24/23 03/14/24 magnesium) tablet ketoconazole 2 % topical cream 1 applic topical BID PRN NEEDED 11/12/23 03/14/24 Hospital Bed Homecare (Hospital 03/14/24 03/14/24 Bed) Lift Chair 03/14/24 03/14/24 miscellaneous medical supply See Rx Instructions .Route 03/14/24 .MEDSUPPLY No Longer Needed Previous Rx's Medication Instructions Recorded Wheelchair (Manual) #1 ea 03/25/22 Wheelchair (Manual) (Manual #1 ea 04/18/22 Wheelchair) epinephrine 0.3 mg/0.3 mL 0.3 mg (0.3 mL) IM .COMPLEX PRN 12/26/22 injection, auto-injector anaphylaxis #2 ea acetaminophen 650 mg 650 mg PO Q8H PRN fever or pain #1 02/24/23 tablet,extended release (Tylenol 8 tab Hour) diclofenac sodium 1 % topical gel 4 g EXT QID PRN right knee pain OR 02/24/23 (Voltaren Arthritis Pain) back pain #1 tube Powered Wheelchair #1 ea 05/27/23 apixaban 2.5 mg tablet 2.5 mg PO BID #60 tabs 09/09/23 baclofen 10 mg tablet 10 mg PO BID PRN muscle 09/19/23 stiffness/spasm #60 tabs trazodone 50 mg tablet 50 mg PO HS #30 tabs 09/19/23 metoprolol tartrate 50 mg tablet 25 mg (1/2 x 50 mg) PO BID #30 tabs 10/10/23 bumetanide 2 mg tablet 4 mg (2 x 2 mg) PO BID #120 tabs 12/15/23 gabapentin 600 mg tablet 600 mg PO TID #90 tabs 12/19/23 Wheelchair (Powered) (Power #1 ea 12/22/23 Wheelchair) spironolactone 25 mg tablet 50 mg (2 x 25 mg) PO QAM #60 tabs 12/22/23 lubiprostone 24 mcg capsule 24 mcg PO BID #60 caps 12/23/23 (Amitiza) potassium chloride 20 mEq 40 meq (2 x 20 mEq) PO BID #120 01/19/24 tablet,extended release tabs Oxygen Home #1 ea 01/26/24 Portable Oxygen #1 ea 01/26/24 sertraline 100 mg tablet 200 mg (2 x 100 mg) PO QAM #180 02/02/24 tabs levothyroxine 75 mcg tablet 75 mcg PO DAILYBB #90 tabs 02/11/24 cetirizine 10 mg tablet 10 mg PO DAILY #90 tabs 02/13/24 famotidine 40 mg tablet 40 mg PO PM #90 tabs 02/13/24 metolazone 2.5 mg tablet See Rx Instructions .Route 02/16/24 .COMPLEX #30 tabs clonazepam 0.5 mg tablet 0.5 mg PO HS #30 tabs 03/01/24 pantoprazole 40 mg tablet,delayed 40 mg PO QAM #90 tabs 03/01/24 release Results & Data (ED) Vital Signs Vital Signs - 24 hr 03/14/24 15:07 03/14/24 16:00 03/14/24 16:00 Temperature 37.4 C Temperature Source Oral Pulse Rate 71 78 Pulse Rhythm Regular Respiratory Rate 12 12 Respiratory Effort / Characteristics Non-Labored Spontaneous Respiratory Depth Normal Blood Pressure 109/70 Blood Pressure Mean 83 Pulse Oximetry 97 97 97 Oxygen Delivery Method Nasal Cannula Nasal Cannula Nasal Cannula Oxygen Flow Rate 5 5 5 Sepsis Recent Fever Within 48 Hours No Sepsis New/Unexplained Change in Mental Status No Sepsis Action Taken by Nursing No Action Required 03/14/24 16:24 03/14/24 16:40 03/14/24 18:34 Temperature Temperature Source Pulse Rate 70 70 70 Pulse Rhythm Respiratory Rate 14 14 Respiratory Effort / Characteristics Respiratory Depth Blood Pressure 110/75 115/70 Blood Pressure Mean 86 85 Pulse Oximetry 97 98 Oxygen Delivery Method Nasal Cannula Nasal Cannula Oxygen Flow Rate 5 5 Sepsis Recent Fever Within 48 Hours Sepsis New/Unexplained Change in Mental Status Sepsis Action Taken by Nursing 03/14/24 19:57 03/14/24 20:12 Temperature Temperature Source Pulse Rate 73 72 Pulse Rhythm Respiratory Rate 24 Respiratory Effort / Characteristics Respiratory Depth Blood Pressure 96/60 L Blood Pressure Mean 72 Pulse Oximetry 98 Oxygen Delivery Method Nasal Cannula Oxygen Flow Rate 5 Sepsis Recent Fever Within 48 Hours Sepsis New/Unexplained Change in Mental Status Sepsis Action Taken by [facility] Medications Current Medication List: was personally reviewed by me Laboratory Data Attestation: I reviewed the patient's lab results. 03/14/24 18:49 03/14/24 18:49 Lab Results 03/14/24 03/14/24 Range/Units 17:41 18:49 WBC 9.36 (4.8-10.8) K/ul RBC 4.76 (4.20-5.40) M/uL Hgb 10.9 L (12.0-16.0) g/dl Hct 38.0 (37.0-47.0) % MCV 79.8 L (80.0-100.0) fL MCH 22.9 L (25.0-34.0) pg MCHC 28.7 L (32.0-36.0) g/dL RDW Std Deviation 40.7 (36.4-46.3) fL RDW Coeff of Alexia 14.1 (11.5-14.5) % Plt Count 477 H (130-400) K/uL MPV 9.3 L (9.4-12.4) fL Immature Gran % (Auto) 0.2 % Neut % (Auto) 65.2 % Lymph % (Auto) 24.0 % [place] % (Auto) 5.7 % Eos % (Auto) 4.2 % Baso % (Auto) 0.7 % Neut # (Auto) 6.10 (1.40-6.50) K/uL Lymph # (Auto) 2.25 (1.20-3.40) K/uL [place] # (Auto) 0.53 (0.11-0.59) K/uL Eos # (Auto) 0.39 (0.00-0.50) K/uL Baso # (Auto) 0.07 (0.00-0.20) K/uL Immature Gran # (Auto) 0.02 (0.01-0.20) K/uL PT 11.0 (9.0-12.0) Seconds INR 1.0 (0.9-1.1) APTT 24 (21-31) Seconds PTT Ratio 0.9 Sodium 138 (136-145) mmol/L Potassium 2.9 L (3.5-5.1) mmol/L Chloride 91 L (98-107) mmol/L Carbon Dioxide 40 H (21-32) mmol/L Anion Gap 7 (3-11) BUN 13 (6-23) mg/dl Creatinine 1.03 (0.6-1.2) mg/dl Est Cr Clr Drug Dosing 125.2 ml/min Est GFR ( Amer) 80.4 ml/min Est GFR (Non-Af Amer) 69.4 ml/min BUN/Creatinine Ratio 12.6 (10-20) Glucose 98 (70-99(Fasting)) mg/dl Calcium 9.4 (8.6-10.3) mg/dl Magnesium 1.9 (1.7-2.4) mg/dl Total Bilirubin 0.4 (0.2-1.0) mg/dl AST 45 H (13-39) U/L ALT 31 (7-52) U/L Alkaline Phosphatase 93 (34-104) U/L Troponin I High Sens < 2.3 (0-14) pg/ml B-Natriuretic Peptide 24 (0-100) pg/ml Total Protein 9.4 H (6.0-8.3) gm/dl Albumin 4.4 (3.4-5.0) gm/dl Globulin 5.0 H (2.5-4.0) gm/dl Albumin/Globulin Ratio 0.9 (0.9-2) Urine Color Yellow Urine Appearance Clear (Clear) Urine pH 7.5 (4.5-7.5) Ur Specific [place] 1.009 (1.000-1.030) Urine Protein Negative (Negative) Urine Glucose (UA) Negative (Negative) Urine Ketones Negative (Negative) Urine Blood Negative (Negative) Urine Nitrite Negative (Negative) Urine Bilirubin Negative (Negative) Urine Urobilinogen Negative (Negative) Ur Leukocyte Esterase Negative (Negative) Administered Medications Discontinued Medications Bumetanide 4 mg/ Syringe 16 mls @ 4 mls/min IV ONE ONE Stop: 03/14/24 19:35 Last Admin: 03/14/24 20:06 Dose: 4 mls/min Documented By: CDM Potassium Chloride (K Maik / Wtr) 10 meq in 100 mls @ 100 mls/hr IV ONE ONE Stop: 03/14/24 20:31 Last Infusion: 03/14/24 20:08 Dose: Infused Documented By: Infusion: 03/14/24 19:55 Dose: 0 mls/hr Documented By: Admin: 03/14/24 19:43 Dose: 100 mls/hr Documented By: RADHA Potassium Chloride (Potassium Chloride Crtab 20 Meq Tabcr) 20 meq PO NOW STA Stop: 03/14/24 19:33 Last Admin: 03/14/24 19:43 Dose: 20 meq Documented By: RADHA Imaging Data Radiologist's Impression: Chest X-Ray 03/14/24 15:59 XR chest 1V not portable CLINICAL HISTORY: Chest pain, nonspecific COMPARISON STUDY: Chest CT February 18, 2023. Chest radiograph November 12, 2023. FINDINGS: Status post median sternotomy. No pneumothorax or pleural effusion is present. There is moderate enlargement of the cardiac silhouette. This is increased since prior exam, possibly technical. Interstitial thickening is present. No consolidation is identified to suggest pneumonia. IMPRESSION: 1. Moderate enlargement of the cardiac silhouette, increased since prior exam, possibly technical. 2. Pulmonary vascular congestion with possible mild pulmonary edema. ACT 112: Negative or not required by law. Electronically signed by: Justin Valle M.D. 03/14/2024 4:28 PM Discharge Plan Visit Data Chief Complaint: Edema To Extremity Stated Complaint: abd edema ED Provider: Gaudencio Brunner Discharge Problem: SOB (shortness of breath), CHF (congestive heart failure), Fluid overload, Pedal edema, Hypokalemia Patient Disposition: Admitted As Inpatient Condition: Fair Forms Stand Alone Forms: [facility] Prescriptions Prescriptions: No Action epinephrine 0.3 mg/0.3 mL auto-injector 0.3 mg IM .COMPLEX PRN (Reason: anaphylaxis) Qty: 2 1RF Rx Instructions: 0.3 mg intramuscularly once but repeat dose x1 in 5-15min if needed PRN; After first injection, proceed to the ER apixaban 2.5 mg tablet 2.5 mg PO BID Qty: 60 5RF baclofen 10 mg tablet 10 mg PO BID PRN (Reason: muscle stiffness/spasm) Qty: 60 5RF trazodone 50 mg tablet 50 mg PO HS Qty: 30 5RF metoprolol tartrate 50 mg tablet 25 mg PO BID Qty: 30 0RF bumetanide 2 mg tablet 4 mg PO BID Qty: 120 2RF Rx Instructions: take 7-8am each morning and about 3-4pm in the afternoon every day. gabapentin 600 mg tablet 600 mg PO TID Qty: 90 2RF spironolactone 25 mg tablet 50 mg PO QAM Qty: 60 0RF potassium chloride 20 mEq tablet extended release 40 meq PO BID Qty: 120 5RF (DME) Oxygen Home Liters Per Minute See Rx Instructions .ROUTE .MEDSUPPLY Qty: 1 0RF Rx Instructions: 2 liters NC O2 with sleep. (DME) Portable Oxygen Misc See Rx Instructions .Route Qty: 1 0RF Rx Instructions: As directed O2 concentrator 4L/min E66.2. [facility] levothyroxine 75 mcg tablet 75 mcg PO DAILYBB Qty: 90 1RF cetirizine 10 mg tablet 10 mg PO DAILY Qty: 90 1RF Rx Instructions: Take 1 tablet by mouth once daily famotidine 40 mg tablet 40 mg PO PM Qty: 90 1RF Rx Instructions: Take 1 tablet by mouth in the evening metolazone 2.5 mg tablet See Rx Instructions .ROUTE .COMPLEX Qty: 30 0RF Hold Instructions: Resume on 08/17/23. Dose Instruction: TAKE 1 TABLET BY MOUTH EVERY OTHER DAY Rx Instructions: TAKE 1 TABLET BY MOUTH EVERY OTHER DAY pantoprazole 40 mg tablet,delayed release (DR/EC) 40 mg PO QAM Qty: 90 0RF clonazepam 0.5 mg tablet 0.5 mg PO HS Qty: 30 0RF (DME) Powered Wheelchair Misc See Rx Instructions .Route Qty: 1 0RF Rx Instructions: As directed ICD-10: G81.14, M17.11 (DME) Wheelchair (Manual) Device See Rx Instructions .Route Qty: 1 0RF Rx Instructions: As [id number] Z86.73 (DME) Manual Wheelchair Device See Rx Instructions .Route Qty: 1 0RF Rx Instructions: aly[address] drive WC please G81.9 sertraline 100 mg tablet 200 mg PO QAM Qty: 180 3RF (DME) Power Wheelchair Device See Rx Instructions .Route Qty: 1 0RF Rx Instructions: As directed G81.14, R26.2 lubiprostone [Amitiza] 24 mcg capsule 24 mcg PO BID Qty: 60 5RF methadone 10 mg Tablet 72 mg PO QAM melatonin 3 mg Tablet 3 mg PO HS aspirin 81 mg Tablet,Chewable 81 mg PO QAM multivitamin with minerals Tablet 1 tab PO QAM diclofenac sodium [Voltaren Arthritis Pain] 1 % Gel 4 g EXT QID PRN (Reason: right knee pain OR back pain) Qty: 1 0RF acetaminophen [Tylenol 8 Hour] 650 mg tablet extended release 650 mg PO Q8H PRN (Reason: fever or pain) Qty: 1 0RF polyethylene glycol 3350 [Miralax] 17 gram powder in packet 17 g PO DAILY PRN (Reason: Constipation) Rx Instructions: you can purchase daily, individual packets OR a bottle; both are [id number]. magnesium oxide 400 mg (241.3 mg magnesium) tablet 400 mg PO HS ketoconazole 2 % cream 1 applic topical BID PRN (Reason: NEEDED) Rx Instructions: apply to face miscellaneous medical supply Misc See Rx Instructions .ROUTE .MEDSUPPLY Rx Instructions: Left wrist splint Dx: lt spastic hemiparesis (DME) Hospital Bed Misc See Rx Instructions .Route Rx Instructions: As directed G81.9, I63.411 (DME) Lift Chair Misc See Rx Instructions .Route Rx Instructions: As directed Referrals Referrals: Stacey Arce MD [Primary Care Provider] - Discharge Problem: CHF (congestive heart failure) Qualifiers: Heart failure type: unspecified Heart failure chronicity: acute Qualified Code(s): I50.9 - Heart failure, unspecified Fluid overload Qualifiers: Hypervolemia type: unspecified Qualified Code(s): E87.70 - Fluid overload, unspecified
[2024-03-14 17:51] LABS: Appearance Urine Clear (Clear); Bilirubin Urine Negative (Negative); Blood Urine Negative (Negative); Color Urine Yellow; Glucose Urine UA Negative (Negative); Ketones Urine Negative (Negative); Leukocyte Esterase Urine Negative (Negative); Nitrite Urine Negative (Negative); Protein Urine Negative (Negative); Specific Gravity Urine 1.009 (1.000-1.030); Urobilinogen Urine Negative (Negative); pH Urine 7.5 (4.5-7.5)
[2024-03-14 19:05] LABS: Basophils # (auto) 0.07 K/uL (0.00-0.20); Basophils % (auto) 0.7 %; Eosinophils # (auto) 0.39 K/uL (0.00-0.50); Eosinophils % (auto) 4.2 %; Hemoglobin 10.9 g/dl (12.0-16.0); Immature Granulocytes # (auto) 0.02 K/uL (0.01-0.20); Immature Granulocytes % (auto) 0.2 %; Lymphocytes # (auto) 2.25 K/uL (1.20-3.40); Mean Corpuscular Hemoglobin 22.9 pg (25.0-34.0); Mean Corpuscular Hgb Conc 28.7 g/dL (32.0-36.0); Mean Corpuscular Volume 79.8 fL (80.0-100.0); Mean Platelet Volume 9.3 fL (9.4-12.4); Monocytes # (auto) 0.53 K/uL (0.11-0.59); Monocytes % (auto) 5.7 %; Neutrophils % (auto) 65.2 %; Platelet Count 477 K/uL (130-400); RDW Coefficient of Variation 14.1 % (11.5-14.5); RDW Standard Deviation 40.7 fL (36.4-46.3); Red Blood Count 4.76 M/uL (4.20-5.40); White Blood Count 9.36 K/ul (4.8-10.8)
[2024-03-14 19:21] LABS: Alanine Aminotransferase 31 U/L (7-52); Albumin Globulin Ratio 0.9 (0.9-2); Albumin Level 4.4 gm/dl (3.4-5.0); Alkaline Phosphatase 93 U/L (34-104); Anion Gap 7 (3-11); Aspartate Aminotransferase 45 U/L (13-39); BUN Creatinine Ratio 12.6 (10-20); Bilirubin,Total 0.4 mg/dl (0.2-1.0); Blood Urea Nitrogen 13 mg/dl (6-23); Calcium 9.4 mg/dl (8.6-10.3); Carbon Dioxide 40 mmol/L (21-32); Chloride 91 mmol/L (98-107); Creatinine Clr Calc Pharmacy 125.2 ml/min; Est GFR (African American) 80.4 ml/min; Est GFR (Non-African American) 69.4 ml/min; Glucose 98 mg/dl (70-99(Fasting)); Magnesium 1.9 mg/dl (1.7-2.4); Potassium 2.9 mmol/L (3.5-5.1); Sodium 138 mmol/L (136-145); Total Protein 9.4 gm/dl (6.0-8.3)
[2024-03-14 19:30] LABS: Troponin I High Sensitivity < 2.3 pg/ml (0-14)
[2024-03-14 19:32] LABS: Partial Thromboplastin Ratio 0.9; Partial Thromboplastin Time 24 Seconds (21-31)
[2024-03-14] MEDS: POTASSIUM CHLORIDE / WTR 10 MEQ/100 ML PLCT IV ONE (19:43)
[2024-03-14] MEDS: POTASSIUM CHLORIDE CRTAB 20 MEQ TABCR PO STA ×2 (19:43→22:17)
[2024-03-14] MEDS: BUMETANIDE 4 MG in SYRINGE 0 ML IV ONE (20:06)
--- NOTE | 2024-03-14 20:22 | History & Physical Report ---
Date of Service March 14, 2024 Assessment & Plan (1) Acute on chronic respiratory failure with hypoxia: (2) Fluid overload: (3) (HFpEF) heart failure with preserved ejection fraction: (4) S/P mitral valve replacement with bioprosthetic valve: (5) Obstructive sleep apnea: (6) Hypokalemia: (7) Obesity hypoventilation syndrome: (8) Opioid use disorder, severe, in sustained remission: (9) Bipolar disorder: (10) Chronic right arterial ischemic stroke, MCA (middle cerebral artery): (11) History of pulmonary embolism: Plan Fluid overload/acute on chronic respiratory failure with hypoxia/HFpEF exacerbation/status post MVR with bioprosthetic valve- The patient will be admitted to telemetry for serial cardiac enzymes, serial EKG's, cardiac rhythm monitoring Most recent echocardiogram on 11/13/2023 with ejection fraction 65-70% Change bumetanide from 4 mg p.o. twice daily to 4 mg IV twice daily and received first dose in the ED Increase spironolactone from 50 mg p.o. every morning to twice daily Continue potassium chloride 40 mEq p.o. twice daily, giving an additional dose this evening. Of note, patient is unable to tolerate potassium given IV For now hold metolazone that she takes every other day Continue aspirin 81 mg every morning, metoprolol tartrate 25 mg p.o. twice daily History of pulmonary embolism- On Eliquis 2.5 mg p.o. twice daily for prophylaxis Obstructive sleep apnea/obesity hypoventilation syndrome/chronic oxygen requirement of 4 L nasal cannula- Target pulse ox 92% CPAP at bedtime as needed Chronic right arterial ischemic stroke/MCA CVA in 2019- Residual left hemiparesis is stable History of opioid use in remission- Continue methadone History of Present Illness Chief Complaint: The patient presents to the emergency department due to worsening lower extrem ity edema, shortness of breath, dyspnea on exertion, concerns regarding fluid overload, and reports that she becomes pale and sweaty. with minimal exertion, requiring up to 5 L of oxygen during the daytime. She reports that she is producing smaller volumes of urine than usual, despite taking her usual dose of diuretics. Primary Care Provider: Stacey Arce MD Allergies Allergy/AdvReac Type Severity Reaction Status Date / Time sulfamethoxazole Allergy Severe Anaphylaxis Verified 02/02/24 11:51 [From Bactrim] trimethoprim [From Bactrim] Allergy Severe Anaphylaxis Verified 02/02/24 11:51 atorvastatin AdvReac Intermediate Muscle Pain Verified 02/02/24 11:51 Home Medications Medication Instructions Recorded Confirmed Type Wheelchair (Manual) #1 ea 03/25/22 03/14/24 Rx Wheelchair (Manual) (Manual #1 ea 04/18/22 03/14/24 Rx Wheelchair) aspirin 81 mg chewable tablet 81 mg PO QAM 12/16/22 03/14/24 History melatonin 3 mg tablet 3 mg PO HS 12/16/22 03/14/24 History methadone 10 mg tablet 72 mg PO QAM 12/16/22 03/14/24 History multivitamin with minerals 1 tab PO QAM 12/16/22 03/14/24 History epinephrine 0.3 mg/0.3 mL 0.3 mg (0.3 mL) IM .COMPLEX PRN 12/26/22 03/14/24 Rx injection, auto-injector anaphylaxis #2 ea acetaminophen 650 mg 650 mg PO Q8H PRN fever or pain #1 02/24/23 03/14/24 Rx tablet,extended release (Tylenol 8 tab Hour) diclofenac sodium 1 % topical gel 4 g EXT QID PRN right knee pain OR 02/24/23 03/14/24 Rx (Voltaren Arthritis Pain) back pain #1 tube polyethylene glycol 3350 17 gram 17 g PO DAILY PRN Constipation 05/01/23 03/14/24 History oral powder packet (Miralax) Powered Wheelchair #1 ea 05/27/23 03/14/24 Rx apixaban 2.5 mg tablet 2.5 mg PO BID #60 tabs 09/09/23 03/14/24 Rx baclofen 10 mg tablet 10 mg PO BID PRN muscle 09/19/23 03/14/24 Rx stiffness/spasm #60 tabs trazodone 50 mg tablet 50 mg PO HS #30 tabs 09/19/23 03/14/24 Rx magnesium oxide 400 mg (241.3 mg 400 mg PO HS 09/24/23 03/14/24 History magnesium) tablet metoprolol tartrate 50 mg tablet 25 mg (1/2 x 50 mg) PO BID #30 tabs 10/10/23 03/14/24 Rx ketoconazole 2 % topical cream 1 applic topical BID PRN NEEDED 11/12/23 03/14/24 History bumetanide 2 mg tablet 4 mg (2 x 2 mg) PO BID #120 tabs 12/15/23 03/14/24 Rx gabapentin 600 mg tablet 600 mg PO TID #90 tabs 12/19/23 03/14/24 Rx Wheelchair (Powered) (Power #1 ea 12/22/23 03/14/24 Rx Wheelchair) spironolactone 25 mg tablet 50 mg (2 x 25 mg) PO QAM #60 tabs 12/22/23 03/14/24 Rx lubiprostone 24 mcg capsule 24 mcg PO BID #60 caps 12/23/23 03/14/24 Rx (Amitiza) potassium chloride 20 mEq 40 meq (2 x 20 mEq) PO BID #120 01/19/24 03/14/24 Rx tablet,extended release tabs Oxygen Home #1 ea 01/26/24 03/14/24 Rx Portable Oxygen #1 ea 01/26/24 03/14/24 Rx sertraline 100 mg tablet 200 mg (2 x 100 mg) PO QAM #180 02/02/24 03/14/24 Rx tabs levothyroxine 75 mcg tablet 75 mcg PO DAILYBB #90 tabs 02/11/24 03/14/24 Rx cetirizine 10 mg tablet 10 mg PO DAILY #90 tabs 02/13/24 03/14/24 Rx famotidine 40 mg tablet 40 mg PO PM #90 tabs 02/13/24 03/14/24 Rx metolazone 2.5 mg tablet See Rx Instructions .Route 02/16/24 03/14/24 Rx .COMPLEX #30 tabs clonazepam 0.5 mg tablet 0.5 mg PO HS #30 tabs 03/01/24 03/14/24 Rx pantoprazole 40 mg tablet,delayed 40 mg PO QAM #90 tabs 03/01/24 03/14/24 Rx release Hospital Bed Homecare (Hospital 03/14/24 03/14/24 History Bed) Lift Chair 03/14/24 03/14/24 History miscellaneous medical supply See Rx Instructions .Route 03/14/24 History .MEDSUPPLY No Longer Needed Past Med/Surg History Problem List (Updated 03/15/24 @ 00:13 by Yadiel Romeo MD) History of pulmonary embolism Opioid use disorder, severe, in sustained remission on maintenance therapy Methadone Hypokalemia (Acute) Pedal edema (Acute) Fluid overload (Acute) CHF (congestive heart failure) (Acute) SOB (shortness of breath) (Acute) Chronic constipation Acute on chronic respiratory failure with hypoxia Hypokalemia (Acute) S/P mitral valve replacement with bioprosthetic valve (Acute 06/2022) Physical deconditioning Right knee DJD Knee arthropathy Leg swelling (Acute) Primary hypothyroidism Sleep apnea (Acute) Left spastic hemiparesis Hepatitis C Anxiety Anemia (Acute) (HFpEF) heart failure with preserved ejection fraction Nocturnal hypoxemia Obstructive sleep apnea Obesity hypoventilation syndrome Bipolar disorder Constipation due to pain medication Chronic right arterial ischemic stroke, MCA (middle cerebral artery) Ambulatory dysfunction Seborrheic dermatitis Urinary retention with incomplete bladder emptying Drug abuse in remission Facial droop due to old stroke Homonymous hemianopsia due to recent cerebrovascular accident (Acute) Dysphagia Medical History GERD (gastroesophageal reflux disease) Chronic respiratory failure with hypoxia Tobacco dependence Morbid obesity Right knee pain Cirrhosis Fatty liver ANTWAN (acute kidney injury) Back pain Hypothyroidism Snoring Iron deficiency B12 deficiency Thalassemia Edema, peripheral Splenic abscess Splenomegaly Hypoxia Opioid use disorder, severe, in sustained remission on maintenance therapy Methadone MENDEZ (generalized anxiety disorder) Major depressive disorder, recurrent episode, moderate with anxious distress Left-sided weakness History of embolic stroke Rt MCA History of stroke Drug abuse and dependence Endocarditis PCOS (polycystic ovarian syndrome) Surgical History H/O mitral valve replacement History of repair of ACL History of section History of tubal ligation Family History Grandmother (Paternal) Breast cancer Grandfather (Maternal) Myocardial infarction Graves disease Grandfather (Paternal) Myocardial infarction Other Thalassemia Denies family history of Colon cancer Ovarian cancer Prostate cancer Social History Smoking Status: Former smoker Tobacco Type: Cigarettes and E-cigarettes / Vaping packs per day: 1; Cigarettes Per Day: 1 pack/day; Second Hand Exposure: No; Do You Dip or Chew Tobacco: No; Hx Alcohol Use: No Hx Substance Use: Yes Last Used Substance: Days (ago) Last Used Substance Other:: quit 4 years ago Substance Use Type Other:: clean for 10 months Preferred Language: Brazilian Communication Ability: Effective Visual Impairment: No Limitations Hearing Ability: Normal Field Support Technician Required: No Beliefs That Will Affect Care: None marital status: Single Current Living Situation: Family Current Living Situation Comment: lives with mom and children 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 Feels Safe at Home: Yes Childhood Exposure to Second-Hand Smoke: No Diet: regular Diet Comment: regular Dental Care, Regularly: No Physical Activity Frequency: Does not Exercise Seatbelt Use: sometimes Sunscreen Use: No Assistive Devices: Denture - Upper Review of Systems Review of Systems: The patient denies chest pain, palpitations, cough, sore throat, fevers, chills, sweats, nausea, vomiting, diarrhea , constipation, abdominal pain, pelvic pain, blood in urine or stool, dysuria, urinary frequency or urgency, lightheadedness, dizziness, headache, memory loss, loss of consciousness, rash, abnormal bruising or bleeding, new focal weakness, numbness or tingling in arms or legs, back or neck pain, or night sweats. The review of systems is otherwise negative other than for that already noted above, and at least 10 systems have been reviewed. Physical Exam Physical Exam: The patient is awake, alert and oriented 3, well developed and well nourished, normocephalic and atraumatic, lying in bed and in no acute distress. HEENT--PERRL, EOMI, mucous membranes and oropharynx dry. Neck--supple. No JVD. No bruits. Thyroid normal, trachea midline, no adenopathy. Heart--normal S1 and S2. No murmurs, rubs or gallops. Lungs--decreased breath sounds throughout. No respiratory distress, no accessory muscle use. Abdomen--normal bowel sounds and soft. Nontender. Nondistended Extremities--1+ bilateral pretibial pitting edema. Dermatologic--normal skin turgor, normal color, no abnormal lymph nodes, no rash. Neurologic--cranial nerves II through XII grossly intact. Rheumatologic--left hemiparesis with decreased range of movement Psychiatric--normal affect. Results & Data Results & Data Vital Signs (Past 12 Hours) Vital Signs Temp Pulse Resp BP Pulse Ox O2 Del Method O2 Flow Rate 03/14/24 20:12 72 24 96/60 L 98 Nasal Cannula 5 03/14/24 19:57 73 03/14/24 18:34 70 14 115/70 98 Nasal Cannula 5 03/14/24 16:40 70 03/14/24 16:24 70 14 110/75 97 Nasal Cannula 5 03/14/24 16:00 78 12 97 Nasal Cannula 5 03/14/24 16:00 97 Nasal Cannula 5 03/14/24 15:07 37.4 C 71 12 109/70 97 Nasal Cannula 5 Laboratory Results Laboratory Results WBC 9.36 K/ul (4.8-10.8) 03/14/24 18:49 RBC 4.76 M/uL (4.20-5.40) 03/14/24 18:49 Hgb 10.9 g/dl (12.0-16.0) L 03/14/24 18:49 Hct 38.0 % (37.0-47.0) 03/14/24 18:49 MCV 79.8 fL (80.0-100.0) L 03/14/24 18:49 MCH 22.9 pg (25.0-34.0) L 03/14/24 18:49 MCHC 28.7 g/dL (32.0-36.0) L 03/14/24 18:49 RDW Std Deviation 40.7 fL (36.4-46.3) 03/14/24 18:49 RDW Coeff of Alexia 14.1 % (11.5-14.5) 03/14/24 18:49 Plt Count 477 K/uL (130-400) H 03/14/24 18:49 MPV 9.3 fL (9.4-12.4) L 03/14/24 18:49 Immature Gran % (Auto) 0.2 % 03/14/24 18:49 Neut % (Auto) 65.2 % 03/14/24 18:49 Lymph % (Auto) 24.0 % 03/14/24 18:49 Colbert % (Auto) 5.7 % 03/14/24 18:49 Eos % (Auto) 4.2 % 03/14/24 18:49 Baso % (Auto) 0.7 % 03/14/24 18:49 Neut # (Auto) 6.10 K/uL (1.40-6.50) 03/14/24 18:49 Lymph # (Auto) 2.25 K/uL (1.20-3.40) 03/14/24 18:49 Colbert # (Auto) 0.53 K/uL (0.11-0.59) 03/14/24 18:49 Eos # (Auto) 0.39 K/uL (0.00-0.50) 03/14/24 18:49 Baso # (Auto) 0.07 K/uL (0.00-0.20) 03/14/24 18:49 Immature Gran # (Auto) 0.02 K/uL (0.01-0.20) 03/14/24 18:49 PT 11.0 Seconds (9.0-12.0) 03/14/24 18:49 INR 1.0 (0.9-1.1) 03/14/24 18:49 APTT 24 Seconds (21-31) 03/14/24 18:49 PTT Ratio 0.9 03/14/24 18:49 Sodium 138 mmol/L (136-145) 03/14/24 18:49 Potassium 2.9 mmol/L (3.5-5.1) L 03/14/24 18:49 Chloride 91 mmol/L (98-107) L 03/14/24 18:49 Carbon Dioxide 40 mmol/L (21-32) H 03/14/24 18:49 Anion Gap 7 (3-11) 03/14/24 18:49 BUN 13 mg/dl (6-23) 03/14/24 18:49 Creatinine 1.03 mg/dl (0.6-1.2) 03/14/24 18:49 Est Cr Clr Drug Dosing 125.2 ml/min 03/14/24 18:49 Est GFR ( Amer) 80.4 ml/min 03/14/24 18:49 Est GFR (Non-Af Amer) 69.4 ml/min 03/14/24 18:49 BUN/Creatinine Ratio 12.6 (10-20) 03/14/24 18:49 Glucose 98 mg/dl (70-99(Fasting)) 03/14/24 18:49 Calcium 9.4 mg/dl (8.6-10.3) 03/14/24 18:49 Magnesium 1.9 mg/dl (1.7-2.4) 03/14/24 18:49 Total Bilirubin 0.4 mg/dl (0.2-1.0) 03/14/24 18:49 AST 45 U/L (13-39) H 03/14/24 18:49 ALT 31 U/L (7-52) 03/14/24 18:49 Alkaline Phosphatase 93 U/L (34-104) 03/14/24 18:49 Troponin I High Sens < 2.3 pg/ml (0-14) 03/14/24 18:49 B-Natriuretic Peptide 24 pg/ml (0-100) 03/14/24 18:49 Total Protein 9.4 gm/dl (6.0-8.3) H 03/14/24 18:49 Albumin 4.4 gm/dl (3.4-5.0) 03/14/24 18:49 Globulin 5.0 gm/dl (2.5-4.0) H 03/14/24 18:49 Albumin/Globulin Ratio 0.9 (0.9-2) 03/14/24 18:49 Urine Color Yellow 03/14/24 17:41 Urine Appearance Clear (Clear) 03/14/24 17:41 Urine pH 7.5 (4.5-7.5) 03/14/24 17:41 Ur Specific [place] 1.009 (1.000-1.030) 03/14/24 17:41 Urine Protein Negative (Negative) 03/14/24 17:41 Urine Glucose (UA) Negative (Negative) 03/14/24 17:41 Urine Ketones Negative (Negative) 03/14/24 17:41 Urine Blood Negative (Negative) 03/14/24 17:41 Urine Nitrite Negative (Negative) 03/14/24 17:41 Urine Bilirubin Negative (Negative) 03/14/24 17:41 Urine Urobilinogen Negative (Negative) 03/14/24 17:41 Ur Leukocyte Esterase Negative (Negative) 03/14/24 17:41 Impressions Chest X-Ray 03/14/24 15:59 XR chest 1V not portable CLINICAL HISTORY: Chest pain, nonspecific COMPARISON STUDY: Chest CT February 18, 2023. Chest radiograph November 12, 2023. FINDINGS: Status post median sternotomy. No pneumothorax or pleural effusion is present. There is moderate enlargement of the cardiac silhouette. This is increased since prior exam, possibly technical. Interstitial thickening is present. No consolidation is identified to suggest pneumonia. IMPRESSION: 1. Moderate enlargement of the cardiac silhouette, increased since prior exam, possibly technical. 2. Pulmonary vascular congestion with possible mild pulmonary edema. ACT 112: Negative or not required by law. Electronically signed by: Justin Valle M.D. 03/14/2024 4:28 PM Code Status & VTE Plan Code Status Full code VTE Prophylaxis Plan VTE Prophylaxis will be ordered: Yes PG Care Time/CCT Total # of Minutes Spent Total Time Spent with Patient: Total time spent is greater than 50% in coordination of care (as documented) at patient's floor/unit and/or counseling patient: Coding Level of Care Code 98135 INT INP/OBS CARE 3/75MIN Diagnoses Acute on chronic respiratory failure with hypoxia J96.21 Fluid overload E87.70 Hypervolemia type: unspecified (HFpEF) heart failure with preserved ejection fraction I50.30 S/P mitral valve replacement with bioprosthetic valve Z95.3 Obstructive sleep apnea G47.33 Hypokalemia E87.6 Obesity hypoventilation syndrome E66.2 Opioid use disorder, severe, in sustained remission F11.21 Bipolar disorder F31.9 Chronic right arterial ischemic stroke, MCA (middle cerebral artery) I69.30 History of pulmonary embolism Z86.711 (2) Fluid overload Hypervolemia type: unspecified Qualified Code(s): E87.70 - Fluid overload, unspecified
[2024-03-14] MEDS ORDERED: POLYETHYLENE (MIRALAX) 17 GM PACK PO PRN (22:55)
[2024-03-14] MEDS: APIXABAN 2.5 MG TAB PO SCH (23:51)
[2024-03-14] MEDS: MAGNESIUM OXIDE 400 MG TAB PO SCH (23:52)
[2024-03-14] MEDS: METOPROLOL TARTRATE 25 MG TAB PO SCH (23:52)
[2024-03-14] MEDS: LUBIPROSTONE 8 MCG CAP PO SCH (23:53)
[2024-03-14] MEDS: SPIRONOLACTONE 25 MG TAB PO SCH (23:53)
[2024-03-14] MEDS: GABAPENTIN 600 MG TAB PO SCH (23:55)
[2024-03-14] MEDS: FAMOTIDINE 40 MG TABLET PO SCH (23:55)
[2024-03-14] MEDS: clonazePAM 0.5 MG TAB PO SCH (23:59)
[2024-03-14] MEDS: MELATONIN 3 MG TAB PO SCH (23:59)
[2024-03-15] MEDS: traZODone HCL 50 MG TAB PO SCH
[2024-03-15] MEDS: LEVOTHYROXINE SODIUM 75 MCG TABLET PO SCH (05:43)
[2024-03-15 06:56] LABS: Basophils # (auto) 0.06 K/uL (0.00-0.20); Basophils % (auto) 0.6 %; Eosinophils # (auto) 0.39 K/uL (0.00-0.50); Hematocrit (blood only) 36.6 % (37.0-47.0); Immature Granulocytes # (auto) 0.04 K/uL (0.01-0.20); Immature Granulocytes % (auto) 0.4 %; Lymphocytes # (auto) 2.27 K/uL (1.20-3.40); Mean Corpuscular Hemoglobin 23.4 pg (25.0-34.0); Mean Corpuscular Hgb Conc 30.1 g/dL (32.0-36.0); Mean Corpuscular Volume 77.9 fL (80.0-100.0); Mean Platelet Volume 9.7 fL (9.4-12.4); Monocytes # (auto) 0.63 K/uL (0.11-0.59); Monocytes % (auto) 6.4 %; Neutrophils # (auto) 6.46 K/uL (1.40-6.50); Neutrophils % (auto) 65.6 %; Platelet Count 484 K/uL (130-400); RDW Coefficient of Variation 14.1 % (11.5-14.5); RDW Standard Deviation 39.8 fL (36.4-46.3); White Blood Count 9.85 K/ul (4.8-10.8)
--- NOTE | 2024-03-15 07:02 | Electrocardiogram Report ---
Test Reason : Blood Pressure : */* mmHG Vent. Rate : 72 BPM Atrial Rate : 72 BPM P-R Int : 160 ms QRS Dur : 96 ms QT Int : 450 ms P-R-T Axes : 44 19 53 degrees QTcB Int : 492 ms Normal sinus rhythm Possible Left atrial enlargement Incomplete right bundle branch block Nonspecific ST and T wave abnormality Prolonged QT Abnormal ECG When compared with ECG of 04-Feb-2024 13:31, Minimal criteria for Inferior infarct are no longer Present Confirmed by Leonard Tovar ([id number]) on 03/15/2024 7:02:01 AM Referred By: Confirmed By: Leonard Tovar
[2024-03-15 07:21] LABS: Albumin Level 4.1 gm/dl (3.4-5.0); Anion Gap 7 (3-11); BUN Creatinine Ratio 14.4 (10-20); Blood Urea Nitrogen 14 mg/dl (6-23); Calcium 9.3 mg/dl (8.6-10.3); Chloride 89 mmol/L (98-107); Creatinine Clr Calc Pharmacy 132.9 ml/min; Est GFR (African American) 86.5 ml/min; Est GFR (Non-African American) 74.6 ml/min; Glucose 103 mg/dl (70-99(Fasting)); Magnesium 1.9 mg/dl (1.7-2.4); Phosphorus 4.6 mg/dl (2.5-4.9); Sodium 138 mmol/L (136-145)
[2024-03-15 07:23] LABS: Carbon Dioxide 42 mmol/L (21-32)
[2024-03-15] MEDS: SERTRALINE HCL 100 MG TABLET PO SCH (09:05)
[2024-03-15] MEDS: FLUTICASONE FUROATE 200MCG 14 PUFFS/INHALER INH SCH (09:06)
[2024-03-15] MEDS: ASPIRIN 81 MG ECTAB PO SCH (09:06)
[2024-03-15] MEDS: BUMETANIDE 4 MG in SYRINGE 0 ML IV SCH (09:06)
[2024-03-15] MEDS: CETIRIZINE HCL 10 MG TABLET PO SCH (09:06)
[2024-03-15] MEDS: PANTOprazole 40 MG TAB PO SCH (09:07)
[2024-03-15] MEDS: POTASSIUM CHLORIDE CRTAB 20 MEQ TABCR PO SCH (10:20)
[2024-03-15] MEDS: METHADONE ORAL SOLN 2 MG/ML PO SCH (10:21)
[2024-03-15] MEDS: PATIENT'S OWN CONTROLLED MED 2 SCH (10:21)
[2024-03-15] MEDS: ONDANSETRON INJ 2 MG/ML 2 ML VIAL IV PRN (11:41)
--- NOTE | 2024-03-15 13:58 | Hospitalist Progress Note ---
Date of Service March 15, 2024 Assessment & Plan (1) Acute on chronic respiratory failure with hypoxia: (2) Fluid overload: (3) (HFpEF) heart failure with preserved ejection fraction: (4) S/P mitral valve replacement with bioprosthetic valve: (5) Obstructive sleep apnea: (6) Hypokalemia: (7) Obesity hypoventilation syndrome: (8) Opioid use disorder, severe, in sustained remission: (9) Bipolar disorder: (10) Chronic right arterial ischemic stroke, MCA (middle cerebral artery): (11) History of pulmonary embolism: Plan Pulmonary edema secondary to heart failure with preserved ejection fraction Fluid overload/acute on chronic respiratory failure with hypoxia/HFpEF exacerbation/status post MVR with bioprosthetic valve- The patient will be admitted to telemetry for serial cardiac enzymes, serial EKG's, cardiac rhythm monitoring Most recent echocardiogram on 11/13/2023 with ejection fraction 65-70% Change bumetanide from 4 mg p.o. twice daily to 4 mg IV twice daily and received first dose in the ED Increase spironolactone from 50 mg p.o. every morning to twice daily Continue potassium chloride 40 mEq p.o. twice daily, giving an additional dose this evening. Of note, patient is unable to tolerate potassium given IV For now hold metolazone that she takes every other day Continue aspirin 81 mg every morning, metoprolol tartrate 25 mg p.o. twice daily Monitor I/O, daily weights History of pulmonary embolism- On Eliquis 2.5 mg p.o. twice daily for prophylaxis Obstructive sleep apnea/obesity hypoventilation syndrome/chronic oxygen requirement of 4 L nasal cannula- Target pulse ox 92% CPAP at bedtime as needed Chronic right arterial ischemic stroke/MCA CVA in 2019- Residual left hemiparesis is stable History of opioid use in remission- Continue methadone Admission and Anticipated Discharge Date Admission Date: March 14, 2024 Subjective Patient seen and examined, still has shortness of breath is much improved some pain around her buttock due to the bed. Review of Systems Review of Systems: All systems reviewed are negative, apart from the ones contained in the history. Physical Exam Physical Exam: The patient is awake, alert and oriented 3, morbidly obese HEENT--PERRL, EOMI, mucous membranes and oropharynx mildly dry Neck--supple. No JVD. No bruits. Thyroid normal, trachea midline, no adenopathy. Heart--normal S1 and S2. No murmurs, rubs or gallops. Lungs--clear bilaterally, no respiratory distress, no accessory muscle use. Abdomen--normal bowel sounds and soft. Extremities--no cyanosis or clubbing. No edema. Dermatologic--normal skin turgor, normal color, no abnormal lymph nodes, no rash. Neurologic--cranial nerves II through XII grossly intact. Rheumatologic--normal range of motion. Psychiatric--normal affect. Results & Data Results & Data Vital Signs (Past 12 Hours) Vital Signs Temp Pulse Pulse Resp BP Pulse Ox O2 Del Method 03/15/24 10:53 98.1 F 98 H 18 111/74 92 Nasal Cannula 03/15/24 09:00 84 03/15/24 09:00 Nasal Cannula 03/15/24 07:53 98.6 F 81 18 107/76 96 Nasal Cannula 03/15/24 02:51 98.6 F 78 19 116/70 95 Nasal Cannula O2 Flow Rate 03/15/24 10:53 5 03/15/24 09:00 03/15/24 09:00 5 03/15/24 07:53 5 03/15/24 02:51 5 PG Care Time/CCT Total # of Minutes Spent Total Time Spent with Patient: Total time spent is greater than 50% in coordination of care (as documented) at patient's floor/unit and/or counseling patient: Coding Level of Care Code 85765 SUB INP/OBS CARE 2/35MIN Diagnoses Acute on chronic respiratory failure with hypoxia J96.21 Fluid overload E87.70 Hypervolemia type: unspecified (HFpEF) heart failure with preserved ejection fraction I50.30 S/P mitral valve replacement with bioprosthetic valve Z95.3 Obstructive sleep apnea G47.33 Hypokalemia E87.6 Obesity hypoventilation syndrome E66.2 Opioid use disorder, severe, in sustained remission F11.21 Bipolar disorder F31.9 Chronic right arterial ischemic stroke, MCA (middle cerebral artery) I69.30 History of pulmonary embolism Z86.711 Time Spent (min) 35 (2) Fluid overload Hypervolemia type: unspecified Qualified Code(s): E87.70 - Fluid overload, unspecified
[2024-03-15] MEDS ORDERED: POTASSIUM CHLORIDE CRTAB 20 MEQ TABCR PO ONE (21:00)
[2024-03-16 06:42] LABS: Basophils # (auto) 0.09 K/uL (0.00-0.20); Eosinophils # (auto) 0.41 K/uL (0.00-0.50); Eosinophils % (auto) 4.5 %; Hematocrit (blood only) 38.1 % (37.0-47.0); Immature Granulocytes # (auto) 0.02 K/uL (0.01-0.20); Immature Granulocytes % (auto) 0.2 %; Lymphocytes # (auto) 2.47 K/uL (1.20-3.40); Lymphocytes % (auto) 27.1 %; Mean Corpuscular Hgb Conc 28.9 g/dL (32.0-36.0); Mean Corpuscular Volume 79.5 fL (80.0-100.0); Mean Platelet Volume 9.4 fL (9.4-12.4); Monocytes # (auto) 0.65 K/uL (0.11-0.59); Monocytes % (auto) 7.1 %; Neutrophils # (auto) 5.48 K/uL (1.40-6.50); Neutrophils % (auto) 60.1 %; Platelet Count 500 K/uL (130-400); RDW Coefficient of Variation 14.1 % (11.5-14.5); RDW Standard Deviation 40.5 fL (36.4-46.3); Red Blood Count 4.79 M/uL (4.20-5.40); White Blood Count 9.12 K/ul (4.8-10.8)
[2024-03-16 07:07] LABS: Albumin Level 4.1 gm/dl (3.4-5.0); BUN Creatinine Ratio 15.2 (10-20); Calcium 9.2 mg/dl (8.6-10.3); Creatinine Clr Calc Pharmacy 114.2 ml/min; Est GFR (African American) 72.7 ml/min; Est GFR (Non-African American) 62.7 ml/min; Magnesium 1.9 mg/dl (1.7-2.4); Phosphorus 4.5 mg/dl (2.5-4.9); Potassium 3.2 mmol/L (3.5-5.1)
--- NOTE | 2024-03-16 12:00 | Hospitalist Progress Note ---
Date of Service March 16, 2024 Assessment & Plan (1) Acute on chronic respiratory failure with hypoxia: (2) Fluid overload: (3) (HFpEF) heart failure with preserved ejection fraction: (4) S/P mitral valve replacement with bioprosthetic valve: (5) Obstructive sleep apnea: (6) Hypokalemia: (7) Obesity hypoventilation syndrome: (8) Opioid use disorder, severe, in sustained remission: (9) Bipolar disorder: (10) Chronic right arterial ischemic stroke, MCA (middle cerebral artery): (11) History of pulmonary embolism: Plan Pulmonary edema secondary to heart failure with preserved ejection fraction Fluid overload/acute on chronic respiratory failure with hypoxia/HFpEF exacerbation/status post MVR with bioprosthetic valve- The patient will be admitted to telemetry for serial cardiac enzymes, serial EKG's, cardiac rhythm monitoring Most recent echocardiogram on 11/13/2023 with ejection fraction 65-70% Change bumetanide from 4 mg p.o. twice daily to 4 mg IV twice daily and received first dose in the ED Increase spironolactone from 50 mg p.o. every morning to twice daily Continue potassium chloride 40 mEq p.o. twice daily, giving an additional dose this evening. Of note, patient is unable to tolerate potassium given IV For now hold metolazone that she takes every other day Continue aspirin 81 mg every morning, metoprolol tartrate 25 mg p.o. twice daily Monitor I/O, daily weights History of pulmonary embolism- On Eliquis 2.5 mg p.o. twice daily for prophylaxis Obstructive sleep apnea/obesity hypoventilation syndrome/chronic oxygen requirement of 4 L nasal cannula- Mild hypercapnea Target pulse ox 92% CPAP at bedtime as needed Chronic right arterial ischemic stroke/MCA CVA in 2019- Residual left hemiparesis is stable History of opioid use in remission- Continue methadone Admission and Anticipated Discharge Date Admission Date: March 14, 2024 Subjective Patient seen and examined, still has shortness of breath is much improved Review of Systems Review of Systems: All systems reviewed are negative, apart from the ones contained in the history. Physical Exam Physical Exam: The patient is awake, alert and oriented 3, morbidly obese HEENT--PERRL, EOMI, mucous membranes and oropharynx mildly dry Neck--supple. No JVD. No bruits. Thyroid normal, trachea midline, no adenopathy. Heart--normal S1 and S2. No murmurs, rubs or gallops. Lungs--clear bilaterally, no respiratory distress, no accessory muscle use. Abdomen--normal bowel sounds and soft. Extremities--no cyanosis or clubbing. No edema. Dermatologic--normal skin turgor, normal color, no abnormal lymph nodes, no rash. Neurologic--cranial nerves II through XII grossly intact. Rheumatologic--normal range of motion. Psychiatric--normal affect. Results & Data Results & Data Vital Signs (Past 12 Hours) Vital Signs Temp Pulse Pulse Resp BP Pulse Ox O2 Del Method 03/16/24 11:43 98.2 F 69 18 137/80 97 Nasal Cannula 03/16/24 07:55 98.4 F 70 18 103/71 95 Nasal Cannula 03/16/24 07:47 71 03/16/24 07:47 Nasal Cannula 03/16/24 03:15 98.2 F 67 15 119/80 96 Nasal Cannula 03/16/24 02:15 73 O2 Flow Rate 03/16/24 11:43 5 03/16/24 07:55 5 03/16/24 07:47 03/16/24 07:47 5 03/16/24 03:15 03/16/24 02:15 PG Care Time/CCT Total # of Minutes Spent Total Time Spent with Patient: Total time spent is greater than 50% in coordination of care (as documented) at patient's floor/unit and/or counseling patient: Coding Level of Care Code 39112 SUB INP/OBS CARE 2/35MIN Diagnoses Acute on chronic respiratory failure with hypoxia J96.21 Fluid overload E87.70 Hypervolemia type: unspecified (HFpEF) heart failure with preserved ejection fraction I50.30 S/P mitral valve replacement with bioprosthetic valve Z95.3 Obstructive sleep apnea G47.33 Hypokalemia E87.6 Obesity hypoventilation syndrome E66.2 Opioid use disorder, severe, in sustained remission F11.21 Bipolar disorder F31.9 Chronic right arterial ischemic stroke, MCA (middle cerebral artery) I69.30 History of pulmonary embolism Z86.711 Time Spent (min) 35 (2) Fluid overload Hypervolemia type: unspecified Qualified Code(s): E87.70 - Fluid overload, unspecified
[2024-03-16] MEDS: POTASSIUM CHLORIDE CRTAB 20 MEQ TABCR PO STA (14:04)
[2024-03-16] MEDS: ACETAMINOPHEN 325 MG TAB PO PRN (19:59)
[2024-03-17 06:43] LABS: Basophils # (auto) 0.07 K/uL (0.00-0.20); Basophils % (auto) 0.7 %; Eosinophils % (auto) 4.1 %; Hematocrit (blood only) 36.8 % (37.0-47.0); Hemoglobin 10.6 g/dl (12.0-16.0); Immature Granulocytes # (auto) 0.03 K/uL (0.01-0.20); Immature Granulocytes % (auto) 0.3 %; Lymphocytes # (auto) 2.47 K/uL (1.20-3.40); Lymphocytes % (auto) 25.1 %; Mean Corpuscular Hgb Conc 28.8 g/dL (32.0-36.0); Mean Corpuscular Volume 79.8 fL (80.0-100.0); Mean Platelet Volume 9.7 fL (9.4-12.4); Monocytes # (auto) 0.74 K/uL (0.11-0.59); Monocytes % (auto) 7.5 %; Neutrophils # (auto) 6.12 K/uL (1.40-6.50); Neutrophils % (auto) 62.3 %; Platelet Count 496 K/uL (130-400); RDW Standard Deviation 40.7 fL (36.4-46.3); Red Blood Count 4.61 M/uL (4.20-5.40); White Blood Count 9.83 K/ul (4.8-10.8)
[2024-03-17 07:12] LABS: Albumin Level 4.2 gm/dl (3.4-5.0); BUN Creatinine Ratio 14.9 (10-20); Calcium 9.3 mg/dl (8.6-10.3); Creatinine Clr Calc Pharmacy 105.7 ml/min; Est GFR (African American) 66.2 ml/min; Est GFR (Non-African American) 57.1 ml/min; Magnesium 1.7 mg/dl (1.7-2.4); Phosphorus 3.4 mg/dl (2.5-4.9); Potassium 2.9 mmol/L (3.5-5.1)
[2024-03-17] MEDS: POTASSIUM CHLORIDE CRTAB 20 MEQ TABCR PO STA (10:08)
--- NOTE | 2024-03-17 12:32 | Hospitalist Progress Note ---
Date of Service March 17, 2024 Assessment & Plan (1) Acute on chronic respiratory failure with hypoxia: (2) Fluid overload: (3) (HFpEF) heart failure with preserved ejection fraction: (4) S/P mitral valve replacement with bioprosthetic valve: (5) Obstructive sleep apnea: (6) Hypokalemia: (7) Obesity hypoventilation syndrome: (8) Opioid use disorder, severe, in sustained remission: (9) Bipolar disorder: (10) Chronic right arterial ischemic stroke, MCA (middle cerebral artery): (11) History of pulmonary embolism: Plan Pulmonary edema secondary to heart failure with preserved ejection fraction Fluid overload/acute on chronic respiratory failure with hypoxia/HFpEF exacerbation/status post MVR with bioprosthetic valve- The patient will be admitted to telemetry for serial cardiac enzymes, serial EKG's, cardiac rhythm monitoring Most recent echocardiogram on 11/13/2023 with ejection fraction 65-70% Change bumetanide from 4 mg p.o. twice daily to 4 mg IV twice daily and received first dose in the ED Increase spironolactone from 50 mg p.o. every morning to twice daily Continue potassium chloride 40 mEq p.o. twice daily, giving an additional dose this evening. Of note, patient is unable to tolerate potassium given IV For now hold metolazone that she takes every other day Continue aspirin 81 mg every morning, metoprolol tartrate 25 mg p.o. 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 twice daily for prophylaxis Obstructive sleep apnea/obesity hypoventilation syndrome/chronic oxygen requirement of 4 L nasal cannula- Mild hypercapnea Target pulse ox 92% CPAP at bedtime as needed Chronic right arterial ischemic stroke/MCA CVA in 2019- Residual left hemiparesis is stable History of opioid use in remission- Continue methadone Hopefully d/c her tomorrow Admission and Anticipated Discharge Date Admission Date: March 14, 2024 Subjective Patient seen and examined, still has shortness of breath is much improved Review of Systems Review of Systems: All systems reviewed are negative, apart from the ones contained in the history. Physical Exam Physical Exam: The patient is awake, alert and oriented 3, morbidly obese HEENT--PERRL, EOMI, mucous membranes and oropharynx mildly dry Neck--supple. No JVD. No bruits. Thyroid normal, trachea midline, no adenopathy. Heart--normal S1 and S2. No murmurs, rubs or gallops. Lungs--clear bilaterally, no respiratory distress, no accessory muscle use. Abdomen--normal bowel sounds and soft. Extremities--no cyanosis or clubbing. No edema. Dermatologic--normal skin turgor, normal color, no abnormal lymph nodes, no rash. Neurologic--cranial nerves II through XII grossly intact. Rheumatologic--normal range of motion. Psychiatric--normal affect. Results & Data Results & Data Vital Signs (Past 12 Hours) Vital Signs Temp Pulse Pulse Resp BP Pulse Ox O2 Del Method 03/17/24 11:47 97.7 F 70 18 104/67 96 Nasal Cannula 03/17/24 11:16 Nasal Cannula 03/17/24 08:13 71 03/17/24 08:10 97.9 F 69 16 92/56 L 97 Nasal Cannula 03/17/24 02:50 97.5 F L 72 18 104/72 96 Nasal Cannula O2 Flow Rate 03/17/24 11:47 03/17/24 11:16 5 03/17/24 08:13 03/17/24 08:10 5 03/17/24 02:50 5 PG Care Time/CCT Total # of Minutes Spent Total Time Spent with Patient: Total time spent is greater than 50% in coordination of care (as documented) at patient's floor/unit and/or counseling patient: Coding Level of Care Code 48706 SUB INP/OBS CARE 2/35MIN Diagnoses Acute on chronic respiratory failure with hypoxia J96.21 Fluid overload E87.70 Hypervolemia type: unspecified (HFpEF) heart failure with preserved ejection fraction I50.30 S/P mitral valve replacement with bioprosthetic valve Z95.3 Obstructive sleep apnea G47.33 Hypokalemia E87.6 Obesity hypoventilation syndrome E66.2 Opioid use disorder, severe, in sustained remission F11.21 Bipolar disorder F31.9 Chronic right arterial ischemic stroke, MCA (middle cerebral artery) I69.30 History of pulmonary embolism Z86.711 Time Spent (min) 35 (2) Fluid overload Hypervolemia type: unspecified Qualified Code(s): E87.70 - Fluid overload, unspecified
[2024-03-18] MEDS: BACLOFEN 10 MG TAB PO PRN (08:40)
[2024-03-18 08:49] LABS: BUN Creatinine Ratio 17.1 (10-20); Calcium 9.4 mg/dl (8.6-10.3); Creatinine Clr Calc Pharmacy 119.5 ml/min; Est GFR (African American) 78.6 ml/min; Est GFR (Non-African American) 67.8 ml/min; Potassium 3.7 mmol/L (3.5-5.1)
--- NOTE | 2024-03-18 12:27 | Discharge Summary ---
Date of Service March 18, 2024 Admission HPI Per Admitting Provider The patient presents to the emergency department due to worsening lower extremity edema, shortness of breath, dyspnea on exertion, concerns regarding fluid overload, and reports that she becomes pale and sweaty. with minimal exertion, requiring up to 5 L of oxygen during the daytime. She reports that she is producing smaller volumes of urine than usual, despite taking her usual dose of diuretics. Admission Exam (Per Admitting) Constitutional The patient is awake, alert and oriented 3, well developed and well nourished, normocephalic and atraumatic, lying in bed and in no acute distress. HEENT--PERRL, EOMI, mucous membranes and oropharynx mildly dry Neck--supple. No JVD. No bruits. Thyroid normal, trachea midline, no adenopathy. Heart--normal S1 and S2. No murmurs, rubs or gallops. Lungs--clear bilaterally, no respiratory distress, no accessory muscle use. Abdomen--normal bowel sounds and soft. Extremities--no cyanosis or clubbing. leg edema Dermatologic--normal skin turgor, normal color, no abnormal lymph nodes, no rash. Neurologic--cranial nerves II through XII grossly intact. Rheumatologic--normal range of motion. Psychiatric--normal affect. Discharge Data Consultations 03/14/24 20:37 ED Decision to Admit Stat Hospital Course (1) Acute on chronic respiratory failure with hypoxia: (2) Fluid overload: (3) (HFpEF) heart failure with preserved ejection fraction: (4) S/P mitral valve replacement with bioprosthetic valve: (5) Obstructive sleep apnea: (6) Hypokalemia: (7) Obesity hypoventilation syndrome: (8) Opioid use disorder, severe, in sustained remission: (9) Bipolar disorder: (10) Chronic right arterial ischemic stroke, MCA (middle cerebral artery): (11) History of pulmonary embolism: Plan Pulmonary edema secondary to heart failure with preserved ejection fraction Fluid overload/acute on chronic respiratory failure with hypoxia/HFpEF exacerbation/status post MVR with bioprosthetic valve- The patient will be admitted to telemetry for serial cardiac enzymes, serial EKG's, cardiac rhythm monitoring Most recent echocardiogram on 11/13/2023 with ejection fraction 65-70% Change bumetanide from 4 mg p.o. twice daily to 4 mg IV twice daily and received first dose in the ED Increase spironolactone from 50 mg p.o. every morning to twice daily Continue potassium chloride 40 mEq p.o. twice daily, giving an additional dose this evening. Of note, patient is unable to tolerate potassium given IV For now hold metolazone that she takes every other day Continue aspirin 81 mg every morning, metoprolol tartrate 25 mg p.o. 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 twice daily for prophylaxis Obstructive sleep apnea/obesity hypoventilation syndrome/chronic oxygen requirement of 4 L nasal cannula- Mild hypercapnea Target pulse ox 92% CPAP at bedtime as needed Chronic right arterial ischemic stroke/MCA CVA in 2019- Residual left hemiparesis is stable History of opioid use in remission- Continue methadone Hopefully d/c her today after her 5pm dose of bumex Coding Level of Care Code 45732 INP/OBS DISCH >30 MIN Diagnoses Acute on chronic respiratory failure with hypoxia J96.21 Fluid overload E87.70 Hypervolemia type: unspecified (HFpEF) heart failure with preserved ejection fraction I50.30 S/P mitral valve replacement with bioprosthetic valve Z95.3 Obstructive sleep apnea G47.33 Hypokalemia E87.6 Obesity hypoventilation syndrome E66.2 Opioid use disorder, severe, in sustained remission F11.21 Bipolar disorder F31.9 Chronic right arterial ischemic stroke, MCA (middle cerebral artery) I69.30 History of pulmonary embolism Z86.711 Time Spent (min) 35
[2024-03-18 15:48] VITALS: BP 108/70; RESP 20; TEMP 98.2; O2SAT 94
[2024-03-18 17:14] VITALS: PULSE 82
== END 2024-03-18 17:52 | disposition home or self-care (01) | DRG 189 ==
LOC: ED 14:56 → SUATTDRO 20:21 → 2S 20:21

== ENCOUNTER 2024-03-19 19:23 | Inpatient (IN) ==
[2024-03-20] MEDS ORDERED: MAGNESIUM HYDROXIDE SUSP 30 ML UDC PO PRN (10:45)
--- NOTE | 2024-03-20 11:07 | History & Physical Report ---
Date of Service March 20, 2024 Assessment & Plan (1) Acute respiratory failure with hypoxia: Plan: Acute hypoxic respiratory failure Suspect due to acute on chronic HFpEF managed as noted Patient has had an increased cough does not know if this has had color change as she does not look at it but has had increased sputum production. Chest x-ray ordered. Covered empirically with Rocephin/Doxy (2) (HFpEF) heart failure with preserved ejection fraction: Plan: Acute on chronic heart failure preserved ejection fraction -Last echo 10/2019 465-70% Spironolactone continued Continue KCl supplementation while diuresing Metolazone held Continue aspirin daily Continue metoprolol daily Low-sodium diet Strict ins and outs, Monique in place BNP was elevated at [facility], this is normal here and lungs are diminished but grossly clear some crackles in the bases. Has had some orthopnea, JVD difficult to appreciate due to habitus will continue with diuretic IV twice daily. (3) Obesity hypoventilation syndrome: Plan: Obesity hypoventilation syndrome, CARINA BiPAP at bedtime Patient has had recurrent respiratory failure with hypercapnia. Review of [facility] labs show admission with elevated serum bicarb. She has not been able to tolerate a sleep study in the past Due to BMI of 59.9 w/ OHS + CARINA coupled with recurrent respiratory failure and evidence of hypercapnia on prior labs patient should be prescribed BiPAP to be used every night. She does use home oxygen which was recently prescribed has a history of CHF; however this is not adequate to address eventually life- threatening hypercapnia. She will need to be discharged with BiPAP (4) Chronic right arterial ischemic stroke, MCA (middle cerebral artery): Plan: Chronic right arterial ischemia, MCA CVA 2019 With residual left hemiparesis No new deficits (5) History of pulmonary embolism: Plan: History of PE Continue Eliquis twice daily. Reports she was recommended for dose reduction after her PE and is on 2.5mg BID, ?risk fo failure due to BMI. Review w/ coag prio to dc (6) Morbid obesity: Plan: BMI 59.9 on admission (7) Major depressive disorder, recurrent episode, moderate with anxious distress: Plan: Continue sertraline (8) UTI (urinary tract infection): Plan: Patient endorses dysuria of several days. Infected appearing urine. UCx pending. Rocephin ordered. Follow cultures Plan Chronic stable issues Opiate abuse in remission: Continue methadone Hypothyroidism: Continue Synthroid DVT prophylaxis: Anticoagulated Diet: Heart healthy, low-sodium CODE STATUS: Full code Disposition: Downgraded to PCU Admission and Anticipated Discharge Date Admission Date: March 20, 2024 History of Present Illness Primary Care Provider: Stacey Arce MD Neelima is a 38-year-old female with a past medical history of heart failure preserved ejection fraction, obesity hypoventilation syndrome, CARINA, opioid use disorder in remission, bipolar, chronic right arterial ischemia/MCA CVA, history of PE, and recent hospital admission with discharge 03/18/2024 for acute on chronic respiratory failure due to acute heart failure preserved ejection fraction exacerbation who presents from [facility] as a transfer for ICU availability. Patient was reportedly on 100% FiO2 BiPAP maintaining saturations in the low 90s at that time was requested for transfer for ICU services. Michelle seen at the bedside on arrival to the ICU. She reports that she was very weak and shaky, shortly after returning home in the ICU she continued to develop shortness of breath. She also reports she had burning with urination which started after her Monique was removed. She had an episode in the morning where she became confused and reportedly poorly responsive in the morning. She reports since returning home she has also had a cough productive for thick sputum, she does not know what color and she does not look at it. She is on home oxygen at night, has been diagnosed with OHS/CARINA but has not had a BiPAP as she has not been able to tolerate a sleep study. Feels she continues to be more short of breath than normal which does worsen with laying flat, has had some increased leg swelling. She endorses feeling feverish with some chills. No chest pain or chest pressure. No nausea/vomiting. No pain at time of assessment. She reports she did no get/take any oral medications this morning/day of admission. Critical meds including methadone/BB/eliquis ordered as one time dose, and continued daily. Medical History: Reviewed Medications: Reviewed Surgical History: Reviewed Family history: Reviewed Allergies: Reviewed Social History: Reviewed Code Status: Full Allergies Allergy/AdvReac Type Severity Reaction Status Date / Time sulfamethoxazole Allergy Severe Anaphylaxis Verified 02/02/24 11:51 [From Bactrim] trimethoprim [From Bactrim] Allergy Severe Anaphylaxis Verified 02/02/24 11:51 atorvastatin AdvReac Intermediate Muscle Pain Verified 02/02/24 11:51 Home Medications Medication Instructions Recorded Confirmed Type Wheelchair (Manual) #1 ea 03/25/22 03/14/24 Rx Wheelchair (Manual) (Manual #1 ea 04/18/22 03/14/24 Rx Wheelchair) aspirin 81 mg chewable tablet 81 mg PO QAM 12/16/22 03/20/24 History melatonin 3 mg tablet 3 mg PO HS 12/16/22 03/20/24 History methadone 10 mg tablet 72 mg PO QAM 12/16/22 03/20/24 History multivitamin with minerals 1 tab PO QAM 12/16/22 03/14/24 History epinephrine 0.3 mg/0.3 mL 0.3 mg (0.3 mL) IM .COMPLEX PRN 12/26/22 03/20/24 Rx injection, auto-injector anaphylaxis #2 ea acetaminophen 650 mg 650 mg PO Q8H PRN fever or pain #1 02/24/23 03/20/24 Rx tablet,extended release (Tylenol 8 tab Hour) diclofenac sodium 1 % topical gel 4 g EXT QID PRN right knee pain OR 02/24/23 03/20/24 Rx (Voltaren Arthritis Pain) back pain #1 tube polyethylene glycol 3350 17 gram 17 g PO DAILY PRN Constipation 05/01/23 03/20/24 History oral powder packet (Miralax) Powered Wheelchair #1 ea 05/27/23 03/14/24 Rx apixaban 2.5 mg tablet 2.5 mg PO BID #60 tabs 09/09/23 03/20/24 Rx baclofen 10 mg tablet 10 mg PO BID PRN muscle 09/19/23 03/20/24 Rx stiffness/spasm #60 tabs trazodone 50 mg tablet 50 mg PO HS #30 tabs 09/19/23 03/20/24 Rx magnesium oxide 400 mg (241.3 mg 400 mg PO HS 09/24/23 03/20/24 History magnesium) tablet metoprolol tartrate 50 mg tablet 25 mg (1/2 x 50 mg) PO BID #30 tabs 10/10/23 03/20/24 Rx ketoconazole 2 % topical cream 1 applic topical BID PRN NEEDED 11/12/23 03/20/24 History bumetanide 2 mg tablet 4 mg (2 x 2 mg) PO BID #120 tabs 12/15/23 03/20/24 Rx Wheelchair (Powered) (Power #1 ea 12/22/23 03/14/24 Rx Wheelchair) spironolactone 25 mg tablet 50 mg (2 x 25 mg) PO QAM #60 tabs 12/22/23 03/20/24 Rx lubiprostone 24 mcg capsule 24 mcg PO BID #60 caps 12/23/23 03/20/24 Rx (Amitiza) potassium chloride 20 mEq 40 meq (2 x 20 mEq) PO BID #120 01/19/24 03/20/24 Rx tablet,extended release tabs Oxygen Home #1 ea 01/26/24 03/14/24 Rx Portable Oxygen #1 ea 01/26/24 03/14/24 Rx sertraline 100 mg tablet 200 mg (2 x 100 mg) PO QAM #180 02/02/24 03/20/24 Rx tabs levothyroxine 75 mcg tablet 75 mcg PO DAILYBB #90 tabs 02/11/24 03/20/24 Rx cetirizine 10 mg tablet 10 mg PO DAILY #90 tabs 02/13/24 03/20/24 Rx famotidine 40 mg tablet 40 mg PO PM #90 tabs 02/13/24 03/20/24 Rx metolazone 2.5 mg tablet See Rx Instructions .Route 02/16/24 03/20/24 Rx .COMPLEX #30 tabs clonazepam 0.5 mg tablet 0.5 mg PO HS #30 tabs 03/01/24 03/20/24 Rx pantoprazole 40 mg tablet,delayed 40 mg PO QAM #90 tabs 03/01/24 03/20/24 Rx release Hospital Bed Homecare (Hospital 03/14/24 03/14/24 History Bed) Lift Chair 03/14/24 03/14/24 History Shower Chair #1 ea 03/18/24 Rx diaper,brief,adult,disposable #100 ea 03/18/24 Rx disposable gloves #50 ea 03/18/24 Rx gabapentin 600 mg tablet 600 mg PO TID #90 tabs 03/19/24 Rx Past Med/Surg History Problem List (Updated 03/20/24 @ 14:10 by Kostas Patel MD) UTI (urinary tract infection) Acute respiratory failure with hypoxia History of pulmonary embolism Opioid use disorder, severe, in sustained remission on maintenance therapy Methadone Hypokalemia (Acute) Pedal edema (Acute) Fluid overload (Acute) CHF (congestive heart failure) (Acute) SOB (shortness of breath) (Acute) Chronic constipation Acute on chronic respiratory failure with hypoxia Hypokalemia (Acute) S/P mitral valve replacement with bioprosthetic valve (Acute 06/2022) Physical deconditioning Right knee DJD Knee arthropathy Leg swelling (Acute) Primary hypothyroidism Sleep apnea (Acute) Left spastic hemiparesis Hepatitis C Anxiety Anemia (Acute) (HFpEF) heart failure with preserved ejection fraction Nocturnal hypoxemia Obstructive sleep apnea Obesity hypoventilation syndrome Bipolar disorder Constipation due to pain medication Chronic right arterial ischemic stroke, MCA (middle cerebral artery) Ambulatory dysfunction Seborrheic dermatitis Urinary retention with incomplete bladder emptying Drug abuse in remission Facial droop due to old stroke Homonymous hemianopsia due to recent cerebrovascular accident (Acute) Dysphagia Medical History GERD (gastroesophageal reflux disease) Chronic respiratory failure with hypoxia Tobacco dependence Morbid obesity Right knee pain Cirrhosis Fatty liver ANTWAN (acute kidney injury) Back pain Hypothyroidism Snoring Iron deficiency B12 deficiency Thalassemia Edema, peripheral Splenic abscess Splenomegaly Hypoxia Opioid use disorder, severe, in sustained remission on maintenance therapy Methadone MENDEZ (generalized anxiety disorder) Major depressive disorder, recurrent episode, moderate with anxious distress Left-sided weakness History of embolic stroke Rt MCA History of stroke Drug abuse and dependence Endocarditis PCOS (polycystic ovarian syndrome) Surgical History H/O mitral valve replacement History of repair of ACL History of section History of tubal ligation Family History Grandmother (Paternal) Breast cancer Grandfather (Maternal) Myocardial infarction Graves disease Grandfather (Paternal) Myocardial infarction Other Thalassemia Denies family history of Colon cancer Ovarian cancer Prostate cancer Social History Smoking Status: Current every day smoker Tobacco Type: E-cigarettes / Vaping packs per day: 1; Cigarettes Per Day: 1 pack/day; Second Hand Exposure: No; Do You Dip or Chew Tobacco: No; Hx Alcohol Use: No Hx Substance Use: No (FORMER ABUSE) Preferred Language: Romansh Communication Ability: Effective Visual Impairment: No Limitations Hearing Ability: Normal Water Meter Mechanic Required: No Beliefs That Will Affect Care: None marital status: Single Current Living Situation: Family Current Living Situation Comment: lives with mom and children 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 NAD. Cooperative. Obese HEENT: Atraumatic, normocephalic. Vision and hearing grossly intact Pulm: Diminished in the bases, no wheezing symmetrical chest rise. No increased work of breathing. No respiratory distress. Cardiac: RRR, -mrg. Radial pulses intact and symmetrical. JVD difficult to assess due to habitus Abdominal: Nontender, nondistended, soft. BS present. Extremities: Soft tissue swelling, scant pitting edema of the ankles PG Care Time/CCT Total # of Minutes Spent Total Time Spent with Patient: Total time spent is greater than 50% in coordination of care (as documented) at patient's floor/unit and/or counseling patient: Coding Level of Care Code 92693 INT INP/OBS CARE 3/75MIN Diagnoses Acute respiratory failure with hypoxia J96.01 (HFpEF) heart failure with preserved ejection fraction I50.30 Obesity hypoventilation syndrome E66.2 Chronic right arterial ischemic stroke, MCA (middle cerebral artery) I69.30 History of pulmonary embolism Z86.711 Morbid obesity E66.01 Major depressive disorder, recurrent episode, moderate with anxious distress F33.1 UTI (urinary tract infection) N39.0
[2024-03-20] MEDS ORDERED: BACLOFEN 10 MG TAB PO PRN (11:36)
--- NOTE | 2024-03-20 11:51 | Critical Care Consultation ---
Date of Consultation March 20, 2024 Assessment & Plan (1) SOB (shortness of breath): (2) CHF (congestive heart failure): (3) Acute on chronic respiratory failure with hypoxia: (4) Physical deconditioning: (5) Ambulatory dysfunction: Plan 38-year-old female with a past medical history of morbid obesity, OHS, CARINA, bipolar disorder, drug abuse, mitral valve dysfunction status post replacement and diastolic heart failure who is presenting as a direct admission from [facility] for an acute diastolic heart failure exacerbation and possible pneumonia. Will obtain sputum cultures, CBC, BMP, respiratory bio fire panel and BNP. Will tailor treatment based on lab values and clinical picture. She does not appear to be in any overt distress and is on low-flow oxygen at this time. She has had recurrent hospitalizations due to hypercapnia and hypoxemia. She would be an excellent candidate for noninvasive ventilation at home. Due to chronic hypercapnic respiratory failure consequent to OHS, the patient now requires a noninvasive home ventilator. Bilevel therapy with and without a rate would be ineffective as patient requires a volume targeted mode. Ventilation is required to decrease work of breathing and improve pulmonary status. Interruption of ventilator support would lead to decline of health status. NIMV settings should be AVAPS-AE; Breath rate: auto; Inspiratory time: auto; Sigh: off; Tidal Volume: 500], PS min: [8-15 PS max: 10-20]; EPAP min: 8]; EPAP max: [16]; AVAPS rate: [16 during sleep and as needed] Patient does not require ICU care at this time and she is stable for downgrade out of the ICU. Discussed with hospitalist service. ICU service to sign off. Pulmonary will continue to follow. History of Present Illness Reason for Consultation: Hypoxic and hypercapnic respiratory failure Attending Physician: Kostas Patel MD History of Present Illness Patient's history is notable for diastolic heart failure, OHS, drug abuse, mitral valve replacement status post bioprosthetic valve, anxiety, bipolar disorder and morbid obesity who is presenting as a direct transfer from an outside hospital due to acute shortness of breath and hypoxemia. She was actually discharged from the hospital on the for similar findings including diastolic heart failure. Patient notes that she has had an increased cough over the past 2 to 3 days with sputum production. No obvious fevers. She notices chronic shortness of breath with minimal exertion. She is essentially bedbound. She does have paroxysmal nocturnal dyspnea, but this is her baseline. She does feel more short of breath than usual. She denies any chest pain. She is on low-flow supplemental oxygen and saturating well. At present, she is hemodynamically stable. Allergies Allergy/AdvReac Type Severity Reaction Status Date / Time sulfamethoxazole Allergy Severe Anaphylaxis Verified 02/02/24 11:51 [From Bactrim] trimethoprim [From Bactrim] Allergy Severe Anaphylaxis Verified 02/02/24 11:51 atorvastatin AdvReac Intermediate Muscle Pain Verified 02/02/24 11:51 Home Medications Medication Instructions Recorded Confirmed Type Wheelchair (Manual) #1 ea 03/25/22 03/14/24 Rx Wheelchair (Manual) (Manual #1 ea 04/18/22 03/14/24 Rx Wheelchair) aspirin 81 mg chewable tablet 81 mg PO QAM 12/16/22 03/20/24 History melatonin 3 mg tablet 3 mg PO HS 12/16/22 03/20/24 History methadone 10 mg tablet 72 mg PO QAM 12/16/22 03/20/24 History multivitamin with minerals 1 tab PO QAM 12/16/22 03/14/24 History epinephrine 0.3 mg/0.3 mL 0.3 mg (0.3 mL) IM .COMPLEX PRN 12/26/22 03/20/24 Rx injection, auto-injector anaphylaxis #2 ea acetaminophen 650 mg 650 mg PO Q8H PRN fever or pain #1 02/24/23 03/20/24 Rx tablet,extended release (Tylenol 8 tab Hour) diclofenac sodium 1 % topical gel 4 g EXT QID PRN right knee pain OR 02/24/23 03/20/24 Rx (Voltaren Arthritis Pain) back pain #1 tube polyethylene glycol 3350 17 gram 17 g PO DAILY PRN Constipation 05/01/23 03/20/24 History oral powder packet (Miralax) Powered Wheelchair #1 ea 05/27/23 03/14/24 Rx apixaban 2.5 mg tablet 2.5 mg PO BID #60 tabs 09/09/23 03/20/24 Rx baclofen 10 mg tablet 10 mg PO BID PRN muscle 09/19/23 03/20/24 Rx stiffness/spasm #60 tabs trazodone 50 mg tablet 50 mg PO HS #30 tabs 09/19/23 03/20/24 Rx magnesium oxide 400 mg (241.3 mg 400 mg PO HS 09/24/23 03/20/24 History magnesium) tablet metoprolol tartrate 50 mg tablet 25 mg (1/2 x 50 mg) PO BID #30 tabs 10/10/23 03/20/24 Rx ketoconazole 2 % topical cream 1 applic topical BID PRN NEEDED 11/12/23 03/20/24 History bumetanide 2 mg tablet 4 mg (2 x 2 mg) PO BID #120 tabs 12/15/23 03/20/24 Rx Wheelchair (Powered) (Power #1 ea 12/22/23 03/14/24 Rx Wheelchair) spironolactone 25 mg tablet 50 mg (2 x 25 mg) PO QAM #60 tabs 12/22/23 03/20/24 Rx lubiprostone 24 mcg capsule 24 mcg PO BID #60 caps 12/23/23 03/20/24 Rx (Amitiza) potassium chloride 20 mEq 40 meq (2 x 20 mEq) PO BID #120 01/19/24 03/20/24 Rx tablet,extended release tabs Oxygen Home #1 ea 01/26/24 03/14/24 Rx Portable Oxygen #1 ea 01/26/24 03/14/24 Rx sertraline 100 mg tablet 200 mg (2 x 100 mg) PO QAM #180 02/02/24 03/20/24 Rx tabs levothyroxine 75 mcg tablet 75 mcg PO DAILYBB #90 tabs 02/11/24 03/20/24 Rx cetirizine 10 mg tablet 10 mg PO DAILY #90 tabs 02/13/24 03/20/24 Rx famotidine 40 mg tablet 40 mg PO PM #90 tabs 02/13/24 03/20/24 Rx metolazone 2.5 mg tablet See Rx Instructions .Route 02/16/24 03/20/24 Rx .COMPLEX #30 tabs clonazepam 0.5 mg tablet 0.5 mg PO HS #30 tabs 03/01/24 03/20/24 Rx pantoprazole 40 mg tablet,delayed 40 mg PO QAM #90 tabs 03/01/24 03/20/24 Rx release Hospital Bed Homecare (Hospital 03/14/24 03/14/24 History Bed) Lift Chair 03/14/24 03/14/24 History Shower Chair #1 ea 03/18/24 Rx diaper,brief,adult,disposable #100 ea 03/18/24 Rx disposable gloves #50 ea 03/18/24 Rx gabapentin 600 mg tablet 600 mg PO TID #90 tabs 03/19/24 Rx Patient History Medical History GERD (gastroesophageal reflux disease) Chronic respiratory failure with hypoxia Tobacco dependence Morbid obesity Right knee pain Cirrhosis Fatty liver ANTWAN (acute kidney injury) Back pain Hypothyroidism Snoring Iron deficiency B12 deficiency Thalassemia Edema, peripheral Splenic abscess Splenomegaly Hypoxia Opioid use disorder, severe, in sustained remission on maintenance therapy Methadone MENDEZ (generalized anxiety disorder) Major depressive disorder, recurrent episode, moderate with anxious distress Left-sided weakness History of embolic stroke Rt MCA History of stroke Drug abuse and dependence Endocarditis PCOS (polycystic ovarian syndrome) Surgical History H/O mitral valve replacement History of repair of ACL History of section History of tubal ligation Family History Grandmother (Paternal) Breast cancer Grandfather (Maternal) Myocardial infarction Graves disease Grandfather (Paternal) Myocardial infarction Other Thalassemia Denies family history of Colon cancer Ovarian cancer Prostate cancer Social History Smoking Status: Current every day smoker Tobacco Type: E-cigarettes / Vaping packs per day: 1; Cigarettes Per Day: 1 pack/day; Second Hand Exposure: No; Do You Dip or Chew Tobacco: No; Hx Alcohol Use: No Hx Substance Use: No (FORMER ABUSE) Preferred Language: Azeri Communication Ability: Effective Visual Impairment: No Limitations Hearing Ability: Normal Racquet Maker Required: No Beliefs That Will Affect Care: None marital status: Single Current Living Situation: Family Current Living Situation Comment: lives with mom and children 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 Other Information That Helps Us Care for You: No Feels Safe at Home: Yes Safety Concerns: Feels Safe At This Time Childhood Exposure to Second-Hand Smoke: No Diet: regular Diet Comment: regular Dental Care, Regularly: No Physical Activity Frequency: Does not Exercise Seatbelt Use: sometimes Sunscreen Use: No Assistive Devices: Denture - Upper, Hospital Bed, Lift Chair, Oxygen - Continuous, Scooter/Electric Scooter and Wheelchair Review of Systems Review of Systems: All systems reviewed & are unremarkable except as noted in HPI & below Physical Exam Physical Exam: Constitutional: Patient appears to be of their stated age. Patient is in no apparent distress. Patient is well-developed. Eyes: Pupils are equal round and reactive to light. Conjunctivae are normal. Anicteric sclera. Ears nose, mouth and throat: Mallampati class 3. Normal posterior oropharynx. Uvula is midline. Neck: Trachea is midline. Visual inspection is normal. Respiratory: Diminished bilaterally with mild crackles. No wheezes. Cardiovascular: Regular rate and rhythm. No murmurs. No edema. Gastrointestinal: Normal bowel sounds, soft, nontender and nondistended. No hepatosplenomegaly noted. Musculoskeletal: No cyanosis. Patient is able to move all extremities. Strength is 5 out of 5 in the upper and lower extremities. Skin: No rashes, warm dry and intact. Neurologic: No obvious focal neurological deficits seen. Psychiatric: Alert and oriented x3 with a euthymic affect. Results & Data Results & Data Vital Signs (Past 12 Hours) Vital Signs Temp Pulse Resp BP Pulse Ox O2 Del Method O2 Flow Rate 03/20/24 11:00 37.7 C H 96 H 25 H 122/70 92 Nasal Cannula 5 Coding Level of Care Code 30767 IN/OBS CONSULT LVL 4,60M Diagnoses SOB (shortness of breath) R06.02 CHF (congestive heart failure) I50.9 Heart failure chronicity: acute Heart failure type: unspecified Acute on chronic respiratory failure with hypoxia J96.21 Physical deconditioning R53.81 Ambulatory dysfunction R26.2 (2) CHF (congestive heart failure) Heart failure chronicity: acute Heart failure type: unspecified Qualified Code(s): I50.9 - Heart failure, unspecified
[2024-03-20] MEDS ORDERED: METHADONE HCL 5 MG TAB PO STA (11:57)
[2024-03-20 12:20] LABS: Appearance Urine Cloudy (Clear); Bacteria Urine Automated None Seen (None Seen); Bilirubin Urine 1+ (Negative); Blood Urine 2+ (Negative); Cast Urine Automated 0-2 /lpf (0-2); Color Urine Dark Yellow; Glucose Urine UA Negative (Negative); Ketones Urine Trace (Negative); Leukocyte Esterase Urine 1+ (Negative); Nitrite Urine Positive (Negative); Protein Urine 1+ (Negative); RBC Urine Automated >20 /hpf (0-2); Specific Gravity Urine 1.026 (1.000-1.030); Urobilinogen Urine Positive (Negative)
[2024-03-20 12:27] LABS: Bilirubin,Total 0.6 mg/dl (0.2-1.0); Magnesium 1.6 mg/dl (1.7-2.4); Potassium 3.3 mmol/L (3.5-5.1)
[2024-03-20 12:33] LABS: Albumin Globulin Ratio 0.9 (0.9-2); BUN Creatinine Ratio 17.9 (10-20); Creatinine Clr Calc Pharmacy 165.9 ml/min; Est GFR (African American) 112.6 ml/min; Est GFR (Non-African American) 97.1 ml/min; Globulin 4.6 gm/dl (2.5-4.0); Total Protein 8.6 gm/dl (6.0-8.3)
[2024-03-20] MEDS: METHADONE ORAL SOLN 2 MG/ML PO ONE (12:43)
[2024-03-20] MEDS: APIXABAN 2.5 MG TAB PO SCH (12:44)
[2024-03-20] MEDS: SERTRALINE HCL 100 MG TABLET PO SCH (12:44)
[2024-03-20] MEDS: METOPROLOL TARTRATE 25 MG TAB PO SCH (12:44)
[2024-03-20] MEDS: PATIENT'S OWN CONTROLLED MED 1 PO SCH (12:44)
[2024-03-20 12:54] LABS: Adenovirus PCR Not Detected (NotDetected); Bordetella parapertussis PCR Not Detected (NotDetected); Bordetella pertussis PCR Not Detected (NotDetected); Chlamydia pneumoniae PCR Not Detected (NotDetected); Coronavirus 229E PCR Not Detected (NotDetected); Coronavirus CoV-2 (COVID19)PCR Not Detected (NotDetected); Coronavirus HKU1 PCR Not Detected (NotDetected); Coronavirus NL63 PCR Not Detected (NotDetected); Coronavirus OC43PCR Not Detected (NotDetected); Human Metapneumovirus PCR Not Detected (NotDetected); Influenza A PCR Not Detected (NotDetected); Influenza B PCR Not Detected (NotDetected); Mycoplasma pneumoniae PCR Not Detected (NotDetected); Parainfluenza Virus 1 PCR Not Detected (NotDetected); Parainfluenza Virus 2 PCR Not Detected (NotDetected); Parainfluenza Virus 3 PCR Not Detected (NotDetected); Parainfluenza Virus 4 PCR Not Detected (NotDetected); Respiratory Syncytial VirusPCR Not Detected (NotDetected); Rhinovirus/Enterovirus PCR Not Detected (NotDetected)
--- NOTE | 2024-03-20 12:55 | Electrocardiogram Report ---
Test Reason : Blood Pressure : */* mmHG Vent. Rate : 88 BPM Atrial Rate : 88 BPM P-R Int : 146 ms QRS Dur : 94 ms QT Int : 392 ms P-R-T Axes : 48 31 36 degrees QTcB Int : 474 ms Normal sinus rhythm Possible Inferior infarct , age undetermined Abnormal ECG When compared with ECG of 14-Mar-2024 15:10, Incomplete right bundle branch block is no longer Present Borderline criteria for Inferior infarct are now Present Confirmed by Beth Shelton (Jennifer) on 03/20/2024 12:55:18 PM Referred By: JENNIFER PENG Confirmed By: Beth Shelton
[2024-03-20 12:59] LABS: Troponin I High Sensitivity 4.6 pg/ml (0-14)
[2024-03-20] MEDS: MAGNESIUM SULFATE / D5W 1 GM/100 ML BAG IV ONE (13:15)
[2024-03-20] MEDS: POTASSIUM CHLORIDE CRTAB 20 MEQ TABCR PO STA (13:43)
[2024-03-20] MEDS: DOXYCYCLINE HYCLATE 100 MG in DEXTROSE 5% MINI-B 100 ML IV SCH (13:46)
[2024-03-20] MEDS: BUMETANIDE 2 MG in SYRINGE 0 ML IV ONE (13:46)
[2024-03-20] MEDS: cefTRIAXone SODIUM 2,000 MG/50 ML BAG IV SCH (13:46)
--- NOTE | 2024-03-20 14:09 | XRay Report ---
Michelle Salcido SINGLE VIEW CHEST CLINICAL HISTORY: Dyspnea FINDINGS: An AP, portable, upright chest radiograph is compared to study dated 03/14/2024. The examina tion is degraded by portable technique and apical lordotic positioning. The patient is status post mi dline sternotomy. The heart is enlarged. There is pulmonary vascular congestion with mild interstitia l edema. Atelectasis is noted at the lung bases. No large pleural effusion or pneumothorax is seen. T he skeletal structures are osteopenic. The bony thorax is grossly intact. IMPRESSION: Cardiomegaly with evidence of congestive failure and mild interstitial edema. ACT 112: Negative or not required by law. Electronically signed by: Gaudencio Phillips M.D. 03/20/2024 11:36 AM
[2024-03-20] MEDS: MAGNESIUM SULFATE / D5W 1 GM/100 ML BAG IV SCH (16:31)
[2024-03-20] MEDS ORDERED: METOPROLOL TARTRATE 25 MG TAB PO SCH (21:00)
[2024-03-20] MEDS ORDERED: APIXABAN 5 MG TABLET PO SCH (21:00)
[2024-03-20] MEDS: MELATONIN 3 MG TAB PO SCH (21:25)
[2024-03-20] MEDS: clonazePAM 0.5 MG TAB PO SCH (21:26)
[2024-03-20] MEDS: FAMOTIDINE 40 MG TABLET PO SCH (21:26)
[2024-03-20] MEDS: POTASSIUM CHLORIDE CRTAB 20 MEQ TABCR PO SCH (21:26)
[2024-03-20] MEDS: traZODone HCL 50 MG TAB PO SCH (21:26)
[2024-03-20] MEDS: LUBIPROSTONE 8 MCG CAP PO SCH (21:27)
[2024-03-20] MEDS: MAGNESIUM OXIDE 400 MG TAB PO SCH (21:28)
[2024-03-21] MEDS: LEVOTHYROXINE SODIUM 75 MCG TABLET PO SCH (06:00)
[2024-03-21] MEDS: ASPIRIN 81 MG CHEW PO SCH (08:14)
[2024-03-21] MEDS: BUMETANIDE 4 MG in SYRINGE 0 ML IV SCH (08:14)
[2024-03-21] MEDS: CETIRIZINE HCL 10 MG TABLET PO SCH (08:16)
[2024-03-21] MEDS: PANTOprazole 40 MG TAB PO SCH (08:17)
[2024-03-21] MEDS: SPIRONOLACTONE 25 MG TAB PO SCH (08:17)
[2024-03-21] MEDS: PATIENT'S OWN CONTROLLED MED 1 PO SCH (08:21)
[2024-03-21] MEDS: METHADONE ORAL SOLN 2 MG/ML PO SCH (08:21)
[2024-03-21] MEDS ORDERED: METHADONE ORAL SOLN 2 MG/ML PO SCH (09:00)
[2024-03-21] MEDS ORDERED: SERTRALINE HCL 100 MG TABLET PO SCH (09:00)
[2024-03-21] MEDS: ONDANSETRON INJ 2 MG/ML 2 ML VIAL IV PRN (11:47)
--- NOTE | 2024-03-21 13:22 | Hospitalist Progress Note ---
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 U/a was suggestive of UTI as well. Abx for #1 will cover the urinary tract. (3) Acute respiratory failure with hypoxia: Plan: 2nd to acute/chronic HFpEF 2nd to RLL pneumonia Diuresing Abx Supportive care NC O2 (4) Nausea and vomiting: Plan: Likely multifactorial - presumed UTI, pneumonia, etc. CT a/p without findings of acute cholecystitis CT a/p shows the splenic abnormality from several years ago but the size of the splenic abnormality continues to get smaller thus this is unlikely to be the source of her symptoms Cont PPI Cont H2 jyoti anti-emetics (5) Gallstones: Plan: known gallstones, but CT a/p does not show acute cholecystitis findings if she fails to improve or worsens from a GI standpoint I would have a low threshold for additional gall bladder imaging (6) Splenic abscess: Plan: history of such - 2021 initially had splenic infarct in the setting of endocarditis required drainage of this area at that time 2022 - hospitalized [facility] for such - did not require drainage, just IV abx size of the splenic abnormality on imaging today shows gradual reduction in size over the last 2 years (7) Acute metabolic encephalopathy: Plan: 2nd to #1, #2 - improved (8) (HFpEF) heart failure with preserved ejection fraction: Plan: Acute on chronic heart failure preserved ejection fraction last echo - 10/2023 - normal EF currently on bumex 2mg IV BID along with aldactone metolazone is on hold due to #1, #2 and low-normal BPs place bumex on hold after the afternoon dose, recheck BMP am for stability, and resume bumex then if able (9) Obesity hypoventilation syndrome: Plan: Obesity hypoventilation syndrome, CARINA needs BIPAP at HS she is only using NC O2 at bedtime prior to this admission (10) Chronic right arterial ischemic stroke, MCA (middle cerebral artery): Plan: Right sided MCA territory CVA 2019 07 to septic emboli from endocarditis Resulting left-sided hemiplegia On Eliquis 2.5mg BID for secondary prevention (11) History of pulmonary embolism: Plan: cont Eliquis 2.5mg BID for prevention purposes (12) Morbid obesity: Plan: BMI ~60 (13) Major depressive disorder, recurrent episode, moderate with anxious distress: Plan: Continue sertraline (14) Opioid use disorder, severe, in sustained remission: Plan: continue methadone 72mg/day (15) Hypokalemia: Plan: replace repeat BMP am Plan Hypothyroidism: Continue Synthroid; TSH today is wnl DVT prophylaxis: Eliquis 2.5mg BID pt's 2 daughters updated at bedside pt's mother Itzel updated by phone ([phone]) will ultimately need PT/OT Admission and Anticipated Discharge Date Admission Date: March 20, 2024 Subjective patient reports very poor appetite for at least 1 week or longer did not eat any breakfast or lunch today she feels very weak has had persistent nausea and episodes of vomiting "I felt terrible at home after I got out of the hospital" [on 03/18/24 - recent hospital stay for volume overload] no abdominal pain but has been bloated has been struggling with constipation but finally did have a large BM in the last 24 hours she reports dysuria and bladder pain for the last several days 2 daughters are at bedside and were updated discussed obtaining CT a/p due to prior h/o splenic abscess as well as previous CT showing gallstones denies post-prandial abd pain in the last few weeks-months Review of Systems Review of Systems: gen - very tired, fatigued, hot/cold at times cv - no chest pain pulm - dyspnea, cough GI - no blood per rectum Physical Exam Physical Exam: gen - looks sick, obese, awake, alert, answering questions mouth - MM look slightly pasty neck - due to neck size unable to assess for JVD heart - RRR, s1 s2, no obvious murmur lungs - very difficult to perform exam because of body habitus but BS are decreased in both bases, occasional crackle both bases, no wheeze, no increased work of breathing abd - mildly distended, slight tenderness upper abdomen, BS+, no peritoneal signs ext - severe lymphedema b/l extending to thighs; pulses b/l feet 2+ neuro - left sided hemiplegia Results & Data Results & Data Vital Signs (Past 12 Hours) Vital Signs Temp Pulse Pulse Resp BP Pulse Ox O2 Del Method 03/21/24 11:52 37.2 C 81 18 99/61 L 95 Nasal Cannula 03/21/24 08:14 84 16 102/64 94 Nasal Cannula 03/21/24 08:00 Nasal Cannula 03/21/24 07:42 84 03/21/24 03:57 37.1 C 74 20 96/66 L 93 Room Air O2 Flow Rate 03/21/24 11:52 4.0 03/21/24 08:14 4 03/21/24 08:00 4 03/21/24 07:42 03/21/24 03:57 5 Laboratory Results Laboratory Results - last 24 hr 03/21/24 12:56 WBC 13.80 H RBC 4.46 Hgb 10.4 L Hct 34.4 L MCV 77.1 L MCH 23.3 L MCHC 30.2 L RDW Std Deviation 40.9 RDW Coeff of Alexia 14.7 H Plt Count 439 H MPV 10.0 Immature Gran % (Auto) 0.8 Neut % (Auto) 85.7 Lymph % (Auto) 7.3 [place] % (Auto) 4.6 Eos % (Auto) 1.2 Baso % (Auto) 0.4 Neut # (Auto) 11.82 H Lymph # (Auto) 1.01 L [place] # (Auto) 0.64 H Eos # (Auto) 0.17 Baso # (Auto) 0.05 Immature Gran # (Auto) 0.11 Absolute Nucleated RBC 0.02 Nucleated RBC % (auto) 0.1 Sodium 134 L Potassium 3.1 L Chloride 88 L Carbon Dioxide 36 H Anion Gap 10 BUN 11 Creatinine 0.73 Est Cr Clr Drug Dosing 181.7 Est GFR ( Amer) 121.9 Est GFR (Non-Af Amer) 105.2 BUN/Creatinine Ratio 15.1 Glucose 148 H Calcium 9.1 Magnesium 2.1 TSH 1.440 Diagnostic Findings Abdomen/Pelvis CT 03/21/24 13:17 CT SCAN OF THE ABDOMEN AND PELVIS WITH IV CONTRAST CLINICAL HISTORY: Nausea and vomiting. Fever. Anorexia. COMPARISON STUDY: Prior abdominal CT scans, most recently dated 02/04/2024. TECHNIQUE: Following the IV administration of 120 cc of Optiray 320, CT scan of the abdomen and pelvis is performed from the lung bases to the proximal femora. Images are reviewed in the axial, sagittal, and coronal planes. IV contrast was administered without complication. A dose lowering technique was utilized adhering to the principles of ALARA. The examination is degraded by large body habitus, and by streak artifact from the body wall abutting the CT gantry. CT DOSE: 2146.29 mGy.cm FINDINGS: Lung bases: The patient is status post midline sternotomy and mitral valve surgery. The heart is mildly enlarged and without pericardial effusion. Chronic scarring/atelectasis is seen at both lung bases with superimposed airspace consolidation throughout the right lower lobe. No pleural effusion is identified. Liver: The contrast-enhanced liver is enlarged, measuring 26.2 cm in length. Attenuation is diffusely diminished consistent with severe steatosis. Fatty sparing is seen adjacent to the gallbladder fossa. There is no intrahepatic biliary ductal dilatation. The hepatic veins and portal veins are patent. Gallbladder: Unremarkable. Spleen: The spleen is enlarged measuring 15.8 cm in length. An approximately 6 cm low-attenuation splenic lesion/collection is similar in appearance to 02/04/2024. This is increased in size as compared to older prior studies. Pancreas: Unremarkable. Adrenal glands: Unremarkable. Kidneys: The contrast enhanced kidneys are normal in size and without hydronephrosis. The kidneys enhance symmetrically. Abdominal vasculature: The abdominal aorta is normal in course and caliber. Bowel: There is moderate constipation. No bowel obstruction is seen. The appendix is well-visualized and normal. Peritoneum: There is no intraperitoneal free air or abdominal ascites. There is a fat-containing umbilical hernia. Lymphadenopathy: None. Pelvic viscera: The bladder is largely decompressed around a Monique catheter and appears thick-walled with surrounding inflammation. Intraluminal gas is nonspecific and may be related to instrumentation. The uterus and adnexa are normal as visualized. Skeletal structures: No lytic or blastic lesions are seen. Sclerotic change is seen in the sacroiliac joints. IMPRESSION: 1. Chronic parenchymal change is seen at both lung bases with superimposed airspace consolidation throughout the right lower lobe. This is new from 02/04/2024 and suggests pneumonia/aspiration pneumonitis. Clinical correlation will be required and radiographic follow-up to resolution is recommended. 2. Cardiomegaly. 3. The liver is markedly enlarged with evidence of severe steatosis. 4. The spleen is enlarged. A low-attenuation splenic lesion/collection has been present dating back to at least 2022 and has somewhat decreased in size from that time. 5. Moderate constipation. 6. The bladder is decompressed and a Monique catheter, and the wall appears thickened with surrounding inflammation. Correlate with clinical findings and urinalysis for evidence of cystitis. 7. Additional findings as above. ACT 112: Negative or not required by law. Electronically signed by: Gaudencio Phillips M.D. 03/21/2024 4:45 PM PG Care Time/CCT Total # of Minutes Spent Total Time Spent with Patient: Total time spent is greater than 50% in coordination of care (as documented) at patient's floor/unit and/or counseling patient: Coding Level of Care Code 62691 SUB INP/OBS CARE 3/50MIN Diagnoses RLL pneumonia J18.9 UTI (urinary tract infection) N39.0 Acute respiratory failure with hypoxia J96.01 Nausea and vomiting R11.2 Gallstones K80.20 Splenic abscess D73.3 Acute metabolic encephalopathy G93.41 (HFpEF) heart failure with preserved ejection fraction I50.30 Obesity hypoventilation syndrome E66.2 Chronic right arterial ischemic stroke, MCA (middle cerebral artery) I69.30 History of pulmonary embolism Z86.711 Morbid obesity E66.01 Major depressive disorder, recurrent episode, moderate with anxious distress F33.1 Opioid use disorder, severe, in sustained remission F11.21 Hypokalemia E87.6
[2024-03-21 13:30] LABS: Basophils # (auto) 0.05 K/uL (0.00-0.20); Basophils % (auto) 0.4 %; Eosinophils # (auto) 0.17 K/uL (0.00-0.50); Eosinophils % (auto) 1.2 %; Hematocrit (blood only) 34.4 % (37.0-47.0); Hemoglobin 10.4 g/dl (12.0-16.0); Immature Granulocytes # (auto) 0.11 K/uL (0.01-0.20); Immature Granulocytes % (auto) 0.8 %; Lymphocytes # (auto) 1.01 K/uL (1.20-3.40); Lymphocytes % (auto) 7.3 %; Mean Corpuscular Hemoglobin 23.3 pg (25.0-34.0); Mean Corpuscular Hgb Conc 30.2 g/dL (32.0-36.0); Mean Corpuscular Volume 77.1 fL (80.0-100.0); Monocytes # (auto) 0.64 K/uL (0.11-0.59); Monocytes % (auto) 4.6 %; Neutrophils # (auto) 11.82 K/uL (1.40-6.50); Neutrophils % (auto) 85.7 %; Nucleated RBC # (auto) 0.02 K/uL (0.00-0.12); Nucleated RBC % (auto) 0.1 %; Platelet Count 439 K/uL (130-400); RDW Coefficient of Variation 14.7 % (11.5-14.5); RDW Standard Deviation 40.9 fL (36.4-46.3); Red Blood Count 4.46 M/uL (4.20-5.40)
[2024-03-21 13:44] LABS: BUN Creatinine Ratio 15.1 (10-20); Calcium 9.1 mg/dl (8.6-10.3); Creatinine Clr Calc Pharmacy 181.7 ml/min; Est GFR (African American) 121.9 ml/min; Est GFR (Non-African American) 105.2 ml/min; Magnesium 2.1 mg/dl (1.7-2.4); Potassium 3.1 mmol/L (3.5-5.1)
[2024-03-21 13:57] LABS: Thyroid Stimulating Hormone 1.44 uIu/ml (0.300-4.500)
[2024-03-21] MEDS: OPTIRAY 320 125ml IV ONE (16:20)
--- NOTE | 2024-03-21 16:47 | CT Scan Report ---
CT SCAN OF THE ABDOMEN AND PELVIS WITH IV CONTRAST CLINICAL HISTORY: Nausea and vomiting. Fever. Anorexia. COMPARISON STUDY: Prior abdominal CT scans, most recently dated 02/04/2024. TECHNIQUE: Following the IV administration of 120 cc of Optiray 320, CT scan of the abdomen and pelv is is performed from the lung bases to the proximal femora. Images are reviewed in the axial, sagitta l, and coronal planes. IV contrast was administered without complication. A dose lowering technique w as utilized adhering to the principles of ALARA. The examination is degraded by large body habitus, a nd by streak artifact from the body wall abutting the CT gantry. CT DOSE: 2146.29 mGy.cm FINDINGS: Lung bases: The patient is status post midline sternotomy and mitral valve surgery. The heart is mild ly enlarged and without pericardial effusion. Chronic scarring/atelectasis is seen at both lung bases with superimposed airspace consolidation throughout the right lower lobe. No pleural effusion is marge ntified. Liver: The contrast-enhanced liver is enlarged, measuring 26.2 cm in length. Attenuation is diffusely diminished consistent with severe steatosis. Fatty sparing is seen adjacent to the gallbladder fossa . There is no intrahepatic biliary ductal dilatation. The hepatic veins and portal veins are patent. Gallbladder: Unremarkable. Spleen: The spleen is enlarged measuring 15.8 cm in length. An approximately 6 cm low-attenuation spl enic lesion/collection is similar in appearance to 02/04/2024. This is increased in size as compared t o older prior studies. Pancreas: Unremarkable. Adrenal glands: Unremarkable. Kidneys: The contrast enhanced kidneys are normal in size and without hydronephrosis. The kidneys enh ance symmetrically. Abdominal vasculature: The abdominal aorta is normal in course and caliber. Bowel: There is moderate constipation. No bowel obstruction is seen. The appendix is well-visualized and normal. Peritoneum: There is no intraperitoneal free air or abdominal ascites. There is a fat-containing umbi lical hernia. Lymphadenopathy: None. Pelvic viscera: The bladder is largely decompressed around a Monique catheter and appears thick-walled with surrounding inflammation. Intraluminal gas is nonspecific and may be related to instrumentation. The uterus and adnexa are normal as visualized. Skeletal structures: No lytic or blastic lesions are seen. Sclerotic change is seen in the sacroiliac joints. IMPRESSION: 1. Chronic parenchymal change is seen at both lung bases with superimposed airspace consolidation thr oughout the right lower lobe. This is new from 02/04/2024 and suggests pneumonia/aspiration pneumoniti s. Clinical correlation will be required and radiographic follow-up to resolution is recommended. 2. Cardiomegaly. 3. The liver is markedly enlarged with evidence of severe steatosis. 4. The spleen is enlarged. A low-attenuation splenic lesion/collection has been present dating back t o at least 2022 and has somewhat decreased in size from that time. 5. Moderate constipation. 6. The bladder is decompressed and a Monique catheter, and the wall appears thickened with surrounding inflammation. Correlate with clinical findings and urinalysis for evidence of cystitis. 7. Additional findings as above. ACT 112: Negative or not required by law. Electronically signed by: Gaudencio Phillips M.D. 03/21/2024 4:45 PM
[2024-03-21] MEDS: POTASSIUM CHLORIDE CRTAB 20 MEQ TABCR PO STA (16:53)
[2024-03-21] MEDS: 4.5GM X1 IV STA (17:39)
[2024-03-21] MEDS ORDERED: VANCOMYCIN CONSULT ACTIVE PRN ×2 (17:43→18:45)
[2024-03-21] MEDS: VANCOMYCIN HCL 2,750 MG in SODIUM CHLORIDE 0.9% 500 ML IV ONE (19:24)
--- NOTE | 2024-03-21 20:49 | Pharmacy Report ---
Pharmacy Vanc AUC Short Note - Date of Service March 21, 2024 - Assessment & Plan Assessment 38 year old F receiving [] for treatment of []. Pertinent microbiologic data includes: [Positive MRSA Nasal Swab] [+] culture growing []. Day # []/[] of antimicrobial therapy. Plan Vancomycin * Load 2750 mg 03/21/2024@1930 * maintenance 1500 mg q12h 03/22/2024 @0600 * AUC/SHEREE is the preferred PK/PD target for vancomycin * AUC guided dosing is effective and associated with decreased risk of nephrotoxicity compared to traditional trough targets * Trough level of [] mcg/mL is predicted to achieve target AUC/SHEREE of 400-600 mg/L.hr and may be associated with a [] % risk of nephrotoxicity * Continue dose of [] mg IV every [] hours OR Change to [] mg IV every [] hours * Trough or random level ordered for: []/[]/[] Pharmacy will continue to follow and will adjust dose/frequency as necessary. Thank you.
[2024-03-21] MEDS: PIPERACILLIN/TAZOBACTAM 4.5 GM/100 ML BAG IV SCH (22:35)
[2024-03-22] MEDS: VANCOMYCIN HCL 1,500 MG in SODIUM CHLORIDE 0.9% 500 ML IV SCH (06:11)
[2024-03-22 11:14] LABS: Basophils # (auto) 0.05 K/uL (0.00-0.20); Basophils % (auto) 0.5 %; Eosinophils # (auto) 0.36 K/uL (0.00-0.50); Eosinophils % (auto) 3.6 %; Hematocrit (blood only) 35.6 % (37.0-47.0); Hemoglobin 10.3 g/dl (12.0-16.0); Immature Granulocytes # (auto) 0.07 K/uL (0.01-0.20); Immature Granulocytes % (auto) 0.7 %; Lymphocytes # (auto) 1.08 K/uL (1.20-3.40); Lymphocytes % (auto) 10.8 %; Mean Corpuscular Hemoglobin 23.2 pg (25.0-34.0); Mean Corpuscular Hgb Conc 28.9 g/dL (32.0-36.0); Mean Corpuscular Volume 80.2 fL (80.0-100.0); Mean Platelet Volume 9.8 fL (9.4-12.4); Monocytes # (auto) 0.63 K/uL (0.11-0.59); Monocytes % (auto) 6.3 %; Neutrophils # (auto) 7.85 K/uL (1.40-6.50); Neutrophils % (auto) 78.1 %; Platelet Count 427 K/uL (130-400); RDW Coefficient of Variation 14.7 % (11.5-14.5); RDW Standard Deviation 42.9 fL (36.4-46.3); Red Blood Count 4.44 M/uL (4.20-5.40); White Blood Count 10.04 K/ul (4.8-10.8)
[2024-03-22 11:28] LABS: BUN Creatinine Ratio 15.2 (10-20); Calcium 9.1 mg/dl (8.6-10.3); Creatinine Clr Calc Pharmacy 167.8 ml/min; Est GFR (African American) 110.8 ml/min; Est GFR (Non-African American) 95.6 ml/min; Potassium 3.3 mmol/L (3.5-5.1)
--- NOTE | 2024-03-22 13:34 | Pulmonary Consultation ---
Date of Consultation March 22, 2024 Assessment & Plan (1) SOB (shortness of breath): (2) CHF (congestive heart failure): Heart failure chronicity: acute Heart failure type: unspecified Qualified Code(s): I50.9 - Heart failure, unspecified (3) Acute on chronic respiratory failure with hypoxia: (4) Acute and chronic respiratory failure with hypercapnia: Plan 38-year-old female with a past medical history of morbid obesity, OHS, CARINA, bipolar disorder, drug abuse, mitral valve dysfunction status post replacement and diastolic heart failure who is presenting as a direct admission from [facility] for an acute diastolic heart failure exacerbation and possible pneumonia. 2D echo 10/24/2023: EF 65 and 70%, concentric LVH, RV not well-visualized ABG 03/22/2024: 7.46/51/88 on 3 L -- Acute on chronic hypercapnic hypoxic respiratory failure Multifactorial Hypercapnia is most likely from underlying CARINA/OHS Hypoxia is probably from HFpEF as well as dependent atelectasis with VQ mismatch Procalcitonin negative Respiratory BioFire negative for everything Nasal MRSA positive BNP 77 -- Morbid obesity BMI 62 Advised lose weight diet and exercise --History of CARINA/OHS -- History of drug abuse S/p MVR Plan: Follow spirometry as well as ABG Put the patient on BiPAP 10/6, 40% and if tolerated increase it to 12/8 Follow sputum culture Given the procalcitonin being negative, patient already got antibiotic vancomycin for 3 days I think it is reasonable to de-escalate to only doxycycline and Zosyn Case was discussed with primary team at bedside Please note the above document was generated using voice recognition software. It may contain grammatical, syntax or spelling errors.Any formal questions or concerns about the content, text or information contained within the body of this dictation should be directly addressed to the provider for clarification. 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 Taylor was also in the room. Patient was saturating 94-95% on 4 L nasal cannula, I went down to 2 L. She denied any chest pain, no headache, no nausea or vomiting Afebrile in the last couple of hours. Better she has been complaining of some difficulty swallowing lately. No unusual headache or blurry vision. Social history: Approximately [id number] smoking history, did briefly vaping to help quit smoking Allergies Allergy/AdvReac Type Severity Reaction Status Date / Time sulfamethoxazole Allergy Severe Anaphylaxis Verified 02/02/24 11:51 [From Bactrim] trimethoprim [From Bactrim] Allergy Severe Anaphylaxis Verified 02/02/24 11:51 atorvastatin AdvReac Intermediate Muscle Pain Verified 02/02/24 11:51 Home Medications Medication Instructions Recorded Confirmed Type Wheelchair (Manual) #1 ea 03/25/22 03/14/24 Rx Wheelchair (Manual) (Manual #1 ea 04/18/22 03/14/24 Rx Wheelchair) aspirin 81 mg chewable tablet 81 mg PO QAM 12/16/22 03/20/24 History melatonin 3 mg tablet 3 mg PO HS 12/16/22 03/20/24 History methadone 10 mg tablet 72 mg PO QAM 12/16/22 03/20/24 History multivitamin with minerals 1 tab PO QAM 12/16/22 03/14/24 History epinephrine 0.3 mg/0.3 mL 0.3 mg (0.3 mL) IM .COMPLEX PRN 12/26/22 03/20/24 Rx injection, auto-injector anaphylaxis #2 ea acetaminophen 650 mg 650 mg PO Q8H PRN fever or pain #1 02/24/23 03/20/24 Rx tablet,extended release (Tylenol 8 tab Hour) diclofenac sodium 1 % topical gel 4 g EXT QID PRN right knee pain OR 02/24/23 03/20/24 Rx (Voltaren Arthritis Pain) back pain #1 tube polyethylene glycol 3350 17 gram 17 g PO DAILY PRN Constipation 05/01/23 03/20/24 History oral powder packet (Miralax) Powered Wheelchair #1 ea 05/27/23 03/14/24 Rx apixaban 2.5 mg tablet 2.5 mg PO BID #60 tabs 09/09/23 03/20/24 Rx baclofen 10 mg tablet 10 mg PO BID PRN muscle 09/19/23 03/20/24 Rx stiffness/spasm #60 tabs trazodone 50 mg tablet 50 mg PO HS #30 tabs 09/19/23 03/20/24 Rx magnesium oxide 400 mg (241.3 mg 400 mg PO HS 09/24/23 03/20/24 History magnesium) tablet metoprolol tartrate 50 mg tablet 25 mg (1/2 x 50 mg) PO BID #30 tabs 10/10/23 03/20/24 Rx ketoconazole 2 % topical cream 1 applic topical BID PRN NEEDED 11/12/23 03/20/24 History bumetanide 2 mg tablet 4 mg (2 x 2 mg) PO BID #120 tabs 12/15/23 03/20/24 Rx Wheelchair (Powered) (Power #1 ea 12/22/23 03/14/24 Rx Wheelchair) spironolactone 25 mg tablet 50 mg (2 x 25 mg) PO QAM #60 tabs 12/22/23 03/20/24 Rx lubiprostone 24 mcg capsule 24 mcg PO BID #60 caps 12/23/23 03/20/24 Rx (Amitiza) potassium chloride 20 mEq 40 meq (2 x 20 mEq) PO BID #120 01/19/24 03/20/24 Rx tablet,extended release tabs Oxygen Home #1 ea 01/26/24 03/14/24 Rx Portable Oxygen #1 ea 01/26/24 03/14/24 Rx sertraline 100 mg tablet 200 mg (2 x 100 mg) PO QAM #180 02/02/24 03/20/24 Rx tabs levothyroxine 75 mcg tablet 75 mcg PO DAILYBB #90 tabs 02/11/24 03/20/24 Rx cetirizine 10 mg tablet 10 mg PO DAILY #90 tabs 02/13/24 03/20/24 Rx famotidine 40 mg tablet 40 mg PO PM #90 tabs 02/13/24 03/20/24 Rx metolazone 2.5 mg tablet See Rx Instructions .Route 02/16/24 03/20/24 Rx .COMPLEX #30 tabs clonazepam 0.5 mg tablet 0.5 mg PO HS #30 tabs 03/01/24 03/20/24 Rx pantoprazole 40 mg tablet,delayed 40 mg PO QAM #90 tabs 03/01/24 03/20/24 Rx release Hospital Bed Homecare (Hospital 03/14/24 03/14/24 History Bed) Lift Chair 03/14/24 03/14/24 History Shower Chair #1 ea 03/18/24 Rx diaper,brief,adult,disposable #100 ea 03/18/24 Rx disposable gloves #50 ea 03/18/24 Rx gabapentin 600 mg tablet 600 mg PO TID #90 tabs 03/19/24 Rx Patient History Medical History GERD (gastroesophageal reflux disease) Chronic respiratory failure with hypoxia Tobacco dependence Morbid obesity Right knee pain Cirrhosis Fatty liver ANTWAN (acute kidney injury) Back pain Hypothyroidism Snoring Iron deficiency B12 deficiency Thalassemia Edema, peripheral Splenic abscess Splenomegaly Hypoxia Opioid use disorder, severe, in sustained remission on maintenance therapy Methadone MENDEZ (generalized anxiety disorder) Major depressive disorder, recurrent episode, moderate with anxious distress Left-sided weakness History of embolic stroke Rt MCA History of stroke Drug abuse and dependence Endocarditis PCOS (polycystic ovarian syndrome) Surgical History H/O mitral valve replacement History of repair of ACL History of section History of tubal ligation Family History Grandmother (Paternal) Breast cancer Grandfather (Maternal) Myocardial infarction Graves disease Grandfather (Paternal) Myocardial infarction Other Thalassemia Denies family history of Colon cancer Ovarian cancer Prostate cancer Social History Smoking Status: Current every day smoker Tobacco Type: E-cigarettes / Vaping packs per day: 1; Cigarettes Per Day: 1 pack/day; Second Hand Exposure: No; Do You Dip or Chew Tobacco: No; Hx Alcohol Use: No Hx Substance Use: No (FORMER ABUSE) Preferred Language: Georgian Communication Ability: Effective Visual Impairment: No Limitations Hearing Ability: Normal Sat Instructor Required: No Beliefs That Will Affect Care: None marital status: Single Current Living Situation: Family Current Living Situation Comment: lives with mom and children 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 Feels Safe at Home: Yes Childhood Exposure to Second-Hand Smoke: No Diet: regular Diet Comment: regular Dental Care, Regularly: No Physical Activity Frequency: Does not Exercise Seatbelt Use: sometimes Sunscreen Use: No Assistive Devices: Oxygen - Continuous and Wheelchair Review of Systems 2 Review of Systems: All systems reviewed & are unremarkable except as noted in HPI & below Physical Exam 2 Physical Exam: Constitutional: No acute distress HEENT: EOMI, PERRLA Respiratory system: Decreased air entry bilaterally, no wheeze, no rhonchi, positive crackles bilateral lower lobes CVS: S1-S2 positive, no murmurs or gallops Abdomen: Soft, nontender, nondistended, positive bowel sounds x4, obese Extremities: +2 pulses bilaterally radialis/ dorsalis pedis, no cyanosis, no edema Neuro: Awake alert oriented x3 Psych: Normal mood and affect G/U: Positive hroowitz Skin: no rashes, warm and dry Lymphatic: no cervical or axillary lymphadenopathy Results & Data Results & Data Vital Signs (Past 12 Hours) Vital Signs Temp Pulse Pulse Resp BP Pulse Ox O2 Del Method 03/22/24 12:55 37.0 C 71 18 112/75 93 Nasal Cannula 03/22/24 08:35 Nasal Cannula 03/22/24 07:41 81 03/22/24 07:37 36.7 C 74 18 104/67 92 Nasal Cannula 03/22/24 02:57 36.9 C 74 18 96/64 L 92 Room Air O2 Flow Rate 03/22/24 12:55 3 03/22/24 08:35 4 03/22/24 07:41 03/22/24 07:37 4 03/22/24 02:57 Laboratory Results 03/22/24 10:55 03/22/24 10:55 PG Care Time/CCT Total # of Minutes Spent Total Time Spent with Patient: Total time spent is greater than 50% in coordination of care (as documented) at patient's floor/unit and/or counseling patient: Coding Level of Care Code 22224 INT INP/OBS CARE MIN Diagnoses SOB (shortness of breath) R06.02 CHF (congestive heart failure) I50.9 Heart failure chronicity: acute Heart failure type: unspecified Acute on chronic respiratory failure with hypoxia J96.21 Acute and chronic respiratory failure with hypercapnia J96.22
[2024-03-22 15:09] LABS: HCO3 ABG 36 mmol/L (19-24); Oxygen Saturation ABG 98.6 % (90-95); PCO2 ABG 51 mmHg (35-46); PO2 ABG 88 mmHg (80-95); pH ABG 7.46 (7.35-7.45)
[2024-03-22 15:14] LABS: Allen Test Pos (Pos)
--- NOTE | 2024-03-22 15:57 | Hospitalist Progress Note ---
Date of Service March 22, 2024 Assessment & Plan (1) RLL pneumonia: Plan: CT a/p shows evidence of RLL pneumonia In light of recent hospitalization just 1 week ago and numerous comorbidities need to cover for gram negative pathogens as well as MRSA as MRSA RN LACTATION CONSULTANT swab is positive Cont zosyn IV - day #2 of such Cont vanco IV for MRSA coverage - day #2 of such Remains on doxy IV for atypical coverage - day #3 Vanco is less than ideal for MRSA coverage in light of morbid obesity, but unable to use Zyvox due to high-dose zoloft Cont NC O2 and supportive care (2) UTI (urinary tract infection): Plan: Although urine cx was negative, CT a/p shows an inflamed bladder, and she had dysuria for several days prior to admission. U/a was suggestive of UTI as well. Abx for #1 will cover the urinary tract. (3) Acute respiratory failure with hypoxia: Plan: 2nd to acute/chronic HFpEF 2nd to RLL pneumonia Diuresing Abx Supportive care NC O2 (4) Nausea and vomiting: Plan: Likely multifactorial - presumed UTI, pneumonia, etc. GI symptoms IMPROVED CT a/p without findings of acute cholecystitis CT a/p shows the splenic abnormality from several years ago but the size of the splenic abnormality continues to get smaller thus this is unlikely to be the source of her symptoms Cont PPI Cont H2 jyoti anti-emetics (5) Gallstones: Plan: known gallstones, but CT a/p does not show acute cholecystitis findings if she fails to improve or worsens from a GI standpoint I would have a low threshold for additional gall bladder imaging (6) Splenic abscess: Plan: history of such - 2021 initially had splenic infarct in the setting of endocarditis required drainage of this area at that time 2022 - hospitalized [facility] for such - did not require drainage, just IV abx size of the splenic abnormality on imaging today shows gradual reduction in size over the last 2 years (7) Acute metabolic encephalopathy: Plan: 2nd to #1, #2 - improved (8) (HFpEF) heart failure with preserved ejection fraction: Plan: Acute on chronic heart failure preserved ejection fraction last echo - 10/2023 - normal EF volume status improving currently bumex 2mg IV BID along with aldactone metolazone is on hold labs in am (9) Obesity hypoventilation syndrome: Plan: Obesity hypoventilation syndrome, CARINA needs BIPAP at HS she is only using NC O2 at bedtime prior to this admission appreciate Dr Bryant's consult he ordered BiPAP for patient will attempt to qualify her for BiPAP for home (10) Chronic right arterial ischemic stroke, MCA (middle cerebral artery): Plan: Right sided MCA territory CVA 2019 07 to septic emboli from endocarditis Resulting left-sided hemiplegia On Eliquis 2.5mg BID for secondary prevention (11) History of pulmonary embolism: Plan: cont Eliquis 2.5mg BID for prevention purposes (12) Morbid obesity: Plan: BMI ~60 (13) Major depressive disorder, recurrent episode, moderate with anxious distress: Plan: Continue sertraline (14) Opioid use disorder, severe, in sustained remission: Plan: continue methadone 72mg/day (15) Hypokalemia: Plan: still low on labs today replace repeat BMP am Plan Hypothyroidism: Continue Synthroid; TSH wnl DVT prophylaxis: Eliquis 2.5mg BID pt's 2 daughters updated at bedside yesterday pt's mother Itzel updated by phone ([phone]) yesterday and again today PT/OT consults requested Admission and Anticipated Discharge Date Admission Date: March 20, 2024 Subjective Michelle is feeling better today no vomiting nausea improved cough remains but is a little better during the visit she took a sip of juice and immediately coughed she reported that she often has pills that get "stuck" she does cough at home with eating/drinking I spoke with her mother by phone -- mother reports her swallowing has been getting worse over time denies pain any location Review of Systems Review of Systems: gen - no fevers; appetite is a little better today cv - no orthopnea pulm - cough, congestion, mild dyspnea GI - no abd pain or N/V today Physical Exam Physical Exam: gen - looks a little better today; obese, awake, alert mouth - MM more moist today neck - due to neck size unable to assess for JVD heart - RRR, s1 s2, no obvious murmur lungs - very difficult to perform exam because of body habitus but BS are decreased in both bases; anterior chest is clear abd - soft, NT, ND, BS+, no peritoneal signs ext - lymphedema b/l; pulses b/l feet 2+ neuro - left sided hemiplegia (baseline) Results & Data Results & Data Vital Signs (Past 12 Hours) Vital Signs Temp Pulse Pulse Resp BP Pulse Ox O2 Del Method 03/22/24 15:20 37.0 C 70 18 102/68 96 Nasal Cannula 03/22/24 12:55 37.0 C 71 18 112/75 93 Nasal Cannula 03/22/24 08:35 Nasal Cannula 03/22/24 07:41 81 03/22/24 07:37 36.7 C 74 18 104/67 92 Nasal Cannula O2 Flow Rate 03/22/24 15:20 4 03/22/24 12:55 3 03/22/24 08:35 4 03/22/24 07:41 03/22/24 07:37 4 Laboratory Results Laboratory Results - last 24 hr 03/22/24 03/22/24 10:55 14:53 WBC 10.04 RBC 4.44 Hgb 10.3 L Hct 35.6 L MCV 80.2 MCH 23.2 L MCHC 28.9 L RDW Std Deviation 42.9 RDW Coeff of Alexia 14.7 H Plt Count 427 H MPV 9.8 Immature Gran % (Auto) 0.7 Neut % (Auto) 78.1 Lymph % (Auto) 10.8 [place] % (Auto) 6.3 Eos % (Auto) 3.6 Baso % (Auto) 0.5 Neut # (Auto) 7.85 H Lymph # (Auto) 1.08 L [place] # (Auto) 0.63 H Eos # (Auto) 0.36 Baso # (Auto) 0.05 Immature Gran # (Auto) 0.07 ABG pH 7.46 H ABG pCO2 51 H ABG pO2 88 ABG HCO3 36 H ABG O2 Saturation 98.6 H ABG Base Excess 11.0 H Mike Test Pos Oxygen Given 3L Sodium 135 L Potassium 3.3 L Chloride 91 L Carbon Dioxide 37 H Anion Gap 7 BUN 12 Creatinine 0.79 Est Cr Clr Drug Dosing 167.8 Est GFR ( Amer) 110.8 Est GFR (Non-Af Amer) 95.6 BUN/Creatinine Ratio 15.2 Glucose 128 H Calcium 9.1 PG Care Time/CCT Total # of Minutes Spent Total Time Spent with Patient: Total time spent is greater than 50% in coordination of care (as documented) at patient's floor/unit and/or counseling patient: Coding Level of Care Code 35576 SUB INP/OBS CARE 50MIN Diagnoses RLL pneumonia J18.9 UTI (urinary tract infection) N39.0 Acute respiratory failure with hypoxia J96.01 Nausea and vomiting R11.2 Gallstones K80.20 Splenic abscess D73.3 Acute metabolic encephalopathy G93.41 (HFpEF) heart failure with preserved ejection fraction I50.30 Obesity hypoventilation syndrome E66.2 Chronic right arterial ischemic stroke, MCA (middle cerebral artery) I69.30 History of pulmonary embolism Z86.711 Morbid obesity E66.01 Major depressive disorder, recurrent episode, moderate with anxious distress F33.1 Opioid use disorder, severe, in sustained remission F11.21 Hypokalemia E87.6
[2024-03-22] MEDS: POTASSIUM CHLORIDE CRTAB 20 MEQ TABCR PO STA (16:18)
[2024-03-22] MEDS: ACETAMINOPHEN 325 MG TAB PO PRN (21:17)
[2024-03-22] MEDS ORDERED: KETOCONAZOLE 2% CR 15 GM TUBE EXT PRN (22:43)
--- NOTE | 2024-03-23 10:26 | Pulmonology Progress Note ---
Date of Service March 23, 2024 Assessment & Plan (1) SOB (shortness of breath): (2) CHF (congestive heart failure): Heart failure chronicity: acute Heart failure type: unspecified Qualified Code(s): I50.9 - Heart failure, unspecified (3) Acute on chronic respiratory failure with hypoxia: (4) Acute and chronic respiratory failure with hypercapnia: Plan 38-year-old female with a past medical history of morbid obesity, OHS, CARINA, bipolar disorder, drug abuse, mitral valve dysfunction status post replacement and diastolic heart failure who is presenting as a direct admission from [facility] for an acute diastolic heart failure exacerbation and possible pneumonia. 2D echo 10/24/2023: EF 65 and 70%, concentric LVH, RV not well-visualized Spirometry 03/23/2024 personally reviewed: Suboptimal test, no obstructive lung dysfunction, inclining more towards obstruction, flow-volume loop shows changes of markings going towards probable CARINA FVC 2.22 L 54%, FEV1 1.66 L 49%, FEV1/FVC 75% ABG 03/22/2024: 7.46/51/88 on 3 L -- Acute on chronic hypercapnic hypoxic respiratory failure Multifactorial Hypercapnia is most likely from underlying CARINA/OHS Hypoxia is probably from HFpEF as well as dependent atelectasis with VQ mismatch Procalcitonin negative Respiratory BioFire negative for everything Nasal MRSA positive BNP 77 -- Morbid obesity BMI 62 Advised lose weight diet and exercise --History of CARINA/OHS -- History of drug abuse S/p MVR Spirometry 03/23/2024 personally reviewed: Suboptimal test, no obstructive lung dysfunction, inclining more towards obstruction, flow-volume loop shows changes of markings going towards probable CARINA FVC 2.22 L 54%, FEV1 1.66 L 49%, FEV1/FVC 75% Plan: Patient unfortunately is not able to tolerate BiPAP because of claustrophobia. Looking at the spirometry, she might be a good candidate for AVAPS but again if she is not willing to use the BiPAP. Then it is highly unlikely that she will be tolerating AVAPS. Would recommend outpatient polysomnography if the patient is willing to use CPAP/BiPAP. Follow sputum culture Given the procalcitonin being negative, patient already got antibiotic vancomycin for 3 days I think it is reasonable to de-escalate to only doxycycline and Zosyn Case was discussed with primary team and RN at bedside No further recommendation from pulmonary perspective, will sign off Please call directly with any questions Please note the above document was generated using voice recognition software. It may contain grammatical, syntax or spelling errors.Any formal questions or concerns about the content, text or information contained within the body of this dictation should be directly addressed to the provider for clarification. Admission and Anticipated Discharge Date Admission Date: March 20, 2024 Subjective Patient seen and examined at bedside. No acute distress, no adverse events overnight She was saturating 93-94% on 3 days nasal cannula, I went down to 2 L Denied any chest pain. Unfortunately she again refused to use BiPAP overnight stating claustrophobia Occasional cough while she is eating. No nausea or vomiting Review of Systems 2 Review of Systems: All systems reviewed & are unremarkable except as noted in Subjective Physical Exam 2 Physical Exam: Constitutional: No acute distress HEENT: EOMI, PERRLA Respiratory system: Decreased air entry bilaterally, no wheeze, no rhonchi, positive crackles bilateral lower lobes CVS: S1-S2 positive, no murmurs or gallops Abdomen: Soft, nontender, nondistended, positive bowel sounds x4, obese Extremities: +2 pulses bilaterally radialis/ dorsalis pedis, no cyanosis, no edema Neuro: Awake alert oriented x3 Psych: Normal mood and affect G/U: Positive horowitz Skin: no rashes, warm and dry Lymphatic: no cervical or axillary lymphadenopathy Results & Data Results & Data Vital Signs (Past 12 Hours) Vital Signs Temp Pulse Pulse Pulse Resp BP Pulse Ox 03/23/24 08:54 77 103/61 03/23/24 08:08 37.2 C 75 18 98/65 L 93 03/23/24 08:00 77 03/23/24 07:15 03/23/24 02:25 37.0 C 73 18 112/70 94 03/22/24 23:52 73 03/22/24 22:33 37.4 C 74 18 117/77 94 O2 Del Method O2 Flow Rate 03/23/24 08:54 03/23/24 08:08 Nasal Cannula 3 03/23/24 08:00 03/23/24 07:15 Nasal Cannula 4 03/23/24 02:25 Nasal Cannula 4 03/22/24 23:52 09/30/24 22:33 Nasal Cannula 3 Laboratory Results 03/22/24 10:55 03/22/24 10:55 PG Care Time/CCT Total # of Minutes Spent Total Time Spent with Patient: Total time spent is greater than 50% in coordination of care (as documented) at patient's floor/unit and/or counseling patient: Coding Level of Care Code 09539 SUB INP/OBS CARE 2/35MIN Diagnoses SOB (shortness of breath) R06.02 CHF (congestive heart failure) I50.9 Heart failure chronicity: acute Heart failure type: unspecified Acute on chronic respiratory failure with hypoxia J96.21 Acute and chronic respiratory failure with hypercapnia J96.22
[2024-03-23 13:16] LABS: Basophils # (auto) 0.06 K/uL (0.00-0.20); Basophils % (auto) 0.6 %; Eosinophils # (auto) 0.28 K/uL (0.00-0.50); Eosinophils % (auto) 2.8 %; Hematocrit (blood only) 36.4 % (37.0-47.0); Hemoglobin 10.9 g/dl (12.0-16.0); Lymphocytes # (auto) 1.35 K/uL (1.20-3.40); Lymphocytes % (auto) 13.4 %; Mean Corpuscular Hemoglobin 23.2 pg (25.0-34.0); Mean Corpuscular Hgb Conc 29.9 g/dL (32.0-36.0); Mean Corpuscular Volume 77.4 fL (80.0-100.0); Mean Platelet Volume 9.8 fL (9.4-12.4); Monocytes # (auto) 0.42 K/uL (0.11-0.59); Monocytes % (auto) 4.2 %; Neutrophils # (auto) 7.89 K/uL (1.40-6.50); Platelet Count 454 K/uL (130-400); RDW Coefficient of Variation 14.7 % (11.5-14.5)
[2024-03-23 13:35] LABS: BUN Creatinine Ratio 12.8 (10-20); Calcium 9.1 mg/dl (8.6-10.3); Creatinine Clr Calc Pharmacy 141.1 ml/min; Est GFR (African American) 89.8 ml/min; Est GFR (Non-African American) 77.5 ml/min; Potassium 3.1 mmol/L (3.5-5.1)
[2024-03-23] MEDS: POTASSIUM CHLORIDE CRTAB 20 MEQ TABCR PO STA (14:59)
--- NOTE | 2024-03-23 18:46 | Hospitalist Progress Note ---
Date of Service March 23, 2024 Assessment & Plan (1) RLL pneumonia: Plan: CT a/p shows evidence of RLL pneumonia, potentially aspiration pneumonia MRSA nasal positive, procalcitonin negative. concern for aspiration based on imaging appearance however has no signs or symptoms on bedside swallow eval. Neelima does not have any intrinsic reason to have dysphagia, if aspiration is occurring and may be related to sedating medications such as methadone, hypercarbia, potentially nocturnal. I do not think VFSS will provide any benefit, discussed with speech therapist continue pip-tazo and doxycycline, we will change these to oral tomorrow if she continues to progress favorably stopped vancomycin MRSA coverage, she is not producing any sputum for culture today back on baseline oxygen nasal cannula 2 L (2) (HFpEF) heart failure with preserved ejection fraction: Plan: Acute on chronic heart failure preserved ejection fraction last echo - 10/2023 - normal EF volume status improving. weight has improved from 180 kg down to 168 kg today. Last discharge was 165 continue Bumex 4 mg IV BID along with aldactone metolazone is on hold replace hypokalemia with extra dose of potassium chloride today, continue scheduled replacement, a.m. BMP and mag ordered (3) UTI (urinary tract infection): Plan: Although urine cx was negative, CT a/p shows an inflamed bladder, and she had dysuria for several days prior to admission. U/a was suggestive of UTI as well. Abx for #1 will cover the urinary tract. (4) Acute respiratory failure with hypoxia: Plan: acute on chronic hypoxic respiratory failure 2nd to acute/chronic HFpEF 2nd to RLL pneumonia resolved back to her chronic baseline 2 L (5) Nausea and vomiting: Plan: Likely multifactorial - presumed UTI, pneumonia, etc. 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 required drainage of this area at that time 2022 - hospitalized [facility] for such - did not require drainage, just IV abx size of the splenic abnormality on imaging today shows gradual reduction in size over the last 2 years (8) Acute metabolic encephalopathy: Plan: 2nd to #1, #2 - resolved (9) Obesity hypoventilation syndrome: Plan: Obesity hypoventilation syndrome, CARINA needs BIPAP at HS she is only using NC O2 at bedtime prior to this admission appreciate Dr Bryant's consult he ordered BiPAP for patient, however she has consistently refused it I discussed this with her today she would try nasal cannula but not a facemask due to anxiety and claustrophobia. 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 this would improve her prognosis from the HFpEF as well as obesity hypoventilation and diabetes (13) Major depressive disorder, recurrent episode, moderate with anxious distress: Plan: Continue sertraline (14) Opioid use disorder, severe, in sustained remission: Plan: continue methadone 72mg/day Plan Hypothyroidism: Continue Synthroid; TSH wnl DVT prophylaxis: Eliquis 2.5mg BID she reports she has been up and out of bed several times daily PT/OT consults requested Admission and Anticipated Discharge Date Admission Date: March 20, 2024 Subjective Nausea/vomiting resolved Leg edema improved significantly Shortness of breath improved, cough is nonproductive Physical Exam 2 Physical Exam: PHYSICAL EXAMINATION Last 24h vital signs reviewed, see documentation in flowsheet General: comfortable appearing, no distress, lying flat on bed HEENT: Normocephalic, atraumatic, pupils round and equal, sclerae anicteric, no conjunctival injection, moist mucus membranes Lungs: Normal respiratory effort. Clear to auscultation bilaterally anteriorly. No RRW Heart: Regular rate and rhythm, no murmurs. No JVD Abdomen: Soft, nontender, nondistended. Bowel sounds present. Extremities: Warm, dry, well-perfused. 3+ lower extremity edema. Neuro: Alert and oriented x 4, face symmetric, moves 4 extremities well Psych: Normal affect and behavior Results & Data Results & Data Vital Signs (Past 12 Hours) Vital Signs Temp Pulse Pulse Pulse Resp BP Pulse Ox 03/23/24 18:31 36.5 C 74 18 97/66 L 92 03/23/24 11:20 37.4 C 76 18 113/66 95 03/23/24 08:54 77 103/61 03/23/24 08:08 37.2 C 75 18 98/65 L 93 03/23/24 08:00 77 03/23/24 07:15 O2 Del Method O2 Flow Rate FiO2 03/23/24 18:31 Nasal Cannula 3 03/23/24 11:20 Nasal Cannula 3 03/23/24 08:54 03/23/24 08:08 Nasal Cannula 3 03/23/24 08:00 03/23/24 07:15 Nasal Cannula 4 Laboratory Results 03/23/24 13:01 03/23/24 13:01 PG Care Time/CCT Total # of Minutes Spent Total Time Spent with Patient: Total time spent is greater than 50% in coordination of care (as documented) at patient's floor/unit and/or counseling patient: Coding Level of Care Code 32282 SUB INP/OBS CARE 2/35MIN Diagnoses RLL pneumonia J18.9 (HFpEF) heart failure with preserved ejection fraction I50.30 UTI (urinary tract infection) N39.0 Acute respiratory failure with hypoxia J96.01 Nausea and vomiting R11.2 Gallstones K80.20 Splenic abscess D73.3 Acute metabolic encephalopathy G93.41 Obesity hypoventilation syndrome E66.2 Chronic right arterial ischemic stroke, MCA (middle cerebral artery) I69.30 History of pulmonary embolism Z86.711 Morbid obesity E66.01 Major depressive disorder, recurrent episode, moderate with anxious distress F33.1 Opioid use disorder, severe, in sustained remission F11.21
[2024-03-23] MEDS: POTASSIUM CHLORIDE CRTAB 20 MEQ TABCR PO SCH (20:15)
[2024-03-24] MEDS ORDERED: VANCOMYCIN LEVEL ONE (05:00)
[2024-03-24 13:00] LABS: Calcium 9.5 mg/dl (8.6-10.3); Magnesium 1.6 mg/dl (1.7-2.4); Potassium 3.2 mmol/L (3.5-5.1)
[2024-03-24 13:05] LABS: BUN Creatinine Ratio 11.8 (10-20); Creatinine Clr Calc Pharmacy 136.3 ml/min
--- NOTE | 2024-03-24 13:12 | Hospitalist Progress Note ---
Date of Service March 24, 2024 Assessment & Plan (1) RLL pneumonia: Plan: CT a/p shows evidence of RLL pneumonia, potentially aspiration pneumonia MRSA nasal positive, procalcitonin negative. concern for aspiration based on imaging appearance however has no signs or symptoms on bedside swallow eval. Neelima does not have any intrinsic reason to have dysphagia, if aspiration is occurring and may be related to sedating medications such as methadone, hypercarbia, potentially nocturnal. I do not think VFSS will provide any benefit, discussed with speech therapist initially treated with vancomycin because of positive nasal MRSA, pip-tazo, IV doxycycline - changed to oral Augmentin and doxycycline today, complete 7-day course - back on baseline oxygen nasal cannula 2 L (2) (HFpEF) heart failure with preserved ejection fraction: Plan: Acute on chronic heart failure preserved ejection fraction last echo - 10/2023 - normal EF based on my experience with Neelima over several admissions I think she does have significant amount of right sided heart failure, unfortunately her RV is not really able to be visualized on echo because of her body habitus treating CARINA/OHS would be the best intervention for this as well as weight loss. she does develop a lot of abdominal symptoms such as nausea vomiting and constipation when she is getting volume overloaded and eventually oral diuretics become ineffective. diuresed with IV Bumex from admission through morning of 03/24 volume status improving. weight has improved from 180 kg down to 168 kg. Last discharge was 165 today changed back to her usual oral Bumex, spironolactone, will give dose of metolazone 2.5 mg tomorrow morning. If oral diuretics are effective in maintaining euvolemia will be suitable for discharge home still hypokalemic with potassium 3.3 continue standing replacement add additional 40 mEq p.o., replaced hypomagnesemia of 1.6 with 2 g IV today can transfer to medical unit no longer on IV diuretics, discontinue Monique tomorrow if volume status continues improving on oral diuretics (3) UTI (urinary tract infection): Plan: Although urine cx was negative, CT a/p shows an inflamed bladder, and she had dysuria for several days prior to admission. U/a was suggestive of UTI as well. pneumonia antibiotics will have covered any UTI organisms. (4) Acute respiratory failure with hypoxia: Plan: acute on chronic hypoxic respiratory failure 2nd to acute/chronic HFpEF 2nd to RLL pneumonia resolved back to her chronic baseline 2 L (5) Nausea and vomiting: Plan: CT a/p without findings of acute cholecystitis CT a/p shows the splenic abnormality from several years ago but the size of the splenic abnormality continues to get smaller thus this is unlikely to be the source of her symptoms pneumonia may have been playing a role but I think she also has right-sided heart failure and develops abdominal symptoms when volume overloaded. 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 required drainage of this area at that time 2022 - hospitalized [facility] for such - did not require drainage, just IV abx size of the splenic abnormality on imaging today shows gradual reduction in size over the last 2 years (8) Acute metabolic encephalopathy: Plan: 2nd to #1, #2 - resolved (9) Obesity hypoventilation syndrome: Plan: Obesity hypoventilation syndrome, CARINA she is only using NC O2 at bedtime prior to this admission appreciate Dr Bryant's consult he ordered BiPAP for patient, however she has consistently refused it discussed this with her today she would try nasal cannula but not a facemask due to anxiety and claustrophobia. I suggested outpatient sleep study to see if she has CARINA at least that component could be treated with CPAP reviewed PFTs this admission show primarily restrictive lung disease she is agreeable to a trial of CPAP by nasal cannula tonight we can try it if [facility] has that equipment available (10) Chronic right arterial ischemic stroke, MCA (middle cerebral artery): Plan: Right sided MCA territory CVA 2019 2nd to septic emboli from endocarditis Resulting left-sided hemiplegia On Eliquis 2.5mg BID for secondary prevention (11) History of pulmonary embolism: Plan: cont Eliquis 2.5mg BID for prevention purposes (12) Morbid obesity: Plan: BMI ~60 I discussed with her continuing to pursue a GLP1 agonist as an outpatient, we did have this discussion in the spring however it has not gone anywhere. this would improve her prognosis from the HFpEF as well as obesity hypoventilation and diabetes (13) Major depressive disorder, recurrent episode, moderate with anxious distress: Plan: Continue sertraline (14) Opioid use disorder, severe, in sustained remission: Plan: continue methadone 72mg/day Plan Hypothyroidism: Continue Synthroid; TSH wnl DVT prophylaxis: Eliquis 2.5mg BID she reports she has been up and out of bed several times daily PT/OT consults reviewedshe is at her functional baseline no further PT and OT indicated she does live at home with her mother and adult children, lives in a house with ramp to enter, typically sleeps in her recliner chair and can get out of bed to bedside commode otherwise uses a wheelchair, has home O2 5 L oxygen nasal cannula Admission and Anticipated Discharge Date Admission Date: March 20, 2024 Subjective Neelima continues to feel a little bit better, her shortness of breath is at her chronic baseline, she did reasonably well overnight, she is up in the chair right now her edema is significantly improved and is hard for her to tell if she is still retaining fluid, right forearm is swollen related to an IV infiltration, she is willing to try CPAP with nasal cannula but not BiPAP mask, she has home oxygen but not BiPAP or CPAP at home, her nausea and vomiting has resolved and she is eating well at this time Physical Exam 2 Physical Exam: PHYSICAL EXAMINATION Last 24h vital signs reviewed, see documentation in flowsheet General: sitting up in the chair awake and alert HEENT: Normocephalic, atraumatic, pupils round and equal, sclerae anicteric, no conjunctival injection, moist mucus membranes Lungs: none labored, breath sounds are distant. Clear to auscultation bilaterally. No RRW Heart: distant Regular rate and rhythm, no murmurs. No JVD Abdomen: Soft, nontender, nondistended. no apparent abdominal wall edema Bowel sounds present. Extremities: Warm, dry, well-perfused. 3+ lower extremity edema. I cannot detect much pitting edema at this time Neuro: Alert and oriented x 4, face symmetric, moves 4 extremities well Psych: Normal affect and behavior Results & Data Results & Data Vital Signs (Past 12 Hours) Vital Signs Temp Pulse Pulse Resp BP Pulse Ox O2 Del Method 03/24/24 12:37 37.0 C 75 18 104/68 92 Nasal Cannula 03/24/24 09:17 Nasal Cannula 03/24/24 08:02 37.1 C 81 18 108/68 95 Nasal Cannula 03/24/24 06:00 79 03/24/24 05:17 73 03/24/24 03:52 36.7 C 78 18 110/62 93 Nasal Cannula O2 Flow Rate 03/24/24 12:37 3 03/24/24 09:17 4 03/24/24 08:02 3 03/24/24 06:00 03/24/24 05:17 03/24/24 03:52 Laboratory Results 03/23/24 13:01 03/24/24 12:21 PG Care Time/CCT Total # of Minutes Spent Total Time Spent with Patient: Total time spent is greater than 50% in coordination of care (as documented) at patient's floor/unit and/or counseling patient: Coding Level of Care Code 51658 SUB INP/OBS CARE 2/35MIN Diagnoses RLL pneumonia J18.9 (HFpEF) heart failure with preserved ejection fraction I50.30 UTI (urinary tract infection) N39.0 Acute respiratory failure with hypoxia J96.01 Nausea and vomiting R11.2 Gallstones K80.20 Splenic abscess D73.3 Acute metabolic encephalopathy G93.41 Obesity hypoventilation syndrome E66.2 Chronic right arterial ischemic stroke, MCA (middle cerebral artery) I69.30 History of pulmonary embolism Z86.711 Morbid obesity E66.01 Major depressive disorder, recurrent episode, moderate with anxious distress F33.1 Opioid use disorder, severe, in sustained remission F11.21
[2024-03-24] MEDS: POTASSIUM CHLORIDE CRTAB 20 MEQ TABCR PO STA (14:54)
[2024-03-24] MEDS: MAGNESIUM SULFATE / D5W 1 GM/100 ML BAG IV SCH (14:59)
[2024-03-24] MEDS: AMOXICILLIN/CLAVULANATE 875 MG TAB PO SCH (16:47)
[2024-03-24] MEDS: BUMETANIDE 1 MG TAB PO SCH (16:47)
[2024-03-24] MEDS: DOXYCYCLINE HYCLATE 100 MG CAP PO SCH (22:09)
[2024-03-24] MEDS: MAGNESIUM OXIDE 400 MG TAB PO SCH (22:11)
[2024-03-25] MEDS: metOLazone 2.5 MG TABLET PO ONE (08:33)
[2024-03-25] MEDS ORDERED: PHENAZOPYRIDINE HCL 200 MG TAB PO PRN (09:13)
[2024-03-25 10:04] LABS: Calcium 9.5 mg/dl (8.6-10.3); Potassium 2.9 mmol/L (3.5-5.1)
[2024-03-25 10:06] LABS: BUN Creatinine Ratio 11.9 (10-20); Creatinine Clr Calc Pharmacy 120.3 ml/min
[2024-03-25] MEDS: ADVANCED PROBIOTIC 625 MG CAPSULE PO SCH (13:12)
[2024-03-25] MEDS: LOPERAMIDE HCL 2 MG CAP PO STA (13:12)
[2024-03-25] MEDS: LOPERAMIDE HCL 2 MG CAP PO ONE (13:45)
--- NOTE | 2024-03-25 16:45 | Hospitalist Progress Note ---
Date of Service March 25, 2024 Assessment & Plan (1) RLL pneumonia: Plan: CT a/p shows evidence of RLL pneumonia, potentially aspiration pneumonia/pneumonitis MRSA nasal positive, procalcitonin negative. concern for aspiration based on imaging appearance however has no signs or symptoms on bedside swallow eval. Neelima does not have any intrinsic reason to have dysphagia, if aspiration is occurring and may be related to sedating medications such as methadone, hypercarbia, potentially nocturnal. I do not think VFSS will provide any benefit, discussed with speech therapist initially treated with vancomycin because of positive nasal MRSA, pip-tazo, IV doxycycline - changed to oral Augmentin and doxycycline completed 6 days of total antibiotics stopped today because of the development of severe diarrhea this AM - pneumonia seems to have resolved - back on baseline oxygen nasal cannula 2 L (2) Acute diarrhea: Plan: acute diarrhea AM 03/25 with low grade temperature elevation. Imodium x 1 dose, hold po mag ox, not on laxative, check C. diff, start probiotic, stop other antibiotics -checked back late afternoon diarrhea improved only a smear throughout the day -reviewed BMP - has elevated anion gap - probably volume depletion at this point, continue to hold diuretic, BMP in AM (3) (HFpEF) heart failure with preserved ejection fraction: Plan: Acute on chronic heart failure preserved ejection fraction last echo - 10/2023 - normal EF based on my experience with Neelima over several admissions I think she does have significant amount of right sided heart failure, unfortunately her RV is not really able to be visualized on echo because of her body habitus treating CARINA/OHS would be the best intervention for this as well as weight loss. she does develop a lot of abdominal symptoms such as nausea vomiting and constipation when she is getting volume overloaded and eventually oral diuretics become ineffective. diuresed with IV Bumex from admission through morning of 03/24 volume status improved. weight has improved from 180 kg down to 168 kg. Last discharge was 165 resumed oral diuretics this AM, since then held because of diarrhea -accidentally pulled her horowitz out overnight, causing dysuria related to urethral trauma - added pyridium PRN and petrolatum for labial and perianal area prn for irritation related to horowitz and diarrhea -hypokalemia is worse. refused PIV replacement yesterday and did not get the IV mag. on 20 meq potassium chloride already and add extra dose of 40 meq po this afternoon (4) UTI (urinary tract infection): Plan: Although urine cx was negative, CT a/p shows an inflamed bladder, and she had dysuria for several days prior to admission. U/a was suggestive of UTI as well. pneumonia antibiotics will have covered any UTI organisms. (5) Acute respiratory failure with hypoxia: Plan: acute on chronic hypoxic respiratory failure 2nd to acute/chronic HFpEF 2nd to RLL pneumonia resolved back to her chronic baseline 2 L (6) Nausea and vomiting: Plan: CT a/p without findings of acute cholecystitis CT a/p shows the splenic abnormality from several years ago but the size of the splenic abnormality continues to get smaller thus this is unlikely to be the source of her symptoms pneumonia may have been playing a role but I think she also has right-sided heart failure and develops abdominal symptoms when volume overloaded. 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 required drainage of this area at that time 2022 - hospitalized [facility] for such - did not require drainage, just IV abx size of the splenic abnormality on imaging today shows gradual reduction in size over the last 2 years (9) Acute metabolic encephalopathy: Plan: 2nd to #1, #2 - resolved (10) Obesity hypoventilation syndrome: Plan: Obesity hypoventilation syndrome, CARINA she is only using NC O2 at bedtime prior to this admission appreciate Dr Bryant's consult he ordered BiPAP for patient, however she has consistently refused it discussed this with her today she would try nasal cannula but not a facemask due to anxiety and claustrophobia. I suggested outpatient sleep study to see if she has CARINA at least that component could be treated with CPAP reviewed PFTs this admission show primarily restrictive lung disease she is agreeable to a trial of CPAP by nasal cannula but we do not have that equipment. 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 this would improve her prognosis from the HFpEF as well as obesity hypoventilation and diabetes (14) Major depressive disorder, recurrent episode, moderate with anxious distress: Plan: Continue sertraline (15) Opioid use disorder, severe, in sustained remission: Plan: continue methadone 72mg/day Plan Hypothyroidism: Continue Synthroid; TSH wnl DVT prophylaxis: Eliquis 2.5mg BID she reports she has been up and out of bed several times daily PT/OT consults reviewedshe is at her functional baseline no further PT and OT indicated she does live at home with her mother and adult children, lives in a house with ramp to enter, typically sleeps in her recliner chair and can get out of bed to bedside commode otherwise uses a wheelchair, has home O2 5 L oxygen nasal cannula Admission and Anticipated Discharge Date Admission Date: March 20, 2024 Subjective seen this AM around 8 has been having diarrhea since earlier this AM, no abdominal pain, also accidentally pulled out her horowitz overnight and having urethral pain related to that no increase in dyspnea over baseline, not coughing much denies Hx of C. diff was not on laxatives Physical Exam 2 Physical Exam: PHYSICAL EXAMINATION Last 24h vital signs reviewed, see documentation in flowsheet General: awake lying on bed mildly agitated HEENT: Normocephalic, atraumatic, pupils round and equal, sclerae anicteric, no conjunctival injection, moist mucus membranes Lungs: nonlabored, breath sounds are distant. Clear to auscultation bilaterally clear anteriorly. No RRW Heart: distant Regular rate and rhythm, no murmurs. No JVD Abdomen: s/nt/nd +BT Extremities: Warm, dry, well-perfused. no pitting edema at this time though hard to assess r/t body habitus Neuro: Alert and oriented x 4, face symmetric, moves 4 extremities well Psych: anxious affect and behavior Results & Data Results & Data Vital Signs (Past 12 Hours) Vital Signs Temp Pulse Pulse Resp BP Pulse Ox O2 Del Method 03/25/24 12:29 37 C 77 19 96/64 L 94 Nasal Cannula 03/25/24 09:01 Nasal Cannula 03/25/24 08:54 84 20 96 Nasal Cannula 03/25/24 08:16 37.7 C H 100 H 22 126/82 90 Nasal Cannula 03/25/24 06:00 115 H O2 Flow Rate 03/25/24 12:29 3 03/25/24 09:01 4 03/25/24 08:54 4 03/25/24 08:16 2 03/25/24 06:00 Laboratory Results 03/23/24 13:01 03/25/24 08:56 PG Care Time/CCT Total # of Minutes Spent Total Time Spent with Patient: Total time spent is greater than 50% in coordination of care (as documented) at patient's floor/unit and/or counseling patient: Coding Level of Care Code 09038 SUB INP/OBS CARE 3/50MIN Diagnoses RLL pneumonia J18.9 Acute diarrhea R19.7 (HFpEF) heart failure with preserved ejection fraction I50.30 UTI (urinary tract infection) N39.0 Acute respiratory failure with hypoxia J96.01 Nausea and vomiting R11.2 Gallstones K80.20 Splenic abscess D73.3 Acute metabolic encephalopathy G93.41 Obesity hypoventilation syndrome E66.2 Chronic right arterial ischemic stroke, MCA (middle cerebral artery) I69.30 History of pulmonary embolism Z86.711 Morbid obesity E66.01 Major depressive disorder, recurrent episode, moderate with anxious distress F33.1 Opioid use disorder, severe, in sustained remission F11.21
[2024-03-25] MEDS: POTASSIUM CHLORIDE CRTAB 20 MEQ TABCR PO STA (18:39)
[2024-03-26 10:08] LABS: Hematocrit (blood only) 36.2 % (37.0-47.0); Hemoglobin 10.9 g/dl (12.0-16.0); Mean Corpuscular Hemoglobin 23.2 pg (25.0-34.0); Mean Corpuscular Hgb Conc 30.1 g/dL (32.0-36.0); Mean Corpuscular Volume 77.2 fL (80.0-100.0); Mean Platelet Volume 9.7 fL (9.4-12.4); Platelet Count 531 K/uL (130-400); RDW Coefficient of Variation 14.9 % (11.5-14.5); RDW Standard Deviation 40.9 fL (36.4-46.3); Red Blood Count 4.69 M/uL (4.20-5.40); White Blood Count 9.19 K/ul (4.8-10.8)
[2024-03-26 10:21] LABS: Calcium 9.6 mg/dl (8.6-10.3); Potassium 2.9 mmol/L (3.5-5.1)
[2024-03-26 10:27] LABS: BUN Creatinine Ratio 15.4 (10-20); Creatinine Clr Calc Pharmacy 145.3 ml/min
[2024-03-26] MEDS: POTASSIUM CHLORIDE CRTAB 20 MEQ TABCR PO SCH (14:48)
--- NOTE | 2024-03-26 17:40 | Hospitalist Progress Note ---
Date of Service March 26, 2024 Assessment & Plan (1) RLL pneumonia: Plan: 38-year-old with HFpEF admitted with dyspnea, treated for pneumonia and acute on chronic heart failure CT a/p shows evidence of RLL pneumonia, potentially aspiration pneumonia/pneumonitis MRSA nasal positive, procalcitonin negative. concern for aspiration based on imaging appearance however has no signs or symptoms on bedside swallow eval. Neelima does not have any intrinsic reason to have dysphagia, if aspiration is occurring and may be related to sedating medications such as methadone, hypercarbia, potentially nocturnal. I do not think VFSS will provide any benefit, discussed with speech therapist initially treated with vancomycin because of positive nasal MRSA, pip-tazo, IV doxycycline - changed to oral Augmentin and doxycycline completed 6 days of total antibiotics stopped 1 day early because of the development of severe diarrhea, now resolved - pneumonia seems to have resolved - back on baseline oxygen nasal cannula 2 L (2) (HFpEF) heart failure with preserved ejection fraction: Plan: Acute on chronic heart failure preserved ejection fraction last echo - 10/2023 - normal EF based on my experience with Neelima over several admissions I think she does have significant amount of right sided heart failure, unfortunately her RV is not really able to be visualized on echo because of her body habitus treating CARINA/OHS would be the best intervention for this as well as weight loss. she does develop a lot of abdominal symptoms such as nausea vomiting and constipation when she is getting volume overloaded and eventually oral diuretics become ineffective. diuresed with IV Bumex from admission through morning of 03/24 volume status improved. weight has improved from 180 kg down to 168 kg. Last discharge was 165 resuming oral diuretics this afternoon increased potassium replacement to 40 mEq p.o. 3 times daily for severe refractory hypokalemia K2.9 declined to have PIV replaced so hard to address magnesium (clara with diarrhea), resumed mag ox bid (3) Acute diarrhea: Plan: acute diarrhea AM 03/25 likely antibiotic associated diarrhea. Antibiotics have been stopped resolved after 1 Imodium, continue probiotic metabolic acidosis present yesterday was related to volume depletion, resolved after holding diuretics briefly (4) UTI (urinary tract infection): Plan: Although urine cx was negative, CT a/p shows an inflamed bladder, and she had dysuria for several days prior to admission. U/a was suggestive of UTI as well. pneumonia antibiotics will have covered any UTI organisms. (5) Acute respiratory failure with hypoxia: Plan: acute on chronic hypoxic respiratory failure 2nd to acute/chronic HFpEF 2nd to RLL pneumonia resolved back to her chronic baseline 2 L (6) Nausea and vomiting: Plan: CT a/p without findings of acute cholecystitis CT a/p shows the splenic abnormality from several years ago but the size of the splenic abnormality continues to get smaller thus this is unlikely to be the source of her symptoms pneumonia may have been playing a role but I think she also has right-sided heart failure and develops abdominal symptoms when volume overloaded. 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 required drainage of this area at that time 2022 - hospitalized [facility] for such - did not require drainage, just IV abx size of the splenic abnormality on imaging today shows gradual reduction in size over the last 2 years (9) Acute metabolic encephalopathy: Plan: 2nd to #1, #2 - resolved (10) Obesity hypoventilation syndrome: Plan: Obesity hypoventilation syndrome, CARINA she is only using NC O2 at bedtime prior to this admission appreciate Dr Bryant's consult he ordered BiPAP for patient, however she has consistently refused it discussed this with her today she would try nasal cannula but not a facemask due to anxiety and claustrophobia. I suggested outpatient sleep study to see if she has CARINA at least that component could be treated with CPAP reviewed PFTs this admission show primarily restrictive lung disease she is agreeable to a trial of CPAP by nasal cannula but we do not have that equipment. scheduling an outpatient sleep study has been exceedingly difficult - attempted for many months and still not done yet I discussed with her mother 03/25 and she is planning to call and enquire about a home sleep study since they cannot accommodate her in the sleep lab continue nocturnal O2 pnc, elevate HOB, sleeps in recliner at home (11) Chronic right arterial ischemic stroke, MCA (middle cerebral artery): Plan: Right sided MCA territory CVA 2019 07 to septic emboli from endocarditis Resulting left-sided hemiplegia On Eliquis 2.5mg BID for secondary prevention (12) History of pulmonary embolism: Plan: cont Eliquis 2.5mg BID for prevention purposes (13) Morbid obesity: Plan: BMI ~60 I discussed with her continuing to pursue a GLP1 agonist as an outpatient, we did have this discussion in the spring however it has not gone anywhere. this would improve her prognosis from the HFpEF as well as obesity hypoventilation and diabetes (14) Major depressive disorder, recurrent episode, moderate with anxious distress: Plan: Continue sertraline (15) Opioid use disorder, severe, in sustained remission: Plan: continue methadone 72mg/day Plan Hypothyroidism: Continue Synthroid; TSH wnl DVT prophylaxis: Eliquis 2.5mg BID she reports she has been up and out of bed several times daily PT/OT consults revieweddavid is at her functional baseline no further PT and OT indicated she does live at home with her mother and adult children, lives in a house with ramp to enter, typically sleeps in her recliner chair and can get out of bed to bedside commode otherwise uses a wheelchair, has home O2 5 L oxygen nasal cannula updated Michelle's mother by phone last evening. Planning for discharge tomorrow AM Admission and Anticipated Discharge Date Admission Date: March 20, 2024 Subjective as she feels much better today no further diarrhea since yesterday morning, no abdominal pain, dysuria from pulling out her Monique catheter is improved or resolved, dyspnea is at her baseline Physical Exam 2 Physical Exam: PHYSICAL EXAMINATION Last 24h vital signs reviewed, see documentation in flowsheet General: sleeping but aroused easily, lying flat on bed HEENT: Normocephalic, atraumatic, pupils round and equal, sclerae anicteric, no conjunctival injection, moist mucus membranes Lungs: nonlabored, breath sounds are distant. Clear to auscultation bilaterally clear anteriorly. No RRW Heart: distant Regular rate and rhythm, no murmurs. No JVD Abdomen: soft nontender nondistended bowel sounds are present Extremities: Warm, dry, well-perfused. no pitting edema at this time though hard to assess r/t body habitus. skin is cool but she has cold fan blowing on her Neuro: Alert and oriented x 4, face symmetric, moves 4 extremities well Psych: normal affect and behavior Results & Data Results & Data Vital Signs (Past 12 Hours) Vital Signs Temp Pulse Pulse Pulse Resp BP Pulse Ox 03/26/24 17:31 75 03/26/24 15:55 36.8 C 71 19 108/73 98 03/26/24 11:00 37.1 C 20 100/66 97 03/26/24 08:00 03/26/24 07:31 70 03/26/24 07:00 72 20 94/58 L 95 O2 Del Method O2 Flow Rate 03/26/24 17:31 03/26/24 15:55 Nasal Cannula 5 03/26/24 11:00 Nasal Cannula 5 03/26/24 08:00 Nasal Cannula 4 03/26/24 07:31 03/26/24 07:00 Nasal Cannula 4 Laboratory Results 03/26/24 09:34 03/26/24 09:34 PG Care Time/CCT Total # of Minutes Spent Total Time Spent with Patient: Total time spent is greater than 50% in coordination of care (as documented) at patient's floor/unit and/or counseling patient: Coding Level of Care Code 62960 SUB INP/OBS CARE 2/35MIN Diagnoses RLL pneumonia J18.9 (HFpEF) heart failure with preserved ejection fraction I50.30 Acute diarrhea R19.7 UTI (urinary tract infection) N39.0 Acute respiratory failure with hypoxia J96.01 Nausea and vomiting R11.2 Gallstones K80.20 Splenic abscess D73.3 Acute metabolic encephalopathy G93.41 Obesity hypoventilation syndrome E66.2 Chronic right arterial ischemic stroke, MCA (middle cerebral artery) I69.30 History of pulmonary embolism Z86.711 Morbid obesity E66.01 Major depressive disorder, recurrent episode, moderate with anxious distress F33.1 Opioid use disorder, severe, in sustained remission F11.21
[2024-03-27] MEDS: metOLazone 2.5 MG TABLET PO SCH (08:10)
[2024-03-27 08:26] VITALS: BP 111/77; PULSE 77; RESP 20; TEMP 97.7; O2SAT 94
[2024-03-27 09:22] LABS: Calcium 9.5 mg/dl (8.6-10.3); Potassium 3.5 mmol/L (3.5-5.1)
[2024-03-27 09:31] LABS: BUN Creatinine Ratio 14.3 (10-20); Creatinine Clr Calc Pharmacy 129.1 ml/min
--- NOTE | 2024-03-27 17:15 | Discharge Summary ---
Discharge Summary Date of Service March 27, 2024 Principal Dx & Hospital Course #1 = Principal Diagnosis (1) RLL pneumonia: 38-year-old with HFpEF admitted with dyspnea, treated for pneumonia and acute on chronic heart failure this admission and improved CT a/p showed evidence of RLL pneumonia, potentially aspiration pneumonia/pneumonitis MRSA nasal positive, procalcitonin negative. concern for aspiration based on imaging appearance however has no signs or symptoms on bedside swallow eval. Neelima does not have any intrinsic reason to have dysphagia, if aspiration is occurring and may be related to sedating medications such as methadone, hypercarbia, potentially nocturnal. I do not think VFSS will provide any benefit, discussed with speech therapist initially treated with vancomycin because of positive nasal MRSA, pip-tazo, IV doxycycline - changed to oral Augmentin and doxycycline completed 6 days of total antibiotics stopped 1 day early because of the development of severe diarrhea, now resolved - pneumonia seems to have resolved - back on baseline oxygen nasal cannula 2 L (2) (HFpEF) heart failure with preserved ejection fraction: Acute on chronic heart failure preserved ejection fraction last echo - 10/2023 - normal EF based on my experience with Neelima over several admissions I think she does have significant amount of right sided heart failure, unfortunately her RV is not really able to be visualized on echo because of her body habitus treating CARINA/OHS would be the best intervention for this as well as weight loss. she does develop a lot of abdominal symptoms such as nausea vomiting and constipation when she is getting volume overloaded and eventually oral diuretics become ineffective. diuresed with IV Bumex from admission through morning of 03/24 volume status improved. weight has improved from 180 kg down to 167 kg. Last discharge was 165 resumed usual diuretics on discharge. might need increase or PRN dosing. has CHF clinic appointment in two days from now (3) Acute diarrhea: acute diarrhea AM 10 likely antibiotic associated diarrhea. Antibiotics have been stopped prn Imodium, continue probiotic metabolic acidosis related to volume depletion from diarrhea and diuretics, resolved after holding diuretics briefly (4) UTI (urinary tract infection): Although urine cx was negative, CT a/p showed an inflamed bladder, and she had dysuria for several days prior to admission. U/a was suggestive of UTI as well. pneumonia antibiotics will have covered any UTI organisms. a few days prior to discharge she accidentally pulled out her horowitz causing urethral trauma and recurrent dysuria -horowitz was not replaced -pyridium PRN (5) Acute respiratory failure with hypoxia: acute on chronic hypoxic respiratory failure 2nd to acute/chronic HFpEF 2nd to RLL pneumonia resolved back to her chronic baseline 2 L (6) Nausea and vomiting: CT a/p without findings of acute cholecystitis CT a/p shows the splenic abnormality from several years ago but the size of the splenic abnormality continues to get smaller thus this is unlikely to be the source of her symptoms pneumonia may have been playing a role but I think she also has right-sided heart failure and develops abdominal symptoms when volume overloaded. 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 required drainage of this area at that time 2022 - hospitalized [facility] for such - did not require drainage, just IV abx size of the splenic abnormality on imaging today shows gradual reduction in size over the last 2 years (9) Acute metabolic encephalopathy: 2nd to #1, #2 - resolved (10) Obesity hypoventilation syndrome: Obesity hypoventilation syndrome, CARINA she is only using NC O2 at bedtime prior to this admission appreciate Dr Bryant's consult he ordered BiPAP for patient, however she has consistently refused it discussed this with her - she would try nasal cannula but not a facemask due to anxiety and claustrophobia. reviewed PFTs this admission show primarily restrictive lung disease she is agreeable to a trial of CPAP by nasal cannula but we do not have that equipment. 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 this would improve her prognosis from the HFpEF as well as obesity hypoventilation and diabetes Has primary care appt in two days (14) Major depressive disorder, recurrent episode, moderate with anxious distress: Continue sertraline (15) Opioid use disorder, severe, in sustained remission: continue methadone 72mg/day Plan Hypothyroidism: Continue Synthroid; TSH wnl Notes For Next Care Provider CHF clinic: please assess oral diuretics dosing Primary care: please consider GLP-1 agonist for morbid obesity with complications of diabetes, CARINA/OHS with chronic hypoxic and hypercarbic respiratory failure Mom stated she would call sleep clinic and enquire about a home sleep study Admission HPI Per Admitting Provider Neelima is a 38-year-old female with a past medical history of heart failure preserved ejection fraction, obesity hypoventilation syndrome, CARINA, opioid use disorder in remission, bipolar, chronic right arterial ischemia/MCA CVA, history of PE, and recent hospital admission with discharge 03/18/2024 for acute on chron ic respiratory failure due to acute heart failure preserved ejection fraction exacerbation who presents from [place] as a transfer for ICU availability. Patient was reportedly on 100% FiO2 BiPAP maintaining saturations in the low 90s at that time was requested for transfer for ICU services. Michelle seen at the bedside on arrival to the ICU. She reports that she was very weak and shaky, shortly after returning home in the ICU she continued to develop shortness of breath. She also reports she had burning with urination which started after her Horowitz was removed. She had an episode in the morning where she became confused and reportedly poorly responsive in the morning. She reports since returning home she has also had a cough productive for thick sputum, she does not know what color and she does not look at it. She is on home oxygen at night, has been diagnosed with OHS/CARINA but has not had a BiPAP as she has not been able to tolerate a sleep study. Feels she continues to be more short of breath than normal which does worsen with laying flat, has had some increased leg swelling. She endorses feeling feverish with some chills. No chest pain or chest pressure. No nausea/vomiting. No pain at time of assessment. She reports she did no get/take any oral medications this morning/day of admission. Critical meds including methadone/BB/eliquis ordered as one time dose, and continued daily. Medical History: Reviewed Medications: Reviewed Surgical History: Reviewed Family history: Reviewed Allergies: Reviewed Social History: Reviewed Code Status: Full Discharge Exam PHYSICAL EXAMINATION Last 24h vital signs reviewed, see documentation in flowsheet General: awake and alert lying flat on bed HEENT: Normocephalic, atraumatic, pupils round and equal, sclerae anicteric, no conjunctival injection, moist mucus membranes Lungs: nonlabored, breath sounds are distant. Clear to auscultation bilaterally clear anteriorly. No RRW Heart: distant Regular rate and rhythm, no murmurs. No JVD Abdomen: soft nontender nondistended bowel sounds are present Extremities: Warm, dry, well-perfused. only minimal pitting edema at ankles. Neuro: Alert and oriented x 4, face symmetric, moves 4 extremities well Psych: flat affect and normal behavior Discharge Plan Discharge Items Patient Disposition: Home - Self-Care Reason For Visit: RESPIRATORY FAILURE Discharge Diagnosis: Pneumonia, acute on chronic heart failure, antibiotic associated diarrhea, chronic hypoxic and hypercarbic respiratory failure, probable CARINA/OHS Activity: Resume your previous activity Non-emergency contact: Primary Care Provider and Balance And Hairspring Assembler Call non-emergency contact if: you have any medication questions, your symptoms worsen and you have a fever Follow-up/Referrals: Stacey Arce MD [Primary Care Provider] - Margie Malone PA-C [Physician School Examiner] - Diet: Heart Healthy and Low Sodium (2gm) Fluids: 1800ml (7 cups) Addtl Attending Provider Instructions: You were treated for pneumonia You completed antibiotics in the hospital You are having some antibiotic-associated diarrhea -take probiotic for 2-4 weeks or eat live culture daily. You can take imodium as neede for diarrhea. These are available over the counter -seek medical attention if you have ongoing severe diarrhea, especially with abdominal pain or fever -the magnesium supplement can cause diarrhea Follow up Friday as scheduled with primary care and heart failure clinic Please continue working on scheduling a sleep study - its possible they could do a home study for sleep apnea You would greatly benefit from a Bipap however, you've been unable to tolerate face mask. I think CPAP with nasal pillows would provide benefit however. Recommend discontinuing gabapentin. I don't think this is benefiting you very much and it can definitely cause increased edema (swelling) and aggravate your breathing problems by causing oversedation at night. We have not been giving you gabapentin while you've been in the hospital. Likewise, tapering down the clonazepam trazodone and methadone would also help your breathing but I do not know if that is realistic. Weight loss would significantly improve your health including the respiratory failure and heart failure. Talk to your primary care about medications for weight loss (like zepbound/mounjaro for example). You should qualify because you are having severe complications of obesity like CARINA/OHS related respiratory failure and heart failure It was a pleasure taking care of you in the hospital, Agueda Sands MD Addtl Sew Out Operator Provider Instructions: Call your Primary Care doctor if any of the following symptoms or problems start or get worse: * Shortness of breath or difficulty breathing * Wake up at night short of breath * Chest pain * Cough * Swelling of your hands, feet, or legs * More fatigued or tired with your normal activity * Palpitations - sudden fast heart beats WEIGHT * Weigh yourself every morning after using the bathroom. * Use the same scale. * Wear the same amount of clothing. * Write your weight down on a chart. * Call your Primary Care doctor if you gain more than 2-3 pounds in 1-2 days. MEDICATIONS * Use this discharge instruction sheet for medication instructions. * Take your medications at the time your doctor ordered. * Do not skip a dose of your medicines. * If you miss a dose of medicine, take it as soon as possible, but DO NOT DOUBLE A DOSE. * Read your medicine information when you get home. * Know all of the side effects of your medicine. If in doubt, ask your pharmacist * Call your Primary Care doctor's office if you have any side effects. * Be sure all of your doctors know what medicine and herbs you take (including cold, flu, and herbal medicine). Take the following with you to your follow-up doctor appointments: * Weight Chart * Medication List * List of questions Do not drink excessive alcohol, beer or wine. Pending Studies at Discharge: No Stand-Alone Forms: [employer], Smoking Cessation Medications and DC Order Prescriptions: New phenazopyridine [Pyridium] 200 mg Tablet 200 mg PO TID PRN (Reason: urinary pain) Qty: 10 0RF Continued epinephrine 0.3 mg/0.3 mL auto-injector 0.3 mg IM .COMPLEX PRN (Reason: anaphylaxis) Qty: 2 1RF Rx Instructions: 0.3 mg intramuscularly once but repeat dose x1 in 5-15min if needed PRN; A fter first injection, proceed to the ER apixaban 2.5 mg tablet 2.5 mg PO BID Qty: 60 5RF baclofen 10 mg tablet 10 mg PO BID PRN (Reason: muscle stiffness/spasm) Qty: 60 5RF trazodone 50 mg tablet 50 mg PO HS Qty: 30 5RF metoprolol tartrate 50 mg tablet 25 mg PO BID Qty: 30 0RF bumetanide 2 mg tablet 4 mg PO BID Qty: 120 2RF Rx Instructions: take 7-8am each morning and about 3-4pm in the afternoon every day. spironolactone 25 mg tablet 50 mg PO QAM Qty: 60 0RF potassium chloride 20 mEq tablet extended release 40 meq PO BID Qty: 120 5RF (DME) Oxygen Home Liters Per Minute See Rx Instructions .ROUTE .MEDSUPPLY Qty: 1 0RF Rx Instructions: 2 liters NC O2 with sleep. (DME) Portable Oxygen Misc See Rx Instructions .Route Qty: 1 0RF Rx Instructions: As directed O2 concentrator 4L/min E66.2. [facility] levothyroxine 75 mcg tablet 75 mcg PO DAILYBB Qty: 90 1RF cetirizine 10 mg tablet 10 mg PO DAILY Qty: 90 1RF Rx Instructions: Take 1 tablet by mouth once daily famotidine 40 mg tablet 40 mg PO PM Qty: 90 1RF Rx Instructions: Take 1 tablet by mouth in the evening metolazone 2.5 mg tablet See Rx Instructions .ROUTE .COMPLEX Qty: 30 0RF Hold Instructions: Resume on 08/17/23. Dose Instruction: TAKE 1 TABLET BY MOUTH EVERY OTHER DAY Rx Instructions: TAKE 1 TABLET BY MOUTH EVERY OTHER DAY pantoprazole 40 mg tablet,delayed release (DR/EC) 40 mg PO QAM Qty: 90 0RF clonazepam 0.5 mg tablet 0.5 mg PO HS Qty: 30 0RF (DME) diaper,brief,adult,disposable Misc See Rx Instructions .Route Qty: 100 4RF Rx Instructions: Depend Pull-Up Briefs, size 3X (DME) disposable gloves Package See Rx Instructions .Route Qty: 50 3RF Rx Instructions: Size L (DME) Shower Chair Misc See Rx Instructions .Route Qty: 1 0RF Rx Instructions: Shower Bench (DME) Powered Wheelchair Misc See Rx Instructions .Route Qty: 1 0RF Rx Instructions: As directed ICD-10: G81.14, M17.11 (DME) Wheelchair (Manual) Device See Rx Instructions .Route Qty: 1 0RF Rx Instructions: As [id number] Z86.73 (DME) Manual Wheelchair Device See Rx Instructions .Route Qty: 1 0RF Rx Instructions: alycia drive WC please G81.9 sertraline 100 mg tablet 200 mg PO QAM Qty: 180 3RF (DME) Power Wheelchair Device See Rx Instructions .Route Qty: 1 0RF Rx Instructions: As directed G81.14, R26.2 lubiprostone [Amitiza] 24 mcg capsule 24 mcg PO BID Qty: 60 5RF methadone 10 mg Tablet 72 mg PO QAM melatonin 3 mg Tablet 3 mg PO HS aspirin 81 mg Tablet,Chewable 81 mg PO QAM multivitamin with minerals Tablet 1 tab PO QAM diclofenac sodium [Voltaren Arthritis Pain] 1 % Gel 4 g EXT QID PRN (Reason: right knee pain OR back pain) Qty: 1 0RF acetaminophen [Tylenol 8 Hour] 650 mg tablet extended release 650 mg PO Q8H PRN (Reason: fever or pain) Qty: 1 0RF polyethylene glycol 3350 [Miralax] 17 gram powder in packet 17 g PO DAILY PRN (Reason: Constipation) Rx Instructions: you can purchase daily, individual packets OR a bottle; both are [id number]. magnesium oxide 400 mg (241.3 mg magnesium) tablet 400 mg PO HS ketoconazole 2 % cream 1 applic topical BID PRN (Reason: NEEDED) Rx Instructions: apply to face (DME) Hospital Bed Misc See Rx Instructions .Route Rx Instructions: As directed G81.9, I63.411 (DME) Lift Chair Misc See Rx Instructions .Route Rx Instructions: As directed Discontinued gabapentin 600 mg tablet 600 mg PO TID Qty: 90 1RF Discharge Orders: Discharge Order- CHF (Routine); Ordered 10/05/24 Ordered By: Agueda Sands Admission Data Admit Date/Time: 03/20/24 10:45 Attending Provider: Agueda Sands Admit Provider: Kostas Patel Primary Care Provider: Stacey Arce Other Providers: Kostas Patel; [facility] Other Interventions: Discharge Summary Assessment (RN) Last Done: 03/27/24 10:08 Hospital Stay Data Consultations 03/20/24 10:28 Consult Hospitalist Routine 03/20/24 15:22 Consult Patient Rep [Consult Patient Services] Routine Diagnostic Imagining Performed 03/21/24 13:17 CT Abd and Pelvis [CT abd pelvis IV con only] Urgent Pending Results Patient Have Any Pending Studies at Discharge: No Discharge Instructions Given to Patient (Per Discharging Provider) You were treated for pneumonia You completed antibiotics in the hospital You are having some antibiotic-associated diarrhea -take probiotic for 2-4 weeks or eat live culture daily. You can take imodium as neede for diarrhea. These are available over the counter -seek medical attention if you have ongoing severe diarrhea, especially with abdominal pain or fever -the magnesium supplement can cause diarrhea Follow up Friday as scheduled with primary care and heart failure clinic Please continue working on scheduling a sleep study - its possible they could do a home study for sleep apnea You would greatly benefit from a Bipap however, you've been unable to tolerate face mask. I think CPAP with nasal pillows would provide benefit however. Recommend discontinuing gabapentin. I don't think this is benefiting you very much and it can definitely cause increased edema (swelling) and aggravate your breathing problems by causing oversedation at night. We have not been giving you gabapentin while you've been in the hospital. Likewise, tapering down the clonazepam trazodone and methadone would also help your breathing but I do not know if that is realistic. Weight loss would significantly improve your health including the respiratory failure and heart failure. Talk to your primary care about medications for weight loss (like zepbound/mounjaro for example). You should qualify because you are having severe complications of obesity like CARINA/OHS related respiratory failure and heart failure It was a pleasure taking care of you in the hospital, Agueda Sands MD Total Time Total Time Spent Total Time Spent (In Minutes): I personally spent: 35 minutes today on clinical care activities including: reviewing chart notes and vital signs reviewing labs examining and counseling the patient writing orders writing prescriptions, discharge instructions documentation Coding Level of Care Code 50682 INP/OBS DISCH >30 MIN Diagnoses RLL pneumonia J18.9 (HFpEF) heart failure with preserved ejection fraction I50.30 Acute diarrhea R19.7 UTI (urinary tract infection) N39.0 Acute respiratory failure with hypoxia J96.01 Nausea and vomiting R11.2 Gallstones K80.20 Splenic abscess D73.3 Acute metabolic encephalopathy G93.41 Obesity hypoventilation syndrome E66.2 Chronic right arterial ischemic stroke, MCA (middle cerebral artery) I69.30 History of pulmonary embolism Z86.711 Morbid obesity E66.01 Major depressive disorder, recurrent episode, moderate with anxious distress F33.1 Opioid use disorder, severe, in sustained remission F11.21
== END 2024-03-27 13:53 | disposition home or self-care (01) | DRG 291 ==
LOC: 1E 03-20 10:12 → SUATTDRO 03-20 10:45 → 4W 03-20 18:44